=== PATIENT | female | born 1995 | race Caucasian/White ===

== ENCOUNTER 2017-12-30 07:27 | Emergency (ER) | payer OTHER, SELFPAY ==
[2017-12-30] MEDS ORDERED: ETOMIDATE 20 MG/10 ML VIAL IV ONE (07:28)
[2017-12-30] MEDS ORDERED: NA CHLORIDE 0.9% 1,000 ML ONE ×2 (07:34→08:43)
[2017-12-30] MEDS ORDERED: RSI MEDICATION KIT IV ONE (07:35)
[2017-12-30] MEDS ORDERED: MIDAZOLAM HCL 2 MG/2 ML INJ ONE ×4 (07:36→11:16)
[2017-12-30] MEDS ORDERED: ROCURONIUM 50 MG/5 ML VIAL IV ONE (07:39)
--- NOTE | 2017-12-30 08:08 | ER ---
Nurse's Notes [facility] Name: Mitra Melendez Age: 22 yrs Sex: Female : 1995 Arrival Date: 12/30/2017 Time: 07:30 Bed 3 Private MD: Diagnosis: Altered mental status, unspecified;Abuse of non-psychoactive substances; related conditions, unspecified, first trimester;Respiratory failure, unspecified;Elevated white blood cell count;Hypokalemia;Pneumonia due to other specified bacteria-right lower lobe, aspiration Presentation: 12/30 07:30 Presenting complaint: EMS states: Found by PD unresponsive, snoring respirations, blood jl7 coming out of her mouth. Narcan on scene, no response. Appeared to have a seizure on the way over, 2 mg Lorazepam IV administered. Transition of care: patient was not received from another setting of care. Onset of symptoms was December 30, 2017. Care prior to arrival: Medication(s) given: Narcan \\T\\ 2 mg Ativan IV initiated. 20 GA, in the right antecubital area, Glucose check: 141. 07:30 Method Of Arrival: EMS: [facility] 7 07:30 Acuity: ELBERT 1 jl7 10:43 Initial Sepsis Screen: Does the patient meet any 2 criteria? HR > 90 bpm. No. Patient's tw2 initial sepsis screen is negative. Does the patient have a suspected source of infection? No. Patient's initial sepsis screen is negative. 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 - Social history:: Smoking status: unknown Patient uses street drugs, "synthetic marijuana" per mother at bedside at this time. - Family history:: not pertinent. Screenin:43 Abuse screen: Denies threats or abuse. Nutritional screening: No deficits noted. tw2 Tuberculosis screening: No symptoms or risk factors identified. Fall Risk None identified. Assessment: 07:30 General: Appears slender, unkempt, Behavior is unresponsive. Pain: Unable to use pain tw2 scale. Patient is unresponsive. Neuro: Level of Consciousness is unresponsive, Oriented to none. Cardiovascular: Heart tones S1 S2 Capillary refill < 3 seconds. Respiratory: Airway is compromised Respiratory effort is shallow, Respiratory pattern is snoring Sputum is blood streaked, Breath sounds are clear bilaterally. GI: Abdomen is flat, Bowel sounds present X 4 quads. : No signs and/or symptoms were reported regarding the genitourinary system. Derm: Skin is intact, is healthy with good turgor, Skin temperature is warm. 08:37 Reassessment: pt still moving around, agitated, propofol bumped up to 20 mcg/kg at this iw time. will continue to monitor. 09:00 Reassessment: Patient appears in no apparent distress at this time. Patient and/or tw2 family updated on plan of care and expected duration. Pain level reassessed. 10:05 Reassessment: pt appears agitated, see MAR for medications administered, will continue tw2 to monitor. 10:42 Reassessment: Patient appears in no apparent distress at this time. Patient and/or tw2 family updated on plan of care and expected duration. Pain level reassessed. 10:56 Reassessment: pt agitated, provider notified, medicated as ordered. pt pulled OG tube tw2 out, per provider do not replace at this time., will continue to monitor. 11:30 Reassessment: Patient appears in no apparent distress at this time. Patient and/or tw2 family updated on plan of care and expected duration. Pain level reassessed. Vital Signs: 07:30 BP 151 / 90; Pulse 145; Resp 15 S; Pulse Ox 91% on R/A; jl7 07:32 Temp 97.5(A); tw2 08:24 Weight 49.9 kg (R); tw2 08:38 BP 142 / 74; Pulse 119; Resp 20; Pulse Ox 96% on ETT vent; tw2 09:00 BP 111 / 58; Pulse 106; Resp 18; Pulse Ox 100% on 50% FiO2 ETT vent; tw2 09:35 BP 111 / 48; Pulse 111; Resp 18; Pulse Ox 100% on 50% FiO2 ETT vent; tw2 09:50 BP 113 / 51; Pulse 100; Resp 18; Pulse Ox 100% on 50% FiO2 ETT vent; tw2 10:00 BP 136 / 75; Pulse 100; Resp 18; Pulse Ox 100% on 50% FiO2 ETT vent; tw2 10:15 BP 104 / 52; Pulse 98; Resp 18; Pulse Ox 100% on 50% FiO2 ETT vent; tw2 10:39 BP 110 / 74; Pulse 93; Resp 18; Pulse Ox 100% on 50% FiO2 ETT vent; tw2 11:23 BP 126 / 76; Pulse 52; Resp 17; Pulse Ox 100% on 50% FiO2 ETT vent; tw2 08:38 SIMV, rate 14, 500 tidal, 50FIO2 tw2 ED Course: 07:30 Patient arrived in ED. tw2 07:30 Reyes Galeana, RN is Primary Nurse. jl7 07:30 Arm band placed on right wrist. jl7 07:30 Placed in gown. tw2 07:33 Triage completed. jl7 07:44 EKG done, by neurophysiology tech. reviewed by Chico Devi MD. tc 07:46 Chico Devi MD is Attending Physician. vipul 08:00 No provider procedures requiring assistance completed. Maintain EMS IV. Dressing tw2 intact. Good blood return noted. Site clean \\T\\ dry. Gauge \\T\\ site: 20 g RIGHT ac. 08:01 Szymanski cath inserted, using sterile technique, 18 Fr., by az, balloon inflated, to tw2 gravity drainage, urine specimen collected. OG 12 fr inserted by me, confirmed by auscultation, connected to low intermittent suction. 08:06 Asuncion Rosales MD is Hospitalizing Provider. vipul 08:08 Radiology exam delayed due to lab results not completed at this time. (HCG). aa4 08:08 X-ray completed. PT WAS UNRESPONSIVE. jb2 08:09 XRAY Chest (1 view) In Process Unspecified. EDMS 08:17 CT Head C Spine: sheild please In Process Unspecified. EDMS 09:02 transfer Awaiting: report called to Karen Wong RN at [facility]. tw2 09:31 Note: waiting for pt's bladder to be filled through szymanski- nurse to call when ready- hr.aa4 09:55 [address] Trimest Single 1St Fetus In Process Unspecified. EDMS 10:38 One-on-one care X 180 minutes. tw2 11:23 Patient transferred, IV remains in place. tw2 Administered Medications: 07:39 Drug: Versed 4 mg Route: IVP; Site: right antecubital; jl7 08:35 Follow up: Response: No adverse reaction iw 07:40 Drug: Etomidate 20 mg Route: IVP; Site: right antecubital; jl7 08:35 Follow up: Response: No adverse reaction iw 07:40 Drug: Rocuronium 30 mg Route: IVP; Site: right antecubital; jl7 08:36 Follow up: Response: No adverse reaction iw 08:00 Drug: NS 0.9% (30 ml/kg) 30 ml/kg Route: IV; Rate: bolus; Site: right antecubital; tw2 10:36 Follow up: Response: No adverse reaction; IV Status: Completed infusion; IV Intake: tw2 1500ml 08:22 CANCELLED (Duplicate Order): Rocephin - (cefTRIAXone) 1 grams IVPB once over 30 mins; vipul (mix in 50 mL NS) 08:25 Drug: Versed 4 mg Route: IVP; Site: left antecubital; iw 09:03 Follow up: Response: No adverse reaction tw2 08:29 CANCELLED (Duplicate Order): Versed 4 mg IVP once vipul 08:30 Drug: Propofol 5 mcg/kg/min Route: IV; Rate: calculated rate; Site: right antecubital; iw 11:30 Follow up: IV Status: Infusion continued upon transfer jl7 08:49 Drug: Potassium Chloride 20 mEq Route: IV; Rate: per protocol; Site: left antecubital; tw2 10:57 Follow up: Response: No adverse reaction; IV Status: Completed infusion tw2 08:54 Drug: Propofol 100 mg Route: IVP; Site: right antecubital; dm5 10:05 Follow up: Response: No adverse reaction tw2 09:05 Drug: Zosyn 3.375 grams Route: IVPB; Infused Over: 60 mins; Site: left antecubital; tw2 10:07 Follow up: Response: No adverse reaction; IV Status: Completed infusion tw2 09:10 Drug: Thiamine 100 mg Route: IV; Rate: bolus; Site: left antecubital; tw2 09:10 Follow up: Response: No adverse reaction; IV Status: Completed infusion tw2 10:05 Drug: Propofol 60 mg {Note: pt agitated and fighting vent.} Route: IVP; Site: right tw2 antecubital; 10:34 Follow up: Response: No adverse reaction; No change in condition tw2 10:15 Drug: Versed 4 mg Route: IVP; Site: left antecubital; tw2 10:35 Follow up: Response: No adverse reaction; No change in condition tw2 10:15 Drug: Propofol 30 mg Route: IVP; Site: right antecubital; tw2 10:35 Follow up: Response: No adverse reaction; Marked relief of symptoms tw2 10:26 Drug: NS 0.9% with KCl 20 mEq/L 1000 ml Route: IV; Rate: 125 ml/hr; Site: left tw2 antecubital; 11:21 Follow up: IV Status: Infusion continued upon transfer tw2 10:57 Drug: Propofol 30 mg Route: IVP; Site: right antecubital; tw2 11:10 Follow up: Response: No adverse reaction; Marked relief of symptoms tw2 11:20 Drug: Versed 4 mg Route: IVP; Site: left antecubital; tw2 11:22 Follow up: Response: No adverse reaction tw2 11:21 Drug: Propofol 30 mg Route: IVP; Site: right antecubital; tw2 11:22 Follow up: Response: No adverse reaction tw2 Point of Care Testing: Blood Glucose: 07:30 Blood Glucose: 205 mg/dL; jl7 Ranges: Intake: 10:36 IV: 1500ml; Total: 1500ml. tw2 Outcome: 08:08 Decision to Hospitalize by Provider. vipul 08:21 ER care complete, transfer ordered by . vipul 11:23 Transferred by ground EMS to [facility]. tw2 11:23 Condition: stable 11:23 Instructed on the need for transfer. 11:34 Patient left the ED. tw2 Addendum: 01/04/2018 10:42 Addendum: Culture Results: Positive blood culture. Phone call Attempt #1 called [facility] i w was notified that pt was discharged home shortly after being admitted. Signatures: Dispatcher [employer] Naomi Bro, RN RN dm5 Chico Devi MD MD cha Buechter, Jesse jb2 Ladonna Gross RN RN Rebecca Umanzor aa4 Sandra Chatterjee, director electrical engineering EKG Ttc Michelle Polanco RN RN tw2 Reyes Galeana RN RN jl7 Corrections: (The following items were deleted from the chart) 04/23 08:56 08:38 BP 142 / 74; Pulse 119bpm; Resp 20bpm; Pulse Ox 96% ET / Ventilator; SIMV, rate tw2 14, 500 tidal; iw 10:06 09:05 Zosyn 3.375 grams IVPB in left femoral over 60 mins tw2 tw2 11:00 10:56 Reassessment: pt agitated, provider notified, medicated as ordered. will continue tw2 to monitor tw2
--- NOTE | 2017-12-30 08:09 | EDPHYS ---
Physician Documentation [facility] Name: Mitra Melendez Age: 22 yrs Sex: Female : 1995 Arrival Date: 12/30/2017 Time: 07:30 Bed 3 Private MD: ED Physician Chico Devi HPI: 12/30 07:58 This 26 yrs old Female presents to ER via EMS with complaints of Unresponsive.vipul 07:58 The patient presents with confusion, decreased mental status, decreased responsiveness. vipul Onset: The symptoms/episode began/occurred just prior to arrival, this morning. Possible causes: unknown. Associated signs and symptoms: Pertinent positives: nausea. Current symptoms: In the emergency department the patient's symptoms are unchanged from the initial presentation. Patient's baseline: Neuro: alert and fully oriented. Unable to obtain HPI due to obtunded state. 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 - Social history:: Smoking status: unknown Patient uses street drugs, "synthetic marijuana" per mother at bedside at this time. - Family history:: not pertinent. ROS: 08:01 Respiratory: Positive for cough, shortness of breath, airway nprotected. vipul 08:01 Unable to obtain ROS due to obtunded state. 08:12 Eyes: Negative for injury, pain, redness, and discharge. vipul 08:12 ENT: Positive for difficulty handling secretions, difficulty swallowing. 08:12 Cardiovascular: Positive for palpitations. 08:12 Abdomen/GI: Negative for abdominal pain. 08:12 MS/extremity: Negative for acute changes. Exam: 08:01 Head/Face: Normocephalic, atraumatic. Eyes: Pupils equal round and reactive to light, vipul extra-ocular motions intact. Lids and lashes normal. Conjunctiva and sclera are non-icteric and not injected. Cornea within normal limits. Periorbital areas with no swelling, redness, or edema. Neck: Trachea midline, no thyromegaly or masses palpated, and no cervical lymphadenopathy. Supple, full range of motion without nuchal rigidity, or vertebral point tenderness. No Meningismus. Chest/axilla: Normal chest wall appearance and motion. Nontender with no deformity. No lesions are appreciated. Abdomen/GI: Soft, non-tender, with normal bowel sounds. No distension or tympany. No guarding or rebound. No evidence of tenderness throughout. Back: No spinal tenderness. No costovertebral tenderness. Full range of motion. Skin: Warm, dry with normal turgor. Normal color with no rashes, no lesions, and no evidence of cellulitis. MS/ Extremity: Pulses equal, no cyanosis. Neurovascular intact. Full, normal range of motion. 08:01 Cardiovascular: Rate: tachycardic, Rhythm: regular, Pulses: Pulses are 4+ in bilateral radial, brachial, femoral, popliteal, posterior tibial and and dorsalis pedis arteries.. Heart sounds: normal, Edema: is not appreciated, JVD: is not appreciated. Vital Signs: 07:30 BP 151 / 90; Pulse 145; Resp 15 S; Pulse Ox 91% on R/A; jl7 07:32 Temp 97.5(A); tw2 08:24 Weight 49.9 kg (R); tw2 08:38 BP 142 / 74; Pulse 119; Resp 20; Pulse Ox 96% on ETT vent; tw2 09:00 BP 111 / 58; Pulse 106; Resp 18; Pulse Ox 100% on 50% FiO2 ETT vent; tw2 09:35 BP 111 / 48; Pulse 111; Resp 18; Pulse Ox 100% on 50% FiO2 ETT vent; tw2 09:50 BP 113 / 51; Pulse 100; Resp 18; Pulse Ox 100% on 50% FiO2 ETT vent; tw2 10:00 BP 136 / 75; Pulse 100; Resp 18; Pulse Ox 100% on 50% FiO2 ETT vent; tw2 10:15 BP 104 / 52; Pulse 98; Resp 18; Pulse Ox 100% on 50% FiO2 ETT vent; tw2 10:39 BP 110 / 74; Pulse 93; Resp 18; Pulse Ox 100% on 50% FiO2 ETT vent; tw2 11:23 BP 126 / 76; Pulse 52; Resp 17; Pulse Ox 100% on 50% FiO2 ETT vent; tw2 08:38 SIMV, rate 14, 500 tidal, 50FIO2 tw2 Procedures: 08:15 Intubation: Ventilated with 100% NRB prior to procedure. Intubated orally using # 3 vipul Kane blade with 7.5 mm ETT. was successful on first attempt. Ventilated with Ambu bag. Placement verified by CXR, CO2 detector with (+) color change, auscultating bilateral breath sounds, O2 saturation after procedure was 100 %. MDM: 07:46 Patient medically screened. [facility] 08:04 Data reviewed: vital signs, nurses notes, EMS record, lab test result(s), EKG, [facility] radiologic studies, CT scan, plain films. 12/30 07:30 Order name: glucometer results - FOR PT WITH NO ID tw2 12/30 07:46 Order name: Basic Metabolic Panel; Complete Time: 08:40 [facility] 12/30 07:46 Order name: BNP; Complete Time: 08:40 [facility] 12/30 07:46 Order name: CBC with Diff; Complete Time: 09:36 [facility] 12/30 07:46 Order name: Ckmb; Complete Time: 08:40 [facility] 12/30 07:46 Order name: CPK; Complete Time: 08:40 [facility] 12/30 07:46 Order name: LFT's; Complete Time: 08:40 [facility] 12/30 07:46 Order name: Magnesium; Complete Time: 08:40 [facility] 12/30 07:46 Order name: PT-INR; Complete Time: 08:23 [facility] 12/30 07:46 Order name: Ptt, Activated; Complete Time: 08:23 [facility] 12/30 07:46 Order name: Troponin (emerg Dept Use Only); Complete Time: 08:40 [facility] 12/30 07:46 Order name: Urine Drug Screen; Complete Time: 08:40 [facility] 12/30 07:55 Order name: Acetaminophen [facility] 12/30 07:55 Order name: ETOH Level [facility] 12/30 07:46 Order name: XRAY Chest (1 view); Complete Time: 09:36 [facility] 12/30 07:55 Order name: Salicylate [facility] 12/30 07:55 Order name: Blood Culture Adult (2) [facility] 12/30 07:55 Order name: ABG; Complete Time: 09:36 [facility] 12/30 07:56 Order name: Lipase [facility] 12/30 08:00 Order name: CT Head C Spine: sheild please; Complete Time: 09:36 [facility] 12/30 08:04 Order name: Quantitative Hcg [facility] 12/30 08:04 Order name: Abo/rh Typing [facility] 12/30 08:06 Order name: Urine Dipstick--Ancillary (enter results); Complete Time: 08:23 12/30 08:06 Order name: Urine --Ancillary (enter results); Complete Time: 08:23 12/30 09:21 Order name: Manual Differential; Complete Time: 09:36 [facility] 12/30 09:55 Order name: 1St Trimest Single 1St Fetus [facility] 12/30 07:46 Order name: Urine Test (obtain specimen); Complete Time: 10:36 [facility] 12/30 07:46 Order name: EKG; Complete Time: 07:47 [facility] 12/30 07:46 Order name: Cardiac monitoring; Complete Time: 09:42 [facility] 12/30 07:46 Order name: EKG - Nurse/Tech; Complete Time: 09:42 [facility] 12/30 07:46 Order name: IV Saline Lock; Complete Time: 09:42 [facility] 12/30 07:46 Order name: Labs collected and sent; Complete Time: 09:42 [facility] 12/30 07:46 Order name: O2 Per Protocol; Complete Time: 09:42 [facility] 12/30 07:46 Order name: O2 Sat Monitoring; Complete Time: 09:42 [facility] 12/30 07:46 Order name: Urine Dipstick-Ancillary (obtain specimen); Complete Time: 09:42 [facility] 12/30 07:47 Order name: Glucose Level; Complete Time: 07:47 [facility] 12/30 07:47 Order name: Duenas; Complete Time: 08:06 [facility] 12/30 07:47 Order name: NG Tube; Complete Time: 08:06 [facility] 12/30 08:12 Order name: CONS Physician Consult [facility] 12/30 08:12 Order name: CONS Physician Consult [facility] 12/30 08:04 Order name: NPO; Complete Time: 08:06 [facility] Administered Medications: 07:39 Drug: Versed 4 mg Route: IVP; Site: right antecubital; jl7 08:35 Follow up: Response: No adverse reaction iw 07:40 Drug: Etomidate 20 mg Route: IVP; Site: right antecubital; jl7 08:35 Follow up: Response: No adverse reaction iw 07:40 Drug: Rocuronium 30 mg Route: IVP; Site: right antecubital; jl7 08:36 Follow up: Response: No adverse reaction iw 08:00 Drug: NS 0.9% (30 ml/kg) 30 ml/kg Route: IV; Rate: bolus; Site: right antecubital; tw2 10:36 Follow up: Response: No adverse reaction; IV Status: Completed infusion; IV Intake: tw2 1500ml 08:22 CANCELLED (Duplicate Order): Rocephin - (cefTRIAXone) 1 grams IVPB once over 30 mins; vipul (mix in 50 mL NS) 08:25 Drug: Versed 4 mg Route: IVP; Site: left antecubital; iw 09:03 Follow up: Response: No adverse reaction tw2 08:29 CANCELLED (Duplicate Order): Versed 4 mg IVP once vipul 08:30 Drug: Propofol 5 mcg/kg/min Route: IV; Rate: calculated rate; Site: right antecubital; iw 11:30 Follow up: IV Status: Infusion continued upon transfer jl7 08:49 Drug: Potassium Chloride 20 mEq Route: IV; Rate: per protocol; Site: left antecubital; tw2 10:57 Follow up: Response: No adverse reaction; IV Status: Completed infusion tw2 08:54 Drug: Propofol 100 mg Route: IVP; Site: right antecubital; dm5 10:05 Follow up: Response: No adverse reaction tw2 09:05 Drug: Zosyn 3.375 grams Route: IVPB; Infused Over: 60 mins; Site: left antecubital; tw2 10:07 Follow up: Response: No adverse reaction; IV Status: Completed infusion tw2 09:10 Drug: Thiamine 100 mg Route: IV; Rate: bolus; Site: left antecubital; tw2 09:10 Follow up: Response: No adverse reaction; IV Status: Completed infusion tw2 10:05 Drug: Propofol 60 mg {Note: pt agitated and fighting vent.} Route: IVP; Site: right tw2 antecubital; 10:34 Follow up: Response: No adverse reaction; No change in condition tw2 10:15 Drug: Versed 4 mg Route: IVP; Site: left antecubital; tw2 10:35 Follow up: Response: No adverse reaction; No change in condition tw2 10:15 Drug: Propofol 30 mg Route: IVP; Site: right antecubital; tw2 10:35 Follow up: Response: No adverse reaction; Marked relief of symptoms tw2 10:26 Drug: NS 0.9% with KCl 20 mEq/L 1000 ml Route: IV; Rate: 125 ml/hr; Site: left tw2 antecubital; 11:21 Follow up: IV Status: Infusion continued upon transfer tw2 10:57 Drug: Propofol 30 mg Route: IVP; Site: right antecubital; tw2 11:10 Follow up: Response: No adverse reaction; Marked relief of symptoms tw2 11:20 Drug: Versed 4 mg Route: IVP; Site: left antecubital; tw2 11:22 Follow up: Response: No adverse reaction tw2 11:21 Drug: Propofol 30 mg Route: IVP; Site: right antecubital; tw2 11:22 Follow up: Response: No adverse reaction tw2 Point of Care Testing: Blood Glucose: 07:30 Blood Glucose: 205 mg/dL; jl7 Ranges: Critical Glucose Levels:Adult <50 mg/dl or >400 mg/dl <40 mg/dl or >180 mg/dl Disposition: 18 08:21 Transfer ordered to [facility]. Diagnosis are Altered mental status, unspecified, Abuse of non-psychoactive substances, related conditions, unspecified, first trimester, Respiratory failure, unspecified, Elevated white blood cell count, Hypokalemia, Pneumonia due to other specified bacteria - right lower lobe, aspiration. - Reason for transfer: Higher level of care. - Accepting physician is to [facility], [facility]. - Condition is Fair. - Problem is new. - Symptoms have improved. Signatures: Dispatcher [employer] EDMS Naomi Lynch, RN RN dm5 Chico Devi MD MD cha Williams, Irene, RN DANI iw Michelle Polanco RN RN tw2 Reyes Galeana RN RN jl7 Corrections: (The following items were deleted from the chart) 07:47 07:46 URINE DRUG SCREEN+CHEM UR.LAB.BRZ ordered. EDMS EDMS 08:10 07:56 Head C Spine Cap Wo Con+CT.RAD.BRZ ordered. EDMS EDMS 08:22 07:55 Rocephin - (cefTRIAXone) 1 grams IVPB once over 30 mins; (mix in 50 mL NS) vipul ordered. vipul 08 08:24 Versed 4 mg IVP once ordered. tw2 vipul 09:54 08:04 Transvaginal Ob+US.RAD.BRZ ordered. EDMS EDMS 09:55 09:54 Matter Eval Tm 1 ordered. EDMS EDMS
[2017-12-30 08:18] LABS: Absolute Monocytes 1.5 K/uL (0.1-1.3); Absolute Neutrophil 15.9 K/uL (1.8-8.0); Basophils % 0.4 % (0-1.3); Eosinophils % 0.7 % (0-4.4); Lymphocytes % 22.1 % (15.3-44.8); MCH 30.5 pg (27.0-35.0); MCV 94.6 fL (80-100); MPV 9.4 fL (7.6-11.3); Monocytes % 6.7 % (3.3-12.3); RBC Red Blood Cell Count 4.12 M/uL (3.86-4.86)
[2017-12-30 08:21] LABS: Protime INR 0.92
[2017-12-30 08:21] LABS: Urine Blood 1+ (NEG); Urine Glucose NEGATIVE (NEG); Urine Protein 2+ (NEG); Urine Specific Gravity >1.030 (1.005-1.030)
[2017-12-30 08:22] LABS: Glucose Level 222 mg/dL (65-120)
[2017-12-30] MEDS ORDERED: PROPOFOL 1,000 MG/100 ML VIAL IV ONE (08:23)
[2017-12-30 08:28] LABS: ALT/SGPT 27 IU/L (10-60); AST/SGOT 36 IU/L (10-42); Albumin 4.4 g/dL (3.2-5.5); Alkaline Phosphatase 55 IU/L (42-121); BUN Blood Urea Nitrogen 15 mg/dL (6-20); Bilirubin Direct 0.2 mg/dL (0-0.2); Bilirubin Total 1.3 mg/dL (0.3-1.2); Creatine Phosphokinase 63 IU/L (22-269); Magnesium 2.2 mg/dL (1.8-2.5); Protein, Total 7.4 g/dL (6.0-8.3)
[2017-12-30 08:29] LABS: Barbiturates NEGATIVE; Benzodiazepines POSITIVE; Cocaine NEGATIVE; METHAMPHETAM NEGATIVE; Opiates NEGATIVE
[2017-12-30 08:30] LABS: Phencyclidine ND; THC Cannibis ND
[2017-12-30 08:31] LABS: CKMB Creatine Kinase MB 1.5 ng/ml (0.3-4.0)
[2017-12-30 08:32] LABS: Sodium Level 138 mEq/L (135-145)
[2017-12-30 08:33] LABS: Bicarbonate 13 mEq/L (21-31)
--- NOTE | 2017-12-30 08:42 | RAD REPORT ---
EXAM DESCRIPTION: CT - Head C Spine Mpr Wo Con - 12/30/2017 8:17 am CLINICAL HISTORY: Head and neck injury status post fall. Unresponsive COMPARISON: None. TECHNIQUE: Computed axial tomography of the head and cervical spine was obtained. Sagittal and coronal reconstruction was performed. All CT scans are performed using dose optimization technique as appropriate and may include automated exposure control or mA/KV adjustment according to patient size. FINDINGS: An intracranial bleed is not seen. The ventricles are normal in caliber. An extra-axial fl uid collection is not noted. A cervical fracture is not visualized. No dislocation is noted. Endotracheal nasogastric tubes have been placed IMPRESSION: No acute intracranial abnormality is seen. A cervical fracture is not visualized. If the patient continues to have symptoms to suggest intracra nial /spinal cord pathology then MRI would be recommended
[2017-12-30] MEDS ORDERED: KCL 20 MEQ/100 mL IVPB 20 MEQ/100 ML BAG IV ONE (08:43)
[2017-12-30] MEDS ORDERED: THIAMINE 200 MG/2 ML INJ ONE (09:06)
[2017-12-30] MEDS ORDERED: PIPER/TAZO/NS 3.375gm 3.375 GM/100 ML BAG ONE (09:06)
[2017-12-30 09:10] LABS: Arterial Blood Carboxyhemoglob 2.8 % (0-1.5); Blood Gas Oxyhemoglobin 87.1 % (94-97); Blood O2 Saturation 90.4 % (92-98.5)
--- NOTE | 2017-12-30 09:13 | RAD REPORT ---
EXAM DESCRIPTION: [place] Single View12/30/2017 8:11 am CLINICAL HISTORY: Shortness of breath COMPARISON: none FINDINGS: Endotracheal and nasogastric tubes are in good position. The right lung base is hazy. The left lung appears clear. The heart is normal size IMPRESSION: The right lung base is hazy perhaps secondary to aspiration
[2017-12-30 09:21] LABS: Blood Morphology Comment NOT SEEN (NOT SEEN); Platelet Estimate ADEQ
[2017-12-30 09:24] LABS: Lipase 15 U/L (22-51)
[2017-12-30 09:46] LABS: Salicylates Level < 4.0 mg/dl (<30)
--- NOTE | 2017-12-30 10:07 | EKG ---
Test Date: 2017-12-30 Test Time: 07:37:58 Auto Seat Cover Installer: KINSEY MEASUREMENT RESULTS: Intervals: Rate: 119 PA: QRSD: 86 QT: 320 QTc: 450 [place]: P: PA: QRS: 89 T: 65 INTERPRETIVE STATEMENTS: Sinus tachycardia Otherwise normal ECG No previous ECG available for comparison Electronically Signed On 12-30-17 10:06:55 CDT by Roberto Alvarez
[2017-12-30 10:08] LABS: Alcohol Serum/Plasma < 10 mg/dl
[2017-12-30] MEDS ORDERED: NS KCL 20MEQ 1,000 ML IV ONE (10:09)
--- NOTE | 2017-12-30 11:31 | RAD REPORT ---
EXAM DESCRIPTION: US - 1St Trimest Single 1St Fetus - 12/30/2017 10:15 am CLINICAL HISTORY: with abdominal pain. COMPARISON: None. TECHNIQUE: A limited examination was performed to assess for viability. FINDINGS: A single live intrauterine is in transverse presentation. Fuig-rump length crown-rump length 7.9 cm. The placenta is anterior. Amniotic fluid is within normal limits. Cardiac activity is 181 beats per minute. Cervical length measures 3.3 cm. A subchorionic bleed is not seen. A retroplacental hemorrhag e is not noted. A hypoechoic mass is present within the placenta measuring 3 cm. It is vascular. IMPRESSION: 1. A single live intrauterine in transverse presentation. 2. The estimated gestational age 13 weeks 6 days. 3. The amniotic fluid is within normal limits. A subchorionic/retroplacental bleed is not seen. 4. A 3 cm hypoechoic mass within the placenta may represent a chorioangioma 5. It is recommended that the patient have an ultrasound in approximately 5 weeks to reassess the mimi centa. At this time a survey could be obtained.
== END 2017-12-30 11:34 | disposition short-term general hospital (02) ==
LOC: EDBD 07:27 → ER 07:27 → MERGE 07:27 → ER 11:34
PROC: 0BH17EZ Insertion of Endotracheal Airway into Trachea, Via Natural or Artificial Opening (ICD-10-PCS; principal; 2017-12-30)
PROC: 5A1935Z Respiratory Ventilation, Less than 24 Consecutive Hours (ICD-10-PCS; 2017-12-30)
DX: J96.90 Respiratory failure, unspecified, unspecified whether with hypoxia or hypercapnia (principal); F55.8 Abuse of other non-psychoactive substances; J15.8 Pneumonia due to other specified bacteria; R41.82 Altered mental status, unspecified; D72.829 Elevated white blood cell count, unspecified; E87.6 Hypokalemia; Z3A.13 13 weeks gestation of pregnancy
CPT/HCPCS: 31500; 36415; 51702; 70450; 71045; 72125; 76801; 80048; 80076; 80307; 80320; 80329; 81003; 81025; 82550; 82553; 82805; 82962; 83690; 83735; 83880; 84484; 84702; 85025; 85610; 85730; 86900; 86901; 87040; 87205; 93005; 94002; 99291; J2250; J2543; J3411; J7030

== ENCOUNTER → 2018-02-26 | Day surgery (SDC) | payer OTHER ==
[~2018-02-26] MED LIST: BUPIVACAINE 0.5% PF 10 ML VIAL ONE; CEFAZOLIN/SWI 1gm 1 GM/10 ML SYR ONE; LIDOCAINE 1% MPF 5 ML VIAL ONE; MUPIROCIN 2% OINT 22GM TUBE TOP ONE; PROPOFOL 200 MG/20 ML VIAL IV ONE; Ringers Lactate 1,000 ML IV ONE
[2018-02-26 08:11] LABS: Absolute Lymphocytes (CBC) 1.3 K/uL (0.7-4.9); Absolute Monocytes 0.4 K/uL (0.1-1.3); Absolute Neutrophil 7.9 K/uL (1.8-8.0); Basophils % 0.2 % (0-1.3); Eosinophils % 1.7 % (0-4.4); Hematocrit 39.7 % (36.0-45.0); Lymphocytes % 13.4 % (15.3-44.8); MCH 30.7 pg (27.0-35.0); MCV 91.6 fL (80-100); MPV 9.1 fL (7.6-11.3); Monocytes % 3.8 % (3.3-12.3); RBC Red Blood Cell Count 4.33 M/uL (3.86-4.86)
[2018-02-26 08:14] LABS: BUN Blood Urea Nitrogen 14 mg/dL (7-18); Bicarbonate 23 mmol/L (21-32); Glucose Level 80 mg/dL (74-106); Potassium 3.8 mmol/L (3.5-5.1); Sodium Level 138 mmol/L (136-145)
--- NOTE | 2018-02-26 09:23 | P.BOP ---
Preoperative diagnosis: cellulitis, abscess left 4th finger Postoperative diagnosis: same Primary procedure: Incision and drainage with subQ debridement of left 4th finger abscess Estimated blood loss: 2cc Specimen: culture Findings: as above Anesthesia: MAC Complications: None Transferred to: Recovery Room Condition: Good
--- NOTE | 2018-02-26 20:02 | OP ---
Date of Procedure: 02/26/2018 Surgeon: Ilir Moses MD Preoperative Diagnosis: Cellulitis and abscess of left 4th finger. Postoperative Diagnosis: Cellulitis and abscess of left 4th finger. Procedure: Incision and drainage with subcutaneous debridement of a left 4th finger abscess about 2 x 2 cm. Estimated Blood Loss: Less than 2 cc. Specimen: Devitalized tissue and culture. Anesthesia: Sedation plus local anesthetic. Indications: This is the case of a 22-year-old patient with cellulitis of the left finger. She stat es, she was biting in that area, eventually developed this redness that is not improving and getting worse. The patient is 23 weeks . The area is tender, so we offered her incision and drainag e and debridement of the abscess with benefits and risks including, but are not limited to infection, bleeding, damage to adjacent structures, anesthesia complication, nonhealing wound, TN, and even jack th. She also understands this may not relieve any symptoms. She might need more than one surgical i ntervention. She understands she will require wound care. She has to keep this area clean until hea led, not putting this in dirty aguilar, only running water. She is also advised to discuss this case with her brick tosser. She is going to receive the Ultracet. She was advised the importance of cont rol over that Ultracet since she is going to be tender, and then after that, she can use just regular Tylenol. Once again, she was advised on this by the brick tosser. She understood and signed a cons ent. Description Of Procedure: The patient was brought to the operating room, placed in supine position. Anesthesia was done without complication. A time-out was called. Left hand was prepped and draped in usual sterile fashion. Using a knife and Bovie cauterizer, we proceeded to remove all the area of devitalized tissue that led us access into an abscess. The area was irrigated. Loculations were op ened and drained. Bone was not exposed. Tendon was not exposed. Area was irrigated. Hemostasis wa s obtained. Cultures previously obtained were sent. The area was covered with a wet-to-dry dressing . The patient tolerated the procedure well. The patient was sent to recovery in stable condition. YUMIKO/LADY Voice ID: [id number] Report ID: [id number]
--- NOTE | 2018-02-26 20:14 | DS ---
Diagnosis: Abscess and cellulitis of the left 4th finger. Procedure: Incision and drainage and subcutaneous debridement of the left 4th finger abscess. Disposition: Home. Activity: As tolerated. No heavy lifting. Followup: Follow up in my office in 1 week. Call for appointment at [phone]. Medications: Include Ultracet q.4 hours p.r.n. pain, Bactroban to the area twice a day. Discharge Instructions: She was advised to keep the area clean at all time, only running water to pu t in that finger, not just put in this on dirty water. She also understands the importance of narcot ics. She is going to be given Ultracet because of the pain, but trying to minimize the use of this i f possible. The patient's family will be helping with the dressing changes. Follow up in my office in 1 week. EARNEST Voice ID: [id number] Report ID: [id number]
== END | disposition home or self-care (01) ==
LOC: OR 07:28
PROVIDERS: ATTEND Surgery
PROC: 0JBK0ZZ Excision of Left Hand Subcutaneous Tissue and Fascia, Open Approach (ICD-10-PCS; 2018-02-26)
PROC: 0H9GXZZ Drainage of Left Hand Skin, External Approach (ICD-10-PCS; principal; 2018-02-26 09:15)
DX: L02.512 Cutaneous abscess of left hand (principal); L03.012 Cellulitis of left finger
CPT/HCPCS: 36415; 80048; 85025; 87070; 87075; 87205; 88304; 88305; J0690

== ENCOUNTER 2018-06-03 16:49 | Emergency (ER) | payer OTHER ==
--- OUTSIDE RECORDS SUMMARY | 2018-06-03 16:51 | XMS REPORT ---
:1995 Author Organization eClinicalWorks Care Team Providers Name Role Phone Reina Mitchellh Provider Role Unavailable Allergies, Adverse Reactions, Alerts Substance Reaction Event Type N.K.D.A. Info Not Available Non Drug Allergy Problems Problem Type Condition Code Onset Dates Condition Status Assessment 23 weeks gestation of Z3A.23 Active Assessment Paronychia of finger of left hand L03.012 Active Medications Medication Code System Code Instructions Start Date End Date Status Dosage [facility] [address] - Orally Once a Active 1 tablet 1 day Results No Known Results Summary Purpose eClinicalWorks Submission
[2018-06-03] MEDS ORDERED: ALBUTEROL 2.5 MG/3 ML NEB SOL ONE (17:33)
[2018-06-03] MEDS ORDERED: predniSONE 20 MG TAB ONE (17:33)
--- NOTE | 2018-06-03 17:55 | ER ---
Nurse's Notes [facility] Name: Mitra Melendez Age: 22 yrs Sex: Female : 1995 Arrival Date: 06/03/2018 Time: 16:51 Bed Treatment Private MD: Frankie De La Vega S Diagnosis: Bronchitis, not specified as acute or chronic Presentation: 06/03 17:03 Presenting complaint: Patient states: cough and sore throat x 2 days. 36 weeks hb . Transition of care: patient was not received from another setting of care. Onset of symptoms was June 02, 2018. Risk Assessment: Do you want to hurt yourself or someone else? Patient reports no desire to harm self or others. 17:03 Method Of Arrival: Ambulatory hb 17:03 Acuity: ELBERT 4 hb 18:17 Initial Sepsis Screen: Does the patient meet any 2 criteria? No. Patient's initial aj sepsis screen is negative. Does the patient have a suspected source of infection? No. Patient's initial sepsis screen is negative. Care prior to arrival: None. Historical: - Allergies: 17:05 No Known Allergies; hb - Home Meds: 17:05 Vitamin Oral [Active]; hb - PMHx: 17:05 None; hb - PSHx: 17:05 None; hb - Immunization history:: Adult Immunizations up to date. - Social history:: Smoking status: Patient uses tobacco products, smokes one-half pack cigarettes per day. - Ebola Screening: : No symptoms or risks identified at this time. Screenin:14 Abuse screen: Denies threats or abuse. Denies injuries from another. Nutritional aj screening: No deficits noted. Tuberculosis screening: No symptoms or risk factors identified. Fall Risk None identified. Assessment: 17:14 General: Appears in no apparent distress. comfortable, Behavior is calm, cooperative, aj appropriate for age. Pain: Denies pain. Neuro: Level of Consciousness is awake, alert, obeys commands, Oriented to person, place, time, situation, Appropriate for age. Respiratory: Reports cough that is Airway is patent Respiratory effort is even, unlabored, Respiratory pattern is regular, symmetrical, Breath sounds are coarse bilaterally. Breath sounds with crackles bilaterally. Breath sounds with wheezes bilaterally. EENT: Throat is clear Reports pain when swallowing. Derm: Skin is intact, is healthy with good turgor, Skin is pink, warm \T\ dry. normal. 18:15 Reassessment: Patient appears in no apparent distress at this time. No changes from aj previously documented assessment. Patient and/or family updated on plan of care and expected duration. Pain level reassessed. Patient is alert, oriented x 3, equal unlabored respirations, skin warm/dry/pink. Patient denies pain at this time. Patient states feeling better. Patient states symptoms have improved. Vital Signs: 17:04 BP 122 / 78; Pulse 113; Resp 16; Temp 98; Pulse Ox 97% on R/A; Weight 79.38 kg; Height hb 5 ft. 7 in. (170.18 cm); 18:03 BP 125 / 76; Pulse 111; Resp 20; Pulse Ox 99% on R/A; aj 17:04 Body Mass Index 27.41 (79.38 kg, 170.18 cm) hb ED Course: 16:51 Patient arrived in ED. sb2 16:52 Frankie De La Vega MD is Private Physician. sb2 16:53 Guerline Rollins FNP-C is [facility]. kb 16:53 Da Chavarria MD is Attending Physician. kb 17:04 Triage completed. hb 17:04 Arm band placed on right wrist. hb 17:09 Gavin Resendiz, RN is Primary Nurse. la1 17:09 Rebecca Samson, DANI is Primary Nurse. aj 17:14 Patient has correct armband on for positive identification. aj 17:14 No provider procedures requiring assistance completed. Patient did not have IV access aj during this emergency room visit. Administered Medications: 17:30 Drug: predniSONE 40 mg Route: PO; aj 18:18 Follow up: Response: Wheezing diminished aj 17:30 Drug: Albuterol 2.5 mg Route: Inhalation; aj Outcome: 17:54 Discharge ordered by MD. kb 18:17 Discharged to home ambulatory. aj 18:17 Condition: good 18:17 Discharge instructions given to patient, Instructed on discharge instructions, follow up and referral plans. Demonstrated understanding of instructions, follow-up care, medications, Prescriptions given X 2. 18:19 Patient left the ED. aj Signatures: Guerline Rollins FNP-C FNP-Rebecca Mendoza RN RN Gavin Resendiz RN RN la1 Denia Mcelroy RN RN Honey Del Valle sb2 Corrections: (The following items were deleted from the chart) 17:04 17:03 Presenting complaint: Patient states: cough and sore throat x 2 days hb hb 18:17 17:14 Respiratory: Reports cough that is Airway is patent Respiratory effort is even, aj unlabored, Respiratory pattern is regular, symmetrical, Breath sounds are clear bilaterally. aj
--- NOTE | 2018-06-03 17:55 | EDPHYS ---
Physician Documentation [facility] Name: Mitra Melendez Age: 22 yrs Sex: Female : 1995 Arrival Date: 06/03/2018 Time: 16:51 Bed Treatment Private MD: Frankie De La Vega S ED Physician Da Chavarria HPI: 06/03 17:08 This 22 yrs old Female presents to ER via Ambulatory with complaints of Sore kb Throat, Ear Pain. 17:08 The patient presents with sore throat. The patient describes throat pain as constant. kb Onset: The symptoms/episode began/occurred 2 day(s) ago. Severity of symptoms: At their worst the symptoms were moderate, in the emergency department the symptoms are unchanged. Modifying factors: The symptoms are alleviated by nothing, the symptoms are aggravated by swallowing, Patient's oral intake status: good. Associated signs and symptoms: Pertinent positives: cough, rhinorrhea, Sore throat. The patient has not experienced similar symptoms in the past. The patient has not recently seen a physician. Historical: - Allergies: 17:05 No Known Allergies; hb - Home Meds: 17:05 Vitamin Oral [Active]; hb - PMHx: 17:05 None; hb - PSHx: 17:05 None; hb - Immunization history:: Adult Immunizations up to date. - Social history:: Smoking status: Patient uses tobacco products, smokes one-half pack cigarettes per day. - Ebola Screening: : No symptoms or risks identified at this time. ROS: 17:07 Neck: Negative for injury, pain, and swelling, Cardiovascular: Negative for chest pain, kb palpitations, and edema, Abdomen/GI: Negative for abdominal pain, nausea, vomiting, diarrhea, and constipation, Back: Negative for injury and pain, : Negative for injury, bleeding, discharge, and swelling, MS/Extremity: Negative for injury and deformity, Skin: Negative for injury, rash, and discoloration, Neuro: Negative for headache, weakness, numbness, tingling, and seizure. 17:07 Constitutional: Positive for fatigue, malaise, Negative for body aches, chills, fever, poor PO intake, weight loss. 17:07 ENT: Positive for rhinorrhea, sinus congestion, sore throat. 17:07 Respiratory: Positive for cough, Negative for dyspnea on exertion, hemoptysis, orthopnea, pleurisy, shortness of breath, sputum production, wheezing. Exam: 17:07 Constitutional: This is a well developed, well nourished patient who is awake, alert, kb and in no acute distress. Head/Face: Normocephalic, atraumatic. ENT: Nares patent. No nasal discharge, no septal abnormalities noted. Tympanic membranes are normal and external auditory canals are clear. Oropharynx with no redness, swelling, or masses, exudates, or evidence of obstruction, uvula midline. Mucous membranes moist. Neck: Trachea midline, no thyromegaly or masses palpated, and no cervical lymphadenopathy. Supple, full range of motion without nuchal rigidity, or vertebral point tenderness. No Meningismus. Chest/axilla: Normal chest wall appearance and motion. Nontender with no deformity. No lesions are appreciated. Cardiovascular: Regular rate and rhythm with a normal S1 and S2. No gallops, murmurs, or rubs. Normal PMI, no JVD. No pulse deficits. Abdomen/GI: Soft, non-tender, with normal bowel sounds. No distension or tympany. No guarding or rebound. No evidence of tenderness throughout. Back: No spinal tenderness. No costovertebral tenderness. Full range of motion. Skin: Warm, dry with normal turgor. Normal color with no rashes, no lesions, and no evidence of cellulitis. MS/ Extremity: Pulses equal, no cyanosis. Neurovascular intact. Full, normal range of motion. Neuro: Awake and alert, GCS 15, oriented to person, place, time, and situation. Cranial nerves II-XII grossly intact. Motor strength 5/5 in all extremities. Sensory grossly intact. Cerebellar exam normal. Normal gait. 17:16 Respiratory: the patient does not display signs of respiratory distress, Respirations: kb normal, Breath sounds: wheezing: that is moderate, is heard diffusely. Vital Signs: 17:04 BP 122 / 78; Pulse 113; Resp 16; Temp 98; Pulse Ox 97% on R/A; Weight 79.38 kg; Height hb 5 ft. 7 in. (170.18 cm); 18:03 BP 125 / 76; Pulse 111; Resp 20; Pulse Ox 99% on R/A; aj 17:04 Body Mass Index 27.41 (79.38 kg, 170.18 cm) hb MDM: 17:00 Patient medically screened. kb 17:07 Data reviewed: vital signs, nurses notes. Data interpreted: Pulse oximetry: on room air kb is 97 %. Interpretation: normal. 17:54 Counseling: I had a detailed discussion with the patient and/or guardian regarding: the kb historical points, exam findings, and any diagnostic results supporting the discharge/admit diagnosis, lab results, the need for outpatient follow up, a family practitioner, to return to the emergency department if symptoms worsen or persist or if there are any questions or concerns that arise at home. 06/03 17:06 Order name: Flu kb 06/03 17:06 Order name: Strep kb 06/03 17:57 Order name: Throat Culture EDMS Administered Medications: 17:30 Drug: predniSONE 40 mg Route: PO; aj 18:18 Follow up: Response: Wheezing diminished aj 17:30 Drug: Albuterol 2.5 mg Route: Inhalation; aj Disposition: 06/03/18 17:54 Discharged to Home. Impression: Bronchitis, not specified as acute or chronic. - Condition is Stable. - Discharge Instructions: Acute Bronchitis, [id number]. - Prescriptions for Prednisone 20 mg Oral Tablet - take 1 tablet by ORAL route once daily for 5 days; 5 tablet. Albuterol Sulfate 90 mcg/actuation - inhale 1-2 puff by INHALATION route every 4-6 hours; 1 Inhaler. - Medication Reconciliation Form, Thank You Letter, Antibiotic Education, Prescription Opioid Use form. - Follow up: Emergency Department; When: As needed; Reason: Worsening of condition. Follow up: Private Physician; When: 2 - 3 days; Reason: Recheck today's complaints, Continuance of care, Re-evaluation by your physician. Addendum: 06/07/2018 16:55 Co-signature as Attending Physician, Da Chavarria MD. g s Signatures: Dispatcher [employer] EDWI Guerline Rollins, LESLY CLEMENT-Rebecca Mendoza RN RN aj Baxter, Heather, RN RN hb Starr, Gregory, MD MD gs Corrections: (The following items were deleted from the chart) 06/03 17:17 17:07 Constitutional: This is a well developed, well nourished patient who is awake, kb alert, and in no acute distress. Head/Face: Normocephalic, atraumatic. ENT: Nares patent. No nasal discharge, no septal abnormalities noted. Tympanic membranes are normal and external auditory canals are clear. Oropharynx with no redness, swelling, or masses, exudates, or evidence of obstruction, uvula midline. Mucous membranes moist. Neck: Trachea midline, no thyromegaly or masses palpated, and no cervical lymphadenopathy. Supple, full range of motion without nuchal rigidity, or vertebral point tenderness. No Meningismus. Chest/axilla: Normal chest wall appearance and motion. Nontender with no deformity. No lesions are appreciated. Cardiovascular: Regular rate and rhythm with a normal S1 and S2. No gallops, murmurs, or rubs. Normal PMI, no JVD. No pulse deficits. Respiratory: Lungs have equal breath sounds bilaterally, clear to auscultation and percussion. No rales, rhonchi or wheezes noted. No increased work of breathing, no retractions or nasal flaring. Abdomen/GI: Soft, non-tender, with normal bowel sounds. No distension or tympany. No guarding or rebound. No evidence of tenderness throughout. Back: No spinal tenderness. No costovertebral tenderness. Full range of motion. Skin: Warm, dry with normal turgor. Normal color with no rashes, no lesions, and no evidence of cellulitis. MS/ Extremity: Pulses equal, no cyanosis. Neurovascular intact. Full, normal range of motion. Neuro: Awake and alert, GCS 15, oriented to person, place, time, and situation. Cranial nerves II-XII grossly intact. Motor strength 5/5 in all extremities. Sensory grossly intact. Cerebellar exam normal. Normal gait. kb 18:19 17:54 06/03/2018 17:54 Discharged to Home. Impression: Bronchitis, not specified as aj acute or chronic. Condition is Stable. Discharge Instructions: Acute Bronchitis, [id number]. Prescriptions for Prednisone 20 mg Oral Tablet - take 1 tablet by ORAL route once daily for 5 days; 5 tablet, Albuterol Sulfate 90 mcg/actuation - inhale 1-2 puff by INHALATION route every 4-6 hours; 1 Inhaler. and Forms are Medication Reconciliation Form, Thank You Letter, Antibiotic Education, Prescription Opioid Use. Follow up: Emergency Department; When: As needed; Reason: Worsening of condition. Follow up: Private Physician; When: 2 - 3 days; Reason: Recheck today's complaints, Continuance of care, Re-evaluation by your physician. kb
== END 2018-06-03 18:19 | disposition home or self-care (01) ==
LOC: ER 16:49
DX: J40 Bronchitis, not specified as acute or chronic (principal); F17.210 Nicotine dependence, cigarettes, uncomplicated
CPT/HCPCS: 87070; 87081; 87804; 99284; J7512

== ENCOUNTER 2019-02-08 09:55 | Emergency (ER) | payer OTHER, SELFPAY ==
--- OUTSIDE RECORDS SUMMARY | 2019-02-08 09:57 | XMS REPORT ---
:1995 [facility] Address [address] [place] [address] Dr. [place] [address] [place] [id number] Care Team Providers Name Role Phone Unavailable Unavailable Unavailable Problems This patient has no known problems. Allergies, Adverse Reactions, Alerts This patient has no known allergies or adverse reactions. Medications This patient has no known medications.
--- OUTSIDE RECORDS SUMMARY | 2019-02-08 09:57 | XMS REPORT ---
[...] Instructions Start Date End Date Status Dosage [facility] [address] - Orally Once a Active 1 tablet 1 day Results No Known Results Summary Purpose eClinicalWorks Submission
[2019-02-08] MEDS ORDERED: IBUPROFEN 400 MG TAB ONE (10:41)
[2019-02-08] MEDS ORDERED: DEXAMETHASONE 10 MG/ML VIAL ONE (10:41)
--- NOTE | 2019-02-08 11:15 | ER ---
Nurse's Notes [facility] Name: Mitra Melendez Age: 23 yrs Sex: Female : 1995 Arrival Date: 02/08/2019 Time: 09:57 Bed 12 Private MD: Diagnosis: Acute pharyngitis Presentation: 02/08 10:03 Presenting complaint: Patient states: sore throat and fever that began 4 days ago. ss Transition of care: patient was not received from another setting of care. Onset of symptoms was February 05, 2019. Risk Assessment: Do you want to hurt yourself or someone else? Patient reports no desire to harm self or others. Initial Sepsis Screen: Does the patient meet any 2 criteria? No. Patient's initial sepsis screen is negative. Does the patient have a suspected source of infection? No. Patient's initial sepsis screen is negative. Care prior to arrival: None. 10:03 Method Of Arrival: Ambulatory ss 10:03 Acuity: ELBERT 4 ss SOFTWARE CLERK: 10:05 LMP N/A - Pt reports irregular mensus since taking Zoloft, but believes she had a ss period 1 month ago and is due for the next cycle any day now Historical: - Allergies: 10:05 No Known Allergies; ss - Home Meds: 10:05 Zoloft Oral [Active]; ss - PMHx: 10:05 Depression; ss - PSHx: 10:05 None; ss - Immunization history:: Adult Immunizations up to date. - Social history:: Smoking status: Patient uses tobacco products, smokes one pack cigarettes per day. - Ebola Screening: : Patient denies exposure to infectious person Patient denies travel to an Ebola-affected area in the 21 days before illness onset. Screenin:06 Abuse screen: Denies threats or abuse. Denies injuries from another. Nutritional ss screening: No deficits noted. Tuberculosis screening: Never had TB. Fall Risk None identified. Assessment: 10:06 General: Appears in no apparent distress. comfortable, Behavior is calm, cooperative, ss Reports fever for > 3 days, feeling ill for > 3 days. Pain: Complains of pain in throat Pain currently is 8 out of 10 on a pain scale. Quality of pain is described as aching, Pain began 4 days ago Is continuous. Neuro: Level of Consciousness is awake, alert, obeys commands, Oriented to person, place, time, situation. Cardiovascular: Capillary refill < 3 seconds is brisk in bilateral fingers. Respiratory: Airway is patent Respiratory effort is even, unlabored, Respiratory pattern is regular, symmetrical, Breath sounds are clear bilaterally. Denies cough, shortness of breath labored breathing. GI: Patient currently denies abdominal pain, diarrhea, nausea, vomiting. : No signs and/or symptoms were reported regarding the genitourinary system. Denies burning with urination, urinary frequency. EENT: Nares are clear Oral mucosa is moist. Throat is reddened. Derm: Skin is intact, is healthy with good turgor, Skin is dry, Skin is pink, warm \\T\\ dry. normal. Musculoskeletal: Circulation, motion, and sensation intact. Range of motion: intact in all extremities, Swelling absent. 11:02 Reassessment: strep swab recollected per livestock laborer as initial sample was reading ss "interference". Pt verbalizes understanding reasoning behind obtaining additional sample. Vital Signs: 10:05 BP 108 / 67; Pulse 85; Resp 16; Temp 97.9(TE); Pulse Ox 100% on R/A; Weight 76.2 kg; ss Height 5 ft. 7 in. (170.18 cm); Pain 8/10; 10:05 Body Mass Index 26.31 (76.20 kg, 170.18 cm) ED Course: 09:57 Patient arrived in ED. tw3 09:58 Guicho Long PA is PHCP. [facility] 09:58 Chico Devi MD is Attending Physician. [facility] 10:04 Triage completed. ss 10:05 Arm band placed on right wrist. ss 10:06 Patient has correct armband on for positive identification. Bed in low position. Call ss light in reach. 10:24 Samira Lewsi, DANI is Primary Nurse. ss 11:32 No provider procedures requiring assistance completed. Patient did not have IV access ss during this emergency room visit. Administered Medications: 10:31 Drug: Dexamethasone 10 mg Route: IM; Site: right deltoid; ss 11:17 Follow up: Response: No adverse reaction ss 10:31 Drug: Ibuprofen 800 mg Route: PO; ss 11:04 Follow up: Response: No adverse reaction; No adverse reaction, patient reports minimal ss decrease in pain Outcome: 11:15 Discharge ordered by . jmm 11:32 Discharged to home ambulatory. 11:32 Condition: good 11:32 Discharge instructions given to patient, Instructed on discharge instructions, follow up and referral plans. medication usage, Demonstrated understanding of instructions, follow-up care, medications, Prescriptions given X 1. 11:33 Patient left the ED. Signatures: Guicho Long PA PA jmm Smirch, Shelby, DANI RN Tutu, Mary tw3
--- NOTE | 2019-02-08 11:15 | EDPHYS ---
Physician Documentation [facility] Name: Mitra Melendez Age: 23 yrs Sex: Female : 1995 Arrival Date: 02/08/2019 Time: 09:57 Bed 12 Private MD: ED Physician Chico Devi HPI: 02/08 10:24 This 23 yrs old Female presents to ER via Ambulatory with complaints of Sore jmm Throat. 10:24 The patient presents with sore throat. The patient describes throat pain as raw. Onset: jmm The symptoms/episode began/occurred gradually, 4 day(s) ago. Associated signs and symptoms: Pertinent positives: fever. This is a 23 year old female with a history of depression that presents to the ED with complaints of sore throat and fever beginning 4 days ago. Denies vomiting, denies shortness of breath. . 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 - Social history:: Smoking status: Patient uses tobacco products, smokes one pack cigarettes per day. - Ebola Screening: : Patient denies exposure to infectious person Patient denies travel to an Ebola-affected area in the 21 days before illness onset. ROS: 10:24 Eyes: Negative for injury, pain, redness, and discharge. jmm 10:24 Cardiovascular: Negative for chest pain, palpitations, and edema, Respiratory: Negative for shortness of breath, cough, wheezing, and pleuritic chest pain, Abdomen/GI: Negative for abdominal pain, nausea, vomiting, diarrhea, and constipation. 10:24 Constitutional: Positive for fever. 10:24 ENT: Positive for sore throat. 10:24 All other systems are negative. Exam: 10:24 Constitutional: This is a well developed, well nourished patient who is awake, alert, jmm and in no acute distress. Head/Face: atraumatic. Eyes: EOMI, no conjunctival erythema appreciated 10:24 Cardiovascular: Regular rate and rhythm. No edema appreciated Respiratory: Normal respirations, no respiratory distress appreciated Abdomen/GI: Non distended, soft Back: Normal ROM Skin: General appearance color normal MS/ Extremity: Moves all extremities, no obvious deformities appreciated, no edema noted to the lower extremities Neuro: Awake and alert, normal gait 10:24 ENT: Posterior pharynx: Uvula: midline, erythema, that is moderate, peritonsillar mass, is not appreciated. 10:24 Neck: Lymph nodes: lymphadenopathy is appreciated, anterior cervical nodes. Vital Signs: 10:05 BP 108 / 67; Pulse 85; Resp 16; Temp 97.9(TE); Pulse Ox 100% on R/A; Weight 76.2 kg; ss Height 5 ft. 7 in. (170.18 cm); Pain 8/10; 10:05 Body Mass Index 26.31 (76.20 kg, 170.18 cm) ss MDM: 10:07 Patient medically screened. vipul 11:13 Data reviewed: vital signs, nurses notes. Counseling: I had a detailed discussion with emerson the patient and/or guardian regarding: the historical points, exam findings, and any diagnostic results supporting the discharge/admit diagnosis, lab results, the need for outpatient follow up, to return to the emergency department if symptoms worsen or persist or if there are any questions or concerns that arise at home. ED course: Patient is alert and non toxic in appearance in the ED. 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 Patient advised to follow up with pcp and otherwise given strict return precautions. Patient understood and agrees with the plan of care. . 02/08 10:18 Order name: Strep; Complete Time: 11:12 02/08 11:12 Order name: Throat Culture EDID 02/08 10:52 Order name: Labs collected and sent; Complete Time: 10:59 bd Administered Medications: 10:31 Drug: Dexamethasone 10 mg Route: IM; Site: right deltoid; 11:17 Follow up: Response: No adverse reaction ss 10:31 Drug: Ibuprofen 800 mg Route: PO; 11:04 Follow up: Response: No adverse reaction; No adverse reaction, patient reports minimal ss decrease in pain Disposition: 02/09 07:37 Co-signature as Attending Physician, Chico Devi MD I agree with the assessment and vipul plan of care. Disposition: 02/08/19 11:15 Discharged to Home. Impression: Acute pharyngitis. - Condition is Stable. - Discharge Instructions: Pharyngitis. - Prescriptions for Amoxicillin 875 mg Oral Tablet - take 1 tablet by ORAL route every 12 hours for 10 days; 20 tablet. - Medication Reconciliation Form, Thank You Letter, Antibiotic Education, Prescription Opioid Use form. - Follow up: Private Physician; When: 2 - 3 days; Reason: Recheck today's complaints, Continuance of care, Re-evaluation by your physician. Signatures: Dispatcher [employer] EDMS Jie Martinez Corey, MD MD cha Mickail, Joel, PA PA Samira Mccann, DANI RN ss Corrections: (The following items were deleted from the chart) 02/08 11:33 11:15 02/08/2019 11:15 Discharged to Home. Impression: Acute pharyngitis. Condition is ss Stable. Forms are Medication Reconciliation Form, Thank You Letter, Antibiotic Education, Prescription Opioid Use. Follow up: Private Physician; When: 2 - 3 days; Reason: Recheck today's complaints, Continuance of care, Re-evaluation by your physician. emerson
== END 2019-02-08 11:33 | disposition home or self-care (01) ==
LOC: ER 09:55
DX: J02.9 Acute pharyngitis, unspecified (principal); F32.9 Major depressive disorder, single episode, unspecified; F17.210 Nicotine dependence, cigarettes, uncomplicated
CPT/HCPCS: 87070; 87081; 96372; 99283; J1100

== ENCOUNTER 2020-02-11 14:52 | Emergency (ER) | payer MEDICAID, SELFPAY ==
--- OUTSIDE RECORDS SUMMARY | 2020-02-11 14:54 | XMS REPORT | Continuity of Care Document ---
:[address] [facility] t Address [address] [place] [address] Care Team Providers Name Role Phone Nacho Gil Attending Clinician Problems Condition Condition Condition Status Onset Resolution Last Treating Co mments Source Name Details Category Date Date Treatment Clinician Date 23 weeks 23 weeks Diagnosis Active [facility] gestation gestation [facility] - [facility] Memoria l [facility] Paronychia Paronychia Diagnosis Active [facility] of finger of finger Luke [facility] - of left of left Memoria hand hand l [facility] Allergies, Adverse Reactions, Alerts This patient has no known allergies or adverse reactions. Medications Ordered Filled Start Stop Current Ordering Indication Dosage Frequency Signature Comments Components Source Medication Medication Date Date Medication? Clinician (SIG) Name Name Yes Florencio [address] [facility] Procedures This patient has no known procedures. 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
--- OUTSIDE RECORDS SUMMARY | 2020-02-11 14:55 | XMS REPORT | Summary of Care ---
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 hemorrhoids azithromycin 500 mg Take 2 tablets 2 tablet 0 02/11/20200 Active tabletIndications: by mouth daily 0 Gonorrhea for 1 day. documented as of this encounter (statuses as of 02/11/2020) Active Problems Problem Noted Date Internal thrombosed hemorrhoids 02/09/2020 Vaginal discharge 10/16/2019 Chlamydia trachomatis infection of lower genitourinary sites 08/10/2019 Well woman exam 08/04/2018 Encounter for contraceptive management, unspecified ty pe 08/04/2018 Screening examination for venereal disease 08/04/2018 Tobacco use disorder 08/04/2018 documented as of this encounter (statuses as of 02/11/2020) Resolved Problems Problem Noted Date Resolved Date care and examination immediately after delivery 1 09/09/2017 08/04/2018 39 weeks gestation of 06/19/2018 08/04/20 18 (spontaneous vaginal delivery) 06/19/201808/04 Single live 06/19/2018 08/04/2018 Obstetric labial laceration, delivered, current 06/19/2018 08/04/2018 hospitalization Skin rash 06/19/2018 06/19/2018 Petechial rash 06/19/2018 08/04/2018 GBS (group B Streptococcus carrier), +RV culture, currently 06/05/2018 08/04/2018 Overview: Address in Labor and Delivery. History of drug overdose 05/08/2018 08/04/2018 Anomaly of heart of fetus affecting , antepartum, 0 05/08/2018 08/04/2018 single or unspecified fetus Anemia of mother in , antepartum 01/24/2018 08/04/2018 Drug overdose, intentional 12/30/2017 08/04/2018 13 weeks gestation of 12/30/2017 05/27/20 18 Supervision of high-risk with history of in 12/03/2017 05/27/2018 first trimester Dental caries 12/03/2017 08/04/2018 Family history of factor V Leiden mutation 12/03/2017 08/04/2018 Tobacco use during 11/11/2017 08/04/2018 History of miscarriage 11/11/2017 08/04/2018 Supervision of high risk in third trimester 201708/04/2018 Vaginal bleeding in patient at less than 20 weeks 0 11/11/2017 08/04/2018 gestation Missed period 05/01/2016 11/11/2017 Infertility counseling 05/01/2016 11/11/2017 Dyspareunia 05/01/2016 11/11/2017 Infertility, female 04/03/2016 11/11/2017 Underweight 04/03/2016 11/11/2017 documented as of this encounter (statuses as of 02/11/2020) Immunizations Name Administration Dates Next Due HPV9 09/17/2019, 08/05/2019, 06/19/2018 (Deferred: - no consent) Influenza Virus Vaccine Quad .5 mL 08/05/2019 IM 6+ MO Tdap 05/08/2018 documented as of this encounter Social History Tobacco Use Types Packs/Day Years Used Date Current Every Day Smoker Cigarettes 0.5 10 Sta rted: 10/04/2007 Smokeless Tobacco: Never Used Alcohol Use Drinks/Week oz/Week Comments No 0 Standard drinks or equivalent 0.0 Sex Assigned at Date Recorded Not on file Job Start Date Occupation Industry Not on file Not on file Not on file Travel History Travel Start Travel End No recent travel history available. COVID-19 Exposure Response Date Recorded In the last month, have you been in contact with No / Unsure 02/09/2020 2:55 PM CDT someone who was confirmed or suspected to have Coronavirus / COVID-19? documented as of this encounter Last Filed Vital Signs Not on filedocumented in this encounter Plan of Treatment Date Type Specialty Care Team Description 02/12/2020 Nurse Visit OB Satellites Visit, [facility] Nurse Health Maintenance Due Date Last Done Comments HPV VACCINES (3 - Female 02/03/2020 09/17/2019, 08/05/2019 3-dose series) Depression Screening 08/05/2020 08/05/2019 MENINGOCOCCAL B VACCINES (1 08/05/2020 Post poned from of 2 - Risk Bexsero 2-dose 12/15 (Insurance series) / Financial) CHLAMYDIA SCREENING 02/08/2021 02/09/2020, 10/16/2019, 08/05/2019, Additional history exists PAP SMEAR 08/04/2021 08/04/2018 DTaP,Tdap,and Td Vaccines 05/08/2028 05/08/2018 (2 - Td) INFLUENZA VACCINE Completed 08/05/2019 PNEUMOCOCCAL 0-64 YEARS Discontinued COMBINED SERIES documented as of this encounter Results Not on filedocumented in this encounter Visit Diagnoses Diagnosis Gonorrhea - Primary Gonococcal infection (acute) of lower ge nitourinary tract documented in this encounter Insurance Payer Benefit Plan Subscriber ID Effective Phone Address Typ e / Group Dates [facility] xxxxxxxxx 2019-Pres [phone] Medicaid WOMEN ent [address] [place] [address] documented as of this encounter Advance Directives Name Relationship Healthcare Agent Relationship Co mmunication Nabila Alejandro Primary healthcare agent [phone] ([place])
--- OUTSIDE RECORDS SUMMARY | 2020-02-11 14:55 | XMS REPORT | Summary of Care ---
:1995 Author Organization [facility] Address [address] [place] [address] Care Team Providers Name Role Phone Magalys Rice Primary Care Provider [phone] Reason for Visit Reason Comments Other Legal Blood Draw Encounter Details Date Type Department Care Team Description 12/31/2019 Emergency ADC-Emergency Depart ment Monica Sanchez MD [address] [place] [address] [address] [facility] [id number] [place] [address] [place] [address] [phone] Allergies No Known Allergiesdocumented as of this encounter (statuses as of 12/31/2019) Medications No known medicationsdocumented as of this encounter (statuses as of 12/31/2019) Active Problems Problem Noted Date Vaginal discharge 10/16/2019 Chlamydia trachomatis infection of lower genitourinary sites 08/10/2019 Well woman exam 08/04/2018 Encounter for contraceptive management, unspecified ty pe 08/04/2018 Screening examination for venereal disease 08/04/2018 Tobacco use disorder 08/04/2018 documented as of this encounter (statuses as of 12/31/2019) Resolved Problems Problem Noted Date Resolved Date [...] as of this encounter (statuses as of 12/31/2019) Immunizations Name Administration Dates Next Due HPV9 [...] Travel End No recent travel history available. documented as of this encounter Last Filed Vital Signs Not on filedocumented in this encounter Plan of Treatment Date Type Specialty Care Team Description 02/03/2020 Nurse Visit OB Satellites Visit, [facility] Nurse Health Maintenance Due Date Last Done Comments HPV VACCINES (3 - Female 02/03/2020 09/17/2019, 08/05/2019 3-dose series) MENINGOCOCCAL B VACCINES (1 08/05/2020 Post poned from of 2 - Risk Bexsero 2-dose 12/15 (Insurance series) / Financial) CHLAMYDIA SCREENING 10/16/2020 10/16/2019, 08/05/2019, 08/04/2018, Additional history exists PAP SMEAR 08/04/2021 08/04/2018 DTaP,Tdap,and Td Vaccines 05/08/2028 05/08/2018 (2 - Td) INFLUENZA VACCINE Completed 08/05/2019 PNEUMOCOCCAL 0-64 YEARS Discontinued COMBINED SERIES documented as of this encounter Results Not on filedocumented in this encounter Advance Directives Name Relationship Healthcare Agent Relationship Co mmunication Nabila [facility] Primary healthcare agent
--- OUTSIDE RECORDS SUMMARY | 2020-02-11 14:55 | XMS REPORT | Summary of Care ---
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
--- NOTE | 2020-02-11 18:01 | EDPHYS ---
Physician Documentation [facility] Name: Mitra Melendez Age: 24 yrs Sex: Female : 1995 Arrival Date: 02/11/2020 Time: 14:54 Bed 20 Private MD: ED Physician Brandon Stoll HPI: 02/10 18:26 This 24 yrs old Female presents to ER via Ambulatory with complaints of kdr Rectal Pain, Hemorrhoids. 18:26 The patient presents to the emergency department with pain in the rectal area, that is kdr moderate, that is severe. Onset: The symptoms/episode began/occurred Has been ongoing for weeks - has seen her PCP for this problem but was given medications that she could not afford and so she has not taken any medication. Context: the patient has had anal intercourse. Modifying factors: The symptoms are alleviated by nothing, The symptoms are aggravated by bowel movement, movement, sitting position. Associate signs and symptoms: The patient has no apparent associated signs or symptoms. The patient has not experienced similar symptoms in the past. The patient has been recently seen by a physician: the patient's primary care provider. 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 - Social history:: Smoking status: Patient reports the use of cigarette tobacco products, smokes one pack cigarettes per day. ROS: 18:26 Constitutional: Negative for fever, chills, and weight loss, Eyes: Negative for injury, kdr pain, redness, and discharge, ENT: Negative for injury, pain, and discharge, Neck: Negative for injury, pain, and swelling, Cardiovascular: Negative for chest pain, palpitations, and edema, Respiratory: Negative for shortness of breath, cough, wheezing, and pleuritic chest pain, Back: Negative for injury and pain, : Negative for injury, bleeding, discharge, and swelling, MS/Extremity: Negative for injury and deformity, Skin: Negative for injury, rash, and discoloration, Neuro: Negative for headache, weakness, numbness, tingling, and seizure activity. Psych: Negative for depression, anxiety, suicide ideation, homicidal ideation, and hallucinations, Allergy/Immunology: Negative for hives, rash, and allergies, Endocrine: Negative for neck swelling, polydipsia, polyuria, polyphagia, and marked weight changes, Hematologic/Lymphatic: Negative for swollen nodes, abnormal bleeding, and unusual bruising. 18:26 Abdomen/GI: Positive for rectal pain, Negative for black/tarry stool, rectal bleeding, bowel incontinence. Exam: 18:38 Constitutional: This is a well developed, well nourished patient who is awake, alert, kdr and in no acute distress. 18:38 Abdomen/GI: Palpation: Rectal exam: rectal tone normal, hemorrhoid(s), are not appreciated, mass, is not appreciated, swelling, is not appreciated, tenderness, that is moderate, that is severe, the exam is chaperoned by the nurse. Vital Signs: 15:08 BP 116 / 79; Pulse 100; Resp 16 S; Temp 98.4; Pulse Ox 96% on R/A; Weight 77.11 kg; iw Height 5 ft. 7 in. (170.18 cm); Pain 7/10; 18:03 BP 107 / 66; Pulse 87; Resp 16 S; Pulse Ox 100% on R/A; ca1 15:08 Body Mass Index 26.63 (77.11 kg, 170.18 cm) iw MDM: 18:00 Patient medically screened. kdr 18:39 Data reviewed: vital signs, nurses notes, lab test result(s), radiologic studies. kdr Counseling: I had a detailed discussion with the patient and/or guardian regarding: the historical points, exam findings, and any diagnostic results supporting the discharge/admit diagnosis, lab results, radiology results, the need for outpatient follow up. Administered Medications: 18:06 Drug: [place] 10 mg-325 mg 1 tabs {Note: rass - 0.} Route: PO; ca1 18:14 Follow up: Response: No adverse reaction; Pain is decreased ca1 Disposition: 02/11/20 18:00 Discharged to Home. Impression: Rectal pain/fissure, Hemorrhoids - internal. - Condition is Fair. - Discharge Instructions: How to Take a Sitz Bath, Hemorrhoids, [id number]. - Prescriptions for Anusol- HC 2.5 % Rectal Cream - Apply to affected area 1 application by TOPICAL route every 8 hours As needed; 30 gram. Tylenol- Codeine #3 300-30 mg Oral Tablet - take 2 tablets by ORAL route every 6 hours As needed; 15 tablet. - Medication Reconciliation Form, Thank You Letter form. - Follow up: Private Physician; When: 2 - 3 days; Reason: If symptoms return, Further diagnostic work-up, Recheck today's complaints, Continuance of care, Re-evaluation by your physician. - Problem is an ongoing problem. - Symptoms have improved. Signatures: Brandon Stoll MD MD kdr Ladonna Gross RN RN iw Acchanda, Bernadette RN RN ca1 Corrections: (The following items were deleted from the chart) 15:13 15:11 PMHx: Depression; [facility] 18:14 18:00 02/11/2020 18:00 Discharged to Home. Impression: Rectal pain/fissure; Hemorrhoids ca1 - internal. Condition is Fair. Forms are Medication Reconciliation Form, Thank You Letter, Antibiotic Education, Prescription Opioid Use. Follow up: Private Physician; When: 2 - 3 days; Reason: If symptoms return, Further diagnostic work-up, Recheck today's complaints, Continuance of care, Re-evaluation by your physician. Problem is an ongoing problem. Symptoms have improved. kdr
--- NOTE | 2020-02-11 18:01 | ER ---
Nurse's Notes [facility] Name: Mitra Melendez Age: 24 yrs Sex: Female : 1995 Arrival Date: 02/11/2020 Time: 14:54 Bed 20 Private MD: Diagnosis: Rectal pain/fissure;Hemorrhoids - internal Presentation: 02/10 15:08 Chief complaint: Patient states: was diagnosed with hemorrhoids a couple days ago, pain iw has gotten worse, was prescribed medication that she couldn't afford, has been taking OTC medication but pain is worsening, feels more swollen. Coronavirus screen: Proceed with normal triage. Patient denies a cough. Patient denies shortness of breath or difficulty breathing. Patient denies measured and/or subjective temperature greater than 100.4F prior to today's visit. Patient denies travel on a cruise ship or to a country the [facility] currently lists as an affected area. Patient denies contact with known and/or suspected case of COVID-19. Ebola Screen: Patient negative for fever greater than or equal to 101.5 degrees Fahrenheit, and additional compatible Ebola Virus Disease symptoms Patient denies exposure to infectious person. Patient denies travel to an Ebola-affected area in the 21 days before illness onset. No symptoms or risks identified at this time. Initial Sepsis Screen: Does the patient meet any 2 criteria? No. Patient's initial sepsis screen is negative. Does the patient have a suspected source of infection? No. Patient's initial sepsis screen is negative. Risk Assessment: Do you want to hurt yourself or someone else? Patient reports no desire to harm self or others. Onset of symptoms was January 23, 2020. 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 - Social history:: Smoking status: Patient reports the use of cigarette tobacco products, smokes one pack cigarettes per day. Screenin:45 Abuse screen: Denies threats or abuse. Denies injuries from another. Nutritional ca1 screening: No deficits noted. Tuberculosis screening: No symptoms or risk factors identified. Fall Risk None identified. Assessment: 17:45 General: Appears in no apparent distress. comfortable, Behavior is calm, cooperative, ca1 appropriate for age. Pain: Complains of pain in gluteal cleft Pain currently is 8 out of 10 on a pain scale. Quality of pain is described as pressure. Neuro: Level of Consciousness is awake, alert, obeys commands, Oriented to person, place, time, situation. Cardiovascular: Heart tones S1 S2 present Capillary refill < 3 seconds Patient's skin is warm and dry. Respiratory: Airway is patent Respiratory effort is even, unlabored, Respiratory pattern is regular, symmetrical. GI: Abdomen is round non-distended, Bowel sounds present X 4 quads. Abd is soft and non tender X 4 quads. GI: GI: hemorrhoids not visible. : No signs and/or symptoms were reported regarding the genitourinary system. EENT: No signs and/or symptoms were reported regarding the EENT system. Derm: Skin is intact, is healthy with good turgor, Skin is pink, warm \T\ dry. Musculoskeletal: Circulation, motion, and sensation intact. Capillary refill < 3 seconds. Vital Signs: 15:08 BP 116 / 79; Pulse 100; Resp 16 S; Temp 98.4; Pulse Ox 96% on R/A; Weight 77.11 kg; iw Height 5 ft. 7 in. (170.18 cm); Pain 7/10; 18:03 BP 107 / 66; Pulse 87; Resp 16 S; Pulse Ox 100% on R/A; ca1 15:08 Body Mass Index 26.63 (77.11 kg, 170.18 cm) iw ED Course: 14:54 Patient arrived in ED. as 15:08 Arm band placed on. iw 15:11 Triage completed. iw 15:25 Guerline Rollins FNP-C is PHCP. kb 15:25 Brandon Stoll MD is Attending Physician. kb 17:33 Brandon Stoll MD is Attending Physician. kdr 17:37 Bernadette Motley RN is Primary Nurse. ca1 17:45 Patient has correct armband on for positive identification. Placed in gown. Bed in low ca1 position. Call light in reach. Side rails up X 1. Pulse ox on. NIBP on. Warm blanket given. 18:06 No provider procedures requiring assistance completed. Patient did not have IV access ca1 during this emergency room visit. Administered Medications: 18:06 Drug: [place] 10 mg-325 mg 1 tabs {Note: rass - 0.} Route: PO; ca1 18:14 Follow up: Response: No adverse reaction; Pain is decreased ca1 Outcome: 18:00 Discharge ordered by . alin 18:14 Discharged to home ambulatory. ca1 18:14 Condition: stable 18:14 Discharge instructions given to patient, Instructed on discharge instructions, follow up and referral plans. no drinking with medication, no driving heavy equipment, medication usage, Demonstrated understanding of instructions, follow-up care, medications, Prescriptions given X 2. 18:14 Patient left the ED. ca1 Signatures: Guerline Rlolins, BULLION WEIGHER-C BULLION WEIGHER-Ckb Brandon Stoll MD MD kdr Martinez, Amelia as Williams, Irene, RN RN iw Bernadette Motley RN RN ca1 Corrections: (The following items were deleted from the chart) 15:12 15:08 Acuity: ELBERT 3 [facility] 15:13 15:11 PMHx: Depression; [facility]
[2020-02-11] MEDS ORDERED: HYDROCODONE/APAP 10/325 TAB ONE (18:12)
[2020-02-11 18:27] VITALS: TEMP 98.4
[2020-02-11 18:28] VITALS: BP 107/66; O2SAT 100
== END 2020-02-11 18:14 | disposition home or self-care (01) ==
LOC: ER 14:52
DX: K64.8 Other hemorrhoids (principal); K60.2 Anal fissure, unspecified; F17.210 Nicotine dependence, cigarettes, uncomplicated
CPT/HCPCS: 99283

== ENCOUNTER 2020-02-13 15:57 | Day surgery (SDC) | payer MEDICAID, SELFPAY ==
--- OUTSIDE RECORDS SUMMARY | 2020-02-13 16:00 | XMS REPORT | Continuity of Care Document ---
:1995 Author Organization [facility] t Address [address] [place] [address] Care Team Providers Name Role Phone Visit, Nurse Attending Clinician Unavailable Nacho Gil Attending Clinician Eneida Henderson Attending Clinician Problems Condition Condition Condition Status Onset Resolution Last Treating Co mments Source Name Details Category Date Date Treatment Clinician Date 23 weeks 23 weeks Diagnosis Active [facility] Paronychia Paronychia Diagnosis Active [facility] of finger of finger Luke s - of left of left Memoria hand hand l [facility] ent Clinics Allergies, Adverse Reactions, Alerts This patient has no known allergies or adverse reactions. Medications Ordered Filled Start Stop Current Ordering Indication Dosage Frequency Signature Comments Components Source Medication Medication Date Date Medication? Clinician (SIG) Name Name Yes Florencio [address] [facility] ent Clinics Procedures This patient has no known procedures. Encounters Start End Encounter Admission Attending Care Care Encounter Source Date/Time Date/Time Type Type Clinicians Facility Department ID 2020-02-12 2020-02-12 Nurse Visit, [facility] [id number] 12:56:01 13:27:54 Visit Lenoreelly QUALITY ASSURANCE COACH [id number] Nurse REGIONAL [id number] MATERNAL [id number] & CHILD [address] [place] [address] 2020-02-11 2020-02-11 Telephone KATINA Puckett [id number] 00:00:00 00:00:00 German Griffith QUALITY ASSURANCE COACH [id number] REGIONAL [id number] MATERNAL [id number] & CHILD [address] [facility] 2020-02-11 2020-02-11 Hammond Krystal [facility] [id number] 00:00:00 00:00:00 Magalys Monique QUALITY ASSURANCE COACH [id number] REGIONAL [id number] MATERNAL [id number] & CHILD 107 [facility] 2018-02-25 2018-02-25 Out[facility] [id number] [facility] 08:45:00 08:45:00 t Ardian Highlighter [facility] Family [facility] Medicine Outpati ent Clinics Results This patient has no known results.
--- OUTSIDE RECORDS SUMMARY | 2020-02-13 16:02 | XMS REPORT | Summary of Care ---
:1995 Author Organization [facility] Address [address] [place] [address] Care Team Providers Name Role Phone Magalys Rice [facility] Primary Care Provider [phone] Reason for Visit Reason Comments Rx Concern/Question Assessment Hemmorrhoids Encounter Details Date Type Department Care Team Description 02/11/2020 Telephone [facility]- Magalys Rice Rx Concern/Question; Estela Monique GEOVANNA Assessment [address] [facility] [address] [facility] (Hemmorrhoids) [place], [place] [id number] Allergies No Known Allergiesdocumented as of this [...] Description 02/12/2020 Nurse Visit [facility] Satellites Visit, [facility] Nurse Health Maintenance Due Date Last Done [...] Results Not on filedocumented in this encounter Insurance Payer Benefit Plan Subscriber ID Effective Phone Address Typ e / Group Dates [facility] xxxxxxxxx 2019-Pres [phone] Medicaid WOMEN ent [address] [place] [address] documented as of this encounter Advance Directives Name Relationship Healthcare Agent Relationship Co mmunication Nabila Alejandro Primary healthcare agent
--- OUTSIDE RECORDS SUMMARY | 2020-02-13 16:02 | XMS REPORT | Summary of Care ---
:1995 Author Organization [facility] Address [address] [place] [address] Care Team Providers Name Role Phone [facility] Care Provider [phone] Reason for Visit Reason Comments NURSE VISIT JOSEMANUEL Encounter Details Date Type Department Care Team Description 02/12/[address] [facility]- Angelina Puckett nda R, BREAKER UP [address] [place], [place] [id number] Gonorrhea (Primary Dx) [place] Visit, [facility] Nurse [address] [place] [address] Allergies No Known Allergiesdocumented as of this encounter (statuses as of 02/12/2020) Medications Medication Sig Dispensed Refills Start Date End Date Status hydrocortisone 25 mg Insert 1 30 Suppository 1 02/09/2020 Active suppositoryIndicatio Suppository into ns: Internal rectum 2 (two) thrombosed times daily. hemorrhoids azithromycin 500 mg Take 2 tablets 2 tablet 0 02/11/2020/0 Active tabletIndications: by mouth daily 0 Gonorrhea for 1 day. 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 documented as of this encounter Last Filed Vital Signs Vital Sign Reading Time Taken Comments Blood Pressure 121/80 02/12/2020 1:10 PM CDT Pulse 103 02/12/2020 1:10 PM CDT Temperature 36.4 C (97.6 F) 02/12/2020 1:10 PM CDT Respiratory Rate 16 02/12/2020 1:10 PM CDT Oxygen Saturation - - Inhaled Oxygen Concentration - - Weight 73.5 kg (162 lb 2 oz) 02/12/2020 1:10 PM CDT Height 170.2 cm (5' 7") 02/12/2020 1:10 PM CDT Body Mass Index 25.39 02/12/2020 1:10 PM CDT documented in this encounter Patient Instructions Patient InstructionsGia Santamaria LVN - 02/12/2020 1:00 PM CDT Patient Education Gonorrhea Gonorrhea is a bacterial infection that is transmitted sexually. Many women and some men who have gonorrhea don't have any signs or symptoms. If not treated,gonorrhea can cause a painful penile, vaginal, or rectal discharge. It can sometimes lead to swollen and painful joints or lifelong (permanent)damage to your reproductive organs. And in some cases it can make a man or woman unable to have children (infertile). If a woman has gonorrhea,she can infect her baby during childbirth. Healthcare provider talking to a female patient Gonorrhea is also called the clap or the drip. Symptoms In men: Pain or burning when urinating Watery,milky,or yellow discharge from the penis or anus In women: Yellow or white discharge from the vagina or anus Bleeding between periods Treatment Gonorrhea can be cured quickly with antibiotics. If you are being treated,your partner should alsobe checked by a healthcare provider. Dont have sex while you are being treated and for a week after. Prevention As with all sexually transmitted infections (STIs),knowing your partners sexual history is important. It's a ge step in preventing gonorrhea. Also know the signs and symptoms of the infection. And use latex condoms to reduce your risk. Resources [employer] STD Hotline, , www.[employer].org [facility], , www.cdc.gov/std Manolo last reviewed this educational content on 02/07/201919990794-7344 [employer]. [address] [place] [address]. All rights reserved. This information is not intended as a substitute for professional medical care. Always follow your healthcare professional's instructions. documented in this encounter Progress Notes Gia Santamaria LVN - 02/12/2020 1:00 PM CDTPatient here for gonorrhea treatment, per providers orders Rocephin 250mg given IM to right gluteus, tolerated well. Patient took Azithromycin in clinic, advised to remain abstinence for 2 weeks and RTC in 90 days for JOSEMANUEL, verbalized understanding. documented in this encounter Plan of Treatment Date Type Specialty Care Team Description 05/13/2020 Medical Coding Instructor Visit [facility] Lab, [facility] Health Maintenance Due Date Last Done Comments HPV VACCINES (3 - Female 04/13/2020 09/17/2019, 08/05/2019 Postponed from 3-dose series) 02/03/2020 (Alternative Guidelines) Depression Screening 08/05/2020 08/05/2019 MENINGOCOCCAL B VACCINES [...] ge nitourinary tract documented in this encounter Administered Medications Medication Order MAR Action Action Date Dose Rate Site cefTRIAXone (ROCEPHIN) Given 02/12/2020 1:29 PM 250 mg Right Upper Quad. 250 mg in lidocaine 1% CDT Gl uteus (PF) (XYLOCAINE) 1 mL injection 250 mg, Intramuscular, ONCE, 1 dose, Sat02/12/20 at 1430, 1 mL, Reason for Anti-Infective: Documented Infection, Documented Infection Site: Urine, Duration of Therapy: 7 days documented in this encounter Insurance Payer Benefit Plan Subscriber ID Effective Phone Address Typ e / Group Dates [facility] xxxxxxxxx 2019-Pres [phone] Medicaid WOMEN ent [address] [place] [address] documented as of this encounter Advance Directives Name Relationship Healthcare Agent Relationship Co mmunication Nabila Melendez Mother Primary healthcare agent
[2020-02-13 17:11] LABS: Absolute Lymphocytes (CBC) 1.7 K/uL (0.7-4.9); Basophils % 0.6 % (0-1.3); Hematocrit 44.7 % (36.0-45.0); Lymphocytes % 17.9 % (15.3-44.8); MPV 10.3 fL (7.6-11.3); RBC Red Blood Cell Count 5.18 M/uL (3.86-4.86)
[2020-02-13] MEDS ORDERED: MORPHINE 4 MG/ML SYR ONE (17:22)
[2020-02-13 17:52] LABS: BUN Blood Urea Nitrogen 12 mg/dL (7-18); Bicarbonate 25 mmol/L (21-32); Glucose Level 105 mg/dL (74-106); Potassium 3.3 mmol/L (3.5-5.1); Sodium Level 140 mmol/L (136-145)
[2020-02-13 17:56] LABS: Urine Blood NEGATIVE (NEG); Urine Glucose NEGATIVE (NEG); Urine Protein 1+ (NEG); Urine pH 5.5 (5.0-7.0)
[2020-02-13] MEDS ORDERED: NA CHLORIDE 0.9% 50 ML IV ONE (18:01)
[2020-02-13] MEDS ORDERED: CLINDAMYCIN 600MG/D5W 600 MG/50 ML BAG IV ONE (18:01)
--- NOTE | 2020-02-13 18:12 | EDPHYS ---
Physician Documentation [facility] Name: Mitra Melendez Age: 24 yrs Sex: Female : 1995 Arrival Date: 02/13/2020 Time: 16:01 Bed 14 Private MD: ED Physician John Benjamin HPI: 02/12 16:25 This 24 yrs old Female presents to ER via Ambulatory with complaints of rn Hemorrhoids. 16:25 The patient presents to the emergency department with pain in the rectal area. rn 16:25 Onset: The symptoms/episode began/occurred 1 week(s) ago. Context: the patient has no rn known special context relating to the rectal area complaint(s). Modifying factors: The symptoms are alleviated by nothing, The symptoms are aggravated by bowel movement, movement, sitting position. The patient has not experienced similar symptoms in the past. Reports thinks has hemorrhoid, seen here yesterday but medication not working, about 1 week of painful BM and touching area, + recurrent skin infections. NO fever. No blood in stool. . 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 - Social history:: Smoking status: Patient reports the use of cigarette tobacco products, smokes one pack cigarettes per day. Patient/guardian denies using alcohol, street drugs. - Family history:: not pertinent. - Hospitalizations: : No recent hospitalization is reported. ROS: 16:25 Constitutional: Negative for fever, chills, and weight loss, Abdomen/GI: Negative for rn abdominal pain, nausea, vomiting, diarrhea, and constipation, + perianal pain Exam: 16:25 Constitutional: This is a well developed, well nourished patient who is awake, alert, rn and in no acute distress. Abdomen/GI: soft, non-tender, 12 o' clock position of anus with fluctuant mass and tenderness, no bleeding Vital Signs: 16:09 BP 121 / 78; Pulse 108; Resp 17; Temp 98.3; Pulse Ox 99% ; Pain 9/10; ll1 MDM: 16:07 Patient medically screened. rn 18:02 ED course: Pt states last PO intake just before 1PM, is very anxious and wants to go rn smoke. Told her she cannot go outside to smoke and OR team on their way in. She states "I don't care", stormed outside with IV in her arm, code sauer called. . 18:09 Differential diagnosis: hemorrhoids, fissure, abscess. Data reviewed: vital signs, rn nurses notes, and as a result, I will admit patient. Counseling: I had a detailed discussion with the patient and/or guardian regarding: the historical points, exam findings, and any diagnostic results supporting the discharge/admit diagnosis, radiology results, the need for further work-up and treatment in the hospital. Response to treatment: There is no appreciated change of the patient's symptoms at this time, and as a result, I will admit patient. Admission orders: after a detailed discussion of the patient's condition and case, the admit orders are written by me. ED course: Pt with signs and symptoms of perirectal abscess, Dr. Clancy contacted, is coming in for surgery. PT NPO since 1pm. . 02/12 16:23 Order name: CBC with Diff; Complete Time: 17:40 rn 02/12 16:23 Order name: Basic Metabolic Panel; Complete Time: 17:57 02/12 16:23 Order name: CT Pelvis w cont; Complete Time: 18:23 02/12 17:03 Order name: Urine Dipstick--Ancillary (enter results); Complete Time: 17:57 02/12 17:03 Order name: Urine --Ancillary (enter results); Complete Time: 17:57 02/12 16:23 Order name: IV Start; Complete Time: 16:57 02/12 16:23 Order name: NPO; Complete Time: 17:11 rn 02/12 16:23 Order name: Urine Test (obtain specimen); Complete Time: 17:11 rn Administered Medications: 17:18 Drug: morphine 4 mg Route: IVP; Site: right wrist; vc 18:00 Follow up: Response: No adverse reaction; Pain is decreased vc 18:25 Drug: Clindamycin 600 mg Route: IVPB; Infused Over: 30 mins; Site: right wrist; vc Disposition: 02/13/20 18:11 Hospitalization ordered by Jose Guadalupe Clancy for Observation. Preliminary diagnosis is Rectal abscess. - Bed requested for Telemetry/MedSurg (observation). - Status is Observation. vc - Condition is Stable. - Problem is an ongoing problem. - Symptoms are unchanged. Signatures: Dispatcher [employer] Ermelinda Mccloud RN RN dw John Benjamin MD MD rn Calcote, Vanessa, RN RN vc Lewis, Lynsay, DANI RN ll1 Corrections: (The following items were deleted from the chart) 18:47 18:11 Hospitalization Ordered by Jose Guadalupe Clancy MD for Observation. Preliminary dw diagnosis is Rectal abscess. Bed requested for Telemetry/MedSurg (observation). Status is Observation. Condition is Stable. Problem is an ongoing problem. Symptoms are unchanged. rn 18:48 18:47 02/13/2020 18:11 Hospitalization Ordered by Jose Guadalupe Clancy MD for Observation. vc Preliminary diagnosis is Rectal abscess. Bed requested for Telemetry/MedSurg (observation). Status is Observation. Condition is Stable. Problem is an ongoing problem. Symptoms are unchanged. dw
--- NOTE | 2020-02-13 18:12 | ER ---
Nurse's Notes [facility] Name: Mitra Melendez Age: 24 yrs Sex: Female : 1995 Arrival Date: 02/13/2020 Time: 16:01 Bed 14 Private MD: Diagnosis: Rectal abscess Presentation: 02/12 16:09 Chief complaint: Patient states: States she was here last night for hemorrhoid pain. ll1 States pain is worse, and believes she has external hemorrhoids today. No fever. Coronavirus screen: Proceed with normal triage. Patient reports a cough. Patient denies shortness of breath or difficulty breathing. Patient denies measured and/or subjective temperature greater than 100.4F prior to today's visit. Patient denies travel on a cruise ship or to a country the [facility] currently lists as an affected area. Patient denies contact with known and/or suspected case of COVID-19. "smokers cough". Ebola Screen: Patient denies travel to an Ebola-affected area in the 21 days before illness onset. Initial Sepsis Screen: Does the patient meet any 2 criteria? HR > 90 bpm. No. Patient's initial sepsis screen is negative. Risk Assessment: Do you want to hurt yourself or someone else? Patient reports no desire to harm self or others. Onset of symptoms was February 11, 2020. 16:09 Method Of Arrival: Ambulatory ll1 16:09 Acuity: ELBERT 3 ss Triage Assessment: 16:05 General: Appears in no apparent distress. uncomfortable, Behavior is agitated, anxious. vc Pain: Complains of pain in perirectal. 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 - Social history:: Smoking status: Patient reports the use of cigarette tobacco products, smokes one pack cigarettes per day. Patient/guardian denies using alcohol, street drugs. - Family history:: not pertinent. - Hospitalizations: : No recent hospitalization is reported. Screenin:58 Abuse screen: Denies threats or abuse. Denies injuries from another. Nutritional ss screening: No deficits noted. Tuberculosis screening: Never had TB. Fall Risk None identified. Assessment: 16:08 General: Appears in no apparent distress. uncomfortable, Behavior is agitated, anxious. vc Pain: Complains of pain in perirectal. Neuro: Level of Consciousness is awake, alert, obeys commands, Oriented to person, place, time, situation. Cardiovascular: Patient's skin is warm and dry. Respiratory: Airway is patent Respiratory effort is even, unlabored, Respiratory pattern is regular, symmetrical. GI: No signs and/or symptoms were reported involving the gastrointestinal system. : No signs and/or symptoms were reported regarding the genitourinary system. Derm: Abscess located on perirectal. Musculoskeletal: Circulation, motion, and sensation intact. Range of motion: intact in all extremities. 16:45 Reassessment: Patient pacing around room, states she is going to smoke a cigarette, vc patient is educated on not being able to go smoke. Patient verbalizes understanding. 17:40 Reassessment: Patient appears in no apparent distress at this time. Patient and/or vc family updated on plan of care and expected duration. Pain level reassessed. Patient asks if she can go out and get something from her dad. Charge nurse at bedside speaking with patient. 18:40 Reassessment: Patient walked out of the ER to the parking lot. Patient brought back vc inside and informed if she leaves the ER again we will have to take her IV out. Patient verbalizes understanding and states that she was just scared. Vital Signs: 16:09 BP 121 / 78; Pulse 108; Resp 17; Temp 98.3; Pulse Ox 99% ; Pain 9/10; ll1 ED Course: 16:01 Patient arrived in ED. fj1 16:07 John Benjamin MD is Attending Physician. rn 16:13 Triage completed. ll1 16:13 Arm band placed on Patient placed in an exam room, on a stretcher. ll1 16:27 Laura Castillo RN is Primary Nurse. vc 16:37 Radiology exam delayed due to test not completed at this time. bq 16:58 Patient has correct armband on for positive identification. Bed in low position. Call ss light in reach. 16:58 Inserted saline lock: 20 gauge in right wrist, using aseptic technique. Blood collected.ss 17:46 CT Pelvis w cont In Process Unspecified. EDMS 18:11 Jose Guadalupe Clancy MD is Hospitalizing Provider. rn 18:45 No provider procedures requiring assistance completed. Patient admitted, IV remains in vc place. Administered Medications: 17:18 Drug: morphine 4 mg Route: IVP; Site: right wrist; vc 18:00 Follow up: Response: No adverse reaction; Pain is decreased vc 18:25 Drug: Clindamycin 600 mg Route: IVPB; Infused Over: 30 mins; Site: right wrist; vc Outcome: 18:11 Decision to Hospitalize by Provider. rn 18:45 Admitted to OR accompanied by nurse, via stretcher, with chart, Report called to OR vc nurse 18:45 Condition: good 18:45 Instructed on the need for admit. 18:48 Patient left the ED. vc Signatures: Dispatcher [employer] EDMS Hyacinth Moore Roman, MD MD rn Smirch, Shelby, RN RN ss Calcote, Vanessa, RN RN Link Donnelly fjIsmael Cash RN RN ll1 Corrections: (The following items were deleted from the chart) 16:21 16:09 Acuity: ELBERT 4 ll1 ss
--- NOTE | 2020-02-13 18:21 | RAD REPORT ---
EXAM DESCRIPTION: CT - Pelvis W/Cont - 02/13/2020 5:46 pm CLINICAL HISTORY: rectal pain, eval for perirectal abscess COMPARISON: No comparisons TECHNIQUE: Axial 5 millimeter thick images of the pelvis were obtained following IV contrast. No ora l contrast was administered. The CT scan was performed using dose optimization techniques as appropriate to a performed exam incl uding one or more of the following: Automated exposure control, adjustment of the mA and/or kV accord ing to patient size (this includes techniques or standardized protocols for targeted exams where dose is matched to indication/reason for exam) and use of iterative reconstruction technique. FINDINGS: In the soft tissues along the midline posterior to the anus there is a 17 x 10 x 10 millim eter low-density collection. In the soft tissues right lateral margin of the anus there is a second 1 5 x 9 x 9 millimeter low-density collection. Both show a thickened slightly irregular enhancing rim o r rind. No extension into the perirectal fatty tissues. Fat of the perineum is otherwise unremarkable. Uterus and ovaries show no suspicious findings. No bowel abnormality otherwise noted. No free air or free fluid. No bony abnormality. IMPRESSION: Two perirectal abscesses are present. A 17 x 10 x 10 millimeter collection is present posterior to the anus. A 15 x 9 x 9 abscess is presen t right lateral margin of the anus. No abnormalities extend to the perirectal fatty tissues of the lower pelvis.
[2020-02-13] MEDS ORDERED: Ringers Lactate 1,000 ML IV ONE (19:02)
[2020-02-13] MEDS ORDERED: SUCCINYLCHOLINE 20 MG/ML (10 ML) IV ONE (19:04)
[2020-02-13] MEDS ORDERED: MIDAZOLAM HCL 2 MG/2 ML INJ ONE (19:06)
[2020-02-13] MEDS ORDERED: propofoL 200 MG/20 ML VIAL IV ONE (19:06)
[2020-02-13] MEDS ORDERED: FENTANYL CITR 100 MCG/2 ML ONE (19:06)
--- NOTE | 2020-02-13 19:17 | P.HP ---
Date of Service: 02/13/20 PC: This 24-year-old female presents to the emergency room with perirectal pain for diagnosis and treatment. HPC: Patient had apparently been seen here yesterday. Was complaining of pain in the area. It was felt that the patient possibly had hemorrhoids. She was discharged home. Today she noticed pain eating crease, she now feel a mass in that area and she came back for re-evaluation. PMH: The history of Crohn's disease inflammatory bowel disease. 1 para 1 PSHx: Negative SOC: No known allergies SYS REVIEW: No cough, wheeze, shortness of breath. No chest pain or palpitations. No urinary complaints O/E awake alert uncomfortable HEENT: Not jaundice Chest: Chest movement equal bilaterally ABD: Soft nontender LOCO: Intact DATA: CT scan demonstrates 2 possible abscesses in the right buttock IMPRESSION: Perirectal abscess PLAN: Will take her the operating room for incision, drainage, sharp debridement of this abscess possible abscess sees. The risks of this procedure have been discussed. The possibility of bleeding, infection, need for further surgeries and procedures was described. Recurrence and scar formation were outlined. Inner stands and wants to proceed.
--- NOTE | 2020-02-13 19:26 | P.OP ---
Primary procedure: Incision, drainage, sharp debridement of perirectal abscess Anesthesia: General Estimated blood loss: Less than 10 cc Specimen: No Operative Technique: The patient brought the operating room placed supine on the table. After induction of adequate general anesthesia, the patient was placed lithotomy position. Attention was turned towards the perineal area. This was prepped with a Betadine solution. The patient was then draped in usual manner. On palpation on the right buttock we could feel this area fluctuance. It was injected with 1% lidocaine. A skin incision was made. This brought down through the skin and subcutaneous tissue. We encounter a large abscess that we were able to drain successfully. The area was then sharply debrided with a cutting surgical 11 blade. Admit it could hemostasis was ensured was now placed into the wound and brought out more laterally to keep the area open and draining in the postoperative period. The suture was tied on itself and cut. At the end of procedure she was in a stable condition when sent to the recovery room. Needle sponge instrument count were correct. Complications: None Drain(s): Other (A 2. Nylon) Transferred to: Recovery Room Condition: Good
[2020-02-13] MEDS ORDERED: KETOROLAC 30 MG/ML INJ ONE (20:04)
[2020-02-13] MEDS ORDERED: HYDROCODONE/APAP 7.5/325 MG TAB PO PRN (20:17)
[2020-02-13 20:22] VITALS: BP 114/68; TEMP 97.6; O2SAT 96
--- OUTSIDE RECORDS SUMMARY | 2020-02-18 13:56 | XMS REPORT | Continuity of Care Document ---
:1995 Author Organization [facility] t Address [address] [place] [address] Care Team Providers Name Role Phone Visit, Nurse Attending Clinician Unavailable Nacho Gil Attending Clinician AkinsiEneida Gross Attending Clinician Problems Condition Condition Condition Status Onset Resolution Last Treating Co mments Source Name Details Category Date Date Treatment Clinician Date 23 weeks 23 weeks Diagnosis Active [facility] Paronychia Paronychia Diagnosis Active [facility] of finger of finger Luke s - of left of left [facility] Allergies, Adverse Reactions, Alerts This patient has no known allergies or adverse reactions. Medications Ordered Filled Start Stop Current Ordering Indication Dosage Frequency Signature Comments Components Source Medication Medication Date Date Medication? Clinician (SIG) Name Name Yes Florencio [address] [facility] Clin[facility] Procedures This patient has no known procedures. Encounters Start End Encounter Admission Attending Care Care Encounter Source Date/Time Date/Time Type Type Clinicians Facility Department ID 2020-02-12 2020-02-12 Nurse Visit, KATINA [id number] 12:56:01 13:27:54 Visit Lenoreelly LEGAL FILE CLERK [id number] Nurse REGIONAL [id number] MATERNAL [id number] & CHILD [address] [place] [address] 2020-02-11 2020-02-11 Telephone KATINA Puckett [id number] 00:00:00 00:00:00 German Griffith LEGAL FILE CLERK [id number] REGIONAL [id number] MATERNAL [id number] & CHILD 107 [facility] 2020-02-11 2020-02-11 Telephone Krystal [facility] [id number] 00:00:00 00:00:00 Magalys Monique LEGAL FILE CLERK [id number] [facility] [id number] MATERNAL [id number] & CHILD 107 [facility] 2018-02-25 2018-02-25 [facility] [id number] [address] 08:45:00 08:45:00 t [employer] [place] [facility] Medicine Outpati ent Clinics Results This patient has no known results.
== END 2020-02-13 20:28 | disposition home or self-care (01) ==
LOC: 2ND 15:57 → ER 15:57 → 2ND 18:19 → ER 18:19 → 2ND 18:50 → UNDOADMIN 19:37 → 2ND 19:37 → ER 20:45
PROVIDERS: ATTEND Emergency Medicine
PROC: 0D9P0ZX Drainage of Rectum, Open Approach, Diagnostic (ICD-10-PCS; principal; 2020-02-13 19:00)
DX: K61.1 Rectal abscess (principal); F17.200 Nicotine dependence, unspecified, uncomplicated
CPT/HCPCS: 36415; 72193; 80048; 81003; 81025; 85025; 96374; 96375; 99285; J0330; J2250; J2704; J3010; J7120; Q9967

== ENCOUNTER 2020-04-15 17:07 | Inpatient (IN) | payer MEDICAID, SELFPAY ==
--- OUTSIDE RECORDS SUMMARY | 2020-04-15 17:10 | XMS REPORT | Continuity of Care Document ---
:1995 Author Organization [facility] t Address [address] [place] [address] Care Team Providers Name Role Phone Visit, Nurse Attending Clinician Unavailable Nacho Gil Attending Clinician Eneida Henderson Attending Clinician Problems Condition Condition Condition Status Onset Resolution Last Treating Co mments Source Name Details Category Date Date Treatment Clinician Date 23 weeks 23 weeks Diagnosis Active [facility] gestation gestation Luke s - [facility] Clinics Paronychia Paronychia Diagnosis Active [facility] of finger of finger Luke s - of left of left Memoria hand hand l [facility] ent Clinics Allergies, Adverse Reactions, Alerts This patient has no known allergies or adverse reactions. Medications Ordered Filled Start Stop Current Ordering Indication Dosage Frequency Signature Comments Components Source Medication Medication Date Date Medication? Clinician (SIG) Name Name Yes Florencio [address] [facility] Procedures This patient has no known procedures. Encounters Start End Encounter Admission Attending Care Care Encounter Source Date/Time Date/Time Type Type Clinicians Facility Department ID 2020-02-12 2020-02-12 Nurse Visit, [facility] [id number] 12:56:01 13:27:54 Visit Lenoreelly COOLING TOWER OPERATOR [id number] Nurse REGIONAL [id number] MATERNAL [id number] & CHILD [address] [place] [address] 2020-02-11 2020-02-11 Telephone KATINA Puckett [id number] 00:00:00 00:00:00 German Griffith COOLING TOWER OPERATOR [id number] REGIONAL [id number] MATERNAL [id number] & CHILD 107 [facility] 2020-02-11 2020-02-11 [place] Krystal [facility] [id number] 00:00:00 00:00:00 Magalys Monique COOLING TOWER OPERATOR [id number] REGIONAL [id number] MATERNAL [id number] & CHILD 107 [facility] 2018-02-25 2018-02-25 [id number] [facility] 08:45:00 08:45:00 t [employer] KARALIT [facility] Family Medicine Medicine Outpati ent Clinics Results This patient has no known results.
[2020-04-15 17:42] LABS: Protime INR 0.98
[2020-04-15 17:57] LABS: ALT/SGPT 23 U/L (12-78); AST/SGOT 14 U/L (15-37); Absolute Lymphocytes (CBC) 7.6 K/uL (0.7-4.9); Albumin 4.4 g/dL (3.4-5.0); Alkaline Phosphatase 93 U/L (45-117); BUN Blood Urea Nitrogen 17 mg/dL (7-18); Basophils % 0.5 % (0-1.3); Bilirubin Direct 0.1 mg/dL (0-0.2); Bilirubin Total 0.5 mg/dL (0.2-1.0); Glucose Level 351 mg/dL (74-106); Lymphocytes % 32.7 % (15.3-44.8); Potassium 4.2 mmol/L (3.5-5.1); Protein, Total 8.5 g/dL (6.4-8.2); RBC Red Blood Cell Count 5.12 M/uL (3.86-4.86); Sodium Level 139 mmol/L (136-145)
[2020-04-15 17:59] LABS: Bicarbonate 10 mmol/L (21-32)
[2020-04-15 18:00] LABS: Urine Blood 2+ (NEG); Urine Glucose 2+ (NEG); Urine Protein 3+ (NEG)
[2020-04-15] MEDS ORDERED: FOSPHENYTOIN PE 1,000 MG in NA CHLORIDE 0.9% 100 ML IV ONE (18:00)
--- NOTE | 2020-04-15 18:14 | RAD REPORT ---
EXAM DESCRIPTION: RAD - Chest Single View - 04/15/2020 5:58 pm CLINICAL HISTORY: POST ETT COMPARISON: None TECHNIQUE: AP portable chest image was obtained 04/15/2020 5:58 pm . FINDINGS: Endotracheal tube is in place. Tip is at the T5 level which is top of the aortic arch. Thi s is 2-3 cm above the emily. Right midlung field parenchymal opacification is present radiating towa rds the right hilum. Lung volumes are reduced. The right lung parenchymal finding could be right uppe r lobe atelectasis, aspiration or infiltrate. Malignancy would not be expected in a patient this age. Medial left base parenchymal opacification is present which could be atelectasis or infiltrate. Hear t and vasculature are normal. No measurable pleural effusion and no pneumothorax. No acute bony abnor mality seen. No acute aortic findings suspected. IMPRESSION: Endotracheal tube in good position 2-3 cm above the emily. Right midlung field opacification which could be right upper lobe atelectasis, infectious or aspirati on pneumonia. Suspected medial left base infiltrate or atelectasis.
--- NOTE | 2020-04-15 18:19 | RAD REPORT ---
EXAM DESCRIPTION: CT - CTHCSPWOC - 04/15/2020 6:06 pm CLINICAL HISTORY: AMS COMPARISON: No comparisons TECHNIQUE: Axial 5 mm thick images of the head were obtained. Axial 2 mm thick images of the cervic al spine were obtained with sagittal and coronal reconstruction images generated and reviewed. All CT scans are performed using dose optimization technique as appropriate and may include automated exposure control or mA/KV adjustment according to patient size. FINDINGS: No intracranial hemorrhage, mass, edema or acute intracranial finding. No suspicion for ac pokagon infarction. No anoxic injury. Gaviria matter -white matter differentiation is preserved. No cortical edema or sulcal effacement. Ventricles are normal range in size. Mastoid air cells and paranasal sin uses are clear. No globe or orbit abnormality seen. Cervical body height and alignment are normal. No disk space narrowing. No fracture or acute bony abn ormality. Central canal detail is inherently limited. No paraspinal mass or hematoma. Endotracheal tube is in place. Nasogastric tube has been placed but is curled in the oropharynx and n asopharyngeal region. Tip is in the right pyriform sinus. IMPRESSION: No cerebral edema, hemorrhage or other acute intracranial finding. Negative CT cervical spine examination for acute or significant finding. NG tube is curled in the oropharynx. Tip is in the right piriform sinus.
--- NOTE | 2020-04-15 18:19 | P.HP ---
Patient History Date of Service: 04/15/20 Reason for admission: Altered mental status History of Present Illness: Patient is a 24-year-old female with a past medical history of polysubstance abuse brought in by EMS after she was found down. He suspected that patient ingested an unknown amount of illicit drugs, synthetic marijuana suspected. She was intubated on site and brought into the ER. Initial vital signs significant for CVA tachycardia. During my assessment, patient was sedated and unable to provide a history. Her right pupils was less reactive to light. She will be admitted in the ICU. There is a CT head pending. Allergies No Known Drug Allergies Allergy (Unverified 01/24/15 02:21) Unknown No Allergy Information Availa Allergy (Uncoded 12/30/17 11:39) Unknown Home Medications: Hydrocodone 7.5/APAP 325 [[place] 7.5/325 mg] 1 tab PO Q6H PRN #10 tab 02/13/20 Physical Examination - Physical Exam General: Obese, Other (sedated) HEENT: Atraumatic, Normocephalic, Other (R pupil less reactive to light) Neck: Supple Respiratory: Clear to auscultation bilaterally, Normal air movement Cardiovascular: No edema, Regular rate/rhythm, Normal S1 S2, Other (tachycardic) Gastrointestinal: Normal bowel sounds, Soft and benign, Non-distended, No tenderness Musculoskeletal: No clubbing, No swelling, No contractures, No erythema, No tenderness, No warmth Integumentary: No rashes, No breakdown, No significant lesion, No tenderness/swelling, No erythema, No warmth, No cyanosis, Other (IO access in place) Neurological: Abnormal cranial nerve function - Studies Laboratory Data (last 24 hrs) 04/15/20 17:15: PT 11.6, INR 0.98, APTT 33.5 04/15/20 17:15: WBC 23.3 H*, Hgb 15.0, Hct 48.0 H, Plt Count 326 04/15/20 17:15: Sodium 139, Potassium 4.2, BUN 17, Creatinine 1.47 H, Glucose 351 H, Total Bilirubin 0.5, AST 14 L, ALT 23, Alkaline Phosphatase 93 Assessment and Plan - Problems (Diagnosis) (1) Toxic metabolic encephalopathy Current Visit: Yes Status: Acute (2) PATRICK (acute kidney injury) Current Visit: Yes Status: Acute (3) Polysubstance abuse Current Visit: Yes Status: Acute - Plan Assessment 24-year-old female with with multiple admissions for polysubstance abuse brought in by EMS for after mental status. Urine toxicology positive for benzodiazepines Toxic metabolic encephalopathy Acute kidney injury Tachycardia Plan: Admit to the ICU Start on propofol infusion and p.r.n. Versed for sedation EKG LR infusion Will consult crisis when mental status returns to baseline - Advance Directives Does patient have a Living Will: No Does patient have a Durable POA for Healthcare: No
[2020-04-15 18:28] LABS: Barbiturates NEGATIVE (NEGATIVE); Benzodiazepines POSITIVE (NEGATIVE); Cocaine NEGATIVE (NEGATIVE); METHAMPHETAM NEGATIVE (NEGATIVE); Methadone NEGATIVE (NEGATIVE); Opiates NEGATIVE (NEGATIVE); Phencyclidine NEGATIVE (NEGATIVE); THC Cannibis NEGATIVE (NEGATIVE)
[2020-04-15] MEDS ORDERED: propofoL 1,000 MG/100 ML VIAL IV ONE ×2 (18:38→20:59)
--- NOTE | 2020-04-15 18:42 | EDPHYS ---
Physician Documentation [facility] Name: Mitra Melendez Age: 24 yrs Sex: Female : 1995 Arrival Date: 04/15/2020 Time: 17:11 Bed 3 Private MD: ED Physician Brandon Stoll HPI: 04/15 17:16 This 24 yrs old Female presents to ER via Unassigned with complaints of AMS. kdr 17:16 The patient presents with decreased mental status, decreased responsiveness. Onset: The kdr symptoms/episode began/occurred just prior to arrival. Possible causes: CVA or TIA, drug use, alcohol, head injury, a direct blow. Associated signs and symptoms:. Current symptoms: In the emergency department the patient's symptoms The patient is intubated and unresponsive. Pupils are midline, 3 mm and nonreactive. Patient's baseline: Neuro: alert and fully oriented, Motor: no deficits, Ambulation: walks without assistance, Speech: normal for age, The patient has a previous history of chronic drug use. The patient has experienced similar episodes in the past, a few times. It is unknown whether or not the patient has recently seen a physician. See nursing notes for meds given by EMS EYEGLASS LENS GENERATOR - the patient was rapid sequenced in the field. SUPERVISOR ELECTRONICS TESTING: 18:14 LMP 04/15/2020 ks7 Historical: - Allergies: 17:26 No Known Allergies; ca1 - PMHx: 17:26 substance abuse; ca1 - PSHx: 17:26 None; ca1 - Immunization history:: Adult Immunizations unknown. - Social history:: Smoking status: unknown. ROS: 17:16 Constitutional: The patient was sedated and intubateed on arrival kdr 17:16 Unable to obtain ROS due to obtunded state. Exam: 17:20 Constitutional: This is a well developed, well nourished patient who is awake, alert, kdr and in no acute distress. Head/Face: Normocephalic, atraumatic. Neck: Trachea midline, no thyromegaly or masses palpated, and no cervical lymphadenopathy. Supple, full range of motion without nuchal rigidity, or vertebral point tenderness. No Meningismus. Chest/axilla: Normal chest wall appearance and motion. Nontender with no deformity. No lesions are appreciated. Cardiovascular: Regular rate and rhythm with a normal S1 and S2. No gallops, murmurs, or rubs. Normal PMI, no JVD. No pulse deficits. Respiratory: Lungs have equal breath sounds bilaterally, clear to auscultation and percussion. No rales, rhonchi or wheezes noted. No increased work of breathing, no retractions or nasal flaring. Abdomen/GI: Soft, non-tender, with normal bowel sounds. No distension or tympany. No guarding or rebound. No evidence of tenderness throughout. Back: No spinal tenderness. No costovertebral tenderness. Full range of motion. Skin: Warm, dry with normal turgor. Normal color with no rashes, no lesions, and no evidence of cellulitis. MS/ Extremity: Pulses equal, no cyanosis. Neurovascular intact. Full, normal range of motion. 18:39 ECG was reviewed by the Attending Physician. kdr Vital Signs: 17:09 BP 146 / 94; Pulse 144; Resp 20; Pulse Ox 99% on ETT vent; Pain 0/10; ks7 17:09 BP 128 / 82; Pulse 128; Resp 18; Pulse Ox 99% on ETT vent; Pain 0/10; ks7 17:13 BP 128 / 82; Pulse 145; Resp 16 A; Temp 96.6(A); Pulse Ox 98% on ETT vent; Weight 58.06 iw kg (R); 17:15 BP 131 / 76; Pulse 126; Resp 20 A; Pulse Ox 100% on ETT vent; ks7 17:30 BP 160 / 101; Pulse 139; Resp 20; Pulse Ox 94% ; Pain 0/10; ks7 17:45 BP 146 / 82; Pulse 134; Resp 20; Pulse Ox 90% on ETT vent; Pain 0/10; ks7 18:00 BP 134 / 70; Pulse 118; Resp 20; Pulse Ox 100% on ETT vent; Pain 0/10; ks7 18:15 BP 131 / 76; Pulse 120; Resp 20; Pulse Ox 100% on ETT vent; Pain 0/10; ks7 18:38 BP 109 / 78; Pulse 128; Resp 22; Pulse Ox 100% on ETT vent; Pain 0/10; ks7 19:45 BP 107 / 51; Pulse 115; Resp 22; Pulse Ox 98% on ETT vent; ea [place] Coma Score: 18:14 Eye Response: to pain(2). Verbal Response: none(1). Motor Response: none(1). Modifying ks7 Factors: Intubated. Total: 4. Ventilator: 17:15 Fi02: 100%; Rate: 14min; T.V.: 520ml; Peep: 5cm; Mode: CMV; ET tube: 6 mm (Oral); ks7 MDM: 18:41 Patient medically screened. kdr 18:41 Data reviewed: vital signs, nurses notes, lab test result(s), radiologic studies. kdr Counseling: I had a detailed discussion with the patient and/or guardian regarding: the historical points, exam findings, and any diagnostic results supporting the discharge/admit diagnosis, lab results, radiology results, the need for further work-up and treatment in the hospital. 04/15 17:15 Order name: Acetaminophen kdr 04/15 17:15 Order name: Basic Metabolic Panel [facility] 04/15 17:15 Order name: CBC with Diff kdr 04/15 17:15 Order name: ETOH Level [facility] 04/15 17:15 Order name: Hepatic Function kdr 04/15 17:15 Order name: PT-INR [facility] 04/15 17:15 Order name: Ptt, Activated kdr 04/15 17:15 Order name: Salicylate kdr 04/15 17:15 Order name: Urine Drug Screen [facility] 04/15 17:50 Order name: Urine Dipstick--Ancillary (enter results) eb 04/15 17:50 Order name: Urine --Ancillary (enter results) eb 04/15 17:55 Order name: Protime (+INR); Complete Time: 18:10 EDMS 04/15 17:55 Order name: PTT, Activated Partial Thromb; Complete Time: 18:10 EDMS 04/15 17:58 Order name: Alcohol Serum/Plasma; Complete Time: 18:10 EDMS 04/15 17:22 Order name: CT Head C Spine kdr 04/15 17:39 Order name: CXR XRAY iw 04/15 17:59 Order name: Basic Metabolic Panel; Complete Time: 18:10 EDMS 04/15 17:59 Order name: Liver (Hepatic) Function; Complete Time: 18:10 EDMS 04/15 17:59 Order name: Acetaminophen Level; Complete Time: 18:10 EDMS 04/15 18:01 Order name: Urine --Ancillary; Complete Time: 18:10 EDMS 04/15 18:01 Order name: Urine Dipstick-Ancillary; Complete Time: 18:10 EDMS 04/15 18:07 Order name: CBC with Automated Diff EDCT 04/15 18:15 Order name: RAD EDCT 04/15 18:18 Order name: Salicylates Level EDCT 04/15 18:21 Order name: CT EDCT 04/15 18:28 Order name: Urine Drug Screen EDCT 04/15 18:38 Order name: COVID-19 hb 04/15 19:34 Order name: CORONAVIRUS EDCT 04/15 17:15 Order name: EKG; Complete Time: 17:16 kdr 04/15 17:15 Order name: EKG - Nurse/Tech; Complete Time: 18:32 kdr 04/15 17:15 Order name: IV Saline Lock; Complete Time: 18:16 kdr 04/15 17:15 Order name: Labs collected and sent; Complete Time: 18:16 kdr 04/15 17:15 Order name: Urine Dipstick-Ancillary (obtain specimen); Complete Time: 18:16 kdr 04/15 17:15 Order name: Duenas; Complete Time: 18:32 kdr 04/15 17:15 Order name: NG Tube; Complete Time: 18:32 kdr 04/15 17:15 Order name: Urine Test (obtain specimen); Complete Time: 19:01 kdr EC:39 Rate is 128 beats/min. Rhythm is regular, Sinus tachycardia with No ectopy. QRS [employer] is kdr Normal. RI interval is normal. QRS interval is normal. QT interval is normal. Clinical impression: Sinus tachycardia. Administered Medications: 17:45 Drug: CEREbyx 1 grams Route: IVPB; Site: left antecubital; iw 18:30 Drug: Propofol 5 mcg/kg/min Route: IV; Rate: calculated rate; Site: left antecubital; iw 18:40 Follow up: Rate change 25 mcg/kg/min iw 18:33 Drug: Midazolam 2 mg Route: IVP; Site: left antecubital; ks7 Disposition: 04/15/20 18:41 Hospitalization ordered by Prince Maryjo for Inpatient Admission. Preliminary diagnosis are Altered mental status, unspecified, Epilepsy and recurrent seizures, Substance abuse. - Bed requested for Intensive Care Unit. - Status is Inpatient Admission. sg - Condition is Serious. - Problem is new. - Symptoms are unchanged. Signatures: Dispatcher [employer] EDMS Eric Zacarias RN RN sg Brandon Stoll MD MD kdr Ladonna Gross RN RN iw Gavin Resendiz, CONTINUOUS MINING MACHINE LODE MINER-C CONTINUOUS MINING MACHINE LODE MINER-Cla1 Bernadette Motley RN RN ca1 Allyssa Landis RN RN ks7 Corrections: (The following items were deleted from the chart) 20:09 18:41 Hospitalization Ordered by Prince Maryjo GAITAN for Inpatient Admission. Preliminary sg diagnosis is Altered mental status, unspecified; Epilepsy and recurrent seizures; Substance abuse. Bed requested for Intensive Care Unit. Status is Inpatient Admission. Condition is Serious. Problem is new. Symptoms are unchanged. kdr
--- NOTE | 2020-04-15 18:42 | ER ---
Nurse's Notes [facility] Name: Mitra Melendez Age: 24 yrs Sex: Female : 1995 Arrival Date: 04/15/2020 Time: 17:11 Bed 3 Private MD: Diagnosis: Altered mental status, unspecified;Epilepsy and recurrent seizures;Substance abuse Presentation: 04/15 17:13 Chief complaint: EMS states: Hx of substance abuse, synthetic weed. Seizing >30 ca1 minutes, Ativan 2mg given, Pt has minimal responsiveness, breathing at 2-4 breaths/minutes. Intubated and bagged on scene. Meds given: Succinylcholine 100mg. Rocuronium 30mg. Fentanyl 100mcg, Versed 5mg, Ketamine 150 mg. IO on R knee. Hx of previous seizure with smoking synthetic weed, hx of intubation related to synthetic weed abuse. Onset of symptoms was April 15, 2020. 17:13 Method Of Arrival: EMS: [place] [id number] 17:13 Method Of Arrival: EMS: [place] [address] 17:13 Acuity: ELBERT 1 ca1 17:13 Initial Sepsis Screen: Does the patient meet any 2 criteria? No. Patient's initial ca1 sepsis screen is negative. Does the patient have a suspected source of infection? No. Patient's initial sepsis screen is negative. Risk Assessment: Do you want to hurt yourself or someone else? Unable to obtain. 19:45 Ebola Screen: Unable to complete the Ebola screening because:. ea 19:45 Coronavirus screen: At this time, unable to obtain information related to travel ea outside the [place] 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 - Social history:: Smoking status: unknown. Screenin:14 Abuse screen: HITESH. Nutritional screening: No deficits noted. Tuberculosis screening: No ks7 symptoms or risk factors identified. Fall Risk None identified. Assessment: 18:13 Reassessment: spoke with pt's mother, Nabila Melendez ([phone]), updated on POC, iw mother states pt is known to smoke synthetic and crack, mother will call back for update in 2 hours. 18:14 General: Appears BIBA: unresponsive. 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 pt arrives ks7 intubated no sedation.. Behavior is unresponsive. Pain: Unable to use pain scale. Patient is intubated. Patient is unresponsive. Neuro: Level of Consciousness is unresponsive, Pupils are sluggish, Seizure activity reported prior to arrival. ems reports pt had seizure en route. Cardiovascular: Heart tones present ST. Respiratory: Breath sounds are diminished in right middle lobe, right lower lobe, right posterior middle lobe and right posterior lower lobe Breath sounds with wheezes in right middle lobe, right lower lobe, right posterior middle lobe and right posterior lower lobe. GI: Bowel sounds present X 4 quads. 19:24 Reassessment: pt bucking the vent. 2mg midazolam given IVP. ks7 Vital Signs: 17:09 BP 146 / 94; Pulse 144; Resp 20; Pulse Ox 99% on ETT vent; Pain 0/10; ks7 17:09 BP 128 / 82; Pulse 128; Resp 18; Pulse Ox 99% on ETT vent; Pain 0/10; ks7 17:13 BP 128 / 82; Pulse 145; Resp 16 A; Temp 96.6(A); Pulse Ox 98% on ETT vent; Weight 58.06 iw kg (R); 17:15 BP 131 / 76; Pulse 126; Resp 20 A; Pulse Ox 100% on ETT vent; ks7 17:30 BP 160 / 101; Pulse 139; Resp 20; Pulse Ox 94% ; Pain 0/10; ks7 17:45 BP 146 / 82; Pulse 134; Resp 20; Pulse Ox 90% on ETT vent; Pain 0/10; ks7 18:00 BP 134 / 70; Pulse 118; Resp 20; Pulse Ox 100% on ETT vent; Pain 0/10; ks7 18:15 BP 131 / 76; Pulse 120; Resp 20; Pulse Ox 100% on ETT vent; Pain 0/10; ks7 18:38 BP 109 / 78; Pulse 128; Resp 22; Pulse Ox 100% on ETT vent; Pain 0/10; ks7 19:45 BP 107 / 51; Pulse 115; Resp 22; Pulse Ox 98% on ETT vent; ea [place] Coma Score: 18:14 Eye Response: to pain(2). Verbal Response: none(1). Motor Response: none(1). Modifying ks7 Factors: Intubated. Total: 4. ED Course: 17:11 Patient arrived in ED. ca1 17:13 Brandon Stoll MD is Attending Physician. kdr 17:13 Arm band placed on right wrist. ca1 17:18 Triage completed. ca1 17:24 Initial lab(s) drawn, by me, sent to lab. Inserted saline lock: 20 gauge in left iw antecubital area, using aseptic technique. Blood collected. 17:40 Radiology exam delayed due to wanting to check tube placement prior to CT exam, nurse vm2 to call when ready. 18:[address] via stretcher. ks7 18:13 Allyssa Landis, DANI is Primary Nurse. ks7 18:14 Patient moved back from CT. ks7 18:14 Patient has correct armband on for positive identification. Placed in gown. Bed in low ks7 position. Call light in reach. Side rails up X2. 18:14 No provider procedures requiring assistance completed. Inserted intraosseous access ks7 tibial tuberosity. placed by EMS, flushed with 10 ml NS. 18:20 ditching machine operating engineer on. Pulse ox on. NIBP on. ks7 18:32 Acetaminophen Sent. ks7 18:32 Basic Metabolic Panel Sent. ks7 18:32 CBC with Diff Sent. ks7 18:32 PT-INR Sent. ks7 18:32 ETOH Level Sent. ks7 18:32 Hepatic Function Sent. ks7 18:32 Ptt, Activated Sent. ks7 18:32 Salicylate Sent. ks7 18:32 Urine Drug Screen Sent. ks7 18:33 CXR XRAY Sent. ks7 18:33 CT Head C Spine Sent. ks7 18:33 Urine --Ancillary (enter results) Sent. ks7 18:33 Urine Dipstick--Ancillary (enter results) Sent. ks7 18:41 Prince Sibley MD is Hospitalizing Provider. kdr Administered Medications: 17:45 Drug: CEREbyx 1 grams Route: IVPB; Site: left antecubital; iw 18:30 Drug: Propofol 5 mcg/kg/min Route: IV; Rate: calculated rate; Site: left antecubital; iw 18:40 Follow up: Rate change 25 mcg/kg/min iw 18:33 Drug: Midazolam 2 mg Route: IVP; Site: left antecubital; ks7 Output: 18:39 Urine: 750ml (Duenas); Total: 750ml. dh3 Ventilator: 17:15 Fi02: 100%; Rate: 14min; T.V.: 520ml; Peep: 5cm; Mode: CMV; ET tube: 6 mm (Oral); ks7 Outcome: 18:41 Decision to Hospitalize by Provider. kdr 20:09 Patient left the ED. sg 20:09 Admitted to ICU accompanied by nurse, accompanied by [facility], room 11, with oxygen, on ea monitor, with chart, Report called to Elsie LOUISE 20:09 Condition: stable Signatures: Eric Zacarias RN RN Brandon Stoll MD MD kdr Williams, Irene RN DANI Denia Mcelroy RN DAIN [place] [facility] Mery Robb 3 Laura Mo RN RN Bernadette Motley RN RN [facility] Allyssa Landis RN RN ks7 Corrections: (The following items were deleted from the chart) 18:17 17:13 BP 128 / 82; Pulse 145bpm; Resp 16bpm; Assisted; Pulse Ox 98% ET / Ventilator; iw 58.06 kg Reported; ca1 18:24 18:13 Reassessment: spoke with pt's mother, Nabila Melendez ([phone]), updated on iw POC, will call back for update in 2 hours, iw 18:31 18:22 BP 131 / 76; Pulse 126bpm; Resp 20bpm; Assisted; Pulse Ox 100% ET / Ventilator; iwks7 18:36 17:09 BP 128 / 82; Pulse 128bpm; Resp 18bpm; Pulse Ox 99% ET / Ventilator; Pain 0/10; ks7 ks7 18:48 17:13 Chief complaint: EMS states: Hx of substance abuse, synthetic weed. Seizing >30 ca1 minutes, Ativan 2mg given, Pt has minimal responsiveness, breathing at 2-4 breaths/minutes. Intubated on scene. Meds given: Succ 100mg. Rocuronium 30mg. Fentanyl 100mcg, Versed 5mg, Ketamine 150 mg. IO on R knee. Hx of previous seizure with smoking synthetic weed, hx of intubation related to synthetic weed abuse. ca1
[2020-04-15] MEDS ORDERED: Ringers Lactate 1,000 ML IV SCH (19:56)
[2020-04-15] MEDS ORDERED: NA CHLORIDE 0.9% 250 ML IV STA (20:21)
[2020-04-15 20:31] VITALS: BMI 25.1
[2020-04-15 20:55] LABS: Arterial Blood Carboxyhemoglob 1.7 % (0-1.5); Blood Gas Oxyhemoglobin 91.6 % (94-97)
[2020-04-15] MEDS ORDERED: NA CHLORIDE 0.9% 1,000 ML ONE (20:56)
[2020-04-15] MEDS ORDERED: NA CHLORIDE 0.9% 250 ML ONE (20:56)
[2020-04-15] MEDS: propofoL 1,000 MG/100 ML VIAL IV PRN (20:56)
[2020-04-15] MEDS: FENTANYL CITR 100 MCG/2 ML IV PRN (20:57)
[2020-04-15] MEDS: FAMOTIDINE 20 MG/2 ML VIAL IV SCH (20:57)
[2020-04-15] MEDS: NA CHLORIDE 0.9% 1,000 ML IV SCH (20:58)
[2020-04-15] MEDS ORDERED: FAMOTIDINE 20 MG/2 ML VIAL IV ONE (20:59)
[2020-04-15] MEDS ORDERED: FENTANYL CITR 100 MCG/2 ML ONE (21:04)
[2020-04-15 21:21] LABS: Blood Morphology Comment NOT SEEN (NOT SEEN); Platelet Estimate ADEQ
[2020-04-15] MEDS: MIDAZOLAM HCL 2 MG/2 ML INJ IV PRN (22:20)
[2020-04-15] MEDS ORDERED: MIDAZOLAM HCL 2 MG/2 ML INJ ONE (22:26)
[2020-04-15] MEDS: LORazepam 2 MG/ML VIAL IV PRN (23:33)
[2020-04-15] MEDS ORDERED: LORazepam 2 MG/ML VIAL ONE (23:40)
[2020-04-16] MEDS: HALOPERIDOL LACT 5 MG/ML INJ IV PRN ×2 (00:01→17:15)
[2020-04-16] MEDS: MIDAZOLAM HCL 2 MG/2 ML INJ IV PRN ×8 (00:01→20:55)
[2020-04-16] MEDS ORDERED: HALOPERIDOL LACT 5 MG/ML INJ ONE ×2 (00:10→17:14)
[2020-04-16] MEDS ORDERED: MIDAZOLAM HCL 2 MG/2 ML INJ ONE ×8 (00:10→20:51)
[2020-04-16] MEDS: FENTANYL CITR 100 MCG/2 ML IV PRN ×2 (01:12→08:40)
[2020-04-16] MEDS: propofoL 1,000 MG/100 ML VIAL IV PRN ×7 (01:12→21:18)
[2020-04-16] MEDS ORDERED: propofoL 1,000 MG/100 ML VIAL IV ONE ×3 (01:21→20:52)
[2020-04-16] MEDS ORDERED: FENTANYL CITR 100 MCG/2 ML ONE ×2 (01:21→08:50)
[2020-04-16] MEDS: NA CHLORIDE 0.9% 1,000 ML IV SCH (03:41)
[2020-04-16] MEDS ORDERED: NA CHLORIDE 0.9% 1,000 ML ONE (03:49)
[2020-04-16] MEDS: LORazepam 2 MG/ML VIAL IV PRN ×3 (05:01→17:08)
[2020-04-16] MEDS ORDERED: LORazepam 2 MG/ML VIAL ONE ×3 (05:08→17:14)
--- NOTE | 2020-04-16 07:18 | EKG ---
Test Date: 2020-04-15 Test Time: 17:20:27 Registration Rep: MURRAY Griffith MEASUREMENT RESULTS: Intervals: Rate: 128 AR: 148 QRSD: 86 QT: 308 QTc: 449 [place]: P: 61 AR: 148 QRS: 76 T: 89 INTERPRETIVE STATEMENTS: Sinus tachycardia Otherwise normal ECG No previous ECG available for comparison Electronically Signed On 04-16-20 07:17:45 CDT by Tanner Menjivar
[2020-04-16] MEDS: Ringers Lactate 1,000 ML IV SCH ×2 (08:00→17:09)
--- NOTE | 2020-04-16 08:03 | RAD REPORT ---
EXAM DESCRIPTION: RAD - Chest Single View - 04/16/2020 6:06 am CLINICAL HISTORY: Intubated, respiratory distress COMPARISON: Portable April 15 TECHNIQUE: AP portable chest image was obtained 04/16/2020 6:06 am . FINDINGS: NG tube has been repositioned and now extends well below the diaphragm. ET tube remains in good position. Right midlung field perihilar and peripheral opacification has cleared indicating that it was atelect asis. Patchy opacification remains in the medial left lung base obscured by the left heart border. Culp zy right lung base opacification is present. Lung volumes are low and motion is present degrading raheem ge quality. Heart size is upper normal. Medial right heart border is partially obscured. No pneumotho rax. IMPRESSION: NG tube has been repositioned and no extends well below the diaphragm. ET tube remains i n good position. Right midlung field atelectasis has cleared since earlier study. Patchy bilateral lung base opacification is present and may represent additional areas of atelectasis , aspiration pneumonia or infectious infiltrate.
[2020-04-16] MEDS ORDERED: Ringers Lactate 1,000 ML IV ONE ×2 (08:25→17:15)
[2020-04-16] MEDS ORDERED: FAMOTIDINE 20 MG/2 ML VIAL IV ONE ×2 (08:25→20:51)
[2020-04-16] MEDS: FAMOTIDINE 20 MG/2 ML VIAL IV SCH ×2 (09:04→20:55)
[2020-04-16 09:35] LABS: Absolute Lymphocytes (CBC) 0.9 K/uL (0.7-4.9); Basophils % 0.1 % (0-1.3); Hematocrit 39.5 % (36.0-45.0); MPV 9.3 fL (7.6-11.3); RBC Red Blood Cell Count 4.48 M/uL (3.86-4.86)
[2020-04-16 09:53] LABS: Potassium 4.3 mmol/L (3.5-5.1)
--- NOTE | 2020-04-16 11:30 | P.CNS ---
Date of Consult: 04/16/20 Reason for Consult: Respiratory failure Chief Complaint: Altered mental status History of Present Illness: Patient is 24 years of age with a history of polysubstance abuse was found to be altered patient has a history of synthetic marijuana use and was found to be unresponsive she was intubated in the emergency room continues to be very agitated requiring a lot of sedation for management all in all is at her extremities Allergies No Known Drug Allergies Allergy (Verified 04/15/20 20:40) Unknown No Allergy Information Availa Allergy (Uncoded 04/15/20 20:40) Unknown Home Medications: NK [No Home Meds] 04/16/20 - Past Medical/Surgical History Diabetic: No -: substance abuse - Social History Smoking Status: Unknown if ever smoked Place of Residence: Home Review of Systems is unable to be obtained Physical Examination Temp Pulse Resp BP Pulse Ox 98.4 F 115 H 14 109/93 H 99 04/16/20 04:00 04/16/20 06:00 04/16/20 06:00 04/16/20 06:00 04/16/20 06:00 General: Unresponsive Respiratory: Clear to auscultation bilaterally, Friction rub Cardiovascular: Normal S1 S2 Laboratory Data (last 24 hrs) 04/15/20 17:15: PT 11.6, INR 0.98, APTT 33.5 04/15/20 17:15: WBC 23.3 H*, Hgb 15.0, Hct 48.0 H, Plt Count 326 04/15/20 17:15: Sodium 139, Potassium 4.2, BUN 17, Creatinine 1.47 H, Glucose 351 H, Total Bilirubin 0.5, AST 14 L, ALT 23, Alkaline Phosphatase 93 - Problems (1) Respiratory failure Current Visit: Yes Status: Acute Plan: Patient is 24 years of age admitted with polysubstance abuse synthetic marijuana inhalation severe agitation unresponsiveness respiratory failure white count remains elevated possibility of aspiration chest x-ray shows haziness bilateral also has acute renal failure creatinine is elevated normal kidney function prior visit I have added Zosyn for the possibility of an aspiration sputum cultures continue with mechanical ventilation right now and sedation the try to wean her off tomorrow I have added CO donor and Haldol Qualifiers: Chronicity: acute Respiratory failure complication: hypoxia Qualified Code(s): J96.01 - Acute respiratory failure with hypoxia
[2020-04-16] MEDS: ZIPRASIDONE MESYLA 20 MG/VIAL IM PRN ×2 (11:48→17:09)
[2020-04-16] MEDS: WATER FOR INJ,STERILE 10 ML IM PRN ×2 (11:49→17:08)
--- NOTE | 2020-04-16 14:07 | P.PN ---
Subjective Date of Service: 04/16/20 Chief Complaint: Altered mental status Subjective: Improving (Patient is still on mechanical ventilation. Agitated earlier today, requiring multiple sedations. Unable to obtain ROS due to AMS) Physical Examination - Vital Signs Temperature: 98.4 F Blood Pressure: 109/93 Pulse: 115 Respirations: 14 Pulse Ox (%): 99 - Physical Exam General: Other (SEDATED) HEENT: Atraumatic, Normocephalic, PERRLA, EOMI Neck: Supple Respiratory: Clear to auscultation bilaterally, Normal air movement Cardiovascular: No edema, Normal pulses, Regular rate/rhythm, Normal S1 S2 Gastrointestinal: Normal bowel sounds, Soft and benign, Non-distended, No tenderness Musculoskeletal: No clubbing, No swelling, No contractures, No erythema, No tenderness, No warmth Integumentary: No rashes, No breakdown, No significant lesion, No tenderness/swelling, No erythema, No warmth, No cyanosis Neurological: Other (SEDATED) Urinary: Duenas catheter - Studies Laboratory Data (last 24 hrs) 04/15/20 17:15: PT 11.6, INR 0.98, APTT 33.5 04/15/20 17:15: WBC 23.3 H*, Hgb 15.0, Hct 48.0 H, Plt Count 326 04/15/20 17:15: Sodium 139, Potassium 4.2, BUN 17, Creatinine 1.47 H, Glucose 351 H, Total Bilirubin 0.5, AST 14 L, ALT 23, Alkaline Phosphatase 93 Assessment & Plan - Problems (Diagnosis) (1) Toxic metabolic encephalopathy Current Visit: Yes Status: Acute (2) PATRICK (acute kidney injury) Current Visit: Yes Status: Acute (3) Polysubstance abuse Current Visit: Yes Status: Acute Physician Review Additional Text: Assessment Patient is a 24 year old female without PMH admitted with toxic metabolic encephalopathy. She was found altered and seizing. There is suspicious of intentional ingestion of illicit substance, possible sythetic marijuana. She was intubated COUNSELLORS. Mother has confirmed that patient does not have any co-morbidities. Toxic metabolic encephalopathy Lactic acidosis Leukocytosis PATRICK PLAN: Continue mechanical ventilation Propofol infusion, and PRN versed Pulmonary also on board Started on zosyn for possible aspiration pneumonia There is a CT A/P due to recent hx of perineal abscess Will consult Surgery if warranted Continue daily SBT, CXR and ABG Nephrology consulted on 04/16 for persist PATRICK I will check for FeNa and obtain a renal US
--- NOTE | 2020-04-16 14:34 | RAD REPORT ---
EXAM DESCRIPTION: CT - CT CHEST,ABD,PELVIS W/O - 04/16/2020 2:19 pm CLINICAL HISTORY: ams, unresponsive, shortness of breath, abdominal pain COMPARISON: Chest Single View dated 04/16/2020 TECHNIQUE: Axial 5 millimeter thick images of the chest abdomen and pelvis were obtained following o ral contrast. The CT scan was performed using dose optimization techniques as appropriate to a performed exam incl uding one or more of the following: Automated exposure control, adjustment of the mA and/or kV accord ing to patient size (this includes techniques or standardized protocols for targeted exams where dose is matched to indication/reason for exam) and use of iterative reconstruction technique. FINDINGS: Endotracheal tube is in place. Tip is at the aortic arch level well above the emily. NG t ube is in place. Tip is curled in the antrum of the stomach. Dense consolidation is present in the right lower lobe sparing only a small portion of the superior s egment. Mildly large consolidation fills much of the left lower lobe extending from the medial aspect of the superior segment into the posterior gutter. Left upper lobe is spared. Patchy alveolar opacif ication present in the right upper lobe and right middle lobe. No pleural effusions or pneumothorax. No endobronchial lesion. No abnormal mediastinal or hilar mass or lymphadenopathy. Heart size is norm al. No pericardial effusion. No cavitation within the lung parenchyma. The liver, spleen, pancreas, kidneys and adrenal glands show no suspicious findings on noncontrast im aging. Patient may have punctate gallstones. An active gallbladder process is doubtful. No biliary tr ee dilatation. Urinary bladder is contracted around a Duenas catheter. No uterine or left ovarian abno rmality. Fullness of the right ovary is probably a small cyst. Significant right ovarian process is d oubtful. No fallopian tube dilatation. Oral CT contrast has reached the rectum. There is no dilated large or small bowel loop. No bowel wall thickening or mass. No extravasation of the contrast. No free air, free fluid or inflammatory strand ing. No bulky lymphadenopathy, mass or hernia. No bony abnormality. No suspicion for at a significant vascular process. IMPRESSION: Bilateral right greater than left consolidation involving majority of each lobe. Patchy infiltrates seen in the right upper lobe and right middle lobe. Given the history, bilateral aspiration pneumonia would be a primary consideration. None aspiration b acterial pneumonia remains a consideration. Given the current clinical environment, COVID-19 pneumonia is not excluded. However, this would not b e the most common presentation for that disease process. No acute or significant finding seen below the diaphragm.
[2020-04-16] MEDS ORDERED: PIPER/TAZO/NS 4.5gm 4.5 GM/100 ML BAG IVPB SCH (17:00)
[2020-04-16] MEDS: PIPER/TAZO/NS 3.375gm 3.375 GM/100 ML BAG IVPB SCH (17:10)
[2020-04-16] MEDS ORDERED: PIPER/TAZO/NS 3.375gm 3.375 GM/100 ML BAG ONE ×2 (17:15→20:51)
[2020-04-16] MEDS ORDERED: ZIPRASIDONE MESYLA 20 MG/VIAL IM ONE (17:15)
[2020-04-16] MEDS ORDERED: WATER FOR INJ,STERILE 10 ML ONE (17:15)
[2020-04-16] MEDS ORDERED: LABETALOL 20 MG/4ML SYRINGE IV ONE ×2 (18:03→18:17)
[2020-04-16] MEDS ORDERED: MIDAZOLAM HCL 2 MG/2 ML INJ IV PRN (19:10)
[2020-04-16] MEDS ORDERED: LABETALOL 20 MG/4ML SYRINGE IV PRN (19:13)
[2020-04-16] MEDS ORDERED: NA CHLORIDE 0.9% 0 ML IV ONE (21:25)
[2020-04-16] MEDS ORDERED: NA CHLORIDE 0.9% 100 ML ONE (21:55)
[2020-04-16] MEDS ORDERED: CISATRACURIUM INJECTION 2 MG/ML (10 ML Vial) IV ONE (21:55)
[2020-04-16 21:57] LABS: Potassium 5.5 mmol/L (3.5-5.1)
[2020-04-17] MEDS: PIPER/TAZO/NS 3.375gm 3.375 GM/100 ML BAG IVPB SCH ×3 (00:46→17:45)
[2020-04-17] MEDS: Ringers Lactate 1,000 ML IV SCH ×2 (00:46→07:49)
[2020-04-17] MEDS: MIDAZOLAM HCL 2 MG/2 ML INJ IV PRN ×8 (00:47→20:55)
[2020-04-17] MEDS: propofoL 1,000 MG/100 ML VIAL IV PRN ×6 (00:47→19:43)
[2020-04-17] MEDS ORDERED: MIDAZOLAM HCL 2 MG/2 ML INJ ONE ×9 (00:54→21:02)
[2020-04-17] MEDS ORDERED: propofoL 1,000 MG/100 ML VIAL IV ONE ×4 (00:54→18:03)
[2020-04-17] MEDS ORDERED: Ringers Lactate 1,000 ML IV ONE ×2 (00:54→07:51)
[2020-04-17 05:49] LABS: Absolute Lymphocytes (CBC) 1.8 K/uL (0.7-4.9); Basophils % 0.3 % (0-1.3); Hematocrit 39.8 % (36.0-45.0); Lymphocytes % 10.5 % (15.3-44.8); MPV 10.4 fL (7.6-11.3)
[2020-04-17 06:27] LABS: Magnesium 2.8 mg/dL (1.8-2.4); Potassium 5.2 mmol/L (3.5-5.1)
[2020-04-17] MEDS: WATER FOR INJ,STERILE 10 ML IM PRN (07:48)
[2020-04-17] MEDS: ZIPRASIDONE MESYLA 20 MG/VIAL IM PRN ×2 (07:48→17:55)
[2020-04-17] MEDS: FAMOTIDINE 20 MG/2 ML VIAL IV SCH ×2 (07:49→20:08)
[2020-04-17] MEDS ORDERED: WATER FOR INJ,STERILE 10 ML ONE ×2 (07:51→18:03)
[2020-04-17] MEDS ORDERED: FAMOTIDINE 20 MG/2 ML VIAL IV ONE ×2 (07:51→20:11)
[2020-04-17] MEDS ORDERED: ZIPRASIDONE MESYLA 20 MG/VIAL IM ONE ×2 (07:51→18:03)
[2020-04-17] MEDS ORDERED: PIPER/TAZO/NS 3.375gm 3.375 GM/100 ML BAG ONE ×2 (07:52→16:18)
--- NOTE | 2020-04-17 08:22 | RAD REPORT ---
EXAM DESCRIPTION: RAD - Chest Single View - 04/17/2020 6:41 am CLINICAL HISTORY: Intubated Chest pain. COMPARISON: Chest Single View dated 04/16/2020; Chest Single View dated 04/15/2020; CT CHEST,ABD,PELVIS W/O dated 04/16/2020 FINDINGS: Portable technique limits examination quality. Tip of the ET tube is above the emily. Enteric tube descends into the abdomen. Moderate right lower lobe and mild left retrocardiac consolidations are evident most compatible with pneumonia. Findings a ppear mildly progressive since comparative study.
[2020-04-17] MEDS: D5 0.45 NS 1,000 ML IV SCH ×3 (10:19→22:20)
[2020-04-17] MEDS ORDERED: D5 0.45 NS 1,000 ML IV ONE ×2 (10:20→18:01)
--- NOTE | 2020-04-17 11:41 | P.PN ---
Subjective Date of Service: 04/21/20 Chief Complaint: Respiratory failure aspiration pneumonia Patient's condition is stable still on a ventilator chest CT scan shows bilateral pneumonia right worse than left probably aspirated renal function is slightly worse although is improving hypernatremia Review of Systems is unable to be obtained Physical Examination - Vital Signs Temperature: 98.8 F Blood Pressure: 126/85 Pulse: 119 Respirations: 21 Pulse Ox (%): 93 - Physical Exam General: Unresponsive Respiratory: Clear to auscultation bilaterally Cardiovascular: No edema, Regular rate/rhythm Assessment & Plan - Problems (Diagnosis) (1) Respiratory failure Current Visit: Yes Status: Acute Plan: Patient admitted with respiratory failure secondary to aspiration pneumonia agree with changing to D5 water continue with present treatment vital signs stable patient is on assist-control ventilation 50% oxygen and 5 of peep has acidosis from renal failure Qualifiers: Chronicity: acute Respiratory failure complication: hypoxia Qualified Code(s): J96.01 - Acute respiratory failure with hypoxia
--- NOTE | 2020-04-17 11:43 | RAD REPORT ---
EXAM DESCRIPTION: US - Renal Ultrasound-Complete - 04/17/2020 8:24 am CLINICAL HISTORY: PATRICK Flank pain COMPARISON: No comparisons FINDINGS: Both kidneys are normal in size, shape and echotexture. The right kidney measures 12.7 x 5.9 x 4.3 cm. No hydronephrosis, focal mass or perinephric fluid. The left kidney measures 13.1 x 5.6 x 5.6 cm. No hydronephrosis, focal mass or perinephric fluid. The urinary bladder is incompletely distended without gross abnormality seen. IMPRESSION: Unremarkable renal sonogram.
[2020-04-17] MEDS ORDERED: LORazepam 2 MG/ML VIAL ONE ×3 (12:24→18:02)
[2020-04-17] MEDS: LORazepam 2 MG/ML VIAL IV PRN ×3 (12:25→17:54)
--- NOTE | 2020-04-17 12:47 | P.PN ---
Subjective Date of Service: 04/17/20 Chief Complaint: Respiratory failure aspiration pneumonia Subjective: Improving (Unable to obtain ROS. Still intubated.) Physical Examination - Vital Signs Temperature: 98.8 F Blood Pressure: 126/85 Pulse: 119 Respirations: 21 Pulse Ox (%): 93 - Physical Exam General: Other (sedated, intubated) HEENT: Atraumatic, Normocephalic, PERRLA, EOMI Neck: Supple Respiratory: Diminished, Other (no wheezing or crackles) Cardiovascular: No edema, Regular rate/rhythm, Normal S1 S2, Other (tachycardiac) Gastrointestinal: Normal bowel sounds, Soft and benign, Non-distended, No tenderness Musculoskeletal: No clubbing, No swelling, No contractures, No erythema, No tenderness, No warmth Integumentary: No rashes, No breakdown, No significant lesion, No tenderness/swelling, No erythema, No warmth, No cyanosis Neurological: Other (sedated) Urinary: Duenas catheter Assessment & Plan - Problems (Diagnosis) (1) Toxic metabolic encephalopathy Current Visit: Yes Status: Acute (2) PATRICK (acute kidney injury) Current Visit: Yes Status: Acute (3) Polysubstance abuse Current Visit: Yes Status: Acute Physician Review Additional Text: Assessment Patient is a 24 year old female without PMH except for tobacco smoking brought in by EMS after she was found altered and seizing. Intubated on site. Work up so far showing aspiration pneumonia. CT Head unremarkable. There was suspicious of intentional ingestion of illicit substance, possibly synthetic marijuana. Utox + benzodiazepines. Mother has confirmed that patient does not have any co-morbidities. Toxic metabolic encephalopathy Lactic acidosis Leukocytosis PATRICK Hypernatremia PLAN: Continue mechanical ventilation Propofol infusion, neuromuscular blockade as per Pulmonary PRN versed Started on free water replacement and D5 1/2 NS for hypernatremia Consult Neurology to address questionable seizure Continue zosyn (day 3) for possible aspiration pneumonia Low risk for MRSA Continue daily SBT, CXR and ABG Nephrology consulted on 04/16 for persist PATRICK
[2020-04-17] MEDS: CISATRACURIUM 40 MG in NS 100 ML IV PRN ×2 (13:15→19:43)
[2020-04-17] MEDS ORDERED: ENOXAPARIN 40 MG/0.4 ML SQ ONE (16:18)
[2020-04-17 16:29] LABS: Potassium 3.6 mmol/L (3.5-5.1)
[2020-04-17] MEDS: ENOXAPARIN 40 MG/0.4 ML SQ SCH (17:45)
[2020-04-17] MEDS: HALOPERIDOL LACT 5 MG/ML INJ IV PRN (17:54)
[2020-04-17] MEDS ORDERED: HALOPERIDOL LACT 5 MG/ML INJ ONE (18:02)
[2020-04-17] MEDS ORDERED: LABETALOL 20 MG/4ML SYRINGE IV ONE (18:03)
[2020-04-17] MEDS ORDERED: ACETAMINOPHEN 500 MG TAB ONE (18:29)
[2020-04-17] MEDS ORDERED: VANCOMYCIN 1.75 GM in NA CHLORIDE 0.9% 500 ML IVPB ONE (18:37)
[2020-04-17] MEDS ORDERED: VANCOMYCIN 1 GM/VIAL ONE (20:11)
[2020-04-17] MEDS ORDERED: NA CHLORIDE 0.9% 500 ML ONE (20:14)
[2020-04-17] MEDS: FENTANYL CITR 100 MCG/2 ML IV PRN (20:55)
[2020-04-17] MEDS ORDERED: FENTANYL CITR 100 MCG/2 ML ONE (21:02)
[2020-04-17] MEDS ORDERED: CISATRACURIUM INJECTION 2 MG/ML (10 ML Vial) IV ONE (22:01)
[2020-04-17] MEDS ORDERED: NA CHLORIDE 0.9% 100 ML ONE (22:01)
[2020-04-18] MEDS: PIPER/TAZO/NS 3.375gm 3.375 GM/100 ML BAG IVPB SCH ×3 (00:07→16:56)
[2020-04-18] MEDS ORDERED: PIPER/TAZO/NS 3.375gm 3.375 GM/100 ML BAG ONE ×2 (00:16→12:14)
[2020-04-18] MEDS: CISATRACURIUM 40 MG in NS 100 ML IV PRN ×4 (00:55→21:29)
[2020-04-18] MEDS: propofoL 1,000 MG/100 ML VIAL IV PRN ×3 (00:55→20:44)
[2020-04-18] MEDS: FENTANYL CITR 100 MCG/2 ML IV PRN ×2 (04:42→09:15)
[2020-04-18] MEDS: ZIPRASIDONE MESYLA 20 MG/VIAL IM PRN (04:43)
[2020-04-18] MEDS: WATER FOR INJ,STERILE 10 ML IM PRN (04:43)
[2020-04-18] MEDS ORDERED: FENTANYL CITR 100 MCG/2 ML ONE (04:50)
[2020-04-18] MEDS ORDERED: WATER FOR INJ,STERILE 10 ML ONE (04:51)
[2020-04-18] MEDS ORDERED: ZIPRASIDONE MESYLA 20 MG/VIAL IM ONE (04:51)
[2020-04-18 05:12] LABS: Magnesium 2.4 mg/dL (1.8-2.4); Potassium 3.4 mmol/L (3.5-5.1)
[2020-04-18 06:34] LABS: Blood Gas Oxyhemoglobin 86.6 % (94-97); Blood O2 Saturation 88.6 % (92-98.5)
[2020-04-18] MEDS: D5 0.45 NS 1,000 ML IV SCH ×3 (06:49→17:52)
[2020-04-18] MEDS ORDERED: D5 0.45 NS 1,000 ML IV ONE ×2 (06:58→12:14)
[2020-04-18] MEDS ORDERED: POTASSIUM 25 MEQ EFFERV TAB PO ONE (08:16)
[2020-04-18] MEDS: ENOXAPARIN 40 MG/0.4 ML SQ SCH (09:00)
[2020-04-18] MEDS: FAMOTIDINE 20 MG/2 ML VIAL IV SCH ×2 (09:00→20:44)
[2020-04-18] MEDS ORDERED: MIDAZOLAM HCL 2 MG/2 ML INJ ONE (09:55)
[2020-04-18] MEDS ORDERED: HALOPERIDOL LACT 5 MG/ML INJ ONE (09:56)
[2020-04-18] MEDS ORDERED: LORazepam 2 MG/ML VIAL ONE (09:56)
[2020-04-18] MEDS ORDERED: propofoL 1,000 MG/100 ML VIAL IV ONE ×3 (10:00→20:27)
--- NOTE | 2020-04-18 11:34 | RAD REPORT ---
EXAM DESCRIPTION: RAD - Chest Single View - 04/18/2020 5:56 am CLINICAL HISTORY: intubated Chest pain. COMPARISON: Chest Single View dated 04/17/2020; Chest Single View dated 04/16/2020; Chest Single View da francesca 04/15/2020 FINDINGS: Portable technique limits examination quality. Since 04/17/2020, little overall change is seen in the appearance of the chest. Tip of the ET tube is above the emily. Enteric tube descends into the upper abdomen. Right lung base pleural and parenchy mal opacification is unchanged.
[2020-04-18] MEDS ORDERED: POTASSIUM 25 MEQ EFFERV TAB ONE (12:13)
[2020-04-18] MEDS ORDERED: ENOXAPARIN 40 MG/0.4 ML SQ ONE (12:14)
[2020-04-18] MEDS ORDERED: FAMOTIDINE 20 MG/2 ML VIAL IV ONE ×2 (12:14→20:26)
[2020-04-18] MEDS: MIDAZOLAM HCL 2 MG/2 ML INJ IV PRN (12:30)
[2020-04-18] MEDS: LORazepam 2 MG/ML VIAL IV PRN (12:53)
--- NOTE | 2020-04-18 12:57 | P.PN ---
Date of Service: 04/18/20 Subjective Subjective: I was able to speak to the mother. She was really upset about what was going on with her daughter. She states she has not spoken to anyone at this time. She is taking care of patients 1-year-old daughter. According to the mother patient had a similar episode in 2018 when she was . She was intubated and remained on the ventilator for 2-3 days. She was extubated but she did return back to doing synthetic marijuana. I told her at this time we are concerned about her neurologic status. Will do imaging studies in the morning and I will contact her regarding the results of the imaging study. Patient on paralytics so unable really examine patient. She apparently becomes tachycardic and tachypneic as well as being agitated whenever they wean down the paralytics and sedatives. I will get a CT scan of the brain and the chest to further evaluate. Physical Examination - Vital Signs reviewed - Physical Exam General: Other (sedated, intubated) Respiratory: Diminished, Other (no wheezing or crackles) Cardiovascular: No edema, Regular rate/rhythm, Normal S1 S2, Other (tachycardiac) Gastrointestinal: Normal bowel sounds, Soft and benign, Non-distended, No tenderness Musculoskeletal: No clubbing, No swelling, No contractures, No erythema, No tend erness, No warmth Integumentary: No rashes, No breakdown, No significant lesion, No tenderness/swelling, No erythema, No warmth, No cyanosis Neurological: Other (sedated) Assessment & Plan - Problems (Diagnosis) (1) Toxic metabolic encephalopathy with respiratory failure secondary to drug OD Current Visit: Yes Status: Acute (2) PATRICK (acute kidney injury) Current Visit: Yes Status: Acute (3) Polysubstance abuse Current Visit: Yes Status: Acute (4) Lactic acidois Current Visit: Yes Status: Acute (5) Hypernatremia Current Visit: Yes Status: Acute PLAN: -Continue mechanical ventilation per Pulmonary -Propofol infusion as well as paralytics per Pulmonary; hopefully we can wean these off and reassess -CT of the brain and chest to evaluate for cerebral edema/anoxic brain injury as well as etiology for degree of hypoxemia -Started on free water replacement and D5 1/2 NS for hypernatremia; monitor Q 12 -Consult Neurology-patient may need EEG; will see how she wakes up once we stopped the paralytics & the sedatives -Continue Zosyn (day #4) for possible aspiration pneumonia -Continue daily SBT, CXR and ABG; these will be managed in conjunction with Pulmonary -Nephrology consultation appreciated
[2020-04-18] MEDS: VANCOMYCIN 1.5 GM in NA CHLORIDE 0.9% 500 ML IVPB SCH (15:11)
[2020-04-18] MEDS: HALOPERIDOL LACT 5 MG/ML INJ IV PRN (17:56)
[2020-04-18] MEDS ORDERED: VANCOMYCIN 1.5 GM in NA CHLORIDE 0.9% 500 ML IVPB SCH (20:00)
--- NOTE | 2020-04-18 21:28 | P.CNS ---
Date of Consult: 04/18/20 Reason for Consult: PATRICK Requesting Physician: Derrek Caraballo Chief Complaint: Respiratory failure aspiration pneumonia History of Present Illness: Patient is a 24-year-old female with a past medical history of polysubstance abuse brought in by EMS after she was found down. He suspected that patient ingested an unknown amount of illicit drugs, synthetic marijuana suspected. She was intubated on site and brought into the ER. Initial vital signs significant for CVA tachycardia. During my assessment, patient was sedated and unable to provide a history. Her right pupils was less reactive to light. She will be admitted in the ICU. There is a CT head pending. 17:16 This 24 yrs old Female presents to ER via Unassigned with complaints of AMS. kdr 17:16 The patient presents with decreased mental status, decreased responsiveness. Onset: The kdr symptoms/episode began/occurred just prior to arrival. Possible causes: CVA or TIA, drug use, alcohol, head injury, a direct blow. Associated signs and symptoms:. Current symptoms: In the emergency department the patient's symptoms The patient is intubated and unresponsive. Pupils are midline, 3 mm and nonreactive. Patient's baseline: Neuro: alert and fully oriented, Motor: no deficits, Ambulation: walks without assistance, Speech: normal for age, The patient has a previous history of chronic drug use. The patient has experienced similar episodes in the past, a few times. It is unknown whether or not the patient has recently seen a physician. 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 Allergies No Known Drug Allergies Allergy (Verified 04/15/20 20:40) Unknown No Allergy Information Availa Allergy (Uncoded 04/15/20 20:40) Unknown Home medications list reviewed: Yes Home Medications: NK [No Home Meds] 04/16/20 - Past Medical/Surgical History Diabetic: No -: substance abuse - Social History Smoking Status: Unknown if ever smoked Place of Residence: Home Review of Systems is unable to be obtained Physical Examination Temp Pulse Resp BP Pulse Ox 99.1 F 130 H 14 143/98 H 98 04/18/20 12:00 04/18/20 18:00 04/18/20 18:00 04/18/20 18:00 04/18/20 18:00 General: Comatose HEENT: Atraumatic Neck: Supple Respiratory: Clear to auscultation bilaterally Cardiovascular: Regular rate/rhythm Gastrointestinal: Soft and benign, Non-distended Musculoskeletal: No clubbing, No contractures Integumentary: No rashes, No cyanosis Neurological: Normal speech Blood work reviewed in the chart. Imagings Data: EXAM DESCRIPTION: RAD - Chest Single View - 04/18/2020 5:56 am CLINICAL HISTORY: intubated Chest pain. COMPARISON: Chest Single View dated 04/17/2020; Chest Single View dated 04/16/2020; Chest Single View dated 04/15/2020 FINDINGS: Portable technique limits examination quality. Since 04/17/2020, little overall change is seen in the appearance of the chest. Tip of the ET tube is above the emily. Enteric tube descends into the upper abdomen. Right lung base pleural and parenchymal opacification is unchanged. Conclusions/Impression: A/ PATRICK, improving. Proteinuria Hypernatremia Hyperkalemia/ Hypokalemia Acidosis Hypocalcemia Mild rhabdomyolysis Hyperglycemia Acute respiratory failure Toxic metabolic encephalopathy Polysubstance abuse P/ Continue current POC and Medications. Continue ventilatory support. Continue sedation. Continue abx. Continue IVF. Replete potassium. No NSAIDS. AM labs. Daily weight. Thank you kindly for the consultation.
[2020-04-19] MEDS: PIPER/TAZO/NS 3.375gm 3.375 GM/100 ML BAG IVPB SCH ×3 (00:14→17:00)
[2020-04-19] MEDS ORDERED: propofoL 1,000 MG/100 ML VIAL IV ONE ×4 (00:51→23:12)
[2020-04-19] MEDS: propofoL 1,000 MG/100 ML VIAL IV PRN ×6 (00:56→20:22)
[2020-04-19] MEDS: CISATRACURIUM 40 MG in NS 100 ML IV PRN (01:44)
[2020-04-19] MEDS ORDERED: D5 0.45 NS 1,000 ML IV ONE ×2 (03:23→20:54)
[2020-04-19] MEDS: D5 0.45 NS 1,000 ML IV SCH ×3 (03:41→20:47)
[2020-04-19 04:39] LABS: Basophils % 0.3 % (0-1.3); Hematocrit 37.2 % (36.0-45.0); Lymphocytes % 8.6 % (15.3-44.8); MPV 9.3 fL (7.6-11.3); RBC Red Blood Cell Count 4.16 M/uL (3.86-4.86)
[2020-04-19 04:58] LABS: Albumin 2.5 g/dL (3.4-5.0); Bilirubin Total 0.4 mg/dL (0.2-1.0); Magnesium 2.2 mg/dL (1.8-2.4); Phosphorus 2.7 mg/dL (2.5-4.9); Potassium 3.7 mmol/L (3.5-5.1); Protein, Total 6.3 g/dL (6.4-8.2)
[2020-04-19] MEDS ORDERED: KCL 20 MEQ/100 mL IVPB 20 MEQ/100 ML BAG IV SCH (06:00)
[2020-04-19] MEDS ORDERED: KCL 20 MEQ/100 mL IVPB 20 MEQ/100 ML BAG IV ONE (06:58)
--- NOTE | 2020-04-19 07:27 | RAD REPORT ---
EXAM DESCRIPTION: RAD - Chest Single View - 04/19/2020 6:03 am CLINICAL HISTORY: pneumonia, intubation COMPARISON: April 18 TECHNIQUE: AP portable chest image was obtained 04/19/2020 6:03 am . FINDINGS: Endotracheal tube and NG tube remain in place. NG tube tip is 2 cm above the emily. Bilateral pleural and parenchymal opacification remain. There has been no improvement from comparison . Heart size normal. No pneumothorax. IMPRESSION: Bilateral pleural and parenchymal opacification stable from prior imaging. NG tube extends below the diaphragm. ET tube remains in good position.
--- NOTE | 2020-04-19 08:22 | RAD REPORT ---
EXAM DESCRIPTION: CT - Head Brain Wo Cont - 04/19/2020 8:05 am CLINICAL HISTORY: Anoxic injury COMPARISON: Head C Spine Mpr Wo Con dated 04/15/2020 TECHNIQUE: Axial 5 mm thick images of the head were obtained without IV contrast. All CT scans are performed using dose optimization technique as appropriate and may include automated exposure control or mA/KV adjustment according to patient size. FINDINGS: No focal hemorrhage or mass identified. The iyer matter -white matter differentiation is d iminished compared to the prior study. Ventricles are slightly smaller. Basilar cisterns are still pr esent. No midline shift is present. A focal acute cortical based on vent is not identifiable. No abno rmal extra-axial fluid collections. Mastoid air cells are clear. Sphenoid sinus mucosal thickening present. No acute bony findings. IMPRESSION: Mild cerebral edema pattern compared April 15 imaging. No hemorrhage or focal mass lesion. No midline shift.
--- NOTE | 2020-04-19 08:28 | RAD REPORT ---
EXAM DESCRIPTION: CT - Chest For Pe Angio - 04/19/2020 8:05 am CLINICAL HISTORY: hypoxemia COMPARISON: CT CHEST,ABD,PELVIS W/O dated 04/16/2020; Head Brain Wo Cont dated 04/19/2020 TECHNIQUE: Dynamically enhanced 3 mm thick images of the chest were obtained during administration o f approximately 150mL Isovue 370 IV contrast. Coronal and oblique MIP reconstruction images were gene rated and reviewed. Exam utilizes a protocol to evaluate the pulmonary arterial tree. All CT scans are performed using dose optimization technique as appropriate and may include automated exposure control or mA/KV adjustment according to patient size. FINDINGS: No pulmonary emboli are identified. The aorta as imaged shows no acute or suspicious finding. No pericardial thickening or effusion. Bilateral lower lobe consolidation again noted. Air bronchograms are present throughout the opacified lower lobes. Small bilateral pleural effusions are present. Minimal airspace opacification present i n the posteroinferior aspect of each upper lobe. No pneumothorax. Endotracheal tube is in place. Tip is 1- 2 cm above the tracheal bifurcation. NG tube extends into the stomach. No mediastinal or hilar suspicious masses. No chest wall masses or abnormal axillary lymphadenopathy. No cardiomegaly or pericardial effusion. IMPRESSION: No pulmonary emboli identified. Bilateral lower lobe consolidation not substantially different from comparison. Small bilateral pleur al effusions are present as well.
[2020-04-19] MEDS: VANCOMYCIN 1.5 GM in NA CHLORIDE 0.9% 500 ML IVPB SCH (08:44)
--- NOTE | 2020-04-19 08:47 | P.PN ---
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 she has been required paralytic drugs including propofol for severe agitation Physical Examination - Vital Signs Temperature: 99.2 F Blood Pressure: 139/99 Pulse: 114 Respirations: 14 Pulse Ox (%): 98 - Physical Exam General: Unresponsive Cardiovascular: No edema, Regular rate/rhythm Assessment & Plan - Problems (Diagnosis) (1) Respiratory failure Current Visit: Yes Status: Acute Plan: Patient admitted with respiratory failure secondary to pneumonia CT scan shows bilateral consolidation in she also has marked cerebral edema clinically she is improving white count has decreased significantly renal function is now normal plan to try to wean her off from the ventilator when she is more awake blood cultures are negative negro virus tests is negative reduce ventilatory support Qualifiers: Chronicity: acute Respiratory failure complication: hypoxia Qualified Code(s): J96.01 - Acute respiratory failure with hypoxia
[2020-04-19] MEDS: FAMOTIDINE 20 MG/2 ML VIAL IV SCH ×2 (08:55→20:46)
[2020-04-19] MEDS: ENOXAPARIN 40 MG/0.4 ML SQ SCH (08:55)
[2020-04-19] MEDS ORDERED: ENOXAPARIN 40 MG/0.4 ML SQ ONE (09:00)
[2020-04-19] MEDS ORDERED: FAMOTIDINE 20 MG/2 ML VIAL IV ONE ×2 (09:00→20:54)
[2020-04-19] MEDS ORDERED: PIPER/TAZO/NS 3.375gm 3.375 GM/100 ML BAG ONE ×2 (09:00→15:49)
[2020-04-19] MEDS ORDERED: LORazepam 2 MG/ML VIAL ONE (19:35)
[2020-04-19] MEDS: LORazepam 2 MG/ML VIAL IV PRN (19:49)
[2020-04-19] MEDS: MIDAZOLAM HCL 2 MG/2 ML INJ IV PRN ×2 (20:46→23:03)
[2020-04-19] MEDS ORDERED: MIDAZOLAM HCL 2 MG/2 ML INJ ONE ×2 (20:54→23:12)
[2020-04-19] MEDS ORDERED: VANCOMYCIN 1.5 GM in NA CHLORIDE 0.9% 500 ML IVPB SCH (21:00)
[2020-04-19] MEDS ORDERED: NA CHLORIDE 0.9% 100 ML IV ONE (21:22)
[2020-04-19] MEDS ORDERED: CISATRACURIUM INJECTION 2 MG/ML (10 ML Vial) IV ONE (21:24)
[2020-04-20] MEDS ORDERED: CISATRACURIUM INJECTION 2 MG/ML (10 ML Vial) IV ONE (00:18)
[2020-04-20] MEDS: MIDAZOLAM HCL 2 MG/2 ML INJ IV PRN ×3 (00:26→06:04)
[2020-04-20] MEDS: propofoL 1,000 MG/100 ML VIAL IV PRN ×2 (00:27→03:55)
[2020-04-20] MEDS: PIPER/TAZO/NS 3.375gm 3.375 GM/100 ML BAG IVPB SCH ×3 (00:28→19:25)
[2020-04-20] MEDS ORDERED: MIDAZOLAM HCL 2 MG/2 ML INJ ONE ×3 (00:35→06:13)
[2020-04-20] MEDS ORDERED: NA CHLORIDE 0.9% 100 ML IV ONE (00:35)
[2020-04-20] MEDS ORDERED: propofoL 1,000 MG/100 ML VIAL IV ONE (03:56)
--- NOTE | 2020-04-20 08:43 | P.PN ---
Subjective Date of Service: 04/21/20 Chief Complaint: Respiratory failure aspiration pneumonia doing much better he is more alert responsive wants to be extubated Physical Examination - Vital Signs Temperature: 98.5 F Blood Pressure: 94/72 Pulse: 100 Respirations: 14 Pulse Ox (%): 99 Assessment & Plan - Problems (Diagnosis) (1) Respiratory failure Current Visit: Yes Status: Acute Plan: patient admitted with bilateral pneumonia secondary to aspiration currently doing well Dc all this sedation and paralytic agents wean off and extubated Qualifiers: Chronicity: acute Respiratory failure complication: hypoxia Qualified Code(s): J96.01 - Acute respiratory failure with hypoxia
--- NOTE | 2020-04-20 09:15 | P.PN ---
Date of Service: 04/19/20 Subjective Subjective: The patient's CT scan shows some cerebral edema. CT of the chest shows consolidated pneumonia; patient remains hypoxic. Patient is responses somewhat off of sedatives and paralytics. She is able to interact more appropriately today. Hopefully will be able to wean her off the ventilator and possibly extubate over the next 48 hrs. Will speak with mother as well as additional family member regarding patient's plan of care Physical Examination - Vital Signs reviewed - Physical Exam General: Other (sedated, intubated) Respiratory: Diminished, Other (no wheezing or crackles) Cardiovascular: No edema, Regular rate/rhythm, Normal S1 S2, Other (tachycardiac) Gastrointestinal: Normal bowel sounds, Soft and benign, Non-distended, No tenderness Musculoskeletal: No clubbing, No swelling, No contractures, No erythema, No tenderness, No warmth Integumentary: No rashes, No breakdown, No significant lesion, No tenderness/swelling, No erythema, No warmth, No cyanosis Neurological: Other (sedated) Assessment & Plan - Problems (Diagnosis) (1) Toxic metabolic encephalopathy with respiratory failure secondary to drug OD and aspiration pneumonia/hypoxemia Current Visit: Yes Status: Acute (2) PATRICK (acute kidney injury) Current Visit: Yes Status: Acute (3) Polysubstance abuse Current Visit: Yes Status: Acute (4) Lactic acidois Current Visit: Yes Status: Acute (5) Hypernatremia Current Visit: Yes Status: Acute PLAN: -Continue mechanical ventilation per Pulmonary -Propofol infusion as well as paralytics per Pulmonary; hopefully we can wean these off and reassess neurologic status -CT of the brain reveals mild cerebral edema; CT of the chest with consolidated pneumonia bilaterally -sodium level is improving. -awaiting neurology consultation. Patient will need further diagnostic studies during hospital stay. -Continue Zosyn (day #5) for possible aspiration pneumonia -renal function improving. Urine output adequate.
--- NOTE | 2020-04-20 09:19 | P.PN ---
Date of Service: 04/20/20 Subjective Subjective: Patient more responsive. However, she does get tachycardic and tachypneic. Continue monitoring closely and working on extubating her over the next couple of days. Physical Examination - Vital Signs reviewed - Physical Exam General: Other (sedated, intubated) Respiratory: Diminished, Other (no wheezing or crackles) Cardiovascular: No edema, Regular rate/rhythm, Normal S1 S2, Other (tachycardiac) Gastrointestinal: Normal bowel sounds, Soft and benign, Non-distended, No tenderness Musculoskeletal: No clubbing, No swelling, No contractures, No erythema, No tenderness, No warmth Integumentary: No rashes, No breakdown, No significant lesion, No tenderness/swelling, No erythema, No warmth, No cyanosis Neurological: Other (sedated) Assessment & Plan - Problems (Diagnosis) (1) Toxic metabolic encephalopathy with respiratory failure secondary to drug OD and aspiration pneumonia/hypoxemia Current Visit: Yes Status: Acute (2) PATRICK (acute kidney injury) Current Visit: Yes Status: Acute (3) Polysubstance abuse Current Visit: Yes Status: Acute (4) Lactic acidois Current Visit: Yes Status: Acute (5) Hypernatremia Current Visit: Yes Status: Acute PLAN: Continue with plan of care as mentioned below: -Continue mechanical ventilation per Pulmonary -Propofol infusion as well as paralytics per Pulmonary; hopefully we can wean these off and reassess neurologic status -CT of the brain reveals mild cerebral edema; CT of the chest with consolidated pneumonia bilaterally; continue supportive care as well as care with antibiotics -sodium level is improving. -awaiting neurology consultation. Patient will need further diagnostic studies during hospital stay. -Continue Zosyn (day #5) for possible aspiration pneumonia -renal function improving. Urine output adequate.
[2020-04-20] MEDS: ENOXAPARIN 40 MG/0.4 ML SQ SCH (10:21)
[2020-04-20] MEDS ORDERED: ENOXAPARIN 40 MG/0.4 ML SQ ONE (10:31)
[2020-04-20] MEDS ORDERED: PIPER/TAZO/NS 3.375gm 3.375 GM/100 ML BAG ONE (10:31)
[2020-04-21] MEDS: PIPER/TAZO/NS 3.375gm 3.375 GM/100 ML BAG IVPB SCH ×3 (01:09→17:05)
[2020-04-21] MEDS ORDERED: POTASSIUM 25 MEQ EFFERV TAB ONE (02:10)
[2020-04-21] MEDS: ENOXAPARIN 40 MG/0.4 ML SQ SCH (08:29)
[2020-04-21] MEDS ORDERED: ENOXAPARIN 40 MG/0.4 ML SQ ONE (08:39)
[2020-04-22] MEDS: PIPER/TAZO/NS 3.375gm 3.375 GM/100 ML BAG IVPB SCH ×2 (00:26→09:25)
[2020-04-22 09:07] VITALS: O2SAT 96
[2020-04-22] MEDS: ENOXAPARIN 40 MG/0.4 ML SQ SCH (09:25)
[2020-04-22 11:35] LABS: Basophils % 0.3 % (0-1.3); Hematocrit 32.7 % (36.0-45.0); MPV 9.3 fL (7.6-11.3)
[2020-04-22 11:48] LABS: BUN Blood Urea Nitrogen 9 mg/dL (7-18); Bicarbonate 23 mmol/L (21-32); Glucose Level 99 mg/dL (74-106); Sodium Level 146 mmol/L (136-145)
[2020-04-22 11:51] LABS: Potassium 2.3 mmol/L (3.5-5.1)
[2020-04-22] MEDS ORDERED: POTASSIUM 25 MEQ EFFERV TAB PO STA ×2 (12:52)
[2020-04-22] MEDS ORDERED: KCL 20 MEQ/100 mL IVPB 20 MEQ/100 ML BAG IV STA (12:53)
[2020-04-22] MEDS ORDERED: KCL 20 MEQ/100 mL IVPB 20 MEQ/100 ML BAG IV SCH (13:00)
[2020-04-22] MEDS ORDERED: NA CHLORIDE 0.9% 250 ML ONE (13:18)
[2020-04-22 13:39] VITALS: BP 122/77; TEMP 98
[2020-04-22] MEDS ORDERED: POTASSIUM 25 MEQ EFFERV TAB PO ONE (16:23)
--- NOTE | 2020-04-22 17:48 | CON ---
Reason For Consultation: Consultation was called because patient was found altered with blood at [place] of her head and blood in the mouth and suspected of using synthetic marijuana. History Of Present Illness: Ms. Melendez is a 24-year-old patient with a history of polysubsta nce abuse and depression, who was found down again with blood in the back of her head and mouth and w as unresponsive. She was found on April 15 and was intubated for ventilatory support and protection and brought to [facility] where she was found to be in tachycardia and admitted to the ICU. There was some pupillary asymmetry. She did have trauma to the head and cervical spine series, whic h showed no cerebral edema or other findings. Negative for cervical spine findings or other issues. However, there was a repeat CT scan, which was done on the that is 4 days after that showed mil d cerebral edema compared to April 15 study. However, clinically the patient improved significantl y and has been up and moving around and is appropriate, although she does have some features of pedro with flight of ideas and rapid speech that appears pressured. The workup for infection revealed no evidence of pneumonia. There were some small bilateral pleural effusions. No pulmonary emboli ident ified. Initially, her white blood cell count was elevated at 23,300, but then over 7 days steadily c naomy down and now is 9.1, which is normal. She did have, however, elevated neutrophils of 80.1 in her recent blood work. Her liver function studies showed slightly elevated AST of 60. Beta natriuretic peptide elevated at 15,505. Procalcitonin on the was elevated to 1.14 and lactic acid was elev ated at 7.3, which may have been consistent with either a seizure potentially or an infection. She d id have on sputum E. coli to grow. This was from 04/20 and she was put on antibiotics Zosyn 3.375 mg per 100 mL 8 hours. She did have electrolyte replacement and IV fluids and blood pressure managemen t along with DVT prophylaxis. Past Medical History: As indicated. Surgical History: None. Allergies: NO KNOWN DRUG ALLERGIES. Medications: At home, hydrocodone 7.5 mg every 6 hours as needed. Family History: Noncontributory. Review of Systems: Prior to the episode, she denied any known history of seizures, stroke, and trauma. Admits to multip le drug use and reported thoughts of social stressors and said she was seen by a psychiatrist and was followed by counselors for drug use. Physical Examination: Vital Signs: Blood pressure 122/77, pulse 89, respiratory rate 18, temperature 98.0, oxygen saturati on 96% on room air. Weight 175 pounds, height 5 feet 10 inches, BMI 25.1. General: Ms. Manriquez is in bed. She is in no acute distress. She is normocephalic, atraumatic. Scl erae anicteric. Oropharynx is moist and pink. Neck: Supple. Chest: Clear. Heart: Regular. Extremities: Show no edema, cyanosis, or clubbing. Neurological: She is alert and oriented to situation, place, and person. Follows all commands appro priately. No cranial nerve, motor, sensory, coordination or gait deficits. She does have as mention ed some flight of ideas and rapid pressured speech. Assessment: Ms. Melendez is a 24-year-old patient with a possible seizure potentially related to synthet ic marijuana use. Her urine drug screen was positive for benzodiazepines, which she may have receive d in the field, otherwise negative. She does have a psychiatric history and potentially has used oth er medications prescribed and illegal drugs. Plan: At this point, she is back to baseline, but she needs to be followed in a psychiatric facility to continue treatment to become free of illegal drugs. She likely had a provoked seizure and theref ore will not necessarily have diagnosis of epilepsy. However, she should not drive a car or operate heavy machinery for 90 days from April 15, 2020. After discharge, she may follow up with Dr. Az oconnell in clinic 1 month later, may have an EEG and full epilepsy workup at that point. No antiepileptic me dications at this time. LB/MODL Voice ID: [id number] Report ID: [id number]
[2020-04-22] MEDS ORDERED: ENSURE HIGH PROTEIN 237 ML CAN PO SCH (21:00)
--- NOTE | 2020-04-26 13:42 | P.PN ---
Date of Service: 04/21/20 Subjective Subjective: She continues to do well with no new complaint. Physical Examination - Vital Signs reviewed - Physical Exam General: Other (sedated, intubated) Respiratory: Diminished, Other (no wheezing or crackles) Cardiovascular: No edema, Regular rate/rhythm, Normal S1 S2, Other (tachycardiac) Gastrointestinal: Normal bowel sounds, Soft and benign, Non-distended, No tenderness Musculoskeletal: No clubbing, No swelling, No contractures, No erythema, No tenderness, No warmth Integumentary: No rashes, No breakdown, No significant lesion, No tenderness/swelling, No erythema, No warmth, No cyanosis Neurological: Other (sedated) Assessment & Plan - Problems (Diagnosis) (1) Toxic metabolic encephalopathy with respiratory failure secondary to drug OD and aspiration pneumonia/hypoxemia Current Visit: Yes Status: Acute (2) PATRICK (acute kidney injury) Current Visit: Yes Status: Acute (3) Polysubstance abuse Current Visit: Yes Status: Acute (4) Lactic acidois Current Visit: Yes Status: Acute (5) Hypernatremia Current Visit: Yes Status: Acute PLAN: Continue with plan of care as mentioned below: -Respiratory status is improved -Continue with antibiotic therapy -sodium level is improving. -awaiting neurology consultation. Patient will need further diagnostic studies during hospital stay. -Continue Zosyn -renal function improving. Urine output adequate.
--- NOTE | 2020-04-26 13:45 | P.DS ---
Discharge Date: 04/22/20 Disposition: ROUTINE DISCHARGE Discharge Condition: GOOD Reason for Admission: Respiratory failure aspiration pneumonia Consultations: Pulmonary Brief History of Present Illness: Patient is a 24-year-old female who was admitted after overdose. She apparently had multiple seizures after the overdose. She was placed on the mechanical ventilation. She was admitted for further evaluation. Hospital Course: Patient is clinically doing well with no new complaints. She has improved substantially. She will follow up as an outpatient for rehab for her addiction to synthetic marijuana. She is scheduled to go to [facility]. Vital Signs/Physical Exam: Temp Pulse Resp BP Pulse Ox 98.0 F 89 18 122/77 92 04/22/20 12:00 04/22/20 12:00 04/22/20 12:00 04/22/20 12:00 04/22/20 12:00 General: Alert, In no apparent distress, Oriented x3 Laboratory Data at Discharge: WBC 9.1 K/uL (4.3-10.9) D 04/22/20 11:23 Hgb 11.1 g/dL (12.0-15.0) L 04/22/20 11:23 Hct 32.7 % (36.0-45.0) L 04/22/20 11:23 Plt Count 204 K/uL (152-406) D 04/22/20 11:23 PT 11.6 SECONDS (9.5-12.5) 04/15/20 17:15 INR 0.98 04/15/20 17:15 APTT 33.5 SECONDS (24.3-36.9) 04/15/20 17:15 Sodium 146 mmol/L (136-145) H 04/22/20 11:23 Potassium 2.9 mmol/L (3.5-5.1) L* 04/22/20 15:32 BUN 9 mg/dL (7-18) 04/22/20 11:23 Creatinine 0.51 mg/dL (0.55-1.3) L 04/22/20 11:23 Glucose 99 mg/dL (74-106) 04/22/20 11:23 Phosphorus 2.7 mg/dL (2.5-4.9) 04/19/20 04:25 Magnesium Cancelled 04/19/20 05:00 Total Bilirubin 0.4 mg/dL (0.2-1.0) 04/19/20 04:25 AST 60 U/L (15-37) H 04/19/20 04:25 ALT 63 U/L (12-78) 04/19/20 04:25 Alkaline Phosphatase 117 U/L (45-117) 04/19/20 04:25 Home Medications: Amox/Clavulanate [Augmentin 875-125 Tab] 1 each PO BID #14 tab 04/22/20 Potassium Chloride [K-Dur] 20 meq PO DAILY #7 tab.er.prt 04/22/20 New Medications: Amox/Clavulanate [Augmentin 875-125 Tab] 1 each PO BID #14 tab Potassium Chloride [K-Dur] 20 meq PO DAILY #7 tab.er.prt Patient Discharge Instructions: OK TO DC IV AND DC HOME. FOLLOW-UP WITH PRIMARY CARE PROVIDER IN 1-2 DAYS. Return to the ER if any worsening in symptoms. [facility] CALL or TEXT DR. RIDDLE AT [phone] IF ANY QUESTIONS REGARDING HOSPITAL STAY. PLEASE CALL THE FLOOR AT [phone] IF ANY MEDICATION OR NURSING QUESTIONS. Diet: Regular Activity: Fall precautions Time spent managing pt's care (in minutes): 25
== END 2020-04-22 16:51 | disposition home or self-care (01) | DRG 917 ==
LOC: ER 17:07 → ERHOLD 17:42 → 2ND 04-21 15:52
PROVIDERS: ADMIT Internal Medicine; ATTEND Hospitalist
PROC: 5A1955Z Respiratory Ventilation, Greater than 96 Consecutive Hours (ICD-10-PCS; principal; 2020-04-15)
DX: T40.7X2A Poisoning by cannabis (derivatives), intentional self-harm, initial encounter (principal); G92 Toxic encephalopathy; J96.01 Acute respiratory failure with hypoxia; J69.0 Pneumonitis due to inhalation of food and vomit; R40.20 Unspecified coma; N17.9 Acute kidney failure, unspecified; E87.2 Acidosis; E87.0 Hyperosmolality and hypernatremia; M62.82 Rhabdomyolysis; F19.10 Other psychoactive substance abuse, uncomplicated; D72.829 Elevated white blood cell count, unspecified; E87.6 Hypokalemia; E83.51 Hypocalcemia; R00.0 Tachycardia, unspecified; R73.9 Hyperglycemia, unspecified; R80.9 Proteinuria, unspecified; E66.9 Obesity, unspecified; Z68.25 Body mass index [BMI] 25.0-25.9, adult; Z79.891 Long term (current) use of opiate analgesic; Z11.59 Encounter for screening for other viral diseases
CPT/HCPCS: 36415; 36680; 70450; 71045; 71250; 71275; 72125; 74176; 76770; 80048; 80053; 80076; 80307; 80320; 80329; 81003; 81025; 82550; 82570; 82805; 83605; 83735; 83880; 84100; 84132; 84145; 84300; 85025; 85379; 85610; 85730; 87040; 87070; 87077; 87186; 87205; 93005; 94002; 94003; 96374; 96375; 97112; 97116; 97161; 99291; J1630; J1650; J2250; J2543; J2704; J3010; J3370; J3480; J3486; J7030; J7040; J7050; J7120; J7799; Q2009; U0003

== ENCOUNTER 2020-06-05 13:07 | Emergency (ER) | payer OTHER, SELFPAY ==
--- OUTSIDE RECORDS SUMMARY | 2020-06-05 13:09 | XMS REPORT | Summary of Care ---
:1995 Author Organization [facility] Address [address] [place] [address] Care Team Providers Name Role Phone Magalys Rice [facility] Primary Care Provider [phone] Reason for Visit Reason Comments Assessment rash yeast Encounter Details Date Type Department Care Team Description 05/02/2020 Telephone [facility]- German Puckett As sessment (Estela woodruff FINANCIAL AID yeast) [address] [place] [address] [place] [id number] [place] [address] [phone] [id number] [phone] Allergies No Known Allergiesdocumented as of this encounter (statuses as of 05/02/2020) Medications Medication Sig Dispensed Refills Start Date End Date Status hydrocortisone 25 mg Insert 1 30 Suppository 1 02/09/2020 Active suppositoryIndicatio Suppository into ns: Internal rectum 2 (two) thrombosed times daily. 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 08/10/2019 Well woman exam 08/04/2018 Encounter for contraceptive management, unspecified ty pe 08/04/2018 Screening examination for venereal disease 08/04/2018 Tobacco use disorder 08/04/2018 documented as of this encounter (statuses as of 05/02/2020) Resolved Problems Problem Noted Date Resolved Date [...] as of this encounter (statuses as of 05/02/2020) Immunizations Name Administration Dates Next Due HPV9 09/17/2019, 08/05/2019, 06/19/2018 (Deferred: - no consent) Influenza Virus Vaccine Quad .5 mL 08/05/2019 IM 6+ MO TDAP 05/08/2018 documented as of this encounter Social History Tobacco Use Types Packs/Day Years Used Date Current Every Day Smoker Cigarettes 0.5 10 Sta rted: 10/04/2007 Smokeless Tobacco: Never Used Alcohol Use Drinks/Week oz/Week Comments No 0 Standard drinks or equivalent 0.0 Sex Assigned at Date Recorded Not on file documented as of this encounter Last Filed Vital Signs Not on filedocumented in this encounter Miscellaneous Notes Telephone Encounter - Melissa Narayan N - 05/02/2020 2:34 PM CDTTjosé miguelgurwinder Melendez is a 24 year old female Was in the hospital for about a week and has been out for about a week. Believes she has a yeast infection since they gave her antibiotics and said this would probably happen. Is having a lot of vaginal itching. Also has a rash. It started when she left the hospital. She has been using aloe vera which has helped, but it is not gone. Would like something for the yeast infection and some cream for the rash if possible. Please call. documented in this encounter Plan of Treatment Date Type Specialty Care Team Description 05/13/2020 Readiness Paraprofessional Visit [facility], [facility] Health Maintenance Due Date Last Done Comments HPV VACCINES (3 - 3-dose 02/03/2020 09/17/2019, 08/05/2019 series) INFLUENZA VACCINE (#1) 2020 08/05/2019 Depression Screening 08/05/2020 08/05/2019 MENINGOCOCCAL B VACCINES (1 08/05/2020 Post poned from of 2 - Risk Bexsero 2-dose 12/15 (Insurance series) / Financial) CHLAMYDIA SCREENING 02/08/2021 02/09/2020, 10/16/2019, 08/05/2019, Additional history exists PAP SMEAR 08/04/2021 08/04/2018 DTaP,Tdap,and Td Vaccines 05/08/2028 05/08/2018 (2 - Td) PNEUMOCOCCAL 0-64 YEARS Discontinued COMBINED SERIES documented as of this encounter Results Not on filedocumented in this encounter Insurance Payer Benefit Plan Subscriber ID Effective Phone Address Typ e / Group Dates [facility] [id number] 2019-Pres [phone] Medicaid WOMEN ent [address] [place] [address] documented as of this encounter Advance Directives Name Relationship Healthcare Agent Relationship Co mmunication [facility] Care Agent
--- OUTSIDE RECORDS SUMMARY | 2020-06-05 13:09 | XMS REPORT | Summary of Care ---
:1995 Author Organization [facility] Address [address] [place] [address] Care Team Providers Name Role Phone Magalys Rice [facility] Primary Care Provider [phone] Reason for Visit Reason Comments Assessment rash yeast Encounter Details Date Type Department Care Team Description 05/02/2020 Telephone [facility]- German Puckett As sessment (Estela woodruff DRILL SETUP OPERATOR yeast) [address] [place] [address] [place] [id number] [place] [address] [phone] [phone] Allergies No Known Allergiesdocumented as of this [...] this encounter Miscellaneous Notes Telephone Encounter - Lois Rome RN - 05/02/2020 3:14 PM CDTPt states she was on antibiotics and may now have a yeast infection. Pt has not tried anything. Pt will try Monistat OTC for 5 or 7 days. Pt will call back if no improvement or if new or worsening symptoms for provider visit. Pt verbalized understanding. LOIS ROME RN 05/02/2020 3:15 PM Telephone Encounter - Melissa Narayan - 05/02/2020 2:34 PM CDTTjosé miguelgurwinder Melendez [...] Date Type Specialty Care Team Description 05/13/2020 Tube Dispatcher Visit [facility], [facility] Health Maintenance Due Date Last Done Comments [...] Address Typ e / Group Dates [facility] [id number] 2019-Pres [phone] Medicaid WOMEN ent [address] [place] [address] documented as of this encounter Advance Directives Name Relationship Healthcare Agent Relationship Co mmunication [facility] Care Agent
--- OUTSIDE RECORDS SUMMARY | 2020-06-05 13:09 | XMS REPORT | Summary of Care ---
:1995 Author Organization [facility] Address [address] [place] [address] Care Team Providers Name Role Phone Magalys Rice [facility] Primary Care Provider [phone] Reason for Visit Reason Comments Assessment rash yeast Encounter Details Date Type Department Care Team Description 05/02/2020 Telephone [facility]- German Puckett As sessment (Estela woodruff AUTOMATION TENDER yeast) [address] [place] [address] [place] [id number] [place] [address] [phone] Allergies No Known Allergiesdocumented as of this [...] Date Type Specialty Care Team Description 05/13/2020 Deputy Clerk Visit [facility], [facility] Health Maintenance Due Date Last Done Comments [...] Address Typ e / Group Dates [facility] [id number] 2019-Pres [phone] Medicaid WOMEN ent [address] [place] [address] documented as of this encounter Advance Directives Name Relationship Healthcare Agent Relationship Co mmunication [facility] Care Agent
--- OUTSIDE RECORDS SUMMARY | 2020-06-05 13:09 | XMS REPORT | Continuity of Care Document ---
:1995 Author Organization [facility] t Address [address] [place] [address] Care Team Providers Name Role Phone Nacho Gil Attending Clinician Problems Condition Condition Condition Status Onset Resolution Last Treating Co mments Source Name Details Category Date Date Treatment Clinician Date 23 weeks 23 weeks Diagnosis Active [facility] gestation gestation [facility] - [facility] Paronychia Paronychia Diagnosis Active [facility] of finger of finger Luke s - of left of left Memoria hand hand l [facility] Allergies, Adverse Reactions, Alerts This patient has no known allergies or adverse reactions. Medications Ordered Filled Start Stop Current Ordering Indication Dosage Frequency Signature Comments Components Source Medication Medication Date Date Medication? Clinician (SIG) Name Name Yes Florencio [address] [facility] Procedures This patient has no known procedures. Encounters Start End Encounter Admission Attending Care Care Encounter Source Date/Time Date/Time Type Type Clinicians Facility Department ID 2020-05-02 2020-05-02 Telephone It[facility] [id number] 00:00:00 00:00:00 German Griffith MUTUEL [id number] [facility] [id number] MATERNAL [id number] & CHILD 107 [facility] 2018-02-25 2018-02-25 [facility] [id number] 08:45:00 08:45:00 t [place] [address] - [address] [facility] Results This patient has no known results.
[2020-06-05] MEDS ORDERED: KETOROLAC 30 MG/ML INJ ONE (13:57)
--- NOTE | 2020-06-05 14:32 | ER ---
Nurse's Notes [facility] Name: Mitra Melendez Age: 24 yrs Sex: Female : 1995 Arrival Date: 06/05/2020 Time: 13:10 Bed 17 Private MD: Diagnosis: Pain in left knee;Unspecified internal derangement of left knee Presentation: 06/05 13:33 Chief complaint: Patient states: Pain to left knee since last night, happened while ll1 skating. Reports left knee buckled. Coronavirus screen: Client denies travel out of the [place] in the last 14 days. At this time, the client does not indicate any symptoms associated with coronavirus-19. Ebola Screen: Patient denies travel to an Ebola-affected area in the 21 days before illness onset. Initial Sepsis Screen: Does the patient meet any 2 criteria? HR > 90 bpm. Risk Assessment: Do you want to hurt yourself or someone else? Patient reports no desire to harm self or others. Onset of symptoms was June 04, 2020. 13:33 Method Of Arrival: Ambulatory ll1 13:33 Acuity: ELBERT 4 ll1 Triage Assessment: 13:38 General: Appears in no apparent distress. uncomfortable, Behavior is cooperative, bp appropriate for age, anxious. Pain: Complains of pain in left knee. EENT: No deficits noted. Neuro: No deficits noted. Cardiovascular: No deficits noted. Respiratory: No deficits noted. GI: No signs and/or symptoms were reported involving the gastrointestinal system. : No signs and/or symptoms were reported regarding the genitourinary system. Derm: No deficits noted. Musculoskeletal: Reports pain in left knee. Injury Description: Bruise sustained to left knee. Historical: - Allergies: 13:34 No Known Allergies; ll1 - PMHx: 13:34 Substance Abuse; ll1 - PSHx: 13:34 None; ll1 - Immunization history:: Flu vaccine is up to date. - Social history:: Smoking status: Patient reports the use of cigarette tobacco products, smokes one pack cigarettes per day. Screenin:39 Abuse screen: Denies threats or abuse. Denies injuries from another. Nutritional bp screening: No deficits noted. Tuberculosis screening: No symptoms or risk factors identified. Fall Risk None identified. Assessment: 13:39 General: SEE TRIAGE NOTE. bp 15:05 Reassessment: PT D/C HOME WITH CRUTCHES, DX WITH LEFT KNEE INTERNAL DERANGEMENT. bp Vital Signs: 13:33 BP 110 / 67; Pulse 100; Resp 18; Temp 99.2; Pulse Ox 99% ; Pain 6/10; ll1 15:05 BP 117 / 59; Pulse 98; Resp 18; Temp 99; Pulse Ox 99% ; bp ED Course: 13:10 Patient arrived in ED. mr 13:23 ForeignElijah NP is PHCP. pm1 13:23 Brandon Stoll MD is Attending Physician. pm1 13:34 Triage completed. ll1 13:34 Arm band placed on Patient placed in an exam room, on a stretcher. ll1 13:37 Timothy Sawyer, RN is Primary Nurse. bp 13:39 Patient has correct armband on for positive identification. Bed in low position. Call bp light in reach. Side rails up X2. 15:05 No provider procedures requiring assistance completed. Patient did not have IV access bp during this emergency room visit. Administered Medications: 13:40 Drug: TORadol 60 mg Route: IM; Site: right gluteus; bp 15:04 Follow up: Response: Pain is decreased bp Outcome: 14:32 Discharge ordered by MD. pm1 15:05 Discharged to home ambulatory, with crutches. bp 15:05 Condition: stable 15:05 Discharge instructions given to patient, Instructed on discharge instructions, follow up and referral plans. crutch walking, Demonstrated understanding of instructions, follow-up care, medications, crutch walking, splint care. 15:08 Patient left the ED. bp Signatures: Miryam Watts Narcisa Gómezrick, SUSU DRAFTSPERSON pm1 Timothy Sawyer, RN RN bp Ismael Hubbard RN RN ll1
--- NOTE | 2020-06-05 14:33 | EDPHYS ---
Physician Documentation [facility] Name: Mitra Melendez Age: 24 yrs Sex: Female : 1995 Arrival Date: 06/05/2020 Time: 13:10 Bed 17 Private MD: ED Physician Brandon Stoll HPI: 06/05 14:28 This 24 yrs old Female presents to ER via Ambulatory with complaints of Left pm1 Knee Injury. 14:28 The patient presents with pain, swelling. The complaints affect the left knee. Context: pm1 resulted from left knee buckled while she was roller blading, the patient can partially bear weight, the patient is able to ambulate, with mild difficulty, Problem is a result from a previous injury: No. Onset: The symptoms/episode began/occurred last night. Modifying factors: The symptoms are alleviated by elevating leg, the symptoms are aggravated by weight bearing, bending knee. Associated signs and symptoms: Pertinent positives: swelling, Pertinent negatives calf tenderness, fever, nausea, numbness, tingling, vomiting. Treatment prior to arrival includes: over the counter medications. Severity of symptoms: in the emergency department the symptoms are unchanged. The patient has not recently seen a physician. Historical: - Allergies: 13:34 No Known Allergies; ll1 - PMHx: 13:34 Substance Abuse; ll1 - PSHx: 13:34 None; ll1 - Immunization history:: Flu vaccine is up to date. - Social history:: Smoking status: Patient reports the use of cigarette tobacco products, smokes one pack cigarettes per day. ROS: 14:28 Constitutional: Negative for fever, chills, and weight loss. pm1 14:28 Skin: Negative for injury, rash, and discoloration, Neuro: Negative for headache, weakness, numbness, tingling, and seizure. 14:28 MS/extremity: Positive for pain, swelling, tenderness, of the left knee, Negative for decreased range of motion, deformity. 14:28 All other systems are negative. Exam: 14:28 Constitutional: This is a well developed, well nourished patient who is awake, alert, pm1 and in no acute distress. Head/Face: Normocephalic, atraumatic. 14:28 Back: No spinal tenderness. No costovertebral tenderness. Full range of motion. Skin: Warm, dry with normal turgor. Normal color with no rashes, no lesions, and no evidence of cellulitis. 14:28 Cardiovascular: Exam negative for acute changes, Rate: normal, Rhythm: regular, Pulses: no pulse deficits are appreciated. 14:28 Respiratory: Exam negative for acute changes, respiratory distress, shortness of breath. 14:28 Musculoskeletal/extremity: Extremities: grossly normal except: noted in the left knee: ecchymosis, swelling, tenderness, There is no evidence of deformity, ROM: full active range of motion, full passive range of motion, Circulation is intact in all extremities. 14:28 Neuro: Exam negative for acute changes, Orientation: is normal, Motor: is normal, moves all fours, Sensation: is normal, no obvious gross deficits. Vital Signs: 13:33 BP 110 / 67; Pulse 100; Resp 18; Temp 99.2; Pulse Ox 99% ; Pain 6/10; ll1 15:05 BP 117 / 59; Pulse 98; Resp 18; Temp 99; Pulse Ox 99% ; bp MDM: 13:23 Patient medically screened. pm1 14:31 Data reviewed: vital signs. Data interpreted: Pulse oximetry: on room air is 99 %. pm1 Interpretation: normal. Counseling: I had a detailed discussion with the patient and/or guardian regarding: the historical points, exam findings, and any diagnostic results supporting the discharge/admit diagnosis, radiology results, the need for outpatient follow up, for definitive care, a orthopedic surgeon, to return to the emergency department if symptoms worsen or persist or if there are any questions or concerns that arise at home. 06/05 13:29 Order name: Knee Left 3 View XRAY pm1 06/05 14:45 Order name: RAD; Complete Time: 14:53 EDMS 06/05 13:29 Order name: Knee Immobilizer; Complete Time: 15:04 pm1 06/05 13:29 Order name: Crutches; Complete Time: 15:04 pm1 Administered Medications: 13:40 Drug: TORadol 60 mg Route: IM; Site: right gluteus; bp 15:04 Follow up: Response: Pain is decreased bp Disposition: 16:35 Co-signature as Attending Physician, Brandon Stoll MD I agree with the assessment and kdr plan of care. Disposition: 06/05/20 14:32 Discharged to Home. Impression: Pain in left knee, Unspecified internal derangement of left knee. - Condition is Stable. - Discharge Instructions: Crutch Use, Knee Immobilizer, Knee Pain. - Prescriptions for Diclofenac Sodium 75 mg Oral Tablet, Delayed Release (E.C.) - take 1 tablet by ORAL route 2 times per day As needed; 30 tablet. - Medication Reconciliation Form, Thank You Letter, Antibiotic Education, Prescription Opioid Use form. - Follow up: Emergency Department; When: As needed; Reason: Worsening of condition. Follow up: Private Physician; When: 2 - 3 days; Reason: Recheck today's complaints, Continuance of care, Re-evaluation by your physician. - Problem is new. - Symptoms have improved. Signatures: Dispatcher [employer] EDMS Brandon Stoll MD MD [facility] Elijah Carrasquillo NP SLINGER SEQUINS pm1 Timothy Sawyer RN RN bp Ismael Hubbard RN RN ll1 Corrections: (The following items were deleted from the chart) 15:08 14:32 06/05/2020 14:32 Discharged to Home. Impression: Pain in left knee; Unspecified bp internal derangement of left knee. Condition is Stable. Forms are Medication Reconciliation Form, Thank You Letter, Antibiotic Education, Prescription Opioid Use. Follow up: Emergency Department; When: As needed; Reason: Worsening of condition. Follow up: Private Physician; When: 2 - 3 days; Reason: Recheck today's complaints, Continuance of care, Re-evaluation by your physician. Problem is new. Symptoms have improved. pm1
--- NOTE | 2020-06-05 14:44 | RAD REPORT ---
EXAM DESCRIPTION: RAD - Knee Left 3 View - 06/05/2020 2:20 pm CLINICAL HISTORY: Pain;Swelling COMPARISON: No comparisons FINDINGS: No fracture, dislocation or periosteal reaction.Small joint effusion is present. No joint space narrowing. No soft tissue abnormality. IMPRESSION: Small joint effusion with no acute bone finding. Clinical concerns for internal derangement or occult bony injury could be further assessed with MR im aging.
[2020-06-05 15:23] VITALS: O2SAT 99
[2020-06-05 15:24] VITALS: BP 117/59; TEMP 99
== END 2020-06-05 15:08 | disposition home or self-care (01) ==
LOC: ER 13:07
DX: M23.92 Unspecified internal derangement of left knee (principal); F17.210 Nicotine dependence, cigarettes, uncomplicated
CPT/HCPCS: 96372; 99283

== ENCOUNTER 2020-07-13 15:16 | Emergency (ER) | payer SELFPAY ==
--- OUTSIDE RECORDS SUMMARY | 2020-07-13 15:22 | XMS REPORT | Continuity of Care Document ---
:1995 Author Organization [facility] t Address [address] [place] [address] Care Team Providers Name Role Phone Nacho Gil Attending Clinician Problems Condition Condition Condition Status Onset Resolution Last Treating Co mments Source Name Details Category Date Date Treatment Clinician Date 23 weeks 23 weeks Diagnosis Active [facility] Paronychia Paronychia Diagnosis Active [facility] of finger of finger Luke s - of left of left Memoria hand hand l [facility] Allergies, Adverse Reactions, Alerts This patient has no known allergies or adverse reactions. Medications Ordered Filled Start Stop Current Ordering Indication Dosage Frequency Signature Comments Components Source Medication Medication Date Date Medication? Clinician (SIG) Name Name Yes Florencio [address] [facility] Procedures This patient has no known procedures. Encounters Start End Encounter Admission Attending Care Care Encounter Source Date/Time Date/Time Type Type Clinicians Facility Department ID 2020-05-02 2020-05-02 Telephone Italo [facility] [id number] 00:00:00 00:00:00 German Griffith PATHOLOGY SECRETARY/TRANSCRIPTIONIST [id number] [facility] [id number] MATERNAL [id number] & CHILD 107 [facility] 2018-02-25 2018-02-25 [facility] [id number] 08:45:00 08:45:00 [place] [address] [facility] Results This patient has no known results.
--- NOTE | 2020-07-13 15:24 | ER ---
Nurse's Notes [facility] Name: Mitra Melendez Age: 24 yrs Sex: Female : 1995 Arrival Date: 07/13/2020 Time: 15:18 Bed 19 Private MD: Diagnosis: Inhalation of synthetic marijuana Presentation: 07/13 15:19 Chief complaint: EMS states: PT PULLED OVER FOR DRIVING UNDER INFLUENCE OF SYNTHETIC, bp OPTED TO GO TO ER WITH EMS VS SENIOR LIVING. Coronavirus screen: At this time, the client does not indicate any symptoms associated with coronavirus-19. Ebola Screen: No symptoms or risks identified at this time. Initial Sepsis Screen: Does the patient meet any 2 criteria? HR > 90 bpm. No. Patient's initial sepsis screen is negative. Does the patient have a suspected source of infection? No. Patient's initial sepsis screen is negative. Risk Assessment: Do you want to hurt yourself or someone else? Patient reports no desire to harm self or others. Onset of symptoms is unknown. 15:19 Method Of Arrival: EMS: [facility] bp 15:19 Acuity: ELBERT 4 bp Triage Assessment: 15:21 General: Appears in no apparent distress. comfortable, Behavior is cooperative, bp appropriate for age, anxious. Pain: Denies pain. EENT: No deficits noted. Neuro: Level of Consciousness is awake, alert, obeys commands, Oriented to person, place, time, situation, Appropriate for age. Cardiovascular: No deficits noted. Respiratory: No deficits noted. GI: No signs and/or symptoms were reported involving the gastrointestinal system. : No signs and/or symptoms were reported regarding the genitourinary system. Derm: No deficits noted. Musculoskeletal: No deficits noted. Historical: - Allergies: 15:21 No Known Allergies; bp - Home Meds: 15:21 None [Active]; bp - PMHx: 15:21 Substance Abuse; bp - Immunization history:: Adult Immunizations up to date. - Social history:: Smoking status: unknown. Screenin:20 Abuse screen: Denies threats or abuse. Denies injuries from another. Nutritional bp screening: No deficits noted. Tuberculosis screening: No symptoms or risk factors identified. Fall Risk None identified. Assessment: 15:22 General: PT REFUSING TREATMENT AND EVALUATION. PROVIDER AT B/S, COUNSELED PT TO REMAIN bp BUT PT REFUSED. PT LAST SEEN IN STABLE CONDITION, AOx4, NO ATAXIA, AMBULATORY WITH STEADY GAIT.. Vital Signs: 15:19 BP 102 / 60; Pulse 105; Resp 18; Temp 99; Pulse Ox 98% ; bp ED Course: 15:18 Patient arrived in ED. bp 15:20 Triage completed. bp 15:20 Patient has correct armband on for positive identification. Bed in low position. Call bp light in reach. Side rails up X2. 15:21 Arm band placed on. bp 15:23 Guerline Rollins FNP-C is PHCP. kb 15:23 John Benjamin MD is Attending Physician. kb 15:28 No provider procedures requiring assistance completed. Patient did not have IV access bp during this emergency room visit. Administered Medications: No medications were administered Outcome: 15:28 AMA AMA form signed bp 15:28 Condition: stable 15:28 Patient left the ED. bp Signatures: Guerline Rollins FNP-C FNP-Ckb Peltier, Brian, RN RN bp
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
[2020-07-13 15:57] VITALS: BP 102/60; TEMP 99; O2SAT 98
== END 2020-07-13 15:28 | disposition left against medical advice (07) ==
LOC: ER 15:16
DX: F12.90 Cannabis use, unspecified, uncomplicated (principal)
CPT/HCPCS: 99282

== ENCOUNTER 2020-09-22 12:13 | Emergency (ER) | payer SELFPAY ==
--- OUTSIDE RECORDS SUMMARY | 2020-09-22 12:24 | XMS REPORT | Continuity of Care Document ---
:1995 Author Organization [facility] t Address [address] [place] [address] Care Team Providers Name Role Phone Nacho Gil Attending Clinician Problems Condition Condition Condition Status Onset Resolution Last Treating Co mments Source Name Details Category Date Date Treatment Clinician Date 23 weeks 23 weeks Diagnosis Active [facility] gestation [facility] Paronychia Paronychia Diagnosis Active [facility] of finger of finger Luke s - of left of left Memoria hand hand l [facility] Allergies, Adverse Reactions, Alerts This patient has no known allergies or adverse reactions. Medications Ordered Filled Start Stop Current Ordering Indication Dosage Frequency Signature Comments Components Source Medication Medication Date Date Medication? Clinician (SIG) Name Name Yes Florencio [address] [facility] Procedures This patient has no known procedures. 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
--- NOTE | 2020-09-22 12:47 | EDPHYS ---
Physician Documentation [facility] Name: Mitra Melendez Age: 24 yrs Sex: Female : 1995 Arrival Date: 09/22/2020 Time: 12:14 Bed 18 Private MD: ED Physician Brandon Stoll HPI: 09/22 12:38 This 24 yrs old Female presents to ER via Ambulatory with complaints of STD jmm Exposure. 12:38 The patient presents with vaginal discharge. Onset: The symptoms/episode began/occurred jmm gradually, 3 day(s) ago. Modifying factors: The symptoms are alleviated by nothing, the symptoms are aggravated by nothing. Associated signs and symptoms: Pertinent negatives: dysuria, fever, urinary frequency. The patient has not experienced similar symptoms in the past. This is a 24 year old female with no chronic medical conditions that presents to the ED with complaints of vaginal discharge. Boyfriend recently treated for GC. Denies fever, pelvic pain, or abdominal pain. . 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 - Social history:: Smoking status: Patient reports the use of cigarette tobacco products, smokes one pack cigarettes per day. ROS: 12:38 Constitutional: Negative for fever, chills, and weight loss, Cardiovascular: Negative jmm for chest pain, palpitations, and edema, Respiratory: Negative for shortness of breath, cough, wheezing, and pleuritic chest pain. 12:38 : Positive for 12:38 All other systems are negative. Exam: 12:38 Constitutional: This is a well developed, well nourished patient who is awake, alert, jmm and in no acute distress. Head/Face: atraumatic. Eyes: EOMI, no conjunctival erythema appreciated ENT: Moist Mucus Membranes Neck: Trachea midline, Supple Chest/axilla: Normal chest wall appearance and motion. Cardiovascular: Regular rate and rhythm. No edema appreciated Respiratory: Normal respirations, no respiratory distress appreciated Abdomen/GI: Non distended, soft Back: Normal ROM Skin: General appearance color normal MS/ Extremity: Moves all extremities, no obvious deformities appreciated, no edema noted to the lower extremities Neuro: Awake and alert, normal gait Psych: Behavior is normal, Mood is normal, Patient is cooperative and pleasant Vital Signs: 12:17 BP 119 / 88; Pulse 113; Resp 17 S; Temp 97.5(TE); Pulse Ox 97% on R/A; Weight 63.5 kg ca1 (R); Height 5 ft. 7 in. (170.18 cm) (R); Pain 0/10; 13:05 BP 117 / 81; Pulse 95; Resp 17; Temp 97.8; Pulse Ox 98% ; bp 12:17 Body Mass Index 21.93 (63.50 kg, 170.18 cm) ca1 MDM: 12:31 Patient medically screened. m 12:38 Data reviewed: vital signs, nurses notes. Counseling: I had a detailed discussion with emerson the patient and/or guardian regarding: the historical points, exam findings, and any diagnostic results supporting the discharge/admit diagnosis, the need for outpatient follow up, to return to the emergency department if symptoms worsen or persist or if there are any questions or concerns that arise at home. ED course: I discussed the need for a pelvic exam. Patient refuses pelvic exam. Will return to the ED if symptoms worsen. . Administered Medications: 12:40 Drug: Rocephin (cefTRIAXone) 250 mg Route: IM; Site: right gluteus; bp 12:49 Follow up: Response: No adverse reaction bp 12:40 Drug: Flagyl 2 grams Route: PO; bp 12:48 Follow up: Response: No adverse reaction bp 12:40 Drug: AZITHromycin 1 grams Route: PO; bp 12:48 Follow up: Response: No adverse reaction bp Disposition: 13:26 Co-signature as Attending Physician, Brandon Stoll MD I agree with the assessment and kdr plan of care. Disposition: 09/22/20 12:47 Discharged to Home. Impression: Vaginal Discharge. - Condition is Stable. - Discharge Instructions: Sexually Transmitted Disease. - Medication Reconciliation Form, Thank You Letter, Antibiotic Education, Prescription Opioid Use form. - Follow up: Private Physician; When: 2 - 3 days; Reason: Recheck today's complaints, Continuance of care, Re-evaluation by your physician. Signatures: Rittger, Brandon, Guicho Flor MD, PA PA jmm Peltier, Brian, RN RN bp Bernadette Motley, RN RN ca1 Corrections: (The following items were deleted from the chart) 13:07 12:47 09/22/2020 12:47 Discharged to Home. Impression: Vaginal Discharge. Condition is bp Stable. Forms are Medication Reconciliation Form, Thank You Letter, Antibiotic Education, Prescription Opioid Use. Follow up: Private Physician; When: 2 - 3 days; Reason: Recheck today's complaints, Continuance of care, Re-evaluation by your physician. emerson
--- NOTE | 2020-09-22 12:47 | ER ---
Nurse's Notes [facility] Name: Mitra Melendez Age: 24 yrs Sex: Female : 1995 Arrival Date: 09/22/2020 Time: 12:14 Bed 18 Private MD: Diagnosis: Vaginal Discharge Presentation: 09/22 12:17 Chief complaint: Patient states: BF got treated for gonorrhea 3 days ago. Said I should ca1 get treated too. Reports whitish-yellowish vaginal discharge with odor. Had a bump at the vaginal opening but is gone now. Denies fever. Coronavirus screen: Client denies travel out of the [place] in the last 14 days. At this time, the client does not indicate any symptoms associated with coronavirus-19. Ebola Screen: Patient negative for fever greater than or equal to 101.5 degrees Fahrenheit, and additional compatible Ebola Virus Disease symptoms Patient denies exposure to infectious person. Patient denies travel to an Ebola-affected area in the 21 days before illness onset. No symptoms or risks identified at this time. Initial Sepsis Screen: Does the patient meet any 2 criteria? No. Patient's initial sepsis screen is negative. Does the patient have a suspected source of infection? No. Patient's initial sepsis screen is negative. Risk Assessment: Do you want to hurt yourself or someone else? Patient reports no desire to harm self or others. Onset of symptoms was September 22, 2020. 12:17 Method Of Arrival: Ambulatory ca1 12:17 Acuity: ELBERT 4 ca1 Triage Assessment: 12:15 General: Appears in no apparent distress. comfortable, Behavior is cooperative, bp appropriate for age, anxious. Pain: Denies pain. EENT: No deficits noted. Neuro: No deficits noted. Cardiovascular: No deficits noted. Respiratory: No deficits noted. GI: No signs and/or symptoms were reported involving the gastrointestinal system. : Reports discharge, vaginal itching. Derm: No deficits noted. Musculoskeletal: No deficits noted. 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 - Social history:: Smoking status: Patient reports the use of cigarette tobacco products, smokes one pack cigarettes per day. Screenin:51 Abuse screen: Denies threats or abuse. Denies injuries from another. Nutritional bp screening: No deficits noted. Tuberculosis screening: No symptoms or risk factors identified. Fall Risk None identified. Assessment: 12:15 General: SEE TRIAGE NOTE. bp 13:05 Reassessment: PT D/C HOME AMBULATORY, DX WITH VAGINAL D/C AND STD EXPOSURE. bp Vital Signs: 12:17 BP 119 / 88; Pulse 113; Resp 17 S; Temp 97.5(TE); Pulse Ox 97% on R/A; Weight 63.5 kg ca1 (R); Height 5 ft. 7 in. (170.18 cm) (R); Pain 0/10; 13:05 BP 117 / 81; Pulse 95; Resp 17; Temp 97.8; Pulse Ox 98% ; bp 12:17 Body Mass Index 21.93 (63.50 kg, 170.18 cm) ca1 ED Course: 12:14 Patient arrived in ED. as 12:15 Guicho Long PA is PHCP. max 12:15 Brandon Stoll MD is Attending Physician. emerson 12:16 Timothy Sawyer, DANI is Primary Nurse. bp 12:23 Triage completed. ca1 12:23 Arm band placed on right wrist. ca1 12:51 Patient has correct armband on for positive identification. Bed in low position. Call bp light in reach. Side rails up X2. 12:53 No provider procedures requiring assistance completed. Patient did not have IV access bp during this emergency room visit. Administered Medications: 12:40 Drug: Rocephin (cefTRIAXone) 250 mg Route: IM; Site: right gluteus; bp 12:49 Follow up: Response: No adverse reaction bp 12:40 Drug: Flagyl 2 grams Route: PO; bp 12:48 Follow up: Response: No adverse reaction bp 12:40 Drug: AZITHromycin 1 grams Route: PO; bp 12:48 Follow up: Response: No adverse reaction bp Outcome: 12:47 Discharge ordered by . jmm 13:05 Discharged to home ambulatory. bp 13:05 Condition: stable 13:05 Discharge instructions given to patient, Instructed on the need for admit, safe sex practices, Demonstrated understanding of instructions, follow-up care. 13:07 Patient left the ED. bp Signatures: Guicho Long PA PA jmm Martinez, Amelia as Peltier, Brian, RN RN bp Bernadette Motley RN RN ca1
[2020-09-22] MEDS ORDERED: metroNIDAZOLE 500 MG TABLET ONE (12:53)
[2020-09-22] MEDS ORDERED: AZITHROMYCIN 250 MG TAB ONE (12:53)
[2020-09-22] MEDS ORDERED: CEFTRIAXONE 500 MG/VIAL ONE (12:53)
[2020-09-22 13:15] VITALS: BP 117/81; TEMP 97.8; O2SAT 98
== END 2020-09-22 13:07 | disposition home or self-care (01) ==
LOC: ER 12:13
DX: N89.8 Other specified noninflammatory disorders of vagina (principal); F17.210 Nicotine dependence, cigarettes, uncomplicated
CPT/HCPCS: 96372; 99283; J0696

== ENCOUNTER 2020-10-10 08:45 | Emergency (ER) | payer SELFPAY ==
--- OUTSIDE RECORDS SUMMARY | 2020-10-10 09:14 | XMS REPORT | Continuity of Care Document ---
:1995 Author Organization [facility] t Address [address] [place] [address] Care Team Providers Name Role Phone Nacho [...] left of left [facility]oria hand hand l [facility] Allergies, Adverse Reactions, Alerts This patient has no known allergies or adverse reactions. Medications Ordered Filled Start Stop Current Ordering Indication Dosage Frequency Signature Comments Components Source Medication Medication Date Date Medication? Clinician (SIG) Name Name Yes Florencio [address] [facility] Procedures This patient has no known procedures. 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
--- NOTE | 2020-10-10 11:31 | ER ---
Nurse's Notes [facility] Name: Mitra Melendez Age: 24 yrs Sex: Female : 1995 Arrival Date: 10/10/2020 Time: 08:46 Bed 24 Private MD: Diagnosis: Contact with and (suspected) exposure to infections with a predominantly sexual mode of transmission Presentation: 10/10 09:39 Chief complaint: Patient states: I was treated for gonorrhea and chlamydia a couple iw weeks ago and then I had unprotected sex and got re-exposed , has a bump on right side of labia and it seems to be going away. Coronavirus screen: At this time, the client does not indicate any symptoms associated with coronavirus-19. Ebola Screen: Patient negative for fever greater than or equal to 101.5 degrees Fahrenheit, and additional compatible Ebola Virus Disease symptoms Patient denies exposure to infectious person. Patient denies travel to an Ebola-affected area in the 21 days before illness onset. No symptoms or risks identified at this time. Initial Sepsis Screen: Does the patient meet any 2 criteria? No. Patient's initial sepsis screen is negative. Does the patient have a suspected source of infection? No. Patient's initial sepsis screen is negative. Risk Assessment: Do you want to hurt yourself or someone else? Patient reports no desire to harm self or others. Onset of symptoms. 09:39 Method Of Arrival: Ambulatory iw 09:39 Acuity: ELBERT 4 iw Historical: - Allergies: 09:42 No Known Allergies; iw - Home Meds: 09:42 None [Active]; iw - PMHx: 09:42 Substance Abuse; iw - PSHx: 09:42 anal fissure surgery; iw - Immunization history:: Adult Immunizations. - Social history:: Smoking status: Patient reports the use of cigarette tobacco products, smokes one pack cigarettes per day. - Family history:: not pertinent. Screenin:11 Abuse screen: Denies threats or abuse. Denies injuries from another. Nutritional iw screening: No deficits noted. Tuberculosis screening: No symptoms or risk factors identified. Fall Risk None identified. Assessment: 11:00 General: Appears in no apparent distress. Behavior is calm, cooperative. Pain: Denies iw pain. Neuro: Level of Consciousness is awake, alert, obeys commands, Oriented to person, place, time, situation, Moves all extremities. Cardiovascular: Patient's skin is warm and dry. Respiratory: Respiratory effort is even, unlabored. :. Derm: Skin is intact, is healthy with good turgor. Musculoskeletal: Range of motion: intact in all extremities. 12:00 Reassessment: d/c pending IM injection completion. zb 12:11 General: Appears in no apparent distress. comfortable, Behavior is calm, cooperative, zb appropriate for age. Pain: Denies pain. Neuro: Level of Consciousness is awake, alert, obeys commands, Oriented to person, place, time, situation. Cardiovascular: Reports None. Respiratory: No deficits noted. GI: No deficits noted. : Parent/caregiver report the patient having exposure to STI. EENT: No signs and/or symptoms were reported regarding the EENT system. Derm: Skin is intact, Skin is dry, Skin is normal, Skin temperature is warm. 12:11 Musculoskeletal: No deficits noted. No signs and/or symptoms reported regarding the zb musculoskeletal system. Vital Signs: 09:39 BP 116 / 90; Pulse 110; Resp 16 S; Temp 98.6; Pulse Ox 98% on R/A; Weight 58.97 kg; iw Height 5 ft. 7 in. (170.18 cm); 12:25 BP 121 / 87; Pulse 93; Resp 16; Pulse Ox 95% on R/A; zb 09:39 Body Mass Index 20.36 (58.97 kg, 170.18 cm) iw ED Course: 08:46 Patient arrived in ED. ag5 09:42 Triage completed. iw 09:43 Arm band placed on. iw 10:53 Derrek Villalobos MD is Attending Physician. ma2 12:02 Chandrika Ng, DANI is Primary Nurse. zb 12:11 No provider procedures requiring assistance completed. Patient did not have IV access iw during this emergency room visit. 12:26 Patient has correct armband on for positive identification. Pulse ox on. NIBP on. zb Administered Medications: 12:09 Drug: AZITHromycin 1 grams Route: PO; zb 12:24 Follow up: Response: No adverse reaction zb 12:09 Drug: Rocephin (cefTRIAXone) 250 mg Route: IM; Site: left gluteus; zb 12:24 Follow up: Response: No adverse reaction zb Outcome: 11:31 Discharge ordered by . preston 12:26 Discharged to home ambulatory. zb 12: Condition: stable 12:26 Discharge instructions given to patient, significant other, Instructed on discharge instructions, follow up and referral plans. safe sex practices, Demonstrated understanding of instructions, follow-up care, sexual practices 12:27 Patient left the ED. sekou Signatures: Ladonna Gross RN RN iw Derrek Villalobos MD MD ma2 Migdalia Diana [facility] Chandrika Ng RN RN zb
--- NOTE | 2020-10-10 11:31 | EDPHYS ---
Physician Documentation [facility] Name: Mitra Melendez Age: 24 yrs Sex: Female : 1995 Arrival Date: 10/10/2020 Time: 08:46 Bed 24 Private MD: ED Physician Derrek Villalobos HPI: 10/10 11:28 This 24 yrs old Female presents to ER via Ambulatory with complaints of STD ma2 Exposure. 11:28 The patient presents with a possible exposure to a sexually transmitted disease. Onset: ma2 The symptoms/episode began/occurred gradually, 6 day(s) ago. Associated signs and symptoms: Pertinent negatives: cramping, dysuria, fever, hematuria. Severity of symptoms: At their worst the symptoms were very mild, in the emergency department the symptoms are unchanged. The patient has experienced a previous episode. Historical: - Allergies: 09:42 No Known Allergies; iw - Home Meds: 09:42 None [Active]; iw - PMHx: 09:42 Substance Abuse; iw - PSHx: 09:42 anal fissure surgery; iw - Immunization history:: Adult Immunizations. - Social history:: Smoking status: Patient reports the use of cigarette tobacco products, smokes one pack cigarettes per day. - Family history:: not pertinent. ROS: 11:28 Positive for vaginal discharge, Negative for urinary symptoms, hematuria, flank ma2 pain, acute changes. 11:28 Constitutional: Negative for fever, chills, and weight loss. 11:28 All other systems are negative. Exam: 11:28 Constitutional: This is a well developed, well nourished patient who is awake, alert, ma2 and in no acute distress. Head/Face: Normocephalic, atraumatic. Eyes: Pupils equal round and reactive to light, extra-ocular motions intact. Lids and lashes normal. Conjunctiva and sclera are non-icteric and not injected. Cornea within normal limits. Periorbital areas with no swelling, redness, or edema. ENT: Nares patent. No nasal discharge, no septal abnormalities noted. Tympanic membranes are normal and external auditory canals are clear. Oropharynx with no redness, swelling, or masses, exudates, or evidence of obstruction, uvula midline. Mucous membranes moist. Neck: Trachea midline, no thyromegaly or masses palpated, and no cervical lymphadenopathy. Supple, full range of motion without nuchal rigidity, or vertebral point tenderness. No Meningismus. Skin: Warm, dry with normal turgor. Normal color with no rashes, no lesions, and no evidence of cellulitis. MS/ Extremity: Pulses equal, no cyanosis. Neurovascular intact. Full, normal range of motion. Neuro: Awake and alert, GCS 15, oriented to person, place, time, and situation. Cranial nerves II-XII grossly intact. Motor strength 5/5 in all extremities. Sensory grossly intact. Cerebellar exam normal. Normal gait. Vital Signs: 09:39 BP 116 / 90; Pulse 110; Resp 16 S; Temp 98.6; Pulse Ox 98% on R/A; Weight 58.97 kg; iw Height 5 ft. 7 in. (170.18 cm); 12:25 BP 121 / 87; Pulse 93; Resp 16; Pulse Ox 95% on R/A; zb 09:39 Body Mass Index 20.36 (58.97 kg, 170.18 cm) iw MDM: 10:53 Patient medically screened. ma2 11:28 Differential diagnosis: dysmenorrhea, menorrhea, pelvic inflammatory disease, urinary ma2 tract infection, vaginosis. Data reviewed: vital signs, nurses notes. Counseling: I had a detailed discussion with the patient and/or guardian regarding: the historical points, exam findings, and any diagnostic results supporting the discharge/admit diagnosis, the presence of at least one elevated blood pressure reading (>120/80) during this emergency department visit, the need for outpatient follow up. Response to treatment: the patient's symptoms have markedly improved after treatment. Administered Medications: 12:09 Drug: AZITHromycin 1 grams Route: PO; zb 12:24 Follow up: Response: No adverse reaction zb 12:09 Drug: Rocephin (cefTRIAXone) 250 mg Route: IM; Site: left gluteus; zb 12:24 Follow up: Response: No adverse reaction zb Disposition: 10/10/20 11:31 Discharged to Home. Impression: Contact with and (suspected) exposure to infections with a predominantly sexual mode of transmission. - Condition is Stable. - Discharge Instructions: Sexually Transmitted Disease, Fuor-af-Stag. - Medication Reconciliation Form, Thank You Letter, Antibiotic Education, Prescription Opioid Use form. - Follow up: Private Physician; When: Tomorrow; Reason: Continuance of care. Signatures: Ladonna Gross RN Derrek Stewart MD MD ma2 Chandrika Ng RN RN zb Corrections: (The following items were deleted from the chart) 12:27 11:31 10/10/2020 11:31 Discharged to Home. Impression: Contact with and (suspected) zb exposure to infections with a predominantly sexual mode of transmission. Condition is Stable. Forms are Medication Reconciliation Form, Thank You Letter, Antibiotic Education, Prescription Opioid Use. Follow up: Private Physician; When: Tomorrow; Reason: Continuance of care. ma2
[2020-10-10] MEDS ORDERED: CEFTRIAXONE 250 MG/VIAL ONE (12:11)
[2020-10-10] MEDS ORDERED: AZITHROMYCIN 250 MG TAB ONE (12:13)
[2020-10-10 12:36] VITALS: TEMP 98.6
[2020-10-10 12:38] VITALS: BP 121/87; O2SAT 95
== END 2020-10-10 12:27 | disposition home or self-care (01) ==
LOC: ER 08:45
DX: Z20.2 Contact with and (suspected) exposure to infections with a predominantly sexual mode of transmission (principal); F17.210 Nicotine dependence, cigarettes, uncomplicated
CPT/HCPCS: 96372; 99283; J0696

== ENCOUNTER 2021-01-06 20:56 | Emergency (ER) | payer SELFPAY ==
--- OUTSIDE RECORDS SUMMARY | 2021-01-06 21:02 | XMS REPORT | Continuity of Care Document ---
:1995 Author Organization [facility] t Address [address] [place] [address] Care Team Providers Name Role Phone Nacho Gil Attending Clinician Problems Condition Condition Condition Status Onset Resolution Last Treating Co mments Source Name Details Category Date Date Treatment Clinician Date 23 weeks 23 weeks Diagnosis Active [facility] gestation gestation Luke s - of of Memoria l [facility] Paronychia Paronychia Diagnosis Active [facility] of finger of finger Luke s - of left of left Memoria hand hand l [facility] Allergies, Adverse Reactions, Alerts This patient has no known allergies or adverse reactions. Medications Ordered Filled Start Stop Current Ordering Indication Dosage Frequency Signature Comments Components Source Medication Medication Date Date Medication? Clinician (SIG) Name Name Yes Florencio [address] [facility] Procedures This patient has no known procedures. 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
--- NOTE | 2021-01-06 21:47 | ER ---
Nurse's Notes [facility] Name: Mitra Melendez Age: 25 yrs Sex: Female : 1995 Arrival Date: 01/06/2021 Time: 21:01 Bed 5 Private MD: Diagnosis: Local infection of the skin and subcutaneous tissue, unspecified Presentation: 01/06 21:08 Chief complaint: Patient states: Pt reports there is a bump on the right side of her ea labia, she squeezed it and pus came out of it. Pt reports there is a bump on the inner labia. Coronavirus screen: At this time, the client does not indicate any symptoms associated with coronavirus-19. Ebola Screen: No symptoms or risks identified at this time. Initial Sepsis Screen: Does the patient meet any 2 criteria? No. Patient's initial sepsis screen is negative. Does the patient have a suspected source of infection? No. Patient's initial sepsis screen is negative. Risk Assessment: Do you want to hurt yourself or someone else? Patient reports no desire to harm self or others. Onset of symptoms. 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 - Social history:: Smoking status: Patient reports the use of cigarette tobacco products, smokes one pack cigarettes per day. Screenin:13 Abuse screen: Denies threats or abuse. Nutritional screening: No deficits noted. ea Tuberculosis screening: No symptoms or risk factors identified. Fall Risk None identified. Assessment: 21:42 General: Appears comfortable, Behavior is calm, cooperative. Pain: Complains of pain in rv groin. Neuro: Level of Consciousness is awake, alert, obeys commands, Oriented to person, place, time, situation. Cardiovascular: Patient's skin is warm and dry. Respiratory: Airway is patent Respiratory effort is even, unlabored. 21:44 Reassessment: Patient appears in no apparent distress at this time. Patient and/or iw family updated on plan of care and expected duration. Pain level reassessed. Patient is alert, oriented x 3, equal unlabored respirations, skin warm/dry/pink. Vital Signs: 21:08 BP 101 / 74; Pulse 95; Resp 18; Temp 97.8; Pulse Ox 98% ; Weight 65.77 kg; Height 5 ft. ea 7 in. (170.18 cm); 21:08 Body Mass Index 22.71 (65.77 kg, 170.18 cm) ea ED Course: 21:01 Patient arrived in ED. am4 21:12 Triage completed. ea 21:13 Arm band placed on right wrist. Patient placed in an exam room, on a stretcher, on ea pulse oximetry. 21:30 Diego Menon PA is PHCP. jr8 21:30 Jovanny Vaughn MD is Attending Physician. jr8 21:38 Patient has correct armband on for positive identification. Bed in low position. Call rr5 light in reach. 21:42 Watson Lazo, DANI is Primary Nurse. rv 21:45 Assist provider with pelvic exam: chaperoned with Praveen Cortez during external pelvic exam. iw Patient did not have IV access during this emergency room visit. Administered Medications: No medications were administered Outcome: 21:46 Discharge ordered by MD. jr8 21:51 Discharged to home ambulatory. iw 21:51 Condition: good 21:51 Discharge instructions given to patient, Instructed on discharge instructions, follow up and referral plans. medication usage, Demonstrated understanding of instructions, follow-up care, medications, Prescriptions given X 1. 21:51 Patient left the ED. iw Signatures: Ladonna Gross RN RN Diego Menon PA PA jr8 Laura Mo RN RN Watson Lazo RN DANI Stef Rodrigues RN RN rr5 Ann Moses am4 Corrections: (The following items were deleted from the chart) 21:46 21:44 Reassessment: Patient appears in no apparent distress at this time. Patient iw and/or family updated on plan of care and expected duration. Pain level reassessed. Patient is alert, oriented x 3, equal unlabored respirations, skin warm/dry/pink. iw
--- NOTE | 2021-01-06 21:47 | EDPHYS ---
Physician Documentation [facility] Name: Mitra Melendez Age: 25 yrs Sex: Female : 1995 Arrival Date: 01/06/2021 Time: 21:01 Bed 5 Private MD: ED Physician Jovanny Vaughn HPI: 01/07 01:04 This 25 yrs old Female presents to ER via Ambulatory with complaints of jr8 Unknown bump on vaginal area. 01:04 Onset: The symptoms/episode began/occurred acutely, today. Severity of symptoms: At jr8 their worst the symptoms were mild in the emergency department the symptoms are unchanged. The patient has not experienced similar symptoms in the past. The patient has not recently seen a physician. Patient stated that she felt a "raw" feeling on her panty line. [place] region and felt a bump. Had a pustule that she popped. Has been painful ever since. 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 - Social history:: Smoking status: Patient reports the use of cigarette tobacco products, smokes one pack cigarettes per day. ROS: 01/07 01:04 Eyes: Negative for injury, pain, redness, and discharge, ENT: Negative for injury, jr8 pain, and discharge, Neck: Negative for injury, pain, and swelling, Cardiovascular: Negative for chest pain, palpitations, and edema, Respiratory: Negative for shortness of breath, cough, wheezing, and pleuritic chest pain, Abdomen/GI: Negative for abdominal pain, nausea, vomiting, diarrhea, and constipation, Back: Negative for injury and pain, MS/Extremity: Negative for injury and deformity, Neuro: Negative for headache, weakness, numbness, tingling, and seizure. Skin: Positive for pustules, of the pelvis. Exam: 01:04 Constitutional: This is a well developed, well nourished patient who is awake, alert, jr8 and in no acute distress. Cardiovascular: Regular rate and rhythm with a normal S1 and S2. No gallops, murmurs, or rubs. Normal PMI, no JVD. No pulse deficits. Respiratory: Lungs have equal breath sounds bilaterally, clear to auscultation and percussion. No rales, rhonchi or wheezes noted. No increased work of breathing, no retractions or nasal flaring. Abdomen/GI: Soft, non-tender, with normal bowel sounds. No distension or tympany. No guarding or rebound. No evidence of tenderness throughout. MS/ Extremity: Pulses equal, no cyanosis. Neurovascular intact. Full, normal range of motion. Neuro: Awake and alert, GCS 15, oriented to person, place, time, and situation. Motor strength 5/5 in all extremities. Sensory grossly intact. 01:04 : Pelvic Exam: External exam: Small papule noted right external labia. No exudate noted. No surrounding cellulitis. Vital Signs: 01/06 21:08 BP 101 / 74; Pulse 95; Resp 18; Temp 97.8; Pulse Ox 98% ; Weight 65.77 kg; Height 5 ft. ea 7 in. (170.18 cm); 21:08 Body Mass Index 22.71 (65.77 kg, 170.18 cm) ea MDM: 21:40 Patient medically screened. jr8 21:44 Data reviewed: vital signs, nurses notes, and as a result, I will discharge patient. jr8 Data interpreted: Pulse oximetry: on room air is 98 %. Interpretation: normal. Counseling: I had a detailed discussion with the patient and/or guardian regarding: the historical points, exam findings, and any diagnostic results supporting the discharge/admit diagnosis, the need for outpatient follow up, an OB/Gyne specialist, to return to the emergency department if symptoms worsen or persist or if there are any questions or concerns that arise at home. 21:44 ED course: Discussed with patient that the bump she popped is a follicular infection. jr8 No abscess now and no cellulitis. Will have her apply bactroban to region. If worse to come back. Patient good with this . Administered Medications: No medications were administered Disposition: 01/07 04:06 Co-signature as Attending Physician, Jovanny Vaughn MD. mh7 Disposition: 01/06/21 21:46 Discharged to Home. Impression: Local infection of the skin and subcutaneous tissue, unspecified. - Condition is Stable. - Discharge Instructions: Skin Abscess, Folliculitis. - Prescriptions for Bactroban 2 % Topical Ointment - Apply to affected area 1 application by TOPICAL route every 12 hours; 30 gram. - Medication Reconciliation Form, Thank You Letter, Antibiotic Education, Prescription Opioid Use form. - Follow up: Private Physician; When: As needed; Reason: Wound Recheck, Recheck today's complaints, Continuance of care, Re-evaluation by your physician. - Problem is new. - Symptoms have improved. Signatures: Ladonna Gross RN RN Diego Pascal PA PA jr8 Laura Mo RN RN ea Holmes, Maurice, MD MD mh7 Corrections: (The following items were deleted from the chart) 01/06 21:51 21:46 01/06/2021 21:46 Discharged to Home. Impression: Local infection of the skin and iw subcutaneous tissue, unspecified. Condition is Stable. Forms are Medication Reconciliation Form, Thank You Letter, Antibiotic Education, Prescription Opioid Use. Follow up: Private Physician; When: As needed; Reason: Wound Recheck, Recheck today's complaints, Continuance of care, Re-evaluation by your physician. Problem is new. Symptoms have improved. jr8
[2021-01-06 22:07] VITALS: BP 101/74; TEMP 97.8; O2SAT 98
== END 2021-01-06 21:51 | disposition home or self-care (01) ==
LOC: ER 20:56
DX: L08.9 Local infection of the skin and subcutaneous tissue, unspecified (principal); F17.210 Nicotine dependence, cigarettes, uncomplicated
CPT/HCPCS: 99283

== ENCOUNTER 2021-07-22 15:49 | Emergency (ER) | payer SELFPAY ==
[2021-07-22] MEDS ORDERED: SMZ./TMP. 800/160 MG TABLET ONE (16:18)
--- NOTE | 2021-07-22 16:21 | EDPHYS ---
Physician Documentation [facility] Name: Mitra Melendez Age: 25 yrs Sex: Female : 1995 Arrival Date: 07/22/2021 Time: 15:51 Bed 17 Private MD: ED Physician Chico Devi HPI: 07/22 16:19 This 25 yrs old Female presents to ER via Ambulatory with complaints of kb Pelvic Problem - lump. 16:19 The patient presents with an abscess of the left labia majora. Description: kb erythematous, swollen. Onset: The symptoms/episode began/occurred 4 day(s) ago. Possible cause(s): unknown. Associated signs and symptoms: Pertinent positives: erythema, swelling, Pertinent negatives: discharge, drainage, foreign body sensation, fever, headache, nausea, shortness of breath, vomiting. Modifying factors: the symptoms are alleviated by nothing, the symptoms are aggravated by squeezing the lesion and expressing the contents, touching. Severity of symptoms: At their worst the symptoms were mild, moderate, in the emergency department the symptoms are unchanged. The patient has not experienced similar symptoms in the past. The patient has not recently seen a physician. 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 - Social history:: Smoking status: Patient reports the use of cigarette tobacco products, smokes one pack cigarettes per day. Patient uses street drugs, marijuana. ROS: 16:16 Constitutional: Negative for fever, chills, and weight loss. kb 16:16 Skin: Positive for abscess, erythema, swelling, of the left labia majora. 16:16 All other systems are negative. Exam: 16:16 Constitutional: This is a well developed, well nourished patient who is awake, alert, kb and in no acute distress. Head/Face: Normocephalic, atraumatic. ENT: Moist Mucous membranes Respiratory: Respirations even and unlabored. No increased work of breathing, no retractions or nasal flaring. Abdomen/GI: Soft, non-tender. No distention MS/ Extremity: Pulses equal, no cyanosis. Neurovascular intact. Full, normal range of motion. Neuro: Awake and alert, GCS 15, oriented to person, place, time, and situation. Moves all extremities. Normal gait. Psych: Awake, alert, with orientation to person, place and time. Behavior, mood, and affect are within normal limits. 16:16 : Pelvic Exam: External exam: small abscess to left labia majora, inflamed lymphnode noted to left groin . 16:16 Skin: abscess, that is small, of the left labia majora, with induration. Vital Signs: 15:52 BP 117 / 76; Pulse 97; Resp 16; Temp 98.2; Pulse Ox 98% ; Weight 72.57 kg; Height 5 ft. vg1 7 in. (170.18 cm); Pain 0/10; 16:28 Pulse 88; Resp 16; ll1 15:52 Body Mass Index 25.06 (72.57 kg, 170.18 cm) vg1 MDM: 16:02 Patient medically screened. kb 16:15 Data reviewed: vital signs, nurses notes. Data interpreted: Pulse oximetry: on room air kb is 98 %. Interpretation: normal. Counseling: I had a detailed discussion with the patient and/or guardian regarding: the historical points, exam findings, and any diagnostic results supporting the discharge/admit diagnosis, the need for outpatient follow up, a family practitioner, to return to the emergency department if symptoms worsen or persist or if there are any questions or concerns that arise at home. Administered Medications: 16:22 Drug: Bactrim (trimethoprim-sulfamethoxazole) (160 mg-800 mg (DS) 1 tablet Route: PO; ll1 16:28 Follow up: Response: No adverse reaction ll1 Disposition: 07/23 03:44 Co-signature as Attending Physician, Chico Devi MD I agree with the assessment and vipul plan of care. Disposition Summary: 07/22/21 16:20 Discharge Ordered Location: Home kb Condition: Stable kb Diagnosis - Cutaneous abscess of left labia majora kb Followup: kb - With: Emergency Department - When: As needed - Reason: Worsening of condition Followup: kb - With: Private Physician - When: 2 - 3 days - Reason: Recheck today's complaints, Continuance of care, Re-evaluation by your physician Discharge Instructions: - Discharge Summary Sheet kb - Skin Abscess, [id number] kb Forms: - Medication Reconciliation Form kb - Thank You Letter kb - Antibiotic Education kb - Prescription Opioid Use kb Prescriptions: - Bactrim DS 800-160 mg Oral Tablet - take 1 tablet by ORAL route every 12 hours for 10 days; 20 tablet; Refills: 0, kb Product Selection Permitted Signatures: Guerline Rollins, GABBYC Chico Dawson MD MD cha Garcia, Victoria RN RN vg1 Ismael Hubbard RN RN ll1
--- NOTE | 2021-07-22 16:21 | ER ---
Nurse's Notes [facility] Name: Mitra Melendez Age: 25 yrs Sex: Female : 1995 Arrival Date: 07/22/2021 Time: 15:51 Bed 17 Private MD: Diagnosis: Cutaneous abscess of left labia majora Presentation: 07/22 15:52 Chief complaint: Patient states: States can feel a lump near the Left side of pelvis vg1 and states a lump on vagina. First noticed the lumps about four days ago. Denies [place]. Coronavirus screen: Vaccine status: Patient reports being unvaccinated. Client denies travel out of the [place] in the last 14 days. Ebola Screen: Patient negative for fever greater than or equal to 101.5 degrees Fahrenheit, and additional compatible Ebola Virus Disease symptoms. Initial Sepsis Screen: Does the patient meet any 2 criteria? No. Patient's initial sepsis screen is negative. Does the patient have a suspected source of infection? No. Patient's initial sepsis screen is negative. Risk Assessment: Do you want to hurt yourself or someone else? Patient reports no desire to harm self or others. Onset of symptoms was July 18, 2021. 15:52 Method Of Arrival: Ambulatory vg1 15:52 Acuity: ELBERT 4 vg1 Triage Assessment: 15:57 General: Appears in no apparent distress. uncomfortable, Behavior is calm, cooperative. vg1 Pain: Complains of pain in left inguinal area Pain currently is 0 out of 10 on a pain scale. at worst was 5 out of 10 on a pain scale. 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 - Social history:: Smoking status: Patient reports the use of cigarette tobacco products, smokes one pack cigarettes per day. Patient uses street drugs, marijuana. Screenin:06 Abuse screen: Denies threats or abuse. Nutritional screening: No deficits noted. ll1 Tuberculosis screening: No symptoms or risk factors identified. 16:06 Fall Risk None identified. Total Bains Fall Scale indicates No Risk (0-24 pts). ll1 Assessment: 16:29 Reassessment: No changes from previously documented assessment. Patient and/or family ll1 updated on plan of care and expected duration. Pain level reassessed. Patient is alert, oriented x 3, equal unlabored respirations, skin warm/dry/pink. Vital Signs: 15:52 BP 117 / 76; Pulse 97; Resp 16; Temp 98.2; Pulse Ox 98% ; Weight 72.57 kg; Height 5 ft. vg1 7 in. (170.18 cm); Pain 0/10; 16:28 Pulse 88; Resp 16; ll1 15:52 Body Mass Index 25.06 (72.57 kg, 170.18 cm) vg1 ED Course: 15:51 Patient arrived in ED. am2 15:57 Triage completed. vg1 15:57 Arm band placed on. vg1 15:59 Guerline Rollins FNP-C [facility]. kb 15:59 Chico Devi MD is Attending Physician. kb 16:05 Ismael Hubbard RN is Primary Nurse. ll1 16:06 Patient placed in an exam room, on a stretcher. ll1 16:06 Patient has correct armband on for positive identification. Bed in low position. Call ll1 light in reach. Side rails up X 1. Cardiac monitoring not applicable on this patient. 16:29 No provider procedures requiring assistance completed. Patient did not have IV access ll1 during this emergency room visit. Administered Medications: 16:22 Drug: Bactrim (trimethoprim-sulfamethoxazole) (160 mg-800 mg (DS) 1 tablet Route: PO; ll1 16:28 Follow up: Response: No adverse reaction ll1 Outcome: 16:20 Discharge ordered by . kb 16:29 Discharged to home ambulatory. ll1 16:29 Condition: stable 16:29 Discharge instructions given to patient, Instructed on discharge instructions, follow up and referral plans. medication usage, Demonstrated understanding of instructions, follow-up care, medications, Prescriptions given X 1. 16:30 Patient left the ED. ll1 Signatures: Guerline Rollins FNP-C FNP-Ckb Moreno, Amanda am2 Paradise Crum RN RN vg1 Ismael Hubbard RN RN 1
[2021-07-22 16:44] VITALS: BP 117/76; TEMP 98.2; O2SAT 98
--- OUTSIDE RECORDS SUMMARY | 2021-07-23 00:09 | XMS REPORT | Continuity of Care Document ---
:1995 Author Organization [facility] t Address [address] [place] [address] Care Team Providers Name Role Phone Eneida JACOBS Primary Care Physician Unavailable Stella CUELLAR Attending Clinician Unavailable Shanice CHEATHAM Attending Clinician Unavailable Eneida Henderson Attending Clinician Nacho Gil Attending Clinician Nacho PUCKETT Attending Clinician Unavailable Doctor Unassigned, Name Attending Clinician Unavailable Visit, Nurse Attending Clinician Unavailable Laura GAITAN S Attending Clinician Payers Payer Name Policy Type Policy Number Effective Date Expiration Date Justyn moctezuma [id number] 2019 00:00:00 Advance Directives Directive Decision Effective Termination Comments Source Date Date Healthcare Agents on N/A Univ [facility] FileNameRelationEn[facility] Agent Medical RelationshipCommunicationNovant Health / [facility] Care [phone] (Mobile) Problems Condition Condition Condition Status Onset Resolution Last Treating Co mments Source Name Details Category Date Date Treatment Clinician Date Nexplanon Nexplanon Disease Active Uni vers in place in place 3 ity of 00:00: [place] 00 [facility] Need for Need for Disease Active Unive rs HPV HPV 3- [place] [facility] Internal Internal Disease Active Unive rs thrombosed thrombosed 6 [place] [facility] Vaginal Vaginal Disease Active Univers discharge discharge 2-07 ity of 00:00: [place] 00 [facility] Chlamydia Chlamydia Disease Active 2018-09 Uni vers trachomati trachomati 2-02 it y of s s 00:00: [place] infection infection 00 [facility] Branch genitourin genitourin victorina sites victorina sites Screening Screening Disease Active 2017-09 Uni vers examinatio examinatio 10-04 it y of n for STD n [place] STD [place] ([place] (sexually [address] [facility] transmitte transmitte Br anch d disease) d disease) Tobacco Tobacco Disease Active 2017-09 Univers use use 10-04 ity of disorder disorder 00:00: [address] 23 weeks 23 weeks Diagnosis Active [facility] gestation gestation Luke [facility] - of of [facility] Paronychia Paronychia Diagnosis Active [facility] of finger of finger Luke s - of left of left Memoria hand hand l [facility] Clinics Allergies, Adverse Reactions, Alerts Allergy Allergy Status Severity Reaction(s) Onset Inactive Treating Comm ents Source Name Type Date Date Clinician NO KNOWN Drug Active Univers ALLERGIE Class ity of S [facility] Social History Social Habit Start Date Stop Date Quantity Comments Source History of tobacco 2007-10-04 Cigarette Smoker University of use 00:00:00 [facility] History SDOH University o f Alcohol Frequency [facility] History SDOH University o f Alcohol Std Drinks [facility] History SDOH University o f Alcohol Binge [facility] [place] Exposure to Not sure [place] of SARS-CoV-2 (event) [facility] Tobacco use and 2020-12-07 2020-12-07 Never used Universit y of exposure 00:00:00 00:00:00 [facility] Cigarettes smoked 2020-12-07 2020-12-07 Univers ity of current (pack per 00:00:00 00:00:00 [facility] ) - Reported Branch Cigarette 2020-12-07 2020-12-07 University of pack-years 00:00:00 00:00:00 [facility] Alcohol intake 2020-12-07 2020-12-07 Current drinker Unive rsity of 00:00:00 00:00:00 of alcohol [facility] (finding) Branch Alcohol Comment 2020-12-07 2020-12-07 socially Universit y of 00:00:00 00:00:00 [facility] Sex Assigned At [birth year] Universit y of 00:00:00 00:00:00 [facility] Smoking Status Start Date Stop Date Source Current every day smoker 2020-12-07 00:00:00 Uni versity of [facility] Medications Ordered Filled Start Stop Current Ordering Indication Dosage Frequency Signature Comments Components Source Medication Medication Date Date Medication? Clinician (SIG) Name Name nelda 2020- No [id number] 1000mg Take 2 Univers n 500 mg 12-08 tablets by ity of tablet 00:00: 04:59 mouth [place] 00 :00 daily for Medical 1 day. Gómez nelda 2020- No [id number] 1000mg Take 2 Univers n 500 mg 12-08 tablets by ity of tablet 00:00: 04:59 mouth [place] 00 :00 daily for Medical 1 day. Branch No known No Univers medications 12-07 ity of 09:53: [place] 46 [facility] cefTRIAXone 2019- No 250mg Univ ers (ROCEPHIN) 02-11 ity of 250 mg in 19:30: 18:29 [place] lidocaine 00 :00 Medical 1% (PF) Branch (XYLOCAINE) 1 mL injection cefTRIAXone No 250mg 250 mg, U nivers (ROCEPHIN) 02-11 Intramuscu it y of 250 mg in 19:30: 18:29 [place], ONCE, [place] lidocaine 00 :00 1 dose, Medical 1% (PF) 02/12/20 Branch (XYLOCAINE) at 1430, 1 1 mL mL
Reas injection on for Anti-Infec tive: Documented Infection< br>Documen francesca Infection Site: Urine
D uration of Therapy: 7 days brandinmarkromyci 2019- No [id number] 1000mg Take 2 Univers n 500 mg 02-10 tablets by ity of tablet 00:00: 04:59 mouth [place] 00 :00 daily for Medical 1 day. Branch azithromyci 2020- No [id number] 1000mg Take 2 Univers n 500 mg 6-04 06-06 tablets by ity of tablet 00:00: 04:59 mouth [place] 00 :00 daily for Medical 1 day. Branch azithromyci 2019-0 2020- No [id number] 1000mg Take 2 Univers n 500 mg 6-04 06-06 tablets by ity of tablet 00:00: 04:59 mouth [place] 00 :00 daily for Medical 1 day. Branch azithromyci 2019-0 2020- No [id number] 1000mg Take 2 Univers n 500 mg 6-04 06-06 tablets by ity of tablet 00:00: 04:59 mouth [place] 00 :00 daily for Medical 1 day. Branch hydrocortis 2019-0 Yes [id number] 25mg Insert 1 Univers one 25 mg 6-02 Suppositor ity of suppository 00:00[place] rectum 2 Medical (two) Branch times daily. hydrocortis 2019-0 Yes [id number] 25mg Insert 1 Univers one 25 mg 6-02 Suppositor ity of suppository 00:00: [place] 00 rectum 2 Medical (two) Branch times daily. hydrocortis 2019-0 Yes [id number] 25mg Insert 1 Univers one 25 mg 6-02 Suppositor ity of suppository 00:00: [place] rectum 2 Medical (two) Branch times daily. hydrocortis 2019-0 Yes [id number] 25mg Insert 1 Univers one 25 mg 6-02 Suppositor ity of suppository 00:00: [place] rectum 2 Medical (two) Branch times daily. hydrocortis 2019-0 Yes [id number] 25mg Insert 1 Univers one 25 mg 6-02 Suppositor ity of suppository 00:00: [place] rectum 2 Medical (two) Branch times daily. hydrocortis 2019-0 Yes [id number] 25mg Insert 1 Univers one 25 mg 6-02 Suppositor ity of suppository 00:00: [place] 00 rectum 2 Medical (two) Branch times daily. hydrocortis 2019-0 Yes [id number] 25mg Insert 1 Univers one 25 mg 6-02 Suppositor ity of suppository 00:00: [place] rectum 2 Medical (two) Branch times daily. hydrocortis Yes [id number] 25mg Insert 1 Univers one 25 mg 6-02 Suppositor ity of suppository 00:00: [place] 00 rectum 2 Medical (two) Branch times daily. hydrocortis No [id number] 25mg Insert 1 Univers one 25 mg 6-02 - Suppositor ity of suppository 00:00: 00:00 y into [place] 00 :00 rectum 2 Medical (two) Branch times daily. hydrocortis No [id number] 25mg Insert 1 Univers one 25 mg 6-12-07 Suppositor ity of suppository 00:00: 00:00 y into [place] 00 :00 rectum 2 Medical (two) Branch times daily. metroNIDAZO No [id number] 500mg Take 1 Univers LE 500 mg 10-19 tablet by ity of tablet 00:00: 05:59 mouth 2 [place] 00 :00 (two) Medical times Branch daily for 7 days. metroNIDAZO No [id number] 500mg Take 1 Univers LE 500 mg 2-18 tablet by ity of tablet 00:00: 05:59 mouth 2 [place] 00 :00 (two) Medical times Branch daily for 7 days. fluconazole No [id number] 150mg Take 1 Univers (DIFLUCAN) 2-10-20 tablet by ity of 150 mg 00:00: 05:59 [place] tablet 00 :00 now for 1 Medical dose. Branch fluconazole No [id number] 150mg Take 1 Univers (DIFLUCAN) 2-11 tablet by ity of 150 mg 00:00: 05:59 [place] tablet 00 :00 now for 1 Medical dose. Branch No known No Univers medications ity of [facility] No known No Univers medications ity of [facility] No known No Univers medications ity of [facility] Yes Florencio [address] [facility] Immunizations Ordered Filled Immunization Date Status Comments Sourc e Immunization Name Name HPV9 2020-12-07 Completed [facility] 00:00:00 [facility] HPV9 2020-12-07 Completed [facility] 00:00:00 [facility] HPV9 2020-12-07 Completed University of 00:00:00 [place] [facility] HPV9 2020-12-07 Completed University of 00:00:00 [place] [facility] HPV9 2020-12-07 Completed University of 00:00:00 [place] [facility] HPV9 2019-09-17 Completed University of 00:00:00 [facility] Branch HPV9 2019-09-17 Completed University of 00:00:00 [place] [facility] HPV9 2019-09-17 Completed University of 00:00:00 [place] [facility] HPV9 2019-09-17 Completed University of 00:00:00 [place] [facility] HPV9 2019-09-17 Completed University of 00:00:00 [place] [facility] HPV9 2019-09-17 Completed University of 00:00:00 [place] [facility] HPV9 2019-09-17 Completed University of 00:00:00 [place] [facility] HPV9 2019-09-17 Completed University of 00:00:00 [place] [facility] HPV9 2019-09-17 Completed University of 00:00:00 [place] [facility] HPV9 2019-09-17 Completed University of 00:00:00 [place] [facility] HPV9 2019-09-17 Completed University of 00:00:00 [place] [facility] HPV9 2019-09-17 Completed University of 00:00:00 [place] [facility] HPV9 2019-09-17 Completed University of 00:00:00 [place] [facility] HPV9 2019-09-17 Completed University of 00:00:00 [place] [facility] HPV9 2019-09-17 Completed University of 00:00:00 [facility] Branch HPV9 2019-09-17 Completed University of 00:00:00 [facility] Branch HPV9 2019-09-17 Completed University of 00:00:00 [facility] Branch HPV9 2019-09-17 Completed University of 00:00:00 [facility] HPV9 2019-08-05 Completed University of 00:00:00 [facility] Influenza Virus 2019-08-05 Completed Universit y of Vaccine Quad .5 mL 00:00:00 [facility] IM 6+ MO Branch HPV9 2019-08-05 Completed University of 00:00:00 [facility] Influenza Virus 2019-08-05 Completed Universit y of Vaccine Quad .5 mL 00:00:00 [facility] IM 6+ MO Branch HPV9 2019-08-05 Completed University of 00:00:00 [facility] Influenza Virus 2019-08-05 Completed Universit y of Vaccine Quad .5 mL 00:00:00 [place] [facility] IM 6+ MO Branch HPV9 2019-08-05 Completed University of 00:00:00 [facility] Influenza Virus 2019-08-05 Completed Universit y of Vaccine Quad .5 mL 00:00:00 [place] [facility] IM 6+ MO Branch HPV9 2019-08-05 Completed University of 00:00:00 [facility] Influenza Virus 2019-08-05 Completed Universit y of Vaccine Quad .5 mL 00:00:00 [place] [facility] IM 6+ MO Branch HPV9 2019-08-05 Completed University of 00:00:00 [facility] Influenza Virus 2019-08-05 Completed Universit y of Vaccine Quad .5 mL 00:00:00 [place] [facility] IM 6+ MO Branch HPV9 2019-08-05 Completed University of 00:00:00 [facility] Influenza Virus 2019-08-05 Completed Universit y of Vaccine Quad .5 mL 00:00:00 [place] [facility] 6+ MO Branch HPV9 2019-08-05 Completed University of 00:00:00 [facility] Influenza Virus 2019-08-05 Completed Universit y of Vaccine Quad .5 mL 00:00:00 [place] [facility] 6+ MO Branch HPV9 2019-08-05 Completed University of 00:00:00 [facility] Influenza Virus 2019-08-05 Completed Universit y of Vaccine Quad .5 mL 00:00:00 [place] [facility] 6+ MO Branch HPV9 2019-08-05 Completed University of 00:00:00 [facility] Influenza Virus 2019-08-05 Completed Universit y of Vaccine Quad .5 mL 00:00:00 [place] [facility] IM 6+ MO Branch HPV9 2019-08-05 Completed University of 00:00:00 [facility] Influenza Virus 2019-08-05 Completed Universit y of Vaccine Quad .5 mL 00:00:00 [place] [facility] IM 6+ MO Branch HPV9 2019-08-05 Completed University of 00:00:00 [facility] Influenza Virus 2019-08-05 Completed Universit y of Vaccine Quad .5 mL 00:00:00 [place] [facility] IM 6+ MO Branch HPV9 2019-08-05 Completed University of 00:00:00 [facility] Influenza Virus 2019-08-05 Completed Universit y of Vaccine Quad .5 mL 00:00:00 [place] [facility] IM 6+ MO Branch HPV9 2019-08-05 Completed University of 00:00: [facility] Influenza Virus 2019-08-05 Completed Universit y of Vaccine Quad .5 mL 00:00:00 [place] [facility] IM 6+ MO Branch HPV9 2019-08-05 Completed University of 00:00:00 [facility] Influenza Virus 2019-08-05 Completed Universit y of Vaccine Quad .5 mL 00:00:00 [place] [facility] IM 6+ MO Branch HPV9 2019-08-05 Completed University of 00:00:00 [facility] Influenza Virus 2019-08-05 Completed Universit y of Vaccine Quad .5 mL 00:00:00 [place] [facility] IM 6+ MO Branch HPV9 2019-08-05 Completed University of 00:00:00 [facility] Influenza Virus 2019-08-05 Completed Universit y of Vaccine Quad .5 mL 00:00:00 [place] [facility] 6+ MO Branch HPV9 2019-08-05 Completed University of 00:00:00 [facility] Influenza Virus 2019-08-05 Completed Universit y of Vaccine Quad .5 mL 00:00:00 [facility] 6+ MO Branch Tdap 2018-05-08 Completed University of 00:00:00 [facility] TDAP 2018-05-08 Completed University of 00:00:00 [facility] TDAP 2018-05-08 Completed University of 00:00:00 [facility] TDAP 2018-05-08 Completed University of 00:00:00 [facility] TDAP 2018-05-08 Completed University of 00:00:00 [facility] TDAP 2018-05-08 Completed University of 00:00:00 [facility] TDAP 2018-05-08 Completed University of 00:00:00 [place] [facility] [place] TDAP 2018-05-08 Completed University of 00:00:00 [place] [facility] TDAP 2018-05-08 Completed University of 00:00:00 [place] [facility] [place] TDAP 2018-05-08 Completed University of 00:00:00 [place] [facility] [place] Tdap 2018-05-08 Completed University of 00:00:00 [place] [facility] Tdap 2018-05-08 Completed University of 00:00:00 [place] [facility] [place] Tdap 2018-05-08 Completed University of 00:00:00 [facility] Tdap 2018-05-08 Completed University of 00:00:00 [facility] Tdap 2018-05-08 Completed University of 00:00:00 [facility] Tdap 2018-05-08 Completed University 00:00:00 [place] [facility] Tdap 2018-05-08 Completed University 00:00:00 [place] [facility] Tdap 2018-05-08 Completed University 00:00:00 [facility] Vital Signs Vital Name Observation Time Observation Value Comments Source Systolic blood 2020-12-07 14:40:00 109 mm[Hg] Univer sity of pressure [facility] Diastolic blood 2020-12-07 14:40:00 71 mm[Hg] Unive rsity of pressure [facility] Branch Heart rate 2020-12-07 14:40:00 89 /min Universi ty of [facility] Body temperature 2020-12-07 14:40:00 36.61 Mariella Univ ersity of [facility] Branch Respiratory rate 2020-12-07 14:40:00 16 /min Univ ersity of [facility] Body weight 2020-12-07 14:40:00 62.914 kg Universi ty of [facility] BMI 2020-12-07 14:40:00 21.72 kg/m2 Universi ty of [facility] Branch Systolic blood 2020-02-12 18:10:00 121 mm[Hg] Univer sity of pressure [place] [facility] Diastolic blood 2020-02-12 18:10:00 80 mm[Hg] Unive rsity of pressure [facility] Branch Heart rate 2020-02-12 18:10:00 103 /min Universi ty of [place] [facility] [place] Body temperature 2020-02-12 18:10:00 36.44 Mariella Univ ersity of [facility] Branch Respiratory rate 2020-02-12 18:10:00 16 /min Univ ersity of [facility] Branch Body height 2020-02-12 18:10:00 170.2 cm Universi ty of [place] [facility] Body weight 2020-02-12 18:10:00 73.539 kg Universi ty of [place] [facility] BMI 2020-02-12 18:10:00 25.39 kg/m2 Universi ty of [facility] Branch Systolic blood 2019-10-16 19:12:00 120 mm[Hg] Univer sity of pressure [place] [facility] Diastolic blood 2019-10-16 19:12:00 74 mm[Hg] Unive rsity of pressure [facility] Branch Heart rate 2019-10-16 19:12:00 96 /min Universi ty of [facility] Body temperature 2019-10-16 19:12:00 36.22 Mariella [facility] Respiratory rate 2019-10-16 19:12:00 16 /min [facility] Body height 2019-10-16 19:12:00 170.2 cm [facility] Body weight 2019-10-16 19:12:00 80.797 kg [facility] BMI 2019-10-16 19:12:00 27.90 kg/m2 [facility] Procedures Procedure Date / Time Performed Performing Clinician Jessica e GARDASIL 9 (HPV 9V) 2020-12-07 14:51:10 [facility] ASSIGNMENT OF BENEFITS 2020-12-07 14:12:37 Doctor Unassigned, No [facility] Encounters Start End Encounter Admission Attending Care Care Encounter Source Date/Time Date/Time Type Type Clinicians Facility Department ID 2021-07-06 Emergency [facility] [id number] Univers 18:46:07 [facility] 2021-08-08 2021-08-08 Outpatient R POLO [facility] [id number] Univers 09:30:00 09:30:00 SKYLER [id number] [facility] 2021-08-08 2021-08-08 Outpatient R POLO [facility] [id number] Univers 09:30:00 09:30:00 [facility] 2021-08-07 Outpatient Nacho CUELLAR [facility] [id number] Univers 14:30:00 14:30:00 SKYLER [id number] [facility] 2021-08-07 2021-08-07 Outpatient R POLO [facility] [id number] Univers 14:30:00 14:30:00 SKYLER [facility] 2021-07-20 2021-07-20 Outpatient R [facility] [id number] Univers 09:30:00 09:30:00 [id number] [facility] 2021-07-20 2021-07-20 Outpatient R LINDEN [facility] [id number] Univers 09:30:00 09:30:00 LORENZO villatoro o f [facility] 2021-07-14 2021-07-14 [facility] [id number] Univers 00:00:00 00:00:00 Magalys Monique RETAIL PLANNING MANAGER [id number] ity of REGIONAL [id number] [place] as MATERNAL [id number] [facility] CHILD [address] [place] [address] 2020-12-08 2020-12-08 Telephone [facility] [id number] 00:00:00 00:00:00 German R RETAIL PLANNING MANAGER [id number] REGIONAL [id number] MATERNAL [id number] & [address] 2020-12-08 2020-12-08 [facility] [id number] [facility] 00:00:00 00:00:00 [facility] RETAIL PLANNING MANAGER [id number] ity of REGIONAL [id number] [place] MATERNAL [id number] [facility] CHILD [address] [place] [address] 2020-12-07 2020-12-07 [facility] [id number] Univers 09:16:24 10:08:04 Visit Janethjackiegeorgina Nacho RETAIL PLANNING MANAGER [id number] ity of REGIONAL [id number] [place] MATERNAL [id number] [facility] CHILD [address] [place] [address] 2020-12-07 2020-12-07 Outpatient Nacho PUCKETT [facility] [id number] Univers 09:00:00 09:00:[id number] [facility] 2020-12-07 2020-12-07 Outpatient Nacho PUCKETT [facility] [id number] Univers 09:00:00 09:00:00 ALMAZA ity o f [facility] 2020-12-07 2020-12-07 Fabiano SOTO [id number] Univers 00:00:00 00:00:00 Only Unassigned, FRANCO [id number] ity of [facility] [id number] [place] as [id number] [address] 2020-05-13 2020-05-13 Outpatient R [facility] [id number] Univers 13:00:00 13:00:00 ity of [facility] 2020-05-02 2020-05-02 Telephone Wong [facility] [id number] Univers 00:00:00 00:00:00 German Griffith RETAIL PLANNING MANAGER [id number] ity of [facility] [id number] [place] MATERNAL [id number] Med ical & CHILD [address] [place] [address] 2020-02-12 2020-02-12 [facility] [id number] Univers 12:56:01 13:27:54 Visit German Puckett RETAIL PLANNING MANAGER [id number] ity of [id number] [place] MATERNAL [phone] Med ical & CHILD [address] [place] [address] 2020-02-12 2020-02-12 Outpatient [facility] [id number] Univers 13:00:00 13:00:00 ity of [facility] 2020-02-12 2020-02-12 [id number] Univers 13:00:00 13:00:00 GERMAN ity o f [facility] 2020-02-11 2020-02-11 Telephone Puckett, [facility] [id number] Univers 00:00:00 00:00:00 German Griffith RETAIL PLANNING MANAGER [id number] ity of [facility] [id number] [place] MATERNAL [phone] Med ical & CHILD [address] [place] [address] 2020-02-11 2020-02-11 Telephone Krystal [facility] [id number] Univers 00:00:00 00:00:00 Magalys Monique RETAIL PLANNING MANAGER [id number] ity of [facility] [id number] [place] MATERNAL [phone] Med ical & CHILD [address] [place] [address] 2020-02-09 2020-02-09 Outpatient R WONG [facility] [id number] Univers 14:00:00 14:00:00 GERMAN [id number] ity o f [facility] 2020-02-09 2020-02-09 Outpatient R WONG [facility] [id number] Univers 14:00:00 14:00:00 JANETHNDA ity o f [facility] [facility] 2020-02-03 2020-02-03 Outpatient R [facility] [id number] Univers 13:00:00 13:00:00 ity of [facility] 2019-12-31 2019-12-31 Emergency Yacaroline [facility] [id number] Univers 00:39:27 01:01:00 Monica Justyn [place] [id number] ity of [place] [id number] [facility] [id number] [address] 2019-10-19 2019-10-19 Telephone Wong [facility] [id number] Univers 00:00:00 00:00:00 Lizbetjohnnyyazmin R RETAIL PLANNING MANAGER [id number] ity of [facility] [id number] [place] as MATERNAL [id number] [facility] & CHILD [address] [place] [address] 2019-10-16 2019-10-16 Office Wong [facility] [id number] Univers 12:48:54 14:02:54 Visit German Griffith RETAIL PLANNING MANAGER [id number] ity of [facility] [id number] [place] as MATERNAL [phone] [facility] & CHILD [address] [place] [address] 2018-02-25 2018-02-25 [facility] [id number] 08:45:00 08:45:00 [facility] Medicine Outpati ent Clinics Results This patient has no known results.
== END 2021-07-22 16:30 | disposition home or self-care (01) ==
LOC: ER 15:49
DX: N76.4 Abscess of vulva (principal); F17.210 Nicotine dependence, cigarettes, uncomplicated
CPT/HCPCS: 99283

== ENCOUNTER 2021-07-26 13:57 | Emergency (ER) | payer SELFPAY ==
--- OUTSIDE RECORDS SUMMARY | 2021-07-26 14:02 | XMS REPORT | Continuity of Care Document ---
:1995 Author Organization [facility] t Address [address] [place] [address] Care Team Providers Name Role Phone Eneida [...] Effective Date Expiration Date Justyn moctezuma [id number] [id number] 2019 00:00:00 Advance Directives Directive Decision Effective Termination Comments Source Date Date Healthcare Agents on N/A Univ [facility] FileNameRelationBanner Agent Medical RelationshipCommunicationCounts include 234 beds at the [facility] Care [phone] (Mobile) Problems Condition Condition Condition Status Onset Resolution Last Treating Co mments Source Name Details Category Date Date Treatment Clinician Date Nexplanon Nexplanon Disease Active Uni vers in place in place 3 ity of 00:00: [place] 00 [facility] Need for Need for Disease Active Unive rs HPV HPV 3- [place] of [place] [facility] Internal Internal Disease Active Unive rs thrombosed thrombosed 6 it y of hemorrhoid [place] [facility] Vaginal Vaginal Disease Active Univers discharge discharge 2-07 ity of 00:00: [place] 00 [facility] Chlamydia Chlamydia Disease Active 2018-09 Uni vers trachomati trachomati 2-02 it y of s s 00:00: [place] infection infection 00 [facility] of lower of lower Branch genitourin genitourin victorina sites victorina sites Screening Screening Disease Active 2017-09 Uni vers examinatio examinatio 10-04 it y of n for STD n for STD [place] ([place] (sexually 00 [facility] transmitte transmitte Br anch d disease) d disease) Tobacco Tobacco Disease Active 2017-09 Univers use use 10-04 ity of disorder disorder 00:00: [address] 23 weeks 23 weeks Diagnosis Active [facility] gestation gestation Luke [facility] - [facility] Paronychia Paronychia Diagnosis Active [facility] of finger of finger Luke s - of left of left Memoria hand hand l [facility] Allergies, Adverse Reactions, Alerts Allergy Allergy Status Severity Reaction(s) Onset Inactive Treating Comm ents Source Name Type Date Date Clinician NO KNOWN Drug Active Univers ALLERGIE Class ity of S [facility] Social History Social Habit Start Date Stop Date Quantity Comments Source History of tobacco 2007-10-04 Cigarette Smoker University of use 00:00:00 [facility] History SDOH University o f Alcohol Frequency [facility] History SDOH University o f Alcohol Std Drinks [facility] History SDOH University o f Alcohol Binge [facility] [place] Exposure to Not sure [place] of SARS-CoV-2 (event) [facility] Tobacco use and 2020-12-07 2020-12-07 Never used Universit y of exposure 00:00:00 00:00:00 [facility] Cigarettes smoked 2020-12-07 2020-12-07 Univers ity of current (pack per 00:00:00 00:00:00 [facility] ) - Reported Branch Cigarette 2020-12-07 2020-12-07 University of pack-years 00:00:00 00:00:00 [facility] Alcohol intake 2020-12-07 2020-12-07 Current drinker Unive rsity of 00:00:00 00:00:00 of alcohol [facility] (finding) Branch Alcohol Comment 2020-12-07 2020-12-07 socially Universit y of 00:00:00 00:00:00 [facility] Sex Assigned At [birth year] Universit y of 00:00:00 00:00:00 [facility] Smoking Status Start Date Stop Date Source Current every day smoker 2020-12-07 00:00:00 Uni versity of [facility] Medications Ordered Filled Start Stop Current Ordering Indication Dosage Frequency Signature Comments Components Source Medication Medication Date Date Medication? Clinician (SIG) Name Name nelda 2020- No [id number] 1000mg Take 2 Univers n 500 mg 12-08 tablets by ity of tablet 00:00: 04:59 mouth [place] 00 :00 daily for Medical 1 day. Gómez nelda 2020- No [id number] 1000mg Take 2 Univers n 500 mg 12-08 tablets by ity of tablet 00:00: 04:59 mouth [place] 00 :00 daily for Medical 1 day. Branch No known No Univers medications 12-07 ity of 09:53: [place] 46 [facility] cefTRIAXone 2019- No 250mg Univ ers (ROCEPHIN) [...] of Therapy: 7 days brandinmarkromyci 2019- No [id number] 1000mg Take 2 Univers n 500 mg 02-10 tablets by ity of tablet 00:00: 04:59 mouth [place] 00 :00 daily for Medical 1 day. Branch azithromyci 2020- No [id number] 1000mg Take 2 Univers n 500 mg 6-04 06-06 tablets by ity of tablet 00:00: 04:59 mouth [place] 00 :00 daily for Medical 1 day. Branch azithromyci 2019-0 2020- No [id number] 1000mg Take 2 Univers n 500 mg 6-04 06-06 tablets by ity of tablet 00:00: 04:59 mouth [place] 00 :00 daily for Medical 1 day. Branch azithromyci 2019-0 2020- No [id number] 1000mg Take 2 Univers n 500 mg 6-04 06-06 tablets by ity of tablet 00:00: 04:59 mouth [place] 00 :00 daily for Medical 1 day. Branch hydrocortis 2019-0 Yes [id number] 25mg Insert 1 Univers one 25 mg 6-02 Suppositor ity of suppository 00:00[place] rectum 2 Medical (two) Branch times daily. hydrocortis 2019-0 Yes [id number] 25mg Insert 1 Univers one 25 mg 6-02 Suppositor ity of suppository 00:00[place] 00 rectum 2 Medical (two) Branch times daily. hydrocortis 2019-0 Yes [id number] 25mg Insert 1 Univers one 25 mg 6-02 Suppositor ity of suppository 00:00[place] 00 rectum 2 Medical (two) Branch times daily. hydrocortis 2019-0 Yes [id number] 25mg Insert 1 Univers one 25 mg 6-02 Suppositor ity of suppository 00:00[place] 00 rectum 2 Medical (two) Branch times daily. hydrocortis 2019-0 Yes [id number] 25mg Insert 1 Univers one 25 mg 6-02 Suppositor ity of suppository 00:00: [place] 00 rectum 2 Medical (two) Branch times daily. hydrocortis 2019-0 Yes [id number] 25mg Insert 1 Univers one 25 mg 6-02 Suppositor ity of suppository 00:00: [place] 00 rectum 2 Medical (two) Branch times daily. hydrocortis 2019-0 Yes [id number] 25mg Insert 1 Univers one 25 mg 6-02 Suppositor ity of suppository 00:00: [place] 00 rectum 2 Medical (two) Branch times daily. hydrocortis Yes [id number] 25mg Insert 1 Univers one 25 mg 6-02 Suppositor ity of suppository 00:00: [place] 00 rectum 2 Medical (two) Branch times daily. hydrocortis No [id number] 25mg Insert 1 Univers one 25 mg 6-02 - Suppositor ity of suppository 00:00: 00:00 y into [place] as 00 :00 rectum 2 Medical (two) Branch times daily. hydrocortis No [id number] 25mg Insert 1 Univers one 25 mg 6-12-07 Suppositor ity of suppository 00:00: 00:00 y into [place] as 00 :00 rectum 2 Medical (two) Branch times daily. metroNIDAZO No [id number] 500mg Take 1 Univers LE 500 mg 10-19 tablet by ity of tablet 00:00: 05:59 mouth 2 [place] 00 :00 (two) Medical times Branch daily for 7 days. metroNIDAZO No [id number] 500mg Take 1 Univers LE 500 mg 2-18 tablet by ity of tablet 00:00: 05:59 mouth 2 [place] 00 :00 (two) Medical times Branch daily for 7 days. fluconazole No [id number] 150mg Take 1 Univers (DIFLUCAN) 2-10-20 tablet by ity of 150 mg 00:00: 05:59 [place] tablet 00 :00 now for 1 Medical dose. Branch fluconazole No [id number] 150mg Take 1 Univers (DIFLUCAN) 2-11 tablet by ity of 150 mg 00:00: 05:59 [place] tablet 00 :00 now for 1 Medical dose. Branch No known No Univers medications ity of [facility] No known No Univers medications ity of [facility] No known No Univers medications ity of [facility] Yes Florencio [address] [facility] Immunizations Ordered Filled Immunization Date Status Comments Sourc e Immunization Name Name HPV9 2020-12-07 Completed [facility] 00:00:00 [facility] HPV9 2020-12-07 Completed [facility] 00:00:00 [facility] HPV9 2020-12-07 Completed University of 00:00:00 [place] [facility] HPV9 2020-12-07 Completed University of 00:00:00 [place] [facility] HPV9 2020-12-07 Completed University of 00:00:00 [place] [facility] HPV9 2019-09-17 Completed University of 00:00:00 [facility] HPV9 2019-09-17 Completed University of 00:00:00 [...] Branch HPV9 2019-09-17 Completed University of 00:00:00 [facility] HPV9 2019-09-17 Completed University of 00:00:00 [facility] HPV9 2019-09-17 Completed University of 00:00:00 [facility] HPV9 2019-09-17 Completed University of 00:00:00 [facility] HPV9 2019-08-05 Completed University of 00:00:00 [facility] Influenza Virus 2019-08-05 Completed Universit y of Vaccine Quad .5 mL 00:00:00 [facility] IM 6+ MO Branch HPV9 2019-08-05 Completed University of 00:00:00 [facility] Influenza Virus 2019-08-05 Completed Universit y of Vaccine Quad .5 mL 00:00:00 [facility] IM 6+ MO Branch HPV9 2019-08-05 Completed University of 00:00:00 [facility] Influenza Virus 2019-08-05 Completed Universit y of Vaccine Quad .5 mL 00:00:00 [place] [facility] IM 6+ MO Branch HPV9 2019-08-05 Completed University of 00:00:00 [facility] Influenza Virus 2019-08-05 Completed Universit y of Vaccine Quad .5 mL 00:00:00 [place] [facility] IM 6+ MO Branch HPV9 2019-08-05 Completed University of 00:00:00 [facility] Influenza Virus 2019-08-05 Completed Universit y of Vaccine Quad .5 mL 00:00:00 [place] [facility] IM 6+ MO Branch HPV9 2019-08-05 Completed University of 00:00:00 [facility] Influenza Virus 2019-08-05 Completed Universit y of Vaccine Quad .5 mL 00:00:00 [place] [facility] IM 6+ MO Branch HPV9 2019-08-05 Completed University of 00:00:00 [facility] Influenza Virus 2019-08-05 Completed Universit y of Vaccine Quad .5 mL 00:00:00 [place] [facility] 6+ MO Branch HPV9 2019-08-05 Completed University of 00:00:00 [facility] Influenza Virus 2019-08-05 Completed Universit y of Vaccine Quad .5 mL 00:00:00 [place] [facility] 6+ MO Branch HPV9 2019-08-05 Completed University of 00:00:00 [facility] Influenza Virus 2019-08-05 Completed Universit y of Vaccine Quad .5 mL 00:00:00 [place] [facility] 6+ MO Branch HPV9 2019-08-05 Completed University of 00:00:00 [facility] Influenza Virus 2019-08-05 Completed Universit y of Vaccine Quad .5 mL 00:00:00 [place] [facility] IM 6+ MO Branch HPV9 2019-08-05 Completed University of 00:00:00 [facility] Influenza Virus 2019-08-05 Completed Universit y of Vaccine Quad .5 mL 00:00:00 [place] [facility] IM 6+ MO Branch HPV9 2019-08-05 Completed University of 00:00:00 [facility] Influenza Virus 2019-08-05 Completed Universit y of Vaccine Quad .5 mL 00:00:00 [place] [facility] IM 6+ MO Branch HPV9 2019-08-05 Completed University of 00:00:00 [facility] Influenza Virus 2019-08-05 Completed Universit y of Vaccine Quad .5 mL 00:00:00 [place] [facility] IM 6+ MO Branch HPV9 2019-08-05 Completed University of 00:00: [facility] Influenza Virus 2019-08-05 Completed Universit y of Vaccine Quad .5 mL 00:00:00 [place] [facility] IM 6+ MO Branch HPV9 2019-08-05 Completed University of 00:00:00 [facility] Influenza Virus 2019-08-05 Completed Universit y of Vaccine Quad .5 mL 00:00:00 [place] [facility] IM 6+ MO Branch HPV9 2019-08-05 Completed University of 00:00:00 [facility] Influenza Virus 2019-08-05 Completed Universit y of Vaccine Quad .5 mL 00:00:00 [place] [facility] IM 6+ MO Branch HPV9 2019-08-05 Completed University of 00:00:00 [facility] Influenza Virus 2019-08-05 Completed Universit y of Vaccine Quad .5 mL 00:00:00 [place] [facility] 6+ MO Branch HPV9 2019-08-05 Completed University of 00:00:00 [facility] Influenza Virus 2019-08-05 Completed Universit y of Vaccine Quad .5 mL 00:00:00 [facility] 6+ MO Branch Tdap 2018-05-08 Completed University of 00:00:00 [facility] TDAP 2018-05-08 Completed University of 00:00:00 [facility] TDAP 2018-05-08 Completed University of 00:00:00 [facility] TDAP 2018-05-08 Completed University of 00:00:00 [facility] TDAP 2018-05-08 Completed University of 00:00:00 [facility] TDAP 2018-05-08 Completed University of 00:00:00 [facility] TDAP 2018-05-08 Completed University of 00:00:00 [place] [facility] TDAP 2018-05-08 Completed University of 00:00:00 [place] [facility] TDAP 2018-05-08 Completed University of 00:00:00 [place] [facility] [place] TDAP 2018-05-08 Completed University of 00:00:00 [place] [facility] [place] Tdap 2018-05-08 Completed University of 00:00:00 [place] [facility] Tdap 2018-05-08 Completed University of 00:00:00 [place] [facility] [place] Tdap 2018-05-08 Completed University of 00:00:00 [facility] Tdap 2018-05-08 Completed University of 00:00:00 [facility] Tdap 2018-05-08 Completed University of 00:00:00 [facility] Tdap 2018-05-08 Completed University 00:00:00 [place] [facility] Tdap 2018-05-08 Completed University 00:00:00 [place] [facility] Tdap 2018-05-08 Completed University 00:00:00 [facility] Vital Signs Vital Name Observation Time Observation Value Comments Source Systolic blood 2020-12-07 14:40:00 109 mm[Hg] Univer sity of pressure [facility] Diastolic blood 2020-12-07 14:40:00 71 mm[Hg] Unive rsity of pressure [facility] Heart rate 2020-12-07 14:40:00 89 /min Universi ty of [facility] Body temperature 2020-12-07 14:40:00 36.61 Mariella Univ ersity of [facility] Respiratory rate 2020-12-07 14:40:00 16 /min Univ ersity of [facility] Body weight 2020-12-07 14:40:00 62.914 kg Universi ty of [facility] BMI 2020-12-07 14:40:00 21.72 kg/m2 Universi ty of [facility] Systolic blood 2020-02-12 18:10:00 121 mm[Hg] Univer sity of pressure [place] [facility] Diastolic blood 2020-02-12 18:10:00 80 mm[Hg] Unive rsity of pressure [facility] Heart rate 2020-02-12 18:10:00 103 /min Universi ty of [place] [facility] [place] Body temperature 2020-02-12 18:10:00 36.44 Mariella Univ ersity of [facility] Respiratory rate 2020-02-12 18:10:00 16 /min Univ ersity of [facility] Body height 2020-02-12 18:10:00 170.2 cm Universi ty of [place] [facility] Body weight 2020-02-12 18:10:00 73.539 kg Universi ty of [place] [facility] BMI 2020-02-12 18:10:00 25.39 kg/m2 Universi ty of [facility] Systolic blood 2019-10-16 19:12:00 120 mm[Hg] Univer sity of pressure [place] [facility] Diastolic blood 2019-10-16 19:12:00 74 mm[Hg] Unive rsity of pressure [facility] Heart rate 2019-10-16 19:12:00 96 /min Universi ty of [facility] Body temperature 2019-10-16 19:12:00 36.22 Mariella [facility] Respiratory rate 2019-10-16 19:12:00 16 /min [facility] Body height 2019-10-16 19:12:00 170.2 cm [facility] Body weight 2019-10-16 19:12:00 80.797 kg [facility] BMI 2019-10-16 19:12:00 27.90 kg/m2 [facility] Procedures Procedure Date / Time Performed Performing Clinician Jessica e GARDASIL 9 (HPV 9V) 2020-12-07 14:51:10 German Puckett [facility] ASSIGNMENT OF BENEFITS 2020-12-07 14:12:37 Doctor Unassigned, No [facility] Encounters Start End Encounter Admission Attending Care Care Encounter Source Date/Time Date/Time Type Type Clinicians Facility Department ID 2021-07-06 Emergency [facility] [id number] Univers 18:46:07 [facility] [place] 2021-08-08 2021-08-08 Outpatient R POLO [facility] [id number] Univers 09:30:00 09:30:00 SKYLER [id number] [facility] [place] 2021-08-08 2021-08-08 Outpatient R POLO [facility] [id number] Univers 09:30:00 09:30:00 [facility] 2021-08-07 2021-08-07 Outpatient Nacho CUELLAR [facility] [id number] Univers 14:30:00 14:30:00 SKYLER [id number] [facility] [place] 2021-08-07 2021-08-07 Outpatient R POLO [facility] [id number] Univers 14:30:00 14:30:00 SKYLER [facility] [place] 2021-07-20 2021-07-20 Outpatient R [facility] [id number] Univers 09:30:00 09:30:00 [id number] [facility] 2021-07-20 2021-07-20 Outpatient R LINDEN [facility] [id number] Univers 09:30:00 09:30:00 LORENZO villatoro o f [facility] 2021-07-14 2021-07-14 [facility] [id number] Univers 00:00:00 00:00:00 Magalys Monique REGULATORY ANALYST [id number] ity of REGIONAL [id number] [place] as MATERNAL [id number] [facility] & CHILD [address] [place] [address] 2020-12-08 2020-12-08 Telephone [facility] [id number] 00:00:00 00:00:00 German R REGULATORY ANALYST [id number] REGIONAL [id number] MATERNAL [id number] & [address] 2020-12-08 2020-12-08 Critical access hospital [id number] [facility] 00:00:00 00:00:00 [facility] REGULATORY ANALYST [id number] ity of REGIONAL [id number] [place] as MATERNAL [id number] [facility] & CHILD [address] [place] [address] 2020-12-07 2020-12-07 [facility] [id number] Univers 09:16:24 10:08:04 Visit Janethjackiegeorgina Nacho REGULATORY ANALYST [id number] ity of REGIONAL [id number] [place] as MATERNAL [id number] [facility] & CHILD [address] [place] [address] 2020-12-07 2020-12-07 Outpatient Nacho PUCKETT [facility] [id number] Univers 09:00:00 09:00:00 GERMAN [id number] ity o [facility] 2020-12-07 2020-12-07 Outpatient Nacho PUCKETT [facility] [id number] Univers 09:00:00 09:00:00 ALMAZA ity o f [facility] 2020-12-07 2020-12-07 Fabiano SOTO [id number] Univers 00:00:00 00:00:00 Only Unassigned, FRANCO [id number] ity of [facility] [id number] [place] as [id number] [address] 2020-05-13 2020-05-13 Outpatient R [facility] [id number] Univers 13:00:00 13:00:00 ity of [facility] 2020-05-02 2020-05-02 Telephone Wong [facility] [id number] Univers 00:00:00 00:00:00 German Griffith REGULATORY ANALYST [id number] ity of [facility] [id number] [place] as MATERNAL [id number] Med ical & CHILD [address] [place] [address] 2020-02-12 2020-02-12 [facility] [id number] Univers 12:56:01 13:27:54 Visit German Puckett REGULATORY ANALYST [id number] ity of [id number] [place] as MATERNAL [id number] Med ical & CHILD [address] [place] [address] 2020-02-12 2020-02-12 Outpatient [facility] [id number] Univers 13:00:00 13:00:00 ity of [facility] 2020-02-12 2020-02-12 [facility] [id number] Univers 13:00:00 13:00:00 GERMAN ity o f [facility] 2020-02-11 2020-02-11 Telephone Puckett, [facility] [id number] Univers 00:00:00 00:00:00 German Griffith REGULATORY ANALYST [id number] ity of [facility] [id number] [place] as MATERNAL [id number] Med ical & CHILD [address] [place] [address] 2020-02-11 2020-02-11 Telephone Krystal [facility] [id number] Univers 00:00:00 00:00:00 Magalys Monique REGULATORY ANALYST [id number] ity of [facility] [id number] [place] as MATERNAL [id number] Med ical & CHILD [address] [place] [address] 2020-02-09 2020-02-09 Outpatient R WONG [facility] [id number] Univers 14:00:00 14:00:00 GERMAN [id number] ity o f [facility] 2020-02-09 2020-02-09 Outpatient R WONG [facility] [id number] Univers 14:00:00 14:00:00 JANETHNDA ity o f [facility] 2020-02-03 2020-02-03 Outpatient R [facility] [id number] Univers 13:00:00 13:00:00 ity of [facility] 2019-12-31 2019-12-31 Emergency Yacaroline [facility] [id number] Univers 00:39:27 01:01:00 Monica Justyn [place] [id number] ity of [place] [id number] [facility] [id number] [address] 2019-10-19 2019-10-19 Telephone Wong [facility] [id number] Univers 00:00:00 00:00:00 Lizbetjohnnyyazmin R REGULATORY ANALYST [id number] ity of [facility] [id number] [place] as MATERNAL [id number] [facility] & CHILD [address] [place] [address] 2019-10-16 2019-10-16 Office Wong [facility] [id number] Univers 12:48:54 14:02:54 Visit German Griffith REGULATORY ANALYST [id number] ity of [facility] [id number] [place] as MATERNAL [id number] [facility] & CHILD [address] [place] [address] 2018-02-25 2018-02-25 [facility] [id number] 08:45:00 08:45:00 [facility] Medicine Outpati ent Clinics Results This patient has no known results.
[2021-07-26] MEDS ORDERED: LIDOCAINE 1% MPF 5 ML VIAL ONE (14:16)
--- NOTE | 2021-07-26 14:35 | ER ---
Nurse's Notes [facility] Name: Mitra Melendez Age: 25 yrs Sex: Female : 1995 Arrival Date: 07/26/2021 Time: 14:01 Bed 6 Private MD: Derick Pugh E Diagnosis: Cutaneous abscess of groin-left labia majora Presentation: 07/26 14:10 Chief complaint: Patient states: abscess on left labia majora is getting worse. iw Coronavirus screen: At this time, the client does not indicate any symptoms associated with coronavirus-19. Ebola Screen: Patient negative for fever greater than or equal to 101.5 degrees Fahrenheit, and additional compatible Ebola Virus Disease symptoms Patient denies exposure to infectious person. Patient denies travel to an Ebola-affected area in the 21 days before illness onset. No symptoms or risks identified at this time. Initial Sepsis Screen: Does the patient meet any 2 criteria? No. Patient's initial sepsis screen is negative. Does the patient have a suspected source of infection? No. Patient's initial sepsis screen is negative. Risk Assessment: Do you want to hurt yourself or someone else? Patient reports no desire to harm self or others. Onset of symptoms was July 26, 2021. 14:10 Method Of Arrival: Ambulatory iw 14:10 Acuity: ELBERT 4 iw PIT HAND: 14:12 LMP 07/17/2021 ap3 Historical: - Allergies: 14:10 No Known Drug Allergies; tw2 - Home Meds: 14:10 None [Active]; iw - PMHx: 14:13 Substance Abuse; iw - PSHx: 14:10 None; iw - Immunization history:: Adult Immunizations. - Social history:: Smoking status: Patient reports the use of cigarette tobacco products, smokes one pack cigarettes per day. Patient uses alcohol, occasionally. street drugs, marijuana. Screenin:10 Abuse screen: Denies threats or abuse. Nutritional screening: No deficits noted. tw2 Tuberculosis screening: No symptoms or risk factors identified. Fall Risk None identified. Assessment: 14:10 General: Appears in no apparent distress. Behavior is cooperative. Pain: Complains of ap3 pain in left labia majora Alleviated by rest, heat application, Aggravated by increased activity, repositioning. Neuro: Level of Consciousness is awake, alert, obeys commands, Oriented to person, place, time, situation, Appropriate for age Moves all extremities. Gait is steady, Speech is normal. Cardiovascular: Patient's skin is warm and dry. Respiratory: Airway is patent Respiratory effort is even, unlabored, Respiratory pattern is regular, symmetrical. Derm: Abscess located on left labia majora is dime sized. Vital Signs: 14:09 BP 125 / 69; Pulse 84; Resp 16; Temp 97.8(TE); Pulse Ox 98% on R/A; Weight 72.57 kg; iw Height 5 ft. 7 in. (170.18 cm); 14:09 Body Mass Index 25.06 (72.57 kg, 170.18 cm) iw ED Course: 14:01 Patient arrived in ED. am2 14:01 Derick Pugh MD is Private Physician. am2 14:06 Guer[facility] Rollins [facility]C [facility] kb 14:06 John Benjamin MD is Attending Physician. kb 14:07 Rebecca Taveras, DANI is Primary Nurse. ap3 14:10 Triage completed. iw 14:10 Placed in gown. Bed in low position. Call light in reach. Pulse ox on. NIBP on. tw2 14:11 Arm band placed on right wrist. ap3 14:41 Assist provider with I \T\ D: of an abscess on left perineal Set up I\T\D tray. Performed ap 3 by Guerline GRACE Patient tolerated well. Patient did not have IV access during this emergency room visit. Administered Medications: 14:20 Drug: Lidocaine (1 %) 1 application {Note: administered by SUSU Cunha.} Volume: 5 ml; jl7 Route: Infiltration; Outcome: 14:35 Discharge ordered by . kb 14:41 Discharged to home ambulatory. ap3 14:41 Condition: good 14:41 Discharge instructions given to patient, Instructed on discharge instructions, follow up and referral plans. Demonstrated understanding of instructions, follow-up care. 14:41 Patient left the ED. ap3 Signatures: Guerline Rollins FNP-C FNP-Ladonna Rainey RN RN iw Michelle Polanco RN RN tw2 Reyes Galeana RN RN jl7 Rebecca Martinez am Rebecca Taveras RN RN ap3 Corrections: (The following items were deleted from the chart) 14:10 PMHx: Substance Abuse; 14:10 PMHx: None; 14:09 Temp 97.8F Temporal; 14:11 PMHx: Sunstance Abuse;
--- NOTE | 2021-07-26 14:35 | EDPHYS ---
Physician Documentation [facility] Name: Mitra Melendez Age: 25 yrs Sex: Female : 1995 Arrival Date: 07/26/2021 Time: 14:01 Bed 6 Private MD: Derick Pugh E ED Physician John Benjamin HPI: 07/26 14:21 This 25 yrs old Female presents to ER via Ambulatory with complaints of Skin kb Problem. 14:21 The patient presents with an abscess of the left labia majora. Description: kb erythematous, swollen, warm. Severity of symptoms: At their worst the symptoms were mild, moderate, in the emergency department the symptoms are unchanged. The patient has not experienced similar symptoms in the past. The patient has been recently seen at the [facility] Emergency Department, last week, for similar complaints was given a prescription for antibiotics. 14:21 Onset: The symptoms/episode began/occurred 8 day(s) ago. Possible cause(s): unknown. kb Associated signs and symptoms: Pertinent positives: erythema, swelling, Pertinent negatives: discharge, drainage, foreign body sensation, fever, headache, nausea, shortness of breath, vomiting. Modifying factors: the symptoms are alleviated by nothing, the symptoms are aggravated by pressure, squeezing the lesion and expressing the contents, touching. Pt was seen by me 4 days ago for abscess to left labia majora. No drainable abscess at the time so pt put on antibiotics. Pt states it has gotten bigger since then and more painful. 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 - Social history:: Smoking status: Patient reports the use of cigarette tobacco products, smokes one pack cigarettes per day. Patient uses alcohol, occasionally. street drugs, marijuana. ROS: 14:20 Constitutional: Negative for fever, chills, and weight loss. kb 14:20 Skin: Positive for abscess, of the left labia majora. 14:20 All other systems are negative. Exam: 14:20 Constitutional: This is a well developed, well nourished patient who is awake, alert, kb and in no acute distress. Head/Face: Normocephalic, atraumatic. ENT: Moist Mucous membranes Respiratory: Respirations even and unlabored. No increased work of breathing, no retractions or nasal flaring. MS/ Extremity: Pulses equal, no cyanosis. Neurovascular intact. Full, normal range of motion. Neuro: Awake and alert, GCS 15, oriented to person, place, time, and situation. Moves all extremities. Normal gait. Psych: Awake, alert, with orientation to person, place and time. Behavior, mood, and affect are within normal limits. 14:20 Skin: abscess, that is small, of the left labia majora, with fluctuance, that is mild, with induration. Vital Signs: 14:09 BP 125 / 69; Pulse 84; Resp 16; Temp 97.8(TE); Pulse Ox 98% on R/A; Weight 72.57 kg; iw Height 5 ft. 7 in. (170.18 cm); 14:09 Body Mass Index 25.06 (72.57 kg, 170.18 cm) iw Procedures: 14:35 I \T\ D: Incision and drainage was performed for an abscess of the left left labia majora kb Prepped with Betadine, Anesthetized with 1 ml's 1% Lidocaine. Incised with #11 blade. Drained moderate amount purulent fluid. Dressing: sterile 4x4 gauze, the patient tolerated the procedure well. MDM: 14:07 Patient medically screened. kb 14:19 Data reviewed: vital signs, nurses notes. Data interpreted: Pulse oximetry: on room air kb is 98 %. Interpretation: normal. Counseling: I had a detailed discussion with the patient and/or guardian regarding: the historical points, exam findings, and any diagnostic results supporting the discharge/admit diagnosis, the need for outpatient follow up, an OB/Gyne specialist, to return to the emergency department if symptoms worsen or persist or if there are any questions or concerns that arise at home. 07/26 14:40 Order name: Incision \T\ Drainage Setup; Complete Time: 14:40 jl7 Administered Medications: 14:20 Drug: Lidocaine (1 %) 1 application {Note: administered by SUSU Cunha.} Volume: 5 ml; jl7 Route: Infiltration; Disposition: 17:54 Co-signature as Attending Physician, John Benjamin MD I agree with the assessment and rn plan of care. Attestation: The patient's history, exam findings, diagnostics, and a summary of any interventions or procedures was reviewed in detail with Guerline GRACE. Disposition Summary: 07/26/21 14:35 Discharge Ordered Location: Home kb Condition: Stable kb Diagnosis - Cutaneous abscess of groin - left labia majora kb Followup: kb - With: Emergency Department - When: As needed - Reason: Worsening of condition Followup: kb - With: Private Physician - When: 2 - 3 days - Reason: Recheck today's complaints, Continuance of care, Re-evaluation by your physician Discharge Instructions: - Skin Abscess, [id number] kb - Incision and Drainage, Care After kb - Discharge Summary Sheet [facility] Forms: - Medication Reconciliation Form kb - Thank You Letter kb - Antibiotic Education kb - Prescription Opioid Use kb Signatures: Guerline Rollins FNP-C FNP-CkLadonna Huang, RN RN John Benjamin MD MD rn Wise, Tara RN RN 2 Reyes Galeana RN RN jl7 Rebecca Taveras RN RN ap3 Corrections: (The following items were deleted from the chart) 14:11 14:10 PMHx: Substance Abuse; 14:11 14:10 PMHx: None; [facility] 14:13 14:11 PMHx: Sunstance Abuse; [facility]
[2021-07-26 14:48] VITALS: BP 125/69; TEMP 97.8; O2SAT 98
== END 2021-07-26 14:41 | disposition home or self-care (01) ==
LOC: ER 13:57
PROC: 0U9MXZZ Drainage of Vulva, External Approach (ICD-10-PCS; principal; 2021-07-26)
DX: N76.4 Abscess of vulva (principal)
CPT/HCPCS: 99283

== ENCOUNTER 2022-01-30 08:41 | Emergency (ER) | payer SELFPAY ==
--- OUTSIDE RECORDS SUMMARY | 2022-01-30 08:44 | XMS REPORT | Continuity of Care Document ---
:1995 Author Organization [facility] t Address [address] [place] [address] Care Team Providers Name Role Phone Eneida JACOBS Primary Care Physician Unavailable Nacho PUCKETT Attending Clinician Unavailable Nacho Gil Attending Clinician Payers Payer Name Policy Type Policy Number Effective Date Expiration Date Justyn moctezuma [id number] 2019 00:00:00 Problems Condition Condition Condition Status Onset Resolution Last Treating Co mments Source Name Details Category Date Date Treatment Clinician Date BMI BMI Disease Active Univers 25.0-25.9, 25.0-25.9, 4-07 it y of adult adult 00:00: [place] 00 [facility] Branch Nexplanon Nexplanon Disease Active Uni vers in place in place 331 ity of 00:00: [place] 00 [facility] Branch Flu Flu Disease Active Univers vaccine vaccine 331 ity of need need 00:00: [place] 00 [facility] Branch Internal Internal Disease Active Unive rs thrombosed thrombosed 6-02 [place] hemorrh[place] [facility] Chlamydia Chlamydia Disease Active 2018-09 Uni vers trachomati trachomati 2-02 it y of s s 00:00: [place] infection infection 00 Medi brisa of lower of lower Branch genitourin genitourin victorina sites victorina sites Encounter Encounter Disease Active 2017-09 Uni vers for for 1- [place] of 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 [place] of 00 Medical implantabl implantabl Br anch e e subdermal subdermal contracept contracept giovanna giovanna Tobacco Tobacco Disease Active 2017-09 Univers use use 10-04 ity of disorder disorder 00:00: [place] [address] Medical Branch 23 weeks 23 weeks Diagnosis Active Com mon gestation gestation Spir it of of - [facility] Paronychia Paronychia Diagnosis Active Common of finger of finger Spir it of left of left - [facility] Allergies, Adverse Reactions, Alerts Allergy Allergy Status Severity Reaction(s) Onset Inactive Treating Comm ents Source Name Type Date Date Clinician NO KNOWN Drug Active Univers ALLERGIE Class ity of S [facility] Social History Social Habit Start Date Stop Date Quantity Comments Source History of 2007-10-04 Cigarette Smoker Universi ty of tobacco use 00:00:00 [place] [facility] [place] History SDOH University o f Alcohol Frequency [place] [facility] History SDOH University o f Alcohol Std [place] [facility] Drinks Branch History SDOH University o f Alcohol Binge [place] [facility] Exposure to Not sure University SARS-CoV-2 [facility] (event) Branch Alcohol intake 2021-12-14 2021-12-14 Current drinker Unive rsity of 00:00:00 00:00:00 of alcohol [place] [facility] (finding) Branch Alcohol Comment 2020-12-07 2020-12-07 socially Universit y of 00:00:00 00:00:00 [facility] Sex [birth year] Universit y of 00:00:00 00:00:00 [facility] Smoking Status Start Date Stop Date Source Current every day smoker 2020-12-07 00:00:00 Uni versity of [facility] Medications Ordered Filled Start Stop Current Ordering Indication Dosage Frequency Signature Comments Components Source Medication Medication Date Date Medication? Clinician (SIG) Name Name No known No Univers medications -07 ity of 09:03: [place] [address] Medical Branch Yes Florencio 1 tablet C ommon [facility] Immunizations Ordered Filled Immunization Date Status Comments Sour e Immunization Name Name Influenza Virus 2021-12-14 Completed Universit y of Vaccine Quad .5 mL 00:00:00 [facility] 6+ MO Branch HPV9 2020-12-07 Completed University of 00:00:00 [facility] HPV9 2019-09-17 Completed University of 00:00:00 [facility] HPV9 2019-08-05 Completed University of 00:00:00 [facility] Influenza [facility]05 [facility] 00:[facility]:00 [facility] IM 6+ MO Branch TDAP 2018-05-08 Completed [facility] 00:00:00 [facility] Vital Signs Vital Name Observation Time Observation Value Comments Source Systolic blood 2021-12-14 13:58:00 115 mm[Hg] Univer sity of pressure [facility] Diastolic blood 2021-12-14 13:58:00 65 mm[Hg] Unive rsity of [facility] Heart rate 2021-12-14 13:58:00 82 /min [facility] Body temperature 2021-12-14 13:58:00 36.5 Mariella [facility] Respiratory rate 2021-12-14 13:58:00 16 /min [facility] Body height 2021-12-14 13:58:00 170.2 cm [facility] Body weight 2021-12-14 13:58:00 74.39 kg [facility] BMI 2021-12-14 13:58:00 25.69 kg/m2 [facility] Procedures Procedure Date / Time Performed Performing Clinician Sourc e FLU VACC ([id number]), 2021-12-14 14:41:01 German Puckett versity of [place] 6+ MONTHS, IM, QUAD Medical Bran ch Encounters Start End Encounter Admission Attending Care Care Encounter Source Date/Time Date/Time Type Type Clinicians Facility Department ID 2021-12-14 2021-12-14 Outpatient KATINA ALEXANDRE [facility] [id number] Univers 08:45:00 10:01:04 GERMAN bloomy o f [facility] 2021-12-14 2021-12-14 Office Italo DEANDREI [id number] Univers 08:45:00 10:01:04 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 [id number] ity [facility] [id number] [place] as MATERNAL [id number] Med ical & CHILD [address] [place] [address] 2021-12-12 2021-12-12 Outpatient Nacho PUCKETT [facility] [id number] Univers 09:30:00 09:30:00 GERMAN villatoor o f [facility] 2020-12-08 2020-12-08 Telephone Italo [facility] [id number] 00:00:00 00:00:00 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
--- NOTE | 2022-01-30 09:08 | EDPHYS ---
Physician Documentation [facility] Name: Mitra Melendez Age: 26 yrs Sex: Female : 1995 Arrival Date: 01/30/2022 Time: 08:42 Bed 4 Private MD: ED Physician John Benjamin HPI: 01/30 08:59 This 26 yrs old Female presents to ER via Ambulatory with complaints of swelling in rn mouth. 09:00 The patient presents with an abscess of the mouth. Description: swollen. Onset: The rn symptoms/episode began/occurred 1 week(s) ago. Possible cause(s): unknown. Associated signs and symptoms: Pertinent positives: swelling, Pertinent negatives: discharge, drainage, erythema, fever. Modifying factors: the symptoms are alleviated by nothing. Severity of symptoms: At their worst the symptoms were mild, in the emergency department the symptoms are unchanged. The patient has not experienced similar symptoms in the past. The patient has not recently seen a physician. Pt reports swelling in mouth, began approx 1 week ago, after biting lip. Reports prone to staph infections and has had multiple abscesses in past. No fever. NO drainage. . Historical: - Allergies: 08:57 No Known Allergies; ss - PMHx: 08:57 Substance Abuse; ss - Immunization history:: Adult Immunizations up to date. - Social history:: Smoking status: Patient reports the use of cigarette tobacco products, smokes one pack cigarettes per day. - Family history:: not pertinent. - Hospitalizations: : No recent hospitalization is reported. ROS: 09:00 Constitutional: Negative for fever, chills, and weight loss, Eyes: Negative for injury, rn pain, redness, and discharge, ENT: + oral swelling lower lip Cardiovascular: Negative for chest pain, palpitations, and edema, Respiratory: Negative for shortness of breath, cough, wheezing, and pleuritic chest pain, Abdomen/GI: Negative for abdominal pain, nausea, vomiting, diarrhea, and constipation. Exam: 09:00 Constitutional: This is a well developed, well nourished patient who is awake, alert, rn and in no acute distress. ENT: Mucous membranes moist. 1 cm swelling inner lower lip with tenderness and head to it. No erythema. Vital Signs: 08:55 BP 116 / 74; Pulse 109; Resp 18; Temp 98.0; Pulse Ox 97% on R/A; Weight 74.84 kg; ss Height 5 ft. 7 in. (170.18 cm); 08:55 Body Mass Index 25.84 (74.84 kg, 170.18 cm) ss Procedures: 09:00 I \T\ D: Incision and drainage was performed for an abscess of the lower inner lip rn Incised with 18g needle. Drained small amount purulent fluid. serosanguinous fluid. the patient tolerated the procedure well. MDM: 08:48 Patient medically screened. rn 09:00 Differential diagnosis: abscess, canker sore. Data reviewed: vital signs, nurses notes, rn and as a result, I will discharge patient. Counseling: I had a detailed discussion with the patient and/or guardian regarding: the historical points, exam findings, and any diagnostic results supporting the discharge/admit diagnosis, the need for outpatient follow up, to return to the emergency department if symptoms worsen or persist or if there are any questions or concerns that arise at home. Response to treatment: the patient's symptoms have markedly improved after treatment. Special discussion: I discussed with the patient/guardian in detail that at this point there is no indication for admission to the hospital. It is understood, however, that if the symptoms persist or worsen the patient needs to return immediately for re-evaluation. 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
--- NOTE | 2022-01-30 09:08 | ER ---
Nurse's Notes [facility] Name: Mitra Melendez Age: 26 yrs Sex: Female : 1995 Arrival Date: 01/30/2022 Time: 08:42 Bed 4 Private MD: Diagnosis: Cellulitis and abscess of mouth Presentation: 01/30 08:55 Chief complaint: Patient states: bump inside lip, sinus congestion. Coronavirus screen: ss Client denies travel out of the [place] in the last 14 days. Ebola Screen: Patient denies exposure to infectious person. Patient denies travel to an Ebola-affected area in the 21 days before illness onset. Initial Sepsis Screen: Does the patient meet any 2 criteria? No. Patient's initial sepsis screen is negative. Does the patient have a suspected source of infection? No. Patient's initial sepsis screen is negative. Risk Assessment: Do you want to hurt yourself or someone else? Patient reports no desire to harm self or others. Onset of symptoms was January 2022. 08:55 Method Of Arrival: Ambulatory ss 08:55 Acuity: ELBERT 4 ss Triage Assessment: 09:00 General: Appears in no apparent distress. comfortable, Behavior is appropriate for age. bp Pain: Denies pain. EENT: Reports nasal congestion. Neuro: No deficits noted. Cardiovascular: No deficits noted. Respiratory: No deficits noted. GI: No signs and/or symptoms were reported involving the gastrointestinal system. : No signs and/or symptoms were reported regarding the genitourinary system. Derm: No deficits noted. Musculoskeletal: No deficits noted. Historical: - Allergies: 08:57 No Known Allergies; ss - PMHx: 08:57 Substance Abuse; ss - Immunization history:: Adult Immunizations up to date. - Social history:: Smoking status: Patient reports the use of cigarette tobacco products, smokes one pack cigarettes per day. - Family history:: not pertinent. - Hospitalizations: : No recent hospitalization is reported. Screenin:57 Abuse screen: Denies threats or abuse. Denies injuries from another. Nutritional ss screening: No deficits noted. Tuberculosis screening: Never had TB. Fall Risk None identified. Assessment: 08:57 General: Appears in no apparent distress. comfortable, Behavior is calm, cooperative. ss Pain: Complains of pain in inside L lower lip. Neuro: Level of Consciousness is awake, alert, obeys commands, Oriented to person, place, time, situation. Cardiovascular: Capillary refill < 3 seconds is brisk in bilateral fingers Patient's skin is warm and dry. Respiratory: Airway is patent Respiratory effort is even, unlabored, Respiratory pattern is regular, symmetrical. Respiratory: Reports cough that is. GI: Patient currently denies diarrhea, nausea, vomiting. : No signs and/or symptoms were reported regarding the genitourinary system. EENT: Nares are clear Oral mucosa is moist. Derm: Skin is intact, is healthy with good turgor, Skin is dry, Skin is pink, warm \T\ dry. normal. Vital Signs: 08:55 BP 116 / 74; Pulse 109; Resp 18; Temp 98.0; Pulse Ox 97% on R/A; Weight 74.84 kg; ss Height 5 ft. 7 in. (170.18 cm); 08:55 Body Mass Index 25.84 (74.84 kg, 170.18 cm) ED Course: 08:42 Patient arrived in ED. am2 08:42 John Benjamin MD is Attending Physician. rn 08:42 Krystyna Lunsford FNP [facility] 08:57 Triage completed. 08:57 Arm band placed on right wrist. 08:57 Patient has correct armband on for positive identification. Bed in low position. Call ss light in reach. Side rails up X 1. 08:57 No provider procedures requiring assistance completed. Patient did not have IV access ss during this emergency room visit. 09:02 Timothy Sawyer, RN is Primary Nurse. bp Administered Medications: No medications were administered Medication: 08:57 VIS not applicable for this client. Outcome: 09:07 Discharge ordered by . rn 09:13 Discharged to home ambulatory. 09:13 Condition: good 09:13 Discharge instructions given to patient, Instructed on discharge instructions, follow up and referral plans. medication usage, Demonstrated understanding of instructions, follow-up care, medications, Prescriptions given X 1. 09:14 Patient left the ED. Signatures: John Benjamin MD MD rn Smirch, Shelby, RN RN Rebecca Martinez am2 Timothy Sawyer RN RN bp Hadash, Jennifer, FNP [place] [id number]
[2022-01-30 09:37] VITALS: BP 116/74; TEMP 98; O2SAT 97
== END 2022-01-30 09:14 | disposition home or self-care (01) ==
LOC: ER 08:41
PROC: 0W930ZZ Drainage of Oral Cavity and Throat, Open Approach (ICD-10-PCS; principal; 2022-01-30)
DX: K12.2 Cellulitis and abscess of mouth (principal); F17.210 Nicotine dependence, cigarettes, uncomplicated
CPT/HCPCS: 99282

== ENCOUNTER 2022-02-13 21:02 | Emergency (ER) | payer SELFPAY ==
--- OUTSIDE RECORDS SUMMARY | 2022-02-13 21:06 | XMS REPORT | Continuity of Care Document ---
:1995 Author Organization [facility] t Address [address] [place] [address] Care Team Providers Name Role Phone Eneida JACOBS Primary Care Physician Unavailable Nacho PUCKETT Attending Clinician Unavailable Nacho Gil Attending Clinician Payers Payer Name Policy Type Policy Number Effective Date Expiration Date Justyn moctezuma [id number] 2019 00:00:00 Problems Condition Condition Condition Status Onset Resolution Last Treating Co mments Source Name Details Category Date Date Treatment Clinician Date BMI BMI Disease Active Univers 25.0-25.9, 25.0-25.9, 4-07 it y of adult adult 00:[facility]: [place] [facility] Nexplanon Nexplanon Disease Active Uni vers in place in place 331 ity of 00:00: [place] [facility] Flu Flu Disease Active Univers vaccine vaccine 331 ity of need need 00:00: [place] [facility] Internal Internal Disease Active Unive rs [...] use 10-04 ity of disorder disorder 00:00: [place] [address] Medical Branch 23 weeks 23 weeks Diagnosis Active Com mon gestation gestation Spir it of of - [facility] Paronychia Paronychia Diagnosis Active Common of finger of finger Spir it of left of left - [facility] hand hand [facility] Allergies, Adverse Reactions, Alerts Allergy Allergy Status Severity Reaction(s) Onset Inactive Treating Comm ents Source Name Type Date Date Clinician NO KNOWN Drug Active Univers ALLERGIE Class ity of [facility] Social History Social Habit Start Date Stop Date Quantity Comments Source History of 2007-10-04 Cigarette Smoker Universi ty of tobacco use 00:00:00 [facility] History SDOH University o f Alcohol Frequency [place] [facility] History SDOH University o f Alcohol Std [place] [facility] History SDOH University o f Alcohol Binge [place] [facility] Exposure to Not sure University SARS-CoV-2 [facility] (event) Branch Alcohol intake 2021-12-14 2021-12-14 Current drinker Unive rsity of 00:00:00 00:00:00 of alcohol [facility] (finding) [facility] Alcohol Comment 2020-12-07 2020-12-07 socially Universit y of 00:00:00 00:00:00 [facility] Sex Ass[birth year] Universit y of 00:00:00 00:00:00 [facility] Smoking Status Start Date Stop Date Source Current every day smoker 2020-12-07 00:00:[address] [facility] Medications Ordered Filled Start Stop Current Ordering Indication Dosage Frequency Signature Comments Components Source Medication Medication Date Date Medication? Clinician (SIG) Name Name No known No Univers medications -07 ity of 09:03: [place] [address] Medical Branch Yes Florencio 1 tablet C ommon [facility] Immunizations Ordered Filled Immunization Date Status Comments Sour e Immunization Name Name Influenza Virus 2021-12-14 Completed Universit y of Vaccine Quad .5 mL 00:00:00 [facility] 6+ MO Branch HPV9 2020-12-07 Completed University of 00:00:00 [facility] HPV9 2019-09-17 Completed University of 00:00:00 [facility] HPV9 2019-08-05 Completed University of 00:00:00 [facility] Influenza Virus 2019-08-05 [facility] .5 mL 00:00:00 [facility] IM 6+ MO Branch TDAP 2018-05-08 Completed [facility] 00:00:00 [facility] Vital Signs Vital Name Observation Time Observation Value Comments Source Systolic blood 2021-12-14 13:58:00 115 mm[Hg] Univer sity of pressure [facility] Diastolic blood 2021-12-14 13:58:00 65 mm[Hg] Unive rsity of [facility] Heart rate 2021-12-14 13:58:00 82 /min [facility] Body temperature 2021-12-14 13:58:00 36.5 [facility] Respiratory rate 2021-12-14 13:58:00 16 /min [facility] Body height 2021-12-14 13:58:00 170.2 cm [facility] Body weight 2021-12-14 13:58:00 74.39 kg [facility] BMI 2021-12-14 13:58:00 25.69 kg/m2 [facility] Procedures Procedure Date / Time Performed Performing Clinician Sourc e FLU VACC ([id number]), 2021-12-14 14:41:01 German Puckett versity of [place] 6+ MONTHS, IM, QUAD Medical Bran ch Encounters Start End Encounter Admission Attending Care Care Encounter Source Date/Time Date/Time Type Type Clinicians Facility Department ID 2021-12-14 2021-12-14 Outpatient KATINA ALEXANDRE [facility] [id number] Univers 08:45:00 10:01:04 [address] 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 2020-12-08 2020-12-08 Telephone Italo [facility] [id number] 00:00:00 00:00:00 German Griffith CLAIM APPROVER [id number] [employer] [id number] MATERNAL [id number] & CHILD [address] [place] [address] 2018-02-25 2018-02-25 Outpatient [facility] [id number] Common 08:45:00 08:45:00 [facility] [employer] [facility] Results This patient has no known results.
--- NOTE | 2022-02-13 23:19 | ER ---
Nurse's Notes [facility] Name: Mitra Melendez Age: 26 yrs Sex: Female : 1995 Arrival Date: 02/13/2022 Time: 21:04 Bed 9 Private MD: Diagnosis: Lower Lip Cyst Presentation: 02/13 21:06 Chief complaint: Patient states: I have a soar on my lip, I came about 2 weeks ago. It jb4 was lanced here, was given clindamycin. It is now back. Coronavirus screen: At this time, the client does not indicate any symptoms associated with coronavirus-19. Ebola Screen: No symptoms or risks identified at this time. Initial Sepsis Screen: Does the patient meet any 2 criteria? No. Patient's initial sepsis screen is negative. Does the patient have a suspected source of infection? No. Patient's initial sepsis screen is negative. Risk Assessment: Do you want to hurt yourself or someone else?. Onset of symptoms was February 13, 2022. Transition of care: patient was not received from another setting of care. 21:06 Method Of Arrival: Ambulatory jb4 21:06 Acuity: ELBERT 4 jb4 Historical: - Allergies: 21:08 No Known Allergies; jb4 - PMHx: 21:08 Substance Abuse; jb4 - PSHx: 21:08 anal fissure repair; jb4 - Immunization history:: Adult Immunizations up to date. - Social history:: Smoking status: Patient reports the use of cigarette tobacco products, smokes one pack cigarettes per day. Screenin:50 Abuse screen: Denies threats or abuse. Nutritional screening: No deficits noted. jb4 Tuberculosis screening: No symptoms or risk factors identified. Fall Risk None identified. Assessment: 21:49 General: Appears in no apparent distress. comfortable, Behavior is calm, cooperative, jb4 appropriate for age. Pain: Complains of pain in mouth Pain does not radiate. Pain currently is 4 out of 10 on a pain scale. Neuro: Level of Consciousness is awake, alert, obeys commands, Oriented to person, place, time, situation. Cardiovascular: Patient's skin is warm and dry. Respiratory: Airway is patent Respiratory effort is even, unlabored, Respiratory pattern is regular, symmetrical. Derm: Skin is intact, Skin is pink, warm \T\ dry. Musculoskeletal: Circulation, motion, and sensation intact. Range of motion: intact in all extremities. 23:48 Reassessment: Patient appears in no apparent distress at this time. Patient and/or jb4 family updated on plan of care and expected duration. Pain level reassessed. Patient is alert, oriented x 3, equal unlabored respirations, skin warm/dry/pink. Vital Signs: 21:06 BP 110 / 74; Pulse 104; Resp 16; Temp 98.7(O); Pulse Ox 99% on R/A; Weight 74.84 kg; jb4 Height 5 ft. 7 in. (170.18 cm) (R); Pain 8/10; 21:06 Body Mass Index 25.84 (74.84 kg, 170.18 cm) jb ED Course: 21:04 Patient arrived in ED. ja 21:08 Triage completed. jb4 21:08 Arm band placed on right wrist. [facility] 21:48 Jose Guadalupe Villatoro, RN is Primary Nurse. [facility] 21:49 [facility]icho Long PA [facility] 21:49 Jovanny Vaughn MD is Attending Physician. [facility] 21:50 Patient has correct armband on for positive identification. Bed in low position. Call jb light in reach. Side rails up X 1. 23:48 No provider procedures requiring assistance completed. Patient did not have IV access jb during this emergency room visit. Administered Medications: No medications were administered Medication: 23:48 VIS not applicable for this client. [facility] Outcome: 23:18 Discharge ordered by . [facility] 23:48 Discharged to home ambulatory. [facility] 23:48 Condition: stable 23:48 Discharge instructions given to patient, Instructed on discharge instructions, follow up and referral plans. Demonstrated understanding of instructions, follow-up care. 23:49 Patient left the ED. jb4 Addendum: 02/18/2022 07:30 Addendum: Culture Results: Positive wound culture. No further action required. Bacteria e b sensitive to prescribed antibiotic. Signatures: Guicho Long PA PA Jose Guadalupe Ulrich, RN RN jb4 Edith Kelley Jessica ja Corrections: (The following items were deleted from the chart) 02/13 21:09 21:06 Pulse 104bpm; Resp 16bpm; Pulse Ox 99% RA; Temp 98.7F Oral; 74.84 kg; Height 5 jb4 ft. 7 in. Reported; BMI: 25.8; Pain 8/10; jb4 21:09 21:08 PSHx: None; jb4 jb4
--- NOTE | 2022-02-13 23:19 | EDPHYS ---
Physician Documentation [facility] Name: Mitra Melendez Age: 26 yrs Sex: Female : 1995 Arrival Date: 02/13/2022 Time: 21:04 Bed 9 Private MD: ED Physician Jovanny Vaughn HPI: 02/13 23:12 This 26 yrs old Female presents to ER via Ambulatory with complaints of Sore on Lip. jmm 23:12 The patient presents with pain. Onset: The symptoms/episode began/occurred gradually, 1 jmm week(s) ago. Duration: The symptoms are continuous. Modifying factors: The symptoms are alleviated by nothing, the symptoms are aggravated by nothing. This is a 26 year old female with no chronic medical conditions that presents to the ED with complaints of swelling to her lower lip. Similar episode 1 week ago. Lesion was popped and patient was prescribed clindamycin. Denies fever. . Historical: - Allergies: 21:08 No Known Allergies; jb4 - PMHx: 21:08 Substance Abuse; jb4 - PSHx: 21:08 anal fissure repair; jb4 - Immunization history:: Adult Immunizations up to date. - Social history:: Smoking status: Patient reports the use of cigarette tobacco products, smokes one pack cigarettes per day. ROS: 23:12 Constitutional: Negative for fever, chills, and weight loss. jmm 23:12 Cardiovascular: Negative for chest pain, palpitations, and edema, Respiratory: Negative for shortness of breath, cough, wheezing, and pleuritic chest pain. 23:12 ENT: Positive for lip lesion. 23:12 All other systems are negative. Exam: 23:12 Constitutional: This is a well developed, well nourished patient who is awake, alert, jmm and in no acute distress. Head/Face: atraumatic. Eyes: EOMI, no conjunctival erythema appreciated 23:12 Neck: Trachea midline, Supple Chest/axilla: Normal chest wall appearance and motion. Cardiovascular: Regular rate and rhythm. No edema appreciated Respiratory: Normal respirations, no respiratory distress appreciated Abdomen/GI: Non distended, soft Back: Normal ROM Skin: General appearance color normal 23:12 ENT: cyst like lesion noted to the lower lip mucosa. 23:12 Musculoskeletal/extremity: ROM: intact in all extremities. 23:12 Skin: Appearance: Color: normal in color. 23:12 Neuro: Motor: is normal. 23:12 Psych: Behavior/mood is pleasant, cooperative. Vital Signs: 21:06 BP 110 / 74; Pulse 104; Resp 16; Temp 98.7(O); Pulse Ox 99% on R/A; Weight 74.84 kg; jb4 Height 5 ft. 7 in. (170.18 cm) (R); Pain 8/10; 21:06 Body Mass Index 25.84 (74.84 kg, 170.18 cm) jb4 Procedures: 23:15 Performed Cyst Aspiration . 18 gauge was used to aspirate approx .5 ml of yellow fluid. emerson MDM: 22:11 Patient medically screened. emerson 23:17 Data reviewed: vital signs, nurses notes. Counseling: I had a detailed discussion with eemrson the patient and/or guardian regarding: the historical points, exam findings, and any diagnostic results supporting the discharge/admit diagnosis, the need for outpatient follow up, to return to the emergency department if symptoms worsen or persist or if there are any questions or concerns that arise at home. 02/13 22:23 Order name: Wound Culture [facility] Administered Medications: No medications were administered Disposition: 02/14 06:36 Co-signature as Attending Physician, Jovanny Vaughn MD. [email or web address] Disposition Summary: 02/13/22 23:18 Discharge Ordered Location: Home [facility] Condition: Stable [facility] Diagnosis - Lower Lip Cyst [facility] Followup: [facility] - With: Private Physician - When: 2 - 3 days - Reason: Recheck today's complaints, Continuance of care, Re-evaluation by your physician Discharge Instructions: - Discharge Summary Sheet [facility] Forms: - Medication Reconciliation Form [facility] - Thank You Letter [facility] - Antibiotic Education [facility] - Prescription Opioid Use [facility] Prescriptions: - Peridex 0.12 % Mucous Membrane mouthwash - place 15 milliliter by MUCOUS MEMBRANE route 2 times per day after brushing max teeth, swish in mouth for 30 seconds then spit out; 1 bottle; Refills: 0, Product Selection Permitted - Augmentin 875-125 mg Oral Tablet - take 1 tablet by ORAL route every 12 hours for 10 days; 20 tablet; Refills: 0, [facility] Product Selection Permitted Signatures: Dispatcher [employer] Guicho Reeder PA PA jmm Bryson, James, RN RN jb4 Jovanny Vaughn MD MD [email or web address] Corrections: (The following items were deleted from the chart) 02/13 21:09 21:08 PSHx: None; jb4 jb4
[2022-02-14 00:19] VITALS: BP 110/74; TEMP 98.7; O2SAT 99
== END 2022-02-13 23:49 | disposition home or self-care (01) ==
LOC: ER 21:02
DX: K13.0 Diseases of lips (principal); F17.210 Nicotine dependence, cigarettes, uncomplicated
CPT/HCPCS: 87070; 87077; 87186; 87205; 99281

== ENCOUNTER 2022-07-15 13:10 | Emergency (ER) | payer SELFPAY ==
--- OUTSIDE RECORDS SUMMARY | 2022-07-15 13:14 | XMS REPORT | Continuity of Care Document ---
:1995 Author Organization [facility] t Address [facility] [place] [address] Care Team Providers Name Role Phone MAGALYS JACOBS Primary Care Physician Unavailable GERMAN BACK Attending Clinician Unavailable German Gil Attending Clinician Doctor Unassigned, [place] Attending Clinician Unavailable HEAVENLY CUELLAR Attending Clinician Unavailable Heavenly Sidhu Attending Clinician LORENZO CHEATHAM Attending Clinician Unavailable Magalys Henderson Attending Clinician [phone] [facility], [facility] Attending Clinician Unavailable Monica Sanchez MD Attending Clinician Payers Payer Name Policy Type Policy Number Effective Date Expiration Date S karisbam [facility] [id number] 2019 00:00:00 Problems Condition Condition Condition Status Onset Resolution Last Treating Co mments Source Name Details Category Date Date Treatment Clinician Date BMI BMI Disease Active Univers 25.0-25.9, 25.0-25.9, 4-07 it y of adult adult 00:00: [address] Nexplanon Nexplanon Disease Active Uni vers in place in place 12-07 ity of 00:00: [address] Flu Flu Disease Active Univers vaccine vaccine 12-07 ity of need need 00:00: [address] Internal Internal Disease Active Unive rs thrombosed thrombosed 02-08 [place] Chlamydia Chlamydia Disease Active 2018-09 Uni vers trachomati trachomati 2-02 it y of s s 00:00: [place] infection infection 00 Medi brisa of lower of lower Branch genitourin genitourin victorina sites victorina sites Encounter Encounter Disease Active 2017-09 Uni vers for for 10-04 ity of 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 [place] of 00 Medical implantabl implantabl Br anch e e subdermal subdermal contracept contracept giovanna giovanna Tobacco Tobacco Disease Active 2017-09 Univers use use 10-04 ity of disorder disorder 00:00: [place] 00 Medical Branch 23 weeks 23 weeks Diagnosis Active Com mon gestation gestation Spir it of of - [facility] Paronychia Paronychia Diagnosis Active Common of finger of finger Spir it of left of left - [facility] hand hand [facility] Allergies, Adverse Reactions, Alerts Allergy Allergy Status Severity Reaction(s) Onset Inactive Treating Comm ents Source Name Type Date Date Clinician NO KNOWN Drug Active Univers ALLERGIE Class ity of S [facility] Social History Social Habit Start Date Stop Date Quantity Comments Source History of 2007-10-04 Cigarette Smoker Universi ty of tobacco use 00:00:00 [facility] History SDOH University o f Alcohol Frequency [place] M edical Branch History SDOH University o f Alcohol Std [place] Medical Drinks Branch History SDWV University o f Alcohol Binge [place] Medic al Branch Exposure to Not sure University of SARS-CoV-2 [facility] (event) Branch Alcohol intake 2021-12-14 2021-12-14 Current drinker Unive rsity of 00:00:00 00:00:00 of alcohol [place] [facility] (finding) Branch Alcohol Comment 2020-12-07 2020-12-07 socially Universit y of 00:00:00 00:00:00 [facility] Sex Assigned At [birth year] Universit y of 00:00:00 00:00:00 [facility] Smoking Status Start Date Stop Date Source Current every day smoker 2020-12-07 00:00:00 Uni versity of [facility] Medications Ordered Filled Start Stop Current Ordering Indication Dosage Frequency Signature Comments Components Source Medication Medication Date Date Medication? Clinician (SIG) Name Name No known No Univers medications -07 ity of 09:03: [place] 50 Medical Branch Yes Florencio 1 tablet C ifeomaalfredo [facility] Immunizations Ordered Filled Immunization Date Status Comments Sourc e Immunization Name Name Influenza Virus 2021-12-14 Completed Universit y of Vaccine Quad .5 mL 00:00:00 [facility] IM 6+ MO Branch HPV9 2020-12-07 Completed University 00:00:00 [facility] HPV9 2019-09-17 Completed University 00:00:00 [facility] HPV9 2019-08-05 Completed University 00:00:00 [facility] Influenza Virus 2019-08-05 Completed Universit y of Vaccine Quad .5 mL 00:00:00 [facility] 6+ MO Branch TDAP 2018-05-08 Completed University 00:00:00 [facility] Vital Signs Vital Name Observation Time Observation Value Comments Source Systolic blood 2021-12-14 13:58:00 115 mm[Hg] Univer sity pressure [facility] Diastolic blood 2021-12-14 13:58:00 65 mm[Hg] [facility] 2021-12-14 13:58:00 82 /min [facility] Body temperature 2021-12-14 13:58:00 36.5 Mariella [facility] Respiratory rate 2021-12-14 13:58:00 16 /min [facility] Body height 2021-12-14 13:58:00 170.2 cm [facility] Body weight 2021-12-14 13:58:00 74.39 kg [facility] BMI 2021-12-14 13:58:00 25.69 kg/m2 [facility] Procedures Procedure Date / Time Performed Performing Clinician Souralexandra e FLU VACC ([id number]), 2021-12-14 14:41:01 German Back versity of [place] 6+ MONTHS, IM, QUAD Medical Bran ch Encounters Start End Encounter Admission Attending Care Care Encounter Source Date/Time Date/Time Type Type Clinicians Facility Department ID 2021-07-06 Emergency [facility] [id number] Univers 18:46:07 ity of [facility] 2021-12-14 2021-12-14 [facility] [id number] Univers 08:45:00 10:01:04 GERMAN villatoro o yoshi [facility] 2021-12-14 2021-12-14 [facility] [id number] Univers 08:45:00 10:01:04 Visit German Nacho LEAD CUSTOMER SERVICE REPRESENTATIVE [id number] ity of [facility] [id number] [place] as MATERNAL [id number] [facility] [address] [place] [address] 2021-12-14 2021-12-14 [facility]patient [facility] [id number] Univers 08:45:00 10:01:04 GERMAN [facility] 2021-12-14 2021-12-14 Orders Doctor SOTO [id number] Univers 00:00:00 00:00:00 Only Unassigned, FRANCO [id number] ity of [place] [id number] [place] as [phone] [address] 2021-12-12 2021-12-12 Outpatient Nacho BACK [facility] [id number] Univers 09:30:00 09:30:00 GERMAN villatoro o yoshi [facility] 2021-12-12 2021-12-12 Outpatient Nacho BACK [facility] [id number] Univers 09:30:00 09:30:00 GERMAN villatoro o yoshi [facility] 2021-12-12 2021-12-12 [facility] [id number] Univers 09:30:00 09:30:00 GERMAN villatoro o yoshi [facility] 2021-08-08 2021-08-08 Outpatient Nacho CUELLAR [facility] [id number] Univers 09:30:00 09:30:00 HEAVENLY butch [facility] 2021-08-07 2021-08-07 [facility] [id number] Univers 14:30:00 15:15:07 HEAVENLY villatoro [facility] 2021-08-07 2021-08-07 Office [facility] [id number] Univers 14:21:07 15:15:07 Visit Heavenly Stella LEAD CUSTOMER SERVICE REPRESENTATIVE [id number] it y of [facility] [id number] [place] as MATERNAL [phone] [facility] ical & CHILD [address] [place] [address] 2021-08-07 2021-08-07 Orders Doctor CHARLES [id number] Univers 00:00:00 00:00:00 Only Unassigned, FRANCO [id number] ity of [facility] [id number] [place] as [phone] [address] 2021-07-20 2021-07-20 Outpatient R LINDEN [facility] [id number] Univers 09:30:00 09:30:00 LORENZO ity o f [facility] 2021-07-14 2021-07-14 Telephone [facility] [id number] Univers 00:00:00 00:00:00 Magalys Monique LEAD CUSTOMER SERVICE REPRESENTATIVE [id number] ity of [facility] [id number] [place] MATERNAL [phone] [facility] & CHILD [address] [place] [address] 2020-12-08 2020-12-08 Telephone [facility] [id number] [facility] 00:00:00 00:00:00 German Griffith LEAD CUSTOMER SERVICE REPRESENTATIVE [id number] ity of [facility] [id number] [place] MATERNAL [phone] [facility] & CHILD [address] [place] [address] 2020-12-08 2020-12-08 Telephone [facility] [id number] 00:00:00 00:00:00 Sheryla R LEAD CUSTOMER SERVICE REPRESENTATIVE [id number] [facility] [id number] MATERNAL [phone] & [address] 2020-12-07 2020-12-07 Office [facility] [id number] Univers 09:16:24 10:08:04 Visit German Griffith LEAD CUSTOMER SERVICE REPRESENTATIVE [id number] ity of [facility] [id number] [place] MATERNAL [phone] Med ical & CHILD [address] [place] [address] 2020-12-07 2020-12-07 Outpatient R WONG [facility] [id number] Univers 09:00:00 09:00:00 ROSPERRYNDA ity o f [facility] 2020-12-07 2020-12-07 Orders Doctor CHARLES [id number] Univers 00:00:00 00:00:00 Only Unassigned, FRANCO [id number] ity of [facility] [id number] [place] as [id number] [address] 2020-05-02 2020-05-02 Telephone Wong [facility] [id number] Univers 00:00:00 00:00:00 German R LEAD CUSTOMER SERVICE REPRESENTATIVE [id number] ity of [facility] [id number] [place] MATERNAL [phone] Med ical & CHILD [address] [place] [address] 2020-02-12 2020-02-12 Nurse Visit, [facility] Nurse [facility] 1.2 .840.114 [id number] Univers 12:56:01 13:27:54 Visit German Back LEAD CUSTOMER SERVICE REPRESENTATIVE [id number] ity of [place] [id number] [place] MATERNAL [phone] [facility] ical & CHILD [address] [place] [address] 2020-02-12 2020-02-12 Outpatient R WONG PRANDREI [facility] [id number] Univers 13:00:00 13:00:00 JANETHNDA ity o f [facility] 2020-02-11 2020-02-11 Telephone Wong PRANDREI [id number] Univers 00:00:00 00:00:00 German Griffith LEAD CUSTOMER SERVICE REPRESENTATIVE [id number] ity of [facility] [id number] [place] MATERNAL [phone] [facility] ical & CHILD [address] [place] [address] 2020-02-11 2020-02-11 Telephone Krystal [facility] [id number] Univers 00:00:00 00:00:00 Magalys Monique LEAD CUSTOMER SERVICE REPRESENTATIVE [id number] ity of [facility] [id number] [place] MATERNAL [phone] [facility] [address] [place] [address] 2020-02-09 2020-02-09 [facility] [id number] Univers 14:00:00 14:00:00 ROSHUNDA ity o f [facility] 2020-02-03 2020-02-03 Outpatient R [facility] [id number] Univers 13:00:00 13:00:00 ity of [facility] 2019-12-31 2019-12-31 Emergency [facility] [id number] Univers 00:39:27 01:01:00 Brendaramin Justyn [place] [id number] ity of [id number] [phone] [address] 2019-10-19 2019-10-19 [facility] [id number] Univers 00:00:00 00:00:00 Rosbrenda Griffith LEAD CUSTOMER SERVICE REPRESENTATIVE [id number] ity of [facility] [id number] [place] MATERNAL [phone] [facility] & CHILD [address] [place] [address] 2019-10-16 2019-10-16 [facility] [id number] Univers 12:48:54 14:02:54 Visit German Griffith LEAD CUSTOMER SERVICE REPRESENTATIVE [id number] ity of [facility] [id number] [place] MATERNAL [phone] [facility] & CHILD [address] [place] [address] 2018-02-25 2018-02-25 Outpatient [id number] Common 08:45:00 08:45:00 Rebtel [facility] Results This patient has no known results.
[2022-07-15] MEDS ORDERED: BUPIVACAINE 0.5% PF 10 ML VIAL ONE (13:55)
[2022-07-15] MEDS ORDERED: LIDOCAINE 1% MPF 30 ML VIAL ONE (13:55)
--- NOTE | 2022-07-15 15:56 | ER ---
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 Coronavirus screen: At this time, the client does not indicate any symptoms associated with coronavirus-19. Ebola Screen: No symptoms or risks identified at this time. Risk Assessment: Do you want to hurt yourself or someone else? Patient reports no desire to harm self or others. Onset of symptoms was July 09, 2022. 13:19 Method Of Arrival: Ambulatory hb 13:19 Acuity: ELBERT 4 hb 16:54 Initial Sepsis Screen: Does the patient meet any 2 criteria? No. Patient's initial eh3 sepsis screen is negative. Does the patient have a suspected source of infection? No. Patient's initial sepsis screen is negative. Triage Assessment: 13:21 General: Appears in no apparent distress. Behavior is calm, cooperative. Neuro: Level hb of Consciousness is awake, alert, obeys commands, Oriented to person, place, time, situation. Cardiovascular: Patient's skin is warm and dry. Respiratory: Respiratory effort is even, unlabored, Respiratory pattern is regular, symmetrical. Historical: - Allergies: 13:20 No Known Drug Allergies; hb - PMHx: 13:20 Substance Abuse; hb - PSHx: 13:20 anal fissure repair; hb - Immunization history:: Adult Immunizations up to date. - Social history:: Smoking status: Patient reports the use of cigarette tobacco products, smokes one pack cigarettes per day. Screenin:49 Abuse screen: Denies threats or abuse. Denies injuries from another. Nutritional eh3 screening: No deficits noted. Tuberculosis screening: No symptoms or risk factors identified. Fall Risk None identified. Assessment: 13:49 General: Appears in no apparent distress. comfortable, Behavior is calm, cooperative, eh3 appropriate for age. Pain: Complains of pain in groin Pain does not radiate. Pain currently is 7 out of 10 on a pain scale. Quality of pain is described as burning, pressure, tender. Neuro: Level of Consciousness is awake, alert, obeys commands, Oriented to person, place, time, situation. Cardiovascular: Capillary refill < 3 seconds Patient's skin is warm and dry. Respiratory: Airway is patent Respiratory effort is even, unlabored, Respiratory pattern is regular, symmetrical. GI: Abdomen is flat, non-distended. : cyst on inner R labia, abscess on L groin Reports pain. EENT: No signs and/or symptoms were reported regarding the EENT system. Derm: Abscess. Musculoskeletal: No signs and/or symptoms reported regarding the musculoskeletal system. 15:00 Reassessment: Patient and/or family updated on plan of care and expected duration. Pain eh3 level reassessed. Patient is alert, oriented x 3, equal unlabored respirations, skin warm/dry/pink. 16:00 Reassessment: Patient and/or family updated on plan of care and expected duration. Pain eh3 level reassessed. Patient is alert, oriented x 3, equal unlabored respirations, skin warm/dry/pink. Vital Signs: 13:19 BP 127 / 85; Pulse 102; Resp 16; Temp 98; Pulse Ox 99% on R/A; Weight 74.84 kg; Height hb 5 ft. 7 in. (170.18 cm); Pain 6/10; 13:49 BP 134 / 83; Pulse 88; Resp 18; Temp 98.5(O); Pulse Ox 96% on R/A; eh3 15:00 BP 128 / 82; Pulse 85; Resp 16; Pulse Ox 98% on R/A; eh3 16:00 BP 132 / 82; Pulse 86; Resp 16; Pulse Ox 98% on R/A; eh3 13:19 Body Mass Index 25.84 (74.84 kg, 170.18 cm) hb ED Course: 13:12 Patient arrived in ED. rg4 13:16 Chico Crabtree PA is PHCP. cp 13:16 Cory Christianson DO is Attending Physician. cp 13:20 Triage completed. hb 13:21 Arm band placed on. hb 13:26 Rachel Ibarra, RN is Primary Nurse. eh3 13:49 Patient has correct armband on for positive identification. Placed in gown. Bed in low eh3 position. Call light in reach. Side rails up X2. Pulse ox on. NIBP on. Door closed. Noise minimized. Warm blanket given. 15:30 Assist provider with I \T\ D: of an abscess on left perineal Set up I\T\D tray. Performed eh 3 by Chico KHAN Wound packed. iodoform gauze, Dressing with tape nonstick dressing Patient tolerated well. 16:45 GC (GONORR/CHLAMYDIA) Probe Sent. eh3 16:45 Wet Prep Sent. eh3 16:53 Patient did not have IV access during this emergency room visit. eh3 Administered Medications: 13:58 Drug: Lidocaine (1 %) 10 ml {Note: administered by PA. Keke} Volume: 20 ml; eh3 Route: Infiltration; 13:58 Drug: Marcaine (bupivacaine) (0.5 %) 10 ml {Note: administered by PA. Keke} eh3 Volume: 10 ml; Route: Infiltration; 16:28 Drug: Rocephin (cefTRIAXone) 250 mg Route: IM; Site: right deltoid; eh3 16:44 Follow up: Response: No adverse reaction eh3 16:28 Drug: Zithromax (azithromycin) 1 grams Route: PO; eh3 16:44 Follow up: Response: No adverse reaction eh3 Medication: 16:54 VIS not applicable for this client. eh3 Outcome: 15:55 Discharge ordered by MD. starr 16:51 Patient left the ED. eh3 16:54 Discharged to home ambulatory. eh3 16:54 Condition: stable 16:54 Discharge instructions given to patient, Instructed on discharge instructions, follow up and referral plans. medication usage, safe sex practices, wound care, Demonstrated understanding of instructions, follow-up care, medications, wound care, Prescriptions given X 4. Signatures: Chico Crabtree PA PA cp Baxter, Heather, RN RN Sherry Garduno 4 Rachel Ibarra RN RN eh3 Corrections: (The following items were deleted from the chart) 21:09 16:53 Assist provider with I \T\ D: of an abscess on left perineal Set up I\T\D tray. eh 3 Performed by Chico KHAN Wound packed. iodoform gauze, Dressing with tape nonstick dressing Patient tolerated well. eh3 21:09 16:30 Assist provider with I \T\ D: of an abscess on left perineal Set up I\T\D tray. eh 3 Performed by Chico KHAN Wound packed. iodoform gauze, Dressing with tape nonstick dressing Patient tolerated well. eh3 21:10 16:00 Assist provider with I \T\ D: of an abscess on left perineal Set up I\T\D tray. eh 3 Performed by Ch[place] KHAN Wound packed. iodoform gauze, Dressing with tape nonstick dressing Patient tolerated well. eh3
--- NOTE | 2022-07-15 15:56 | EDPHYS ---
Physician Documentation [facility] Name: Mitra Melendez Age: 26 yrs Sex: Female : 1995 Arrival Date: 07/15/2022 Time: 13:12 Bed 27 Private MD: ED Physician Cory Christianson HPI: 07/15 14:00 This 26 yrs old Female presents to ER via Ambulatory with complaints of Abscess. cp 14:00 The patient presents with genitalia rash and abscess to left perineum. cp 14:00 Onset: The symptoms/episode began/occurred patient reports noticing rash 2 days ago and cp abscess times 1 week. Associated signs and symptoms: Pertinent negatives: constipation, diarrhea, dysuria, fever, vaginal bleeding, abdominal pain. Severity of symptoms: in the emergency department the symptoms are unchanged, despite home interventions. The patient is sexually active, reportedly has a single partner, does not use protection during intercourse. The patient's method of control includes nothing. Historical: - Allergies: 13:20 No Known Drug Allergies; hb - PMHx: 13:20 Substance Abuse; hb - PSHx: 13:20 anal fissure repair; hb - Immunization history:: Adult Immunizations up to date. - Social history:: Smoking status: Patient reports the use of cigarette tobacco products, smokes one pack cigarettes per day. ROS: 14:05 Constitutional: Negative for body aches, chills, fever, poor PO intake. cp 14:05 Respiratory: Negative for cough, shortness of breath, wheezing. 14:05 Abdomen/GI: Negative for abdominal pain, nausea, vomiting, and diarrhea. 14:05 : Positive for of the genitalia rash and abscess to left perineum, Negative for urinary symptoms, vaginal bleeding. 14:05 Neuro: Negative for altered mental status, headache, weakness. 14:05 All other systems are negative. Exam: 14:10 Constitutional: The patient appears in no acute distress, alert, awake, comfortable, cp non-toxic, well developed, well nourished. 14:10 Head/Face: Normocephalic, atraumatic. cp 14:10 Chest/axilla: Inspection: normal. 14:10 Cardiovascular: Rate: normal. 14:10 Respiratory: the patient does not display signs of respiratory distress, Respirations: normal, no use of accessory muscles, no retractions. 14:10 Abdomen/GI: Inspection: abdomen appears normal, Palpation: abdomen is soft and non-tender, in all quadrants. 14:10 : Pelvic Exam: External exam: small dime size area of erythema with group vesicular lesions noted mid right inner labia majora, Speculum exam: no bleeding is noted, no cervicitis, os that is closed, bimanual exam reveals no cervical motion tenderness, discharge, malodorous, white, the nurse was present for the exam, small abscess with mild erythema noted to left lower perineum, Sexual behavior: the patient is sexually active, and reports a single partner, method of control is none. Vital Signs: 13:19 BP 127 / 85; Pulse 102; Resp 16; Temp 98; Pulse Ox 99% on R/A; Weight 74.84 kg; Height hb 5 ft. 7 in. (170.18 cm); Pain 6/10; 13:49 BP 134 / 83; Pulse 88; Resp 18; Temp 98.5(O); Pulse Ox 96% on R/A; eh3 15:00 BP 128 / 82; Pulse 85; Resp 16; Pulse Ox 98% on R/A; eh3 16:00 BP 132 / 82; Pulse 86; Resp 16; Pulse Ox 98% on R/A; eh3 13:19 Body Mass Index 25.84 (74.84 kg, 170.18 cm) hb Procedures: 16:00 I \T\ D: Incision and drainage was performed for an abscess of the left lower perineum cp Prepped with Betadine, Anesthetized with 4 ccs of 1% lidocaine w/o epi and 0.5% marcaine. Incised with #11 blade. Drained small amount purulent fluid. Packed with iodoform gauze, Dressing: sterile 4x4 gauze, the patient tolerated the procedure well. MDM: 13:25 Patient medically screened. cp 15:55 Data reviewed: vital signs, nurses notes, lab test result(s). cp 15:55 Differential diagnosis: pelvic inflammatory disease, urinary tract infection, cp vaginosis, std. Counseling: I had a detailed discussion with the patient and/or guardian regarding: the historical points, exam findings, and any diagnostic results supporting the discharge/admit diagnosis, lab results, the need for outpatient follow up, an OB/Gyne specialist, to return to the emergency department if symptoms worsen or persist or if there are any questions or concerns that arise at home. 07/15 15:49 Order name: Wet Prep; Complete Time: 16:20 cp 07/15 15:49 Order name: GC (GONORR/CHLAMYDIA) Probe cp 07/15 13:36 Order name: Pelvic Exam Setup; Complete Time: 14:01 cp 07/15 13:36 Order name: I\T\D Setup; Complete Time: 14:01 cp 07/15 15:14 Order name: Wound dressing; Complete Time: 15:26 cp Administered Medications: 13:58 Drug: Lidocaine (1 %) 10 ml {Note: administered by PA. Keke} Volume: 20 ml; eh3 Route: Infiltration; 13:58 Drug: Marcaine (bupivacaine) (0.5 %) 10 ml {Note: administered by PA. Keke} eh3 Volume: 10 ml; Route: Infiltration; 16:28 Drug: Rocephin (cefTRIAXone) 250 mg Route: IM; Site: right deltoid; eh3 16:44 Follow up: Response: No adverse reaction eh3 16:28 Drug: Zithromax (azithromycin) 1 grams Route: PO; eh3 16:44 Follow up: Response: No adverse reaction eh3 Disposition: 16:56 Co-signature as Attending Physician, Cory ZAVALA was immediately available onsite ms3 in the emergency department for consultation in the care of the patient. 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 cp Followup: cp - With: Private Physician - When: 48 Hours - Reason: Recheck today's complaints Discharge Instructions: - Discharge Summary Sheet cp - Skin Abscess cp - Genital Herpes cp - Incision and Drainage, Care After cp Forms: - Medication Reconciliation Form cp - Thank You Letter cp - Antibiotic Education cp - Prescription Opioid Use cp Prescriptions: - Acyclovir 200 mg Oral Capsule - take 1 capsule by ORAL route 5 times per day; 50 capsule; Refills: 0, Product cp Selection Permitted - Ibuprofen 800 mg Oral Tablet - take 1 tablet by ORAL route every 8 hours As needed take with food; 30 tablet; cp Refills: 0, Product Selection Permitted - Doxycycline Hyclate 100 mg Oral Tablet - take 1 tablet by ORAL route every 12 hours; 20 tablet; Refills: 0, Product cp Selection Permitted - Metronidazole 500 mg Oral Tablet - take 1 tablet by ORAL route every 8 hours; 30 tablet; Refills: 0, Product cp Selection Permitted Signatures: Dispatcher [employer] EDMS Chico Crabtree PA PA cp Baxter, Heather, RN RN Cory Christianson, DO ms3 Rachel Ibarra RN RN eh3 Corrections: (The following items were deleted from the chart) 07/16 16:10 16:04 : Positive for of the genitalia rash and abscess to left perineum, Negative for cp urinary symptoms, vaginal bleeding, cp 16:10 16:04 Constitutional: Negative for body aches, chills, fever, poor PO intake, cp cp 16:10 16:04 Respiratory: Negative for cough, shortness of breath, wheezing, cp cp 16:10 16:04 Abdomen/GI: Negative for abdominal pain, nausea, vomiting, and diarrhea, cp cp 16:10 16:04 Neuro: Negative for altered mental status, headache, weakness, cp cp 16:10 16:04 All other systems are negative, cp cp
[2022-07-15] MEDS ORDERED: CEFTRIAXONE 250 MG/VIAL ONE (16:31)
[2022-07-15] MEDS ORDERED: AZITHROMYCIN 1 GM PACKET ONE (16:31)
[2022-07-15 17:04] VITALS: BP 134/83; TEMP 98.5; O2SAT 96
[2022-07-18 11:54] LABS: C.trachomatis RNA,TMA Not Detected (Not Detected)
== END 2022-07-15 16:51 | disposition home or self-care (01) ==
LOC: ER 13:10
PROC: 0W9N0ZZ Drainage of Female Perineum, Open Approach (ICD-10-PCS; principal; 2022-07-15)
DX: L02.215 Cutaneous abscess of perineum (principal); A60.09 Herpesviral infection of other urogenital tract
CPT/HCPCS: 87210; 87490; 87590; 96372; 99284; J0696

== ENCOUNTER 2022-07-16 11:55 | Emergency (ER) | payer SELFPAY ==
--- OUTSIDE RECORDS SUMMARY | 2022-07-16 11:58 | XMS REPORT | Continuity of Care Document ---
:1995 Author Organization [facility] t Address [address] [place] [address] Care Team Providers Name Role Phone MAGALYS JACOBS Primary Care Physician Unavailable MAGALYS JACOBS Attending Clinician Unavailable GERMAN BACK Attending Clinician Unavailable German Gil Attending Clinician Doctor Unassigned, [place] Attending Clinician Unavailable HEAVENLY CUELLAR Attending Clinician Unavailable Heavenly Sidhu Attending Clinician LORENZO CHEATHAM Attending Clinician Unavailable Magalys Henderson Attending Clinician [phone] [facility] Unavailable Monica Sanchez MD Attending Clinician Payers Payer Name Policy Type Policy Number Effective Date Expiration Date Justyn moctezuma [facility] [id number] 2019 00:00:00 Problems Condition Condition Condition Status Onset Resolution Last Treating Co mments Source Name Details Category Date Date Treatment Clinician Date BMI BMI Disease Active Univers 25.0-25.9, 25.0-25.9, 4-07 it y of adult adult 00:00: [address] Nexplanon Nexplanon Disease Active Uni vers in place in place 3 ity of 00:00: [address] Flu Flu Disease Active Univers vaccine vaccine 3 ity of need need 00:00: [address] Internal Internal Disease Active Unive rs thrombosed thrombosed 02-08 [place] Chlamydia Chlamydia Disease Active 2018-09 Uni vers trachomati trachomati 2- it y of s s 00:00: [place] [...] use 10-04 ity of disorder disorder 00:00: [place] 00 Medical Branch 23 weeks 23 weeks Diagnosis Active Com mon gestation gestation Spir it of of - [facility] Paronychia Paronychia Diagnosis Active Common of finger of finger Spir it of left of left - [facility] hand hand [facility] Allergies, Adverse Reactions, Alerts Allergy Allergy Status Severity Reaction(s) Onset Inactive Treating Comm ents Source Name Type Date Date Clinician NO KNOWN Drug Active Univers ALLERGIE Class ity of S [facility] Social History Social Habit Start Date Stop Date Quantity Comments Source History of 2007-10-04 Cigarette Smoker Universi ty of tobacco use 00:00:00 [place] [facility] [place] History SDOH University o f Alcohol Frequency [facility] edical Branch History SDOH University o f Alcohol Std [place] [facility] Drinks Branch History [facility] University o f Alcohol Binge [place] Medic al Branch Exposure to Not sure University of SARS-CoV-2 [facility] (event) Branch Alcohol intake 2021-12-14 2021-12-14 Current drinker Unive rsity of 00:00:00 00:00:00 of alcohol [facility] (finding) Branch Alcohol Comment 2020-12-07 2020-12-07 socially Universit y of 00:00:00 00:00:00 [facility] Sex Ass[birth year] Universit y of 00:00:00 00:00:00 [facility] Smoking Status Start Date Stop Date Source Current every day smoker 2020-12-07 00:00:00 Uni versity of [facility] Medications Ordered Filled Start Stop Current Ordering Indication Dosage Frequency Signature Comments Components Source Medication Medication Date Date Medication? Clinician (SIG) Name Name No known No Univers medications 4-07 ity of 09:03: [place] 50 [facility] Branch Yes Florencio 1 tablet C samra [facility] Immunizations Ordered Filled Immunization Date Status Comments Sourc e Immunization Name Name Influenza Virus 2021-12-14 Completed Universit y of Vaccine Quad .5 mL 00:00:00 [facility] IM 6+ [place] Branch HPV9 2020-12-07 Completed University 00:00:00 [facility] HPV9 2019-09-17 Completed University of 00:00:00 [facility] HPV9 2019-08-05 Completed University of 00:00:00 [facility] Influenza Virus 2019-08-05 Completed Universit y of Vaccine Quad .5 mL 00:00:00 [facility] 6+ [place] Branch TDAP 2018-05-08 Completed University 00:00:00 [facility] Vital Signs Vital Name Observation Time Observation Value Comments Source Systolic blood 2021-12-14 13:58:00 115 mm[Hg] Univer sity of pressure [facility] Diastolic blood 2021-12-14 13:58:00 65 mm[Hg] Unive rsity [facility] Heart rate 2021-12-14 13:58:00 82 /min [facility] Body temperature 2021-12-14 13:58:00 36.5 [facility]ella [facility] Respiratory rate 2021-12-14 13:58:00 16 /min [facility] Body height 2021-12-14 13:58:00 170.2 cm [facility] Body weight 2021-12-14 13:58:00 74.39 kg [facility] BMI 2021-12-14 13:58:00 25.69 kg/m2 [facility] Procedures Procedure Date / Time Performed Performing Clinician Jessica e FLU VACC ([id number]), 2021-12-14 14:41:01 German Back Uni versity of [place] 6+ MONTHS, IM, QUAD Medical Bran ch Encounters Start End Encounter Admission Attending Care Care Encounter Source Date/Time Date/Time Type Type Clinicians Facility Department ID 2021-07-06 Emergency [facility] [id number] Univers 18:46:07 ity [facility] 2021-12-14 2021-12-14 Outpatient Nacho BACK [facility] [id number] Univers 08:45:00 10:01:04 GERMAN [facility] 2021-12-14 2021-12-14 [facility] [id number] Univers 08:45:00 10:01:04 Visit Lizbetyazmin Griffith LABORATORY TECH [id number] ity [facility] [id number] [place] as MATERNAL [phone] [facility] ical & CHILD [address] [place] [address] 2021-12-14 2021-12-14 [facility] [id number] Univers 08:45:00 10:01:04 GERMAN [facility] 2021-12-14 2021-12-14 Orders Doctor CHARLES [id number] Univers 00:00:00 00:00:00 Only Unassigned, FRANCO [id number] ity of [place] [id number] [place] as [phone] [address] 2021-12-12 2021-12-12 Outpatient Nacho BACK [facility] [id number] Univers 09:30:00 09:30:00 GERMAN [facility] 2021-12-12 2021-12-12 Outpatient Nacho BACK [facility] [id number] Univers 09:30:00 09:30:00 JANETHSHERWINGeorgina wolfbutch o [facility] 2021-12-12 2021-12-12 Outpatient Nacho BACK [facility] [id number] Univers 09:30:00 09:30:00 GERMAN [facility] 2021-08-08 2021-08-08 Outpatient Nacho CUELLAR [facility] [id number] Univers 09:30:00 09:30:00 HEAVENLY [facility] 2021-08-07 2021-08-07 Outpatient Nacho CUELLAR [facility] [id number] Univers 14:30:00 15:15:07 HEAVENLY [facility] 2021-08-072021-08-07 [facility] [id number] Univers 14:21:07 15:15:07 Visit Heavenly Douglas LABORATORY TECH [id number] [facility] [id number] [place] MATERNAL [phone] [facility] ical & CHILD [address] [place] [address] 2021-08-07 2021-08-07 Orders Doctor CHARLES [id number] Univers 00:00:00 00:00:00 Only Unassigned, FRANCO [id number] ity of [place] [facility] [id number] [place] as [phone] [address] 2021-07-20 2021-07-20 Outpatient R LINDEN [facility] [id number] Univers 09:30:00 09:30:00 LORENZO bloomy o f [facility] 2021-07-14 2021-07-14 [facility] [id number] Univers 00:00:00 00:00:00 Magalys Monique LABORATORY TECH [id number] [facility] [id number] [place] MATERNAL [phone] [facility] & CHILD [address] [place] [address] 2020-12-08 2020-12-08 [facility] [id number] Univers 00:00:00 00:00:00 German Griffith LABORATORY TECH [id number] [facility] [id number] [place] MATERNAL [phone] [facility] & CHILD [address] [place] [address] 2020-12-08 2020-12-08 [facility] [id number] 00:00:00 00:00:00 German R LABORATORY TECH [id number] [facility] [id number] MATERNAL [phone] & CHILD [address] [place] [address] 2020-12-07 2020-12-07 [facility] [id number] Univers 09:16:24 10:08:04 Visit Janethyazmin Griffith LABORATORY TECH [id number] ity of REGIONAL [id number] [place] as MATERNAL [id number] [facility] ical & CHILD [address] [place] [address] 2020-12-07 2020-12-07 [facility] [id number] Univers 09:00:00 09:00:00 JANETHNDA ity o f [facility] 2020-12-07 2020-12-07 Orders Doctor CHARLES [id number] Univers 00:00:00 00:00:00 Only Unassigned, FRANCO [id number] ity of [place] [facility] [id number] [place] as [id number] [address] 2020-05-02 2020-05-02 Telephone [facility] [id number] Univers 00:00:00 00:00:00 Janethnda R LABORATORY TECH [id number] [facility] [id number] [place] MATERNAL [id number] [facility] ical & CHILD [address] [place] [address] 2020-02-12 2020-02-12 Nurse Visit, [facility] Nurse [facility] 1.2 [id number] Univers 12:56:01 13:27:54 Visit Lizbet Backbrenda Griffith LABORATORY TECH [id number] [facility] [id number] [place] MATERNAL [phone] [facility] ical & CHILD [address] [place] [address] 2020-02-12 2020-02-12 [facility] [id number] Univers 13:00:00 13:00:00 JANETHNDA itbutch o f [facility] 2020-02-11 2020-02-11 Telephone [facility] [id number] Univers 00:00:00 00:00:00 Sherylgeorgina R LABORATORY TECH [id number] [facility] [id number] [place] MATERNAL [phone] [facility] ical & CHILD [address] [place] [address] 2020-02-11 2020-02-11 Telephone Krystal [facility] [id number] Univers 00:00:00 00:00:00 Magalys Monique LABORATORY TECH [id number] [facility] [id number] [place] MATERNAL [phone] [facility] & [facility]ILD [address] [place] [address] 2020-02-09 2020-02-09 [facility] [id number] Univers 14:00:00 14:00:00 ROSHUNDA ity o f [facility] 2020-02-03 2020-02-03 Outpatient R [facility] [id number] Univers 13:00:00 13:00:00 ity of [facility] 2019-12-31 2019-12-31 Emergency Laura [facility] [id number] Univers 00:39:27 01:01:00 Monica Justyn [place] [id number] ity of [place] [id number] [place] [facility] [id number] [address] 2019-10-19 2019-10-19 Telephone Wong [facility] [id number] Univers 00:00:00 00:00:00 German Griffith LABORATORY TECH [id number] [facility] [id number] [place] MATERNAL [phone] [facility] & CHILD [address] [place] [address] 2019-10-16 2019-10-16 Office Wong [facility] [id number] Univers 12:48:54 14:02:54 Visit German Griffith LABORATORY TECH [id number] [facility] [id number] [place] MATERNAL [id number] [facility] & CHILD [address] [place] [address] 2018-02-25 2018-02-25 Outpatient Brazosiris Mathewt 14 [id number] Common 08:45:00 08:45:00 t [facility] it [facility] Results This patient has no known results.
--- NOTE | 2022-07-16 12:24 | ER ---
Nurse's Notes [facility] Name: Mitra Melendez Age: 26 yrs Sex: Female : 1995 Arrival Date: 07/16/2022 Time: 11:57 Bed 15 Private MD: Diagnosis: Abscess Presentation: 07/16 12:03 Chief complaint: Patient states: Pt reports being at this ER yesterday - had abscess ld1 packed under buttocks. Pt reports having vaginal abscess - was told it was herpes. Pt seeking second opinion - concerned it is not herpes. Coronavirus screen: At this time, the client does not indicate any symptoms associated with coronavirus-19. Ebola Screen: No symptoms or risks identified at this time. Initial Sepsis Screen: Does the patient meet any 2 criteria? No. Patient's initial sepsis screen is negative. Does the patient have a suspected source of infection? No. Patient's initial sepsis screen is negative. Risk Assessment: Do you want to hurt yourself or someone else? Patient reports no desire to harm self or others. Onset of symptoms was July 16, 2022. 12:03 Method Of Arrival: Ambulatory ld1 12:03 Acuity: ELBERT 4 ld1 Triage Assessment: 12:05 General: Appears in no apparent distress. comfortable, Behavior is calm, cooperative, ld1 appropriate for age. Pain: Denies pain. EENT: No signs and/or symptoms were reported regarding the EENT system. Neuro: Level of Consciousness is awake, alert, obeys commands, Oriented to person, place, time, situation, Appropriate for age. Cardiovascular: Capillary refill < 3 seconds Patient's skin is warm and dry. Respiratory: Airway is patent Respiratory effort is even, unlabored. GI: Abdomen is flat, non-distended. : No signs and/or symptoms were reported regarding the genitourinary system. Derm: No signs and/or symptoms reported regarding the dermatologic system. Musculoskeletal: No signs and/or symptoms reported regarding the musculoskeletal system. 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 - Social history:: Smoking status: Patient reports the use of cigarette tobacco products, smokes one pack cigarettes per day. Patient/guardian denies using alcohol. Screenin:09 Abuse screen: Denies threats or abuse. Nutritional screening: No deficits noted. ll1 Tuberculosis screening: No symptoms or risk factors identified. Fall Risk Total Bains Fall Scale indicates No Risk (0-24 pts). Assessment: 12:22 Reassessment: No changes from previously documented assessment. Miguel CLEMENT at 1 bedside. 12:32 Reassessment: No changes from previously documented assessment. Patient and/or family ll1 updated on plan of care and expected duration. Pain level reassessed. Vital Signs: 12:03 BP 121 / 91; Pulse 113; Resp 18; Temp 98.6(TE); Pulse Ox 98% on R/A; Weight 74.84 kg; ld1 Height 5 ft. 4 in. (162.56 cm); Pain 0/10; 12:03 Body Mass Index 28.32 (74.84 kg, 162.56 cm) 1 ED Course: 11:57 Patient arrived in ED. mr 12:05 Triage completed. ld1 12:05 Arm band placed on right wrist. ld1 12:07 [facility] Lunsford [facility] 7 12:07 Jhon Benjamin MD is Attending Physician. 7 12:09 Ismael Hubbard, DANI is Primary Nurse. ll1 12:09 Patient placed in an exam room, on a stretcher. ll1 12:32 Patient has correct armband on for positive identification. Bed in low position. Call ll1 light in reach. Side rails up X 1. Cardiac monitoring not applicable on this patient. 12:32 No provider procedures requiring assistance completed. Patient did not have IV access ll1 during this emergency room visit. Administered Medications: No medications were administered Medication: 12:09 VIS not applicable for this client. 1 Outcome: 12:23 Discharge ordered by . [facility] 12:32 Discharged to home ambulatory. 1 12:32 Condition: stable 12:32 Discharge instructions given to patient, Instructed on discharge instructions, follow up and referral plans. Demonstrated understanding of instructions, follow-up care. 12:32 Patient left the ED. 1 Signatures: Miryam Watts mr Ismael Hubbard, RN RN ll1 Marilou Vazquez RN RN ld1 Krystyna Lunsford, ELECTRONIC INDUCTION HARDENER ELECTRONIC INDUCTION HARDENER [id number]
--- NOTE | 2022-07-16 12:24 | EDPHYS ---
Physician Documentation [facility] Name: Mitra Melendez Age: 26 yrs Sex: Female : 1995 Arrival Date: 07/16/2022 Time: 11:57 Bed 15 Private MD: ED Physician John Benjamin HPI: 07/16 12:05 This 26 yrs old Female presents to ER via Ambulatory with complaints of Abscess jh7 Recheck, Vaginal problem. 12:05 Patient presents to ED for recheck of: abscess. The affected area is on the buttocks. jh7 Patient presents for a second opinion on genital herpes diagnosis yesterday. She states that she was told to get her abscess rechecked within 24 hours as well.. 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 - Social history:: Smoking status: Patient reports the use of cigarette tobacco products, smokes one pack cigarettes per day. Patient/guardian denies using alcohol. ROS: 12:05 Constitutional: Negative for fever, chills, and weight loss, Eyes: Negative for injury, jh7 pain, redness, and discharge, ENT: Negative for injury, pain, and discharge, Neck: Negative for injury, pain, and swelling, Cardiovascular: Negative for chest pain, palpitations, and edema, Respiratory: Negative for shortness of breath, cough, wheezing, and pleuritic chest pain, Back: Negative for injury and pain, MS/Extremity: Negative for injury and deformity, Neuro: Negative for headache, weakness, numbness, tingling, and seizure. 12:05 Skin: Positive for abscess. 12:05 All other systems are negative. Exam: 12:05 Constitutional: This is a well developed, well nourished patient who is awake, alert, jh7 and in no acute distress. Head/Face: Normocephalic, atraumatic. Cardiovascular: Regular rate and rhythm with a normal S1 and S2. No gallops, murmurs, or rubs. Normal PMI, no JVD. No pulse deficits. Respiratory: Lungs have equal breath sounds bilaterally, clear to auscultation and percussion. No rales, rhonchi or wheezes noted. No increased work of breathing, no retractions or nasal flaring. MS/ Extremity: Pulses equal, no cyanosis. Neurovascular intact. Full, normal range of motion. Neuro: Awake and alert, GCS 15, oriented to person, place, time, and situation. Normal gait. 12:05 : Pelvic Exam: External exam: 1 isolated ulceration present on right inner labia.. 12:05 Skin: Wound recheck: Abscess: the wound has not changed, the packing is in place. Vital Signs: 12:03 BP 121 / 91; Pulse 113; Resp 18; Temp 98.6(TE); Pulse Ox 98% on R/A; Weight 74.84 kg; ld1 Height 5 ft. 4 in. (162.56 cm); Pain 0/10; 12:03 Body Mass Index 28.32 (74.84 kg, 162.56 cm) ld1 MDM: 12:07 Patient medically screened. [facility] 12:15 Differential diagnosis: abscess, genital herpes, skin sore. Data reviewed: vital signs, [facility] nurses notes. Data interpreted: Pulse oximetry: is 98 %. Interpretation: normal. Counseling: I had a detailed discussion with the patient and/or guardian regarding: the historical points, exam findings, and any diagnostic results supporting the discharge/admit diagnosis, to return to the emergency department if symptoms worsen or persist or if there are any questions or concerns that arise at home. Special discussion: The patient was very upset with the possible genital herpes diagnosis. 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 Also advised her to remove the packing of the abscess tomorrow, continue Epsom salt soaks, and prescribed antibiotics.. Administered Medications: No medications were administered Disposition: 17:41 Co-signature as Attending Physician, John Benjamin MD. rn Disposition Summary: 07/16/22 12:23 Discharge Ordered Location: [place] [id number] Problem: new [facility] Symptoms: are unchanged [facility] Condition: Stable [facility] Diagnosis - Abscess [facility] Followup: [facility] - With: Private Physician - When: 2 - 3 days - Reason: Recheck today's complaints Discharge Instructions: - Discharge Summary Sheet [facility] - Skin Abscess [facility] Forms: - Medication Reconciliation Form 7 - Thank You Letter 7 - Antibiotic Education [facility] Signatures: John Benjamin MD MD rn Dibbern, Lauren, RN RN ld1 Krystyna Lunsford, TYPING SECRETARY TYPING SECRETARY [facility]
[2022-07-16 12:36] VITALS: BP 121/91; TEMP 98.6; O2SAT 98
== END 2022-07-16 12:32 | disposition home or self-care (01) ==
LOC: ER 11:55
DX: L02.31 Cutaneous abscess of buttock (principal); F17.210 Nicotine dependence, cigarettes, uncomplicated
CPT/HCPCS: 99281

== ENCOUNTER 2023-04-20 19:16 | Emergency (ER) | payer OTHER ==
--- OUTSIDE RECORDS SUMMARY | 2023-04-20 19:32 | XMS REPORT | Continuity of Care Document ---
:1995 Author Organization [facility] t Address [address] [place] [address] [place] [id number] Care Team Providers Name Role Phone PCP, PATIENT DOES NOT HAVE A Primary Care Physician UnavailMARCIA Vazquez Attending Clinician Unavailable Damaris GAITAN, Marcia Wu Attending Clinician Nurse, [facility] Attending Clinician Unavailable Leia Everett RN Attending Clinician Unavailable Mariza, Juan Carlos Velazco Attending Clinician Unavailable Doctor Unassigned, [place] Attending Clinician Unavailable RAMIREZ SANCHEZ Attending Clinician Unavailable Ramirez Sanchez MD Attending Clinician EDITA DYE Attending Clinician Unavailable Edita Dye CNM Attending Clinician GERMAN BACK Attending Clinician Unavailable SURJIT JACOBS Attending Clinician Unavailable Krystal Surjit AUSTIN Attending Clinician [phone] German Gil Attending Clinician SKYLER CUELLAR Attending Clinician Unavailable Skyler Sidhu Attending Clinician LORENZO CHEATHAM Attending Clinician Unavailable [facility]ony[facility], [facility] Attending Clinician Unavailable Monica Sanchez MD Attending Clinician Payers Payer Name Policy Type Policy Number Effective Date Expiration Date Justyn [employer] [id number] 2023 00:00:00 Problems Condition Condition Condition Status Onset Resolution Last Treating Co mments Source Name Details Category Date Date Treatment Clinician Date GDM GDM Disease Active Univers (gestation (gestation 8-11 it y of al al 00:00: [place] diabetes diabetes 00 Medica l mellitus), mellitus), Br anch class A1 class A1 High-risk High-risk Disease Active Uni vers 8-11 [place] 00 [facility] Family Family Disease Active Univers history of history of 8-11 [place] of congenital [place] heart 00 Medical disease disease Branch Normal Normal Disease Active Univers 7-14 ity of in first in first 00:00: [place] trimester trimester 00 [facility] Branch Nausea and Nausea and Disease Active U nivers vomiting vomiting 7-14 ity of during during 00:00: [place] 00 [facility] prior to prior to Branch 22 weeks 22 weeks gestation gestation History of History of Disease Active U nivers anxiety anxiety 4-13 ity of and and 00:00: [place] depression depression 00 [facility] BMI BMI Disease Active Univers 25.0-25.9, 25.0-25.9, 4-07 it y of adult adult 00:00: [place] 00 [facility] Branch BMI BMI Disease Active Univers 25.0-25.9, 25.0-25.9, 4-07 it y of adult adult 00:00: [place] 00 [facility] Branch Nexplanon Nexplanon Disease Active Uni vers in place in place 3-31 ity of 00:00: [place] [facility] Branch Flu Flu Disease Active Univers vaccine vaccine 3-31 ity of need need 00:00: [place] 00 Medical Branch Internal Internal Disease Active Unive rs thrombosed thrombosed 6-02 it y of hemorrhoid hemorrh[place] Chlamydia Chlamydia Disease Active 2018-09 Uni vers trachomati trachomati 2-02 it y of s s 00:00: [place] infection infection 00 [facility] of lower of lower Branch genitourin genitourin victorina sites victorina sites Encounter Encounter Disease Active 2017-09 Uni vers for for 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 of 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 00:[place] ce of ce of 00 Medical implantabl implantabl Br anch e e subdermal subdermal contracept contracept giovanna giovanna Tobacco Tobacco Disease Active 2017-09 Univers use use 10-04 ity of disorder disorder 00:00: [address] 23 weeks 23 weeks Diagnosis Active Com mon gestation gestation Spir it of of - [facility] Paronychia Paronychia Diagnosis Active Common of finger of finger Spir it of left of left - [facility] hand [facility] Allergies, Adverse Reactions, Alerts Allergy Allergy Status Severity Reaction(s) Onset Inactive Treating Comm ents Source Name Type Date Date Clinician NO KNOWN Drug Active Univers ALLERGIE Class ity of S [facility] Social History Social Habit Start Date Stop Date Quantity Comments Source ASSERTION 2023-01-09 University of 00:00:00 [facility] History of tobacco 2007-10-04 Cigarette Smoker University of use 00:00:00 [facility] History [facility] University o f Alcohol [facility] University o f Alcohol Std Drinks [facility] History [facility] University o f Alcohol Binge [facility] [place] Gender identity Universit y of [facility] Sexual orientation Univer sity of [facility] Alcohol intake 2023-04-19 2023-04-19 Ex-drinker University of 00:00:00 00:00:00 (finding) [facility] Alcohol Comment 2023-03-22 2023-03-22 qquit when fund Univ ersity of 00:00:00 00:00:00 out was [facility] Cigarettes smoked 2023-03-22 2023-03-22 Univers ity of current (pack per 00:00:00 00:00:00 [facility] ) - Reported Branch Cigarette 2023-03-22 2023-03-22 University of pack-years 00:00:00 00:00:00 [facility] Tobacco use and 2023-03-22 2023-03-22 Smokeless Universit y of exposure 00:00:00 00:00:00 tobacco non-user [facility] d[facility] [place] Exposure to 2022-12-10 2022-12-20 Not sure University of SARS-CoV-2 (event) 00:00:00 14:24:00 [facility] History of Social 2022-12-20 2022-12-20 Univers ity of function 00:00:00 00:00:00 [facility] Sex [birth year] Universit y of 00:00:00 00:00:00 [facility] Smoking Status Start Date Stop Date Source Smokes tobacco daily 2023-03-22 00:00:00 Univers ity of [facility] Medications Ordered Filled Start Stop Current Ordering Indication Dosage Frequency Signature Comments Components Source Medication Medication Date Date Medication? Clinician (SIG) Name Name Blood-Gluco Yes Check Unive rs se Meter 7-19 glucose 4 ity of Kit 00:00: times a day. Medical Branch blood sugar Yes Check Unive rs diagnostic 7-19 gluocose 4 ity of (BLOOD 00:00: times a [place] GLUCOSE day Medical TEST) strip Branch Lancets Yes Check Univers Misc 7-19 glucose 4 ity of 00:00: times a Medical Branch Alcohol Yes Apply to Univer s Swabs 7-19 area(s) 4 ity of (ALCOHOL 00:00: (four) [place] PADS) PadM 00 times Medical daily. Branch Blood-Gluco Yes Check Unive rs se Meter 7-19 glucose 4 ity of Kit 00:00: times a . Medical Branch blood sugar Yes Check Unive rs diagnostic 7-19 gluocose 4 ity of (BLOOD 00:00: times a [place] GLUCOSE day Medical TEST) strip Branch Lancets Yes Check Univers Misc 7-19 glucose 4 ity of 00:00: times a Medical Branch Alcohol 2022-0 Yes Apply to Univer s Swabs 7-19 area(s) 4 ity of (ALCOHOL 00:00: (four) [place] PADS) PadM 00 times Medical daily. Branch Blood-Gluco Yes Check Unive rs se Meter 7-19 glucose 4 ity of Kit 00:00: times a day. Medical Branch blood sugar Yes Check Unive rs diagnostic 7-19 gluocose 4 ity of (BLOOD 00:00: times a [place] GLUCOSE 00 day Medical TEST) strip Branch Lancets Yes Check Univers Misc 7-19 glucose 4 ity of 00:00: times a day Medical Branch Alcohol 2022-0 Yes Apply to Univer s Swabs 7-19 area(s) 4 ity of (ALCOHOL 00:00: (four) [place] PADS) PadM 00 times Medical daily. Branch Blood-Gluco 2022-0 Yes Check Unive rs se Meter 7-19 glucose 4 ity of Kit 00:00: times a day. Medical Branch blood sugar 0 Yes Check Unive rs diagnostic 7-19 gluocose 4 ity of (BLOOD 00:00: times a [place] GLUCOSE day Medical TEST) strip Branch Lancets 2022-0 Yes Check Univers Misc 7-19 glucose 4 ity of 00:00: times a day Medical Branch Alcohol 2022-0 Yes Apply to Univer s Swabs 7-19 area(s) 4 ity of (ALCOHOL 00:00: (four) [place] PADS) PadM 00 times Medical daily. Branch Blood-Gluco 2022-0 Yes Check Unive rs se Meter 7-19 glucose 4 ity of Kit 00:00: times a day. Medical Branch blood sugar 0 Yes Check Unive rs diagnostic 7-19 gluocose 4 ity of (BLOOD 00:00: times a [place] GLUCOSE day Medical TEST) strip Branch Lancets 0 Yes Check Univers Misc 7-19 glucose 4 ity of 00:00: times a day Medical Branch Alcohol 2022-0 Yes Apply to Univer s Swabs 7-19 area(s) 4 ity of (ALCOHOL 00:00: (four) [place] PADS) PadM 00 times Medical daily. Branch Blood-Gluco 2022-0 Yes Check Unive rs se Meter 7-19 glucose 4 ity of Kit 00:00: times a day. Medical Branch blood sugar 0 Yes Check Unive rs diagnostic 7-19 gluocose 4 ity of (BLOOD 00:00: times a [place] GLUCOSE day Medical TEST) strip Branch Lancets 2022-0 Yes Check Univers Misc 7-19 glucose 4 ity of 00:00: times a [place] day Medical Branch Alcohol 3-0 Yes Apply to Univer s Swabs 7-19 area(s) 4 ity of (ALCOHOL 00:00: (four) [place] PADS) PadM 00 times Medical daily. Branch Blood-Gluco 2022-0 Yes Check Unive rs se Meter 7-19 glucose 4 ity of Kit 00:00: times a day. Medical Branch blood sugar 0 Yes Check Unive rs diagnostic 7-19 gluocose 4 ity of (BLOOD 00:00: times a [place] GLUCOSE 00 day Medical TEST) strip Branch Lancets 2022-0 Yes Check Univers Misc 7-19 glucose 4 ity of 00:00: times a day Medical Branch Alcohol 2022-0 Yes Apply to Univer s Swabs 7-19 area(s) 4 ity of (ALCOHOL 00:00: (four) [place] PADS) PadM 00 times Medical daily. Branch Blood-Gluco 2022- Yes Check Unive rs se Meter 7-19 glucose 4 ity of Kit 00:00: times a . Medical Branch blood sugar 2022-0 Yes Check Unive rs diagnostic 7-19 gluocose 4 ity of (BLOOD 00:00: times a [place] GLUCOSE 00 day Medical TEST) strip Branch Lancets 0 Yes Check Univers Misc 7-19 glucose 4 ity of 00:00: times a day Medical Branch Alcohol 2022-0 Yes Apply to Univer s Swabs 7-19 area(s) 4 ity of (ALCOHOL 00:00: (four) [place] PADS) PadM 00 times Medical daily. Branch PNV 2022-0 Yes Take by Univers no.95/giancarlo 7-14 mouth. ity of us 09:00: [place] fum/folic 18 Medical ac Branch ( ORAL) PNV 2022-0 Yes Take by Univers no.95/giancarlo 7-14 mouth. ity of us 09:00: [place] fum/folic 18 Medical ac Branch ( ORAL) PNV 2022-0 Yes Take by Univers no.95/giancarlo 7-14 mouth. ity of us 09:00: [place] fum/folic 18 Medical ac Branch ( ORAL) PNV 2022-0 Yes Take by Univers no.95/giancarlo 7-14 mouth. ity of us 09:00: [place] fum/folic 18 Medical ac Branch ( ORAL) PNV 2022-0 Yes Take by Univers no.95/giancarlo 7-14 mouth. ity of us 09:00: [place] fum/folic 18 Medical ac Branch ( ORAL) PNV 2022-0 Yes Take by Univers no.95/giancarlo 7-14 mouth. ity of us 09:00: [place] fum/folic 18 Medical ac Branch ( ORAL) PNV 2022-0 Yes Take by Univers no.95/giancarlo 7-14 mouth. ity of us 09:00: [place] fum/folic 18 Medical ac Branch ( ORAL) PNV 2022-0 Yes Take by Univers no.95/giancarlo 7-14 mouth. ity of us 09:00: [place] fum/folic 18 Medical ac Branch ( ORAL) PNV 2022-0 Yes Take by Univers no.95/giancarlo 7-14 mouth. ity of us 09:00: [place] fum/folic 18 Medical ac Branch ( ORAL) PNV 2022-0 Yes Take by Univers no.95/giancarlo 7-14 mouth. ity of us 09:00: [place] fum/folic 18 Medical ac Branch ( ORAL) PNV 2022-0 Yes Take by Univers no.95/giancarlo 7-14 mouth. ity of us 09:00: [place] fum/folic 18 Medical ac Branch ( ORAL) PNV 2022-0 Yes Take by Univers no.95/giancarlo 7-14 mouth. ity of us 09:00: [place] fum/folic 18 Medical ac Branch ( ORAL) PNV 2022-0 Yes Take by Univers no.95/giancarlo 7-14 mouth. ity of us 09:00: [place] fum/folic 18 Medical ac Branch ( ORAL) PNV 2022-0 Yes Take by Univers no.95/giancarlo 7-14 mouth. ity of us 09:00: [place] fum/folic 18 Medical ac Branch ( ORAL) PNV 2022-0 Yes Take by Univers no.95/giancarlo 7-14 mouth. ity of us 09:00: [place] fum/folic 18 Medical ac Branch ( ORAL) PNV 2022-0 Yes Take by Univers no.95/giancarlo 7-14 mouth. ity of us 09:00: [place] fum/folic 18 Medical ac Branch ( ORAL) pyridoxine, 2022-0 Yes [id number] 25mg Take 1 Univers VITAMIN 7-14 tablet by ity of B-6, 00:00: mouth [place] (VITAMIN 00 every 6 Medical B-6) 25 mg (six) Branch tablet hours as needed for Nausea and Vomiting (N/V). doxylamine 0 Yes [id number] 25mg Take 1 U nivers (UNISOM, 7-14 tablet by ity of DOXYLAMINE, 00:00: [place] 25 mg 00 bedtime as Medica l tablet needed for Branch Nausea and Vomiting (N/V). metoclopram 2023-0 Yes [id number] 10mg Take 1 Univers nabila HCl 10 7-14 tablet by ity of mg tablet 00:00: mouth [place] 00 every 6 Medical (six) Branch hours as needed for Nausea and Vomiting (N/V). pyridoxine, 2022-0 Yes [id number] 25mg Take 1 Univers VITAMIN 7-14 tablet by ity of B-6, 00:00: mouth [place] (VITAMIN 00 every 6 Medical B-6) 25 mg (six) Branch tablet hours as needed for Nausea and Vomiting (N/V). doxylamine 2022-0 Yes [id number] 25mg Take 1 U nivers (UNISOM, 7-14 tablet by ity of DOXYLAMINE, 00:00: [place] 25 mg 00 bedtime as Medica l tablet needed for Branch Nausea and Vomiting (N/V). metoclopram 2022-0 Yes [id number] 10mg Take 1 Univers nabila HCl 10 7-14 tablet by ity of mg tablet 00:00: mouth [place] 00 every 6 Medical (six) Branch hours as needed for Nausea and Vomiting (N/V). pyridoxine, 2022-0 Yes [id number] 25mg Take 1 Univers VITAMIN 7-14 tablet by ity of B-6, 00:00: mouth [place] (VITAMIN 00 every 6 Medical B-6) 25 mg (six) Branch tablet hours as needed for Nausea and Vomiting (N/V). doxylamine 3-0 Yes [id number] 25mg Take 1 U nivers (UNISOM, 7-14 tablet by ity of DOXYLAMINE, 00:[place]: [place] 25 mg 00 bedtime as Medica l tablet needed for Branch Nausea and Vomiting (N/V). metoclopram 2023-0 Yes [id number] 10mg Take 1 Univers nabila HCl 10 7-14 tablet by ity of mg tablet 00:00: mouth [place] 00 every 6 Medical (six) Branch hours as needed for Nausea and Vomiting (N/V). pyridoxine, 2022-0 Yes [id number] 25mg Take 1 Univers VITAMIN 7-14 tablet by ity of B-6, 00:00: mouth [place] (VITAMIN 00 every 6 Medical B-6) 25 mg (six) Branch tablet hours as needed for Nausea and Vomiting (N/V). doxylamine 2022-0 Yes [id number] 25mg Take 1 U nivers (UNISOM, 7-14 tablet by ity of DOXYLAMINE, 00:[place]: [place] 25 mg 00 bedtime as Medica l tablet needed for Branch Nausea and Vomiting (N/V). metoclopram 2022-0 Yes [id number] 10mg Take 1 Univers nabila HCl 10 7-14 tablet by ity of mg tablet 00:00: mouth [place] 00 every 6 Medical (six) Branch hours as needed for Nausea and Vomiting (N/V). pyridoxine, 2022-0 Yes [id number] 25mg Take 1 Univers VITAMIN 7-14 tablet by ity of B-6, 00:00: mouth [place] (VITAMIN 00 every 6 Medical B-6) 25 mg (six) Branch tablet hours as needed for Nausea and Vomiting (N/V). doxylamine 2022-0 Yes [id number] 25mg Take 1 U nivers (UNISOM, 7-14 tablet by ity of DOXYLAMINE, 00:[place]: [place] 25 mg 00 bedtime as Medica l tablet needed for Branch Nausea and Vomiting (N/V). metoclopram 2022-0 Yes [id number] 10mg Take 1 Univers nabila HCl 10 7-14 tablet by ity of mg tablet 00:00: mouth [place] 00 every 6 Medical (six) Branch hours as needed for Nausea and Vomiting (N/V). pyridoxine, 2022-0 Yes [id number] 25mg Take 1 Univers VITAMIN 7-14 tablet by ity of B-6, 00:00: mouth [place] (VITAMIN 00 every 6 Medical B-6) 25 mg (six) Branch tablet hours as needed for Nausea and Vomiting (N/V). doxylamine 2022-0 Yes [id number] 25mg Take 1 U nivers (UNISOM, 7-14 tablet by ity of DOXYLAMINE, 00:00: [place] 25 mg 00 bedtime as Medica l tablet needed for Branch Nausea and Vomiting (N/V). metoclopram 2023-0 Yes [id number] 10mg Take 1 Univers nabila HCl 10 7-14 tablet by ity of mg tablet 00:00: mouth [place] 00 every 6 Medical (six) Branch hours as needed for Nausea and Vomiting (N/V). pyridoxine, 3-0 Yes [id number] 25mg Take 1 Univers VITAMIN 7-14 tablet by ity of B-6, 00:00: mouth [place] (VITAMIN 00 every 6 Medical B-6) 25 mg (six) Branch tablet hours as needed for Nausea and Vomiting (N/V). doxylamine 2023-0 Yes [id number] 25mg Take 1 U nivers (UNISOM, 7-14 tablet by ity of DOXYLAMINE, 00:00: [place] 25 mg 00 bedtime as Medica l tablet needed for Branch Nausea and Vomiting (N/V). metoclopram 3-0 Yes [id number] 10mg Take 1 Univers nabila HCl 10 7-14 tablet by ity of mg tablet 00:00: mouth [place] 00 every 6 Medical (six) Branch hours as needed for Nausea and Vomiting (N/V). pyridoxine, 3-0 Yes [id number] 25mg Take 1 Univers VITAMIN 7-14 tablet by ity of B-6, 00:00: mouth [place] (VITAMIN 00 every 6 Medical B-6) 25 mg (six) Branch tablet hours as needed for Nausea and Vomiting (N/V). doxylamine 3-0 Yes [id number] 25mg Take 1 U nivers (UNISOM, 7-14 tablet by ity of DOXYLAMINE, 00:00: [place] 25 mg 00 bedtime as Medica l tablet needed for Branch Nausea and Vomiting (N/V). metoclopram 3-0 Yes [id number] 10mg Take 1 Univers nabila HCl 10 7-14 tablet by ity of mg tablet 00:00: mouth [place] 00 every 6 Medical (six) Branch hours as needed for Nausea and Vomiting (N/V). pyridoxine, 2023-0 Yes [id number] 25mg Take 1 Univers VITAMIN 7-14 tablet by ity of B-6, 00:00: mouth [place] (VITAMIN 00 every 6 Medical B-6) 25 mg (six) Branch tablet hours as needed for Nausea and Vomiting (N/V). doxylamine 2023-0 Yes [id number] 25mg Take 1 U nivers (UNISOM, 7-14 tablet by ity of DOXYLAMINE, 00:[place]: [place] 25 mg 00 bedtime as Medica l tablet needed for Branch Nausea and Vomiting (N/V). metoclopram 2023-0 Yes [id number] 10mg Take 1 Univers nabila HCl 10 7-14 tablet by ity of mg tablet 00:00: mouth [place] 00 every 6 Medical (six) Branch hours as needed for Nausea and Vomiting (N/V). pyridoxine, 3-0 Yes [id number] 25mg Take 1 Univers VITAMIN 7-14 tablet by ity of B-6, 00:00: mouth [place] (VITAMIN 00 every 6 Medical B-6) 25 mg (six) Branch tablet hours as needed for Nausea and Vomiting (N/V). doxylamine 2023-0 Yes [id number] 25mg Take 1 U nivers (UNISOM, 7-14 tablet by ity of DOXYLAMINE, 00:[place]: [place] 25 mg 00 bedtime as Medica l tablet needed for Branch Nausea and Vomiting (N/V). metoclopram 2023-0 Yes [id number] 10mg Take 1 Univers nabila HCl 10 7-14 tablet by ity of mg tablet 00:00: mouth [place] 00 every 6 Medical (six) Branch hours as needed for Nausea and Vomiting (N/V). pyridoxine, 3-0 Yes [id number] 25mg Take 1 Univers VITAMIN 7-14 tablet by ity of B-6, 00:00: mouth [place] (VITAMIN 00 every 6 Medical B-6) 25 mg (six) Branch tablet hours as needed for Nausea and Vomiting (N/V). doxylamine 2023-0 Yes [id number] 25mg Take 1 U nivers (UNISOM, 7-14 tablet by ity of DOXYLAMINE, 00:[place]: [place] 25 mg 00 bedtime as Medica l tablet needed for Branch Nausea and Vomiting (N/V). metoclopram 2023-0 Yes [id number] 10mg Take 1 Univers nabila HCl 10 7-14 tablet by ity of mg tablet 00:00: mouth [place] 00 every 6 Medical (six) Branch hours as needed for Nausea and Vomiting (N/V). pyridoxine, 2022-0 Yes [id number] 25mg Take 1 Univers VITAMIN 7-14 tablet by ity of B-6, 00:00: mouth [place] (VITAMIN 00 every 6 Medical B-6) 25 mg (six) Branch tablet hours as needed for Nausea and Vomiting (N/V). doxylamine 2022-0 Yes [id number] 25mg Take 1 U nivers (UNISOM, 7-14 tablet by ity of DOXYLAMINE, 00:[place]: [place] 25 mg 00 bedtime as Medica l tablet needed for Branch Nausea and Vomiting (N/V). metoclopram 3-0 Yes [id number] 10mg Take 1 Univers nabila HCl 10 7-14 tablet by ity of mg tablet 00:00: mouth [place] 00 every 6 Medical (six) Branch hours as needed for Nausea and Vomiting (N/V). pyridoxine, 2022-0 Yes [id number] 25mg Take 1 Univers VITAMIN 7-14 tablet by ity of B-6, 00:00: mouth [place] (VITAMIN 00 every 6 Medical B-6) 25 mg (six) Branch tablet hours as needed for Nausea and Vomiting (N/V). doxylamine 2022-0 Yes [id number] 25mg Take 1 U nivers (UNISOM, 7-14 tablet by ity of DOXYLAMINE, 00:[place]: [place] 25 mg 00 bedtime as Medica l tablet needed for Branch Nausea and Vomiting (N/V). metoclopram 3-0 Yes [id number] 10mg Take 1 Univers nabila HCl 10 7-14 tablet by ity of mg tablet 00:00: mouth [place] 00 every 6 Medical (six) Branch hours as needed for Nausea and Vomiting (N/V). pyridoxine, 2023-0 Yes [id number] 25mg Take 1 Univers VITAMIN 7-14 tablet by ity of B-6, 00:00: mouth [place] (VITAMIN 00 every 6 Medical B-6) 25 mg (six) Branch tablet hours as needed for Nausea and Vomiting (N/V). doxylamine 2023-0 Yes [id number] 25mg Take 1 U nivers (UNISOM, 7-14 tablet by ity of DOXYLAMINE, 00:[place]: [place] 25 mg 00 bedtime as Medica l tablet needed for Branch Nausea and Vomiting (N/V). metoclopram 3-0 Yes [id number] 10mg Take 1 Univers nabila HCl 10 7-14 tablet by ity of mg tablet 00:00: mouth [place] 00 every 6 Medical (six) Branch hours as needed for Nausea and Vomiting (N/V). pyridoxine, 2022-0 Yes [id number] 25mg Take 1 Univers VITAMIN 7-14 tablet by ity of B-6, 00:00: mouth [place] (VITAMIN 00 every 6 Medical B-6) 25 mg (six) Branch tablet hours as needed for Nausea and Vomiting (N/V). doxylamine 2022-0 Yes [id number] 25mg Take 1 U nivers (UNISOM, 7-14 tablet by ity of DOXYLAMINE, 00:[place]: [place] 25 mg 00 bedtime as Medica l tablet needed for Branch Nausea and Vomiting (N/V). metoclopram 2022-0 Yes [id number] 10mg Take 1 Univers nabila HCl 10 7-14 tablet by ity of mg tablet 00:00: mouth [place] 00 every 6 Medical (six) Branch hours as needed for Nausea and Vomiting (N/V). ondansetron 2022- No 4mg 4 mg, [facility] ers (ZOFRAN-ODT 03-07 Oral, ity of ) 05:00: 03:55 ONCE, 1 [place] disintegrat 00 :00 dose, On Medi brisa ing tablet Kate Branch 4 mg 03/07/23 at 0000, [place] doxylamine- 2022-0 Yes [id number] 1{tbl} Take 1 Univers pyridoxine, 6-28 tablet by ity of vit B6, 00:00: mouth 4 [place] (DICLEGIS) 00 (four) Medical 10-10 mg times Branch per tablet daily as needed for Nausea and Vomiting (N/V). doxylamine- 2022-0 2022- No [id number] 1{tbl} Take 1 Univers pyridoxine, 6-28 07-14 tablet by it y of vit B6, 00:00: 00:00 mouth 4 [place] (DICLEGIS) 00 :00 (four) Medical 10-10 mg times Branch per tablet daily as needed for Nausea and Vomiting (N/V). doxylamine- 2022- No [id number] 1{tbl} Take 1 Univers pyridoxine, 628 07-14 tablet by it y of vit B6, 00:00: 00:00 mouth 4 [place] (DICLEGIS) 00 :00 (four) Medical 10-10 mg times Branch per tablet daily as needed for Nausea and Vomiting (N/V). No known 2021-09 No No known Unive rs medications 1-09 medication it y of 13:50: s [address] No known 2021-09 No No known Unive rs medications 1-09 medication it y of 13:50: s [address] No known 2021-09 No No known Unive rs medications 1-09 medication it y of 13:50: s [address] No known No Univers medications 4-07 ity of 09:03: [address] Yes Florencio 1 tablet C samra [facility] Immunizations Ordered Immunization Filled Immunization Date Status Commen ts Source Name Name Influenza Virus 2021-12-14 Completed Universit y of Vaccine [place] .5 mL IM 00:00:00 [place] as Medical 6+ MO Branch Influenza Virus 2021-12-14 Completed Universit y of Vaccine [place] .5 mL IM 00:00:00 [place] as Medical 6+ MO Branch Influenza Virus 2021-12-14 Completed Universit y of Vaccine [place] .5 mL IM 00:00:00 [place] as Medical 6+ MO Branch Influenza Virus 2021-12-14 Completed Universit y of Vaccine [place] .5 mL IM 00:00:00 [place] 6+ [place] Branch Influenza Virus 2021-12-14 Completed Universit y of Vaccine Quad .5 mL IM 00:00:00 [place] as Medical 6+ MO Branch Influenza Virus 2021-12-14 Completed Universit y of Vaccine Quad .5 mL IM 00:00:00 [place] as Medical 6+ MO Branch Influenza Virus 2021-12-14 Completed Universit y of Vaccine Quad .5 mL IM 00:00:00 [place] as Medical 6+ MO Branch Influenza Virus 2021-12-14 Completed Universit y of Vaccine [place] .5 mL IM 00:00:00 [place] as Medical 6+ MO Branch Influenza Virus 2021-12-14 Completed Universit y of Vaccine Quad .5 mL IM 00:00:00 [place] as Medical 6+ MO Branch Influenza Virus 2021-12-14 Completed Universit y of Vaccine [place] .5 mL IM 00:00:00 [place] as Medical 6+ MO Branch Influenza Virus 2021-12-14 Completed Universit y of Vaccine Quad .5 mL IM 00:00:00 [place] as Medical 6+ MO Branch Influenza Virus 2021-12-14 Completed Universit y of Vaccine [place] .5 mL IM 00:00:00 [place] as Medical 6+ MO Branch Influenza Virus 2021-12-14 Completed Universit y of Vaccine [place] .5 mL IM 00:00:00 [place] as Medical 6+ MO Branch Influenza Virus 2021-12-14 Completed Universit y of Vaccine Quad .5 mL IM 00:00:00 [place] as Medical 6+ MO Branch Influenza Virus 2021-12-14 Completed [facility] .5 mL IM 00:00[facility] Influenza Virus 2021-12-14 Completed [facility] .5 mL IM 00:00:00 [facility] Influenza Virus 2021-12-14 Completed [facility] .5 mL IM 00:00:00 [facility] Influenza Virus 2021-12-14 Completed [facility] .5 mL IM 00:00:00 [facility] Influenza Virus 2021-12-14 Completed [facility] .5 mL IM 00:00:00 [facility] Influenza Virus 2021-12-14 Completed [facility] .5 mL IM 00:00:00 [facility] Influenza Virus 2021-12-14 Completed [facility] .5 mL IM 00:00:00 [facility] Influenza Virus 2021-12-14 Completed [facility] .5 mL IM 00:00:00 [facility] Influenza Virus 2021-12-14 Completed [facility] .5 mL IM 00:00:00 [facility] Influenza Virus 2021-12-14 Completed [facility] .5 mL IM 00:00:00 [facility] HPV9 2020-12-07 Completed [facility] 00:00:00 [facility] HPV9 2020-12-07 Completed [facility] 00:00:00 [facility] HPV9 2020-12-07 Completed [facility] 00:00:00 [facility] HPV9 2020-12-07 Completed [facility] 00:00:00 [facility] HPV9 2020-12-07 Completed [facility] 00:00:00 [facility] HPV9 2020-12-07 Completed [facility] 00:00:00 [facility] HPV9 2020-12-07 Completed [facility] 00:00:00 [facility] HPV9 2020-12-07 Completed [facility] 00:00:00 [facility] HPV9 2020-12-07 Completed [facility] 00:00:00 [facility] HPV9 2020-12-07 Completed [facility] 00:00:00 [facility] HPV9 2020-12-07 Completed [facility] 00:00:00 [facility] HPV9 2020-12-07 Completed [facility] 00:00:00 [facility] HPV9 2020-12-07 Completed [facility] 00:00:00 [facility] HPV9 2020-12-07 Completed [facility] 00:00:00 [facility] HPV9 2020-12-07 Completed [facility] 00:00:00 [facility] HPV9 2020-12-07 Completed [facility] 00:00:00 [facility] HPV9 2020-12-07 Completed [facility] 00:00:00 [facility] HPV9 2020-12-07 Completed [facility] 00:00:00 [facility] HPV9 2020-12-07 Completed [facility] 00:00:00 [facility] HPV9 2020-12-07 Completed [facility] 00:00:00 [facility] HPV9 2020-12-07 Completed [facility] 00:00:00 [facility] HPV9 2020-12-07 Completed [facility] 00:00:00 [facility] HPV9 2020-12-07 Completed [facility] 00:00:00 [facility] HPV9 2020-12-07 Completed [facility] 00:00:00 [facility] HPV9 2019-09-17 Completed [facility] 00:00:00 [facility] HPV9 2019-09-17 Completed [facility] 00:00:00 [facility] HPV9 2019-09-17 Completed [facility] 00:00:00 [facility] HPV9 2019-09-17 Completed [facility] 00:00:00 [facility] HPV9 2019-09-17 Completed [facility] 00:00:00 [facility] HPV9 2019-09-17 Completed [facility] 00:00:00 [facility] HPV9 2019-09-17 Completed [facility] 00:00:00 [facility] HPV9 2019-09-17 Completed [facility] 00:00:00 [facility] HPV9 2019-09-17 Completed [facility] 00:00:00 [facility] HPV9 2019-09-17 Completed [facility] 00:00:00 [facility] HPV9 2019-09-17 Completed [facility] 00:00:00 [facility] HPV9 2019-09-17 Completed [facility] 00:00:00 [facility] HPV9 2019-09-17 Completed [facility] 00:00:00 [facility] HPV9 2019-09-17 Completed [facility] 00:00:00 [facility] HPV9 2019-09-17 Completed [facility] 00:00:00 [facility] HPV9 2019-09-17 Completed [facility] 00:00:00 [facility] HPV9 2019-09-17 Completed [facility] 00:00:00 [facility] HPV9 2019-09-17 Completed [facility] 00:00:00 [facility] HPV9 2019-09-17 Completed [facility] 00:00:00 [facility] HPV9 2019-09-17 Completed [facility] 00:00:00 [facility] HPV9 2019-09-17 Completed [facility] 00:00:00 [facility] HPV9 2019-09-17 Completed [facility] 00:00:00 [facility] HPV9 2019-09-17 Completed [facility] 00:00:00 [facility] HPV9 2019-09-17 Completed [facility] 00:00:00 [facility] HPV9 2019-08-05 Completed [facility] 00:00:00 [facility] Influenza Virus 2019-08-05 Completed [facility] .5 mL IM 00:00:00 [facility] HPV9 2019-08-05 Completed [facility] 00:00:00 [facility] Influenza Virus 2019-08-05 Completed [facility] .5 mL IM 00:00:00 [facility] HPV9 2019-08-05 Completed [facility] 00:00:00 [facility] Influenza Virus 2019-08-05 Completed [facility] .5 mL IM 00:00:00 [facility] HPV9 2019-08-05 Completed [facility] 00[facility]00:00 [facility] Influenza Virus 2019-08-05 Completed [facility] .5 mL IM 00:00:00 [facility] HPV9 2019-08-05 Completed [facility] 00:00:00 [facility] Influenza Virus 2019-08-05 Completed [facility] .5 mL IM 00:00:00 [facility] HPV9 2019-08-05 Completed [facility] 00:00:00 [facility] Influenza Virus 2019-08-05 Completed [facility] .5 mL IM 00:00:00 [facility] HPV9 2019-08-05 Completed [facility] 00:00:00 [facility] Influenza Virus 2019-08-05 Completed [facility] .5 mL IM 00:00:00 [facility] HPV9 2019-08-05 Completed [facility] 00:00:00 [facility] Influenza Virus 2019-08-05 Completed [facility] .5 mL IM 00:00:00 [facility] HPV9 2019-08-05 Completed [facility] 00[facility]00:00 [facility] Influenza Virus 2019-08-05 Completed [facility] .5 mL IM 00:00:00 [facility] HPV9 2019-08-05 Completed [facility] 00:00:00 [facility] Influenza Virus 2019-08-05 Completed [facility] .5 mL IM 00:00:00 [facility] HPV9 2019-08-05 Completed [facility] 00:00:00 [facility] Influenza Virus 2019-08-05 Completed [facility] .5 mL IM 00:00:00 [facility] HPV9 2019-08-05 Completed [facility] 00:00:00 [facility] Influenza Virus 2019-08-05 Completed [facility] .5 mL IM 00:00:00 [facility] HPV9 2019-08-05 Completed [facility] 00:00:00 [facility] Influenza Virus 2019-08-05 Completed [facility] .5 mL IM 00:00:00 [facility] HPV9 2019-08-05 Completed [facility] 00:00:00 [facility] Influenza Virus 2019-08-05 Completed [facility] .5 mL IM 00:00:00 [facility] HPV9 2019-08-05 Completed [facility] 00:00:00 [facility] Influenza Virus 2019-08-05 Completed [facility] .5 mL IM 00:00:00 [facility] HPV9 2019-08-05 Completed [facility] 00:00:00 [facility] Influenza Virus 2019-08-05 Completed [facility] .5 mL IM 00:00:00 [facility] HPV9 2019-08-05 Completed [facility] 00:00:00 [facility] Influenza Virus 2019-08-05 Completed [facility] .5 mL IM 00:00:00 [facility] HPV9 2019-08-05 Completed [facility] 00:00:00 [facility] Influenza Virus 2019-08-05 Completed [facility] .5 mL IM 00:00:00 [facility] HPV9 2019-08-05 Completed [facility] 00:00:00 [facility] Influenza Virus 2019-08-05 Completed [facility] .5 mL IM 00:00:00 [facility] HPV9 2019-08-05 Completed [facility] 00:00:00 [facility] Influenza Virus 2019-08-05 Completed [facility] .5 mL IM 00:00:00 [facility] HPV9 2019-08-05 Completed [facility] 00:00:00 [facility] Influenza Virus 2019-08-05 Completed [facility] .5 mL IM 00:00:00 [facility] HPV9 2019-08-05 Completed [facility] 00:00:00 [facility] Influenza Virus 2019-08-05 Completed [facility] .5 mL IM 00:00:00 [facility] HPV9 2019-08-05 Completed [facility] 00:00:00 [facility] Influenza Virus 2019-08-05 Completed [facility] .5 mL IM 00:00:00 [facility] HPV9 2019-08-05 Completed [facility] 00:00:00 [facility] Influenza Virus 2019-08-05 Completed [facility] .5 mL IM 00:00:00 [facility] TDAP 2018-05-08 Completed [facility] 00:00:00 [facility] TDAP 2018-05-08 [facility] 2018[facility]05-08 Com[facility] 00:00:00 [facility] TDAP 2018-05-08 Completed [facility] 2018-05-08 Com[facility] 00:00:00 [facility] 2018-05-08 Completed [facility] 00:00:00 [facility] 2018-05-08 Completed [facility] 00:00:00 [facility] 2018-05-08 Completed [facility] 00:00:00 [facility] 2018-05-08 Completed [facility] 00:00:00 [facility] 2018-05-08 Completed [facility] 00:00:00 [facility] 2018-05-08 Completed [facility] 00:00:00 [facility] 2018-05-08 Completed [facility] 00:00:00 [facility] 2018-05-08 Completed [facility] 00:00:00 [facility] 2018-05-08 Completed [facility] 00:00:00 [facility] 2018-05-08 Completed [facility] 00:00:00 [facility] 2018-05-08 Completed [facility] 00:00:00 [facility] TDAP 2018-05-08 Completed [facility] 00:00:00 [facility] TDAP 2018-05-08 Completed [facility] 00:00:00 [facility] 2018-05-08 Completed [facility] 00:00:00 [facility] 2018-05-08 Completed [facility] 00:00:00 [facility] TDAP 2018-05-08 Completed [facility] 2018-05-08 Completed [facility] 00:00:00 [facility] Meningococcal 2008-11-26 Completed [facility] Polysaccharide 00:00:00 [facility] (groups A, C, Y and Branc h W-135) conjugate vaccine (MCV4P) TDAP 2008-11-26 Completed [facility] 00:00:00 [facility] Varicella 2008-11-26 Completed [facility] of (varivax)(chicken 00:00:00 [facility] pox) [facility] Meningococcal 2008-11-26 Completed [facility] Polysaccharide 00:00:00 [facility] (groups A, C, Y and Branc h W-135) conjugate vaccine (MCV4P) TDAP 2008-11-26 Completed [facility] 00:00:00 [facility] Varicella 2008-11-26 Completed [facility] (varivax)(chicken 00:00:00 [place] [facility] pox) [facility] Meningococcal 2008-11-26 Completed [facility] Polysaccharide 00:00:00 [facility] (groups A, C, Y and Branc h W-135) conjugate vaccine (MCV4P) TDAP 2008-11-26 Completed [facility] 00:00:00 [facility] Varicella 2008-11-26 Completed [facility] (varivax)(chicken 00:00:00 [place] [facility] pox) [facility] Meningococcal 2008-11-26 Completed [facility] Polysaccharide 00:00:00 [facility] brisa (groups A, C, Y and Branc h W-135) conjugate vaccine (MCV4P) TDAP 2008-11-26 Completed [facility] 00:00:00 [facility] Varicella 2008-11-26 Completed [facility] (varivax)(chicken 00:00:00 [place] [facility] pox) [facility] Meningococcal 2008-11-26 Completed [facility] Polysaccharide 00:00:00 [facility] (groups A, C, Y and Branc h W-135) conjugate vaccine (MCV4P) TDAP 2008-11-26 Completed [facility] 00:00:00 [facility] Varicella 2008-11-26 Completed [facility] (varivax)(chicken 00:00:00 [place] [facility] pox) [facility] Meningococcal 2008-11-26 Completed [facility] Polysaccharide 00:00:00 [facility] (groups A, C, Y and Branc h W-135) conjugate vaccine (MCV4P) TDAP 2008-11-26 Completed [facility] 00:00:00 [facility] Varicella 2008-11-26 Completed [facility] (varivax)(chicken 00:00:00 [place] [facility] pox) [facility] Meningococcal 2008-11-26 Completed [facility] Polysaccharide 00:00:00 [place] [facility] (groups A, C, Y and Branc h W-135) conjugate vaccine (MCV4P) TDAP 2008-11-26 Completed [facility] 00:00:00 [facility] Varicella 2008-11-26 Completed [facility] (varivax)(chicken 00:00:00 [place] [facility] pox) [facility] Meningococcal 2008-11-26 Completed [facility] Polysaccharide 00:00:00 [place] [facility] (groups A, C, Y and Branc h W-135) conjugate vaccine (MCV4P) TDAP 2008-11-26 Completed [facility] 00:00:00 [facility] Varicella 2008-11-26 Completed [facility] (varivax)(chicken 00:00:00 [place] [facility] pox) [facility] Meningococcal 2008-11-26 Completed [facility] of Polysaccharide 00:00:00 [facility] brisa (groups A, C, Y and Branc h W-135) conjugate vaccine (MCV4P) TDAP 2008-11-26 Completed [facility] 00:00:00 [facility] Varicella 2008-11-26 Completed [facility] (varivax)(chicken 00:00:00 [place] [facility] pox) [facility] Meningococcal 2008-11-26 Completed [facility] of Polysaccharide 00:00:00 [facility] brisa (groups A, C, Y and Branc h W-135) conjugate vaccine (MCV4P) TDAP 2008-11-26 Completed [facility] 00:00:00 [facility] Varicella 2008-11-26 Completed [facility] (varivax)(chicken 00:00:00 [place] [facility] pox) [facility] Meningococcal 2008-11-26 Completed [facility] Polysaccharide 00:00:00 [place] [facility] (groups A, C, Y and Branc h W-135) conjugate vaccine (MCV4P) TDAP 2008-11-26 Completed [facility] 00:00:00 [facility] Varicella 2008-11-26 Completed [facility] (varivax)(chicken 00:00:00 [place] [facility] pox) [facility] Meningococcal 2008-11-26 Completed [facility] Polysaccharide 00:00:00 [place] [facility] (groups A, C, Y and Branc h W-135) conjugate vaccine (MCV4P) TDAP 2008-11-26 Completed [facility] 00:00:00 [facility] Varicella 2008-11-26 Completed [facility] (varivax)(chicken 00:00:00 [place] [facility] pox) [facility] Meningococcal 2008-11-26 Completed [facility] Polysaccharide 00:00:00 [facility] (groups A, C, Y and Branc h W-135) conjugate vaccine (MCV4P) TDAP 2008-11-26 Completed [facility] 00:00:00 [facility] Varicella 2008-11-26 Completed [facility] (varivax)(chicken 00:00:00 [place] [facility] pox) [facility] Meningococcal 2008-11-26 Completed [facility] Polysaccharide 00:00:00 [facility] (groups A, C, Y and Branc h W-135) conjugate vaccine (MCV4P) TDAP 2008-11-26 Completed [facility] 00:00:00 [facility] Varicella 2008-11-26 Completed [facility] (varivax)(chicken 00:00:00 [place] [facility] pox) [facility] Meningococcal 2008-11-26 Completed [facility] Polysaccharide 00:00:00 [place] [facility] (groups A, C, Y and Branc h W-135) conjugate vaccine (MCV4P) TDAP 2008-11-26 Completed [facility] 00:00:00 [facility] Varicella 2008-11-26 Completed [facility] (varivax)(chicken 00:00:00 [place] [facility] pox) [facility] Meningococcal 2008-11-26 Completed [facility] Polysaccharide 00:00:00 [facility] (groups A, C, Y and Branc h W-135) conjugate vaccine (MCV4P) TDAP 2008-11-26 Completed [facility] 00:00:00 [facility] Varicella 2008-11-26 Completed [facility] (varivax)(chicken 00:00:00 [place] [facility] pox) [facility] Meningococcal 2008-11-26 Completed [facility] Polysaccharide 00:00:00 [place] [facility] (groups A, C, Y and Branc h W-135) conjugate vaccine (MCV4P) TDAP 2008-11-26 Completed [facility] 00:00:00 [facility] Varicella 2008-11-26 Completed [facility] (varivax)(chicken 00:00:00 [place] [facility] pox) [facility] Meningococcal 2008-11-26 Completed [facility] Polysaccharide 00:00:00 [place] [facility] (groups A, C, Y and Branc h W-135) conjugate vaccine (MCV4P) TDAP 2008-11-26 Completed [facility] 00:00:00 [facility] Varicella 2008-11-26 Completed [facility] (varivax)(chicken 00:00:00 [place] [facility] pox) [facility] Meningococcal 2008-11-26 Completed [facility] of Polysaccharide 00:00:00 [facility] brisa (groups A, C, Y and Branc h W-135) conjugate vaccine (MCV4P) TDAP 2008-11-26 Completed [facility] 00:00:00 [facility] Varicella 2008-11-26 Completed [facility] (varivax)(chicken 00:00:00 [place] [facility] pox) [facility] MMR 2001-02-04 Completed [facility] of 00:00:00 [facility] IPV 2001-02-04 Completed [facility] of 00:00:00 [facility] DTaP, Unspecified 2001-02-04 Completed Univers ity of Formulation 00:00:00 [facility] MMR 2001-02-04 Completed [facility] of 00:00:00 [facility] IPV 2001-02-04 Completed [facility] of 00:00:00 [facility] DTaP, Unspecified 2001-02-04 Completed Univers ity of Formulation 00:00:00 [facility] MMR 2001-02-04 Completed [facility] of 00:00:00 [facility] IPV 2001-02-04 Completed [facility] of 00:00:00 [facility] DTaP, Unspecified 2001-02-04 Completed Univers ity of Formulation 00:00:00 [facility] MMR 2001-02-04 Completed [facility] of 00:00:00 [facility] IPV 2001-02-04 Completed [facility] of 00:00:00 [facility] DTaP, Unspecified 2001-02-04 Completed Univers ity of Formulation 00:00:00 [facility] MMR 2001-02-04 Completed [facility] of 00:00:00 [facility] IPV 2001-02-04 Completed [facility] of 00:00:00 [facility] DTaP, Unspecified 2001-02-04 Completed Univers ity of Formulation 00:00:00 [facility] MMR 2001-02-04 Completed [facility] of 00:00:00 [facility] IPV 2001-02-04 Completed [facility] of 00:00:00 [facility] DTaP, Unspecified 2001-02-04 Completed Univers ity of Formulation 00:00:00 [facility] MMR 2001-02-04 Completed [facility] of 00:00:00 [facility] IPV 2001-02-04 Completed [facility] 00:00:00 [facility] DTaP, Unspecified 2001-02-04 Completed Univers ity of Formulation 00:00:00 [facility] Branch MMR 2001-02-04 Completed [facility] 00:00:00 [facility] IPV 2001-02-04 Completed [facility] 00:00:00 [facility] DTaP, Unspecified 2001-02-04 Completed Univers ity of Formulation 00:00:00 [facility] MMR 2001-02-04 Completed [facility] of 00:00:00 [facility] IPV 2001-02-04 Completed [facility] 00:00:00 [facility] DTaP, Unspecified 2001-02-04 Completed Univers ity of Formulation 00:00:00 [facility] MMR 2001-02-04 Completed [facility] of 00:00:00 [facility] IPV 2001-02-04 Completed [facility] of 00:00:00 [facility] DTaP, Unspecified 2001-02-04 Completed Univers ity of Formulation 00:00:00 [facility] MMR 2001-02-04 Completed [facility] of 00:00:00 [facility] IPV 2001-02-04 Completed [facility] 00:00:00 [facility] DTaP, Unspecified 2001-02-04 Completed Univers ity of Formulation 00:00:00 [facility] MMR 2001-02-04 Completed [facility] 00:00:00 [facility] IPV 2001-02-04 Completed [facility] 00:00:00 [facility] DTaP, Unspecified 2001-02-04 Completed Univers ity of Formulation 00:00:00 [facility] MMR 2001-02-04 Completed [facility] of 00:00:00 [facility] IPV 2001-02-04 Completed [facility] of 00:00:00 [facility] DTaP, Unspecified 2001-02-04 Completed Univers ity of Formulation 00:00:00 [facility] MMR 2001-02-04 Completed [facility] 00:00:00 [facility] IPV 2001-02-04 Completed [facility] 00:00:00 [facility] DTaP, Unspecified 2001-02-04 Completed Univers ity of Formulation 00:00:00 [facility] MMR 2001-02-04 Completed [facility] 00:00:00 [facility] IPV 2001-02-04 Completed [facility] 00:00:00 [facility] DTaP, Unspecified 2001-02-04 Completed Univers ity of Formulation 00:00:00 [facility] MMR 2001-02-04 Completed [facility] 00:00:00 [facility] IPV 2001-02-04 Completed [facility] 00:00:00 [facility] DTaP, Unspecified 2001-02-04 Completed Univers ity of Formulation 00:00:00 [facility] MMR 2001-02-04 Completed [facility] 00:00:00 [facility] IPV 2001-02-04 Completed [facility] of 00:00:00 [facility] DTaP, Unspecified 2001-02-04 Completed [facility] ity of Formulation 00:00:00 [facility] MMR 2001-02-04 Completed [facility] of 00:00:00 [facility] IPV 2001-02-04 Completed [facility] of 00:00:00 [facility] DTaP, Unspecified 2001-02-04 Completed Univers ity of Formulation 00:00:00 [facility] MMR 2001-02-04 Completed [facility] of 00:00:00 [facility] IPV 2001-02-04 Completed [facility] of 00:00:00 [facility] DTaP, Unspecified 2001-02-04 Completed [facility] ity of Formulation 00:00:00 [facility] MMR 1998-07-29 Completed [facility] of 00:00:00 [facility] DPT/HIB 1998-07-29 Completed [facility] of 00:00:00 [facility] MMR 1998-07-29 Completed [facility] of 00:00:00 [facility] DPT/HIB 1998-07-29 Completed [facility] 00:00:00 [facility] MMR 1998-07-29 Completed [facility] 00:00:00 [facility] DPT/HIB 1998-07-29 Completed [facility] of 00:00:00 [facility] MMR 1998-07-29 Completed [facility] 00:00:00 [facility] DPT/HIB 1998-07-29 Completed [facility] 00:00:00 [facility] MMR 1998-07-29 Completed [facility] 00:00:00 [facility] DPT/HIB 1998-07-29 Completed [facility] 00:00:00 [facility] MMR 1998-07-29 Completed [facility] 00:00:00 [facility] DPT/HIB 1998-07-29 Completed [facility] 00:00:00 [facility] MMR 1998-07-29 Completed [facility] 00:00:00 [facility] DPT/HIB 1998-07-29 Completed [facility] of 00:00:00 [facility] MMR 1998-07-29 Completed [facility] 00:00:00 [facility] DPT/HIB 1998-07-29 Completed [facility] of 00:00:00 [facility] MMR 1998-07-29 Completed [facility] of 00:00:00 [facility] DPT/HIB 1998-07-29 Completed [facility] 00:00:00 [facility] [facility] 1998-07-29 Completed [facility] 00:00:00 [facility] DPT/HIB 1998-07-29 Completed [facility] 00:00:00 [facility] MMR 1998-07-29 Completed [facility] 00:00:00 [facility] DPT/HIB 1998-07-29 Completed [facility] 00:00:00 [facility] MMR 1998-07-29 Completed [facility] 00:00:00 [facility] DPT/HIB 1998-07-29 Completed [facility] 00:00:00 [facility] MMR 1998-07-29 Completed [facility] 00:00:00 [facility] DPT/HIB 1998-07-29 Completed [facility] 00:00:00 [facility] MMR 1998-07-29 Completed [facility] 00:00:00 [facility] DPT/HIB 1998-07-29 Completed [facility] 00:00:00 [facility] MMR 1998-07-29 Completed [facility] 00:00:00 [facility] DPT/HIB 1998-07-29 Completed [facility] 00:00:00 [facility] MMR 1998-07-29 Completed [facility] 00:00:00 [facility] DPT/HIB 1998-07-29 Completed [facility] 00:00:00 [facility] MMR 1998-07-29 Completed [facility] 00:00:00 [facility] DPT/HIB 1998-07-29 Completed [facility] 00:00:00 [facility] MMR 1998-07-29 Completed [facility] 00:00:00 [facility] DPT/HIB 1998-07-29 Completed [facility] 00:00:00 [facility] MMR 1998-07-29 Completed [facility] 00:00:00 [facility] DPT/HIB 1998-07-29 Completed [facility] 00:00:00 [facility] Poliovirus, Live, 1998-02-04 Completed [facility] Oral, Trivalent 00:00:00 [place] [facility] Varicella 1998-02-04 Completed [facility] of (varivax)(chicken 00:00:00 [facility] edical pox) Branch Poliovirus, Live, 1998-02-04 Completed [facility] Oral, Trivalent 00:00:00 [facility] Varicella 1998-02-04 Completed [facility] (varivax)(chicken 00:00:00 [place] [facility] Poliovirus, Live, 1998-02-04 Completed [facility] Oral, Trivalent 00:00:00 [place] [facility] Varicella 1998-02-04 Completed [facility] (varivax)(chicken 00:00:00 [place] [facility] Poliovirus, Live, 1998-02-04 Completed [facility] Oral, Trivalent 00:00:00 [place] [facility] Varicella 1998-02-04 Completed [facility] (varivax)(chicken 00:00:00 [place] [facility] Poliovirus, Live, 1998-02-04 Completed [facility] Oral, Trivalent 00:00:00 [facility] Varicella 1998-02-04 Completed [facility] (varivax)(chicken 00:00:00 [place] [facility] p[facility]) [facility] Poliovirus, Live, 1998-02-04 Completed [facility] Oral, Trivalent 00:00:00 [facility] ical Branch Varicella 1998-02-04 Completed [facility] (varivax)(chicken 00:00:00 [place] [facility] p[facility]) [facility] Poliovirus, Live, 1998-02-04 Completed [facility] Oral, Trivalent 00:00:00 [facility] ical Branch Varicella 1998-02-04 Completed [facility] (varivax)(chicken 00:00:00 [place] [facility] pox) [facility] Poliovirus, Live, 1998-02-04 Completed [facility] Oral, Trivalent 00:00:00 [facility] ical Branch Varicella 1998-02-04 Completed [facility] (varivax)(chicken 00:00:00 [place] [facility] pox) [facility] Poliovirus, Live, 1998-02-04 Completed [facility] Oral, Trivalent 00:00:00 [facility] ical [facility] Varicella 1998-02-04 Completed [facility] (varivax)(chicken 00:00:00 [place] [facility] p[facility]) [facility] Poliovirus, Live, 1998-02-04 Completed [facility] Oral, Trivalent 00:00:00 [facility] ical Branch Varicella 1998-02-04 Completed [facility] (varivax)(chicken 00:00:00 [place] [facility] p[facility] Poliovirus, Live, 1998-02-04 Completed [facility] Oral, Trivalent 00:00:00 [place] [facility] Varicella 1998-02-04 Completed [facility] (varivax)(chicken 00:00:00 [place] [facility] Poliovirus, Live, 1998-02-04 Completed [facility] Oral, Trivalent 00:00:00 [place] [facility] Varicella 1998-02-04 Completed [facility] (varivax)(chicken 00:00:00 [place] [facility] Poliovirus, Live, 1998-02-04 Completed [facility] Oral, Trivalent 00:00:00 [place] [facility] Varicella 1998-02-04 Completed [facility] (varivax)(chicken 00:00:00 [place] [facility] Poliovirus, Live, 1998-02-04 Completed [facility] Oral, Trivalent 00:00:00 [place] [facility] Varicella 1998-02-04 Completed [facility] (varivax)(chicken 00:00:00 [place] [facility] Poliovirus, Live, 1998-02-04 Completed [facility] Oral, Trivalent 00:00:00 [place] [facility] Varicella 1998-02-04 Completed [facility] (varivax)(chicken 00:00:00 [place] [facility] pox) [facility] Poliovirus, Live, 1998-02-04 Completed [facility] Oral, Trivalent 00:00:00 [place] [facility] Varicella 1998-02-04 Completed [facility] (varivax)(chicken 00:00:00 [place] [facility] Poliovirus, Live, 1998-02-04 Completed [facility] Oral, Trivalent 00:00:00 [place] [facility] Varicella 1998-02-04 Completed [facility] (varivax)(chicken 00:00:00 [place] [facility] Poliovirus, Live, 1998-02-04 Completed [facility] Oral, Trivalent 00:00:00 [place] [facility] Varicella 1998-02-04 Completed [facility] (varivax)(chicken 00:00:00 [place] [facility] Poliovirus, Live, 1998-02-04 Completed [facility] Oral, Trivalent 00:00:00 [place] [facility] Varicella 1998-02-04 Completed [facility] (varivax)(chicken 00:00:00 [place] [facility] pox) [facility] Hep B, Adol or Pedi 1997-10-28 Completed Unive rsity of Dosage 00:00:00 [facility] Hep B, Adol or Pedi 1997-10-28 Completed [facility]ive rsity of Dosage 00:00:00 [facility] Hep B, Adol or Pedi 1997-10-28 Completed [facility]ive rsity of Dosage 00:00:00 [facility] Hep B, Adol or Pedi 1997-10-28 Completed [facility]ive rs[facility] of Dosage 00:00:00 [facility] Hep B, Adol or Pedi 1997-10-28 Completed [facility]ive rsity of Dosage 00:00:00 [facility] Hep B, Adol or Pedi 1997-10-28 Completed [facility] rs[facility] of Dosage 00:00:00 [facility] Hep B, Adol or Pedi 1997-10-28 Completed [facility]ive rsity of Dosage 00:00:00 [facility] Hep B, Adol or Pedi 1997-10-28 Completed [facility]ive rsity of Dosage 00:00:00 [facility] Hep B, Adol or Pedi 1997-10-28 Completed [facility]ive rsity of Dosage 00:00:00 [facility] Hep B, Adol or Pedi 1997-10-28 Completed [facility]ive rsity of Dosage 00:00:00 [facility] Hep B, Adol or Pedi 1997-10-28 Completed [facility]ive rsity of Dosage 00:00:00 [facility] Hep B, Adol or Pedi 1997-10-28 Completed [facility]ive rsity of Dosage 00:00:00 [facility] Hep B, Adol or Pedi 1997-10-28 Completed [facility]ive rsity of Dosage 00:00:00 [facility] Hep B, Adol or Pedi 1997-10-28 Completed [facility] rsity of Dosage 00:00:00 [facility] Hep B, Adol or Pedi 1997-10-28 Completed [facility]ive rsity of Dosage 00:00:00 [facility] Hep B, Adol or Pedi 1997-10-28 Completed [facility]ive rsity of Dosage 00:00:00 [facility] Hep B, Adol or Pedi 1997-10-28 Completed [facility] rs[facility] of Dosage 00:00:00 [facility] Hep B, Adol or Pedi 1997-10-28 Completed [facility]ive rsity of Dosage 00:00:00 [facility] Hep B, Adol or Pedi 1997-10-28 Completed Unive rsity of Dosage 00:00:00 [facility] DTaP, Unspecified 1997-06-29 Completed Univers ity of Formulation 00:00:00 [facility] Hib-HbOC 1997-06-29 Completed [facility] 00:00:00 [facility] DTaP, Unspecified 1997-06-29 Completed [facility] it[facility] of Formulation 00:00:00 [facility] Hib-HbOC 1997-06-29 Completed [facility] 00:00:00 [facility] DTaP, Unspecified 1997-06-29 Completed [facility] of Formulation 00:00:00 [facility] Hib-HbOC 1997-06-29 Completed [facility] 00:00:00 [facility] DTaP, Unspecified 1997-06-29 Completed [facility] ity of Formulation 00:00:00 [facility] Hib-HbOC 1997-06-29 Completed [facility] 00:00:00 [facility] DTaP, Unspecified 1997-06-29 Completed [facility] ity of Formulation 00:00:00 [facility] Hib-HbOC 1997-06-29 Completed [facility] 00:00:00 [facility] DTaP, Unspecified 1997-06-29 Completed [facility] ity of Formulation 00:00:00 [facility] Hib-[facility] 1997-06-29 Completed [facility] 00:00:00 [facility] DTaP, Unspecified 1997-06-29 Completed [facility] ity of Formulation 00:00:00 [facility] Hib-HbO 1997-06-29 Completed [facility] 00:00:00 [facility] DTaP, Unspecified 1997-06-29 Completed [facility] ity of Formulation 00:00:00 [facility] Hib-HbOC 1997-06-29 Completed [facility] 00:00:00 [facility] DTaP, Unspecified 1997-06-29 Completed [facility] ity of Formulation 00:00:00 [facility] Hib-HbOC 1997-06-29 Completed [facility] 00:00:00 [facility] DTaP, Unspecified 1997-06-29 Completed [facility] ity of Formulation 00:00:00 [facility] Hib-HbOC 1997-06-29 Completed [facility] 00:00:00 [facility] DTaP, Unspecified 1997-06-29 Completed [facility] ity of Formulation 00:00:00 [facility] Hib-HbOC 1997-06-29 Completed [facility] 00:00:00 [facility] DTaP, Unspecified 1997-06-29 Completed Univers ity of Formulation 00:00:00 [facility] Hib-HbOC 1997-06-29 Completed [facility] 00:00:00 [facility] DTaP, Unspecified 1997-06-29 Completed [facility] ity of Formulation 00:00:00 [facility] Hib-HbOC 1997-06-29 Completed [facility] 00:00:00 [facility] DTaP, Unspecified 1997-06-29 Completed Univers ity of Formulation 00:00:00 [facility] Hib-HbOC 1997-06-29 Completed [facility] 00:00:00 [facility] DTaP, Unspecified 1997-06-29 Completed [facility] ity of Formulation 00:00:00 [facility] Hib-HbOC 1997-06-29 Completed [facility] 00:00:00 [facility] DTaP, Unspecified 1997-06-29 Completed [facility] ity of Formulation 00:00:00 [facility] Hib-HbOC 1997-06-29 Completed [facility] 00:00:00 [facility] DTaP, Unspecified 1997-06-29 Completed [facility] ity of Formulation 00:00:00 [facility] Hib-HbOC 1997-06-29 Completed [facility] 00:00:00 [facility] DTaP, Unspecified 1997-06-29 Completed [facility] ity of Formulation 00:00:00 [facility] Hib-HbOC 1997-06-29 Completed [facility] 00:00:00 [facility] DTaP, Unspecified 1997-06-29 Completed [facility] ity of Formulation 00:00:00 [facility] Hib-HbOC 1997-06-29 Completed [facility] 00:00:00 [facility] Hib-HbOC 1997-04-19 Completed [facility] 00:00:00 [facility] IPV 1997-04-19 Completed [facility] 00:00:00 [facility] DTaP, Unspecified 1997-04-19 Completed [facility]y of Formulation 00:00:00 [facility] Hib-HbOC 1997-04-19 Completed [facility] 00:00:00 [facility] IPV 1997-04-19 Completed [facility] 00:00:00 [facility] DTaP, Unspecified 1997-04-19 Completed [facility]y of Formulation 00:00:00 [facility] Hib-HbOC 1997-04-19 Completed [facility] 00:00:00 [facility] IPV 1997-04-19 Completed [facility] 00:00:00 [facility] DTaP, Unspecified 1997-04-19 Completed [facility] of Formulation 00:00:00 [facility] Hib-HbOC 1997-04-19 Completed [facility] 00:00:00 [facility] IPV 1997-04-19 Completed [facility] 00:00:00 [facility] DTaP, Unspecified 1997-04-19 Completed [facility] of Formulation 00:00:00 [facility] Hib-HbOC 1997-04-19 Completed [facility] 00:00:00 [facility] IPV 1997-04-19 Completed [facility] 00:00:00 [facility] DTaP, Unspecified 1997-04-19 Completed [facility] Formulation 00:00:00 [facility] Hib-HbOC 1997-04-19 Completed [facility] 00:00:00 [facility] IPV 1997-04-19 Completed [facility] 00:00:00 [facility] DTaP, Unspecified 1997-04-19 Completed [facility] of Formulation 00:00:00 [facility] Hib-HbOC 1997-04-19 Completed [facility] 00:00:00 [facility] IPV 1997-04-19 Completed [facility] 00:00:00 [facility] DTaP, Unspecified 1997-04-19 Completed [facility] Formulation 00:00:00 [facility] Hib-HbOC 1997-04-19 Completed [facility] 00:00:00 [facility] IPV 1997-04-19 Completed [facility] 00:00:00 [facility] DTaP, Unspecified 1997-04-19 Completed [facility] Formulation 00:00:00 [facility] Hib-HbOC 1997-04-19 Completed [facility] 00:00:00 [facility] IPV 1997-04-19 Completed [facility] 00:00:00 [facility] DTaP, Unspecified 1997-04-19 Completed [facility] of Formulation 00:00:00 [facility] Hib-HbOC 1997-04-19 Completed [facility] 00:00:00 [facility] IPV 1997-04-19 Completed [facility] 00:00:00 [facility] DTaP, Unspecified 1997-04-19 Completed [facility] of Formulation 00:00:00 [facility] Hib-HbOC 1997-04-19 Completed [facility] 00:00:00 [facility] IPV 1997-04-19 Completed [facility] 00:00:00 [facility] DTaP, Unspecified 1997-04-19 Completed [facility] of Formulation 00:00:00 [facility] Hib-HbOC 1997-04-19 Completed [facility] 00:00:00 [facility] IPV 1997-04-19 Completed [facility] 00:00:00 [facility] DTaP, Unspecified 1997-04-19 Completed [facility] Formulation 00:00:00 [facility] Hib-HbOC 1997-04-19 Completed [facility] 00:00:00 [facility] IPV 1997-04-19 Completed [facility] 00:00:00 [facility] DTaP, Unspecified 1997-04-19 Completed [facility] Formulation 00:00:00 [facility] Hib-HbOC 1997-04-19 Completed [facility] 00:00:00 [facility] IPV 1997-04-19 Completed [facility] 00:00:00 [facility] DTaP, Unspecified 1997-04-19 Completed [facility] Formulation 00:00:00 [facility] Hib-HbOC 1997-04-19 Completed [facility] 00:00:00 [facility] IPV 1997-04-19 Completed [facility] 00:00:00 [facility] DTaP, Unspecified 1997-04-19 Completed [facility] Formulation 00:00:00 [facility] Hib-HbOC 1997-04-19 Completed [facility] 00:00:00 [facility] IPV 1997-04-19 Completed [facility] 00:00:00 [facility] DTaP, Unspecified 1997-04-19 Completed [facility] of Formulation 00:00:00 [facility] Hib-HbOC 1997-04-19 Completed [facility] 00:00:00 [facility] IPV 1997-04-19 Completed [facility] 00:00:00 [facility] DTaP, Unspecified 1997-04-19 Completed [facility] Formulation 00:00:00 [facility] Hib-HbOC 1997-04-19 Completed [facility] 00:00:00 [facility] IPV 1997-04-19 Completed [facility] 00:00:00 [facility] DTaP, Unspecified 1997-04-19 Completed [facility] Formulation 00:00:00 [facility] Hib-HbOC 1997-04-19 Completed [facility] 00:00:00 [facility] IPV 1997-04-19 Completed [facility] 00:00:00 [facility] DTaP, Unspecified 1997-04-19 Completed [facility] Formulation 00:00:00 [facility] Hib-HbOC 1997-02-10 Completed [facility] 00:00:00 [facility] IPV 1997-02-10 Completed [facility] 00:00:00 [facility] DTaP, Unspecified 1997-02-10 Completed [facility] Formulation 00:00:00 [facility] Hib-HbOC 1997-02-10 Completed [facility] 00:00:00 [facility] IPV 1997-02-10 Completed [facility] 00:00:00 [facility] DTaP, Unspecified 1997-02-10 Completed [facility] Formulation 00:00:00 [facility] Hib-HbOC 1997-02-10 Completed [facility] 00:00:00 [facility] IPV 1997-02-10 Completed [facility] 00:00:00 [facility] DTaP, Unspecified 1997-02-10 Completed [facility] Formulation 00:00:00 [facility] Hib-HbOC 1997-02-10 Completed [facility] 00:00:00 [facility] IPV 1997-02-10 Completed [facility] 00:00:00 [facility] DTaP, Unspecified 1997-02-10 Completed [facility] Formulation 00:00:00 [facility] Hib-HbOC 1997-02-10 Completed [facility] 00:00:00 [facility] IPV 1997-02-10 Completed [facility] 00:00:00 [facility] DTaP, Unspecified 1997-02-10 Completed [facility] Formulation 00:00:00 [facility] Hib-HbOC 1997-02-10 Completed [facility] 00:00:00 [facility] IPV 1997-02-10 Completed [facility] 00:00:00 [facility] DTaP, Unspecified 1997-02-10 Completed [facility] Formulation 00:00:00 [facility] Hib-HbOC 1997-02-10 Completed [facility] 00:00:00 [facility] IPV 1997-02-10 Completed [facility] 00:00:00 [facility] DTaP, Unspecified 1997-02-10 Completed [facility] Formulation 00:00:00 [facility] Hib-HbOC 1997-02-10 Completed [facility] 00:00:00 [facility] IPV 1997-02-10 Completed [facility] 00:00:00 [facility] DTaP, Unspecified 1997-02-10 Completed [facility] Formulation 00:00:00 [facility] Hib-HbOC 1997-02-10 Completed [facility] 00:00:00 [facility] IPV 1997-02-10 Completed [facility] 00:00:00 [facility] DTaP, Unspecified 1997-02-10 Completed [facility] Formulation 00:00:00 [facility] Hib-HbOC 1997-02-10 Completed [facility] 00:00:00 [facility] IPV 1997-02-10 Completed [facility] 00:00:00 [facility] DTaP, Unspecified 1997-02-10 Completed [facility] Formulation 00:00:00 [facility] Hib-HbOC 1997-02-10 Completed [facility] 00:00:00 [facility] IPV 1997-02-10 Completed [facility] 00:00:00 [facility] DTaP, Unspecified 1997-02-10 Completed [facility] Formulation 00:00:00 [facility] Hib-HbOC 1997-02-10 Completed [facility] 00:00:00 [facility] IPV 1997-02-10 Completed [facility] 00:00:00 [facility] DTaP, Unspecified 1997-02-10 Completed [facility] Formulation 00:00:00 [facility] Hib-HbOC 1997-02-10 Completed [facility] 00:00:00 [facility] IPV 1997-02-10 Completed [facility] 00:00:00 [facility] DTaP, Unspecified 1997-02-10 Completed [facility] Formulation 00:00:00 [facility] Hib-HbOC 1997-02-10 Completed [facility] 00:00:00 [facility] IPV 1997-02-10 Completed [facility] 00:00:00 [facility] DTaP, Unspecified 1997-02-10 Completed [facility] Formulation 00:00:00 [facility] Hib-HbOC 1997-02-10 Completed [facility] 00:00:00 [facility] IPV 1997-02-10 Completed [facility] 00:00:00 [facility] DTaP, Unspecified 1997-02-10 Completed [facility] Formulation 00:00:00 [facility] Hib-HbOC 1997-02-10 Completed [facility] 00:00:00 [facility] IPV 1997-02-10 Completed [facility] 00:00:00 [facility] DTaP, Unspecified 1997-02-10 Completed [facility] Formulation 00:00:00 [facility] Hib-HbOC 1997-02-10 Completed [facility] 00:00:00 [facility] IPV 1997-02-10 Completed [facility] 00:00:00 [facility] DTaP, Unspecified 1997-02-10 Completed [facility] Formulation 00:00:00 [facility] Hib-HbOC 1997-02-10 Completed [facility] 00:00:00 [facility] IPV 1997-02-10 Completed [facility] 00:00:00 [facility] DTaP, Unspecified 1997-02-10 Completed [facility] Formulation 00:00:00 [facility] Hib-HbOC 1997-02-10 Completed [facility] 00:00:00 [facility] IPV 1997-02-10 Completed [facility] 00:00:00 [facility] DTaP, Unspecified 1997-02-10 Completed [facility] Formulation 00:00:00 [facility] Hep B, Adol or Pedi 1997-01-19 Completed Unive rsity of Dosage 00:00:00 [facility] Hep B, Adol or Pedi 1997-01-19 Completed Un[facility] rsity of Dosage 00:00:00 [facility] Hep B, Adol or Pedi 1997-01-19 Completed [facility] rs[facility] of Dosage 00:00:00 [facility] Hep B, Adol or Pedi 1997-01-19 Completed [facility] rs[facility] of Dosage 00:00:00 [facility] Hep B, Adol or Pedi 1997-01-19 Completed Unive rsity of Dosage 00:00:00 [facility] Hep B, Adol or Pedi 1997-01-19 Completed [facility] rs[facility] of Dosage 00:00:00 [facility] Hep B, Adol or Pedi 1997-01-19 Completed [facility] rs[facility] of Dosage 00:00:00 [facility] Hep B, Adol or Pedi 1997-01-19 Completed Un[facility] rsity of Dosage 00:00:00 [facility] Hep B, Adol or Pedi 1997-01-19 Completed [facility] of Dosage 00:00:00 [facility] Hep B, Adol or Pedi 1997-01-19 Completed [facility] of Dosage 00:00:00 [facility] Hep B, Adol or Pedi 1997-01-19 Completed [facility] of Dosage 00:00:00 [facility] Hep B, Adol or Pedi 1997-01-19 Completed [facility] of Dosage 00:00:00 [facility] Hep B, Adol or Pedi 1997-01-19 Completed [facility] rs[facility] of Dosage 00:00:00 [facility] Hep B, Adol or Pedi 1997-01-19 Completed [facility] of Dosage 00:00:00 [facility] Hep B, Adol or Pedi 1997-01-19 Completed [facility] of Dosage 00:00:00 [facility] Hep B, Adol or Pedi 1997-01-19 Completed [facility] of Dosage 00:00:00 [facility] Hep B, Adol or Pedi 1997-01-19 Completed [facility] of Dosage 00:00:00 [facility] Hep B, Adol or Pedi 1997-01-19 Completed [facility] of Dosage 00:00:00 [facility] Hep B, Adol or Pedi 1997-01-19 Completed [facility] of Dosage 00:00:00 [facility] Hep B, Adol or Pedi 1996 Completed [facility] of Dosage 00:00:00 [facility] Hep B, Adol or Pedi 1996 Completed [facility] of Dosage 00:00:00 [facility] Hep B, Adol or Pedi 1996 Completed [facility] of Dosage 00:00:00 [facility] Hep B, Adol or Pedi 1996 Completed [facility] of Dosage 00:00:00 [facility] Hep B, Adol or Pedi 1996 Completed [facility] of Dosage 00:00:00 [facility] Hep B, Adol or Pedi 1996 Completed [facility] of Dosage 00:00:00 [facility] Hep B, Adol or Pedi 1996 Completed [facility] of Dosage 00:00:00 [facility] Hep B, Adol or Pedi 1996 Completed [facility] of Dosage 00:00:00 [facility] Hep B, Adol or Pedi 1996 Completed [facility] of Dosage 00:00:00 [facility] Hep B, Adol or Pedi 1996 Completed [facility] of Dosage 00:00:00 [facility] Hep B, Adol or Pedi 1996 Completed Unive rsity of Dosage 00:00:00 [facility] Hep B, Adol or Pedi 1996 Completed Unive rsity of Dosage 00:00:00 [facility] Hep B, Adol or Pedi 1996 Completed Unive rsity of Dosage 00:00:00 [facility] Hep B, Adol or Pedi 1996 Completed Unive rsity of Dosage 00:00:00 [facility] Hep B, Adol or Pedi 1996 Completed Unive rsity of Dosage 00:00:00 [facility] Hep B, Adol or Pedi 1996 Completed Unive rsity of Dosage 00:00:00 [facility] Hep B, Adol or Pedi 1996 Completed Unive rsity of Dosage 00:00:00 [facility] Hep B, Adol or Pedi 1996 Completed Unive rsity of Dosage 00:00:00 [facility] Hep B, Adol or Pedi 1996 Completed Unive rsity of Dosage 00:00:00 [facility] Vital Signs Vital Name Observation Time Observation Value Comments Source Systolic blood 2023-04-19 15:37:00 125 mm[Hg] Univer sity of pressure [facility] Diastolic blood 2023-04-19 15:37:00 81 mm[Hg] Unive rsity of pressure [facility] Heart rate 2023-04-19 15:37:00 97 /min [facility] Body height 2023-04-19 15:37:00 170.2 cm [facility] Body weight 2023-04-19 15:37:00 71.487 kg [facility] BMI 2023-04-19 15:37:00 24.68 kg/m2 [facility] Systolic blood 2023-03-29 19:30:00 113 mm[Hg] Univer sity of pressure [facility] Diastolic blood 2023-03-29 19:30:00 69 mm[Hg] Unive rsity of pressure [facility] Heart rate 2023-03-29 19:30:00 88 /min [facility] Respiratory rate 2023-03-29 19:30:00 18 /min [facility] Body weight 2023-03-29 19:30:00 69.4 kg [facility] BMI 2023-03-29 19:30:00 23.96 kg/m2 [facility] Systolic blood 2023-03-22 13:59:00 111 mm[Hg] Univer sity of pressure [facility] Diastolic blood 2023-03-22 13:59:00 73 mm[Hg] Unive rsity of pressure [facility] Heart rate 2023-03-22 13:59:00 73 /min [facility] Body temperature 2023-03-22 13:59:00 36.56 Mariella [facility] Body height 2023-03-22 13:59:00 170.2 cm [facility] [place] [facility] [place] Body weight 2023-03-22 13:59:00 70.897 kg [facility] BMI 2023-03-22 13:59:00 24.48 kg/m2 [facility] Systolic blood 2023-03-07 02:54:00 125 mm[Hg] Univer sity of pressure [facility] Diastolic blood 2023-03-07 02:54:00 84 mm[Hg] Unive rsity of pressure [facility] Branch Heart rate 2023-03-07 02:54:00 107 /min [facility] Body temperature 2023-03-07 02:54:00 37 Mariella Univ ersity of [facility] Respiratory rate 2023-03-07 02:54:00 18 /min [facility] [place] Body height 2023-03-07 02:54:00 170.2 cm [facility] Body weight 2023-03-07 02:54:00 74.844 kg [facility] BMI 2023-03-07 02:54:00 25.84 kg/m2 [facility] [place] Oxygen saturation in 2023-03-07 02:54:00 97 /min University Arterial blood by [facility] Pulse oximetry Branch Systolic blood 2022-12-20 19:25:00 121 mm[Hg] Univer sity of pressure [facility] Diastolic blood 2022-12-20 19:25:00 73 mm[Hg] Unive rsity of pressure [facility] Heart rate 2022-12-20 19:25:00 91 /min [facility] Body temperature 2022-12-20 19:25:00 37 Mariella [facility] Respiratory rate 2022-12-20 19:25:00 18 /min [facility] Body height 2022-12-20 19:25:00 170.2 cm [facility] Body weight 2022-12-20 19:25:00 72.15 kg [facility] BMI 2022-12-20 19:25:00 24.91 kg/m2 [facility] Systolic blood 2022-07-18 19:19:00 129 mm[Hg] Univer sity of pressure [facility] Diastolic blood 2022-07-18 19:19:00 87 mm[Hg] Unive rsity of pressure [facility] Heart rate 2022-07-18 19:19:00 101 /min [facility] Body temperature 2022-07-18 19:19:00 36.67 Mariella [facility] Respiratory rate 2022-07-18 19:19:00 18 /min [facility] Body height 2022-07-18 19:19:00 170.2 cm [facility] Body weight 2022-07-18 19:19:00 73.71 kg [facility] BMI 2022-07-18 19:19:00 25.45 kg/m2 [facility] Systolic blood 2021-12-14 13:58:00 115 mm[Hg] Univer sity of pressure [facility] Diastolic blood 2021-12-14 13:58:00 65 mm[Hg] Unive rsity of pressure [facility] Heart rate 2021-12-14 13:58:00 82 /min [facility] Body temperature 2021-12-14 13:58:00 36.5 Mariella [facility] Respiratory rate 2021-12-14 13:58:00 16 /min [facility] Body height 2021-12-14 13:58:00 170.2 cm [facility] Body weight 2021-12-14 13:58:00 74.39 kg [facility] BMI 2021-12-14 13:58:00 25.69 kg/m2 [facility] Procedures Procedure Date / Time Performing Clinician Source Performed POCT URINALYSIS W/O 2023-04-19 00:00:00 Marcia Ocampo [facility] SPECIFIC [facility] GLYCOSYLATED HEMOGLOBIN 2023-03-27 16:12:00 Marcia Ocampo [facility] (A1C) [facility] <14 WEEKS US 2023-03-22 15:38:34 Marcia Ocampo [facility] SCANNED LAB RESULTS 2023-03-22 05:01:00 [facility] W/O 2023-03-22 00:00:00 Marcia Ocampo [facility] URINALYSIS 2023-03-07 03:08:00 Ramirez Sanchez [facility] POCT TEST 2023-03-07 03:07:00 Ramirez Sanhcez [facility] NOTICE OF PRIVACY 2023-03-07 02:49:46 Doctor Unassigned, No [facility] PRACTICES [facility] CONSENT/REFUSAL FOR 2023-03-07 02:47:26 [facility] ASSIGNMENT OF BENEFITS 2022-12-20 19:06:39 Doctor Unassigned, No [facility] FLU VACC ([phone]), 2021-12-14 14:41:01 German Back [facility] [place] 6+ MONTHS, IM, QUAD [facility] ch Encounters Start End Encounter Admission Attending Care Care Encounter Source Date/Time Date/Time Type Type Clinicians Facility Department ID 2021-07-06 Emergency [facility] [id number] Univers [facility] 2023-05-17 2023-05-17 Outpatient R MARCIA OCAMPO [facility] [id number] Univers 11:15:00 11:15:00 [facility] 2023-04-30 2023-04-30 Outpatient R [facility] [id number] Univers 07:30:00 07:30:00 ity of [facility] 2023-04-19 2023-04-19 Routine Marcia Ocampo [facility] 1.2.840.114 [id number] Univers 11:00:00 11:06:57 Bryce CHANG 350.1.13.10 i ty of Visit [facility] 4.2.7.2.686 [facility] s [facility] [id number] [address] 2023-04-19 2023-04-19 Outpatient R DAMARIS [facility] [id number] Univers 11:00:00 11:06:57 ity of [facility] 2023-04-01 2023-04-01 Telephone Marcia Ocampo [facility] 1.2.840.114 [id number] Univers 00:00:00 00:00:00 Bryce CHANG 350.1.13.10 it y of PEDIATRIC 4.2.7.2.686 [facility] [id number] [address] 2023-03-29 2023-03-29 Nurse Nurse, [facility] 1.2.840.114 [id number] Univers 14:00:00 14:47:28 Visit Marcia Ocampo Bryce LIANG 350.1.13.10 ity of [place] 4.2.7.2.686 [facility] s PROFESSIO [phone] Ca dical [address] 2023-03-29 2023-03-29 Outpatient R DAMARIS MARCIA [facility] [id number] Univers 14:00:00 14:47:28 ity [facility] 2023-03-29 2023-03-29 Telephone Karlos ALANDREI [facility] 1.2.840.114 [id number] Univers 00:00:00 00:00:00 Leia CHANG 350.1.13.10 it y of PEDIATRIC 4.2.7.2.[address] [facility] [id number] [address] 2023-03-27 2023-03-27 [facility] Operator [facility], Juan Carlos - Juan A [facility] 1.2.840.1 [id number] Univers 13:00:00 13:00:00 Visit Ocampo, Marcia Cam HEALTH 350.1.13.10 ity of [place] 4.2.7.2.686 [place] ANGELA?BLEA [id number] Ca soila [address] OFFICE [facility] 2023-03-27 2023-03-27 Outpatient R MARCIA OCAMPO [facility] [id number] Univers 13:00:00 11:28:09 ity [facility] 2023-03-27 2023-03-27 Outpatient R [facility] [id number] Univers 11:00:00 11:00:00 ity of [facility] 2023-03-26 2023-03-26 Outpatient R MARCIA OCAMPO [facility] [id number] Univers 08:00:00 10:57:52 ity [facility] 2023-03-26 2023-03-26 Dixonac Operator Lab, [facility] 1.2.840.1 [id number] Univers 08:00:00 10:57:52 Visit Marcia Ocampo [employer] 350.1.13.10 ity of [place] 4.2.7.2.686 [place] ANGELA?BLEA [phone] Ca soila [address] 2023-03-26 2023-03-26 Case Marcia Ocampo [facility] 1.2.138.648 [id number] Univers 00:00:00 00:00:00 Management Cam [place] 350.1.13.10 it[place].2.686 [place] [id number] [address] 2023-03-26 2023-03-26 Telephone Marcia Ocampo [facility] 1.2.840.114 [id number] Univers 00:00:00 00:00:00 Cam CHARLENE 350.1.13.10 it y [place] [id number] [address] 2023-03-25 2023-03-25 Telephone Marcia Ocampo [facility] 1.2.840.114 [id number] Univers 00:00:00 00:00:00 Cam [place] 350.1.13.10 i ty of [place].7.2.686 [place] [phone] Ca dical NAL [address] [place] [address] 2023-03-25 2023-03-25 Telephone Marcia Ocampo [facility] 1.2.840.114 [id number] Univers 00:00:00 00:00:00 Bryce CHANG 350.1.13.10 it y of [place]2.[place] [id number] [address] 2023-03-23 2023-03-23 Case Marcia Ocampo [facility] 1.2.651.170 [id number] Univers 00:00:00 00:00:00 Management Cam GARTH 350.1.13.10 it[place] of [place].7.2.686 [place] [phone] [address] 2023-03-22 2023-03-22 Dixon[facility] Operator Lab, Ang - [facility] 1.2.840.1 14 [id number] Univers 10:45:00 11:00:00 Visit Marcia Ocampo Bryce [facility] 350.1.13.10 ity of [place] 4.2.7.2.686 [place] ANGELA?BLEA [phone] [address] OFFICE [facility] 2023-03-22 2023-03-22 Outpatient R MARCIA OCAMPO [facility] [id number] Univers 09:00:00 09:34:31 ity of [facility] 2023-03-22 2023-03-22 Initial Marcia Ocampo [facility] 1.2.840.114 [id number] Univers 09:00:00 09:34:31 Cam CHARLENE 350.1.13.10 i ty of Visit [place] [id number] [address] 2023-03-22 2023-03-22 Orders Doctor CHARLES 1.2.840.114 [id number] Univers 00:00:00 00:00:00 Only Unassigned, FRANCO 350.1.13.10 ity of [place] [facility] 4.2.7.2.686 [place] as [id number] [address] 2023-03-06 2023-03-06 Emergency X VASUT, [facility] ERT [id number] Univers 21:58:00 23:40:00 RAMIREZ [facility] 2023-03-06 2023-03-06 Emergency Vasut, [facility] 1.2.682.105 [id number] Univers 21:58:00 23:40:00 Ramirez Chu ABERDE[place] 350.1.13.10 i ty of [place] 4.2.7.2.686 [facility] [phone] [facility] [address] [place] 2023-03-06 2023-03-06 Outpatient R ИВАН [facility] [id number] Univers 13:00:00 13:00:00 [facility]ist [facility] 2022-12-20 2022-12-20 Outpatient [facility] [id number] Univers 14:30:00 15:15:47 EDITAMethodist [facility] 2022-12-20 2022-12-20 Office [facility] 1.2.840.114 [id number] Univers 14:30:00 15:15:47 Visit Edita Stanford [employer] 350.1.13.10 i ty of [facility] 4.2.7.2.686 [place] as MATERNAL [id number] [facility] ical & CHILD [address] [place] [address] 2022-12-20 2022-12-20 Orders Doctor CHARLES 1.2.840.114 [id number] Univers 00:00:00 00:00:00 Only Unassigned, FRANCO 350.1.13.10 ity of [place] [facility] 4.2.7.2.686 [place] as [id number] [facility] [address] [place] 2022-12-14 2022-12-14 Outpatient R [facility] [id number] Univers 09:15:00 09:15:00 SURJIT belle [facility] 2022-07-18 2022-07-18 Outpatient R [facility] [id number] Univers 13:00:00 13:45:54 SURJIT belle [facility] 2022-07-18 2022-07-18 Office [facility] 1.2.175.266 [id number] Univers 13:00:00 13:45:54 Visit Surjit C [employer] 350.1.13.10 ity of [facility] 4.2.7.2.686 [place] MATERNAL [id number] [facility] ical & [address] 2021-12-14 2021-12-14 Outpatient [facility] [id number] Univers 08:45:00 10:01:04 [facility] villatoro o [facility] 2021-12-14 2021-12-14 [facility] 1.2.840.114 [id number] Univers 08:45:00 10:01:04 Visit Lizbetbrenda Griffith [employer]PER[employer] 350.1.13.10 ity of [facility] 4.2.7.2.686 [place] MATERNAL [id number] [facility] & CHILD [address] [place] [address] 2021-12-14 2021-12-14 Outpatient [facility] [id number] Univers 08:45:00 10:01:04 LIZBETLYUBOV villatoro o [facility] 2021-12-14 2021-12-14 Orders Doctor SOTO 1.2.840.114 [id number] Univers 00:00:00 00:00:00 Only Unassigned, FRANCO 350.1.13.10 ity of [place] [facility] 4.2.7.2.686 [place] as [phone] [address] 2021-12-12 2021-12-12 Outpatient Ncaho BACK [facility] [id number] Univers 09:30:00 09:30:00 GERMAN villatoro o [facility] 2021-12-12 2021-12-12 Outpatient Nacho [facility] [id number] Univers 09:30:00 09:30:00 GERMAN villatoro o [facility] 2021-12-12 2021-12-12 Outpatient Nacho BACK [facility] [id number] Univers 09:30:00 09:30:00 GERMAN waters [facility] 2021-08-08 2021-08-08 Outpatient Nacho [facility] [id number] Univers 09:30:00 09:30:00 SKYLER villatoro [facility] 2021-08-07 2021-08-07 [facility] [id number] Univers 14:30:00 15:15:07 SKYLER villatoro [facility] 2021-08-07 2021-08-07 Office [facility] [id number] Univers 14:21:07 15:15:07 Visit Skyler Stella [employer] SUPER[employer] 350.1.13.10 it y of [facility] 4.2.7.2.686 [place] as MATERNAL [phone] Med ical & CHILD [address] [place] [address] 2021-08-07 2021-08-07 Orders Doctor CHARLES 1.2.840.114 [id number] [facility] 00:00:00 00:00:00 Only Unassigned, FRANCO 350.1.13.10 ity of [place] [facility] 4.2.7.2.686 [place] as [id number] [address] 2021-07-20 2021-07-20 Outpatient R LINDEN [facility] [id number] Univers 09:30:00 09:30:00 LORENZO bloombutch o f [facility] 2021-07-14 2021-07-14 Telephone [facility] 1.2.840.114 [id number] Univers 00:00:00 00:00:00 Surjit Monique [employer] SUPER[employer] 350.1.13.10 ity of [facility] 4.2.7.2.686 [place] MATERNAL [phone] Med ical & CHILD [address] [place] [address] 2020-12-08 2020-12-08 Telephone [facility] 1.2.120.748 [id number] 00:00:00 00:00:00 Sheryla R [employer]PER[employer] 350.1.13.10 [facility] 4.2.7.2.686 MATERNAL [phone] & CHILD [address] [place] [address] 2020-12-08 2020-12-08 [facility]phone [facility] [id number] Univers 00:00:00 00:00:00 Sheryla R [employer]PER[employer] 350.1.13.10 ity of [facility] 4.2.7.2.686 [place] MATERNAL [id number] [facility] ical & CHILD [address] [place] [address] 2020-12-07 2020-12-07 Office Wong ALANDREI 1.2.840.114 [id number] Univers 09:16:24 10:08:04 Visit German Griffith [employer] SUPERVISOR 350.1.13.10 ity of [facility] 4.2.7.2.686 [place] MATERNAL [id number] [facility] ical & CHILD [address] [place] [address] 2020-12-07 2020-12-07 Outpatient R WONG [facility] [id number] Univers 09:00:00 09:00:00 GERMAN belle [facility] 2020-12-07 2020-12-07 Orders Doctor CHARLES 1.2.840.114 [id number] Univers 00:00:00 00:00:00 Only Unassigned, FRANCO 350.1.13.10 ity of [place] [facility] 4.2.7.2.686 [place] as [phone] [address] 2020-05-02 2020-05-02 Telephone Wong [facility] [id number] Univers 00:00:00 00:00:00 German Griffith [employer] SUPERVISOR 350.1.13.10 ity of [facility] 4.2.7.2.686 [place] MATERNAL [phone] [facility] & CHILD [address] [place] [address] 2020-02-12 2020-02-12 [facility] 1.2 .840.114 [id number] Univers 12:56:01 13:27:54 Visit BackGerman [employer] SUPERVISOR 350.1.13.10 ity of [facility] 4.2.7.2.686 [place] as MATERNAL [phone] [facility] & CHILD [address] [place] [address] 2020-02-12 2020-02-12 Outpatient R WONG ALANDREI [facility] [id number] Univers 13:00:00 13:00:00 GERMAN belle [facility] 2020-02-11 2020-02-11 Telephone Wong ALANDREI 1.2.501.342 [id number] Univers 00:00:00 00:00:00 Rosjohnnynda R [employer] SUPERVISOR 350.1.13.10 ity of [facility] 4.2.7.2.686 [place] MATERNAL [id number] [facility] ical & CHILD [address] [place] [address] 2020-02-11 2020-02-11 Telephone [facility] 1.2.840.114 [id number] Univers 00:00:00 00:00:00 Surjit Monique [employer] SUPERVISOR 350.1.13.10 ity of [facility] 4.2.7.2.686 [place] MATERNAL [id number] [facility] & CHILD [address] [place] [address] 2020-02-09 2020-02-09 Outpatient R WONG [facility] [id number] Univers 14:00:00 14:00:00 GERMAN ity o f [facility] 2020-02-03 2020-02-03 Outpatient R [facility] [id number] Univers 13:00:00 13:00:00 ity of [facility] 2019-12-31 2019-12-31 Emergency [facility] [id number] Univers 00:39:27 01:01:00 Monica Justyn Downing 350.1.13.10 ity [facility] 4.2.7.2.686 [facility] [phone] [address] 2019-10-19 2019-10-19 [facility]phone [facility] [id number] Univers 00:00:00 00:00:00 Rosjohnnynda R [employer] SUPERVISOR 350.1.13.10 ity of [facility] 4.2.7.2.686 [place] MATERNAL [phone] [facility] & CHILD [address] [place] [address] 2019-10-16 2019-10-16 Office [facility] 1.2.840.114 [id number] Univers 12:48:54 14:02:54 Visit Sheryla R [employer] SUPERVISOR 350.1.13.10 ity of [facility] 4.2.7.2.686 [place] MATERNAL [phone] [facility] & CHILD [address] [place] [address] 2018-02-25 2018-02-25 Outpatient [facility] [id number] Common 08:45:00 08:45:00 Gozent [facility] it [facility] Results Test Description Test Time Test Comments Results Result Comments Source POCT URINALYSIS W/O SPECIFIC GRAVITY 2023-04-19 15:36:00 Test Item Value Reference Range Interpretation Comme nts POCT PH U (test code = 3254) n/a 5-8 POCT U LEUK EST (test code = 3263) n/a Negative - Negative POCT U NIT (test code = 3262) n/a Negative - Negative POCT U PROT (test code = 3259) Negative Negative - Negative POCT U GLU (test code = 3256) Normal Negative - Negative POCT U KETONE (test code = 3258) n/a Negative - Negative POCT U BLD (test code = 3257) n/a Negative - Negative [facility]A1C)2023-03-27 20:21:55 Test Item Value Reference Range Interpretation Comments HGB A1C (test code = 4.8 % 4.0-5.7 4548-4) ESTEPHANIA (test code = ESTEPHANIA) Reference RangesNormal: <5.7%Prediabetes: 5.7 - 6.4%Diabetes: > 6.5% Lab Interpretation (test Normal code = 86684-8) [facility] URINALYSIS W/O SPECIFIC [id number] 14:01:00 Test Item Value Reference Range Interpretation Comments POCT PH U (test code = 3254) n/a 5-8 POCT U LEUK EST (test code = n/a Negative - Negative 3263) POCT U NIT (test code = 3262) n/a Negative - Negative POCT U PROT (test code = 3259) Negative Negative - Negative POCT U GLU (test code = 3256) Normal Negative - Negative POCT U KETONE (test code = 3258) n/a Negative - Negative POCT U BLD (test code = 3257) n/a Negative - Negative [facility] [id number] 03:07:00 Test Item Value Reference Range Interpretation Comments POCT PREG (test code = 1605) Positive On board controls acceptable with Yes C Line (test code = 3574) POCT PREG LOT # (test code = [id number]) POCT PREG TEST DATE (test 06/14/2024 code = 3576) Lab Interpretation (test code = Normal 75948-4) [facility] Notes Date/Time Note Provider Source 2023-04-19 [facility] 11:00:00-00:00 Images from the original note were not included. Age: [age] year old GA: 16w2d Doing well without concerns today History of depression/anxiety - was on Sertraline about 5 to 6 years ago. Curr ently not on any medication -EPDS 0. Denies SI/HI today. -We will continue to monitor. History of drug use in the past -History of intentional overdose on synthetic ma rijuana in 2018 -Has stopped using marijuana since 03/24/23 -Will get UDS at next visit Family history of factor V Leiden mutation -Patient tested negative for factor V Leiden mut ation A1DM -Hemoglobin A1c 4.8 on 03/27/2023 -Glucose log reviewed, controlled -Continue diabetic diet New OB labs within normal limits Panorama low risk female Horizon negative Maternal serum AFP ordered Anatomy scan ordered Follow-up in 4 weeks for visit Electronically signed by Marcia Ocampo MD at 12:00 PM CDT 2023-04-01 Formatting of this note might be differe nt from the original. Linsey Artis MA [facility] 14:27:08-00:00 Fax received from [employer] requesting a prior authorization for the test strips. Spoke with pharmacy and confirmed all the supplies have been picked up at no charge, PA not required. 2023-03-29 Formatting of this note might be differe nt from the original. Leia Everett RN [facility] 16:16:43-00:00 Prema results received via fax. Panorama- low risk, female Horizon- negative for 14 out of 14 diseases Spoke with patient, name and verified. Patient informed of results including gender. Results signed, will scan and upload a copy to E the medical center. Leia Everett RN 03/29/2023 4:17 PM Electronically signed by Leia Everett RN at 0 03/29/2023 4:17 PM CDT 2023-03-27 Formatting of this note is different from the or iginal. [facility] 13:00:00-00:00 Images from the original note were not included. Venipuncture collection perf ormed by clean technique on the right anticubitus. Total of 1 attempts were made. Slight pressure and a bandage/dressing were applied to the site(s). The patient experienced no complications. The follow ing specimens were processed according to instructions and sent to [facility] laboratories per lab order on 03/27/2023 LT BLUE SST RED LAV 1 PPT DK GREEN (LiHep) DK GREEN (SodH) JAMIL DK BLUE (K2) DK BLUE (S) ACD Blood Culture NIPT/NTD Electronically signed by Abdias Ramírez at 03/09 11:13 AM CDT 2023-03-27 Formatting of this note might be differe nt from the original. Edith Mills [facility] 09:17:43-00:00 Name and verified. Pt ad vised of results and plan of care as stated below per provider. 3 hr abnormal: hba1c ordered. Please give patient an appointment for diabetic teaching with RN. 2000 kcal diab RN etic diet. Keep appointment with me as scheduled on 04/19/23 and bring glucose log then. Pt verbalized understanding. Appts made for lab and nurse visit. Glucose supplies sent to pharmacy. EDITH MILLS RN 03/27/2023 9:18 AM 2023-03-26 Formatting of this note might be differe nt from the original. Taurus Parker [facility] 16:49:12-00:00 Pt called and would like teresa eone to go over her results with her. Please advise Electronically signed by Taurus Parker at 03/09 4:49 PM CDT
--- NOTE | 2023-04-20 20:59 | ER ---
Nurse's Notes [facility] Name: Mitra Melendez Age: 27 yrs Sex: Female : 1995 Arrival Date: 04/20/2023 Time: 19:16 Bed 12 Private MD: Diagnosis: Cutaneous abscess of buttock;Cutaneous abscess of groin Presentation: 04/20 19:25 Chief complaint: Patient states: abscess on left inner buttock reports frequent ss episodes requiring antibiotics and I \T\ D currently 16 weeks . Coronavirus screen: Vaccine status: Patient reports being unvaccinated. Ebola Screen: Patient negative for fever greater than or equal to 101.5 degrees Fahrenheit, and additional compatible Ebola Virus Disease symptoms. Initial Sepsis Screen: Does the patient meet any 2 criteria? No. Patient's initial sepsis screen is negative. Does the patient have a suspected source of infection? Yes: Skin breakdown/wound. Risk Assessment: Do you want to hurt yourself or someone else? Patient reports no desire to harm self or others. Note pt reports area has been inflamed x 3 months. Onset of symptoms. 19:25 Method Of Arrival: Ambulatory ss 19:25 Acuity: ELBERT 3 ss Triage Assessment: 19:29 General: Appears in no apparent distress. comfortable, Behavior is calm, cooperative. ss Pain: Complains of pain in left gluteus amara. 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 - Social history:: Smoking status: Patient reports the use of cigarette tobacco products, smokes one pack cigarettes per day. Screenin:40 Abuse screen: Denies threats or abuse. Denies injuries from another. Nutritional eb1 screening: No deficits noted. Tuberculosis screening: No symptoms or risk factors identified. 21:41 [facility] ED Fall Risk Assessment (Adult) Score/Fall Risk Level 0 - 2 = Low Risk eb1 Oriented to surroundings, Maintained a safe environment. Assessment: 20:52 General: Appears in no apparent distress. uncomfortable, well groomed, well developed, eb1 well nourished, Behavior is calm, cooperative, appropriate for age, Denies fever, feeling ill, fatigue, chills. Pain: Complains of pain in groin Pain currently is 6 out of 10 on a pain scale. Neuro: No deficits noted. Cardiovascular: No deficits noted. Respiratory: No deficits noted. GI: No deficits noted. No signs and/or symptoms were reported involving the gastrointestinal system. : No deficits noted. No signs and/or symptoms were reported regarding the genitourinary system. EENT: No deficits noted. No signs and/or symptoms were reported regarding the EENT system. Derm: No deficits noted. No signs and/or symptoms reported regarding the dermatologic system. Musculoskeletal: No deficits noted. No signs and/or symptoms reported regarding the musculoskeletal system. 21:40 Reassessment: Patient appears in no apparent distress at this time. Patient and/or eb1 family updated on plan of care and expected duration. Pain level reassessed. Patient states feeling better. Patient states symptoms have improved. Vital Signs: 19:25 BP 143 / 76; Pulse 106; Resp 16; Temp 98(O); Pulse Ox 99% on R/A; Weight 70.31 kg (R); ss Height 5 ft. 7 in. ; Pain 7/10; 19:25 Body Mass Index 24.28 (70.31 kg, 170.18 cm) ss 19:25 Pain Scale: Adult ss ED Course: 19:25 Patient arrived in ED. ss 19:27 Karni Cantu MD is Attending Physician. sd2 19:28 Triage completed. ss 21:40 Arm band placed on right wrist. eb1 21:40 No provider procedures requiring assistance completed. eb1 21:41 Patient has correct armband on for positive identification. Bed in low position. Call eb1 light in reach. Side rails up X2. 21:41 Patient did not have IV access during this emergency room visit. eb1 21:42 Provided Education on: returning to ED if she begins having fevers or chills. Take eb1 antibiotics with food.. Administered Medications: 21:33 Drug: Clindamycin PO 300 mg Route: PO; eb1 Medication: 21:42 VIS not applicable for this client. eb1 Outcome: 20:59 Discharge ordered by . sd2 21:41 Discharged to home ambulatory. eb1 21:41 Condition: good 21:41 Discharge instructions given to patient, Instructed on discharge instructions, Demonstrated understanding of instructions, follow-up care, medications, Prescriptions given X 1. 21:42 Patient left the ED. eb1 Signatures: Samira Crespo RN RN ss Heavenly Ty RN RN eb1 Karin Cantu MD MD sd2
--- NOTE | 2023-04-20 21:00 | EDPHYS ---
Physician Documentation [facility] Name: Mitra Melendez Age: 27 yrs Sex: Female : 1995 Arrival Date: 04/20/2023 Time: 19:16 Bed 12 Private MD: ED Physician Karin Cantu HPI: 04/20 20:53 This 27 yrs old Female presents to ER via Ambulatory with complaints of abscess. sd2 20:53 27 yo F presents with CC of left gluteal abscess that has been present for 2-3 months. sd2 Has extensive history of abscesses with Staph. States the area has become more irritated recently. She is also 16 weeks and states her OB told her to stop shaving the area which she did but it has not improved. Denies fevers, vomiting or other systemic symptoms. Also has a small abscess to her right inner thigh area. . 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 - Social history:: Smoking status: Patient reports the use of cigarette tobacco products, smokes one pack cigarettes per day. ROS: 20:53 Constitutional: Negative for fever, chills, and weight loss, Eyes: Negative for injury, sd2 pain, redness, and discharge, ENT: Negative for injury, pain, and discharge, Cardiovascular: Negative for chest pain, palpitations, and edema, Respiratory: Negative for shortness of breath, cough, wheezing. Abdomen/GI: Negative for abdominal pain, nausea, vomiting, diarrhea. Skin: Negative for injury, rash, and discoloration, Positive for abscess Exam: 20:53 Constitutional: This is a well developed, well nourished patient who is awake, alert, sd2 and in no acute distress. Head/Face: Normocephalic, atraumatic. Eyes: EOMI, normal conjunctiva bilaterally Abdomen/GI: Soft, non-tender, with normal bowel sounds. No guarding or rebound. No evidence of tenderness throughout. Pelvic Exam: Normal external genitalia aside from small indurated area noted to R inner thigh and left gluteal area with 3x3 cm area of induration with no associated erythema or fluctuance. Skin: Warm, dry with normal turgor. See Pelvic exam. MS/ Extremity: Pulses equal, no cyanosis. Neurovascular intact. Full, normal range of motion. Ambulatory without difficulty. Psych: Awake, alert, with orientation to person, place and time. Behavior, mood, and affect are within normal limits. Vital Signs: 19:25 BP 143 / 76; Pulse 106; Resp 16; Temp 98(O); Pulse Ox 99% on R/A; Weight 70.31 kg (R); ss Height 5 ft. 7 in. ; Pain 7/10; 19:25 Body Mass Index 24.28 (70.31 kg, 170.18 cm) ss 19:25 Pain Scale: Adult ss MDM: 20:53 Patient medically screened. sd2 20:53 Differential Diagnosis abscess, cellulitis, folliculitis among others. Data reviewed: sd2 vital signs, nurses notes. Care significantly affected by the following chronic conditions: Staph. Care significantly affected by the following Social Determinants of Health: Misuse of alcohol and/or drugs. Counseling: I had a detailed discussion with the patient and/or guardian regarding: the historical points, exam findings, and any diagnostic results supporting the discharge/admit diagnosis, the need for outpatient follow up, to return to the emergency department if symptoms worsen or persist or if there are any questions or concerns that arise at home. ED course: Patient's clinical exam is not consistent with a clearly drainable abscess. I did offer I\T\D but the patient is in favor of trying antibiotics alone first. Neither abscess has any significant fluctuance to indicate a need for emergent I\T\D at this time. She has no systemic symptoms to indicate sepsis or worsening of infection. She is comfortable with plan for discharge and outpt follow up with her OBGYN. Verbalizes understanding of discharge plan and strict return precautions.. Administered Medications: 21:33 Drug: Clindamycin PO 300 mg Route: PO; eb1 Disposition Summary: 04/20/23 20:59 Discharge Ordered Location: Home sd2 Problem: an ongoing problem sd2 Symptoms: are unchanged sd2 Condition: Stable sd2 Diagnosis - Cutaneous abscess of buttock sd2 - Cutaneous abscess of groin sd2 Followup: sd2 - With: Private Physician - When: 2 - 3 days - Reason: Wound Recheck, Recheck today's complaints, Continuance of care, Re-evaluation by your physician Discharge Instructions: - Discharge Summary Sheet sd2 - Skin Abscess sd2 Forms: - Medication Reconciliation Form sd2 - Thank You Letter sd2 - Antibiotic Education sd2 - Prescription Opioid Use sd2 - Patient Portal Instructions sd2 - Leadership Thank You Letter sd2 Prescriptions: - Clindamycin HCl 300 mg Oral Capsule - take 1 capsule by ORAL route every 6 hours for 10 days; 40 capsule; Refills: 0, sd2 Product Selection Permitted Signatures: Samira Crespo, RN Heavenly Moser RN RN eb1 Karin Cantu MD MD sd2
[2023-04-20 21:48] VITALS: BP 143/76; TEMP 98; O2SAT 99
== END 2023-04-20 21:42 | disposition home or self-care (01) ==
LOC: ER 19:16
DX: O99.712 Diseases of the skin and subcutaneous tissue complicating pregnancy, second trimester (principal); L02.31 Cutaneous abscess of buttock; L02.214 Cutaneous abscess of groin; O99.332 Smoking (tobacco) complicating pregnancy, second trimester; F17.210 Nicotine dependence, cigarettes, uncomplicated; Z3A.16 16 weeks gestation of pregnancy
CPT/HCPCS: 99283

== ENCOUNTER → 2023-09-05 | Emergency (ER) | payer OTHER ==
[~2023-09-05] MED LIST changes: -BUPIVACAINE 0.5% PF 10 ML VIAL ONE; -CEFAZOLIN/SWI 1gm 1 GM/10 ML SYR ONE; +DIPHENHYDRAMINE 50 MG/ML VIAL ONE; -LIDOCAINE 1% MPF 5 ML VIAL ONE; +METOCLOPRAMIDE 10 MG/2mL INJ ONE; -MUPIROCIN 2% OINT 22GM TUBE TOP ONE; +NA CHLORIDE 0.9% 1,000 ML ONE; -PROPOFOL 200 MG/20 ML VIAL IV ONE; -Ringers Lactate 1,000 ML IV ONE
--- OUTSIDE RECORDS SUMMARY | 2023-09-05 14:43 | XMS REPORT | Continuity of Care Document ---
Author Name Unknown Address [address] [place] [address] [facility] thconnect Address [address] [place] [address] Care Team Providers Care Vice President Of Communications Name Role Phone [email or web address] Attending Clinician German Mcdaniel Attending Clinician [phone] [email or web address] Admitting Clinician Raphaela ble Problems Condition Name Condition Details Condition Category Status Onset Date Resolution Date Last Treatment Date Treating Clinician Comments Source Paronychia of finger of left hand Paronychia of finger of left hand Diagnosis Active [facility] 23 weeks gestation of 23 weeks gestation of Diagnosis Active [facility] Medications Ordered Medication Name Filled Medication Name Start Date Stop Date Current Medication? Ordering Clinician Indication Dosage Frequency Signature (SIG) Comments Components Source Yes Florencio Mitchell 1 tablet [facility] Encounters Start Date/Time End Date/Time Encounter Type Admission Type Attending Clinicians Care Facility Care Department Encounter ID Source 2023-07-10 00:00:00 2023-07-10 00:00:00 Outpatient [email or web address] PRIV PRIV [id number] [facility] 2023-06-17 09:16:42 2023-06-17 09:16:42 Outpatient SFA SFA [id number] John Beckman 2020-12-08 00:00:00 2020-12-08 00:00:00 Telephone German Puckett [facility] CREDIT COUNSELOR [facility] [id number] 2018-02-25 08:45:00 2018-02-25 08:45:00 Outpatient Quincy friedman [facility] Medicine Erin [facility] Medicine [id number] [facility]
[2023-09-05 15:56] LABS: Absolute Lymphocytes (CBC) 0.2 K/uL (0.7-4.9); Lymphocytes % 2.6 % (15.3-44.8); MPV 9.1 fL (7.6-11.3); Platelets 134 thou/uL (152-406); RBC Red Blood Cell Count 3.89 M/uL (3.86-4.86)
[2023-09-05 16:05] LABS: Bilirubin Total 0.7 mg/dL (0.2-1.0); Potassium 3.7 mEq/L (3.5-5.1); Protein, Total 7.1 g/dL (6.4-8.2)
[2023-09-05 16:13] LABS: SARS-COV-2 RT PCR POSITIVE (NEGATIVE)
[2023-09-05 17:18] LABS: Blood Morphology Comment NOT SEEN (NOT SEEN); Platelet Estimate DECR; White Blood Cell Scan OK (OK)
--- NOTE | 2023-09-05 17:19 | EDPHYS ---
Physician Documentation [facility] Name: Mitra Melendez Age: 27 yrs Sex: Female : 1995 Arrival Date: 09/05/2023 Time: 14:39 Bed 13 Private MD: ED Physician Mike Sandhu HPI: 09/05 15:23 This 27 yrs old Female presents to ER via Ambulatory with complaints of 36 ec2 wks , Flu Symptoms. 15:23 Patient arrives today for URI signs and symptoms. Patient reports she been having cough ec2 and congestion along with decreased p.o. intake with associated nausea and vomiting. Patient reports that she is approximately 36 weeks . Denies any abdominal pain, denies any vaginal bleeding. Patient reports no urinary complaints. Reports that she has not taken any medications at all for the symptoms.. Historical: - Allergies: 15:04 No Known Allergies; cm10 - PMHx: 15:04 Substance Abuse; cm10 - PSHx: 15:04 anal fissure repair; cm10 - Immunization history:: Adult Immunizations unknown. - Social history:: Smoking status: unknown. ROS: 15:23 Constitutional: as per hpi ec2 Exam: 15:23 Constitutional: GEN: NAD Head: atraumatic Eyes: EOMI Ears: External ears are ec2 normal. CV: Tachycardia LUNGS: no respiratory distress, no wheezes, no rales, no rhonchi ABD: non-distended, soft, gravid uterus. SKIN: no evidence of rashes MSK: no evidence of trauma NEURO: moves all extremities equally Vital Signs: 15:03 BP 109 / 72; Pulse 136; Resp 18; Temp 98.7(O); Pulse Ox 95% on R/A; Weight 79.83 kg; cm10 Height 5 ft. 7 in. ; Pain 6/10; 17:18 BP 107 / 67; Pulse 108; Resp 18; Temp 98.4; Pulse Ox 96% on R/A; ph 17:18 Pulse 114; ec2 15:03 Body Mass Index 27.57 (79.83 kg, 170.18 cm) cm10 15:03 Pain Scale: Adult cm10 MDM: 14:55 Patient medically screened. ec2 15:23 Data reviewed: vital signs. ED course: Patient arrives today for evaluation of URI ec2 signs and symptoms. Examination remarkable for well-appearing nontoxic individual who is tachycardic otherwise in no acute respiratory distress. Will obtain lab work, viral studies and reassess the patient. Suspect viral process causing the patient's symptoms. Will give the patient crystalloid as well as antiemetic.. 16:04 ED course: CBC is reassuring.. ec2 16:21 ED course: Patient is positive for COVID. Metabolic profile with appropriate ec2 electrolytes and renal function. CBC is reassuring. . 17:16 ED course: Patient with improving vital signs after crystalloid administration. Patient ec2 with appropriate heart tones as well. Will discharge home and have her follow-up with primary care doctor. I discussed Paxlovid and ultimately will defer management after informed discussion with patient. Return precautions given.. 09/05 15:08 Order name: COVID-19/FLU A+B/RSV; Complete Time: 16:21 cm10 09/05 15:11 Order name: CBC with Diff; Complete Time: 17:19 ec2 09/05 15:11 Order name: CMP; Complete Time: 16:21 ec2 09/05 17:18 Order name: CBC Smear Scan; Complete Time: 17:19 EDMS 09/05 14:49 Order name: Heart Tones; Complete Time: 17:21 ec2 09/05 16:21 Order name: Vital Signs; Complete Time: 17:19 ec2 Administered Medications: 15:47 Drug: NS 0.9% IV 1000 ml IV at 1 bolus Per protocol; 1000 mL bolus Route: IV; Rate: 1 hb bolus; Site: left hand; 17:43 Follow up: Response: No adverse reaction; IV Status: Completed infusion; IV Intake: ph 1000ml 15:47 Drug: metoCLOPramide IVP 10 mg IVP once; over 1 to 2 minutes Route: IVP; Site: left hb hand; 17:43 Follow up: Response: No adverse reaction ph 15:47 Drug: diphenhydrAMINE IVP 12.5 mg IVP once Route: IVP; Site: left hand; hb 17:43 Follow up: Response: No adverse reaction ph Disposition Summary: 09/05/23 17:18 Discharge Ordered Notes: Location: Home ec2 Condition: Stable ec2 Diagnosis - SARS-associated coronavirus as the cause of diseases classified elsewhere ec2 Followup: ec2 - With: Private Physician - When: - Reason: Recheck today's complaints Discharge Instructions: - Discharge Summary Sheet ec2 - COVID-19 ec2 Forms: - Medication Reconciliation Form ec2 - Thank You Letter ec2 - Antibiotic Education ec2 - Prescription Opioid Use ec2 - Patient Portal Instructions ec2 - Leadership Thank You Letter ec2 Signatures: Dispatcher [employer] Denia Juarez RN RN Carmen Moses RN RN cm10 Mike Sandhu MD MD 2 Kerry Ibarra RN ph Corrections: (The following items were deleted from the chart) 15:30 15:30 Patient medically screened. ec2 ec2
--- NOTE | 2023-09-05 17:19 | ER ---
Nurse's Notes [facility] Name: Mitra Melendez Age: 27 yrs Sex: Female : 1995 Arrival Date: 09/05/2023 Time: 14:39 Bed 13 Private MD: Diagnosis: SARS-associated coronavirus as the cause of diseases classified elsewhere Presentation: 09/05 15:03 Chief complaint: Patient states: Cough, body aches and headache onset yesterday. Pt cm10 states that she was recently around kids that had RSV. Coronavirus screen: Vaccine status: Patient reports being unvaccinated. Client denies travel out of the [place] in the last 14 days. Ebola Screen: Patient denies travel to an Ebola-affected area in the 21 days before illness onset. No symptoms or risks identified at this time. Initial Sepsis Screen: Does the patient meet any 2 criteria? No. Patient's initial sepsis screen is negative. Does the patient have a suspected source of infection? No. Patient's initial sepsis screen is negative. Risk Assessment: Do you want to hurt yourself or someone else? Patient reports no desire to harm self or others. Onset of symptoms was September 05, 2023. 15:03 Method Of Arrival: Ambulatory cm10 15:03 Acuity: ELBERT 3 cm10 Historical: - Allergies: 15:04 No Known Allergies; cm10 - PMHx: 15:04 Substance Abuse; cm10 - PSHx: 15:04 anal fissure repair; cm10 - Immunization history:: Adult Immunizations unknown. - Social history:: Smoking status: unknown. Screenin:35 [facility] ED Fall Risk Assessment (Adult) Score/Fall Risk Level 0 - 2 = Low Risk hb Oriented to surroundings, Maintained a safe environment, Educated pt \T\ family on fall prevention, incl call for assistance when getting out of bed. Abuse screen: Denies threats or abuse. Denies injuries from another. Nutritional screening: No deficits noted. Tuberculosis screening: No symptoms or risk factors identified. Assessment: 15:35 General: Appears in no apparent distress. Behavior is calm, cooperative. Pain: Pain hb currently is 6 out of 10 on a pain scale. Neuro: Level of Consciousness is awake, alert, obeys commands, Oriented to person, place, time, situation. Cardiovascular: Patient's skin is warm and dry. Respiratory: Respiratory effort is even, unlabored, Respiratory pattern is regular, symmetrical. GI: Reports nausea, vomiting. : No signs and/or symptoms were reported regarding the genitourinary system. EENT: No signs and/or symptoms were reported regarding the EENT system. Derm: Skin is healthy with good turgor, Skin is dry, Skin is pale. Musculoskeletal: Reports body aches. Vital Signs: 15:03 BP 109 / 72; Pulse 136; Resp 18; Temp 98.7(O); Pulse Ox 95% on R/A; Weight 79.83 kg; cm10 Height 5 ft. 7 in. ; Pain 6/10; 17:18 BP 107 / 67; Pulse 108; Resp 18; Temp 98.4; Pulse Ox 96% on R/A; ph 17:18 Pulse 114; ec2 15:03 Body Mass Index 27.57 (79.83 kg, 170.18 cm) cm10 15:03 Pain Scale: Adult cm10 Vitals: 17:18 Heart Tones 158 bpm. ph ED Course: 14:42 Patient arrived in ED. mr 14:47 Mike Sandhu MD is Attending Physician. ec2 15:04 Triage completed. cm10 15:05 Arm band placed on Patient placed in an exam room, on a stretcher. cm10 15:08 COVID-19/FLU A+B/RSV Sent. cm10 15:35 Patient has correct armband on for positive identification. Provided Education on: hb tests, result times. 15:35 No provider procedures requiring assistance completed. hb 15:36 Missed attempt(s): 22 gauge in right antecubital area. Bleeding controlled, band aid hb applied, catheter tip intact. 15:37 Kerry Ibarra, RN is Primary Nurse. ph 15:40 CMP Sent. hb 15:40 CBC with Diff Sent. hb 15:40 Inserted saline lock: 22 gauge in left hand, using aseptic technique. Blood collected. hb 15:47 COVID-19/FLU A+B/RSV Sent. hb 17:43 IV discontinued, intact, bleeding controlled, No redness/swelling at site. Pressure ph dressing applied. Administered Medications: 15:47 Drug: NS 0.9% IV 1000 ml IV at 1 bolus Per protocol; 1000 mL bolus Route: IV; Rate: 1 hb bolus; Site: left hand; 17:43 Follow up: Response: No adverse reaction; IV Status: Completed infusion; IV Intake: ph 1000ml 15:47 Drug: metoCLOPramide IVP 10 mg IVP once; over 1 to 2 minutes Route: IVP; Site: left hb hand; 17:43 Follow up: Response: No adverse reaction ph 15:47 Drug: diphenhydrAMINE IVP 12.5 mg IVP once Route: IVP; Site: left hand; 17:43 Follow up: Response: No adverse reaction ph Medication: 15:35 VIS not applicable for this client. hb Intake: 17:43 IV: 1000ml; Total: 1000ml. ph Outcome: 17:18 Discharge ordered by . ec2 17:43 Discharged to home ambulatory, ph 17:43 Condition: good 17:43 Discharge instructions given to patient, Instructed on discharge instructions, follow up and referral plans. Demonstrated understanding of instructions, follow-up care, 17:44 Patient left the ED. ph Signatures: Miryam Watts, Reg Reg mr Kerry Ibarra, DANI LOUISE Denia Mcelroy RN RN Carmen Moses RN RN cm10 Mike Sandhu MD MD ec2
[2023-09-05 18:50] VITALS: BP 107/67; TEMP 98.4; O2SAT 96
== END ==
LOC: ER 14:39
DX: O98.513 Other viral diseases complicating pregnancy, third trimester (principal); Z3A.36 36 weeks gestation of pregnancy
CPT/HCPCS: 96361; 85025; 36415; 80053; 0241U; 96375; 96374; 99284; J2765; J1200; J7030

== ENCOUNTER 2024-08-15 16:34 | Emergency (ER) | payer OTHER ==
--- OUTSIDE RECORDS SUMMARY | 2024-08-15 16:42 | XMS REPORT | Continuity of Care Document ---
Author Name Unknown Address [address] [facility] [address] [place] [address] [facility] Address [address] [place] [address] Care Team Providers Care Wood Cut Engraver Name Role Phone PCP, PATIENT DOES NOT HAVE A Primary Care Physic katlin Unavailable MARCIA OCAMPO Attending Clinician Unavailable CARITO PICHARDO Attending Clinician Unavailable Marcia Ocampo MD Attending Clinician [phone] Doctor Unassigned, [place] Attending Clinician U suailable Sachin William MD Attending Clinicia n Darius GAITAN, Loreta Attending Clinician [phone] Po, [facility] Attending Clinician Unavailabl e Lab, Ang - Db Attending Clinician Unavailable LEONA PRIETO Attending Clinician Unav ailable Ultrasound, [facility] Attending Clinician UnavailLeona Escalera MD Attending Clinician + [email or web address]_S Attending Clinician UnavailMarine Jo MD Attending Clinician [phone] MARINE WORTHINGTON Attending Clinician Unavailable MARINE WORTHINGTON Attending Clinician Unavailable ATUL SENA Attending Clinician Unavailable Atul Sena DO Attending Clinician [phone] Gretel GAITAN, Martell Attending Clinician [phone] Marely Ly RN Attending Clinician Unavailabl e Nurse, [facility] Attending Clinician Un available Leia Everett RN Attending Clinician UnavailRAMIREZ Back Attending Clinician Unavailable Ramirez Sanchez MD Attending Clinician [phone] EDITA DYE Attending Clinician Unavaila Edita Junior CNM Attending Clinician [phone] GERMAN BACK Attending Clinician Unavailab SURJIT Catalan Attending Clinician Unavail able Krystal WHCNPSurjit Attending Clinician + German Gil Attending Clinician + [phone] SKYLER CUELLAR Attending Clinician Unavailtamia Cuellar MEDIA RELATIONS INTERN, Skyler Douglas Attending Clinician [phone] LORENZO CHEATHAM Attending Clinician Unavail able Visit, [facility] Attending Clinician Mikkiva dennys Sanchez MD, Monica Alejandra Attending Clinician [phone] MARCIA OCAMPO Admitting Clinician Unavailable [email or web address] Admitting Clinician Unavaila guillermo Payers Payer Name Policy Type Policy Number Effective Date Expirati on Date Source [place] [employer] [id number] 2023 00:00:00 Problems Condition Name Condition Details Condition Category Status Onset Date Resolution Date Last Treatment Date Treating Clinician Comments Source 39 weeks gestation of 39 weeks gestation of Disease Active 09-25 00:00: 00 [facility] Liveborn , of [place]ke[place] , born in hospital by vaginal delivery Liveborn , of [place]kew , born in hospital by vaginal delivery Disease Active 09-25 00:00: 00 [facility] 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 test for herpes simplex virus (HSV) antibody Disease Active 05-17 00:00: 00 [facility] GDM (gestation al diabetes mellitus), class A1 GDM (gestation al diabetes mellitus), class A1 Disease Active 04-19 00:00: 00 [facility] High-risk in third trimester High-risk in third trimester Disease Active 04-19 00:00: 00 [facility] Family history of congenital heart disease Family history of congenital heart disease Disease Active 8-11 00:00: 00 [facility] History of gestationa l diabetes mellitus (GDM) History of gestationa l diabetes mellitus (GDM) Disease Active 8-11 00:00: 00 [facility] Normal in first trimester Normal in first trimester Disease Active 7-14 00:00: 00 [facility] Nausea and vomiting during prior to 22 weeks gestation Nausea and vomiting during prior to 22 weeks gestation Disease Active 7-14 00:00: 00 [facility] History of anxiety and depression History of anxiety and depression Disease Active 4-13 00:00: 00 [facility] BMI 25.0-25.9, adult BMI 25.0-25.9, adult Disease Active 4-07 00:00: 00 [facility] BMI 25.0-25.9, adult BMI 25.0-25.9, adult Disease Active 4-07 00:00: 00 [facility] Nexplanon in place Nexplanon in place Disease Active 3- 00:00: 00 [facility] Flu vaccine need Flu vaccine need Disease Active 3-31 00:00: 00 [facility] Internal thrombosed hemorrhoid s Internal thrombosed hemorrhoid s Disease Active 0 6- 00:00: 00 [facility] Chlamydia trachomati s infection of lower genitourin victorina sites Chlamydia trachomati s infection of lower genitourin victorina sites Disease Active 2018-09 2 00:00: 00 [facility] Encounter for surveillan ce of implantabl e subdermal contracept giovanna Encounter for surveillan ce of implantabl e subdermal contracept giovanna Disease Active 2017-09 00:00: 00 [facility] Tobacco use disorder Tobacco use disorder Disease Active 2017-09 00:00: 00 [facility] 23 weeks gestation of 23 weeks gestation of Diagnosis Active [facility] Paronychia of finger of left hand Paronychia of finger of left hand Diagnosis Active [facility] Allergies, Adverse Reactions, Alerts Allergy Name Allergy Type Status Severity Reaction(s) Onset Date Inactive Date Treating Clinician Comments Source NO KNOWN ALLERGIE S Drug Class Active [facility] Social History Social Habit Start Date Stop Date Quantity Comments Source ASSERTION 2023-01-09 00:00:00 [facility] History of tobacco use 2007-10-04 00:00:00 Cigarette Smoker [facility] History SDOH Alcohol Frequency [facility] History SDOH Alcohol Std Drinks [facility] History SDOH Alcohol Binge [facility] Alcohol intake 2023-12-04 00:00:00 2023-12-04 00:00:00 Ex-drinker (finding) [facility] History of Social function 2023-11-06 00:00:00 2023-11-06 00:00:00 [facility] Alcohol Comment 2023-03-22 00:00:00 2023-03-22 00:00:00 qquit when fund out was [facility] Cigarettes smoked current (pack per day) - Reported 2023-03-22 00:00:00 2023-03-22 00:00:00 [facility] Cigarette pack-years 2023-03-22 00:00:00 2023-03-22 00:00:00 [facility] Tobacco use and exposure 2023-03-22 00:00:00 2023-03-22 00:00:00 Smokeless tobacco non-user [facility] Exposure to SARS-CoV-2 (event) 2022-12-10 00:00:00 2022-12-20 14:24:00 Not sure [facility] Sex Assigned At 1995 00:00:00 1995 00:00:00 [facility] Smoking Status Start Date Stop Date Source Smokes tobacco daily 2023-03-22 00:00:00 [facility] Medications Ordered Medication Name Filled Medication Name Start Date Stop Date Current Medication? Ordering Clinician Indication Dosage Frequency Signature (SIG) Comments Components Source sulfamethox azole-trime thoprim (BACTRIM DS) 800-160 mg per tablet 12-03 00:00: 00 12-07 04:59 :00 No [id number] 1{tbl} Take 1 tablet by mouth in the morning and 1 tablet in the evening. Do all this for 3 days. [facility] sulfamethox azole-trime thoprim (BACTRIM DS) 800-160 mg per tablet 11-18 00:00: 00 11-24 04:59 :00 No [id number] 1{tbl} Take 1 tablet by mouth in the morning and 1 tablet in the evening. Do all this for 5 days. [facility] cephALEXin 500 mg capsule 11-12 00:00: 00 11-18 00:00 :00 No [id number] 500mg Take 1 capsule by mouth 4 (four) times daily for 10 days. [facility] etonogestre L (NEXPLANON) implant 68 mg 00:15: 00 11-06 23:46 :00 No [id number] 68mg [facility] metoclopram nabila HCl (REGLAN) tablet 10 mg 09-26 20:15: 00 09-26 19:35 :00 No 10mg 10 mg, Oral, ONCE, 1 dose, On Sat09/26/23 at 1415, Routine [facility] PNV no.95/giancarlo us fum/folic ac ( ORAL) 09-26 07:35: 16 09-26 00:00 :00 No Take by mouth. [facility] rho(D) immune globulin (RHOGAM) syringe 300 mcg 09-26 06:03: 58 Yes 300ug 300 mcg, Intramuscu lar, ONCE, For 1 dose, Conditiona l, Routine [facility] witch Kamryn (TUCKS) 50 % topical pad 09-26 06:03: 53 Yes Topical, Q4HPRN, Starting on Sat09/26/23 at 0003, Until Discontinu ed, Routine, rectal/hem orrhoidal pain [facility] HYDROcodone -acetaminop hen (NORCO 5) 5-325 mg tablet 1 tablet 09-26 06:03: 53 Yes 1{tbl} 1 tablet, Oral, Q6HPRN, Starting on Sat09/26/23 at 0003, Until Discontinu ed, Routine, Pain (scale 7-10) [facility] ibuprofen (IBU) tablet 600 mg 09-26 06:03: 53 Yes 600mg 600 mg, Oral, Q6HPRN, Starting on Sat09/26/23 at 0003, Until Discontinu ed, Routine, Pain (scale 4-6) [facility] acetaminoph en (TYLENOL) tablet 650 mg 09-26 06:03: 53 Yes 650mg 650 mg, Oral, Q6HPRN, Starting on Sat09/26/23 at 0003, Until Discontinu ed, Routine, Pain (scale 1-3) [facility] diphenhydrA MINE (BENADRYL) tablet 25 mg 09-26 06:03: 53 Yes 25mg 25 mg, Oral, Q6HPRN, Starting on Sat09/26/23 at 2, Until Discontinu ed, Routine, Sleep, Itching [facility] ondansetron (ZOFRAN (PF)) injection 4 mg 09-26 06:03: 53 Yes 4mg 4 mg, Slow IV Push, Q8HPRN, Starting on Sat09/26/23 at 2, Until Discontinu ed, Routine, Nausea and Vomiting (N/V) [facility] simethicone (GAS RELIEF (SIMETHICON E)) chewable tablet 160 mg 09-26 06:03: 53 Yes 160mg 160 mg, Oral, PC+HSPRN, Starting on Sat09/26/23 at 0003, Until Discontinu ed, Routine, Gas [facility] docusate (COLACE) capsule 200 mg 09-26 06:03: 53 Yes 200mg 200 mg, Oral, QDAILYPRN, Starting on Sat09/26/23 at 0003, Until Discontinu ed, Routine, Constipati on [facility] magnesium hydroxide (MILK OF MAGNESIA) 400 mg/5 mL suspension 30 mL 09-26 06:03: 53 Yes 30mL 30 mL, Oral, QDAILYPRN, Starting on Sat09/26/23 at 0003, Until Discontinu ed, Routine, Constipati on [facility] benzocaine- menthol (DERMOPLAST ) 20-0.5 % topical spray 09-26 06:03: 53 Yes Topical, PRN, Starting on Sat09/26/23 at 0003, Until Discontinu ed, Routine, Perineum discomfort [facility] vitamin w/FA tablet 09-26 00:00: 00 11-06 00:00 :00 No [id number] 1{tbl} Take 1 tablet by mouth in the morning. [facility] docusate 100 mg capsule 09-26 00:00: 00 11-06 00:00 :00 No [id number] 200mg Take 2 capsules by mouth once daily as needed for Constipati on. [facility] ferrous sulfate 325 mg (65 mg iron) tablet 09-26 00:00: 00 11-06 00:00 :00 No [id number] 325mg Take 1 tablet by mouth in the morning and 1 tablet in the evening. [facility] ibuprofen 600 mg tablet 09-26 00:00: 00 11-06 00:00 :00 No [id number] 600mg Take 1 tablet by mouth every 6 (six) hours as needed (Pain). Take with food or milk. [facility] PNV no.95/giancarlo us fum/folic ac ( ORAL) 09-25 23:18: 46 Yes Take by mouth. [facility] fentaNYL-ro pivacaine 2 mcg/mL-0.1 % (PF) in NS 200 mL epidural infusion RTU 09-25 16:57: 00 Yes Epidural, CONTINUOUS PRN, Starting on Sat09/25/23 at 1057, Until Discontinu ed, Routine, Intra-op [facility] lidocaine-e pinephrine (XYLOCAINE W/EPINEPHRI NE) 1.5 %-1:200,000 injection 09-25 16:49: 00 Yes Intraderma l, ONCE INTRA PROCEDURE, Starting on Sat09/25/23 at 1049, Until Discontinu ed, Routine, Intra-op [facility] acyclovir (ZOVIRAX) tablet 400 mg 09-25 14:00: 00 09-26 06:03 :57 No 400mg 400 mg, Oral, TID, First dose on Sat09/25/23 at 0800, Until Discontinu ed, BALTA [facility] lactated ringers IV infusion 500 mL 09-25 12:32: 53 09-26 06:03 :56 No 500mL at 999 mL/hr, 500 mL, IV Infusion, PRN - SEE INSTRUCTIO NS, Starting on Sat09/25/23 at 0632, Until Kate 09/26/23 at 0003, Routine [facility] FENTanyl PF (SUBLIMAZE (PF)) injection 100 mcg 09-25 12:32: 53 09-26 06:03 :57 No 100ug 100 mcg, Slow IV Push, Q1HPRN, Starting on Sat09/25/23 at 0632, Until Kate 09/26/23 at 0003, Routine, contractio n pain without an epidural and SVE < 8 cm and Cat I strip [facility] oxytocin (PITOCIN) 30 units in NS 500 mL IV infusion 09-25 12:32: 53 09-26 06:03 :57 No 2mU/min at 2-40 mL/hr, IV Infusion, TITRATE, Starting on Sat09/25/23 at 0632, Until Kate 09/26/23 at 0003, BALTA [facility] D5W-LR IV infusion 1,000 mL 09-25 12:32: 53 09-26 06:03 :56 No 1000mL at 1-125 mL/hr, IV Infusion, TITRATE, Starting on Sat09/25/23 at 0632, Until Kate 09/26/23 at 0003, Routine [facility] PNV no.95/giancarlo us fum/folic ac ( ORAL) 1-12 14:40: 57 Yes Take by mouth. [facility] nirmatrelvi r-ritonavir (PAXLOVID) 300 mg (150 mg x 2)-100 mg tablet 2022-09 2-29 00:00: 00 Yes 3{tbl} Take 3 tablets by mouth in the morning and 3 tablets in the evening. [facility] PNV no.95/giancarlo us fum/folic ac ( ORAL) 2022-09 2-15 13:12: 22 Yes Take by mouth. [facility] acyclovir 400 mg tablet 2022-09 2 00:00: 00 09-26 00:00 :00 No [id number] 400mg Take 1 tablet by mouth in the morning and 1 tablet at noon and 1 tablet in the evening. [facility] blood sugar diagnostic (BLOOD GLUCOSE TEST) strip 2022-09 0- 00:00: 00 09-26 00:00 :00 No Check gluocose 4 times a day [facility] sulfamethox azole-trime thoprim (BACTRIM DS) 800-160 mg per tablet 9-08 00:00: 00 05-28 04:59 :00 No [id number] 1{tbl} Take 1 tablet by mouth in the morning and 1 tablet in the evening. Do all this for 10 days. [facility] cephALEXin (KEFLEX) 500 mg capsule 05-06 00:00: 00 05-14 04:59 :00 No [id number] 500mg Take 1 capsule by mouth in the morning and 1 capsule at noon and 1 capsule in the evening. Do all this for 7 days. [facility] Blood-Gluco se Meter Kit 03-27 00:00: 00 09-26 00:00 :00 No Check glucose 4 times a day. [facility] Lancets Misc 03-27 00:00: 00 09-26 00:00 :00 No Check glucose 4 times a day [facility] Alcohol Swabs (ALCOHOL PADS) PadM 03-27 00:00: 00 09-26 00:00 :00 No Apply to area(s) 4 (four) times daily. [facility] blood sugar diagnostic (BLOOD GLUCOSE TEST) strip 03-27 00:00: 00 07-09 00:00 :00 No Check gluocose 4 times a day [facility] PNV no.95/giancarlo us fum/folic ac ( ORAL) 03-22 09:00: 18 Yes Take by mouth. [facility] pyridoxine, VITAMIN B-6, (VITAMIN B-6) 25 mg tablet 03-22 00:00: 00 09-26 00:00 :00 No [id number] 25mg Take 1 tablet by mouth every 6 (six) hours as needed for Nausea and Vomiting (N/V). [facility] doxylamine (UNISOM, DOXYLAMINE, ) 25 mg tablet 03-22 00:00: 00 09-26 00:00 :00 No [id number] 25mg Take 1 tablet by mouth at bedtime as needed for Nausea and Vomiting (N/V). [facility] metoclopram nabila HCl 10 mg tablet 03-22 00:00: 00 09-26 00:00 :00 No [id number] 10mg Take 1 tablet by mouth every 6 (six) hours as needed for Nausea and Vomiting (N/V). [facility] ondansetron (ZOFRAN-ODT ) disintegrat ing tablet 4 mg 03-07 05:00: 00 03-07 03:55 :00 No 4mg 4 mg, Oral, ONCE, 1 dose, On Kate 03/07/23 at 0000, BALTA [facility] doxylamine- pyridoxine, vit B6, (DICLEGIS) 10-10 mg per tablet 03-06 00:00: 00 03-22 00:00 :00 No [id number] 1{tbl} Take 1 tablet by mouth 4 (four) times daily as needed for Nausea and Vomiting (N/V). [facility] No known medications 2021-09 13:50: 57 No No known medication s [facility] No known medications 12-14 09:03: 50 No [facility] Yes Florencio Mitchell 1 tablet [facility] Immunizations Ordered Immunization Name Filled Immunization Name Date Status Comments Source Influenza Virus Vaccine Quad .5 mL IM 6+ MO 2021-12-14 00:00:00 Completed [facility] Influenza Virus Vaccine Quad .5 mL IM 6+ MO 2021-12-14 00:00:00 Completed [facility] Influenza Virus Vaccine Quad .5 mL IM 6+ MO 2021-12-14 00:00:00 Completed [facility] Influenza Virus Vaccine Quad .5 mL IM 6+ MO 2021-12-14 00:00:00 Completed [facility] Influenza Virus Vaccine Quad .5 mL IM 6+ MO 2021-12-14 00:00:00 Completed [facility] Influenza Virus Vaccine Quad .5 mL IM 6+ MO 2021-12-14 00:00:00 Completed [facility] Influenza Virus Vaccine Quad .5 mL IM 6+ MO 2021-12-14 00:00:00 Completed [facility] Influenza Virus Vaccine Quad .5 mL IM 6+ MO 2021-12-14 00:00:00 Completed [facility] Influenza Virus Vaccine Quad .5 mL IM 6+ MO 2021-12-14 00:00:00 Completed [facility] Influenza Virus Vaccine Quad .5 mL IM 6+ MO (FLUZONE/FLULAVAL/FL UARIX) 2021-12-14 00:00:00 Completed [facility] Influenza Virus Vaccine Quad .5 mL IM 6+ MO (FLUZONE/FLULAVAL/FL UARIX) 2021-12-14 00:00:00 Completed [facility] Influenza Virus Vaccine Quad .5 mL IM 6+ MO 2021-12-14 00:00:00 Completed [facility] Influenza Virus Vaccine Quad .5 mL IM 6+ MO 2021-12-14 00:00:00 Completed [facility] Influenza Virus Vaccine Quad .5 mL IM 6+ MO 2021-12-14 00:00:00 Completed [facility] Influenza Virus Vaccine Quad .5 mL IM 6+ MO 2021-12-14 00:00:00 Completed [facility] Influenza Virus Vaccine Quad .5 mL IM 6+ MO 2021-12-14 00:00:00 Completed [facility] Influenza Virus Vaccine Quad .5 mL IM 6+ MO 2021-12-14 00:00:00 Completed [facility] Influenza Virus Vaccine Quad .5 mL IM 6+ MO 2021-12-14 00:00:00 Completed [facility] Influenza Virus Vaccine Quad .5 mL IM 6+ MO 2021-12-14 00:00:00 Completed [facility] Influenza Virus Vaccine Quad .5 mL IM 6+ MO 2021-12-14 00:00:00 Completed [facility] Influenza Virus Vaccine Quad .5 mL IM 6+ MO 2021-12-14 00:00:00 Completed [facility] Influenza Virus Vaccine Quad .5 mL IM 6+ MO 2021-12-14 00:00:00 Completed [facility] Influenza Virus Vaccine Quad .5 mL IM 6+ MO 2021-12-14 00:00:00 Completed [facility] Influenza Virus Vaccine Quad .5 mL IM 6+ MO 2021-12-14 00:00:00 Completed [facility] Influenza Virus Vaccine Quad .5 mL IM 6+ MO 2021-12-14 00:00:00 Completed [facility] HPV9 2020-12-07 00:00:00 Completed [facility] HPV9 2020-12-07 00:00:00 Completed [facility] HPV9 2020-12-07 00:00:00 Completed [facility] HPV9 2020-12-07 00:00:00 Completed [facility] HPV9 2020-12-07 00:00:00 Completed [facility] HPV9 2020-12-07 00:00:00 Completed [facility] HPV9 2020-12-07 00:00:00 Completed [facility] HPV9 2020-12-07 00:00:00 Completed [facility] HPV9 2020-12-07 00:00:00 Completed [facility] HPV9 2020-12-07 00:00:00 Completed [facility] HPV9 2020-12-07 00:00:00 Completed [facility] HPV9 2020-12-07 00:00:00 Completed [facility] HPV9 2020-12-07 00:00:00 Completed [facility] HPV9 2020-12-07 00:00:00 Completed [facility] HPV9 2020-12-07 00:00:00 Completed [facility] HPV9 2020-12-07 00:00:00 Completed [facility] HPV9 2020-12-07 00:00:00 Completed [facility] HPV9 2020-12-07 00:00:00 Completed [facility] HPV9 2020-12-07 00:00:00 Completed [facility] HPV9 2020-12-07 00:00:00 Completed [facility] HPV9 2020-12-07 00:00:00 Completed [facility] HPV9 2020-12-07 00:00:00 Completed [facility] HPV9 2020-12-07 00:00:00 Completed [facility] HPV9 2020-12-07 00:00:00 Completed [facility] HPV9 2020-12-07 00:00:00 Completed [facility] HPV9 2019-09-17 00:00:00 Completed [facility] HPV9 2019-09-17 00:00:00 Completed [facility] HPV9 2019-09-17 00:00:00 Completed [facility] HPV9 2019-09-17 00:00:00 Completed [facility] HPV9 2019-09-17 00:00:00 Completed [facility] HPV9 2019-09-17 00:00:00 Completed [facility] HPV9 2019-09-17 00:00:00 Completed [facility] HPV9 2019-09-17 00:00:00 Completed [facility] HPV9 2019-09-17 00:00:00 Completed [facility] HPV9 2019-09-17 00:00:00 Completed [facility] HPV9 2019-09-17 00:00:00 Completed [facility] HPV9 2019-09-17 00:00:00 Completed [facility] HPV9 2019-09-17 00:00:00 Completed [facility] HPV9 2019-09-17 00:00:00 Completed [facility] HPV9 2019-09-17 00:00:00 Completed [facility] HPV9 2019-09-17 00:00:00 Completed [facility] HPV9 2019-09-17 00:00:00 Completed [facility] HPV9 2019-09-17 00:00:00 Completed [facility] HPV9 2019-09-17 00:00:00 Completed [facility] HPV9 2019-09-17 00:00:00 Completed [facility] HPV9 2019-09-17 00:00:00 Completed [facility] HPV9 2019-09-17 00:00:00 Completed [facility] HPV9 2019-09-17 00:00:00 Completed [facility] HPV9 2019-09-17 00:00:00 Completed [facility] HPV9 2019-09-17 00:00:00 Completed [facility] HPV9 2019-08-05 00:00:00 Completed [facility] Influenza Virus Vaccine Quad .5 mL IM 6+ MO 2019-08-05 00:00:00 Completed [facility] HPV9 2019-08-05 00:00:00 Completed [facility] Influenza Virus Vaccine Quad .5 mL IM 6+ MO 2019-08-05 00:00:00 Completed [facility] HPV9 2019-08-05 00:00:00 Completed [facility] Influenza Virus Vaccine Quad .5 mL IM 6+ MO 2019-08-05 00:00:00 Completed [facility] HPV9 2019-08-05 00:00:00 Completed [facility] Influenza Virus Vaccine Quad .5 mL IM 6+ MO 2019-08-05 00:00:00 Completed [facility] HPV9 2019-08-05 00:00:00 Completed [facility] Influenza Virus Vaccine Quad .5 mL IM 6+ MO 2019-08-05 00:00:00 Completed [facility] HPV9 2019-08-05 00:00:00 Completed [facility] Influenza Virus Vaccine Quad .5 mL IM 6+ MO 2019-08-05 00:00:00 Completed [facility] HPV9 2019-08-05 00:00:00 Completed [facility] Influenza Virus Vaccine Quad .5 mL IM 6+ MO 2019-08-05 00:00:00 Completed [facility] HPV9 2019-08-05 00:00:00 Completed [facility] Influenza Virus Vaccine Quad .5 mL IM 6+ MO 2019-08-05 00:00:00 Completed [facility] HPV9 2019-08-05 00:00:00 Completed [facility] Influenza Virus Vaccine Quad .5 mL IM 6+ MO 2019-08-05 00:00:00 Completed [facility] HPV9 2019-08-05 00:00:00 Completed [facility] Influenza Virus Vaccine Quad .5 mL IM 6+ MO (FLUZONE/FLULAVAL/FL UARIX) 2019-08-05 00:00:00 Completed [facility] HPV9 2019-08-05 00:00:00 Completed [facility] Influenza Virus Vaccine Quad .5 mL IM 6+ MO (FLUZONE/FLULAVAL/FL UARIX) 2019-08-05 00:00:00 Completed [facility] HPV9 2019-08-05 00:00:00 Completed [facility] Influenza Virus Vaccine Quad .5 mL IM 6+ MO 2019-08-05 00:00:00 Completed [facility] HPV9 2019-08-05 00:00:00 Completed [facility] Influenza Virus Vaccine Quad .5 mL IM 6+ MO 2019-08-05 00:00:00 Completed [facility] HPV9 2019-08-05 00:00:00 Completed [facility] Influenza Virus Vaccine Quad .5 mL IM 6+ MO 2019-08-05 00:00:00 Completed [facility] HPV9 2019-08-05 00:00:00 Completed [facility] Influenza Virus Vaccine Quad .5 mL IM 6+ MO 2019-08-05 00:00:00 Completed [facility] HPV9 2019-08-05 00:00:00 Completed [facility] Influenza Virus Vaccine Quad .5 mL IM 6+ MO 2019-08-05 00:00:00 Completed [facility] HPV9 2019-08-05 00:00:00 Completed [facility] Influenza Virus Vaccine Quad .5 mL IM 6+ MO 2019-08-05 00:00:00 Completed [facility] HPV9 2019-08-05 00:00:00 Completed [facility] Influenza Virus Vaccine Quad .5 mL IM 6+ MO 2019-08-05 00:00:00 Completed [facility] HPV9 2019-08-05 00:00:00 Completed [facility] Influenza Virus Vaccine Quad .5 mL IM 6+ MO 2019-08-05 00:00:00 Completed [facility] HPV9 2019-08-05 00:00:00 Completed [facility] Influenza Virus Vaccine Quad .5 mL IM 6+ MO 2019-08-05 00:00:00 Completed [facility] HPV9 2019-08-05 00:00:00 Completed [facility] Influenza Virus Vaccine Quad .5 mL IM 6+ MO 2019-08-05 00:00:00 Completed [facility] HPV9 2019-08-05 00:00:00 Completed [facility] Influenza Virus Vaccine Quad .5 mL IM 6+ MO 2019-08-05 00:00:00 Completed [facility] HPV9 2019-08-05 00:00:00 Completed [facility] Influenza Virus Vaccine Quad .5 mL IM 6+ MO 2019-08-05 00:00:00 Completed [facility] HPV9 2019-08-05 00:00:00 Completed [facility] Influenza Virus Vaccine Quad .5 mL IM 6+ MO 2019-08-05 00:00:00 Completed [facility] HPV9 2019-08-05 00:00:00 Completed [facility] Influenza Virus Vaccine Quad .5 mL IM 6+ MO 2019-08-05 00:00:00 Completed [facility] TDAP 2018-05-08 00:00:00 Completed [facility] TDAP 2018-05-08 00:00:00 Completed [facility] TDAP 2018-05-08 00:00:00 Completed [facility] TDAP 2018-05-08 00:00:00 Completed [facility] TDAP 2018-05-08 00:00:00 Completed [facility] TDAP 2018-05-08 00:00:00 Completed [facility] TDAP 2018-05-08 00:00:00 Completed [facility] TDAP 2018-05-08 00:00:00 Completed [facility] TDAP 2018-05-08 00:00:00 Completed [facility] TDAP 2018-05-08 00:00:00 Completed [facility] TDAP 2018-05-08 00:00:00 Completed [facility] TDAP 2018-05-08 00:00:00 Completed [facility] TDAP 2018-05-08 00:00:00 Completed [facility] TDAP 2018-05-08 00:00:00 Completed [facility] TDAP 2018-05-08 00:00:00 Completed [facility] TDAP 2018-05-08 00:00:00 Completed [facility] TDAP 2018-05-08 00:00:00 Completed [facility] TDAP 2018-05-08 00:00:00 Completed [facility] TDAP 2018-05-08 00:00:00 Completed [facility] TDAP 2018-05-08 00:00:00 Completed [facility] TDAP 2018-05-08 00:00:00 Completed [facility] TDAP 2018-05-08 00:00:00 Completed [facility] TDAP 2018-05-08 00:00:00 Completed [facility] TDAP 2018-05-08 00:00:00 Completed [facility] TDAP 2018-05-08 00:00:00 Completed [facility] Varicella (varivax)(chicken pox) 2008-11-26 00:00:00 Completed [facility] Meningococcal Polysaccharide (groups A, C, Y and W-135) conjugate vaccine (MCV4P) 2008-11-26 00:00:00 Completed [facility] TDAP 2008-11-26 00:00:00 Completed [facility] Varicella (varivax)(chicken pox) 2008-11-26 00:00:00 Completed [facility] Meningococcal Polysaccharide (groups A, C, Y and W-135) conjugate vaccine (MCV4P) 2008-11-26 00:00:00 Completed [facility] TDAP 2008-11-26 00:00:00 Completed [facility] Varicella (varivax)(chicken pox) 2008-11-26 00:00:00 Completed [facility] Meningococcal Polysaccharide (groups A, C, Y and W-135) conjugate vaccine (MCV4P) 2008-11-26 00:00:00 Completed [facility] TDAP 2008-11-26 00:00:00 Completed [facility] Varicella (varivax)(chicken pox) 2008-11-26 00:00:00 Completed [facility] Meningococcal Polysaccharide (groups A, C, Y and W-135) conjugate vaccine (MCV4P) 2008-11-26 00:00:00 Completed [facility] TDAP 2008-11-26 00:00:00 Completed [facility] Varicella (varivax)(chicken pox) 2008-11-26 00:00:00 Completed [facility] Meningococcal Polysaccharide (groups A, C, Y and W-135) conjugate vaccine (MCV4P) 2008-11-26 00:00:00 Completed [facility] TDAP 2008-11-26 00:00:00 Completed [facility] Varicella (varivax)(chicken pox) 2008-11-26 00:00:00 Completed [facility] Meningococcal Polysaccharide (groups A, C, Y and W-135) conjugate vaccine (MCV4P) 2008-11-26 00:00:00 Completed [facility] TDAP 2008-11-26 00:00:00 Completed [facility] Varicella (varivax)(chicken pox) 2008-11-26 00:00:00 Completed [facility] Meningococcal Polysaccharide (groups A, C, Y and W-135) conjugate vaccine (MCV4P) 2008-11-26 [facility] Varicella (varivax)(chicken pox) 2008-11-26 00:00:00 Completed [facility] Meningococcal Polysaccharide (groups A, C, Y and W-135) conjugate vaccine (MCV4P) 2008-11-26 00:00:00 Completed [facility] TDAP 2008-11-26 00:00:00 Completed [facility] Varicella (varivax)(chicken pox) 2008-11-26 00:00:00 Completed [facility] Meningococcal Polysaccharide (groups A, C, Y and W-135) conjugate vaccine (MCV4P) 2008-11-26 00:00:00 Completed [facility] TDAP 2008-11-26 00:00:00 Completed [facility] Varicella (varivax)(chicken pox) 2008-11-26 00:00:00 Completed [facility] Meningococcal Polysaccharide (groups A, C, Y and W-135) conjugate vaccine (MCV4P) 2008-11-26 00:00:00 Completed [facility] TDAP 2008-11-26 00:00:00 Completed [facility] Varicella (varivax)(chicken pox) 2008-11-26 00:00:00 Completed [facility] Meningococcal Polysaccharide (groups A, C, Y and W-135) conjugate vaccine (MCV4P) 2008-11-26 00:00:00 Completed [facility] TDAP 2008-11-26 00:00:00 Completed [facility] Varicella (varivax)(chicken pox) 2008-11-26 00:00:00 Completed [facility] Meningococcal Polysaccharide (groups A, C, Y and W-135) conjugate vaccine (MCV4P) 2008-11-26 00:00:00 Completed [facility] TDAP 2008-11-26 00:00:00 Completed [facility] Varicella (varivax)(chicken pox) 2008-11-26 00:00:00 Completed [facility] Meningococcal Polysaccharide (groups A, C, Y and W-135) conjugate vaccine (MCV4P) 2008-11-26 00:00:00 Completed [facility] TDAP 2008-11-26 00:00:00 Completed [facility] Varicella (varivax)(chicken pox) 2008-11-26 00:00:00 Completed [facility] Meningococcal Polysaccharide (groups A, C, Y and W-135) conjugate vaccine (MCV4P) 2008-11-26 00:00:00 Completed [facility] TDAP 2008-11-26 00:00:00 Completed [facility] Varicella (varivax)(chicken pox) 2008-11-26 00:00:00 Completed [facility] Meningococcal Polysaccharide (groups A, C, Y and W-135) conjugate vaccine (MCV4P) 2008-11-26 00:00:00 Completed [facility] TDAP 2008-11-26 00:00:00 Completed [facility] Varicella (varivax)(chicken pox) 2008-11-26 00:00:00 Completed [facility] Meningococcal Polysaccharide (groups A, C, Y and W-135) conjugate vaccine (MCV4P) 2008-11-26 00:00:00 Completed [facility] TDAP 2008-11-26 00:00:00 Completed [facility] Varicella (varivax)(chicken pox) 2008-11-26 00:00:00 Completed [facility] Meningococcal Polysaccharide (groups A, C, Y and W-135) conjugate vaccine (MCV4P) 2008-11-26 00:00:00 Completed [facility] TDAP 2008-11-26 00:00:00 Completed [facility] Varicella (varivax)(chicken pox) 2008-11-26 00:00:00 Completed [facility] Meningococcal Polysaccharide (groups A, C, Y and W-135) conjugate vaccine (MCV4P) 2008-11-26 00:00:00 Completed [facility] TDAP 2008-11-26 00:00:00 Completed [facility] Varicella (varivax)(chicken pox) 2008-11-26 00:00:00 Completed [facility] Meningococcal Polysaccharide (groups A, C, Y and W-135) conjugate vaccine (MCV4P) 2008-11-26 00:00:00 Completed [facility] TDAP 2008-11-26 00:00:00 Completed [facility] Varicella (varivax)(chicken pox) 2008-11-26 00:00:00 Completed [facility] Meningococcal Polysaccharide (groups A, C, Y and W-135) conjugate vaccine (MCV4P) 2008-11-26 00:00:00 Completed [facility] TDAP 2008-11-26 00:00:00 Completed [facility] Varicella (varivax)(chicken pox) 2008-11-26 00:00:00 Completed [facility] Meningococcal Polysaccharide (groups A, C, Y and W-135) conjugate vaccine (MCV4P) 2008-11-26 00:00:00 Completed [facility] TDAP 2008-11-26 00:00:00 Completed [facility] Varicella (varivax)(chicken pox) 2008-11-26 00:00:00 Completed [facility] Meningococcal Polysaccharide (groups A, C, Y and W-135) conjugate vaccine (MCV4P) 2008-11-26 00:00:00 Completed [facility] TDAP 2008-11-26 00:00:00 Completed [facility] MMR 2001-02-04 00:00:00 Completed [facility] IPV 2001-02-04 00:00:00 Completed [facility] DTaP, Unspecified Formulation 2001-02-04 00:00:00 Completed [facility] MMR 2001-02-04 00:00:00 Completed [facility] IPV 2001-02-04 00:00:00 Completed [facility] DTaP, Unspecified Formulation 2001-02-04 00:00:00 Completed [facility] MMR 2001-02-04 00:00:00 Completed [facility] IPV 2001-02-04 00:00:00 Completed [facility] DTaP, Unspecified Formulation 2001-02-04 00:00:00 Completed [facility] MMR 2001-02-04 00:00:00 Completed [facility] IPV 2001-02-04 00:00:00 Completed [facility] DTaP, Unspecified Formulation 2001-02-04 00:00:00 Completed [facility] MMR 2001-02-04 00:00:00 Completed [facility] IPV 2001-02-04 00:00:00 Completed [facility] DTaP, Unspecified Formulation 2001-02-04 00:00:00 Completed [facility] MMR 2001-02-04 00:00:00 Completed [facility] IPV 2001-02-04 00:00:00 Completed [facility] DTaP, Unspecified Formulation 2001-02-04 00:00:00 Completed [facility] MMR 2001-02-04 00:00:00 Completed [facility] IPV 2001-02-04 00:00:00 Completed [facility] DTaP, Unspecified Formulation 2001-02-04 00:00:00 Completed [facility] MMR 2001-02-04 00:00:00 Completed [facility] IPV 2001-02-04 00:00:00 Completed [facility] DTaP, Unspecified Formulation 2001-02-04 00:00:00 Completed [facility] MMR 2001-02-04 00:00:00 Completed [facility] IPV 2001-02-04 00:00:00 Completed [facility] DTaP, Unspecified Formulation 2001-02-04 00:00:00 Completed [facility] MMR 2001-02-04 00:00:00 Completed [facility] IPV 2001-02-04 00:00:00 Completed [facility] DTaP, Unspecified Formulation 2001-02-04 00:00:00 Completed [facility] MMR 2001-02-04 00:00:00 Completed [facility] IPV 2001-02-04 00:00:00 Completed [facility] DTaP, Unspecified Formulation 2001-02-04 00:00:00 Completed [facility] MMR 2001-02-04 00:00:00 Completed [facility] IPV 2001-02-04 00:00:00 Completed [facility] DTaP, Unspecified Formulation 2001-02-04 00:00:00 Completed [facility] MMR 2001-02-04 00:00:00 Completed [facility] IPV 2001-02-04 00:00:00 Completed [facility] DTaP, Unspecified Formulation 2001-02-04 00:00:00 Completed [facility] MMR 2001-02-04 00:00:00 Completed [facility] IPV 2001-02-04 00:00:00 Completed [facility] DTaP, Unspecified Formulation 2001-02-04 00:00:00 Completed [facility] MMR 2001-02-04 00:00:00 Completed [facility] IPV 2001-02-04 00:00:00 Completed [facility] DTaP, Unspecified Formulation 2001-02-04 00:00:00 Completed [facility] MMR 2001-02-04 00:00:00 Completed [facility] IPV 2001-02-04 00:00:00 Completed [facility] DTaP, Unspecified Formulation 2001-02-04 00:00:00 Completed [facility] MMR 2001-02-04 00:00:00 Completed [facility] IPV 2001-02-04 00:00:00 Completed [facility] DTaP, Unspecified Formulation 2001-02-04 00:00:00 Completed [facility] MMR 2001-02-04 00:00:00 Completed [facility] IPV 2001-02-04 00:00:00 Completed [facility] DTaP, Unspecified Formulation 2001-02-04 00:00:00 Completed [facility] MMR 2001-02-04 00:00:00 Completed [facility] IPV 2001-02-04 00:00:00 Completed [facility] DTaP, Unspecified Formulation 2001-02-04 00:00:00 Completed [facility] MMR 2001-02-04 00:00:00 Completed [facility] IPV 2001-02-04 00:00:00 Completed [facility] DTaP, Unspecified Formulation 2001-02-04 00:00:00 Completed [facility] MMR 2001-02-04 00:00:00 Completed [facility] IPV 2001-02-04 00:00:00 Completed [facility] DTaP, Unspecified Formulation 2001-02-04 00:00:00 Completed [facility] MMR 2001-02-04 00:00:00 Completed [facility] IPV 2001-02-04 00:00:00 Completed [facility] DTaP, Unspecified Formulation 2001-02-04 00:00:00 Completed [facility] MMR 1998-07-29 00:00:00 Completed [facility] DPT/HIB 1998-07-29 00:00:00 Completed [facility] MMR 1998-07-29 00:00:00 Completed [facility] DPT/HIB 1998-07-29 00:00:00 Completed [facility] MMR 1998-07-29 00:00:00 Completed [facility] DPT/HIB 1998-07-29 00:00:00 Completed [facility] MMR 1998-07-29 00:00:00 Completed [facility] DPT/HIB 1998-07-29 00:00:00 Completed [facility] MMR 1998-07-29 00:00:00 Completed [facility] DPT/HIB 1998-07-29 00:00:00 Completed [facility] MMR 1998-07-29 00:00:00 Completed [facility] DPT/HIB 1998-07-29 00:00:00 Completed [facility] MMR 1998-07-29 00:00:00 Completed [facility] DPT/HIB 1998-07-29 00:00:00 Completed [facility] MMR 1998-07-29 00:00:00 Completed [facility] DPT/HIB 1998-07-29 00:00:00 Completed [facility] MMR 1998-07-29 00:00:00 Completed [facility] DPT/HIB 1998-07-29 00:00:00 Completed [facility] MMR 1998-07-29 00:00:00 Completed [facility] DPT/HIB 1998-07-29 00:00:00 Completed [facility] MMR 1998-07-29 00:00:00 Completed [facility] DPT/HIB 1998-07-29 00:00:00 Completed [facility] MMR 1998-07-29 00:00:00 Completed [facility] DPT/HIB 1998-07-29 00:00:00 Completed [facility] MMR 1998-07-29 00:00:00 Completed [facility] DPT/HIB 1998-07-29 00:00:00 Completed [facility] MMR 1998-07-29 00:00:00 Completed [facility] DPT/HIB 1998-07-29 00:00:00 Completed [facility] MMR 1998-07-29 00:00:00 Completed [facility] DPT/HIB 1998-07-29 00:00:00 Completed [facility] MMR 1998-07-29 00:00:00 Completed [facility] DPT/HIB 1998-07-29 00:00:00 Completed [facility] MMR 1998-07-29 00:00:00 Completed [facility] DPT/HIB 1998-07-29 00:00:00 Completed [facility] MMR 1998-07-29 00:00:00 Completed [facility] DPT/HIB 1998-07-29 00:00:00 Completed [facility] MMR 1998-07-29 00:00:00 Completed [facility] DPT/HIB 1998-07-29 00:00:00 Completed [facility] MMR 1998-07-29 00:00:00 Completed [facility] DPT/HIB 1998-07-29 00:00:00 Completed [facility] MMR 1998-07-29 00:00:00 Completed [facility] DPT/HIB 1998-07-29 00:00:00 Completed [facility] MMR 1998-07-29 00:00:00 Completed [facility] DPT/HIB 1998-07-29 00:00:00 Completed [facility] Poliovirus, Live, Oral, Trivalent 1998-02-04 00:00:00 Completed [facility] Varicella (varivax)(chicken pox) 1998-02-04 00:00:00 Completed [facility] Poliovirus, Live, Oral, Trivalent 1998-02-04 00:00:00 Completed [facility] Varicella (varivax)(chicken pox) 1998-02-04 00:00:00 Completed [facility] Poliovirus, Live, Oral, Trivalent 1998-02-04 00:00:00 Completed [facility] Varicella (varivax)(chicken pox) 1998-02-04 00:00:00 Completed [facility] Poliovirus, Live, Oral, Trivalent 1998-02-04 00:00:00 Completed [facility] Varicella (varivax)(chicken pox) 1998-02-04 00:00:00 Completed [facility] Poliovirus, Live, Oral, Trivalent 1998-02-04 00:00:00 Completed [facility] Varicella (varivax)(chicken pox) 1998-02-04 00:00:00 Completed [facility] Poliovirus, Live, Oral, Trivalent 1998-02-04 00:00:00 Completed [facility] Varicella (varivax)(chicken pox) 1998-02-04 00:00:00 Completed [facility] Poliovirus, Live, Oral, Trivalent 1998-02-04 00:00:00 Completed [facility] Varicella (varivax)(chicken pox) 1998-02-04 00:00:00 Completed [facility] Poliovirus, Live, Oral, Trivalent 1998-02-04 00:00:00 Completed [facility] Varicella (varivax)(chicken pox) 1998-02-04 00:00:00 Completed [facility] Poliovirus, Live, Oral, Trivalent 1998-02-04 00:00:00 Completed [facility] Varicella (varivax)(chicken pox) 1998-02-04 00:00:00 Completed [facility] Poliovirus, Live, Oral, Trivalent 1998-02-04 00:00:00 Completed [facility] Varicella (varivax)(chicken pox) 1998-02-04 00:00:00 Completed [facility] Poliovirus, Live, Oral, Trivalent 1998-02-04 00:00:00 Completed [facility] Varicella (varivax)(chicken pox) 1998-02-04 00:00:00 Completed [facility] Poliovirus, Live, Oral, Trivalent 1998-02-04 00:00:00 Completed [facility] Varicella (varivax)(chicken pox) 1998-02-04 00:00:00 Completed [facility] Poliovirus, Live, Oral, Trivalent 1998-02-04 00:00:00 Completed [facility] Varicella (varivax)(chicken pox) 1998-02-04 00:00:00 Completed [facility] Poliovirus, Live, Oral, Trivalent 1998-02-04 00:00:00 Completed [facility] Varicella (varivax)(chicken pox) 1998-02-04 00:00:00 Completed [facility] Poliovirus, Live, Oral, Trivalent 1998-02-04 00:00:00 Completed [facility] Varicella (varivax)(chicken pox) 1998-02-04 00:00:00 Completed [facility] Poliovirus, Live, Oral, Trivalent 1998-02-04 00:00:00 Completed [facility] Varicella (varivax)(chicken pox) 1998-02-04 00:00:00 Completed [facility] Poliovirus, Live, Oral, Trivalent 1998-02-04 00:00:00 Completed [facility] Varicella (varivax)(chicken pox) 1998-02-04 00:00:00 Completed [facility] Poliovirus, Live, Oral, Trivalent 1998-02-04 00:00:00 Completed [facility] Varicella (varivax)(chicken pox) 1998-02-04 00:00:00 Completed [facility] Poliovirus, Live, Oral, Trivalent 1998-02-04 00:00:00 Completed [facility] Varicella (varivax)(chicken pox) 1998-02-04 00:00:00 Completed [facility] Poliovirus, Live, Oral, Trivalent 1998-02-04 00:00:00 Completed [facility] Varicella (varivax)(chicken pox) 1998-02-04 00:00:00 Completed [facility] Poliovirus, Live, Oral, Trivalent 1998-02-04 00:00:00 Completed [facility] Varicella (varivax)(chicken pox) 1998-02-04 00:00:00 Completed [facility] Poliovirus, Live, Oral, Trivalent 1998-02-04 00:00:00 Completed [facility] Varicella (varivax)(chicken pox) 1998-02-04 00:00:00 Completed [facility] Hep B, Adol or Pedi Dosage 1997-10-28 00:00:00 Completed [facility] Hep B, Adol or Pedi Dosage 1997-10-28 00:00:00 Completed [facility] Hep B, Adol or Pedi Dosage 1997-10-28 00:00:00 Completed [facility] Hep B, Adol or Pedi Dosage 1997-10-28 00:00:00 Completed [facility] Hep B, Adol or Pedi Dosage 1997-10-28 00:00:00 Completed [facility] Hep B, Adol or Pedi Dosage 1997-10-28 00:00:00 Completed [facility] Hep B, Adol or Pedi Dosage 1997-10-28 00:00:00 Completed [facility] Hep B, Adol or Pedi Dosage 1997-10-28 00:00:00 Completed [facility] Hep B, Adol or Pedi Dosage 1997-10-28 00:00:00 Completed [facility] Hep B, Adol or Pedi Dosage 1997-10-28 00:00:00 Completed [facility] Hep B, Adol or Pedi Dosage 1997-10-28 00:00:00 Completed [facility] Hep B, Adol or Pedi Dosage 1997-10-28 00:00:00 Completed [facility] Hep B, Adol or Pedi Dosage 1997-10-28 00:00:00 Completed [facility] Hep B, Adol or Pedi Dosage 1997-10-28 00:00:00 Completed [facility] Hep B, Adol or Pedi Dosage 1997-10-28 00:00:00 Completed [facility] Hep B, Adol or Pedi Dosage 1997-10-28 00:00:00 Completed [facility] Hep B, Adol or Pedi Dosage 1997-10-28 00:00:00 Completed [facility] Hep B, Adol or Pedi Dosage 1997-10-28 00:00:00 Completed [facility] Hep B, Adol or Pedi Dosage 1997-10-28 00:00:00 Completed [facility] Hep B, Adol or Pedi Dosage 1997-10-28 00:00:00 Completed [facility] Hep B, Adol or Pedi Dosage 1997-10-28 00:00:00 Completed [facility] Hep B, Adol or Pedi Dosage 1997-10-28 00:00:00 Completed [facility] DTaP, Unspecified Formulation 1997-06-29 00:00:00 Completed [facility] Hib-HbOC 1997-06-29 00:00:00 Completed [facility] DTaP, Unspecified Formulation 1997-06-29 00:00:00 Completed [facility] Hib-HbOC 1997-06-29 00:00:00 Completed [facility] DTaP, Unspecified Formulation 1997-06-29 00:00:00 Completed [facility] Hib-HbOC 1997-06-29 00:00:00 Completed [facility] DTaP, Unspecified Formulation 1997-06-29 00:00:00 Completed [facility] Hib-HbOC 1997-06-29 00:00:00 Completed [facility] DTaP, Unspecified Formulation 1997-06-29 00:00:00 Completed [facility] Hib-HbOC 1997-06-29 00:00:00 Completed [facility] DTaP, Unspecified Formulation 1997-06-29 00:00:00 Completed [facility] Hib-HbOC 1997-06-29 00:00:00 Completed [facility] DTaP, Unspecified Formulation 1997-06-29 00:00:00 Completed [facility] Hib-HbOC 1997-06-29 00:00:00 Completed [facility] DTaP, Unspecified Formulation 1997-06-29 00:00:00 Completed [facility] Hib-HbOC 1997-06-29 00:00:00 Completed [facility] DTaP, Unspecified Formulation 1997-06-29 00:00:00 Completed [facility] Hib-HbOC 1997-06-29 00:00:00 Completed [facility] DTaP, Unspecified Formulation 1997-06-29 00:00:00 Completed [facility] Hib-HbOC 1997-06-29 00:00:00 Completed [facility] DTaP, Unspecified Formulation 1997-06-29 00:00:00 Completed [facility] Hib-HbOC 1997-06-29 00:00:00 Completed [facility] DTaP, Unspecified Formulation 1997-06-29 00:00:00 Completed [facility] Hib-HbOC 1997-06-29 00:00:00 Completed [facility] DTaP, Unspecified Formulation 1997-06-29 00:00:00 Completed [facility] Hib-HbOC 1997-06-29 00:00:00 Completed [facility] DTaP, Unspecified Formulation 1997-06-29 00:00:00 Completed [facility] Hib-HbOC 1997-06-29 00:00:00 Completed [facility] DTaP, Unspecified Formulation 1997-06-29 00:00:00 Completed [facility] Hib-HbOC 1997-06-29 00:00:00 Completed [facility] DTaP, Unspecified Formulation 1997-06-29 00:00:00 Completed [facility] Hib-HbOC 1997-06-29 00:00:00 Completed [facility] DTaP, Unspecified Formulation 1997-06-29 00:00:00 Completed [facility] Hib-HbOC 1997-06-29 00:00:00 Completed [facility] DTaP, Unspecified Formulation 1997-06-29 00:00:00 Completed [facility] Hib-HbOC 1997-06-29 00:00:00 Completed [facility] DTaP, Unspecified Formulation 1997-06-29 00:00:00 Completed [facility] Hib-HbOC 1997-06-29 00:00:00 Completed [facility] DTaP, Unspecified Formulation 1997-06-29 00:00:00 Completed [facility] Hib-HbOC 1997-06-29 00:00:00 Completed [facility] DTaP, Unspecified Formulation 1997-06-29 00:00:00 Completed [facility] Hib-HbOC 1997-06-29 00:00:00 Completed [facility] DTaP, Unspecified Formulation 1997-06-29 00:00:00 Completed [facility] Hib-HbOC 1997-06-29 00:00:00 Completed [facility] Hib-HbOC 1997-04-19 00:00:00 Completed [facility] IPV 1997-04-19 00:00:00 Completed [facility] DTaP, Unspecified Formulation 1997-04-19 00:00:00 Completed [facility] Hib-HbOC 1997-04-19 00:00:00 Completed [facility] IPV 1997-04-19 00:00:00 Completed [facility] DTaP, Unspecified Formulation 1997-04-19 00:00:00 Completed [facility] Hib-HbOC 1997-04-19 00:00:00 Completed [facility] IPV 1997-04-19 00:00:00 Completed [facility] DTaP, Unspecified Formulation 1997-04-19 00:00:00 Completed [facility] Hib-HbOC 1997-04-19 00:00:00 Completed [facility] IPV 1997-04-19 00:00:00 Completed [facility] DTaP, Unspecified Formulation 1997-04-19 00:00:00 Completed [facility] Hib-HbOC 1997-04-19 00:00:00 Completed [facility] IPV 1997-04-19 00:00:00 Completed [facility] DTaP, Unspecified Formulation 1997-04-19 00:00:00 Completed [facility] Hib-HbOC 1997-04-19 00:00:00 Completed [facility] IPV 1997-04-19 00:00:00 Completed [facility] DTaP, Unspecified Formulation 1997-04-19 00:00:00 Completed [facility] Hib-HbOC 1997-04-19 00:00:00 Completed [facility] IPV 1997-04-19 00:00:00 Completed [facility] DTaP, Unspecified Formulation 1997-04-19 00:00:00 Completed [facility] Hib-HbOC 1997-04-19 00:00:00 Completed [facility] IPV 1997-04-19 00:00:00 Completed [facility] DTaP, Unspecified Formulation 1997-04-19 00:00:00 Completed [facility] Hib-HbOC 1997-04-19 00:00:00 Completed [facility] IPV 1997-04-19 00:00:00 Completed [facility] DTaP, Unspecified Formulation 1997-04-19 00:00:00 Completed [facility] Hib-HbOC 1997-04-19 00:00:00 Completed [facility] IPV 1997-04-19 00:00:00 Completed [facility] DTaP, Unspecified Formulation 1997-04-19 00:00:00 Completed [facility] Hib-HbOC 1997-04-19 00:00:00 Completed [facility] IPV 1997-04-19 00:00:00 Completed [facility] DTaP, Unspecified Formulation 1997-04-19 00:00:00 Completed [facility] Hib-HbOC 1997-04-19 00:00:00 Completed [facility] IPV 1997-04-19 00:00:00 Completed [facility] DTaP, Unspecified Formulation 1997-04-19 00:00:00 Completed [facility] Hib-HbOC 1997-04-19 00:00:00 Completed [facility] IPV 1997-04-19 00:00:00 Completed [facility] DTaP, Unspecified Formulation 1997-04-19 00:00:00 Completed [facility] Hib-HbOC 1997-04-19 00:00:00 Completed [facility] IPV 1997-04-19 00:00:00 Completed [facility] DTaP, Unspecified Formulation 1997-04-19 00:00:00 Completed [facility] Hib-HbOC 1997-04-19 00:00:00 Completed [facility] IPV 1997-04-19 00:00:00 Completed [facility] DTaP, Unspecified Formulation 1997-04-19 00:00:00 Completed [facility] Hib-HbOC 1997-04-19 00:00:00 Completed [facility] IPV 1997-04-19 00:00:00 Completed [facility] DTaP, Unspecified Formulation 1997-04-19 00:00:00 Completed [facility] Hib-HbOC 1997-04-19 00:00:00 Completed [facility] IPV 1997-04-19 00:00:00 Completed [facility] DTaP, Unspecified Formulation 1997-04-19 00:00:00 Completed [facility] Hib-HbOC 1997-04-19 00:00:00 Completed [facility] IPV 1997-04-19 00:00:00 Completed [facility] DTaP, Unspecified Formulation 1997-04-19 00:00:00 Completed [facility] Hib-HbOC 1997-04-19 00:00:00 Completed [facility] IPV 1997-04-19 00:00:00 Completed [facility] DTaP, Unspecified Formulation 1997-04-19 00:00:00 Completed [facility] Hib-HbOC 1997-04-19 00:00:00 Completed [facility] IPV 1997-04-19 00:00:00 Completed [facility] DTaP, Unspecified Formulation 1997-04-19 00:00:00 Completed [facility] Hib-HbOC 1997-04-19 00:00:00 Completed [facility] IPV 1997-04-19 00:00:00 Completed [facility] DTaP, Unspecified Formulation 1997-04-19 00:00:00 Completed [facility] Hib-HbOC 1997-04-19 00:00:00 Completed [facility] IPV 1997-04-19 00:00:00 Completed [facility] DTaP, Unspecified Formulation 1997-04-19 00:00:00 Completed [facility] Hib-HbOC 1997-02-10 00:00:00 Completed [facility] IPV 1997-02-10 00:00:00 Completed [facility] DTaP, Unspecified Formulation 1997-02-10 00:00:00 Completed [facility] Hib-HbOC 1997-02-10 00:00:00 Completed [facility] IPV 1997-02-10 00:00:00 Completed [facility] DTaP, Unspecified Formulation 1997-02-10 00:00:00 Completed [facility] Hib-HbOC 1997-02-10 00:00:00 Completed [facility] IPV 1997-02-10 00:00:00 Completed [facility] DTaP, Unspecified Formulation 1997-02-10 00:00:00 Completed [facility] Hib-HbOC 1997-02-10 00:00:00 Completed [facility] IPV 1997-02-10 00:00:00 Completed [facility] DTaP, Unspecified Formulation 1997-02-10 00:00:00 Completed [facility] Hib-HbOC 1997-02-10 00:00:00 Completed [facility] IPV 1997-02-10 00:00:00 Completed [facility] DTaP, Unspecified Formulation 1997-02-10 00:00:00 Completed [facility] Hib-HbOC 1997-02-10 00:00:00 Completed [facility] IPV 1997-02-10 00:00:00 Completed [facility] DTaP, Unspecified Formulation 1997-02-10 00:00:00 Completed [facility] Hib-HbOC 1997-02-10 00:00:00 Completed [facility] IPV 1997-02-10 00:00:00 Completed [facility] DTaP, Unspecified Formulation 1997-02-10 00:00:00 Completed [facility] Hib-HbOC 1997-02-10 00:00:00 Completed [facility] IPV 1997-02-10 00:00:00 Completed [facility] DTaP, Unspecified Formulation 1997-02-10 00:00:00 Completed [facility] Hib-HbOC 1997-02-10 00:00:00 Completed [facility] IPV 1997-02-10 00:00:00 Completed [facility] DTaP, Unspecified Formulation 1997-02-10 00:00:00 Completed [facility] Hib-HbOC 1997-02-10 00:00:00 Completed [facility] IPV 1997-02-10 00:00:00 Completed [facility] DTaP, Unspecified Formulation 1997-02-10 00:00:00 Completed [facility] Hib-HbOC 1997-02-10 00:00:00 Completed [facility] IPV 1997-02-10 00:00:00 Completed [facility] DTaP, Unspecified Formulation 1997-02-10 00:00:00 Completed [facility] Hib-HbOC 1997-02-10 00:00:00 Completed [facility] IPV 1997-02-10 00:00:00 Completed [facility] DTaP, Unspecified Formulation 1997-02-10 00:00:00 Completed [facility] Hib-HbOC 1997-02-10 00:00:00 Completed [facility] IPV 1997-02-10 00:00:00 Completed [facility] DTaP, Unspecified Formulation 1997-02-10 00:00:00 Completed [facility] Hib-HbOC 1997-02-10 00:00:00 Completed [facility] IPV 1997-02-10 00:00:00 Completed [facility] DTaP, Unspecified Formulation 1997-02-10 00:00:00 Completed [facility] Hib-HbOC 1997-02-10 00:00:00 Completed [facility] IPV 1997-02-10 00:00:00 Completed [facility] DTaP, Unspecified Formulation 1997-02-10 00:00:00 Completed [facility] Hib-HbOC 1997-02-10 00:00:00 Completed [facility] IPV 1997-02-10 00:00:00 Completed [facility] DTaP, Unspecified Formulation 1997-02-10 00:00:00 Completed [facility] Hib-HbOC 1997-02-10 00:00:00 Completed [facility] IPV 1997-02-10 00:00:00 Completed [facility] DTaP, Unspecified Formulation 1997-02-10 00:00:00 Completed [facility] Hib-HbOC 1997-02-10 00:00:00 Completed [facility] IPV 1997-02-10 00:00:00 Completed [facility] DTaP, Unspecified Formulation 1997-02-10 00:00:00 Completed [facility] Hib-HbOC 1997-02-10 00:00:00 Completed [facility] IPV 1997-02-10 00:00:00 Completed [facility] DTaP, Unspecified Formulation 1997-02-10 00:00:00 Completed [facility] Hib-HbOC 1997-02-10 00:00:00 Completed [facility] IPV 1997-02-10 00:00:00 Completed [facility] DTaP, Unspecified Formulation 1997-02-10 00:00:00 Completed [facility] Hib-HbOC 1997-02-10 00:00:00 Completed [facility] IPV 1997-02-10 00:00:00 Completed [facility] DTaP, Unspecified Formulation 1997-02-10 00:00:00 Completed [facility] Hib-HbOC 1997-02-10 00:00:00 Completed [facility] IPV 1997-02-10 00:00:00 Completed [facility] DTaP, Unspecified Formulation 1997-02-10 00:00:00 Completed [facility] Hep B, Adol or Pedi Dosage 1997-01-19 00:00:00 Completed [facility] Hep B, Adol or Pedi Dosage 1997-01-19 00:00:00 Completed [facility] Hep B, Adol or Pedi Dosage 1997-01-19 00:00:00 Completed [facility] Hep B, Adol or Pedi Dosage 1997-01-19 00:00:00 Completed [facility] Hep B, Adol or Pedi Dosage 1997-01-19 00:00:00 Completed [facility] Hep B, Adol or Pedi Dosage 1997-01-19 00:00:00 Completed [facility] Hep B, Adol or Pedi Dosage 1997-01-19 00:00:00 Completed [facility] Hep B, Adol or Pedi Dosage 1997-01-19 00:00:00 Completed [facility] Hep B, Adol or Pedi Dosage 1997-01-19 00:00:00 Completed [facility] Hep B, Adol or Pedi Dosage 1997-01-19 00:00:00 Completed [facility] Hep B, Adol or Pedi Dosage 1997-01-19 00:00:00 Completed [facility] Hep B, Adol or Pedi Dosage 1997-01-19 00:00:00 Completed [facility] Hep B, Adol or Pedi Dosage 1997-01-19 00:00:00 Completed [facility] Hep B, Adol or Pedi Dosage 1997-01-19 00:00:00 Completed [facility] Hep B, Adol or Pedi Dosage 1997-01-19 00:00:00 Completed [facility] Hep B, Adol or Pedi Dosage 1997-01-19 00:00:00 Completed [facility] Hep B, Adol or Pedi Dosage 1997-01-19 00:00:00 Completed [facility] Hep B, Adol or Pedi Dosage 1997-01-19 00:00:00 Completed [facility] Hep B, Adol or Pedi Dosage 1997-01-19 00:00:00 Completed [facility] Hep B, Adol or Pedi Dosage 1997-01-19 00:00:00 Completed [facility] Hep B, Adol or Pedi Dosage 1997-01-19 00:00:00 Completed [facility] Hep B, Adol or Pedi Dosage 1997-01-19 00:00:00 Completed [facility] Hep B, Adol or Pedi Dosage 1996 00:00:00 Completed [facility] Hep B, Adol or Pedi Dosage 1996 00:00:00 Completed [facility] Hep B, Adol or Pedi Dosage 1996 00:00:00 Completed [facility] Hep B, Adol or Pedi Dosage 1996 00:00:00 Completed [facility] Hep B, Adol or Pedi Dosage 1996 00:00:00 Completed [facility] Hep B, Adol or Pedi Dosage 1996 00:00:00 Completed [facility] Hep B, Adol or Pedi Dosage 1996 00:00:00 Completed [facility] Hep B, Adol or Pedi Dosage 1996 00:00:00 Completed [facility] Hep B, Adol or Pedi Dosage 1996 00:00:00 Completed [facility] Hep B, Adol or Pedi Dosage 1996 00:00:00 Completed [facility] Hep B, Adol or Pedi Dosage 1996 00:00:00 Completed [facility] Hep B, Adol or Pedi Dosage 1996 00:00:00 Completed [facility] Hep B, Adol or Pedi Dosage 1996 00:00:00 Completed [facility] Hep B, Adol or Pedi Dosage 1996 00:00:00 Completed [facility] Hep B, Adol or Pedi Dosage 1996 00:00:00 Completed [facility] Hep B, Adol or Pedi Dosage 1996 00:00:00 Completed [facility] Hep B, Adol or Pedi Dosage 1996 00:00:00 Completed [facility] Hep B, Adol or Pedi Dosage 1996 00:00:00 Completed [facility] Hep B, Adol or Pedi Dosage 1996 00:00:00 Completed [facility] Hep B, Adol or Pedi Dosage 1996 00:00:00 Completed [facility] Hep B, Adol or Pedi Dosage 1996 00:00:00 Completed [facility] Hep B, Adol or Pedi Dosage 1996 00:00:00 Completed [facility] TDAP Unknown Completed [facility] HPV9 Unknown Completed [facility] Influenza Virus Vaccine Quad .5 mL IM 6+ MO (FLUZONE/FLULAVAL/FL UARIX) Unknown Completed [facility] DTaP, Unspecified Formulation Unknown Completed [facility] DPT/HIB Unknown Completed [facility] Hep B, Adol or Pedi Dosage Unknown Completed [facility] Hib-HbOC Unknown Completed [facility] Meningococcal Polysaccharide (groups A, C, Y and W-135) conjugate vaccine (MCV4P) Unknown Completed [facility] MMR Unknown Completed [facility] IPV Unknown Completed [facility] Poliovirus, Live, Oral, Trivalent Unknown Completed [facility] Varicella (varivax)(chicken pox) Unknown Completed [facility] TDAP Unknown Completed [facility] HPV9 Unknown Completed [facility] Influenza Virus Vaccine Quad .5 mL IM 6+ MO (FLUZONE/FLULAVAL/FL UARIX) Unknown Completed [facility] DTaP, Unspecified Formulation Unknown Completed [facility] DPT/HIB Unknown Completed [facility] Hep B, Adol or Pedi Dosage Unknown Completed [facility] Hib-HbOC Unknown Completed [facility] Meningococcal Polysaccharide (groups A, C, Y and W-135) conjugate vaccine (MCV4P) Unknown Completed [facility] MMR Unknown Completed [facility] IPV Unknown Completed [facility] Poliovirus, Live, Oral, Trivalent Unknown Completed [facility] Varicella (varivax)(chicken pox) Unknown Completed [facility] TDAP Unknown Completed [facility] HPV9 Unknown Completed [facility] Influenza Virus Vaccine Quad .5 mL IM 6+ MO (FLUZONE/FLULAVAL/FL UARIX) Unknown Completed [facility] DTaP, Unspecified Formulation Unknown Completed [facility] DPT/HIB Unknown Completed [facility] Hep B, Adol or Pedi Dosage Unknown Completed [facility] Hib-HbOC Unknown Completed [facility] Meningococcal Polysaccharide (groups A, C, Y and W-135) conjugate vaccine (MCV4P) Unknown Completed [facility] MMR Unknown Completed [facility] IPV Unknown Completed [facility] Poliovirus, Live, Oral, Trivalent Unknown Completed [facility] Varicella (varivax)(chicken pox) Unknown Completed [facility] TDAP Unknown Completed [facility] HPV9 Unknown Completed [facility] Influenza Virus Vaccine Quad .5 mL IM 6+ MO (FLUZONE/FLULAVAL/FL UARIX) Unknown Completed [facility] DTaP, Unspecified Formulation Unknown Completed [facility] DPT/HIB Unknown Completed [facility] Hep B, Adol or Pedi Dosage Unknown Completed [facility] Hib-HbOC Unknown Completed [facility] Meningococcal Polysaccharide (groups A, C, Y and W-135) conjugate vaccine (MCV4P) Unknown Completed [facility] MMR Unknown Completed [facility] IPV Unknown Completed [facility] Poliovirus, Live, Oral, Trivalent Unknown Completed [facility] Varicella (varivax)(chicken pox) Unknown Completed [facility] TDAP Unknown Completed [facility] HPV9 Unknown Completed [facility] Influenza Virus Vaccine Quad .5 mL IM 6+ MO (FLUZONE/FLULAVAL/FL UARIX) Unknown Completed [facility] DTaP, Unspecified Formulation Unknown Completed [facility] DPT/HIB Unknown Completed [facility] Hep B, Adol or Pedi Dosage Unknown Completed [facility] Hib-HbOC Unknown Completed [facility] Meningococcal Polysaccharide (groups A, C, Y and W-135) conjugate vaccine (MCV4P) Unknown Completed [facility] MMR Unknown Completed [facility] IPV Unknown Completed [facility] Poliovirus, Live, Oral, Trivalent Unknown Completed [facility] Varicella (varivax)(chicken pox) Unknown Completed [facility] TDAP Unknown Completed [facility] HPV9 Unknown Completed [facility] Influenza Virus Vaccine Quad .5 mL IM 6+ MO (FLUZONE/FLULAVAL/FL UARIX) Unknown Completed [facility] DTaP, Unspecified Formulation Unknown Completed [facility] DPT/HIB Unknown Completed [facility] Hep B, Adol or Pedi Dosage Unknown Completed [facility] Hib-HbOC Unknown Completed [facility] Meningococcal Polysaccharide (groups A, C, Y and W-135) conjugate vaccine (MCV4P) Unknown Completed [facility] MMR Unknown Completed [facility] IPV Unknown Completed [facility] Poliovirus, Live, Oral, Trivalent Unknown Completed [facility] Varicella (varivax)(chicken pox) Unknown Completed [facility] TDAP Unknown Completed [facility] HPV9 Unknown Completed [facility] Influenza Virus Vaccine Quad .5 mL IM 6+ MO (FLUZONE/FLULAVAL/FL UARIX) Unknown Completed [facility] DTaP, Unspecified Formulation Unknown Completed [facility] DPT/HIB Unknown Completed [facility] Hep B, Adol or Pedi Dosage Unknown Completed [facility] Hib-HbOC Unknown Completed [facility] Meningococcal Polysaccharide (groups A, C, Y and W-135) conjugate vaccine (MCV4P) Unknown Completed [facility] MMR Unknown Completed [facility] IPV Unknown Completed [facility] Poliovirus, Live, Oral, Trivalent Unknown Completed [facility] Varicella (varivax)(chicken pox) Unknown Completed [facility] TDAP Unknown Completed [facility] HPV9 Unknown Completed [facility] Influenza Virus Vaccine Quad .5 mL IM 6+ MO (FLUZONE/FLULAVAL/FL UARIX) Unknown Completed [facility] DTaP, Unspecified Formulation Unknown Completed [facility] DPT/HIB Unknown Completed [facility] Hep B, Adol or Pedi Dosage Unknown Completed [facility] Hib-HbOC Unknown Completed [facility] Meningococcal Polysaccharide (groups A, C, Y and W-135) conjugate vaccine (MCV4P) Unknown Completed [facility] MMR Unknown Completed [facility] IPV Unknown Completed [facility] Poliovirus, Live, Oral, Trivalent Unknown Completed [facility] Varicella (varivax)(chicken pox) Unknown Completed [facility] TDAP Unknown Completed [facility] HPV9 Unknown Completed [facility] Influenza Virus Vaccine Quad .5 mL IM 6+ MO (FLUZONE/FLULAVAL/FL UARIX) Unknown Completed [facility] DTaP, Unspecified Formulation Unknown Completed [facility] DPT/HIB Unknown Completed [facility] Hep B, Adol or Pedi Dosage Unknown Completed [facility] Hib-HbOC Unknown Completed [facility] Meningococcal Polysaccharide (groups A, C, Y and W-135) conjugate vaccine (MCV4P) Unknown Completed [facility] MMR Unknown Completed [facility] IPV Unknown Completed [facility] Poliovirus, Live, Oral, Trivalent Unknown Completed [facility] Varicella (varivax)(chicken pox) Unknown Completed [facility] TDAP Unknown Completed [facility] HPV9 Unknown Completed [facility] Influenza Virus Vaccine Quad .5 mL IM 6+ MO (FLUZONE/FLULAVAL/FL UARIX) Unknown Completed [facility] DTaP, Unspecified Formulation Unknown Completed [facility] DPT/HIB Unknown Completed [facility] Hep B, Adol or Pedi Dosage Unknown Completed [facility] Hib-HbOC Unknown Completed [facility] Meningococcal Polysaccharide (groups A, C, Y and W-135) conjugate vaccine (MCV4P) Unknown Completed [facility] MMR Unknown Completed [facility] IPV Unknown Completed [facility] Poliovirus, Live, Oral, Trivalent Unknown Completed [facility] Varicella (varivax)(chicken pox) Unknown Completed [facility] TDAP Unknown Completed [facility] HPV9 Unknown Completed [facility] Influenza Virus Vaccine Quad .5 mL IM 6+ MO (FLUZONE/FLULAVAL/FL UARIX) Unknown Completed [facility] DTaP, Unspecified Formulation Unknown Completed [facility] DPT/HIB Unknown Completed [facility] Hep B, Adol or Pedi Dosage Unknown Completed [facility] Hib-HbOC Unknown Completed [facility] Meningococcal Polysaccharide (groups A, C, Y and W-135) conjugate vaccine (MCV4P) Unknown Completed [facility] MMR Unknown Completed [facility] IPV Unknown Completed [facility] Poliovirus, Live, Oral, Trivalent Unknown Completed [facility] Varicella (varivax)(chicken pox) Unknown Completed [facility] TDAP Unknown Completed [facility] HPV9 Unknown Completed [facility] Influenza Virus Vaccine Quad .5 mL IM 6+ MO (FLUZONE/FLULAVAL/FL UARIX) Unknown Completed [facility] DTaP, Unspecified Formulation Unknown Completed [facility] DPT/HIB Unknown Completed [facility] Hep B, Adol or Pedi Dosage Unknown Completed [facility] Hib-HbOC Unknown Completed [facility] Meningococcal Polysaccharide (groups A, C, Y and W-135) conjugate vaccine (MCV4P) Unknown Completed [facility] MMR Unknown Completed [facility] IPV Unknown Completed [facility] Poliovirus, Live, Oral, Trivalent Unknown Completed [facility] Varicella (varivax)(chicken pox) Unknown Completed [facility] TDAP Unknown Completed [facility] HPV9 Unknown Completed [facility] Influenza Virus Vaccine Quad .5 mL IM 6+ MO (FLUZONE/FLULAVAL/FL UARIX) Unknown Completed [facility] DTaP, Unspecified Formulation Unknown Completed [facility] DPT/HIB Unknown Completed [facility] Hep B, Adol or Pedi Dosage Unknown Completed [facility] Hib-HbOC Unknown Completed [facility] Meningococcal Polysaccharide (groups A, C, Y and W-135) conjugate vaccine (MCV4P) Unknown Completed [facility] MMR Unknown Completed [facility] IPV Unknown Completed [facility] Poliovirus, Live, Oral, Trivalent Unknown Completed [facility] Varicella (varivax)(chicken pox) Unknown Completed [facility] TDAP Unknown Completed [facility] HPV9 Unknown Completed [facility] Influenza Virus Vaccine Quad .5 mL IM 6+ MO (FLUZONE/FLULAVAL/FL UARIX) Unknown Completed [facility] DTaP, Unspecified Formulation Unknown Completed [facility] DPT/HIB Unknown Completed [facility] Hep B, Adol or Pedi Dosage Unknown Completed [facility] Hib-HbOC Unknown Completed [facility] Meningococcal Polysaccharide (groups A, C, Y and W-135) conjugate vaccine (MCV4P) Unknown Completed [facility] MMR Unknown Completed [facility] IPV Unknown Completed [facility] Poliovirus, Live, Oral, Trivalent Unknown Completed [facility] Varicella (varivax)(chicken pox) Unknown Completed [facility] TDAP Unknown Completed [facility] HPV9 Unknown Completed [facility] Influenza Virus Vaccine Quad .5 mL IM 6+ MO (FLUZONE/FLULAVAL/FL UARIX) Unknown Completed [facility] DTaP, Unspecified Formulation Unknown Completed [facility] DPT/HIB Unknown Completed [facility] Hep B, Adol or Pedi Dosage Unknown Completed [facility] Hib-HbOC Unknown Completed [facility] Meningococcal Polysaccharide (groups A, C, Y and W-135) conjugate vaccine (MCV4P) Unknown Completed [facility] MMR Unknown Completed [facility] IPV Unknown Completed [facility] Poliovirus, Live, Oral, Trivalent Unknown Completed [facility] Varicella (varivax)(chicken pox) Unknown Completed [facility] DPT/HIB Unknown Completed [facility] Meningococcal Polysaccharide (groups A, C, Y and W-135) conjugate vaccine (MCV4P) Unknown Completed [facility] Poliovirus, Live, Oral, Trivalent Unknown Completed [facility] TDAP Unknown Completed [facility] HPV9 Unknown Completed [facility] Influenza Virus Vaccine Quad .5 mL IM 6+ MO (FLUZONE/FLULAVAL/FL UARIX) Unknown Completed [facility] DTaP, Unspecified Formulation Unknown Completed [facility] Hep B, Adol or Pedi Dosage Unknown Completed [facility] Hib-HbOC Unknown Completed [facility] MMR Unknown Completed [facility] IPV Unknown Completed [facility] Varicella (varivax)(chicken pox) Unknown Completed [facility] TDAP Unknown Completed [facility] HPV9 Unknown Completed [facility] Influenza Virus Vaccine Quad .5 mL IM 6+ MO (FLUZONE/FLULAVAL/FL UARIX) Unknown Completed [facility] DTaP, Unspecified Formulation Unknown Completed [facility] DPT/HIB Unknown Completed [facility] Hep B, Adol or Pedi Dosage Unknown Completed [facility] Hib-HbOC Unknown Completed [facility] Meningococcal Polysaccharide (groups A, C, Y and W-135) conjugate vaccine (MCV4P) Unknown Completed [facility] MMR Unknown Completed [facility] IPV Unknown Completed [facility] Poliovirus, Live, Oral, Trivalent Unknown Completed [facility] Varicella (varivax)(chicken pox) Unknown Completed [facility] TDAP Unknown Completed [facility] HPV9 Unknown Completed [facility] Influenza Virus Vaccine Quad .5 mL IM 6+ MO (FLUZONE/FLULAVAL/FL UARIX) Unknown Completed [facility] DTaP, Unspecified Formulation Unknown Completed [facility] DPT/HIB Unknown Completed [facility] Hep B, Adol or Pedi Dosage Unknown Completed [facility] Hib-HbOC Unknown Completed [facility] Meningococcal Polysaccharide (groups A, C, Y and W-135) conjugate vaccine (MCV4P) Unknown Completed [facility] MMR Unknown Completed [facility] IPV Unknown Completed [facility] Poliovirus, Live, Oral, Trivalent Unknown Completed [facility] Varicella (varivax)(chicken pox) Unknown Completed [facility] TDAP Unknown Completed [facility] HPV9 Unknown Completed [facility] Influenza Virus Vaccine Quad .5 mL IM 6+ MO (FLUZONE/FLULAVAL/FL UARIX) Unknown Completed [facility] DTaP, Unspecified Formulation Unknown Completed [facility] DPT/HIB Unknown Completed [facility] Hep B, Adol or Pedi Dosage Unknown Completed [facility] Hib-HbOC Unknown Completed [facility] Meningococcal Polysaccharide (groups A, C, Y and W-135) conjugate vaccine (MCV4P) Unknown Completed [facility] MMR Unknown Completed [facility] IPV Unknown Completed [facility] Poliovirus, Live, Oral, Trivalent Unknown Completed [facility] Varicella (varivax)(chicken pox) Unknown Completed [facility] TDAP Unknown Completed [facility] HPV9 Unknown Completed [facility] Influenza Virus Vaccine Quad .5 mL IM 6+ MO (FLUZONE/FLULAVAL/FL UARIX) Unknown Completed [facility] DTaP, Unspecified Formulation Unknown Completed [facility] DPT/HIB Unknown Completed [facility] Hep B, Adol or Pedi Dosage Unknown Completed [facility] Hib-HbOC Unknown Completed [facility] Meningococcal Polysaccharide (groups A, C, Y and W-135) conjugate vaccine (MCV4P) Unknown Completed [facility] MMR Unknown Completed [facility] IPV Unknown Completed [facility] Poliovirus, Live, Oral, Trivalent Unknown Completed [facility] Varicella (varivax)(chicken pox) Unknown Completed [facility] DPT/HIB Unknown Completed [facility] Meningococcal Polysaccharide (groups A, C, Y and W-135) conjugate vaccine (MCV4P) Unknown Completed [facility] Poliovirus, Live, Oral, Trivalent Unknown Completed [facility] TDAP Unknown Completed [facility] HPV9 Unknown Completed [facility] Influenza Virus Vaccine Quad .5 mL IM 6+ MO (FLUZONE/FLULAVAL/FL UARIX) Unknown Completed [facility] DTaP, Unspecified Formulation Unknown Completed [facility] Hep B, Adol or Pedi Dosage Unknown Completed [facility] Hib-HbOC Unknown Completed [facility] MMR Unknown Completed [facility] IPV Unknown Completed [facility] Varicella (varivax)(chicken pox) Unknown Completed [facility] DTaP, Unspecified Formulation Unknown Completed [facility] DPT/HIB Unknown Completed [facility] Hep B, Adol or Pedi Dosage Unknown Completed [facility] Hib-HbOC Unknown Completed [facility] Meningococcal Polysaccharide (groups A, C, Y and W-135) conjugate vaccine (MCV4P) Unknown Completed [facility] MMR Unknown Completed [facility] IPV Unknown Completed [facility] Poliovirus, Live, Oral, Trivalent Unknown Completed [facility] Varicella (varivax)(chicken pox) Unknown Completed [facility] TDAP Unknown Completed [facility] HPV9 Unknown Completed [facility] Influenza Virus Vaccine Quad .5 mL IM 6+ MO (FLUZONE/FLULAVAL/FL UARIX) Unknown Completed [facility] TDAP Unknown Completed [facility] HPV9 Unknown Completed [facility] Influenza Virus Vaccine Quad .5 mL IM 6+ MO (FLUZONE/FLULAVAL/FL UARIX) Unknown Completed [facility] DTaP, Unspecified Formulation Unknown Completed [facility] DPT/HIB Unknown Completed [facility] Hep B, Adol or Pedi Dosage Unknown Completed [facility] Hib-HbOC Unknown Completed [facility] Meningococcal Polysaccharide (groups A, C, Y and W-135) conjugate vaccine (MCV4P) Unknown Completed [facility] MMR Unknown Completed [facility] IPV Unknown Completed [facility] Poliovirus, Live, Oral, Trivalent Unknown Completed [facility] Varicella (varivax)(chicken pox) Unknown Completed [facility] TDAP Unknown Completed [facility] HPV9 Unknown Completed [facility] Influenza Virus Vaccine Quad .5 mL IM 6+ MO (FLUZONE/FLULAVAL/FL UARIX) Unknown Completed [facility] DTaP, Unspecified Formulation Unknown Completed [facility] DPT/HIB Unknown Completed [facility] Hep B, Adol or Pedi Dosage Unknown Completed [facility] Hib-HbOC Unknown Completed [facility] Meningococcal Polysaccharide (groups A, C, Y and W-135) conjugate vaccine (MCV4P) Unknown Completed [facility] MMR Unknown Completed [facility] IPV Unknown Completed [facility] Poliovirus, Live, Oral, Trivalent Unknown Completed [facility] Varicella (varivax)(chicken pox) Unknown Completed [facility] TDAP Unknown Completed [facility] HPV9 Unknown Completed [facility] Influenza Virus Vaccine Quad .5 mL IM 6+ MO (FLUZONE/FLULAVAL/FL UARIX) Unknown Completed [facility] DTaP, Unspecified Formulation Unknown Completed [facility] DPT/HIB Unknown Completed [facility] Hep B, Adol or Pedi Dosage Unknown Completed [facility] Hib-HbOC Unknown Completed [facility] Meningococcal Polysaccharide (groups A, C, Y and W-135) conjugate vaccine (MCV4P) Unknown Completed [facility] MMR Unknown Completed [facility] IPV Unknown Completed [facility] Poliovirus, Live, Oral, Trivalent Unknown Completed [facility] Varicella (varivax)(chicken pox) Unknown Completed [facility] DPT/HIB Unknown Completed [facility] Meningococcal Polysaccharide (groups A, C, Y and W-135) conjugate vaccine (MCV4P) Unknown Completed [facility] Poliovirus, Live, Oral, Trivalent Unknown Completed [facility] TDAP Unknown Completed [facility] HPV9 Unknown Completed [facility] Influenza Virus Vaccine Quad .5 mL IM 6+ MO (FLUZONE/FLULAVAL/FL UARIX) Unknown Completed [facility] DTaP, Unspecified Formulation Unknown Completed [facility] Hep B, Adol or Pedi Dosage Unknown Completed [facility] Hib-HbOC Unknown Completed [facility] MMR Unknown Completed [facility] IPV Unknown Completed [facility] Varicella (varivax)(chicken pox) Unknown Completed [facility] Vital Signs Vital Name Observation Time Observation Value Comments S ource Systolic blood pressure 2023-12-04 19:21:00 108 mm[Hg] [facility] Diastolic blood pressure 2023-12-04 19:21:00 69 mm[Hg] [facility] Heart rate 2023-12-04 19:21:00 75 /min [facility] Body temperature 2023-12-04 19:21:00 36.78 Mariella [facility] Respiratory rate 2023-12-04 19:21:00 18 /min [facility] Body height 2023-12-04 19:21:00 167.6 cm [facility] Body weight 2023-12-04 19:21:00 73.483 kg [facility] BMI 2023-12-04 19:21:00 26.15 kg/m2 [facility] Systolic blood pressure 2023-11-13 22:30:00 130 mm[Hg] [facility] Diastolic blood pressure 2023-11-13 22:30:00 80 mm[Hg] [facility] Heart rate 2023-11-13 22:30:00 93 /min [facility] Body temperature 2023-11-13 22:30:00 36.11 Mariella [facility] Body height 2023-11-13 22:30:00 170.2 cm [facility] Body weight 2023-11-13 22:30:00 72.303 kg [facility] BMI 2023-11-13 22:30:00 24.97 kg/m2 [facility] Systolic blood pressure 2023-11-06 21:08:00 110 mm[Hg] [facility] Diastolic blood pressure 2023-11-06 21:08:00 68 mm[Hg] [facility] Heart rate 2023-11-06 21:08:00 75 /min [facility] Body temperature 2023-11-06 21:08:00 36.61 Mariella [facility] Respiratory rate 2023-11-06 21:08:00 17 /min [facility] Body height 2023-11-06 21:08:00 170.2 cm [facility] Body weight 2023-11-06 21:08:00 75.116 kg [facility] BMI 2023-11-06 21:08:00 25.94 kg/m2 [facility] Systolic blood pressure 2023-10-25 19:24:00 106 mm[Hg] [facility] Diastolic blood pressure 2023-10-25 19:24:00 71 mm[Hg] [facility] Heart rate 2023-10-25 19:24:00 87 /min [facility] Body temperature 2023-10-25 19:24:00 36.72 Mariella [facility] Respiratory rate 2023-10-25 19:24:00 16 /min [facility] Body height 2023-10-25 19:24:00 170.2 cm [facility] Body weight 2023-10-25 19:24:00 75.297 kg [facility] BMI 2023-10-25 19:24:00 26.00 kg/m2 [facility] Systolic blood pressure 2023-09-27 15:00:00 106 mm[Hg] [facility] Diastolic blood pressure 2023-09-27 15:00:00 64 mm[Hg] [facility] Heart rate 2023-09-27 15:00:00 61 /min [facility] Body temperature 2023-09-27 15:00:00 36.33 Mariella [facility] Respiratory rate 2023-09-27 15:00:00 18 /min [facility] Oxygen saturation in Arterial blood by Pulse oximetry 2023-09-27 15:00:00 98 /min [facility] Body height 2023-09-25 14:00:00 170.2 cm [facility] Body weight 2023-09-25 14:00:00 80.74 kg [facility] BMI 2023-09-25 14:00:00 27.88 kg/m2 [facility] Systolic blood pressure 2023-09-20 20:39:00 104 mm[Hg] [facility] Diastolic blood pressure 2023-09-20 20:39:00 66 mm[Hg] [facility] Heart rate 2023-09-20 20:39:00 89 /min [facility] Respiratory rate 2023-09-20 20:39:00 18 /min [facility] Body height 2023-09-20 20:39:00 170.2 cm [facility] Body weight 2023-09-20 20:39:00 80.287 kg [facility] BMI 2023-09-20 20:39:00 27.72 kg/m2 [facility] Systolic blood pressure 2023-09-13 16:29:00 107 mm[Hg] [facility] Diastolic blood pressure 2023-09-13 16:29:00 72 mm[Hg] [facility] Heart rate 2023-09-13 16:29:00 98 /min [facility] Respiratory rate 2023-09-13 16:29:00 18 /min [facility] Body height 2023-09-13 16:29:00 170.2 cm [facility] Body weight 2023-09-13 16:29:00 77.565 kg [facility] BMI 2023-09-13 16:29:00 26.78 kg/m2 [facility] Systolic blood pressure 2023-08-23 19:08:00 126 mm[Hg] [facility] Diastolic blood pressure 2023-08-23 19:08:00 84 mm[Hg] [facility] Heart rate 2023-08-23 19:08:00 99 /min [facility] 2023-08-23 19:08:00 18 /min [facility] Body height 2023-08-23 19:08:00 170.2 [facility] 2023-08-23 19:08:00 78.019 [facility] BMI 2023-08-23 19:08:00 26.94 kg/m2 [facility] Systolic blood pressure 2023-08-09 18:33:00 120 mm[Hg] [facility] Diastolic blood pressure 2023-08-09 18:33:00 70 mm[Hg] [facility] Heart rate 2023-08-09 18:33:00 71 /min [facility] 2023-08-09 18:33:00 18 /min [facility] Body height 2023-08-09 18:33:00 170.2 cm [facility] Body weight 2023-08-09 18:33:00 78.926 [facility] BMI 2023-08-09 18:33:00 27.25 kg/m2 [facility] Systolic blood pressure 2023-07-19 17:08:00 126 mm[Hg] [facility] Diastolic blood pressure 2023-07-19 17:08:00 82 mm[Hg] [facility] Heart rate 2023-07-19 17:08:00 94 /min [facility] Res[facility] 2023-07-19 17:08:00 18 /min [facility] Body height 2023-07-19 17:08:00 170.2 cm [facility] Body weight 2023-07-19 17:08:00 79.379 [facility] BMI 2023-07-19 17:08:00 27.41 kg/m2 [facility] Systolic blood pressure 2023-06-14 16:26:00 114 mm[Hg] [facility] Diastolic blood pressure 2023-06-14 16:26:00 75 mm[Hg] [facility] Heart rate 2023-06-14 16:26:00 75 /min [facility] Respiratory rate 2023-06-14 16:26:00 18 /min [facility] Body height 2023-06-14 16:26:00 170.2 cm [facility] Body weight 2023-06-14 16:26:00 75.297 kg [facility] BMI 2023-06-14 16:26:00 26.00 kg/m2 [facility] Systolic blood pressure 2023-05-17 16:06:00 119 mm[Hg] [facility] Diastolic blood pressure 2023-05-17 16:06:00 73 mm[Hg] [facility] Heart rate 2023-05-17 16:06:00 116 /min [facility] Respiratory rate 2023-05-17 16:06:00 18 /min [facility] Body height 2023-05-17 16:06:00 170.2 cm [facility] Body weight 2023-05-17 16:06:00 73.029 kg [facility] BMI 2023-05-17 16:06:00 25.22 kg/m2 [facility] Systolic blood pressure 2023-05-07 01:50:00 115 mm[Hg] [facility] Diastolic blood pressure 2023-05-07 01:50:00 70 mm[Hg] [facility] Heart rate 2023-05-07 01:50:00 93 /min [facility] Body temperature 2023-05-07 01:50:00 37.28 Mariella [facility] Respiratory rate 2023-05-07 01:50:00 16 /min [facility] Body height 2023-05-07 01:50:00 170.2 cm [facility] Body weight 2023-05-07 01:50:00 68.947 kg [facility] BMI 2023-05-07 01:50:00 23.81 kg/m2 [facility] Oxygen saturation in Arterial blood by Pulse oximetry 2023-05-07 01:50:00 96 /min [facility] Systolic blood pressure 2023-04-19 15:37:00 125 mm[Hg] [facility] Diastolic blood pressure 2023-04-19 15:37:00 81 mm[Hg] [facility] Heart rate 2023-04-19 15:37:00 97 /min [facility] Body height 2023-04-19 15:37:00 170.2 cm [facility] Body weight 2023-04-19 15:37:00 71.487 kg [facility] BMI 2023-04-19 15:37:00 24.68 kg/m2 [facility] Systolic blood pressure 2023-03-29 19:30:00 113 mm[Hg] [facility] Diastolic blood pressure 2023-03-29 19:30:00 69 mm[Hg] [facility] Heart rate 2023-03-29 19:30:00 88 /min [facility] Respiratory rate 2023-03-29 19:30:00 18 /min [facility] Body weight 2023-03-29 19:30:00 69.4 kg [facility] BMI 2023-03-29 19:30:00 23.96 kg/m2 [facility] Systolic blood pressure 2023-03-22 13:59:00 111 mm[Hg] [facility] Diastolic blood pressure 2023-03-22 13:59:00 73 mm[Hg] [facility] Heart rate 2023-03-22 13:59:00 73 /min [facility] Body temperature 2023-03-22 13:59:00 36.56 Mariella [facility] Body height 2023-03-22 13:59:00 170.2 cm [facility] Body weight 2023-03-22 13:59:00 70.897 kg [facility] BMI 2023-03-22 13:59:00 24.48 kg/m2 [facility] Systolic blood pressure 2023-03-07 02:54:00 125 mm[Hg] [facility] Diastolic blood pressure 2023-03-07 02:54:00 84 mm[Hg] [facility] Heart rate 2023-03-07 02:54:00 107 /min [facility] Body temperature 2023-03-07 02:54:00 37 Mariella [facility] Respiratory rate 2023-03-07 02:54:00 18 /min [facility] Body height 2023-03-07 02:54:00 170.2 cm [facility] Body weight 2023-03-07 02:54:00 74.844 kg [facility] BMI 2023-03-07 02:54:00 25.84 kg/m2 [facility] Oxygen saturation in Arterial blood by Pulse oximetry 2023-03-07 02:54:00 97 /min [facility] Systolic blood pressure 2022-12-20 19:25:00 121 mm[Hg] [facility] Diastolic blood pressure 2022-12-20 19:25:00 73 mm[Hg] [facility] Heart rate 2022-12-20 19:25:00 91 /min [facility] Body temperature 2022-12-20 19:25:00 37 Mariella [facility] Respiratory rate 2022-12-20 19:25:00 18 /min [facility] Body height 2022-12-20 19:25:00 170.2 cm [facility] Body weight 2022-12-20 19:25:00 72.15 kg [facility] BMI 2022-12-20 19:25:00 24.91 kg/m2 [facility] Systolic blood pressure 2022-07-18 19:19:00 129 mm[Hg] [facility] Diastolic blood pressure 2022-07-18 19:19:00 87 mm[Hg] [facility] Heart rate 2022-07-18 19:19:00 101 /min [facility] Body temperature 2022-07-18 19:19:00 36.67 Mariella [facility] Respiratory rate 2022-07-18 19:19:00 18 /min [facility] Body height 2022-07-18 19:19:00 170.2 cm [facility] Body weight 2022-07-18 19:19:00 73.71 kg [facility] BMI 2022-07-18 19:19:00 25.45 kg/m2 [facility] Systolic blood pressure 2021-12-14 13:58:00 115 mm[Hg] [facility] Diastolic blood pressure 2021-12-14 13:58:00 65 mm[Hg] [facility] Heart rate 2021-12-14 13:58:00 82 /min [facility] Body temperature 2021-12-14 13:58:00 36.5 Mariella [facility] Respiratory rate 2021-12-14 13:58:00 16 /min [facility] Body height 2021-12-14 13:58:00 170.2 cm [facility] Body weight 2021-12-14 13:58:00 74.39 kg [facility] BMI 2021-12-14 13:58:00 25.69 kg/m2 [facility] Procedures Procedure Date / Time Performed Performing Clinician Source CONSENT FOR CONTRACEPTION 2023-11-06 06:01:00 Doctor Unassigned, [place] [facility] POCT TEST 2023-11-06 00:00:00 Marcia Ocampo [facility] CBC WITH DIFF 2023-09-26 10:41:00 Marcia Ocampo [facility] POCT GLUCOSE (AUTOMATED) 2023-09-26 03:25:00 Marcia Ocampo [facility] POCT GLUCOSE (AUTOMATED) 2023-09-26 00:48:00 Marcai Ocampo [facility] POCT GLUCOSE (AUTOMATED) 2023-09-25 19:41:00 Marcia Ocampo [facility] CENTRAL NEURAXIAL BLOCK 2023-09-25 16:25:00 Sachin Garza [facility] POCT GLUCOSE (AUTOMATED) 2023-09-25 15:03[facility]00 [facility] 2023-09-25 14:08[facility] IMMUNE GLOBULIN 2023-09-25 14:08:00 DamarisMarcia [facility] CBC WITH DIFF 2023-09-24 18:37:00 DamarisMarcia [facility] ASSIGNMENT OF BENEFITS 2023-09-24 18:12:12 Docto r Unassigned, [place] [facility] CONSENT/REFUSAL FOR DIAGNOSIS AND TREATMENT 2023-09-24 18:11:48 Doctor Unassigned, [place] [facility] PHYSICIAN ORDERS 2023-09-20 06:01:00 Doctor Unas signed, [place] [facility] CBC WITH DIFF 2023-09-13 17:53:00 DamarisMarcia [facility] DSU PRE-OP 2023-09-13 06:01:00 Doctor Unass igned, [place] [facility] POCT URINALYSIS W/O SPECIFIC GRAVITY 2023-09-13 00:00:00 [facility] ULTRASOUND 2023-09-12 20:34:00 Damaris [facility] POCT URINALYSIS W/O SPECIFIC GRAVITY 2023-08-23 00:00:00 Damaris [facility] TDAP VACCINE, >11 YRS, IM 2023-08-09 18:28:34 Damaris [facility] SECOND AND THIRD TRIMESTER ULTRASOUND 2023-08-09 15:44:00 Damaris [facility] POCT URINALYSIS W/O SPECIFIC GRAVITY 2023-08-09 00:00:00 Damaris [facility] POCT URINALYSIS W/O SPECIFIC GRAVITY 2023-07-19 00:00:00 Damaris [facility] POCT URINALYSIS W/O SPECIFIC GRAVITY 2023-06-14 00:00:00 Damaris [facility] SECOND AND THIRD TRIMESTER ULTRASOUND 2023-05-29 17:25:00 Damaris [facility] SECOND AND THIRD TRIMESTER ULTRASOUND 2023-05-29 17:10:00 Marcia Ocampo [facility] POCT URINALYSIS W/O SPECIFIC GRAVITY 2023-05-17 00:00:00 Marcia Ocampo [facility] ASSIGNMENT OF BENEFITS 2023-05-07 03:00:45 Docto r Unassigned, [place] [facility] NE INCISION & DRAINAGE ABSCESS COMPLICATED/MULTIPLE 2023-05-07 02:54:06 Atul Sena [facility] CONSENT/REFUSAL FOR DIAGNOSIS AND TREATMENT 2023-05-07 01:48:05 Doctor Unassigned, [place] [facility] POCT URINALYSIS W/O SPECIFIC GRAVITY 2023-04-19 00:00:00 Marcia Ocampo [facility] GLYCOSYLATED HEMOGLOBIN (A1C) 2023-03-27 16:12:00 Marcia Ocampo [facility] <14 WEEKS US LIMITED 2023-03-22 15:38:34 Damaris Marcia [facility] SCANNED LAB RESULTS 2023-03-22 05:01:00 Doctor Leisa pierce, [place] [facility] POCT URINALYSIS W/O SPECIFIC GRAVITY 2023-03-22 00:00:00 Damaris Marcia [facility] URINALYSIS 2023-03-07 03:08:00 Ramirez Sanchez [facility] POCT TEST 2023-03-07 03:07:00 Ramirez Sanchez [facility] NOTICE OF PRIVACY PRACTICES 2023-03-07 02:49:46 Doctor Unassigned, [place] [facility] CONSENT/REFUSAL FOR DIAGNOSIS AND TREATMENT 2023-03-07 02:47:26 Doctor Unassigned, [place] [facility] ASSIGNMENT OF BENEFITS 2022-12-20 19:06:39 Docto r Unassigned, [place] [facility] FLU VACC ([id number]), 6+ MONTHS, IM, QUAD 2021-12-14 14:41:01 German Back [facility] Encounters Start Date/Time End Date/Time Encounter Type Admission Type Attending Clinicians Care Facility Care Department Encounter ID Source 2021-07-06 18:46:[address] [facility] [id number] [facility] 2024-01-31 08:00:00 2024-01-31 08:00:00 Outpatient R MARCIA OCAMPO [facility] [id number] [facility] 2023-12-20 11:30:00 2023-12-20 11:30:00 Outpatient R CARITO PICHARDO [facility] [id number] [facility] 2023-12-18 13:30:00 2023-12-18 13:30:00 Outpatient R RAFICARITO CHU [facility] [id number] [facility] 2023-12-04 14:00:00 2023-12-04 14:37:15 Outpatient R RAFICARITO CHU [facility] [id number] [facility] 2023-12-04 14:00:00 2023-12-04 14:37:15 Office Visit MelvinaCarito [facility] 1.2.840.114 350.1.13.10 4.2.7.2.686 [id number] [facility] 2023-12-03 14:00:00 2023-12-03 14:00:00 Outpatient R CARITO PICHARDO [facility] [id number] [facility] 2023-11-29 13:45:00 2023-11-29 13:45:00 Outpatient R MARCIA OCAMPO [facility] [id number] [facility] 2023-11-19 00:00:00 2023-11-19 00:00:00 Refill RafiCarito chu [facility] 1.2.840.114 350.1.13.10 4.2.7.2.686 [id number] 134 [id number] [facility] 2023-11-13 16:00:00 2023-11-13 16:44:43 Outpatient MARCIA STEWART [facility] [id number] [facility] 2023-11-13 16:00:00 2023-11-13 16:44:43 [facility] 1.2.840.114 350.1.13.10 4.2.7.2.686 [id number] [facility] 2023-11-13 00:00:00 2023-11-13 00:00:00 Telephone Marcia Ocampo [facility] 1.2.840.114 350.1.13.10 4.2.7.2.686 [id number] [facility] 2023-11-06 15:15:00 2023-11-06 15:36:47 Outpatient R MARCIA OCAMPO [facility] [id number] [facility] 2023-11-06 15:15:00 2023-11-06 15:36:47 Office Visit Marcia Ocampo [facility] 1.2.840.114 350.1.13.10 4.2.7.2.686 [id number] [facility] 2023-11-06 00:00:00 2023-11-06 00:00:00 Orders Only Doctor Unassigned, [place] [facility] 1.2.840.114 350.1.13.10 4.2.7.2.686 [id number] [facility] 2023-11-01 00:00:00 2023-11-01 00:00:00 Telephone DamarisMarcia [facility] 1.2.840.114 350.1.13.10 4.2.7.2.686 [id number] [facility] 2023-10-25 13:15:00 2023-10-25 13:41:03 Outpatient R MARCIA OCAMPO [facility] [id number] [facility] 2023-10-25 13:15:00 2023-10-25 13:41:03 Routine Visit OcampoMarcia [facility] 1.2.840.114 350.1.13.10 4.2.7.2.686 [id number] [facility] 2023-10-11 15:15:00 2023-10-11 15:15:00 Outpatient R MARCIA OCAMPO [facility] [id number] [facility] 2023-09-25 06:27:00 2023-09-27 10:00:00 Inpatient P MARCIA OCAMPO [facility] [id number] [facility] 2023-09-25 06:27:00 2023-09-27 10:00:00 Hospital Encounter Marcia Ocampo [facility] 1.2.840.114 350.1.13.10 4.2.7.2.686 [id number] [facility] 2023-09-25 10:31:00 2023-09-26 02:10:00 Anesthesia Event Sachin Garcia, [facility] 1.2.840.114 350.1.13.10 4.2.7.2.686 [id number] [facility] 2023-09-24 12:15:00 2023-09-24 12:30:00 Bookkeeper Receptionist Visit Pob, Adc Lab Main Marcia Ocampo [facility] 1.2.840.114 350.1.13.10 4.2.7.2.686 [id number] [facility] 2023-09-24 12:15:00 2023-09-24 12:15:00 Outpatient R MARCIA OCAMPO [facility] [id number] [facility] 2023-09-20 14:45:00 2023-09-20 15:06:34 Outpatient R MARCIA OCAMPO [facility] [id number] [facility] 2023-09-20 14:45:00 2023-09-20 15:06:34 Routine Visit Marcia Ocampo [facility] 1.2840.114 350.1.13.10 4.2.7.2.686 [id number] [facility] 2023-09-20 00:00:00 2023-09-20 00:00:00 Orders Only Doctor Unassigned, [place] [facility] 1.2840.114 350.1.13.10 4.2.7.2.686 [id number] [facility] 2023-09-16 09:30:00 2023-09-16 09:30:00 Outpatient R [facility] [id number] [facility] 2023-09-13 11:30:00 2023-09-13 12:27:12 Bookkeeper Receptionist Visit Lab, Ang - Db [facility] 1.2840.114 350.1.13.10 4.2.7.2.686 [id number] [facility] 2023-09-13 11:30:00 2023-09-13 11:30:00 Outpatient R DAMARIS [facility] [id number] [facility] 2023-09-13 10:30:00 2023-09-13 10:44:17 Routine Visit Marcia Ocampo [facility] 1.20.114 350.1.13.10 4.2.7.2.686 [id number] [facility] 2023-09-13 00:00:00 2023-09-13 00:00:00 Orders Only Doctor Unassigned, [place] [facility] 1.2840.114 350.1.13.10 4.2.7.2.686 [id number] [facility] 2023-09-12 14:45:00 2023-09-12 14:51:15 Outpatient P LEONA PRIETO [facility] [id number] [facility] 2023-09-12 14:45:00 2023-09-12 14:51:15 Bookkeeper Receptionist Visit Ultrasound, Joslyn PrietoLeona Abdi [facility] SPECIAL TRACKWORK [facility] 1.2.840.114 350.1.13.10 4.2.7.2.686 [id number] [facility] 2023-09-06 15:15:00 2023-09-06 15:15:00 Outpatient R MARCIA OCAMPO [facility] [id number] [facility] 2023-09-06 00:00:00 2023-09-06 00:00:[address] [facility] 1.2.840.114 350.1.13.10 4.2.7.2.686 [id number] [facility] 2023-08-23 13:15:00 2023-08-23 13:20:59 Outpatient R MARCIA OCAMPO [facility] [id number] [facility] 2023-08-23 13:15:00 2023-08-23 13:20:59 Routine Visit Marcia Ocampo [facility] 1.2.840.114 350.1.13.10 4.2.7.2.686 [id number] [facility] 2023-08-09 12:45:00 2023-08-09 12:48:32 Routine Visit Marcia Ocampo [facility] 1.2.840.114 350.1.13.10 4.2.7.2.686 [id number] [facility] 2023-08-09 09:30:00 2023-08-09 09:53:53 Outpatient P CONNERLEONA [facility] [id number] [facility] 2023-08-09 09:30:00 2023-08-09 09:53:53 Bookkeeper Receptionist Visit Ultrasound, Joslyn PrietoLeona Ikuvdianesatish [facility] SPECIAL TRACKWORK [facility] 1.114 350.1.13.10 4.2.7.2.686 [id number] [facility] 2023-08-08 10:45:00 2023-08-08 11:22:36 Outpatient R DAMARIS [facility] [id number] [facility] 2023-08-08 10:45:00 2023-08-08 11:00:00 Bookkeeper Receptionist Visit Lab, Juan Carlos Ocampo [facility] MEDICAL OFFICE [facility] 1.114 350.1.13.10 4.2.7.2.686 [id number] [facility] 2023-07-22 09:15:00 2023-07-22 09:15:00 Outpatient R [facility] [id number] [facility] 2023-07-19 11:15:00 2023-07-19 11:25:44 Outpatient R DAMARIS [facility] [id number] [facility] 2023-07-19 11:15:00 2023-07-19 11:25:44 [facility]ine [facility] 1.114 350.1.13.10 4.2.7.2.686 [id number] [facility] 2023-07-10 00:00:00 2023-07-10 00:00:00 Outpatient GC_GCBZW_Ka joea_S [facility] [id number] [facility] 2023-07-09 00:00:00 2023-07-09 00:00:00 Telephone Damaris [facility] 1.114 350.1.13.10 4.2.7.2.686 [id number] [facility] 2023-06-17 09:16:42 2023-06-17 09:16:42 Outpatient [facility] [id number] John Beckman 2023-06-14 11:30:00 2023-06-14 11:40:45 Outpatient R DAMARIS MARCIA [facility] [id number] [facility] 2023-06-14 11:30:00 2023-06-14 11:40:45 Routine Visit [facility] 1..114 350.1.13.10 4.2.7.2.686 [id number] [facility] 2023-05-29 10:45:00 2023-05-29 12:00:00 Bookkeeper Receptionist Visit Ultrasound, Marine Arciniega [facility] SPECIAL TRACKWORK [facility] 1..114 350.1.13.10 4.2.7.2.686 [id number] [facility] 2023-05-29 10:45:00 2023-05-29 10:45:00 Outpatient P MARINE [facility] [id number] [facility] 2023-05-23 00:00:00 2023-05-23 00:00:00 Telephone [facility] 1..114 350.1.13.10 4.2.7.2.686 [id number] [facility] 2023-05-17 11:15:00 2023-05-17 11:27:00 Outpatient R DAMARIS [facility] [id number] [facility] 2023-05-17 11:15:00 2023-05-17 11:27:00 Routine Visit [facility] 1..114 350.1.13.10 4.2.7.2.686 [id number] [facility] 2023-05-07 00:00:00 2023-05-07 00:00:00 Telephone Marcia Ocampo [facility] 1.840.114 350.1.13.10 4.2.7.2.686 [id number] [facility] 2023-05-06 21:13:00 2023-05-06 22:09:00 Emergency X [facility] E[facility] [id number] [facility] 2023-05-06 21:13:00 2023-05-06 22:09:00 Emergency Atul Sena [facility] 1.840.114 350.1.13.10 4.2.7.2.686 [id number] [facility] 2023-05-06 07:30:00 2023-05-06 07:36:11 Outpatient R DAMARIS MARCIA [facility] [id number] [facility] 2023-05-06 07:30:00 2023-05-06 07:36:11 Bookkeeper Receptionist [facility] 1..840.114 350.1.13.10 4.2.7.2.686 [id number] [facility] 2023-04-30 07:30:00 2023-04-30 07:30:00 Outpatient R [facility] [id number] [facility] 2023-04-21 00:00:00 2023-04-21 00:00:00 Nurse Triage Marely Ly [facility] 1.840.114 350.1.13.10 4.2.7.2.686 [id number] [facility] 2023-04-19 11:00:00 2023-04-19 11:06:57 [facility].0.114 350.1.13.10 4.2.7.2.686 [id number] [facility] 2023-04-19 11:00:00 2023-04-19 11:06:57 [facility] [id number] [facility] [facility]:00:00 2023-04-01 00:00:00 [facility] 1.2.114 350.1.13.10 4.2.7.2.686 [id number] 134 [id number] [facility] 2023-03-29 14:00:00 2023-03-29 14:47:28 Nurse Visit Nurse, [facility] 1.84.114 350.1.13.10 4.2.7.2.686 [id number] 134 [id number] [facility] 2023-03-29 14:00:00 2023-03-29 14:47:28 Outpatient R [facility] [id number] [facility] 2023-03-29 00:00:00 2023-03-29 00:00:00 Telephone Leia Everett [facility] 1.114 350.1.13.10 4.2.7.2.686 [id number] 134 [id number] [facility] 2023-03-27 13:00:00 2023-03-27 13:00:00 Bookkeeper Receptionist Visit Lab, Juan Carlos - Juan A Ocampo [facility] 1.84.114 350.1.13.10 4.2.7.2.686 [id number] [facility] 2023-03-27 13:00:00 2023-03-27 11:28:09 Outpatient R [facility] [id number] [facility] 2023-03-27 11:00:00 2023-03-27 11:00:00 Outpatient R [facility] [id number] [facility] 2023-03-26 08:00:00 2023-03-26 10:57:52 Outpatient R MARCIA OCAMPO [facility] [id number] [facility] 2023-03-26 08:00:00 2023-03-26 10:57:52 Bookkeeper Receptionist Visit Lab, Ang - Db Marcia Ocampo Critical access hospital?[facility] MEDICAL OFFICE BUILDING 1.2840.114 350.1.13.10 4.2.7.2.686 [id number] 353 [id number] [facility] 2023-03-26 00:00:00 2023-03-26 00:00:00 Case Management Damaris [facility] 1.2840.114 350.1.13.10 4.2.7.2.686 [id number] 134 [id number] [facility] 2023-03-26 00:00:00 2023-03-26 00:00:00 Telephone Damaris [facility] 1.2.840.114 350.1.13.10 4.2.7.2.686 [id number] 134 [id number] [facility] 2023-03-25 00:00:00 2023-03-25 00:00:00 Telephone Marcia Ocampo [facility] BUILDING 1.2840.114 350.1.13.10 4.2.7.2.686 [id number] 134 [id number] [facility] 2023-03-25 00:00:00 2023-03-25 00:00:00 Telephone Damaris [facility] 1.2840.114 350.1.13.10 4.2.7.2.686 [id number] 134 [id number] [facility] 2023-03-23 00:00:00 2023-03-23 00:00:00 Case Management Marcia Ocampo [facility]ESS[facility] NAL BUILDING 1.20.114 350.1.13.10 4.2.7.2.686 [id number] 134 [id number] [facility] 2023-03-22 10:45:00 2023-03-22 11:00:00 Bookkeeper Receptionist Visit Lab, Juan Carlos - Juan A Marcia Ocampo Critical access hospital?[facility] 1..114 350.1.13.10 4.2.7.2.686 [id number] 353 [id number] [facility] 2023-03-22 09:00:00 2023-03-22 09:34:31 Outpatient R [facility] [id number] [facility] 2023-03-22 09:00:00 2023-03-22 09:34:31 Initial Visit Marcia Ocampo Bryce [facility] 1.0.114 350.1.13.10 4.2.7.2.686 [id number] 134 [id number] [facility] 2023-03-22 00:00:00 2023-03-22 00:00:00 Orders Only Doctor Unassigned, [place] [facility] 1.2840.114 350.1.13.10 4.2.7.2.686 [id number] [id number] [facility] 2023-03-06 21:58:00 2023-03-06 23:40:00 Emergency X RAMIREZ SANCHEZ [facility] ERT [id number] [facility] 2023-03-06 21:58:00 2023-03-06 23:40:00 Emergency Ramirez Sanchez [facility] 1.2840.114 350.1.13.10 4.2.7.2.686 [id number] [facility] 2023-03-06 13:00:00 2023-03-06 13:00:00 Outpatient R EDITA DYE [facility] [id number] [facility] 2022-12-20 14:30:00 2022-12-20 15:15:47 Outpatient R EDITA DYE [facility] [id number] [facility] 2022-12-20 14:30:00 2022-12-20 15:15:47 Office Visit Edita Dye [facility] SPECIAL [facility] MATERNAL & CHILD [facility] 1..840.114 350.1.13.10 4.2.7.2.686 [id number] [facility] 2022-12-20 00:00:00 2022-12-20 00:00:00 Orders Only Doctor Unassigned, [place] [facility] 1.840.114 350.1.13.10 4.2.7.2.686 [id number] [id number] [facility] 2022-12-14 09:15:00 2022-12-14 09:15:00 Outpatient R SURJIT RICE [facility] [id number] [facility] 2022-07-18 13:00:00 2022-07-18 13:45:54 Outpatient R SURJIT RICE [facility] [id number] [facility] 2022-07-18 13:00:00 2022-07-18 13:45:54 Office Visit Surjit Rice [facility] & CHILD [facility] 1.840.114 350.1.13.10 4.2.7.2.686 [id number] [facility] 2021-12-14 08:45:00 2021-12-14 10:01:04 Outpatient R GERMAN BACK [facility] [id number] [facility] 2021-12-14 08:45:00 2021-12-14 10:01:04 Office Visit German Back [facility] SPECIAL [facility] & CHILD [facility] 1.840.114 350.1.13.10 4.2.7.2.686 [id number] 107 [id number] [facility] 2021-12-14 08:45:00 2021-12-14 10:01:04 Outpatient GERMAN ALEXANDRE [facility] [id number] [facility] 2021-12-14 00:00:00 2021-12-14 00:00:00 Orders Only Doctor Unassigned, [place] [facility] 1.840.114 350.1.13.10 4.2.7.2.686 [id number] [id number] [facility] 2021-12-12 09:30:00 2021-12-12 09:30:00 Outpatient GERMAN ALEXANDRE [facility] [id number] [facility] 2021-12-12 09:30:00 2021-12-12 09:30:00 Outpatient GERMAN ALEXANDRE [facility] [id number] [facility] 2021-12-12 09:30:00 2021-12-12 09:30:00 Outpatient GERMAN ALEXANDRE [facility] [id number] [facility] 2021-08-08 09:30:00 2021-08-08 09:30:00 Outpatient SKYLER YARBROUGH [facility] [id number] [facility] 2021-08-07 14:30:00 2021-08-07 15:15:07 Outpatient SKYLER YARBROUGH [facility] [id number] [facility] 2021-08-07 14:21:07 2021-08-07 15:15:07 Office Visit Skyler Cuellar [facility] MATERNAL & CHILD [facility] 1.840.114 350.1.13.10 4.2.7.2.686 [id number] 107 [id number] [facility] 2021-08-07 00:00:00 2021-08-07 00:00:00 Orders Only Doctor Unassigned, [place] [facility] 1.2.840.114 350.1.13.10 4.2.7.2.686 [id number] [id number] [facility] 2021-07-20 09:30:00 2021-07-20 09:30:00 Outpatient LORENZO LAGOS [facility] [id number] [facility] 2021-07-14 00:00:00 2021-07-14 00:00:00 Telephone Surjit Rice [facility] & CHILD [facility] 1.2.840.114 350.1.13.10 4.2.7.2.686 [id number] 107 [id number] [facility] 2020-12-08 00:00:00 2020-12-08 00:00:00 Telephone German Back [facility] SPECIAL [facility] MATERNAL & CHILD [facility] 1.2.840.114 350.1.13.10 4.2.7.2.686 [id number] 107 [id number] [facility] 2020-12-08 00:00:00 2020-12-08 00:00:00 Telephone German Back [facility] & CHILD [facility] 1.2.840.114 350.1.13.10 4.2.7.2.686 [id number] 2020-12-07 09:16:24 2020-12-07 10:08:04 Office Visit German Back [facility] SPECIAL [facility]WORK [facility] & CHILD [facility] 1.2.840.114 350.1.13.10 4.2.7.2.686 [id number] 107 [id number] [facility] 2020-12-07 09:00:00 2020-12-07 09:00:00 Outpatient R GERMAN BACK [facility] [id number] [facility] 2020-12-07 00:00:00 2020-12-07 00:00:00 Orders Only Doctor Unassigned, [place] [facility] 1.2.840.114 350.1.13.10 4.2.7.2.686 [id number] [id number] [facility] 2020-05-02 00:00:00 2020-05-02 00:00:00 Telephone German Back [facility] SPECIAL [facility] & CHILD [facility] 1.2.840.114 350.1.13.10 4.2.7.2.686 [id number] 107 [id number] [facility] 2020-02-12 12:56:01 2020-02-12 13:27:54 Nurse Visit Visit, [facility] Mary[facility] Nurse German Back [facility] SPECIAL TR[facility]WORK [facility] CHILD [facility] 1.2840.114 350.1.13.10 4.2.7.2.686 [id number] 107 [id number] [facility] 2020-02-12 13:00:00 2020-02-12 13:00:00 Outpatient EGRMAN ALEXANDRE [facility] [id number] [facility] 2020-02-11 00:00:00 2020-02-11 00:00:00 Telephone German Back [facility] SPECIAL [facility] & CHILD [facility] 1.2.840.114 350.1.13.10 4.2.7.2.686 [id number] [facility] 2020-02-11 00:00:00 2020-02-11 00:00:00 Telephone Surjit Rice [facility] SPECIAL [facility] & CHILD [facility] 1.2.840.114 350.1.13.10 4.2.7.2.686 [id number] 107 [id number] [facility] 2020-02-09 14:00:00 2020-02-09 14:00:00 Outpatient R GERMAN BACK [facility] [id number] [facility] 2020-02-03 13:00:00 2020-02-03 13:00:00 Outpatient R [facility] [id number] [facility] 2019-12-31 00:39:27 2019-12-31 01:01:00 Emergency Monica Sanchez [facility] 1.2.840.114 350.1.13.10 4.2.7.2.686 [id number] [facility] 2019-10-19 00:00:00 2019-10-19 00:00:00 Telephone German Back [facility] SPECIAL TR[facility]WORK [facility] MATERNAL & CHILD [facility] 1.2.840.114 350.1.13.10 4.2.7.2.686 [id number] [facility] 2019-10-16 12:48:54 2019-10-16 14:02:54 Office Visit German Back [facility] SPECIAL TRACKWORK [facility] MATERNAL & CHILD [facility] 1.2.840.114 350.1.13.10 4.2.7.2.686 [id number] [facility] 2018-02-25 08:45:00 2018-02-25 08:45:00 Outpatient [facility] Medicine [facility] Medicine [id number] [facility] Results Test Description Test Time Test Comments Results Result Co mments Source [facility] [id number] 21:06:00* Test Item Value Reference Range Interpretation Comme nts POCT PREG (test code = 1605) Negative On board controls acceptable with C Line (test code = 3574) Yes POCT PREG LOT # (test code = 3575) POCT PREG TEST DATE ( test code = 3576) [facility]D) IMMUNE [id number] 15:17:58* Test Item Value Reference Range Interpretation Comme nts RHIG CANDIDATE? (test code = 5188) No- see comment Patient is not a candidate for RhIg- Patient is Rh Positive.Performed at [facility] Laboratory Services - [facility] Blood [address] [place] [id number] Free: [phone] No. [id number] [facility]CBC with [id number] 11:15:54* Test Item Value Reference Range Interpretation Comme nts WBC (test code = 6690-2) 14.04 See_Comment H [Automated message] The system which generated this result transmitted reference range: 4.30 - 11.10 10*3/?L. The reference range was not used to interpret this result as normal/abnormal. RBC (test code = 789-8) 3.87 See_Comment L [Automated message] The system which generated this result transmitted reference range: 3.93 - 5.25 10*6/?L. The reference range was not used to interpret this result as normal/abnormal. HGB (test code = 718-7) 12.2 g/dL 11.6-15.0 HCT (test code = 4544-3) 35.2 % 35.7-45.2 L MCV (test code = 787-2) 91.0 fL 80.6-95.5 MCH (test code = 785-6) 31.5 pg 25.9-32.8 MCHC (test code = 786-4) 34.7 g/dL 31.6-35.1 RDW-SD (test code = 17978-1) 42.5 fL 39.0-49.9 RDW-CV (test code = 788-0) 13.1 % 12.0-15.5 PLT (test code = 777-3) 174 See_Comment [Automated message] The system which generated this result transmitted reference range: 166 - 358 10*3/?L. The reference range was not used to interpret this result as normal/abnormal. MPV (test code = 29221-2) 11.3 fL 9.5-12.9 NRBC/100 WBC (test code = 1330010528) 0.0 See_Comment [Automated message] The system which generated this result transmitted reference range: 0.0 - 10.0 /100 WBCs. The reference range was not used to interpret this result as normal/abnormal. NRBC x10^3 (test code = 6452345726) See_Comment [Automated message] The system which generated this result transmitted reference range: 10*3/?L. The reference range was not used to interpret this result as normal/abnormal. GRAN MAT (NEUT) % (test code = 770-8) 86.4 % IMM GRAN % (test code = 4675321494) 0.60 % LYMPH % (test code = 736-9) 6.9 % MONO % (test code = 5905-5) 5.1 % EOS % (test code = 713-8) 0.8 % BASO % (test code = 706-2) 0.2 % GRAN MAT x10^3(ANC) (test code = 9538496077) 12.14 10*3/uL 1.88-7.09 H IMM GRAN x10^3 (test code = 7890458940) 0.08 10*3/uL 0.00-0.06 H LYMPH x10^3 (test code = 731-0) 0.97 10*3/uL 1.32-3.29 L MONO x10^3 (test code = 742-7) 0.71 10*3/uL 0.33-0.92 EOS x10^3 (test code = 711-2) 0.11 10*3/uL 0.03-0.39 BASO x10^3 (test code = 704-7) 0.03 10*3/uL 0.01-0.07 Lab Interpretation (test code = 70277-1) Abnormal [facility] GLUCOSE (AUTOMATED)2023-09-26 03:26:13* Test Item Value Reference Range Interpretation Comme nts POCT GLU (test code = 4131365085) 86 mg/dL 70-110 Lab Interpretation (test cod e = 83717-9) Normal [facility] GLUCOSE (AUTOMATED)2023-09-26 00:49:14* Test Item Value Reference Range Interpretation Comme nts POCT GLU (test code = 3803315497) 79 mg/dL 70-110 Lab Interpretation (test cod e = 81794-1) Normal [facility] GLUCOSE (AUTOMATED)2023-09-25 19:43:12* Test Item Value Reference Range Interpretation Comme nts POCT GLU (test code = 3209976396) 98 mg/dL 70-110 Lab Interpretation (test cod e = 42739-5) Normal [facility] [id number] 16:25:00 Sachin William MD ? ? 09/25/2023 11:00 AM Central Neuraxial Block Date/Time: 09/25/2023 10:25 AM Performed by: Sachin William MDAuthorized by: Sachin William MD ?Patient Location: OBEnd Time: 09/25/2023 10:59 AMReason for Block: OB request, Patient request, Laboranalgesia, Surgical anesthesia and Post-op pain managementStaff: ?Anesthesiologist: Sachin William MD ?Performed by: anesthesiologistPreanesthetic Checklist: patient identified, IV checked, risks and benefits explained, monitors and equipment checked, timeout performed, pre-op evaluation, site marked and anesthesia consentProcedure: ?Type of Neuraxial: Epidural ?Epidural Description:DPE ? Sterility Prep cap, drape, gloves, hand hygiene and mask ? ?Sedation Level no sedation ?Prep:Betadine and patient draped ? ?Monitoring: heart rate, continuous pulse ox, heart rate / tocoand NIBP ?Location: lumbar (1-5) ?Lumbar: L4-L5 ?Approach: midline ? ?Technique: catheter and YANETH sa line ?Guidance with: landmark technique}Epidural/Spinal [place] and/or Catheter: ?Epidural/Spinal Kit: BBraun ?Needle Type: Tuohy ?Needle Gauge: 17 G ?Needle Length: 3.5 in (8.89 cm) ?Needle Insertion Depth: 5 ?Catheter Type: multiport ? ?Catheter Size: 19 G ? ?Catheter at Skin Depth: 9 ?Number of Attempts: 1 ?Test Dose: lidocaine 1.5% with epinephrine 1-to-200,000 and negative ? ?Dose: 3 cc ? ?Catheter Securement Method: surgical tape and TegadermAssessment: ?Block Outcome: patient tolerated procedure well ? ?Procedure Assessment: patient tolerated procedure well with no complicationsNotes: ? DPE. Some blood aspirated at 10 cm catheter depth. . Flushed syringe with 3 ml of saline and pulled catheter to 9 cm. Aspirated with no more heme aspirated. Negative test dose [facility] [id number] 16:25:00 Sachin William MD ? ? 09/25/2023 11:00 AM Central Neuraxial Block Date/Time: 09/25/2023 10:25 AM Performed by: Sachin William MDAuthorized by: Sachin William MD ?Patient Location: OBEnd Time: 09/25/2023 10:59 AMReason for Block: OB request, Patient request, Laboranalgesia, Surgical anesthesia and Post-op pain managementStaff: ?Anesthesiologist: Sachin William MD ?Performed by: anesthesiologistPreanesthetic Checklist: patient identified, IV checked, risks and benefits explained, monitors and equipment checked, timeout performed, pre-op evaluation, site marked and anesthesia consentProcedure: ?Type of Neuraxial: Epidural ?Epidural Description:DPE ? Sterility Prep cap, drape, gloves, hand hygiene and mask ? ?Sedation Level no sedation ?Prep:Betadine and patient draped ? ?Monitoring: heart rate, continuous pulse ox, heart rate / tocoand NIBP ?Location: lumbar (1-5) ?Lumbar: L4-L5 ?Approach: midline ? ?Technique: catheter and YANETH sa line ?Guidance with: landmark technique}Epidural/Spinal [place] and/or Catheter: ?Epidural/Spinal Kit: Melun ?Needle Type: Tuohy ?Needle Gauge: 17 G ?Needle Length: 3.5 in (8.89 cm) ?Needle Insertion Depth: 5 ?Catheter Type: multiport ? ?Catheter Size: 19 G ? ?Catheter at Skin Depth: 9 ?Number of Attempts: 1 ?Test Dose: lidocaine 1.5% with epinephrine 1-to-200,000 and negative ? ?Dose: 3 cc ? ?Catheter Securement Method: surgical tape and TegadermAssessment: ?Block Outcome: patient tolerated procedure well ? ?Procedure Assessment: patient tolerated procedure well with no complicationsNotes: ? DPE. Some blood aspirated at 10 cm catheter depth. . Flushed syringe with 3 ml of saline and pulled catheter to 9 cm. Aspirated with no more heme aspirated. Negative test dose [facility]23-[facility] 15:04:40* Test Item Value Reference Range Interpretation Comme nts POCT GLU (test code = 5280686769) 116 mg/dL 70-110 H Lab Interpretation (test cod e = 12928-8) Abnormal [facility] Hospital[facility] and Screen - ONCE [id number] 15:00:00* Test Item Value Reference Range Interpretation Comme nts ABO & RH (test code = 20) O POSITIVE IAT (test code = 1185) Negative [facility] Hospital[facility]bc with [id number] 18:44:22* Test Item Value Reference Range Interpretation Comme nts WBC (test code = 6690-2) 8.10 See_Comment [Automated messa ge] The system which generated this result transmitted reference range: 4.30 - 11.10 10*3/?L. The reference range was not used to interpret this result as normal/abnormal. RBC (test code = 789-8) 3.99 See_Comment [Automated messa ge] The system which generated this result transmitted reference range: 3.93 - 5.25 10*6/?L. The reference range was not used to interpret this result as normal/abnormal. HGB (test code = 718-7) 12.6 g/dL 11.6-15.0 HCT (test code = 4544-3) 36.4 % 35.7-45.2 MCV (test code = 787-2) 91.2 fL 80.6-95.5 MCH (test code = 785-6) 31.6 pg 25.9-32.8 MCHC (test code = 786-4) 34.6 g/dL 31.6-35.1 RDW-SD (test code = 63396-2) 42.4 fL 39.0-49.9 RDW-CV (test code = 788-0) 12.9 % 12.0-15.5 PLT (test code = 777-3) 197 See_Comment [Automated messa ge] The system which generated this result transmitted reference range: 166 - 358 10*3/?L. The reference range was not used to interpret this result as normal/abnormal. MPV (test code = 14841-7) 11.4 fL 9.5-12.9 NRBC/100 WBC (test code = 9103956316) 0.0 See_Comment [Automated me ssage] The system which generated this result transmitted reference range: 0.0 - 10.0 /100 WBCs. The reference range was not used to interpret this result as normal/abnormal. NRBC x10^3 (test code = 0621221572) See_Comment [Automated messa ge] The system which generated this result transmitted reference range: 10*3/?L. The reference range was not used to interpret this result as normal/abnormal. GRAN MAT (NEUT) % (test code = 770-8) 78.2 % IMM GRAN % (test code = 8267405847) 0.50 % LYMPH % (test code = 736-9) 15.3 % MONO % (test code = 5905-5) 4.4 % EOS % (test code = 713-8) 1.2 % BASO % (test code = 706-2) 0.4 % GRAN MAT x10^3(ANC) (test code = 0058679794) 6.33 10*3/uL 1.88-7.09 IMM GRAN x10^3 (test code = 5468569071) 0.04 10*3/uL 0.00-0.06 LYMPH x10^3 (test code = 731-0) 1.24 10*3/uL 1.32-3.29 L MONO x10^3 (test code = 742-7) 0.36 10*3/uL 0.33-0.92 EOS x10^3 (test code = 711-2) 0.10 10*3/uL 0.03-0.39 BASO x10^3 (test code = 704-7) 0.03 10*3/uL 0.01-0.07 Lab Interpretation (test code = 14747-9) Abnormal [facility] with [id number] 18:44:22* Test Item Value Reference Range Interpretation Comme nts WBC (test code = 6690-2) 8.10 See_Comment [Automated messa ge] The system which generated this result transmitted reference range: 4.30 - 11.10 10*3/?L. The reference range was not used to interpret this result as normal/abnormal. RBC (test code = 789-8) 3.99 See_Comment [Automated messa ge] The system which generated this result transmitted reference range: 3.93 - 5.25 10*6/?L. The reference range was not used to interpret this result as normal/abnormal. HGB (test code = 718-7) 12.6 g/dL 11.6-15.0 HCT (test code = 4544-3) 36.4 % 35.7-45.2 MCV (test code = 787-2) 91.2 fL 80.6-95.5 MCH (test code = 785-6) 31.6 pg 25.9-32.8 MCHC (test code = 786-4) 34.6 g/dL 31.6-35.1 RDW-SD (test code = 87384-6) 42.4 fL 39.0-49.9 RDW-CV (test code = 788-0) 12.9 % 12.0-15.5 PLT (test code = 777-3) 197 See_Comment [Automated [employer] ge] The system which generated this result transmitted reference range: 166 - 358 10*3/?L. The reference range was not used to interpret this result as normal/abnormal. MPV (test code = 71666-7) 11.4 fL 9.5-12.9 NRBC/100 WBC (test code = 2225669894) 0.0 See_Comment [Automated [employer] ssage] The system which generated this result transmitted reference range: 0.0 - 10.0 /100 WBCs. The reference range was not used to interpret this result as normal/abnormal. NRBC x10^3 (test code = 1258446057) See_Comment [Automated [employer]] The system which generated this result transmitted reference range: 10*3/?L. The reference range was not used to interpret this result as normal/abnormal. GRAN MAT (NEUT) % (test code = 770-8) 78.2 % IMM GRAN % (test code = 9129129279) 0.50 % LYMPH % (test code = 736-9) 15.3 % MONO % (test code = 5905-5) 4.4 % EOS % (test code = 713-8) 1.2 % BASO % (test code = 706-2) 0.4 % GRAN MAT x10^3(ANC) (test code = 4330549174) 6.33 10*3/uL 1.88-7.09 IMM GRAN x10^3 (test code = [id number]) 0.04 10*3/uL 0.00-0.06 LYMPH x10^3 (test code = 731-0) 1.24 10*3/uL 1.32-3.29 L MONO x10^3 (test code = 742-7) 0.36 10*3/uL 0.33-0.92 EOS x10^3 (test code = 711-2) 0.10 10*3/uL 0.03-0.39 BASO x10^3 (test code = 704-7) 0.03 10*3/uL 0.01-0.07 Lab Interpretation (test code = 79708-0) Abnormal [facility] with [id number] 20:29:26* Test Item Value Reference Range Interpretation Comme nts WBC (test code = 6690-2) 8.96 See_Comment [Automated messa ge] The system which generated this result transmitted reference range: 4.30 - 11.10 10*3/?L. The reference range was not used to interpret this result as normal/abnormal. RBC (test code = 789-8) 4.20 See_Comment [Automated messa ge] The system which generated this result transmitted reference range: 3.93 - 5.25 10*6/?L. The reference range was not used to interpret this result as normal/abnormal. HGB (test code = 718-7) 13.0 g/dL 11.6-15.0 HCT (test code = 4544-3) 38.4 % 35.7-45.2 MCV (test code = 787-2) 91.4 fL 80.6-95.5 MCH (test code = 785-6) 31.0 pg 25.9-32.8 MCHC (test code = 786-4) 33.9 g/dL 31.6-35.1 RDW-SD (test code = 53007-8) 41.6 fL 39.0-49.9 RDW-CV (test code = 788-0) 12.6 % 12.0-15.5 PLT (test code = 777-3) 181 See_Comment [Automated messa ge] The system which generated this result transmitted reference range: 166 - 358 10*3/?L. The reference range was not used to interpret this result as normal/abnormal. MPV (test code = 27265-5) 11.8 fL 9.5-12.9 NRBC/100 WBC (test code = 2811066582) 0.0 See_Comment [Automated [employer] ssage] The system which generated this result transmitted reference range: 0.0 - 10.0 /100 WBCs. The reference range was not used to interpret this result as normal/abnormal. NRBC x10^3 (test code = 2937018548) See_Comment [Automated messa ge] The system which generated this result transmitted reference range: 10*3/?L. The reference range was not used to interpret this result as normal/abnormal. GRAN MAT (NEUT) % (test code = 770-8) 79.2 % IMM GRAN % (test code = 7694368847) 0.90 % LYMPH % (test code = 736-9) 14.8 % MONO % (test code = 5905-5) 4.2 % EOS % (test code = 713-8) 0.6 % BASO % (test code = 706-2) 0.3 % GRAN MAT x10^3(ANC) (test code = 2174171678) 7.09 10*3/uL 1.88-7.09 IMM GRAN x10^3 (test code = 9113097028) 0.08 10*3/uL 0.00-0.06 H LYMPH x10^3 (test code = 731-0) 1.33 10*3/uL 1.32-3.29 MONO x10^3 (test code = 742-7) 0.38 10*3/uL 0.33-0.92 EOS x10^3 (test code = 711-2) 0.05 10*3/uL 0.03-0.39 BASO x10^3 (test code = 704-7) 0.03 10*3/uL 0.01-0.07 Lab Interpretation (test code = 68479-2) Abnormal [facility] Urinalysis w/o Specific [id number] 16:37:00* Test Item Value Reference Range Interpretation Comme nts POCT PH U (test code = 3254) N/A 5-8 POCT U LEUK EST (test code = 3263) N/A Negative - Negative POCT U NIT (test code = 3262) N/A Negative - Negati ve POCT U PROT (test code = 3259) Negative Negative - Negat giovanna POCT U GLU (test code = 3256) Negative Negative - Negati ve POCT U KETONE (test code = 3258) N/A Negative - Neg ative POCT U BLD (test code = 3257) N/A Negative - Negati ve [facility] Urinalysis w/o Specific [id number] 19:09:00* Test Item Value Reference Range Interpretation Comme nts POCT PH U (test code = 3254) N/A 5-8 POCT U LEUK EST (test code = 3263) N/A Negative - Negative POCT U NIT (test code = 3262) N/A Negative - Negati ve POCT U PROT (test code = 3259) Negative Negative - Negat giovanna POCT U GLU (test code = 3256) Negative Negative - Negati ve POCT U KETONE (test code = 3258) N/A Negative - Neg ative POCT U BLD (test code = 3257) N/A Negative - Negati ve [facility] URINALYSIS W/O SPECIFIC [id number] 18:37:00* Test Item Value Reference Range Interpretation Comme nts POCT PH U (test code = 3254) N/A 5-8 POCT U LEUK EST (test code = 3263) N/A Negative - Negative POCT U NIT (test code = 3262) N/A Negative - Negati ve POCT U PROT (test code = 3259) Trace Negative - Negat giovanna POCT U GLU (test code = 3256) Negative Negative - Negati ve POCT U KETONE (test code = 3258) N/A Negative - Neg ative POCT U BLD (test code = 3257) N/A Negative - Negati ve [facility] URINALYSIS W/O SPECIFIC [id number] 17:15:00* Test Item Value Reference Range Interpretation Comme nts POCT PH U (test code = 3254) N/A 5-8 POCT U LEUK EST (test code = 3263) N/A Negative - Negative POCT U NIT (test code = 3262) N/A Negative - Negati ve POCT U PROT (test code = 3259) Negative Negative - Negat giovanna POCT U GLU (test code = 3256) Negative Negative - Negati ve POCT U KETONE (test code = 3258) N/A Negative - Neg ative POCT U BLD (test code = 3257) N/A Negative - Negati ve [facility] URINALYSIS W/O SPECIFIC [id number] 16:55:00* Test Item Value Reference Range Interpretation Comme nts POCT PH U (test code = 3254) 6 mg/dl 5-8 POCT U LEUK EST (test code = 3263) Negative Negative - Negative POCT U NIT (test code = 3262) Negative Negative - Negati ve POCT U PROT (test code = 3259) Negative Negative - Negat giovanna POCT U GLU (test code = 3256) Negative Negative - Negati ve POCT U KETONE (test code = 3258) Negative Negative - Neg ative POCT U BLD (test code = 3257) Negative Negative - Negati ve [facility] URINALYSIS W/O SPECIFIC [id number] 16:05:00* Test Item Value Reference Range Interpretation Comme nts POCT PH U (test code = 3254) N/A 5-8 POCT U LEUK EST (test code = 3263) N/A Negative - Negative POCT U NIT (test code = 3262) N/A Negative - Negati ve POCT U PROT (test code = 3259) Negative Negative - Negat giovanna POCT U GLU (test code = 3256) Negative Negative - Negati ve POCT U KETONE (test code = 3258) N/A Negative - Neg ative POCT U BLD (test code = 3257) N/A Negative - Negati ve [facility] URINALYSIS W/O SPECIFIC [id number] 15:36:00* Test Item Value Reference Range Interpretation Comme nts POCT PH U (test code = 3254) n/a 5-8 POCT U LEUK EST (test code = 3263) n/a Negative - Negative POCT U NIT (test code = 3262) n/a Negative - Negati ve POCT U PROT (test code = 3259) Negative Negative - Negat giovanna POCT U GLU (test code = 3256) Normal Negative - Negati ve POCT U KETONE (test code = 3258) n/a Negative - Neg ative POCT U BLD (test code = 3257) n/a Negative - Negati ve [facility] 20:21:55* Test Item Value Reference Range Interpretation Comme nts HGB A1C (test code = 4548-4) 4.8 % 4.0-5.7 ESTEPHANIA (test code = ESTEPHANIA) Reference RangesNormal: <5.7%Prediabetes: 5.7 - 6.4%Diabetes: > 6.5% Lab Interpretation (test code = 16797-1) Normal [facility] URINALYSIS W/O SPECIFIC [id number] 14:01:00* Test Item Value Reference Range Interpretation Comme nts POCT PH U (test code = 3254) n/a 5-8 POCT U LEUK EST (test code = 3263) n/a Negative - Negative POCT U NIT (test code = 3262) n/a Negative - Negati ve POCT U PROT (test code = 3259) Negative Negative - Negat giovanna POCT U GLU (test code = 3256) Normal Negative - Negati ve POCT U KETONE (test code = 3258) n/a Negative - Neg ative POCT U BLD (test code = 3257) n/a Negative - Negati ve [facility] [id number] 03:07:00* Test Item Value Reference Range Interpretation Comme nts POCT PREG (test code = 1605) Positive On board controls acceptable with C Line (test code = 3574) Yes POCT PREG LOT # (test code = 3578) [id number] POCT PREG TEST DATE ( test code = 3576) 06/14/2024 Lab Interpretation (test cod e = 09652-0) Normal [facility] History and Physical Notes Date/Time Note Provider Source 2023-09-25 09:08:38 TRIAGE HISTORY & PHYSICAL IDENTIFYING DATA Artemio Melendez is 27 year old, /White, 39w0d, female with COREY 10/02/2023, by Last Menstrual Period. : 1995 Primary Care Physician: PATIENT DOES NOT HAVE A PCP CHIEF COMPLAINT Induction at 39 weeks HISTORY OF PRESENT ILLNESS Artemio Melendez is a 27 year old female @ 39w0d +FM. No VB, LOF, or CTX. No pre-eclampsia sx or other complaints. PAST OBSTETRIC HISTORY OB History Para Term AB Living 5 1 1 0 3 1 SAB IAB Ectopic Multiple Live Births 3 0 0 0 1 # Outcome Date GA Lbr [place]/2nd Weight Sex Delivery Anes PTL Lv 5 Current 4 Term 06/19/18 39w0d 2840 g M VAGINAL None ENA 3 SAB 2014 2 SAB 11/11/13 1 SAB PAST MEDICAL HISTORY Problem list: Patient Active Problem List Diagnosis Date Noted 39 weeks gestation of 09/25/2023 Positive test for herpes simplex virus (HSV) antibody 05/17/2023 GDM (gestational diabetes mellitus), class A1 04/19/2023 High-risk in third trimester 04/19/2023 Family history of congenital heart disease 04/19/2023 Nausea and vomiting during prior to 22 weeks gestation 03/22/2023 History of anxiety and depression 12/20/2022 Tobacco use disorder 08/04/2018 Operations: Past Surgical History: Procedure Laterality Date NE FISSURECTOMY INCL SPHINCTEROTOMY WHEN PERFORMED Past Medical History: Diagnosis Date Anemia of mother in , antepartum 01/24/2018 resolved Anxiety Managed by [facility] clinic, managing without medication Chlamydia 2010, 2013 treated Depression managed by [facility] clinic, ongoing, managing without medication Family history of factor V Leiden mutation 12/03/2017 pt tested negative for Factor V Female infertility denies any issues. 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 CURRENT HEALTH STATUS Medications: Current Facility-Administered Medications Medication Dose Route Frequency Last Rate Last Admin acyclovir (ZOVIRAX) tablet 400 mg 400 mg Oral TID 400 mg at 09/25/23 0811 carboprost (HEMABATE) injection 250 mcg 250 mcg Intramuscular Q2HPRN D5W-LR IV infusion 1,000 mL 1,000 mL IV Infusion TITRATE 125 mL/hr at 09/25/23 0819 1,000 mL at 09/25/23 0819 dextrose 50 % in water (D50W) injection 25 mL 25 mL Slow IV Push PRN FENTanyl PF (SUBLIMAZE (PF)) injection 100 mcg 100 mcg Slow IV Push Q1HPRN 100 mcg at 09/25/23 0912 glucagon (GLUCAGEN DIAGNOSTIC KIT) injection 1 mg 1 mg Intramuscular PRN lactated ringers IV infusion 500 mL 500 mL IV Infusion ONCE lactated ringers IV infusion 500 mL 500 mL IV Infusion PRN - SEE INSTRUCTIONS lactated ringers IV infusion 500 mL 500 mL IV Infusion PRN - SEE INSTRUCTIONS lidocaine 1% (PF) (XYLOCAINE) injection 0.3 mL 0.3 mL Infiltration PRN - SEE INSTRUCTIONS methylergonovine (METHERGINE) injection 0.2 mg 0.2 mg Intramuscular Q4HPRN miSOPROStoL (CYTOTEC) tablet 200 mcg 200 mcg Rectal PRN ondansetron (ZOFRAN (PF)) injection 4 mg 4 mg Slow IV Push Q8HPRN oxytocin (PITOCIN) 30 units in NS 500 mL IV infusion 600 mL/hr IV Infusion PRN oxytocin (PITOCIN) 30 units in NS 500 mL IV infusion 2-40 tal-units/min IV Infusion TITRATE 4 mL/hr at 09/25/23 0934 4 tal-units/min at 09/25/23 0934 Sliding Scale Insulin Subcutaneous SEE-INSTRUCTIONS sodium citrate-citric acid (BICITRA) 500-334 mg/5 mL solution 30 mL 30 mL Oral PRE-PROCEDURE ONCE sodium citrate-citric acid (BICITRA) 500-334 mg/5 mL solution 30 mL 30 mL Oral PRE-PROCEDURE ONCE terbutaline (BRETHINE) injection 0.25 mg 0.25 mg Subcutaneous PRN tranexamic acid (CYKLOKAPRON) 1,000 mg in NaCl 0.9% (NS) 250 mL piggyback 1,000 mg IV Piggyback PRN Allergies and drug reactions: Patient has no known allergies. HOME MEDICATIONS Medications Prior to Admission Medication Sig Dispense Refill Last Dose acyclovir 400 mg tablet Take 1 tablet by mouth in the morning and 1 tablet at noon and 1 tablet in the evening. 60 tablet 2 Taking blood sugar diagnostic (BLOOD GLUCOSE TEST) strip Check gluocose 4 times a day 100 Strip 2 misc Alcohol Swabs (ALCOHOL PADS) PadM Apply to area(s) 4 (four) times daily. 100 Each 3 misc Blood-Glucose Meter Kit Check glucose 4 times a day. 1 Kit 0 misc Lancets Misc Check glucose 4 times a day 100 Each 3 Misc doxylamine (UNISOM, DOXYLAMINE,) 25 mg tablet Take 1 tablet by mouth at bedtime as needed for Nausea and Vomiting (N/V). 30 tablet 0 PRN metoclopramide HCl 10 mg tablet Take 1 tablet by mouth every 6 (six) hours as needed for Nausea and Vomiting (N/V). 30 tablet 0 PRN PNV no.95/ferrous fum/folic ac ( ORAL) Take by mouth. Taking pyridoxine, VITAMIN B-6, (VITAMIN B-6) 25 mg tablet Take 1 tablet by mouth every 6 (six) hours as needed for Nausea and Vomiting (N/V). 120 tablet 0 PRN SOCIAL HISTORY Tobacco History: Social History Tobacco Use Smoking Status Every Day Packs/day: 1.00 Years: 10.00 Additional pack years: 0.00 Total pack years: 10.00 Types: Cigarettes Start date: 10/04/2007 Passive exposure: Never Smokeless Tobacco Never Drug History: Social History Substance and Sexual Activity Drug Use Yes Types: Marijuana Comment: daily Alcohol History: Social History Substance and Sexual Activity Alcohol Use Not Currently Comment: qquit when fund out was FAMILY HISTORY Family History Problem Relation Age of Onset No Significant Medical Problems Mother Kidney disease Father Other - see comments Father liver disease Arthritis Father Asthma Father Breast Cancer Maternal Grandmother 80 Heart Maternal Grandmother No Significant Medical Problems Paternal Uncle Blood clots Diabetes Maternal Grandfather defects NoFHx Colon Cancer NoFHx Ovarian Cancer NoFHx Uterine Cancer NoFHx Cancer NoFHx Depression NoFHx Genetic NoFHx High cholesterol NoFHx Hypertension NoFHx Mental retardation NoFHx Neurological NoFHx Osteoporosis NoFHx Psychiatry NoFHx REVIEW OF SYSTEMS General: negative Constitutional: negative Eyes: negative ENT/Mouth: negative Cardiovascular: negative Respiratory: negative Gastrointestinal:negative Genitourinary: negative Musculoskeletal: negative Skin/breast: negative Neurological: negative Psychiatric: negative Endocrine: negative Hemat/Lymph: negative Allergic/Immuno:none VITAL SIGNS BP: (116)/(65) Temp: -- Temp source: -- Pulse: [97] Resp: [16] SpO2: [97 %] Height: [170.2 cm (5' 7")] Weight: [80.7 kg (178 lb)] BMI (calculated): [27.88] PHYSICAL EXAMINATIONS Gen: alert and oriented, well appearing, no distress CV: RRR, normal S1/S2, no m/r/g Resp: normal work of breathing, lungs CTAB Abd: gravid, soft, NTTP Ext: no calf tenderness or edema : SVE fingertip/thick/high REVIEW OF LABORATORY, PATHOLOGY, AND RADIOLOGY DATA Lab results: Type & Screen HIV Hep B Syphilis Chlamydia ABO & RH Date Value Ref Range Status 08/08/2023 O Positive Final HIV Ag-Ab Multiplex Date Value Ref Range Status 05/08/2018 Non-reactive Non-reactive Final No components found for: "HBSHBSAG" Syphilis IgG/IgM Date Value Ref Range Status 12/07/2020 Non-reactive Non-reactive Final C. trachomatis Nucleic Acid Date Value Ref Range Status 09/13/2023 Negative Negative Final IAT Date Value Ref Range Status 08/08/2023 Negative Final Varicella Rubella Glucose Group B Strep CBC VZV IgG antibody Date Value Ref Range Status 03/22/2023 Positive Negative Final Rubella screen IgG Date Value Ref Range Status 03/22/2023 Positive Negative Final GLUC 1 HR Date Value Ref Range Status 03/26/2023 214 (H) 120 - 170 mg/dL Final No results found for: "CGBS" HGB Date Value Ref Range Status 09/24/2023 12.6 11.6 - 15.0 g/dL Final HCT Date Value Ref Range Status 09/24/2023 36.4 35.7 - 45.2 % Final PLT Date Value Ref Range Status 09/24/2023 197 166 - 358 10*3/?L Final Active Hospital Problems Diagnosis Date Noted 39 weeks gestation of 09/25/2023 Positive test for herpes simplex virus (HSV) antibody 05/17/2023 GDM (gestational diabetes mellitus), class A1 04/19/2023 High-risk in third trimester 04/19/2023 History of anxiety and depression 12/20/2022 Resolved Hospital Problems No resolved problems to display. Present on Admission: 39 weeks gestation of GDM (gestational diabetes mellitus), class A1 High-risk in third trimester History of anxiety and depression Positive test for herpes simplex virus (HSV) antibody Placenta Accreta Screening Screening outcome: A positive screening outcome indicates a history of prior delivery or prior uterine surgery, AND the presence of either a placenta low lying/previa or ultrasound suspicion of PASD in the current . Negative screening. ASSESSMENT AND PLAN Artemio Melendez is a 27 year old female @ 39w0d here for an elective induction. Induction - FB in placed. pitocin per protocol - Cephalic presentation confirmed - GBS negative -EFW 5 pounds 14 ounces on 09/12/2023 HSV 2 IgG positive -Denies prodromal symptoms or vision -Normal exam -On suppression A1 DM -FSBG 116. FSBG and SSI per protocol PVT of Dr. Ocampo, please see OB Summary for more details Marcia Ocampo MD 09/25/2023 9:59 AM [facility] Procedure Notes Date/Time Note Provider Source 2023-09-25 10:59:01 Associated Order(s): Central Neuraxial Block Central Neuraxial Block Date/Time: 09/25/2023 10:25 AM Performed by: Sachin William MD Authorized by: Sachin William MD Patient Location: OB End Time: 09/25/2023 10:59 AM Reason for Block: OB request, Patient request, Labor analgesia, Surgical anesthesia and Post-op pain management Staff: Anesthesiologist: Sachin William MD Performed by: anesthesiologist Preanesthetic Checklist: patient identified, IV checked, risks and benefits explained, monitors and equipment checked, timeout performed, pre-op evaluation, site marked and anesthesia consent Procedure: Type of Neuraxial: Epidural Epidural Description: DPE Sterility Prep cap, drape, gloves, hand hygiene and mask Sedation Level no sedation Prep: Betadine and patient draped Monitoring: heart rate, continuous pulse ox, heart rate / toco and NIBP Location: lumbar (1-5) Lumbar: L4-L5 Approach: midline Technique: catheter and YANETH saline Guidance with: landmark technique} Epidural/Spinal [place] and/or Catheter: Epidural/Spinal Kit: BBraun Needle Type: Tuohy Needle Gauge: 17 G Needle Length: 3.5 in (8.89 cm) Needle Insertion Depth: 5 Catheter Type: multiport Catheter Size: 19 G Catheter at Skin Depth: 9 Number of Attempts: 1 Test Dose: lidocaine 1.5% with epinephrine 1-to-200,000 and negative Dose: 3 cc Catheter Securement Method: surgical tape and Tegaderm Assessment: Block Outcome: patient tolerated procedure well Procedure Assessment: patient tolerated procedure well with no complications Notes: DPE. Some blood aspirated at 10 cm catheter depth. . Flushed syringe with 3 ml of saline and pulled catheter to 9 cm. Aspirated with no more heme aspirated. Negative test dose [facility] 2023-09-25 10:01:52 Procedure(s): INSERT CERVICAL DILATOR Pre-Procedure Diagnose(s): 39 weeks gestation of ; GDM, class A1 Post-Procedure Diagnose(s): 39 weeks gestation of ; GDM, class A1 Duenas bulb inserted in a sterile manner and inflated with 60 cc of normal saline without complications. Patient tolerated the procedure well. Marcia Ocampo MD #[id number] 09/25/2023 10:02 AM [facility] 3D FUTURE VISION II [facility]
[2024-08-15 17:16] LABS: Absolute Monocytes 0.6 K/uL (0.1-1.3); Absolute Neutrophil 14.2 K/uL (1.8-8.0); Basophils % 0.3 % (0-1.3); Hematocrit 42.8 % (36.0-45.0); Hemoglobin 14.5 g/dL (12.0-15.0); MCH 30.3 pg (27.0-35.0); MCHC 33.9 g/dL (32.0-36.0); MCV 89.5 fL (80-100); Monocytes % 3.7 % (3.3-12.3); Platelets 245 thou/uL (152-406); RBC Red Blood Cell Count 4.78 M/uL (3.86-4.86); Red Cell Distribution Width 12.9 % (12.1-15.2)
[2024-08-15] MEDS ORDERED: NA CHLORIDE 0.9% 1,000 ML ONE (17:16)
[2024-08-15] MEDS ORDERED: FAMOTIDINE 20 MG/2 ML VIAL IV ONE (17:16)
[2024-08-15] MEDS ORDERED: MORPHINE 4 MG/ML SYR ONE (17:16)
[2024-08-15] MEDS ORDERED: PROMETHAZINE INJ 25 MG/ML AMP ONE (17:16)
[2024-08-15] MEDS ORDERED: ONDANSETRON 4 MG/2 ML VIAL ONE (17:16)
[2024-08-15 17:17] LABS: Specific Gravity > 1.030 (1.005-1.030); Sqamous Epithelial 20-50 /HPF (None Seen); Urine Bacteria None Seen /HPF (<20); Urine Bilirubin 1+ (Negative); Urine Blood Negative (Negative); Urine Clarity Extremely Turbid (Clear); Urine Color Yellow (Yellow); Urine Culture Reflex Order NOT NEEDED; Urine Glucose TRACE (Negative); Urine Ketones 4+ (Over) (Negative); Urine Microscopic Reflex YN ORDER UMIC; Urine Mucus 4+ /HPF (None Seen); Urine Nitrite NEGATIVE (Negative); Urine Protein 2+ (Negative); Urine RBC <5 /HPF (None Seen); Urine Urobilinogen 2+ (Normal); Urine WBC <5 /HPF (<5); Urine pH 6.5 (5.0-7.0)
[2024-08-15 17:19] LABS: Specific Gravity > 1.030 (1.005-1.030)
[2024-08-15 17:32] LABS: ALT/SGPT 16 U/L (13-56); Albumin 4.3 g/dL (3.4-5.0); Albumin/Globulin Ratio 1.1 (1.1-1.8); Alkaline Phosphatase 67 U/L (45-117); Anion Gap 12.4 mEq/L (5.0-15.0); BUN Blood Urea Nitrogen 20 mg/dL (7-18); Bicarbonate 22 mEq/L (21-32); Bilirubin Total 1.3 mg/dL (0.2-1.0); Glomerular Filtration Rate 108 ml/min (=/>90); Glucose Level 164 mg/dL (74-106); Lipase 12 U/L (13-75); Magnesium 1.9 mg/dL (1.6-2.4); Potassium 3.4 mEq/L (3.5-5.1); Protein, Total 8.3 g/dL (6.4-8.2); Sodium Level 136 mEq/L (136-145)
[2024-08-15 17:35] LABS: AST/SGOT < 10 U/L (15-37)
--- NOTE | 2024-08-15 18:45 | RAD REPORT ---
EXAMINATION: CT ABDOMEN AND PELVIS WITH CONTRAST CLINICAL INDICATION: Female, 28 years old.ABD PAIN TECHNIQUE: CT abdomen and pelvis was performed, after the administration of IV contrast, [facility]. Axial, sagittal and coronal reconstructions were obtained. One or more of the following dose reduction techniques were used: Automated exposure control, adjustment of the mA and/o r kV according to patient size, and/or iterative reconstruction. Unless otherwise specified, incidental findings do not require dedicated imaging follow-up. [id number]. COMPARISON: No prior exam. FINDINGS: LOWER CHEST: The visualized lung bases are clear. LIVER: Normal in size and contour. No focal lesion. GALLBLADDER/BILE DUCT: No biliary ductal dilatation.? PANCREAS: No significant abnormality. SPLEEN: Normal size. No focal lesion. ADRENALS: Normal; no mass. KIDNEYS AND URETERS: Normal size and contour. No hydronephrosis. GASTROINTESTINAL TRACT: Stomach is non-dilated. Small bowel has normal course and caliber. The colon appears diffusely thickened. The appendix is normal. PERITONEUM: Mild pelvic free fluid LYMPH NODES: No lymphadenopathy. ABDOMINAL AORTA AND OTHER VESSELS: Normal caliber aorta and IVC. URINARY BLADDER: Normal contour. REPRODUCTIVE ORGANS: No pathologic process MUSCULOSKELETAL: No acute or suspicious osseous abnormality. ADDITIONAL FINDINGS: None. IMPRESSION: Diffuse colonic wall thickening concerning for a pancolitis.
[2024-08-15] MEDS ORDERED: POTASSIUM CL SA 10 MEQ TAB PO ONE (19:00)
--- NOTE | 2024-08-15 19:16 | ER ---
Nurse's Notes [facility] Name: Mitra Melendez Age: 28 yrs Sex: Female : 1995 Arrival Date: 08/15/2024 Time: 16:34 Bed 18 Private MD: Diagnosis: Other specified noninfective gastroenteritis and colitis;Cyclical vomiting, not intractable Presentation: 08/15 16:41 Chief complaint: Patient states: n/v x3 days with epigastric pain. Coronavirus screen: kc At this time, the client does not indicate any symptoms associated with coronavirus-19. Ebola Screen: No symptoms or risks identified at this time. Initial Sepsis Screen: Does the patient meet any 2 criteria? No. Patient's initial sepsis screen is negative. Does the patient have a suspected source of infection? No. Patient's initial sepsis screen is negative. Risk Assessment: Do you want to hurt yourself or someone else? Patient reports no desire to harm self or others. Onset of symptoms was August 15, 2024. 16:41 Method Of Arrival: Ambulatory [facility] 16:41 Acuity: ELBERT 3 6 Triage Assessment: 16:46 General: Appears in no apparent distress. uncomfortable, well developed, Behavior is kc6 cooperative, restless. Pain: Complains of pain in epigastric area Pain currently is 8 out of 10 on a pain scale. Neuro: Reports dizziness, weakness. GI: Reports upper abdominal pain, diarrhea, epigastric pain, intolerance of fluids, intolerance of food, nausea, vomiting, Patient currently denies diarrhea. Derm: No signs and/or symptoms reported regarding the dermatologic system. Skin is intact, is healthy with good turgor, Skin is dry, Skin is pale, Skin temperature is warm. MEDICAL CLAIMS SPECIALIST: 16:44 LMP N/A - control method, Not [facility] Historical: - Allergies: 16:44 Bactrim; kc6 - PMHx: 16:44 Substance Abuse; kc6 - PSHx: 16:44 anal fissure repair; kc6 - Immunization history:: Adult Immunizations up to date. - Infectious Disease History:: Denies. - Social history:: Smoking status: Patient reports the use of cigarette tobacco products, smokes one pack cigarettes per day. Screenin:00 [facility] ED Fall Risk Assessment (Adult) History of falling in the last 3 months, jb4 including since admission No falls in past 3 months (0 pts) Confusion or Disorientation No (0 pts) Intoxicated or Sedated No (0 pts) Impaired Gait No (0 pts) Mobility Assist Device Used No (0 pt) Altered Elimination No (0 pt) Score/Fall Risk Level 0 - 2 = Low Risk Oriented to surroundings, Maintained a safe environment. Abuse screen: Denies threats or abuse. Nutritional screening: No deficits noted. Tuberculosis screening: No symptoms or risk factors identified. Assessment: 17:15 General: Appears in no apparent distress. uncomfortable, Behavior is. Pain: Complains jb4 of pain in abdomen Pain does not radiate. Pain currently is 9 out of 10 on a pain scale. Neuro: Level of Consciousness is awake, alert, obeys commands, Oriented to person, place, time, situation. Cardiovascular: Patient's skin is warm and dry. Respiratory: Airway is patent Respiratory effort is even, unlabored, Respiratory pattern is regular, symmetrical. GI: Abdomen is flat, non-distended, Pt is actively vomiting bile. Derm: Skin is intact, Skin is pink, warm \T\ dry. Musculoskeletal: Circulation, motion, and sensation intact. Range of motion: intact in all extremities. 18:00 Reassessment: Patient appears in no apparent distress at this time. Patient and/or jb4 family updated on plan of care and expected duration. Pain level reassessed. Patient is alert, oriented x 3, equal unlabored respirations, skin warm/dry/pink. 19:29 Reassessment: Patient appears in no apparent distress at this time. Patient and/or jb4 family updated on plan of care and expected duration. Pain level reassessed. Patient is alert, oriented x 3, equal unlabored respirations, skin warm/dry/pink. Patient states feeling better. Vital Signs: 16:41 BP 127 / 80; Pulse 80; Resp 17 S; Temp 97.6(O); Pulse Ox 100% on R/A; Weight 68.04 kg kc6 (R); Height 5 ft. 7 in. (R); Pain 8/10; 17:00 BP 128 / 82; Pulse 72; Resp 16; Pulse Ox 99% on R/A; jb4 18:00 BP 109 / 77; Pulse 87; Resp 16; Pulse Ox 100% on R/A; jb4 19:00 BP 100 / 61; Pulse 83; Resp 16; Pulse Ox 98% on R/A; jb4 16:41 Body Mass Index 23.49 (68.04 kg, 170.18 cm) kc6 16:41 Pain Scale: Adult kc6 ED Course: 16:37 Patient arrived in ED. mg5 16:44 Triage completed. kc6 16:44 Chico Crabtree PA is PHCP. cp 16:44 John Benjamin MD is Attending Physician. cp 16:44 Arm band placed on. kc6 16:57 Inserted saline lock: 20 gauge in right wrist, using aseptic technique. Blood kc6 collected. Flushed with 10 mL NS. 18:21 PHCP role handed off by Chico Crabtree PA dr5 18:21 Fidencio Pandey FNP-C is PHCP. dr5 18:30 CT Abd/Pelvis - IV Contrast Only In Process Unspecified. EDMS 19:00 Patient has correct armband on for positive identification. Bed in low position. Call jb4 light in reach. Side rails up X 1. Provided Education on: discharge instructions. 19:00 No provider procedures requiring assistance completed. IV discontinued, intact, jb4 bleeding controlled, No redness/swelling at site. Pressure dressing applied. Administered Medications: 17:30 Drug: Famotidine IVP 20 mg IVP once; dilute with 10 mL 0.9% NaCl; give over 2 minutes jb4 Route: IVP; Site: right wrist; 17:30 Drug: NS 0.9% IV 1000 ml IV at 1 bolus Per protocol; to be given as a bolus over 60 jb4 minutes {Note: administered with Promethazine in bag..} Route: IV; Rate: 1 bolus; Site: right wrist; 17:30 Drug: Promethazine IVP 25 mg IVP once; place in IV fluids please {Note: administered in jb4 NS bolus.} Route: IVP; Site: right wrist; 17:31 Drug: Ondansetron IVP 4 mg IVP once; over 2 minutes Route: IVP; Site: right wrist; jb4 17:31 Drug: morphine IVP or IV 4 mg IVP once over 4 mins Route: IVP; Infused Over: 4 mins; jb4 Site: right wrist; 18:55 Not Given (Physician Discretion): ns 0.9% 1000 ml IV at 1 bolus Per protocol; to be jb4 given as a bolus over 60 minutes 19:17 Drug: Potassium Chloride PO 40 mEq PO once Route: PO; jb4 Medication: 19:00 VIS not applicable for this client. jb4 Outcome: 19:16 Discharge ordered by . dr5 19:36 Discharged to home ambulatory, jb4 19:36 Condition: stable 19:36 Discharge instructions given to patient, Instructed on discharge instructions, follow up and referral plans. medication usage, Demonstrated understanding of instructions, follow-up care, medications, Prescriptions given X 2, 19:36 Patient left the ED. jb4 Signatures: Dispatcher [employer] EDMS Chico Crabtree PA PA cp Bryson, James RN RN jb4 Lindsay Hickman RN RN kc6 Halle Evans mg5 Fidencio Pandey, RACQUEL-C SAMPLING EXPERT-[id number] Corrections: (The following items were deleted from the chart) 16:45 16:44 Allergies: No Known Allergies; abby kc6
--- NOTE | 2024-08-15 19:16 | EDPHYS ---
Physician Documentation [facility] Name: Mitra Melendez Age: 28 yrs Sex: Female : 1995 Arrival Date: 08/15/2024 Time: 16:34 Bed 18 Private MD: ED Physician John Benjamin HPI: 08/15 16:55 This 28 yrs old Female presents to ER via Ambulatory with complaints of cp Nausea/Vomiting, Abdominal Pain. 16:55 The patient presents to the emergency department with nausea, with "dry heaves", cp vomiting, that is continuous, abdominal pain, of the upper abdomen, described as constant, and does not radiate. Onset: The symptoms/episode began/occurred 3 day(s) ago. Possible causes: unknown. Associated signs and symptoms: Pertinent positives: anorexia, Pertinent negatives: constipation, diarrhea, fever, GI bleeding. Severity of symptoms: in the emergency department the symptoms are unchanged despite home interventions. PHLEBOTOMY PROGRAM COORDINATOR: 16:44 LMP N/A - control method, Not kc6 Historical: - Allergies: 16:44 Bactrim; kc6 - PMHx: 16:44 Substance Abuse; kc6 - PSHx: 16:44 anal fissure repair; kc6 - Immunization history:: Adult Immunizations up to date. - Infectious Disease History:: Denies. - Social history:: Smoking status: Patient reports the use of cigarette tobacco products, smokes one pack cigarettes per day. ROS: 17:00 Constitutional: Negative for body aches, chills, fever, poor PO intake, cp 17:00 Eyes: Negative for injury, pain, redness, and discharge, cp 17:00 Cardiovascular: Negative for chest pain, 17:00 Respiratory: Negative for cough, shortness of breath, wheezing, 17:00 Abdomen/GI: Positive for abdominal pain, nausea and vomiting, anorexia, Negative for diarrhea, constipation, hematemesis, Exam: 17:05 Constitutional: The patient appears in no acute distress, alert, awake, non-toxic, well cp developed, well nourished, uncomfortable, 17:05 Head/Face: Normocephalic, atraumatic. cp 17:05 Eyes: Periorbital structures: appear normal, Conjunctiva: normal, no exudate, no injection, Sclera: no appreciated abnormality, Lids and lashes: appear normal, bilaterally, 17:05 ENT: External ear(s): are unremarkable, Nose: is normal, Mouth: Lips: moist, Oral mucosa: moist, Posterior pharynx: Airway: no evidence of obstruction, patent, 17:05 Chest/axilla: Inspection: normal, 17:05 Cardiovascular: Rate: normal, Rhythm: regular, 17:05 Respiratory: the patient does not display signs of respiratory distress, Respirations: normal, no use of accessory muscles, no retractions, labored breathing, is not present, Breath sounds: are clear throughout, no decreased breath sounds, no stridor, no wheezing, 17:05 Abdomen/GI: Inspection: abdomen appears normal, Bowel sounds: active, all quadrants, Palpation: soft, in all quadrants, severe abdominal tenderness, in the epigastric area, right upper quadrant and left upper quadrant, voluntary guarding, is elicited in the epigastric area, right upper quadrant and left upper quadrant, 17:05 Back: CVA tenderness, is absent, 17:05 Neuro: Orientation: to person, place \\T\\ time. Mentation: is normal, Vital Signs: 16:41 BP 127 / 80; Pulse 80; Resp 17 S; Temp 97.6(O); Pulse Ox 100% on R/A; Weight 68.04 kg kc6 (R); Height 5 ft. 7 in. (R); Pain 8/10; 17:00 BP 128 / 82; Pulse 72; Resp 16; Pulse Ox 99% on R/A; jb4 18:00 BP 109 / 77; Pulse 87; Resp 16; Pulse Ox 100% on R/A; jb4 19:00 BP 100 / 61; Pulse 83; Resp 16; Pulse Ox 98% on R/A; jb4 16:41 Body Mass Index 23.49 (68.04 kg, 170.18 cm) kc6 16:41 Pain Scale: Adult kc6 MDM: 16:44 Medical Screening Exam initiated cp 19:18 Differential diagnosis: Nonspecific abd pain, gastritis, diverticulitis, viral dr5 gastroenteritis, gastroenteritis. Data reviewed: vital signs, nurses notes. Consideration of Admission/Observation Escalation of care including admission/observation considered. Pt passed PO challenge.. 19:20 Transition of care: Care assumed from [place] KHAN. ED course: Pt passed PO challenge. dr5 Discussed cannabinoid hyperemesis and cannabinoid cessation. Will cover possible infectious colitis with Augmentin. Zofran sent for vomiting. Pt is feeling much better on discharge. PCP follow up recommended.. 08/15 16:52 Order name: CBC with Diff cp 08/15 17:39 Interpretation: Normal except: WBC 15.80; PATTI% 90.0; LYM% 6.0; NEUT A 14.2. cp 08/15 16:52 Order name: CMP; Complete Time: 17:39 cp 08/15 17:39 Interpretation: Normal except: K 3.4; GLUC 164; BUN 20; AST < 10; BILIT 1.3; CA 10.5; cp TP 8.3; GLOB 4.0. 08/15 16:52 Order name: Lipase; Complete Time: 17:39 cp 08/15 16:52 Order name: Test, Urine; Complete Time: 17:39 cp 08/15 16:52 Order name: Urinalysis w/ reflexes; Complete Time: 17:39 cp 08/15 16:52 Order name: Magnesium; Complete Time: 17:39 cp 08/15 17:40 Order name: CT Abd/Pelvis - IV Contrast Only; Complete Time: 18:48 cp 08/15 16:52 Order name: IV Saline Lock; Complete Time: 16:57 cp 08/15 16:52 Order name: Labs collected and sent; Complete Time: 16:57 cp Administered Medications: 17:30 Drug: Famotidine IVP 20 mg IVP once; dilute with 10 mL 0.9% NaCl; give over 2 minutes jb4 Route: IVP; Site: right wrist; 17:30 Drug: NS 0.9% IV 1000 ml IV at 1 bolus Per protocol; to be given as a bolus over 60 jb4 minutes {Note: administered with Promethazine in bag..} Route: IV; Rate: 1 bolus; Site: right wrist; 17:30 Drug: Promethazine IVP 25 mg IVP once; place in IV fluids please {Note: administered in jb4 NS bolus.} Route: IVP; Site: right wrist; 17:31 Drug: Ondansetron IVP 4 mg IVP once; over 2 minutes Route: IVP; Site: right wrist; jb4 17:31 Drug: morphine IVP or IV 4 mg IVP once over 4 mins Route: IVP; Infused Over: 4 mins; jb4 Site: right wrist; 18:55 Not Given (Physician Discretion): ns 0.9% 1000 ml IV at 1 bolus Per protocol; to be jb4 given as a bolus over 60 minutes 19:17 Drug: Potassium Chloride PO 40 mEq PO once Route: PO; jb4 Disposition: 19:42 Co-signature as Attending Physician, John Benjamin MD I reviewed the patient's care rn provided by the Advanced Practice Provider and agree with the diagnosis and treatment plan. Disposition Summary: 08/15/24 19:16 Discharge Ordered Notes: Location: Home dr5 Condition: Stable dr5 Diagnosis - Other specified noninfective gastroenteritis and colitis dr5 - Cyclical vomiting, not intractable dr5 Followup: dr5 - With: Emergency Department - When: - Reason: Worsening of condition Followup: dr5 - With: Private Physician - When: 1 - 2 days - Reason: Recheck today's complaints, Continuance of care, Re-evaluation by your physician Discharge Instructions: - Discharge Summary Sheet dr5 - Cannabinoid Hyperemesis Syndrome dr5 Forms: - Medication Reconciliation Form dr5 - Antibiotic Education dr5 - Patient Portal Instructions dr5 - Leadership Thank You Letter dr5 Prescriptions: - Augmentin 875-125 mg Oral Tablet - take 1 tablet ORAL route every 12 hours for 10 days; 20 tablet; Refills: 0, dr5 Product Selection Permitted - Zofran 4 mg Oral Tablet - take 1 tablet ORAL route every 12 hours As needed; 20 tablet; Refills: 0, dr5 Product Selection Permitted Signatures: Dispatcher [employer] EDMS John Benjamin MD MD rn Page, Corey, PA PA cp Bryson, James, RN RN jb4 Lindsay Hickman RN RN kc6 Fidencio Pandey, RACQUEL-C UNLOADING CHECKER-Cdr5 Corrections: (The following items were deleted from the chart) 16:45 16:44 Allergies: No Known Allergies; kc6 kc6 18:58 17:41 SARS-COV-2 Antigen Rapid+I.LAB.BRZ ordered. EDMS EDMS 18:58 17:41 Influenza Screen (A \\T\\ B)+BA.LAB.BRZ ordered. EDMS EDMS 19:19 19:16 Mild hyperemesis gravidarum dr5 dr5
[2024-08-15 21:21] LABS: Platelet Estimate ADEQ; White Blood Cell Scan OK (OK)
[2024-08-15 21:22] LABS: Blood Morphology Comment NOT SEEN (NOT SEEN)
[2024-08-15 22:28] VITALS: TEMP 97.6
[2024-08-15 22:41] VITALS: BP 100/61; O2SAT 98
== END 2024-08-15 19:36 | disposition home or self-care (01) ==
LOC: ER 16:34
DX: A08.39 Other viral enteritis (principal); F17.210 Nicotine dependence, cigarettes, uncomplicated
CPT/HCPCS: 85025; 81001; 36415; 83735; 81025; 83690; 80053; 74177; 96375; 96374; 99284; Q9967; J2550; J2405; J7030

== ENCOUNTER 2024-08-16 05:07 | Emergency (ER) | payer OTHER ==
--- OUTSIDE RECORDS SUMMARY | 2024-08-16 05:16 | XMS REPORT | Continuity of Care Document ---
Author Name Unknown Address [address] [facility] [address] [place] [address] [facility] Address [address] [facility] [address] [place] [address] Care Team Providers Care Sale Professional Digital Marketing Name Role Phone PCP, PATIENT DOES NOT HAVE A Primary Care Physic katlin Unavailable MARCIA OCAMPO Attending Clinician Unavailable CARITO PICHARDO Attending Clinician Unavailable Marcia Ocampo MD Attending Clinician [phone] Doctor Unassigned, [place] Attending Clinician U suailable Sachin Willima MD Attending Clinicia n Darius GAITAN, Loreta Attending Clinician [phone] Po, [facility] Main Attending Clinician Unavailabl e Lab, Ang - Db Attending Clinician Unavailable LEONA PRIETO Attending Clinician Unav ailable Ultrasound, [facility] Attending Clinician UnavailLeona Escalera MD Attending Clinician + [email or web address]_S Attending Clinician UnavailMarine Jo MD Attending Clinician [phone] MARINE WORTHINGTON Attending Clinician Unavailable MARINE WORTHINGTON Attending Clinician Unavailable ATUL SENA Attending Clinician Unavailable Atul Sena DO Attending Clinician [phone] Gretel GAITAN, Martell Attending Clinician [phone] Marely Ly RN Attending Clinician Unavailabl e Nurse, [facility] Attending Clinician Un available Leia Everett RN Attending Clinician UnavailRAMIREZ Back Attending Clinician Unavailable Ramirze Sanchez MD Attending Clinician [phone] EDITA DYE Attending Clinician Unavaila Edita Junior CNM Attending Clinician [phone] GERMAN BACK Attending Clinician Unavailab SURJIT Catalan Attending Clinician Unavail able Krystal WHCNPSurjit Attending Clinician + German Gil Attending Clinician + [phone] SKYLER CUELLAR Attending Clinician Unavailtamia Cuellar TANK TENDER, Skyler Douglas Attending Clinician [phone] LORENZO CHEATHAM Attending Clinician Unavail able Visit, [facility] Nurse Attending Clinician Mikkiva dennys Sanchez MD, Monica Alejandra Attending Clinician [phone] MARCIA OCAMPO Admitting Clinician Unavailable [email or web address] Admitting Clinician Unavaila guillermo Payers Payer Name Policy Type Policy Number Effective Date Expirati on Date Source [place] [employer] [id number] 2023 00:00:00 Problems Condition Name Condition Details Condition Category Status Onset Date Resolution Date Last Treatment Date Treating Clinician Comments Source 39 weeks gestation of 39 weeks gestation of Disease Active 09-25 00:00: 00 [facility] Liveborn , of [place] , born in hospital by vaginal delivery Liveborn , of [place] , born in hospital by vaginal delivery Disease Active 09-25 00:00: 00 [facility] 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 test for herpes simplex virus (HSV) antibody Disease Active 05-17 00:00: 00 [facility] GDM (gestation al diabetes mellitus), class A1 GDM (gestation al diabetes mellitus), class A1 Disease Active 04-19 00:00: 00 [facility] High-risk in third trimester High-risk in third trimester Disease Active 04-19 00:00: 00 [facility] Family history of congenital heart disease Family history of congenital heart disease Disease Active 8-11 00:00: 00 [facility] History of gestationa l diabetes mellitus (GDM) History of gestationa l diabetes mellitus (GDM) Disease Active 8-11 00:00: 00 [facility] Normal in first trimester Normal in first trimester Disease Active 7-14 00:00: 00 [facility] Nausea and vomiting during prior to 22 weeks gestation Nausea and vomiting during prior to 22 weeks gestation Disease Active 7-14 00:00: 00 [facility] History of anxiety and depression History of anxiety and depression Disease Active 4-13 00:00: 00 [facility] BMI 25.0-25.9, adult BMI 25.0-25.9, adult Disease Active 4-07 00:00: 00 [facility] BMI 25.0-25.9, adult BMI 25.0-25.9, adult Disease Active 4-07 00:00: 00 [facility] Nexplanon in place Nexplanon in place Disease Active 3- 00:00: 00 [facility] Flu vaccine need Flu vaccine need Disease Active 3-31 00:00: 00 [facility] Internal thrombosed hemorrhoid s Internal thrombosed hemorrhoid s Disease Active 0 6- 00:00: 00 [facility] Chlamydia trachomati s infection of lower genitourin victorina sites Chlamydia trachomati s infection of lower genitourin victorina sites Disease Active 2018-09 2 00:00: 00 [facility] Encounter for surveillan ce of implantabl e subdermal contracept giovanna Encounter for surveillan ce of implantabl e subdermal contracept giovanna Disease Active 2017-09 00:00: 00 [facility] Tobacco use disorder Tobacco use disorder Disease Active 2017-09 00:00: 00 [facility] 23 weeks gestation of 23 weeks gestation of Diagnosis Active [facility] Paronychia of finger of left hand Paronychia of finger of left hand Diagnosis Active [facility] Allergies, Adverse Reactions, Alerts Allergy Name Allergy Type Status Severity Reaction(s) Onset Date Inactive Date Treating Clinician Comments Source NO KNOWN ALLERGIE S Drug Class Active [facility] Social History Social Habit Start Date Stop Date Quantity Comments Source ASSERTION 2023-01-09 00:00:00 [facility] History of tobacco use 2007-10-04 00:00:00 Cigarette Smoker [facility] History SDOH Alcohol Frequency [facility] History SDOH Alcohol Std Drinks [facility] History SDOH Alcohol Binge [facility] Alcohol intake 2023-12-04 00:00:00 2023-12-04 00:00:00 Ex-drinker (finding) [facility] History of Social function 2023-11-06 00:00:00 2023-11-06 00:00:00 [facility] Alcohol Comment 2023-03-22 00:00:00 2023-03-22 00:00:00 qquit when fund out was [facility] Cigarettes smoked current (pack per day) - Reported 2023-03-22 00:00:00 2023-03-22 00:00:00 [facility] Cigarette pack-years 2023-03-22 00:00:00 2023-03-22 00:00:00 [facility] Tobacco use and exposure 2023-03-22 00:00:00 2023-03-22 00:00:00 Smokeless tobacco non-user [facility] Exposure to SARS-CoV-2 (event) 2022-12-10 00:00:00 2022-12-20 14:24:00 Not sure [facility] Sex Assigned At 1995 00:00:00 1995 00:00:00 [facility] Smoking Status Start Date Stop Date Source Smokes tobacco daily 2023-03-22 00:00:00 [facility] Medications Ordered Medication Name Filled Medication Name Start Date Stop Date Current Medication? Ordering Clinician Indication Dosage Frequency Signature (SIG) Comments Components Source sulfamethox azole-trime thoprim (BACTRIM DS) 800-160 mg per tablet 12-03 00:00: 00 12-07 04:59 :00 No [id number] 1{tbl} Take 1 tablet by mouth in the morning and 1 tablet in the evening. Do all this for 3 days. [facility] sulfamethox azole-trime thoprim (BACTRIM DS) 800-160 mg per tablet 11-18 00:00: 00 11-24 04:59 :00 No [id number] 1{tbl} Take 1 tablet by mouth in the morning and 1 tablet in the evening. Do all this for 5 days. [facility] cephALEXin 500 mg capsule 11-12 00:00: 00 11-18 00:00 :00 No [id number] 500mg Take 1 capsule by mouth 4 (four) times daily for 10 days. [facility] etonogestre L (NEXPLANON) implant 68 mg 00:15: 00 11-06 23:46 :00 No [id number] 68mg [facility] metoclopram nabila HCl (REGLAN) tablet 10 mg 09-26 20:15: 00 09-26 19:35 :00 No 10mg 10 mg, Oral, ONCE, 1 dose, On Sat09/26/23 at 1415, Routine [facility] PNV no.95/giancarlo us fum/folic ac ( ORAL) 09-26 07:35: 16 09-26 00:00 :00 No Take by mouth. [facility] rho(D) immune globulin (RHOGAM) syringe 300 mcg 09-26 06:03: 58 Yes 300ug 300 mcg, Intramuscu lar, ONCE, For 1 dose, Conditiona l, Routine [facility] witch Kamryn (TUCKS) 50 % topical pad 09-26 06:03: 53 Yes Topical, Q4HPRN, Starting on Sat09/26/23 at 0003, Until Discontinu ed, Routine, rectal/hem orrhoidal pain [facility] HYDROcodone -acetaminop hen (NORCO 5) 5-325 mg tablet 1 tablet 09-26 06:03: 53 Yes 1{tbl} 1 tablet, Oral, Q6HPRN, Starting on Sat09/26/23 at 0003, Until Discontinu ed, Routine, Pain (scale 7-10) [facility] ibuprofen (IBU) tablet 600 mg 09-26 06:03: 53 Yes 600mg 600 mg, Oral, Q6HPRN, Starting on Sat09/26/23 at 0003, Until Discontinu ed, Routine, Pain (scale 4-6) [facility] acetaminoph en (TYLENOL) tablet 650 mg 09-26 06:03: 53 Yes 650mg 650 mg, Oral, Q6HPRN, Starting on Sat09/26/23 at 0003, Until Discontinu ed, Routine, Pain (scale 1-3) [facility] diphenhydrA MINE (BENADRYL) tablet 25 mg 09-26 06:03: 53 Yes 25mg 25 mg, Oral, Q6HPRN, Starting on Sat09/26/23 at 2, Until Discontinu ed, Routine, Sleep, Itching [facility] ondansetron (ZOFRAN (PF)) injection 4 mg 09-26 06:03: 53 Yes 4mg 4 mg, Slow IV Push, Q8HPRN, Starting on Sat09/26/23 at 2, Until Discontinu ed, Routine, Nausea and Vomiting (N/V) [facility] simethicone (GAS RELIEF (SIMETHICON E)) chewable tablet 160 mg 09-26 06:03: 53 Yes 160mg 160 mg, Oral, PC+HSPRN, Starting on Sat09/26/23 at 0003, Until Discontinu ed, Routine, Gas [facility] docusate (COLACE) capsule 200 mg 09-26 06:03: 53 Yes 200mg 200 mg, Oral, QDAILYPRN, Starting on Sat09/26/23 at 0003, Until Discontinu ed, Routine, Constipati on [facility] magnesium hydroxide (MILK OF MAGNESIA) 400 mg/5 mL suspension 30 mL 09-26 06:03: 53 Yes 30mL 30 mL, Oral, QDAILYPRN, Starting on Sat09/26/23 at 0003, Until Discontinu ed, Routine, Constipati on [facility] benzocaine- menthol (DERMOPLAST ) 20-0.5 % topical spray 09-26 06:03: 53 Yes Topical, PRN, Starting on Sat09/26/23 at 0003, Until Discontinu ed, Routine, Perineum discomfort [facility] vitamin w/FA tablet 09-26 00:00: 00 11-06 00:00 :00 No [id number] 1{tbl} Take 1 tablet by mouth in the morning. [facility] docusate 100 mg capsule 09-26 00:00: 00 11-06 00:00 :00 No [id number] 200mg Take 2 capsules by mouth once daily as needed for Constipati on. [facility] ferrous sulfate 325 mg (65 mg iron) tablet 09-26 00:00: 00 11-06 00:00 :00 No [id number] 325mg Take 1 tablet by mouth in the morning and 1 tablet in the evening. [facility] ibuprofen 600 mg tablet 09-26 00:00: 00 11-06 00:00 :00 No [id number] 600mg Take 1 tablet by mouth every 6 (six) hours as needed (Pain). Take with food or milk. [facility] PNV no.95/giancarlo us fum/folic ac ( ORAL) 09-25 23:18: 46 Yes Take by mouth. [facility] fentaNYL-ro pivacaine 2 mcg/mL-0.1 % (PF) in NS 200 mL epidural infusion RTU 09-25 16:57: 00 Yes Epidural, CONTINUOUS PRN, Starting on Sat09/25/23 at 1057, Until Discontinu ed, Routine, Intra-op [facility] lidocaine-e pinephrine (XYLOCAINE W/EPINEPHRI NE) 1.5 %-1:200,000 injection 09-25 16:49: 00 Yes Intraderma l, ONCE INTRA PROCEDURE, Starting on Sat09/25/23 at 1049, Until Discontinu ed, Routine, Intra-op [facility] acyclovir (ZOVIRAX) tablet 400 mg 09-25 14:00: 00 09-26 06:03 :57 No 400mg 400 mg, Oral, TID, First dose on Sat09/25/23 at 0800, Until Discontinu ed, BALTA [facility] lactated ringers IV infusion 500 mL 09-25 12:32: 53 09-26 06:03 :56 No 500mL at 999 mL/hr, 500 mL, IV Infusion, PRN - SEE INSTRUCTIO NS, Starting on Sat09/25/23 at 0632, Until Kate 09/26/23 at 0003, Routine [facility] FENTanyl PF (SUBLIMAZE (PF)) injection 100 mcg 09-25 12:32: 53 09-26 06:03 :57 No 100ug 100 mcg, Slow IV Push, Q1HPRN, Starting on Sat09/25/23 at 0632, Until Kate 09/26/23 at 0003, Routine, contractio n pain without an epidural and SVE < 8 cm and Cat I strip [facility] oxytocin (PITOCIN) 30 units in NS 500 mL IV infusion 09-25 12:32: 53 09-26 06:03 :57 No 2mU/min at 2-40 mL/hr, IV Infusion, TITRATE, Starting on Sat09/25/23 at 0632, Until Kate 09/26/23 at 0003, BALTA [facility] D5W-LR IV infusion 1,000 mL 09-25 12:32: 53 09-26 06:03 :56 No 1000mL at 1-125 mL/hr, IV Infusion, TITRATE, Starting on Sat09/25/23 at 0632, Until Kate 09/26/23 at 0003, Routine [facility] PNV no.95/giancarlo us fum/folic ac ( ORAL) 1-12 14:40: 57 Yes Take by mouth. [facility] nirmatrelvi r-ritonavir (PAXLOVID) 300 mg (150 mg x 2)-100 mg tablet 2022-09 2-29 00:00: 00 Yes 3{tbl} Take 3 tablets by mouth in the morning and 3 tablets in the evening. [facility] PNV no.95/giancarlo us fum/folic ac ( ORAL) 2022-09 2-15 13:12: 22 Yes Take by mouth. [facility] acyclovir 400 mg tablet 2022-09 2 00:00: 00 09-26 00:00 :00 No [id number] 400mg Take 1 tablet by mouth in the morning and 1 tablet at noon and 1 tablet in the evening. [facility] blood sugar diagnostic (BLOOD GLUCOSE TEST) strip 2022-09 0- 00:00: 00 09-26 00:00 :00 No Check gluocose 4 times a day [facility] sulfamethox azole-trime thoprim (BACTRIM DS) 800-160 mg per tablet 9-08 00:00: 00 05-28 04:59 :00 No [id number] 1{tbl} Take 1 tablet by mouth in the morning and 1 tablet in the evening. Do all this for 10 days. [facility] cephALEXin (KEFLEX) 500 mg capsule 05-06 00:00: 00 05-14 04:59 :00 No [id number] 500mg Take 1 capsule by mouth in the morning and 1 capsule at noon and 1 capsule in the evening. Do all this for 7 days. [facility] Blood-Gluco se Meter Kit 03-27 00:00: 00 09-26 00:00 :00 No Check glucose 4 times a day. [facility] Lancets Misc 03-27 00:00: 00 09-26 00:00 :00 No Check glucose 4 times a day [facility] Alcohol Swabs (ALCOHOL PADS) PadM 03-27 00:00: 00 09-26 00:00 :00 No Apply to area(s) 4 (four) times daily. [facility] blood sugar diagnostic (BLOOD GLUCOSE TEST) strip 03-27 00:00: 00 07-09 00:00 :00 No Check gluocose 4 times a day [facility] PNV no.95/giancarlo us fum/folic ac ( ORAL) 03-22 09:00: 18 Yes Take by mouth. [facility] pyridoxine, VITAMIN B-6, (VITAMIN B-6) 25 mg tablet 03-22 00:00: 00 09-26 00:00 :00 No [id number] 25mg Take 1 tablet by mouth every 6 (six) hours as needed for Nausea and Vomiting (N/V). [facility] doxylamine (UNISOM, DOXYLAMINE, ) 25 mg tablet 03-22 00:00: 00 09-26 00:00 :00 No [id number] 25mg Take 1 tablet by mouth at bedtime as needed for Nausea and Vomiting (N/V). [facility] metoclopram nabila HCl 10 mg tablet 03-22 00:00: 00 09-26 00:00 :00 No [id number] 10mg Take 1 tablet by mouth every 6 (six) hours as needed for Nausea and Vomiting (N/V). [facility] ondansetron (ZOFRAN-ODT ) disintegrat ing tablet 4 mg 03-07 05:00: 00 03-07 03:55 :00 No 4mg 4 mg, Oral, ONCE, 1 dose, On Kate 03/07/23 at 0000, BALTA [facility] doxylamine- pyridoxine, vit B6, (DICLEGIS) 10-10 mg per tablet 03-06 00:00: 00 03-22 00:00 :00 No [id number] 1{tbl} Take 1 tablet by mouth 4 (four) times daily as needed for Nausea and Vomiting (N/V). [facility] No known medications 2021-09 13:50: 57 No No known medication s [facility] No known medications 12-14 09:03: 50 No [facility] Yes Florencio Mitchell 1 tablet [facility] Immunizations Ordered Immunization Name Filled Immunization Name Date Status Comments Source Influenza Virus Vaccine Quad .5 mL IM 6+ MO 2021-12-14 00:00:00 Completed [facility] Influenza Virus Vaccine Quad .5 mL IM 6+ MO 2021-12-14 00:00:00 Completed [facility] Influenza Virus Vaccine Quad .5 mL IM 6+ MO 2021-12-14 00:00:00 Completed [facility] Influenza Virus Vaccine Quad .5 mL IM 6+ MO 2021-12-14 00:00:00 Completed [facility] Influenza Virus Vaccine Quad .5 mL IM 6+ MO 2021-12-14 00:00:00 Completed [facility] Influenza Virus Vaccine Quad .5 mL IM 6+ MO 2021-12-14 00:00:00 Completed [facility] Influenza Virus Vaccine Quad .5 mL IM 6+ MO 2021-12-14 00:00:00 Completed [facility] Influenza Virus Vaccine Quad .5 mL IM 6+ MO 2021-12-14 00:00:00 Completed [facility] Influenza Virus Vaccine Quad .5 mL IM 6+ MO 2021-12-14 00:00:00 Completed [facility] Influenza Virus Vaccine Quad .5 mL IM 6+ MO (FLUZONE/FLULAVAL/FL UARIX) 2021-12-14 00:00:00 Completed [facility] Influenza Virus Vaccine Quad .5 mL IM 6+ MO (FLUZONE/FLULAVAL/FL UARIX) 2021-12-14 00:00:00 Completed [facility] Influenza Virus Vaccine Quad .5 mL IM 6+ MO 2021-12-14 00:00:00 Completed [facility] Influenza Virus Vaccine Quad .5 mL IM 6+ MO 2021-12-14 00:00:00 Completed [facility] Influenza Virus Vaccine Quad .5 mL IM 6+ MO 2021-12-14 00:00:00 Completed [facility] Influenza Virus Vaccine Quad .5 mL IM 6+ MO 2021-12-14 00:00:00 Completed [facility] Influenza Virus Vaccine Quad .5 mL IM 6+ MO 2021-12-14 00:00:00 Completed [facility] Influenza Virus Vaccine Quad .5 mL IM 6+ MO 2021-12-14 00:00:00 Completed [facility] Influenza Virus Vaccine Quad .5 mL IM 6+ MO 2021-12-14 00:00:00 Completed [facility] Influenza Virus Vaccine Quad .5 mL IM 6+ MO 2021-12-14 00:00:00 Completed [facility] Influenza Virus Vaccine Quad .5 mL IM 6+ MO 2021-12-14 00:00:00 Completed [facility] Influenza Virus Vaccine Quad .5 mL IM 6+ MO 2021-12-14 00:00:00 Completed [facility] Influenza Virus Vaccine Quad .5 mL IM 6+ MO 2021-12-14 00:00:00 Completed [facility] Influenza Virus Vaccine Quad .5 mL IM 6+ MO 2021-12-14 00:00:00 Completed [facility] Influenza Virus Vaccine Quad .5 mL IM 6+ MO 2021-12-14 00:00:00 Completed [facility] Influenza Virus Vaccine Quad .5 mL IM 6+ MO 2021-12-14 00:00:00 Completed [facility] HPV9 2020-12-07 00:00:00 Completed [facility] HPV9 2020-12-07 00:00:00 Completed [facility] HPV9 2020-12-07 00:00:00 Completed [facility] HPV9 2020-12-07 00:00:00 Completed [facility] HPV9 2020-12-07 00:00:00 Completed [facility] HPV9 2020-12-07 00:00:00 Completed [facility] HPV9 2020-12-07 00:00:00 Completed [facility] HPV9 2020-12-07 00:00:00 Completed [facility] HPV9 2020-12-07 00:00:00 Completed [facility] HPV9 2020-12-07 00:00:00 Completed [facility] HPV9 2020-12-07 00:00:00 Completed [facility] HPV9 2020-12-07 00:00:00 Completed [facility] HPV9 2020-12-07 00:00:00 Completed [facility] HPV9 2020-12-07 00:00:00 Completed [facility] HPV9 2020-12-07 00:00:00 Completed [facility] HPV9 2020-12-07 00:00:00 Completed [facility] HPV9 2020-12-07 00:00:00 Completed [facility] HPV9 2020-12-07 00:00:00 Completed [facility] HPV9 2020-12-07 00:00:00 Completed [facility] HPV9 2020-12-07 00:00:00 Completed [facility] HPV9 2020-12-07 00:00:00 Completed [facility] HPV9 2020-12-07 00:00:00 Completed [facility] HPV9 2020-12-07 00:00:00 Completed [facility] HPV9 2020-12-07 00:00:00 Completed [facility] HPV9 2020-12-07 00:00:00 Completed [facility] HPV9 2019-09-17 00:00:00 Completed [facility] HPV9 2019-09-17 00:00:00 Completed [facility] HPV9 2019-09-17 00:00:00 Completed [facility] HPV9 2019-09-17 00:00:00 Completed [facility] HPV9 2019-09-17 00:00:00 Completed [facility] HPV9 2019-09-17 00:00:00 Completed [facility] HPV9 2019-09-17 00:00:00 Completed [facility] HPV9 2019-09-17 00:00:00 Completed [facility] HPV9 2019-09-17 00:00:00 Completed [facility] HPV9 2019-09-17 00:00:00 Completed [facility] HPV9 2019-09-17 00:00:00 Completed [facility] HPV9 2019-09-17 00:00:00 Completed [facility] HPV9 2019-09-17 00:00:00 Completed [facility] HPV9 2019-09-17 00:00:00 Completed [facility] HPV9 2019-09-17 00:00:00 Completed [facility] HPV9 2019-09-17 00:00:00 Completed [facility] HPV9 2019-09-17 00:00:00 Completed [facility] HPV9 2019-09-17 00:00:00 Completed [facility] HPV9 2019-09-17 00:00:00 Completed [facility] HPV9 2019-09-17 00:00:00 Completed [facility] HPV9 2019-09-17 00:00:00 Completed [facility] HPV9 2019-09-17 00:00:00 Completed [facility] HPV9 2019-09-17 00:00:00 Completed [facility] HPV9 2019-09-17 00:00:00 Completed [facility] HPV9 2019-09-17 00:00:00 Completed [facility] HPV9 2019-08-05 00:00:00 Completed [facility] Influenza Virus Vaccine Quad .5 mL IM 6+ MO 2019-08-05 00:00:00 Completed [facility] HPV9 2019-08-05 00:00:00 Completed [facility] Influenza Virus Vaccine Quad .5 mL IM 6+ MO 2019-08-05 00:00:00 Completed [facility] HPV9 2019-08-05 00:00:00 Completed [facility] Influenza Virus Vaccine Quad .5 mL IM 6+ MO 2019-08-05 00:00:00 Completed [facility] HPV9 2019-08-05 00:00:00 Completed [facility] Influenza Virus Vaccine Quad .5 mL IM 6+ MO 2019-08-05 00:00:00 Completed [facility] HPV9 2019-08-05 00:00:00 Completed [facility] Influenza Virus Vaccine Quad .5 mL IM 6+ MO 2019-08-05 00:00:00 Completed [facility] HPV9 2019-08-05 00:00:00 Completed [facility] Influenza Virus Vaccine Quad .5 mL IM 6+ MO 2019-08-05 00:00:00 Completed [facility] HPV9 2019-08-05 00:00:00 Completed [facility] Influenza Virus Vaccine Quad .5 mL IM 6+ MO 2019-08-05 00:00:00 Completed [facility] HPV9 2019-08-05 00:00:00 Completed [facility] Influenza Virus Vaccine Quad .5 mL IM 6+ MO 2019-08-05 00:00:00 Completed [facility] HPV9 2019-08-05 00:00:00 Completed [facility] Influenza Virus Vaccine Quad .5 mL IM 6+ MO 2019-08-05 00:00:00 Completed [facility] HPV9 2019-08-05 00:00:00 Completed [facility] Influenza Virus Vaccine Quad .5 mL IM 6+ MO (FLUZONE/FLULAVAL/FL UARIX) 2019-08-05 00:00:00 Completed [facility] HPV9 2019-08-05 00:00:00 Completed [facility] Influenza Virus Vaccine Quad .5 mL IM 6+ MO (FLUZONE/FLULAVAL/FL UARIX) 2019-08-05 00:00:00 Completed [facility] HPV9 2019-08-05 00:00:00 Completed [facility] Influenza Virus Vaccine Quad .5 mL IM 6+ MO 2019-08-05 00:00:00 Completed [facility] HPV9 2019-08-05 00:00:00 Completed [facility] Influenza Virus Vaccine Quad .5 mL IM 6+ MO 2019-08-05 00:00:00 Completed [facility] HPV9 2019-08-05 00:00:00 Completed [facility] Influenza Virus Vaccine Quad .5 mL IM 6+ MO 2019-08-05 00:00:00 Completed [facility] HPV9 2019-08-05 00:00:00 Completed [facility] Influenza Virus Vaccine Quad .5 mL IM 6+ MO 2019-08-05 00:00:00 Completed [facility] HPV9 2019-08-05 00:00:00 Completed [facility] Influenza Virus Vaccine Quad .5 mL IM 6+ MO 2019-08-05 00:00:00 Completed [facility] HPV9 2019-08-05 00:00:00 Completed [facility] Influenza Virus Vaccine Quad .5 mL IM 6+ MO 2019-08-05 00:00:00 Completed [facility] HPV9 2019-08-05 00:00:00 Completed [facility] Influenza Virus Vaccine Quad .5 mL IM 6+ MO 2019-08-05 00:00:00 Completed [facility] HPV9 2019-08-05 00:00:00 Completed [facility] Influenza Virus Vaccine Quad .5 mL IM 6+ MO 2019-08-05 00:00:00 Completed [facility] HPV9 2019-08-05 00:00:00 Completed [facility] Influenza Virus Vaccine Quad .5 mL IM 6+ MO 2019-08-05 00:00:00 Completed [facility] HPV9 2019-08-05 00:00:00 Completed [facility] Influenza Virus Vaccine Quad .5 mL IM 6+ MO 2019-08-05 00:00:00 Completed [facility] HPV9 2019-08-05 00:00:00 Completed [facility] Influenza Virus Vaccine Quad .5 mL IM 6+ MO 2019-08-05 00:00:00 Completed [facility] HPV9 2019-08-05 00:00:00 Completed [facility] Influenza Virus Vaccine Quad .5 mL IM 6+ MO 2019-08-05 00:00:00 Completed [facility] HPV9 2019-08-05 00:00:00 Completed [facility] Influenza Virus Vaccine Quad .5 mL IM 6+ MO 2019-08-05 00:00:00 Completed [facility] HPV9 2019-08-05 00:00:00 Completed [facility] Influenza Virus Vaccine Quad .5 mL IM 6+ MO 2019-08-05 00:00:00 Completed [facility] TDAP 2018-05-08 00:00:00 Completed [facility] TDAP 2018-05-08 00:00:00 Completed [facility] TDAP 2018-05-08 00:00:00 Completed [facility] TDAP 2018-05-08 00:00:00 Completed [facility] TDAP 2018-05-08 00:00:00 Completed [facility] TDAP 2018-05-08 00:00:00 Completed [facility] TDAP 2018-05-08 00:00:00 Completed [facility] TDAP 2018-05-08 00:00:00 Completed [facility] TDAP 2018-05-08 00:00:00 Completed [facility] TDAP 2018-05-08 00:00:00 Completed [facility] TDAP 2018-05-08 00:00:00 Completed [facility] TDAP 2018-05-08 00:00:00 Completed [facility] TDAP 2018-05-08 00:00:00 Completed [facility] TDAP 2018-05-08 00:00:00 Completed [facility] TDAP 2018-05-08 00:00:00 Completed [facility] TDAP 2018-05-08 00:00:00 Completed [facility] TDAP 2018-05-08 00:00:00 Completed [facility] TDAP 2018-05-08 00:00:00 Completed [facility] TDAP 2018-05-08 00:00:00 Completed [facility] TDAP 2018-05-08 00:00:00 Completed [facility] TDAP 2018-05-08 00:00:00 Completed [facility] TDAP 2018-05-08 00:00:00 Completed [facility] TDAP 2018-05-08 00:00:00 Completed [facility] TDAP 2018-05-08 00:00:00 Completed [facility] TDAP 2018-05-08 00:00:00 Completed [facility] Varicella (varivax)(chicken pox) 2008-11-26 00:00:00 Completed [facility] Meningococcal Polysaccharide (groups A, C, Y and W-135) conjugate vaccine (MCV4P) 2008-11-26 00:00:00 Completed [facility] TDAP 2008-11-26 00:00:00 Completed [facility] Varicella (varivax)(chicken pox) 2008-11-26 00:00:00 Completed [facility] Meningococcal Polysaccharide (groups A, C, Y and W-135) conjugate vaccine (MCV4P) 2008-11-26 00:00:00 Completed [facility] TDAP 2008-11-26 00:00:00 Completed [facility] Varicella (varivax)(chicken pox) 2008-11-26 00:00:00 Completed [facility] Meningococcal Polysaccharide (groups A, C, Y and W-135) conjugate vaccine (MCV4P) 2008-11-26 00:00:00 Completed [facility] TDAP 2008-11-26 00:00:00 Completed [facility] Varicella (varivax)(chicken pox) 2008-11-26 00:00:00 Completed [facility] Meningococcal Polysaccharide (groups A, C, Y and W-135) conjugate vaccine (MCV4P) 2008-11-26 00:00:00 Completed [facility] TDAP 2008-11-26 00:00:00 Completed [facility] Varicella (varivax)(chicken pox) 2008-11-26 00:00:00 Completed [facility] Meningococcal Polysaccharide (groups A, C, Y and W-135) conjugate vaccine (MCV4P) 2008-11-26 00:00:00 Completed [facility] TDAP 2008-11-26 00:00:00 Completed [facility] Varicella (varivax)(chicken pox) 2008-11-26 00:00:00 Completed [facility] Meningococcal Polysaccharide (groups A, C, Y and W-135) conjugate vaccine (MCV4P) 2008-11-26 00:00:00 Completed [facility] TDAP 2008-11-26 00:00:00 Completed [facility] Varicella (varivax)(chicken pox) 2008-11-26 00:00:00 Completed [facility] Meningococcal Polysaccharide (groups A, C, Y and W-135) conjugate vaccine (MCV4P) 2008-11-26 [facility] [facility] Varicella (varivax)(chicken pox) 2008-11-26 00:00:00 Completed [facility] Meningococcal Polysaccharide (groups A, C, Y and W-135) conjugate vaccine (MCV4P) 2008-11-26 00:00:00 Completed [facility] TDAP 2008-11-26 00:00:00 Completed [facility] Varicella (varivax)(chicken pox) 2008-11-26 00:00:00 Completed [facility] Meningococcal Polysaccharide (groups A, C, Y and W-135) conjugate vaccine (MCV4P) 2008-11-26 00:00:00 Completed [facility] TDAP 2008-11-26 00:00:00 Completed [facility] Varicella (varivax)(chicken pox) 2008-11-26 00:00:00 Completed [facility] Meningococcal Polysaccharide (groups A, C, Y and W-135) conjugate vaccine (MCV4P) 2008-11-26 00:00:00 Completed [facility] TDAP 2008-11-26 00:00:00 Completed [facility] Varicella (varivax)(chicken pox) 2008-11-26 00:00:00 Completed [facility] Meningococcal Polysaccharide (groups A, C, Y and W-135) conjugate vaccine (MCV4P) 2008-11-26 00:00:00 Completed [facility] TDAP 2008-11-26 00:00:00 Completed [facility] Varicella (varivax)(chicken pox) 2008-11-26 00:00:00 Completed [facility] Meningococcal Polysaccharide (groups A, C, Y and W-135) conjugate vaccine (MCV4P) 2008-11-26 00:00:00 Completed [facility] TDAP 2008-11-26 00:00:00 Completed [facility] Varicella (varivax)(chicken pox) 2008-11-26 00:00:00 Completed [facility] Meningococcal Polysaccharide (groups A, C, Y and W-135) conjugate vaccine (MCV4P) 2008-11-26 00:00:00 Completed [facility] TDAP 2008-11-26 00:00:00 Completed [facility] Varicella (varivax)(chicken pox) 2008-11-26 00:00:00 Completed [facility] Meningococcal Polysaccharide (groups A, C, Y and W-135) conjugate vaccine (MCV4P) 2008-11-26 00:00:00 Completed [facility] TDAP 2008-11-26 00:00:00 Completed [facility] Varicella (varivax)(chicken pox) 2008-11-26 00:00:00 Completed [facility] Meningococcal Polysaccharide (groups A, C, Y and W-135) conjugate vaccine (MCV4P) 2008-11-26 00:00:00 Completed [facility] TDAP 2008-11-26 00:00:00 Completed [facility] Varicella (varivax)(chicken pox) 2008-11-26 00:00:00 Completed [facility] Meningococcal Polysaccharide (groups A, C, Y and W-135) conjugate vaccine (MCV4P) 2008-11-26 00:00:00 Completed [facility] TDAP 2008-11-26 00:00:00 Completed [facility] Varicella (varivax)(chicken pox) 2008-11-26 00:00:00 Completed [facility] Meningococcal Polysaccharide (groups A, C, Y and W-135) conjugate vaccine (MCV4P) 2008-11-26 00:00:00 Completed [facility] TDAP 2008-11-26 00:00:00 Completed [facility] Varicella (varivax)(chicken pox) 2008-11-26 00:00:00 Completed [facility] Meningococcal Polysaccharide (groups A, C, Y and W-135) conjugate vaccine (MCV4P) 2008-11-26 00:00:00 Completed [facility] TDAP 2008-11-26 00:00:00 Completed [facility] Varicella (varivax)(chicken pox) 2008-11-26 00:00:00 Completed [facility] Meningococcal Polysaccharide (groups A, C, Y and W-135) conjugate vaccine (MCV4P) 2008-11-26 00:00:00 Completed [facility] TDAP 2008-11-26 00:00:00 Completed [facility] Varicella (varivax)(chicken pox) 2008-11-26 00:00:00 Completed [facility] Meningococcal Polysaccharide (groups A, C, Y and W-135) conjugate vaccine (MCV4P) 2008-11-26 00:00:00 Completed [facility] TDAP 2008-11-26 00:00:00 Completed [facility] Varicella (varivax)(chicken pox) 2008-11-26 00:00:00 Completed [facility] Meningococcal Polysaccharide (groups A, C, Y and W-135) conjugate vaccine (MCV4P) 2008-11-26 00:00:00 Completed [facility] TDAP 2008-11-26 00:00:00 Completed [facility] Varicella (varivax)(chicken pox) 2008-11-26 00:00:00 Completed [facility] Meningococcal Polysaccharide (groups A, C, Y and W-135) conjugate vaccine (MCV4P) 2008-11-26 00:00:00 Completed [facility] TDAP 2008-11-26 00:00:00 Completed [facility] MMR 2001-02-04 00:00:00 Completed [facility] IPV 2001-02-04 00:00:00 Completed [facility] DTaP, Unspecified Formulation 2001-02-04 00:00:00 Completed [facility] MMR 2001-02-04 00:00:00 Completed [facility] IPV 2001-02-04 00:00:00 Completed [facility] DTaP, Unspecified Formulation 2001-02-04 00:00:00 Completed [facility] MMR 2001-02-04 00:00:00 Completed [facility] IPV 2001-02-04 00:00:00 Completed [facility] DTaP, Unspecified Formulation 2001-02-04 00:00:00 Completed [facility] MMR 2001-02-04 00:00:00 Completed [facility] IPV 2001-02-04 00:00:00 Completed [facility] DTaP, Unspecified Formulation 2001-02-04 00:00:00 Completed [facility] MMR 2001-02-04 00:00:00 Completed [facility] IPV 2001-02-04 00:00:00 Completed [facility] DTaP, Unspecified Formulation 2001-02-04 00:00:00 Completed [facility] MMR 2001-02-04 00:00:00 Completed [facility] IPV 2001-02-04 00:00:00 Completed [facility] DTaP, Unspecified Formulation 2001-02-04 00:00:00 Completed [facility] MMR 2001-02-04 00:00:00 Completed [facility] IPV 2001-02-04 00:00:00 Completed [facility] DTaP, Unspecified Formulation 2001-02-04 00:00:00 Completed [facility] MMR 2001-02-04 00:00:00 Completed [facility] IPV 2001-02-04 00:00:00 Completed [facility] DTaP, Unspecified Formulation 2001-02-04 00:00:00 Completed [facility] MMR 2001-02-04 00:00:00 Completed [facility] IPV 2001-02-04 00:00:00 Completed [facility] DTaP, Unspecified Formulation 2001-02-04 00:00:00 Completed [facility] MMR 2001-02-04 00:00:00 Completed [facility] IPV 2001-02-04 00:00:00 Completed [facility] DTaP, Unspecified Formulation 2001-02-04 00:00:00 Completed [facility] MMR 2001-02-04 00:00:00 Completed [facility] IPV 2001-02-04 00:00:00 Completed [facility] DTaP, Unspecified Formulation 2001-02-04 00:00:00 Completed [facility] MMR 2001-02-04 00:00:00 Completed [facility] IPV 2001-02-04 00:00:00 Completed [facility] DTaP, Unspecified Formulation 2001-02-04 00:00:00 Completed [facility] MMR 2001-02-04 00:00:00 Completed [facility] IPV 2001-02-04 00:00:00 Completed [facility] DTaP, Unspecified Formulation 2001-02-04 00:00:00 Completed [facility] MMR 2001-02-04 00:00:00 Completed [facility] IPV 2001-02-04 00:00:00 Completed [facility] DTaP, Unspecified Formulation 2001-02-04 00:00:00 Completed [facility] MMR 2001-02-04 00:00:00 Completed [facility] IPV 2001-02-04 00:00:00 Completed [facility] DTaP, Unspecified Formulation 2001-02-04 00:00:00 Completed [facility] MMR 2001-02-04 00:00:00 Completed [facility] IPV 2001-02-04 00:00:00 Completed [facility] DTaP, Unspecified Formulation 2001-02-04 00:00:00 Completed [facility] MMR 2001-02-04 00:00:00 Completed [facility] IPV 2001-02-04 00:00:00 Completed [facility] DTaP, Unspecified Formulation 2001-02-04 00:00:00 Completed [facility] MMR 2001-02-04 00:00:00 Completed [facility] IPV 2001-02-04 00:00:00 Completed [facility] DTaP, Unspecified Formulation 2001-02-04 00:00:00 Completed [facility] MMR 2001-02-04 00:00:00 Completed [facility] IPV 2001-02-04 00:00:00 Completed [facility] DTaP, Unspecified Formulation 2001-02-04 00:00:00 Completed [facility] MMR 2001-02-04 00:00:00 Completed [facility] IPV 2001-02-04 00:00:00 Completed [facility] DTaP, Unspecified Formulation 2001-02-04 00:00:00 Completed [facility] MMR 2001-02-04 00:00:00 Completed [facility] IPV 2001-02-04 00:00:00 Completed [facility] DTaP, Unspecified Formulation 2001-02-04 00:00:00 Completed [facility] MMR 2001-02-04 00:00:00 Completed [facility] IPV 2001-02-04 00:00:00 Completed [facility] DTaP, Unspecified Formulation 2001-02-04 00:00:00 Completed [facility] MMR 1998-07-29 00:00:00 Completed [facility] DPT/HIB 1998-07-29 00:00:00 Completed [facility] MMR 1998-07-29 00:00:00 Completed [facility] DPT/HIB 1998-07-29 00:00:00 Completed [facility] MMR 1998-07-29 00:00:00 Completed [facility] DPT/HIB 1998-07-29 00:00:00 Completed [facility] MMR 1998-07-29 00:00:00 Completed [facility] DPT/HIB 1998-07-29 00:00:00 Completed [facility] MMR 1998-07-29 00:00:00 Completed [facility] DPT/HIB 1998-07-29 00:00:00 Completed [facility] MMR 1998-07-29 00:00:00 Completed [facility] DPT/HIB 1998-07-29 00:00:00 Completed [facility] MMR 1998-07-29 00:00:00 Completed [facility] DPT/HIB 1998-07-29 00:00:00 Completed [facility] MMR 1998-07-29 00:00:00 Completed [facility] DPT/HIB 1998-07-29 00:00:00 Completed [facility] MMR 1998-07-29 00:00:00 Completed [facility] DPT/HIB 1998-07-29 00:00:00 Completed [facility] MMR 1998-07-29 00:00:00 Completed [facility] DPT/HIB 1998-07-29 00:00:00 Completed [facility] MMR 1998-07-29 00:00:00 Completed [facility] DPT/HIB 1998-07-29 00:00:00 Completed [facility] MMR 1998-07-29 00:00:00 Completed [facility] DPT/HIB 1998-07-29 00:00:00 Completed [facility] MMR 1998-07-29 00:00:00 Completed [facility] DPT/HIB 1998-07-29 00:00:00 Completed [facility] MMR 1998-07-29 00:00:00 Completed [facility] DPT/HIB 1998-07-29 00:00:00 Completed [facility] MMR 1998-07-29 00:00:00 Completed [facility] DPT/HIB 1998-07-29 00:00:00 Completed [facility] MMR 1998-07-29 00:00:00 Completed [facility] DPT/HIB 1998-07-29 00:00:00 Completed [facility] MMR 1998-07-29 00:00:00 Completed [facility] DPT/HIB 1998-07-29 00:00:00 Completed [facility] MMR 1998-07-29 00:00:00 Completed [facility] DPT/HIB 1998-07-29 00:00:00 Completed [facility] MMR 1998-07-29 00:00:00 Completed [facility] DPT/HIB 1998-07-29 00:00:00 Completed [facility] MMR 1998-07-29 00:00:00 Completed [facility] DPT/HIB 1998-07-29 00:00:00 Completed [facility] MMR 1998-07-29 00:00:00 Completed [facility] DPT/HIB 1998-07-29 00:00:00 Completed [facility] MMR 1998-07-29 00:00:00 Completed [facility] DPT/HIB 1998-07-29 00:00:00 Completed [facility] Poliovirus, Live, Oral, Trivalent 1998-02-04 00:00:00 Completed [facility] Varicella (varivax)(chicken pox) 1998-02-04 00:00:00 Completed [facility] Poliovirus, Live, Oral, Trivalent 1998-02-04 00:00:00 Completed [facility] Varicella (varivax)(chicken pox) 1998-02-04 00:00:00 Completed [facility] Poliovirus, Live, Oral, Trivalent 1998-02-04 00:00:00 Completed [facility] Varicella (varivax)(chicken pox) 1998-02-04 00:00:00 Completed [facility] Poliovirus, Live, Oral, Trivalent 1998-02-04 00:00:00 Completed [facility] Varicella (varivax)(chicken pox) 1998-02-04 00:00:00 Completed [facility] Poliovirus, Live, Oral, Trivalent 1998-02-04 00:00:00 Completed [facility] Varicella (varivax)(chicken pox) 1998-02-04 00:00:00 Completed [facility] Poliovirus, Live, Oral, Trivalent 1998-02-04 00:00:00 Completed [facility] Varicella (varivax)(chicken pox) 1998-02-04 00:00:00 Completed [facility] Poliovirus, Live, Oral, Trivalent 1998-02-04 00:00:00 Completed [facility] Varicella (varivax)(chicken pox) 1998-02-04 00:00:00 Completed [facility] Poliovirus, Live, Oral, Trivalent 1998-02-04 00:00:00 Completed [facility] Varicella (varivax)(chicken pox) 1998-02-04 00:00:00 Completed [facility] Poliovirus, Live, Oral, Trivalent 1998-02-04 00:00:00 Completed [facility] Varicella (varivax)(chicken pox) 1998-02-04 00:00:00 Completed [facility] Poliovirus, Live, Oral, Trivalent 1998-02-04 00:00:00 Completed [facility] Varicella (varivax)(chicken pox) 1998-02-04 00:00:00 Completed [facility] Poliovirus, Live, Oral, Trivalent 1998-02-04 00:00:00 Completed [facility] Varicella (varivax)(chicken pox) 1998-02-04 00:00:00 Completed [facility] Poliovirus, Live, Oral, Trivalent 1998-02-04 00:00:00 Completed [facility] Varicella (varivax)(chicken pox) 1998-02-04 00:00:00 Completed [facility] Poliovirus, Live, Oral, Trivalent 1998-02-04 00:00:00 Completed [facility] Varicella (varivax)(chicken pox) 1998-02-04 00:00:00 Completed [facility] Poliovirus, Live, Oral, Trivalent 1998-02-04 00:00:00 Completed [facility] Varicella (varivax)(chicken pox) 1998-02-04 00:00:00 Completed [facility] Poliovirus, Live, Oral, Trivalent 1998-02-04 00:00:00 Completed [facility] Varicella (varivax)(chicken pox) 1998-02-04 00:00:00 Completed [facility] Poliovirus, Live, Oral, Trivalent 1998-02-04 00:00:00 Completed [facility] Varicella (varivax)(chicken pox) 1998-02-04 00:00:00 Completed [facility] Poliovirus, Live, Oral, Trivalent 1998-02-04 00:00:00 Completed [facility] Varicella (varivax)(chicken pox) 1998-02-04 00:00:00 Completed [facility] Poliovirus, Live, Oral, Trivalent 1998-02-04 00:00:00 Completed [facility] Varicella (varivax)(chicken pox) 1998-02-04 00:00:00 Completed [facility] Poliovirus, Live, Oral, Trivalent 1998-02-04 00:00:00 Completed [facility] Varicella (varivax)(chicken pox) 1998-02-04 00:00:00 Completed [facility] Poliovirus, Live, Oral, Trivalent 1998-02-04 00:00:00 Completed [facility] Varicella (varivax)(chicken pox) 1998-02-04 00:00:00 Completed [facility] Poliovirus, Live, Oral, Trivalent 1998-02-04 00:00:00 Completed [facility] Varicella (varivax)(chicken pox) 1998-02-04 00:00:00 Completed [facility] Poliovirus, Live, Oral, Trivalent 1998-02-04 00:00:00 Completed [facility] Varicella (varivax)(chicken pox) 1998-02-04 00:00:00 Completed [facility] Hep B, Adol or Pedi Dosage 1997-10-28 00:00:00 Completed [facility] Hep B, Adol or Pedi Dosage 1997-10-28 00:00:00 Completed [facility] Hep B, Adol or Pedi Dosage 1997-10-28 00:00:00 Completed [facility] Hep B, Adol or Pedi Dosage 1997-10-28 00:00:00 Completed [facility] Hep B, Adol or Pedi Dosage 1997-10-28 00:00:00 Completed [facility] Hep B, Adol or Pedi Dosage 1997-10-28 00:00:00 Completed [facility] Hep B, Adol or Pedi Dosage 1997-10-28 00:00:00 Completed [facility] Hep B, Adol or Pedi Dosage 1997-10-28 00:00:00 Completed [facility] Hep B, Adol or Pedi Dosage 1997-10-28 00:00:00 Completed [facility] Hep B, Adol or Pedi Dosage 1997-10-28 00:00:00 Completed [facility] Hep B, Adol or Pedi Dosage 1997-10-28 00:00:00 Completed [facility] Hep B, Adol or Pedi Dosage 1997-10-28 00:00:00 Completed [facility] Hep B, Adol or Pedi Dosage 1997-10-28 00:00:00 Completed [facility] Hep B, Adol or Pedi Dosage 1997-10-28 00:00:00 Completed [facility] Hep B, Adol or Pedi Dosage 1997-10-28 00:00:00 Completed [facility] Hep B, Adol or Pedi Dosage 1997-10-28 00:00:00 Completed [facility] Hep B, Adol or Pedi Dosage 1997-10-28 00:00:00 Completed [facility] Hep B, Adol or Pedi Dosage 1997-10-28 00:00:00 Completed [facility] Hep B, Adol or Pedi Dosage 1997-10-28 00:00:00 Completed [facility] Hep B, Adol or Pedi Dosage 1997-10-28 00:00:00 Completed [facility] Hep B, Adol or Pedi Dosage 1997-10-28 00:00:00 Completed [facility] Hep B, Adol or Pedi Dosage 1997-10-28 00:00:00 Completed [facility] DTaP, Unspecified Formulation 1997-06-29 00:00:00 Completed [facility] Hib-HbOC 1997-06-29 00:00:00 Completed [facility] DTaP, Unspecified Formulation 1997-06-29 00:00:00 Completed [facility] Hib-HbOC 1997-06-29 00:00:00 Completed [facility] DTaP, Unspecified Formulation 1997-06-29 00:00:00 Completed [facility] Hib-HbOC 1997-06-29 00:00:00 Completed [facility] DTaP, Unspecified Formulation 1997-06-29 00:00:00 Completed [facility] Hib-HbOC 1997-06-29 00:00:00 Completed [facility] DTaP, Unspecified Formulation 1997-06-29 00:00:00 Completed [facility] Hib-HbOC 1997-06-29 00:00:00 Completed [facility] DTaP, Unspecified Formulation 1997-06-29 00:00:00 Completed [facility] Hib-HbOC 1997-06-29 00:00:00 Completed [facility] DTaP, Unspecified Formulation 1997-06-29 00:00:00 Completed [facility] Hib-HbOC 1997-06-29 00:00:00 Completed [facility] DTaP, Unspecified Formulation 1997-06-29 00:00:00 Completed [facility] Hib-HbOC 1997-06-29 00:00:00 Completed [facility] DTaP, Unspecified Formulation 1997-06-29 00:00:00 Completed [facility] Hib-HbOC 1997-06-29 00:00:00 Completed [facility] DTaP, Unspecified Formulation 1997-06-29 00:00:00 Completed [facility] Hib-HbOC 1997-06-29 00:00:00 Completed [facility] DTaP, Unspecified Formulation 1997-06-29 00:00:00 Completed [facility] Hib-HbOC 1997-06-29 00:00:00 Completed [facility] DTaP, Unspecified Formulation 1997-06-29 00:00:00 Completed [facility] Hib-HbOC 1997-06-29 00:00:00 Completed [facility] DTaP, Unspecified Formulation 1997-06-29 00:00:00 Completed [facility] Hib-HbOC 1997-06-29 00:00:00 Completed [facility] DTaP, Unspecified Formulation 1997-06-29 00:00:00 Completed [facility] Hib-HbOC 1997-06-29 00:00:00 Completed [facility] DTaP, Unspecified Formulation 1997-06-29 00:00:00 Completed [facility] Hib-HbOC 1997-06-29 00:00:00 Completed [facility] DTaP, Unspecified Formulation 1997-06-29 00:00:00 Completed [facility] Hib-HbOC 1997-06-29 00:00:00 Completed [facility] DTaP, Unspecified Formulation 1997-06-29 00:00:00 Completed [facility] Hib-HbOC 1997-06-29 00:00:00 Completed [facility] DTaP, Unspecified Formulation 1997-06-29 00:00:00 Completed [facility] Hib-HbOC 1997-06-29 00:00:00 Completed [facility] DTaP, Unspecified Formulation 1997-06-29 00:00:00 Completed [facility] Hib-HbOC 1997-06-29 00:00:00 Completed [facility] DTaP, Unspecified Formulation 1997-06-29 00:00:00 Completed [facility] Hib-HbOC 1997-06-29 00:00:00 Completed [facility] DTaP, Unspecified Formulation 1997-06-29 00:00:00 Completed [facility] Hib-HbOC 1997-06-29 00:00:00 Completed [facility] DTaP, Unspecified Formulation 1997-06-29 00:00:00 Completed [facility] Hib-HbOC 1997-06-29 00:00:00 Completed [facility] Hib-HbOC 1997-04-19 00:00:00 Completed [facility] IPV 1997-04-19 00:00:00 Completed [facility] DTaP, Unspecified Formulation 1997-04-19 00:00:00 Completed [facility] Hib-HbOC 1997-04-19 00:00:00 Completed [facility] IPV 1997-04-19 00:00:00 Completed [facility] DTaP, Unspecified Formulation 1997-04-19 00:00:00 Completed [facility] Hib-HbOC 1997-04-19 00:00:00 Completed [facility] IPV 1997-04-19 00:00:00 Completed [facility] DTaP, Unspecified Formulation 1997-04-19 00:00:00 Completed [facility] Hib-HbOC 1997-04-19 00:00:00 Completed [facility] IPV 1997-04-19 00:00:00 Completed [facility] DTaP, Unspecified Formulation 1997-04-19 00:00:00 Completed [facility] Hib-HbOC 1997-04-19 00:00:00 Completed [facility] IPV 1997-04-19 00:00:00 Completed [facility] DTaP, Unspecified Formulation 1997-04-19 00:00:00 Completed [facility] Hib-HbOC 1997-04-19 00:00:00 Completed [facility] IPV 1997-04-19 00:00:00 Completed [facility] DTaP, Unspecified Formulation 1997-04-19 00:00:00 Completed [facility] Hib-HbOC 1997-04-19 00:00:00 Completed [facility] IPV 1997-04-19 00:00:00 Completed [facility] DTaP, Unspecified Formulation 1997-04-19 00:00:00 Completed [facility] Hib-HbOC 1997-04-19 00:00:00 Completed [facility] IPV 1997-04-19 00:00:00 Completed [facility] DTaP, Unspecified Formulation 1997-04-19 00:00:00 Completed [facility] Hib-HbOC 1997-04-19 00:00:00 Completed [facility] IPV 1997-04-19 00:00:00 Completed [facility] DTaP, Unspecified Formulation 1997-04-19 00:00:00 Completed [facility] Hib-HbOC 1997-04-19 00:00:00 Completed [facility] IPV 1997-04-19 00:00:00 Completed [facility] DTaP, Unspecified Formulation 1997-04-19 00:00:00 Completed [facility] Hib-HbOC 1997-04-19 00:00:00 Completed [facility] IPV 1997-04-19 00:00:00 Completed [facility] DTaP, Unspecified Formulation 1997-04-19 00:00:00 Completed [facility] Hib-HbOC 1997-04-19 00:00:00 Completed [facility] IPV 1997-04-19 00:00:00 Completed [facility] DTaP, Unspecified Formulation 1997-04-19 00:00:00 Completed [facility] Hib-HbOC 1997-04-19 00:00:00 Completed [facility] IPV 1997-04-19 00:00:00 Completed [facility] DTaP, Unspecified Formulation 1997-04-19 00:00:00 Completed [facility] Hib-HbOC 1997-04-19 00:00:00 Completed [facility] IPV 1997-04-19 00:00:00 Completed [facility] DTaP, Unspecified Formulation 1997-04-19 00:00:00 Completed [facility] Hib-HbOC 1997-04-19 00:00:00 Completed [facility] IPV 1997-04-19 00:00:00 Completed [facility] DTaP, Unspecified Formulation 1997-04-19 00:00:00 Completed [facility] Hib-HbOC 1997-04-19 00:00:00 Completed [facility] IPV 1997-04-19 00:00:00 Completed [facility] DTaP, Unspecified Formulation 1997-04-19 00:00:00 Completed [facility] Hib-HbOC 1997-04-19 00:00:00 Completed [facility] IPV 1997-04-19 00:00:00 Completed [facility] DTaP, Unspecified Formulation 1997-04-19 00:00:00 Completed [facility] Hib-HbOC 1997-04-19 00:00:00 Completed [facility] IPV 1997-04-19 00:00:00 Completed [facility] DTaP, Unspecified Formulation 1997-04-19 00:00:00 Completed [facility] Hib-HbOC 1997-04-19 00:00:00 Completed [facility] IPV 1997-04-19 00:00:00 Completed [facility] DTaP, Unspecified Formulation 1997-04-19 00:00:00 Completed [facility] Hib-HbOC 1997-04-19 00:00:00 Completed [facility] IPV 1997-04-19 00:00:00 Completed [facility] DTaP, Unspecified Formulation 1997-04-19 00:00:00 Completed [facility] Hib-HbOC 1997-04-19 00:00:00 Completed [facility] IPV 1997-04-19 00:00:00 Completed [facility] DTaP, Unspecified Formulation 1997-04-19 00:00:00 Completed [facility] Hib-HbOC 1997-04-19 00:00:00 Completed [facility] IPV 1997-04-19 00:00:00 Completed [facility] DTaP, Unspecified Formulation 1997-04-19 00:00:00 Completed [facility] Hib-HbOC 1997-02-10 00:00:00 Completed [facility] IPV 1997-02-10 00:00:00 Completed [facility] DTaP, Unspecified Formulation 1997-02-10 00:00:00 Completed [facility] Hib-HbOC 1997-02-10 00:00:00 Completed [facility] IPV 1997-02-10 00:00:00 Completed [facility] DTaP, Unspecified Formulation 1997-02-10 00:00:00 Completed [facility] Hib-HbOC 1997-02-10 00:00:00 Completed [facility] IPV 1997-02-10 00:00:00 Completed [facility] DTaP, Unspecified Formulation 1997-02-10 00:00:00 Completed [facility] Hib-HbOC 1997-02-10 00:00:00 Completed [facility] IPV 1997-02-10 00:00:00 Completed [facility] DTaP, Unspecified Formulation 1997-02-10 00:00:00 Completed [facility] Hib-HbOC 1997-02-10 00:00:00 Completed [facility] IPV 1997-02-10 00:00:00 Completed [facility] DTaP, Unspecified Formulation 1997-02-10 00:00:00 Completed [facility] Hib-HbOC 1997-02-10 00:00:00 Completed [facility] IPV 1997-02-10 00:00:00 Completed [facility] DTaP, Unspecified Formulation 1997-02-10 00:00:00 Completed [facility] Hib-HbOC 1997-02-10 00:00:00 Completed [facility] IPV 1997-02-10 00:00:00 Completed [facility] DTaP, Unspecified Formulation 1997-02-10 00:00:00 Completed [facility] Hib-HbOC 1997-02-10 00:00:00 Completed [facility] IPV 1997-02-10 00:00:00 Completed [facility] DTaP, Unspecified Formulation 1997-02-10 00:00:00 Completed [facility] Hib-HbOC 1997-02-10 00:00:00 Completed [facility] IPV 1997-02-10 00:00:00 Completed [facility] DTaP, Unspecified Formulation 1997-02-10 00:00:00 Completed [facility] Hib-HbOC 1997-02-10 00:00:00 Completed [facility] IPV 1997-02-10 00:00:00 Completed [facility] DTaP, Unspecified Formulation 1997-02-10 00:00:00 Completed [facility] Hib-HbOC 1997-02-10 00:00:00 Completed [facility] IPV 1997-02-10 00:00:00 Completed [facility] DTaP, Unspecified Formulation 1997-02-10 00:00:00 Completed [facility] Hib-HbOC 1997-02-10 00:00:00 Completed [facility] IPV 1997-02-10 00:00:00 Completed [facility] DTaP, Unspecified Formulation 1997-02-10 00:00:00 Completed [facility] Hib-HbOC 1997-02-10 00:00:00 Completed [facility] IPV 1997-02-10 00:00:00 Completed [facility] DTaP, Unspecified Formulation 1997-02-10 00:00:00 Completed [facility] Hib-HbOC 1997-02-10 00:00:00 Completed [facility] IPV 1997-02-10 00:00:00 Completed [facility] DTaP, Unspecified Formulation 1997-02-10 00:00:00 Completed [facility] Hib-HbOC 1997-02-10 00:00:00 Completed [facility] IPV 1997-02-10 00:00:00 Completed [facility] DTaP, Unspecified Formulation 1997-02-10 00:00:00 Completed [facility] Hib-HbOC 1997-02-10 00:00:00 Completed [facility] IPV 1997-02-10 00:00:00 Completed [facility] DTaP, Unspecified Formulation 1997-02-10 00:00:00 Completed [facility] Hib-HbOC 1997-02-10 00:00:00 Completed [facility] IPV 1997-02-10 00:00:00 Completed [facility] DTaP, Unspecified Formulation 1997-02-10 00:00:00 Completed [facility] Hib-HbOC 1997-02-10 00:00:00 Completed [facility] IPV 1997-02-10 00:00:00 Completed [facility] DTaP, Unspecified Formulation 1997-02-10 00:00:00 Completed [facility] Hib-HbOC 1997-02-10 00:00:00 Completed [facility] IPV 1997-02-10 00:00:00 Completed [facility] DTaP, Unspecified Formulation 1997-02-10 00:00:00 Completed [facility] Hib-HbOC 1997-02-10 00:00:00 Completed [facility] IPV 1997-02-10 00:00:00 Completed [facility] DTaP, Unspecified Formulation 1997-02-10 00:00:00 Completed [facility] Hib-HbOC 1997-02-10 00:00:00 Completed [facility] IPV 1997-02-10 00:00:00 Completed [facility] DTaP, Unspecified Formulation 1997-02-10 00:00:00 Completed [facility] Hib-HbOC 1997-02-10 00:00:00 Completed [facility] IPV 1997-02-10 00:00:00 Completed [facility] DTaP, Unspecified Formulation 1997-02-10 00:00:00 Completed [facility] Hep B, Adol or Pedi Dosage 1997-01-19 00:00:00 Completed [facility] Hep B, Adol or Pedi Dosage 1997-01-19 00:00:00 Completed [facility] Hep B, Adol or Pedi Dosage 1997-01-19 00:00:00 Completed [facility] Hep B, Adol or Pedi Dosage 1997-01-19 00:00:00 Completed [facility] Hep B, Adol or Pedi Dosage 1997-01-19 00:00:00 Completed [facility] Hep B, Adol or Pedi Dosage 1997-01-19 00:00:00 Completed [facility] Hep B, Adol or Pedi Dosage 1997-01-19 00:00:00 Completed [facility] Hep B, Adol or Pedi Dosage 1997-01-19 00:00:00 Completed [facility] Hep B, Adol or Pedi Dosage 1997-01-19 00:00:00 Completed [facility] Hep B, Adol or Pedi Dosage 1997-01-19 00:00:00 Completed [facility] Hep B, Adol or Pedi Dosage 1997-01-19 00:00:00 Completed [facility] Hep B, Adol or Pedi Dosage 1997-01-19 00:00:00 Completed [facility] Hep B, Adol or Pedi Dosage 1997-01-19 00:00:00 Completed [facility] Hep B, Adol or Pedi Dosage 1997-01-19 00:00:00 Completed [facility] Hep B, Adol or Pedi Dosage 1997-01-19 00:00:00 Completed [facility] Hep B, Adol or Pedi Dosage 1997-01-19 00:00:00 Completed [facility] Hep B, Adol or Pedi Dosage 1997-01-19 00:00:00 Completed [facility] Hep B, Adol or Pedi Dosage 1997-01-19 00:00:00 Completed [facility] Hep B, Adol or Pedi Dosage 1997-01-19 00:00:00 Completed [facility] Hep B, Adol or Pedi Dosage 1997-01-19 00:00:00 Completed [facility] Hep B, Adol or Pedi Dosage 1997-01-19 00:00:00 Completed [facility] Hep B, Adol or Pedi Dosage 1997-01-19 00:00:00 Completed [facility] Hep B, Adol or Pedi Dosage 1996 00:00:00 Completed [facility] Hep B, Adol or Pedi Dosage 1996 00:00:00 Completed [facility] Hep B, Adol or Pedi Dosage 1996 00:00:00 Completed [facility] Hep B, Adol or Pedi Dosage 1996 00:00:00 Completed [facility] Hep B, Adol or Pedi Dosage 1996 00:00:00 Completed [facility] Hep B, Adol or Pedi Dosage 1996 00:00:00 Completed [facility] Hep B, Adol or Pedi Dosage 1996 00:00:00 Completed [facility] Hep B, Adol or Pedi Dosage 1996 00:00:00 Completed [facility] Hep B, Adol or Pedi Dosage 1996 00:00:00 Completed [facility] Hep B, Adol or Pedi Dosage 1996 00:00:00 Completed [facility] Hep B, Adol or Pedi Dosage 1996 00:00:00 Completed [facility] Hep B, Adol or Pedi Dosage 1996 00:00:00 Completed [facility] Hep B, Adol or Pedi Dosage 1996 00:00:00 Completed [facility] Hep B, Adol or Pedi Dosage 1996 00:00:00 Completed [facility] Hep B, Adol or Pedi Dosage 1996 00:00:00 Completed [facility] Hep B, Adol or Pedi Dosage 1996 00:00:00 Completed [facility] Hep B, Adol or Pedi Dosage 1996 00:00:00 Completed [facility] Hep B, Adol or Pedi Dosage 1996 00:00:00 Completed [facility] Hep B, Adol or Pedi Dosage 1996 00:00:00 Completed [facility] Hep B, Adol or Pedi Dosage 1996 00:00:00 Completed [facility] Hep B, Adol or Pedi Dosage 1996 00:00:00 Completed [facility] Hep B, Adol or Pedi Dosage 1996 00:00:00 Completed [facility] TDAP Unknown Completed [facility] HPV9 Unknown Completed [facility] Influenza Virus Vaccine Quad .5 mL IM 6+ MO (FLUZONE/FLULAVAL/FL UARIX) Unknown Completed [facility] DTaP, Unspecified Formulation Unknown Completed [facility] DPT/HIB Unknown Completed [facility] Hep B, Adol or Pedi Dosage Unknown Completed [facility] Hib-HbOC Unknown Completed [facility] Meningococcal Polysaccharide (groups A, C, Y and W-135) conjugate vaccine (MCV4P) Unknown Completed [facility] MMR Unknown Completed [facility] IPV Unknown Completed [facility] Poliovirus, Live, Oral, Trivalent Unknown Completed [facility] Varicella (varivax)(chicken pox) Unknown Completed [facility] TDAP Unknown Completed [facility] HPV9 Unknown Completed [facility] Influenza Virus Vaccine Quad .5 mL IM 6+ MO (FLUZONE/FLULAVAL/FL UARIX) Unknown Completed [facility] DTaP, Unspecified Formulation Unknown Completed [facility] DPT/HIB Unknown Completed [facility] Hep B, Adol or Pedi Dosage Unknown Completed [facility] Hib-HbOC Unknown Completed [facility] Meningococcal Polysaccharide (groups A, C, Y and W-135) conjugate vaccine (MCV4P) Unknown Completed [facility] MMR Unknown Completed [facility] IPV Unknown Completed [facility] Poliovirus, Live, Oral, Trivalent Unknown Completed [facility] Varicella (varivax)(chicken pox) Unknown Completed [facility] TDAP Unknown Completed [facility] HPV9 Unknown Completed [facility] Influenza Virus Vaccine Quad .5 mL IM 6+ MO (FLUZONE/FLULAVAL/FL UARIX) Unknown Completed [facility] DTaP, Unspecified Formulation Unknown Completed [facility] DPT/HIB Unknown Completed [facility] Hep B, Adol or Pedi Dosage Unknown Completed [facility] Hib-HbOC Unknown Completed [facility] Meningococcal Polysaccharide (groups A, C, Y and W-135) conjugate vaccine (MCV4P) Unknown Completed [facility] MMR Unknown Completed [facility] IPV Unknown Completed [facility] Poliovirus, Live, Oral, Trivalent Unknown Completed [facility] Varicella (varivax)(chicken pox) Unknown Completed [facility] TDAP Unknown Completed [facility] HPV9 Unknown Completed [facility] Influenza Virus Vaccine Quad .5 mL IM 6+ MO (FLUZONE/FLULAVAL/FL UARIX) Unknown Completed [facility] DTaP, Unspecified Formulation Unknown Completed [facility] DPT/HIB Unknown Completed [facility] Hep B, Adol or Pedi Dosage Unknown Completed [facility] Hib-HbOC Unknown Completed [facility] Meningococcal Polysaccharide (groups A, C, Y and W-135) conjugate vaccine (MCV4P) Unknown Completed [facility] MMR Unknown Completed [facility] IPV Unknown Completed [facility] Poliovirus, Live, Oral, Trivalent Unknown Completed [facility] Varicella (varivax)(chicken pox) Unknown Completed [facility] TDAP Unknown Completed [facility] HPV9 Unknown Completed [facility] Influenza Virus Vaccine Quad .5 mL IM 6+ MO (FLUZONE/FLULAVAL/FL UARIX) Unknown Completed [facility] DTaP, Unspecified Formulation Unknown Completed [facility] DPT/HIB Unknown Completed [facility] Hep B, Adol or Pedi Dosage Unknown Completed [facility] Hib-HbOC Unknown Completed [facility] Meningococcal Polysaccharide (groups A, C, Y and W-135) conjugate vaccine (MCV4P) Unknown Completed [facility] MMR Unknown Completed [facility] IPV Unknown Completed [facility] Poliovirus, Live, Oral, Trivalent Unknown Completed [facility] Varicella (varivax)(chicken pox) Unknown Completed [facility] TDAP Unknown Completed [facility] HPV9 Unknown Completed [facility] Influenza Virus Vaccine Quad .5 mL IM 6+ MO (FLUZONE/FLULAVAL/FL UARIX) Unknown Completed [facility] DTaP, Unspecified Formulation Unknown Completed [facility] DPT/HIB Unknown Completed [facility] Hep B, Adol or Pedi Dosage Unknown Completed [facility] Hib-HbOC Unknown Completed [facility] Meningococcal Polysaccharide (groups A, C, Y and W-135) conjugate vaccine (MCV4P) Unknown Completed [facility] MMR Unknown Completed [facility] IPV Unknown Completed [facility] Poliovirus, Live, Oral, Trivalent Unknown Completed [facility] Varicella (varivax)(chicken pox) Unknown Completed [facility] TDAP Unknown Completed [facility] HPV9 Unknown Completed [facility] Influenza Virus Vaccine Quad .5 mL IM 6+ MO (FLUZONE/FLULAVAL/FL UARIX) Unknown Completed [facility] DTaP, Unspecified Formulation Unknown Completed [facility] DPT/HIB Unknown Completed [facility] Hep B, Adol or Pedi Dosage Unknown Completed [facility] Hib-HbOC Unknown Completed [facility] Meningococcal Polysaccharide (groups A, C, Y and W-135) conjugate vaccine (MCV4P) Unknown Completed [facility] MMR Unknown Completed [facility] IPV Unknown Completed [facility] Poliovirus, Live, Oral, Trivalent Unknown Completed [facility] Varicella (varivax)(chicken pox) Unknown Completed [facility] TDAP Unknown Completed [facility] HPV9 Unknown Completed [facility] Influenza Virus Vaccine Quad .5 mL IM 6+ MO (FLUZONE/FLULAVAL/FL UARIX) Unknown Completed [facility] DTaP, Unspecified Formulation Unknown Completed [facility] DPT/HIB Unknown Completed [facility] Hep B, Adol or Pedi Dosage Unknown Completed [facility] Hib-HbOC Unknown Completed [facility] Meningococcal Polysaccharide (groups A, C, Y and W-135) conjugate vaccine (MCV4P) Unknown Completed [facility] MMR Unknown Completed [facility] IPV Unknown Completed [facility] Poliovirus, Live, Oral, Trivalent Unknown Completed [facility] Varicella (varivax)(chicken pox) Unknown Completed [facility] TDAP Unknown Completed [facility] HPV9 Unknown Completed [facility] Influenza Virus Vaccine Quad .5 mL IM 6+ MO (FLUZONE/FLULAVAL/FL UARIX) Unknown Completed [facility] DTaP, Unspecified Formulation Unknown Completed [facility] DPT/HIB Unknown Completed [facility] Hep B, Adol or Pedi Dosage Unknown Completed [facility] Hib-HbOC Unknown Completed [facility] Meningococcal Polysaccharide (groups A, C, Y and W-135) conjugate vaccine (MCV4P) Unknown Completed [facility] MMR Unknown Completed [facility] IPV Unknown Completed [facility] Poliovirus, Live, Oral, Trivalent Unknown Completed [facility] Varicella (varivax)(chicken pox) Unknown Completed [facility] TDAP Unknown Completed [facility] HPV9 Unknown Completed [facility] Influenza Virus Vaccine Quad .5 mL IM 6+ MO (FLUZONE/FLULAVAL/FL UARIX) Unknown Completed [facility] DTaP, Unspecified Formulation Unknown Completed [facility] DPT/HIB Unknown Completed [facility] Hep B, Adol or Pedi Dosage Unknown Completed [facility] Hib-HbOC Unknown Completed [facility] Meningococcal Polysaccharide (groups A, C, Y and W-135) conjugate vaccine (MCV4P) Unknown Completed [facility] MMR Unknown Completed [facility] IPV Unknown Completed [facility] Poliovirus, Live, Oral, Trivalent Unknown Completed [facility] Varicella (varivax)(chicken pox) Unknown Completed [facility] TDAP Unknown Completed [facility] HPV9 Unknown Completed [facility] Influenza Virus Vaccine Quad .5 mL IM 6+ MO (FLUZONE/FLULAVAL/FL UARIX) Unknown Completed [facility] DTaP, Unspecified Formulation Unknown Completed [facility] DPT/HIB Unknown Completed [facility] Hep B, Adol or Pedi Dosage Unknown Completed [facility] Hib-HbOC Unknown Completed [facility] Meningococcal Polysaccharide (groups A, C, Y and W-135) conjugate vaccine (MCV4P) Unknown Completed [facility] MMR Unknown Completed [facility] IPV Unknown Completed [facility] Poliovirus, Live, Oral, Trivalent Unknown Completed [facility] Varicella (varivax)(chicken pox) Unknown Completed [facility] TDAP Unknown Completed [facility] HPV9 Unknown Completed [facility] Influenza Virus Vaccine Quad .5 mL IM 6+ MO (FLUZONE/FLULAVAL/FL UARIX) Unknown Completed [facility] DTaP, Unspecified Formulation Unknown Completed [facility] DPT/HIB Unknown Completed [facility] Hep B, Adol or Pedi Dosage Unknown Completed [facility] Hib-HbOC Unknown Completed [facility] Meningococcal Polysaccharide (groups A, C, Y and W-135) conjugate vaccine (MCV4P) Unknown Completed [facility] MMR Unknown Completed [facility] IPV Unknown Completed [facility] Poliovirus, Live, Oral, Trivalent Unknown Completed [facility] Varicella (varivax)(chicken pox) Unknown Completed [facility] TDAP Unknown Completed [facility] HPV9 Unknown Completed [facility] Influenza Virus Vaccine Quad .5 mL IM 6+ MO (FLUZONE/FLULAVAL/FL UARIX) Unknown Completed [facility] DTaP, Unspecified Formulation Unknown Completed [facility] DPT/HIB Unknown Completed [facility] Hep B, Adol or Pedi Dosage Unknown Completed [facility] Hib-HbOC Unknown Completed [facility] Meningococcal Polysaccharide (groups A, C, Y and W-135) conjugate vaccine (MCV4P) Unknown Completed [facility] MMR Unknown Completed [facility] IPV Unknown Completed [facility] Poliovirus, Live, Oral, Trivalent Unknown Completed [facility] Varicella (varivax)(chicken pox) Unknown Completed [facility] TDAP Unknown Completed [facility] HPV9 Unknown Completed [facility] Influenza Virus Vaccine Quad .5 mL IM 6+ MO (FLUZONE/FLULAVAL/FL UARIX) Unknown Completed [facility] DTaP, Unspecified Formulation Unknown Completed [facility] DPT/HIB Unknown Completed [facility] Hep B, Adol or Pedi Dosage Unknown Completed [facility] Hib-HbOC Unknown Completed [facility] Meningococcal Polysaccharide (groups A, C, Y and W-135) conjugate vaccine (MCV4P) Unknown Completed [facility] MMR Unknown Completed [facility] IPV Unknown Completed [facility] Poliovirus, Live, Oral, Trivalent Unknown Completed [facility] Varicella (varivax)(chicken pox) Unknown Completed [facility] TDAP Unknown Completed [facility] HPV9 Unknown Completed [facility] Influenza Virus Vaccine Quad .5 mL IM 6+ MO (FLUZONE/FLULAVAL/FL UARIX) Unknown Completed [facility] DTaP, Unspecified Formulation Unknown Completed [facility] DPT/HIB Unknown Completed [facility] Hep B, Adol or Pedi Dosage Unknown Completed [facility] Hib-HbOC Unknown Completed [facility] Meningococcal Polysaccharide (groups A, C, Y and W-135) conjugate vaccine (MCV4P) Unknown Completed [facility] MMR Unknown Completed [facility] IPV Unknown Completed [facility] Poliovirus, Live, Oral, Trivalent Unknown Completed [facility] Varicella (varivax)(chicken pox) Unknown Completed [facility] DPT/HIB Unknown Completed [facility] Meningococcal Polysaccharide (groups A, C, Y and W-135) conjugate vaccine (MCV4P) Unknown Completed [facility] Poliovirus, Live, Oral, Trivalent Unknown Completed [facility] TDAP Unknown Completed [facility] HPV9 Unknown Completed [facility] Influenza Virus Vaccine Quad .5 mL IM 6+ MO (FLUZONE/FLULAVAL/FL UARIX) Unknown Completed [facility] DTaP, Unspecified Formulation Unknown Completed [facility] Hep B, Adol or Pedi Dosage Unknown Completed [facility] Hib-HbOC Unknown Completed [facility] MMR Unknown Completed [facility] IPV Unknown Completed [facility] Varicella (varivax)(chicken pox) Unknown Completed [facility] TDAP Unknown Completed [facility] HPV9 Unknown Completed [facility] Influenza Virus Vaccine Quad .5 mL IM 6+ MO (FLUZONE/FLULAVAL/FL UARIX) Unknown Completed [facility] DTaP, Unspecified Formulation Unknown Completed [facility] DPT/HIB Unknown Completed [facility] Hep B, Adol or Pedi Dosage Unknown Completed [facility] Hib-HbOC Unknown Completed [facility] Meningococcal Polysaccharide (groups A, C, Y and W-135) conjugate vaccine (MCV4P) Unknown Completed [facility] MMR Unknown Completed [facility] IPV Unknown Completed [facility] Poliovirus, Live, Oral, Trivalent Unknown Completed [facility] Varicella (varivax)(chicken pox) Unknown Completed [facility] TDAP Unknown Completed [facility] HPV9 Unknown Completed [facility] Influenza Virus Vaccine Quad .5 mL IM 6+ MO (FLUZONE/FLULAVAL/FL UARIX) Unknown Completed [facility] DTaP, Unspecified Formulation Unknown Completed [facility] DPT/HIB Unknown Completed [facility] Hep B, Adol or Pedi Dosage Unknown Completed [facility] Hib-HbOC Unknown Completed [facility] Meningococcal Polysaccharide (groups A, C, Y and W-135) conjugate vaccine (MCV4P) Unknown Completed [facility] MMR Unknown Completed [facility] IPV Unknown Completed [facility] Poliovirus, Live, Oral, Trivalent Unknown Completed [facility] Varicella (varivax)(chicken pox) Unknown Completed [facility] TDAP Unknown Completed [facility] HPV9 Unknown Completed [facility] Influenza Virus Vaccine Quad .5 mL IM 6+ MO (FLUZONE/FLULAVAL/FL UARIX) Unknown Completed [facility] DTaP, Unspecified Formulation Unknown Completed [facility] DPT/HIB Unknown Completed [facility] Hep B, Adol or Pedi Dosage Unknown Completed [facility] Hib-HbOC Unknown Completed [facility] Meningococcal Polysaccharide (groups A, C, Y and W-135) conjugate vaccine (MCV4P) Unknown Completed [facility] MMR Unknown Completed [facility] IPV Unknown Completed [facility] Poliovirus, Live, Oral, Trivalent Unknown Completed [facility] Varicella (varivax)(chicken pox) Unknown Completed [facility] TDAP Unknown Completed [facility] HPV9 Unknown Completed [facility] Influenza Virus Vaccine Quad .5 mL IM 6+ MO (FLUZONE/FLULAVAL/FL UARIX) Unknown Completed [facility] DTaP, Unspecified Formulation Unknown Completed [facility] DPT/HIB Unknown Completed [facility] Hep B, Adol or Pedi Dosage Unknown Completed [facility] Hib-HbOC Unknown Completed [facility] Meningococcal Polysaccharide (groups A, C, Y and W-135) conjugate vaccine (MCV4P) Unknown Completed [facility] MMR Unknown Completed [facility] IPV Unknown Completed [facility] Poliovirus, Live, Oral, Trivalent Unknown Completed [facility] Varicella (varivax)(chicken pox) Unknown Completed [facility] DPT/HIB Unknown Completed [facility] Meningococcal Polysaccharide (groups A, C, Y and W-135) conjugate vaccine (MCV4P) Unknown Completed [facility] Poliovirus, Live, Oral, Trivalent Unknown Completed [facility] TDAP Unknown Completed [facility] HPV9 Unknown Completed [facility] Influenza Virus Vaccine Quad .5 mL IM 6+ MO (FLUZONE/FLULAVAL/FL UARIX) Unknown Completed [facility] DTaP, Unspecified Formulation Unknown Completed [facility] Hep B, Adol or Pedi Dosage Unknown Completed [facility] Hib-HbOC Unknown Completed [facility] MMR Unknown Completed [facility] IPV Unknown Completed [facility] Varicella (varivax)(chicken pox) Unknown Completed [facility] DTaP, Unspecified Formulation Unknown Completed [facility] DPT/HIB Unknown Completed [facility] Hep B, Adol or Pedi Dosage Unknown Completed [facility] Hib-HbOC Unknown Completed [facility] Meningococcal Polysaccharide (groups A, C, Y and W-135) conjugate vaccine (MCV4P) Unknown Completed [facility] MMR Unknown Completed [facility] IPV Unknown Completed [facility] Poliovirus, Live, Oral, Trivalent Unknown Completed [facility] Varicella (varivax)(chicken pox) Unknown Completed [facility] TDAP Unknown Completed [facility] HPV9 Unknown Completed [facility] Influenza Virus Vaccine Quad .5 mL IM 6+ MO (FLUZONE/FLULAVAL/FL UARIX) Unknown Completed [facility] TDAP Unknown Completed [facility] HPV9 Unknown Completed [facility] Influenza Virus Vaccine Quad .5 mL IM 6+ MO (FLUZONE/FLULAVAL/FL UARIX) Unknown Completed [facility] DTaP, Unspecified Formulation Unknown Completed [facility] DPT/HIB Unknown Completed [facility] Hep B, Adol or Pedi Dosage Unknown Completed [facility] Hib-HbOC Unknown Completed [facility] Meningococcal Polysaccharide (groups A, C, Y and W-135) conjugate vaccine (MCV4P) Unknown Completed [facility] MMR Unknown Completed [facility] IPV Unknown Completed [facility] Poliovirus, Live, Oral, Trivalent Unknown Completed [facility] Varicella (varivax)(chicken pox) Unknown Completed [facility] TDAP Unknown Completed [facility] HPV9 Unknown Completed [facility] Influenza Virus Vaccine Quad .5 mL IM 6+ MO (FLUZONE/FLULAVAL/FL UARIX) Unknown Completed [facility] DTaP, Unspecified Formulation Unknown Completed [facility] DPT/HIB Unknown Completed [facility] Hep B, Adol or Pedi Dosage Unknown Completed [facility] Hib-HbOC Unknown Completed [facility] Meningococcal Polysaccharide (groups A, C, Y and W-135) conjugate vaccine (MCV4P) Unknown Completed [facility] MMR Unknown Completed [facility] IPV Unknown Completed [facility] Poliovirus, Live, Oral, Trivalent Unknown Completed [facility] Varicella (varivax)(chicken pox) Unknown Completed [facility] TDAP Unknown Completed [facility] HPV9 Unknown Completed [facility] Influenza Virus Vaccine Quad .5 mL IM 6+ MO (FLUZONE/FLULAVAL/FL UARIX) Unknown Completed [facility] DTaP, Unspecified Formulation Unknown Completed [facility] DPT/HIB Unknown Completed [facility] Hep B, Adol or Pedi Dosage Unknown Completed [facility] Hib-HbOC Unknown Completed [facility] Meningococcal Polysaccharide (groups A, C, Y and W-135) conjugate vaccine (MCV4P) Unknown Completed [facility] MMR Unknown Completed [facility] IPV Unknown Completed [facility] Poliovirus, Live, Oral, Trivalent Unknown Completed [facility] Varicella (varivax)(chicken pox) Unknown Completed [facility] DPT/HIB Unknown Completed [facility] Meningococcal Polysaccharide (groups A, C, Y and W-135) conjugate vaccine (MCV4P) Unknown Completed [facility] Poliovirus, Live, Oral, Trivalent Unknown Completed [facility] TDAP Unknown Completed [facility] HPV9 Unknown Completed [facility] Influenza Virus Vaccine Quad .5 mL IM 6+ MO (FLUZONE/FLULAVAL/FL UARIX) Unknown Completed [facility] DTaP, Unspecified Formulation Unknown Completed [facility] Hep B, Adol or Pedi Dosage Unknown Completed [facility] Hib-HbOC Unknown Completed [facility] MMR Unknown Completed [facility] IPV Unknown Completed [facility] Varicella (varivax)(chicken pox) Unknown Completed [facility] Vital Signs Vital Name Observation Time Observation Value Comments S ource Systolic blood pressure 2023-12-04 19:21:00 108 mm[Hg] [facility] Diastolic blood pressure 2023-12-04 19:21:00 69 mm[Hg] [facility] Heart rate 2023-12-04 19:21:00 75 /[facility] Body temperature 2023-12-04 19:21:00 36.78 Mariella [facility] Respiratory rate 2023-12-04 19:21:00 18 /min [facility] Body height 2023-12-04 19:21:00 167.6 cm [facility] Body weight 2023-12-04 19:21:00 73.483 kg [facility] BMI 2023-12-04 19:21:00 26.15 kg/m2 [facility] Systolic blood pressure 2023-11-13 22:30:00 130 mm[Hg] [facility] Diastolic blood pressure 2023-11-13 22:30:00 80 mm[Hg] [facility] Heart rate 2023-11-13 22:30:00 93 /min [facility] Body temperature 2023-11-13 22:30:00 36.11 Mariella [facility] Body height 2023-11-13 22:30:00 170.2 cm [facility] Body weight 2023-11-13 22:30:00 72.303 kg [facility] BMI 2023-11-13 22:30:00 24.97 kg/m2 [facility] Systolic blood pressure 2023-11-06 21:08:00 110 mm[Hg] [facility] Diastolic blood pressure 2023-11-06 21:08:00 68 mm[Hg] [facility] Heart rate 2023-11-06 21:08:00 75 /min [facility] Body temperature 2023-11-06 21:08:00 36.61 Mariella [facility] Respiratory rate 2023-11-06 21:08:00 17 /min [facility] Body height 2023-11-06 21:08:00 170.2 cm [facility] Body weight 2023-11-06 21:08:00 75.116 kg [facility] BMI 2023-11-06 21:08:00 25.94 kg/m2 [facility] Systolic blood pressure 2023-10-25 19:24:00 106 mm[Hg] [facility] Diastolic blood pressure 2023-10-25 19:24:00 71 mm[Hg] [facility] Heart rate 2023-10-25 19:24:00 87 /min [facility] Body temperature 2023-10-25 19:24:00 36.72 Mariella [facility] Respiratory rate 2023-10-25 19:24:00 16 /min [facility] Body height 2023-10-25 19:24:00 170.2 cm [facility] Body weight 2023-10-25 19:24:00 75.297 kg [facility] BMI 2023-10-25 19:24:00 26.00 kg/m2 [facility] Systolic blood pressure 2023-09-27 15:00:00 106 mm[Hg] [facility] Diastolic blood pressure 2023-09-27 15:00:00 64 mm[Hg] [facility] Heart rate 2023-09-27 15:00:00 61 /min [facility] Body temperature 2023-09-27 15:00:00 36.33 Mariella [facility] Respiratory rate 2023-09-27 15:00:00 18 /min [facility] Oxygen saturation in Arterial blood by Pulse oximetry 2023-09-27 15:00:00 98 /min [facility] Body height 2023-09-25 14:00:00 170.2 cm [facility] Body weight 2023-09-25 14:00:00 80.74 kg [facility] BMI 2023-09-25 14:00:00 27.88 kg/m2 [facility] Systolic blood pressure 2023-09-20 20:39:00 104 mm[Hg] [facility] Diastolic blood pressure 2023-09-20 20:39:00 66 mm[Hg] [facility] Heart rate 2023-09-20 20:39:00 89 /min [facility] Respiratory rate 2023-09-20 20:39:00 18 /min [facility] Body height 2023-09-20 20:39:00 170.2 cm [facility] Body weight 2023-09-20 20:39:00 80.287 kg [facility] BMI 2023-09-20 20:39:00 27.72 kg/m2 [facility] Systolic blood pressure 2023-09-13 16:29:00 107 mm[Hg] [facility] Diastolic blood pressure 2023-09-13 16:29:00 72 mm[Hg] [facility] Heart rate 2023-09-13 16:29:00 98 /min [facility] Respiratory rate 2023-09-13 16:29:00 18 /min [facility] Body height 2023-09-13 16:29:00 170.2 cm [facility] Body weight 2023-09-13 16:29:00 77.565 kg [facility] BMI 2023-09-13 16:29:00 26.78 kg/m2 [facility] Systolic blood pressure 2023-08-23 19:08:00 126 mm[Hg] [facility] Diastolic blood pressure 2023-08-23 19:08:00 84 mm[Hg] [place] [facility] Heart rate 2023-08-23 19:08:00 99 /min [facility] 2023-08-23 19:08:00 18 /min [facility] Body height 2023-08-23 19:08:00 [facility].2 [facility] 2023-08-23 19:08:00 78.019 [facility] BMI 2023-08-23 19:08:00 26.94 kg/m2 [facility] Systolic blood pressure 2023-08-09 18:33:00 120 mm[Hg] [place] [facility] Diastolic blood pressure 2023-08-09 18:33:00 70 mm[Hg] [facility] Heart rate 2023-08-09 18:33:00 71 /min [facility] Respiratory rate 2023-08-09 18:33:00 18 /min [facility] Body height 2023-08-09 18:33:00 170.2 cm [facility] Body weight 2023-08-09 18:33:00 78.926 kg [facility] BMI 2023-08-09 18:33:00 27.25 kg/m2 [facility] Systolic blood pressure 2023-07-19 17:08:00 126 mm[Hg] [facility] Diastolic blood pressure 2023-07-19 17:08:00 82 mm[Hg] [facility] Heart rate 2023-07-19 17:08:00 94 /min [facility] Respiratory rate 2023-07-19 17:08:00 18 /min [facility] Body height 2023-07-19 17:08:00 170.2 cm [facility] Body weight 2023-07-19 17:08:00 79.379 [facility] BMI 2023-07-19 17:08:00 27.41 kg/m2 [facility] Systolic blood pressure 2023-06-14 16:26:00 114 mm[Hg] [place] [facility] Diastolic blood pressure 2023-06-14 16:26:00 75 mm[Hg] [facility] Heart rate 2023-06-14 16:26:00 75 /min [facility] Respiratory rate 2023-06-14 16:26:00 18 /min [facility] Body height 2023-06-14 16:26:00 170.2 cm [facility] Body weight 2023-06-14 16:26:00 75.297 kg [facility] BMI 2023-06-14 16:26:00 26.00 kg/m2 [facility] Systolic blood pressure 2023-05-17 16:06:00 119 mm[Hg] [facility] Diastolic blood pressure 2023-05-17 16:06:00 73 mm[Hg] [facility] Heart rate 2023-05-17 16:06:00 116 /min [facility] Respiratory rate 2023-05-17 16:06:00 18 /min [facility] Body height 2023-05-17 16:06:00 170.2 cm [facility] Body weight 2023-05-17 16:06:00 73.029 kg [facility] BMI 2023-05-17 16:06:00 25.22 kg/m2 [facility] Systolic blood pressure 2023-05-07 01:50:00 115 mm[Hg] [facility] Diastolic blood pressure 2023-05-07 01:50:00 70 mm[Hg] [facility] Heart rate 2023-05-07 01:50:00 93 /min [facility] Body temperature 2023-05-07 01:50:00 37.28 Mariella [facility] Respiratory rate 2023-05-07 01:50:00 16 /min [facility] Body height 2023-05-07 01:50:00 170.2 cm [facility] Body weight 2023-05-07 01:50:00 68.947 kg [facility] BMI 2023-05-07 01:50:00 23.81 kg/m2 [facility] Oxygen saturation in Arterial blood by Pulse oximetry 2023-05-07 01:50:00 96 /min [facility] Systolic blood pressure 2023-04-19 15:37:00 125 mm[Hg] [facility] Diastolic blood pressure 2023-04-19 15:37:00 81 mm[Hg] [facility] Heart rate 2023-04-19 15:37:00 97 /min [facility] Body height 2023-04-19 15:37:00 170.2 cm [facility] Body weight 2023-04-19 15:37:00 71.487 kg [facility] BMI 2023-04-19 15:37:00 24.68 kg/m2 [facility] Systolic blood pressure 2023-03-29 19:30:00 113 mm[Hg] [facility] Diastolic blood pressure 2023-03-29 19:30:00 69 mm[Hg] [facility] Heart rate 2023-03-29 19:30:00 88 /min [facility] Respiratory rate 2023-03-29 19:30:00 18 /min [facility] Body weight 2023-03-29 19:30:00 69.4 kg [facility] BMI 2023-03-29 19:30:00 23.96 kg/m2 [facility] Systolic blood pressure 2023-03-22 13:59:00 111 mm[Hg] [facility] Diastolic blood pressure 2023-03-22 13:59:00 73 mm[Hg] [facility] Heart rate 2023-03-22 13:59:00 73 /min [facility] Body temperature 2023-03-22 13:59:00 36.56 Mariella [facility] Body height 2023-03-22 13:59:00 170.2 cm [facility] Body weight 2023-03-22 13:59:00 70.897 kg [facility] BMI 2023-03-22 13:59:00 24.48 kg/m2 [facility] Systolic blood pressure 2023-03-07 02:54:00 125 mm[Hg] [facility] Diastolic blood pressure 2023-03-07 02:54:00 84 mm[Hg] [facility] Heart rate 2023-03-07 02:54:00 107 /min [facility] Body temperature 2023-03-07 02:54:00 37 Mariella [facility] Respiratory rate 2023-03-07 02:54:00 18 /min [facility] Body height 2023-03-07 02:54:00 170.2 cm [facility] Body weight 2023-03-07 02:54:00 74.844 kg [facility] BMI 2023-03-07 02:54:00 25.84 kg/m2 [facility] Oxygen saturation in Arterial blood by Pulse oximetry 2023-03-07 02:54:00 97 /min [facility] Systolic blood pressure 2022-12-20 19:25:00 121 mm[Hg] [facility] Diastolic blood pressure 2022-12-20 19:25:00 73 mm[Hg] [facility] Heart rate 2022-12-20 19:25:00 91 /min [facility] Body temperature 2022-12-20 19:25:00 37 Mariella [facility] Respiratory rate 2022-12-20 19:25:00 18 /min [facility] Body height 2022-12-20 19:25:00 170.2 cm [facility] Body weight 2022-12-20 19:25:00 72.15 kg [facility] BMI 2022-12-20 19:25:00 24.91 kg/m2 [facility] Systolic blood pressure 2022-07-18 19:19:00 129 mm[Hg] [facility] Diastolic blood pressure 2022-07-18 19:19:00 87 mm[Hg] [facility] Heart rate 2022-07-18 19:19:00 101 /min [facility] Body temperature 2022-07-18 19:19:00 36.67 Mariella [facility] Respiratory rate 2022-07-18 19:19:00 18 /min [facility] Body height 2022-07-18 19:19:00 170.2 cm [facility] Body weight 2022-07-18 19:19:00 73.71 kg [facility] BMI 2022-07-18 19:19:00 25.45 kg/m2 [facility] Systolic blood pressure 2021-12-14 13:58:00 115 mm[Hg] [facility] Diastolic blood pressure 2021-12-14 13:58:00 65 mm[Hg] [place] [facility] Heart rate 2021-12-14 13:58:00 82 /min [facility] Body temperature 2021-12-14 13:58:00 36.5 Mariella [facility] Respiratory rate 2021-12-14 13:58:00 16 /min [facility] Body height 2021-12-14 13:58:00 170.2 cm [facility] Body weight 2021-12-14 13:58:00 74.39 kg [facility] BMI 2021-12-14 13:58:00 25.69 kg/m2 [facility] Procedures Procedure Date / Time Performed Performing Clinician Source CONSENT FOR CONTRACEPTION 2023-11-06 06:01:00 Doctor Unassigned, [place] [facility] POCT TEST 2023-11-06 00:00:00 Marcia Ocampo [facility] CBC WITH DIFF 2023-09-26 10:41:00 Marcia Ocampo [facility] POCT GLUCOSE (AUTOMATED) 2023-09-26 03:25:00 Marcia Ocampo [facility] POCT GLUCOSE (AUTOMATED) 2023-09-26 00:48:00 Marcia Ocampo [facility] POCT GLUCOSE (AUTOMATED) 2023-09-25 19:41:00 Marcia Ocampo [facility] CENTRAL NEURAXIAL BLOCK 2023-09-25 16:25:00 Sachin Garza [facility] POCT GLUCOSE (AUTOMATED) 2023-09-25 15:03[facility] 2023-09-25 14:08[facility]BULIN 2023-09-25 14:08:00 DamarisMarcia [facility] CBC WITH DIFF 2023-09-24 18:37:[address] [facility] ASSIGNMENT OF BENEFITS 2023-09-24 18:12:12 Docto r Unassigned, [place] [facility] CONSENT/REFUSAL FOR DIAGNOSIS AND TREATMENT 2023-09-24 18:11:48 Doctor Unassigned, [facility] PHYSICIAN ORDERS 2023-09-20 06:01:00 Doctor Unas signed, [facility] CBC WITH DIFF 2023-09-13 17:53:[address] [facility] DSU PRE-OP 2023-09-13 06:01:00 Doctor Unass igned, [facility] POCT URINALYSIS W/O SPECIFIC GRAVITY 2023-09-13 00:00:00 [facility] ULTRASOUND 2023-09-12 20:34:00 Damaris [facility] POCT URINALYSIS W/O SPECIFIC GRAVITY 2023-08-23 00:00:00 Damaris [facility] TDAP VACCINE, >11 YRS, IM 2023-08-09 18:28:34 Damaris [facility] SECOND AND THIRD TRIMESTER ULTRASOUND 2023-08-09 15:44:00 Damaris [facility] POCT URINALYSIS W/O SPECIFIC GRAVITY 2023-08-09 00:00:00 Damaris [facility] POCT URINALYSIS W/O SPECIFIC GRAVITY 2023-07-19 00:00:00 Damaris [facility] POCT URINALYSIS W/O SPECIFIC GRAVITY 2023-06-14 00:00:00 Damaris [facility] SECOND AND THIRD TRIMESTER ULTRASOUND 2023-05-29 17:25:00 Damaris [facility] SECOND AND THIRD TRIMESTER ULTRASOUND 2023-05-29 17:10:00 Marcia Ocampo [facility] POCT URINALYSIS W/O SPECIFIC GRAVITY 2023-05-17 00:00:00 Marcia Ocampo [facility] ASSIGNMENT OF BENEFITS 2023-05-07 03:00:45 Docto r Unassigned, [facility] CA INCISION & DRAINAGE ABSCESS COMPLICATED/MULTIPLE 2023-05-07 02:54:06 Atul Sena [facility] CONSENT/REFUSAL FOR DIAGNOSIS AND TREATMENT 2023-05-07 01:48:05 Doctor Unassigned, [facility] POCT URINALYSIS W/O SPECIFIC GRAVITY 2023-04-19 00:00:00 Marcia Ocampo [facility] GLYCOSYLATED HEMOGLOBIN (A1C) 2023-03-27 16:12:00 Marcia Ocampo [facility] <14 WEEKS US LIMITED 2023-03-22 15:38:34 Damaris Marcia [facility] SCANNED LAB RESULTS 2023-03-22 05:01:00 Doctor Leisa pierce, [facility] POCT URINALYSIS W/O SPECIFIC GRAVITY 2023-03-22 00:00:00 Damaris Marcia [facility] URINALYSIS 2023-03-07 03:08:00 Ramirez Sanchez [facility] POCT TEST 2023-03-07 03:07:00 Ramirez Sanchez [facility] NOTICE OF PRIVACY PRACTICES 2023-03-07 02:49:46 Doctor Unassigned, [facility] CONSENT/REFUSAL FOR DIAGNOSIS AND TREATMENT 2023-03-07 02:47:26 Doctor Unassigned, [facility] ASSIGNMENT OF BENEFITS 2022-12-20 19:06:39 Docto r Unassigned, [facility] FLU VACC ([id number]), 6+ MONTHS, IM, QUAD 2021-12-14 14:41:01 German Back [facility] Encounters Start Date/Time End Date/Time Encounter Type Admission Type Attending Clinicians Care Facility Care Department Encounter ID Source 2021-07-06 18:46:07 Emergency [facility] [id number] [facility] 2024-01-31 08:00:00 2024-01-31 08:00:00 Outpatient R MARCIA OCAMPO [facility] [id number] [facility] 2023-12-20 11:30:00 2023-12-20 11:30:00 Outpatient R CARITO PICHARDO [facility] [id number] [facility] 2023-12-18 13:30:00 2023-12-18 13:30:00 Outpatient R RAFICARITO CHU [facility] [id number] [facility] 2023-12-04 14:00:00 2023-12-04 14:37:15 Outpatient R RAFICARITO CHU [facility] [id number] [facility] 2023-12-04 14:00:00 2023-12-04 14:37:15 Office Visit MelvinaCarito [facility] 1.2.840.114 350.1.13.10 4.2.7.2.686 [id number] [facility] 2023-12-03 14:00:00 2023-12-03 14:00:00 Outpatient R CARITO PICHARDO [facility] [id number] [facility] 2023-11-29 13:45:00 2023-11-29 13:45:00 Outpatient R MARCIA OCAMPO [facility] [id number] [facility] 2023-11-19 00:00:00 2023-11-19 00:00:00 Refill RafiCarito chu [facility] 1.2.840.114 350.1.13.10 4.2.7.2.686 [id number] 134 [id number] [facility] 2023-11-13 16:00:00 2023-11-13 16:44:43 Outpatient MARCIA STEWART [facility] [id number] [facility] 2023-11-13 16:00:00 2023-11-13 16:44:43 [facility] 1.2.840.114 350.1.13.10 4.2.7.2.686 [id number] 134 [id number] [facility] 2023-11-13 00:00:00 2023-11-13 00:00:00 Telephone Marcia Ocampo [facility] BUILDING 1.2.840.114 350.1.13.10 4.2.7.2.686 [id number] 134 [id number] [facility] 2023-11-06 15:15:00 2023-11-06 15:36:47 Outpatient R MARCIA OCAMPO [facility] [id number] [facility] 2023-11-06 15:15:00 2023-11-06 15:36:47 Office Visit Marcia Ocampo [facility] 1.2.840.114 350.1.13.10 4.2.7.2.686 [id number] [facility] 2023-11-06 00:00:00 2023-11-06 00:00:00 Orders Only Doctor Unassigned, [place] [facility] 1.2.840.114 350.1.13.10 4.2.7.2.686 [id number] [facility] 2023-11-01 00:00:00 2023-11-01 00:00:00 Telephone DamarisMarcia [facility] 1.2.840.114 350.1.13.10 4.2.7.2.686 [id number] 134 [id number] [facility] 2023-10-25 13:15:00 2023-10-25 13:41:03 Outpatient R MARCIA OCAMPO [facility] [id number] [facility] 2023-10-25 13:15:00 2023-10-25 13:41:03 Routine Visit OcampoMarcia [facility] 1.2.840.114 350.1.13.10 4.2.7.2.686 [id number] 134 [id number] [facility] 2023-10-11 15:15:00 2023-10-11 15:15:00 Outpatient R MARCIA OCAMPO [facility] [id number] [facility] 2023-09-25 06:27:00 2023-09-27 10:00:00 Inpatient P MARCIA OCAMPO [facility] ZAKI [id number] [facility] 2023-09-25 06:27:00 2023-09-27 10:00:00 Hospital Encounter Marcia Ocampo [facility] 1.2.840.114 350.1.13.10 4.2.7.2.686 [id number] [facility] 2023-09-25 10:31:00 2023-09-26 02:10:00 Anesthesia Event Sachin Garcia, [facility] 1.2.840.114 350.1.13.10 4.2.7.2.686 [id number] [facility] 2023-09-24 12:15:00 2023-09-24 12:30:00 Health Associate Visit Pob, Adc Lab Main Marcia Ocampo [facility] PROFESSIO [facility] 1.2.840.114 350.1.13.10 4.2.7.2.686 [id number] [facility] 2023-09-24 12:15:00 2023-09-24 12:15:00 Outpatient R MARCIA OCAMPO [facility] [id number] [facility] 2023-09-20 14:45:00 2023-09-20 15:06:34 Outpatient R MARCIA OCAMPO [facility] [id number] [facility] 2023-09-20 14:45:00 2023-09-20 15:06:34 Routine Visit Marcia Ocampo [facility] 1.2840.114 350.1.13.10 4.2.7.2.686 [id number] [facility] 2023-09-20 00:00:00 2023-09-20 00:00:00 Orders Only Doctor Unassigned, [place] [facility] 1.2840.114 350.1.13.10 4.2.7.2.686 [id number] [facility] 2023-09-16 09:30:00 2023-09-16 09:30:00 Outpatient R [facility] [id number] [facility] 2023-09-13 11:30:00 2023-09-13 12:27:12 Health Associate Visit Lab, Ang - Db [facility] 1.2840.114 350.1.13.10 4.2.7.2.686 [id number] [facility] 2023-09-13 11:30:00 2023-09-13 11:30:00 Outpatient R DAMARIS [facility] [id number] [facility] 2023-09-13 10:30:00 2023-09-13 10:44:17 Routine Visit Marcia Ocampo [facility] 1.20.114 350.1.13.10 4.2.7.2.686 [id number] 134 [id number] [facility] 2023-09-13 00:00:00 2023-09-13 00:00:00 Orders Only Doctor Unassigned, [place] [facility] 1.2840.114 350.1.13.10 4.2.7.2.686 [id number] [facility] 2023-09-12 14:45:00 2023-09-12 14:51:15 Outpatient P LEONA PRIETO [facility] [id number] [facility] 2023-09-12 14:45:00 2023-09-12 14:51:15 Health Associate Visit Ultrasound, Joslyn PrietoLeona Abdi [facility] INVENTORY CONTROL SUPERVISOR [facility] 1.2.840.114 350.1.13.10 4.2.7.2.686 [id number] [facility] 2023-09-06 15:15:00 2023-09-06 15:15:00 Outpatient R MARCIA OCAMPO [facility] [id number] [facility] 2023-09-06 00:00:00 2023-09-06 00:00:00 Telephone [facility] 1.2.840.114 350.1.13.10 4.2.7.2.686 [id number] 134 [id number] [facility] 2023-08-23 13:15:00 2023-08-23 13:20:59 Outpatient R MARCIA OCAMPO [facility] [id number] [facility] 2023-08-23 13:15:00 2023-08-23 13:20:59 Routine Visit Marcia Ocampo [facility] 1.2.840.114 350.1.13.10 4.2.7.2.686 [id number] 134 [id number] [facility] 2023-08-09 12:45:00 2023-08-09 12:48:32 Routine Visit Marcia Ocampo [facility] 1.2.840.114 350.1.13.10 4.2.7.2.686 [id number] 134 [id number] [facility] 2023-08-09 09:30:00 2023-08-09 09:53:53 Outpatient P CONNERLEONA [facility] [id number] [facility] 2023-08-09 09:30:00 2023-08-09 09:53:53 Health Associate Visit Ultrasound, Joslyn PrietoLeona Ikuvdianesatish [facility] INVENTORY CONTROL SUPERVISOR [facility] 1.114 350.1.13.10 4.2.7.2.686 [id number] [facility] 2023-08-08 10:45:00 2023-08-08 11:22:36 Outpatient R DAMARIS [facility] [id number] [facility] 2023-08-08 10:45:00 2023-08-08 11:00:00 Health Associate Visit Lab, Juan Carlos Ocampo [facility] MEDICAL OFFICE [facility] 1.114 350.1.13.10 4.2.7.2.686 [id number] [facility] 2023-07-22 09:15:00 2023-07-22 09:15:00 Outpatient R [facility] [id number] [facility] 2023-07-19 11:15:00 2023-07-19 11:25:44 Outpatient R DAMARIS [facility] [id number] [facility] 2023-07-19 11:15:00 2023-07-19 11:25:44 Routine Visit [facility] 1.114 350.1.13.10 4.2.7.2.686 [id number] 134 [id number] [facility] 2023-07-10 00:00:00 2023-07-10 00:00:00 Outpatient GC_GCBZW_Ka joea_S [facility] [id number] [facility] 2023-07-09 00:00:00 2023-07-09 00:00:00 Telephone Damaris [facility] 1.114 350.1.13.10 4.2.7.2.686 [id number] 134 [id number] [facility] 2023-06-17 09:16:42 2023-06-17 09:16:42 Outpatient [facility] [id number] John Beckman 2023-06-14 11:30:00 2023-06-14 11:40:45 Outpatient R DAMARIS MARCIA [facility] [id number] [facility] 2023-06-14 11:30:00 2023-06-14 11:40:45 Routine Visit [facility] 1..114 350.1.13.10 4.2.7.2.686 [id number] [facility] 2023-05-29 10:45:00 2023-05-29 12:00:00 Health Associate Visit Ultrasound, Marine Arciniega [facility] INVENTORY CONTROL SUPERVISOR [facility] 1..114 350.1.13.10 4.2.7.2.686 [id number] [facility] 2023-05-29 10:45:00 2023-05-29 10:45:00 Outpatient P [facility]INE [facility] [id number] [facility] 2023-05-23 00:00:00 2023-05-23 00:00:00 Telephone [facility] 1..114 350.1.13.10 4.2.7.2.686 [id number] 134 [id number] [facility] 2023-05-17 11:15:00 2023-05-17 11:27:00 Outpatient R DAMARIS [facility] [id number] [facility] 2023-05-17 11:15:00 2023-05-17 11:27:00 Routine Visit [facility] 1..114 350.1.13.10 4.2.7.2.686 [id number] [facility] 2023-05-07 00:00:00 2023-05-07 00:00:00 Telephone Marcia Ocampo [facility] 1.840.114 350.1.13.10 4.2.7.2.686 [id number] [facility] 2023-05-06 21:13:00 2023-05-06 22:09:00 Emergency X [facility] ERT [id number] [facility] 2023-05-06 21:13:00 2023-05-06 22:09:00 Emergency Atul Sena [facility] 1.840.114 350.1.13.10 4.2.7.2.686 [id number] [facility] 2023-05-06 07:30:00 2023-05-06 07:36:11 Outpatient R DAMARIS MACRIA [facility] [id number] [facility] 2023-05-06 07:30:00 2023-05-06 07:36:11 Health Associate [facility] MED[facility] OFF[facility] BUILDING 1..840.114 350.1.13.10 4.2.7.2.686 [id number] [facility] 2023-04-30 07:30:00 2023-04-30 07:30:00 Outpatient R [facility] [id number] [facility] 2023-04-21 00:00:00 2023-04-21 00:00:00 Nurse Triage Marely Ly [facility] 1.840.114 350.1.13.10 4.2.7.2.686 [id number] [facility] 2023-04-19 11:00:00 2023-04-19 11:06:57 [facility] 1.0.114 350.1.13.10 4.2.7.2.686 [id number] 134 [id number] [facility] 2023-04-19 11:00:00 2023-04-19 11:06:57 Outpatient R OCAMPO [facility] [id number] [facility] 2023-04-01 00:00:00 2023-04-01 00:00:00 [facility] 1.2.114 350.1.13.10 4.2.7.2.686 [id number] 134 [id number] [facility] 2023-03-29 14:00:00 2023-03-29 14:47:28 [facility] 1.84.114 350.1.13.10 4.2.7.2.686 [id number] 134 [id number] [facility] 2023-03-29 14:00:00 2023-03-29 14:47:28 Outpatient R DAMARIS [facility] [id number] [facility] 2023-03-29 00:00:00 2023-03-29 00:00:00 Telephone Leia Everett [facility] 1.114 350.1.13.10 4.2.7.2.686 [id number] 134 [id number] [facility] 2023-03-27 13:00:00 2023-03-27 13:00:00 Health Associate Visit Lab, Juan Carlos - Juan A Ocampo [facility] MED[facility] OFF[facility] BUILDING 1.84.114 350.1.13.10 4.2.7.2.686 [id number] [facility] 2023-03-27 13:00:00 2023-03-27 11:28:09 Outpatient R DAMARIS [facility] [id number] [facility] 2023-03-27 11:00:00 2023-03-27 11:00:00 Outpatient R [facility] [id number] [facility] 2023-03-26 08:00:00 2023-03-26 10:57:52 Outpatient R MARCIA OCAMPO [facility] [id number] [facility] 2023-03-26 08:00:00 2023-03-26 10:57:52 Health Associate Visit Lab, Ang - Db Marcia Ocampo [facility] MEDICAL OFFICE BUILDING 1.2840.114 350.1.13.10 4.2.7.2.686 [id number] [facility] 2023-03-26 00:00:00 2023-03-26 00:00:00 Case Management Damaris [facility] 1.2840.114 350.1.13.10 4.2.7.2.686 [id number] 134 [id number] [facility] 2023-03-26 00:00:00 2023-03-26 00:00:00 Telephone Damaris [facility] 1.2.840.114 350.1.13.10 4.2.7.2.686 [id number] 134 [id number] [facility] 2023-03-25 00:00:00 2023-03-25 00:00:00 Telephone Marcia Ocampo [facility] BUILDING 1.2840.114 350.1.13.10 4.2.7.2.686 [id number] 134 [id number] [facility] 2023-03-25 00:00:00 2023-03-25 00:00:00 Telephone Damaris [facility] 1.2840.114 350.1.13.10 4.2.7.2.686 [id number] 134 [id number] [facility] 2023-03-23 00:00:00 2023-03-23 00:00:00 Case Management Marcia Ocampo [facility] PROFESSIO NAL BUILDING 1.20.114 350.1.13.10 4.2.7.2.686 [id number] 134 [id number] [facility] 2023-03-22 10:45:00 2023-03-22 11:00:00 Health Associate Visit Lab, Juan Carlos - Juan A Marcia Ocampo [facility] 1..114 350.1.13.10 4.2.7.2.686 [id number] [facility] 2023-03-22 09:00:00 2023-03-22 09:34:31 Outpatient R DAMARIS [facility] [id number] [facility] 2023-03-22 09:00:00 2023-03-22 09:34:31 Initial Visit Marcia Ocampo Bryce [facility] 1.0.114 350.1.13.10 4.2.7.2.686 [id number] 134 [id number] [facility] 2023-03-22 00:00:00 2023-03-22 00:00:00 Orders Only Doctor Unassigned, [place] [facility] 1.2840.114 350.1.13.10 4.2.7.2.686 [id number] [facility] 2023-03-06 21:58:00 2023-03-06 23:40:00 Emergency X RAMIREZ SANCHEZ [facility] ERT [id number] [facility] 2023-03-06 21:58:00 2023-03-06 23:40:00 Emergency Ramirez Sanchez [facility] 1.2840.114 350.1.13.10 4.2.7.2.686 [id number] [facility] 2023-03-06 13:00:00 2023-03-06 13:00:00 Outpatient R EDITA DYE [facility] [id number] [facility] 2022-12-20 14:30:00 2022-12-20 15:15:47 Outpatient R EDITA DYE [facility] [id number] [facility] 2022-12-20 14:30:00 2022-12-20 15:15:47 Office Visit Edita Dye [facility] INVENTORY CONTROL SUPERVISOR [facility] MATERNAL & CHILD [facility] 1..840.114 350.1.13.10 4.2.7.2.686 [id number] [facility] 2022-12-20 00:00:00 2022-12-20 00:00:00 Orders Only Doctor Unassigned, [place] [facility] 1.840.114 350.1.13.10 4.2.7.2.686 [id number] [facility] 2022-12-14 09:15:00 2022-12-14 09:15:00 Outpatient R SURJIT RICE [facility] [id number] [facility] 2022-07-18 13:00:00 2022-07-18 13:45:54 Outpatient R SURJIT RICE [facility] [id number] [facility] 2022-07-18 13:00:00 2022-07-18 13:45:54 Office Visit Surjit Rice [facility] INVENTORY CONTROL SUPERVISOR [facility] & CHILD [facility] 1.840.114 350.1.13.10 4.2.7.2.686 [id number] [facility] 2021-12-14 08:45:00 2021-12-14 10:01:04 Outpatient R GERMAN BACK [facility] [id number] [facility] 2021-12-14 08:45:00 2021-12-14 10:01:04 Office Visit German Back [facility] INVENTORY CONTROL SUPERVISOR [facility] & CHILD [facility] 1.840.114 350.1.13.10 4.2.7.2.686 [id number] [facility] 2021-12-14 08:45:00 2021-12-14 10:01:04 Outpatient GERMAN ALEXANDRE [facility] [id number] [facility] 2021-12-14 00:00:00 2021-12-14 00:00:00 Orders Only Doctor Unassigned, [place] [facility] 1.840.114 350.1.13.10 4.2.7.2.686 [id number] [facility] 2021-12-12 09:30:00 2021-12-12 09:30:00 Outpatient GERMAN ALEXANDRE [facility] [id number] [facility] 2021-12-12 09:30:00 2021-12-12 09:30:00 Outpatient GERMAN ALEXANDRE [facility] [id number] [facility] 2021-12-12 09:30:00 2021-12-12 09:30:00 Outpatient GERMAN ALEXANDRE [facility] [id number] [facility] 2021-08-08 09:30:00 2021-08-08 09:30:00 Outpatient SKYLER YARBROUGH [facility] [id number] [facility] 2021-08-07 14:30:00 2021-08-07 15:15:07 Outpatient SKYLER YARBROUGH [facility] [id number] [facility] 2021-08-07 14:21:07 2021-08-07 15:15:07 Office Visit Skyler Cuellar [facility] INVENTORY CONTROL SUPERVISOR [facility] MATERNAL & CHILD [facility] 1.840.114 350.1.13.10 4.2.7.2.686 [id number] [facility] 2021-08-07 00:00:00 2021-08-07 00:00:00 Orders Only Doctor Unassigned, [place] [facility] 1.2.840.114 350.1.13.10 4.2.7.2.686 [id number] [facility] 2021-07-20 09:30:00 2021-07-20 09:30:00 Outpatient LORENZO LAGOS [facility] [id number] [facility] 2021-07-14 00:00:00 2021-07-14 00:00:00 Telephone Surjit Rice [facility] INVENTORY CONTROL SUPERVISOR [facility] & CHILD [facility] 1.2.840.114 350.1.13.10 4.2.7.2.686 [id number] [facility] 2020-12-08 00:00:00 2020-12-08 00:00:00 Telephone German Back [facility] INVENTORY CONTROL SUPERVISOR [facility] MATER[facility] & CHILD [facility] 1.2.840.114 350.1.13.10 4.2.7.2.686 [id number] 107 [id number] [facility] 2020-12-08 00:00:00 2020-12-08 00:00:00 Telephone German Back [facility] INVENTORY CONTROL SUPERVISOR [facility] & CHILD [facility] 1.2.840.114 350.1.13.10 4.2.7.2.686 [id number] 2020-12-07 09:16:24 2020-12-07 10:08:04 Office Visit German Back [facility] INVENTORY CONTROL SUPERVISOR [facility]ILD [facility] 1.2.840.114 350.1.13.10 4.2.7.2.686 [id number] 107 [id number] [facility] 2020-12-07 09:00:00 2020-12-07 09:00:00 Outpatient R GERMAN BACK [facility] [id number] [facility] 2020-12-07 00:00:00 2020-12-07 00:00:00 Orders Only Doctor Unassigned, [place] [facility] 1.2.840.114 350.1.13.10 4.2.7.2.686 [id number] [facility] 2020-05-02 00:00:00 2020-05-02 00:00:00 Telephone [place] Back [facility] INVENTORY CONTROL SUPERVISOR [facility] & CHILD [facility] 1.2.840.114 350.1.13.10 4.2.7.2.686 [id number] 107 [id number] [facility] 2020-02-12 12:56:01 2020-02-12 13:27:54 [facility] [place] Back [facility] INVENTORY CONTROL SUPERVISOR [facility] CHILD [facility] 1.2840.114 350.1.13.10 4.2.7.2.686 [id number] 107 [id number] [facility] 2020-02-12 13:00:00 2020-02-12 13:00:00 Outpatient GERMAN ALEXANDRE [facility] [id number] [facility] 2020-02-11 00:00:00 2020-02-11 00:00:00 Telephone German Back [facility] INVENTORY CONTROL SUPERVISOR [facility] & [facility]ILD [facility] 1.2.840.114 350.1.13.10 4.2.7.2.686 [id number] 107 [id number] [facility] 2020-02-11 00:00:00 2020-02-11 00:00:00 Telephone Surjit Rice [facility] INVENTORY CONTROL SUPERVISOR [facility]ILD [facility] 1.2.840.114 350.1.13.10 4.2.7.2.686 [id number] [facility] 2020-02-09 14:00:00 2020-02-09 14:00:00 Outpatient R GERMAN BACK [facility] [id number] [facility] 2020-02-03 13:00:00 2020-02-03 13:00:00 Outpatient R [facility] [id number] [facility] 2019-12-31 00:39:27 2019-12-31 01:01:00 Emergency [facility] [id number] [id number] [facility] 2019-10-19 00:00:00 2019-10-19 00:00:00 Telephone [place] Back [facility] INVENTORY CONTROL SUPERVISOR [facility] MATERNAL & CHILD [facility]ALTH [facility] [id number] [id number] [facility] 2019-10-16 12:48:54 2019-10-16 14:02:54 Office Visit German Back [facility] INVENTORY CONTROL SUPERVISOR [facility] MATERNAL & CHILD [facility] [id number] [id number] [id number] [id number] [facility] 2018-02-25 08:45:00 2018-02-25 08:45:00 [facility] Medicine [id number] [facility] Results Test Description Test Time Test Comments Results Result Co mments Source [id number] 21:06:00* Test Item Value Reference Range Interpretation Comme nts POCT PREG (test code = 1605) Negative On board controls acceptable with C Line (test code = 3574) Yes POCT PREG LOT # (test code = 3575) POCT PREG TEST DATE ( test code = 3576) [facility] IMMUNE [id number] 15:17:58* Test Item Value Reference Range Interpretation Comme nts RHIG CANDIDATE? (test code = 5188) No- see comment Patient is not a candidate for RhIg- Patient is Rh Positive.Performed at [facility] Laboratory Services - [facility] [address] [place] [id number] Free: [phone] No. [id number] [facility] with [id number] 11:15:54* Test Item Value Reference Range Interpretation [...] 34.7 g/dL 31.6-35.1 RDW-SD (test code = 79727-1) 42.5 fL 39.0-49.9 RDW-CV (test code = 788-0) 13.1 % 12.0-15.5 PLT (test code = 777-3) 174 See_Comment [Automated message] The system which generated this result transmitted reference range: 166 - 358 10*3/?L. The reference range was not used to interpret this result as normal/abnormal. MPV (test code = 45665-1) 11.3 fL 9.5-12.9 NRBC/100 WBC (test code = 9966242239) 0.0 See_Comment [Automated message] The system which generated this result transmitted reference range: 0.0 - 10.0 /100 WBCs. The reference range was not used to interpret this result as normal/abnormal. NRBC x10^3 (test code = 8237464222) See_Comment [Automated message] The system which generated this result transmitted reference range: 10*3/?L. The reference range was not used to interpret this result as normal/abnormal. GRAN MAT (NEUT) % (test code = 770-8) 86.4 % IMM GRAN % (test code = 7963051009) 0.60 % LYMPH % (test code = 736-9) 6.9 % MONO % (test code = 5905-5) 5.1 % EOS % (test code = 713-8) 0.8 % BASO % (test code = 706-2) 0.2 % GRAN MAT x10^3(ANC) (test code = 2824016507) 12.14 10*3/uL 1.88-7.09 H IMM GRAN x10^3 (test code = 3049055411) 0.08 10*3/uL 0.00-0.06 H LYMPH x10^3 (test code = 731-0) 0.97 10*3/uL 1.32-3.29 L MONO x10^3 (test code = 742-7) 0.71 10*3/uL 0.33-0.92 EOS x10^3 (test code = 711-2) 0.11 10*3/uL 0.03-0.39 BASO x10^3 (test code = 704-7) 0.03 10*3/uL 0.01-0.07 Lab Interpretation (test code = 31048-2) Abnormal [facility] GLUCOSE (AUTOMATED)2023-09-26 03:26:13* Test Item Value Reference Range Interpretation Comme nts POCT GLU (test code = 8753135934) 86 mg/dL 70-110 Lab Interpretation (test cod e = 78864-0) Normal [facility] GLUCOSE (AUTOMATED)2023-09-26 00:49:14* Test Item Value Reference Range Interpretation Comme nts POCT GLU (test code = 1798230563) 79 mg/dL 70-110 Lab Interpretation (test cod e = 07383-1) Normal [facility] GLUCOSE (AUTOMATED)2023-09-25 19:43:12* Test Item Value Reference Range Interpretation Comme nts POCT GLU (test code = 5215258233) 98 mg/dL 70-110 Lab Interpretation (test cod e = 62661-4) Normal [facility] [id number] 16:25:00 Sachin William MD ? ? 09/25/2023 [...] YANETH sa line ?Guidance with: landmark technique}Epidural/Spinal [place] and/or Catheter: ?Epidural/Spinal Kit: BBraun ?Needle Type: [...] no more heme aspirated. Negative test dose [facility] [id number] 16:25:00 Sachin William MD ? ? 09/25/2023 [...] L4-L5 ?Approach: midline ? ?Technique: catheter and YANTEH sa line ?Guidance with: landmark technique}Epidural/Spinal [place] and/or Catheter: ?Epidural/Spinal Kit: Melun ?Needle Type: [...] no more heme aspirated. Negative test dose [facility]2023-09-25 15:04:40* Test Item Value Reference Range Interpretation Comme nts POCT GLU (test code = 9790513317) 116 mg/dL 70-110 H Lab Interpretation (test cod e = 37321-2) Abnormal [facility] Screen - ONCE [id number] 15:00:00* Test Item Value Reference Range Interpretation Comme nts ABO & RH (test code = 20) O POSITIVE IAT (test code = 1185) Negative [facility] with [id number] 18:44:22* Test Item Value Reference Range Interpretation [...] 34.6 g/dL 31.6-35.1 RDW-SD (test code = 35850-1) 42.4 fL 39.0-49.9 RDW-CV (test code = 788-0) 12.9 % 12.0-15.5 PLT (test code = 777-3) 197 See_Comment [Automated messa ge] The system which generated this result transmitted reference range: 166 - 358 10*3/?L. The reference range was not used to interpret this result as normal/abnormal. MPV (test code = 57789-0) 11.4 fL 9.5-12.9 NRBC/100 WBC (test code = 7519716431) 0.0 See_Comment [Automated me ssage] The system which generated this result transmitted reference range: 0.0 - 10.0 /100 WBCs. The reference range was not used to interpret this result as normal/abnormal. NRBC x10^3 (test code = 0504579957) See_Comment [Automated messa ge] The system which generated this result transmitted reference range: 10*3/?L. The reference range was not used to interpret this result as normal/abnormal. GRAN MAT (NEUT) % (test code = 770-8) 78.2 % IMM GRAN % (test code = 4643195570) 0.50 % LYMPH % (test code = 736-9) 15.3 % MONO % (test code = 5905-5) 4.4 % EOS % (test code = 713-8) 1.2 % BASO % (test code = 706-2) 0.4 % GRAN MAT x10^3(ANC) (test code = 1753420332) 6.33 10*3/uL 1.88-7.09 IMM GRAN x10^3 (test code = 6616620357) 0.04 10*3/uL 0.00-0.06 LYMPH x10^3 (test code = 731-0) 1.24 10*3/uL 1.32-3.29 L MONO x10^3 (test code = 742-7) 0.36 10*3/uL 0.33-0.92 EOS x10^3 (test code = 711-2) 0.10 10*3/uL 0.03-0.39 BASO x10^3 (test code = 704-7) 0.03 10*3/uL 0.01-0.07 Lab Interpretation (test code = 22806-5) Abnormal [facility] with [id number] 18:44:22* Test Item Value Reference Range Interpretation [...] 34.6 g/dL 31.6-35.1 RDW-SD (test code = 33340-5) 42.4 fL 39.0-49.9 RDW-CV (test code = 788-0) 12.9 % 12.0-15.5 PLT (test code = 777-3) 197 See_Comment [Automated HBCSa ge] The system which generated this result transmitted reference range: 166 - 358 10*3/?L. The reference range was not used to interpret this result as normal/abnormal. MPV (test code = 34468-3) 11.4 fL 9.5-12.9 NRBC/100 WBC (test code = 8383883245) 0.0 See_Comment [Automated [employer] ssage] The system which generated this result transmitted reference range: 0.0 - 10.0 /100 WBCs. The reference range was not used to interpret this result as normal/abnormal. NRBC x10^3 (test code = 3581050303) See_Comment [Automated HBCSa ge] The system which generated this result transmitted reference range: 10*3/?L. The reference range was not used to interpret this result as normal/abnormal. GRAN MAT (NEUT) % (test code = 770-8) 78.2 % IMM GRAN % (test code = 2279717251) 0.50 % LYMPH % (test code = 736-9) 15.3 % MONO % (test code = 5905-5) 4.4 % EOS % (test code = 713-8) 1.2 % BASO % (test code = 706-2) 0.4 % GRAN MAT x10^3(ANC) (test code = 3402820589) 6.33 10*3/uL 1.88-7.09 IMM GRAN x10^3 (test code = 8176744121) 0.04 10*3/uL 0.00-0.06 LYMPH x10^3 (test code = 731-0) 1.24 10*3/uL 1.32-3.29 L MONO x10^3 (test code = 742-7) 0.36 10*3/uL 0.33-0.92 EOS x10^3 (test code = 711-2) 0.10 10*3/uL 0.03-0.39 BASO x10^3 (test code = 704-7) 0.03 10*3/uL 0.01-0.07 Lab Interpretation (test code = 67188-0) Abnormal [facility] with [id number] 20:29:26* Test Item Value Reference Range Interpretation [...] 33.9 g/dL 31.6-35.1 RDW-SD (test code = 87131-3) 41.6 fL 39.0-49.9 RDW-CV (test code = 788-0) 12.6 % 12.0-15.5 PLT (test code = 777-3) 181 See_Comment [Automated messa ge] The system which generated this result transmitted reference range: 166 - 358 10*3/?L. The reference range was not used to interpret this result as normal/abnormal. MPV (test code = 71980-2) 11.8 fL 9.5-12.9 NRBC/100 WBC (test code = 2344108301) 0.0 See_Comment [Automated [employer] ssage] The system which generated this result transmitted reference range: 0.0 - 10.0 /100 WBCs. The reference range was not used to interpret this result as normal/abnormal. NRBC x10^3 (test code = 9012658515) See_Comment [Automated messa ge] The system which generated this result transmitted reference range: 10*3/?L. The reference range was not used to interpret this result as normal/abnormal. GRAN MAT (NEUT) % (test code = 770-8) 79.2 % IMM GRAN % (test code = 6650497132) 0.90 % LYMPH % (test code = 736-9) 14.8 % MONO % (test code = 5905-5) 4.2 % EOS % (test code = 713-8) 0.6 % BASO % (test code = 706-2) 0.3 % GRAN MAT x10^3(ANC) (test code = 9907582247) 7.09 10*3/uL 1.88-7.09 IMM GRAN x10^3 (test code = 1351364399) 0.08 10*3/uL 0.00-0.06 H LYMPH x10^3 (test code = 731-0) 1.33 10*3/uL 1.32-3.29 MONO x10^3 (test code = 742-7) 0.38 10*3/uL 0.33-0.92 EOS x10^3 (test code = 711-2) 0.05 10*3/uL 0.03-0.39 BASO x10^3 (test code = 704-7) 0.03 10*3/uL 0.01-0.07 Lab Interpretation (test code = 27173-9) Abnormal [facility] Urinalysis w/o Specific [id number] 16:37:00* Test Item Value Reference Range Interpretation [...] = 3257) N/A Negative - Negati ve [facility] Urinalysis w/o Specific [id number] 19:09:00* Test Item Value Reference Range Interpretation [...] = 3257) N/A Negative - Negati ve [facility] URINALYSIS W/O SPECIFIC [id number] 18:37:00* Test Item Value Reference Range Interpretation [...] = 3257) N/A Negative - Negati ve [facility] URINALYSIS W/O SPECIFIC [id number] 17:15:00* Test Item Value Reference Range Interpretation [...] = 3257) N/A Negative - Negati ve [facility] URINALYSIS W/O SPECIFIC [id number] 16:55:00* Test Item Value Reference Range Interpretation [...] = 3257) Negative Negative - Negati ve [facility] URINALYSIS W/O SPECIFIC [id number] 16:05:00* Test Item Value Reference Range Interpretation [...] = 3257) N/A Negative - Negati ve [facility] URINALYSIS W/O SPECIFIC [id number] 15:36:00* Test Item Value Reference Range Interpretation [...] = 3257) n/a Negative - Negati ve [facility]A1C)2023-03-27 20:21:55* Test Item Value Reference Range Interpretation Comme nts HGB A1C (test code = 4548-4) 4.8 % 4.0-5.7 ESTEPHANIA (test code = ESTEPHANIA) Reference RangesNormal: <5.7%Prediabetes: 5.7 - 6.4%Diabetes: > 6.5% Lab Interpretation (test code = 74408-6) Normal [facility] URINALYSIS W/O SPECIFIC [id number] 14:01:00* Test Item Value Reference Range Interpretation [...] = 3257) n/a Negative - Negati ve [facility] [id number] 03:07:00* Test Item Value Reference Range Interpretation Comme nts POCT PREG (test code = 1605) Positive On board controls acceptable with C Line (test code = 3574) Yes POCT PREG LOT # (test code = 3576) [id number] POCT PREG TEST DATE ( test code = 3576) 06/14/2024 Lab Interpretation (test cod e = 60843-9) Normal [facility] History and Physical Notes Date/Time Note Provider [...] Operations: Past Surgical History: Procedure Laterality Date CA FISSURECTOMY INCL SPHINCTEROTOMY WHEN PERFORMED Past Medical History: Diagnosis Date Anemia of mother in , antepartum 01/24/2018 resolved Anxiety Managed by [facility], managing without medication Chlamydia 2010, 2013 treated Depression managed by [facility], ongoing, managing without medication Family history [...] details Marcia Ocampo MD 09/25/2023 9:59 AM [facility] Procedure Notes Date/Time Note Provider Source 2023-09-25 10:59:01 Associated Order(s): Central Neuraxial Block Central Neuraxial Block Date/Time: 09/25/2023 10:25 AM Performed by: Sachin William MD Authorized by: Sachin Willaim MD Patient Location: OB End Time: 09/25/2023 [...] YANETH saline Guidance with: landmark technique} Epidural/Spinal [place] and/or Catheter: Epidural/Spinal Kit: BBraun Needle Type: [...] no more heme aspirated. Negative test dose . [facility] [employer] 2023-09-25 10:01:52 Procedure(s): INSERT CERVICAL DILATOR Pre-Procedure Diagnose(s): 39 weeks gestation of ; GDM, class A1 Post-Procedure Diagnose(s): 39 weeks gestation of ; GDM, class A1 Duenas bulb inserted in a sterile manner and inflated with 60 cc of normal saline without complications. Patient tolerated the procedure well. Marcia Ocampo MD #[id number] 09/25/2023 10:02 AM . [facility]
[2024-08-16] MEDS ORDERED: HALOPERIDOL LACT 5 MG/ML INJ ONE (06:05)
[2024-08-16] MEDS ORDERED: NA CHLORIDE 0.9% 500 ML ONE (06:06)
[2024-08-16 06:09] LABS: Absolute Lymphocytes (CBC) 1.3 K/uL (0.7-4.9); Absolute Monocytes 0.8 K/uL (0.1-1.3); Absolute Neutrophil 11.7 K/uL (1.8-8.0); Basophils % 0.2 % (0-1.3); Eosinophils % 0.2 % (0-4.4); Hematocrit 38.8 % (36.0-45.0); Hemoglobin 12.8 g/dL (12.0-15.0); Lymphocytes % 9.3 % (15.3-44.8); MCV 90.9 fL (80-100); Monocytes % 5.8 % (3.3-12.3); Neutrophils % 84.5 % (41.7-73.7); Platelets 213 thou/uL (152-406); RBC Red Blood Cell Count 4.27 M/uL (3.86-4.86); Red Cell Distribution Width 12.7 % (12.1-15.2)
[2024-08-16 06:42] LABS: Albumin 3.7 g/dL (3.4-5.0); Albumin/Globulin Ratio 1.2 (1.1-1.8); Alkaline Phosphatase 55 U/L (45-117); Anion Gap 7.7 mEq/L (5.0-15.0); BUN Blood Urea Nitrogen 16 mg/dL (7-18); Bicarbonate 24 mEq/L (21-32); Globulin 3.2 g/dL (2.3-3.5); Glomerular Filtration Rate 127 ml/min (=/>90); Glucose Level 112 mg/dL (74-106); Potassium 3.7 mEq/L (3.5-5.1); Protein, Total 6.9 g/dL (6.4-8.2); Sodium Level 139 mEq/L (136-145)
[2024-08-16 06:43] LABS: ALT/SGPT < 14 U/L (13-56); AST/SGOT < 10 U/L (15-37)
--- NOTE | 2024-08-16 06:47 | EDPHYS ---
Physician Documentation [facility] Name: Mitra Melendez Age: 28 yrs Sex: Female : 1995 Arrival Date: 08/16/2024 Time: 05:07 Bed 8 Private MD: ED Physician Mike Sandhu HPI: 08/16 05:37 This 28 yrs old Female presents to ER via Ambulatory with complaints of ec2 Vomiting. 05:37 Patient was seen yesterday and prescribed antiemetic as well as antibiotic due to ec2 concern for pancolitis. Patient reports that she is a daily marijuana smoker. Patient reports otherwise no significant medical problems. She indicates that bathing and hot showers improves her abdominal discomfort.. 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 - Infectious Disease History:: Denies. - Social history:: Smoking status: Patient reports the use of cigarette tobacco products, smokes one pack cigarettes per day. ROS: 05:37 Constitutional: as per hpi ec2 Exam: 05:37 Constitutional: GEN: NAD Head: atraumatic Eyes: EOMI Ears: External ears are ec2 normal. CV: regular rate LUNGS: no respiratory distress ABD: non-distended SKIN: no evidence of rashes MSK: no evidence of trauma Vital Signs: 05:22 BP 109 / 70; Pulse 86; Resp 14; Temp 98.4; Pulse Ox 94% ; Weight 68.04 kg; Height 5 ft. vc1 7 in. ; Pain 6/10; 05:30 BP 117 / 75; Pulse 65; Resp 18; Pulse Ox 96% on R/A; al5 06:00 BP 98 / 54; Pulse 64; Resp 17; Pulse Ox 95% on R/A; al5 06:55 BP 102 / 65; Pulse 65; Resp 16; Pulse Ox 98% on R/A; al5 05:22 Body Mass Index 23.49 (68.04 kg, 170.18 cm) vc1 05:22 Pain Scale: Adult vc1 MDM: 05:25 Medical Screening Exam initiated ec2 05:37 Data reviewed: vital signs, nurses notes. ED course: Patient arrives today for ec2 evaluation of persistent nausea and vomiting after being seen yesterday. External workup shows CT imaging as well as lab work that is nonactionable. Will reestablish IV access, give the patient Haldol for likely hyperemesis cannabinoid. Patient had a urine test that was negative earlier. Additionally patient had a CT abdomen pelvis that showed pancolitis.. 05:42 ED course: EKG independently reviewed and interpreted by me, shows normal sinus rhythm, ec2 rate of 73, no acute ST segment elevation, intervals are nonactionable.. 06:47 ED course: On reassessment patient with marked improvement in symptoms. Will discharge ec2 home and have the patient follow-up PCP. Will prescribe the patient capsaicin cream and I instructed her on marijuana cessation.. 08/16 05:32 Order name: CBC with Diff; Complete Time: 06:12 ec2 08/16 05:32 Order name: CMP; Complete Time: 06:45 ec2 08/16 05:32 Order name: IV; Complete Time: 06:03 ec2 08/16 05:32 Order name: EKG - Nurse/Tech; Complete Time: 06:03 ec2 Administered Medications: 06:10 Drug: NS 0.9% IV 500 ml IV at bolus once; to be given as a bolus over 30 minutes Route: al5 IV; Rate: bolus; Site: left hand; 06:55 Follow up: Response: No adverse reaction; IV Status: Completed infusion; IV Intake: al5 500ml 06:10 Drug: Haloperidol IVP 5 mg IVP once Route: IVP; Site: left hand; al5 06:55 Follow up: Response: No adverse reaction; Marked relief of symptoms al5 Disposition Summary: 08/16/24 06:47 Discharge Ordered Notes: Location: Home ec2 Condition: Stable ec2 Diagnosis - Hyperemesis Cannabinoid ec2 Followup: ec2 - With: Private Physician - When: - Reason: Re-evaluation by your physician Discharge Instructions: - Discharge Summary Sheet ec2 - Cannabinoid Hyperemesis Syndrome ec2 Forms: - Medication Reconciliation Form ec2 - Antibiotic Education ec2 - Prescription Opioid Use ec2 - Patient Portal Instructions ec2 - Leadership Thank You Letter ec2 Prescriptions: - capsaicin 0.075 % Topical cream - apply 1 application TOPICAL route once do not wash area for at least 30 min ec2 after application; 42.5 gram tube; Refills: 0, Product Selection Permitted Signatures: Dispatcher [employer] Laura Hua RN RN vc1 Mike Sandhu MD MD ec2 Rebecca Navarro RN RN al5
--- NOTE | 2024-08-16 06:47 | ER ---
Nurse's Notes [facility] Name: Mitra Melendez Age: 28 yrs Sex: Female : 1995 Arrival Date: 08/16/2024 Time: 05:07 Bed 8 Private MD: Diagnosis: Hyperemesis Cannabinoid Presentation: 08/16 05:22 Chief complaint: Patient states: "CAN'T STOP THROWING UP. I CAME LAST NIGHT AND THEY vc1 SAID MY INTESTINES ARE SWOLLEN. THEY PRESCRIBED ME AN ANTIBIOTIC AND ZOFRAN BUT I WAS DISCHARGED TO LATE TO GET THEM. MY STOMACH HURTS SO BAD AND I CAN'T POOP'. Coronavirus screen: Client denies travel out of the [place] in the last 14 days. At this time, the client does not indicate any symptoms associated with coronavirus-19. Ebola Screen: Patient negative for fever greater than or equal to 101.5 degrees Fahrenheit, and additional compatible Ebola Virus Disease symptoms Patient denies exposure to infectious person. Patient denies travel to an Ebola-affected area in the 21 days before illness onset. No symptoms or risks identified at this time. Initial Sepsis Screen: Does the patient meet any 2 criteria? No. Patient's initial sepsis screen is negative. Does the patient have a suspected source of infection? No. Patient's initial sepsis screen is negative. Risk Assessment: Do you want to hurt yourself or someone else? Patient reports no desire to harm self or others. Onset of symptoms is unknown. Activity prior to arrival: vomiting. 05:22 Method Of Arrival: Ambulatory vc1 05:22 Acuity: ELBERT 4 vc1 Triage Assessment: 05:26 General: Appears in no apparent distress. uncomfortable, ill, unkempt, Behavior is vc1 calm, cooperative, appropriate for age. Pain: Complains of pain in epigastric area, umbilical area, right upper quadrant and left upper quadrant Pain currently is 6 out of 10 on a pain scale. Quality of pain is described as pressure, sharp. EENT: No deficits noted. No signs and/or symptoms were reported regarding the EENT system. Neuro: Level of Consciousness is awake, alert, obeys commands, Oriented to person, place, time, situation, Appropriate for age. Cardiovascular: Capillary refill < 3 seconds. Respiratory: Airway is patent Respiratory effort is even, unlabored, Respiratory pattern is regular, symmetrical. GI: Reports upper abdominal pain, epigastric pain, nausea, vomiting. : No deficits noted. No signs and/or symptoms were reported regarding the genitourinary system. Derm: Skin is intact, is healthy with good turgor, Skin is dry, Skin is normal, Skin temperature is warm. Musculoskeletal: Circulation, motion, and sensation intact. Range of motion: intact in all extremities. 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 - Infectious Disease History:: Denies. - Social history:: Smoking status: Patient reports the use of cigarette tobacco products, smokes one pack cigarettes per day. Screenin:35 [facility] ED Fall Risk Assessment (Adult) History of falling in the last 3 months, al5 including since admission No falls in past 3 months (0 pts) Confusion or Disorientation No (0 pts) Intoxicated or Sedated No (0 pts) Impaired Gait No (0 pts) Mobility Assist Device Used No (0 pt) Altered Elimination No (0 pt) Score/Fall Risk Level 0 - 2 = Low Risk Oriented to surroundings, Maintained a safe environment, Hourly rounding (assess needs \\T\\ fall precautionary measures) done. Abuse screen: Denies threats or abuse. Denies injuries from another. Nutritional screening: No deficits noted. Tuberculosis screening: No symptoms or risk factors identified. Assessment: 05:34 General: Appears in no apparent distress. uncomfortable, Behavior is calm, cooperative. al5 Pain: Complains of pain in abdomen. Neuro: Level of Consciousness is awake, alert, obeys commands, Oriented to person, place, time, situation. Cardiovascular: Capillary refill < 3 seconds Patient's skin is warm and dry. Respiratory: Airway is patent Respiratory effort is even, unlabored, Respiratory pattern is regular, symmetrical. GI: Abdomen is flat, non-distended, Reports lower abdominal pain, upper abdominal pain, intolerance of fluids, intolerance of food, nausea, vomiting. : No signs and/or symptoms were reported regarding the genitourinary system. EENT: No signs and/or symptoms were reported regarding the EENT system. Derm: Skin is intact, is healthy with good turgor, Skin is pink, warm \\T\\ dry. normal. Musculoskeletal: No signs and/or symptoms reported regarding the musculoskeletal system. 06:12 Reassessment: Patient appears in no apparent distress at this time. No changes from al5 previously documented assessment. Patient and/or family updated on plan of care and expected duration. Pain level reassessed. Patient is alert, oriented x 3, equal unlabored respirations, skin warm/dry/pink. 06:55 Reassessment: Patient appears in no apparent distress at this time. Patient and/or al5 family updated on plan of care and expected duration. Pain level reassessed. Patient is alert, oriented x 3, equal unlabored respirations, skin warm/dry/pink. Patient states feeling better. Patient states symptoms have improved. Vital Signs: 05:22 BP 109 / 70; Pulse 86; Resp 14; Temp 98.4; Pulse Ox 94% ; Weight 68.04 kg; Height 5 ft. vc1 7 in. ; Pain 6/10; 05:30 BP 117 / 75; Pulse 65; Resp 18; Pulse Ox 96% on R/A; al5 06:00 BP 98 / 54; Pulse 64; Resp 17; Pulse Ox 95% on R/A; al5 06:55 BP 102 / 65; Pulse 65; Resp 16; Pulse Ox 98% on R/A; al5 05:22 Body Mass Index 23.49 (68.04 kg, 170.18 cm) vc1 05:22 Pain Scale: Adult vc1 ED Course: 05:11 Patient arrived in ED. gm2 05:11 Mike Sandhu MD is Attending Physician. ec2 05:25 Triage completed. vc1 05:25 Arm band placed on right wrist. vc1 05:34 Rebecca Navarro RN is Primary Nurse. al5 05:35 Patient has correct armband on for positive identification. Bed in low position. Call al5 light in reach. Side rails up X 1. Provided Education on: plan of care. 05:36 No provider procedures requiring assistance completed. al5 06:03 CMP Sent. kmf 06:03 CBC with Diff Sent. kmf 06:03 Initial lab(s) drawn, by sc, sent to lab. kmf 06:04 Inserted saline lock: 22 gauge in left hand, using aseptic technique. Blood collected. kmf Flushed with 10 mL NS. Administered Medications: 06:10 Drug: NS 0.9% IV 500 ml IV at bolus once; to be given as a bolus over 30 minutes Route: al5 IV; Rate: bolus; Site: left hand; 06:55 Follow up: Response: No adverse reaction; IV Status: Completed infusion; IV Intake: al5 500ml 06:10 Drug: Haloperidol IVP 5 mg IVP once Route: IVP; Site: left hand; al5 06:55 Follow up: Response: No adverse reaction; Marked relief of symptoms al5 Medication: 05:35 VIS not applicable for this client. al5 Intake: 06:55 IV: 500ml; Total: 500ml. al5 Outcome: 06:47 Discharge ordered by . [email or web address] 06:56 Patient left the ED. al5 Signatures: Laura Castillo RN RN vc1 Mike Sandhu MD MD ec2 Krystina Key [facility] Rebecca Navarro RN RN al5
[2024-08-16 11:33] VITALS: TEMP 98.4
[2024-08-16 11:45] VITALS: BP 102/65; O2SAT 98
== END 2024-08-16 06:56 | disposition home or self-care (01) ==
LOC: ER 05:07
DX: F12.188 Cannabis abuse with other cannabis-induced disorder (principal)
CPT/HCPCS: 96361; 85025; 36415; 80053; 96374; 99284; J1630; J7040; 93005

== ENCOUNTER 2024-09-25 20:37 | Emergency (ER) | payer OTHER ==
--- OUTSIDE RECORDS SUMMARY | 2024-09-25 20:46 | XMS REPORT | Continuity of Care Document ---
Author Name Unknown Address [address] [facility] [address] [place] [address] [facility] Address [address] [facility] [address] [place] [address] Care Team Providers Care Academic Affairs Assistant Name Role Phone PCP, PATIENT DOES NOT HAVE A Primary Care Physic katlin Unavailable MARCIA OCAMPO Attending Clinician Unavailable CARITO PICHARDO Attending Clinician Unavailable Marcia Ocampo MD Attending Clinician [phone] Doctor Unassigned, [place] Attending Clinician U suailable Sachin William MD Attending Clinicia n Darius GAITAN, Loreta Attending Clinician [phone] Po, [facility] Lab Main Attending Clinician Unavailabl e Lab, Ang - Db Attending Clinician Unavailable LEONA PRIETO Attending Clinician Unav ailable Ultrasound, [facility] Attending Clinician UnavailLeona Escalera MD Attending Clinician + [email or web address]_S Attending Clinician UnavailMarine Jo MD Attending Clinician [phone] MARINE WORTHINGTON Attending Clinician Unavailable MARIEN WORTHINGTON Attending Clinician Unavailable ATUL SENA Attending Clinician Unavailable Atul Sena DO Attending Clinician [phone] Gretel GAITAN, Martell Attending Clinician [phone] Marely Ly RN Attending Clinician Unavailabl e Nurse, [facility] Attending Clinician Un available Leia Everett RN Attending Clinician UnavailRAMIREZ Back Attending Clinician Unavailable Ramirez Sanchez MD Attending Clinician [phone] EDITA DYE Attending Clinician Unavaila Edita Junior CNM Attending Clinician [phone] GERMAN BACK Attending Clinician Unavailab SURJIT Catalan Attending Clinician Unavail able Krystal WHCNPSurjit Attending Clinician + German Gil Attending Clinician + [phone] SKYLER CUELLAR Attending Clinician Unavailtamia Cuellar TEAM PSYCHOLOGIST, Skyler Douglas Attending Clinician [phone] LORENZO CHEATHAM Attending Clinician Unavail able Visit, [facility] Nurse Attending Clinician Mikkiva dennys Sanchez MD, Monica Alejandra Attending Clinician [phone] MARCIA OCAMPO Admitting Clinician Unavailable [email or web address] Admitting Clinician Unavaila guillermo Payers Payer Name Policy Type Policy Number Effective Date Expirati on Date Source [place] [employer] [id number] 2023 00:00:00 Problems Condition Name Condition Details Condition Category Status Onset Date Resolution Date Last Treatment Date Treating Clinician Comments Source 39 weeks gestation of 39 weeks gestation of Disease Active 09-25 00:00: 00 [facility] Liveborn , of [place] , born in hospital by vaginal delivery Liveborn , of [place] , born in hospital by vaginal delivery Disease Active 09-25 00:00: 00 [facility] 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 test for herpes simplex virus (HSV) antibody Disease Active 05-17 00:00: 00 [facility] GDM (gestation al diabetes mellitus), class A1 GDM (gestation al diabetes mellitus), class A1 Disease Active 04-19 00:00: 00 [facility] High-risk in third trimester High-risk in third trimester Disease Active 04-19 00:00: 00 [facility] Family history of congenital heart disease Family history of congenital heart disease Disease Active 8-11 00:00: 00 [facility] History of gestationa l diabetes mellitus (GDM) History of gestationa l diabetes mellitus (GDM) Disease Active 8-11 00:00: 00 [facility] Normal in first trimester Normal in first trimester Disease Active 7-14 00:00: 00 [facility] Nausea and vomiting during prior to 22 weeks gestation Nausea and vomiting during prior to 22 weeks gestation Disease Active 7-14 00:00: 00 [facility] History of anxiety and depression History of anxiety and depression Disease Active 4-13 00:00: 00 [facility] BMI 25.0-25.9, adult BMI 25.0-25.9, adult Disease Active 4-07 00:00: 00 [facility] BMI 25.0-25.9, adult BMI 25.0-25.9, adult Disease Active 4-07 00:00: 00 [facility] Nexplanon in place Nexplanon in place Disease Active 3- 00:00: 00 [facility] Flu vaccine need Flu vaccine need Disease Active 3-31 00:00: 00 [facility] Internal thrombosed hemorrhoid s Internal thrombosed hemorrhoid s Disease Active 0 6- 00:00: 00 [facility] Chlamydia trachomati s infection of lower genitourin victorina sites Chlamydia trachomati s infection of lower genitourin victorina sites Disease Active 2018-09 2 00:00: 00 [facility] Encounter for surveillan ce of implantabl e subdermal contracept giovanna Encounter for surveillan ce of implantabl e subdermal contracept giovanna Disease Active 2017-09 00:00: 00 [facility] Tobacco use disorder Tobacco use disorder Disease Active 2017-09 00:00: 00 [facility] 23 weeks gestation of 23 weeks gestation of Diagnosis Active [facility] Paronychia of finger of left hand Paronychia of finger of left hand Diagnosis Active [facility] Allergies, Adverse Reactions, Alerts Allergy Name Allergy Type Status Severity Reaction(s) Onset Date Inactive Date Treating Clinician Comments Source NO KNOWN ALLERGIE S Drug Class Active [facility] Social History Social Habit Start Date Stop Date Quantity Comments Source ASSERTION 2023-01-09 00:00:00 [facility] History of tobacco use 2007-10-04 00:00:00 Cigarette Smoker [facility] History SDOH Alcohol Frequency [facility] History SDOH Alcohol Std Drinks [facility] History SDOH Alcohol Binge [facility] Alcohol intake 2023-12-04 00:00:00 2023-12-04 00:00:00 Ex-drinker (finding) [facility] History of Social function 2023-11-06 00:00:00 2023-11-06 00:00:00 [facility] Alcohol Comment 2023-03-22 00:00:00 2023-03-22 00:00:00 qquit when fund out was [facility] Cigarettes smoked current (pack per day) - Reported 2023-03-22 00:00:00 2023-03-22 00:00:00 [facility] Cigarette pack-years 2023-03-22 00:00:00 2023-03-22 00:00:00 [facility] Tobacco use and exposure 2023-03-22 00:00:00 2023-03-22 00:00:00 Smokeless tobacco non-user [facility] Exposure to SARS-CoV-2 (event) 2022-12-10 00:00:00 2022-12-20 14:24:00 Not sure [facility] Sex Assigned At 1995 00:00:00 1995 00:00:00 [facility] Smoking Status Start Date Stop Date Source Smokes tobacco daily 2023-03-22 00:00:00 [facility] Medications Ordered Medication Name Filled Medication Name Start Date Stop Date Current Medication? Ordering Clinician Indication Dosage Frequency Signature (SIG) Comments Components Source sulfamethox azole-trime thoprim (BACTRIM DS) 800-160 mg per tablet 12-03 00:00: 00 12-07 04:59 :00 No [id number] 1{tbl} Take 1 tablet by mouth in the morning and 1 tablet in the evening. Do all this for 3 days. [facility] sulfamethox azole-trime thoprim (BACTRIM DS) 800-160 mg per tablet 11-18 00:00: 00 11-24 04:59 :00 No [id number] 1{tbl} Take 1 tablet by mouth in the morning and 1 tablet in the evening. Do all this for 5 days. [facility] cephALEXin 500 mg capsule 11-12 00:00: 00 11-18 00:00 :00 No [id number] 500mg Take 1 capsule by mouth 4 (four) times daily for 10 days. [facility] etonogestre L (NEXPLANON) implant 68 mg 00:15: 00 11-06 23:46 :00 No [id number] 68mg [facility] metoclopram nabila HCl (REGLAN) tablet 10 mg 09-26 20:15: 00 09-26 19:35 :00 No 10mg 10 mg, Oral, ONCE, 1 dose, On Sat09/26/23 at 1415, Routine [facility] PNV no.95/giancarlo us fum/folic ac ( ORAL) 09-26 07:35: 16 09-26 00:00 :00 No Take by mouth. [facility] rho(D) immune globulin (RHOGAM) syringe 300 mcg 09-26 06:03: 58 Yes 300ug 300 mcg, Intramuscu lar, ONCE, For 1 dose, Conditiona l, Routine [facility] witch Kamryn (TUCKS) 50 % topical pad 09-26 06:03: 53 Yes Topical, Q4HPRN, Starting on Sat09/26/23 at 0003, Until Discontinu ed, Routine, rectal/hem orrhoidal pain [facility] HYDROcodone -acetaminop hen (NORCO 5) 5-325 mg tablet 1 tablet 09-26 06:03: 53 Yes 1{tbl} 1 tablet, Oral, Q6HPRN, Starting on Sat09/26/23 at 0003, Until Discontinu ed, Routine, Pain (scale 7-10) [facility] ibuprofen (IBU) tablet 600 mg 09-26 06:03: 53 Yes 600mg 600 mg, Oral, Q6HPRN, Starting on Sat09/26/23 at 0003, Until Discontinu ed, Routine, Pain (scale 4-6) [facility] acetaminoph en (TYLENOL) tablet 650 mg 09-26 06:03: 53 Yes 650mg 650 mg, Oral, Q6HPRN, Starting on Sat09/26/23 at 0003, Until Discontinu ed, Routine, Pain (scale 1-3) [facility] diphenhydrA MINE (BENADRYL) tablet 25 mg 09-26 06:03: 53 Yes 25mg 25 mg, Oral, Q6HPRN, Starting on Sat09/26/23 at 2, Until Discontinu ed, Routine, Sleep, Itching [facility] ondansetron (ZOFRAN (PF)) injection 4 mg 09-26 06:03: 53 Yes 4mg 4 mg, Slow IV Push, Q8HPRN, Starting on Sat09/26/23 at 2, Until Discontinu ed, Routine, Nausea and Vomiting (N/V) [facility] simethicone (GAS RELIEF (SIMETHICON E)) chewable tablet 160 mg 09-26 06:03: 53 Yes 160mg 160 mg, Oral, PC+HSPRN, Starting on Sat09/26/23 at 0003, Until Discontinu ed, Routine, Gas [facility] docusate (COLACE) capsule 200 mg 09-26 06:03: 53 Yes 200mg 200 mg, Oral, QDAILYPRN, Starting on Sat09/26/23 at 0003, Until Discontinu ed, Routine, Constipati on [facility] magnesium hydroxide (MILK OF MAGNESIA) 400 mg/5 mL suspension 30 mL 09-26 06:03: 53 Yes 30mL 30 mL, Oral, QDAILYPRN, Starting on Sat09/26/23 at 0003, Until Discontinu ed, Routine, Constipati on [facility] benzocaine- menthol (DERMOPLAST ) 20-0.5 % topical spray 09-26 06:03: 53 Yes Topical, PRN, Starting on Sat09/26/23 at 0003, Until Discontinu ed, Routine, Perineum discomfort [facility] vitamin w/FA tablet 09-26 00:00: 00 11-06 00:00 :00 No [id number] 1{tbl} Take 1 tablet by mouth in the morning. [facility] docusate 100 mg capsule 09-26 00:00: 00 11-06 00:00 :00 No [id number] 200mg Take 2 capsules by mouth once daily as needed for Constipati on. [facility] ferrous sulfate 325 mg (65 mg iron) tablet 09-26 00:00: 00 11-06 00:00 :00 No [id number] 325mg Take 1 tablet by mouth in the morning and 1 tablet in the evening. [facility] ibuprofen 600 mg tablet 09-26 00:00: 00 11-06 00:00 :00 No [id number] 600mg Take 1 tablet by mouth every 6 (six) hours as needed (Pain). Take with food or milk. [facility] PNV no.95/giancarlo us fum/folic ac ( ORAL) 09-25 23:18: 46 Yes Take by mouth. [facility] fentaNYL-ro pivacaine 2 mcg/mL-0.1 % (PF) in NS 200 mL epidural infusion RTU 09-25 16:57: 00 Yes Epidural, CONTINUOUS PRN, Starting on Sat09/25/23 at 1057, Until Discontinu ed, Routine, Intra-op [facility] lidocaine-e pinephrine (XYLOCAINE W/EPINEPHRI NE) 1.5 %-1:200,000 injection 09-25 16:49: 00 Yes Intraderma l, ONCE INTRA PROCEDURE, Starting on Sat09/25/23 at 1049, Until Discontinu ed, Routine, Intra-op [facility] acyclovir (ZOVIRAX) tablet 400 mg 09-25 14:00: 00 09-26 06:03 :57 No 400mg 400 mg, Oral, TID, First dose on Sat09/25/23 at 0800, Until Discontinu ed, BALTA [facility] lactated ringers IV infusion 500 mL 09-25 12:32: 53 09-26 06:03 :56 No 500mL at 999 mL/hr, 500 mL, IV Infusion, PRN - SEE INSTRUCTIO NS, Starting on Sat09/25/23 at 0632, Until Kate 09/26/23 at 0003, Routine [facility] FENTanyl PF (SUBLIMAZE (PF)) injection 100 mcg 09-25 12:32: 53 09-26 06:03 :57 No 100ug 100 mcg, Slow IV Push, Q1HPRN, Starting on Sat09/25/23 at 0632, Until Kate 09/26/23 at 0003, Routine, contractio n pain without an epidural and SVE < 8 cm and Cat I strip [facility] oxytocin (PITOCIN) 30 units in NS 500 mL IV infusion 09-25 12:32: 53 09-26 06:03 :57 No 2mU/min at 2-40 mL/hr, IV Infusion, TITRATE, Starting on Sat09/25/23 at 0632, Until Kate 09/26/23 at 0003, BALTA [facility] D5W-LR IV infusion 1,000 mL 09-25 12:32: 53 09-26 06:03 :56 No 1000mL at 1-125 mL/hr, IV Infusion, TITRATE, Starting on Sat09/25/23 at 0632, Until Kate 09/26/23 at 0003, Routine [facility] PNV no.95/giancarlo us fum/folic ac ( ORAL) 1-12 14:40: 57 Yes Take by mouth. [facility] nirmatrelvi r-ritonavir (PAXLOVID) 300 mg (150 mg x 2)-100 mg tablet 2022-09 2-29 00:00: 00 Yes 3{tbl} Take 3 tablets by mouth in the morning and 3 tablets in the evening. [facility] PNV no.95/giancarlo us fum/folic ac ( ORAL) 2022-09 2-15 13:12: 22 Yes Take by mouth. [facility] acyclovir 400 mg tablet 2022-09 2 00:00: 00 09-26 00:00 :00 No [id number] 400mg Take 1 tablet by mouth in the morning and 1 tablet at noon and 1 tablet in the evening. [facility] blood sugar diagnostic (BLOOD GLUCOSE TEST) strip 2022-09 0- 00:00: 00 09-26 00:00 :00 No Check gluocose 4 times a day [facility] sulfamethox azole-trime thoprim (BACTRIM DS) 800-160 mg per tablet 9-08 00:00: 00 05-28 04:59 :00 No [id number] 1{tbl} Take 1 tablet by mouth in the morning and 1 tablet in the evening. Do all this for 10 days. [facility] cephALEXin (KEFLEX) 500 mg capsule 05-06 00:00: 00 05-14 04:59 :00 No [id number] 500mg Take 1 capsule by mouth in the morning and 1 capsule at noon and 1 capsule in the evening. Do all this for 7 days. [facility] Blood-Gluco se Meter Kit 03-27 00:00: 00 09-26 00:00 :00 No Check glucose 4 times a day. [facility] Lancets Misc 03-27 00:00: 00 09-26 00:00 :00 No Check glucose 4 times a day [facility] Alcohol Swabs (ALCOHOL PADS) PadM 03-27 00:00: 00 09-26 00:00 :00 No Apply to area(s) 4 (four) times daily. [facility] blood sugar diagnostic (BLOOD GLUCOSE TEST) strip 03-27 00:00: 00 07-09 00:00 :00 No Check gluocose 4 times a day [facility] PNV no.95/giancarlo us fum/folic ac ( ORAL) 03-22 09:00: 18 Yes Take by mouth. [facility] pyridoxine, VITAMIN B-6, (VITAMIN B-6) 25 mg tablet 03-22 00:00: 00 09-26 00:00 :00 No [id number] 25mg Take 1 tablet by mouth every 6 (six) hours as needed for Nausea and Vomiting (N/V). [facility] doxylamine (UNISOM, DOXYLAMINE, ) 25 mg tablet 03-22 00:00: 00 09-26 00:00 :00 No [id number] 25mg Take 1 tablet by mouth at bedtime as needed for Nausea and Vomiting (N/V). [facility] metoclopram nabila HCl 10 mg tablet 03-22 00:00: 00 09-26 00:00 :00 No [id number] 10mg Take 1 tablet by mouth every 6 (six) hours as needed for Nausea and Vomiting (N/V). [facility] ondansetron (ZOFRAN-ODT ) disintegrat ing tablet 4 mg 03-07 05:00: 00 03-07 03:55 :00 No 4mg 4 mg, Oral, ONCE, 1 dose, On Kate 03/07/23 at 0000, BALTA [facility] doxylamine- pyridoxine, vit B6, (DICLEGIS) 10-10 mg per tablet 03-06 00:00: 00 03-22 00:00 :00 No [id number] 1{tbl} Take 1 tablet by mouth 4 (four) times daily as needed for Nausea and Vomiting (N/V). [facility] No known medications 2021-09 13:50: 57 No No known medication s [facility] No known medications 12-14 09:03: 50 No [facility] Yes Florencio Mitchell 1 tablet [facility] Immunizations Ordered Immunization Name Filled Immunization Name Date Status Comments Source Influenza Virus Vaccine Quad .5 mL IM 6+ MO 2021-12-14 00:00:00 Completed [facility] Influenza Virus Vaccine Quad .5 mL IM 6+ MO 2021-12-14 00:00:00 Completed [facility] Influenza Virus Vaccine Quad .5 mL IM 6+ MO 2021-12-14 00:00:00 Completed [facility] Influenza Virus Vaccine Quad .5 mL IM 6+ MO 2021-12-14 00:00:00 Completed [facility] Influenza Virus Vaccine Quad .5 mL IM 6+ MO 2021-12-14 00:00:00 Completed [facility] Influenza Virus Vaccine Quad .5 mL IM 6+ MO 2021-12-14 00:00:00 Completed [facility] Influenza Virus Vaccine Quad .5 mL IM 6+ MO 2021-12-14 00:00:00 Completed [facility] Influenza Virus Vaccine Quad .5 mL IM 6+ MO 2021-12-14 00:00:00 Completed [facility] Influenza Virus Vaccine Quad .5 mL IM 6+ MO 2021-12-14 00:00:00 Completed [facility] Influenza Virus Vaccine Quad .5 mL IM 6+ MO (FLUZONE/FLULAVAL/FL UARIX) 2021-12-14 00:00:00 Completed [facility] Influenza Virus Vaccine Quad .5 mL IM 6+ MO (FLUZONE/FLULAVAL/FL UARIX) 2021-12-14 00:00:00 Completed [facility] Influenza Virus Vaccine Quad .5 mL IM 6+ MO 2021-12-14 00:00:00 Completed [facility] Influenza Virus Vaccine Quad .5 mL IM 6+ MO 2021-12-14 00:00:00 Completed [facility] Influenza Virus Vaccine Quad .5 mL IM 6+ MO 2021-12-14 00:00:00 Completed [facility] Influenza Virus Vaccine Quad .5 mL IM 6+ MO 2021-12-14 00:00:00 Completed [facility] Influenza Virus Vaccine Quad .5 mL IM 6+ MO 2021-12-14 00:00:00 Completed [facility] Influenza Virus Vaccine Quad .5 mL IM 6+ MO 2021-12-14 00:00:00 Completed [facility] Influenza Virus Vaccine Quad .5 mL IM 6+ MO 2021-12-14 00:00:00 Completed [facility] Influenza Virus Vaccine Quad .5 mL IM 6+ MO 2021-12-14 00:00:00 Completed [facility] Influenza Virus Vaccine Quad .5 mL IM 6+ MO 2021-12-14 00:00:00 Completed [facility] Influenza Virus Vaccine Quad .5 mL IM 6+ MO 2021-12-14 00:00:00 Completed [facility] Influenza Virus Vaccine Quad .5 mL IM 6+ MO 2021-12-14 00:00:00 Completed [facility] Influenza Virus Vaccine Quad .5 mL IM 6+ MO 2021-12-14 00:00:00 Completed [facility] Influenza Virus Vaccine Quad .5 mL IM 6+ MO 2021-12-14 00:00:00 Completed [facility] Influenza Virus Vaccine Quad .5 mL IM 6+ MO 2021-12-14 00:00:00 Completed [facility] HPV9 2020-12-07 00:00:00 Completed [facility] HPV9 2020-12-07 00:00:00 Completed [facility] HPV9 2020-12-07 00:00:00 Completed [facility] HPV9 2020-12-07 00:00:00 Completed [facility] HPV9 2020-12-07 00:00:00 Completed [facility] HPV9 2020-12-07 00:00:00 Completed [facility] HPV9 2020-12-07 00:00:00 Completed [facility] HPV9 2020-12-07 00:00:00 Completed [facility] HPV9 2020-12-07 00:00:00 Completed [facility] HPV9 2020-12-07 00:00:00 Completed [facility] HPV9 2020-12-07 00:00:00 Completed [facility] HPV9 2020-12-07 00:00:00 Completed [facility] HPV9 2020-12-07 00:00:00 Completed [facility] HPV9 2020-12-07 00:00:00 Completed [facility] HPV9 2020-12-07 00:00:00 Completed [facility] HPV9 2020-12-07 00:00:00 Completed [facility] HPV9 2020-12-07 00:00:00 Completed [facility] HPV9 2020-12-07 00:00:00 Completed [facility] HPV9 2020-12-07 00:00:00 Completed [facility] HPV9 2020-12-07 00:00:00 Completed [facility] HPV9 2020-12-07 00:00:00 Completed [facility] HPV9 2020-12-07 00:00:00 Completed [facility] HPV9 2020-12-07 00:00:00 Completed [facility] HPV9 2020-12-07 00:00:00 Completed [facility] HPV9 2020-12-07 00:00:00 Completed [facility] HPV9 2019-09-17 00:00:00 Completed [facility] HPV9 2019-09-17 00:00:00 Completed [facility] HPV9 2019-09-17 00:00:00 Completed [facility] HPV9 2019-09-17 00:00:00 Completed [facility] HPV9 2019-09-17 00:00:00 Completed [facility] HPV9 2019-09-17 00:00:00 Completed [facility] HPV9 2019-09-17 00:00:00 Completed [facility] HPV9 2019-09-17 00:00:00 Completed [facility] HPV9 2019-09-17 00:00:00 Completed [facility] HPV9 2019-09-17 00:00:00 Completed [facility] HPV9 2019-09-17 00:00:00 Completed [facility] HPV9 2019-09-17 00:00:00 Completed [facility] HPV9 2019-09-17 00:00:00 Completed [facility] HPV9 2019-09-17 00:00:00 Completed [facility] HPV9 2019-09-17 00:00:00 Completed [facility] HPV9 2019-09-17 00:00:00 Completed [facility] HPV9 2019-09-17 00:00:00 Completed [facility] HPV9 2019-09-17 00:00:00 Completed [facility] HPV9 2019-09-17 00:00:00 Completed [facility] HPV9 2019-09-17 00:00:00 Completed [facility] HPV9 2019-09-17 00:00:00 Completed [facility] HPV9 2019-09-17 00:00:00 Completed [facility] HPV9 2019-09-17 00:00:00 Completed [facility] HPV9 2019-09-17 00:00:00 Completed [facility] HPV9 2019-09-17 00:00:00 Completed [facility] HPV9 2019-08-05 00:00:00 Completed [facility] Influenza Virus Vaccine Quad .5 mL IM 6+ MO 2019-08-05 00:00:00 Completed [facility] HPV9 2019-08-05 00:00:00 Completed [facility] Influenza Virus Vaccine Quad .5 mL IM 6+ MO 2019-08-05 00:00:00 Completed [facility] HPV9 2019-08-05 00:00:00 Completed [facility] Influenza Virus Vaccine Quad .5 mL IM 6+ MO 2019-08-05 00:00:00 Completed [facility] HPV9 2019-08-05 00:00:00 Completed [facility] Influenza Virus Vaccine Quad .5 mL IM 6+ MO 2019-08-05 00:00:00 Completed [facility] HPV9 2019-08-05 00:00:00 Completed [facility] Influenza Virus Vaccine Quad .5 mL IM 6+ MO 2019-08-05 00:00:00 Completed [facility] HPV9 2019-08-05 00:00:00 Completed [facility] Influenza Virus Vaccine Quad .5 mL IM 6+ MO 2019-08-05 00:00:00 Completed [facility] HPV9 2019-08-05 00:00:00 Completed [facility] Influenza Virus Vaccine Quad .5 mL IM 6+ MO 2019-08-05 00:00:00 Completed [facility] HPV9 2019-08-05 00:00:00 Completed [facility] Influenza Virus Vaccine Quad .5 mL IM 6+ MO 2019-08-05 00:00:00 Completed [facility] HPV9 2019-08-05 00:00:00 Completed [facility] Influenza Virus Vaccine Quad .5 mL IM 6+ MO 2019-08-05 00:00:00 Completed [facility] HPV9 2019-08-05 00:00:00 Completed [facility] Influenza Virus Vaccine Quad .5 mL IM 6+ MO (FLUZONE/FLULAVAL/FL UARIX) 2019-08-05 00:00:00 Completed [facility] HPV9 2019-08-05 00:00:00 Completed [facility] Influenza Virus Vaccine Quad .5 mL IM 6+ MO (FLUZONE/FLULAVAL/FL UARIX) 2019-08-05 00:00:00 Completed [facility] HPV9 2019-08-05 00:00:00 Completed [facility] Influenza Virus Vaccine Quad .5 mL IM 6+ MO 2019-08-05 00:00:00 Completed [facility] HPV9 2019-08-05 00:00:00 Completed [facility] Influenza Virus Vaccine Quad .5 mL IM 6+ MO 2019-08-05 00:00:00 Completed [facility] HPV9 2019-08-05 00:00:00 Completed [facility] Influenza Virus Vaccine Quad .5 mL IM 6+ MO 2019-08-05 00:00:00 Completed [facility] HPV9 2019-08-05 00:00:00 Completed [facility] Influenza Virus Vaccine Quad .5 mL IM 6+ MO 2019-08-05 00:00:00 [facility] [place] [facility]9 2019-08-05 00:00:00 Completed [facility] [place] Influenza Virus Vaccine Quad .5 mL IM 6+ MO 2019-08-05 00:00:00 Completed [facility] [place] HPV9 2019-08-05 00:00:00 Completed [facility] [place] Influenza Virus Vaccine Quad .5 mL IM 6+ MO 2019-08-05 00:00:00 Completed [facility] [place] HPV9 2019-08-05 00:00:00 Completed [facility] [place] Influenza Virus Vaccine Quad .5 mL IM 6+ MO 2019-08-05 00:00:00 Completed [facility] [place] HPV9 2019-08-05 00:00:00 Completed [facility] [place] Influenza Virus Vaccine Quad .5 mL IM 6+ MO 2019-08-05 00:00:00 Completed [facility] [place] HPV9 2019-08-05 00:00:00 Completed [facility] [place] Influenza Virus Vaccine Quad .5 mL IM 6+ MO 2019-08-05 00:00:00 Completed [facility] [place] HPV9 2019-08-05 00:00:00 Completed [facility] [place] Influenza Virus Vaccine Quad .5 mL IM 6+ MO 2019-08-05 00:00:00 Completed [facility] [place] HPV9 2019-08-05 00:00:00 Completed [facility] [place] Influenza Virus Vaccine Quad .5 mL IM 6+ MO 2019-08-05 00:00:00 Completed [facility] [place] HPV9 2019-08-05 00:00:00 Completed [facility] [place] Influenza Virus Vaccine Quad .5 mL IM 6+ MO 2019-08-05 00:00:00 Completed [facility] [place] HPV9 2019-08-05 00:00:00 Completed [facility] [place] Influenza Virus Vaccine Quad .5 mL IM 6+ MO 2019-08-05 00:00:00 Completed [facility] [place] HPV9 2019-08-05 00:00:00 Completed [facility] [place] Influenza Virus Vaccine Quad .5 mL IM 6+ MO 2019-08-05 00:00:00 Completed [facility] [place] TDAP 2018-05-08 00:00:00 Completed [facility] [place] TDAP 2018-05-08 00:00:00 Completed [facility] [place] TDAP 2018-05-08 00:00:00 Completed [facility] [place] TDAP 2018-05-08 00:00:00 Completed [facility] [place] TDAP 2018-05-08 00:00:00 Completed [facility] [place] TDAP 2018-05-08 00:00:00 Completed [facility] [place] TDAP 2018-05-08 00:00:00 Completed [facility] [place] TDAP 2018-05-08 00:00:00 Completed [facility] [place] TDAP 2018-05-08 00:00:00 Completed [facility] [place] TDAP 2018-05-08 00:00:00 Completed [facility] [place] TDAP 2018-05-08 00:00:00 Completed [facility] [place] TDAP 2018-05-08 00:00:00 Completed [facility] [place] TDAP 2018-05-08 00:00:00 Completed [facility] [place] TDAP 2018-05-08 00:00:00 Completed [facility] [place] TDAP 2018-05-08 00:00:00 Completed [facility] [place] TDAP 2018-05-08 00:00:00 Completed [facility] [place] TDAP 2018-05-08 00:00:00 Completed [facility] [place] TDAP 2018-05-08 00:00:00 Completed [facility] [place] TDAP 2018-05-08 00:00:00 Completed [facility] [place] TDAP 2018-05-08 00:00:00 Completed [facility] [place] TDAP 2018-05-08 00:00:00 Completed [facility] [place] TDAP 2018-05-08 00:00:00 Completed [facility] [place] TDAP 2018-05-08 00:00:00 Completed [facility] [place] TDAP 2018-05-08 00:00:00 Completed [facility] [place] TDAP 2018-05-08 00:00:00 Completed [facility] [place] Varicella (varivax)(chicken pox) 2008-11-26 00:00:00 Completed [facility] [place] Meningococcal Polysaccharide (groups A, C, Y and W-135) conjugate vaccine (MCV4P) 2008-11-26 00:00:00 Completed [facility] [place] TDAP 2008-11-26 00:00:00 Completed [facility] [place] Varicella (varivax)(chicken pox) 2008-11-26 00:00:00 Completed [facility] [place] Meningococcal Polysaccharide (groups A, C, Y and W-135) conjugate vaccine (MCV4P) 2008-11-26 00:00:00 Completed [facility] [place] TDAP 2008-11-26 00:00:00 Completed [facility] [place] Varicella (varivax)(chicken pox) 2008-11-26 00:00:00 Completed [facility] [place] Meningococcal Polysaccharide (groups A, C, Y and W-135) conjugate vaccine (MCV4P) 2008-11-26 00:00:00 Completed [facility] [place] TDAP 2008-11-26 00:00:00 Completed [facility] [place] Varicella (varivax)(chicken pox) 2008-11-26 00:00:00 Completed [facility] [place] Meningococcal Polysaccharide (groups A, C, Y and W-135) conjugate vaccine (MCV4P) 2008-11-26 00:00:00 Completed [facility] [place] TDAP 2008-11-26 00:00:00 Completed [facility] [place] Varicella (varivax)(chicken pox) 2008-11-26 00:00:00 Completed [facility] [place] Meningococcal Polysaccharide (groups A, C, Y and W-135) conjugate vaccine (MCV4P) 2008-11-26 00:00:00 Completed [facility] [place] TDAP 2008-11-26 00:00:00 Completed [facility] [place] Varicella (varivax)(chicken pox) 2008-11-26 00:00:00 Completed [facility] [place] Meningococcal Polysaccharide (groups A, C, Y and W-135) conjugate vaccine (MCV4P) 2008-11-26 00:00:00 Completed [facility] [place] TDAP 2008-11-26 00:00:00 Completed [facility] [place] Varicella (varivax)(chicken pox) 2008-11-26 00:00:00 Completed [facility] [place] Meningococcal Polysaccharide (groups A, C, Y and W-135) conjugate vaccine (MCV4P) 2008[facility]11[facility]26 [facility] [place] Varicella (varivax)(chicken pox) 2008-11-26 00:00:00 Completed [facility] [place] Meningococcal Polysaccharide (groups A, C, Y and W-135) conjugate vaccine (MCV4P) 2008-11-26 00:00:00 Completed [facility] [place] TDAP 2008-11-26 00:00:00 Completed [facility] [place] Varicella (varivax)(chicken pox) 2008-11-26 00:00:00 Completed [facility] [place] Meningococcal Polysaccharide (groups A, C, Y and W-135) conjugate vaccine (MCV4P) 2008-11-26 00:00:00 Completed [facility] [place] TDAP 2008-11-26 00:00:00 Completed [facility] [place] Varicella (varivax)(chicken pox) 2008-11-26 00:00:00 Completed [facility] [place] Meningococcal Polysaccharide (groups A, C, Y and W-135) conjugate vaccine (MCV4P) 2008-11-26 00:00:00 Completed [facility] [place] TDAP 2008-11-26 00:00:00 Completed [facility] [place] Varicella (varivax)(chicken pox) 2008-11-26 00:00:00 Completed [facility] [place] Meningococcal Polysaccharide (groups A, C, Y and W-135) conjugate vaccine (MCV4P) 2008-11-26 00:00:00 Completed [facility] [place] TDAP 2008-11-26 00:00:00 Completed [facility] [place] Varicella (varivax)(chicken pox) 2008-11-26 00:00:00 Completed [facility] [place] Meningococcal Polysaccharide (groups A, C, Y and W-135) conjugate vaccine (MCV4P) 2008-11-26 00:00:00 Completed [facility] [place] TDAP 2008-11-26 00:00:00 Completed [facility] [place] Varicella (varivax)(chicken pox) 2008-11-26 00:00:00 Completed [facility] [place] Meningococcal Polysaccharide (groups A, C, Y and W-135) conjugate vaccine (MCV4P) 2008-11-26 00:00:00 Completed [facility] [place] TDAP 2008-11-26 00:00:00 Completed [facility] [place] Varicella (varivax)(chicken pox) 2008-11-26 00:00:00 Completed [facility] [place] Meningococcal Polysaccharide (groups A, C, Y and W-135) conjugate vaccine (MCV4P) 2008-11-26 00:00:00 Completed [facility] [place] TDAP 2008-11-26 00:00:00 Completed [facility] [place] Varicella (varivax)(chicken pox) 2008-11-26 00:00:00 Completed [facility] [place] Meningococcal Polysaccharide (groups A, C, Y and W-135) conjugate vaccine (MCV4P) 2008-11-26 00:00:00 Completed [facility] [place] TDAP 2008-11-26 00:00:00 Completed [facility] [place] Varicella (varivax)(chicken pox) 2008-11-26 00:00:00 Completed [facility] [place] Meningococcal Polysaccharide (groups A, C, Y and W-135) conjugate vaccine (MCV4P) 2008-11-26 00:00:00 Completed [facility] [place] TDAP 2008-11-26 00:00:00 Completed [facility] [place] Varicella (varivax)(chicken pox) 2008-11-26 00:00:00 Completed [facility] [place] Meningococcal Polysaccharide (groups A, C, Y and W-135) conjugate vaccine (MCV4P) 2008-11-26 00:00:00 Completed [facility] [place] TDAP 2008-11-26 00:00:00 Completed [facility] [place] Varicella (varivax)(chicken pox) 2008-11-26 00:00:00 Completed [facility] [place] Meningococcal Polysaccharide (groups A, C, Y and W-135) conjugate vaccine (MCV4P) 2008-11-26 00:00:00 Completed [facility] [place] TDAP 2008-11-26 00:00:00 Completed [facility] [place] Varicella (varivax)(chicken pox) 2008-11-26 00:00:00 Completed [facility] [place] Meningococcal Polysaccharide (groups A, C, Y and W-135) conjugate vaccine (MCV4P) 2008-11-26 00:00:00 Completed [facility] [place] TDAP 2008-11-26 00:00:00 Completed [facility] [place] Varicella (varivax)(chicken pox) 2008-11-26 00:00:00 Completed [facility] [place] Meningococcal Polysaccharide (groups A, C, Y and W-135) conjugate vaccine (MCV4P) 2008-11-26 00:00:00 Completed [facility] [place] TDAP 2008-11-26 00:00:00 Completed [facility] [place] Varicella (varivax)(chicken pox) 2008-11-26 00:00:00 Completed [facility] [place] Meningococcal Polysaccharide (groups A, C, Y and W-135) conjugate vaccine (MCV4P) 2008-11-26 00:00:00 Completed [facility] [place] TDAP 2008-11-26 00:00:00 Completed [facility] [place] Varicella (varivax)(chicken pox) 2008-11-26 00:00:00 Completed [facility] [place] Meningococcal Polysaccharide (groups A, C, Y and W-135) conjugate vaccine (MCV4P) 2008-11-26 00:00:00 Completed [facility] [place] TDAP 2008-11-26 00:00:00 Completed [facility] MMR 2001-02-04 00:00:00 Completed [facility] [place] IPV 2001-02-04 00:00:00 Completed [facility] [place] DTaP, Unspecified Formulation 2001-02-04 00:00:00 Completed [facility] [place] MMR 2001-02-04 00:00:00 Completed [facility] [place] IPV 2001-02-04 00:00:00 Completed [facility] [place] DTaP, Unspecified Formulation 2001-02-04 00:00:00 Completed [facility] [place] MMR 2001-02-04 00:00:00 Completed [facility] [place] IPV 2001-02-04 00:00:00 Completed [facility] [place] DTaP, Unspecified Formulation 2001-02-04 00:00:00 Completed [facility] [place] MMR 2001-02-04 00:00:00 Completed [facility] [place] IPV 2001-02-04 00:00:00 Completed [facility] [place] DTaP, Unspecified Formulation 2001-02-04 00:00:00 Completed [facility] [place] MMR 2001-02-04 00:00:00 Completed [facility] [place] IPV 2001-02-04 00:00:00 Completed [facility] [place] DTaP, Unspecified Formulation 2001-02-04 00:00:00 Completed [facility] [place] MMR 2001-02-04 00:00:00 Completed [facility] [place] IPV 2001-02-04 00:00:00 Completed [facility] [place] DTaP, Unspecified Formulation 2001-02-04 00:00:00 Completed [facility] [place] MMR 2001-02-04 00:00:00 Completed [facility] [place] IPV 2001-02-04 00:00:00 Completed [facility] [place] DTaP, Unspecified Formulation 2001-02-04 00:00:00 Completed [facility] [place] MMR 2001-02-04 00:00:00 Completed [facility] [place] IPV 2001-02-04 00:00:00 Completed [facility] [place] DTaP, Unspecified Formulation 2001-02-04 00:00:00 Completed [facility] [place] MMR 2001-02-04 00:00:00 Completed [facility] [place] IPV 2001-02-04 00:00:00 Completed [facility] [place] DTaP, Unspecified Formulation 2001-02-04 00:00:00 Completed [facility] [place] MMR 2001-02-04 00:00:00 Completed [facility] [place] IPV 2001-02-04 00:00:00 Completed [facility] [place] DTaP, Unspecified Formulation 2001-02-04 00:00:00 Completed [facility] [place] MMR 2001-02-04 00:00:00 Completed [facility] [place] IPV 2001-02-04 00:00:00 Completed [facility] [place] DTaP, Unspecified Formulation 2001-02-04 00:00:00 Completed [facility] [place] MMR 2001-02-04 00:00:00 Completed [facility] [place] IPV 2001-02-04 00:00:00 Completed [facility] [place] DTaP, Unspecified Formulation 2001-02-04 00:00:00 Completed [facility] [place] MMR 2001-02-04 00:00:00 Completed [facility] [place] IPV 2001-02-04 00:00:00 Completed [facility] [place] DTaP, Unspecified Formulation 2001-02-04 00:00:00 Completed [facility] [place] MMR 2001-02-04 00:00:00 Completed [facility] [place] IPV 2001-02-04 00:00:00 Completed [facility] [place] DTaP, Unspecified Formulation 2001-02-04 00:00:00 Completed [facility] [place] MMR 2001-02-04 00:00:00 Completed [facility] [place] IPV 2001-02-04 00:00:00 Completed [facility] [place] DTaP, Unspecified Formulation 2001-02-04 00:00:00 Completed [facility] [place] MMR 2001-02-04 00:00:00 Completed [facility] IPV 2001-02-04 00:00:00 Completed [facility] DTaP, Unspecified Formulation 2001-02-04 00:00:00 Completed [facility] [place] MMR 2001-02-04 00:00:00 Completed [facility] [place] IPV 2001-02-04 00:00:00 Completed [facility] [place] DTaP, Unspecified Formulation 2001-02-04 00:00:00 Completed [facility] MMR 2001-02-04 00:00:00 Completed [facility] IPV 2001-02-04 00:00:00 Completed [facility] DTaP, Unspecified Formulation 2001-02-04 00:00:00 Completed [facility] MMR 2001-02-04 00:00:00 Completed [facility] IPV 2001-02-04 00:00:00 Completed [facility] DTaP, Unspecified Formulation 2001-02-04 00:00:00 Completed [facility] MMR 2001-02-04 00:00:00 Completed [facility] IPV 2001-02-04 00:00:00 Completed [facility] DTaP, Unspecified Formulation 2001-02-04 00:00:00 Completed [facility] MMR 2001-02-04 00:00:00 Completed [facility] IPV 2001-02-04 00:00:00 Completed [facility] DTaP, Unspecified Formulation 2001-02-04 00:00:00 Completed [facility] MMR 2001-02-04 00:00:00 Completed [facility] IPV 2001-02-04 00:00:00 Completed [facility] DTaP, Unspecified Formulation 2001-02-04 00:00:00 Completed [facility] [place] MMR 1998-07-29 00:00:00 Completed [facility] DPT/HIB 1998-07-29 00:00:00 Completed [facility] MMR 1998-07-29 00:00:00 Completed [facility] DPT/HIB 1998-07-29 00:00:00 Completed [facility] MMR 1998-07-29 00:00:00 Completed [facility] DPT/HIB 1998-07-29 00:00:00 Completed [facility] MMR 1998-07-29 00:00:00 Completed [facility] DPT/HIB 1998-07-29 00:00:00 Completed [facility] MMR 1998-07-29 00:00:00 Completed [facility] DPT/HIB 1998-07-29 00:00:00 Completed [facility] MMR 1998-07-29 00:00:00 Completed [facility] DPT/HIB 1998-07-29 00:00:00 Completed [facility] MMR 1998-07-29 00:00:00 Completed [facility] DPT/HIB 1998-07-29 00:00:00 Completed [facility] MMR 1998-07-29 00:00:00 Completed [facility] DPT/HIB 1998-07-29 00:00:00 Completed [facility] MMR 1998-07-29 00:00:00 Completed [facility] DPT/HIB 1998-07-29 00:00:00 Completed [facility] MMR 1998-07-29 00:00:00 Completed [facility] DPT/HIB 1998-07-29 00:00:00 Completed [facility] [place] MMR 1998-07-29 00:00:00 Completed [facility] DPT/HIB 1998-07-29 00:00:00 Completed [facility] [place] MMR 1998-07-29 00:00:00 Completed [facility] DPT/HIB 1998-07-29 00:00:00 Completed [facility] [place] MMR 1998-07-29 00:00:00 Completed [facility] DPT/HIB 1998-07-29 00:00:00 Completed [facility] MMR 1998-07-29 00:00:00 Completed [facility] DPT/HIB 1998-07-29 00:00:00 Completed [facility] MMR 1998-07-29 00:00:00 Completed [facility] DPT/HIB 1998-07-29 00:00:00 Completed [facility] MMR 1998-07-29 00:00:00 Completed [facility] DPT/HIB 1998-07-29 00:00:00 Completed [facility] MMR 1998-07-29 00:00:00 Completed [facility] DPT/HIB 1998-07-29 00:00:00 Completed [facility] MMR 1998-07-29 00:00:00 Completed [facility] DPT/HIB 1998-07-29 00:00:00 Completed [facility] [place] MMR 1998-07-29 00:00:00 Completed [facility] DPT/HIB 1998-07-29 00:00:00 Completed [facility] MMR 1998-07-29 00:00:00 Completed [facility] DPT/HIB 1998-07-29 00:00:00 Completed [facility] MMR 1998-07-29 00:00:00 Completed [facility] DPT/HIB 1998-07-29 00:00:00 Completed [facility] MMR 1998-07-29 00:00:00 Completed [facility] DPT/HIB 1998-07-29 00:00:00 Completed [facility] [place] Poliovirus, Live, Oral, Trivalent 1998-02-04 00:00:00 Completed [facility] [place] Varicella (varivax)(chicken pox) 1998-02-04 00:00:00 Completed [facility] [place] Poliovirus, Live, Oral, Trivalent 1998-02-04 00:00:00 Completed [facility] [place] Varicella (varivax)(chicken pox) 1998-02-04 00:00:00 Completed [facility] [place] Poliovirus, Live, Oral, Trivalent 1998-02-04 00:00:00 Completed [facility] [place] Varicella (varivax)(chicken pox) 1998-02-04 00:00:00 Completed [facility] [place] Poliovirus, Live, Oral, Trivalent 1998-02-04 00:00:00 Completed [facility] [place] Varicella (varivax)(chicken pox) 1998-02-04 00:00:00 Completed [facility] [place] Poliovirus, Live, Oral, Trivalent 1998-02-04 00:00:00 Completed [facility] [place] Varicella (varivax)(chicken pox) 1998-02-04 00:00:00 Completed [facility] [place] Poliovirus, Live, Oral, Trivalent 1998-02-04 00:00:00 Completed [facility] [place] Varicella (varivax)(chicken pox) 1998-02-04 00:00:00 Completed [facility] [place] Poliovirus, Live, Oral, Trivalent 1998-02-04 00:00:00 Completed [facility] [place] Varicella (varivax)(chicken pox) 1998-02-04 00:00:00 Completed [facility] [place] Poliovirus, Live, Oral, Trivalent 1998-02-04 00:00:00 Completed [facility] [place] Varicella (varivax)(chicken pox) 1998-02-04 00:00:00 Completed [facility] [place] Poliovirus, Live, Oral, Trivalent 1998-02-04 00:00:00 Completed [facility] [place] Varicella (varivax)(chicken pox) 1998-02-04 00:00:00 Completed [facility] [place] Poliovirus, Live, Oral, Trivalent 1998-02-04 00:00:00 Completed [facility] [place] Varicella (varivax)(chicken pox) 1998-02-04 00:00:00 Completed [facility] [place] Poliovirus, Live, Oral, Trivalent 1998-02-04 00:00:00 Completed [facility] [place] Varicella (varivax)(chicken pox) 1998-02-04 00:00:00 Completed [facility] Poliovirus, Live, Oral, Trivalent 1998-02-04 00:00:00 Completed [facility] [place] Varicella (varivax)(chicken pox) 1998-02-04 00:00:00 Completed [facility] Poliovirus, Live, Oral, Trivalent 1998-02-04 00:00:00 Completed [facility] [place] Varicella (varivax)(chicken pox) 1998-02-04 00:00:00 Completed [facility] [place] Poliovirus, Live, Oral, Trivalent 1998-02-04 00:00:00 Completed [facility] [place] Varicella (varivax)(chicken pox) 1998-02-04 00:00:00 Completed [facility] Poliovirus, Live, Oral, Trivalent 1998-02-04 00:00:00 Completed [facility] Varicella (varivax)(chicken pox) 1998-02-04 00:00:00 Completed [facility] Poliovirus, Live, Oral, Trivalent 1998-02-04 00:00:00 Completed [facility] Varicella (varivax)(chicken pox) 1998-02-04 00:00:00 Completed [facility] Poliovirus, Live, Oral, Trivalent 1998-02-04 00:00:00 Completed [facility] Varicella (varivax)(chicken pox) 1998-02-04 00:00:00 Completed [facility] Poliovirus, Live, Oral, Trivalent 1998-02-04 00:00:00 Completed [facility] Varicella (varivax)(chicken pox) 1998-02-04 00:00:00 Completed [facility] Poliovirus, Live, Oral, Trivalent 1998-02-04 00:00:00 Completed [facility] Varicella (varivax)(chicken pox) 1998-02-04 00:00:00 Completed [facility] Poliovirus, Live, Oral, Trivalent 1998-02-04 00:00:00 Completed [facility] Varicella (varivax)(chicken pox) 1998-02-04 00:00:00 Completed [facility] Poliovirus, Live, Oral, Trivalent 1998-02-04 00:00:00 Completed [facility] Varicella (varivax)(chicken pox) 1998-02-04 00:00:00 Completed [facility] Poliovirus, Live, Oral, Trivalent 1998-02-04 00:00:00 Completed [facility] Varicella (varivax)(chicken pox) 1998-02-04 00:00:00 Completed [facility] Hep B, Adol or Pedi Dosage 1997-10-28 00:00:00 Completed [facility] Hep B, Adol or Pedi Dosage 1997-10-28 00:00:00 Completed [facility] Hep B, Adol or Pedi Dosage 1997-10-28 00:00:00 Completed [facility] Hep B, Adol or Pedi Dosage 1997-10-28 00:00:00 Completed [facility] Hep B, Adol or Pedi Dosage 1997-10-28 00:00:00 Completed [facility] Hep B, Adol or Pedi Dosage 1997-10-28 00:00:00 Completed [facility] Hep B, Adol or Pedi Dosage 1997-10-28 00:00:00 Completed [facility] Hep B, Adol or Pedi Dosage 1997-10-28 00:00:00 Completed [facility] Hep B, Adol or Pedi Dosage 1997-10-28 00:00:00 Completed [facility] Hep B, Adol or Pedi Dosage 1997-10-28 00:00:00 Completed [facility] Hep B, Adol or Pedi Dosage 1997-10-28 00:00:00 Completed [facility] Hep B, Adol or Pedi Dosage 1997-10-28 00:00:00 Completed [facility] Hep B, Adol or Pedi Dosage 1997-10-28 00:00:00 Completed [facility] Hep B, Adol or Pedi Dosage 1997-10-28 00:00:00 Completed [facility] Hep B, Adol or Pedi Dosage 1997-10-28 00:00:00 Completed [facility] Hep B, Adol or Pedi Dosage 1997-10-28 00:00:00 Completed [facility] Hep B, Adol or Pedi Dosage 1997-10-28 00:00:00 Completed [facility] Hep B, Adol or Pedi Dosage 1997-10-28 00:00:00 Completed [facility] Hep B, Adol or Pedi Dosage 1997-10-28 00:00:00 Completed [facility] Hep B, Adol or Pedi Dosage 1997-10-28 00:00:00 Completed [facility] Hep B, Adol or Pedi Dosage 1997-10-28 00:00:00 Completed [facility] Hep B, Adol or Pedi Dosage 1997-10-28 00:00:00 Completed [facility] DTaP, Unspecified Formulation 1997-06-29 00:00:00 Completed [facility] Hib-HbOC 1997-06-29 00:00:00 Completed [facility] DTaP, Unspecified Formulation 1997-06-29 00:00:00 Completed [facility] Hib-HbOC 1997-06-29 00:00:00 Completed [facility] DTaP, Unspecified Formulation 1997-06-29 00:00:00 Completed [facility] Hib-HbOC 1997-06-29 00:00:00 Completed [facility] DTaP, Unspecified Formulation 1997-06-29 00:00:00 Completed [facility] Hib-HbOC 1997-06-29 00:00:00 Completed [facility] DTaP, Unspecified Formulation 1997-06-29 00:00:00 Completed [facility] Hib-HbOC 1997-06-29 00:00:00 Completed [facility] DTaP, Unspecified Formulation 1997-06-29 00:00:00 Completed [facility] Hib-HbOC 1997-06-29 00:00:00 Completed [facility] DTaP, Unspecified Formulation 1997-06-29 00:00:00 Completed [facility] Hib-HbOC 1997-06-29 00:00:00 Completed [facility] DTaP, Unspecified Formulation 1997-06-29 00:00:00 Completed [facility] Hib-HbOC 1997-06-29 00:00:00 Completed [facility] DTaP, Unspecified Formulation 1997-06-29 00:00:00 Completed [facility] Hib-HbOC 1997-06-29 00:00:00 Completed [facility] DTaP, Unspecified Formulation 1997-06-29 00:00:00 Completed [facility] Hib-HbOC 1997-06-29 00:00:00 Completed [facility] DTaP, Unspecified Formulation 1997-06-29 00:00:00 Completed [facility] Hib-HbOC 1997-06-29 00:00:00 Completed [facility] DTaP, Unspecified Formulation 1997-06-29 00:00:00 Completed [facility] Hib-HbOC 1997-06-29 00:00:00 Completed [facility] DTaP, Unspecified Formulation 1997-06-29 00:00:00 Completed [facility] Hib-HbOC 1997-06-29 00:00:00 Completed [facility] DTaP, Unspecified Formulation 1997-06-29 00:00:00 Completed [facility] Hib-HbOC 1997-06-29 00:00:00 Completed [facility] DTaP, Unspecified Formulation 1997-06-29 00:00:00 Completed [facility] Hib-HbOC 1997-06-29 00:00:00 Completed [facility] DTaP, Unspecified Formulation 1997-06-29 00:00:00 Completed [facility] Hib-HbOC 1997-06-29 00:00:00 Completed [facility] DTaP, Unspecified Formulation 1997-06-29 00:00:00 Completed [facility] Hib-HbOC 1997-06-29 00:00:00 Completed [facility] DTaP, Unspecified Formulation 1997-06-29 00:00:00 Completed [facility] Hib-HbOC 1997-06-29 00:00:00 Completed [facility] DTaP, Unspecified Formulation 1997-06-29 00:00:00 Completed [facility] Hib-HbOC 1997-06-29 00:00:00 Completed [facility] DTaP, Unspecified Formulation 1997-06-29 00:00:00 Completed [facility] Hib-HbOC 1997-06-29 00:00:00 Completed [facility] DTaP, Unspecified Formulation 1997-06-29 00:00:00 Completed [facility] Hib-HbOC 1997-06-29 00:00:00 Completed [facility] DTaP, Unspecified Formulation 1997-06-29 00:00:00 Completed [facility] Hib-HbOC 1997-06-29 00:00:00 Completed [facility] Hib-HbOC 1997-04-19 00:00:00 Completed [facility] IPV 1997-04-19 00:00:00 Completed [facility] DTaP, Unspecified Formulation 1997-04-19 00:00:00 Completed [facility] Hib-HbOC 1997-04-19 00:00:00 Completed [facility] IPV 1997-04-19 00:00:00 Completed [facility] DTaP, Unspecified Formulation 1997-04-19 00:00:00 Completed [facility] Hib-HbOC 1997-04-19 00:00:00 Completed [facility] IPV 1997-04-19 00:00:00 Completed [facility] DTaP, Unspecified Formulation 1997-04-19 00:00:00 Completed [facility] Hib-HbOC 1997-04-19 00:00:00 Completed [facility] IPV 1997-04-19 00:00:00 Completed [facility] DTaP, Unspecified Formulation 1997-04-19 00:00:00 Completed [facility] Hib-HbOC 1997-04-19 00:00:00 Completed [facility] IPV 1997-04-19 00:00:00 Completed [facility] DTaP, Unspecified Formulation 1997-04-19 00:00:00 Completed [facility] Hib-HbOC 1997-04-19 00:00:00 Completed [facility] IPV 1997-04-19 00:00:00 Completed [facility] DTaP, Unspecified Formulation 1997-04-19 00:00:00 Completed [facility] Hib-HbOC 1997-04-19 00:00:00 Completed [facility] IPV 1997-04-19 00:00:00 Completed [facility] DTaP, Unspecified Formulation 1997-04-19 00:00:00 Completed [facility] Hib-HbOC 1997-04-19 00:00:00 Completed [facility] IPV 1997-04-19 00:00:00 Completed [facility] DTaP, Unspecified Formulation 1997-04-19 00:00:00 Completed [facility] Hib-HbOC 1997-04-19 00:00:00 Completed [facility] IPV 1997-04-19 00:00:00 Completed [facility] DTaP, Unspecified Formulation 1997-04-19 00:00:00 Completed [facility] Hib-HbOC 1997-04-19 00:00:00 Completed [facility] IPV 1997-04-19 00:00:00 Completed [facility] DTaP, Unspecified Formulation 1997-04-19 00:00:00 Completed [facility] Hib-HbOC 1997-04-19 00:00:00 Completed [facility] IPV 1997-04-19 00:00:00 Completed [facility] DTaP, Unspecified Formulation 1997-04-19 00:00:00 Completed [facility] Hib-HbOC 1997-04-19 00:00:00 Completed [facility] IPV 1997-04-19 00:00:00 Completed [facility] DTaP, Unspecified Formulation 1997-04-19 00:00:00 Completed [facility] Hib-HbOC 1997-04-19 00:00:00 Completed [facility] IPV 1997-04-19 00:00:00 Completed [facility] DTaP, Unspecified Formulation 1997-04-19 00:00:00 Completed [facility] Hib-HbOC 1997-04-19 00:00:00 Completed [facility] IPV 1997-04-19 00:00:00 Completed [facility] DTaP, Unspecified Formulation 1997-04-19 00:00:00 Completed [facility] Hib-HbOC 1997-04-19 00:00:00 Completed [facility] IPV 1997-04-19 00:00:00 Completed [facility] DTaP, Unspecified Formulation 1997-04-19 00:00:00 Completed [facility] Hib-HbOC 1997-04-19 00:00:00 Completed [facility] IPV 1997-04-19 00:00:00 Completed [facility] DTaP, Unspecified Formulation 1997-04-19 00:00:00 Completed [facility] Hib-HbOC 1997-04-19 00:00:00 Completed [facility] IPV 1997-04-19 00:00:00 Completed [facility] DTaP, Unspecified Formulation 1997-04-19 00:00:00 Completed [facility] Hib-HbOC 1997-04-19 00:00:00 Completed [facility] IPV 1997-04-19 00:00:00 Completed [facility] DTaP, Unspecified Formulation 1997-04-19 00:00:00 Completed [facility] Hib-HbOC 1997-04-19 00:00:00 Completed [facility] IPV 1997-04-19 00:00:00 Completed [facility] DTaP, Unspecified Formulation 1997-04-19 00:00:00 Completed [facility] Hib-HbOC 1997-04-19 00:00:00 Completed [facility] IPV 1997-04-19 00:00:00 Completed [facility] DTaP, Unspecified Formulation 1997-04-19 00:00:00 Completed [facility] Hib-HbOC 1997-04-19 00:00:00 Completed [facility] IPV 1997-04-19 00:00:00 Completed [facility] DTaP, Unspecified Formulation 1997-04-19 00:00:00 Completed [facility] Hib-HbOC 1997-04-19 00:00:00 Completed [facility] IPV 1997-04-19 00:00:00 Completed [facility] DTaP, Unspecified Formulation 1997-04-19 00:00:00 Completed [facility] Hib-HbOC 1997-02-10 00:00:00 Completed [facility] IPV 1997-02-10 00:00:00 Completed [facility] DTaP, Unspecified Formulation 1997-02-10 00:00:00 Completed [facility] Hib-HbOC 1997-02-10 00:00:00 Completed [facility] IPV 1997-02-10 00:00:00 Completed [facility] DTaP, Unspecified Formulation 1997-02-10 00:00:00 Completed [facility] Hib-HbOC 1997-02-10 00:00:00 Completed [facility] IPV 1997-02-10 00:00:00 Completed [facility] DTaP, Unspecified Formulation 1997-02-10 00:00:00 Completed [facility] Hib-HbOC 1997-02-10 00:00:00 Completed [facility] IPV 1997-02-10 00:00:00 Completed [facility] DTaP, Unspecified Formulation 1997-02-10 00:00:00 Completed [facility] Hib-HbOC 1997-02-10 00:00:00 Completed [facility] IPV 1997-02-10 00:00:00 Completed [facility] DTaP, Unspecified Formulation 1997-02-10 00:00:00 Completed [facility] Hib-HbOC 1997-02-10 00:00:00 Completed [facility] IPV 1997-02-10 00:00:00 Completed [facility] DTaP, Unspecified Formulation 1997-02-10 00:00:00 Completed [facility] Hib-HbOC 1997-02-10 00:00:00 Completed [facility] IPV 1997-02-10 00:00:00 Completed [facility] DTaP, Unspecified Formulation 1997-02-10 00:00:00 Completed [facility] Hib-HbOC 1997-02-10 00:00:00 Completed [facility] IPV 1997-02-10 00:00:00 Completed [facility] DTaP, Unspecified Formulation 1997-02-10 00:00:00 Completed [facility] Hib-HbOC 1997-02-10 00:00:00 Completed [facility] IPV 1997-02-10 00:00:00 Completed [facility] DTaP, Unspecified Formulation 1997-02-10 00:00:00 Completed [facility] Hib-HbOC 1997-02-10 00:00:00 Completed [facility] IPV 1997-02-10 00:00:00 Completed [facility] DTaP, Unspecified Formulation 1997-02-10 00:00:00 Completed [facility] Hib-HbOC 1997-02-10 00:00:00 Completed [facility] IPV 1997-02-10 00:00:00 Completed [facility] DTaP, Unspecified Formulation 1997-02-10 00:00:00 Completed [facility] Hib-HbOC 1997-02-10 00:00:00 Completed [facility] IPV 1997-02-10 00:00:00 Completed [facility] DTaP, Unspecified Formulation 1997-02-10 00:00:00 Completed [facility] Hib-HbOC 1997-02-10 00:00:00 Completed [facility] IPV 1997-02-10 00:00:00 Completed [facility] DTaP, Unspecified Formulation 1997-02-10 00:00:00 Completed [facility] Hib-HbOC 1997-02-10 00:00:00 Completed [facility] IPV 1997-02-10 00:00:00 Completed [facility] DTaP, Unspecified Formulation 1997-02-10 00:00:00 Completed [facility] Hib-HbOC 1997-02-10 00:00:00 Completed [facility] IPV 1997-02-10 00:00:00 Completed [facility] DTaP, Unspecified Formulation 1997-02-10 00:00:00 Completed [facility] Hib-HbOC 1997-02-10 00:00:00 Completed [facility] IPV 1997-02-10 00:00:00 Completed [facility] DTaP, Unspecified Formulation 1997-02-10 00:00:00 Completed [facility] Hib-HbOC 1997-02-10 00:00:00 Completed [facility] IPV 1997-02-10 00:00:00 Completed [facility] DTaP, Unspecified Formulation 1997-02-10 00:00:00 Completed [facility] Hib-HbOC 1997-02-10 00:00:00 Completed [facility] IPV 1997-02-10 00:00:00 Completed [facility] DTaP, Unspecified Formulation 1997-02-10 00:00:00 Completed [facility] Hib-HbOC 1997-02-10 00:00:00 Completed [facility] IPV 1997-02-10 00:00:00 Completed [facility] DTaP, Unspecified Formulation 1997-02-10 00:00:00 Completed [facility] Hib-HbOC 1997-02-10 00:00:00 Completed [facility] IPV 1997-02-10 00:00:00 Completed [facility] DTaP, Unspecified Formulation 1997-02-10 00:00:00 Completed [facility] Hib-HbOC 1997-02-10 00:00:00 Completed [facility] IPV 1997-02-10 00:00:00 Completed [facility] DTaP, Unspecified Formulation 1997-02-10 00:00:00 Completed [facility] Hib-HbOC 1997-02-10 00:00:00 Completed [facility] IPV 1997-02-10 00:00:00 Completed [facility] DTaP, Unspecified Formulation 1997-02-10 00:00:00 Completed [facility] Hep B, Adol or Pedi Dosage 1997-01-19 00:00:00 Completed [facility] Hep B, Adol or Pedi Dosage 1997-01-19 00:00:00 Completed [facility] Hep B, Adol or Pedi Dosage 1997-01-19 00:00:00 Completed [facility] Hep B, Adol or Pedi Dosage 1997-01-19 00:00:00 Completed [facility] Hep B, Adol or Pedi Dosage 1997-01-19 00:00:00 Completed [facility] Hep B, Adol or Pedi Dosage 1997-01-19 00:00:00 Completed [facility] Hep B, Adol or Pedi Dosage 1997-01-19 00:00:00 Completed [facility] Hep B, Adol or Pedi Dosage 1997-01-19 00:00:00 Completed [facility] Hep B, Adol or Pedi Dosage 1997-01-19 00:00:00 Completed [facility] Hep B, Adol or Pedi Dosage 1997-01-19 00:00:00 Completed [facility] Hep B, Adol or Pedi Dosage 1997-01-19 00:00:00 Completed [facility] Hep B, Adol or Pedi Dosage 1997-01-19 00:00:00 Completed [facility] Hep B, Adol or Pedi Dosage 1997-01-19 00:00:00 Completed [facility] Hep B, Adol or Pedi Dosage 1997-01-19 00:00:00 Completed [facility] Hep B, Adol or Pedi Dosage 1997-01-19 00:00:00 Completed [facility] Hep B, Adol or Pedi Dosage 1997-01-19 00:00:00 Completed [facility] Hep B, Adol or Pedi Dosage 1997-01-19 00:00:00 Completed [facility] Hep B, Adol or Pedi Dosage 1997-01-19 00:00:00 Completed [facility] Hep B, Adol or Pedi Dosage 1997-01-19 00:00:00 Completed [facility] Hep B, Adol or Pedi Dosage 1997-01-19 00:00:00 Completed [facility] Hep B, Adol or Pedi Dosage 1997-01-19 00:00:00 Completed [facility] Hep B, Adol or Pedi Dosage 1997-01-19 00:00:00 Completed [facility] Hep B, Adol or Pedi Dosage 1996 00:00:00 Completed [facility] Hep B, Adol or Pedi Dosage 1996 00:00:00 Completed [facility] Hep B, Adol or Pedi Dosage 1996 00:00:00 Completed [facility] Hep B, Adol or Pedi Dosage 1996 00:00:00 Completed [facility] Hep B, Adol or Pedi Dosage 1996 00:00:00 Completed [facility] Hep B, Adol or Pedi Dosage 1996 00:00:00 Completed [facility] Hep B, Adol or Pedi Dosage 1996 00:00:00 Completed [facility] Hep B, Adol or Pedi Dosage 1996 00:00:00 Completed [facility] Hep B, Adol or Pedi Dosage 1996 00:00:00 Completed [facility] Hep B, Adol or Pedi Dosage 1996 00:00:00 Completed [facility] Hep B, Adol or Pedi Dosage 1996 00:00:00 Completed [facility] Hep B, Adol or Pedi Dosage 1996 00:00:00 Completed [facility] Hep B, Adol or Pedi Dosage 1996 00:00:00 Completed [facility] Hep B, Adol or Pedi Dosage 1996 00:00:00 Completed [facility] Hep B, Adol or Pedi Dosage 1996 00:00:00 Completed [facility] Hep B, Adol or Pedi Dosage 1996 00:00:00 Completed [facility] Hep B, Adol or Pedi Dosage 1996 00:00:00 Completed [facility] Hep B, Adol or Pedi Dosage 1996 00:00:00 Completed [facility] Hep B, Adol or Pedi Dosage 1996 00:00:00 Completed [facility] Hep B, Adol or Pedi Dosage 1996 00:00:00 Completed [facility] Hep B, Adol or Pedi Dosage 1996 00:00:00 Completed [facility] Hep B, Adol or Pedi Dosage 1996 00:00:00 Completed [facility] TDAP Unknown Completed [facility] HPV9 Unknown Completed [facility] Influenza Virus Vaccine Quad .5 mL IM 6+ MO (FLUZONE/FLULAVAL/FL UARIX) Unknown Completed [facility] DTaP, Unspecified Formulation Unknown Completed [facility] DPT/HIB Unknown Completed [facility] Hep B, Adol or Pedi Dosage Unknown Completed [facility] Hib-HbOC Unknown Completed [facility] Meningococcal Polysaccharide (groups A, C, Y and W-135) conjugate vaccine (MCV4P) Unknown Completed [facility] MMR Unknown Completed [facility] IPV Unknown Completed [facility] Poliovirus, Live, Oral, Trivalent Unknown Completed [facility] Varicella (varivax)(chicken pox) Unknown Completed [facility] TDAP Unknown Completed [facility] HPV9 Unknown Completed [facility] Influenza Virus Vaccine Quad .5 mL IM 6+ MO (FLUZONE/FLULAVAL/FL UARIX) Unknown Completed [facility] DTaP, Unspecified Formulation Unknown Completed [facility] DPT/HIB Unknown Completed [facility] Hep B, Adol or Pedi Dosage Unknown Completed [facility] Hib-HbOC Unknown Completed [facility] Meningococcal Polysaccharide (groups A, C, Y and W-135) conjugate vaccine (MCV4P) Unknown Completed [facility] MMR Unknown Completed [facility] IPV Unknown Completed [facility] Poliovirus, Live, Oral, Trivalent Unknown Completed [facility] Varicella (varivax)(chicken pox) Unknown Completed [facility] TDAP Unknown Completed [facility] HPV9 Unknown Completed [facility] Influenza Virus Vaccine Quad .5 mL IM 6+ MO (FLUZONE/FLULAVAL/FL UARIX) Unknown Completed [facility] DTaP, Unspecified Formulation Unknown Completed [facility] DPT/HIB Unknown Completed [facility] Hep B, Adol or Pedi Dosage Unknown Completed [facility] Hib-HbOC Unknown Completed [facility] Meningococcal Polysaccharide (groups A, C, Y and W-135) conjugate vaccine (MCV4P) Unknown Completed [facility] MMR Unknown Completed [facility] IPV Unknown Completed [facility] Poliovirus, Live, Oral, Trivalent Unknown Completed [facility] Varicella (varivax)(chicken pox) Unknown Completed [facility] TDAP Unknown Completed [facility] HPV9 Unknown Completed [facility] Influenza Virus Vaccine Quad .5 mL IM 6+ MO (FLUZONE/FLULAVAL/FL UARIX) Unknown Completed [facility] DTaP, Unspecified Formulation Unknown Completed [facility] DPT/HIB Unknown Completed [facility] Hep B, Adol or Pedi Dosage Unknown Completed [facility] Hib-HbOC Unknown Completed [facility] Meningococcal Polysaccharide (groups A, C, Y and W-135) conjugate vaccine (MCV4P) Unknown Completed [facility] MMR Unknown Completed [facility] IPV Unknown Completed [facility] Poliovirus, Live, Oral, Trivalent Unknown Completed [facility] Varicella (varivax)(chicken pox) Unknown Completed [facility] TDAP Unknown Completed [facility] HPV9 Unknown Completed [facility] Influenza Virus Vaccine Quad .5 mL IM 6+ MO (FLUZONE/FLULAVAL/FL UARIX) Unknown Completed [facility] DTaP, Unspecified Formulation Unknown Completed [facility] DPT/HIB Unknown Completed [facility] Hep B, Adol or Pedi Dosage Unknown Completed [facility] Hib-HbOC Unknown Completed [facility] Meningococcal Polysaccharide (groups A, C, Y and W-135) conjugate vaccine (MCV4P) Unknown Completed [facility] MMR Unknown Completed [facility] IPV Unknown Completed [facility] Poliovirus, Live, Oral, Trivalent Unknown Completed [facility] Varicella (varivax)(chicken pox) Unknown Completed [facility] TDAP Unknown Completed [facility] HPV9 Unknown Completed [facility] Influenza Virus Vaccine Quad .5 mL IM 6+ MO (FLUZONE/FLULAVAL/FL UARIX) Unknown Completed [facility] DTaP, Unspecified Formulation Unknown Completed [facility] DPT/HIB Unknown Completed [facility] Hep B, Adol or Pedi Dosage Unknown Completed [facility] Hib-HbOC Unknown Completed [facility] Meningococcal Polysaccharide (groups A, C, Y and W-135) conjugate vaccine (MCV4P) Unknown Completed [facility] MMR Unknown Completed [facility] IPV Unknown Completed [facility] Poliovirus, Live, Oral, Trivalent Unknown Completed [facility] Varicella (varivax)(chicken pox) Unknown Completed [facility] TDAP Unknown Completed [facility] HPV9 Unknown Completed [facility] Influenza Virus Vaccine Quad .5 mL IM 6+ MO (FLUZONE/FLULAVAL/FL UARIX) Unknown Completed [facility] DTaP, Unspecified Formulation Unknown Completed [facility] DPT/HIB Unknown Completed [facility] Hep B, Adol or Pedi Dosage Unknown Completed [facility] Hib-HbOC Unknown Completed [facility] Meningococcal Polysaccharide (groups A, C, Y and W-135) conjugate vaccine (MCV4P) Unknown Completed [facility] MMR Unknown Completed [facility] IPV Unknown Completed [facility] Poliovirus, Live, Oral, Trivalent Unknown Completed [facility] Varicella (varivax)(chicken pox) Unknown Completed [facility] TDAP Unknown Completed [facility] HPV9 Unknown Completed [facility] Influenza Virus Vaccine Quad .5 mL IM 6+ MO (FLUZONE/FLULAVAL/FL UARIX) Unknown Completed [facility] DTaP, Unspecified Formulation Unknown Completed [facility] DPT/HIB Unknown Completed [facility] Hep B, Adol or Pedi Dosage Unknown Completed [facility] Hib-HbOC Unknown Completed [facility] Meningococcal Polysaccharide (groups A, C, Y and W-135) conjugate vaccine (MCV4P) Unknown Completed [facility] MMR Unknown Completed [facility] IPV Unknown Completed [facility] Poliovirus, Live, Oral, Trivalent Unknown Completed [facility] Varicella (varivax)(chicken pox) Unknown Completed [facility] TDAP Unknown Completed [facility] HPV9 Unknown Completed [facility] Influenza Virus Vaccine Quad .5 mL IM 6+ MO (FLUZONE/FLULAVAL/FL UARIX) Unknown Completed [facility] DTaP, Unspecified Formulation Unknown Completed [facility] DPT/HIB Unknown Completed [facility] Hep B, Adol or Pedi Dosage Unknown Completed [facility] Hib-HbOC Unknown Completed [facility] Meningococcal Polysaccharide (groups A, C, Y and W-135) conjugate vaccine (MCV4P) Unknown Completed [facility] MMR Unknown Completed [facility] IPV Unknown Completed [facility] Poliovirus, Live, Oral, Trivalent Unknown Completed [facility] Varicella (varivax)(chicken pox) Unknown Completed [facility] TDAP Unknown Completed [facility] HPV9 Unknown Completed [facility] Influenza Virus Vaccine Quad .5 mL IM 6+ MO (FLUZONE/FLULAVAL/FL UARIX) Unknown Completed [facility] DTaP, Unspecified Formulation Unknown Completed [facility] DPT/HIB Unknown Completed [facility] Hep B, Adol or Pedi Dosage Unknown Completed [facility] Hib-HbOC Unknown Completed [facility] Meningococcal Polysaccharide (groups A, C, Y and W-135) conjugate vaccine (MCV4P) Unknown Completed [facility] MMR Unknown Completed [facility] IPV Unknown Completed [facility] Poliovirus, Live, Oral, Trivalent Unknown Completed [facility] Varicella (varivax)(chicken pox) Unknown Completed [facility] TDAP Unknown Completed [facility] HPV9 Unknown Completed [facility] Influenza Virus Vaccine Quad .5 mL IM 6+ MO (FLUZONE/FLULAVAL/FL UARIX) Unknown Completed [facility] DTaP, Unspecified Formulation Unknown Completed [facility] DPT/HIB Unknown Completed [facility] Hep B, Adol or Pedi Dosage Unknown Completed [facility] Hib-HbOC Unknown Completed [facility] Meningococcal Polysaccharide (groups A, C, Y and W-135) conjugate vaccine (MCV4P) Unknown Completed [facility] MMR Unknown Completed [facility] IPV Unknown Completed [facility] [facility] Poliovirus, Live, Oral, Trivalent Unknown Completed [facility] Varicella (varivax)(chicken pox) Unknown Completed [facility] TDAP Unknown Completed [facility] HPV9 Unknown Completed [facility] Influenza Virus Vaccine Quad .5 mL IM 6+ MO (FLUZONE/FLULAVAL/FL UARIX) Unknown Completed [facility] DTaP, Unspecified Formulation Unknown Completed [facility] DPT/HIB Unknown Completed [facility] Hep B, Adol or Pedi Dosage Unknown Completed [facility] Hib-HbOC Unknown Completed [facility] Meningococcal Polysaccharide (groups A, C, Y and W-135) conjugate vaccine (MCV4P) Unknown Completed [facility] MMR Unknown Completed [facility] IPV Unknown Completed [facility] Poliovirus, Live, Oral, Trivalent Unknown Completed [facility] Varicella (varivax)(chicken pox) Unknown Completed [facility] TDAP Unknown Completed [facility] HPV9 Unknown Completed [facility] Influenza Virus Vaccine Quad .5 mL IM 6+ MO (FLUZONE/FLULAVAL/FL UARIX) Unknown Completed [facility] DTaP, Unspecified Formulation Unknown Completed [facility] DPT/HIB Unknown Completed [facility] Hep B, Adol or Pedi Dosage Unknown Completed [facility] Hib-HbOC Unknown Completed [facility] Meningococcal Polysaccharide (groups A, C, Y and W-135) conjugate vaccine (MCV4P) Unknown Completed [facility] MMR Unknown Completed [facility] IPV Unknown Completed [facility] Poliovirus, Live, Oral, Trivalent Unknown Completed [facility] Varicella (varivax)(chicken pox) Unknown Completed [facility] TDAP Unknown Completed [facility] HPV9 Unknown Completed [facility] Influenza Virus Vaccine Quad .5 mL IM 6+ MO (FLUZONE/FLULAVAL/FL UARIX) Unknown Completed [facility] DTaP, Unspecified Formulation Unknown Completed [facility] DPT/HIB Unknown Completed [facility] Hep B, Adol or Pedi Dosage Unknown Completed [facility] Hib-HbOC Unknown Completed [facility] Meningococcal Polysaccharide (groups A, C, Y and W-135) conjugate vaccine (MCV4P) Unknown Completed [facility] MMR Unknown Completed [facility] IPV Unknown Completed [facility] Poliovirus, Live, Oral, Trivalent Unknown Completed [facility] Varicella (varivax)(chicken pox) Unknown Completed [facility] TDAP Unknown Completed [facility] HPV9 Unknown Completed [facility] Influenza Virus Vaccine Quad .5 mL IM 6+ MO (FLUZONE/FLULAVAL/FL UARIX) Unknown Completed [facility] DTaP, Unspecified Formulation Unknown Completed [facility] DPT/HIB Unknown Completed [facility] Hep B, Adol or Pedi Dosage Unknown Completed [facility] Hib-HbOC Unknown Completed [facility] Meningococcal Polysaccharide (groups A, C, Y and W-135) conjugate vaccine (MCV4P) Unknown Completed [facility] MMR Unknown Completed [facility] IPV Unknown Completed [facility] Poliovirus, Live, Oral, Trivalent Unknown Completed [facility] Varicella (varivax)(chicken pox) Unknown Completed [facility] DPT/HIB Unknown Completed [facility] Meningococcal Polysaccharide (groups A, C, Y and W-135) conjugate vaccine (MCV4P) Unknown Completed [facility] Poliovirus, Live, Oral, Trivalent Unknown Completed [facility] TDAP Unknown Completed [facility] HPV9 Unknown Completed [facility] Influenza Virus Vaccine Quad .5 mL IM 6+ MO (FLUZONE/FLULAVAL/FL UARIX) Unknown Completed [facility] DTaP, Unspecified Formulation Unknown Completed [facility] Hep B, Adol or Pedi Dosage Unknown Completed [facility] Hib-HbOC Unknown Completed [facility] MMR Unknown Completed [facility] IPV Unknown Completed [facility] Varicella (varivax)(chicken pox) Unknown Completed [facility] TDAP Unknown Completed [facility] HPV9 Unknown Completed [facility] Influenza Virus Vaccine Quad .5 mL IM 6+ MO (FLUZONE/FLULAVAL/FL UARIX) Unknown Completed [facility] DTaP, Unspecified Formulation Unknown Completed [facility] DPT/HIB Unknown Completed [facility] Hep B, Adol or Pedi Dosage Unknown Completed [facility] Hib-HbOC Unknown Completed [facility] Meningococcal Polysaccharide (groups A, C, Y and W-135) conjugate vaccine (MCV4P) Unknown Completed [facility] MMR Unknown Completed [facility] IPV Unknown Completed [facility] Poliovirus, Live, Oral, Trivalent Unknown Completed [facility] Varicella (varivax)(chicken pox) Unknown Completed [facility] TDAP Unknown Completed [facility] HPV9 Unknown Completed [facility] Influenza Virus Vaccine Quad .5 mL IM 6+ MO (FLUZONE/FLULAVAL/FL UARIX) Unknown Completed [facility] DTaP, Unspecified Formulation Unknown Completed [facility] DPT/HIB Unknown Completed [facility] Hep B, Adol or Pedi Dosage Unknown Completed [facility] Hib-HbOC Unknown Completed [facility] Meningococcal Polysaccharide (groups A, C, Y and W-135) conjugate vaccine (MCV4P) Unknown Completed [facility] MMR Unknown Completed [facility] IPV Unknown Completed [facility] Poliovirus, Live, Oral, Trivalent Unknown Completed [facility] Varicella (varivax)(chicken pox) Unknown Completed [facility] TDAP Unknown Completed [facility] HPV9 Unknown Completed [facility] Influenza Virus Vaccine Quad .5 mL IM 6+ MO (FLUZONE/FLULAVAL/FL UARIX) Unknown Completed [facility] DTaP, Unspecified Formulation Unknown Completed [facility] DPT/HIB Unknown Completed [facility] Hep B, Adol or Pedi Dosage Unknown Completed [facility] Hib-HbOC Unknown Completed [facility] Meningococcal Polysaccharide (groups A, C, Y and W-135) conjugate vaccine (MCV4P) Unknown Completed [facility] MMR Unknown Completed [facility] IPV Unknown Completed [facility] Poliovirus, Live, Oral, Trivalent Unknown Completed [facility] Varicella (varivax)(chicken pox) Unknown Completed [facility] TDAP Unknown Completed [facility] HPV9 Unknown Completed [facility] Influenza Virus Vaccine Quad .5 mL IM 6+ MO (FLUZONE/FLULAVAL/FL UARIX) Unknown Completed [facility] DTaP, Unspecified Formulation Unknown Completed [facility] DPT/HIB Unknown Completed [facility] Hep B, Adol or Pedi Dosage Unknown Completed [facility] Hib-HbOC Unknown Completed [facility] Meningococcal Polysaccharide (groups A, C, Y and W-135) conjugate vaccine (MCV4P) Unknown Completed [facility] MMR Unknown Completed [facility] IPV Unknown Completed [facility] Poliovirus, Live, Oral, Trivalent Unknown Completed [facility] Varicella (varivax)(chicken pox) Unknown Completed [facility] DPT/HIB Unknown Completed [facility] Meningococcal Polysaccharide (groups A, C, Y and W-135) conjugate vaccine (MCV4P) Unknown Completed [facility] Poliovirus, Live, Oral, Trivalent Unknown Completed [facility] TDAP Unknown Completed [facility] HPV9 Unknown Completed [facility] Influenza Virus Vaccine Quad .5 mL IM 6+ MO (FLUZONE/FLULAVAL/FL UARIX) Unknown Completed [facility] DTaP, Unspecified Formulation Unknown Completed [facility] Hep B, Adol or Pedi Dosage Unknown Completed [facility] Hib-HbOC Unknown Completed [facility] MMR Unknown Completed [facility] IPV Unknown Completed [facility] Varicella (varivax)(chicken pox) Unknown Completed [facility] DTaP, Unspecified Formulation Unknown Completed [facility] DPT/HIB Unknown Completed [facility] Hep B, Adol or Pedi Dosage Unknown Completed [facility] Hib-HbOC Unknown Completed [facility] Meningococcal Polysaccharide (groups A, C, Y and W-135) conjugate vaccine (MCV4P) Unknown Completed [facility] MMR Unknown Completed [facility] IPV Unknown Completed [facility] Poliovirus, Live, Oral, Trivalent Unknown Completed [facility] Varicella (varivax)(chicken pox) Unknown Completed [facility] TDAP Unknown Completed [facility] HPV9 Unknown Completed [facility] Influenza Virus Vaccine Quad .5 mL IM 6+ MO (FLUZONE/FLULAVAL/FL UARIX) Unknown Completed [facility] TDAP Unknown Completed [facility] HPV9 Unknown Completed [facility] Influenza Virus Vaccine Quad .5 mL IM 6+ MO (FLUZONE/FLULAVAL/FL UARIX) Unknown Completed [facility] DTaP, Unspecified Formulation Unknown Completed [facility] DPT/HIB Unknown Completed [facility] Hep B, Adol or Pedi Dosage Unknown Completed [facility] Hib-HbOC Unknown Completed [facility] Meningococcal Polysaccharide (groups A, C, Y and W-135) conjugate vaccine (MCV4P) Unknown Completed [facility] MMR Unknown Completed [facility] IPV Unknown Completed [facility] Poliovirus, Live, Oral, Trivalent Unknown Completed [facility] Varicella (varivax)(chicken pox) Unknown Completed [facility] TDAP Unknown Completed [facility] HPV9 Unknown Completed [facility] Influenza Virus Vaccine Quad .5 mL IM 6+ MO (FLUZONE/FLULAVAL/FL UARIX) Unknown Completed [facility] DTaP, Unspecified Formulation Unknown Completed [facility] DPT/HIB Unknown Completed [facility] Hep B, Adol or Pedi Dosage Unknown Completed [facility] Hib-HbOC Unknown Completed [facility] Meningococcal Polysaccharide (groups A, C, Y and W-135) conjugate vaccine (MCV4P) Unknown Completed [facility] MMR Unknown Completed [facility] IPV Unknown Completed [facility] Poliovirus, Live, Oral, Trivalent Unknown Completed [facility] Varicella (varivax)(chicken pox) Unknown Completed [facility] TDAP Unknown Completed [facility] HPV9 Unknown Completed [facility] Influenza Virus Vaccine Quad .5 mL IM 6+ MO (FLUZONE/FLULAVAL/FL UARIX) Unknown Completed [facility] DTaP, Unspecified Formulation Unknown Completed [facility] DPT/HIB Unknown Completed [facility] Hep B, Adol or Pedi Dosage Unknown Completed [facility] Hib-HbOC Unknown Completed [facility] Meningococcal Polysaccharide (groups A, C, Y and W-135) conjugate vaccine (MCV4P) Unknown Completed [facility] MMR Unknown Completed [facility] IPV Unknown Completed [facility] Poliovirus, Live, Oral, Trivalent Unknown Completed [facility] Varicella (varivax)(chicken pox) Unknown Completed [facility] DPT/HIB Unknown Completed [facility] Meningococcal Polysaccharide (groups A, C, Y and W-135) conjugate vaccine (MCV4P) Unknown Completed [facility] Poliovirus, Live, Oral, Trivalent Unknown Completed [facility] TDAP Unknown Completed [facility] HPV9 Unknown Completed [facility] Influenza Virus Vaccine Quad .5 mL IM 6+ MO (FLUZONE/FLULAVAL/FL UARIX) Unknown Completed [facility] DTaP, Unspecified Formulation Unknown Completed [facility] Hep B, Adol or Pedi Dosage Unknown Completed [facility] Hib-HbOC Unknown Completed [facility] MMR Unknown Completed [facility] IPV Unknown Completed [facility] Varicella (varivax)(chicken pox) Unknown Completed [facility] Vital Signs Vital Name Observation Time Observation Value Comments S ource Systolic blood pressure 2023-12-04 19:21:00 108 mm[Hg] [facility] Diastolic blood pressure 2023-12-04 19:21:00 69 mm[Hg] [facility] Heart rate 2023-12-04 19:21:00 75 /min [facility] Body temperature 2023-12-04 19:21:00 36.78 Mariella [facility] Respiratory rate 2023-12-04 19:21:00 18 /min [facility] Body height 2023-12-04 19:21:00 167.6 cm [facility] Body weight 2023-12-04 19:21:00 73.483 kg [facility] BMI 2023-12-04 19:21:00 26.15 kg/m2 [facility] Systolic blood pressure 2023-11-13 22:30:00 130 mm[Hg] [facility] Diastolic blood pressure 2023-11-13 22:30:00 80 mm[Hg] [facility] Heart rate 2023-11-13 22:30:00 93 /min [facility] Body temperature 2023-11-13 22:30:00 36.11 Mariella [facility] Body height 2023-11-13 22:30:00 170.2 cm [facility] Body weight 2023-11-13 22:30:00 72.303 kg [facility] BMI 2023-11-13 22:30:00 24.97 kg/m2 [facility] Systolic blood pressure 2023-11-06 21:08:00 110 mm[Hg] [facility] Diastolic blood pressure 2023-11-06 21:08:00 68 mm[Hg] [facility] Heart rate 2023-11-06 21:08:00 75 /min [facility] Body temperature 2023-11-06 21:08:00 36.61 Mariella [facility] Respiratory rate 2023-11-06 21:08:00 17 /min [facility] Body height 2023-11-06 21:08:00 170.2 cm [facility] Body weight 2023-11-06 21:08:00 75.116 kg [facility] BMI 2023-11-06 21:08:00 25.94 kg/m2 [facility] Systolic blood pressure 2023-10-25 19:24:00 106 mm[Hg] [facility] Diastolic blood pressure 2023-10-25 19:24:00 71 mm[Hg] [facility] Heart rate 2023-10-25 19:24:00 87 /min [facility] Body temperature 2023-10-25 19:24:00 36.72 Mariella [facility] Respiratory rate 2023-10-25 19:24:00 16 /min [facility] Body height 2023-10-25 19:24:00 170.2 cm [facility] Body weight 2023-10-25 19:24:00 75.297 kg [facility] BMI 2023-10-25 19:24:00 26.00 kg/m2 [facility] Systolic blood pressure 2023-09-27 15:00:00 106 mm[Hg] [facility] Diastolic blood pressure 2023-09-27 15:00:00 64 mm[Hg] [facility] Heart rate 2023-09-27 15:00:00 61 /min [facility] Body temperature 2023-09-27 15:00:00 36.33 Mariella [facility] Respiratory rate 2023-09-27 15:00:00 18 /min [facility] Oxygen saturation in Arterial blood by Pulse oximetry 2023-09-27 15:00:00 98 /min [facility] Body height 2023-09-25 14:00:00 170.2 cm [facility] Body weight 2023-09-25 14:00:00 80.74 kg [facility] BMI 2023-09-25 14:00:00 27.88 kg/m2 [facility] Systolic blood pressure 2023-09-20 20:39:00 104 mm[Hg] [facility] Diastolic blood pressure 2023-09-20 20:39:00 66 mm[Hg] [facility] Heart rate 2023-09-20 20:39:00 89 /min [facility] Respiratory rate 2023-09-20 20:39:00 18 /min [facility] Body height 2023-09-20 20:39:00 170.2 cm [facility] Body weight 2023-09-20 20:39:00 80.287 kg [facility] BMI 2023-09-20 20:39:00 27.72 kg/m2 [facility] Systolic blood pressure 2023-09-13 16:29:00 107 mm[Hg] [facility] Diastolic blood pressure 2023-09-13 16:29:00 72 mm[Hg] [facility] Heart rate 2023-09-13 16:29:00 98 /min [facility] Respiratory rate 2023-09-13 16:29:00 18 /min [facility] Body height 2023-09-13 16:29:00 170.2 cm [facility] Body weight 2023-09-13 16:29:00 77.565 kg [facility] BMI 2023-09-13 16:29:00 26.78 kg/m2 [facility] Systolic blood pressure 2023-08-23 19:08:00 126 mm[Hg] [facility] Diastolic blood pressure 2023-08-23 19:08:00 84 mm[Hg] [place] [facility] Heart rate 2023-08-23 19:08:00 99 /min [facility] 2023-08-23 19:08:00 18 /min [facility] Body height 2023-08-23 19:08:00 170.2 cm [facility] 2023-08-23 19:08:00 78.019 [facility] 2023-08-23 19:08:00 26.94 kg/m2 [facility] Sy[facility]olic blood pressure 2023-08-09 18:33:00 120 mm[Hg] [place] [facility] Diastolic blood pressure 2023-08-09 18:33:00 70 mm[Hg] [facility] Heart rate 2023-08-09 18:33:00 71 /min [facility] Res[facility] 2023-08-09 18:33:00 18 /min [facility] Body height 2023-08-09 18:33:00 170.2 cm [facility] 2023-08-09 18:33:00 78.926 kg [facility] BMI 2023-08-09 18:33:00 27.25 kg/m2 [facility] Systolic blood pressure 2023-07-19 17:08:00 126 mm[Hg] [facility] Diastolic blood pressure 2023-07-19 17:08:00 82 mm[Hg] [facility] Heart rate 2023-07-19 17:08:00 94 /min [facility] Respiratory [facility] 2023-07-19 17:08:00 18 /min [facility] Body height 2023-07-19 17:08:00 170.2 cm [facility] 2023-07-19 17:08:00 79.379 [facility] BMI 2023-07-19 17:08:00 27.41 kg/m2 [facility] Systolic blood pressure 2023-06-14 16:26:00 114 mm[Hg] [place] [facility] Diastolic blood pressure 2023-06-14 16:26:00 75 mm[Hg] [facility] Heart rate 2023-06-14 16:26:00 75 /min [facility] Respiratory rate 2023-06-14 16:26:00 18 /min [facility] Body height 2023-06-14 16:26:00 170.2 cm [facility] Body weight 2023-06-14 16:26:00 75.297 kg [facility] BMI 2023-06-14 16:26:00 26.00 kg/m2 [facility] Systolic blood pressure 2023-05-17 16:06:00 119 mm[Hg] [facility] Diastolic blood pressure 2023-05-17 16:06:00 73 mm[Hg] [facility] Heart rate 2023-05-17 16:06:00 116 /min [facility] Respiratory rate 2023-05-17 16:06:00 18 /min [facility] Body height 2023-05-17 16:06:00 170.2 cm [facility] Body weight 2023-05-17 16:06:00 73.029 kg [facility] BMI 2023-05-17 16:06:00 25.22 kg/m2 [facility] Systolic blood pressure 2023-05-07 01:50:00 115 mm[Hg] [facility] Diastolic blood pressure 2023-05-07 01:50:00 70 mm[Hg] [facility] Heart rate 2023-05-07 01:50:00 93 /min [facility] Body temperature 2023-05-07 01:50:00 37.28 Mariella [facility] Respiratory rate 2023-05-07 01:50:00 16 /min [facility] Body height 2023-05-07 01:50:00 170.2 cm [facility] Body weight 2023-05-07 01:50:00 68.947 kg [facility] BMI 2023-05-07 01:50:00 23.81 kg/m2 [facility] Oxygen saturation in Arterial blood by Pulse oximetry 2023-05-07 01:50:00 96 /min [facility] Systolic blood pressure 2023-04-19 15:37:00 125 mm[Hg] [facility] Diastolic blood pressure 2023-04-19 15:37:00 81 mm[Hg] [facility] Heart rate 2023-04-19 15:37:00 97 /min [facility] Body height 2023-04-19 15:37:00 170.2 cm [facility] Body weight 2023-04-19 15:37:00 71.487 kg [facility] BMI 2023-04-19 15:37:00 24.68 kg/m2 [facility] Systolic blood pressure 2023-03-29 19:30:00 113 mm[Hg] [facility] Diastolic blood pressure 2023-03-29 19:30:00 69 mm[Hg] [facility] Heart rate 2023-03-29 19:30:00 88 /min [facility] Respiratory rate 2023-03-29 19:30:00 18 /min [facility] Body weight 2023-03-29 19:30:00 69.4 kg [facility] BMI 2023-03-29 19:30:00 23.96 kg/m2 [facility] Systolic blood pressure 2023-03-22 13:59:00 111 mm[Hg] [facility] Diastolic blood pressure 2023-03-22 13:59:00 73 mm[Hg] [facility] Heart rate 2023-03-22 13:59:00 73 /min [facility] Body temperature 2023-03-22 13:59:00 36.56 Mariella [facility] Body height 2023-03-22 13:59:00 170.2 cm [facility] Body weight 2023-03-22 13:59:00 70.897 kg [facility] BMI 2023-03-22 13:59:00 24.48 kg/m2 [facility] Systolic blood pressure 2023-03-07 02:54:00 125 mm[Hg] [facility] Diastolic blood pressure 2023-03-07 02:54:00 84 mm[Hg] [facility] Heart rate 2023-03-07 02:54:00 107 /min [facility] Body temperature 2023-03-07 02:54:00 37 Mariella [facility] Respiratory rate 2023-03-07 02:54:00 18 /min [facility] Body height 2023-03-07 02:54:00 170.2 cm [facility] Body weight 2023-03-07 02:54:00 74.844 kg [facility] BMI 2023-03-07 02:54:00 25.84 kg/m2 [facility] Oxygen saturation in Arterial blood by Pulse oximetry 2023-03-07 02:54:00 97 /min [facility] Systolic blood pressure 2022-12-20 19:25:00 121 mm[Hg] [facility] Diastolic blood pressure 2022-12-20 19:25:00 73 mm[Hg] [facility] Heart rate 2022-12-20 19:25:00 91 /min [facility] Body temperature 2022-12-20 19:25:00 37 Mariella [facility] Respiratory rate 2022-12-20 19:25:00 18 /min [facility] Body height 2022-12-20 19:25:00 170.2 cm [facility] Body weight 2022-12-20 19:25:00 72.15 kg [facility] BMI 2022-12-20 19:25:00 24.91 kg/m2 [facility] Systolic blood pressure 2022-07-18 19:19:00 129 mm[Hg] [facility] Diastolic blood pressure 2022-07-18 19:19:00 87 mm[Hg] [facility] Heart rate 2022-07-18 19:19:00 101 /min [facility] Body temperature 2022-07-18 19:19:00 36.67 Mariella [facility] Respiratory rate 2022-07-18 19:19:00 18 /min [facility] Body height 2022-07-18 19:19:00 170.2 cm General acute hospital Body weight 2022-07-18 19:19:00 73.71 kg General acute hospital BMI 2022-07-18 19:19:00 25.45 kg/m2 General acute hospital Systolic blood pressure 2021-12-14 13:58:00 115 mm[Hg] [facility] Diastolic blood pressure 2021-12-14 13:58:00 65 mm[Hg] [place] [facility] Heart rate 2021-12-14 13:58:00 82 /min [facility] Body temperature 2021-12-14 13:58:00 36.5 Mariella [facility] Respiratory rate 2021-12-14 13:58:00 16 /min [facility] Body height 2021-12-14 13:58:00 170.2 cm General acute hospital Body weight 2021-12-14 13:58:00 74.39 kg General acute hospital BMI 2021-12-14 13:58:00 25.69 kg/m2 [facility] acute hospital Procedures Procedure Date / Time Performed Performing Clinician Source CONSENT FOR CONTRACEPTION 2023-11-06 06:01:00 Doctor Unassigned, [facility] POCT TEST 2023-11-06 00:00:00 Marcia Ocampo [facility] CBC WITH DIFF 2023-09-26 10:41:00 Marcia Ocmapo [facility] POCT GLUCOSE (AUTOMATED) 2023-09-26 03:25:00 Mracia Ocampo [facility] POCT GLUCOSE (AUTOMATED) 2023-09-26 00:48:00 Marcia Ocampo [facility] POCT GLUCOSE (AUTOMATED) 2023-09-25 19:41:00 Marcia Ocampo [facility] CENTRAL NEURAXIAL BLOCK 2023-09-25 16:25:00 Sachin Garza [facility] POCT GLUCOSE (AUTOMATED) 2023-09-25 15:03:00 [facility]ULIN [facility] 2023-09-25 14:08:00 [facility] IMMUNE GLOBULIN 2023-09-25 14:08:00 DamarisMarcia [facility] CBC WITH DIFF 2023-09-24 18:37:00 DamarisMarcia [facility] ASSIGNMENT OF BENEFITS 2023-09-24 18:12:12 Docto r Unassigned, [facility] CONSENT/REFUSAL FOR DIAGNOSIS AND TREATMENT 2023-09-24 18:11:48 Doctor Unassigned, [facility] PHYSICIAN ORDERS 2023-09-20 06:01:00 Doctor Unas signed, [facility] CBC WITH DIFF 2023-09-13 17:53:00 DamarisMarcia [facility] DSU PRE-OP 2023-09-13 06:01:00 Doctor Unass igned, [facility] POCT URINALYSIS W/O SPECIFIC GRAVITY 2023-09-13 00:00:00 [facility]IRD [facility]IMESTER ULTRASOUND 2023-09-12 20:34:00 Damaris [facility] POCT URINALYSIS W/O SPECIFIC GRAVITY 2023-08-23 00:00:00 Damaris [facility] TDAP VACCINE, >11 YRS, IM 2023-08-09 18:28:34 Damaris [facility] SECOND AND THIRD TRIMESTER ULTRASOUND 2023-08-09 15:44:00 Damaris [facility] POCT URINALYSIS W/O SPECIFIC GRAVITY 2023-08-09 00:00:00 Damaris [facility] POCT URINALYSIS W/O SPECIFIC GRAVITY 2023-07-19 00:00:00 Damaris [facility] POCT URINALYSIS W/O SPECIFIC GRAVITY 2023-06-14 00:00:00 Damaris [facility] SECOND AND THIRD TRIMESTER ULTRASOUND 2023-05-29 17:25:00 Damaris [facility] SECOND AND THIRD TRIMESTER ULTRASOUND 2023-05-29 17:10:00 Marcia Ocampo [facility] POCT URINALYSIS W/O SPECIFIC GRAVITY 2023-05-17 00:00:00 Marcia Ocampo [facility] ASSIGNMENT OF BENEFITS 2023-05-07 03:00:45 Docto r Unassigned, [facility] NV INCISION & DRAINAGE ABSCESS COMPLICATED/MULTIPLE 2023-05-07 02:54:06 Atul Sena [facility] CONSENT/REFUSAL FOR DIAGNOSIS AND TREATMENT 2023-05-07 01:48:05 Doctor Unassigned, [facility] POCT URINALYSIS W/O SPECIFIC GRAVITY 2023-04-19 00:00:00 Marcia Ocampo [facility] GLYCOSYLATED HEMOGLOBIN (A1C) 2023-03-27 16:12:00 Marcia Ocampo [facility] <14 WEEKS US LIMITED 2023-03-22 15:38:34 Damaris Marcia [facility] SCANNED LAB RESULTS 2023-03-22 05:01:00 Doctor Leisa pierce, [facility] POCT URINALYSIS W/O SPECIFIC GRAVITY 2023-03-22 00:00:00 Damaris Marcia [facility] URINALYSIS 2023-03-07 03:08:00 Ramirez Sanchez [facility] POCT TEST 2023-03-07 03:07:00 Ramirez Sanchez [facility] NOTICE OF PRIVACY PRACTICES 2023-03-07 02:49:46 Doctor Unassigned, [facility] CONSENT/REFUSAL FOR DIAGNOSIS AND TREATMENT 2023-03-07 02:47:26 Doctor Unassigned, [facility] ASSIGNMENT OF BENEFITS 2022-12-20 19:06:39 Docto r Unassigned, [facility] FLU VACC ([id number]), 6+ MONTHS, IM, QUAD 2021-12-14 14:41:01 German Back [facility] Encounters Start Date/Time End Date/Time Encounter Type Admission Type Attending Clinicians Care Facility Care Department Encounter ID Source 2021-07-06 18:46:07 Emergency [facility] [id number] [facility] 2024-01-31 08:00:00 2024-01-31 08:00:00 Outpatient R MARCIA OCAMPO [facility] [id number] [facility] 2023-12-20 11:30:00 2023-12-20 11:30:00 Outpatient R CARITO PICHARDO [facility] [id number] [facility] 2023-12-18 13:30:00 2023-12-18 13:30:00 Outpatient R RAFICARITO CHU [facility] [id number] [facility] 2023-12-04 14:00:00 2023-12-04 14:37:15 Outpatient R RAFICARITO CHU [facility] [id number] [facility] 2023-12-04 14:00:00 2023-12-04 14:37:15 Office Visit MelvinaCarito [facility] 1.2.840.114 350.1.13.10 4.2.7.2.686 [id number] 134 [id number] [facility] 2023-12-03 14:00:00 2023-12-03 14:00:00 Outpatient R CARITO PICHARDO [facility] [id number] [facility] 2023-11-29 13:45:00 2023-11-29 13:45:00 Outpatient R MARCIA OCAMPO [facility] [id number] [facility] 2023-11-19 00:00:00 2023-11-19 00:00:00 Refill RafiCarito chu [facility] 1.2.840.114 350.1.13.10 4.2.7.2.686 [id number] 134 [id number] [facility] 2023-11-13 16:00:00 2023-11-13 16:44:43 Outpatient MARCIA STEWART [facility] [id number] [facility] 2023-11-13 16:00:00 2023-11-13 16:44:43 Office Visit Marcia Ocampo [facility] 1.2.840.114 350.1.13.10 4.2.7.2.686 [id number] 134 [id number] [facility] 2023-11-13 00:00:00 2023-11-13 00:00:00 Telephone Marcia Ocampo [facility] BUILDING 1.2.840.114 350.1.13.10 4.2.7.2.686 [id number] [facility] 2023-11-06 15:15:00 2023-11-06 15:36:47 Outpatient R MARCIA OCAMPO [facility] [id number] [facility] 2023-11-06 15:15:00 2023-11-06 15:36:47 Office Visit Marcia Ocampo [facility] 1.2.840.114 350.1.13.10 4.2.7.2.686 [id number] 134 [id number] [facility] 2023-11-06 00:00:00 2023-11-06 00:00:00 Orders Only Doctor Unassigned, [facility] 1.2.840.114 350.1.13.10 4.2.7.2.686 [id number] [facility] 2023-11-01 00:00:00 2023-11-01 00:00:00 Telephone DamarisMarcia [facility] 1.2.840.114 350.1.13.10 4.2.7.2.686 [id number] 134 [id number] [facility] 2023-10-25 13:15:00 2023-10-25 13:41:03 Outpatient R MARCIA OCAMPO [facility] [id number] [facility] 2023-10-25 13:15:00 2023-10-25 13:41:03 Routine Visit OcampoMarcia [facility] 1.2.840.114 350.1.13.10 4.2.7.2.686 [id number] [facility] 2023-10-11 15:15:00 2023-10-11 15:15:00 Outpatient R MARCIA OCAMPO [facility] [id number] [facility] 2023-09-25 06:27:00 2023-09-27 10:00:00 Inpatient P MARCIA OCAMPO [facility] [id number] [facility] 2023-09-25 06:27:00 2023-09-27 10:00:00 Hospital Encounter Marcia Ocampo [facility] 1.2.840.114 350.1.13.10 4.2.7.2.686 [id number] [facility] 2023-09-25 10:31:00 2023-09-26 02:10:00 Anesthesia Event Sachin Garcia, [facility] 1.2.840.114 350.1.13.10 4.2.7.2.686 [id number] [facility] 2023-09-24 12:15:00 2023-09-24 12:30:00 Pollution Control Technician Visit Pob, Adc Lab Main Marcia Ocampo [facility] 1.2.840.114 350.1.13.10 4.2.7.2.686 [id number] [facility] 2023-09-24 12:15:00 2023-09-24 12:15:00 Outpatient R MARCIA OCAMPO [facility] [id number] [facility] 2023-09-20 14:45:00 2023-09-20 15:06:34 Outpatient R MARCIA OCAMPO [facility] [id number] [facility] 2023-09-20 14:45:00 2023-09-20 15:06:34 Routine Visit Marcia Ocampo [facility] 1.2840.114 350.1.13.10 4.2.7.2.686 [id number] 134 [id number] [facility] 2023-09-20 00:00:00 2023-09-20 00:00:00 Orders Only Doctor Unassigned, [facility] 1.2840.114 350.1.13.10 4.2.7.2.686 [id number] [facility] 2023-09-16 09:30:00 2023-09-16 09:30:00 Outpatient R [facility] [id number] [facility] 2023-09-13 11:30:00 2023-09-13 12:27:12 Pollution Control Technician Visit Lab, Ang - Db [facility] 1.2840.114 350.1.13.10 4.2.7.2.686 [id number] [facility] 2023-09-13 11:30:00 2023-09-13 11:30:00 Outpatient R DAMARIS [facility] [id number] [facility] 2023-09-13 10:30:00 2023-09-13 10:44:17 Routine Visit Marcia Ocampo [facility] 1.20.114 350.1.13.10 4.2.7.2.686 [id number] 134 [id number] [facility] 2023-09-13 00:00:00 2023-09-13 00:00:00 Orders Only Doctor Unassigned, [facility] 1.2840.114 350.1.13.10 4.2.7.2.686 [id number] [facility] 2023-09-12 14:45:00 2023-09-12 14:51:15 Outpatient P LEONA PRIETO [facility] [id number] [facility] 2023-09-12 14:45:00 2023-09-12 14:51:15 Pollution Control Technician Visit Ultrasound, Joslyn PrietoLeona Abdi [facility] 1.2.840.114 350.1.13.10 4.2.7.2.686 [id number] [facility] 2023-09-06 15:15:00 2023-09-06 15:15:00 Outpatient R MARCIA OCAMPO [facility] [id number] [facility] 2023-09-06 00:00:00 2023-09-06 00:00:00 [facility]phone [facility] 1.2.840.114 350.1.13.10 4.2.7.2.686 [id number] 134 [id number] [facility] 2023-08-23 13:15:00 2023-08-23 13:20:59 Outpatient R MARCIA OCAMPO [facility] [id number] [facility] 2023-08-23 13:15:00 2023-08-23 13:20:59 Routine Visit Marcia Ocampo [facility] 1.2.840.114 350.1.13.10 4.2.7.2.686 [id number] 134 [id number] [facility] 2023-08-09 12:45:00 2023-08-09 12:48:32 Routine Visit Marcia Ocampo [facility] 1.2.840.114 350.1.13.10 4.2.7.2.686 [id number] 134 [id number] [facility] 2023-08-09 09:30:00 2023-08-09 09:53:53 Outpatient P CONNERLEONA [facility] [id number] [facility] 2023-08-09 09:30:00 2023-08-09 09:53:53 Pollution Control Technician Visit Ultrasound, Joslyn PrietoLeona Ikuvdianesatish [facility] [employer] 1.114 350.1.13.10 4.2.7.2.686 [id number] [facility] 2023-08-08 10:45:00 2023-08-08 11:22:36 Outpatient R DAMARIS [facility] [id number] [facility] 2023-08-08 10:45:00 2023-08-08 11:00:00 Pollution Control Technician Visit Lab, Juan Carlos Ocampo [facility] MEDICAL OFFICE [facility] 1.114 350.1.13.10 4.2.7.2.686 [id number] [facility] 2023-07-22 09:15:00 2023-07-22 09:15:00 Outpatient R [facility] [id number] [facility] 2023-07-19 11:15:00 2023-07-19 11:25:44 Outpatient R DAMARIS [facility] [id number] [facility] 2023-07-19 11:15:00 2023-07-19 11:25:44 [facility]ine [facility] 1.114 350.1.13.10 4.2.7.2.686 [id number] 134 [id number] [facility] 2023-07-10 00:00:00 2023-07-10 00:00:00 Outpatient GC_GCBZW_Ka joea_S [facility] [id number] [facility] 2023-07-09 00:00:00 2023-07-09 00:00:00 Telephone Damaris [facility] 1.114 350.1.13.10 4.2.7.2.686 [id number] [facility] 2023-06-17 09:16:42 2023-06-17 09:16:42 Outpatient [facility] [id number] John Beckman 2023-06-14 11:30:00 2023-06-14 11:40:45 Outpatient R DAMARIS MARCIA [facility] [id number] [facility] 2023-06-14 11:30:00 2023-06-14 11:40:45 [facility]ine [facility] 1..114 350.1.13.10 4.2.7.2.686 [id number] [facility] 2023-05-29 10:45:00 2023-05-29 12:00:00 Pollution Control Technician Visit Ultrasound, Marine Arciniega [facility] 1..114 350.1.13.10 4.2.7.2.686 [id number] [facility] 2023-05-29 10:45:00 2023-05-29 10:45:00 Outpatient P MARINE [facility] [id number] [facility] 2023-05-23 00:00:00 2023-05-23 00:00:00 Telephone [facility] 1..114 350.1.13.10 4.2.7.2.686 [id number] 134 [id number] [facility] 2023-05-17 11:15:00 2023-05-17 11:27:00 Outpatient R DAMARIS [facility] [id number] [facility] 2023-05-17 11:15:00 2023-05-17 11:27:00 Routine Visit [facility] 1..114 350.1.13.10 4.2.7.2.686 [id number] 134 [id number] [facility] 2023-05-07 00:00:00 2023-05-07 00:00:00 Telephone Marcia Ocampo [facility] 1.840.114 350.1.13.10 4.2.7.2.686 [id number] [facility] 2023-05-06 21:13:00 2023-05-06 22:09:00 Emergency X [facility] [id number] [facility] 2023-05-06 21:13:00 2023-05-06 22:09:00 Emergency Atul Sena [facility] 1.840.114 350.1.13.10 4.2.7.2.686 [id number] [facility] 2023-05-06 07:30:00 2023-05-06 07:36:11 Outpatient R DAMARIS MARCIA [facility] [id number] [facility] 2023-05-06 07:30:00 2023-05-06 07:36:11 Pollution Control Technician Visit Lab, [facility] MEDICAL OFF[facility] BUILD[facility] 1..840.114 350.1.13.10 4.2.7.2.686 [id number] [facility] 2023-04-30 07:30:00 2023-04-30 07:30:00 Outpatient R [facility] [id number] [facility] 2023-04-21 00:00:00 2023-04-21 00:00:00 Nurse Triage Marely Ly [facility] 1.840.114 350.1.13.10 4.2.7.2.686 [id number] [facility] 2023-04-19 11:00:00 2023-04-19 11:06:57 [facility].114 350.1.13.10 4.2.7.2.686 [id number] 134 [id number] [facility] 2023-04-19 11:00:00 2023-04-19 11:06:57 Outpatient R OCAMPO [facility] [id number] [facility] 2023-04-01 00:00:00 2023-04-01 00:00:00 [facility] 1.2.114 350.1.13.10 4.2.7.2.686 [id number] 134 [id number] [facility] 2023-03-29 14:00:00 2023-03-29 14:47:28 Nurse Visit Nurse, [facility] 1.84.114 350.1.13.10 4.2.7.2.686 [id number] 134 [id number] [facility] 2023-03-29 14:00:00 2023-03-29 14:47:28 Outpatient R DAMARIS [facility] [id number] [facility] 2023-03-29 00:00:00 2023-03-29 00:00:00 Telephone Leia Everett [facility] 1.114 350.1.13.10 4.2.7.2.686 [id number] 134 [id number] [facility] 2023-03-27 13:00:00 2023-03-27 13:00:00 Pollution Control Technician Visit Lab, Juan Carlos - Juan A Ocampo [facility] BUILDING 1.84.114 350.1.13.10 4.2.7.2.686 [id number] [facility] 2023-03-27 13:00:00 2023-03-27 11:28:09 Outpatient R DAMARIS [facility] [id number] [facility] 2023-03-27 11:00:00 2023-03-27 11:00:00 Outpatient R [facility] [id number] [facility] 2023-03-26 08:00:00 2023-03-26 10:57:52 Outpatient R MARCIA OCAMPO [facility] [id number] [facility] 2023-03-26 08:00:00 2023-03-26 10:57:52 Pollution Control Technician Visit Lab, Ang - Db Marcia Ocampo [facility] MEDICAL OFFICE BUILDING 1.2840.114 350.1.13.10 4.2.7.2.686 [id number] [facility] 2023-03-26 00:00:00 2023-03-26 00:00:00 Case Management Damaris [facility] 1.2840.114 350.1.13.10 4.2.7.2.686 [id number] 134 [id number] [facility] 2023-03-26 00:00:00 2023-03-26 00:00:00 Telephone Damaris [facility] 1.2.840.114 350.1.13.10 4.2.7.2.686 [id number] 134 [id number] [facility] 2023-03-25 00:00:00 2023-03-25 00:00:00 Telephone Marcia Ocampo [facility] BUILDING 1.2840.114 350.1.13.10 4.2.7.2.686 [id number] [facility] 2023-03-25 00:00:00 2023-03-25 00:00:00 Telephone Damaris [facility] 1.2840.114 350.1.13.10 4.2.7.2.686 [id number] 134 [id number] [facility] 2023-03-23 00:00:00 2023-03-23 00:00:00 Case Management Marcia Ocampo [facility] BUILD[facility] 1.20.114 350.1.13.10 4.2.7.2.686 [id number] 134 [id number] [facility] 2023-03-22 10:45:00 2023-03-22 11:00:00 Pollution Control Technician Visit Lab, Juan Carlos - Juan A Marcia Ocampo [facility] 1..114 350.1.13.10 4.2.7.2.686 [id number] [facility] 2023-03-22 09:00:00 2023-03-22 09:34:31 Outpatient R DAMARIS [facility] [id number] [facility] 2023-03-22 09:00:00 2023-03-22 09:34:31 Initial Visit Marcia Ocampo [facility] 1.0.114 350.1.13.10 4.2.7.2.686 [id number] 134 [id number] [facility] 2023-03-22 00:00:00 2023-03-22 00:00:00 Orders Only Doctor Unassigned, [facility] 1.2840.114 350.1.13.10 4.2.7.2.686 [id number] [facility] 2023-03-06 21:58:00 2023-03-06 23:40:00 Emergency X RAMIREZ SANCHEZ [facility] ERT [id number] [facility] 2023-03-06 21:58:00 2023-03-06 23:40:00 Emergency Ramirez Sanchez [facility] 1.2840.114 350.1.13.10 4.2.7.2.686 [id number] [facility] 2023-03-06 13:00:00 2023-03-06 13:00:00 Outpatient R EDITA DYE [facility] [id number] [facility] 2022-12-20 14:30:00 2022-12-20 15:15:47 Outpatient R EDITA DYE [facility] [id number] [facility] 2022-12-20 14:30:00 2022-12-20 15:15:47 Office Visit Edita Dye [facility] 1..840.114 350.1.13.10 4.2.7.2.686 [id number] [facility] 2022-12-20 00:00:00 2022-12-20 00:00:00 Orders Only Doctor Unassigned, [facility] 1.840.114 350.1.13.10 4.2.7.2.686 [id number] [facility] 2022-12-14 09:15:00 2022-12-14 09:15:00 Outpatient R SURJIT RICE [facility] [id number] [facility] 2022-07-18 13:00:00 2022-07-18 13:45:54 Outpatient R SURJIT RICE [facility] [id number] [facility] 2022-07-18 13:00:00 2022-07-18 13:45:54 Office Visit Surjit Rice [facility] [employer] [facility] 1.840.114 350.1.13.10 4.2.7.2.686 [id number] [facility] 2021-12-14 08:45:00 2021-12-14 10:01:04 Outpatient R GERMAN BACK [facility] [id number] [facility] 2021-12-14 08:45:00 2021-12-14 10:01:04 Office Visit German Back [facility] [employer] [facility] 1.840.114 350.1.13.10 4.2.7.2.686 [id number] [facility] 2021-12-14 08:45:00 2021-12-14 10:01:04 Outpatient GERMAN ALEXANDRE [facility] [id number] [facility] 2021-12-14 00:00:00 2021-12-14 00:00:00 Orders Only Doctor Unassigned, [facility] 1.840.114 350.1.13.10 4.2.7.2.686 [id number] [facility] 2021-12-12 09:30:00 2021-12-12 09:30:00 Outpatient GERMAN ALEXANDRE [facility] [id number] [facility] 2021-12-12 09:30:00 2021-12-12 09:30:00 Outpatient [facility] [id number] [facility] 2021-12-12 09:30:00 2021-12-12 09:30:00 Outpatient [facility] [id number] [facility] 2021-08-08 09:30:00 2021-08-08 09:30:00 Outpatient SKYLER [facility]BROUGH [facility] [id number] [facility] 2021-08-07 14:30:00 2021-08-07 15:15:07 Outpatient [facility] [id number] [facility] 2021-08-07 14:21:07 2021-08-07 15:15:07 Office Visit Skyler Cuellar [facility] [employer] [facility] 1.840.114 350.1.13.10 4.2.7.2.686 [id number] [facility] 2021-08-07 00:00:00 2021-08-07 00:00:00 Orders Only Doctor Unassigned, [facility] 1.2.840.114 350.1.13.10 4.2.7.2.686 [id number] [facility] 2021-07-20 09:30:00 2021-07-20 09:30:00 Outpatient LORENZO LAGOS [facility] [id number] [facility] 2021-07-14 00:00:00 2021-07-14 00:00:00 Telephone Surjit Rice [facility] [employer] [facility] 1.2.840.114 350.1.13.10 4.2.7.2.686 [id number] 107 [id number] [facility] 2020-12-08 00:00:00 2020-12-08 00:00:00 Telephone [place] Back [facility] [employer] [facility] 1.2.840.114 350.1.13.10 4.2.7.2.686 [id number] 107 [id number] [facility] 2020-12-08 00:00:00 2020-12-08 00:00:00 Telephone [place] Back [facility] [employer] [facility] 1.2.840.114 350.1.13.10 4.2.7.2.686 [id number] 107 [id number] 2020-12-07 09:16:24 2020-12-07 10:08:04 Office Visit German Back [facility] [employer] [facility] 1.2.840.114 350.1.13.10 4.2.7.2.686 [id number] 107 [id number] [facility] 2020-12-07 09:00:00 2020-12-07 09:00:00 Outpatient R [facility] [id number] [facility] 2020-12-07 00:00:00 2020-12-07 00:00:00 Orders Only Doctor Unassigned, [facility] 1.2.840.114 350.1.13.10 4.2.7.2.686 [id number] [facility] 2020-05-02 00:00:00 2020-05-02 00:00:00 Telephone [place] Back [facility] [employer] [facility] [facility] [id number] 350.1.13.10 4.2.7.2.686 [id number] [facility] 2020-02-12 12:56:01 2020-02-12 13:27:54 [facility], [facility] German Back [facility] [employer] [facility] CHILD [facility] [id number] 350.1.13.10 4.2.7.2.686 [id number] [facility] 2020-02-12 13:00:00 2020-02-12 13:00:00 Outpatient [facility] [id number] [facility] 2020-02-11 00:00:00 2020-02-11 00:00:00 Telephone German Back [facility] [employer] FITTER [facility] CHILD [facility] [id number] 350.1.13.10 4.2.7.2.686 [id number] [facility] 2020-02-11 00:00:00 2020-02-11 00:00:00 Telephone Surjit Rice [facility] [employer] FITTER [facility] 1.2.840.114 350.1.13.10 4.2.7.2.686 [id number] [facility] 2020-02-09 14:00:00 2020-02-09 14:00:00 Outpatient R GERMAN BACK [facility] [id number] [facility] 2020-02-03 13:00:00 2020-02-03 13:00:00 Outpatient R [facility] [id number] [facility] 2019-12-31 00:39:27 2019-12-31 01:01:00 Emergency Monica Sanchez [facility] [id number] 350.1.13.10 4.2.7.2.686 [id number] [facility] 2019-10-19 00:00:00 2019-10-19 00:00:00 Telephone German Back [facility] [employer] FITTER [facility] 1.2.840.114 350.1.13.10 4.2.7.2.686 [id number] [facility] 2019-10-16 12:48:54 2019-10-16 14:02:54 Office Visit German Back [facility] [employer] FITTER [facility] 1.2.840.114 350.1.13.10 4.2.7.2.686 [id number] [facility] 2018-02-25 08:45:00 2018-02-25 08:45:[address] [facility] Medicine [facility] Medicine [id number] [facility] Results Test Description Test Time Test Comments Results Result Co mments Source [facility] [id number] 21:06:00* Test Item Value Reference Range Interpretation Comme nts POCT PREG (test code = 1605) Negative On board controls acceptable with C Line (test code = 3574) Yes POCT PREG LOT # (test code = 3575) POCT PREG TEST DATE ( test code = 3576) [facility] ([facility] IMMUNE [id number] 15:17:58* Test Item Value Reference Range Interpretation Comme nts RHIG CANDIDATE? (test code = 5188) No- see comment Patient is not a candidate for RhIg- Patient is Rh Positive.Performed at [facility] Laboratory Services - [facility] Blood [address] [place] [id number] Free: [phone] No. [id number] [facility] with [id number] 11:15:54* Test Item Value Reference Range Interpretation [...] 34.7 g/dL 31.6-35.1 RDW-SD (test code = 47110-4) 42.5 fL 39.0-49.9 RDW-CV (test code = 788-0) 13.1 % 12.0-15.5 PLT (test code = 777-3) 174 See_Comment [Automated message] The system which generated this result transmitted reference range: 166 - 358 10*3/?L. The reference range was not used to interpret this result as normal/abnormal. MPV (test code = 86517-4) 11.3 fL 9.5-12.9 NRBC/100 WBC (test code = 0683635007) 0.0 See_Comment [Automated message] The system which generated this result transmitted reference range: 0.0 - 10.0 /100 WBCs. The reference range was not used to interpret this result as normal/abnormal. NRBC x10^3 (test code = 7603528304) See_Comment [Automated message] The system which generated this result transmitted reference range: 10*3/?L. The reference range was not used to interpret this result as normal/abnormal. GRAN MAT (NEUT) % (test code = 770-8) 86.4 % IMM GRAN % (test code = 4096257460) 0.60 % LYMPH % (test code = 736-9) 6.9 % MONO % (test code = 5905-5) 5.1 % EOS % (test code = 713-8) 0.8 % BASO % (test code = 706-2) 0.2 % GRAN MAT x10^3(ANC) (test code = 1457872509) 12.14 10*3/uL 1.88-7.09 H IMM GRAN x10^3 (test code = 3300854954) 0.08 10*3/uL 0.00-0.06 H LYMPH x10^3 (test code = 731-0) 0.97 10*3/uL 1.32-3.29 L MONO x10^3 (test code = 742-7) 0.71 10*3/uL 0.33-0.92 EOS x10^3 (test code = 711-2) 0.11 10*3/uL 0.03-0.39 BASO x10^3 (test code = 704-7) 0.03 10*3/uL 0.01-0.07 Lab Interpretation (test code = 53922-5) Abnormal [facility] GLUCOSE (AUTOMATED)2023-09-26 03:26:13* Test Item Value Reference Range Interpretation Comme nts POCT GLU (test code = 8309509848) 86 mg/dL 70-110 Lab Interpretation (test cod e = 48342-4) Normal [facility] GLUCOSE (AUTOMATED)2023-09-26 00:49:14* Test Item Value Reference Range Interpretation Comme nts POCT GLU (test code = 5266301073) 79 mg/dL 70-110 Lab Interpretation (test cod e = 70108-9) Normal [facility] GLUCOSE (AUTOMATED)2023-09-25 19:43:12* Test Item Value Reference Range Interpretation Comme nts POCT GLU (test code = 9789821369) 98 mg/dL 70-110 Lab Interpretation (test cod e = 42352-5) [facility] [id number] 16:25:00 Sachin William MD ? ? 09/25/2023 11:00 AM Central Neuraxial Block Date/Time: 09/25/2023 10:25 AM Performed by: Sachin Willaim MDAuthorized by: Sachin William MD ?Patient Location: [...] YANETH sa line ?Guidance with: landmark technique}Epidural/Spinal [place] and/or Catheter: ?Epidural/Spinal Kit: BBraun ?Needle Type: [...] no more heme aspirated. Negative test dose [facility] [id number] 16:25:00 Sachin William MD ? ? 09/25/2023 [...] YANETH sa line ?Guidance with: landmark technique}Epidural/Spinal [place] and/or Catheter: ?Epidural/Spinal Kit: Melun ?Needle Type: [...] no more heme aspirated. Negative test dose [facility]2023-09-25 15:04:40* Test Item Value Reference Range Interpretation Comme nts POCT GLU (test code = 2693539736) 116 mg/dL 70-110 H Lab Interpretation (test cod e = 41684-5) Abnormal [facility] and Screen - ONCE [id number] 15:00:00* Test Item Value Reference Range Interpretation Comme nts ABO & RH (test code = 20) O POSITIVE IAT (test code = 1185) Negative [facility]and[facility]bc with [id number] 18:44:22* Test Item Value Reference Range Interpretation [...] 34.6 g/dL 31.6-35.1 RDW-SD (test code = 52453-9) 42.4 fL 39.0-49.9 RDW-CV (test code = 788-0) 12.9 % 12.0-15.5 PLT (test code = 777-3) 197 See_Comment [Automated messa ge] The system which generated this result transmitted reference range: 166 - 358 10*3/?L. The reference range was not used to interpret this result as normal/abnormal. MPV (test code = 87686-2) 11.4 fL 9.5-12.9 NRBC/100 WBC (test code = 2853343885) 0.0 See_Comment [Automated me ssage] The system which generated this result transmitted reference range: 0.0 - 10.0 /100 WBCs. The reference range was not used to interpret this result as normal/abnormal. NRBC x10^3 (test code = 2235319161) See_Comment [Automated messa ge] The system which generated this result transmitted reference range: 10*3/?L. The reference range was not used to interpret this result as normal/abnormal. GRAN MAT (NEUT) % (test code = 770-8) 78.2 % IMM GRAN % (test code = 5383165812) 0.50 % LYMPH % (test code = 736-9) 15.3 % MONO % (test code = 5905-5) 4.4 % EOS % (test code = 713-8) 1.2 % BASO % (test code = 706-2) 0.4 % GRAN MAT x10^3(ANC) (test code = 6683448614) 6.33 10*3/uL 1.88-7.09 IMM GRAN x10^3 (test code = 5662875699) 0.04 10*3/uL 0.00-0.06 LYMPH x10^3 (test code = 731-0) 1.24 10*3/uL 1.32-3.29 L MONO x10^3 (test code = 742-7) 0.36 10*3/uL 0.33-0.92 EOS x10^3 (test code = 711-2) 0.10 10*3/uL 0.03-0.39 BASO x10^3 (test code = 704-7) 0.03 10*3/uL 0.01-0.07 Lab Interpretation (test code = 32086-5) Abnormal [facility] with [id number] 18:44:22* Test Item Value Reference Range Interpretation [...] 34.6 g/dL 31.6-35.1 RDW-SD (test code = 46757-6) 42.4 fL 39.0-49.9 RDW-CV (test code = 788-0) 12.9 % 12.0-15.5 PLT (test code = 777-3) 197 See_Comment [Automated [employer]] The system which generated this result transmitted reference range: 166 - 358 10*3/?L. The reference range was not used to interpret this result as normal/abnormal. MPV (test code = 76076-5) 11.4 fL 9.5-12.9 NRBC/100 WBC (test code = 9374737498) 0.0 See_Comment [Automated [employer] ssage] The system which generated this result transmitted reference range: 0.0 - 10.0 /100 WBCs. The reference range was not used to interpret this result as normal/abnormal. NRBC x10^3 (test code = 9682694009) See_Comment [Automated [employer]] The system which generated this result transmitted reference range: 10*3/?L. The reference range was not used to interpret this result as normal/abnormal. GRAN MAT (NEUT) % (test code = 770-8) 78.2 % IMM GRAN % (test code = 7180508673) 0.50 % LYMPH % (test code = 736-9) 15.3 % MONO % (test code = 5905-5) 4.4 % EOS % (test code = 713-8) 1.2 % BASO % (test code = 706-2) 0.4 % GRAN MAT x10^3(ANC) (test code = 2668299942) 6.33 10*3/uL 1.88-7.09 IMM GRAN x10^3 (test code = 3398208674) 0.04 10*3/uL 0.00-0.06 LYMPH x10^3 (test code = 731-0) 1.24 10*3/uL 1.32-3.29 L MONO x10^3 (test code = 742-7) 0.36 10*3/uL 0.33-0.92 EOS x10^3 (test code = 711-2) 0.10 10*3/uL 0.03-0.39 BASO x10^3 (test code = 704-7) 0.03 10*3/uL 0.01-0.07 Lab Interpretation (test code = 60397-4) Abnormal [facility] with [id number] 20:29:26* Test Item Value Reference Range Interpretation [...] 33.9 g/dL 31.6-35.1 RDW-SD (test code = 94801-4) 41.6 fL 39.0-49.9 RDW-CV (test code = 788-0) 12.6 % 12.0-15.5 PLT (test code = 777-3) 181 See_Comment [Automated messa ge] The system which generated this result transmitted reference range: 166 - 358 10*3/?L. The reference range was not used to interpret this result as normal/abnormal. MPV (test code = 23846-4) 11.8 fL 9.5-12.9 NRBC/100 WBC (test code = 3030934309) 0.0 See_Comment [Automated [employer] ssage] The system which generated this result transmitted reference range: 0.0 - 10.0 /100 WBCs. The reference range was not used to interpret this result as normal/abnormal. NRBC x10^3 (test code = 5095355729) See_Comment [Automated messa ge] The system which generated this result transmitted reference range: 10*3/?L. The reference range was not used to interpret this result as normal/abnormal. GRAN MAT (NEUT) % (test code = 770-8) 79.2 % IMM GRAN % (test code = 5334831588) 0.90 % LYMPH % (test code = 736-9) 14.8 % MONO % (test code = 5905-5) 4.2 % EOS % (test code = 713-8) 0.6 % BASO % (test code = 706-2) 0.3 % GRAN MAT x10^3(ANC) (test code = 9019733292) 7.09 10*3/uL 1.88-7.09 IMM GRAN x10^3 (test code = 4773194905) 0.08 10*3/uL 0.00-0.06 H LYMPH x10^3 (test code = 731-0) 1.33 10*3/uL 1.32-3.29 MONO x10^3 (test code = 742-7) 0.38 10*3/uL 0.33-0.92 EOS x10^3 (test code = 711-2) 0.05 10*3/uL 0.03-0.39 BASO x10^3 (test code = 704-7) 0.03 10*3/uL 0.01-0.07 Lab Interpretation (test code = 38838-4) Abnormal [facility] Urinalysis w/o Specific [id number] 16:37:00* Test Item Value Reference Range Interpretation [...] = 3257) N/A Negative - Negati ve [facility] Urinalysis w/o Specific [id number] 19:09:00* Test Item Value Reference Range Interpretation [...] = 3257) N/A Negative - Negati ve [facility] URINALYSIS W/O SPECIFIC [id number] 18:37:00* Test Item Value Reference Range Interpretation [...] = 3257) N/A Negative - Negati ve [facility] URINALYSIS W/O SPECIFIC [id number] 17:15:00* Test Item Value Reference Range Interpretation [...] = 3257) N/A Negative - Negati ve [facility] URINALYSIS W/O SPECIFIC [id number] 16:55:00* Test Item Value Reference Range Interpretation [...] = 3257) Negative Negative - Negati ve [facility] URINALYSIS W/O SPECIFIC [id number] 16:05:00* Test Item Value Reference Range Interpretation [...] = 3257) N/A Negative - Negati ve [facility] URINALYSIS W/O SPECIFIC [id number] 15:36:00* Test Item Value Reference Range Interpretation [...] = 3257) n/a Negative - Negati ve [facility]YCOSYL[facility] HEMOGLOBIN (A1C)2023-03-27 20:21:55* Test Item Value Reference Range Interpretation Comme nts HGB A1C (test code = 4548-4) 4.8 % 4.0-5.7 ESTEPHANIA (test code = ESTEPHANIA) Reference RangesNormal: <5.7%Prediabetes: 5.7 - 6.4%Diabetes: > 6.5% Lab Interpretation (test code = 48684-3) Normal [facility] URINALYSIS W/O SPECIFIC [id number] 14:01:00* Test Item Value Reference Range Interpretation [...] = 3257) n/a Negative - Negati ve [facility] [id number] 03:07:00* Test Item Value Reference Range Interpretation Comme nts POCT PREG (test code = 1605) Positive On board controls acceptable with C Line (test code = 3574) Yes POCT PREG LOT # (test code = 3576) [id number] POCT PREG TEST DATE ( test code = 3576) 06/14/2024 Lab Interpretation (test cod e = 24141-4) Normal [facility] History and Physical Notes Date/Time Note Provider [...] Operations: Past Surgical History: Procedure Laterality Date NV FISSURECTOMY INCL SPHINCTEROTOMY WHEN PERFORMED Past Medical History: Diagnosis Date Anemia of mother in , antepartum 01/24/2018 resolved Anxiety Managed by [facility], managing without medication Chlamydia 2010, 2013 treated Depression managed by [facility], ongoing, managing without medication Family history [...] details Marcia Ocampo MD 09/25/2023 9:59 AM [facility] Procedure Notes Date/Time Note Provider Source 2023-09-25 10:59:01 Associated Order(s): Central Neuraxial Block Central Neuraxial Block Date/Time: 09/25/2023 10:25 AM Performed by: Sachin William MD Authorized by: Sachin iWlliam MD Patient Location: OB End Time: 09/25/2023 [...] YANETH saline Guidance with: landmark technique} Epidural/Spinal [place] and/or Catheter: Epidural/Spinal Kit: BBraun Needle Type: [...] no more heme aspirated. Negative test dose [facility] Face++ 2023-09-25 10:01:52 Procedure(s): INSERT CERVICAL DILATOR Pre-Procedure Diagnose(s): 39 weeks gestation of ; GDM, class A1 Post-Procedure Diagnose(s): 39 weeks gestation of ; GDM, class A1 Duenas bulb inserted in a sterile manner and inflated with 60 cc of normal saline without complications. Patient tolerated the procedure well. Marcia Ocampo MD #[id number] 09/25/2023 10:02 AM [facility] creads [facility]
--- NOTE | 2024-09-25 21:47 | RAD REPORT ---
EXAM: Hand Left 3 View HISTORY: PAIN COMPARISON: None FINDINGS: Bones: No acute fracture identified. Alignment:On the oblique view, the thumb appears to be dislocated at the first carpal metacarpal join t. Degenerative changes:None significant. Other: n/a IMPRESSION: No left hand fracture. Question dislocation of the thumb at the first carpometacarpal joint.
[2024-09-25] MEDS ORDERED: LIDOCAINE 1% MPF 5 ML VIAL ONE (22:10)
[2024-09-25] MEDS ORDERED: HYDROCODONE/APAP 5/325 MG TAB ONE (22:11)
--- NOTE | 2024-09-25 23:33 | EDPHYS ---
Physician Documentation [facility] Name: Mitra Melendez Age: 28 yrs Sex: Female : 1995 Arrival Date: 09/25/2024 Time: 20:37 Bed 8 Private MD: ED Physician Uli Small HPI: 09/26 00:19 This 28 yrs old Female presents to ER via Ambulatory with complaints of Hand Injury, sb4 abscesses. 00:19 Patient presents today with 2 complaints. States that she fell on her left hand few sb4 days ago and has had pain in her wrist and her hand since. She also is complaining of 2 abscesses-1 on her left inguinal region and another on her right inner gluteus. States that she gets these abscesses frequently and requires I\T\D and antibiotics. Is not sure why she gets them. She does not get them in her axilla. States that they do improve when she wears different types of underwear and takes warm baths. 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 - Infectious Disease History:: Denies. - Social history:: Smoking status: Patient reports the use of cigarette tobacco products, smokes one pack cigarettes per day. ROS: 09/26 00:19 Constitutional: Negative for fever, chills, and weight loss, sb4 MS/extremity: Positive for injury or acute deformity, decreased range of motion, pain, swelling, tenderness, of the left hand, Skin: Positive for abscess, of the groin, All other systems are negative, Exam: 00:19 Constitutional: This is a well developed, well nourished patient who is awake, alert, sb4 and in no acute distress. Head/Face: Normocephalic, atraumatic. Eyes: Extra-ocular motions intact. Periorbital areas with no swelling, redness, or edema. ENT: Mucous membranes moist. 00:19 Skin: abscess, that is small, approximately 1 cm(s), of the left femoral area, with induration, 00:22 Musculoskeletal/extremity: swelling noted to dorsum of left hand, 2nd and 3rd sb4 metacarpal. pain with ROM of left wrist. no deformity noted. no bruising. sensation and pulses intact. 00:22 Skin: abscess, that is small, approximately 1 cm(s), of the right gluteal fold, Vital Signs: 09/25 21:03 BP 131 / 81; Pulse 88; Resp 16; Temp 98.1; Pulse Ox 98% ; Weight 72.57 kg; Height 5 ft. me1 7 in. ; Pain 5/10; 22:30 BP 106 / 64; Pulse 79; Resp 18 S; Pulse Ox 98% on R/A; ha1 23:10 BP 99 / 68; Pulse 80; Resp 17 S; Pulse Ox 100% on R/A; ha1 23:46 BP 122 / 82; Pulse 78; Resp 18 S; Pulse Ox 100% on R/A; ha1 21:03 Body Mass Index 25.06 (72.57 kg, 170.18 cm) me1 21:03 Pain Scale: Adult me1 Procedures: 09/26 00:25 I \T\ D: Incision and drainage was performed for an abscess of the left left femoral area sb4 Prepped with Betadine, Anesthetized with 1 ml's 1% Lidocaine. Incised with 18 gauge. Drained small amount serosanguinous fluid. Dressing: bandaid the patient tolerated the procedure well. 00:25 I \T\ D: Incision and drainage was performed for an abscess of the right right gluteal sb4 fold Prepped with Betadine, Anesthetized with 1 ml's 1% Lidocaine. Incised with 18 gauage. Drained small amount serosanguinous fluid. Dressing: bandaid the patient tolerated the procedure well. MDM: 09/25 21:11 Medical Screening Exam initiated sb4 09/26 00:25 Data reviewed: vital signs, nurses notes, radiologic studies, and as a result, I will sb4 discharge patient. Counseling: I had a detailed discussion with the patient and/or guardian regarding the historical points, exam findings, and any diagnostic results supporting the discharge/admit diagnosis, the need for outpatient follow up, for definitive care, to return to the emergency department if symptoms worsen or persist or if there are any questions or concerns that arise at home. 00:26 Differential diagnosis: closed fracture, contusion, sprain, strain, abscess, sb4 cellulitis, HSV, HPV. 09/25 21:12 Order name: Hand Left 3 View XRAY; Complete Time: 21:49 sb4 09/25 22:00 Order name: Wrist Splint: with thumb; Complete Time: 22:23 sb4 Administered Medications: 09/25 22:26 Drug: HYDROcodone-acetaminophen PO 5 mg-325 mg 1 tabs PO once Route: PO; ha1 23:14 Follow up: Response: No adverse reaction; Marked relief of symptoms; Pain is decreased; ha1 RASS: Alert and Calm (0) 23:00 Drug: Lidocaine Infiltration (1 %) 5 ml 5 ml Infiltration once; to bedside {Note: ha1 administered by Mago .} Volume: 5 ml; Route: Infiltration; 23:46 Follow up: Response: No adverse reaction ha1 23:30 Drug: Clindamycin PO 300 mg PO once Route: PO; ha1 23:44 Follow up: Response: No adverse reaction ha1 Disposition: 09/26 01:04 Co-signature as Attending Physician, Uli Small MD I reviewed the patient's care rt provided by the Advanced Practice Provider and agree with the diagnosis and treatment plan. Disposition Summary: 09/25/24 23:32 Discharge Ordered Notes: Location: Home sb4 Problem: new sb4 Symptoms: have improved sb4 Condition: Stable sb4 Diagnosis - Cutaneous abscess of groin sb4 - Sprain of other part of left wrist and hand sb4 Followup: sb4 - With: Private Physician - When: As needed - Reason: Recheck today's complaints, Re-evaluation by your physician Discharge Instructions: - Discharge Summary Sheet sb4 - Skin Abscess, Mdqk-tt-Hcvu sb4 - Hand Contusion, Cxjb-au-Odye sb4 - Incision and Drainage, Care After sb4 - Wrist Sprain, Adult sb4 Forms: - Antibiotic Education sb4 - Patient Portal Instructions sb4 - Leadership Thank You Letter sb4 Prescriptions: - Clindamycin HCl 300 mg Oral Capsule - take 1 capsule ORAL route every 6 hours for 10 days; 40 capsule; Refills: 0, sb4 Product Selection Permitted Signatures: Dispatcher [employer] Eli Beverly RN RN ha1 Mago Ng PA-C PA-C sb4 Uli Small MD MD rt Lori Mariscal RN RN me1 Corrections: (The following items were deleted from the chart) 09/25 21:29 21:13 Wrist Left 3 View+RAD.RAD.BRZ ordered. EDMS EDMS
--- NOTE | 2024-09-25 23:33 | ER ---
Nurse's Notes [facility] Name: Mitra Melendez Age: 28 yrs Sex: Female : 1995 Arrival Date: 09/25/2024 Time: 20:37 Bed 8 Private MD: Diagnosis: Cutaneous abscess of groin;Sprain of other part of left wrist and hand Presentation: 09/25 21:03 Chief complaint: Patient states: fell on 09/21/24 and has had some left hand pain and me1 swelling since. 01/16. Also has some red, raised and warm areas x2 on her panty line, she is concerned they are abscesses. Coronavirus screen: Vaccine status: Patient reports being unvaccinated. Ebola Screen: No symptoms or risks identified at this time. Initial Sepsis Screen: Does the patient meet any 2 criteria? No. Patient's initial sepsis screen is negative. Does the patient have a suspected source of infection? No. Patient's initial sepsis screen is negative. Risk Assessment: Do you want to hurt yourself or someone else? Patient reports no desire to harm self or others. Onset of symptoms was September 21, 2024. 21:03 Method Of Arrival: Ambulatory tn1 21:03 Acuity: ELBERT 4 me1 Triage Assessment: 21:08 General: Appears in no apparent distress. well groomed, well developed, well nourished, me1 Behavior is calm, cooperative, appropriate for age, Reports left hand pain and red, raised, warm areas x 2 to pantyline, concern for abscess. Pain: Complains of pain in left hand Pain does not radiate. Pain currently is 5 out of 10 on a pain scale. Quality of pain is described as sharp, Pain began gradually, 2-3 days ago. Is continuous, Aggravated by increased activity. EENT: No signs and/or symptoms were reported regarding the EENT system. Neuro: Level of Consciousness is awake, alert, obeys commands, Oriented to person, place, time, situation, Appropriate for age. Cardiovascular: Patient's skin is warm and dry. Respiratory: Airway is patent Respiratory effort is even, unlabored, Respiratory pattern is regular, symmetrical. GI: No signs and/or symptoms were reported involving the gastrointestinal system. : No signs and/or symptoms were reported regarding the genitourinary system. Derm: Wound noted groin Wound is red, raised, warm areas x 2. Musculoskeletal: Reports pain in left hand. Injury Description: fell and now has pain/swelling to left hand and wrist. MEDICAL MANAGEMENT SPECIALIST: 21:07 LMP N/A - control method, Not me1 Historical: - Allergies: 21:07 Bactrim; me1 - PMHx: 21:07 Substance Abuse; me1 - PSHx: 21:07 anal fissure repair; me1 - Immunization history:: Adult Immunizations up to date. - Infectious Disease History:: Denies. - Social history:: Smoking status: Patient reports the use of cigarette tobacco products, smokes one pack cigarettes per day. Screenin:04 [facility] ED Fall Risk Assessment (Adult) History of falling in the last 3 months, ha1 including since admission No falls in past 3 months (0 pts) Confusion or Disorientation No (0 pts) Intoxicated or Sedated No (0 pts) Impaired Gait No (0 pts) Mobility Assist Device Used No (0 pt) Altered Elimination No (0 pt) Score/Fall Risk Level 0 - 2 = Low Risk Oriented to surroundings, Maintained a safe environment, Educated pt \T\ family on fall prevention, incl call for assistance when getting out of bed, Hourly rounding (assess needs \T\ fall precautionary measures) done. Abuse screen: Denies threats or abuse. Denies injuries from another. Nutritional screening: No deficits noted. Tuberculosis screening: No symptoms or risk factors identified. Assessment: 21:35 General: Appears uncomfortable, Behavior is cooperative. Pain: Complains of pain in ha1 pelvis and groin and left hand Pain does not radiate. Pain currently is 9 out of 10 on a pain scale. Quality of pain is described as aching, sharp. Neuro: Level of Consciousness is awake, alert, obeys commands, Oriented to person, place, time, situation. Cardiovascular: Capillary refill < 3 seconds Patient's skin is warm and dry. Respiratory: Airway is patent Respiratory effort is even, unlabored, Respiratory pattern is regular, symmetrical. GI: No signs and/or symptoms were reported involving the gastrointestinal system. : Reports POSSIBLE ABSCESS ON THE INGUINAL AREA. 22:30 Reassessment: Patient and/or family updated on plan of care and expected duration. Pain ha1 level reassessed. Patient is alert, oriented x 3, equal unlabored respirations, skin warm/dry/pink. 23:30 Reassessment: Patient and/or family updated on plan of care and expected duration. Pain ha1 level reassessed. Patient is alert, oriented x 3, equal unlabored respirations, skin warm/dry/pink. Patient states feeling better. Patient states symptoms have improved. Vital Signs: 21:03 BP 131 / 81; Pulse 88; Resp 16; Temp 98.1; Pulse Ox 98% ; Weight 72.57 kg; Height 5 ft. me1 7 in. ; Pain 5/10; 22:30 BP 106 / 64; Pulse 79; Resp 18 S; Pulse Ox 98% on R/A; ha1 23:10 BP 99 / 68; Pulse 80; Resp 17 S; Pulse Ox 100% on R/A; ha1 23:46 BP 122 / 82; Pulse 78; Resp 18 S; Pulse Ox 100% on R/A; ha1 21:03 Body Mass Index 25.06 (72.57 kg, 170.18 cm) me1 21:03 Pain Scale: Adult me1 ED Course: 20:41 Patient arrived in ED. gm2 20:46 Mago Ng PA-C is PHCP. sb4 20:46 Uli Small MD is Attending Physician. sb4 21:07 Triage completed. me1 21:07 Arm band placed on Patient placed in an exam room. me1 21:29 Hand Left 3 View XRAY In Process Unspecified. EDMS 21:30 Patient has correct armband on for positive identification. Placed in gown. Bed in low ha1 position. Call light in reach. Side rails up X 1. 22:24 Velcro wrist splint applied to left wrist. 23:47 Provided Education on: medication administration and wound care . ha1 23:47 No provider procedures requiring assistance completed. Patient did not have IV access ha1 during this emergency room visit. Administered Medications: 22:26 Drug: HYDROcodone-acetaminophen PO 5 mg-325 mg 1 tabs PO once Route: PO; ha1 23:14 Follow up: Response: No adverse reaction; Marked relief of symptoms; Pain is decreased; ha1 RASS: Alert and Calm (0) 23:00 Drug: Lidocaine Infiltration (1 %) 5 ml 5 ml Infiltration once; to bedside {Note: ha1 administered by Mago .} Volume: 5 ml; Route: Infiltration; 23:46 Follow up: Response: No adverse reaction ha1 23:30 Drug: Clindamycin PO 300 mg PO once Route: PO; ha1 23:44 Follow up: Response: No adverse reaction ha1 Medication: 22:04 VIS not applicable for this client. ha1 Outcome: 23:32 Discharge ordered by . [email or web address] 23:47 Discharged to home ambulatory, ha1 23:47 Condition: stable 23:47 Discharge instructions given to patient, Instructed on discharge instructions, follow up and referral plans. medication usage, Demonstrated understanding of instructions, follow-up care, medications, wound care, Prescriptions given X 1, 23:48 Patient left the ED. ha1 Signatures: Dispatcher [employer] EDMS Eli Mcintosh RN RN ha1 Mago Ng, PA-C PA-C sb4 Lori Mariscal RN RN tn1 Krystina Key 2 Judit Blanton
[2024-09-26 00:19] VITALS: TEMP 98.1
[2024-09-26 00:20] VITALS: O2SAT 100
[2024-09-26 00:21] VITALS: BP 122/82
== END 2024-09-25 23:48 | disposition home or self-care (01) ==
LOC: ER 20:37
PROC: 0Y9 Anatomical Regions, Lower Extremities, Drainage (ICD-10-PCS; principal; 2024-09-25)
PROC: 0H98XZZ Drainage of Buttock Skin, External Approach (ICD-10-PCS; 2024-09-25)
DX: L02.214 Cutaneous abscess of groin (principal); S63.8X2A Sprain of other part of left wrist and hand, initial encounter
CPT/HCPCS: 73130; 99284; 10060; J2003

== ENCOUNTER 2024-10-19 13:35 | Emergency (ER) | payer OTHER, SELFPAY ==
--- OUTSIDE RECORDS SUMMARY | 2024-10-19 13:46 | XMS REPORT | Continuity of Care Document ---
Author Name Unknown Address [address] [facility] [address] [place] [address] [facility] Address [address] [facility] [address] [place] [address] Care Team Providers Care Engineering Job Titles Name Role Phone PCP, PATIENT DOES NOT HAVE A Primary Care Physic katlin Unavailable MARCIA OCAMPO Attending Clinician Unavailable CARITO PICHARDO Attending Clinician Unavailable Marcia Ocampo MD Attending Clinician [phone] Doctor Unassigned, Binger Attending Clinician U navailable Sachin William MD Attending Clinicia n Darius GAITAN, Loreta Attending Clinician [phone] Po, [facility] Lab Main Attending Clinician Unavailabl e Lab, Ang - Db Attending Clinician Unavailable LEONA PRIETO Attending Clinician Unav ailable Ultrasound, [facility] Attending Clinician UnavailLeona Escalera MD Attending Clinician + [email or web address]_S Attending Clinician UnavailMarine Jo MD Attending Clinician [phone] MARINE WORTHINGTON Attending Clinician Unavailable MARINE WORTHINGTON Attending Clinician Unavailable ATUL SENA Attending Clinician Unavailable Atul Sena DO Attending Clinician [phone] Gretel GAITAN, Martell Attending Clinician [phone] Marely Ly RN Attending Clinician Unavailabl e Nurse, [facility] Attending Clinician Un available Leia Everett RN Attending Clinician UnavailRAMIREZ Back Attending Clinician Unavailable Ramirez Sanchez MD Attending Clinician [phone] EDITA DYE Attending Clinician Unavaila Edita Junior CNM Attending Clinician [phone] GERMAN BACK Attending Clinician Unavailab SURJIT Catalan Attending Clinician Unavail able Krystal WHCNPSurjit Attending Clinician + German Gil Attending Clinician + [phone] SKYLER CUELLAR Attending Clinician Unavailtamia Cuellar CONFECTIONERY MAKER, Skyler Douglas Attending Clinician [phone] LORENZO CHEATHAM Attending Clinician Unavail able Visit, [facility] Nurse Attending Clinician Mikkiva dennys Sanchez MD, Monica Alejandra Attending Clinician [phone] MARCIA OCAMPO Admitting Clinician Unavailable [email or web address] Admitting Clinician Unavaila guillermo Payers Payer Name Policy Type Policy Number Effective Date Expirati on Date Source [place] [employer] [id number] 2023 00:00:00 Problems Condition Name Condition Details Condition Category Status Onset Date Resolution Date Last Treatment Date Treating Clinician Comments Source 39 weeks gestation of 39 weeks gestation of Disease Active 09-25 00:00: 00 [facility] Liveborn , of [place]ke[place] , born in hospital by vaginal delivery Liveborn infant, of [place]kew , born in hospital by vaginal delivery Disease Active 09-25 00:00: 00 [facility] 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 test for herpes simplex virus (HSV) antibody Disease Active 05-17 00:00: 00 [facility] GDM (gestation al diabetes mellitus), class A1 GDM (gestation al diabetes mellitus), class A1 Disease Active 04-19 00:00: 00 [facility] High-risk in third trimester High-risk in third trimester Disease Active 04-19 00:00: 00 [facility] Family history of congenital heart disease Family history of congenital heart disease Disease Active 8-11 00:00: 00 [facility] History of gestationa l diabetes mellitus (GDM) History of gestationa l diabetes mellitus (GDM) Disease Active 8-11 00:00: 00 [facility] Normal in first trimester Normal in first trimester Disease Active 7-14 00:00: 00 [facility] Nausea and vomiting during prior to 22 weeks gestation Nausea and vomiting during prior to 22 weeks gestation Disease Active 7-14 00:00: 00 [facility] History of anxiety and depression History of anxiety and depression Disease Active 4-13 00:00: 00 [facility] BMI 25.0-25.9, adult BMI 25.0-25.9, adult Disease Active 4-07 00:00: 00 [facility] BMI 25.0-25.9, adult BMI 25.0-25.9, adult Disease Active 4-07 00:00: 00 [facility] Nexplanon in place Nexplanon in place Disease Active 3- 00:00: 00 [facility] Flu vaccine need Flu vaccine need Disease Active 3-31 00:00: 00 [facility] Internal thrombosed hemorrhoid s Internal thrombosed hemorrhoid s Disease Active 0 6- 00:00: 00 [facility] Chlamydia trachomati s infection of lower genitourin victorina sites Chlamydia trachomati s infection of lower genitourin victorina sites Disease Active 2018-09 2 00:00: 00 [facility] Encounter for surveillan ce of implantabl e subdermal contracept giovanna Encounter for surveillan ce of implantabl e subdermal contracept giovanna Disease Active 2017-09 00:00: 00 [facility] Tobacco use disorder Tobacco use disorder Disease Active 2017-09 00:00: 00 [facility] 23 weeks gestation of 23 weeks gestation of Diagnosis Active [facility] Paronychia of finger of left hand Paronychia of finger of left hand Diagnosis Active [facility] Allergies, Adverse Reactions, Alerts Allergy Name Allergy Type Status Severity Reaction(s) Onset Date Inactive Date Treating Clinician Comments Source NO KNOWN ALLERGIE S Drug Class Active [facility] Social History Social Habit Start Date Stop Date Quantity Comments Source ASSERTION 2023-01-09 00:00:00 [facility] History of tobacco use 2007-10-04 00:00:00 Cigarette Smoker [facility] History SDOH Alcohol Frequency [facility] History SDOH Alcohol Std Drinks [facility] History SDOH Alcohol Binge [facility] Alcohol intake 2023-12-04 00:00:00 2023-12-04 00:00:00 Ex-drinker (finding) [facility] History of Social function 2023-11-06 00:00:00 2023-11-06 00:00:00 [facility] Alcohol Comment 2023-03-22 00:00:00 2023-03-22 00:00:00 qquit when fund out was [facility] Cigarettes smoked current (pack per day) - Reported 2023-03-22 00:00:00 2023-03-22 00:00:00 [facility] Cigarette pack-years 2023-03-22 00:00:00 2023-03-22 00:00:00 [facility] Tobacco use and exposure 2023-03-22 00:00:00 2023-03-22 00:00:00 Smokeless tobacco non-user [facility] Exposure to SARS-CoV-2 (event) 2022-12-10 00:00:00 2022-12-20 14:24:00 Not sure [facility] Sex Assigned At 1995 00:00:00 1995 00:00:00 [facility] Smoking Status Start Date Stop Date Source Smokes tobacco daily 2023-03-22 00:00:00 [facility] Medications Ordered Medication Name Filled Medication Name Start Date Stop Date Current Medication? Ordering Clinician Indication Dosage Frequency Signature (SIG) Comments Components Source sulfamethox azole-trime thoprim (BACTRIM DS) 800-160 mg per tablet 12-03 00:00: 00 12-07 04:59 :00 No [id number] 1{tbl} Take 1 tablet by mouth in the morning and 1 tablet in the evening. Do all this for 3 days. [facility] sulfamethox azole-trime thoprim (BACTRIM DS) 800-160 mg per tablet 11-18 00:00: 00 11-24 04:59 :00 No [id number] 1{tbl} Take 1 tablet by mouth in the morning and 1 tablet in the evening. Do all this for 5 days. [facility] cephALEXin 500 mg capsule 11-12 00:00: 00 11-18 00:00 :00 No [id number] 500mg Take 1 capsule by mouth 4 (four) times daily for 10 days. [facility] etonogestre L (NEXPLANON) implant 68 mg 00:15: 00 11-06 23:46 :00 No [id number] 68mg [facility] metoclopram nabila HCl (REGLAN) tablet 10 mg 09-26 20:15: 00 09-26 19:35 :00 No 10mg 10 mg, Oral, ONCE, 1 dose, On Sat09/26/23 at 1415, Routine [facility] PNV no.95/giancarlo us fum/folic ac ( ORAL) 09-26 07:35: 16 09-26 00:00 :00 No Take by mouth. [facility] rho(D) immune globulin (RHOGAM) syringe 300 mcg 09-26 06:03: 58 Yes 300ug 300 mcg, Intramuscu lar, ONCE, For 1 dose, Conditiona l, Routine [facility] witch Kamryn (TUCKS) 50 % topical pad 09-26 06:03: 53 Yes Topical, Q4HPRN, Starting on Sat09/26/23 at 0003, Until Discontinu ed, Routine, rectal/hem orrhoidal pain [facility] HYDROcodone -acetaminop hen (NORCO 5) 5-325 mg tablet 1 tablet 09-26 06:03: 53 Yes 1{tbl} 1 tablet, Oral, Q6HPRN, Starting on Sat09/26/23 at 0003, Until Discontinu ed, Routine, Pain (scale 7-10) [facility] ibuprofen (IBU) tablet 600 mg 09-26 06:03: 53 Yes 600mg 600 mg, Oral, Q6HPRN, Starting on Sat09/26/23 at 0003, Until Discontinu ed, Routine, Pain (scale 4-6) [facility] acetaminoph en (TYLENOL) tablet 650 mg 09-26 06:03: 53 Yes 650mg 650 mg, Oral, Q6HPRN, Starting on Sat09/26/23 at 0003, Until Discontinu ed, Routine, Pain (scale 1-3) [facility] diphenhydrA MINE (BENADRYL) tablet 25 mg 09-26 06:03: 53 Yes 25mg 25 mg, Oral, Q6HPRN, Starting on Sat09/26/23 at 2, Until Discontinu ed, Routine, Sleep, Itching [facility] ondansetron (ZOFRAN (PF)) injection 4 mg 09-26 06:03: 53 Yes 4mg 4 mg, Slow IV Push, Q8HPRN, Starting on Sat09/26/23 at 2, Until Discontinu ed, Routine, Nausea and Vomiting (N/V) [facility] simethicone (GAS RELIEF (SIMETHICON E)) chewable tablet 160 mg 09-26 06:03: 53 Yes 160mg 160 mg, Oral, PC+HSPRN, Starting on Sat09/26/23 at 0003, Until Discontinu ed, Routine, Gas [facility] docusate (COLACE) capsule 200 mg 09-26 06:03: 53 Yes 200mg 200 mg, Oral, QDAILYPRN, Starting on Sat09/26/23 at 0003, Until Discontinu ed, Routine, Constipati on [facility] magnesium hydroxide (MILK OF MAGNESIA) 400 mg/5 mL suspension 30 mL 09-26 06:03: 53 Yes 30mL 30 mL, Oral, QDAILYPRN, Starting on Sat09/26/23 at 0003, Until Discontinu ed, Routine, Constipati on [facility] benzocaine- menthol (DERMOPLAST ) 20-0.5 % topical spray 09-26 06:03: 53 Yes Topical, PRN, Starting on Sat09/26/23 at 0003, Until Discontinu ed, Routine, Perineum discomfort [facility] vitamin w/FA tablet 09-26 00:00: 00 11-06 00:00 :00 No [id number] 1{tbl} Take 1 tablet by mouth in the morning. [facility] docusate 100 mg capsule 09-26 00:00: 00 11-06 00:00 :00 No [id number] 200mg Take 2 capsules by mouth once daily as needed for Constipati on. [facility] ferrous sulfate 325 mg (65 mg iron) tablet 09-26 00:00: 00 11-06 00:00 :00 No [id number] 325mg Take 1 tablet by mouth in the morning and 1 tablet in the evening. [facility] ibuprofen 600 mg tablet 09-26 00:00: 00 11-06 00:00 :00 No [id number] 600mg Take 1 tablet by mouth every 6 (six) hours as needed (Pain). Take with food or milk. [facility] PNV no.95/giancarlo us fum/folic ac ( ORAL) 09-25 23:18: 46 Yes Take by mouth. [facility] fentaNYL-ro pivacaine 2 mcg/mL-0.1 % (PF) in NS 200 mL epidural infusion RTU 09-25 16:57: 00 Yes Epidural, CONTINUOUS PRN, Starting on Sat09/25/23 at 1057, Until Discontinu ed, Routine, Intra-op [facility] lidocaine-e pinephrine (XYLOCAINE W/EPINEPHRI NE) 1.5 %-1:200,000 injection 09-25 16:49: 00 Yes Intraderma l, ONCE INTRA PROCEDURE, Starting on Sat09/25/23 at 1049, Until Discontinu ed, Routine, Intra-op [facility] acyclovir (ZOVIRAX) tablet 400 mg 09-25 14:00: 00 09-26 06:03 :57 No 400mg 400 mg, Oral, TID, First dose on Sat09/25/23 at 0800, Until Discontinu ed, BALTA [facility] lactated ringers IV infusion 500 mL 09-25 12:32: 53 09-26 06:03 :56 No 500mL at 999 mL/hr, 500 mL, IV Infusion, PRN - SEE INSTRUCTIO NS, Starting on Sat09/25/23 at 0632, Until Kate 09/26/23 at 0003, Routine [facility] FENTanyl PF (SUBLIMAZE (PF)) injection 100 mcg 09-25 12:32: 53 09-26 06:03 :57 No 100ug 100 mcg, Slow IV Push, Q1HPRN, Starting on Sat09/25/23 at 0632, Until Kate 09/26/23 at 0003, Routine, contractio n pain without an epidural and SVE < 8 cm and Cat I strip [facility] oxytocin (PITOCIN) 30 units in NS 500 mL IV infusion 09-25 12:32: 53 09-26 06:03 :57 No 2mU/min at 2-40 mL/hr, IV Infusion, TITRATE, Starting on Sat09/25/23 at 0632, Until Kate 09/26/23 at 0003, BALTA [facility] D5W-LR IV infusion 1,000 mL 09-25 12:32: 53 09-26 06:03 :56 No 1000mL at 1-125 mL/hr, IV Infusion, TITRATE, Starting on Sat09/25/23 at 0632, Until Kate 09/26/23 at 0003, Routine [facility] PNV no.95/giancarlo us fum/folic ac ( ORAL) 1-12 14:40: 57 Yes Take by mouth. [facility] nirmatrelvi r-ritonavir (PAXLOVID) 300 mg (150 mg x 2)-100 mg tablet 2022-09 2-29 00:00: 00 Yes 3{tbl} Take 3 tablets by mouth in the morning and 3 tablets in the evening. [facility] PNV no.95/giancarlo us fum/folic ac ( ORAL) 2022-09 2-15 13:12: 22 Yes Take by mouth. [facility] acyclovir 400 mg tablet 2022-09 2 00:00: 00 09-26 00:00 :00 No [id number] 400mg Take 1 tablet by mouth in the morning and 1 tablet at noon and 1 tablet in the evening. [facility] blood sugar diagnostic (BLOOD GLUCOSE TEST) strip 2022-09 0- 00:00: 00 09-26 00:00 :00 No Check gluocose 4 times a day [facility] sulfamethox azole-trime thoprim (BACTRIM DS) 800-160 mg per tablet 9-08 00:00: 00 05-28 04:59 :00 No [id number] 1{tbl} Take 1 tablet by mouth in the morning and 1 tablet in the evening. Do all this for 10 days. [facility] cephALEXin (KEFLEX) 500 mg capsule 05-06 00:00: 00 05-14 04:59 :00 No [id number] 500mg Take 1 capsule by mouth in the morning and 1 capsule at noon and 1 capsule in the evening. Do all this for 7 days. [facility] Blood-Gluco se Meter Kit 03-27 00:00: 00 09-26 00:00 :00 No Check glucose 4 times a day. [facility] Lancets Misc 03-27 00:00: 00 09-26 00:00 :00 No Check glucose 4 times a day [facility] Alcohol Swabs (ALCOHOL PADS) PadM 03-27 00:00: 00 09-26 00:00 :00 No Apply to area(s) 4 (four) times daily. [facility] blood sugar diagnostic (BLOOD GLUCOSE TEST) strip 03-27 00:00: 00 07-09 00:00 :00 No Check gluocose 4 times a day [facility] PNV no.95/giancarlo us fum/folic ac ( ORAL) 03-22 09:00: 18 Yes Take by mouth. [facility] pyridoxine, VITAMIN B-6, (VITAMIN B-6) 25 mg tablet 03-22 00:00: 00 09-26 00:00 :00 No [id number] 25mg Take 1 tablet by mouth every 6 (six) hours as needed for Nausea and Vomiting (N/V). [facility] doxylamine (UNISOM, DOXYLAMINE, ) 25 mg tablet 03-22 00:00: 00 09-26 00:00 :00 No [id number] 25mg Take 1 tablet by mouth at bedtime as needed for Nausea and Vomiting (N/V). [facility] metoclopram nabila HCl 10 mg tablet 03-22 00:00: 00 09-26 00:00 :00 No [id number] 10mg Take 1 tablet by mouth every 6 (six) hours as needed for Nausea and Vomiting (N/V). [facility] ondansetron (ZOFRAN-ODT ) disintegrat ing tablet 4 mg 03-07 05:00: 00 03-07 03:55 :00 No 4mg 4 mg, Oral, ONCE, 1 dose, On Kate 03/07/23 at 0000, BALTA [facility] doxylamine- pyridoxine, vit B6, (DICLEGIS) 10-10 mg per tablet 03-06 00:00: 00 03-22 00:00 :00 No [id number] 1{tbl} Take 1 tablet by mouth 4 (four) times daily as needed for Nausea and Vomiting (N/V). [facility] No known medications 2021-09 13:50: 57 No No known medication s [facility] No known medications 12-14 09:03: 50 No [facility] Yes Florencio Mitchell 1 tablet [facility] Immunizations Ordered Immunization Name Filled Immunization Name Date Status Comments Source Influenza Virus Vaccine Quad .5 mL IM 6+ MO 2021-12-14 00:00:00 Completed [facility] Influenza Virus Vaccine Quad .5 mL IM 6+ MO 2021-12-14 00:00:00 Completed [facility] Influenza Virus Vaccine Quad .5 mL IM 6+ MO 2021-12-14 00:00:00 Completed [facility] Influenza Virus Vaccine Quad .5 mL IM 6+ MO 2021-12-14 00:00:00 Completed [facility] Influenza Virus Vaccine Quad .5 mL IM 6+ MO 2021-12-14 00:00:00 Completed [facility] Influenza Virus Vaccine Quad .5 mL IM 6+ MO 2021-12-14 00:00:00 Completed [facility] Influenza Virus Vaccine Quad .5 mL IM 6+ MO 2021-12-14 00:00:00 Completed [facility] Influenza Virus Vaccine Quad .5 mL IM 6+ MO 2021-12-14 00:00:00 Completed [facility] Influenza Virus Vaccine Quad .5 mL IM 6+ MO 2021-12-14 00:00:00 Completed [facility] Influenza Virus Vaccine Quad .5 mL IM 6+ MO (FLUZONE/FLULAVAL/FL UARIX) 2021-12-14 00:00:00 Completed [facility] Influenza Virus Vaccine Quad .5 mL IM 6+ MO (FLUZONE/FLULAVAL/FL UARIX) 2021-12-14 00:00:00 Completed [facility] Influenza Virus Vaccine Quad .5 mL IM 6+ MO 2021-12-14 00:00:00 Completed [facility] Influenza Virus Vaccine Quad .5 mL IM 6+ MO 2021-12-14 00:00:00 Completed [facility] Influenza Virus Vaccine Quad .5 mL IM 6+ MO 2021-12-14 00:00:00 Completed [facility] Influenza Virus Vaccine Quad .5 mL IM 6+ MO 2021-12-14 00:00:00 Completed [facility] Influenza Virus Vaccine Quad .5 mL IM 6+ MO 2021-12-14 00:00:00 Completed [facility] Influenza Virus Vaccine Quad .5 mL IM 6+ MO 2021-12-14 00:00:00 Completed [facility] Influenza Virus Vaccine Quad .5 mL IM 6+ MO 2021-12-14 00:00:00 Completed [facility] Influenza Virus Vaccine Quad .5 mL IM 6+ MO 2021-12-14 00:00:00 Completed [facility] Influenza Virus Vaccine Quad .5 mL IM 6+ MO 2021-12-14 00:00:00 Completed [facility] Influenza Virus Vaccine Quad .5 mL IM 6+ MO 2021-12-14 00:00:00 Completed [facility] Influenza Virus Vaccine Quad .5 mL IM 6+ MO 2021-12-14 00:00:00 Completed [facility] Influenza Virus Vaccine Quad .5 mL IM 6+ MO 2021-12-14 00:00:00 Completed [facility] Influenza Virus Vaccine Quad .5 mL IM 6+ MO 2021-12-14 00:00:00 Completed [facility] Influenza Virus Vaccine Quad .5 mL IM 6+ MO 2021-12-14 00:00:00 Completed [facility] HPV9 2020-12-07 00:00:00 Completed [facility] HPV9 2020-12-07 00:00:00 Completed [facility] HPV9 2020-12-07 00:00:00 Completed [facility] HPV9 2020-12-07 00:00:00 Completed [facility] HPV9 2020-12-07 00:00:00 Completed [facility] HPV9 2020-12-07 00:00:00 Completed [facility] HPV9 2020-12-07 00:00:00 Completed [facility] HPV9 2020-12-07 00:00:00 Completed [facility] HPV9 2020-12-07 00:00:00 Completed [facility] HPV9 2020-12-07 00:00:00 Completed [facility] HPV9 2020-12-07 00:00:00 Completed [facility] HPV9 2020-12-07 00:00:00 Completed [facility] HPV9 2020-12-07 00:00:00 Completed [facility] HPV9 2020-12-07 00:00:00 Completed [facility] HPV9 2020-12-07 00:00:00 Completed [facility] HPV9 2020-12-07 00:00:00 Completed [facility] HPV9 2020-12-07 00:00:00 Completed [facility] HPV9 2020-12-07 00:00:00 Completed [facility] HPV9 2020-12-07 00:00:00 Completed [facility] HPV9 2020-12-07 00:00:00 Completed [facility] HPV9 2020-12-07 00:00:00 Completed [facility] HPV9 2020-12-07 00:00:00 Completed [facility] HPV9 2020-12-07 00:00:00 Completed [facility] HPV9 2020-12-07 00:00:00 Completed [facility] HPV9 2020-12-07 00:00:00 Completed [facility] HPV9 2019-09-17 00:00:00 Completed [facility] HPV9 2019-09-17 00:00:00 Completed [facility] HPV9 2019-09-17 00:00:00 Completed [facility] HPV9 2019-09-17 00:00:00 Completed [facility] HPV9 2019-09-17 00:00:00 Completed [facility] HPV9 2019-09-17 00:00:00 Completed [facility] HPV9 2019-09-17 00:00:00 Completed [facility] HPV9 2019-09-17 00:00:00 Completed [facility] HPV9 2019-09-17 00:00:00 Completed [facility] HPV9 2019-09-17 00:00:00 Completed [facility] HPV9 2019-09-17 00:00:00 Completed [facility] HPV9 2019-09-17 00:00:00 Completed [facility] HPV9 2019-09-17 00:00:00 Completed [facility] HPV9 2019-09-17 00:00:00 Completed [facility] HPV9 2019-09-17 00:00:00 Completed [facility] HPV9 2019-09-17 00:00:00 Completed [facility] HPV9 2019-09-17 00:00:00 Completed [facility] HPV9 2019-09-17 00:00:00 Completed [facility] HPV9 2019-09-17 00:00:00 Completed [facility] HPV9 2019-09-17 00:00:00 Completed [facility] HPV9 2019-09-17 00:00:00 Completed [facility] HPV9 2019-09-17 00:00:00 Completed [facility] HPV9 2019-09-17 00:00:00 Completed [facility] HPV9 2019-09-17 00:00:00 Completed [facility] HPV9 2019-09-17 00:00:00 Completed [facility] HPV9 2019-08-05 00:00:00 Completed [facility] Influenza Virus Vaccine Quad .5 mL IM 6+ MO 2019-08-05 00:00:00 Completed [facility] HPV9 2019-08-05 00:00:00 Completed [facility] Influenza Virus Vaccine Quad .5 mL IM 6+ MO 2019-08-05 00:00:00 Completed [facility] HPV9 2019-08-05 00:00:00 Completed [facility] Influenza Virus Vaccine Quad .5 mL IM 6+ MO 2019-08-05 00:00:00 Completed [facility] HPV9 2019-08-05 00:00:00 Completed [facility] Influenza Virus Vaccine Quad .5 mL IM 6+ MO 2019-08-05 00:00:00 Completed [facility] HPV9 2019-08-05 00:00:00 Completed [facility] Influenza Virus Vaccine Quad .5 mL IM 6+ MO 2019-08-05 00:00:00 Completed [facility] HPV9 2019-08-05 00:00:00 Completed [facility] Influenza Virus Vaccine Quad .5 mL IM 6+ MO 2019-08-05 00:00:00 Completed [facility] HPV9 2019-08-05 00:00:00 Completed [facility] Influenza Virus Vaccine Quad .5 mL IM 6+ MO 2019-08-05 00:00:00 Completed [facility] HPV9 2019-08-05 00:00:00 Completed [facility] Influenza Virus Vaccine Quad .5 mL IM 6+ MO 2019-08-05 00:00:00 Completed [facility] HPV9 2019-08-05 00:00:00 Completed [facility] Influenza Virus Vaccine Quad .5 mL IM 6+ MO 2019-08-05 00:00:00 Completed [facility] HPV9 2019-08-05 00:00:00 Completed [facility] Influenza Virus Vaccine Quad .5 mL IM 6+ MO (FLUZONE/FLULAVAL/FL UARIX) 2019-08-05 00:00:00 Completed [facility] HPV9 2019-08-05 00:00:00 Completed [facility] Influenza Virus Vaccine Quad .5 mL IM 6+ MO (FLUZONE/FLULAVAL/FL UARIX) 2019-08-05 00:00:00 Completed [facility] HPV9 2019-08-05 00:00:00 Completed [facility] Influenza Virus Vaccine Quad .5 mL IM 6+ MO 2019-08-05 00:00:00 Completed [facility] HPV9 2019-08-05 00:00:00 Completed [facility] Influenza Virus Vaccine Quad .5 mL IM 6+ MO 2019-08-05 00:00:00 Completed [facility] HPV9 2019-08-05 00:00:00 Completed [facility] Influenza Virus Vaccine Quad .5 mL IM 6+ MO 2019-08-05 00:00:00 Completed [facility] HPV9 2019-08-05 00:00:00 Completed [facility] Influenza Virus Vaccine Quad .5 mL IM 6+ MO 2019-08-05 00:00:00 Completed [facility] HPV9 2019-08-05 00:00:00 Completed [facility] Influenza Virus Vaccine Quad .5 mL IM 6+ MO 2019-08-05 00:00:00 Completed [facility] HPV9 2019-08-05 00:00:00 Completed [facility] Influenza Virus Vaccine Quad .5 mL IM 6+ MO 2019-08-05 00:00:00 Completed [facility] HPV9 2019-08-05 00:00:00 Completed [facility] Influenza Virus Vaccine Quad .5 mL IM 6+ MO 2019-08-05 00:00:00 Completed [facility] HPV9 2019-08-05 00:00:00 Completed [facility] Influenza Virus Vaccine Quad .5 mL IM 6+ MO 2019-08-05 00:00:00 Completed [facility] HPV9 2019-08-05 00:00:00 Completed [facility] Influenza Virus Vaccine Quad .5 mL IM 6+ MO 2019-08-05 00:00:00 Completed [facility] HPV9 2019-08-05 00:00:00 Completed [facility] Influenza Virus Vaccine Quad .5 mL IM 6+ MO 2019-08-05 00:00:00 Completed [facility] HPV9 2019-08-05 00:00:00 Completed [facility] Influenza Virus Vaccine Quad .5 mL IM 6+ MO 2019-08-05 00:00:00 Completed [facility] HPV9 2019-08-05 00:00:00 Completed [facility] Influenza Virus Vaccine Quad .5 mL IM 6+ MO 2019-08-05 00:00:00 Completed [facility] HPV9 2019-08-05 00:00:00 Completed [facility] Influenza Virus Vaccine Quad .5 mL IM 6+ MO 2019-08-05 00:00:00 Completed [facility] HPV9 2019-08-05 00:00:00 Completed [facility] Influenza Virus Vaccine Quad .5 mL IM 6+ MO 2019-08-05 00:00:00 Completed [facility] TDAP 2018-05-08 00:00:00 Completed [facility] TDAP 2018-05-08 00:00:00 Completed [facility] TDAP 2018-05-08 00:00:00 Completed [facility] TDAP 2018-05-08 00:00:00 Completed [facility] TDAP 2018-05-08 00:00:00 Completed [facility] TDAP 2018-05-08 00:00:00 Completed [facility] TDAP 2018-05-08 00:00:00 Completed [facility] TDAP 2018-05-08 00:00:00 Completed [facility] TDAP 2018-05-08 00:00:00 Completed [facility] TDAP 2018-05-08 00:00:00 Completed [facility] TDAP 2018-05-08 00:00:00 Completed [facility] TDAP 2018-05-08 00:00:00 Completed [facility] TDAP 2018-05-08 00:00:00 Completed [facility] TDAP 2018-05-08 00:00:00 Completed [facility] TDAP 2018-05-08 00:00:00 Completed [facility] TDAP 2018-05-08 00:00:00 Completed [facility] TDAP 2018-05-08 00:00:00 Completed [facility] TDAP 2018-05-08 00:00:00 Completed [facility] TDAP 2018-05-08 00:00:00 Completed [facility] TDAP 2018-05-08 00:00:00 Completed [facility] TDAP 2018-05-08 00:00:00 Completed [facility] TDAP 2018-05-08 00:00:00 Completed [facility] TDAP 2018-05-08 00:00:00 Completed [facility] TDAP 2018-05-08 00:00:00 Completed [facility] TDAP 2018-05-08 00:00:00 Completed [facility] Varicella (varivax)(chicken pox) 2008-11-26 00:00:00 Completed [facility] Meningococcal Polysaccharide (groups A, C, Y and W-135) conjugate vaccine (MCV4P) 2008-11-26 00:00:00 Completed [facility] TDAP 2008-11-26 00:00:00 Completed [facility] Varicella (varivax)(chicken pox) 2008-11-26 00:00:00 Completed [facility] Meningococcal Polysaccharide (groups A, C, Y and W-135) conjugate vaccine (MCV4P) 2008-11-26 00:00:00 Completed [facility] TDAP 2008-11-26 00:00:00 Completed [facility] Varicella (varivax)(chicken pox) 2008-11-26 00:00:00 Completed [facility] Meningococcal Polysaccharide (groups A, C, Y and W-135) conjugate vaccine (MCV4P) 2008-11-26 00:00:00 Completed [facility] TDAP 2008-11-26 00:00:00 Completed [facility] Varicella (varivax)(chicken pox) 2008-11-26 00:00:00 Completed [facility] Meningococcal Polysaccharide (groups A, C, Y and W-135) conjugate vaccine (MCV4P) 2008-11-26 00:00:00 Completed [facility] TDAP 2008-11-26 00:00:00 Completed [facility] Varicella (varivax)(chicken pox) 2008-11-26 00:00:00 Completed [facility] Meningococcal Polysaccharide (groups A, C, Y and W-135) conjugate vaccine (MCV4P) 2008-11-26 00:00:00 Completed [facility] TDAP 2008-11-26 00:00:00 Completed [facility] Varicella (varivax)(chicken pox) 2008-11-26 00:00:00 Completed [facility] Meningococcal Polysaccharide (groups A, C, Y and W-135) conjugate vaccine (MCV4P) 2008-11-26 00:00:00 Completed [facility] TDAP 2008-11-26 00:00:00 Completed [facility] Varicella (varivax)(chicken pox) 2008-11-26 00:00:00 Completed [facility] Meningococcal Polysaccharide (groups A, C, Y and W-135) conjugate vaccine (MCV4P) 2008-11-26 [facility] Varicella (varivax)(chicken pox) 2008-11-26 00:00:00 Completed [facility] Meningococcal Polysaccharide (groups A, C, Y and W-135) conjugate vaccine (MCV4P) 2008-11-26 00:00:00 Completed [facility] TDAP 2008-11-26 00:00:00 Completed [facility] Varicella (varivax)(chicken pox) 2008-11-26 00:00:00 Completed [facility] Meningococcal Polysaccharide (groups A, C, Y and W-135) conjugate vaccine (MCV4P) 2008-11-26 00:00:00 Completed [facility] TDAP 2008-11-26 00:00:00 Completed [facility] Varicella (varivax)(chicken pox) 2008-11-26 00:00:00 Completed [facility] Meningococcal Polysaccharide (groups A, C, Y and W-135) conjugate vaccine (MCV4P) 2008-11-26 00:00:00 Completed [facility] TDAP 2008-11-26 00:00:00 Completed [facility] Varicella (varivax)(chicken pox) 2008-11-26 00:00:00 Completed [facility] Meningococcal Polysaccharide (groups A, C, Y and W-135) conjugate vaccine (MCV4P) 2008-11-26 00:00:00 Completed [facility] TDAP 2008-11-26 00:00:00 Completed [facility] Varicella (varivax)(chicken pox) 2008-11-26 00:00:00 Completed [facility] Meningococcal Polysaccharide (groups A, C, Y and W-135) conjugate vaccine (MCV4P) 2008-11-26 00:00:00 Completed [facility] TDAP 2008-11-26 00:00:00 Completed [facility] Varicella (varivax)(chicken pox) 2008-11-26 00:00:00 Completed [facility] Meningococcal Polysaccharide (groups A, C, Y and W-135) conjugate vaccine (MCV4P) 2008-11-26 00:00:00 Completed [facility] TDAP 2008-11-26 00:00:00 Completed [facility] Varicella (varivax)(chicken pox) 2008-11-26 00:00:00 Completed [facility] Meningococcal Polysaccharide (groups A, C, Y and W-135) conjugate vaccine (MCV4P) 2008-11-26 00:00:00 Completed [facility] TDAP 2008-11-26 00:00:00 Completed [facility] Varicella (varivax)(chicken pox) 2008-11-26 00:00:00 Completed [facility] Meningococcal Polysaccharide (groups A, C, Y and W-135) conjugate vaccine (MCV4P) 2008-11-26 00:00:00 Completed [facility] TDAP 2008-11-26 00:00:00 Completed [facility] Varicella (varivax)(chicken pox) 2008-11-26 00:00:00 Completed [facility] Meningococcal Polysaccharide (groups A, C, Y and W-135) conjugate vaccine (MCV4P) 2008-11-26 00:00:00 Completed [facility] TDAP 2008-11-26 00:00:00 Completed [facility] Varicella (varivax)(chicken pox) 2008-11-26 00:00:00 Completed [facility] Meningococcal Polysaccharide (groups A, C, Y and W-135) conjugate vaccine (MCV4P) 2008-11-26 00:00:00 Completed [facility] TDAP 2008-11-26 00:00:00 Completed [facility] Varicella (varivax)(chicken pox) 2008-11-26 00:00:00 Completed [facility] Meningococcal Polysaccharide (groups A, C, Y and W-135) conjugate vaccine (MCV4P) 2008-11-26 00:00:00 Completed [facility] TDAP 2008-11-26 00:00:00 Completed [facility] Varicella (varivax)(chicken pox) 2008-11-26 00:00:00 Completed [facility] Meningococcal Polysaccharide (groups A, C, Y and W-135) conjugate vaccine (MCV4P) 2008-11-26 00:00:00 Completed [facility] TDAP 2008-11-26 00:00:00 Completed [facility] Varicella (varivax)(chicken pox) 2008-11-26 00:00:00 Completed [facility] Meningococcal Polysaccharide (groups A, C, Y and W-135) conjugate vaccine (MCV4P) 2008-11-26 00:00:00 Completed [facility] TDAP 2008-11-26 00:00:00 Completed [facility] Varicella (varivax)(chicken pox) 2008-11-26 00:00:00 Completed [facility] Meningococcal Polysaccharide (groups A, C, Y and W-135) conjugate vaccine (MCV4P) 2008-11-26 00:00:00 Completed [facility] TDAP 2008-11-26 00:00:00 Completed [facility] Varicella (varivax)(chicken pox) 2008-11-26 00:00:00 Completed [facility] Meningococcal Polysaccharide (groups A, C, Y and W-135) conjugate vaccine (MCV4P) 2008-11-26 00:00:00 Completed [facility] TDAP 2008-11-26 00:00:00 Completed [facility] MMR 2001-02-04 00:00:00 Completed [facility] IPV 2001-02-04 00:00:00 Completed [facility] DTaP, Unspecified Formulation 2001-02-04 00:00:00 Completed [facility] MMR 2001-02-04 00:00:00 Completed [facility] IPV 2001-02-04 00:00:00 Completed [facility] DTaP, Unspecified Formulation 2001-02-04 00:00:00 Completed [facility] MMR 2001-02-04 00:00:00 Completed [facility] IPV 2001-02-04 00:00:00 Completed [facility] DTaP, Unspecified Formulation 2001-02-04 00:00:00 Completed [facility] MMR 2001-02-04 00:00:00 Completed [facility] IPV 2001-02-04 00:00:00 Completed [facility] DTaP, Unspecified Formulation 2001-02-04 00:00:00 Completed [facility] MMR 2001-02-04 00:00:00 Completed [facility] IPV 2001-02-04 00:00:00 Completed [facility] DTaP, Unspecified Formulation 2001-02-04 00:00:00 Completed [facility] MMR 2001-02-04 00:00:00 Completed [facility] IPV 2001-02-04 00:00:00 Completed [facility] DTaP, Unspecified Formulation 2001-02-04 00:00:00 Completed [facility] MMR 2001-02-04 00:00:00 Completed [facility] IPV 2001-02-04 00:00:00 Completed [facility] DTaP, Unspecified Formulation 2001-02-04 00:00:00 Completed [facility] MMR 2001-02-04 00:00:00 Completed [facility] IPV 2001-02-04 00:00:00 Completed [facility] DTaP, Unspecified Formulation 2001-02-04 00:00:00 Completed [facility] MMR 2001-02-04 00:00:00 Completed [facility] IPV 2001-02-04 00:00:00 Completed [facility] DTaP, Unspecified Formulation 2001-02-04 00:00:00 Completed [facility] MMR 2001-02-04 00:00:00 Completed [facility] IPV 2001-02-04 00:00:00 Completed [facility] DTaP, Unspecified Formulation 2001-02-04 00:00:00 Completed [facility] MMR 2001-02-04 00:00:00 Completed [facility] IPV 2001-02-04 00:00:00 Completed [facility] DTaP, Unspecified Formulation 2001-02-04 00:00:00 Completed [facility] MMR 2001-02-04 00:00:00 Completed [facility] IPV 2001-02-04 00:00:00 Completed [facility] DTaP, Unspecified Formulation 2001-02-04 00:00:00 Completed [facility] MMR 2001-02-04 00:00:00 Completed [facility] IPV 2001-02-04 00:00:00 Completed [facility] DTaP, Unspecified Formulation 2001-02-04 00:00:00 Completed [facility] MMR 2001-02-04 00:00:00 Completed [facility] IPV 2001-02-04 00:00:00 Completed [facility] DTaP, Unspecified Formulation 2001-02-04 00:00:00 Completed [facility] MMR 2001-02-04 00:00:00 Completed [facility] IPV 2001-02-04 00:00:00 Completed [facility] DTaP, Unspecified Formulation 2001-02-04 00:00:00 Completed [facility] MMR 2001-02-04 00:00:00 Completed [facility] IPV 2001-02-04 00:00:00 Completed [facility] DTaP, Unspecified Formulation 2001-02-04 00:00:00 Completed [facility] MMR 2001-02-04 00:00:00 Completed [facility] IPV 2001-02-04 00:00:00 Completed [facility] DTaP, Unspecified Formulation 2001-02-04 00:00:00 Completed [facility] MMR 2001-02-04 00:00:00 Completed [facility] IPV 2001-02-04 00:00:00 Completed [facility] DTaP, Unspecified Formulation 2001-02-04 00:00:00 Completed [facility] MMR 2001-02-04 00:00:00 Completed [facility] IPV 2001-02-04 00:00:00 Completed [facility] DTaP, Unspecified Formulation 2001-02-04 00:00:00 Completed [facility] MMR 2001-02-04 00:00:00 Completed [facility] IPV 2001-02-04 00:00:00 Completed [facility] DTaP, Unspecified Formulation 2001-02-04 00:00:00 Completed [facility] MMR 2001-02-04 00:00:00 Completed [facility] IPV 2001-02-04 00:00:00 Completed [facility] DTaP, Unspecified Formulation 2001-02-04 00:00:00 Completed [facility] MMR 2001-02-04 00:00:00 Completed [facility] IPV 2001-02-04 00:00:00 Completed [facility] DTaP, Unspecified Formulation 2001-02-04 00:00:00 Completed [facility] MMR 1998-07-29 00:00:00 Completed [facility] DPT/HIB 1998-07-29 00:00:00 Completed [facility] MMR 1998-07-29 00:00:00 Completed [facility] DPT/HIB 1998-07-29 00:00:00 Completed [facility] MMR 1998-07-29 00:00:00 Completed [facility] DPT/HIB 1998-07-29 00:00:00 Completed [facility] MMR 1998-07-29 00:00:00 Completed [facility] DPT/HIB 1998-07-29 00:00:00 Completed [facility] MMR 1998-07-29 00:00:00 Completed [facility] DPT/HIB 1998-07-29 00:00:00 Completed [facility] MMR 1998-07-29 00:00:00 Completed [facility] DPT/HIB 1998-07-29 00:00:00 Completed [facility] MMR 1998-07-29 00:00:00 Completed [facility] DPT/HIB 1998-07-29 00:00:00 Completed [facility] MMR 1998-07-29 00:00:00 Completed [facility] DPT/HIB 1998-07-29 00:00:00 Completed [facility] MMR 1998-07-29 00:00:00 Completed [facility] DPT/HIB 1998-07-29 00:00:00 Completed [facility] MMR 1998-07-29 00:00:00 Completed [facility] DPT/HIB 1998-07-29 00:00:00 Completed [facility] MMR 1998-07-29 00:00:00 Completed [facility] DPT/HIB 1998-07-29 00:00:00 Completed [facility] MMR 1998-07-29 00:00:00 Completed [facility] DPT/HIB 1998-07-29 00:00:00 Completed [facility] MMR 1998-07-29 00:00:00 Completed [facility] DPT/HIB 1998-07-29 00:00:00 Completed [facility] MMR 1998-07-29 00:00:00 Completed [facility] DPT/HIB 1998-07-29 00:00:00 Completed [facility] MMR 1998-07-29 00:00:00 Completed [facility] DPT/HIB 1998-07-29 00:00:00 Completed [facility] MMR 1998-07-29 00:00:00 Completed [facility] DPT/HIB 1998-07-29 00:00:00 Completed [facility] MMR 1998-07-29 00:00:00 Completed [facility] DPT/HIB 1998-07-29 00:00:00 Completed [facility] MMR 1998-07-29 00:00:00 Completed [facility] DPT/HIB 1998-07-29 00:00:00 Completed [facility] MMR 1998-07-29 00:00:00 Completed [facility] DPT/HIB 1998-07-29 00:00:00 Completed [facility] MMR 1998-07-29 00:00:00 Completed [facility] DPT/HIB 1998-07-29 00:00:00 Completed [facility] MMR 1998-07-29 00:00:00 Completed [facility] DPT/HIB 1998-07-29 00:00:00 Completed [facility] MMR 1998-07-29 00:00:00 Completed [facility] DPT/HIB 1998-07-29 00:00:00 Completed [facility] Poliovirus, Live, Oral, Trivalent 1998-02-04 00:00:00 Completed [facility] Varicella (varivax)(chicken pox) 1998-02-04 00:00:00 Completed [facility] Poliovirus, Live, Oral, Trivalent 1998-02-04 00:00:00 Completed [facility] Varicella (varivax)(chicken pox) 1998-02-04 00:00:00 Completed [facility] Poliovirus, Live, Oral, Trivalent 1998-02-04 00:00:00 Completed [facility] Varicella (varivax)(chicken pox) 1998-02-04 00:00:00 Completed [facility] Poliovirus, Live, Oral, Trivalent 1998-02-04 00:00:00 Completed [facility] Varicella (varivax)(chicken pox) 1998-02-04 00:00:00 Completed [facility] Poliovirus, Live, Oral, Trivalent 1998-02-04 00:00:00 Completed [facility] Varicella (varivax)(chicken pox) 1998-02-04 00:00:00 Completed [facility] Poliovirus, Live, Oral, Trivalent 1998-02-04 00:00:00 Completed [facility] Varicella (varivax)(chicken pox) 1998-02-04 00:00:00 Completed [facility] Poliovirus, Live, Oral, Trivalent 1998-02-04 00:00:00 Completed [facility] Varicella (varivax)(chicken pox) 1998-02-04 00:00:00 Completed [facility] Poliovirus, Live, Oral, Trivalent 1998-02-04 00:00:00 Completed [facility] Varicella (varivax)(chicken pox) 1998-02-04 00:00:00 Completed [facility] Poliovirus, Live, Oral, Trivalent 1998-02-04 00:00:00 Completed [facility] Varicella (varivax)(chicken pox) 1998-02-04 00:00:00 Completed [facility] Poliovirus, Live, Oral, Trivalent 1998-02-04 00:00:00 Completed [facility] Varicella (varivax)(chicken pox) 1998-02-04 00:00:00 Completed [facility] Poliovirus, Live, Oral, Trivalent 1998-02-04 00:00:00 Completed [facility] Varicella (varivax)(chicken pox) 1998-02-04 00:00:00 Completed [facility] Poliovirus, Live, Oral, Trivalent 1998-02-04 00:00:00 Completed [facility] Varicella (varivax)(chicken pox) 1998-02-04 00:00:00 Completed [facility] Poliovirus, Live, Oral, Trivalent 1998-02-04 00:00:00 Completed [facility] Varicella (varivax)(chicken pox) 1998-02-04 00:00:00 Completed [facility] Poliovirus, Live, Oral, Trivalent 1998-02-04 00:00:00 Completed [facility] Varicella (varivax)(chicken pox) 1998-02-04 00:00:00 Completed [facility] Poliovirus, Live, Oral, Trivalent 1998-02-04 00:00:00 Completed [facility] Varicella (varivax)(chicken pox) 1998-02-04 00:00:00 Completed [facility] Poliovirus, Live, Oral, Trivalent 1998-02-04 00:00:00 Completed [facility] Varicella (varivax)(chicken pox) 1998-02-04 00:00:00 Completed [facility] Poliovirus, Live, Oral, Trivalent 1998-02-04 00:00:00 Completed [facility] Varicella (varivax)(chicken pox) 1998-02-04 00:00:00 Completed [facility] Poliovirus, Live, Oral, Trivalent 1998-02-04 00:00:00 Completed [facility] Varicella (varivax)(chicken pox) 1998-02-04 00:00:00 Completed [facility] Poliovirus, Live, Oral, Trivalent 1998-02-04 00:00:00 Completed [facility] Varicella (varivax)(chicken pox) 1998-02-04 00:00:00 Completed [facility] Poliovirus, Live, Oral, Trivalent 1998-02-04 00:00:00 Completed [facility] Varicella (varivax)(chicken pox) 1998-02-04 00:00:00 Completed [facility] Poliovirus, Live, Oral, Trivalent 1998-02-04 00:00:00 Completed [facility] Varicella (varivax)(chicken pox) 1998-02-04 00:00:00 Completed [facility] Poliovirus, Live, Oral, Trivalent 1998-02-04 00:00:00 Completed [facility] Varicella (varivax)(chicken pox) 1998-02-04 00:00:00 Completed [facility] Hep B, Adol or Pedi Dosage 1997-10-28 00:00:00 Completed [facility] Hep B, Adol or Pedi Dosage 1997-10-28 00:00:00 Completed [facility] Hep B, Adol or Pedi Dosage 1997-10-28 00:00:00 Completed [facility] Hep B, Adol or Pedi Dosage 1997-10-28 00:00:00 Completed [facility] Hep B, Adol or Pedi Dosage 1997-10-28 00:00:00 Completed [facility] Hep B, Adol or Pedi Dosage 1997-10-28 00:00:00 Completed [facility] Hep B, Adol or Pedi Dosage 1997-10-28 00:00:00 Completed [facility] Hep B, Adol or Pedi Dosage 1997-10-28 00:00:00 Completed [facility] Hep B, Adol or Pedi Dosage 1997-10-28 00:00:00 Completed [facility] Hep B, Adol or Pedi Dosage 1997-10-28 00:00:00 Completed [facility] Hep B, Adol or Pedi Dosage 1997-10-28 00:00:00 Completed [facility] Hep B, Adol or Pedi Dosage 1997-10-28 00:00:00 Completed [facility] Hep B, Adol or Pedi Dosage 1997-10-28 00:00:00 Completed [facility] Hep B, Adol or Pedi Dosage 1997-10-28 00:00:00 Completed [facility] Hep B, Adol or Pedi Dosage 1997-10-28 00:00:00 Completed [facility] Hep B, Adol or Pedi Dosage 1997-10-28 00:00:00 Completed [facility] Hep B, Adol or Pedi Dosage 1997-10-28 00:00:00 Completed [facility] Hep B, Adol or Pedi Dosage 1997-10-28 00:00:00 Completed [facility] Hep B, Adol or Pedi Dosage 1997-10-28 00:00:00 Completed [facility] Hep B, Adol or Pedi Dosage 1997-10-28 00:00:00 Completed [facility] Hep B, Adol or Pedi Dosage 1997-10-28 00:00:00 Completed [facility] Hep B, Adol or Pedi Dosage 1997-10-28 00:00:00 Completed [facility] DTaP, Unspecified Formulation 1997-06-29 00:00:00 Completed [facility] Hib-HbOC 1997-06-29 00:00:00 Completed [facility] DTaP, Unspecified Formulation 1997-06-29 00:00:00 Completed [facility] Hib-HbOC 1997-06-29 00:00:00 Completed [facility] DTaP, Unspecified Formulation 1997-06-29 00:00:00 Completed [facility] Hib-HbOC 1997-06-29 00:00:00 Completed [facility] DTaP, Unspecified Formulation 1997-06-29 00:00:00 Completed [facility] Hib-HbOC 1997-06-29 00:00:00 Completed [facility] DTaP, Unspecified Formulation 1997-06-29 00:00:00 Completed [facility] Hib-HbOC 1997-06-29 00:00:00 Completed [facility] DTaP, Unspecified Formulation 1997-06-29 00:00:00 Completed [facility] Hib-HbOC 1997-06-29 00:00:00 Completed [facility] DTaP, Unspecified Formulation 1997-06-29 00:00:00 Completed [facility] Hib-HbOC 1997-06-29 00:00:00 Completed [facility] DTaP, Unspecified Formulation 1997-06-29 00:00:00 Completed [facility] Hib-HbOC 1997-06-29 00:00:00 Completed [facility] DTaP, Unspecified Formulation 1997-06-29 00:00:00 Completed [facility] Hib-HbOC 1997-06-29 00:00:00 Completed [facility] DTaP, Unspecified Formulation 1997-06-29 00:00:00 Completed [facility] Hib-HbOC 1997-06-29 00:00:00 Completed [facility] DTaP, Unspecified Formulation 1997-06-29 00:00:00 Completed [facility] Hib-HbOC 1997-06-29 00:00:00 Completed [facility] DTaP, Unspecified Formulation 1997-06-29 00:00:00 Completed [facility] Hib-HbOC 1997-06-29 00:00:00 Completed [facility] DTaP, Unspecified Formulation 1997-06-29 00:00:00 Completed [facility] Hib-HbOC 1997-06-29 00:00:00 Completed [facility] DTaP, Unspecified Formulation 1997-06-29 00:00:00 Completed [facility] Hib-HbOC 1997-06-29 00:00:00 Completed [facility] DTaP, Unspecified Formulation 1997-06-29 00:00:00 Completed [facility] Hib-HbOC 1997-06-29 00:00:00 Completed [facility] DTaP, Unspecified Formulation 1997-06-29 00:00:00 Completed [facility] Hib-HbOC 1997-06-29 00:00:00 Completed [facility] DTaP, Unspecified Formulation 1997-06-29 00:00:00 Completed [facility] Hib-HbOC 1997-06-29 00:00:00 Completed [facility] DTaP, Unspecified Formulation 1997-06-29 00:00:00 Completed [facility] Hib-HbOC 1997-06-29 00:00:00 Completed [facility] DTaP, Unspecified Formulation 1997-06-29 00:00:00 Completed [facility] Hib-HbOC 1997-06-29 00:00:00 Completed [facility] DTaP, Unspecified Formulation 1997-06-29 00:00:00 Completed [facility] Hib-HbOC 1997-06-29 00:00:00 Completed [facility] DTaP, Unspecified Formulation 1997-06-29 00:00:00 Completed [facility] Hib-HbOC 1997-06-29 00:00:00 Completed [facility] DTaP, Unspecified Formulation 1997-06-29 00:00:00 Completed [facility] Hib-HbOC 1997-06-29 00:00:00 Completed [facility] Hib-HbOC 1997-04-19 00:00:00 Completed [facility] IPV 1997-04-19 00:00:00 Completed [facility] DTaP, Unspecified Formulation 1997-04-19 00:00:00 Completed [facility] Hib-HbOC 1997-04-19 00:00:00 Completed [facility] IPV 1997-04-19 00:00:00 Completed [facility] DTaP, Unspecified Formulation 1997-04-19 00:00:00 Completed [facility] Hib-HbOC 1997-04-19 00:00:00 Completed [facility] IPV 1997-04-19 00:00:00 Completed [facility] DTaP, Unspecified Formulation 1997-04-19 00:00:00 Completed [facility] Hib-HbOC 1997-04-19 00:00:00 Completed [facility] IPV 1997-04-19 00:00:00 Completed [facility] DTaP, Unspecified Formulation 1997-04-19 00:00:00 Completed [facility] Hib-HbOC 1997-04-19 00:00:00 Completed [facility] IPV 1997-04-19 00:00:00 Completed [facility] DTaP, Unspecified Formulation 1997-04-19 00:00:00 Completed [facility] Hib-HbOC 1997-04-19 00:00:00 Completed [facility] IPV 1997-04-19 00:00:00 Completed [facility] DTaP, Unspecified Formulation 1997-04-19 00:00:00 Completed [facility] Hib-HbOC 1997-04-19 00:00:00 Completed [facility] IPV 1997-04-19 00:00:00 Completed [facility] DTaP, Unspecified Formulation 1997-04-19 00:00:00 Completed [facility] Hib-HbOC 1997-04-19 00:00:00 Completed [facility] IPV 1997-04-19 00:00:00 Completed [facility] DTaP, Unspecified Formulation 1997-04-19 00:00:00 Completed [facility] Hib-HbOC 1997-04-19 00:00:00 Completed [facility] IPV 1997-04-19 00:00:00 Completed [facility] DTaP, Unspecified Formulation 1997-04-19 00:00:00 Completed [facility] Hib-HbOC 1997-04-19 00:00:00 Completed [facility] IPV 1997-04-19 00:00:00 Completed [facility] DTaP, Unspecified Formulation 1997-04-19 00:00:00 Completed [facility] Hib-HbOC 1997-04-19 00:00:00 Completed [facility] IPV 1997-04-19 00:00:00 Completed [facility] DTaP, Unspecified Formulation 1997-04-19 00:00:00 Completed [facility] Hib-HbOC 1997-04-19 00:00:00 Completed [facility] IPV 1997-04-19 00:00:00 Completed [facility] DTaP, Unspecified Formulation 1997-04-19 00:00:00 Completed [facility] Hib-HbOC 1997-04-19 00:00:00 Completed [facility] IPV 1997-04-19 00:00:00 Completed [facility] DTaP, Unspecified Formulation 1997-04-19 00:00:00 Completed [facility] Hib-HbOC 1997-04-19 00:00:00 Completed [facility] IPV 1997-04-19 00:00:00 Completed [facility] DTaP, Unspecified Formulation 1997-04-19 00:00:00 Completed [facility] Hib-HbOC 1997-04-19 00:00:00 Completed [facility] IPV 1997-04-19 00:00:00 Completed [facility] DTaP, Unspecified Formulation 1997-04-19 00:00:00 Completed [facility] Hib-HbOC 1997-04-19 00:00:00 Completed [facility] IPV 1997-04-19 00:00:00 Completed [facility] DTaP, Unspecified Formulation 1997-04-19 00:00:00 Completed [facility] Hib-HbOC 1997-04-19 00:00:00 Completed [facility] IPV 1997-04-19 00:00:00 Completed [facility] DTaP, Unspecified Formulation 1997-04-19 00:00:00 Completed [facility] Hib-HbOC 1997-04-19 00:00:00 Completed [facility] IPV 1997-04-19 00:00:00 Completed [facility] DTaP, Unspecified Formulation 1997-04-19 00:00:00 Completed [facility] Hib-HbOC 1997-04-19 00:00:00 Completed [facility] IPV 1997-04-19 00:00:00 Completed [facility] DTaP, Unspecified Formulation 1997-04-19 00:00:00 Completed [facility] Hib-HbOC 1997-04-19 00:00:00 Completed [facility] IPV 1997-04-19 00:00:00 Completed [facility] DTaP, Unspecified Formulation 1997-04-19 00:00:00 Completed [facility] Hib-HbOC 1997-04-19 00:00:00 Completed [facility] IPV 1997-04-19 00:00:00 Completed [facility] DTaP, Unspecified Formulation 1997-04-19 00:00:00 Completed [facility] Hib-HbOC 1997-04-19 00:00:00 Completed [facility] IPV 1997-04-19 00:00:00 Completed [facility] DTaP, Unspecified Formulation 1997-04-19 00:00:00 Completed [facility] Hib-HbOC 1997-02-10 00:00:00 Completed [facility] IPV 1997-02-10 00:00:00 Completed [facility] DTaP, Unspecified Formulation 1997-02-10 00:00:00 Completed [facility] Hib-HbOC 1997-02-10 00:00:00 Completed [facility] IPV 1997-02-10 00:00:00 Completed [facility] DTaP, Unspecified Formulation 1997-02-10 00:00:00 Completed [facility] Hib-HbOC 1997-02-10 00:00:00 Completed [facility] IPV 1997-02-10 00:00:00 Completed [facility] DTaP, Unspecified Formulation 1997-02-10 00:00:00 Completed [facility] Hib-HbOC 1997-02-10 00:00:00 Completed [facility] IPV 1997-02-10 00:00:00 Completed [facility] DTaP, Unspecified Formulation 1997-02-10 00:00:00 Completed [facility] Hib-HbOC 1997-02-10 00:00:00 Completed [facility] IPV 1997-02-10 00:00:00 Completed [facility] DTaP, Unspecified Formulation 1997-02-10 00:00:00 Completed [facility] Hib-HbOC 1997-02-10 00:00:00 Completed [facility] IPV 1997-02-10 00:00:00 Completed [facility] DTaP, Unspecified Formulation 1997-02-10 00:00:00 Completed [facility] Hib-HbOC 1997-02-10 00:00:00 Completed [facility] IPV 1997-02-10 00:00:00 Completed [facility] DTaP, Unspecified Formulation 1997-02-10 00:00:00 Completed [facility] Hib-HbOC 1997-02-10 00:00:00 Completed [facility] IPV 1997-02-10 00:00:00 Completed [facility] DTaP, Unspecified Formulation 1997-02-10 00:00:00 Completed [facility] Hib-HbOC 1997-02-10 00:00:00 Completed [facility] IPV 1997-02-10 00:00:00 Completed [facility] DTaP, Unspecified Formulation 1997-02-10 00:00:00 Completed [facility] Hib-HbOC 1997-02-10 00:00:00 Completed [facility] IPV 1997-02-10 00:00:00 Completed [facility] DTaP, Unspecified Formulation 1997-02-10 00:00:00 Completed [facility] Hib-HbOC 1997-02-10 00:00:00 Completed [facility] IPV 1997-02-10 00:00:00 Completed [facility] DTaP, Unspecified Formulation 1997-02-10 00:00:00 Completed [facility] Hib-HbOC 1997-02-10 00:00:00 Completed [facility] IPV 1997-02-10 00:00:00 Completed [facility] DTaP, Unspecified Formulation 1997-02-10 00:00:00 Completed [facility] Hib-HbOC 1997-02-10 00:00:00 Completed [facility] IPV 1997-02-10 00:00:00 Completed [facility] DTaP, Unspecified Formulation 1997-02-10 00:00:00 Completed [facility] Hib-HbOC 1997-02-10 00:00:00 Completed [facility] IPV 1997-02-10 00:00:00 Completed [facility] DTaP, Unspecified Formulation 1997-02-10 00:00:00 Completed [facility] Hib-HbOC 1997-02-10 00:00:00 Completed [facility] IPV 1997-02-10 00:00:00 Completed [facility] DTaP, Unspecified Formulation 1997-02-10 00:00:00 Completed [facility] Hib-HbOC 1997-02-10 00:00:00 Completed [facility] IPV 1997-02-10 00:00:00 Completed [facility] DTaP, Unspecified Formulation 1997-02-10 00:00:00 Completed [facility] Hib-HbOC 1997-02-10 00:00:00 Completed [facility] IPV 1997-02-10 00:00:00 Completed [facility] DTaP, Unspecified Formulation 1997-02-10 00:00:00 Completed [facility] Hib-HbOC 1997-02-10 00:00:00 Completed [facility] IPV 1997-02-10 00:00:00 Completed [facility] DTaP, Unspecified Formulation 1997-02-10 00:00:00 Completed [facility] Hib-HbOC 1997-02-10 00:00:00 Completed [facility] IPV 1997-02-10 00:00:00 Completed [facility] DTaP, Unspecified Formulation 1997-02-10 00:00:00 Completed [facility] Hib-HbOC 1997-02-10 00:00:00 Completed [facility] IPV 1997-02-10 00:00:00 Completed [facility] DTaP, Unspecified Formulation 1997-02-10 00:00:00 Completed [facility] Hib-HbOC 1997-02-10 00:00:00 Completed [facility] IPV 1997-02-10 00:00:00 Completed [facility] DTaP, Unspecified Formulation 1997-02-10 00:00:00 Completed [facility] Hib-HbOC 1997-02-10 00:00:00 Completed [facility] IPV 1997-02-10 00:00:00 Completed [facility] DTaP, Unspecified Formulation 1997-02-10 00:00:00 Completed [facility] Hep B, Adol or Pedi Dosage 1997-01-19 00:00:00 Completed [facility] Hep B, Adol or Pedi Dosage 1997-01-19 00:00:00 Completed [facility] Hep B, Adol or Pedi Dosage 1997-01-19 00:00:00 Completed [facility] Hep B, Adol or Pedi Dosage 1997-01-19 00:00:00 Completed [facility] Hep B, Adol or Pedi Dosage 1997-01-19 00:00:00 Completed [facility] Hep B, Adol or Pedi Dosage 1997-01-19 00:00:00 Completed [facility] Hep B, Adol or Pedi Dosage 1997-01-19 00:00:00 Completed [facility] Hep B, Adol or Pedi Dosage 1997-01-19 00:00:00 Completed [facility] Hep B, Adol or Pedi Dosage 1997-01-19 00:00:00 Completed [facility] Hep B, Adol or Pedi Dosage 1997-01-19 00:00:00 Completed [facility] Hep B, Adol or Pedi Dosage 1997-01-19 00:00:00 Completed [facility] Hep B, Adol or Pedi Dosage 1997-01-19 00:00:00 Completed [facility] Hep B, Adol or Pedi Dosage 1997-01-19 00:00:00 Completed [facility] Hep B, Adol or Pedi Dosage 1997-01-19 00:00:00 Completed [facility] Hep B, Adol or Pedi Dosage 1997-01-19 00:00:00 Completed [facility] Hep B, Adol or Pedi Dosage 1997-01-19 00:00:00 Completed [facility] Hep B, Adol or Pedi Dosage 1997-01-19 00:00:00 Completed [facility] Hep B, Adol or Pedi Dosage 1997-01-19 00:00:00 Completed [facility] Hep B, Adol or Pedi Dosage 1997-01-19 00:00:00 Completed [facility] Hep B, Adol or Pedi Dosage 1997-01-19 00:00:00 Completed [facility] Hep B, Adol or Pedi Dosage 1997-01-19 00:00:00 Completed [facility] Hep B, Adol or Pedi Dosage 1997-01-19 00:00:00 Completed [facility] Hep B, Adol or Pedi Dosage 1996 00:00:00 Completed [facility] Hep B, Adol or Pedi Dosage 1996 00:00:00 Completed [facility] Hep B, Adol or Pedi Dosage 1996 00:00:00 Completed [facility] Hep B, Adol or Pedi Dosage 1996 00:00:00 Completed [facility] Hep B, Adol or Pedi Dosage 1996 00:00:00 Completed [facility] Hep B, Adol or Pedi Dosage 1996 00:00:00 Completed [facility] Hep B, Adol or Pedi Dosage 1996 00:00:00 Completed [facility] Hep B, Adol or Pedi Dosage 1996 00:00:00 Completed [facility] Hep B, Adol or Pedi Dosage 1996 00:00:00 Completed [facility] Hep B, Adol or Pedi Dosage 1996 00:00:00 Completed [facility] Hep B, Adol or Pedi Dosage 1996 00:00:00 Completed [facility] Hep B, Adol or Pedi Dosage 1996 00:00:00 Completed [facility] Hep B, Adol or Pedi Dosage 1996 00:00:00 Completed [facility] Hep B, Adol or Pedi Dosage 1996 00:00:00 Completed [facility] Hep B, Adol or Pedi Dosage 1996 00:00:00 Completed [facility] Hep B, Adol or Pedi Dosage 1996 00:00:00 Completed [facility] Hep B, Adol or Pedi Dosage 1996 00:00:00 Completed [facility] Hep B, Adol or Pedi Dosage 1996 00:00:00 Completed [facility] Hep B, Adol or Pedi Dosage 1996 00:00:00 Completed [facility] Hep B, Adol or Pedi Dosage 1996 00:00:00 Completed [facility] Hep B, Adol or Pedi Dosage 1996 00:00:00 Completed [facility] Hep B, Adol or Pedi Dosage 1996 00:00:00 Completed [facility] TDAP Unknown Completed [facility] HPV9 Unknown Completed [facility] Influenza Virus Vaccine Quad .5 mL IM 6+ MO (FLUZONE/FLULAVAL/FL UARIX) Unknown Completed [facility] DTaP, Unspecified Formulation Unknown Completed [facility] DPT/HIB Unknown Completed [facility] Hep B, Adol or Pedi Dosage Unknown Completed [facility] Hib-HbOC Unknown Completed [facility] Meningococcal Polysaccharide (groups A, C, Y and W-135) conjugate vaccine (MCV4P) Unknown Completed [facility] MMR Unknown Completed [facility] IPV Unknown Completed [facility] Poliovirus, Live, Oral, Trivalent Unknown Completed [facility] Varicella (varivax)(chicken pox) Unknown Completed [facility] TDAP Unknown Completed [facility] HPV9 Unknown Completed [facility] Influenza Virus Vaccine Quad .5 mL IM 6+ MO (FLUZONE/FLULAVAL/FL UARIX) Unknown Completed [facility] DTaP, Unspecified Formulation Unknown Completed [facility] DPT/HIB Unknown Completed [facility] Hep B, Adol or Pedi Dosage Unknown Completed [facility] Hib-HbOC Unknown Completed [facility] Meningococcal Polysaccharide (groups A, C, Y and W-135) conjugate vaccine (MCV4P) Unknown Completed [facility] MMR Unknown Completed [facility] IPV Unknown Completed [facility] Poliovirus, Live, Oral, Trivalent Unknown Completed [facility] Varicella (varivax)(chicken pox) Unknown Completed [facility] TDAP Unknown Completed [facility] HPV9 Unknown Completed [facility] Influenza Virus Vaccine Quad .5 mL IM 6+ MO (FLUZONE/FLULAVAL/FL UARIX) Unknown Completed [facility] DTaP, Unspecified Formulation Unknown Completed [facility] DPT/HIB Unknown Completed [facility] Hep B, Adol or Pedi Dosage Unknown Completed [facility] Hib-HbOC Unknown Completed [facility] Meningococcal Polysaccharide (groups A, C, Y and W-135) conjugate vaccine (MCV4P) Unknown Completed [facility] MMR Unknown Completed [facility] IPV Unknown Completed [facility] Poliovirus, Live, Oral, Trivalent Unknown Completed [facility] Varicella (varivax)(chicken pox) Unknown Completed [facility] TDAP Unknown Completed [facility] HPV9 Unknown Completed [facility] Influenza Virus Vaccine Quad .5 mL IM 6+ MO (FLUZONE/FLULAVAL/FL UARIX) Unknown Completed [facility] DTaP, Unspecified Formulation Unknown Completed [facility] DPT/HIB Unknown Completed [facility] Hep B, Adol or Pedi Dosage Unknown Completed [facility] Hib-HbOC Unknown Completed [facility] Meningococcal Polysaccharide (groups A, C, Y and W-135) conjugate vaccine (MCV4P) Unknown Completed [facility] MMR Unknown Completed [facility] IPV Unknown Completed [facility] Poliovirus, Live, Oral, Trivalent Unknown Completed [facility] Varicella (varivax)(chicken pox) Unknown Completed [facility] TDAP Unknown Completed [facility] HPV9 Unknown Completed [facility] Influenza Virus Vaccine Quad .5 mL IM 6+ MO (FLUZONE/FLULAVAL/FL UARIX) Unknown Completed [facility] DTaP, Unspecified Formulation Unknown Completed [facility] DPT/HIB Unknown Completed [facility] Hep B, Adol or Pedi Dosage Unknown Completed [facility] Hib-HbOC Unknown Completed [facility] Meningococcal Polysaccharide (groups A, C, Y and W-135) conjugate vaccine (MCV4P) Unknown Completed [facility] MMR Unknown Completed [facility] IPV Unknown Completed [facility] Poliovirus, Live, Oral, Trivalent Unknown Completed [facility] Varicella (varivax)(chicken pox) Unknown Completed [facility] TDAP Unknown Completed [facility] HPV9 Unknown Completed [facility] Influenza Virus Vaccine Quad .5 mL IM 6+ MO (FLUZONE/FLULAVAL/FL UARIX) Unknown Completed [facility] DTaP, Unspecified Formulation Unknown Completed [facility] DPT/HIB Unknown Completed [facility] Hep B, Adol or Pedi Dosage Unknown Completed [facility] Hib-HbOC Unknown Completed [facility] Meningococcal Polysaccharide (groups A, C, Y and W-135) conjugate vaccine (MCV4P) Unknown Completed [facility] MMR Unknown Completed [facility] IPV Unknown Completed [facility] Poliovirus, Live, Oral, Trivalent Unknown Completed [facility] Varicella (varivax)(chicken pox) Unknown Completed [facility] TDAP Unknown Completed [facility] HPV9 Unknown Completed [facility] Influenza Virus Vaccine Quad .5 mL IM 6+ MO (FLUZONE/FLULAVAL/FL UARIX) Unknown Completed [facility] DTaP, Unspecified Formulation Unknown Completed [facility] DPT/HIB Unknown Completed [facility] Hep B, Adol or Pedi Dosage Unknown Completed [facility] Hib-HbOC Unknown Completed [facility] Meningococcal Polysaccharide (groups A, C, Y and W-135) conjugate vaccine (MCV4P) Unknown Completed [facility] MMR Unknown Completed [facility] IPV Unknown Completed [facility] Poliovirus, Live, Oral, Trivalent Unknown Completed [facility] Varicella (varivax)(chicken pox) Unknown Completed [facility] TDAP Unknown Completed [facility] HPV9 Unknown Completed [facility] Influenza Virus Vaccine Quad .5 mL IM 6+ MO (FLUZONE/FLULAVAL/FL UARIX) Unknown Completed [facility] DTaP, Unspecified Formulation Unknown Completed [facility] DPT/HIB Unknown Completed [facility] Hep B, Adol or Pedi Dosage Unknown Completed [facility] Hib-HbOC Unknown Completed [facility] Meningococcal Polysaccharide (groups A, C, Y and W-135) conjugate vaccine (MCV4P) Unknown Completed [facility] MMR Unknown Completed [facility] IPV Unknown Completed [facility] Poliovirus, Live, Oral, Trivalent Unknown Completed [facility] Varicella (varivax)(chicken pox) Unknown Completed [facility] TDAP Unknown Completed [facility] HPV9 Unknown Completed [facility] Influenza Virus Vaccine Quad .5 mL IM 6+ MO (FLUZONE/FLULAVAL/FL UARIX) Unknown Completed [facility] DTaP, Unspecified Formulation Unknown Completed [facility] DPT/HIB Unknown Completed [facility] Hep B, Adol or Pedi Dosage Unknown Completed [facility] Hib-HbOC Unknown Completed [facility] Meningococcal Polysaccharide (groups A, C, Y and W-135) conjugate vaccine (MCV4P) Unknown Completed [facility] MMR Unknown Completed [facility] IPV Unknown Completed [facility] Poliovirus, Live, Oral, Trivalent Unknown Completed [facility] Varicella (varivax)(chicken pox) Unknown Completed [facility] TDAP Unknown Completed [facility] HPV9 Unknown Completed [facility] Influenza Virus Vaccine Quad .5 mL IM 6+ MO (FLUZONE/FLULAVAL/FL UARIX) Unknown Completed [facility] DTaP, Unspecified Formulation Unknown Completed [facility] DPT/HIB Unknown Completed [facility] Hep B, Adol or Pedi Dosage Unknown Completed [facility] Hib-HbOC Unknown Completed [facility] Meningococcal Polysaccharide (groups A, C, Y and W-135) conjugate vaccine (MCV4P) Unknown Completed [facility] MMR Unknown Completed [facility] IPV Unknown Completed [facility] Poliovirus, Live, Oral, Trivalent Unknown Completed [facility] Varicella (varivax)(chicken pox) Unknown Completed [facility] TDAP Unknown Completed [facility] HPV9 Unknown Completed [facility] Influenza Virus Vaccine Quad .5 mL IM 6+ MO (FLUZONE/FLULAVAL/FL UARIX) Unknown Completed [facility] DTaP, Unspecified Formulation Unknown Completed [facility] DPT/HIB Unknown Completed [facility] Hep B, Adol or Pedi Dosage Unknown Completed [facility] Hib-HbOC Unknown Completed [facility] Meningococcal Polysaccharide (groups A, C, Y and W-135) conjugate vaccine (MCV4P) Unknown Completed [facility] MMR Unknown Completed [facility] IPV Unknown Completed [facility] Poliovirus, Live, Oral, Trivalent Unknown Completed [facility] Varicella (varivax)(chicken pox) Unknown Completed [facility] TDAP Unknown Completed [facility] HPV9 Unknown Completed [facility] Influenza Virus Vaccine Quad .5 mL IM 6+ MO (FLUZONE/FLULAVAL/FL UARIX) Unknown Completed [facility] DTaP, Unspecified Formulation Unknown Completed [facility] DPT/HIB Unknown Completed [facility] Hep B, Adol or Pedi Dosage Unknown Completed [facility] Hib-HbOC Unknown Completed [facility] Meningococcal Polysaccharide (groups A, C, Y and W-135) conjugate vaccine (MCV4P) Unknown Completed [facility] MMR Unknown Completed [facility] IPV Unknown Completed [facility] Poliovirus, Live, Oral, Trivalent Unknown Completed [facility] Varicella (varivax)(chicken pox) Unknown Completed [facility] TDAP Unknown Completed [facility] HPV9 Unknown Completed [facility] Influenza Virus Vaccine Quad .5 mL IM 6+ MO (FLUZONE/FLULAVAL/FL UARIX) Unknown Completed [facility] DTaP, Unspecified Formulation Unknown Completed [facility] DPT/HIB Unknown Completed [facility] Hep B, Adol or Pedi Dosage Unknown Completed [facility] Hib-HbOC Unknown Completed [facility] Meningococcal Polysaccharide (groups A, C, Y and W-135) conjugate vaccine (MCV4P) Unknown Completed [facility] MMR Unknown Completed [facility] IPV Unknown Completed [facility] Poliovirus, Live, Oral, Trivalent Unknown Completed [facility] Varicella (varivax)(chicken pox) Unknown Completed [facility] TDAP Unknown Completed [facility] HPV9 Unknown Completed [facility] Influenza Virus Vaccine Quad .5 mL IM 6+ MO (FLUZONE/FLULAVAL/FL UARIX) Unknown Completed [facility] DTaP, Unspecified Formulation Unknown Completed [facility] DPT/HIB Unknown Completed [facility] Hep B, Adol or Pedi Dosage Unknown Completed [facility] Hib-HbOC Unknown Completed [facility] Meningococcal Polysaccharide (groups A, C, Y and W-135) conjugate vaccine (MCV4P) Unknown Completed [facility] MMR Unknown Completed [facility] IPV Unknown Completed [facility] Poliovirus, Live, Oral, Trivalent Unknown Completed [facility] Varicella (varivax)(chicken pox) Unknown Completed [facility] TDAP Unknown Completed [facility] HPV9 Unknown Completed [facility] Influenza Virus Vaccine Quad .5 mL IM 6+ MO (FLUZONE/FLULAVAL/FL UARIX) Unknown Completed [facility] DTaP, Unspecified Formulation Unknown Completed [facility] DPT/HIB Unknown Completed [facility] Hep B, Adol or Pedi Dosage Unknown Completed [facility] Hib-HbOC Unknown Completed [facility] Meningococcal Polysaccharide (groups A, C, Y and W-135) conjugate vaccine (MCV4P) Unknown Completed [facility] MMR Unknown Completed [facility] IPV Unknown Completed [facility] Poliovirus, Live, Oral, Trivalent Unknown Completed [facility] Varicella (varivax)(chicken pox) Unknown Completed [facility] DPT/HIB Unknown Completed [facility] Meningococcal Polysaccharide (groups A, C, Y and W-135) conjugate vaccine (MCV4P) Unknown Completed [facility] Poliovirus, Live, Oral, Trivalent Unknown Completed [facility] TDAP Unknown Completed [facility] HPV9 Unknown Completed [facility] Influenza Virus Vaccine Quad .5 mL IM 6+ MO (FLUZONE/FLULAVAL/FL UARIX) Unknown Completed [facility] DTaP, Unspecified Formulation Unknown Completed [facility] Hep B, Adol or Pedi Dosage Unknown Completed [facility] Hib-HbOC Unknown Completed [facility] MMR Unknown Completed [facility] IPV Unknown Completed [facility] Varicella (varivax)(chicken pox) Unknown Completed [facility] TDAP Unknown Completed [facility] HPV9 Unknown Completed [facility] Influenza Virus Vaccine Quad .5 mL IM 6+ MO (FLUZONE/FLULAVAL/FL UARIX) Unknown Completed [facility] DTaP, Unspecified Formulation Unknown Completed [facility] DPT/HIB Unknown Completed [facility] Hep B, Adol or Pedi Dosage Unknown Completed [facility] Hib-HbOC Unknown Completed [facility] Meningococcal Polysaccharide (groups A, C, Y and W-135) conjugate vaccine (MCV4P) Unknown Completed [facility] MMR Unknown Completed [facility] IPV Unknown Completed [facility] Poliovirus, Live, Oral, Trivalent Unknown Completed [facility] Varicella (varivax)(chicken pox) Unknown Completed [facility] TDAP Unknown Completed [facility] HPV9 Unknown Completed [facility] Influenza Virus Vaccine Quad .5 mL IM 6+ MO (FLUZONE/FLULAVAL/FL UARIX) Unknown Completed [facility] DTaP, Unspecified Formulation Unknown Completed [facility] DPT/HIB Unknown Completed [facility] Hep B, Adol or Pedi Dosage Unknown Completed [facility] Hib-HbOC Unknown Completed [facility] Meningococcal Polysaccharide (groups A, C, Y and W-135) conjugate vaccine (MCV4P) Unknown Completed [facility] MMR Unknown Completed [facility] IPV Unknown Completed [facility] Poliovirus, Live, Oral, Trivalent Unknown Completed [facility] Varicella (varivax)(chicken pox) Unknown Completed [facility] TDAP Unknown Completed [facility] HPV9 Unknown Completed [facility] Influenza Virus Vaccine Quad .5 mL IM 6+ MO (FLUZONE/FLULAVAL/FL UARIX) Unknown Completed [facility] DTaP, Unspecified Formulation Unknown Completed [facility] DPT/HIB Unknown Completed [facility] Hep B, Adol or Pedi Dosage Unknown Completed [facility] Hib-HbOC Unknown Completed [facility] Meningococcal Polysaccharide (groups A, C, Y and W-135) conjugate vaccine (MCV4P) Unknown Completed [facility] MMR Unknown Completed [facility] IPV Unknown Completed [facility] Poliovirus, Live, Oral, Trivalent Unknown Completed [facility] Varicella (varivax)(chicken pox) Unknown Completed [facility] TDAP Unknown Completed [facility] HPV9 Unknown Completed [facility] Influenza Virus Vaccine Quad .5 mL IM 6+ MO (FLUZONE/FLULAVAL/FL UARIX) Unknown Completed [facility] DTaP, Unspecified Formulation Unknown Completed [facility] DPT/HIB Unknown Completed [facility] Hep B, Adol or Pedi Dosage Unknown Completed [facility] Hib-HbOC Unknown Completed [facility] Meningococcal Polysaccharide (groups A, C, Y and W-135) conjugate vaccine (MCV4P) Unknown Completed [facility] MMR Unknown Completed [facility] IPV Unknown Completed [facility] Poliovirus, Live, Oral, Trivalent Unknown Completed [facility] Varicella (varivax)(chicken pox) Unknown Completed [facility] DPT/HIB Unknown Completed [facility] Meningococcal Polysaccharide (groups A, C, Y and W-135) conjugate vaccine (MCV4P) Unknown Completed [facility] Poliovirus, Live, Oral, Trivalent Unknown Completed [facility] TDAP Unknown Completed [facility] HPV9 Unknown Completed [facility] Influenza Virus Vaccine Quad .5 mL IM 6+ MO (FLUZONE/FLULAVAL/FL UARIX) Unknown Completed [facility] DTaP, Unspecified Formulation Unknown Completed [facility] Hep B, Adol or Pedi Dosage Unknown Completed [facility] Hib-HbOC Unknown Completed [facility] MMR Unknown Completed [facility] IPV Unknown Completed [facility] Varicella (varivax)(chicken pox) Unknown Completed [facility] DTaP, Unspecified Formulation Unknown Completed [facility] DPT/HIB Unknown Completed [facility] Hep B, Adol or Pedi Dosage Unknown Completed [facility] Hib-HbOC Unknown Completed [facility] Meningococcal Polysaccharide (groups A, C, Y and W-135) conjugate vaccine (MCV4P) Unknown Completed [facility] MMR Unknown Completed [facility] IPV Unknown Completed [facility] Poliovirus, Live, Oral, Trivalent Unknown Completed [facility] Varicella (varivax)(chicken pox) Unknown Completed [facility] TDAP Unknown Completed [facility] HPV9 Unknown Completed [facility] Influenza Virus Vaccine Quad .5 mL IM 6+ MO (FLUZONE/FLULAVAL/FL UARIX) Unknown Completed [facility] TDAP Unknown Completed [facility] HPV9 Unknown Completed [facility] Influenza Virus Vaccine Quad .5 mL IM 6+ MO (FLUZONE/FLULAVAL/FL UARIX) Unknown Completed [facility] DTaP, Unspecified Formulation Unknown Completed [facility] DPT/HIB Unknown Completed [facility] Hep B, Adol or Pedi Dosage Unknown Completed [facility] Hib-HbOC Unknown Completed [facility] Meningococcal Polysaccharide (groups A, C, Y and W-135) conjugate vaccine (MCV4P) Unknown Completed [facility] MMR Unknown Completed [facility] IPV Unknown Completed [facility] Poliovirus, Live, Oral, Trivalent Unknown Completed [facility] Varicella (varivax)(chicken pox) Unknown Completed [facility] TDAP Unknown Completed [facility] HPV9 Unknown Completed [facility] Influenza Virus Vaccine Quad .5 mL IM 6+ MO (FLUZONE/FLULAVAL/FL UARIX) Unknown Completed [facility] DTaP, Unspecified Formulation Unknown Completed [facility] DPT/HIB Unknown Completed [facility] Hep B, Adol or Pedi Dosage Unknown Completed [facility] Hib-HbOC Unknown Completed [facility] Meningococcal Polysaccharide (groups A, C, Y and W-135) conjugate vaccine (MCV4P) Unknown Completed [facility] MMR Unknown Completed [facility] IPV Unknown Completed [facility] Poliovirus, Live, Oral, Trivalent Unknown Completed [facility] Varicella (varivax)(chicken pox) Unknown Completed [facility] TDAP Unknown Completed [facility] HPV9 Unknown Completed [facility] Influenza Virus Vaccine Quad .5 mL IM 6+ MO (FLUZONE/FLULAVAL/FL UARIX) Unknown Completed [facility] DTaP, Unspecified Formulation Unknown Completed [facility] DPT/HIB Unknown Completed [facility] Hep B, Adol or Pedi Dosage Unknown Completed [facility] Hib-HbOC Unknown Completed [facility] Meningococcal Polysaccharide (groups A, C, Y and W-135) conjugate vaccine (MCV4P) Unknown Completed [facility] MMR Unknown Completed [facility] IPV Unknown Completed [facility] Poliovirus, Live, Oral, Trivalent Unknown Completed [facility] Varicella (varivax)(chicken pox) Unknown Completed [facility] DPT/HIB Unknown Completed [facility] Meningococcal Polysaccharide (groups A, C, Y and W-135) conjugate vaccine (MCV4P) Unknown Completed [facility] Poliovirus, Live, Oral, Trivalent Unknown Completed [facility] TDAP Unknown Completed [facility] HPV9 Unknown Completed [facility] Influenza Virus Vaccine Quad .5 mL IM 6+ MO (FLUZONE/FLULAVAL/FL UARIX) Unknown Completed [facility] DTaP, Unspecified Formulation Unknown Completed [facility] Hep B, Adol or Pedi Dosage Unknown Completed [facility] Hib-HbOC Unknown Completed [facility] MMR Unknown Completed [facility] IPV Unknown Completed [facility] Varicella (varivax)(chicken pox) Unknown Completed [facility] Vital Signs Vital Name Observation Time Observation Value Comments S ource Systolic blood pressure 2023-12-04 19:21:00 108 mm[Hg] [facility] Diastolic blood pressure 2023-12-04 19:21:00 69 mm[Hg] [facility] Heart rate 2023-12-04 19:21:00 75 /min [facility] Body temperature 2023-12-04 19:21:00 36.78 Mariella [facility] Respiratory rate 2023-12-04 19:21:00 18 /min [facility] Body height 2023-12-04 19:21:00 167.6 cm [facility] Body weight 2023-12-04 19:21:00 73.483 kg [facility] BMI 2023-12-04 19:21:00 26.15 kg/m2 [facility] Systolic blood pressure 2023-11-13 22:30:00 130 mm[Hg] [facility] Diastolic blood pressure 2023-11-13 22:30:00 80 mm[Hg] [facility] Heart rate 2023-11-13 22:30:00 93 /min [facility] Body temperature 2023-11-13 22:30:00 36.11 Mariella [facility] Body height 2023-11-13 22:30:00 170.2 cm [facility] Body weight 2023-11-13 22:30:00 72.303 kg [facility] BMI 2023-11-13 22:30:00 24.97 kg/m2 [facility] Systolic blood pressure 2023-11-06 21:08:00 110 mm[Hg] [facility] Diastolic blood pressure 2023-11-06 21:08:00 68 mm[Hg] [facility] Heart rate 2023-11-06 21:08:00 75 /min [facility] Body temperature 2023-11-06 21:08:00 36.61 Mariella [facility] Respiratory rate 2023-11-06 21:08:00 17 /min [facility] Body height 2023-11-06 21:08:00 170.2 cm [facility] Body weight 2023-11-06 21:08:00 75.116 kg [facility] BMI 2023-11-06 21:08:00 25.94 kg/m2 [facility] Systolic blood pressure 2023-10-25 19:24:00 106 mm[Hg] [facility] Diastolic blood pressure 2023-10-25 19:24:00 71 mm[Hg] [facility] Heart rate 2023-10-25 19:24:00 87 /min [facility] Body temperature 2023-10-25 19:24:00 36.72 Mariella [facility] Respiratory rate 2023-10-25 19:24:00 16 /min [facility] Body height 2023-10-25 19:24:00 170.2 cm [facility] Body weight 2023-10-25 19:24:00 75.297 kg [facility] BMI 2023-10-25 19:24:00 26.00 kg/m2 [facility] Systolic blood pressure 2023-09-27 15:00:00 106 mm[Hg] [facility] Diastolic blood pressure 2023-09-27 15:00:00 64 mm[Hg] [facility] Heart rate 2023-09-27 15:00:00 61 /min [facility] Body temperature 2023-09-27 15:00:00 36.33 Mariella [facility] Respiratory rate 2023-09-27 15:00:00 18 /min [facility] Oxygen saturation in Arterial blood by Pulse oximetry 2023-09-27 15:00:00 98 /min [facility] Body height 2023-09-25 14:00:00 170.2 cm [facility] Body weight 2023-09-25 14:00:00 80.74 kg [facility] BMI 2023-09-25 14:00:00 27.88 kg/m2 [facility] Systolic blood pressure 2023-09-20 20:39:00 104 mm[Hg] [facility] Diastolic blood pressure 2023-09-20 20:39:00 66 mm[Hg] [facility] Heart rate 2023-09-20 20:39:00 89 /min [facility] Respiratory rate 2023-09-20 20:39:00 18 /min [facility] Body height 2023-09-20 20:39:00 170.2 cm [facility] Body weight 2023-09-20 20:39:00 80.287 kg [facility] BMI 2023-09-20 20:39:00 27.72 kg/m2 [facility] Systolic blood pressure 2023-09-13 16:29:00 107 mm[Hg] [facility] Diastolic blood pressure 2023-09-13 16:29:00 72 mm[Hg] [facility] Heart rate 2023-09-13 16:29:00 98 /min [facility] Respiratory rate 2023-09-13 16:29:00 18 /min [facility] Body height 2023-09-13 16:29:00 170.2 cm [facility] Body weight 2023-09-13 16:29:00 77.565 kg [facility] BMI 2023-09-13 16:29:00 26.78 kg/m2 [facility] Systolic blood pressure 2023-08-23 19:08:00 126 mm[Hg] [facility] Diastolic blood pressure 2023-08-23 19:08:00 84 mm[Hg] [place] [facility] Heart rate 2023-08-23 19:08:00 99 /min [facility] 2023-08-23 19:08:00 18 /min [facility] Body height 2023-08-23 19:08:00 170.2 cm [facility] weight 2023-08-23 19:08:00 78.019 kg [facility] BMI 2023-08-23 19:08:00 26.94 kg/m2 [facility] Systolic blood pressure 2023-08-09 18:33:00 120 mm[Hg] [place] [facility] Diastolic blood pressure 2023-08-09 18:33:00 70 mm[Hg] [facility] Heart rate 2023-08-09 18:33:00 71 /min [facility] Respiratory rate 2023-08-09 18:33:00 18 /min [facility] Body height 2023-08-09 18:33:00 170.2 cm [facility] Body weight 2023-08-09 18:33:00 78.926 kg [facility] BMI 2023-08-09 18:33:00 27.25 kg/m2 [facility] Systolic blood pressure 2023-07-19 17:08:00 126 mm[Hg] [facility] Diastolic blood pressure 2023-07-19 17:08:00 82 mm[Hg] [facility] Heart rate 2023-07-19 17:08:00 94 /min [facility] Respiratory rate 2023-07-19 17:08:00 18 /min [facility] Body height 2023-07-19 17:08:00 170.2 cm [facility] Body weight 2023-07-19 17:08:00 79.379 kg [facility] BMI 2023-07-19 17:08:00 27.41 kg/m2 [facility] Systolic blood pressure 2023-06-14 16:26:00 114 mm[Hg] [place] [facility] Diastolic blood pressure 2023-06-14 16:26:00 75 mm[Hg] [facility] Heart rate 2023-06-14 16:26:00 75 /min [facility] Respiratory rate 2023-06-14 16:26:00 18 /min [facility] Body height 2023-06-14 16:26:00 170.2 cm [facility] Body weight 2023-06-14 16:26:00 75.297 kg [facility] BMI 2023-06-14 16:26:00 26.00 kg/m2 [facility] Systolic blood pressure 2023-05-17 16:06:00 119 mm[Hg] [facility] Diastolic blood pressure 2023-05-17 16:06:00 73 mm[Hg] [facility] Heart rate 2023-05-17 16:06:00 116 /min [facility] Respiratory rate 2023-05-17 16:06:00 18 /min [facility] Body height 2023-05-17 16:06:00 170.2 cm [facility] Body weight 2023-05-17 16:06:00 73.029 kg [facility] BMI 2023-05-17 16:06:00 25.22 kg/m2 [facility] Systolic blood pressure 2023-05-07 01:50:00 115 mm[Hg] [facility] Diastolic blood pressure 2023-05-07 01:50:00 70 mm[Hg] [facility] Heart rate 2023-05-07 01:50:00 93 /min [facility] Body temperature 2023-05-07 01:50:00 37.28 Mariella [facility] Respiratory rate 2023-05-07 01:50:00 16 /min [facility] Body height 2023-05-07 01:50:00 170.2 cm [facility] Body weight 2023-05-07 01:50:00 68.947 kg [facility] BMI 2023-05-07 01:50:00 23.81 kg/m2 [facility] Oxygen saturation in Arterial blood by Pulse oximetry 2023-05-07 01:50:00 96 /min [facility] Systolic blood pressure 2023-04-19 15:37:00 125 mm[Hg] [facility] Diastolic blood pressure 2023-04-19 15:37:00 81 mm[Hg] [facility] Heart rate 2023-04-19 15:37:00 97 /min [facility] Body height 2023-04-19 15:37:00 170.2 cm [facility] Body weight 2023-04-19 15:37:00 71.487 kg [facility] BMI 2023-04-19 15:37:00 24.68 kg/m2 [facility] Systolic blood pressure 2023-03-29 19:30:00 113 mm[Hg] [facility] Diastolic blood pressure 2023-03-29 19:30:00 69 mm[Hg] [facility] Heart rate 2023-03-29 19:30:00 88 /min [facility] Respiratory rate 2023-03-29 19:30:00 18 /min [facility] Body weight 2023-03-29 19:30:00 69.4 kg [facility] BMI 2023-03-29 19:30:00 23.96 kg/m2 [facility] Systolic blood pressure 2023-03-22 13:59:00 111 mm[Hg] [facility] Diastolic blood pressure 2023-03-22 13:59:00 73 mm[Hg] [facility] Heart rate 2023-03-22 13:59:00 73 /min [facility] Body temperature 2023-03-22 13:59:00 36.56 Mariella [facility] Body height 2023-03-22 13:59:00 170.2 cm [facility] Body weight 2023-03-22 13:59:00 70.897 kg [facility] BMI 2023-03-22 13:59:00 24.48 kg/m2 [facility] Systolic blood pressure 2023-03-07 02:54:00 125 mm[Hg] [facility] Diastolic blood pressure 2023-03-07 02:54:00 84 mm[Hg] [facility] Heart rate 2023-03-07 02:54:00 107 /min [facility] Body temperature 2023-03-07 02:54:00 37 Mariella [facility] Respiratory rate 2023-03-07 02:54:00 18 /min [facility] Body height 2023-03-07 02:54:00 170.2 cm [facility] Body weight 2023-03-07 02:54:00 74.844 kg [facility] BMI 2023-03-07 02:54:00 25.84 kg/m2 [facility] Oxygen saturation in Arterial blood by Pulse oximetry 2023-03-07 02:54:00 97 /min [facility] Systolic blood pressure 2022-12-20 19:25:00 121 mm[Hg] [facility] Diastolic blood pressure 2022-12-20 19:25:00 73 mm[Hg] [facility] Heart rate 2022-12-20 19:25:00 91 /min [facility] Body temperature 2022-12-20 19:25:00 37 Mariella [facility] Respiratory rate 2022-12-20 19:25:00 18 /min [facility] Body height 2022-12-20 19:25:00 170.2 cm [facility] Body weight 2022-12-20 19:25:00 72.15 kg [facility] BMI 2022-12-20 19:25:00 24.91 kg/m2 [facility] Systolic blood pressure 2022-07-18 19:19:00 129 mm[Hg] [facility] Diastolic blood pressure 2022-07-18 19:19:00 87 mm[Hg] [facility] Heart rate 2022-07-18 19:19:00 101 /min [facility] Body temperature 2022-07-18 19:19:00 36.67 Mariella [facility] Respiratory rate 2022-07-18 19:19:00 18 /min [facility] Body height 2022-07-18 19:19:00 170.2 cm [facility] Body weight 2022-07-18 19:19:00 73.71 kg [facility] BMI 2022-07-18 19:19:00 25.45 kg/m2 [facility] Systolic blood pressure 2021-12-14 13:58:00 115 mm[Hg] [facility] Diastolic blood pressure 2021-12-14 13:58:00 65 mm[Hg] [place] [facility] Heart rate 2021-12-14 13:58:00 82 /min [facility] Body temperature 2021-12-14 13:58:00 36.5 Mariella [facility] Respiratory rate 2021-12-14 13:58:00 16 /min [facility] Body height 2021-12-14 13:58:00 170.2 cm [facility] Body weight 2021-12-14 13:58:00 74.39 kg [facility] BMI 2021-12-14 13:58:00 25.69 kg/m2 [facility] Procedures Procedure Date / Time Performed Performing Clinician Source CONSENT FOR CONTRACEPTION 2023-11-06 06:01:00 Doctor Unassigned, [facility] POCT TEST 2023-11-06 00:00:00 Marcia Ocampo [facility] CBC WITH DIFF 2023-09-26 10:41:00 Marcia Ocampo [facility] POCT GLUCOSE (AUTOMATED) 2023-09-26 03:25:00 Marcia Ocampo [facility] POCT GLUCOSE (AUTOMATED) 2023-09-26 00:48:00 Marcia Ocampo [facility] POCT GLUCOSE (AUTOMATED) 2023-09-25 19:41:00 Marcia Ocampo [facility] CENTRAL NEURAXIAL BLOCK 2023-09-25 16:25:00 Sachin Garza [facility] POCT GLUCOSE (AUTOMATED) 2023-09-25 [facility]:03[facility]23-09-25 [facility] 2023-09-25 14:08:00 DamarisMarcia [facility] CBC WITH DIFF 2023-09-24 18:37:00 DamarsiMarcia [facility] ASSIGNMENT OF BENEFITS 2023-09-24 18:12:12 Docto r Unassigned, [facility] CONSENT/REFUSAL FOR DIAGNOSIS AND TREATMENT 2023-09-24 18:11:48 Doctor Unassigned, [facility] PHYSICIAN ORDERS 2023-09-20 06:01:00 Doctor Unas signed, [facility] CBC WITH DIFF 2023-09-13 17:53:00 DamarisMarcia [facility] DSU PRE-OP 2023-09-13 06:01:00 Doctor Unass igned, [facility] POCT URINALYSIS W/O SPECIFIC GRAVITY 2023-09-13 00:00:00 [facility]AS[facility] 2023-09-12 20:34:00 Damaris [facility] POCT URINALYSIS W/O SPECIFIC GRAVITY 2023-08-23 00:00:00 Damaris [facility] TDAP VACCINE, >11 YRS, IM 2023-08-09 18:28:34 Damaris [facility] SECOND AND THIRD TRIMESTER ULTRASOUND 2023-08-09 15:44:00 Damaris [facility] POCT URINALYSIS W/O SPECIFIC GRAVITY 2023-08-09 00:00:00 Damaris [facility] POCT URINALYSIS W/O SPECIFIC GRAVITY 2023-07-19 00:00:00 Damaris [facility] POCT URINALYSIS W/O SPECIFIC GRAVITY 2023-06-14 00:00:00 Damaris [facility] SECOND AND THIRD TRIMESTER ULTRASOUND 2023-05-29 17:25:00 Damaris [facility] SECOND AND THIRD TRIMESTER ULTRASOUND 2023-05-29 17:10:00 Marcia Ocampo [facility] POCT URINALYSIS W/O SPECIFIC GRAVITY 2023-05-17 00:00:00 Marcia Ocampo [facility] ASSIGNMENT OF BENEFITS 2023-05-07 03:00:45 Docto r Unassigned, [facility] DC INCISION & DRAINAGE ABSCESS COMPLICATED/MULTIPLE 2023-05-07 02:54:06 Atul Sena [facility] CONSENT/REFUSAL FOR DIAGNOSIS AND TREATMENT 2023-05-07 01:48:05 Doctor Unassigned, [facility] POCT URINALYSIS W/O SPECIFIC GRAVITY 2023-04-19 00:00:00 Marcia Ocampo [facility] GLYCOSYLATED HEMOGLOBIN (A1C) 2023-03-27 16:12:00 Marcia Ocampo [facility] <14 WEEKS US LIMITED 2023-03-22 15:38:34 Damaris Marcia [facility] SCANNED LAB RESULTS 2023-03-22 05:01:00 Doctor Leisa pierce, [facility] POCT URINALYSIS W/O SPECIFIC GRAVITY 2023-03-22 00:00:00 Damaris Marcia [facility] URINALYSIS 2023-03-07 03:08:00 Ramirez Sancehz [facility] POCT TEST 2023-03-07 03:07:00 Ramirez Sanchez [facility] NOTICE OF PRIVACY PRACTICES 2023-03-07 02:49:46 Doctor Unassigned, [facility] CONSENT/REFUSAL FOR DIAGNOSIS AND TREATMENT 2023-03-07 02:47:26 Doctor Unassigned, [facility] ASSIGNMENT OF BENEFITS 2022-12-20 19:06:39 Docto r Unassigned, [facility] FLU VACC ([phone]), 6+ MONTHS, IM, QUAD 2021-12-14 14:41:01 [facility] Encounters Start Date/Time End Date/Time Encounter Type Admission Type Attending Clinicians Care Facility Care Department Encounter ID Source 2021-07-06 18:46:[address] [facility] [id number] [facility] 2024-01-31 08:00:00 2024-01-31 08:00:00 Outpatient R MARCIA OCAMPO [facility] [id number] [facility] 2023-12-20 11:30:00 2023-12-20 11:30:00 Outpatient R CARITO PICHARDO [facility] [id number] [facility] 2023-12-18 13:30:00 2023-12-18 13:30:00 Outpatient R RAFICARITO CHU [facility] [id number] [facility] 2023-12-04 14:00:00 2023-12-04 14:37:15 Outpatient R RAFICARITO [facility] [id number] [facility] 2023-12-04 14:00:00 2023-12-04 14:37:15 Office Visit MelvinaCarito [facility] 1.2.840.114 350.1.13.10 4.2.7.2.686 [id number] 134 [id number] [facility] 2023-12-03 14:00:00 2023-12-03 14:00:00 Outpatient R CARITO PICHARDO [facility] [id number] [facility] 2023-11-29 13:45:00 2023-11-29 13:45:00 Outpatient R MARCIA OCAMPO [facility] [id number] [facility] 2023-11-19 00:00:00 2023-11-19 00:00:00 Refill RafiCarito chu [facility] 1.2.840.114 350.1.13.10 4.2.7.2.686 [id number] [facility] 2023-11-13 16:00:00 2023-11-13 16:44:[address] [facility] [id number] [facility] 2023-11-13 16:00:00 2023-11-13 16:44:43 [facility] 1.2.840.114 350.1.13.10 4.2.7.2.686 [id number] 134 [id number] [facility] 2023-11-13 00:00:00 2023-11-13 00:00:00 Telephone Marcia Ocampo [facility] BUILDING 1.2.840.114 350.1.13.10 4.2.7.2.686 [id number] [facility] 2023-11-06 15:15:00 2023-11-06 15:36:47 Outpatient R MARCIA OCAMPO [facility] [id number] [facility] 2023-11-06 15:15:00 2023-11-06 15:36:47 Office Visit Marcia Ocampo [facility] 1.2.840.114 350.1.13.10 4.2.7.2.686 [id number] 134 [id number] [facility] 2023-11-06 00:00:00 2023-11-06 00:00:00 Orders Only Doctor Unassigned, [facility] 1.2.840.114 350.1.13.10 4.2.7.2.686 [id number] [facility] 2023-11-01 00:00:00 2023-11-01 00:00:00 Telephone DamarisMarcia [facility] 1.2.840.114 350.1.13.10 4.2.7.2.686 [id number] 134 [id number] [facility] 2023-10-25 13:15:00 2023-10-25 13:41:03 Out[address]ARCIA [address] [facility] [id number] [facility] 2023-10-25 13:15:00 2023-10-25 13:41:03 Routine Visit OcampoMarcia [facility] 1.2.840.114 350.1.13.10 4.2.7.2.686 [id number] 134 [id number] [facility] 2023-10-11 15:15:00 2023-10-11 15:15:00 Outpatient R MARCIA OCAMPO [facility] [id number] [facility] 2023-09-25 06:27:00 2023-09-27 10:00:00 Inpatient P MARCIA OCAMPO [facility] ZAK[facility] [id number] [facility] 2023-09-25 06:27:00 2023-09-27 10:00:00 Hospital Encounter Marcia Ocampo [facility] 1.2.840.114 350.1.13.10 4.2.7.2.686 [id number] [facility] 2023-09-25 10:31:00 2023-09-26 02:10:00 Anesthesia Event Sachin Garcia, [facility] 1.2.840.114 350.1.13.10 4.2.7.2.686 [id number] [facility] 2023-09-24 12:15:00 2023-09-24 12:30:00 Patent Prosecution Attorney Visit Pob, Adc Lab Main Marcia Ocampo [facility] 1.2.840.114 350.1.13.10 4.2.7.2.686 [id number] [facility] 2023-09-24 12:15:00 2023-09-24 12:15:00 Outpatient R MARCIA OCAMPO [facility] [id number] [facility] 2023-09-20 14:45:00 2023-09-20 15:06:34 Outpatient R MARCIA OC[address] [facility] [id number] [facility] 2023-09-20 14:45:00 2023-09-20 15:06:34 Routine Visit Marcia Ocampo [facility] 1.2840.114 350.1.13.10 4.2.7.2.686 [id number] [facility] 2023-09-20 00:00:00 2023-09-20 00:00:00 Orders Only Doctor Unassigned, [facility] 1.2840.114 350.1.13.10 4.2.7.2.686 [id number] [facility] 2023-09-16 09:30:00 2023-09-16 09:30:[address] [facility] [id number] [facility] 2023-09-13 11:30:00 2023-09-13 12:27:12 Patent Prosecution Attorney Visit Lab, Ang - Db [facility] MEDICAL OFFICE BUILDING 1.2840.114 350.1.13.10 4.2.7.2.686 [id number] [facility] 2023-09-13 11:30:00 2023-09-13 11:30:00 Outpatient R DAMARIS [facility] [id number] [facility] 2023-09-13 10:30:00 2023-09-13 10:44:17 Routine Visit Marcia Ocampo [facility] 1.20.114 350.1.13.10 4.2.7.2.686 [id number] [facility] 2023-09-13 00:00:00 2023-09-13 00:00:00 Orders Only Doctor Unassigned, B[facility] 1.2840.114 350.1.13.10 4.2.7.2.686 [id number] [facility] 2023-09-12 14:45:00 2023-09-12 14:51:15 Outpatient P LEONA PRIETO [facility] [id number] [facility] 2023-09-12 14:45:00 2023-09-12 14:51:15 Patent Prosecution Attorney Visit Ultrasound, Joslny PrietoLeona Abdi [facility] CHIEF AIRPORT GUIDE [facility] 1.2.840.114 350.1.13.10 4.2.7.2.686 [id number] [facility] 2023-09-06 15:15:00 2023-09-06 15:15:00 Outpatient R MARCIA OCAMPO [facility] [id number] [facility] 2023-09-06 00:00:00 2023-09-06 00:00:[address] [facility] 1.2.840.114 350.1.13.10 4.2.7.2.686 [id number] [facility] 2023-08-23 13:15:00 2023-08-23 13:20:59 Outpatient R MARCIA OC[address]PO [facility] [id number] [facility] 2023-08-23 13:15:00 2023-08-23 13:20:59 Routine Visit Marcia Ocampo [facility] 1.2.840.114 350.1.13.10 4.2.7.2.686 [id number] 134 [id number] [facility] 2023-08-09 12:45:00 2023-08-09 12:48:32 Routine Visit Marcia Ocampo [facility] 1.2.840.114 350.1.13.10 4.2.7.2.686 [id number] 134 [id number] [facility] 2023-08-09 09:30:00 2023-08-09 09:53:[address] [facility] [id number] [facility] 2023-08-09 09:30:00 2023-08-09 09:53:53 Patent Prosecution Attorney Visit Ultrasound, Joslyn PrietoLeona Ikuvdianesatish [facility] CHIEF AIRPORT GUIDE [facility] 1.114 350.1.13.10 4.2.7.2.686 [id number] [facility] 2023-08-08 10:45:00 2023-08-08 11:22:36 Outpatient R DAMARIS [facility] [id number] [facility] 2023-08-08 10:45:00 2023-08-08 11:00:00 Patent Prosecution Attorney Visit Lab, Juan Carlos Ocampo [facility]?RILEY [facility] MEDICAL OFFICE [facility] 1.114 350.1.13.10 4.2.7.2.686 [id number] [facility] 2023-07-22 09:15:00 2023-07-22 09:15:[address] [facility] [id number] [facility] 2023-07-19 11:15:00 2023-07-19 11:25:44 Outpatient R DAM[facility]IS [facility] [id number] [facility] 2023-07-19 11:15:00 2023-07-19 11:25:44 Routine Visit [facility] 1.114 350.1.13.10 4.2.7.2.686 [id number] 134 [id number] [facility] 2023-07-10 00:00:00 2023-07-10 00:00:00 Outpatient GC_GCBZW_Ka joea_S [facility] [id number] [facility] 2023-07-09 00:00:00 2023-07-09 00:00:00 Telephone Damaris [facility] 1.114 350.1.13.10 4.2.7.2.686 [id number] 134 [id number] [facility] 2023-06-17 09:16:42 2023-06-17 09:16:42 Outpatient SFA [id number] John Beckman 2023-06-14 11:30:00 2023-06-14 11:40:45 Outpatient R DAM[address]IS MARCIA [facility] [id number] [facility] 2023-06-14 11:30:00 2023-06-14 11:40:45 Routine Visit [facility] 1..114 350.1.13.10 4.2.7.2.686 [id number] [facility] 2023-05-29 10:45:00 2023-05-29 12:00:00 Patent Prosecution Attorney Visit Ultrasound, Marine Arciniega [facility] CHIEF AIRPORT GUIDE [facility] 1..114 350.1.13.10 4.2.7.2.686 [id number] [facility] 2023-05-29 10:45:00 2023-05-29 10:45:00 Outpatient P MARINE [facility] [id number] [facility] 2023-05-23 00:00:00 2023-05-23 00:00:[address] [facility] 1..114 350.1.13.10 4.2.7.2.686 [id number] [facility] 2023-05-17 11:15:00 2023-05-17 11:27:00 Outpatient R [facility] [id number] [facility] 2023-05-17 11:15:00 2023-05-17 11:27:00 Routine Visit [facility] 1..114 350.1.13.10 4.2.7.2.686 [id number] [facility] 2023-05-07 00:00:00 2023-05-07 00:00:00 Telephone Marcia Ocampo [facility] 1.840.114 350.1.13.10 4.2.7.2.686 [id number] 134 [id number] [facility] 2023-05-06 21:13:00 2023-05-06 22:09:00 Emergency X [facility] ERT [id number] [facility] 2023-05-06 21:13:00 2023-05-06 22:09:00 Emergency Atul Sena [facility] 1.840.114 350.1.13.10 4.2.7.2.686 [id number] [facility] 2023-05-06 07:30:00 2023-05-06 07:36:11 Outpatient [address]IS MARCIA [facility] [id number] [facility] 2023-05-06 07:30:00 2023-05-06 07:36:11 Patent Prosecution Attorney Visit Lab, [facility] MEDICAL OFFICE BUILDING 1..840.114 350.1.13.10 4.2.7.2.686 [id number] [facility] 2023-04-30 07:30:00 2023-04-30 07:30:[address] [facility] [id number] [facility] 2023-04-21 00:00:00 2023-04-21 00:00:00 Nurse Triage Marely Ly [facility] 1.840.114 350.1.13.10 4.2.7.2.686 [id number] [facility] 2023-04-19 11:00:00 2023-04-19 11:06:57 [facility] 1.0.114 350.1.13.10 4.2.7.2.686 [id number] 134 [id number] [facility] 2023-04-19 11:00:00 2023-04-19 11:06:57 Outpatient R OCAMPO [facility] [id number] [facility] 2023-04-01 00:00:00 2023-04-01 00:00:[address] [facility] 1.2.114 350.1.13.10 4.2.7.2.686 [id number] 134 [id number] [facility] 2023-03-29 14:00:00 2023-03-29 14:47:28 Nurse Visit Nurse, [facility] 1.84.114 350.1.13.10 4.2.7.2.686 [id number] 134 [id number] [facility] 2023-03-29 14:00:00 2023-03-29 14:47:28 Outpatient R DAM[facility] [id number] [facility] 2023-03-29 00:00:00 2023-03-29 00:00:00 Telephone Leia Everett [facility] 1.114 350.1.13.10 4.2.7.2.686 [id number] [facility] 2023-03-27 13:00:00 2023-03-27 13:00:00 Patent Prosecution Attorney Visit Lab, Juan Carlos - Juan A Ocampo [facility] MEDICAL OFFICE BUILDING 1.84.114 350.1.13.10 4.2.7.2.686 [id number] [facility] 2023-03-27 13:00:00 2023-03-27 11:28:09 Outpatient R [facility] [id number] [facility] 2023-03-27 11:00:00 2023-03-27 11:00:[address] [facility] [id number] [facility] 2023-03-26 08:00:00 2023-03-26 10:57:52 Outpatient R MARCIA OCAMPO [facility] [id number] [facility] 2023-03-26 08:00:00 2023-03-26 10:57:52 Patent Prosecution Attorney Visit Lab, Ang - Db Marcia Ocampo [facility]?RILEY [facility] MEDICAL OFFICE BUILDING 1.2840.114 350.1.13.10 4.2.7.2.686 [id number] [facility] 2023-03-26 00:00:00 2023-03-26 00:00:00 Case Management Damaris [facility] 1.2840.114 350.1.13.10 4.2.7.2.686 [id number] [facility] 2023-03-26 00:00:00 2023-03-26 00:00:00 Telephone Damaris [facility] 1.2.840.114 350.1.13.10 4.2.7.2.686 [id number] 134 [id number] [facility] 2023-03-25 00:00:00 2023-03-25 00:00:00 Telephone Marcia Ocampo [facility] BUILDING 1.2840.114 350.1.13.10 4.2.7.2.686 [id number] 134 [id number] [facility] 2023-03-25 00:00:00 2023-03-25 00:00:00 Telephone Damaris [facility] 1.2840.114 350.1.13.10 4.2.7.2.686 [id number] 134 [id number] [facility] 2023-03-23 00:00:00 2023-03-23 00:00:00 Case Management Marcia Ocampo [facility] PROFESSIO NAL BUILDING 1.20.114 350.1.13.10 4.2.7.2.686 [id number] [facility] 2023-03-22 10:45:00 2023-03-22 11:00:00 Patent Prosecution Attorney Visit Lab, Juan Carlos - Juan A Marcia Ocampo [facility]LEY [facility] OFF[facility] BUILDING 1..114 350.1.13.10 4.2.7.2.686 [id number] [facility] 2023-03-22 09:00:00 2023-03-22 09:34:31 Outpatient R [facility] [id number] [facility] 2023-03-22 09:00:00 2023-03-22 09:34:31 Initial Visit Marcia Ocampo [facility] 1.0.114 350.1.13.10 4.2.7.2.686 [id number] 134 [id number] [facility] 2023-03-22 00:00:00 2023-03-22 00:00:00 Orders Only Doctor Unassigned, Binger [facility] 1.2840.114 350.1.13.10 4.2.7.2.686 [id number] [facility] 2023-03-06 21:58:00 2023-03-06 23:40:00 Emergency X RAMIREZ SANCHEZ [facility] ERT [id number] [facility] 2023-03-06 21:58:00 2023-03-06 23:40:00 Emergency Ramirez Sanchez [facility] 1.2840.114 350.1.13.10 4.2.7.2.686 [id number] [facility] 2023-03-06 13:00:00 2023-03-06 13:00:[address] [facility] [id number] [facility] 2022-12-20 14:30:00 2022-12-20 15:15:47 Out[address] R [address] [facility] [id number] [facility] 2022-12-20 14:30:00 2022-12-20 15:15:47 Office Visit Edita Dye [facility] CHIEF AIRPORT GUIDE [facility] MATERNAL & CH[facility] 1..840.114 350.1.13.10 4.2.7.2.686 [id number] [facility] 2022-12-20 00:00:00 2022-12-20 00:00:00 Orders Only Doctor Unassigned, Binger [facility] 1.840.114 350.1.13.10 4.2.7.2.686 [id number] [facility] 2022-12-14 09:15:00 2022-12-14 09:15:00 [address] RICE [facility] [id number] [facility] 2022-07-18 13:00:00 2022-07-18 13:45:54 Outpatient R [address]IT RICE [facility] [id number] [facility] 2022-07-18 13:00:00 2022-07-18 13:45:54 Office Visit Surjit Rice [facility] CHIEF AIRPORT GUIDE [facility] 1.840.114 350.1.13.10 4.2.7.2.686 [id number] [facility] 2021-12-14 08:45:00 2021-12-14 10:01:04 Outpatient R GERMAN BACK [facility] [id number] [facility] 2021-12-14 08:45:00 2021-12-14 10:01:04 Office Visit German Back [facility] CHIEF AIRPORT GUIDE [facility] 1.840.114 350.1.13.10 4.2.7.2.686 [id number] [facility] 2021-12-14 08:45:00 2021-12-14 10:01:[address] [facility] [id number] [facility] 2021-12-14 00:00:00 2021-12-14 00:00:00 Orders Only Doctor Unassigned, Binger [facility] 1.840.114 350.1.13.10 4.2.7.2.686 [id number] [facility] 2021-12-12 09:30:00 2021-12-12 09:30:[address] [facility] [id number] [facility] 2021-12-12 09:30:00 2021-12-12 09:30:[address] [facility] [id number] [facility] 2021-12-12 09:30:00 2021-12-12 09:30:[address] [facility] [id number] [facility] 2021-08-08 09:30:00 2021-08-08 09:30:[address] [id number] [facility] 2021-08-07 14:30:00 2021-08-07 15:15:[address] [id number] [facility] 2021-08-07 14:21:07 2021-08-07 15:15:07 Office Visit Skyler Cuellar [facility] CHIEF AIRPORT GUIDE [facility] MATERNAL & CH[facility] 1.840.114 350.1.13.10 4.2.7.2.686 [id number] [facility] 2021-08-07 00:00:00 2021-08-07 00:00:00 Orders Only Doctor Unassigned, Binger [facility] 1.2.840.114 350.1.13.10 4.2.7.2.686 [id number] [facility] 2021-07-20 09:30:00 2021-07-20 09:30:[address] [facility] [id number] [facility] 2021-07-14 00:00:00 2021-07-14 00:00:00 Telephone Surjit Rice [facility] [employer] [facility] 1.2.840.114 350.1.13.10 4.2.7.2.686 [id number] 107 [id number] [facility] 2020-12-08 00:00:00 2020-12-08 00:00:00 Telephone German Back [facility] [employer] [employer] [facility] 1.2.840.114 350.1.13.10 4.2.7.2.686 [id number] 107 [id number] [facility] 2020-12-08 00:00:00 2020-12-08 00:00:00 Telephone German Back [facility] [employer] [employer] [facility] 1.2.840.114 350.1.13.10 4.2.7.2.686 [id number] 107 [id number] 2020-12-07 09:16:24 2020-12-07 10:08:04 Office Visit German Back [facility] [employer] [employer] [facility] 1.2.840.114 350.1.13.10 4.2.7.2.686 [id number] 107 [id number] [facility] 2020-12-07 09:00:00 2020-12-07 09:00:00 Outpatient R GERMAN BACK [facility] [id number] [facility] 2020-12-07 00:00:00 2020-12-07 00:00:00 Orders Only Doctor Unassigned, [facility]inger [facility] 1.2.840.114 350.1.13.10 4.2.7.2.686 [id number] [facility] 2020-05-02 00:00:00 2020-05-02 00:00:00 Telephone [place] Back [facility] [employer] [employer] [facility] 1.2.840.114 350.1.13.10 4.2.7.2.686 [id number] 107 [id number] [facility] 2020-02-12 12:56:01 2020-02-12 13:27:54 [facility] [place] [facility] [employer] [facility] 1.2840.114 350.1.13.10 4.2.7.2.686 [id number] 107 [id number] [facility] 2020-02-12 13:00:00 2020-02-12 13:00:[address] [facility] [id number] [facility] 2020-02-11 00:00:00 2020-02-11 00:00:00 Telephone German Back [facility] [employer] [employer] [facility] 1.2.840.114 350.1.13.10 4.2.7.2.686 [id number] 107 [id number] [facility] 2020-02-11 00:00:00 2020-02-11 00:00:00 Telephone Surjit Rice [facility] [employer] [facility] 1.2.840.114 350.1.13.10 4.2.7.2.686 [id number] 107 [id number] [facility] 2020-02-09 14:00:00 2020-02-09 14:00:00 Outpatient R [facility] [id number] [facility] 2020-02-03 13:00:00 2020-02-03 13:00:[address] [facility] [id number] [facility] 2019-12-31 00:39:27 2019-12-31 01:01:00 Emergency Monica Sanchez [facility] [id number] [facility] 2019-10-19 00:00:00 2019-10-19 00:00:00 Telephone [place] [facility] [employer] [employer] [facility] [id number] [facility] 2019-10-16 12:48:54 2019-10-16 14:02:54 Office Visit [facility] [employer] [facility] [id number] [facility] 2018-02-25 08:45:00 2018-02-25 08:45:00 [facility] Medicine [id number] [facility] Results Test Description Test Time Test Comments Results Result Co mments Source [facility] [id number] 21:06:00* Test Item Value Reference Range Interpretation Comme nts POCT PREG (test code = 1605) Negative On board controls acceptable with C Line (test code = 3574) Yes POCT PREG LOT # (test code = 3575) POCT PREG TEST DATE ( test code = 3576) [facility] IMMUNE [id number] 15:17:58* Test Item Value Reference Range Interpretation Comme nts RHIG CANDIDATE? (test code = 5188) No- see comment Patient is not a candidate for RhIg- Patient is Rh Positive.Performed at [facility] Laboratory Services - [facility] Blood [address] [place] [id number] Free: [phone] No. [id number] [facility] with [id number] 11:15:54* Test Item Value Reference Range Interpretation [...] 34.7 g/dL 31.6-35.1 RDW-SD (test code = 70881-2) 42.5 fL 39.0-49.9 RDW-CV (test code = 788-0) 13.1 % 12.0-15.5 PLT (test code = 777-3) 174 See_Comment [Automated message] The system which generated this result transmitted reference range: 166 - 358 10*3/?L. The reference range was not used to interpret this result as normal/abnormal. MPV (test code = 56436-0) 11.3 fL 9.5-12.9 NRBC/100 WBC (test code = 7742846071) 0.0 See_Comment [Automated message] The system which generated this result transmitted reference range: 0.0 - 10.0 /100 WBCs. The reference range was not used to interpret this result as normal/abnormal. NRBC x10^3 (test code = 3485355005) See_Comment [Automated message] The system which generated this result transmitted reference range: 10*3/?L. The reference range was not used to interpret this result as normal/abnormal. GRAN MAT (NEUT) % (test code = 770-8) 86.4 % IMM GRAN % (test code = 5883832233) 0.60 % LYMPH % (test code = 736-9) 6.9 % MONO % (test code = 5905-5) 5.1 % EOS % (test code = 713-8) 0.8 % BASO % (test code = 706-2) 0.2 % GRAN MAT x10^3(ANC) (test code = 8299328048) 12.14 10*3/uL 1.88-7.09 H IMM GRAN x10^3 (test code = 8663998984) 0.08 10*3/uL 0.00-0.06 H LYMPH x10^3 (test code = 731-0) 0.97 10*3/uL 1.32-3.29 L MONO x10^3 (test code = 742-7) 0.71 10*3/uL 0.33-0.92 EOS x10^3 (test code = 711-2) 0.11 10*3/uL 0.03-0.39 BASO x10^3 (test code = 704-7) 0.03 10*3/uL 0.01-0.07 Lab Interpretation (test code = 28428-2) Abnormal [facility] GLUCOSE (AUTOMATED)2023-09-26 03:26:13* Test Item Value Reference Range Interpretation Comme nts POCT GLU (test code = 7362173709) 86 mg/dL 70-110 Lab Interpretation (test cod e = 91123-5) Normal [facility] GLUCOSE (AUTOMATED)2023-09-26 00:49:14* Test Item Value Reference Range Interpretation Comme nts POCT GLU (test code = 1043998293) 79 mg/dL 70-110 Lab Interpretation (test cod e = 08027-2) Normal [facility] GLUCOSE (AUTOMATED)2023-09-25 19:43:12* Test Item Value Reference Range Interpretation Comme nts POCT GLU (test code = 1177086916) 98 mg/dL 70-110 Lab Interpretation (test cod e = 58922-3) [facility] [id number] 16:25:00 Sachin William MD ? ? 09/25/2023 [...] YANETH sa line ?Guidance with: landmark technique}Epidural/Spinal [place] and/or Catheter: ?Epidural/Spinal Kit: BBraun ?Needle Type: [...] no more heme aspirated. Negative test dose [facility] [id number] 16:25:00 Sachin William MD ? ? 09/25/2023 [...] YANETH sa line ?Guidance with: landmark technique}Epidural/Spinal [place] and/or Catheter: ?Epidural/Spinal Kit: Melun ?Needle Type: [...] no more heme aspirated. Negative test dose [facility]2023-09-25 15:04:40* Test Item Value Reference Range Interpretation Comme nts POCT GLU (test code = 0894738726) 116 mg/dL 70-110 H Lab Interpretation (test cod e = 94038-9) [facility]normal [facility] Screen - ONCE [id number] 15:00:00* Test Item Value Reference Range Interpretation Comme nts ABO & RH (test code = 20) O POSITIVE IAT (test code = 1185) Negative [facility] with [id number] 18:44:22* Test Item Value Reference Range Interpretation [...] 34.6 g/dL 31.6-35.1 RDW-SD (test code = 45047-8) 42.4 fL 39.0-49.9 RDW-CV (test code = 788-0) 12.9 % 12.0-15.5 PLT (test code = 777-3) 197 See_Comment [Automated messa ge] The system which generated this result transmitted reference range: 166 - 358 10*3/?L. The reference range was not used to interpret this result as normal/abnormal. MPV (test code = 86702-6) 11.4 fL 9.5-12.9 NRBC/100 WBC (test code = 1683636306) 0.0 See_Comment [Automated me ssage] The system which generated this result transmitted reference range: 0.0 - 10.0 /100 WBCs. The reference range was not used to interpret this result as normal/abnormal. NRBC x10^3 (test code = 6164337945) See_Comment [Automated messa ge] The system which generated this result transmitted reference range: 10*3/?L. The reference range was not used to interpret this result as normal/abnormal. GRAN MAT (NEUT) % (test code = 770-8) 78.2 % IMM GRAN % (test code = 5327507025) 0.50 % LYMPH % (test code = 736-9) 15.3 % MONO % (test code = 5905-5) 4.4 % EOS % (test code = 713-8) 1.2 % BASO % (test code = 706-2) 0.4 % GRAN MAT x10^3(ANC) (test code = 1277702907) 6.33 10*3/uL 1.88-7.09 IMM GRAN x10^3 (test code = 7586561209) 0.04 10*3/uL 0.00-0.06 LYMPH x10^3 (test code = 731-0) 1.24 10*3/uL 1.32-3.29 L MONO x10^3 (test code = 742-7) 0.36 10*3/uL 0.33-0.92 EOS x10^3 (test code = 711-2) 0.10 10*3/uL 0.03-0.39 BASO x10^3 (test code = 704-7) 0.03 10*3/uL 0.01-0.07 Lab Interpretation (test code = 76120-9) Abnormal [facility] with [id number] 18:44:22* Test Item Value Reference Range Interpretation [...] 34.6 g/dL 31.6-35.1 RDW-SD (test code = 98375-0) 42.4 fL 39.0-49.9 RDW-CV (test code = 788-0) 12.9 % 12.0-15.5 PLT (test code = 777-3) 197 See_Comment [Automated [employer] ge] The system which generated this result transmitted reference range: 166 - 358 10*3/?L. The reference range was not used to interpret this result as normal/abnormal. MPV (test code = 81629-5) 11.4 fL 9.5-12.9 NRBC/100 WBC (test code = 6123331759) 0.0 See_Comment [Automated [employer] ssage] The system which generated this result transmitted reference range: 0.0 - 10.0 /100 WBCs. The reference range was not used to interpret this result as normal/abnormal. NRBC x10^3 (test code = 9183410511) See_Comment [Automated [employer]] The system which generated this result transmitted reference range: 10*3/?L. The reference range was not used to interpret this result as normal/abnormal. GRAN MAT (NEUT) % (test code = 770-8) 78.2 % IMM GRAN % (test code = 8058953066) 0.50 % LYMPH % (test code = 736-9) 15.3 % MONO % (test code = 5905-5) 4.4 % EOS % (test code = 713-8) 1.2 % BASO % (test code = 706-2) 0.4 % GRAN MAT x10^3(ANC) (test code = 0043005405) 6.33 10*3/uL 1.88-7.09 IMM GRAN x10^3 (test code = 4174123312) 0.04 10*3/uL 0.00-0.06 LYMPH x10^3 (test code = 731-0) 1.24 10*3/uL 1.32-3.29 L MONO x10^3 (test code = 742-7) 0.36 10*3/uL 0.33-0.92 EOS x10^3 (test code = 711-2) 0.10 10*3/uL 0.03-0.39 BASO x10^3 (test code = 704-7) 0.03 10*3/uL 0.01-0.07 Lab Interpretation (test code = 03375-0) Abnormal [facility] with [id number] 20:29:26* Test Item Value Reference Range Interpretation [...] 33.9 g/dL 31.6-35.1 RDW-SD (test code = 65528-4) 41.6 fL 39.0-49.9 RDW-CV (test code = 788-0) 12.6 % 12.0-15.5 PLT (test code = 777-3) 181 See_Comment [Automated messa ge] The system which generated this result transmitted reference range: 166 - 358 10*3/?L. The reference range was not used to interpret this result as normal/abnormal. MPV (test code = 33676-2) 11.8 fL 9.5-12.9 NRBC/100 WBC (test code = 5701740057) 0.0 See_Comment [Automated [employer] ssage] The system which generated this result transmitted reference range: 0.0 - 10.0 /100 WBCs. The reference range was not used to interpret this result as normal/abnormal. NRBC x10^3 (test code = 1438743066) See_Comment [Automated messa ge] The system which generated this result transmitted reference range: 10*3/?L. The reference range was not used to interpret this result as normal/abnormal. GRAN MAT (NEUT) % (test code = 770-8) 79.2 % IMM GRAN % (test code = 6239643218) 0.90 % LYMPH % (test code = 736-9) 14.8 % MONO % (test code = 5905-5) 4.2 % EOS % (test code = 713-8) 0.6 % BASO % (test code = 706-2) 0.3 % GRAN MAT x10^3(ANC) (test code = 7490265316) 7.09 10*3/uL 1.88-7.09 IMM GRAN x10^3 (test code = 2165356769) 0.08 10*3/uL 0.00-0.06 H LYMPH x10^3 (test code = 731-0) 1.33 10*3/uL 1.32-3.29 MONO x10^3 (test code = 742-7) 0.38 10*3/uL 0.33-0.92 EOS x10^3 (test code = 711-2) 0.05 10*3/uL 0.03-0.39 BASO x10^3 (test code = 704-7) 0.03 10*3/uL 0.01-0.07 Lab Interpretation (test code = 92249-4) Abnormal [facility] Urinalysis w/o Specific [id number] 16:37:00* Test Item Value Reference Range Interpretation [...] = 3257) N/A Negative - Negati ve [facility] Urinalysis w/o Specific [id number] 19:09:00* Test Item Value Reference Range Interpretation [...] = 3257) N/A Negative - Negati ve [facility] URINALYSIS W/O SPECIFIC [id number] 18:37:00* Test Item Value Reference Range Interpretation [...] = 3257) N/A Negative - Negati ve [facility] URINALYSIS W/O SPECIFIC [id number] 17:15:00* Test Item Value Reference Range Interpretation [...] = 3257) N/A Negative - Negati ve [facility] URINALYSIS W/O SPECIFIC [id number] 16:55:00* Test Item Value Reference Range Interpretation [...] = 3257) Negative Negative - Negati ve [facility] URINALYSIS W/O SPECIFIC [id number] 16:05:00* Test Item Value Reference Range Interpretation [...] = 3257) N/A Negative - Negati ve [facility] URINALYSIS W/O SPECIFIC [id number] 15:36:00* Test Item Value Reference Range Interpretation [...] = 3257) n/a Negative - Negati ve [facility] (A1C)2023-03-27 20:21:55* Test Item Value Reference Range Interpretation Comme nts HGB A1C (test code = 4548-4) 4.8 % 4.0-5.7 ESTEPHANIA (test code = ESTEPHANIA) Reference RangesNormal: <5.7%Prediabetes: 5.7 - 6.4%Diabetes: > 6.5% Lab Interpretation (test code = 85770-7) Normal [facility] URINALYSIS W/O SPECIFIC [id number] 14:01:00* Test Item Value Reference Range Interpretation Comme nts POCT PH U (test code = 3254) n/a 5-8 POCT U LEUK EST (test code = 3263) n/a Negative - Negative POCT U NIT (test code = 3262) n/a Negative - Negati ve POCT U PROT (test code = 3259) Negative Negative - Negat gioavnna POCT U GLU (test code = 3256) Normal Negative - Negati ve POCT U KETONE (test code = 3258) n/a Negative - Neg ative POCT U BLD (test code = 3257) n/a Negative - Negati ve [facility] [id number] 03:07:00* Test Item Value Reference Range Interpretation Comme nts POCT PREG (test code = 1605) Positive On board controls acceptable with C Line (test code = 3574) Yes POCT PREG LOT # (test code = 3577) [id number] POCT PREG TEST DATE ( test code = 3576) 06/14/2024 Lab Interpretation (test cod e = 16886-2) Normal [facility] History and Physical Notes Date/Time Note Provider Source 2023-09-25 09:08:38 TRIAGE HISTORY & PHYSICAL IDENTIFYING DATA Artemio Clinton is 27 year old, /White, 39w0d, female with COREY 10/02/2023, by Last Menstrual Period. : 1995 Primary Care Physician: PATIENT DOES NOT HAVE A PCP CHIEF COMPLAINT Induction at 39 weeks HISTORY OF PRESENT ILLNESS Artemio Clinton is a 27 year old female @ [...] Operations: Past Surgical History: Procedure Laterality Date DC FISSURECTOMY INCL SPHINCTEROTOMY WHEN PERFORMED Past Medical History: Diagnosis Date Anemia of mother in , antepartum 01/24/2018 resolved Anxiety Managed by [facility], managing without medication Chlamydia 2010, 2013 treated Depression managed by [facility], ongoing, managing without medication Family history [...] . Negative screening. ASSESSMENT AND PLAN Artemio Clinton is a 27 year old female @ [...] details Marcia Ocampo MD 09/25/2023 9:59 AM [facility] Procedure Notes Date/Time Note Provider Source 2023-09-25 [...] YANETH saline Guidance with: landmark technique} Epidural/Spinal [place] and/or Catheter: Epidural/Spinal Kit: BBraun Needle Type: [...] no more heme aspirated. Negative test dose [facility] Kredits 2023-09-25 10:01:52 Procedure(s): INSERT CERVICAL DILATOR Pre-Procedure Diagnose(s): 39 weeks gestation of ; GDM, class A1 Post-Procedure Diagnose(s): 39 weeks gestation of ; GDM, class A1 Duenas bulb inserted in a sterile manner and inflated with 60 cc of normal saline without complications. Patient tolerated the procedure well. Marcia Ocampo MD #[id number] 09/25/2023 10:02 AM [facility]
--- NOTE | 2024-10-19 13:54 | EDPHYS ---
Physician Documentation [facility] Name: Mitra Melendez Age: 28 yrs Sex: Female : 1995 Arrival Date: 10/19/2024 Time: 13:35 Bed DX3 Private MD: ED Physician John Benjamin HPI: 10/19 14:05 This 28 yrs old Female presents to ER via Ambulatory with complaints of Sore Throat. sb4 14:05 The patient presents with sore throat. Sore throat and painful swallowing x 2 days. sb4 States that she was sick with flu a last week but has gotten over that. Is not sure if she has had a fever or not. Denies any nausea or vomiting. Historical: - Allergies: 13:52 Bactrim; aa5 13:53 Clindamycin (itching ); aa5 - PMHx: 13:52 Substance Abuse; aa5 - PSHx: 13:52 anal fissure repair; aa5 - Immunization history:: Adult Immunizations unknown. - Infectious Disease History:: Denies. - Social history:: Smoking status: Patient reports the use of cigarette tobacco products. ROS: 14:05 Constitutional: Negative for fever, chills, and weight loss, sb4 14:05 ENT: Positive for sore throat, 14:05 All other systems are negative, Exam: 14:05 Constitutional: This is a well developed, well nourished patient who is awake, alert, sb4 and in no acute distress. Head/Face: Normocephalic, atraumatic. Eyes: Extra-ocular motions intact. Periorbital areas with no swelling, redness, or edema. Respiratory: No increased work of breathing, no retractions or nasal flaring. Skin: Warm, dry with normal turgor. Normal color with no rashes, no lesions, and no evidence of cellulitis. 14:05 ENT: Posterior pharynx: Tonsils: bilaterally enlarged, with erythema, with exudate, no ulcerations, Vital Signs: 13:51 BP 111 / 86; Pulse 105; Resp 18 S; Temp 97.8(TE); Pulse Ox 100% on R/A; Weight 68.04 kg aa5 (R); Height 5 ft. 7 in. (R); 13:51 Body Mass Index 23.49 (68.04 kg, 170.18 cm) aa5 MDM: 13:44 Medical Screening Exam initiated sb4 14:05 Data reviewed: vital signs, nurses notes, and as a result, I will discharge patient. sb4 Test considered but Not performed: Labs: Strep swab not indicated, diagnosis based on physical examination. Counseling: I had a detailed discussion with the patient and/or guardian regarding the historical points, exam findings, and any diagnostic results supporting the discharge/admit diagnosis, the need for outpatient follow up, for definitive care, to return to the emergency department if symptoms worsen or persist or if there are any questions or concerns that arise at home. Administered Medications: 15:00 Drug: Viscous Lidocaine Mucous Membrane Liquid (4 %) 5 ml Mucous Membrane once; swallow iw Route: Mucous Membrane; Disposition: 18:11 Co-signature as Attending Physician, John Benjamin MD I reviewed the patient's care rn provided by the Advanced Practice Provider and agree with the diagnosis and treatment plan. Disposition Summary: 10/19/24 13:54 Discharge Ordered Notes: Location: Home sb4 Problem: new sb4 Symptoms: are unchanged sb4 Condition: Stable sb4 Diagnosis - Streptococcal pharyngitis sb4 Followup: sb4 - With: Emergency Department - When: As needed - Reason: Trouble breathing, Worsening of condition Discharge Instructions: - Discharge Summary Sheet sb4 - Strep Throat, Adult, Eouy-pw-Wfix sb4 Forms: - Antibiotic Education sb4 - Patient Portal Instructions sb4 - Leadership Thank You Letter sb4 Prescriptions: - Amoxicillin 875 mg Oral Tablet - take 1 tablet ORAL route every 12 hours for 10 days; 20 tablet; Refills: 0, sb4 Product Selection Permitted Signatures: Ladonna Gross RN RN iw Nieto, Roman, MD MD rn Calderon, Audri, RN RN kate5 Mago Ng PA-C PALucy sb4
--- NOTE | 2024-10-19 13:54 | ER ---
Nurse's Notes [facility] Name: Mitra Melendez Age: 28 yrs Sex: Female : 1995 Arrival Date: 10/19/2024 Time: 13:35 Bed DX3 Private MD: Diagnosis: Streptococcal pharyngitis Presentation: 10/19 13:51 Chief complaint: Patient states: sore throat and difficulty swallowing that began 2 aa5 days ago, pt states "I though I was getting over the flu because my kids had the flu". Coronavirus screen: sore throat. Ebola Screen: Patient denies travel to an Ebola-affected area in the 21 days before illness onset. Initial Sepsis Screen: Does the patient meet any 2 criteria? HR > 90 bpm. Does the patient have a suspected source of infection? No. Patient's initial sepsis screen is negative. Risk Assessment: Do you want to hurt yourself or someone else? Patient reports no desire to harm self or others. Onset of symptoms was October 2024. 13:51 Acuity: ELBERT 4 aa5 13:51 Method Of Arrival: Ambulatory aa5 Triage Assessment: 14:50 General: Appears in no apparent distress. Behavior is calm, cooperative. iw Historical: - Allergies: 13:52 Bactrim; aa5 13:53 Clindamycin (itching ); aa5 - PMHx: 13:52 Substance Abuse; aa5 - PSHx: 13:52 anal fissure repair; aa5 - Immunization history:: Adult Immunizations unknown. - Infectious Disease History:: Denies. - Social history:: Smoking status: Patient reports the use of cigarette tobacco products. Screenin:30 [facility] ED Fall Risk Assessment (Adult) History of falling in the last 3 months, iw including since admission No falls in past 3 months (0 pts) Confusion or Disorientation No (0 pts) Intoxicated or Sedated No (0 pts) Impaired Gait No (0 pts) Mobility Assist Device Used No (0 pt) Altered Elimination No (0 pt) Score/Fall Risk Level 0 - 2 = Low Risk Oriented to surroundings, Maintained a safe environment. Abuse screen: Denies threats or abuse. Denies injuries from another. Nutritional screening: No deficits noted. Tuberculosis screening: No symptoms or risk factors identified. Assessment: 14:30 General: Appears in no apparent distress. Behavior is calm, cooperative. Pain: iw Complains of pain in throat. Neuro: Level of Consciousness is alert, obeys commands, Oriented to person, place, time, situation, Moves all extremities. Cardiovascular: Patient's skin is warm and dry. Respiratory: Airway is patent Respiratory effort is even, unlabored, GI: Abdomen is non-distended. EENT: Throat is reddened. Derm: Skin is intact, is healthy with good turgor, Skin is pink, warm \\T\\ dry. normal. Musculoskeletal: Range of motion: intact in all extremities. Vital Signs: 13:51 BP 111 / 86; Pulse 105; Resp 18 S; Temp 97.8(TE); Pulse Ox 100% on R/A; Weight 68.04 kg aa5 (R); Height 5 ft. 7 in. (R); 13:51 Body Mass Index 23.49 (68.04 kg, 170.18 cm) aa5 ED Course: 13:39 Patient arrived in ED. al6 13:40 Mago Ng [facility]C [facility]. sb4 13:40 John Benjamin MD is Attending Physician. sb4 13:51 Arm band placed on. aa5 13:52 Triage completed. aa5 14:32 Patient has correct armband on for positive identification. iw 14:49 Ladonna Gross, RN is Primary Nurse. iw 14:53 IV discontinued, intact, bleeding controlled, No redness/swelling at site. Pressure iw dressing applied. Administered Medications: 15:00 Drug: Viscous Lidocaine Mucous Membrane Liquid (4 %) 5 ml Mucous Membrane once; swallow iw Route: Mucous Membrane; Medication: 14:55 VIS not applicable for this client. iw Outcome: 13:54 Discharge ordered by . sb4 14:54 Discharged to home ambulatory, iw 14:54 Condition: good 14:54 Discharge instructions given to patient, Instructed on discharge instructions, follow up and referral plans. medication usage, Demonstrated understanding of instructions, follow-up care, medications, Prescriptions given X 1, 14:55 Patient left the ED. iw Signatures: Ladonna Gross, RN RN iw Dennise Whitfield RN RN aa5 Mago Ng PA-C PA-C sb4 Laura Fuchs al6 Corrections: (The following items were deleted from the chart) 13:53 13:51 BP 111 / 86; Pulse 105bpm; Resp 18bpm; Spontaneous; Pulse Ox 100% RA; Temp 97.8F aa5 Temporal; aa5 10/20 07:37 07:37 VIS not applicable for this client. iw iw 07:38 10/19 15:16 VIS not applicable for this client. iw iw
[2024-10-19] MEDS ORDERED: LIDOCAINE VISCOUS 2% 10ML ORAL SOLN ONE (14:49)
[2024-10-19 15:57] VITALS: BP 111/86; TEMP 97.8; O2SAT 100
== END 2024-10-19 14:55 | disposition home or self-care (01) ==
LOC: ER 13:35
DX: J02.0 Streptococcal pharyngitis (principal)
CPT/HCPCS: 99283

== ENCOUNTER 2024-11-23 21:00 | Emergency (ER) | payer OTHER, SELFPAY ==
--- OUTSIDE RECORDS SUMMARY | 2024-11-23 21:10 | XMS REPORT | Continuity of Care Document ---
Author Name Unknown Address [address] [place] [address] Organization [facility] [place] Address [address] [place] [address] Care Team Providers Care Alternative Financing Specialist Name Role Phone PCP, PATIENT DOES NOT HAVE A Primary Care Physic katlin Unavailable MARCIA OCAMPO Attending Clinician Unavailable CARITO PICHARDO Attending Clinician Unavailable Marcia Ocampo MD Attending Clinician [phone] Doctor Unassigned, [place] Attending Clinician U navailable Sachin William MD Attending Clinicia n Darius GAITAN, Loreta Attending Clinician [phone] Po, [facility] Lab Main Attending Clinician Unavailabl e Lab, Ang - Db Attending Clinician Unavailable LEONA PRIETO Attending Clinician Unav ailable Ultrasound, Ang-Mfm Attending Clinician UnavailLeona Escalera MD Attending Clinician + [email or web address] Attending Clinician UnavailMarine Jo MD Attending Clinician [phone] MARINE WORTHINGTON Attending Clinician Unavailable MARINE WORTHINGTON Attending Clinician Unavailable ATUL LEAL Attending Clinician Unavailable Atul Leal DO Attending Clinician [phone] Gretel GAITAN, Martell Attending Clinician [phone] Marely Ly RN Attending Clinician Unavailabl e Nurse, [facility] Attending Clinician Un available Leia Everett RN Attending Clinician UnavailRAMIREZ Back Attending Clinician Unavailable Ramirez Sanchez MD Attending Clinician [phone] EDITA OATES Attending Clinician Unavaila Edita Junior CNM Attending Clinician [phone] GERMAN BACK Attending Clinician Unavailab SURJIT Catalan Attending Clinician Unavail able Krystal WHCNPSurjit Attending Clinician + German Gil Attending Clinician + [phone] SKYLER CUELLAR Attending Clinician Unavailtamia Cuellar METAL BASE BLOCKER, Skyler Douglas Attending Clinician [phone] LORENZO CHEATHAM Attending Clinician Unavail able Visit, [facility] Nurse Attending Clinician Monica Bella MD Attending Clinician [phone] MARCIA OCAMPO Admitting Clinician Unavailable [email or web address] Admitting Clinician Unavaila guillermo Payers Payer Name Policy Type Policy Number Effective Date Expirati on Date Source [place] [employer] [id number] 2023 00:00:00 Problems Condition Name Condition Details Condition Category Status Onset Date Resolution Date Last Treatment Date Treating Clinician Comments Source 39 weeks gestation of 39 weeks gestation of Disease Active 09-25 00:00: 00 [facility] Liveborn infant, of [place] , born in hospital by vaginal delivery Liveborn , of [place] , born in hospital by vaginal delivery Disease Active 09-25 00:00: 00 [facility] 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 test for herpes simplex virus (HSV) antibody Disease Active 05-17 00:00: 00 [facility] GDM (gestation al diabetes mellitus), class A1 GDM (gestation al diabetes mellitus), class A1 Disease Active 04-19 00:00: 00 [facility] High-risk in third trimester High-risk in third trimester Disease Active 04-19 00:00: 00 [facility] Family history of congenital heart disease Family history of congenital heart disease Disease Active 8-11 00:00: 00 [facility] History of gestationa l diabetes mellitus (GDM) History of gestationa l diabetes mellitus (GDM) Disease Active 8-11 00:00: 00 [facility] Normal in first trimester Normal in first trimester Disease Active 7-14 00:00: 00 [facility] Nausea and vomiting during prior to 22 weeks gestation Nausea and vomiting during prior to 22 weeks gestation Disease Active 7-14 00:00: 00 [facility] History of anxiety and depression History of anxiety and depression Disease Active 4-13 00:00: 00 [facility] BMI 25.0-25.9, adult BMI 25.0-25.9, adult Disease Active 4-07 00:00: 00 [facility] BMI 25.0-25.9, adult BMI 25.0-25.9, adult Disease Active 407 00:00: 00 [facility] Nexplanon in place Nexplanon in place Disease Active 3- 00:00: 00 [facility] Flu vaccine need Flu vaccine need Disease Active 3-31 00:00: 00 [facility] Internal thrombosed hemorrhoid s Internal thrombosed hemorrhoid s Disease Active 0 6- 00:00: 00 [facility] Chlamydia trachomati s infection of lower genitourin victorina sites Chlamydia trachomati s infection of lower genitourin victorina sites Disease Active 2018-09 2 00:00: 00 [facility] Encounter for surveillan ce of implantabl e subdermal contracept giovanna Encounter for surveillan ce of implantabl e subdermal contracept giovanna Disease Active 2017-09 00:00: 00 [facility] Tobacco use disorder Tobacco use disorder Disease Active 2017-09 00:00: 00 [facility] 23 weeks gestation of 23 weeks gestation of Diagnosis Active [facility] Paronychia of finger of left hand Paronychia of finger of left hand Diagnosis Active [facility] Allergies, Adverse Reactions, Alerts Allergy Name Allergy Type Status Severity Reaction(s) Onset Date Inactive Date Treating Clinician Comments Source NO KNOWN ALLERGIE S Drug Class Active [facility] Social History Social Habit Start Date Stop Date Quantity Comments Source ASSERTION 2023-01-09 00:00:00 [facility] History of tobacco use 2007-10-04 00:00:[address] [facility] History SDOH Alcohol Frequency [facility] History SDOH Alcohol Std Drinks [facility] History SDOH Alcohol Binge [facility] Gender identity [facility] Alcohol intake 2023-12-04 00:00:00 2023-12-04 00:00:00 Ex-drinker (finding) [facility] History of Social function 2023-11-06 00:00:00 2023-11-06 00:00:00 [facility] Alcohol Comment 2023-03-22 00:00:00 2023-03-22 00:00:00 qquit when fund out was [facility] Cigarettes smoked current (pack per day) - Reported 2023-03-22 00:00:00 2023-03-22 00:00:00 [facility] Cigarette pack-years 2023-03-22 00:00:00 2023-03-22 00:00:00 [facility] Tobacco use and exposure 2023-03-22 00:00:00 2023-03-22 00:00:[address]okeless tobacco non-user [facility] Exposure to SARS-CoV-2 (event) 2022-12-10 00:00:00 2022-12-20 14:24:[address] [facility] Sex Assigned At 1995 00:00:00 1995 00:00:00 [facility] Smoking Status Start Date Stop Date Source Smokes tobacco daily 2023-03-22 00:00:00 [facility] Medications Ordered Medication Name Filled Medication Name Start Date Stop Date Current Medication? Ordering Clinician Indication Dosage Frequency Signature (SIG) Comments Components Source sulfamethox azole-trime thoprim (BACTRIM DS) 800-160 mg per tablet 12-03 00:00: 00 12-07 04:59 :00 No [id number] 1{tbl} Take 1 tablet by mouth in the morning and 1 tablet in the evening. Do all this for 3 days. [facility] sulfamethox azole-trime thoprim (BACTRIM DS) 800-160 mg per tablet 11-18 00:00: 00 11-24 04:59 :00 No [id number] 1{tbl} Take 1 tablet by mouth in the morning and 1 tablet in the evening. Do all this for 5 days. [facility] cephALEXin 500 mg capsule 11-12 00:00: 00 11-18 00:00 :00 No [id number] 500mg Take 1 capsule by mouth 4 (four) times daily for 10 days. [facility] etonogestre L (NEXPLANON) implant 68 mg 00:15: 00 11-06 23:46 :00 No [id number] 68mg [facility] metoclopram nabila HCl (REGLAN) tablet 10 mg 09-26 20:15: 00 09-26 19:35 :00 No 10mg 10 mg, Oral, ONCE, 1 dose, On Sat09/26/23 at 1415, Routine [facility] PNV no.95/giancarlo us fum/folic ac ( ORAL) 09-26 07:35: 16 09-26 00:00 :00 No Take by mouth. [facility] rho(D) immune globulin (RHOGAM) syringe 300 mcg 09-26 06:03: 58 Yes 300ug 300 mcg, Intramuscu lar, ONCE, For 1 dose, Conditiona l, Routine [facility] witch Kamryn (TUCKS) 50 % topical pad 09-26 06:03: 53 Yes Topical, Q4HPRN, Starting on Sat09/26/23 at 0003, Until Discontinu ed, Routine, rectal/hem orrhoidal pain [facility] HYDROcodone -acetaminop hen (NORCO 5) 5-325 mg tablet 1 tablet 09-26 06:03: 53 Yes 1{tbl} 1 tablet, Oral, Q6HPRN, Starting on Sat09/26/23 at 0003, Until Discontinu ed, Routine, Pain (scale 7-10) [facility] ibuprofen (IBU) tablet 600 mg 09-26 06:03: 53 Yes 600mg 600 mg, Oral, Q6HPRN, Starting on Sat09/26/23 at 0003, Until Discontinu ed, Routine, Pain (scale 4-6) [facility] acetaminoph en (TYLENOL) tablet 650 mg 09-26 06:03: 53 Yes 650mg 650 mg, Oral, Q6HPRN, Starting on Sat09/26/23 at 0003, Until Discontinu ed, Routine, Pain (scale 1-3) [facility] diphenhydrA MINE (BENADRYL) tablet 25 mg 09-26 06:03: 53 Yes 25mg 25 mg, Oral, Q6HPRN, Starting on Sat09/26/23 at 0003, Until Discontinu ed, Routine, Sleep, Itching [facility] ondansetron (ZOFRAN (PF)) injection 4 mg 09-26 06:03: 53 Yes 4mg 4 mg, Slow IV Push, Q8HPRN, Starting on Sat09/26/23 at 2, Until Discontinu ed, Routine, Nausea and Vomiting (N/V) [facility] simethicone (GAS RELIEF (SIMETHICON E)) chewable tablet 160 mg 09-26 06:03: 53 Yes 160mg 160 mg, Oral, PC+HSPRN, Starting on Sat09/26/23 at 0003, Until Discontinu ed, Routine, Gas [facility] docusate (COLACE) capsule 200 mg 09-26 06:03: 53 Yes 200mg 200 mg, Oral, QDAILYPRN, Starting on Sat09/26/23 at 0003, Until Discontinu ed, Routine, Constipati on [facility] magnesium hydroxide (MILK OF MAGNESIA) 400 mg/5 mL suspension 30 mL 09-26 06:03: 53 Yes 30mL 30 mL, Oral, QDAILYPRN, Starting on Sat09/26/23 at 0003, Until Discontinu ed, Routine, Constipati on [facility] benzocaine- menthol (DERMOPLAST ) 20-0.5 % topical spray 09-26 06:03: 53 Yes Topical, PRN, Starting on Sat09/26/23 at 0003, Until Discontinu ed, Routine, Perineum discomfort [facility] vitamin w/FA tablet 09-26 00:00: 00 11-06 00:00 :00 No [id number] 1{tbl} Take 1 tablet by mouth in the morning. [facility] docusate 100 mg capsule 09-26 00:00: 00 11-06 00:00 :00 No [id number] 200mg Take 2 capsules by mouth once daily as needed for Constipati on. [facility] ferrous sulfate 325 mg (65 mg iron) tablet 09-26 00:00: 00 11-06 00:00 :00 No [id number] 325mg Take 1 tablet by mouth in the morning and 1 tablet in the evening. [facility] ibuprofen 600 mg tablet 09-26 00:00: 00 11-06 00:00 :00 No [id number] 600mg Take 1 tablet by mouth every 6 (six) hours as needed (Pain). Take with food or milk. [facility] PNV no.95/giancarlo us fum/folic ac ( ORAL) 09-25 23:18: 46 Yes Take by mouth. [facility] fentaNYL-ro pivacaine 2 mcg/mL-0.1 % (PF) in NS 200 mL epidural infusion RTU 09-25 16:57: 00 Yes Epidural, CONTINUOUS PRN, Starting on Sat09/25/23 at 1057, Until Discontinu ed, Routine, Intra-op [facility] lidocaine-e pinephrine (XYLOCAINE W/EPINEPHRI NE) 1.5 %-1:200,000 injection 09-25 16:49: 00 Yes Intraderma l, ONCE INTRA PROCEDURE, Starting on Sat09/25/23 at 1049, Until Discontinu ed, Routine, Intra-op [facility] acyclovir (ZOVIRAX) tablet 400 mg 09-25 14:00: 00 09-26 06:03 :57 No 400mg 400 mg, Oral, TID, First dose on Sat09/25/23 at 0800, Until Discontinu ed, BALTA [facility] lactated ringers IV infusion 500 mL 09-25 12:32: 53 09-26 06:03 :56 No 500mL at 999 mL/hr, 500 mL, IV Infusion, PRN - SEE INSTRUCTIO NS, Starting on Sat09/25/23 at 0632, Until Kate 09/26/23 at 0003, Routine [facility] FENTanyl PF (SUBLIMAZE (PF)) injection 100 mcg 09-25 12:32: 53 09-26 06:03 :57 No 100ug 100 mcg, Slow IV Push, Q1HPRN, Starting on Sat09/25/23 at 0632, Until Kate 09/26/23 at 0003, Routine, contractio n pain without an epidural and SVE < 8 cm and Cat I strip [facility] oxytocin (PITOCIN) 30 units in NS 500 mL IV infusion 09-25 12:32: 53 09-26 06:03 :57 No 2mU/min at 2-40 mL/hr, IV Infusion, TITRATE, Starting on Sat09/25/23 at 0632, Until Kate 09/26/23 at 0003, BALTA [facility] D5W-LR IV infusion 1,000 mL 09-25 12:32: 53 09-26 06:03 :56 No 1000mL at 1-125 mL/hr, IV Infusion, TITRATE, Starting on Sat09/25/23 at 0632, Until Kate 09/26/23 at 0003, Routine [facility] PNV no.95/giancarlo us fum/folic ac ( ORAL) 1-12 14:40: 57 Yes Take by mouth. [facility] nirmatrelvi r-ritonavir (PAXLOVID) 300 mg (150 mg x 2)-100 mg tablet 2022-09 2-29 00:00: 00 Yes 3{tbl} Take 3 tablets by mouth in the morning and 3 tablets in the evening. [facility] PNV no.95/giancarlo us fum/folic ac ( ORAL) 2022-09 2-15 13:12: 22 Yes Take by mouth. [facility] acyclovir 400 mg tablet 2022-09 2- 00:00: 00 09-26 00:00 :00 No [id number] 400mg Take 1 tablet by mouth in the morning and 1 tablet at noon and 1 tablet in the evening. [facility] blood sugar diagnostic (BLOOD GLUCOSE TEST) strip 2022-09 0-31 00:00: 00 09-26 00:00 :00 No Check gluocose 4 times a day [facility] sulfamethox azole-trime thoprim (BACTRIM DS) 800-160 mg per tablet 908 00:00: 00 05-28 04:59 :00 No [id number] 1{tbl} Take 1 tablet by mouth in the morning and 1 tablet in the evening. Do all this for 10 days. [facility] cephALEXin (KEFLEX) 500 mg capsule 05-06 00:00: 00 05-14 04:59 :00 No [id number] 500mg Take 1 capsule by mouth in the morning and 1 capsule at noon and 1 capsule in the evening. Do all this for 7 days. [facility] Blood-Gluco se Meter Kit 03-27 00:00: 00 09-26 00:00 :00 No Check glucose 4 times a day. [facility] Lancets Misc 03-27 00:00: 00 09-26 00:00 :00 No Check glucose 4 times a day [facility] Alcohol Swabs (ALCOHOL PADS) PadM 03-27 00:00: 00 09-26 00:00 :00 No Apply to area(s) 4 (four) times daily. [facility] blood sugar diagnostic (BLOOD GLUCOSE TEST) strip 03-27 00:00: 00 07-09 00:00 :00 No Check gluocose 4 times a day [facility] PNV no.95/giancarlo us fum/folic ac ( ORAL) 03-22 09:00: 18 Yes Take by mouth. [facility] pyridoxine, VITAMIN B-6, (VITAMIN B-6) 25 mg tablet 03-22 00:00: 00 09-26 00:00 :00 No [id number] 25mg Take 1 tablet by mouth every 6 (six) hours as needed for Nausea and Vomiting (N/V). [facility] doxylamine (UNISOM, DOXYLAMINE, ) 25 mg tablet 03-22 00:00: 00 09-26 00:00 :00 No [id number] 25mg Take 1 tablet by mouth at bedtime as needed for Nausea and Vomiting (N/V). [facility] metoclopram nabila HCl 10 mg tablet 03-22 00:00: 00 09-26 00:00 :00 No [id number] 10mg Take 1 tablet by mouth every 6 (six) hours as needed for Nausea and Vomiting (N/V). [facility] ondansetron (ZOFRAN-ODT ) disintegrat ing tablet 4 mg 03-07 05:00: 00 03-07 03:55 :00 No 4mg 4 mg, Oral, ONCE, 1 dose, On Kate 03/07/23 at 0000, BALTA [facility] doxylamine- pyridoxine, vit B6, (DICLEGIS) 10-10 mg per tablet 03-06 00:00: 00 03-22 00:00 :00 No [id number] 1{tbl} Take 1 tablet by mouth 4 (four) times daily as needed for Nausea and Vomiting (N/V). [facility] No known medications 2021-09 13:50: 57 No No known medication s [facility] No known medications 12-14 09:03: 50 No [facility] Yes Florencio Mitchell 1 tablet [facility] Immunizations Ordered Immunization Name Filled Immunization Name Date Status Comments Source Influenza Virus Vaccine Quad .5 mL IM 6+ MO 2021-12-14 00:00:[address] [facility] Influenza Virus Vaccine Quad .5 mL IM 6+ MO 2021-12-14 00:00:[address] [facility] Influenza Virus Vaccine Quad .5 mL IM 6+ MO 2021-12-14 00:00:[address] [facility] Influenza Virus Vaccine Quad .5 mL IM 6+ MO 2021-12-14 00:00:[address] [facility] Influenza Virus Vaccine Quad .5 mL IM 6+ MO 2021-12-14 00:00:[address] [facility] Influenza Virus Vaccine Quad .5 mL IM 6+ MO 2021-12-14 00:00:[address] [facility] Influenza Virus Vaccine Quad .5 mL IM 6+ MO 2021-12-14 00:00:[address] [facility] Influenza Virus Vaccine Quad .5 mL IM 6+ MO 2021-12-14 00:00:[address] [facility] Influenza Virus Vaccine Quad .5 mL IM 6+ MO 2021-12-14 00:00:[address] [facility] Influenza Virus Vaccine Quad .5 mL IM 6+ MO (FLUZONE/FLULAVAL/FL UARIX) 2021-12-14 00:00:[address] [facility] Influenza Virus Vaccine Quad .5 mL IM 6+ MO (FLUZONE/FLULAVAL/FL UARIX) 2021-12-14 00:00:[address] [facility] Influenza Virus Vaccine Quad .5 mL IM 6+ MO 2021-12-14 00:00:[address] [facility] Influenza Virus Vaccine Quad .5 mL IM 6+ MO 2021-12-14 00:00:[address] [facility] Influenza Virus Vaccine Quad .5 mL IM 6+ MO 2021-12-14 00:00:[address] [facility] Influenza Virus Vaccine Quad .5 mL IM 6+ MO 2021-12-14 00:00:[address] [facility] Influenza Virus Vaccine Quad .5 mL IM 6+ MO 2021-12-14 00:00:[address] [facility] Influenza Virus Vaccine Quad .5 mL IM 6+ MO 2021-12-14 00:00:[address] [facility] Influenza Virus Vaccine Quad .5 mL IM 6+ MO 2021-12-14 00:00:[address] [facility] Influenza Virus Vaccine Quad .5 mL IM 6+ MO 2021-12-14 00:00:[address] [facility] Influenza Virus Vaccine Quad .5 mL IM 6+ MO 2021-12-14 00:00:[address] [facility] Influenza Virus Vaccine Quad .5 mL IM 6+ MO 2021-12-14 00:00:[address] [facility] Influenza Virus Vaccine Quad .5 mL IM 6+ MO 2021-12-14 00:00:[address] [facility] Influenza Virus Vaccine Quad .5 mL IM 6+ MO 2021-12-14 00:00:[address] [facility] Influenza Virus Vaccine Quad .5 mL IM 6+ MO 2021-12-14 00:00:[address] [facility] Influenza Virus Vaccine Quad .5 mL IM 6+ MO 2021-12-14 00:00:[address] [facility] HPV9 2020-12-07 00:00:[address] [facility] HPV9 2020-12-07 00:00:[address] [facility] HPV9 2020-12-07 00:00:[address] [facility] HPV9 2020-12-07 00:00:[address] [facility] HPV9 2020-12-07 00:00:[address] [facility] HPV9 2020-12-07 00:00:[address] [facility] HPV9 2020-12-07 00:00:[address] [facility] HPV9 2020-12-07 00:00:[address] [facility] HPV9 2020-12-07 00:00:[address] [facility] HPV9 2020-12-07 00:00:[address] [facility] HPV9 2020-12-07 00:00:[address] [facility] HPV9 2020-12-07 00:00:[address] [facility] HPV9 2020-12-07 00:00:[address] [facility] HPV9 2020-12-07 00:00:[address] [facility] HPV9 2020-12-07 00:00:[address] [facility] HPV9 2020-12-07 00:00:[address] [facility] HPV9 2020-12-07 00:00:[address] [facility] HPV9 2020-12-07 00:00:[address] [facility] HPV9 2020-12-07 00:00:[address] [facility] HPV9 2020-12-07 00:00:[address] [facility] HPV9 2020-12-07 00:00:[address] [facility] HPV9 2020-12-07 00:00:[address] [facility] HPV9 2020-12-07 00:00:[address] [facility] HPV9 2020-12-07 00:00:[address] [facility] HPV9 2020-12-07 00:00:[address] [facility] HPV9 2019-09-17 00:00:[address] [facility] HPV9 2019-09-17 00:00:[address] [facility] HPV9 2019-09-17 00:00:[address] [facility] HPV9 2019-09-17 00:00:[address] [facility] HPV9 2019-09-17 00:00:[address] [facility] HPV9 2019-09-17 00:00:[address] [facility] HPV9 2019-09-17 00:00:[address] [facility] HPV9 2019-09-17 00:00:[address] [facility] HPV9 2019-09-17 00:00:[address] [facility] HPV9 2019-09-17 00:00:[address] [facility] HPV9 2019-09-17 00:00:[address] [facility] HPV9 2019-09-17 00:00:[address] [facility] HPV9 2019-09-17 00:00:[address] [facility] HPV9 2019-09-17 00:00:[address] [facility] HPV9 2019-09-17 00:00:[address] [facility] HPV9 2019-09-17 00:00:[address] [facility] HPV9 2019-09-17 00:00:[address] [facility] HPV9 2019-09-17 00:00:[address] [facility] HPV9 2019-09-17 00:00:[address] [facility] HPV9 2019-09-17 00:00:[address] [facility] HPV9 2019-09-17 00:00:[address] [facility] HPV9 2019-09-17 00:00:[address] [facility] HPV9 2019-09-17 00:00:[address] [facility] HPV9 2019-09-17 00:00:[address] [facility] HPV9 2019-09-17 00:00:[address] [facility] HPV9 2019-08-05 00:00:[address] [facility] [facility] Influ[facility] Virus Vaccine Quad .5 mL IM 6+ MO 2019-08-05 00:00:[address] [facility] HPV9 2019-08-05 00:00:[address] [facility] Influenza Virus Vaccine Quad .5 mL IM 6+ MO 2019-08-05 00:00:[address] [facility] HPV9 2019-08-05 00:00:[address] [facility] Influenza Virus Vaccine Quad .5 mL IM 6+ MO 2019-08-05 00:00:[address] [facility] HPV9 2019-08-05 00:00:[address] [facility] Influenza Virus Vaccine Quad .5 mL IM 6+ MO 2019-08-05 00:00:[address] [facility] HPV9 2019-08-05 00:00:[address] [facility] Influenza Virus Vaccine Quad .5 mL IM 6+ MO 2019-08-05 00:00:[address] [facility] HPV9 2019-08-05 00:00:[address] [facility] Influenza Virus Vaccine Quad .5 mL IM 6+ MO 2019-08-05 00:00:[address] [facility] HPV9 2019-08-05 00:00:[address] [facility] Influenza Virus Vaccine Quad .5 mL IM 6+ MO 2019-08-05 00:00:[address] [facility] HPV9 2019-08-05 00:00:[address] [facility] Influenza Virus Vaccine Quad .5 mL IM 6+ MO 2019-08-05 00:00:[address] [facility] HPV9 2019-08-05 00:00:[address] [facility] Influenza Virus Vaccine Quad .5 mL IM 6+ MO 2019-08-05 00:00:[address] [facility] HPV9 2019-08-05 00:00:[address] [facility] Influenza Virus Vaccine Quad .5 mL IM 6+ MO (FLUZONE/FLULAVAL/FL UARIX) 2019-08-05 00:00:[address] [facility] HPV9 2019-08-05 00:00:[address] [facility] Influenza Virus Vaccine Quad .5 mL IM 6+ MO (FLUZONE/FLULAVAL/FL UARIX) 2019-08-05 00:00:[address] [facility] HPV9 2019-08-05 00:00:[address] [facility] Influenza Virus Vaccine Quad .5 mL IM 6+ MO 2019-08-05 00:00:[address] [facility] HPV9 2019-08-05 00:00:[address] [facility] Influenza Virus Vaccine Quad .5 mL IM 6+ MO 2019-08-05 00:00:[address] [facility] HPV9 2019-08-05 00:00:[address] [facility] Influenza Virus Vaccine Quad .5 mL IM 6+ MO 2019-08-05 00:00:[address] [facility] HPV9 2019-08-05 00:00:[address] [facility] Influenza Virus Vaccine Quad .5 mL IM 6+ MO 2019-08-05 00:00:[address] [facility] HPV9 2019-08-05 00:00:[address] [facility] Influenza Virus Vaccine Quad .5 mL IM 6+ MO 2019-08-05 00:00:[address] [facility] HPV9 2019-08-05 00:00:[address] [facility] Influenza Virus Vaccine Quad .5 mL IM 6+ MO 2019-08-05 00:00:[address] [facility] HPV9 2019-08-05 00:00:[address] [facility] Influenza Virus Vaccine Quad .5 mL IM 6+ MO 2019-08-05 00:00:[address] [facility] HPV9 2019-08-05 00:00:[address] [facility] Influenza Virus Vaccine Quad .5 mL IM 6+ MO 2019-08-05 00:00:[address] [facility] HPV9 2019-08-05 00:00:[address] [facility] Influenza Virus Vaccine Quad .5 mL IM 6+ MO 2019-08-05 00:00:[address] [facility] HPV9 2019-08-05 00:00:[address] [facility] Influenza Virus Vaccine Quad .5 mL IM 6+ MO 2019-08-05 00:00:[address] [facility] HPV9 2019-08-05 00:00:[address] [facility] Influenza Virus Vaccine Quad .5 mL IM 6+ MO 2019-08-05 00:00:[address] [facility] HPV9 2019-08-05 00:00:[address] [facility] Influenza Virus Vaccine Quad .5 mL IM 6+ MO 2019-08-05 00:00:[address] [facility] HPV9 2019-08-05 00:00:[address] [facility] Influenza Virus Vaccine Quad .5 mL IM 6+ MO 2019-08-05 00:00:[address] [facility] HPV9 2019-08-05 00:00:[address] [facility] Influenza Virus Vaccine Quad .5 mL IM 6+ MO 2019-08-05 00:00:[address] [facility] TDAP 2018-05-08 00:00:[address] [facility] TDAP 2018-05-08 00:00:[address] [facility] TDAP 2018-05-08 00:00:[address] [facility] TDAP 2018-05-08 00:00:[address] [facility] TDAP 2018-05-08 00:00:[address] [facility] TDAP 2018-05-08 00:00:[address] [facility] TDAP 2018-05-08 00:00:[address] [facility] TDAP 2018-05-08 00:00:[address] [facility] TDAP 2018-05-08 00:00:[address] [facility] TDAP 2018-05-08 00:00:[address] [facility] TDAP 2018-05-08 00:00:[address] [facility] TDAP 2018-05-08 00:00:[address] [facility] TDAP 2018-05-08 00:00:[address] [facility] TDAP 2018-05-08 00:00:[address] [facility] TDAP 2018-05-08 00:00:[address] [facility] TDAP 2018-05-08 00:00:[address] [facility] TDAP 2018-05-08 00:00:[address] [facility] TDAP 2018-05-08 00:00:[address] [facility] TDAP 2018-05-08 00:00:[address] [facility] TDAP 2018-05-08 00:00:[address] [facility] TDAP 2018-05-08 00:00:[address] [facility] TDAP 2018-05-08 00:00:[address] [facility] TDAP 2018-05-08 00:00:[address] [facility] TDAP 2018-05-08 00:00:[address] [facility] TDAP 2018-05-08 00:00:[address] [facility] TDAP 2008-11-26 00:00:[address] [facility] Varicella (varivax)(chicken pox) 2008-11-26 00:00:[address] [facility] Meningococcal Polysaccharide (groups A, C, Y and W-135) conjugate vaccine (MCV4P) 2008-11-26 00:00:[address] [facility] TDAP 2008-11-26 00:00:[address] [facility] Varicella (varivax)(chicken pox) 2008-11-26 00:00:[address] [facility] Meningococcal Polysaccharide (groups A, C, Y and W-135) conjugate vaccine (MCV4P) 2008-11-26 00:00:[address] [facility] TDAP 2008-11-26 00:00:[address] [facility] Varicella (varivax)(chicken pox) 2008-11-26 00:00:[address] [facility] Meningococcal Polysaccharide (groups A, C, Y and W-135) conjugate vaccine (MCV4P) 2008-11-26 00:00:[address] [facility] TDAP 2008-11-26 00:00:[address] [facility] Varicella (varivax)(chicken pox) 2008-11-26 00:00:[address] [facility] Meningococcal Polysaccharide (groups A, C, Y and W-135) conjugate vaccine (MCV4P) 2008-11-26 [facility] [facility] Varicella (varivax)(chicken pox) 2008-11-26 00:00:[address] [facility] Meningococcal Polysaccharide (groups A, C, Y and W-135) conjugate vaccine (MCV4P) 2008-11-26 [facility] [facility] Varicella (varivax)(chicken pox) 2008-11-26 00:00:[address] [facility] Meningococcal Polysaccharide (groups A, C, Y and W-135) conjugate vaccine (MCV4P) 2008-11-26 00:00:[address] [facility] TDAP 2008-11-26 00:00:[address] [facility] Varicella (varivax)(chicken pox) 2008-11-26 00:00:[address] [facility] Meningococcal Polysaccharide (groups A, C, Y and W-135) conjugate vaccine (MCV4P) 2008-11-26 00:00:[address] [facility] TDAP 2008-11-26 00:00:[address] [facility] Varicella (varivax)(chicken pox) 2008-11-26 00:00:[address] [facility] Meningococcal Polysaccharide (groups A, C, Y and W-135) conjugate vaccine (MCV4P) 2008-11-26 00:00:[address] [facility] TDAP 2008-11-26 00:00:[address] [facility] Varicella (varivax)(chicken pox) 2008-11-26 00:00:[address] [facility] Meningococcal Polysaccharide (groups A, C, Y and W-135) conjugate vaccine (MCV4P) 2008-11-26 00:00:[address] [facility] TDAP 2008-11-26 00:00:[address] [facility] Varicella (varivax)(chicken pox) 2008-11-26 00:00:[address] [facility] Meningococcal Polysaccharide (groups A, C, Y and W-135) conjugate vaccine (MCV4P) 2008-11-26 00:00:[address] [facility] TDAP 2008-11-26 00:00:[address] [facility] Varicella (varivax)(chicken pox) 2008-11-26 00:00:[address] [facility] Meningococcal Polysaccharide (groups A, C, Y and W-135) conjugate vaccine (MCV4P) 2008-11-26 00:00:[address] [facility] TDAP 2008-11-26 00:00:[address] [facility] Varicella (varivax)(chicken pox) 2008-11-26 00:00:[address] [facility] Meningococcal Polysaccharide (groups A, C, Y and W-135) conjugate vaccine (MCV4P) 2008-11-26 00:00:[address] [facility] TDAP 2008-11-26 00:00:[address] [facility] Varicella (varivax)(chicken pox) 2008-11-26 00:00:[address] [facility] Meningococcal Polysaccharide (groups A, C, Y and W-135) conjugate vaccine (MCV4P) 2008-11-26 00:00:[address] [facility] TDAP 2008-11-26 00:00:[address] [facility] Varicella (varivax)(chicken pox) 2008-11-26 00:00:[address] [facility] Meningococcal Polysaccharide (groups A, C, Y and W-135) conjugate vaccine (MCV4P) 2008-11-26 00:00:[address] [facility] TDAP 2008-11-26 00:00:[address] [facility] Varicella (varivax)(chicken pox) 2008-11-26 00:00:[address] [facility] Meningococcal Polysaccharide (groups A, C, Y and W-135) conjugate vaccine (MCV4P) 2008-11-26 00:00:[address] [facility] TDAP 2008-11-26 00:00:[address] [facility] Varicella (varivax)(chicken pox) 2008-11-26 00:00:[address] [facility] Meningococcal Polysaccharide (groups A, C, Y and W-135) conjugate vaccine (MCV4P) 2008-11-26 00:00:[address] [facility] TDAP 2008-11-26 00:00:[address] [facility] Varicella (varivax)(chicken pox) 2008-11-26 00:00:[address] [facility] Meningococcal Polysaccharide (groups A, C, Y and W-135) conjugate vaccine (MCV4P) 2008-11-26 00:00:[address] [facility] TDAP 2008-11-26 00:00:[address] [facility] Varicella (varivax)(chicken pox) 2008-11-26 00:00:[address] [facility] Meningococcal Polysaccharide (groups A, C, Y and W-135) conjugate vaccine (MCV4P) 2008-11-26 00:00:[address] [facility] TDAP 2008-11-26 00:00:[address] [facility] Varicella (varivax)(chicken pox) 2008-11-26 00:00:[address] [facility] Meningococcal Polysaccharide (groups A, C, Y and W-135) conjugate vaccine (MCV4P) 2008-11-26 00:00:[address] [facility] TDAP 2008-11-26 00:00:[address] [facility] Varicella (varivax)(chicken pox) 2008-11-26 00:00:[address] [facility] Meningococcal Polysaccharide (groups A, C, Y and W-135) conjugate vaccine (MCV4P) 2008-11-26 00:00:[address] [facility] TDAP 2008-11-26 00:00:[address] [facility] Varicella (varivax)(chicken pox) 2008-11-26 00:00:[address] [facility] Meningococcal Polysaccharide (groups A, C, Y and W-135) conjugate vaccine (MCV4P) 2008-11-26 00:00:[address] [facility] TDAP 2008-11-26 00:00:[address] [facility] Varicella (varivax)(chicken pox) 2008-11-26 00:00:[address] [facility] Meningococcal Polysaccharide (groups A, C, Y and W-135) conjugate vaccine (MCV4P) 2008-11-26 00:00:[address] [facility] MMR 2001-02-04 00:00:[address] [facility] IPV 2001-02-04 00:00:[address] [facility] DTaP, Unspecified Formulation 2001-02-04 00:00:[address] [facility] MMR 2001-02-04 00:00:[address] [facility] IPV 2001-02-04 00:00:[address] [facility] DTaP, Unspecified Formulation 2001-02-04 00:00:[address] [facility] MMR 2001-02-04 00:00:[address] [facility] IPV 2001-02-04 00:00:[address] [facility] DTaP, Unspecified Formulation 2001-02-04 00:00:[address] [facility] MMR 2001-02-04 00:00:[address] [facility] IPV 2001-02-04 00:00:[address] [facility] DTaP, Unspecified Formulation 2001-02-04 00:00:[address] [facility] MMR 2001-02-04 00:00:[address] [facility] IPV 2001-02-04 00:00:[address] [facility] DTaP, Unspecified Formulation 2001-02-04 00:00:[address] [facility] MMR 2001-02-04 00:00:[address] [facility] IPV 2001-02-04 00:00:[address] [facility] DTaP, Unspecified Formulation 2001-02-04 00:00:[address] [facility] MMR 2001-02-04 00:00:[address] [facility] IPV 2001-02-04 00:00:[address] [facility] DTaP, Unspecified Formulation 2001-02-04 00:00:[address] [facility] MMR 2001-02-04 00:00:[address] [facility] IPV 2001-02-04 00:00:[address] [facility] DTaP, Unspecified Formulation 2001-02-04 00:00:[address] [facility] MMR 2001-02-04 00:00:[address] [facility] IPV 2001-02-04 00:00:[address] [facility] DTaP, Unspecified Formulation 2001-02-04 00:00:[address] [facility] MMR 2001-02-04 00:00:[address] [facility] IPV 2001-02-04 00:00:[address] [facility] DTaP, Unspecified Formulation 2001-02-04 00:00:[address] [facility] MMR 2001-02-04 00:00:[address] [facility] IPV 2001-02-04 00:00:[address] [facility] DTaP, Unspecified Formulation 2001-02-04 00:00:[address] [facility] MMR 2001-02-04 00:00:[address] [facility] IPV 2001-02-04 00:00:[address] [facility] DTaP, Unspecified Formulation 2001-02-04 00:00:[address] [facility] MMR 2001-02-04 00:00:[address] [facility] IPV 2001-02-04 00:00:[address] [facility] DTaP, Unspecified Formulation 2001-02-04 00:00:[address] [facility] MMR 2001-02-04 00:00:[address] [facility] IPV 2001-02-04 00:00:[address] [facility] DTaP, Unspecified Formulation 2001-02-04 00:00:[address] [facility] MMR 2001-02-04 00:00:00 Completed [facility] IPV 2001-02-04 00:00:[address] [facility] DTaP, Unspecified Formulation 2001-02-04 00:00:[address] [facility] MMR 2001-02-04 00:00:[address] [facility] IPV 2001-02-04 00:00:[address] [facility] DTaP, Unspecified Formulation 2001-02-04 00:00:[address] [facility] MMR 2001-02-04 00:00:[address] [facility] IPV 2001-02-04 00:00:[address] [facility] DTaP, Unspecified Formulation 2001-02-04 00:00:[address] [facility] MMR 2001-02-04 00:00:[address] [facility] IPV 2001-02-04 00:00:[address] [facility] DTaP, Unspecified Formulation 2001-02-04 00:00:[address] [facility] MMR 2001-02-04 00:00:[address] [facility] IPV 2001-02-04 00:00:[address] [facility] DTaP, Unspecified Formulation 2001-02-04 00:00:[address] [facility] MMR 2001-02-04 00:00:[address] [facility] IPV 2001-02-04 00:00:[address] [facility] DTaP, Unspecified Formulation 2001-02-04 00:00:[address] [facility] MMR 2001-02-04 00:00:[address] [facility] IPV 2001-02-04 00:00:[address] [facility] DTaP, Unspecified Formulation 2001-02-04 00:00:[address] [facility] MMR 2001-02-04 00:00:[address] [facility] IPV 2001-02-04 00:00:[address] [facility] DTaP, Unspecified Formulation 2001-02-04 00:00:[address] [facility] MMR 1998-07-29 00:00:[address] [facility] DPT/HIB 1998-07-29 00:00:[address] [facility] MMR 1998-07-29 00:00:[address] [facility] DPT/HIB 1998-07-29 00:00:[address] [facility] MMR 1998-07-29 00:00:[address] [facility] DPT/HIB 1998-07-29 00:00:[address] [facility] MMR 1998-07-29 00:00:[address] [facility] DPT/HIB 1998-07-29 00:00:00 Completed [facility] MMR 1998-07-29 00:00:00 Completed [facility] DPT/HIB 1998-07-29 00:00:00 Completed [facility] MMR 1998-07-29 00:00:00 Completed [facility] DPT/HIB 1998-07-29 00:00:[address] [facility] MMR 1998-07-29 00:00:[address] [facility] DPT/HIB 1998-07-29 00:00:00 Completed [facility] MMR 1998-07-29 00:00:00 Completed [facility] DPT/HIB 1998-07-29 00:00:[address] [facility] MMR 1998-07-29 00:00:[address] [facility] DPT/HIB 1998-07-29 00[facility]00:[address] [facility] MMR 1998-07-29 00:00:[address] [facility] DPT/HIB 1998-07-29 00:00:[address] [facility] MMR 1998-07-29 00:00:00 Completed [facility] DPT/HIB 1998-07-29 00[facility]00:[address] [facility] MMR 1998-07-29 00:00:00 Completed [facility] [facility] DPT/HIB 1998-07-29 00:00:[address] [facility] MMR 1998-07-29 00:00:00 Completed [facility] DPT/HIB 1998-07-29 00:00:00 Completed [facility] MMR 1998-07-29 00:00:00 Completed [facility] DPT/HIB 1998-07-29 00:00:00 Completed [facility] MMR 1998-07-29 00:00:00 Completed [facility] DPT/HIB 1998-07-29 00:00:00 Completed [facility] MMR 1998-07-29 00:00:00 Completed [facility] DPT/HIB 1998-07-29 00:00:00 Completed [facility] MMR 1998-07-29 00:00:00 Completed [facility] DPT/HIB 1998-07-29 00:00:[address] [facility] MMR 1998-07-29 00:00:[address] [facility] DPT/HIB 1998-07-29 00:00:[address] [facility] MMR 1998-07-29 00:00:[address] [facility] DPT/HIB 1998-07-29 00:00:[address] [facility] MMR 1998-07-29 00:00:[address] [facility] DPT/HIB 1998-07-29 00:00:[address] [facility] MMR 1998-07-29 00:00:[address] [facility] DPT/HIB 1998-07-29 00:00:[address] [facility] MMR 1998-07-29 00:00:[address] [facility] DPT/HIB 1998-07-29 00:00:[address] [facility] Poliovirus, Live, Oral, Trivalent 1998-02-04 00:00:[address] [facility] Varicella (varivax)(chicken pox) 1998-02-04 00:00:[address] [facility] Poliovirus, Live, Oral, Trivalent 1998-02-04 00:00:[address] [facility] Varicella (varivax)(chicken pox) 1998-02-04 00:00:[address] [facility] Poliovirus, Live, Oral, Trivalent 1998-02-04 00:00:[address] [facility] Varicella (varivax)(chicken pox) 1998-02-04 00:00:[address] [facility] Poliovirus, Live, Oral, Trivalent 1998-02-04 00:00:[address] [facility] Varicella (varivax)(chicken pox) 1998-02-04 00:00:[address] [facility] Poliovirus, Live, Oral, Trivalent 1998-02-04 00:00:[address] [facility] Varicella (varivax)(chicken pox) 1998-02-04 00:00:[address] [facility] Poliovirus, Live, Oral, Trivalent 1998-02-04 00:00:[address] [facility] Varicella (varivax)(chicken pox) 1998-02-04 00:00:[address] [facility] Poliovirus, Live, Oral, Trivalent 1998-02-04 00:00:[address] [facility] Varicella (varivax)(chicken pox) 1998-02-04 00:00:[address] [facility] Poliovirus, Live, Oral, Trivalent 1998-02-04 00:00:[address] [facility] Varicella (varivax)(chicken pox) 1998-02-04 00:00:[address] [facility] Poliovirus, Live, Oral, Trivalent 1998-02-04 00:00:[address] [facility] Varicella (varivax)(chicken pox) 1998-02-04 00:00:[address] [facility] Poliovirus, Live, Oral, Trivalent 1998-02-04 00:00:[address] [facility] Varicella (varivax)(chicken pox) 1998-02-04 00:00:[address] [facility] Poliovirus, Live, Oral, Trivalent 1998-02-04 00:00:[address] [facility] Varicella (varivax)(chicken pox) 1998-02-04 00:00:[address] [facility] Poliovirus, Live, Oral, Trivalent 1998-02-04 00:00:[address] [facility] Varicella (varivax)(chicken pox) 1998-02-04 00:00:[address] [facility] Poliovirus, Live, Oral, Trivalent 1998-02-04 00:00:[address] [facility] Varicella (varivax)(chicken pox) 1998-02-04 00:00:[address] [facility] Poliovirus, Live, Oral, Trivalent 1998-02-04 00:00:[address] [facility] Varicella (varivax)(chicken pox) 1998-02-04 00:00:[address] [facility] Poliovirus, Live, Oral, Trivalent 1998-02-04 00:00:[address] [facility] Varicella (varivax)(chicken pox) 1998-02-04 00:00:[address] [facility] Poliovirus, Live, Oral, Trivalent 1998-02-04 00:00:[address] [facility] Varicella (varivax)(chicken pox) 1998-02-04 00:00:[address] [facility] Poliovirus, Live, Oral, Trivalent 1998-02-04 00:00:[address] [facility] Varicella (varivax)(chicken pox) 1998-02-04 00:00:[address] [facility] Poliovirus, Live, Oral, Trivalent 1998-02-04 00:00:[address] [facility] Varicella (varivax)(chicken pox) 1998-02-04 00:00:[address] [facility] Poliovirus, Live, Oral, Trivalent 1998-02-04 00:00:[address] [facility] Varicella (varivax)(chicken pox) 1998-02-04 00:00:[address] [facility] Poliovirus, Live, Oral, Trivalent 1998-02-04 00:00:[address] [facility] Varicella (varivax)(chicken pox) 1998-02-04 00:00:[address] [facility] Poliovirus, Live, Oral, Trivalent 1998-02-04 00:00:[address] [facility] Varicella (varivax)(chicken pox) 1998-02-04 00:00:[address] [facility] Poliovirus, Live, Oral, Trivalent 1998-02-04 00:00:[address] [facility] Varicella (varivax)(chicken pox) 1998-02-04 00:00:[address] [facility] Hep B, Adol or Pedi Dosage 1997-10-28 00:00:[address] [facility] Hep B, Adol or Pedi Dosage 1997-10-28 00:00:[address] [facility] Hep B, Adol or Pedi Dosage 1997-10-28 00:00:[address] [facility] Hep B, Adol or Pedi Dosage 1997-10-28 00:00:[address] [facility] Hep B, Adol or Pedi Dosage 1997-10-28 00:00:[address] [facility] Hep B, Adol or Pedi Dosage 1997-10-28 00:00:[address] [facility] Hep B, Adol or Pedi Dosage 1997-10-28 00:00:[address] [facility] Hep B, Adol or Pedi Dosage 1997-10-28 00:00:[address] [facility] Hep B, Adol or Pedi Dosage 1997-10-28 00:00:[address] [facility] Hep B, Adol or Pedi Dosage 1997-10-28 00:00:[address] [facility] Hep B, Adol or Pedi Dosage 1997-10-28 00:00:[address] [facility] Hep B, Adol or Pedi Dosage 1997-10-28 00:00:[address] [facility] Hep B, Adol or Pedi Dosage 1997-10-28 00:00:[address] [facility] Hep B, Adol or Pedi Dosage 1997-10-28 00:00:[address] [facility] Hep B, Adol or Pedi Dosage 1997-10-28 00:00:[address] [facility] Hep B, Adol or Pedi Dosage 1997-10-28 00:00:[address] [facility] Hep B, Adol or Pedi Dosage 1997-10-28 00:00:[address] [facility] Hep B, Adol or Pedi Dosage 1997-10-28 00:00:[address] [facility] Hep B, Adol or Pedi Dosage 1997-10-28 00:00:[address] [facility] Hep B, Adol or Pedi Dosage 1997-10-28 00:00:[address] [facility] Hep B, Adol or Pedi Dosage 1997-10-28 00:00:[address] [facility] Hep B, Adol or Pedi Dosage 1997-10-28 00:00:[address] [facility] DTaP, Unspecified Formulation 1997-06-29 00:00:[address] [facility] Hib-HbOC 1997-06-29 00:00:[address] [facility] DTaP, Unspecified Formulation 1997-06-29 00:00:[address] [facility] Hib-HbOC 1997-06-29 00:00:[address] [facility] DTaP, Unspecified Formulation 1997-06-29 00:00:[address] [facility] Hib-HbOC 1997-06-29 00:00:[address] [facility] DTaP, Unspecified Formulation 1997-06-29 00:00:[address] [facility] Hib-HbOC 1997-06-29 00:00:[address] [facility] DTaP, Unspecified Formulation 1997-06-29 00:00:[address] [facility] Hib-HbOC 1997-06-29 00:00:[address] [facility] DTaP, Unspecified Formulation 1997-06-29 00:00:[address] [facility] Hib-HbOC 1997-06-29 00:00:[address] [facility] DTaP, Unspecified Formulation 1997-06-29 00:00:[address] [facility] Hib-HbOC 1997-06-29 00:00:[address] [facility] DTaP, Unspecified Formulation 1997-06-29 00:00:[address] [facility] Hib-HbOC 1997-06-29 00:00:[address] [facility] DTaP, Unspecified Formulation 1997-06-29 00:00:[address] [facility] Hib-HbOC 1997-06-29 00:00:[address] [facility] DTaP, Unspecified Formulation 1997-06-29 00:00:[address] [facility] Hib-HbOC 1997-06-29 00:00:[address] [facility] DTaP, Unspecified Formulation 1997-06-29 00:00:[address] [facility] Hib-HbOC 1997-06-29 00:00:[address] [facility] DTaP, Unspecified Formulation 1997-06-29 00:00:[address] [facility] Hib-HbOC 1997-06-29 00:00:[address] [facility] DTaP, Unspecified Formulation 1997-06-29 00:00:[address] [facility] Hib-HbOC 1997-06-29 00:00:[address] [facility] DTaP, Unspecified Formulation 1997-06-29 00:00:[address] [facility] Hib-HbOC 1997-06-29 00:00:[address] [facility] DTaP, Unspecified Formulation 1997-06-29 00:00:[address] [facility] Hib-HbOC 1997-06-29 00:00:[address] [facility] DTaP, Unspecified Formulation 1997-06-29 00:00:[address] [facility] Hib-HbOC 1997-06-29 00:00:[address] [facility] DTaP, Unspecified Formulation 1997-06-29 00:00:[address] [facility] Hib-HbOC 1997-06-29 00:00:[address] [facility] DTaP, Unspecified Formulation 1997-06-29 00:00:[address] [facility] Hib-HbOC 1997-06-29 00:00:[address] [facility] DTaP, Unspecified Formulation 1997-06-29 00:00:[address] [facility] Hib-HbOC 1997-06-29 00:00:[address] [facility] DTaP, Unspecified Formulation 1997-06-29 00:00:[address] [facility] Hib-HbOC 1997-06-29 00:00:[address] [facility] DTaP, Unspecified Formulation 1997-06-29 00:00:[address] [facility] Hib-HbOC 1997-06-29 00:00:[address] [facility] DTaP, Unspecified Formulation 1997-06-29 00:00:[address] [facility] Hib-HbOC 1997-06-29 00:00:[address] [facility] Hib-HbOC 1997-04-19 00:00:[address] [facility] IPV 1997-04-19 00:00:[address] [facility] DTaP, Unspecified Formulation 1997-04-19 00:00:[address] [facility] Hib-HbOC 1997-04-19 00:00:[address] [facility] IPV 1997-04-19 00:00:[address] [facility] DTaP, Unspecified Formulation 1997-04-19 00:00:[address] [facility] Hib-HbOC 1997-04-19 00:00:[address] [facility] IPV 1997-04-19 00:00:[address] [facility] DTaP, Unspecified Formulation 1997-04-19 00:00:[address] [facility] Hib-HbOC 1997-04-19 00:00:[address] [facility] IPV 1997-04-19 00:00:[address] [facility] DTaP, Unspecified Formulation 1997-04-19 00:00:[address] [facility] Hib-HbOC 1997-04-19 00:00:[address] [facility] IPV 1997-04-19 00:00:[address] [facility] DTaP, Unspecified Formulation 1997-04-19 00:00:[address] [facility] Hib-HbOC 1997-04-19 00:00:[address] [facility] IPV 1997-04-19 00:00:[address] [facility] DTaP, Unspecified Formulation 1997-04-19 00:00:[address] [facility] Hib-HbOC 1997-04-19 00:00:[address] [facility] IPV 1997-04-19 00:00:[address] [facility] DTaP, Unspecified Formulation 1997-04-19 00:00:[address] [facility] Hib-HbOC 1997-04-19 00:00:[address] [facility] IPV 1997-04-19 00:00:[address] [facility] DTaP, Unspecified Formulation 1997-04-19 00:00:[address] [facility] Hib-HbOC 1997-04-19 00:00:[address] [facility] IPV 1997-04-19 00:00:[address] [facility] DTaP, Unspecified Formulation 1997-04-19 00:00:[address] [facility] Hib-HbOC 1997-04-19 00:00:[address] [facility] IPV 1997-04-19 00:00:[address] [facility] DTaP, Unspecified Formulation 1997-04-19 00:00:[address] [facility] Hib-HbOC 1997-04-19 00:00:[address] [facility] IPV 1997-04-19 00:00:[address] [facility] DTaP, Unspecified Formulation 1997-04-19 00:00:[address] [facility] Hib-HbOC 1997-04-19 00:00:[address] [facility] IPV 1997-04-19 00:00:[address] [facility] DTaP, Unspecified Formulation 1997-04-19 00:00:[address] [facility] Hib-HbOC 1997-04-19 00:00:[address] [facility] IPV 1997-04-19 00:00:[address] [facility] DTaP, Unspecified Formulation 1997-04-19 00:00:[address] [facility] Hib-HbOC 1997-04-19 00:00:[address] [facility] IPV 1997-04-19 00:00:[address] [facility] DTaP, Unspecified Formulation 1997-04-19 00:00:[address] [facility] Hib-HbOC 1997-04-19 00:00:[address] [facility] IPV 1997-04-19 00:00:[address] [facility] DTaP, Unspecified Formulation 1997-04-19 00:00:[address] [facility] Hib-HbOC 1997-04-19 00:00:[address] [facility] IPV 1997-04-19 00:00:[address] [facility] DTaP, Unspecified Formulation 1997-04-19 00:00:[address] [facility] Hib-HbOC 1997-04-19 00:00:[address] [facility] IPV 1997-04-19 00:00:[address] [facility] DTaP, Unspecified Formulation 1997-04-19 00:00:[address] [facility] Hib-HbOC 1997-04-19 00:00:[address] [facility] IPV 1997-04-19 00:00:[address] [facility] DTaP, Unspecified Formulation 1997-04-19 00:00:[address] [facility] Hib-HbOC 1997-04-19 00:00:[address] [facility] IPV 1997-04-19 00:00:[address] [facility] DTaP, Unspecified Formulation 1997-04-19 00:00:[address] [facility] Hib-HbOC 1997-04-19 00:00:[address] [facility] IPV 1997-04-19 00:00:[address] [facility] DTaP, Unspecified Formulation 1997-04-19 00:00:[address] [facility] Hib-HbOC 1997-04-19 00:00:[address] [facility] IPV 1997-04-19 00:00:[address] [facility] DTaP, Unspecified Formulation 1997-04-19 00:00:[address] [facility] Hib-HbOC 1997-04-19 00:00:[address] [facility] IPV 1997-04-19 00:00:[address] [facility] DTaP, Unspecified Formulation 1997-04-19 00:00:[address] [facility] Hib-HbOC 1997-02-10 00:00:[address] [facility] IPV 1997-02-10 00:00:[address] [facility] DTaP, Unspecified Formulation 1997-02-10 00:00:[address] [facility] Hib-HbOC 1997-02-10 00:00:[address] [facility] IPV 1997-02-10 00:00:[address] [facility] DTaP, Unspecified Formulation 1997-02-10 00:00:[address] [facility] Hib-HbOC 1997-02-10 00:00:[address] [facility] IPV 1997-02-10 00:00:[address] [facility] DTaP, Unspecified Formulation 1997-02-10 00:00:[address] [facility] Hib-HbOC 1997-02-10 00:00:[address] [facility] IPV 1997-02-10 00:00:[address] [facility] DTaP, Unspecified Formulation 1997-02-10 00:00:[address] [facility] Hib-HbOC 1997-02-10 00:00:[address] [facility] IPV 1997-02-10 00:00:[address] [facility] DTaP, Unspecified Formulation 1997-02-10 00:00:[address] [facility] Hib-HbOC 1997-02-10 00:00:[address] [facility] IPV 1997-02-10 00:00:[address] [facility] DTaP, Unspecified Formulation 1997-02-10 00:00:[address] [facility] Hib-HbOC 1997-02-10 00:00:[address] [facility] IPV 1997-02-10 00:00:[address] [facility] DTaP, Unspecified Formulation 1997-02-10 00:00:[address] [facility] Hib-HbOC 1997-02-10 00:00:[address] [facility] IPV 1997-02-10 00:00:[address] [facility] DTaP, Unspecified Formulation 1997-02-10 00:00:[address] [facility] Hib-HbOC 1997-02-10 00:00:[address] [facility] IPV 1997-02-10 00:00:[address] [facility] DTaP, Unspecified Formulation 1997-02-10 00:00:[address] [facility] Hib-HbOC 1997-02-10 00:00:[address] [facility] IPV 1997-02-10 00:00:[address] [facility] DTaP, Unspecified Formulation 1997-02-10 00:00:[address] [facility] Hib-HbOC 1997-02-10 00:00:[address] [facility] IPV 1997-02-10 00:00:[address] [facility] DTaP, Unspecified Formulation 1997-02-10 00:00:[address] [facility] Hib-HbOC 1997-02-10 00:00:[address] [facility] IPV 1997-02-10 00:00:[address] [facility] DTaP, Unspecified Formulation 1997-02-10 00:00:[address] [facility] Hib-HbOC 1997-02-10 00:00:[address] [facility] IPV 1997-02-10 00:00:[address] [facility] DTaP, Unspecified Formulation 1997-02-10 00:00:[address] [facility] Hib-HbOC 1997-02-10 00:00:[address] [facility] IPV 1997-02-10 00:00:[address] [facility] DTaP, Unspecified Formulation 1997-02-10 00:00:[address] [facility] Hib-HbOC 1997-02-10 00:00:[address] [facility] IPV 1997-02-10 00:00:[address] [facility] DTaP, Unspecified Formulation 1997-02-10 00:00:[address] [facility] Hib-HbOC 1997-02-10 00:00:[address] [facility] IPV 1997-02-10 00:00:[address] [facility] DTaP, Unspecified Formulation 1997-02-10 00:00:[address] [facility] Hib-HbOC 1997-02-10 00:00:[address] [facility] IPV 1997-02-10 00:00:[address] [facility] DTaP, Unspecified Formulation 1997-02-10 00:00:[address] [facility] Hib-HbOC 1997-02-10 00:00:[address] [facility] IPV 1997-02-10 00:00:[address] [facility] DTaP, Unspecified Formulation 1997-02-10 00:00:[address] [facility] Hib-HbOC 1997-02-10 00:00:[address] [facility] IPV 1997-02-10 00:00:[address] [facility] DTaP, Unspecified Formulation 1997-02-10 00:00:[address] [facility] Hib-HbOC 1997-02-10 00:00:[address] [facility] IPV 1997-02-10 00:00:[address] [facility] DTaP, Unspecified Formulation 1997-02-10 00:00:[address] [facility] Hib-HbOC 1997-02-10 00:00:[address] [facility] IPV 1997-02-10 00:00:[address] [facility] DTaP, Unspecified Formulation 1997-02-10 00:00:[address] [facility] Hib-HbOC 1997-02-10 00:00:[address] [facility] IPV 1997-02-10 00:00:[address] [facility] DTaP, Unspecified Formulation 1997-02-10 00:00:[address] [facility] Hep B, Adol or Pedi Dosage 1997-01-19 00:00:[address] [facility] Hep B, Adol or Pedi Dosage 1997-01-19 00:00:[address] [facility] Hep B, Adol or Pedi Dosage 1997-01-19 00:00:[address] [facility] Hep B, Adol or Pedi Dosage 1997-01-19 00:00:[address] [facility] Hep B, Adol or Pedi Dosage 1997-01-19 00:00:[address] [facility] Hep B, Adol or Pedi Dosage 1997-01-19 00:00:[address] [facility] Hep B, Adol or Pedi Dosage 1997-01-19 00:00:[address] [facility] Hep B, Adol or Pedi Dosage 1997-01-19 00:00:[address] [facility] Hep B, Adol or Pedi Dosage 1997-01-19 00:00:[address] [facility] Hep B, Adol or Pedi Dosage 1997-01-19 00:00:[address] [facility] Hep B, Adol or Pedi Dosage 1997-01-19 00:00:[address] [facility] Hep B, Adol or Pedi Dosage 1997-01-19 00:00:[address] [facility] Hep B, Adol or Pedi Dosage 1997-01-19 00:00:[address] [facility] Hep B, Adol or Pedi Dosage 1997-01-19 00:00:[address] [facility] Hep B, Adol or Pedi Dosage 1997-01-19 00:00:[address] [facility] Hep B, Adol or Pedi Dosage 1997-01-19 00:00:[address] [facility] Hep B, Adol or Pedi Dosage 1997-01-19 00:00:[address] [facility] Hep B, Adol or Pedi Dosage 1997-01-19 00:00:[address] [facility] Hep B, Adol or Pedi Dosage 1997-01-19 00:00:[address] [facility] Hep B, Adol or Pedi Dosage 1997-01-19 00:00:[address] [facility] Hep B, Adol or Pedi Dosage 1997-01-19 00:00:[address] [facility] Hep B, Adol or Pedi Dosage 1997-01-19 00:00:[address] [facility] Hep B, Adol or Pedi Dosage 1996 00:00:[address] [facility] Hep B, Adol or Pedi Dosage 1996 00:00:[address] [facility] Hep B, Adol or Pedi Dosage 1996 00:00:[address] [facility] Hep B, Adol or Pedi Dosage 1996 00:00:[address] [facility] Hep B, Adol or Pedi Dosage 1996 00:00:[address] [facility] Hep B, Adol or Pedi Dosage 1996 00:00:[address] [facility] Hep B, Adol or Pedi Dosage 1996 00:00:[address] [facility] Hep B, Adol or Pedi Dosage 1996 00:00:[address] [facility] Hep B, Adol or Pedi Dosage 1996 00:00:[address] [facility] Hep B, Adol or Pedi Dosage 1996 00:00:[address] [facility] Hep B, Adol or Pedi Dosage 1996 00:00:[address] [facility] Hep B, Adol or Pedi Dosage 1996 00:00:[address] [facility] Hep B, Adol or Pedi Dosage 1996 00:00:[address] [facility] Hep B, Adol or Pedi Dosage 1996 00:00:[address] [facility] Hep B, Adol or Pedi Dosage 1996 00:00:[address] [facility] Hep B, Adol or Pedi Dosage 1996 00:00:[address] [facility] Hep B, Adol or Pedi Dosage 1996 00:00:[address] [facility] Hep B, Adol or Pedi Dosage 1996 00:00:[address] [facility] Hep B, Adol or Pedi Dosage 1996 00:00:[address] [facility] Hep B, Adol or Pedi Dosage 1996 00:00:[address] [facility] Hep B, Adol or Pedi Dosage 1996 00:00:[address] [facility] Hep B, Adol or Pedi Dosage 1996 00:00:[address] [facility] TDAP Unknown Completed [facility] HPV[address] [facility] Influenza Virus Vaccine Quad .5 mL IM 6+ MO (FLUZONE/FLULAVAL/FL UARIX) Unknown Completed [facility] DTaP, Unspecified Formulation Unknown Completed [facility] DPT/HIB Unknown Completed [facility] Hep B, Adol or Pedi Dosage Unknown Completed [facility] Hib-HbOC Unknown Completed [facility] Meningococcal Polysaccharide (groups A, C, Y and W-135) conjugate vaccine (MCV4P) Unknown [facility]pleted [facility] MMR Unknown Completed [facility] IPV Unknown Completed [facility] Poliovirus, Live, Oral, Trivalent Unknown Completed [facility] Varicella (varivax)(chicken pox) Unknown Completed [facility] TDAP Unknown Completed [facility] HPV9 [address] [facility] Influenza Virus Vaccine Quad .5 mL IM 6+ MO (FLUZONE/FLULAVAL/FL UARIX) Unknown Completed [facility] DTaP, Unspecified Formulation Unknown Completed [facility] DPT/HIB Unknown Completed [facility] Hep B, Adol or Pedi Dosage Unknown Completed [facility] Hib-HbOC Unknown Completed [facility] Meningococcal Polysaccharide (groups A, C, Y and W-135) conjugate vaccine (MCV4P) Unknown Completed [facility] MMR Unknown Completed [facility] IPV Unknown Completed [facility] Poliovirus, Live, Oral, Trivalent Unknown Completed [facility] acute [facility] Varicella (varivax)(chicken pox) Unknown Completed [facility] TDAP Unknown Completed [facility] HPV9 [address] [facility] Influenza Virus Vaccine Quad .5 mL IM 6+ MO (FLUZONE/FLULAVAL/FL UARIX) Unknown Completed [facility] DTaP, Unspecified Formulation Unknown Completed [facility] DPT/HIB Unknown Completed [facility] Hep B, Adol or Pedi Dosage Unknown Completed [facility] Hib-HbOC Unknown Completed [facility] Meningococcal Polysaccharide (groups A, C, Y and W-135) conjugate vaccine (MCV4P) Unknown Completed [facility] MMR Unknown Completed [facility] IPV Unknown Completed [facility] Poliovirus, Live, Oral, Trivalent Unknown Completed [facility] acute [facility] Varicella (varivax)(chicken pox) Unknown Completed [facility] TDAP Unknown Completed [facility] HPV9 [address] [facility] Influenza Virus Vaccine Quad .5 mL IM 6+ MO (FLUZONE/FLULAVAL/FL UARIX) Unknown Completed [facility] DTaP, Unspecified Formulation Unknown Completed [facility] DPT/HIB Unknown Completed [facility] Hep B, Adol or Pedi Dosage Unknown Completed [facility] Hib-HbOC Unknown Completed [facility] Meningococcal Polysaccharide (groups A, C, Y and W-135) conjugate vaccine (MCV4P) Unknown Completed [facility] acute [facility] MMR Unknown Completed [facility] IPV Unknown Completed [facility] Poliovirus, Live, Oral, Trivalent Unknown Completed [facility] acute hospital Varicella (varivax)(chicken pox) Unknown Completed [facility] TDAP Unknown Completed [facility] HPV9 [address] [facility] Influenza Virus Vaccine Quad .5 mL IM 6+ MO (FLUZONE/FLULAVAL/FL UARIX) Unknown Completed [facility] DTaP, Unspecified Formulation Unknown Completed [facility] DPT/HIB Unknown Completed [facility] Hep B, Adol or Pedi Dosage Unknown Completed [facility] Hib-HbOC Unknown Completed [facility] Meningococcal Polysaccharide (groups A, C, Y and W-135) conjugate vaccine (MCV4P) Unknown Completed [facility] MMR Unknown Completed [facility] IPV Unknown Completed [facility] Poliovirus, Live, Oral, Trivalent Unknown Completed [facility] acute hospital Varicella (varivax)(chicken pox) Unknown Completed [facility] TDAP Unknown Completed [facility] HPV9 [address] [facility] Influenza Virus Vaccine Quad .5 mL IM 6+ MO (FLUZONE/FLULAVAL/FL UARIX) Unknown Completed [facility] DTaP, Unspecified Formulation Unknown Completed [facility] DPT/HIB Unknown Completed [facility] Hep B, Adol or Pedi Dosage Unknown Completed [facility] Hib-HbOC Unknown Completed [facility] Meningococcal Polysaccharide (groups A, C, Y and W-135) conjugate vaccine (MCV4P) Unknown Completed [facility] MMR Unknown Completed [facility] IPV Unknown Completed [facility] Poliovirus, Live, Oral, Trivalent Unknown Completed [facility] acute [facility] Varicella (varivax)(chicken pox) Unknown Completed [facility] TDAP Unknown Completed [facility] HPV9 [address] [facility] Influenza Virus Vaccine Quad .5 mL IM 6+ MO (FLUZONE/FLULAVAL/FL UARIX) Unknown Completed [facility] DTaP, Unspecified Formulation Unknown Completed [facility] DPT/HIB Unknown Completed [facility] Hep B, Adol or Pedi Dosage Unknown Completed [facility] Hib-HbOC Unknown Completed [facility] Meningococcal Polysaccharide (groups A, C, Y and W-135) conjugate vaccine (MCV4P) Unknown Completed [facility] acute [facility] MMR Unknown Completed [facility] IPV Unknown Completed [facility] Poliovirus, Live, Oral, Trivalent Unknown Completed [facility] acute hospital Varicella (varivax)(chicken pox) Unknown Completed [facility] TDAP Unknown Completed [facility] HPV9 [address] [facility] Influenza Virus Vaccine Quad .5 mL IM 6+ MO (FLUZONE/FLULAVAL/FL UARIX) Unknown Completed [facility] DTaP, Unspecified Formulation Unknown Completed [facility] DPT/HIB Unknown Completed [facility] Hep B, Adol or Pedi Dosage Unknown Completed [facility] Hib-HbOC Unknown Completed [facility] Meningococcal Polysaccharide (groups A, C, Y and W-135) conjugate vaccine (MCV4P) Unknown Completed [facility] acute [facility] MMR Unknown Completed [facility] IPV Unknown Completed [facility] Poliovirus, Live, Oral, Trivalent Unknown Completed [facility] acute hospital Varicella (varivax)(chicken pox) Unknown Completed [facility] TDAP Unknown Completed [facility] HPV9 [address] [facility] Influenza Virus Vaccine Quad .5 mL IM 6+ MO (FLUZONE/FLULAVAL/FL UARIX) Unknown Completed [facility] DTaP, Unspecified Formulation Unknown Completed [facility] DPT/HIB Unknown Completed [facility] Hep B, Adol or Pedi Dosage Unknown Completed [facility] Hib-HbOC Unknown Completed [facility] Meningococcal Polysaccharide (groups A, C, Y and W-135) conjugate vaccine (MCV4P) Unknown Completed [facility] acute [facility] MMR Unknown Completed [facility] IPV Unknown Completed [facility] Poliovirus, Live, Oral, Trivalent Unknown Completed [facility] acute hospital Varicella (varivax)(chicken pox) Unknown Completed [facility] TDAP Unknown Completed [facility] HPV9 [address] [facility] Influenza Virus Vaccine Quad .5 mL IM 6+ MO (FLUZONE/FLULAVAL/FL UARIX) Unknown Completed [facility] DTaP, Unspecified Formulation Unknown Completed [facility] DPT/HIB Unknown Completed [facility] Hep B, Adol or Pedi Dosage Unknown Completed [facility] Hib-HbOC Unknown Completed [facility] Meningococcal Polysaccharide (groups A, C, Y and W-135) conjugate vaccine (MCV4P) Unknown Completed [facility] acute [facility] MMR Unknown Completed [facility] IPV Unknown Completed [facility] Poliovirus, Live, Oral, Trivalent Unknown Completed [facility] acute hospital Varicella (varivax)(chicken pox) Unknown Completed [facility] TDAP Unknown Completed [facility] HPV9 [address] [facility] Influenza Virus Vaccine Quad .5 mL IM 6+ MO (FLUZONE/FLULAVAL/FL UARIX) Unknown Completed [facility] DTaP, Unspecified Formulation Unknown Completed [facility] DPT/HIB Unknown Completed [facility] Hep B, Adol or Pedi Dosage Unknown Completed [facility] Hib-HbOC Unknown Completed [facility] Meningococcal Polysaccharide (groups A, C, Y and W-135) conjugate vaccine (MCV4P) Unknown Completed [facility] acute [facility] MMR Unknown Completed [facility] IPV Unknown Completed [facility] Poliovirus, Live, Oral, Trivalent Unknown Completed [facility] acute hospital Varicella (varivax)(chicken pox) Unknown Completed [facility] TDAP Unknown Completed [facility] HPV9 [address] Com[address] [facility] Influenza Virus Vaccine Quad .5 mL IM 6+ MO (FLUZONE/FLULAVAL/FL UARIX) Unknown Completed [facility] DTaP, Unspecified Formulation Unknown Completed [facility] DPT/HIB Unknown Completed [facility] Hep B, Adol or Pedi Dosage Unknown Completed [facility] Hib-HbOC Unknown Completed [facility] Meningococcal Polysaccharide (groups A, C, Y and W-135) conjugate vaccine (MCV4P) Unknown Completed [facility] acute [facility] MMR Unknown Completed [facility] IPV Unknown Completed [facility] Poliovirus, Live, Oral, Trivalent Unknown Completed [facility] acute hospital Varicella (varivax)(chicken pox) Unknown Completed [facility] TDAP Unknown Completed [facility] HPV9 [address] [facility] Influenza Virus Vaccine Quad .5 mL IM 6+ MO (FLUZONE/FLULAVAL/FL UARIX) Unknown Completed [facility] DTaP, Unspecified Formulation Unknown Completed [facility] DPT/HIB Unknown Completed [facility] Hep B, Adol or Pedi Dosage Unknown Completed [facility] Hib-HbOC Unknown Completed [facility] Meningococcal Polysaccharide (groups A, C, Y and W-135) conjugate vaccine (MCV4P) Unknown Completed [facility] acute [facility] MMR Unknown Completed [facility] IPV Unknown Completed [facility] Poliovirus, Live, Oral, Trivalent Unknown Completed [facility] acute hospital Varicella (varivax)(chicken pox) Unknown Completed [facility] TDAP Unknown Completed [facility] HPV9 [address] [facility] Influenza Virus Vaccine Quad .5 mL IM 6+ MO (FLUZONE/FLULAVAL/FL UARIX) Unknown Completed [facility] DTaP, Unspecified Formulation Unknown Completed [facility] DPT/HIB Unknown Completed [facility] Hep B, Adol or Pedi Dosage Unknown Completed [facility] Hib-HbOC Unknown Completed [facility] Meningococcal Polysaccharide (groups A, C, Y and W-135) conjugate vaccine (MCV4P) Unknown Completed [facility] acute [facility] MMR Unknown Completed [facility] IPV Unknown Completed [facility] Poliovirus, Live, Oral, Trivalent Unknown Completed [facility] acute hospital Varicella (varivax)(chicken pox) Unknown Completed [facility] TDAP Unknown Completed [facility] HPV9 [address] Com[address] [facility] Influenza Virus Vaccine Quad .5 mL IM 6+ MO (FLUZONE/FLULAVAL/FL UARIX) Unknown Completed [facility] DTaP, Unspecified Formulation Unknown Completed [facility] DPT/HIB Unknown Completed [facility] Hep B, Adol or Pedi Dosage Unknown Completed [facility] Hib-HbOC Unknown Completed [facility] Meningococcal Polysaccharide (groups A, C, Y and W-135) conjugate vaccine (MCV4P) Unknown Completed [facility] acute [facility] MMR Unknown Completed [facility] IPV Unknown Completed [facility] Poliovirus, Live, Oral, Trivalent Unknown Completed [facility] Varicella (varivax)(chicken pox) Unknown Completed [facility] DPT/HIB Unknown Completed [facility] Meningococcal Polysaccharide (groups A, C, Y and W-135) conjugate vaccine (MCV4P) Unknown [facility]pleted [facility] Poliovirus, Live, Oral, Trivalent Unknown Completed [facility] TDAP Unknown Completed [facility] HPV[address] [facility] Influenza Virus Vaccine Quad .5 mL IM 6+ MO (FLUZONE/FLULAVAL/FL UARIX) Unknown Completed [facility] DTaP, Unspecified Formulation Unknown Completed [facility] Hep B, Adol or Pedi Dosage Unknown Completed [facility] Hib-HbOC Unknown Completed [facility] MMR Unknown Completed [facility] IPV Unknown Completed [facility] Varicella (varivax)(chicken pox) Unknown Completed [facility] TDAP Unknown Completed [facility] HPV9 [address] [facility] Influenza Virus Vaccine Quad .5 mL IM 6+ MO (FLUZONE/FLULAVAL/FL UARIX) Unknown Completed [facility] DTaP, Unspecified Formulation Unknown Completed [facility] DPT/HIB Unknown Completed [facility] Hep B, Adol or Pedi Dosage Unknown Completed [facility] Hib-HbOC Unknown Completed [facility] Meningococcal Polysaccharide (groups A, C, Y and W-135) conjugate vaccine (MCV4P) Unknown Completed [facility] MMR Unknown Completed [facility] IPV Unknown Completed [facility] Poliovirus, Live, Oral, Trivalent Unknown Completed [facility] Varicella (varivax)(chicken pox) Unknown Completed [facility] TDAP Unknown Completed [facility] HPV9 [address] [facility] Influenza Virus Vaccine Quad .5 mL IM 6+ MO (FLUZONE/FLULAVAL/FL UARIX) Unknown Completed [facility] DTaP, Unspecified Formulation Unknown Completed [facility] DPT/HIB Unknown Completed [facility] Hep B, Adol or Pedi Dosage Unknown Completed [facility] Hib-HbOC Unknown Completed [facility] Meningococcal Polysaccharide (groups A, C, Y and W-135) conjugate vaccine (MCV4P) Unknown Completed [facility] MMR Unknown Completed [facility] IPV Unknown Completed [facility] Poliovirus, Live, Oral, Trivalent Unknown Completed [facility] acute [facility] Varicella (varivax)(chicken pox) Unknown Completed [facility] TDAP Unknown Completed [facility] HPV9 [address] [facility] Influenza Virus Vaccine Quad .5 mL IM 6+ MO (FLUZONE/FLULAVAL/FL UARIX) Unknown Completed [facility] DTaP, Unspecified Formulation Unknown Completed [facility] DPT/HIB Unknown Completed [facility] Hep B, Adol or Pedi Dosage Unknown Completed [facility] Hib-HbOC Unknown Completed [facility] Meningococcal Polysaccharide (groups A, C, Y and W-135) conjugate vaccine (MCV4P) Unknown Completed [facility] MMR Unknown Completed [facility] IPV Unknown Completed [facility] Poliovirus, Live, Oral, Trivalent Unknown Completed [facility] acute [facility] Varicella (varivax)(chicken pox) Unknown Completed [facility] TDAP Unknown Completed [facility] HPV9 [address] [facility] Influenza Virus Vaccine Quad .5 mL IM 6+ MO (FLUZONE/FLULAVAL/FL UARIX) Unknown Completed [facility] DTaP, Unspecified Formulation Unknown Completed [facility] DPT/HIB Unknown Completed [facility] Hep B, Adol or Pedi Dosage Unknown Completed [facility] Hib-HbOC Unknown Completed [facility] Meningococcal Polysaccharide (groups A, C, Y and W-135) conjugate vaccine (MCV4P) Unknown Completed [facility] MMR Unknown Completed [facility] IPV Unknown Completed [facility] Poliovirus, Live, Oral, Trivalent Unknown Completed [facility] acute [facility] Varicella (varivax)(chicken pox) Unknown Completed [facility] DPT/HIB Unknown Completed [facility] Meningococcal Polysaccharide (groups A, C, Y and W-135) conjugate vaccine (MCV4P) Unknown Completed [facility] Poliovirus, Live, Oral, Trivalent Unknown Completed [facility] TDAP Unknown Completed [facility] HPV[address] [facility] Influenza Virus Vaccine Quad .5 mL IM 6+ MO (FLUZONE/FLULAVAL/FL UARIX) Unknown Completed [facility] DTaP, Unspecified Formulation Unknown Completed [facility] Hep B, Adol or Pedi Dosage Unknown Completed [facility] Hib-HbOC Unknown Completed [facility] MMR Unknown Completed [facility] IPV Unknown Completed [facility] Varicella (varivax)(chicken pox) Unknown Completed [facility] DTaP, Unspecified Formulation Unknown Completed [facility] DPT/HIB Unknown Completed [facility] Hep B, Adol or Pedi Dosage Unknown Completed [facility] Hib-HbOC Unknown Completed [facility] Meningococcal Polysaccharide (groups A, C, Y and W-135) conjugate vaccine (MCV4P) Unknown Completed [facility] MMR Unknown Completed [facility] IPV Unknown Completed [facility] Poliovirus, Live, Oral, Trivalent Unknown Completed [facility] acute [facility] Varicella (varivax)(chicken pox) Unknown Completed [facility] TDAP Unknown Completed [facility] HPV[address] [facility] Influenza Virus Vaccine Quad .5 mL IM 6+ MO (FLUZONE/FLULAVAL/FL UARIX) Unknown Completed [facility] TDAP Unknown Completed [facility] HPV[address] [facility] Influenza Virus Vaccine Quad .5 mL IM 6+ MO (FLUZONE/FLULAVAL/FL UARIX) Unknown Completed [facility] DTaP, Unspecified Formulation Unknown Completed [facility] DPT/HIB Unknown Completed [facility] Hep B, Adol or Pedi Dosage Unknown Completed [facility] Hib-HbOC Unknown Completed [facility] Meningococcal Polysaccharide (groups A, C, Y and W-135) conjugate vaccine (MCV4P) Unknown Completed [facility] MMR Unknown Completed [facility] IPV Unknown Completed [facility] Poliovirus, Live, Oral, Trivalent Unknown Completed [facility] acute [facility] Varicella (varivax)(chicken pox) Unknown Completed [facility] TDAP Unknown Completed [facility] HPV9 [address] [facility] Influenza Virus Vaccine Quad .5 mL IM 6+ MO (FLUZONE/FLULAVAL/FL UARIX) Unknown Completed [facility] DTaP, Unspecified Formulation Unknown Completed [facility] DPT/HIB Unknown Completed [facility] Hep B, Adol or Pedi Dosage Unknown Completed [facility] Hib-HbOC Unknown Completed [facility] Meningococcal Polysaccharide (groups A, C, Y and W-135) conjugate vaccine (MCV4P) Unknown Completed [facility] MMR Unknown Completed [facility] IPV Unknown Completed [facility] Poliovirus, Live, Oral, Trivalent Unknown Completed [facility] acute [facility] Varicella (varivax)(chicken pox) Unknown Completed [facility] TDAP Unknown Completed [facility] HPV[address] [facility] Influenza Virus Vaccine Quad .5 mL IM 6+ MO (FLUZONE/FLULAVAL/FL UARIX) Unknown Completed [facility] DTaP, Unspecified Formulation Unknown Completed [facility] DPT/HIB Unknown Completed [facility] Hep B, Adol or Pedi Dosage Unknown Completed [facility] Hib-HbOC Unknown Completed [facility] Meningococcal Polysaccharide (groups A, C, Y and W-135) conjugate vaccine (MCV4P) Unknown Completed [facility] MMR Unknown Completed [facility] IPV Unknown Completed [facility] Poliovirus, Live, Oral, Trivalent Unknown Completed [facility] acute [facility] Varicella (varivax)(chicken pox) Unknown Completed [facility] DPT/HIB Unknown Completed [facility] Meningococcal Polysaccharide (groups A, C, Y and W-135) conjugate vaccine (MCV4P) Unknown Completed [facility] Poliovirus, Live, Oral, Trivalent Unknown Completed [facility] TDAP Unknown Completed [facility] HPV[address] [facility] Influenza Virus Vaccine Quad .5 mL IM 6+ MO (FLUZONE/FLULAVAL/FL UARIX) Unknown Completed [facility] DTaP, Unspecified Formulation Unknown Completed [facility] Hep B, Adol or Pedi Dosage Unknown Completed [facility] Hib-HbOC Unknown Completed [facility] MMR Unknown Completed [facility] IPV Unknown Completed [facility] Varicella (varivax)(chicken pox) Unknown Completed [facility] Vital Signs Vital Name Observation Time Observation Value Comments S ource Systolic blood pressure 2023-12-04 19:21:00 108 mm[Hg] [facility] Diastolic blood pressure 2023-12-04 19:21:00 69 mm[Hg] [facility] acute hospital Heart rate 2023-12-04 19:21:00 75 /min [facility] Body temperature 2023-12-04 19:21:[address] [facility] Respiratory rate 2023-12-04 19:21:00 18 /min [facility] Body height 2023-12-04 19:21:00 167.6 cm [facility] Body weight 2023-12-04 19:21:00 73.483 kg [facility] BMI 2023-12-04 19:21:00 26.15 kg/m2 [facility] Systolic blood pressure 2023-11-13 22:30:00 130 mm[Hg] [facility] Diastolic blood pressure 2023-11-13 22:30:00 80 mm[Hg] [facility] acute hospital Heart rate 2023-11-13 22:30:00 93 /min [facility] Body temperature 2023-11-13 22:30:[address] [facility] Body height 2023-11-13 22:30:00 170.2 cm [facility] Body weight 2023-11-13 22:30:[address] [facility] BMI 2023-11-13 22:30:00 24.97 kg/m2 [facility] Systolic blood pressure 2023-11-06 21:08:00 110 mm[Hg] [facility] hospital Diastolic blood pressure 2023-11-06 21:08:00 68 mm[Hg] [facility] acute hospital Heart rate 2023-11-06 21:08:00 75 /min [facility] Body temperature 2023-11-06 21:08:[address] [facility] Respiratory rate 2023-11-06 21:08:00 17 /min [facility] Body height 2023-11-06 21:08:00 170.2 cm [facility] Body weight 2023-11-06 21:08:00 75.116 kg [facility] BMI 2023-11-06 21:08:00 25.94 kg/m2 [facility] Systolic blood pressure 2023-10-25 19:24:00 106 mm[Hg] [facility] Diastolic blood pressure 2023-10-25 19:24:00 71 mm[Hg] [facility] acute hospital Heart rate 2023-10-25 19:24:00 87 /min [facility] Body temperature 2023-10-25 19:24:[address] [facility] Respiratory rate 2023-10-25 19:24:00 16 /min [facility] Body height 2023-10-25 19:24:[address] [facility] Body weight 2023-10-25 19:24:[address] [facility] BMI 2023-10-25 19:24:00 26.00 kg/m2 [facility] Systolic blood pressure 2023-09-27 15:00:00 106 mm[Hg] [facility] acute hospital Diastolic blood pressure 2023-09-27 15:00:00 64 mm[Hg] [facility] acute hospital Heart rate 2023-09-27 15:00:00 61 /min [facility] Body temperature 2023-09-27 15:00:[address] [facility] Respiratory rate 2023-09-27 15:00:00 18 /min [facility] Oxygen saturation in Arterial blood by Pulse oximetry 2023-09-27 15:00:00 98 /min [facility] Body height 2023-09-25 14:00:[address] [facility] Body weight 2023-09-25 14:00:00 80.74 kg [facility] BMI 2023-09-25 14:00:00 27.88 kg/m2 [facility] Systolic blood pressure 2023-09-20 20:39:00 104 mm[Hg] [facility] acute hospital Diastolic blood pressure 2023-09-20 20:39:00 66 mm[Hg] [facility] acute hospital Heart rate 2023-09-20 20:39:00 89 /min [facility] Respiratory rate 2023-09-20 20:39:00 18 /min [facility] Body height 2023-09-20 20:39:[address] [facility] Body weight 2023-09-20 20:39:00 80.287 kg [facility] BMI 2023-09-20 20:39:00 27.72 kg/m2 [facility] Systolic blood pressure 2023-09-13 16:29:00 107 mm[Hg] [facility] acute hospital Diastolic blood pressure 2023-09-13 16:29:00 72 mm[Hg] [facility] acute hospital Heart rate 2023-09-13 16:29:00 98 /min [facility] Respiratory rate 2023-09-13 16:29:00 18 /min [facility] Body height 2023-09-13 16:29:00 170.2 cm [facility] Body weight 2023-09-13 16:29:00 77.565 kg [facility] BMI 2023-09-13 16:29:00 26.78 kg/m2 [facility] Systolic blood pressure 2023-08-23 19:08:00 126 mm[Hg] [facility] acute hospital Diastolic blood pressure 2023-08-23 19:08:00 84 mm[Hg] [facility] acute hospital Heart rate 2023-08-23 19:08:00 99 /min [facility] Respiratory rate 2023-08-23 19:08:00 18 /min [facility] Body height 2023-08-23 19:08:00 170.2 cm [facility] Body weight 2023-08-23 19:08:00 78.019 [facility] BMI 2023-08-23 19:08:00 26.94 kg/m2 [facility] Systolic blood pressure 2023-08-09 18:33:00 120 mm[Hg] [place] [facility] Diastolic blood pressure 2023-08-09 18:33:00 70 mm[Hg] [facility] acute hospital Heart rate 2023-08-09 18:33:00 71 /min [facility] Respiratory rate 2023-08-09 18:33:00 18 /min [facility] Body height 2023-08-09 18:33:00 170.2 cm [facility] Body weight 2023-08-09 18:33:00 78.926 [facility] BMI 2023-08-09 18:33:00 27.25 kg/m2 [facility] Systolic blood pressure 2023-07-19 17:08:00 126 mm[Hg] [facility] acute hospital Diastolic blood pressure 2023-07-19 17:08:00 82 mm[Hg] [facility] acute hospital Heart rate 2023-07-19 17:08:00 94 /min [facility] Respiratory rate 2023-07-19 17:08:00 18 /min [facility] Body height 2023-07-19 17:08:00 170.2 cm [facility] Body weight 2023-07-19 17:08:00 79.379 [facility] BMI 2023-07-19 17:08:00 27.41 kg/m2 [facility] Systolic blood pressure 2023-06-14 16:26:00 114 mm[Hg] [place] [facility] Diastolic blood pressure 2023-06-14 16:26:00 75 mm[Hg] [facility] acute hospital Heart rate 2023-06-14 16:26:00 75 /min [facility] Respiratory rate 2023-06-14 16:26:00 18 /min [facility] Body height 2023-06-14 16:26:00 170.2 cm [facility] Body weight 2023-06-14 16:26:[address] [facility] BMI 2023-06-14 16:26:00 26.00 kg/m2 [facility] Systolic blood pressure 2023-05-17 16:06:00 119 mm[Hg] [facility] acute hospital Diastolic blood pressure 2023-05-17 16:06:00 73 mm[Hg] [facility] acute hospital Heart rate 2023-05-17 16:06:00 116 /min [facility] Respiratory rate 2023-05-17 16:06:00 18 /min [facility] Body height 2023-05-17 16:06:[address] [facility] Body weight 2023-05-17 16:06:[address] [facility] BMI 2023-05-17 16:06:00 25.22 kg/m2 [facility] Systolic blood pressure 2023-05-07 01:50:00 115 mm[Hg] [facility] acute hospital Diastolic blood pressure 2023-05-07 01:50:00 70 mm[Hg] [facility] acute hospital Heart rate 2023-05-07 01:50:00 93 /min [facility] Body temperature 2023-05-07 01:50:[address] [facility] Respiratory rate 2023-05-07 01:50:00 16 /min [facility] Body height 2023-05-07 01:50:[address] [facility] Body weight 2023-05-07 01:50:[address] [facility] BMI 2023-05-07 01:50:00 23.81 kg/m2 [facility] Oxygen saturation in Arterial blood by Pulse oximetry 2023-05-07 01:50:00 96 /min [facility] Systolic blood pressure 2023-04-19 15:37:00 125 mm[Hg] [facility] acute hospital Diastolic blood pressure 2023-04-19 15:37:00 81 mm[Hg] [facility] acute hospital Heart rate 2023-04-19 15:37:00 97 /min [facility] Body height 2023-04-19 15:37:[address] [facility] Body weight 2023-04-19 15:37:[address] [facility] BMI 2023-04-19 15:37:00 24.68 kg/m2 [facility] Systolic blood pressure 2023-03-29 19:30:00 113 mm[Hg] [facility] acute hospital Diastolic blood pressure 2023-03-29 19:30:00 69 mm[Hg] [facility] acute hospital Heart rate 2023-03-29 19:30:00 88 /min [facility] Respiratory rate 2023-03-29 19:30:00 18 /min [facility] Body weight 2023-03-29 19:30:[address] [facility] BMI 2023-03-29 19:30:00 23.96 kg/m2 [facility] Systolic blood pressure 2023-03-22 13:59:00 111 mm[Hg] [facility] acute hospital Diastolic blood pressure 2023-03-22 13:59:00 73 mm[Hg] [facility] acute hospital Heart rate 2023-03-22 13:59:00 73 /min [facility] Body temperature 2023-03-22 13:59:[address] [facility] Body height 2023-03-22 13:59:[address] [facility] Body weight 2023-03-22 13:59:[address] [facility] BMI 2023-03-22 13:59:00 24.48 kg/m2 [facility] Systolic blood pressure 2023-03-07 02:54:00 125 mm[Hg] [facility] acute hospital Diastolic blood pressure 2023-03-07 02:54:00 84 mm[Hg] General acute hospital Heart rate 2023-03-07 02:54:00 107 /min [facility] Body temperature 2023-03-07 02:54:[address] [facility] Respiratory rate 2023-03-07 02:54:00 18 /min [facility] Body height 2023-03-07 02:54:00 170.2 cm [facility] Body weight 2023-03-07 02:54:00 74.844 kg [facility] BMI 2023-03-07 02:54:00 25.84 kg/m2 [facility] Oxygen saturation in Arterial blood by Pulse oximetry 2023-03-07 02:54:00 97 /min [facility] Systolic blood pressure 2022-12-20 19:25:00 121 mm[Hg] [facility] acute hospital Diastolic blood pressure 2022-12-20 19:25:00 73 mm[Hg] General acute hospital Heart rate 2022-12-20 19:25:00 91 /min [facility] Body temperature 2022-12-20 19:25:[address] [facility] Respiratory rate 2022-12-20 19:25:00 18 /min [facility] Body height 2022-12-20 19:25:00 170.2 cm [facility] Body weight 2022-12-20 19:25:00 72.15 kg [facility] BMI 2022-12-20 19:25:00 24.91 kg/m2 [facility] Systolic blood pressure 2022-07-18 19:19:00 129 mm[Hg] [facility] acute hospital Diastolic blood pressure 2022-07-18 19:19:00 87 mm[Hg] [facility] acute hospital Heart rate 2022-07-18 19:19:00 101 /min [facility] Body temperature 2022-07-18 19:19:[address] [facility] Respiratory rate 2022-07-18 19:19:00 18 /min [facility] Body height 2022-07-18 19:19:00 170.2 cm [facility] Body weight 2022-07-18 19:19:00 73.71 kg [facility] BMI 2022-07-18 19:19:00 25.45 kg/m2 [facility] Systolic blood pressure 2021-12-14 13:58:00 115 mm[Hg] General acute hospital Diastolic blood pressure 2021-12-14 13:58:00 65 mm[Hg] [place] [facility] [facility] Heart rate 2021-12-14 13:58:00 82 /min [facility] Body temperature 2021-12-14 13:58:[address] [facility] Respiratory rate 2021-12-14 13:58:00 16 /min [facility] Body height 2021-12-14 13:58:00 170.2 cm [facility] Body weight 2021-12-14 13:58:00 74.39 kg [facility] BMI 2021-12-14 13:58:00 25.69 kg/m2 [facility] Procedures Procedure Date / Time Performed Performing Clinician Source CONSENT FOR CONTRACEPTION 2023-11-06 06:01:00 Doctor Unassigned, [place] [facility] POCT TEST 2023-11-06 00:00:00 Marcia Ocampo [facility] CBC WITH DIFF 2023-09-26 10:41:00 Marcia Ocampo [facility] POCT GLUCOSE (AUTOMATED) 2023-09-26 03:25:00 Marcia Ocampo [facility] POCT GLUCOSE (AUTOMATED) 2023-09-26 00:48:00 Marcia Ocampo [facility] POCT GLUCOSE (AUTOMATED) 2023-09-25 19:41:00 Marcia Ocampo [facility] CENTRAL NEURAXIAL BLOCK 2023-09-25 16:25:[address] [facility] POCT GLUCOSE (AUTOMATED) 2023-09-25 15:03:00 [facility] INDIRECT ANTIGLOBULIN TEST 2023-09-25 14:08:00 [facility] RHO (D) IMMUNE GLOBULIN 2023-09-25 14:08:00 DamarisMarcia [facility] CBC WITH DIFF 2023-09-24 18:37:00 [facility] ASSIGNMENT OF BENEFITS 2023-09-24 18:12:12 Docto r Unassigned, [place] [facility] CONSENT/REFUSAL FOR DIAGNOSIS AND TREATMENT 2023-09-24 18:11:48 Doctor Unassigned, [place] [facility] PHYSICIAN ORDERS 2023-09-20 06:01:00 Doctor Unas signed, [place] [facility] CBC WITH DIFF 2023-09-13 17:53:00 DamarisMarcia Bryce [facility] DSU PRE-OP 2023-09-13 06:01:00 Doctor Unass igned, [place] [facility] POCT URINALYSIS W/O SPECIFIC GRAVITY 2023-09-13 00:00:00 [facility] SECOND AND THIRD TRIMESTER ULTRASOUND 2023-09-12 20:34:00 Damaris [facility] POCT URINALYSIS W/O SPECIFIC GRAVITY 2023-08-23 00:00:00 Damaris [facility] TDAP VACCINE, >11 YRS, IM 2023-08-09 18:28:34 Damaris [facility] SECOND AND THIRD TRIMESTER ULTRASOUND 2023-08-09 15:44:00 Damaris [facility] POCT URINALYSIS W/O SPECIFIC GRAVITY 2023-08-09 00:00:00 [facility] POCT URINALYSIS W/O SPECIFIC GRAVITY 2023-07-19 00:00:00 Damaris [facility] POCT URINALYSIS W/O SPECIFIC GRAVITY 2023-06-14 00:00:00 Damaris [facility] SECOND AND THIRD TRIMESTER ULTRASOUND 2023-05-29 17:25:00 Damaris [facility] SECOND AND THIRD TRIMESTER ULTRASOUND 2023-05-29 17:10:[address] [facility] POCT URINALYSIS W/O SPECIFIC GRAVITY 2023-05-17 00:00:[address] [facility] ASSIGNMENT OF BENEFITS 2023-05-07 03:00:45 Docto r Unassigned, [place] [facility] [place] INCISION & DRAINAGE ABSCESS COMPLICATED/MULTIPLE 2023-05-07 02:54:[address] [facility] CONSENT/REFUSAL FOR DIAGNOSIS AND TREATMENT 2023-05-07 01:48:05 Doctor Unassigned, [place] [facility] POCT URINALYSIS W/O SPECIFIC GRAVITY 2023-04-19 00:00:[address] [facility] GLYCOSYLATED HEMOGLOBIN (A1C) 2023-03-27 16:12:00 Marcia Ocampo [facility] <14 WEEKS US LIMITED 2023-03-22 15:38:34 Damaris Marcia [facility] SCANNED LAB RESULTS 2023-03-22 05:01:00 Doctor Leisa pierce, [place] [facility] POCT URINALYSIS W/O SPECIFIC GRAVITY 2023-03-22 00:00:00 Damaris Marcia [facility] URINALYSIS 2023-03-07 03:08:00 Ramirez Sanchez [facility] POCT TEST 2023-03-07 03:07:[address] [facility] NOTICE OF PRIVACY PRACTICES 2023-03-07 02:49:46 Doctor Unassigned, [place] [facility] CONSENT/REFUSAL FOR DIAGNOSIS AND TREATMENT 2023-03-07 02:47:26 Doctor Unassigned, [place] [facility] ASSIGNMENT OF BENEFITS 2022-12-20 19:06:39 Docto r Unassigned, [place] [facility] FLU VACC ([phone]), 6+ MONTHS, IM, QUAD 2021-12-14 14:41:[address] [facility] Encounters Start Date/Time End Date/Time Encounter Type Admission Type Attending Clinicians Care Facility Care Department Encounter ID Source 2021-07-06 18:46:07 Emergency [facility] [id number] [facility] 2024-11-03 09:36:03 2024-11-03 09:36:03 Outpatient [facility] [id number] John Beckman 2024-01-31 08:00:00 2024-01-31 08:00:00 Outpatient MARCIA STEWART [facility] [id number] [facility] 2023-12-20 11:30:00 2023-12-20 11:30:00 Outpatient R CARITO PICHARDO [facility] [id number] [facility] 2023-12-18 13:30:00 2023-12-18 13:30:00 Outpatient R CARITO PICHARDO [facility] [id number] [facility] 2023-12-04 14:00:00 2023-12-04 14:37:15 Outpatient R CARITO PICHARDO [facility] [id number] [facility] 2023-12-04 14:00:00 2023-12-04 14:37:15 Office Visit Carito Pichardo [facility] 1.2.840.114 350.1.13.10 4.2.7.2.686 [id number] [facility] 2023-12-03 14:00:00 2023-12-03 14:00:00 Outpatient CARITO BAGLEY [facility] [id number] [facility] 2023-11-29 13:45:00 2023-11-29 13:45:00 Outpatient MARCIA STEWART [facility] [id number] [facility] 2023-11-19 00:00:00 2023-11-19 00:00:00 Refill [facility] 1.2.840.114 350.1.13.10 4.2.7.2.686 [id number] 134 [id number] [facility] 2023-11-13 16:00:00 2023-11-13 16:44:43 Outpatient MARCIA STEWART [facility] [id number] [facility] 2023-11-13 16:00:00 2023-11-13 16:44:43 Office Visit Marcia Ocampo [facility]ESS[facility]AL [facility] 1.2.840.114 350.1.13.10 4.2.7.2.686 [id number] 134 [id number] [facility] 2023-11-13 00:00:00 2023-11-13 00:00:00 Telephone Marcia Ocampo [facility] BUILDING 1.2.840.114 350.1.13.10 4.2.7.2.686 [id number] 134 [id number] [facility] 2023-11-06 15:15:00 2023-11-06 15:36:47 Outpatient R OCAMPO MARCIA [facility] [id number] [facility] 2023-11-06 15:15:00 2023-11-06 15:36:47 Office Visit Marcia Ocampo [facility] 1.2840.114 350.1.13.10 4.2.7.2.686 [id number] 134 [id number] [facility] 2023-11-06 00:00:00 2023-11-06 00:00:00 Orders Only Doctor Unassigned, [place] [facility] 1.2840.114 350.1.13.10 4.2.7.2.686 [id number] [facility] 2023-11-01 00:00:00 2023-11-01 00:00:00 Telephone Damaris Marcia [facility] 1.2840.114 350.1.13.10 4.2.7.2.686 [id number] 134 [id number] [facility] 2023-10-25 13:15:00 2023-10-25 13:41:03 Outpatient R MARCIA OCAMPO [facility] [id number] [facility] 2023-10-25 13:15:00 2023-10-25 13:41:03 Routine Visit Marcia Ocampo [facility] 1.2.840.114 350.1.13.10 4.2.7.2.686 [id number] [facility] 2023-10-11 15:15:00 2023-10-11 15:15:00 Outpatient R MARCIA OCAMPO [facility] [id number] [facility] 2023-09-25 06:27:00 2023-09-27 10:00:00 Inpatient P MARCIA OCAMPO [facility] [id number] [facility] 2023-09-25 06:27:00 2023-09-27 10:00:00 Hospital Encounter Marcia Ocampo [facility] 1.2.840.114 350.1.13.10 4.2.7.2.686 [id number] [facility] 2023-09-25 10:31:00 2023-09-26 02:10:00 Anesthesia Event Sachin Garcia, [facility] 1.2.840.114 350.1.13.10 4.2.7.2.686 [id number] [facility] 2023-09-24 12:15:00 2023-09-24 12:30:00 Duplicating Machine Mechanic Visit Pob, Adc Lab Main Marcia Ocampo [facility] PROFESS[facility] 1.2.840.114 350.1.13.10 4.2.7.2.686 [id number] [facility] 2023-09-24 12:15:00 2023-09-24 12:15:00 Outpatient R DAMARIS MARCIA [facility] [id number] [facility] 2023-09-20 14:45:00 2023-09-20 15:06:34 Outpatient R DAMARIS [facility] [id number] [facility] 2023-09-20 14:45:00 2023-09-20 15:06:34 Routine Visit Ocampo [facility] 1.2.840.114 350.1.13.10 4.2.7.2.686 [id number] 134 [id number] [facility] 2023-09-20 00:00:00 2023-09-20 00:00:00 Orders Only Doctor Unassigned, [place] [facility] 1.2840.114 350.1.13.10 4.2.7.2.686 [id number] [facility] 2023-09-16 09:30:00 2023-09-16 09:30:00 Outpatient R [facility] [id number] [facility] 2023-09-13 11:30:00 2023-09-13 12:27:12 Duplicating Machine Mechanic Visit Lab, Ang - [facility] 1.20.114 350.1.13.10 4.2.7.2.686 [id number] [facility] 2023-09-13 11:30:00 2023-09-13 11:30:00 Outpatient R DAMARIS [facility] [id number] [facility] 2023-09-13 10:30:00 2023-09-13 10:44:17 Routine Visit Damaris [facility] 1.2840.114 350.1.13.10 4.2.7.2.686 [id number] [facility] 2023-09-13 00:00:00 2023-09-13 00:00:00 Orders Only Doctor Unassigned, [place] [facility] 1.2840.114 350.1.13.10 4.2.7.2.686 [id number] [facility] 2023-09-12 14:45:00 2023-09-12 14:51:15 Outpatient P CONNER DKButch [facility] [id number] [facility] 2023-09-12 14:45:00 2023-09-12 14:51:15 Duplicating Machine Mechanic Visit Ultrasound, Joslyn PrietoDkbutch Ikstacia [facility] FOOTBALL SCOUT [facility] MAT[facility]NAL [facility]ILD [facility] 1.2.840.114 350.1.13.10 4.2.7.2.686 [id number] [facility] 2023-09-06 15:15:00 2023-09-06 15:15:00 Outpatient R MARCIA OCAMPO [facility] [id number] [facility] 2023-09-06 00:00:00 2023-09-06 00:00:00 Telephone Damaris Marcia [facility] 1.20.114 350.1.13.10 4.2.7.2.686 [id number] 134 [id number] [facility] 2023-08-23 13:15:00 2023-08-23 13:20:59 Outpatient R MARCIA OCAMPO [facility] [id number] [facility] 2023-08-23 13:15:00 2023-08-23 13:20:59 Routine Visit Damaris Marcia [facility] 1.2.840.114 350.1.13.10 4.2.7.2.686 [id number] 134 [id number] [facility] 2023-08-09 12:45:00 2023-08-09 12:48:32 Routine Visit Damaris Marcia [facility] 1.2.840.114 350.1.13.10 4.2.7.2.686 [id number] [facility] 2023-08-09 09:30:00 2023-08-09 09:53:53 Outpatient P LEONA PRIETO [facility] [id number] [facility] 2023-08-09 09:30:00 2023-08-09 09:53:53 Duplicating Machine Mechanic Visit Ultrasound, Joslyn Leona Prieto Leegisatish [facility] FO[facility]BALL SCOUT [facility] 1..840.114 350.1.13.10 4.2.7.2.686 [id number] [facility] 2023-08-08 10:45:00 2023-08-08 11:22:36 Outpatient R DAMARIS MARCIA [facility] [id number] [facility] 2023-08-08 10:45:00 2023-08-08 11:00:00 Duplicating Machine Mechanic Visit Lab, Juan Carlos Ocampo [facility]LEY [facility] OFF[facility] 1..840.114 350.1.13.10 4.2.7.2.686 [id number] [facility] 2023-07-22 09:15:00 2023-07-22 09:15:00 Outpatient R [facility] [id number] [facility] 2023-07-19 11:15:00 2023-07-19 11:25:44 Outpatient R OCAMPOMARCIA [facility] [id number] [facility] 2023-07-19 11:15:00 2023-07-19 11:25:44 Routine Visit Damaris Marcia [facility] 1..840.114 350.1.13.10 4.2.7.2.686 [id number] [facility] 2023-07-10 00:00:00 2023-07-10 00:00:00 Outpatient GC_GCBZW_Ka diradhaa_S PRIV [facility] [id number] [facility] 2023-07-09 00:00:00 2023-07-09 00:00:00 Telephone Damaris [facility] 1.2.840.114 350.1.13.10 4.2.7.2.686 [id number] [facility] 2023-06-17 09:16:42 2023-06-17 09:16:[address] [facility] [id number] John Beckman 2023-06-14 11:30:00 2023-06-14 11:40:45 Outpatient R MARCIA OCAMPO [facility] [id number] [facility] 2023-06-14 11:30:00 2023-06-14 11:40:45 Routine Visit Damaris [facility] 1.2.840.114 350.1.13.10 4.2.7.2.686 [id number] [facility] 2023-05-29 10:45:00 2023-05-29 12:00:00 Duplicating Machine Mechanic Visit Ultrasound, Marine Arciniega [facility] FO[facility] SCOUT [facility] 1.2.840.114 350.1.13.10 4.2.7.2.686 [id number] [facility] 2023-05-29 10:45:00 2023-05-29 10:45:00 [facility] [id number] [facility] 2023-05-23 00:00:00 2023-05-23 00:00:00 Telephone Damaris Marcia [facility] 1.2.840.114 350.1.13.10 4.2.7.2.686 [id number] 134 [id number] [facility] 2023-05-17 11:15:00 2023-05-17 11:27:00 Outpatient R MARCIA OCAMPO [facility] [id number] [facility] 2023-05-17 11:15:00 2023-05-17 11:27:00 Routine Visit Marcia Ocampo [facility] 1.0.114 350.1.13.10 4.2.7.2.686 [id number] [facility] 2023-05-07 00:00:00 2023-05-07 00:00:00 Telephone Marcia Ocampo [facility] 1.840.114 350.1.13.10 4.2.7.2.686 [id number] [facility] 2023-05-06 21:13:00 2023-05-06 22:09:00 Emergency X ATUL LEAL [facility] [id number] [facility] 2023-05-06 21:13:00 2023-05-06 22:09:00 Emergency Atul Leal [facility] 1.0.114 350.1.13.10 4.2.7.2.686 [id number] [facility] 2023-05-06 07:30:00 2023-05-06 07:36:11 Outpatient R DAMARIS [facility] [id number] [facility] 2023-05-06 07:30:00 2023-05-06 07:36:11 Duplicating Machine Mechanic Visit Lab, Juan Carlos - Martell Diana [facility] BUILD[facility] 1.114 350.1.13.10 4.2.7.2.686 [id number] [facility] 2023-04-30 07:30:00 2023-04-30 07:30:00 Outpatient R [facility] [id number] [facility] 2023-04-21 00:00:00 2023-04-21 00:00:00 Nurse Triage Marely Ly [facility] 1..114 350.1.13.10 4.2.7.2.686 [id number] [facility] 2023-04-19 11:00:00 2023-04-19 11:06:57 Routine Visit Marcia Ocampo [facility] 1..114 350.1.13.10 4.2.7.2.686 [id number] [facility] 2023-04-19 11:00:00 2023-04-19 11:06:57 Outpatient R DAMARIS [facility] [id number] [facility] 2023-04-01 00:00:00 2023-04-01 00:00:00 Telephone Damaris [facility] 1..114 350.1.13.10 4.2.7.2.686 [id number] [facility] 2023-03-29 14:00:00 2023-03-29 14:47:28 Nurse Visit Nurse, [facility] 1..114 350.1.13.10 4.2.7.2.686 [id number] 134 [id number] [facility] 2023-03-29 14:00:00 2023-03-29 14:47:28 Outpatient R DAMARIS [facility] [id number] [facility] 2023-03-29 00:00:00 2023-03-29 00:00:00 Telephone Leia Everett [facility] 1..114 350.1.13.10 4.2.7.2.686 [id number] 134 [id number] [facility] 2023-03-27 13:00:00 2023-03-27 13:00:00 Duplicating Machine Mechanic Visit Lab, Juan Carlos Ocampo [facility] 1.84.114 350.1.13.10 4.2.7.2.686 [id number] [facility] 2023-03-27 13:00:00 2023-03-27 11:28:09 Outpatient R MARCIA OCAMPO [facility] [id number] [facility] 2023-03-27 11:00:00 2023-03-27 11:00:00 Outpatient R [facility] [id number] [facility] 2023-03-26 08:00:00 2023-03-26 10:57:52 Outpatient R MARCIA OCAMPO [facility] [id number] [facility] 2023-03-26 08:00:00 2023-03-26 10:57:52 Duplicating Machine Mechanic Visit Lab, Juan Carlos - Juan A Ocampo [facility] 1..840.114 350.1.13.10 4.2.7.2.686 [id number] [facility] 2023-03-26 00:00:00 2023-03-26 00:00:00 Case Management Ocampo [facility] 1..840.114 350.1.13.10 4.2.7.2.686 [id number] [facility] 2023-03-26 00:00:00 2023-03-26 00:00:00 Telephone Damaris [facility] 1.840.114 350.1.13.10 4.2.7.2.686 [id number] 134 [id number] [facility] 2023-03-25 00:00:00 2023-03-25 00:00:00 Telephone Damaris [facility] 1..840.114 350.1.13.10 4.2.7.2.686 [id number] [facility] 2023-03-25 00:00:00 2023-03-25 00:00:00 Telephone Ocampo [facility] 1.2.84.114 350.1.13.10 4.2.7.2.686 [id number] 134 [id number] [facility] 2023-03-23 00:00:00 2023-03-23 00:00:00 Case Management OcampoMarcia [facility] PROFESSIO NAL BUILDING 1.84.114 350.1.13.10 4.2.7.2.686 [id number] 134 [id number] [facility] 2023-03-22 10:45:00 2023-03-22 11:00:00 Duplicating Machine Mechanic Visit Lab, Ang - [facility] 1.84.114 350.1.13.10 4.2.7.2.686 [id number] [facility] 2023-03-22 09:00:00 2023-03-22 09:34:31 Outpatient R MARCIA OCAMPO [facility] [id number] [facility] 2023-03-22 09:00:00 2023-03-22 09:34:31 Initial Visit Marcia Ocampo [facility] 1.84.114 350.1.13.10 4.2.7.2.686 [id number] [facility] 2023-03-22 00:00:00 2023-03-22 00:00:00 Orders Only Doctor Unassigned, [place] [facility] 1.84.114 350.1.13.10 4.2.7.2.686 [id number] [facility] 2023-03-06 21:58:00 2023-03-06 23:40:00 Emergency X RAMIREZ SANCHEZ [facility] E[facility] [id number] [facility] 2023-03-06 21:58:00 2023-03-06 23:40:00 Emergency Ramirez Sanchez [facility] 1.2.840.114 350.1.13.10 4.2.7.2.686 [id number] [facility] 2023-03-06 13:00:00 2023-03-06 13:00:00 Outpatient R EDITA OATES [facility] [id number] [facility] 2022-12-20 14:30:00 2022-12-20 15:15:47 Outpatient R EDITA OATES [facility] [id number] [facility] 2022-12-20 14:30:00 2022-12-20 15:15:47 Office Visit Edita Oates [facility] FO[facility] SCOUT [facility] 1.2.840.114 350.1.13.10 4.2.7.2.686 [id number] [facility] 2022-12-20 00:00:00 2022-12-20 00:00:00 Orders Only Doctor Unassigned, [place] [facility] 1.840.114 350.1.13.10 4.2.7.2.686 [id number] [facility] 2022-12-14 09:15:00 2022-12-14 09:15:00 Outpatient SURJIT ARTEAGA [facility] [id number] [facility] 2022-07-18 13:00:00 2022-07-18 13:45:54 Outpatient R SURJIT RICE [facility] [id number] [facility] 2022-07-18 13:00:00 2022-07-18 13:45:54 Office Visit Surjit Rice [facility] SCOUT [facility] MATERNAL & CHILD [facility] 1.2.840.114 350.1.13.10 4.2.7.2.686 [id number] [facility] 2021-12-14 08:45:00 2021-12-14 10:01:04 Outpatient R BUZZ BACKCHAYA [facility] [id number] [facility] 2021-12-14 08:45:00 2021-12-14 10:01:04 Office Visit Back, German Griffith [facility] FO[facility] SCOUT [facility] & CHILD [facility] 1.2.840.114 350.1.13.10 4.2.7.2.686 [id number] [facility] 2021-12-14 08:45:00 2021-12-14 10:01:04 Outpatient Nacho BUZZ BACKCHAYA [facility] [id number] [facility] 2021-12-14 00:00:00 2021-12-14 00:00:00 Orders Only Doctor Unassigned, [place] [facility] 1.2.840.114 350.1.13.10 4.2.7.2.686 [id number] [facility] 2021-12-12 09:30:00 2021-12-12 09:30:00 Outpatient Nacho PUENTEE BUZZCHAYA [facility] [id number] [facility] 2021-12-12 09:30:00 2021-12-12 09:30:00 Outpatient Nacho PUENTEEGERMAN [facility] [id number] [facility] 2021-12-12 09:30:00 2021-12-12 09:30:00 Outpatient GERMAN ALEXANDRE [facility] [id number] [facility] 2021-08-08 09:30:00 2021-08-08 09:30:00 Outpatient SKYLER YARBROUGH [facility] [id number] [facility] 2021-08-07 14:30:00 2021-08-07 15:15:07 Outpatient SKYLER YARBROUGH [facility] [id number] [facility] 2021-08-07 14:21:07 2021-08-07 15:15:07 Office Visit Skyler Cuellar [facility] & CHILD [facility] 1.2.840.114 350.1.13.10 4.2.7.2.686 [id number] [facility] 2021-08-07 00:00:00 2021-08-07 00:00:00 Orders Only Doctor Unassigned, [place] [facility] 1.2.840.114 350.1.13.10 4.2.7.2.686 [id number] [facility] 2021-07-20 09:30:00 2021-07-20 09:30:00 Outpatient R LORENZO CHEATHAM [facility] [id number] [facility] 2021-07-14 00:00:00 2021-07-14 00:00:00 Telephone Surjit Rice [facility] CHILD [facility] 1.2.840.114 350.1.13.10 4.2.7.2.686 [id number] [facility] 2020-12-08 00:00:00 2020-12-08 00:00:00 Telephone German Back [facility] CHILD [facility] 1.2.840.114 350.1.13.10 4.2.7.2.686 [id number] 2020-12-08 00:00:00 2020-12-08 00:00:00 Telephone German Back [facility] & CHILD [facility] [id number] 350.1.13.10 4.2.7.2.686 [id number] [facility] 2020-12-07 09:16:24 2020-12-07 10:08:04 Office Visit German Back [facility] FOOTBALL SCOUT [facility] & CHILD [facility] 1.2.840.114 350.1.13.10 4.2.7.2.686 [id number] [facility] 2020-12-07 09:00:00 2020-12-07 09:00:00 Outpatient Nacho GERMAN BACK [facility] [id number] [facility] 2020-12-07 00:00:00 2020-12-07 00:00:00 Orders Only Doctor Unassigned, [place] [facility] 1.2840.114 350.1.13.10 4.2.7.2.686 [id number] [facility] 2020-05-02 00:00:00 2020-05-02 00:00:00 Telephone German Back [facility] FOOTB[facility] SCOUT [facility] & CHILD [facility] 1.2840.114 350.1.13.10 4.2.7.2.686 [id number] [facility] 2020-02-12 12:56:01 2020-02-12 13:27:54 Nurse Visit Visit, [facility] Nurse German Back [facility] FOOT[facility] SCOUT [facility] & CHILD [facility] 1..114 350.1.13.10 4.2.7.2.686 [id number] [facility] 2020-02-12 13:00:00 2020-02-12 13:00:00 Outpatient GERMAN ALEXANDRE [facility] [id number] [facility] 2020-02-11 00:00:00 2020-02-11 00:00:00 Telephone German Back [facility] FO[facility] SCOUT [facility] & CHILD [facility] 1.20.114 350.1.13.10 4.2.7.2.686 [id number] [facility] 2020-02-11 00:00:00 2020-02-11 00:00:00 Telephone Surjit Rice [facility] FO[facility] SCOUT [facility]NAL & CHILD [facility] 1.2840.114 350.1.13.10 4.2.7.2.686 [id number] [facility] 2020-02-09 14:00:00 2020-02-09 14:00:00 Outpatient R GERMAN BACK [facility] [id number] [facility] 2020-02-03 13:00:00 2020-02-03 13:00:00 Outpatient R [facility] [id number] [facility] 2019-12-31 00:39:27 2019-12-31 01:01:00 Emergency Monica Sanchez S [facility] 1.2.840.114 350.1.13.10 4.2.7.2.686 [id number] [facility] 2019-10-19 00:00:00 2019-10-19 00:00:00 Telephone German Back [facility] FO[facility] SCOUT [facility] MATERNAL & CHILD [facility] 1.2.840.114 350.1.13.10 4.2.7.2.686 [id number] [facility] 2019-10-16 12:48:54 2019-10-16 14:02:54 Office Visit German Back [facility] FO[facility] SCOUT [facility]NAL & CHILD [facility] 1.2.840.114 350.1.13.10 4.2.7.2.686 [id number] [facility] 2018-02-25 08:45:00 2018-02-25 08:45:00 [place] [facility] [facility] Medicine [id number] [facility] Results Test Description Test Time Test Comments Results Result Co mments Source [facility] [id number] 21:06:00* Test Item Value Reference Range Interpretation Comme nts POCT PREG (test code = 1605) Negative On board controls acceptable with C Line (test code = 3574) Yes POCT PREG LOT # (test code = 3575) POCT PREG TEST DATE ( test code = 3576) [facility] IMMUNE [id number] 15:17:58* Test Item Value Reference Range Interpretation Comme nts RHIG CANDIDATE? (test code = 5188) No- see comment Patient is not a candidate for RhIg- Patient is Rh Positive.Performed at [facility] Laboratory Services - [facility] Blood [id number] [place] [id number] Free: [phone] No. [id number] [facility] with [id number] 11:15:54* Test Item Value Reference Range Interpretation [...] 34.7 g/dL 31.6-35.1 RDW-SD (test code = 75225-6) 42.5 fL 39.0-49.9 RDW-CV (test code = 788-0) 13.1 % 12.0-15.5 PLT (test code = 777-3) 174 See_Comment [Automated message] The system which generated this result transmitted reference range: 166 - 358 10*3/?L. The reference range was not used to interpret this result as normal/abnormal. MPV (test code = 67726-1) 11.3 fL 9.5-12.9 NRBC/100 WBC (test code = 5620624301) 0.0 See_Comment [Automated message] The system which generated this result transmitted reference range: 0.0 - 10.0 /100 WBCs. The reference range was not used to interpret this result as normal/abnormal. NRBC x10^3 (test code = 6674026549) See_Comment [Automated message] The system which generated this result transmitted reference range: 10*3/?L. The reference range was not used to interpret this result as normal/abnormal. GRAN MAT (NEUT) % (test code = 770-8) 86.4 % IMM GRAN % (test code = 0913230320) 0.60 % LYMPH % (test code = 736-9) 6.9 % MONO % (test code = 5905-5) 5.1 % EOS % (test code = 713-8) 0.8 % BASO % (test code = 706-2) 0.2 % GRAN MAT x10^3(ANC) (test code = 3938004200) 12.14 10*3/uL 1.88-7.09 H IMM GRAN x10^3 (test code = 2637302549) 0.08 10*3/uL 0.00-0.06 H LYMPH x10^3 (test code = 731-0) 0.97 10*3/uL 1.32-3.29 L MONO x10^3 (test code = 742-7) 0.71 10*3/uL 0.33-0.92 EOS x10^3 (test code = 711-2) 0.11 10*3/uL 0.03-0.39 BASO x10^3 (test code = 704-7) 0.03 10*3/uL 0.01-0.07 Lab Interpretation (test code = 91034-2) Abnormal [facility] GLUCOSE (AUTOMATED)2023-09-26 03:26:13* Test Item Value Reference Range Interpretation Comme nts POCT GLU (test code = 4486499518) 86 mg/dL 70-110 Lab Interpretation (test cod e = 16993-6) Normal [facility] GLUCOSE (AUTOMATED)2023-09-26 00:49:14* Test Item Value Reference Range Interpretation Comme nts POCT GLU (test code = 7244112393) 79 mg/dL 70-110 Lab Interpretation (test cod e = 77891-8) Normal [facility]ATED)2023-09-25 19:43:12* Test Item Value Reference Range Interpretation Comme nts POCT GLU (test code = 3489615938) 98 mg/dL 70-110 Lab Interpretation (test cod e = 18375-2) Normal [facility] Neuraxial [id number] 16:25:00 Sachin William MD ? ? 09/25/2023 [...] YANETH sa line ?Guidance with: landmark technique}Epidural/Spinal Opp and/or Catheter: ?Epidural/Spinal Kit: BBraun ?Needle Type: [...] no more heme aspirated. Negative test dose [facility] Neuraxial [id number] 16:25:00 Sachin William MD ? ? 09/25/2023 [...] YANETH sa line ?Guidance with: landmark technique}Epidural/Spinal Opp and/or Catheter: ?Epidural/Spinal Kit: BBraun ?Needle Type: [...] Assessment: patient tolerated procedure well with no complicationsNotes:? DPE. Some blood aspirated at 10 cm catheter depth. . Flushed syringe with 3 ml of saline and pulled catheter to 9 cm. Aspirated with no more heme aspirated. Negative test dose [facility]PO[facility] GLUCOSE (AUTOMATED)2023-09-25 15:04:40* Test Item Value Reference Range Interpretation Comme nts POCT GLU (test code = 1130484807) 116 mg/dL 70-110 H Lab Interpretation (test cod e = 53772-8) Abnormal [facility] CenterType and Screen - ONCE [id number] 15:00:00* Test Item Value Reference Range Interpretation Comme nts ABO & RH (test code = 20) O POSITIVE IAT (test code = 1185) Negative [facility] CenterCbc with [id number] 18:44:22* Test Item Value Reference Range Interpretation Comme nts WBC (test code = 6690-2) 8.10 See_Comment [[employer]ated [employer]] The system which generated this result transmitted reference range: 4.30 - 11.10 10*3/?L. The reference range was not used to interpret this result as normal/abnormal. RBC (test code = 789-8) 3.99 See_Comment [[employer]] The system which generated this result transmitted [...] 34.6 g/dL 31.6-35.1 RDW-SD (test code = 25433-9) 42.4 fL 39.0-49.9 RDW-CV (test code = 788-0) 12.9 % 12.0-15.5 PLT (test code = 777-3) 197 See_Comment [[employer]] The system which generated this result transmitted reference range: 166 - 358 10*3/?L. The reference range was not used to interpret this result as normal/abnormal. MPV (test code = 51674-2) 11.4 fL 9.5-12.9 NRBC/100 WBC (test code = 7097251437) 0.0 See_Comment [Automated me ssage] The system which generated this result transmitted reference range: 0.0 - 10.0 /100 WBCs. The reference range was not used to interpret this result as normal/abnormal. NRBC x10^3 (test code = 3156999657) See_Comment [Automated messa ge] The system which generated this result transmitted reference range: 10*3/?L. The reference range was not used to interpret this result as normal/abnormal. GRAN MAT (NEUT) % (test code = 770-8) 78.2 % IMM GRAN % (test code = 1800358134) 0.50 % LYMPH % (test code = 736-9) 15.3 % MONO % (test code = 5905-5) 4.4 % EOS % (test code = 713-8) 1.2 % BASO % (test code = 706-2) 0.4 % GRAN MAT x10^3(ANC) (test code = 5071754182) 6.33 10*3/uL 1.88-7.09 IMM GRAN x10^3 (test code = 3283601451) 0.04 10*3/uL 0.00-0.06 LYMPH x10^3 (test code = 731-0) 1.24 10*3/uL 1.32-3.29 L MONO x10^3 (test code = 742-7) 0.36 10*3/uL 0.33-0.92 EOS x10^3 (test code = 711-2) 0.10 10*3/uL 0.03-0.39 BASO x10^3 (test code = 704-7) 0.03 10*3/uL 0.01-0.07 Lab Interpretation (test code = 11555-6) Abnormal [facility] with [id number] 18:44:22* Test Item Value Reference Range Interpretation Comme nts WBC (test code = 6690-2) 8.10 See_Comment [Automated messa ge] The system which generated this result transmitted reference range: 4.30 - 11.10 10*3/?L. The reference range was not used to interpret this result as normal/abnormal. RBC (test code = 789-8) 3.99 See_Comment [[employer] ge] The system which generated this result [...] 34.6 g/dL 31.6-35.1 RDW-SD (test code = 06310-1) 42.4 fL 39.0-49.9 RDW-CV (test code = 788-0) 12.9 % 12.0-15.5 PLT (test code = 777-3) 197 See_Comment [[employer] ge] The system which generated this result transmitted reference range: 166 - 358 10*3/?L. The reference range was not used to interpret this result as normal/abnormal. MPV (test code = 15852-4) 11.4 fL 9.5-12.9 NRBC/100 WBC (test code = 8990063647) 0.0 See_Comment [Automated [employer] ssage] The system which generated this result transmitted reference range: 0.0 - 10.0 /100 WBCs. The reference range was not used to interpret this result as normal/abnormal. NRBC x10^3 (test code = 8955532188) See_Comment [[employer] ge] The system which generated this result transmitted reference range: 10*3/?L. The reference range was not used to interpret this result as normal/abnormal. GRAN MAT (NEUT) % (test code = 770-8) 78.2 % IMM GRAN % (test code = 6145436527) 0.50 % LYMPH % (test code = 736-9) 15.3 % MONO % (test code = 5905-5) 4.4 % EOS % (test code = 713-8) 1.2 % BASO % (test code = 706-2) 0.4 % GRAN MAT x10^3(ANC) (test code = 7157892340) 6.33 10*3/uL 1.88-7.09 IMM GRAN x10^3 (test code = 8661653844) 0.04 10*3/uL 0.00-0.06 LYMPH x10^3 (test code = 731-0) 1.24 10*3/uL 1.32-3.29 L MONO x10^3 (test code = 742-7) 0.36 10*3/uL 0.33-0.92 EOS x10^3 (test code = 711-2) 0.10 10*3/uL 0.03-0.39 BASO x10^3 (test code = 704-7) 0.03 10*3/uL 0.01-0.07 Lab Interpretation (test code = 86400-2) Abnormal [facility] with [id number] 20:29:26* Test Item Value Reference Range Interpretation Comme nts WBC (test code = 6690-2) 8.96 See_Comment [[employer] ge] The system which generated this result transmitted reference range: 4.30 - 11.10 10*3/?L. The reference range was not used to interpret this result as normal/abnormal. RBC (test code = 789-8) 4.20 See_Comment [[employer] ge] The system which generated this result [...] 33.9 g/dL 31.6-35.1 RDW-SD (test code = 21632-4) 41.6 fL 39.0-49.9 RDW-CV (test code = 788-0) 12.6 % 12.0-15.5 PLT (test code = 777-3) 181 See_Comment [Automated messa ge] The system which generated this result transmitted reference range: 166 - 358 10*3/?L. The reference range was not used to interpret this result as normal/abnormal. MPV (test code = 84117-2) 11.8 fL 9.5-12.9 NRBC/100 WBC (test code = 4154632045) 0.0 See_Comment [Automated [employer] ssage] The system which generated this result transmitted reference range: 0.0 - 10.0 /100 WBCs. The reference range was not used to interpret this result as normal/abnormal. NRBC x10^3 (test code = 5645260070) See_Comment [Automated messa ge] The system which generated this result transmitted reference range: 10*3/?L. The reference range was not used to interpret this result as normal/abnormal. GRAN MAT (NEUT) % (test code = 770-8) 79.2 % IMM GRAN % (test code = 8465123010) 0.90 % LYMPH % (test code = 736-9) 14.8 % MONO % (test code = 5905-5) 4.2 % EOS % (test code = 713-8) 0.6 % BASO % (test code = 706-2) 0.3 % GRAN MAT x10^3(ANC) (test code = 2974286283) 7.09 10*3/uL 1.88-7.09 IMM GRAN x10^3 (test code = 1031902191) 0.08 10*3/uL 0.00-0.06 H LYMPH x10^3 (test code = 731-0) 1.33 10*3/uL 1.32-3.29 MONO x10^3 (test code = 742-7) 0.38 10*3/uL 0.33-0.92 EOS x10^3 (test code = 711-2) 0.05 10*3/uL 0.03-0.39 BASO x10^3 (test code = 704-7) 0.03 10*3/uL 0.01-0.07 Lab Interpretation (test code = 20139-6) Abnormal [facility] Urinalysis w/o Specific [id number] 16:37:00* Test Item Value Reference Range Interpretation [...] = 3257) N/A Negative - Negati ve [facility] Urinalysis w/o Specific [id number] 19:09:00* Test Item Value Reference Range Interpretation [...] = 3257) N/A Negative - Negati ve [facility] URINALYSIS W/O SPECIFIC [id number] 18:37:00* Test Item Value Reference Range Interpretation [...] = 3257) N/A Negative - Negati ve [facility] URINALYSIS W/O SPECIFIC [id number] 17:15:00* Test Item Value Reference Range Interpretation [...] = 3257) N/A Negative - Negati ve [facility] URINALYSIS W/O SPECIFIC [id number] 16:55:00* Test Item Value Reference Range Interpretation [...] = 3257) Negative [facility] [id number] 16:05:00* Test Item Value Reference Range Interpretation [...] = 3257) N/A Negative - Negati ve [facility] URINALYSIS W/O SPECIFIC [id number] 15:36:00* Test Item Value Reference Range Interpretation [...] = 3257) n/a Negative - Negati ve [facility] CenterGLYCOSYLATED HEMOGLOBIN (A1C)2023-03-27 20:21:55* Test Item Value Reference Range Interpretation Comme nts HGB A1C (test code = 4548-4) 4.8 % 4.0-5.7 ESTEPHANIA (test code = ESTEPHANIA) Reference RangesNormal: <5.7%Prediabetes: 5.7 - 6.4%Diabetes: > 6.5% Lab Interpretation (test code = 29120-9) Normal [facility] URINALYSIS W/O SPECIFIC [id number] 14:01:00* Test Item Value Reference Range Interpretation [...] = 3257) n/a Negative - Negati ve [facility] [id number] 03:07:00* Test Item Value Reference Range Interpretation Comme nts POCT PREG (test code = 1605) Positive On board controls acceptable with C Line (test code = 3574) Yes POCT PREG LOT # (test code = 3575) [id number] POCT PREG TEST DATE ( test code = 3576) 06/14/2024 Lab Interpretation (test cod e = 10503-3) Normal [facility] History and Physical Notes Date/Time [...] Operations: Past Surgical History: Procedure Laterality Date OK FISSURECTOMY INCL SPHINCTEROTOMY WHEN PERFORMED Past Medical History: Diagnosis Date Anemia of mother in , antepartum 01/24/2018 resolved Anxiety Managed by [facility], managing without medication Chlamydia 2010, 2013 treated Depression managed by [facility], ongoing, managing without medication Family history of factor V Leiden mutation 12/03/2017 pt tested negative for Factor V Female infertility denies any issues. 08/04/2018 GDM (gestational diabetes mellitus), class A1 04/19/2023 Gonorrhea 2015 treated History of substance abuse Seizures drug [...] details Marcia Ocampo MD 09/25/2023 9:59 AM [facility] Procedure Notes Date/Time Note Provider Source [...] YANETH saline Guidance with: landmark technique} Epidural/Spinal Opp and/or Catheter: Epidural/Spinal Kit: Misty Needle Type: Tuohy Needle Gauge: 17 G [...] no more heme aspirated. Negative test [facility] 2023-09-25 10:01:52 Procedure(s): INSERT CERVICAL DILATOR Pre-Procedure Diagnose(s): 39 weeks gestation of ; GDM, class A1 Post-Procedure Diagnose(s): 39 weeks gestation of ; GDM, class A1 Duenas bulb inserted in a sterile manner and inflated with 60 cc of normal saline without complications. Patient tolerated the procedure well. Marcia Ocampo MD #[id number] 09/25/2023 10:02 AM [facility] [employer] [facility] Notes Date/Time Note Provider Source 2023-11-13 08:49:28 Spoke with patient, states that she has had boil on left groin, ongoing 6 months, states that she has had it during . Boil is continuously draining yellowish discharge, feels warm to the touch and not healing. Has tried warm compresses with no relief. Patient stated provider is aware of boil, requesting antibiotics. Informed patient that I would notify provider to see if she wants to send in rx or have patient come in. Patient verbalized understanding. Patient specifically requested if abx sent in to not be prescribed clindamycin due to "when she takes it she can taste it all day." Leia Everett RN 11/13/2023 8:55 AM AD ROLLER Leia Everett RN [facility] 2023-11-13 08:13:52 Patient states she has had a boil that keeps draining. She has been putting hot compresses and is requesting an antibiotic. [facility]/pharmacy #[id number] - [place], [place] - [address] AT [facility] YL Flores [facility] 2023-11-01 10:04:03 Spoke with patient. Patient scheduled for nexplanon insertion with Dr. Ocampo 11/06/2023 Ryan Allen RN 11/01/2023 10:04 AM YL Allen RN [facility] 2023-11-01 08:29:28 Patient is calling stating she started period on 10/31. She states Dr. Ocampo told her to call and notify the nurse. She is requesting to get the nexplanon. She will go to [place] if needed. YL Flores [facility] 2023-09-27 10:09:38 Problem: Pain Goal: Control of pain at or below patient's documented comfort goal 09/27/2023 1009 by Lisseth Polanco RN Outcome: Adequate for discharge 09/27/2023 0851 by Lisseth Polanco RN Outcome: Progressing as expected Goal: Reduction in pain sensation 09/27/2023 1009 by Lisseth Polanco RN Outcome: Adequate for discharge 09/27/2023 0851 by Lisseth Polanco RN Outcome: Progressing as expected Problem: Discharge Planning - Goal: Adequate for discharge 09/27/2023 1009 by Lisseth Polanco RN Outcome: Adequate for discharge 09/27/2023 0851 by Lisseth Polanco RN Outcome: Progressing as expected Goal: Mood stable 09/27/2023 1009 by Lisseth Polanco RN Outcome: Adequate for discharge 09/27/2023 0851 by Lisseth Polanco RN Outcome: Progressing as expected Problem: Falls, Risk of Goal: Absence of falls 09/27/2023 1009 by Lisseth Polanco RN Outcome: Adequate for discharge 09/27/2023 0851 by Lisseth Polanco RN Outcome: Progressing as expected YL Polanco RN [facility] 2023-09-27 08:51:16 Problem: Pain Goal: Control of pain at or below patient's documented comfort goal Outcome: Progressing as expected Goal: Reduction in pain sensation Outcome: Progressing as expected Problem: Discharge Planning - Goal: Adequate for discharge Outcome: Progressing as expected Goal: Mood stable Outcome: Progressing as expected Problem: Falls, Risk of Goal: Absence of falls Outcome: Progressing as expected YL [facility] 2023-09-27 01:10:37 Problem: Pain Goal: Control of pain at or below patient's documented comfort goal Outcome: Progressing as expected Goal: Reduction in pain sensation Outcome: Progressing as expected Problem: Discharge Planning - Goal: Adequate for discharge Outcome: Progressing as expected Goal: Mood stable Outcome: Progressing as expected Problem: Falls, Risk of Goal: Absence of falls Outcome: Progressing as expected AD ROLLER Carmelina Landa RN [facility] 2023-09-26 09:54:20 Problem: Pain Goal: Control of pain at or below patient's documented comfort goal Outcome: Progressing as expected Goal: Reduction in pain sensation Outcome: Progressing as expected Problem: Discharge Planning - Goal: Adequate for discharge Outcome: Progressing as expected Goal: Mood stable Outcome: Progressing as expected YL Adamson RN [facility] 2023-09-26 07:06:23 Patient: Artemio Clinton Procedure Summary Date: 09/25/23 Room / Location: Anesthesia Start: 1031 Anesthesia Stop: 09/26/23 0210 Procedure: CENTRAL NEURAXIAL BLOCK Diagnosis: Scheduled Providers: Responsible Provider: Loreta Mccoy MD Anesthesia Type: Epidural ASA Status: 2 Anesthesia Type: Epidural Last vitals BP Temp Pulse Resp SpO2 There were no known notable events for this encounter. Anesthesia Post Evaluation Patient location during evaluation: bedside Patient participation: complete - patient participated Level of consciousness: awake and alert Pain management: satisfactory to patient Airway patency: patent Cardiovascular status: acceptable and blood pressure returned to baseline Respiratory status: acceptable and room air Hydration status: acceptable Comments: Good recovery from neuraxial block Fall precautions given AD ROLLER AN-ANESTHESIOLOGY ANESTHESIOLOGIST [facility] 2023-09-26 00:23:34 Problem: Discharge Planning - Goal: Adequate for discharge Outcome: Progressing as expected Problem: Discharge Planning - Goal: Mood stable Outcome: Progressing as expected YL Jose RN [facility] 2023-09-26 00:22:47 Problem: Intrapartum process (including labor pain) Goal: Absence of or reduction of complications of labor 09/26/202321 by Marisol Jose RN Outcome: Resolved 09/25/20231942 by Marisol Jose RN Outcome: Progressing as expected Goal: Able to cope with pain 09/26/202321 by Marisol Jose RN Outcome: Resolved 09/25/20231942 by Marisol Jose RN Outcome: Progressing as expected Goal: Adequate to move to next level of care 09/26/202321 by Marisol Jose RN Outcome: Resolved 09/25/20231942 by Marisol Jose RN Outcome: Progressing as expected Goal: Reduction in pain sensation 09/26/202321 by Marisol Jose RN Outcome: Resolved 09/25/20231942 by Marisol Jose RN Outcome: Progressing as expected [facility] 2023-09-25 23:43:00 DELIVERY BY SPONTANEOUS VAGINAL DELIVERY Delivery Date: 09/25/2023 Delivery Time: 11:05 PM Delivery Summary Artemio Clinton is a 27 year old female @ 39w0d. complicated with A1DM. 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 The patient was admitted to the Labor & Delivery unit for induction at 39 weeks. Delivery Physician: Marcia Ocampo MD Intrapartum Anesthesia/Analgesia: Epidural Mode of Delivery: Delivery of askew fetus with cephalic presentation Fetus Spontaneous vaginal delivery of head with cephalic position, right occipital anterior. As the head crowned and distended the perineum, no episiotomy was performed. A blue towel was used to protect the perineum as the head crowned and delivered. The other hand was used to exert pressure on the occiput to control the delivery of the head. The perineum was pushed with a towel-draped hand as the head and mouth was delivered over the perineum. The head was allowed to rotate externally to achieve natural body posture. Examination of neck revealed no umbilical cord. The shoulder was delivered by gentle downward traction applied to head and downward traction for the delivery of anterior shoulder. This was followed by upward traction with delivery of posterior shoulder and body. After the delivery of , bulb suction was performed from ororpharynx and nostril with removal of clear amniotic fluid. A normal, female was delivered. The umbilical cord was double clamped, cut and the was handed off the field to the circulating nurse Placenta Placenta was delivered spontaneously while the abdominal hand lifted the uterus cephalad and other hand keeping the umbilical cord slightly taut. Laceration: first degree labial laceration Laceration Repair: Minor - lacerations (perineum, sidewall, labial, vaginal floor and/or periurethral) were closed with continuous sutures. . Fourth Stage Fourth stage of labor was managed by uterine massage with abdominal hand and infusion 30 units of pitocin mixed with intravenous fluid. EBL: see I/O's Complications: None Weight: 2990 g 1 Minute 5 Minute 10 Minute Totals: 9 9 Marcia Ocampo MD 09/26/2023 7:47 AM [facility] 2023-09-25 19:44:09 Problem: Intrapartum process (including labor pain) Goal: Absence of or reduction of complications of labor Outcome: Progressing as expected Goal: Able to cope with pain Outcome: Progressing as expected Goal: Adequate to move to next level of care Outcome: Progressing as expected Goal: Reduction in pain sensation Outcome: Progressing as expected Problem: Pain Goal: Control of pain at or below patient's documented comfort goal Outcome: Progressing as expected Goal: Reduction in pain sensation Outcome: Progressing as expected [facility] 2023-09-25 11:00:52 Name/ MRN / Age / Gender: Artemio Clinton [id number] 27 year old female BMI: Estimated body mass index is 27.88 kg/m? as calculated from the following: Height as of this encounter: 1.702 m (5' 7"). Weight as of this encounter: 80.7 kg (178 lb). Allergies: Patient has no known allergies. Last Vitals: BP Readings from Last 1 Encounters: 09/25/23 113/71 Pulse Readings from Last 1 Encounters: 09/25/23 76 SpO2 Readings from Last 1 Encounters: 09/25/23 97% Date of Surgery: 09/25/2023 Surgeon: * No surgeons listed * Procedure: CENTRAL NEURAXIAL BLOCK OR Location: [place] [facility] OUT OF OR - OR LOCATION Anesthesia Preop Eval (physical exam) Anesthesia Preop: [id number] NPO Status Verified Anesthesia History (-) Hx of anesthetic complications Previous Anesthetics/Airways Cardiovascular Negative Cardiac ROS Pulmonary Negative Pulmonary ROS Neuro/Musculoskeletal Negative Neuro/Musculosketal ROS GI/Hepatic Negative GI/Hepatic ROS Hematology Negative Hematology ROS Comments: CBCWBC (10*3/?L) Date Value 09/24/2023 8.10 RBC (10*6/?L) Date Value 09/24/2023 3.99 PLT (10*3/?L) Date Value 09/24/2023 197 HGB (g/dL) Date Value 09/24/2023 12.6 HCT (%) Date Value 09/24/2023 36.4 Renal Negative Renal ROS Skin Negative Skin ROS (+) Current IV access and 20g Endo/Other Negative Endo/Other ROS Other FOOTBALL SCOUT Negative FOOTBALL SCOUT ROS (-) S/P BTL P: 1031 Pediatric Preoperative Medication Instructions Continue taking all prescribed medications except: SILVANA inhibitors, ARBs, diuretics, all oral diabetes medications Anticoagulant Therapy: Defer to surgeons Insulin: Take 1/2 dose the night prior to surgery. Hold on DOS. Phentermine: Alert [facility] anesthesiologist SGLT2 Inhibitors: "gliflozins" to be held for 3 days prior to elective surgeries GLP1 Agonosit: stop 7 days prior to surgery MAC Cases: Continue taking SILVANA inhibitors and ARBs ASA Classification ASA: 2 Current Medications: No outpatient medications have been marked as taking for the 09/25/23 encounter (Hospital Encounter). Previous Surgeries: Past Surgical History: Procedure Laterality Date OK FISSURECTOMY INCL SPHINCTEROTOMY WHEN PERFORMED Anesthesia Physical Exam General no apparent distress and alert and oriented x 3 Neuro/Psych neurological Nonfocal Dental no notable dental hx Abdominal GI exam normal (+) abdomen soft and benign Airway Mallampati score:II TM distance:> 5 cm Neck ROM: full Mouth opening:normal Extremity Normal extremity Pulmonary pulmonary exam normal and bilateral clear to auscultation Other Cardiovascular cardiovascular exam normalRhythm:Regular Rate: Normal Anesthesia Plan ASA Status: 2 Plan discussed during pre-op evaluation: General, Epidural and Spinal Anesthetic plan on DOS: Epidural Plan to include: IV induction Anesthesia plan discussed with: patient or c s s representative Post-Operative Analgesia: routine analgesia & antiemetics Recovery Plan: LDR Additional comments: AD ROLLER AN-ANESTHESIOLOGY ANESTHESIOLOGIST [facility] 2023-09-25 03:40:00 Pt called to explained that her induction is being postponed and to expect a phone call later for her to come in. Pt verbalized understanding. AD ROLLER Brook Sanchez RN [facility] 2023-09-24 12:15:00 Images from the original note were not included. Venipuncture collection performed by clean technique on the left hand. Total of 1 attempts were made. Slight pressure and a bandage/dressing were applied to the site(s). The patient experienced no complications. The following specimens were processed according to instructions and sent to [facility] laboratories per lab order on 09/24/2023 : LT BLUE SST 2 RED 1 LAV 1 PPT DK GREEN (LiHep) DK GREEN (SodH) JAMIL DK BLUE (K2) DK BLUE (S) ACD Blood Culture NIPT/NTD [facility] 2023-09-24 12:15:00 All winn do not have to draw TS. YL Martinez [facility] 2023-09-24 12:15:00 Addended by: ISAC MARTINEZ on: 09/24/2023 02:28 PM Modules accepted: Orders [facility] 2023-09-20 14:45:00 Age: [age] year old GA: 38w2d Doing well without concerns Irregular contractions -SVE fingertip/thick/high -Labor precautions given History of depression/anxiety - was on Sertraline about 5 to 6 years ago. Currently not on any medication -EPDS 0. Denies SI/HI today. -We will continue to monitor. 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 Venipuncture collection performed by clean technique on the right anticubitus. Total of 1 attempts were made. Slight pressure and a bandage/dressing were applied to the site(s). The patient experienced no complications. The following specimens were processed according to instructions and sent to [facility] laboratories per lab order on 09/13/2023 : LT BLUE SST RED LAV 1 PPT DK GREEN (LiHep) DK GREEN (SodH) JAMIL DK BLUE (K2) DK BLUE (S) ACD Blood Culture NIPT/NTD [facility] 2023-09-13 10:30:00 Age: [age] year old GA: 37w2d Doing well without concerns Had COVID infection. Took Paxlovid. Feels better now History of depression/anxiety - was on Sertraline about 5 to 6 years ago. Currently not on any medication -EPDS 0. Denies SI/HI today. -We will continue to monitor. 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 Ocampo talked about at your 36 week talk: 1. Go to Labor and Delivery when your contractions are 5-7 minutes apart and you have been able to time them for an hour. If you live more than 30 minutes from the hospital, then go when they are 10 minutes apart and you have been able to time them for an hour. 2. BUT, there are 4 reasons to go to Labor and Delivery REGARDLESS of what else is happening, whether you are roberto or not: 1. If your water breaks - - - it may be a gush or a constant trickle. If you are not sure, always come in to be checked. 2. Bleeding like your period. 3. If your baby's movements are less than 10 in an hour. If you are concerned this might be the case, drink a tall glass of cold fluids, lay down on your side on the couch or your bed and see how long it takes to note 10 movements - if less than 10, this needs to be evaluated immediately. 4. Contractions or Pain that is continuous. Normal labor contractions last only 45 seconds - 1 minute. Cephalic presentation GC/CT and GBS obtained, CBC ordered Zika precautions reviewed Contraception PP: We will discuss at next visit Delivery consent signed today RTC in 1 wk for PN [facility] 2023-09-06 15:36:01 Paxlovid 300 mg x 5 day sent in to pharmacy on file per Dr. Ocampo. Patient notified of rx sent in. Advised patient of importance of staying hydrated, taking otc safe medications for symptoms, monitoring FKC, and to monitor symptoms. Strong ER precautions given. Patient verbalized understanding. Leia Everett RN 09/06/2023 3:38 PM AD ROLLER Leia Everett RN [facility] 2023-09-06 11:02:38 Patient states that she tested positive for covid yesterday at [facility], c/o headache, sore throat, runny nose, body aches. Had elevated HR 140, HR 160 (at hospital yesterday). Patient states that she has had good movement today, did notice slightly less movement yesterday prior to going to hospital. Was given IV fluids at hospital. Denies having any vaginal bleeding. USN appt was rescheduled for 09/12/22. Advised patient I would talk to provider regarding appt. Leia Everett RN 09/06/2023 11:10 AM [facility] 2023-09-06 10:39:31 Pt calling says she felt sick and went to er yesterday tested positive for covid has appt later today AD ROLLER Altagracia Rome [facility] 2023-05-23 09:40:44 Formatting of this n ote might be different from the original. 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 Leia Everett RN 05/23/2023 9:40 AM Leia Everett RN [facility] 2023-05-23 09:34:23 Formatting of this n ote might be different from the original. Patient is needing a dental clearance for a filling. Her appointment is scheduled on 06/06/2023. She will be getting it done at [facility] in [place], she did not have the fax number. She will either like it faxed or she can pick it up. Adele Flores [facility] 2023-05-17 11:15:00 Formatting of this n ote might be different from the original. Images from the original note were not included. Age: [age] year old GA: 20w2d Left buttock abscess - First present to [place] [facility] on 04/21/23 and was prescribed Clindamycin. She completed clindamycin as prescribed. She re-presented to [facility] ER on 05/06/23 for the same problem. Patient had I&D in ER and was prescribed Keflex. States that she completed Keflex 3 days ago. - Reports that the area is painful again the next day after she took her last Keflex. - Have not done warm compresses yet. 3 cm lesion noted on the left buttock. No erythema. + induration. No fluctuant. Advise to avoid tight clothing and also to do warm compresses 3 times a day. If symptoms do not improve in 24 hours, patient can start Bactrim. History of depression/anxiety - was on Sertraline about 5 to 6 years ago. Currently not on any medication -EPDS 0. Denies SI/HI today. -We will continue to monitor. History of drug use in the past -History of intentional overdose on synthetic marijuana in 2018 -Has stopped using marijuana since 03/24/23 -UDS sent today Family history of factor V Leiden mutation -Patient tested negative for factor V Leiden mutation A1DM -Hemoglobin A1c 4.8 on 03/27/2023 -Glucose log reviewed, controlled -Continue diabetic diet HSV II IgG positive -Reports history of oral herpes. Denies hx of genital herpes. - Discussed prodromal symptoms and lesions - discussed starting acyclovir suppression at 35-36 wks. patient agree Maternal serum AFP neg Anatomy scan scheduled for 05/29/23 Follow-up in 4 weeks for visit [facility] 2023-05-07 12:49:05 Formatting of this n ote might be different from the original. Patient notified of lab results. 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 Advised patient Dr. Ocampo will go over in more detail at visit and answer any additional questions. Patient verbalized understanding. Leia Everett RN 05/07/2023 12:49 PM Leia Everett RN [facility] 2023-05-07 11:55:30 Formatting of this n ote might be different from the original. Pt would like a nurse to call her back and go over her labs with her. Jaja Fay [facility] 2023-05-06 21:59:11 Formatting of this n ote might be different from the original. Pt given printed and verbal discharge instructions regarding cutaneous abscess of buttock, encouraged hydration, 1 Prescriptions sent. Discussed antibiotic therapy and to take until all completed unless adverse reaction occurs - if occurs, discontinue medication and follow up with pcp/seek medical attention Pt verbalized understanding of instructions, pt awake alert oriented, resp reg unlabored, skin w/d, color appropriate for race, moves all ext well,pt encouraged to follow up with pcp Advised to seek medical attention for new/prolonged/worsening of symptoms, Symptoms improved. Awake, alert oriented, resp reg unlabored, skin w/d, pt leaving amb with steady gait, in no apparent distress, Nabila Andre RN [facility] 2023-05-06 20:50:00 Formatting of this n ote might be different from the original. Patient states: "I have this abscess 2 or 3 months ago on my left lower buttock, in between the butt cheeks. I was seen before in , prescribed with antibiotic, it shrank but when I completed my antibiotics on 05/02/23 it started to become bigger. I feel like it's a staph infection now because I have history of staph infections before, I just want it lanced this time." PMHx: Gestational DM, 18 weeks LMP 12/27/2022 Tiffanie Horton RN [facility] 2023-05-06 20:47:00 Associated Order(s): Incision and Drainage Images from the original note were not included. 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 No systemic symptoms. Took clindamycin preceding this visit. Requesting I&D. Past Medical History/Immunizations: Past Medical History: Diagnosis Date Anemia of mother in , antepartum 01/24/2018 resolved Anxiety Managed by [facility], managing without medication Chlamydia 2013 treated Depression managed by [facility], ongoing, managing without medication Family history of factor V Leiden mutation 12/03/2017 pt tested negative for Factor V Female infertility denies any issues. 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 Vaping Use Never used Alcohol Use Not Currently. Comments: qquit when fund out was Drug Use Yes; Marijuana. Comments: daily Sexual Activity Sexually active; Partners: Male; Control/Protection: None. Past Surgical History: Past Surgical History: Procedure Laterality Date [place] FISSURECTOMY INCL SPHINCTEROTOMY WHEN PERFORMED Review of Systems: Review of Systems Constitutional: Negative for fever. Gastrointestinal: Negative for abdominal pain, nausea and vomiting. Genitourinary: Negative for vaginal bleeding. Skin: Positive for color change. Physical Exam: ED Triage Vitals [05/06/232049] Weight 68.9 kg (152 lb) Actual or estimated Estimated by patient/family report Height 1.702 m (5' 7") BP 115/70 Pulse 93 Resp 16 Temp 37.3 ?C (99.1 ?F) Temp source Oral SpO2 96 % Measured on Room air Physical Exam Vitals and nursing note reviewed. Constitutional: General: She is not in acute distress. Appearance: She is well-developed. She is not diaphoretic. HENT: Head: Normocephalic and atraumatic. Right Ear: External ear normal. Left Ear: External ear normal. Nose: Nose normal. Eyes: General: No scleral icterus. Conjunctiva/sclera: Conjunctivae normal. Pupils: Pupils are equal, round, and reactive to light. Cardiovascular: Rate and Rhythm: Normal rate and regular rhythm. Heart sounds: Normal heart sounds. Pulmonary: Effort: Pulmonary effort is normal. Breath sounds: Normal breath sounds. Abdominal: General: Bowel sounds are normal. Palpations: Abdomen is soft. Tenderness: There is no abdominal tenderness. Musculoskeletal: General: Normal range of motion. Cervical back: Normal range of motion and neck supple. Skin: General: Skin is warm and dry. Findings: Abscess present. Comments: 3cm pointing abscess. Left buttock at crease. Neurological: Mental Status: She is alert and oriented to person, place, and time. Cranial Nerves: No cranial nerve deficit. Deep Tendon Reflexes: Reflexes are normal and symmetric. Psychiatric: Behavior: Behavior normal. Thought Content: Thought content normal. Radiology: No orders to display Lab Results: Lab Results - No data to display EKG: If EKG completed, see Procedure Note. Orders and Treatments: Orders Placed This Encounter Procedures Incision and Drainage Orders Placed This Encounter Medications cephALEXin (KEFLEX) 500 mg capsule First Provider Eval: ED Events Date/Time Event User Comments 05/06/232143 Medical Screening Begins ATUL LEAL -- 05/06/232143 First Provider Evaluation ATUL LEAL -- No notes of EC Admission Criteria type on file. ED COURSE Diagnosis/Impression as of 05/06/232154 Cutaneous abscess of buttock Procedures: Incision and Drainage Date/Time: 05/06/2023 9:54 PM Performed by: Atul Leal DO Authorized by: Atul Leal DO Consent: Consent obtained: Verbal Consent given by: Patient Risks, benefits, and alternatives were discussed: yes Risks discussed: Incomplete drainage, bleeding, pain and infection Alternatives discussed: No treatment and delayed treatment [place] protocol: Immediately prior to procedure, a time out was called: yes Patient identity confirmed: Arm band Location: Type: Abscess Location: Lower extremity Lower extremity location: Buttock Buttock location: L buttock Pre-procedure details: Skin preparation: Hibiclens Anesthesia: Anesthesia method: Local infiltration Local anesthetic: Lidocaine 1% WITH epi Procedure type: Complexity: Complex Procedure details: Needle aspiration: no Incision types: Stab incision Incision depth: Subcutaneous Wound management: Probed and deloculated and irrigated with saline Drainage: Purulent and serous Drainage amount: Scant Wound treatment: Wound left open Packing materials: None Post-procedure details: Procedure completion: Tolerated well, no immediate complications MDM: Medical Decision Making Artemio Clinton is a 27 year old female with cutaneous abscess. I&D. Keflex rx. No bathing. Showering only. Follow up with PCP or OB for reevaluation. Problems Addressed: Cutaneous abscess of buttock: acute illness or injury Risk Prescription drug management. Flowsheet Documentation: Scoring Tools: No data recorded Disposition/Condition: ED Disposition ED Disposition Disch - Home Condition Stable Comment -- Discharge Medications: Patient's Medications START taking these medications CEPHALEXIN (KEFLEX) 500 MG CAPSULE Take 1 capsule by mouth in the morning and 1 capsule at noon and 1 capsule in the evening. Do all this for 7 days. CONTINUE taking these medications which have NOT CHANGED ALCOHOL SWABS (ALCOHOL PADS) PADM Apply to area(s) 4 (four) times daily. BLOOD SUGAR DIAGNOSTIC (BLOOD GLUCOSE TEST) STRIP Check gluocose 4 times a day BLOOD-GLUCOSE METER KIT Check glucose 4 times a day. DOXYLAMINE (UNISOM, DOXYLAMINE,) 25 MG TABLET Take 1 tablet by mouth at bedtime as needed for Nausea and Vomiting (N/V). LANCETS MISC Check glucose 4 times a day METOCLOPRAMIDE HCL 10 MG TABLET Take 1 tablet by mouth every 6 (six) hours as needed for Nausea and Vomiting (N/V). PNV NO.95/FERROUS FUM/FOLIC AC ( ORAL) Take by mouth. PYRIDOXINE, VITAMIN B-6, (VITAMIN B-6) 25 MG TABLET Take 1 tablet by mouth every 6 (six) hours as needed for Nausea and Vomiting (N/V). START taking Modified Medications as Prescribed No medications on file STOP taking these medications No medications on file Follow-up: [facility] 2023-05-06 07:30:00 Formatting of this n ote is different from the original. Images from the original note were not included. Venipuncture collection performed by clean technique on the back of right hand. Total of 1 attempts were made. Slight pressure and a bandage/dressing were applied to the site(s). The patient experienced no complications. The following specimens were processed according to instructions and sent to [facility] laboratories per lab order on 05/06/2023 : LT BLUE SST 2 RED LAV PPT DK GREEN (LiHep) DK GREEN (SodH) JAMIL DK BLUE (K2) DK BLUE (S) ACD Blood Culture NIPT/NTD [facility] 2023-04-21 14:49:00 Formatting of this n ote might be different from the original. Regarding: Pt wants to know if she can take pepto bismol ----- Message from Terrell Oscar sent at 04/21/2023 2:48 PM CDT ----- Artemio Clinton is a 27 year old female Pt wants to know if she can take Pepto bismol for a stomach ache. Marely Ly RN [facility] 2023-04-21 14:49:00 Formatting of this n ote might be different from the original. [facility] Artemio Clinton is a 27 year old female Call back to patient, "my stomach is hurting bad". Patient states she feel like she needs to have a BM and has drank about 16 oz every 1.5 hours today. RN advised not to over hydrate. RN advised can take Tums, Mylanta or Maalox and if feels like she can't have a BM, can take milk of magnesia or Colace. Advised if pain is constant for 2 hours, she will need to go to the ER. RN gave ER warnings for abdominal pain, vaginal bleeding, tissue, urinary symptoms. Triage Assessment Last Clinic Visit: 04/19/23 visit, GDM Primary Symptom: upper abdominal pain Onset / Duration: 1 hour Location / Description: constant pain in the upper abdomen right under ribs "and feels like I have to go to the bathroom and knot in my stomach" Pain / Severity: 4/10 Associated Symptoms: denies nausea Fever / Method: denies Hydration: drank some coffee X 2 cups(which is not usual for patient) "and a lot of water", 16 oz every 1.5 hours, urinates X every 15 minutes- clear yellow urine BM this am and yesterday Treatment so far: none Effect on ADL's: some change Gestational Weeks: 16 4/ weeks Rupture Membranes: denies Bleeding / Spotting / Pads per hour: denies Movement: N/A Para / : EDC: 10/02/23 per [place] 03/22/23 Pre-existing condition / Immunocompromised: GDM Reason for Disposition Mild abdominal pain Protocols used: - Abdominal Pain Less Than 20 Weeks [id number] EM Soto, RN [facility] Access Center Triage Nurse T [facility] 2023-04-19 11:00:00 Formatting of this n ote might be different from the original. Images from the original note were not included. Age: [age] year old GA: 16w2d Doing well without concerns today History of depression/anxiety - was on Sertraline about 5 to 6 years ago. Currently not on any medication -EPDS 0. Denies SI/HI today. -We will continue to monitor. History of drug use in the past -History of intentional overdose on synthetic marijuana in 2018 -Has stopped using marijuana since 03/24/23 -Will get UDS at next visit Family history of factor V Leiden mutation -Patient tested negative for factor V Leiden mutation A1DM -Hemoglobin A1c 4.8 on 03/27/2023 -Glucose log reviewed, controlled -Continue diabetic diet New OB labs within normal limits Panorama low risk female Horizon negative Maternal serum AFP ordered Anatomy scan ordered Follow-up in 4 weeks for visit [facility] 2023-04-01 14:27:08 Formatting of this n ote might be different from the original. Fax received from [employer] requesting a prior authorization for the test strips. Spoke with pharmacy and confirmed all the supplies have been picked up at no charge, PA not required. Linsey Artis MA [facility] 2023-03-29 16:16:43 Formatting of this n ote might be different from the original. Prema results received via fax. Panorama- low risk, female Horizon- negative for 14 out of 14 diseases Spoke with patient, name and verified. Patient informed of results including gender. Results signed, will scan and upload a copy to [employer]. Leia Everett RN 03/29/2023 4:17 PM Leia Everett RN [facility] 2023-03-27 13:00:00 Formatting of this n ote is different from the original. Images from the original note were not included. Venipuncture collection performed by clean technique on the right anticubitus. Total of 1 attempts were made. Slight pressure and a bandage/dressing were applied to the site(s). The patient experienced no complications. The following specimens were processed according to instructions and sent to [facility] laboratories per lab order on 03/27/2023 LT BLUE SST RED LAV 1 PPT DK GREEN (LiHep) DK GREEN (SodH) JAMIL DK BLUE (K2) DK BLUE (S) ACD Blood Culture NIPT/NTD [facility] 2023-03-27 09:17:43 Formatting of this n ote might be different from the original. Name and verified. Pt advised of results and plan of care as stated below per provider. 3 hr abnormal: hba1c ordered. Please give patient an appointment for diabetic teaching with RN. 2000 kcal diabetic diet. Keep appointment with me as scheduled on 8/11/23 and bring glucose log then. Pt verbalized understanding. Appts made for lab and nurse visit. Glucose supplies sent to pharmacy. EDITH MILLS RN 03/27/2023 9:18 AM Edith Mills RN [facility] 2023-03-26 16:49:12 Formatting of this n ote might be different from the original. Pt called and would like someone to go over her results with her. Please advise Taurus Parker [facility]
--- NOTE | 2024-11-23 21:48 | ER ---
Nurse's Notes [facility] Name: Mitra Melendez Age: 28 yrs Sex: Female : 1995 Arrival Date: 11/23/2024 Time: 21:00 Bed 25 Private MD: Diagnosis: Pain in hand and fingers-left;Cutaneous abscess, furuncle and carbuncle of other sites-left suprapubic area Presentation: 11/23 21:19 Chief complaint: Patient states: I have and abscess along the left side of my panty bm8 line for 2 days and I hurt my hand a week ago. it hurts to clench into a fist. Coronavirus screen: At this time, the client does not indicate any symptoms associated with coronavirus-19. Ebola Screen: Patient negative for fever greater than or equal to 101.5 degrees Fahrenheit, and additional compatible Ebola Virus Disease symptoms Patient denies exposure to infectious person. Patient denies travel to an Ebola-affected area in the 21 days before illness onset. No symptoms or risks identified at this time. Initial Sepsis Screen: Does the patient meet any 2 criteria? No. Patient's initial sepsis screen is negative. Does the patient have a suspected source of infection? No. Patient's initial sepsis screen is negative. Risk Assessment: Do you want to hurt yourself or someone else? Patient reports no desire to harm self or others. Onset of symptoms was November 21, 2024. 21:19 Method Of Arrival: Ambulatory bm8 21:19 Acuity: ELBERT 3 bm8 Triage Assessment: 21:21 General: Appears in no apparent distress. comfortable, Behavior is calm, cooperative, bm8 appropriate for age. Pain: Complains of pain in left femoral area and left hand Pain currently is 5 out of 10 on a pain scale. EENT: No deficits noted. No signs and/or symptoms were reported regarding the EENT system. Cardiovascular: Capillary refill < 3 seconds in bilateral fingers Patient's skin is warm and dry. Respiratory: No deficits noted. Airway is patent Respiratory effort is even, unlabored. Derm: Abscess located on left femoral area is nickel sized. Musculoskeletal: Circulation, motion, and sensation intact. Capillary refill Swelling present in lateral aspect of left hand Reports pain in left hand Pain is 5 out of 10 on a pain scale. Injury Description: hand injury. 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 - Infectious Disease History:: Denies. - Social history:: Smoking status: Patient reports the use of cigarette tobacco products, smokes one pack cigarettes per day. Screenin:10 [facility] ED Fall Risk Assessment (Adult) History of falling in the last 3 months, jb4 including since admission No falls in past 3 months (0 pts) Confusion or Disorientation No (0 pts) Intoxicated or Sedated No (0 pts) Impaired Gait No (0 pts) Mobility Assist Device Used No (0 pt) Altered Elimination No (0 pt) Score/Fall Risk Level 0 - 2 = Low Risk Oriented to surroundings, Maintained a safe environment. Abuse screen: Denies threats or abuse. Nutritional screening: No deficits noted. Tuberculosis screening: No symptoms or risk factors identified. Assessment: 22:10 Reassessment: Patient appears in no apparent distress at this time. Patient and/or jb4 family updated on plan of care and expected duration. Pain level reassessed. Patient is alert, oriented x 3, equal unlabored respirations, skin warm/dry/pink. Vital Signs: 21:19 BP 120 / 85; Pulse 69; Resp 18; Temp 98.1; Pulse Ox 100% ; Weight 72.57 kg; Height 5 bm8 ft. 7 in. ; Pain 5/10; 21:19 Body Mass Index 25.06 (72.57 kg, 170.18 cm) bm8 21:19 Pain Scale: Adult bm8 ED Course: 21:02 Patient arrived in ED. jj6 21:02 Chico Crabtree PA is PHCP. cp 21:02 Mike Sandhu MD is Attending Physician. cp 21:21 Triage completed. bm8 21:23 Arm band placed on right wrist. bm8 22:10 Patient has correct armband on for positive identification. Bed in low position. Call jb4 light in reach. Side rails up X 1. Provided Education on: discharge instructions.. 22:10 No provider procedures requiring assistance completed. Patient did not have IV access jb4 during this emergency room visit. Administered Medications: No medications were administered Medication: 22:10 VIS not applicable for this client. jb4 Outcome: 21:48 Discharge ordered by . ro 22:10 Discharged to home ambulatory, jb4 22:10 Condition: stable 22:10 Discharge instructions given to patient, Instructed on discharge instructions, follow up and referral plans. medication usage, Demonstrated understanding of instructions, follow-up care, medications, Prescriptions given X 2, 22:12 Patient left the ED. jb4 Signatures: Chico Crabtree PA PA cp Bryson, James, RN RN jb4 Krystyna Rojasj6 Tai Robins, RN RN bm8
--- NOTE | 2024-11-23 21:48 | EDPHYS ---
Physician Documentation [facility] Name: Mitra Melendez Age: 28 yrs Sex: Female : 1995 Arrival Date: 11/23/2024 Time: 21:00 Bed 25 Private MD: ED Physician Mike Sandhu HPI: 11/23 21:15 This 28 yrs old Female presents to ER via Ambulatory with complaints of Abscess, Hand cp Injury. 21:15 the patient presents with a swollen area of the left pubic area. Description: swollen, cp tender. Onset: The symptoms/episode began/occurred 2 day(s) ago. Possible cause(s): shaving area. Associated signs and symptoms: Pertinent negatives: fever. Patient also c/o left hand pain times about 1 week. RHD. Patient reports bumping hand against hard object but no significant trauma. In past had pain to dorsal side left thumb that has resolved. 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 - Infectious Disease History:: Denies. - Social history:: Smoking status: Patient reports the use of cigarette tobacco products, smokes one pack cigarettes per day. ROS: 21:20 Constitutional: Negative for body aches, chills, fever, poor PO intake, cp 21:20 MS/extremity: Positive for pain, of the dorsal side of left hand, Negative for injury or acute deformity, decreased range of motion, paresthesias, 21:20 Skin: Positive for swelling, of the left pubic area, pain, Negative for rash, 21:20 All other systems are negative, Exam: 21:25 Constitutional: The patient appears in no acute distress, alert, awake, comfortable, cp non-toxic, well developed, well nourished, 21:25 Head/Face: Normocephalic, atraumatic. cp 21:25 Chest/axilla: Inspection: normal, 21:25 Cardiovascular: Rate: normal, 21:25 Respiratory: the patient does not display signs of respiratory distress, Respirations: normal, no use of accessory muscles, no retractions, labored breathing, is not present, 21:25 Abdomen/GI: Exam negative for discomfort, distension, guarding, Inspection: abdomen appears normal, 21:25 Musculoskeletal/extremity: Extremities: noted in the dorsal side of left hand: tenderness, pain, minimal swelling noted along distal extensor tendon area of left second and third metacarpal area, There is no evidence of erythema, cellulitis, ROM: full active range of motion, in the left hand, Perfusion: the extremity is normally perfused throughout, the left hand Sensation intact. 21:25 Skin: small boil/furuncle noted left pubic area with tenderness, no drainage expressed, mild erythema noted. Vital Signs: 21:19 BP 120 / 85; Pulse 69; Resp 18; Temp 98.1; Pulse Ox 100% ; Weight 72.57 kg; Height 5 bm8 ft. 7 in. ; Pain 5/10; 21:19 Body Mass Index 25.06 (72.57 kg, 170.18 cm) bm8 21:19 Pain Scale: Adult bm8 MDM: 21:12 Medical Screening Exam initiated cp 21:20 Differential diagnosis: abscess, allergic reaction, cellulitis, dermatitis, tendonitis, cp fracture. 21:47 Data reviewed: vital signs, nurses notes, and as a result, I will discharge patient. cp 21:47 Counseling: I had a detailed discussion with the patient and/or guardian regarding the cp historical points, exam findings, and any diagnostic results supporting the discharge/admit diagnosis, to return to the emergency department if symptoms worsen or persist or if there are any questions or concerns that arise at home. Administered Medications: No medications were administered Disposition: 11/24 19:31 Chart complete. cp Disposition Summary: 11/23/24 21:48 Discharge Ordered Notes: Location: Home cp Problem: new cp Symptoms: have improved cp Condition: Stable cp Diagnosis - Pain in hand and fingers - left cp - Cutaneous abscess, furuncle and carbuncle of other sites - left suprapubic area cp Followup: cp - With: Private Physician - When: 2 - 3 days - Reason: Worsening of condition Discharge Instructions: - Discharge Summary Sheet cp - Skin Abscess cp - Hand Pain cp Forms: - Medication Reconciliation Form cp - Antibiotic Education cp - Prescription Opioid Use cp - Patient Portal Instructions cp - Leadership Thank You Letter cp Prescriptions: - Cephalexin 500 mg Oral Capsule - take 1 capsule ORAL route every 6 hours for 10 days; 40 capsule; Refills: 0, cp Product Selection Permitted - Diclofenac Sodium 75 mg Oral Tablet Sustained Release - take 1 tablet ORAL route 2 times per day; 30 tablet; Refills: 0, Product cp Selection Permitted Signatures: Chico Crabtree PA PA cp McDonald, Brad RN RN bm8 Corrections: (The following items were deleted from the chart) 19:26 19:24 Skin: Positive for swelling, of the left pubic area, pain, Negative for rash, cp cp 19:26 19:24 MS/extremity: Positive for pain, of the dorsal side of left hand, Negative for cp injury or acute deformity, decreased range of motion, paresthesias, cp 19:26 19:24 Constitutional: Negative for body aches, chills, fever, poor PO intake, cp cp 19:26 19:24 All other systems are negative, cp cp
[2024-11-23 22:17] VITALS: BP 120/85; TEMP 98.1; O2SAT 100
== END 2024-11-23 22:12 | disposition home or self-care (01) ==
LOC: ER 21:00
DX: M79.642 Pain in left hand (principal); L02.818 Cutaneous abscess of other sites; L02.828 Furuncle of other sites; L02.838 Carbuncle of other sites
CPT/HCPCS: 99283

== ENCOUNTER 2024-12-27 14:55 | Emergency (ER) | payer OTHER, SELFPAY ==
--- OUTSIDE RECORDS SUMMARY | 2024-12-27 15:05 | XMS REPORT | Continuity of Care Document ---
Author Name Unknown Address [address] [facility] [address] [place] [address] Organization [facility] [place] Address [address] [facility] [place] [address] Care Team Providers Care Inspector [employer] Name Role Phone PCP, PATIENT DOES NOT HAVE A Primary Care Physic katlin Unavailable MARCIA OCAMPO Attending Clinician Unavailable CARITO PICHARDO Attending Clinician Unavailable Marcia Ocampo MD Attending Clinician [phone] Doctor Unassigned, [place] Attending Clinician U navailable Sachin William MD Attending Clinicia n Darius GAITAN, Loreta Attending Clinician [phone] Po, [facility] Lab Main Attending Clinician Unavailabl e Lab, Ang - Db Attending Clinician Unavailable LEONA PRIETO Attending Clinician Unav ailable Ultrasound, Ang-Mfm Attending Clinician UnavailLeona Escalera MD Attending Clinician + [email or web address] Attending Clinician UnavailMarine Jo MD Attending Clinician [phone] MARINE WORTHINGTON Attending Clinician Unavailable MARINE WORTHINGTON Attending Clinician Unavailable ATUL LEAL Attending Clinician Unavailable Atul Leal DO Attending Clinician [phone] Gretel GAITAN, Martell Attending Clinician [phone] Marely Ly RN Attending Clinician Unavailabl e Nurse, [facility] Attending Clinician Un available Leia Everett RN Attending Clinician UnavailRAMIREZ Back Attending Clinician Unavailable Ramirez Sanchez MD Attending Clinician [phone] EDITA OATES Attending Clinician Unavaila Edita Junior CNM Attending Clinician [phone] GERMAN BACK Attending Clinician Unavailab SURJIT Catalan Attending Clinician Unavail able Krystal WHCNPSurjit Attending Clinician + German Gil Attending Clinician + [phone] SKYLER CUELLAR Attending Clinician Unavailtamia Cuellar GLUE COOK, Skyler Douglas Attending Clinician [phone] LORENZO CHEATHAM Attending Clinician Unavail able Visit, [facility] Nurse Attending Clinician Monica Bella MD Attending Clinician [phone] MARCIA OCAMPO Admitting Clinician Unavailable [email or web address] Admitting Clinician Unavaila guillermo Payers Payer Name Policy Type Policy Number Effective Date Expirati on Date Source [place] [employer] [id number] 2023 00:00:00 Problems Condition Name Condition Details Condition Category Status Onset Date Resolution Date Last Treatment Date Treating Clinician Comments Source 39 weeks gestation of 39 weeks gestation of Disease Active 09-25 00:00: 00 [facility] Liveborn , of [place] , born in hospital by vaginal delivery Liveborn , of [place] , born in hospital by vaginal delivery Disease Active 09-25 00:00: 00 [facility] 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 test for herpes simplex virus (HSV) antibody Disease Active 05-17 00:00: 00 [facility] GDM (gestation al diabetes mellitus), class A1 GDM (gestation al diabetes mellitus), class A1 Disease Active 04-19 00:00: 00 [facility] High-risk in third trimester High-risk in third trimester Disease Active 04-19 00:00: 00 [facility] Family history of congenital heart disease Family history of congenital heart disease Disease Active 8-11 00:00: 00 [facility] History of gestationa l diabetes mellitus (GDM) History of gestationa l diabetes mellitus (GDM) Disease Active 8-11 00:00: 00 [facility] Normal in first trimester Normal in first trimester Disease Active 7-14 00:00: 00 [facility] Nausea and vomiting during prior to 22 weeks gestation Nausea and vomiting during prior to 22 weeks gestation Disease Active 7-14 00:00: 00 [facility] History of anxiety and depression History of anxiety and depression Disease Active 4-13 00:00: 00 [facility] BMI 25.0-25.9, adult BMI 25.0-25.9, adult Disease Active 4-07 00:00: 00 [facility] BMI 25.0-25.9, adult BMI 25.0-25.9, adult Disease Active 407 00:00: 00 [facility] Nexplanon in place Nexplanon in place Disease Active 3- 00:00: 00 [facility] Flu vaccine need Flu vaccine need Disease Active 3-31 00:00: 00 [facility] Internal thrombosed hemorrhoid s Internal thrombosed hemorrhoid s Disease Active 0 6- 00:00: 00 [facility] Chlamydia trachomati s infection of lower genitourin victorina sites Chlamydia trachomati s infection of lower genitourin victorina sites Disease Active 2018-09 2 00:00: 00 [facility] Encounter for surveillan ce of implantabl e subdermal contracept giovanna Encounter for surveillan ce of implantabl e subdermal contracept giovanna Disease Active 2017-09 00:00: 00 [facility] Tobacco use disorder Tobacco use disorder Disease Active 2017-09 00:00: 00 [facility] 23 weeks gestation of 23 weeks gestation of Diagnosis Active [facility] Paronychia of finger of left hand Paronychia of finger of left hand Diagnosis Active [facility] Allergies, Adverse Reactions, Alerts Allergy Name Allergy Type Status Severity Reaction(s) Onset Date Inactive Date Treating Clinician Comments Source NO KNOWN ALLERGIE S Drug Class Active [facility] Social History Social Habit Start Date Stop Date Quantity Comments Source ASSERTION 2023-01-09 00:00:00 [facility] History of tobacco use 2007-10-04 00:00:00 Cigarette Smoker [facility] History SDOH Alcohol Frequency [facility] History SDOH Alcohol Std Drinks [facility] History SDOH Alcohol Binge [facility] Alcohol intake 2023-12-04 00:00:00 2023-12-04 00:00:00 Ex-drinker (finding) [facility] History of Social function 2023-11-06 00:00:00 2023-11-06 00:00:00 [facility] Alcohol Comment 2023-03-22 00:00:00 2023-03-22 00:00:00 qquit when fund out was [facility] Cigarettes smoked current (pack per day) - Reported 2023-03-22 00:00:00 2023-03-22 00:00:00 [facility] Cigarette pack-years 2023-03-22 00:00:00 2023-03-22 00:00:00 [facility] Tobacco use and exposure 2023-03-22 00:00:00 2023-03-22 00:00:00 Smokeless tobacco non-user [facility] Exposure to SARS-CoV-2 (event) 2022-12-10 00:00:00 2022-12-20 14:24:00 Not sure [facility] Sex Assigned At 1995 00:00:00 1995 00:00:00 [facility] Smoking Status Start Date Stop Date Source Smokes tobacco daily 2023-03-22 00:00:00 [facility] Medications Ordered Medication Name Filled Medication Name Start Date Stop Date Current Medication? Ordering Clinician Indication Dosage Frequency Signature (SIG) Comments Components Source sulfamethox azole-trime thoprim (BACTRIM DS) 800-160 mg per tablet 12-03 00:00: 00 12-07 04:59 :00 No [id number] 1{tbl} Take 1 tablet by mouth in the morning and 1 tablet in the evening. Do all this for 3 days. [facility] sulfamethox azole-trime thoprim (BACTRIM DS) 800-160 mg per tablet 11-18 00:00: 00 11-24 04:59 :00 No [id number] 1{tbl} Take 1 tablet by mouth in the morning and 1 tablet in the evening. Do all this for 5 days. [facility] cephALEXin 500 mg capsule 11-12 00:00: 00 11-18 00:00 :00 No [id number] 500mg Take 1 capsule by mouth 4 (four) times daily for 10 days. [facility] etonogestre L (NEXPLANON) implant 68 mg 00:15: 00 11-06 23:46 :00 No [id number] [address]mg [facility] metoclopram nabila HCl (REGLAN) tablet 10 mg 09-26 20:15: 00 09-26 19:35 :00 No 10mg 10 mg, Oral, ONCE, 1 dose, On Sat09/26/23 at 1415, Routine [facility] PNV no.95/giancarlo us fum/folic ac ( ORAL) 09-26 07:35: 16 09-26 00:00 :00 No Take by mouth. [facility] rho(D) immune globulin (RHOGAM) syringe 300 mcg 09-26 06:03: 58 Yes 300ug 300 mcg, Intramuscu lar, ONCE, For 1 dose, Conditiona l, Routine [facility] witch Kamryn (TUCKS) 50 % topical pad 09-26 06:03: 53 Yes Topical, Q4HPRN, Starting on Sat09/26/23 at 0003, Until Discontinu ed, Routine, rectal/hem orrhoidal pain [facility] HYDROcodone -acetaminop hen (NORCO 5) 5-325 mg tablet 1 tablet 09-26 06:03: 53 Yes 1{tbl} 1 tablet, Oral, Q6HPRN, Starting on Sat09/26/23 at 0003, Until Discontinu ed, Routine, Pain (scale 7-10) [facility] ibuprofen (IBU) tablet 600 mg 09-26 06:03: 53 Yes 600mg 600 mg, Oral, Q6HPRN, Starting on Sat09/26/23 at 0003, Until Discontinu ed, Routine, Pain (scale 4-6) [facility] acetaminoph en (TYLENOL) tablet 650 mg 09-26 06:03: 53 Yes 650mg 650 mg, Oral, Q6HPRN, Starting on Sat09/26/23 at 0003, Until Discontinu ed, Routine, Pain (scale 1-3) [facility] diphenhydrA MINE (BENADRYL) tablet 25 mg 09-26 06:03: 53 Yes 25mg 25 mg, Oral, Q6HPRN, Starting on Sat09/26/23 at 0003, Until Discontinu ed, Routine, Sleep, Itching [facility] ondansetron (ZOFRAN (PF)) injection 4 mg 09-26 06:03: 53 Yes 4mg 4 mg, Slow IV Push, Q8HPRN, Starting on Sat09/26/23 at 2, Until Discontinu ed, Routine, Nausea and Vomiting (N/V) [facility] simethicone (GAS RELIEF (SIMETHICON E)) chewable tablet 160 mg 09-26 06:03: 53 Yes 160mg 160 mg, Oral, PC+HSPRN, Starting on Sat09/26/23 at 0003, Until Discontinu ed, Routine, Gas [facility] docusate (COLACE) capsule 200 mg 09-26 06:03: 53 Yes 200mg 200 mg, Oral, QDAILYPRN, Starting on Sat09/26/23 at 0003, Until Discontinu ed, Routine, Constipati on [facility] magnesium hydroxide (MILK OF MAGNESIA) 400 mg/5 mL suspension 30 mL 09-26 06:03: 53 Yes 30mL 30 mL, Oral, QDAILYPRN, Starting on Sat09/26/23 at 0003, Until Discontinu ed, Routine, Constipati on [facility] benzocaine- menthol (DERMOPLAST ) 20-0.5 % topical spray 09-26 06:03: 53 Yes Topical, PRN, Starting on Sat09/26/23 at 0003, Until Discontinu ed, Routine, Perineum discomfort [facility] vitamin w/FA tablet 09-26 00:00: 00 11-06 00:00 :00 No [id number] 1{tbl} Take 1 tablet by mouth in the morning. [facility] docusate 100 mg capsule 09-26 00:00: 00 11-06 00:00 :00 No [id number] 200mg Take 2 capsules by mouth once daily as needed for Constipati on. [facility] ferrous sulfate 325 mg (65 mg iron) tablet 09-26 00:00: 00 11-06 00:00 :00 No [id number] 325mg Take 1 tablet by mouth in the morning and 1 tablet in the evening. [facility] ibuprofen 600 mg tablet 09-26 00:00: 00 11-06 00:00 :00 No [id number] 600mg Take 1 tablet by mouth every 6 (six) hours as needed (Pain). Take with food or milk. [facility] PNV no.95/giancarlo us fum/folic ac ( ORAL) 09-25 23:18: 46 Yes Take by mouth. [facility] fentaNYL-ro pivacaine 2 mcg/mL-0.1 % (PF) in NS 200 mL epidural infusion RTU 09-25 16:57: 00 Yes Epidural, CONTINUOUS PRN, Starting on Sat09/25/23 at 1057, Until Discontinu ed, Routine, Intra-op [facility] lidocaine-e pinephrine (XYLOCAINE W/EPINEPHRI NE) 1.5 %-1:200,000 injection 09-25 16:49: 00 Yes Intraderma l, ONCE INTRA PROCEDURE, Starting on Sat09/25/23 at 1049, Until Discontinu ed, Routine, Intra-op [facility] acyclovir (ZOVIRAX) tablet 400 mg 09-25 14:00: 00 09-26 06:03 :57 No 400mg 400 mg, Oral, TID, First dose on Sat09/25/23 at 0800, Until Discontinu ed, BALTA [facility] lactated ringers IV infusion 500 mL 09-25 12:32: 53 09-26 06:03 :56 No 500mL at 999 mL/hr, 500 mL, IV Infusion, PRN - SEE INSTRUCTIO NS, Starting on Sat09/25/23 at 0632, Until Kate 09/26/23 at 0003, Routine [facility] FENTanyl PF (SUBLIMAZE (PF)) injection 100 mcg 09-25 12:32: 53 09-26 06:03 :57 No 100ug 100 mcg, Slow IV Push, Q1HPRN, Starting on Sat09/25/23 at 0632, Until Kate 09/26/23 at 0003, Routine, contractio n pain without an epidural and SVE < 8 cm and Cat I strip [facility] oxytocin (PITOCIN) 30 units in NS 500 mL IV infusion 09-25 12:32: 53 09-26 06:03 :57 No 2mU/min at 2-40 mL/hr, IV Infusion, TITRATE, Starting on Sat09/25/23 at 0632, Until Kate 09/26/23 at 0003, BALTA [facility] D5W-LR IV infusion 1,000 mL 09-25 12:32: 53 09-26 06:03 :56 No 1000mL at 1-125 mL/hr, IV Infusion, TITRATE, Starting on Sat09/25/23 at 0632, Until Kate 09/26/23 at 0003, Routine [facility] PNV no.95/giancarlo us fum/folic ac ( ORAL) 1-12 14:40: 57 Yes Take by mouth. [facility] nirmatrelvi r-ritonavir (PAXLOVID) 300 mg (150 mg x 2)-100 mg tablet 2022-09 2-29 00:00: 00 Yes 3{tbl} Take 3 tablets by mouth in the morning and 3 tablets in the evening. [facility] PNV no.95/giancarlo us fum/folic ac ( ORAL) 2022-09 2-15 13:12: 22 Yes Take by mouth. [facility] acyclovir 400 mg tablet 2022-09 2- 00:00: 00 09-26 00:00 :00 No [id number] 400mg Take 1 tablet by mouth in the morning and 1 tablet at noon and 1 tablet in the evening. [facility] blood sugar diagnostic (BLOOD GLUCOSE TEST) strip 2022-09 0-31 00:00: 00 09-26 00:00 :00 No Check gluocose 4 times a day [facility] sulfamethox azole-trime thoprim (BACTRIM DS) 800-160 mg per tablet 908 00:00: 00 05-28 04:59 :00 No [id number] 1{tbl} Take 1 tablet by mouth in the morning and 1 tablet in the evening. Do all this for 10 days. [facility] cephALEXin (KEFLEX) 500 mg capsule 05-06 00:00: 00 05-14 04:59 :00 No [id number] 500mg Take 1 capsule by mouth in the morning and 1 capsule at noon and 1 capsule in the evening. Do all this for 7 days. [facility] Blood-Gluco se Meter Kit 03-27 00:00: 00 09-26 00:00 :00 No Check glucose 4 times a day. [facility] Lancets Misc 03-27 00:00: 00 09-26 00:00 :00 No Check glucose 4 times a day [facility] Alcohol Swabs (ALCOHOL PADS) PadM 03-27 00:00: 00 09-26 00:00 :00 No Apply to area(s) 4 (four) times daily. [facility] blood sugar diagnostic (BLOOD GLUCOSE TEST) strip 03-27 00:00: 00 07-09 00:00 :00 No Check gluocose 4 times a day [facility] PNV no.95/giancarlo us fum/folic ac ( ORAL) 03-22 09:00: 18 Yes Take by mouth. [facility] pyridoxine, VITAMIN B-6, (VITAMIN B-6) 25 mg tablet 03-22 00:00: 00 09-26 00:00 :00 No [id number] 25mg Take 1 tablet by mouth every 6 (six) hours as needed for Nausea and Vomiting (N/V). [facility] doxylamine (UNISOM, DOXYLAMINE, ) 25 mg tablet 03-22 00:00: 00 09-26 00:00 :00 No [id number] 25mg Take 1 tablet by mouth at bedtime as needed for Nausea and Vomiting (N/V). [facility] metoclopram nabila HCl 10 mg tablet 03-22 00:00: 00 09-26 00:00 :00 No [id number] 10mg Take 1 tablet by mouth every 6 (six) hours as needed for Nausea and Vomiting (N/V). [facility] ondansetron (ZOFRAN-ODT ) disintegrat ing tablet 4 mg 03-07 05:00: 00 03-07 03:55 :00 No 4mg 4 mg, Oral, ONCE, 1 dose, On Kate 03/07/23 at 0000, BALTA [facility] doxylamine- pyridoxine, vit B6, (DICLEGIS) 10-10 mg per tablet 03-06 00:00: 00 03-22 00:00 :00 No [id number] 1{tbl} Take 1 tablet by mouth 4 (four) times daily as needed for Nausea and Vomiting (N/V). [facility] No known medications 2021-09 13:50: 57 No No known medication s [facility] No known medications 12-14 09:03: 50 No [facility] Yes Florencio Mitchell 1 tablet [facility] Immunizations Ordered Immunization Name Filled Immunization Name Date Status Comments Source Influenza Virus Vaccine Quad .5 mL IM 6+ MO 2021-12-14 00:00:00 Completed [facility] Influenza Virus Vaccine Quad .5 mL IM 6+ MO 2021-12-14 00:00:00 Completed [facility] Influenza Virus Vaccine Quad .5 mL IM 6+ MO 2021-12-14 00:00:00 Completed [facility] Influenza Virus Vaccine Quad .5 mL IM 6+ MO 2021-12-14 00:00:00 Completed [facility] Influenza Virus Vaccine Quad .5 mL IM 6+ MO 2021-12-14 00:00:00 Completed [facility] Influenza Virus Vaccine Quad .5 mL IM 6+ MO 2021-12-14 00:00:00 Completed [facility] Influenza Virus Vaccine Quad .5 mL IM 6+ MO 2021-12-14 00:00:00 Completed [facility] Influenza Virus Vaccine Quad .5 mL IM 6+ MO 2021-12-14 00:00:00 Completed [facility] Influenza Virus Vaccine Quad .5 mL IM 6+ MO 2021-12-14 00:00:00 Completed [facility] Influenza Virus Vaccine Quad .5 mL IM 6+ MO (FLUZONE/FLULAVAL/FL UARIX) 2021-12-14 00:00:00 Completed [facility] Influenza Virus Vaccine Quad .5 mL IM 6+ MO (FLUZONE/FLULAVAL/FL UARIX) 2021-12-14 00:00:00 Completed [facility] Influenza Virus Vaccine Quad .5 mL IM 6+ MO 2021-12-14 00:00:00 Completed [facility] Influenza Virus Vaccine Quad .5 mL IM 6+ MO 2021-12-14 00:00:00 Completed [facility] Influenza Virus Vaccine Quad .5 mL IM 6+ MO 2021-12-14 00:00:00 Completed [facility] Influenza Virus Vaccine Quad .5 mL IM 6+ MO 2021-12-14 00:00:00 Completed [facility] Influenza Virus Vaccine Quad .5 mL IM 6+ MO 2021-12-14 00:00:00 Completed [facility] Influenza Virus Vaccine Quad .5 mL IM 6+ MO 2021-12-14 00:00:00 Completed [facility] Influenza Virus Vaccine Quad .5 mL IM 6+ MO 2021-12-14 00:00:00 Completed [facility] Influenza Virus Vaccine Quad .5 mL IM 6+ MO 2021-12-14 00:00:00 Completed [facility] Influenza Virus Vaccine Quad .5 mL IM 6+ MO 2021-12-14 00:00:00 Completed [facility] Influenza Virus Vaccine Quad .5 mL IM 6+ MO 2021-12-14 00:00:00 Completed [facility] Influenza Virus Vaccine Quad .5 mL IM 6+ MO 2021-12-14 00:00:00 Completed [facility] Influenza Virus Vaccine Quad .5 mL IM 6+ MO 2021-12-14 00:00:00 Completed [facility] Influenza Virus Vaccine Quad .5 mL IM 6+ MO 2021-12-14 00:00:00 Completed [facility] Influenza Virus Vaccine Quad .5 mL IM 6+ MO 2021-12-14 00:00:00 Completed [facility] HPV9 2020-12-07 00:00:00 Completed [facility] HPV9 2020-12-07 00:00:00 Completed [facility] HPV9 2020-12-07 00:00:00 Completed [facility] HPV9 2020-12-07 00:00:00 Completed [facility] HPV9 2020-12-07 00:00:00 Completed [facility] HPV9 2020-12-07 00:00:00 Completed [facility] HPV9 2020-12-07 00:00:00 Completed [facility] HPV9 2020-12-07 00:00:00 Completed [facility] HPV9 2020-12-07 00:00:00 Completed [facility] HPV9 2020-12-07 00:00:00 Completed [facility] HPV9 2020-12-07 00:00:00 Completed [facility] HPV9 2020-12-07 00:00:00 Completed [facility] HPV9 2020-12-07 00:00:00 Completed [facility] HPV9 2020-12-07 00:00:00 Completed [facility] HPV9 2020-12-07 00:00:00 Completed [facility] HPV9 2020-12-07 00:00:00 Completed [facility] HPV9 2020-12-07 00:00:00 Completed [facility] HPV9 2020-12-07 00:00:00 Completed [facility] HPV9 2020-12-07 00:00:00 Completed [facility] HPV9 2020-12-07 00:00:00 Completed [facility] HPV9 2020-12-07 00:00:00 Completed [facility] HPV9 2020-12-07 00:00:00 Completed [facility] HPV9 2020-12-07 00:00:00 Completed [facility] HPV9 2020-12-07 00:00:00 Completed [facility] HPV9 2020-12-07 00:00:00 Completed [facility] HPV9 2019-09-17 00:00:00 Completed [facility] HPV9 2019-09-17 00:00:00 Completed [facility] HPV9 2019-09-17 00:00:00 Completed [facility] HPV9 2019-09-17 00:00:00 Completed [facility] HPV9 2019-09-17 00:00:00 Completed [facility] HPV9 2019-09-17 00:00:00 Completed [facility] HPV9 2019-09-17 00:00:00 Completed [facility] HPV9 2019-09-17 00:00:00 Completed [facility] HPV9 2019-09-17 00:00:00 Completed [facility] HPV9 2019-09-17 00:00:00 Completed [facility] HPV9 2019-09-17 00:00:00 Completed [facility] HPV9 2019-09-17 00:00:00 Completed [facility] HPV9 2019-09-17 00:00:00 Completed [facility] HPV9 2019-09-17 00:00:00 Completed [facility] HPV9 2019-09-17 00:00:00 Completed [facility] HPV9 2019-09-17 00:00:00 Completed [facility] HPV9 2019-09-17 00:00:00 Completed [facility] HPV9 2019-09-17 00:00:00 Completed [facility] HPV9 2019-09-17 00:00:00 Completed [facility] HPV9 2019-09-17 00:00:00 Completed [facility] HPV9 2019-09-17 00:00:00 Completed [facility] HPV9 2019-09-17 00:00:00 Completed [facility] HPV9 2019-09-17 00:00:00 Completed [facility] HPV9 2019-09-17 00:00:00 Completed [facility] HPV9 2019-09-17 00:00:00 Completed [facility] HPV9 2019-08-05 00:00:00 Completed [facility] Influenza Virus Vaccine Quad .5 mL IM 6+ MO 2019-08-05 00:00:00 Completed [facility] HPV9 2019-08-05 00:00:00 Completed [facility] Influenza Virus Vaccine Quad .5 mL IM 6+ MO 2019-08-05 00:00:00 Completed [facility] HPV9 2019-08-05 00:00:00 Completed [facility] Influenza Virus Vaccine Quad .5 mL IM 6+ MO 2019-08-05 00:00:00 Completed [facility] HPV9 2019-08-05 00:00:00 Completed [facility] Influenza Virus Vaccine Quad .5 mL IM 6+ MO 2019-08-05 00:00:00 Completed [facility] HPV9 2019-08-05 00:00:00 Completed [facility] Influenza Virus Vaccine Quad .5 mL IM 6+ MO 2019-08-05 00:00:00 Completed [facility] HPV9 2019-08-05 00:00:00 Completed [facility] Influenza Virus Vaccine Quad .5 mL IM 6+ MO 2019-08-05 00:00:00 Completed [facility] HPV9 2019-08-05 00:00:00 Completed [facility] Influenza Virus Vaccine Quad .5 mL IM 6+ MO 2019-08-05 00:00:00 Completed [facility] HPV9 2019-08-05 00:00:00 Completed [facility] Influenza Virus Vaccine Quad .5 mL IM 6+ MO 2019-08-05 00:00:00 Completed [facility] HPV9 2019-08-05 00:00:00 Completed [facility] Influenza Virus Vaccine Quad .5 mL IM 6+ MO 2019-08-05 00:00:00 Completed [facility] HPV9 2019-08-05 00:00:00 Completed [facility] Influenza Virus Vaccine Quad .5 mL IM 6+ MO (FLUZONE/FLULAVAL/FL UARIX) 2019-08-05 00:00:00 Completed [facility] HPV9 2019-08-05 00:00:00 Completed [facility] Influenza Virus Vaccine Quad .5 mL IM 6+ MO (FLUZONE/FLULAVAL/FL UARIX) 2019-08-05 00:00:00 Completed [facility] HPV9 2019-08-05 00:00:00 Completed [facility] Influenza Virus Vaccine Quad .5 mL IM 6+ MO 2019-08-05 00:00:00 Completed [facility] HPV9 2019-08-05 00:00:00 Completed [facility] Influenza Virus Vaccine Quad .5 mL IM 6+ MO 2019-08-05 00:00:00 Completed [facility] HPV9 2019-08-05 00:00:00 Completed [facility] Influenza Virus Vaccine Quad .5 mL IM 6+ MO 2019-08-05 00:00:00 Completed [facility] HPV9 2019-08-05 00:00:00 Completed [facility] Influenza Virus Vaccine Quad .5 mL IM 6+ MO 2019-08-05 00:00:00 Completed [facility] HPV9 2019-08-05 00:00:00 Completed [facility] Influenza Virus Vaccine Quad .5 mL IM 6+ MO 2019-08-05 00:00:00 Completed [facility] HPV9 2019-08-05 00:00:00 Completed [facility] Influenza Virus Vaccine Quad .5 mL IM 6+ MO 2019-08-05 00:00:00 Completed [facility] HPV9 2019-08-05 00:00:00 Completed [facility] Influenza Virus Vaccine Quad .5 mL IM 6+ MO 2019-08-05 00:00:00 Completed [facility] HPV9 2019-08-05 00:00:00 Completed [facility] Influenza Virus Vaccine Quad .5 mL IM 6+ MO 2019-08-05 00:00:00 Completed [facility] HPV9 2019-08-05 00:00:00 Completed [facility] Influenza Virus Vaccine Quad .5 mL IM 6+ MO 2019-08-05 00:00:00 Completed [facility] HPV9 2019-08-05 00:00:00 Completed [facility] Influenza Virus Vaccine Quad .5 mL IM 6+ MO 2019-08-05 00:00:00 Completed [facility] HPV9 2019-08-05 00:00:00 Completed [facility] Influenza Virus Vaccine Quad .5 mL IM 6+ MO 2019-08-05 00:00:00 Completed [facility] HPV9 2019-08-05 00:00:00 Completed [facility] Influenza Virus Vaccine Quad .5 mL IM 6+ MO 2019-08-05 00:00:00 Completed [facility] HPV9 2019-08-05 00:00:00 Completed [facility] Influenza Virus Vaccine Quad .5 mL IM 6+ MO 2019-08-05 00:00:00 Completed [facility] HPV9 2019-08-05 00:00:00 Completed [facility] Influenza Virus Vaccine Quad .5 mL IM 6+ MO 2019-08-05 00:00:00 Completed [facility] TDAP 2018-05-08 00:00:00 Completed [facility] TDAP 2018-05-08 00:00:00 Completed [facility] TDAP 2018-05-08 00:00:00 Completed [facility] TDAP 2018-05-08 00:00:00 Completed [facility] TDAP 2018-05-08 00:00:00 Completed [facility] TDAP 2018-05-08 00:00:00 Completed [facility] TDAP 2018-05-08 00:00:00 Completed [facility] TDAP 2018-05-08 00:00:00 Completed [facility] TDAP 2018-05-08 00:00:00 Completed [facility] TDAP 2018-05-08 00:00:00 Completed [facility] TDAP 2018-05-08 00:00:00 Completed [facility] TDAP 2018-05-08 00:00:00 Completed [facility] TDAP 2018-05-08 00:00:00 Completed [facility] TDAP 2018-05-08 00:00:00 Completed [facility] TDAP 2018-05-08 00:00:00 Completed [facility] TDAP 2018-05-08 00:00:00 Completed [facility] TDAP 2018-05-08 00:00:00 Completed [facility] TDAP 2018-05-08 00:00:00 Completed [facility] TDAP 2018-05-08 00:00:00 Completed [facility] TDAP 2018-05-08 00:00:00 Completed [facility] TDAP 2018-05-08 00:00:00 Completed [facility] TDAP 2018-05-08 00:00:00 Completed [facility] TDAP 2018-05-08 00:00:00 Completed [facility] TDAP 2018-05-08 00:00:00 Completed [facility] TDAP 2018-05-08 00:00:00 Completed [facility] TDAP 2008-11-26 00:00:00 Completed [facility] Varicella (varivax)(chicken pox) 2008-11-26 00:00:00 Completed [facility] Meningococcal Polysaccharide (groups A, C, Y and W-135) conjugate vaccine (MCV4P) 2008-11-26 00:00:00 Completed [facility] TDAP 2008-11-26 00:00:00 Completed [facility] Varicella (varivax)(chicken pox) 2008-11-26 00:00:00 Completed [facility] Meningococcal Polysaccharide (groups A, C, Y and W-135) conjugate vaccine (MCV4P) 2008-11-26 00:00:00 Completed [facility] TDAP 2008-11-26 00:00:00 Completed [facility] Varicella (varivax)(chicken pox) 2008-11-26 00:00:00 Completed [facility] Meningococcal Polysaccharide (groups A, C, Y and W-135) conjugate vaccine (MCV4P) 2008-11-26 00:00:00 Completed [facility] TDAP 2008-11-26 00:00:00 Completed [facility] Varicella (varivax)(chicken pox) 2008-11-26 00:00:00 Completed [facility] Meningococcal Polysaccharide (groups A, C, Y and W-135) conjugate vaccine (MCV4P) 2008-11-26 [facility] Com[facility] Varicella (varivax)(chicken pox) 2008-11-26 00:00:00 Completed [facility] Meningococcal Polysaccharide (groups A, C, Y and W-135) conjugate vaccine (MCV4P) 2008-11-26 00:00:00 [facility]:00:00 Completed [facility] Varicella (varivax)(chicken pox) 2008-11-26 00:00:00 Completed [facility] Meningococcal Polysaccharide (groups A, C, Y and W-135) conjugate vaccine (MCV4P) 2008-11-26 00:00:00 Completed [facility] TDAP 2008-11-26 00:00:00 Completed [facility] Varicella (varivax)(chicken pox) 2008-11-26 00:00:00 Completed [facility] Meningococcal Polysaccharide (groups A, C, Y and W-135) conjugate vaccine (MCV4P) 2008-11-26 00:00:00 Completed [facility] TDAP 2008-11-26 00:00:00 Completed [facility] Varicella (varivax)(chicken pox) 2008-11-26 00:00:00 Completed [facility] Meningococcal Polysaccharide (groups A, C, Y and W-135) conjugate vaccine (MCV4P) 2008-11-26 00:00:00 Completed [facility] TDAP 2008-11-26 00:00:00 Completed [facility] Varicella (varivax)(chicken pox) 2008-11-26 00:00:00 Completed [facility] Meningococcal Polysaccharide (groups A, C, Y and W-135) conjugate vaccine (MCV4P) 2008-11-26 00:00:00 Completed [facility] TDAP 2008-11-26 00:00:00 Completed [facility] Varicella (varivax)(chicken pox) 2008-11-26 00:00:00 Completed [facility] Meningococcal Polysaccharide (groups A, C, Y and W-135) conjugate vaccine (MCV4P) 2008-11-26 00:00:00 Completed [facility] TDAP 2008-11-26 00:00:00 Completed [facility] Varicella (varivax)(chicken pox) 2008-11-26 00:00:00 Completed [facility] Meningococcal Polysaccharide (groups A, C, Y and W-135) conjugate vaccine (MCV4P) 2008-11-26 00:00:00 Completed [facility] TDAP 2008-11-26 00:00:00 Completed [facility] Varicella (varivax)(chicken pox) 2008-11-26 00:00:00 Completed [facility] Meningococcal Polysaccharide (groups A, C, Y and W-135) conjugate vaccine (MCV4P) 2008-11-26 00:00:00 Completed [facility] TDAP 2008-11-26 00:00:00 Completed [facility] Varicella (varivax)(chicken pox) 2008-11-26 00:00:00 Completed [facility] Meningococcal Polysaccharide (groups A, C, Y and W-135) conjugate vaccine (MCV4P) 2008-11-26 00:00:00 Completed [facility] TDAP 2008-11-26 00:00:00 Completed [facility] Varicella (varivax)(chicken pox) 2008-11-26 00:00:00 Completed [facility] Meningococcal Polysaccharide (groups A, C, Y and W-135) conjugate vaccine (MCV4P) 2008-11-26 00:00:00 Completed [facility] TDAP 2008-11-26 00:00:00 Completed [facility] Varicella (varivax)(chicken pox) 2008-11-26 00:00:00 Completed [facility] Meningococcal Polysaccharide (groups A, C, Y and W-135) conjugate vaccine (MCV4P) 2008-11-26 00:00:00 Completed [facility] TDAP 2008-11-26 00:00:00 Completed [facility] Varicella (varivax)(chicken pox) 2008-11-26 00:00:00 Completed [facility] Meningococcal Polysaccharide (groups A, C, Y and W-135) conjugate vaccine (MCV4P) 2008-11-26 00:00:00 Completed [facility] TDAP 2008-11-26 00:00:00 Completed [facility] Varicella (varivax)(chicken pox) 2008-11-26 00:00:00 Completed [facility] Meningococcal Polysaccharide (groups A, C, Y and W-135) conjugate vaccine (MCV4P) 2008-11-26 00:00:00 Completed [facility] TDAP 2008-11-26 00:00:00 Completed [facility] Varicella (varivax)(chicken pox) 2008-11-26 00:00:00 Completed [facility] Meningococcal Polysaccharide (groups A, C, Y and W-135) conjugate vaccine (MCV4P) 2008-11-26 00:00:00 Completed [facility] TDAP 2008-11-26 00:00:00 Completed [facility] Varicella (varivax)(chicken pox) 2008-11-26 00:00:00 Completed [facility] Meningococcal Polysaccharide (groups A, C, Y and W-135) conjugate vaccine (MCV4P) 2008-11-26 00:00:00 Completed [facility] TDAP 2008-11-26 00:00:00 Completed [facility] Varicella (varivax)(chicken pox) 2008-11-26 00:00:00 Completed [facility] Meningococcal Polysaccharide (groups A, C, Y and W-135) conjugate vaccine (MCV4P) 2008-11-26 00:00:00 Completed [facility] TDAP 2008-11-26 00:00:00 Completed [facility] Varicella (varivax)(chicken pox) 2008-11-26 00:00:00 Completed [facility] Meningococcal Polysaccharide (groups A, C, Y and W-135) conjugate vaccine (MCV4P) 2008-11-26 00:00:00 Completed [facility] TDAP 2008-11-26 00:00:00 Completed [facility] Varicella (varivax)(chicken pox) 2008-11-26 00:00:00 Completed [facility] Meningococcal Polysaccharide (groups A, C, Y and W-135) conjugate vaccine (MCV4P) 2008-11-26 00:00:00 Completed [facility] MMR 2001-02-04 00:00:00 Completed [facility] IPV 2001-02-04 00:00:00 Completed [facility] DTaP, Unspecified Formulation 2001-02-04 00:00:00 Completed [facility] MMR 2001-02-04 00:00:00 Completed [facility] IPV 2001-02-04 00:00:00 Completed [facility] DTaP, Unspecified Formulation 2001-02-04 00:00:00 Completed [facility] MMR 2001-02-04 00:00:00 Completed [facility] IPV 2001-02-04 00:00:00 Completed [facility] DTaP, Unspecified Formulation 2001-02-04 00:00:00 Completed [facility] MMR 2001-02-04 00:00:00 Completed [facility] IPV 2001-02-04 00:00:00 Completed [facility] DTaP, Unspecified Formulation 2001-02-04 00:00:00 Completed [facility] MMR 2001-02-04 00:00:00 Completed [facility] IPV 2001-02-04 00:00:00 Completed [facility] DTaP, Unspecified Formulation 2001-02-04 00:00:00 Completed [facility] MMR 2001-02-04 00:00:00 Completed [facility] IPV 2001-02-04 00:00:00 Completed [facility] DTaP, Unspecified Formulation 2001-02-04 00:00:00 Completed [facility] MMR 2001-02-04 00:00:00 Completed [facility] IPV 2001-02-04 00:00:00 Completed [facility] DTaP, Unspecified Formulation 2001-02-04 00:00:00 Completed [facility] MMR 2001-02-04 00:00:00 Completed [facility] IPV 2001-02-04 00:00:00 Completed [facility] DTaP, Unspecified Formulation 2001-02-04 00:00:00 Completed [facility] MMR 2001-02-04 00:00:00 Completed [facility] IPV 2001-02-04 00:00:00 Completed [facility] DTaP, Unspecified Formulation 2001-02-04 00:00:00 Completed [facility] MMR 2001-02-04 00:00:00 Completed [facility] IPV 2001-02-04 00:00:00 Completed [facility] DTaP, Unspecified Formulation 2001-02-04 00:00:00 Completed [facility] MMR 2001-02-04 00:00:00 Completed [facility] IPV 2001-02-04 00:00:00 Completed [facility] DTaP, Unspecified Formulation 2001-02-04 00:00:00 Completed [facility] MMR 2001-02-04 00:00:00 Completed [facility] IPV 2001-02-04 00:00:00 Completed [facility] DTaP, Unspecified Formulation 2001-02-04 00:00:00 Completed [facility] MMR 2001-02-04 00:00:00 Completed [facility] IPV 2001-02-04 00:00:00 Completed [facility] DTaP, Unspecified Formulation 2001-02-04 00:00:00 Completed [facility] MMR 2001-02-04 00:00:00 Completed [facility] IPV 2001-02-04 00:00:00 Completed [facility] DTaP, Unspecified Formulation 2001-02-04 00:00:00 Completed [facility] MMR 2001-02-04 00:00:00 Completed [facility] IPV 2001-02-04 00:00:00 Completed [facility] DTaP, Unspecified Formulation 2001-02-04 00:00:00 Completed [facility] MMR 2001-02-04 00:00:00 Completed [facility] IPV 2001-02-04 00:00:00 Completed [facility] DTaP, Unspecified Formulation 2001-02-04 00:00:00 Completed [facility] MMR 2001-02-04 00:00:00 Completed [facility] IPV 2001-02-04 00:00:00 Completed [facility] DTaP, Unspecified Formulation 2001-02-04 00:00:00 Completed [facility] MMR 2001-02-04 00:00:00 Completed [facility] IPV 2001-02-04 00:00:00 Completed [facility] DTaP, Unspecified Formulation 2001-02-04 00:00:00 Completed [facility] MMR 2001-02-04 00:00:00 Completed [facility] IPV 2001-02-04 00:00:00 Completed [facility] DTaP, Unspecified Formulation 2001-02-04 00:00:00 Completed [facility] MMR 2001-02-04 00:00:00 Completed [facility] IPV 2001-02-04 00:00:00 Completed [facility] DTaP, Unspecified Formulation 2001-02-04 00:00:00 Completed [facility] MMR 2001-02-04 00:00:00 Completed [facility] IPV 2001-02-04 00:00:00 Completed [facility] DTaP, Unspecified Formulation 2001-02-04 00:00:00 Completed [facility] MMR 2001-02-04 00:00:00 Completed [facility] IPV 2001-02-04 00:00:00 Completed [facility] DTaP, Unspecified Formulation 2001-02-04 00:00:00 Completed [facility] MMR 1998-07-29 00:00:00 Completed [facility] DPT/HIB 1998-07-29 00:00:00 Completed [facility] MMR 1998-07-29 00:00:00 Completed [facility] DPT/HIB 1998-07-29 00:00:00 Completed [facility] MMR 1998-07-29 00:00:00 Completed [facility] DPT/HIB 1998-07-29 00:00:00 Completed [facility] MMR 1998-07-29 00:00:00 Completed [facility] DPT/HIB 1998-07-29 00:00:00 Completed [facility] MMR 1998-07-29 00:00:00 Completed [facility] DPT/HIB 1998-07-29 00:00:00 Completed [facility] MMR 1998-07-29 00:00:00 Completed [facility] DPT/HIB 1998-07-29 00:00:00 Completed [facility] MMR 1998-07-29 00:00:00 Completed [facility] DPT/HIB 1998-07-29 00:00:00 Completed [facility] MMR 1998-07-29 00:00:00 Completed [facility] DPT/HIB 1998-07-29 00:00:00 Completed [facility] MMR 1998-07-29 00:00:00 Completed [facility] DPT/HIB 1998-07-29 00:00:00 Completed [facility] MMR 1998-07-29 00:00:00 Completed [facility] DPT/HIB 1998-07-29 00:00:00 Completed [facility] MMR 1998-07-29 00:00:00 Completed [facility] DPT/HIB 1998-07-29 00:00:00 Completed [facility] MMR 1998-07-29 00:00:00 Completed [facility] DPT/HIB 1998-07-29 00:00:00 Completed [facility] MMR 1998-07-29 00:00:00 Completed [facility] DPT/HIB 1998-07-29 00:00:00 Completed [facility] MMR 1998-07-29 00:00:00 Completed [facility] DPT/HIB 1998-07-29 00:00:00 Completed [facility] MMR 1998-07-29 00:00:00 Completed [facility] DPT/HIB 1998-07-29 00:00:00 Completed [facility] MMR 1998-07-29 00:00:00 Completed [facility] DPT/HIB 1998-07-29 00:00:00 Completed [facility] MMR 1998-07-29 00:00:00 Completed [facility] DPT/HIB 1998-07-29 00:00:00 Completed [facility] MMR 1998-07-29 00:00:00 Completed [facility] DPT/HIB 1998-07-29 00:00:00 Completed [facility] MMR 1998-07-29 00:00:00 Completed [facility] DPT/HIB 1998-07-29 00:00:00 Completed [facility] MMR 1998-07-29 00:00:00 Completed [facility] DPT/HIB 1998-07-29 00:00:00 Completed [facility] MMR 1998-07-29 00:00:00 Completed [facility] DPT/HIB 1998-07-29 00:00:00 Completed [facility] MMR 1998-07-29 00:00:00 Completed [facility] DPT/HIB 1998-07-29 00:00:00 Completed [facility] Poliovirus, Live, Oral, Trivalent 1998-02-04 00:00:00 Completed [facility] Varicella (varivax)(chicken pox) 1998-02-04 00:00:00 Completed [facility] Poliovirus, Live, Oral, Trivalent 1998-02-04 00:00:00 Completed [facility] Varicella (varivax)(chicken pox) 1998-02-04 00:00:00 Completed [facility] Poliovirus, Live, Oral, Trivalent 1998-02-04 00:00:00 Completed [facility] Varicella (varivax)(chicken pox) 1998-02-04 00:00:00 Completed [facility] Poliovirus, Live, Oral, Trivalent 1998-02-04 00:00:00 Completed [facility] Varicella (varivax)(chicken pox) 1998-02-04 00:00:00 Completed [facility] Poliovirus, Live, Oral, Trivalent 1998-02-04 00:00:00 Completed [facility] Varicella (varivax)(chicken pox) 1998-02-04 00:00:00 Completed [facility] Poliovirus, Live, Oral, Trivalent 1998-02-04 00:00:00 Completed [facility] Varicella (varivax)(chicken pox) 1998-02-04 00:00:00 Completed [facility] Poliovirus, Live, Oral, Trivalent 1998-02-04 00:00:00 Completed [facility] Varicella (varivax)(chicken pox) 1998-02-04 00:00:00 Completed [facility] Poliovirus, Live, Oral, Trivalent 1998-02-04 00:00:00 Completed [facility] Varicella (varivax)(chicken pox) 1998-02-04 00:00:00 Completed [facility] Poliovirus, Live, Oral, Trivalent 1998-02-04 00:00:00 Completed [facility] Varicella (varivax)(chicken pox) 1998-02-04 00:00:00 Completed [facility] Poliovirus, Live, Oral, Trivalent 1998-02-04 00:00:00 Completed [facility] Varicella (varivax)(chicken pox) 1998-02-04 00:00:00 Completed [facility] Poliovirus, Live, Oral, Trivalent 1998-02-04 00:00:00 Completed [facility] Varicella (varivax)(chicken pox) 1998-02-04 00:00:00 Completed [facility] Poliovirus, Live, Oral, Trivalent 1998-02-04 00:00:00 Completed [facility] Varicella (varivax)(chicken pox) 1998-02-04 00:00:00 Completed [facility] Poliovirus, Live, Oral, Trivalent 1998-02-04 00:00:00 Completed [facility] Varicella (varivax)(chicken pox) 1998-02-04 00:00:00 Completed [facility] Poliovirus, Live, Oral, Trivalent 1998-02-04 00:00:00 Completed [facility] Varicella (varivax)(chicken pox) 1998-02-04 00:00:00 Completed [facility] Poliovirus, Live, Oral, Trivalent 1998-02-04 00:00:00 Completed [facility] Varicella (varivax)(chicken pox) 1998-02-04 00:00:00 Completed [facility] Poliovirus, Live, Oral, Trivalent 1998-02-04 00:00:00 Completed [facility] Varicella (varivax)(chicken pox) 1998-02-04 00:00:00 Completed [facility] Poliovirus, Live, Oral, Trivalent 1998-02-04 00:00:00 Completed [facility] Varicella (varivax)(chicken pox) 1998-02-04 00:00:00 Completed [facility] Poliovirus, Live, Oral, Trivalent 1998-02-04 00:00:00 Completed [facility] Varicella (varivax)(chicken pox) 1998-02-04 00:00:00 Completed [facility] Poliovirus, Live, Oral, Trivalent 1998-02-04 00:00:00 Completed [facility] Varicella (varivax)(chicken pox) 1998-02-04 00:00:00 Completed [facility] Poliovirus, Live, Oral, Trivalent 1998-02-04 00:00:00 Completed [facility] Varicella (varivax)(chicken pox) 1998-02-04 00:00:00 Completed [facility] Poliovirus, Live, Oral, Trivalent 1998-02-04 00:00:00 Completed [facility] Varicella (varivax)(chicken pox) 1998-02-04 00:00:00 Completed [facility] Poliovirus, Live, Oral, Trivalent 1998-02-04 00:00:00 Completed [facility] Varicella (varivax)(chicken pox) 1998-02-04 00:00:00 Completed [facility] Hep B, Adol or Pedi Dosage 1997-10-28 00:00:00 Completed [facility] Hep B, Adol or Pedi Dosage 1997-10-28 00:00:00 Completed [facility] Hep B, Adol or Pedi Dosage 1997-10-28 00:00:00 Completed [facility] Hep B, Adol or Pedi Dosage 1997-10-28 00:00:00 Completed [facility] Hep B, Adol or Pedi Dosage 1997-10-28 00:00:00 Completed [facility] Hep B, Adol or Pedi Dosage 1997-10-28 00:00:00 Completed [facility] Hep B, Adol or Pedi Dosage 1997-10-28 00:00:00 Completed [facility] Hep B, Adol or Pedi Dosage 1997-10-28 00:00:00 Completed [facility] Hep B, Adol or Pedi Dosage 1997-10-28 00:00:00 Completed [facility] Hep B, Adol or Pedi Dosage 1997-10-28 00:00:00 Completed [facility] Hep B, Adol or Pedi Dosage 1997-10-28 00:00:00 Completed [facility] Hep B, Adol or Pedi Dosage 1997-10-28 00:00:00 Completed [facility] Hep B, Adol or Pedi Dosage 1997-10-28 00:00:00 Completed [facility] Hep B, Adol or Pedi Dosage 1997-10-28 00:00:00 Completed [facility] Hep B, Adol or Pedi Dosage 1997-10-28 00:00:00 Completed [facility] Hep B, Adol or Pedi Dosage 1997-10-28 00:00:00 Completed [facility] Hep B, Adol or Pedi Dosage 1997-10-28 00:00:00 Completed [facility] Hep B, Adol or Pedi Dosage 1997-10-28 00:00:00 Completed [facility] Hep B, Adol or Pedi Dosage 1997-10-28 00:00:00 Completed [facility] Hep B, Adol or Pedi Dosage 1997-10-28 00:00:00 Completed [facility] Hep B, Adol or Pedi Dosage 1997-10-28 00:00:00 Completed [facility] Hep B, Adol or Pedi Dosage 1997-10-28 00:00:00 Completed [facility] DTaP, Unspecified Formulation 1997-06-29 00:00:00 Completed [facility] Hib-HbOC 1997-06-29 00:00:00 Completed [facility] DTaP, Unspecified Formulation 1997-06-29 00:00:00 Completed [facility] Hib-HbOC 1997-06-29 00:00:00 Completed [facility] DTaP, Unspecified Formulation 1997-06-29 00:00:00 Completed [facility] Hib-HbOC 1997-06-29 00:00:00 Completed [facility] DTaP, Unspecified Formulation 1997-06-29 00:00:00 Completed [facility] Hib-HbOC 1997-06-29 00:00:00 Completed [facility] DTaP, Unspecified Formulation 1997-06-29 00:00:00 Completed [facility] Hib-HbOC 1997-06-29 00:00:00 Completed [facility] DTaP, Unspecified Formulation 1997-06-29 00:00:00 Completed [facility] Hib-HbOC 1997-06-29 00:00:00 Completed [facility] DTaP, Unspecified Formulation 1997-06-29 00:00:00 Completed [facility] Hib-HbOC 1997-06-29 00:00:00 Completed [facility] DTaP, Unspecified Formulation 1997-06-29 00:00:00 Completed [facility] Hib-HbOC 1997-06-29 00:00:00 Completed [facility] DTaP, Unspecified Formulation 1997-06-29 00:00:00 Completed [facility] Hib-HbOC 1997-06-29 00:00:00 Completed [facility] DTaP, Unspecified Formulation 1997-06-29 00:00:00 Completed [facility] Hib-HbOC 1997-06-29 00:00:00 Completed [facility] DTaP, Unspecified Formulation 1997-06-29 00:00:00 Completed [facility] Hib-HbOC 1997-06-29 00:00:00 Completed [facility] DTaP, Unspecified Formulation 1997-06-29 00:00:00 Completed [facility] Hib-HbOC 1997-06-29 00:00:00 Completed [facility] DTaP, Unspecified Formulation 1997-06-29 00:00:00 Completed [facility] Hib-HbOC 1997-06-29 00:00:00 Completed [facility] DTaP, Unspecified Formulation 1997-06-29 00:00:00 Completed [facility] Hib-HbOC 1997-06-29 00:00:00 Completed [facility] DTaP, Unspecified Formulation 1997-06-29 00:00:00 Completed [facility] Hib-HbOC 1997-06-29 00:00:00 Completed [facility] DTaP, Unspecified Formulation 1997-06-29 00:00:00 Completed [facility] Hib-HbOC 1997-06-29 00:00:00 Completed [facility] DTaP, Unspecified Formulation 1997-06-29 00:00:00 Completed [facility] Hib-HbOC 1997-06-29 00:00:00 Completed [facility] DTaP, Unspecified Formulation 1997-06-29 00:00:00 Completed [facility] Hib-HbOC 1997-06-29 00:00:00 Completed [facility] DTaP, Unspecified Formulation 1997-06-29 00:00:00 Completed [facility] Hib-HbOC 1997-06-29 00:00:00 Completed [facility] DTaP, Unspecified Formulation 1997-06-29 00:00:00 Completed [facility] Hib-HbOC 1997-06-29 00:00:00 Completed [facility] DTaP, Unspecified Formulation 1997-06-29 00:00:00 Completed [facility] Hib-HbOC 1997-06-29 00:00:00 Completed [facility] DTaP, Unspecified Formulation 1997-06-29 00:00:00 Completed [facility] Hib-HbOC 1997-06-29 00:00:00 Completed [facility] Hib-HbOC 1997-04-19 00:00:00 Completed [facility] IPV 1997-04-19 00:00:00 Completed [facility] DTaP, Unspecified Formulation 1997-04-19 00:00:00 Completed [facility] Hib-HbOC 1997-04-19 00:00:00 Completed [facility] IPV 1997-04-19 00:00:00 Completed [facility] DTaP, Unspecified Formulation 1997-04-19 00:00:00 Completed [facility] Hib-HbOC 1997-04-19 00:00:00 Completed [facility] IPV 1997-04-19 00:00:00 Completed [facility] DTaP, Unspecified Formulation 1997-04-19 00:00:00 Completed [facility] Hib-HbOC 1997-04-19 00:00:00 Completed [facility] IPV 1997-04-19 00:00:00 Completed [facility] DTaP, Unspecified Formulation 1997-04-19 00:00:00 Completed [facility] Hib-HbOC 1997-04-19 00:00:00 Completed [facility] IPV 1997-04-19 00:00:00 Completed [facility] DTaP, Unspecified Formulation 1997-04-19 00:00:00 Completed [facility] Hib-HbOC 1997-04-19 00:00:00 Completed [facility] IPV 1997-04-19 00:00:00 Completed [facility] DTaP, Unspecified Formulation 1997-04-19 00:00:00 Completed [facility] Hib-HbOC 1997-04-19 00:00:00 Completed [facility] IPV 1997-04-19 00:00:00 Completed [facility] DTaP, Unspecified Formulation 1997-04-19 00:00:00 Completed [facility] Hib-HbOC 1997-04-19 00:00:00 Completed [facility] IPV 1997-04-19 00:00:00 Completed [facility] DTaP, Unspecified Formulation 1997-04-19 00:00:00 Completed [facility] Hib-HbOC 1997-04-19 00:00:00 Completed [facility] IPV 1997-04-19 00:00:00 Completed [facility] DTaP, Unspecified Formulation 1997-04-19 00:00:00 Completed [facility] Hib-HbOC 1997-04-19 00:00:00 Completed [facility] IPV 1997-04-19 00:00:00 Completed [facility] DTaP, Unspecified Formulation 1997-04-19 00:00:00 Completed [facility] Hib-HbOC 1997-04-19 00:00:00 Completed [facility] IPV 1997-04-19 00:00:00 Completed [facility] DTaP, Unspecified Formulation 1997-04-19 00:00:00 Completed [facility] Hib-HbOC 1997-04-19 00:00:00 Completed [facility] IPV 1997-04-19 00:00:00 Completed [facility] DTaP, Unspecified Formulation 1997-04-19 00:00:00 Completed [facility] Hib-HbOC 1997-04-19 00:00:00 Completed [facility] IPV 1997-04-19 00:00:00 Completed [facility] DTaP, Unspecified Formulation 1997-04-19 00:00:00 Completed [facility] Hib-HbOC 1997-04-19 00:00:00 Completed [facility] IPV 1997-04-19 00:00:00 Completed [facility] DTaP, Unspecified Formulation 1997-04-19 00:00:00 Completed [facility] Hib-HbOC 1997-04-19 00:00:00 Completed [facility] IPV 1997-04-19 00:00:00 Completed [facility] DTaP, Unspecified Formulation 1997-04-19 00:00:00 Completed [facility] Hib-HbOC 1997-04-19 00:00:00 Completed [facility] IPV 1997-04-19 00:00:00 Completed [facility] DTaP, Unspecified Formulation 1997-04-19 00:00:00 Completed [facility] Hib-HbOC 1997-04-19 00:00:00 Completed [facility] IPV 1997-04-19 00:00:00 Completed [facility] DTaP, Unspecified Formulation 1997-04-19 00:00:00 Completed [facility] Hib-HbOC 1997-04-19 00:00:00 Completed [facility] IPV 1997-04-19 00:00:00 Completed [facility] DTaP, Unspecified Formulation 1997-04-19 00:00:00 Completed [facility] Hib-HbOC 1997-04-19 00:00:00 Completed [facility] IPV 1997-04-19 00:00:00 Completed [facility] DTaP, Unspecified Formulation 1997-04-19 00:00:00 Completed [facility] Hib-HbOC 1997-04-19 00:00:00 Completed [facility] IPV 1997-04-19 00:00:00 Completed [facility] DTaP, Unspecified Formulation 1997-04-19 00:00:00 Completed [facility] Hib-HbOC 1997-04-19 00:00:00 Completed [facility] IPV 1997-04-19 00:00:00 Completed [facility] DTaP, Unspecified Formulation 1997-04-19 00:00:00 Completed [facility] Hib-HbOC 1997-04-19 00:00:00 Completed [facility] IPV 1997-04-19 00:00:00 Completed [facility] DTaP, Unspecified Formulation 1997-04-19 00:00:00 Completed [facility] Hib-HbOC 1997-02-10 00:00:00 Completed [facility] IPV 1997-02-10 00:00:00 Completed [facility] DTaP, Unspecified Formulation 1997-02-10 00:00:00 Completed [facility] Hib-HbOC 1997-02-10 00:00:00 Completed [facility] IPV 1997-02-10 00:00:00 Completed [facility] DTaP, Unspecified Formulation 1997-02-10 00:00:00 Completed [facility] Hib-HbOC 1997-02-10 00:00:00 Completed [facility] IPV 1997-02-10 00:00:00 Completed [facility] DTaP, Unspecified Formulation 1997-02-10 00:00:00 Completed [facility] Hib-HbOC 1997-02-10 00:00:00 Completed [facility] IPV 1997-02-10 00:00:00 Completed [facility] DTaP, Unspecified Formulation 1997-02-10 00:00:00 Completed [facility] Hib-HbOC 1997-02-10 00:00:00 Completed [facility] IPV 1997-02-10 00:00:00 Completed [facility] DTaP, Unspecified Formulation 1997-02-10 00:00:00 Completed [facility] Hib-HbOC 1997-02-10 00:00:00 Completed [facility] IPV 1997-02-10 00:00:00 Completed [facility] DTaP, Unspecified Formulation 1997-02-10 00:00:00 Completed [facility] Hib-HbOC 1997-02-10 00:00:00 Completed [facility] IPV 1997-02-10 00:00:00 Completed [facility] DTaP, Unspecified Formulation 1997-02-10 00:00:00 Completed [facility] Hib-HbOC 1997-02-10 00:00:00 Completed [facility] IPV 1997-02-10 00:00:00 Completed [facility] DTaP, Unspecified Formulation 1997-02-10 00:00:00 Completed [facility] Hib-HbOC 1997-02-10 00:00:00 Completed [facility] IPV 1997-02-10 00:00:00 Completed [facility] DTaP, Unspecified Formulation 1997-02-10 00:00:00 Completed [facility] Hib-HbOC 1997-02-10 00:00:00 Completed [facility] IPV 1997-02-10 00:00:00 Completed [facility] DTaP, Unspecified Formulation 1997-02-10 00:00:00 Completed [facility] Hib-HbOC 1997-02-10 00:00:00 Completed [facility] IPV 1997-02-10 00:00:00 Completed [facility] DTaP, Unspecified Formulation 1997-02-10 00:00:00 Completed [facility] Hib-HbOC 1997-02-10 00:00:00 Completed [facility] IPV 1997-02-10 00:00:00 Completed [facility] DTaP, Unspecified Formulation 1997-02-10 00:00:00 Completed [facility] Hib-HbOC 1997-02-10 00:00:00 Completed [facility] IPV 1997-02-10 00:00:00 Completed [facility] DTaP, Unspecified Formulation 1997-02-10 00:00:00 Completed [facility] Hib-HbOC 1997-02-10 00:00:00 Completed [facility] IPV 1997-02-10 00:00:00 Completed [facility] DTaP, Unspecified Formulation 1997-02-10 00:00:00 Completed [facility] Hib-HbOC 1997-02-10 00:00:00 Completed [facility] IPV 1997-02-10 00:00:00 Completed [facility] DTaP, Unspecified Formulation 1997-02-10 00:00:00 Completed [facility] Hib-HbOC 1997-02-10 00:00:00 Completed [facility] IPV 1997-02-10 00:00:00 Completed [facility] DTaP, Unspecified Formulation 1997-02-10 00:00:00 Completed [facility] Hib-HbOC 1997-02-10 00:00:00 Completed [facility] IPV 1997-02-10 00:00:00 Completed [facility] DTaP, Unspecified Formulation 1997-02-10 00:00:00 Completed [facility] Hib-HbOC 1997-02-10 00:00:00 Completed [facility] IPV 1997-02-10 00:00:00 Completed [facility] DTaP, Unspecified Formulation 1997-02-10 00:00:00 Completed [facility] Hib-HbOC 1997-02-10 00:00:00 Completed [facility] IPV 1997-02-10 00:00:00 Completed [facility] DTaP, Unspecified Formulation 1997-02-10 00:00:00 Completed [facility] Hib-HbOC 1997-02-10 00:00:00 Completed [facility] IPV 1997-02-10 00:00:00 Completed [facility] DTaP, Unspecified Formulation 1997-02-10 00:00:00 Completed [facility] Hib-HbOC 1997-02-10 00:00:00 Completed [facility] IPV 1997-02-10 00:00:00 Completed [facility] DTaP, Unspecified Formulation 1997-02-10 00:00:00 Completed [facility] Hib-HbOC 1997-02-10 00:00:00 Completed [facility] IPV 1997-02-10 00:00:00 Completed [facility] DTaP, Unspecified Formulation 1997-02-10 00:00:00 Completed [facility] Hep B, Adol or Pedi Dosage 1997-01-19 00:00:00 Completed [facility] Hep B, Adol or Pedi Dosage 1997-01-19 00:00:00 Completed [facility] Hep B, Adol or Pedi Dosage 1997-01-19 00:00:00 Completed [facility] Hep B, Adol or Pedi Dosage 1997-01-19 00:00:00 Completed [facility] Hep B, Adol or Pedi Dosage 1997-01-19 00:00:00 Completed [facility] Hep B, Adol or Pedi Dosage 1997-01-19 00:00:00 Completed [facility] Hep B, Adol or Pedi Dosage 1997-01-19 00:00:00 Completed [facility] Hep B, Adol or Pedi Dosage 1997-01-19 00:00:00 Completed [facility] Hep B, Adol or Pedi Dosage 1997-01-19 00:00:00 Completed [facility] Hep B, Adol or Pedi Dosage 1997-01-19 00:00:00 Completed [facility] Hep B, Adol or Pedi Dosage 1997-01-19 00:00:00 Completed [facility] Hep B, Adol or Pedi Dosage 1997-01-19 00:00:00 Completed [facility] Hep B, Adol or Pedi Dosage 1997-01-19 00:00:00 Completed [facility] Hep B, Adol or Pedi Dosage 1997-01-19 00:00:00 Completed [facility] Hep B, Adol or Pedi Dosage 1997-01-19 00:00:00 Completed [facility] Hep B, Adol or Pedi Dosage 1997-01-19 00:00:00 Completed [facility] Hep B, Adol or Pedi Dosage 1997-01-19 00:00:00 Completed [facility] Hep B, Adol or Pedi Dosage 1997-01-19 00:00:00 Completed [facility] Hep B, Adol or Pedi Dosage 1997-01-19 00:00:00 Completed [facility] Hep B, Adol or Pedi Dosage 1997-01-19 00:00:00 Completed [facility] Hep B, Adol or Pedi Dosage 1997-01-19 00:00:00 Completed [facility] Hep B, Adol or Pedi Dosage 1997-01-19 00:00:00 Completed [facility] Hep B, Adol or Pedi Dosage 1996 00:00:00 Completed [facility] Hep B, Adol or Pedi Dosage 1996 00:00:00 Completed [facility] Hep B, Adol or Pedi Dosage 1996 00:00:00 Completed [facility] Hep B, Adol or Pedi Dosage 1996 00:00:00 Completed [facility] Hep B, Adol or Pedi Dosage 1996 00:00:00 Completed [facility] Hep B, Adol or Pedi Dosage 1996 00:00:00 Completed [facility] Hep B, Adol or Pedi Dosage 1996 00:00:00 Completed [facility] Hep B, Adol or Pedi Dosage 1996 00:00:00 Completed [facility] Hep B, Adol or Pedi Dosage 1996 00:00:00 Completed [facility] Hep B, Adol or Pedi Dosage 1996 00:00:00 Completed [facility] Hep B, Adol or Pedi Dosage 1996 00:00:00 Completed [facility] Hep B, Adol or Pedi Dosage 1996 00:00:00 Completed [facility] Hep B, Adol or Pedi Dosage 1996 00:00:00 Completed [facility] Hep B, Adol or Pedi Dosage 1996 00:00:00 Completed [facility] Hep B, Adol or Pedi Dosage 1996 00:00:00 Completed [facility] Hep B, Adol or Pedi Dosage 1996 00:00:00 Completed [facility] Hep B, Adol or Pedi Dosage 1996 00:00:00 Completed [facility] Hep B, Adol or Pedi Dosage 1996 00:00:00 Completed [facility] Hep B, Adol or Pedi Dosage 1996 00:00:00 Completed [facility] Hep B, Adol or Pedi Dosage 1996 00:00:00 Completed [facility] Hep B, Adol or Pedi Dosage 1996 00:00:00 Completed [facility] Hep B, Adol or Pedi Dosage 1996 00:00:00 Completed [facility] TDAP Unknown Completed [facility] HPV9 Unknown Completed [facility] Influenza Virus Vaccine Quad .5 mL IM 6+ MO (FLUZONE/FLULAVAL/FL UARIX) Unknown Completed [facility] DTaP, Unspecified Formulation Unknown Completed [facility] DPT/HIB Unknown Completed [facility] Hep B, Adol or Pedi Dosage Unknown Completed [facility] Hib-HbOC Unknown Completed [facility] Meningococcal Polysaccharide (groups A, C, Y and W-135) conjugate vaccine (MCV4P) Unknown Completed [facility] MMR Unknown Completed [facility] IPV Unknown Completed [facility] Poliovirus, Live, Oral, Trivalent Unknown Completed [facility] Varicella (varivax)(chicken pox) Unknown Completed [facility] TDAP Unknown Completed [facility] HPV9 Unknown Completed [facility] Influenza Virus Vaccine Quad .5 mL IM 6+ MO (FLUZONE/FLULAVAL/FL UARIX) Unknown Completed [facility] DTaP, Unspecified Formulation Unknown Completed [facility] DPT/HIB Unknown Completed [facility] Hep B, Adol or Pedi Dosage Unknown Completed [facility] Hib-HbOC Unknown Completed [facility] Meningococcal Polysaccharide (groups A, C, Y and W-135) conjugate vaccine (MCV4P) Unknown Completed [facility] MMR Unknown Completed [facility] IPV Unknown Completed [facility] Poliovirus, Live, Oral, Trivalent Unknown Completed [facility] Varicella (varivax)(chicken pox) Unknown Completed [facility] TDAP Unknown Completed [facility] HPV9 Unknown Completed [facility] Influenza Virus Vaccine Quad .5 mL IM 6+ MO (FLUZONE/FLULAVAL/FL UARIX) Unknown Completed [facility] DTaP, Unspecified Formulation Unknown Completed [facility] DPT/HIB Unknown Completed [facility] Hep B, Adol or Pedi Dosage Unknown Completed [facility] Hib-HbOC Unknown Completed [facility] Meningococcal Polysaccharide (groups A, C, Y and W-135) conjugate vaccine (MCV4P) Unknown Completed [facility] MMR Unknown Completed [facility] IPV Unknown Completed [facility] Poliovirus, Live, Oral, Trivalent Unknown Completed [facility] Varicella (varivax)(chicken pox) Unknown Completed [facility] TDAP Unknown Completed [facility] HPV9 Unknown Completed [facility] Influenza Virus Vaccine Quad .5 mL IM 6+ MO (FLUZONE/FLULAVAL/FL UARIX) Unknown Completed [facility] DTaP, Unspecified Formulation Unknown Completed [facility] DPT/HIB Unknown Completed [facility] Hep B, Adol or Pedi Dosage Unknown Completed [facility] Hib-HbOC Unknown Completed [facility] Meningococcal Polysaccharide (groups A, C, Y and W-135) conjugate vaccine (MCV4P) Unknown Completed [facility] MMR Unknown Completed [facility] IPV Unknown Completed [facility] Poliovirus, Live, Oral, Trivalent Unknown Completed [facility] Varicella (varivax)(chicken pox) Unknown Completed [facility] TDAP Unknown Completed [facility] HPV9 Unknown Completed [facility] Influenza Virus Vaccine Quad .5 mL IM 6+ MO (FLUZONE/FLULAVAL/FL UARIX) Unknown Completed [facility] DTaP, Unspecified Formulation Unknown Completed [facility] DPT/HIB Unknown Completed [facility] Hep B, Adol or Pedi Dosage Unknown Completed [facility] Hib-HbOC Unknown Completed [facility] Meningococcal Polysaccharide (groups A, C, Y and W-135) conjugate vaccine (MCV4P) Unknown Completed [facility] MMR Unknown Completed [facility] IPV Unknown Completed [facility] Poliovirus, Live, Oral, Trivalent Unknown Completed [facility] Varicella (varivax)(chicken pox) Unknown Completed [facility] TDAP Unknown Completed [facility] HPV9 Unknown Completed [facility] Influenza Virus Vaccine Quad .5 mL IM 6+ MO (FLUZONE/FLULAVAL/FL UARIX) Unknown Completed [facility] DTaP, Unspecified Formulation Unknown Completed [facility] DPT/HIB Unknown Completed [facility] Hep B, Adol or Pedi Dosage Unknown Completed [facility] Hib-HbOC Unknown Completed [facility] Meningococcal Polysaccharide (groups A, C, Y and W-135) conjugate vaccine (MCV4P) Unknown Completed [facility] MMR Unknown Completed [facility] IPV Unknown Completed [facility] Poliovirus, Live, Oral, Trivalent Unknown Completed [facility] Varicella (varivax)(chicken pox) Unknown Completed [facility] TDAP Unknown Completed [facility] HPV9 Unknown Completed [facility] Influenza Virus Vaccine Quad .5 mL IM 6+ MO (FLUZONE/FLULAVAL/FL UARIX) Unknown Completed [facility] DTaP, Unspecified Formulation Unknown Completed [facility] DPT/HIB Unknown Completed [facility] Hep B, Adol or Pedi Dosage Unknown Completed [facility] Hib-HbOC Unknown Completed [facility] Meningococcal Polysaccharide (groups A, C, Y and W-135) conjugate vaccine (MCV4P) Unknown Completed [facility] MMR Unknown Completed [facility] IPV Unknown Completed [facility] Poliovirus, Live, Oral, Trivalent Unknown Completed [facility] Varicella (varivax)(chicken pox) Unknown Completed [facility] TDAP Unknown Completed [facility] HPV9 Unknown Completed [facility] Influenza Virus Vaccine Quad .5 mL IM 6+ MO (FLUZONE/FLULAVAL/FL UARIX) Unknown Completed [facility] DTaP, Unspecified Formulation Unknown Completed [facility] DPT/HIB Unknown Completed [facility] Hep B, Adol or Pedi Dosage Unknown Completed [facility] Hib-HbOC Unknown Completed [facility] Meningococcal Polysaccharide (groups A, C, Y and W-135) conjugate vaccine (MCV4P) Unknown Completed [facility] MMR Unknown Completed [facility] IPV Unknown Completed [facility] Poliovirus, Live, Oral, Trivalent Unknown Completed [facility] Varicella (varivax)(chicken pox) Unknown Completed [facility] TDAP Unknown Completed [facility] HPV9 Unknown Completed [facility] Influenza Virus Vaccine Quad .5 mL IM 6+ MO (FLUZONE/FLULAVAL/FL UARIX) Unknown Completed [facility] DTaP, Unspecified Formulation Unknown Completed [facility] DPT/HIB Unknown Completed [facility] Hep B, Adol or Pedi Dosage Unknown Completed [facility] Hib-HbOC Unknown Completed [facility] Meningococcal Polysaccharide (groups A, C, Y and W-135) conjugate vaccine (MCV4P) Unknown Completed [facility] MMR Unknown Completed [facility] IPV Unknown Completed [facility] Poliovirus, Live, Oral, Trivalent Unknown Completed [facility] Varicella (varivax)(chicken pox) Unknown Completed [facility] TDAP Unknown Completed [facility] HPV9 Unknown Completed [facility] Influenza Virus Vaccine Quad .5 mL IM 6+ MO (FLUZONE/FLULAVAL/FL UARIX) Unknown Completed [facility] DTaP, Unspecified Formulation Unknown Completed [facility] DPT/HIB Unknown Completed [facility] Hep B, Adol or Pedi Dosage Unknown Completed [facility] Hib-HbOC Unknown Completed [facility] Meningococcal Polysaccharide (groups A, C, Y and W-135) conjugate vaccine (MCV4P) Unknown Completed [facility] MMR Unknown Completed [facility] IPV Unknown Completed [facility] Poliovirus, Live, Oral, Trivalent Unknown Completed [facility] Varicella (varivax)(chicken pox) Unknown Completed [facility] TDAP Unknown Completed [facility] HPV9 Unknown Completed [facility] Influenza Virus Vaccine Quad .5 mL IM 6+ MO (FLUZONE/FLULAVAL/FL UARIX) Unknown Completed [facility] DTaP, Unspecified Formulation Unknown Completed [facility] DPT/HIB Unknown Completed [facility] Hep B, Adol or Pedi Dosage Unknown Completed [facility] Hib-HbOC Unknown Completed [facility] Meningococcal Polysaccharide (groups A, C, Y and W-135) conjugate vaccine (MCV4P) Unknown Completed [facility] MMR Unknown Completed [facility] IPV Unknown Completed [facility] Poliovirus, Live, Oral, Trivalent Unknown Completed [facility] Varicella (varivax)(chicken pox) Unknown Completed [facility] TDAP Unknown Completed [facility] HPV9 Unknown Completed [facility] Influenza Virus Vaccine Quad .5 mL IM 6+ MO (FLUZONE/FLULAVAL/FL UARIX) Unknown Completed [facility] DTaP, Unspecified Formulation Unknown Completed [facility] DPT/HIB Unknown Completed [facility] Hep B, Adol or Pedi Dosage Unknown Completed [facility] Hib-HbOC Unknown Completed [facility] Meningococcal Polysaccharide (groups A, C, Y and W-135) conjugate vaccine (MCV4P) Unknown Completed [facility] MMR Unknown Completed [facility] IPV Unknown Completed [facility] Poliovirus, Live, Oral, Trivalent Unknown Completed [facility] Varicella (varivax)(chicken pox) Unknown Completed [facility] TDAP Unknown Completed [facility] HPV9 Unknown Completed [facility] Influenza Virus Vaccine Quad .5 mL IM 6+ MO (FLUZONE/FLULAVAL/FL UARIX) Unknown Completed [facility] DTaP, Unspecified Formulation Unknown Completed [facility] DPT/HIB Unknown Completed [facility] Hep B, Adol or Pedi Dosage Unknown Completed [facility] Hib-HbOC Unknown Completed [facility] Meningococcal Polysaccharide (groups A, C, Y and W-135) conjugate vaccine (MCV4P) Unknown Completed [facility] MMR Unknown Completed [facility] IPV Unknown Completed [facility] Poliovirus, Live, Oral, Trivalent Unknown Completed [facility] Varicella (varivax)(chicken pox) Unknown Completed [facility] TDAP Unknown Completed [facility] HPV9 Unknown Completed [facility] Influenza Virus Vaccine Quad .5 mL IM 6+ MO (FLUZONE/FLULAVAL/FL UARIX) Unknown Completed [facility] DTaP, Unspecified Formulation Unknown Completed [facility] DPT/HIB Unknown Completed [facility] Hep B, Adol or Pedi Dosage Unknown Completed [facility] Hib-HbOC Unknown Completed [facility] Meningococcal Polysaccharide (groups A, C, Y and W-135) conjugate vaccine (MCV4P) Unknown Completed [facility] MMR Unknown Completed [facility] IPV Unknown Completed [facility] Poliovirus, Live, Oral, Trivalent Unknown Completed [facility] Varicella (varivax)(chicken pox) Unknown Completed [facility] TDAP Unknown Completed [facility] HPV9 Unknown Completed [facility] Influenza Virus Vaccine Quad .5 mL IM 6+ MO (FLUZONE/FLULAVAL/FL UARIX) Unknown Completed [facility] DTaP, Unspecified Formulation Unknown Completed [facility] DPT/HIB Unknown Completed [facility] Hep B, Adol or Pedi Dosage Unknown Completed [facility] Hib-HbOC Unknown Completed [facility] Meningococcal Polysaccharide (groups A, C, Y and W-135) conjugate vaccine (MCV4P) Unknown Completed [facility] MMR Unknown Completed [facility] IPV Unknown Completed [facility] Poliovirus, Live, Oral, Trivalent Unknown Completed [facility] Varicella (varivax)(chicken pox) Unknown Completed [facility] DPT/HIB Unknown Completed [facility] Meningococcal Polysaccharide (groups A, C, Y and W-135) conjugate vaccine (MCV4P) Unknown Completed [facility] Poliovirus, Live, Oral, Trivalent Unknown Completed [facility] TDAP Unknown Completed [facility] HPV9 Unknown Completed [facility] Influenza Virus Vaccine Quad .5 mL IM 6+ MO (FLUZONE/FLULAVAL/FL UARIX) Unknown Completed [facility] DTaP, Unspecified Formulation Unknown Completed [facility] Hep B, Adol or Pedi Dosage Unknown Completed [facility] Hib-HbOC Unknown Completed [facility] MMR Unknown Completed [facility] IPV Unknown Completed [facility] Varicella (varivax)(chicken pox) Unknown Completed [facility] TDAP Unknown Completed [facility] HPV9 Unknown Completed [facility] Influenza Virus Vaccine Quad .5 mL IM 6+ MO (FLUZONE/FLULAVAL/FL UARIX) Unknown Completed [facility] DTaP, Unspecified Formulation Unknown Completed [facility] DPT/HIB Unknown Completed [facility] Hep B, Adol or Pedi Dosage Unknown Completed [facility] Hib-HbOC Unknown Completed [facility] Meningococcal Polysaccharide (groups A, C, Y and W-135) conjugate vaccine (MCV4P) Unknown Completed [facility] MMR Unknown Completed [facility] IPV Unknown Completed [facility] Poliovirus, Live, Oral, Trivalent Unknown Completed [facility] Varicella (varivax)(chicken pox) Unknown Completed [facility] TDAP Unknown Completed [facility] HPV9 Unknown Completed [facility] Influenza Virus Vaccine Quad .5 mL IM 6+ MO (FLUZONE/FLULAVAL/FL UARIX) Unknown Completed [facility] DTaP, Unspecified Formulation Unknown Completed [facility] DPT/HIB Unknown Completed [facility] Hep B, Adol or Pedi Dosage Unknown Completed [facility] Hib-HbOC Unknown Completed [facility] Meningococcal Polysaccharide (groups A, C, Y and W-135) conjugate vaccine (MCV4P) Unknown Completed [facility] MMR Unknown Completed [facility] IPV Unknown Completed [facility] Poliovirus, Live, Oral, Trivalent Unknown Completed [facility] Varicella (varivax)(chicken pox) Unknown Completed [facility] TDAP Unknown Completed [facility] HPV9 Unknown Completed [facility] Influenza Virus Vaccine Quad .5 mL IM 6+ MO (FLUZONE/FLULAVAL/FL UARIX) Unknown Completed [facility] DTaP, Unspecified Formulation Unknown Completed [facility] DPT/HIB Unknown Completed [facility] Hep B, Adol or Pedi Dosage Unknown Completed [facility] Hib-HbOC Unknown Completed [facility] Meningococcal Polysaccharide (groups A, C, Y and W-135) conjugate vaccine (MCV4P) Unknown Completed [facility] MMR Unknown Completed [facility] IPV Unknown Completed [facility] Poliovirus, Live, Oral, Trivalent Unknown Completed [facility] Varicella (varivax)(chicken pox) Unknown Completed [facility] TDAP Unknown Completed [facility] HPV9 Unknown Completed [facility] Influenza Virus Vaccine Quad .5 mL IM 6+ MO (FLUZONE/FLULAVAL/FL UARIX) Unknown Completed [facility] DTaP, Unspecified Formulation Unknown Completed [facility] DPT/HIB Unknown Completed [facility] Hep B, Adol or Pedi Dosage Unknown Completed [facility] Hib-HbOC Unknown Completed [facility] Meningococcal Polysaccharide (groups A, C, Y and W-135) conjugate vaccine (MCV4P) Unknown Completed [facility] MMR Unknown Completed [facility] IPV Unknown Completed [facility] Poliovirus, Live, Oral, Trivalent Unknown Completed [facility] Varicella (varivax)(chicken pox) Unknown Completed [facility] DPT/HIB Unknown Completed [facility] Meningococcal Polysaccharide (groups A, C, Y and W-135) conjugate vaccine (MCV4P) Unknown Completed [facility] Poliovirus, Live, Oral, Trivalent Unknown Completed [facility] TDAP Unknown Completed [facility] HPV9 Unknown Completed [facility] Influenza Virus Vaccine Quad .5 mL IM 6+ MO (FLUZONE/FLULAVAL/FL UARIX) Unknown Completed [facility] DTaP, Unspecified Formulation Unknown Completed [facility] Hep B, Adol or Pedi Dosage Unknown Completed [facility] Hib-HbOC Unknown Completed [facility] MMR Unknown Completed [facility] IPV Unknown Completed [facility] Varicella (varivax)(chicken pox) Unknown Completed [facility] DTaP, Unspecified Formulation Unknown Completed [facility] DPT/HIB Unknown Completed [facility] Hep B, Adol or Pedi Dosage Unknown Completed [facility] Hib-HbOC Unknown Completed [facility] Meningococcal Polysaccharide (groups A, C, Y and W-135) conjugate vaccine (MCV4P) Unknown Completed [facility] MMR Unknown Completed [facility] IPV Unknown Completed [facility] Poliovirus, Live, Oral, Trivalent Unknown Completed [facility] Varicella (varivax)(chicken pox) Unknown Completed [facility] TDAP Unknown Completed [facility] HPV9 Unknown Completed [facility] Influenza Virus Vaccine Quad .5 mL IM 6+ MO (FLUZONE/FLULAVAL/FL UARIX) Unknown Completed [facility] TDAP Unknown Completed [facility] HPV9 Unknown Completed [facility] Influenza Virus Vaccine Quad .5 mL IM 6+ MO (FLUZONE/FLULAVAL/FL UARIX) Unknown Completed [facility] DTaP, Unspecified Formulation Unknown Completed [facility] DPT/HIB Unknown Completed [facility] Hep B, Adol or Pedi Dosage Unknown Completed [facility] Hib-HbOC Unknown Completed [facility] Meningococcal Polysaccharide (groups A, C, Y and W-135) conjugate vaccine (MCV4P) Unknown Completed [facility] MMR Unknown Completed [facility] IPV Unknown Completed [facility] Poliovirus, Live, Oral, Trivalent Unknown Completed [facility] Varicella (varivax)(chicken pox) Unknown Completed [facility] TDAP Unknown Completed [facility] HPV9 Unknown Completed [facility] Influenza Virus Vaccine Quad .5 mL IM 6+ MO (FLUZONE/FLULAVAL/FL UARIX) Unknown Completed [facility] DTaP, Unspecified Formulation Unknown Completed [facility] DPT/HIB Unknown Completed [facility] Hep B, Adol or Pedi Dosage Unknown Completed [facility] Hib-HbOC Unknown Completed [facility] Meningococcal Polysaccharide (groups A, C, Y and W-135) conjugate vaccine (MCV4P) Unknown Completed [facility] MMR Unknown Completed [facility] IPV Unknown Completed [facility] Poliovirus, Live, Oral, Trivalent Unknown Completed [facility] Varicella (varivax)(chicken pox) Unknown Completed [facility] TDAP Unknown Completed [facility] HPV9 Unknown Completed [facility] Influenza Virus Vaccine Quad .5 mL IM 6+ MO (FLUZONE/FLULAVAL/FL UARIX) Unknown Completed [facility] DTaP, Unspecified Formulation Unknown Completed [facility] DPT/HIB Unknown Completed [facility] Hep B, Adol or Pedi Dosage Unknown Completed [facility] Hib-HbOC Unknown Completed [facility] Meningococcal Polysaccharide (groups A, C, Y and W-135) conjugate vaccine (MCV4P) Unknown Completed [facility] MMR Unknown Completed [facility] IPV Unknown Completed [facility] Poliovirus, Live, Oral, Trivalent Unknown Completed [facility] Varicella (varivax)(chicken pox) Unknown Completed [facility] DPT/HIB Unknown Completed [facility] Meningococcal Polysaccharide (groups A, C, Y and W-135) conjugate vaccine (MCV4P) Unknown Completed [facility] Poliovirus, Live, Oral, Trivalent Unknown Completed [facility] TDAP Unknown Completed [facility] HPV9 Unknown Completed [facility] Influenza Virus Vaccine Quad .5 mL IM 6+ MO (FLUZONE/FLULAVAL/FL UARIX) Unknown Completed [facility] DTaP, Unspecified Formulation Unknown Completed [facility] Hep B, Adol or Pedi Dosage Unknown Completed [facility] Hib-HbOC Unknown Completed [facility] MMR Unknown Completed [facility] IPV Unknown Completed [facility] Varicella (varivax)(chicken pox) Unknown Completed [facility] Vital Signs Vital Name Observation Time Observation Value Comments S ource Systolic blood pressure 2023-12-04 19:21:00 108 mm[Hg] [facility] Diastolic blood pressure 2023-12-04 19:21:00 69 mm[Hg] [facility] Heart rate 2023-12-04 19:21:00 75 /min [facility] Body temperature 2023-12-04 19:21:00 36.78 Mariella [facility] Respiratory rate 2023-12-04 19:21:00 18 /min [facility] Body height 2023-12-04 19:21:00 167.6 cm [facility] Body weight 2023-12-04 19:21:00 73.483 kg [facility] BMI 2023-12-04 19:21:00 26.15 kg/m2 [facility] Systolic blood pressure 2023-11-13 22:30:00 130 mm[Hg] [facility] Diastolic blood pressure 2023-11-13 22:30:00 80 mm[Hg] [facility] Heart rate 2023-11-13 22:30:00 93 /min [facility] Body temperature 2023-11-13 22:30:00 36.11 Mariella [facility] Body height 2023-11-13 22:30:00 170.2 cm [facility] Body weight 2023-11-13 22:30:00 72.303 kg [facility] BMI 2023-11-13 22:30:00 24.97 kg/m2 [facility] Systolic blood pressure 2023-11-06 21:08:00 110 mm[Hg] [facility] Diastolic blood pressure 2023-11-06 21:08:00 68 mm[Hg] [facility] Heart rate 2023-11-06 21:08:00 75 /min Un[facility] Body temperature 2023-11-06 21:08:00 36.61 Mariella [facility] Respiratory rate 2023-11-06 21:08:00 17 /min [facility] Body height 2023-11-06 21:08:00 170.2 cm [facility] Body weight 2023-11-06 21:08:00 75.116 kg [facility] BMI 2023-11-06 21:08:00 25.94 kg/m2 [facility] Systolic blood pressure 2023-10-25 19:24:00 106 mm[Hg] [facility] Diastolic blood pressure 2023-10-25 19:24:00 71 mm[Hg] [facility] Heart rate 2023-10-25 19:24:00 87 /min Unive [facility] Body temperature 2023-10-25 19:24:00 36.72 Mariella [facility] Respiratory rate 2023-10-25 19:24:00 16 /min [facility] Body height 2023-10-25 19:24:00 170.2 cm [facility] Body weight 2023-10-25 19:24:00 75.297 kg [facility] BMI 2023-10-25 19:24:00 26.00 kg/m2 [facility] Systolic blood pressure 2023-09-27 15:00:00 106 mm[Hg] [facility] Diastolic blood pressure 2023-09-27 15:00:00 64 mm[Hg] [facility] Heart rate 2023-09-27 15:00:00 61 /min Un[facility] Body temperature 2023-09-27 15:00:00 36.33 Mariella [facility] Respiratory rate 2023-09-27 15:00:00 18 /min [facility] Oxygen saturation in Arterial blood by Pulse oximetry 2023-09-27 15:00:00 98 /min [facility] Body height 2023-09-25 14:00:00 170.2 cm [facility] Body weight 2023-09-25 14:00:00 80.74 kg [facility] BMI 2023-09-25 14:00:00 27.88 kg/m2 [facility] Systolic blood pressure 2023-09-20 20:39:00 104 mm[Hg] [facility] Diastolic blood pressure 2023-09-20 20:39:00 66 mm[Hg] [facility] Heart rate 2023-09-20 20:39:00 89 /min Un[facility] Respiratory rate 2023-09-20 20:39:00 18 /min [facility] Body height 2023-09-20 20:39:00 170.2 cm [facility] Body weight 2023-09-20 20:39:00 80.287 kg [facility] BMI 2023-09-20 20:39:00 27.72 kg/m2 [facility] Systolic blood pressure 2023-09-13 16:29:00 107 mm[Hg] [facility] Diastolic blood pressure 2023-09-13 16:29:00 72 mm[Hg] [facility] Heart rate 2023-09-13 16:29:00 98 /min [facility] [place] [facility] Respiratory rate 2023-09-13 16:29:00 18 /min [facility] Body height 2023-09-13 16:29:00 170.2 cm [facility] Body weight 2023-09-13 16:29:00 77.565 kg [facility] BMI 2023-09-13 16:29:00 26.78 kg/m2 [facility] Systolic blood pressure 2023-08-23 19:08:00 126 mm[Hg] [facility] Diastolic blood pressure 2023-08-23 19:08:00 84 mm[Hg] [facility] Heart rate 2023-08-23 19:08:00 99 /[facility] 2023-08-23 19:08:00 18 /min [facility] Body height 2023-08-23 19:08:00 170.2 [facility] weight 2023-08-23 19:08:00 78.019 [facility] BMI 2023-08-23 19:08:00 26.94 kg/m2 [facility] Systolic blood pressure 2023-08-09 18:33:00 120 mm[Hg] [place] [facility] Diastolic blood pressure 2023-08-09 18:33:00 70 mm[Hg] [facility] Heart rate 2023-08-09 18:33:00 71 /min [facility] Res[facility] 2023-08-09 18:33:00 18 /min [facility] Body height 2023-08-09 18:33:00 170.2 cm [facility] Body weight 2023-08-09 18:33:00 78.926 kg [facility] BMI 2023-08-09 18:33:00 27.25 kg/m2 [facility] Systolic blood pressure 2023-07-19 17:08:00 126 mm[Hg] [facility] Diastolic blood pressure 2023-07-19 17:08:00 82 mm[Hg] [facility] Heart rate 2023-07-19 17:08:00 94 /min [facility] Res[facility] 2023-07-19 17:08:00 18 /min [facility] Body height 2023-07-19 17:08:00 170.2 cm [facility] Body weight 2023-07-19 17:08:00 79.379 kg [facility] BMI 2023-07-19 17:08:00 27.41 kg/m2 [facility] Systolic blood pressure 2023-06-14 16:26:00 114 mm[Hg] [place] [facility] Diastolic blood pressure 2023-06-14 16:26:00 75 mm[Hg] [facility] Heart rate 2023-06-14 16:26:00 75 /min [facility] Respiratory rate 2023-06-14 16:26:00 18 /min [facility] Body height 2023-06-14 16:26:00 170.2 cm [facility] Body weight 2023-06-14 16:26:00 75.297 kg [facility] BMI 2023-06-14 16:26:00 26.00 kg/m2 [facility] Systolic blood pressure 2023-05-17 16:06:00 119 mm[Hg] [facility] Diastolic blood pressure 2023-05-17 16:06:00 73 mm[Hg] [facility] Heart rate 2023-05-17 16:06:00 116 /min Un[facility] Respiratory rate 2023-05-17 16:06:00 18 /min [facility] Body height 2023-05-17 16:06:00 170.2 cm [facility] Body weight 2023-05-17 16:06:00 73.029 kg [facility] BMI 2023-05-17 16:06:00 25.22 kg/m2 [facility] Systolic blood pressure 2023-05-07 01:50:00 115 mm[Hg] [facility] Diastolic blood pressure 2023-05-07 01:50:00 70 mm[Hg] [facility] Heart rate 2023-05-07 01:50:00 93 /min Un[facility] Body temperature 2023-05-07 01:50:00 37.28 Mariella [facility] Respiratory rate 2023-05-07 01:50:00 16 /min [facility] Body height 2023-05-07 01:50:00 170.2 cm [facility] Body weight 2023-05-07 01:50:00 68.947 kg [facility] BMI 2023-05-07 01:50:00 23.81 kg/m2 [facility] Oxygen saturation in Arterial blood by Pulse oximetry 2023-05-07 01:50:00 96 /min [facility] Systolic blood pressure 2023-04-19 15:37:00 125 mm[Hg] [facility] Diastolic blood pressure 2023-04-19 15:37:00 81 mm[Hg] [facility] Heart rate 2023-04-19 15:37:00 97 /min [facility] Body height 2023-04-19 15:37:00 170.2 cm [facility] Body weight 2023-04-19 15:37:00 71.487 kg [facility] BMI 2023-04-19 15:37:00 24.68 kg/m2 [facility] Systolic blood pressure 2023-03-29 19:30:00 113 mm[Hg] [facility] Diastolic blood pressure 2023-03-29 19:30:00 69 mm[Hg] [facility] Heart rate 2023-03-29 19:30:00 88 /min [facility] Respiratory rate 2023-03-29 19:30:00 18 /min [facility] Body weight 2023-03-29 19:30:00 69.4 kg [facility] BMI 2023-03-29 19:30:00 23.96 kg/m2 [facility] Systolic blood pressure 2023-03-22 13:59:00 111 mm[Hg] [facility] Diastolic blood pressure 2023-03-22 13:59:00 73 mm[Hg] [facility] Heart rate 2023-03-22 13:59:00 73 /min [facility] Body temperature 2023-03-22 13:59:00 36.56 Mariella [facility] Body height 2023-03-22 13:59:00 170.2 cm [facility] Body weight 2023-03-22 13:59:00 70.897 kg [facility] BMI 2023-03-22 13:59:00 24.48 kg/m2 [facility] Systolic blood pressure 2023-03-07 02:54:00 125 mm[Hg] [facility] Diastolic blood pressure 2023-03-07 02:54:00 84 mm[Hg] [facility] Heart rate 2023-03-07 02:54:00 107 /min Un[facility] Body temperature 2023-03-07 02:54:00 37 Mariella [facility] Respiratory rate 2023-03-07 02:54:00 18 /min [facility] Body height 2023-03-07 02:54:00 170.2 cm [facility] Body weight 2023-03-07 02:54:00 74.844 kg [facility] BMI 2023-03-07 02:54:00 25.84 kg/m2 [facility] Oxygen saturation in Arterial blood by Pulse oximetry 2023-03-07 02:54:00 97 /min [facility] Systolic blood pressure 2022-12-20 19:25:00 121 mm[Hg] [facility] Diastolic blood pressure 2022-12-20 19:25:00 73 mm[Hg] [facility] Heart rate 2022-12-20 19:25:00 91 /min [facility] Body temperature 2022-12-20 19:25:00 37 Mariella [facility] Respiratory rate 2022-12-20 19:25:00 18 /min [facility] Body height 2022-12-20 19:25:00 170.2 cm [facility] Body weight 2022-12-20 19:25:00 72.15 kg [facility] BMI 2022-12-20 19:25:00 24.91 kg/m2 [facility] Systolic blood pressure 2022-07-18 19:19:00 129 mm[Hg] [facility] Diastolic blood pressure 2022-07-18 19:19:00 87 mm[Hg] [facility] Heart rate 2022-07-18 19:19:00 101 /min Un[facility] Body temperature 2022-07-18 19:19:00 36.67 Mariella [facility] Respiratory rate 2022-07-18 19:19:00 18 /min [facility] Body height 2022-07-18 19:19:00 170.2 cm [facility] Body weight 2022-07-18 19:19:00 73.71 kg [facility] BMI 2022-07-18 19:19:00 25.45 kg/m2 [facility] Systolic blood pressure 2021-12-14 13:58:00 115 mm[Hg] [facility] Diastolic blood pressure 2021-12-14 13:58:00 65 mm[Hg] [place] [facility] Heart rate 2021-12-14 13:58:00 82 /min [facility] Body temperature 2021-12-14 13:58:00 36.5 Mariella [facility] Respiratory rate 2021-12-14 13:58:00 16 /min [facility] Body height 2021-12-14 13:58:00 170.2 cm [facility] Body weight 2021-12-14 13:58:00 74.39 kg [facility] BMI 2021-12-14 13:58:00 25.69 kg/m2 [facility] Procedures Procedure Date / Time Performed Performing Clinician Source CONSENT FOR CONTRACEPTION 2023-11-06 06:01:00 Doctor Unassigned, [place] [facility] POCT TEST 2023-11-06 00:00:00 Marcia Ocampo [facility] CBC WITH DIFF 2023-09-26 10:41:00 Marcia Ocampo [facility] POCT GLUCOSE (AUTOMATED) 2023-09-26 03:25:00 Marcia Ocampo [facility] POCT GLUCOSE (AUTOMATED) 2023-09-26 00:48:00 Marcia Ocampo [facility] POCT GLUCOSE (AUTOMATED) 2023-09-25 19:41:00 Marcia Ocampo [facility] CENTRAL NEURAXIAL BLOCK 2023-09-25 16:25:00 Sachin Garza [facility] POCT GLUCOSE (AUTOMATED) 2023-09-25 15:03[facility]00 [facility] 2023-09-25 14:08:00 [facility] IMMUNE GLOBULIN 2023-09-25 14:08:00 DamarisMarcia [facility] CBC WITH DIFF 2023-09-24 18:37:00 DamarisMarcia [facility] ASSIGNMENT OF BENEFITS 2023-09-24 18:12:12 Docto r Unassigned, [place] [facility] CONSENT/REFUSAL FOR DIAGNOSIS AND TREATMENT 2023-09-24 18:11:48 Doctor Unassigned, [place] [facility] PHYSICIAN ORDERS 2023-09-20 06:01:00 Doctor Unas signed, [place] [facility] CBC WITH DIFF 2023-09-13 17:53:00 DamarisMarcia Bryce [facility] DSU PRE-OP 2023-09-13 06:01:00 Doctor Unass igned, [place] [facility] POCT URINALYSIS W/O SPECIFIC GRAVITY 2023-09-13 00:00:00 [facility] TRIMESTER ULTRASOUND 2023-09-12 20:34:00 Damaris [facility] POCT URINALYSIS W/O SPECIFIC GRAVITY 2023-08-23 00:00:00 Damaris [facility] TDAP VACCINE, >11 YRS, IM 2023-08-09 18:28:34 Damaris [facility] SECOND AND THIRD TRIMESTER ULTRASOUND 2023-08-09 15:44:00 Damaris [facility] POCT URINALYSIS W/O SPECIFIC GRAVITY 2023-08-09 00:00:00 [facility]IN[facility]YS[facility] W/O SPECIFIC GRAVITY 2023-07-19 00:00:00 Damaris [facility] POCT URINALYSIS W/O SPECIFIC GRAVITY 2023-06-14 00:00:00 Damaris [facility] SECOND AND THIRD TRIMESTER ULTRASOUND 2023-05-29 17:25:00 Damaris [facility] SECOND AND THIRD TRIMESTER ULTRASOUND 2023-05-29 17:10:00 Marcia Ocampo [facility] POCT URINALYSIS W/O SPECIFIC GRAVITY 2023-05-17 00:00:00 Damaris Marciacarmen Wu [facility] ASSIGNMENT OF BENEFITS 2023-05-07 03:00:45 Docto r Unassigned, [place] [facility] IN INCISION & DRAINAGE ABSCESS COMPLICATED/MULTIPLE 2023-05-07 02:54:06 Atul Leal [facility] CONSENT/REFUSAL FOR DIAGNOSIS AND TREATMENT 2023-05-07 01:48:05 Doctor Unassigned, [place] [facility] POCT URINALYSIS W/O SPECIFIC GRAVITY 2023-04-19 00:00:00 Marcia Ocampo [facility] GLYCOSYLATED HEMOGLOBIN (A1C) 2023-03-27 16:12:00 Marcia Ocampo [facility] <14 WEEKS US LIMITED 2023-03-22 15:38:34 Damaris Marcia [facility] SCANNED LAB RESULTS 2023-03-22 05:01:00 Doctor Leisa pierce, [place] [facility] POCT URINALYSIS W/O SPECIFIC GRAVITY 2023-03-22 00:00:00 Damaris Marcia [facility] URINALYSIS 2023-03-07 03:08:00 Ramirez Sanchez [facility] POCT TEST 2023-03-07 03:07:00 Ramirez Sanchez [facility] NOTICE OF PRIVACY PRACTICES 2023-03-07 02:49:46 Doctor Unassigned, [place] [facility] CONSENT/REFUSAL FOR DIAGNOSIS AND TREATMENT 2023-03-07 02:47:26 Doctor Unassigned, [place] [facility] ASSIGNMENT OF BENEFITS 2022-12-20 19:06:39 Docto r Unassigned, [place] [facility] FLU VACC ([id number]), 6+ MONTHS, IM, QUAD 2021-12-14 14:41:01 German Back [facility] Encounters Start Date/Time End Date/Time Encounter Type Admission Type Attending Clinicians Care Facility Care Department Encounter ID Source 2021-07-06 18:46:07 Emergency [facility] [id number] [facility] 2024-11-03 09:36:03 2024-11-03 09:36:03 Outpatient [facility] [id number] John Beckman 2024-01-31 08:00:00 2024-01-31 08:00:00 Outpatient MARCIA STEWART [facility] [id number] [facility] 2023-12-20 11:30:00 2023-12-20 11:30:00 Outpatient R CARITO PICHARDO [facility] [id number] [facility] 2023-12-18 13:30:00 2023-12-18 13:30:00 Outpatient R CARITO PICHARDO [facility] [id number] [facility] 2023-12-04 14:00:00 2023-12-04 14:37:15 Outpatient R CARITO PICHARDO [facility] [id number] [facility] 2023-12-04 14:00:00 2023-12-04 14:37:15 Office Visit Car[facility] Pichardo [facility] [id number] [facility] 2023-12-03 14:00:00 2023-12-03 14:00:00 Outpatient CARITO BAGLEY [facility] [id number] [facility] 2023-11-29 13:45:00 2023-11-29 13:45:00 Outpatient MARCIA [facility] [id number] [facility] 2023-11-19 00:00:00 2023-11-19 00:00:00 [facility]ill [facility] 1.2.840.114 350.1.13.10 4.2.7.2.686 [id number] 134 [id number] [facility] 2023-11-13 16:00:00 2023-11-13 16:44:43 Outpatient MARCIA [facility] [id number] [facility] 2023-11-13 16:00:00 2023-11-13 16:44:43 Office Visit Marcia Ocampo [facility] PROFESSIO NAL BUILDING 1.2.840.114 350.1.13.10 4.2.7.2.686 [id number] 134 [id number] [facility] 2023-11-13 00:00:00 2023-11-13 00:00:00 Telephone Marcia Ocampo [facility] BUILDING 1.2.840.114 350.1.13.10 4.2.7.2.686 [id number] [facility] 2023-11-06 15:15:00 2023-11-06 15:36:47 Outpatient R OCAMPO MARCIA [facility] [id number] [facility] 2023-11-06 15:15:00 2023-11-06 15:36:47 Office Visit Marcia Ocampo [facility] 1.2840.114 350.1.13.10 4.2.7.2.686 [id number] 134 [id number] [facility] 2023-11-06 00:00:00 2023-11-06 00:00:00 Orders Only Doctor Unassigned, [place] [facility] 1.2840.114 350.1.13.10 4.2.7.2.686 [id number] [facility] 2023-11-01 00:00:00 2023-11-01 00:00:00 Telephone Damaris Marcia [facility] PRIMARY AND SPECIALTY CARE 1.2840.114 350.1.13.10 4.2.7.2.686 [id number] 134 [id number] [facility] 2023-10-25 13:15:00 2023-10-25 13:41:03 Outpatient R MARCIA OCAMPO [facility] [id number] [facility] 2023-10-25 13:15:00 2023-10-25 13:41:03 Routine Visit Marcia Ocampo [facility] PR[facility] SPECIALTY CARE 1.2.840.114 350.1.13.10 4.2.7.2.686 [id number] 134 [id number] [facility] 2023-10-11 15:15:00 2023-10-11 15:15:00 Outpatient R MARCIA OCAMPO [facility] [id number] [facility] 2023-09-25 06:27:00 2023-09-27 10:00:00 Inpatient P MARCIA OCAMPO [facility] [id number] [facility] 2023-09-25 06:27:00 2023-09-27 10:00:00 Hospital Encounter Marcia Ocampo [facility] 1.2.840.114 350.1.13.10 4.2.7.2.686 [id number] [facility] 2023-09-25 10:31:00 2023-09-26 02:10:00 Anesthesia Event Sachin Garcia, [facility] 1.2.840.114 350.1.13.10 4.2.7.2.686 [id number] [id number] [facility] 2023-09-24 12:15:00 2023-09-24 12:30:00 Food Supervisor Visit Pob, Adc Lab Main Marcia Ocampo [facility] PROF[facility]IO [facility] 1.2.840.114 350.1.13.10 4.2.7.2.686 [id number] [facility] 2023-09-24 12:15:00 2023-09-24 12:15:00 Outpatient R DAMARIS MARCIA [facility] [id number] [facility] 2023-09-20 14:45:00 2023-09-20 15:06:34 Outpatient R [facility] [id number] [facility] 2023-09-20 14:45:00 2023-09-20 15:06:34 Routine Visit Ocampo [facility] 1.2.840.114 350.1.13.10 4.2.7.2.686 [id number] 134 [id number] [facility] 2023-09-20 00:00:00 2023-09-20 00:00:00 Orders Only Doctor Unassigned, [place] [facility] 1.2840.114 350.1.13.10 4.2.7.2.686 [id number] [facility] 2023-09-16 09:30:00 2023-09-16 09:30:00 Outpatient R [facility] [id number] [facility] 2023-09-13 11:30:00 2023-09-13 12:27:12 Food Supervisor Visit Lab, Ang - [facility] 1.20.114 350.1.13.10 4.2.7.2.686 [id number] [facility] 2023-09-13 11:30:00 2023-09-13 11:30:00 Outpatient R [facility] [id number] [facility] 2023-09-13 10:30:00 2023-09-13 10:44:17 Routine Visit Damaris [facility] 1.2840.114 350.1.13.10 4.2.7.2.686 [id number] [facility] 2023-09-13 00:00:00 2023-09-13 00:00:00 Orders Only Doctor Unassigned, [place] [facility] 1.2840.114 350.1.13.10 4.2.7.2.686 [id number] [facility] 2023-09-12 14:45:00 2023-09-12 14:51:15 Outpatient P CONNER DKButch [facility] [id number] [facility] 2023-09-12 14:45:00 2023-09-12 14:51:15 Food Supervisor Visit Ultrasound, Joslyn PrietoDkbutch Ikstacia [facility] WIRE ROPE FABRICATION SUPERVISOR [facility] & [facility]ILD [facility] 1.2.840.114 350.1.13.10 4.2.7.2.686 [id number] [facility] 2023-09-06 15:15:00 2023-09-06 15:15:00 Outpatient R MARCIA OCAMPO [facility] [id number] [facility] 2023-09-06 00:00:00 2023-09-06 00:00:00 Telephone Damaris Marcia [facility] 1.20.114 350.1.13.10 4.2.7.2.686 [id number] 134 [id number] [facility] 2023-08-23 13:15:00 2023-08-23 13:20:59 Outpatient R MARCIA OCAMPO [facility] [id number] [facility] 2023-08-23 13:15:00 2023-08-23 13:20:59 Routine Visit Damaris Marcia [facility] 1.2.840.114 350.1.13.10 4.2.7.2.686 [id number] 134 [id number] [facility] 2023-08-09 12:45:00 2023-08-09 12:48:32 Routine Visit Damaris Marcia [facility] 1.2.840.114 350.1.13.10 4.2.7.2.686 [id number] [facility] 2023-08-09 09:30:00 2023-08-09 09:53:53 Outpatient P LEONA PRIETO [facility] [id number] [facility] 2023-08-09 09:30:00 2023-08-09 09:53:53 Food Supervisor Visit Ultrasound, Joslyn Leona Prieto Leegisatish [facility] WIRE ROPE FABRICATION SUPERVISOR [facility] 1..840.114 350.1.13.10 4.2.7.2.686 [id number] [facility] 2023-08-08 10:45:00 2023-08-08 11:22:36 Outpatient R DAMARIS MARCIA [facility] [id number] [facility] 2023-08-08 10:45:00 2023-08-08 11:00:00 Food Supervisor Visit Lab, Juan Carlos Ocampo [facility] 1..840.114 350.1.13.10 4.2.7.2.686 [id number] [facility] 2023-07-22 09:15:00 2023-07-22 09:15:00 Outpatient R [facility] [id number] [facility] 2023-07-19 11:15:00 2023-07-19 11:25:44 Outpatient R OCAMPOMARCIA [facility] [id number] [facility] 2023-07-19 11:15:00 2023-07-19 11:25:44 Routine Visit Damaris Marcia [facility] 1..840.114 350.1.13.10 4.2.7.2.686 [id number] 134 [id number] [facility] 2023-07-10 00:00:00 2023-07-10 00:00:00 Outpatient GC_GCBZW_Ka diradhaa_S PRIV [facility] [id number] [facility] 2023-07-09 00:00:00 2023-07-09 00:00:00 Telephone Damaris [facility] 1.2.840.114 350.1.13.10 4.2.7.2.686 [id number] 134 [id number] [facility] 2023-06-17 09:16:42 2023-06-17 09:16:42 Outpatient [facility] [id number] John Beckman 2023-06-14 11:30:00 2023-06-14 11:40:45 Outpatient R MARCIA OCAMPO [facility] [id number] [facility] 2023-06-14 11:30:00 2023-06-14 11:40:45 Routine Visit Damaris [facility] 1.2.840.114 350.1.13.10 4.2.7.2.686 [id number] 134 [id number] [facility] 2023-05-29 10:45:00 2023-05-29 12:00:00 Food Supervisor Visit Ultrasound, Marine Arciniega [facility] WIRE ROPE FABRICATION SUPERVISOR [facility] 1.2.840.114 350.1.13.10 4.2.7.2.686 [id number] [facility] 2023-05-29 10:45:00 2023-05-29 10:45:00 Outpatient [facility] [id number] [facility] 2023-05-23 00:00:00 2023-05-23 00:00:00 Telephone Damaris Marcia [facility] 1.2.840.114 350.1.13.10 4.2.7.2.686 [id number] 134 [id number] [facility] 2023-05-17 11:15:00 2023-05-17 11:27:00 Outpatient R MARCIA OCAMPO [facility] [id number] [facility] 2023-05-17 11:15:00 2023-05-17 11:27:00 Routine Visit Marcia Ocampo [facility] 1.0.114 350.1.13.10 4.2.7.2.686 [id number] 134 [id number] [facility] 2023-05-07 00:00:00 2023-05-07 00:00:00 Telephone Marcia Ocampo [facility] PEDIATRIC CLINIC 1.840.114 350.1.13.10 4.2.7.2.686 [id number] 134 [id number] [facility] 2023-05-06 21:13:00 2023-05-06 22:09:00 Emergency X ATUL LEAL [facility] [id number] [facility] 2023-05-06 21:13:00 2023-05-06 22:09:00 Emergency Atul Leal [facility] 1.0.114 350.1.13.10 4.2.7.2.686 [id number] [facility] 2023-05-06 07:30:00 2023-05-06 07:36:11 Outpatient R [facility] [id number] [facility] 2023-05-06 07:30:00 2023-05-06 07:36:11 Food Supervisor Visit Lab, Juan Carlos - Martell Diana [facility] BU[facility] 1.114 350.1.13.10 4.2.7.2.686 [id number] [facility] 2023-04-30 07:30:00 2023-04-30 07:30:00 Outpatient R [facility] [id number] [facility] 2023-04-21 00:00:00 2023-04-21 00:00:00 Nurse Triage Marely [facility] 1..114 350.1.13.10 4.2.7.2.686 [id number] [facility] 2023-04-19 11:00:00 2023-04-19 11:06:57 Routine Visit Marcia Ocampo [facility] 1..114 350.1.13.10 4.2.7.2.686 [id number] 134 [id number] [facility] 2023-04-19 11:00:00 2023-04-19 11:06:57 Outpatient R [facility] [id number] [facility] 2023-04-01 00:00:00 2023-04-01 00:00:00 Telephone Damaris [facility]IN[facility] 1..114 350.1.13.10 4.2.7.2.686 [id number] 134 [id number] [facility] 2023-03-29 14:00:00 2023-03-29 14:47:28 Nurse Visit [facility], [facility] 1..114 350.1.13.10 4.2.7.2.686 [id number] 134 [id number] [facility] 2023-03-29 14:00:00 2023-03-29 14:47:28 Outpatient R [facility] [id number] [facility] 2023-03-29 00:00:00 2023-03-29 00:00:00 Telephone Leia Everett [facility] 1..114 350.1.13.10 4.2.7.2.686 [id number] 134 [id number] [facility] 2023-03-27 13:00:00 2023-03-27 13:00:00 Food Supervisor Visit Lab, Juan Carlos Ocampo [facility] 1.84.114 350.1.13.10 4.2.7.2.686 [id number] 353 [id number] [facility] 2023-03-27 13:00:00 2023-03-27 11:28:09 Outpatient R MARCIA OCAMPO [facility] [id number] [facility] 2023-03-27 11:00:00 2023-03-27 11:00:00 Outpatient R [facility] [id number] [facility] 2023-03-26 08:00:00 2023-03-26 10:57:52 Outpatient R MARCIA OCAMPO [facility] [id number] [facility] 2023-03-26 08:00:00 2023-03-26 10:57:52 Food Supervisor Visit Lab, Juan Carlos - Juan A Ocampo [facility] 1..840.114 350.1.13.10 4.2.7.2.686 [id number] 353 [id number] [facility] 2023-03-26 00:00:00 2023-03-26 00:00:00 Case Management Ocampo [facility] 1..840.114 350.1.13.10 4.2.7.2.686 [id number] 134 [id number] [facility] 2023-03-26 00:00:00 2023-03-26 00:00:00 Telephone Damaris [facility] 1.840.114 350.1.13.10 4.2.7.2.686 [id number] 134 [id number] [facility] 2023-03-25 00:00:00 2023-03-25 00:00:00 Telephone Damaris [facility] 1..840.114 350.1.13.10 4.2.7.2.686 [id number] 134 [id number] [facility] 2023-03-25 00:00:00 2023-03-25 00:00:00 Telephone Ocampo [facility] 1.2.84.114 350.1.13.10 4.2.7.2.686 [id number] 134 [id number] [facility] 2023-03-23 00:00:00 2023-03-23 00:00:00 Case Management OcampoMarcia [facility] PROFESSIO NAL BUILDING 1.84.114 350.1.13.10 4.2.7.2.686 [id number] 134 [id number] [facility] 2023-03-22 10:45:00 2023-03-22 11:00:00 Food Supervisor Visit Lab, Ang - [facility] 1.84.114 350.1.13.10 4.2.7.2.686 [id number] [facility] 2023-03-22 09:00:00 2023-03-22 09:34:31 Outpatient R MARCIA OCAMPO [facility] [id number] [facility] 2023-03-22 09:00:00 2023-03-22 09:34:31 Initial Visit Marcia Ocampo [facility] 1.84.114 350.1.13.10 4.2.7.2.686 [id number] 134 [id number] [facility] 2023-03-22 00:00:00 2023-03-22 00:00:00 Orders Only Doctor Unassigned, [place] [facility] 1.84.114 350.1.13.10 4.2.7.2.686 [id number] [facility] 2023-03-06 21:58:00 2023-03-06 23:40:00 Emergency X RAMIREZ SANCHEZ [facility] ERT [id number] [facility] 2023-03-06 21:58:00 2023-03-06 23:40:00 Emergency Ramirez Sanchez [facility] 1.2.840.114 350.1.13.10 4.2.7.2.686 [id number] [facility] 2023-03-06 13:00:00 2023-03-06 13:00:00 Outpatient R EDITA OATES [facility] [id number] [facility] 2022-12-20 14:30:00 2022-12-20 15:15:47 Outpatient R EDITA OATES [facility] [id number] [facility] 2022-12-20 14:30:00 2022-12-20 15:15:47 Office Visit Edita Oates [facility] WIRE ROPE FABRICATION SUPERVISOR [facility] CHILD [facility] 1.2.840.114 350.1.13.10 4.2.7.2.686 [id number] [facility] 2022-12-20 00:00:00 2022-12-20 00:00:00 Orders Only Doctor Unassigned, [place] [facility] 1.840.114 350.1.13.10 4.2.7.2.686 [id number] [facility] 2022-12-14 09:15:00 2022-12-14 09:15:00 Outpatient SURJIT ARTEAGA [facility] [id number] [facility] 2022-07-18 13:00:00 2022-07-18 13:45:54 Outpatient R SURJIT RICE [facility] [id number] [facility] 2022-07-18 13:00:00 2022-07-18 13:45:54 Office Visit Surjit Rice [facility] WIRE ROPE FABRICATION SUPERVISOR [facility] MATERNAL & CHILD [facility] 1.2.840.114 350.1.13.10 4.2.7.2.686 [id number] 107 [id number] [facility] 2021-12-14 08:45:00 2021-12-14 10:01:04 Outpatient R BUZZ BACKCHAYA [facility] [id number] [facility] 2021-12-14 08:45:00 2021-12-14 10:01:04 Office Visit Back, German Griffith [facility] WIRE ROPE FABRICATION SUPERVISOR [facility] & CHILD [facility] 1.2.840.114 350.1.13.10 4.2.7.2.686 [id number] 107 [id number] [facility] 2021-12-14 08:45:00 2021-12-14 10:01:04 Outpatient Nacho BUZZ BACKCHAYA [facility] [id number] [facility] 2021-12-14 00:00:00 2021-12-14 00:00:00 Orders Only Doctor Unassigned, [place] [facility] 1.2.840.114 350.1.13.10 4.2.7.2.686 [id number] [facility] 2021-12-12 09:30:00 2021-12-12 09:30:00 Outpatient Nacho PUENTEE BUZZCHAYA [facility] [id number] [facility] 2021-12-12 09:30:00 2021-12-12 09:30:00 Outpatient Nacho PUENTEEGERMAN [facility] [id number] [facility] 2021-12-12 09:30:00 2021-12-12 09:30:00 Outpatient GERMAN ALEXANDRE [facility] [id number] [facility] 2021-08-08 09:30:00 2021-08-08 09:30:00 Outpatient SKYLER YARBROUGH [facility] [id number] [facility] 2021-08-07 14:30:00 2021-08-07 15:15:07 Outpatient SKYLER YARBROUGH [facility] [id number] [facility] 2021-08-07 14:21:07 2021-08-07 15:15:07 Office Visit Skyler Cuellar [facility] WIRE ROPE FABRICATION SUPERVISOR [facility] & CHILD [facility] 1.2.840.114 350.1.13.10 4.2.7.2.686 [id number] [facility] 2021-08-07 00:00:00 2021-08-07 00:00:00 Orders Only Doctor Unassigned, [place] [facility] 1.2.840.114 350.1.13.10 4.2.7.2.686 [id number] [facility] 2021-07-20 09:30:00 2021-07-20 09:30:00 Outpatient R LORENZO CHEATHAM [facility] [id number] [facility] 2021-07-14 00:00:00 2021-07-14 00:00:00 Telephone Surjit Rice [facility] WIRE ROPE FABRICATION SUPERVISOR [facility] CHILD [facility] 1.2.840.114 350.1.13.10 4.2.7.2.686 [id number] 107 [id number] [facility] 2020-12-08 00:00:00 2020-12-08 00:00:00 Telephone German Back [facility] WIRE ROPE FABRICATION SUPERVISOR [facility] CHILD [facility] 1.2.840.114 350.1.13.10 4.2.7.2.686 [id number] 107 [id number] 2020-12-08 00:00:00 2020-12-08 00:00:00 Telephone German Back [facility] WIRE ROPE FABRICATION SUPERVISOR [facility] & CHILD [facility] 1.2.840.114 350.1.13.10 4.2.7.2.686 [id number] 107 [id number] [facility] 2020-12-07 09:16:24 2020-12-07 10:08:04 Office Visit German Back [facility] WIRE ROPE FABRICATION SUPERVISOR [facility] & CHILD [facility] 1.2.840.114 350.1.13.10 4.2.7.2.686 [id number] 107 [id number] [facility] 2020-12-07 09:00:00 2020-12-07 09:00:00 Outpatient Nacho GERMAN BACK [facility] [id number] [facility] 2020-12-07 00:00:00 2020-12-07 00:00:00 Orders Only Doctor Unassigned, [place] [facility] 1.2840.114 350.1.13.10 4.2.7.2.686 [id number] [facility] 2020-05-02 00:00:00 2020-05-02 00:00:00 Telephone German Back [facility] WIRE ROPE FABRICATION SUPERVISOR [facility] MATERNAL & CHILD [facility] 1.2840.114 350.1.13.10 4.2.7.2.686 [id number] 107 [id number] [facility] 2020-02-12 12:56:01 2020-02-12 13:27:54 Nurse Visit Visit, [facility] Nurse German Back [facility] WIRE ROPE FABRICATION SUPERVISOR [facility] MATERNAL & CHILD [facility] 1..114 350.1.13.10 4.2.7.2.686 [id number] 107 [id number] [facility] 2020-02-12 13:00:00 2020-02-12 13:00:00 Outpatient GERMAN ALEXANDRE [facility] [id number] [facility] 2020-02-11 00:00:00 2020-02-11 00:00:00 Telephone German Back [facility] WIRE ROPE FABRICATION SUPERVISOR [facility] MATERNAL & CHILD [facility] 1.20.114 350.1.13.10 4.2.7.2.686 [id number] 107 [id number] [facility] 2020-02-11 00:00:00 2020-02-11 00:00:00 Telephone Surjit Rice [facility] WIRE ROPE FABRICATION SUPERVISOR [facility] MATERNAL & CHILD [facility] 1.2840.114 350.1.13.10 4.2.7.2.686 [id number] 107 [id number] [facility] 2020-02-09 14:00:00 2020-02-09 14:00:00 Outpatient R GERMAN BACK [facility] [id number] [facility] 2020-02-03 13:00:00 2020-02-03 13:00:00 Outpatient R [facility] [id number] [facility] 2019-12-31 00:39:27 2019-12-31 01:01:00 Emergency Monica Sanchez [facility] 1.2.840.114 350.1.13.10 4.2.7.2.686 [id number] [facility] 2019-10-19 00:00:00 2019-10-19 00:00:00 Telephone German Back [facility] WIRE ROPE FABRICATION SUPERVISOR [facility] MAT[facility] & CHILD [facility] 1.2.840.114 350.1.13.10 4.2.7.2.686 [id number] 107 [id number] [facility] 2019-10-16 12:48:54 2019-10-16 14:02:54 Office Visit German Back [facility] WIRE ROPE FABRICATION SUPERVISOR [facility] MATERNAL & CHILD [facility] 1.2.840.114 350.1.13.10 4.2.7.2.686 [id number] 107 [id number] [facility] 2018-02-25 08:45:00 2018-02-25 08:45:00 [facility] Medicine [id number] [facility] Results Test Description Test Time Test Comments Results Result Co mments Source [facility] [id number] 21:06:00* Test Item Value Reference Range Interpretation Comme nts POCT PREG (test code = 1605) Negative On board controls acceptable with C Line (test code = 3574) Yes POCT PREG LOT # (test code = 3575) POCT PREG TEST DATE ( test code = 3576) [facility] IMMUNE [id number] 15:17:58* Test Item Value Reference Range Interpretation Comme nts RHIG CANDIDATE? (test code = 5188) No- see comment Patient is not a candidate for RhIg- Patient is Rh Positive.Performed at [facility] Laboratory Services - [facility] Blood [id number] [place] [id number] Free: [phone] No. [id number] [facility] with [id number] 11:15:54* Test Item Value Reference Range Interpretation [...] 34.7 g/dL 31.6-35.1 RDW-SD (test code = 31958-8) 42.5 fL 39.0-49.9 RDW-CV (test code = 788-0) 13.1 % 12.0-15.5 PLT (test code = 777-3) 174 See_Comment [Automated message] The system which generated this result transmitted reference range: 166 - 358 10*3/?L. The reference range was not used to interpret this result as normal/abnormal. MPV (test code = 27438-3) 11.3 fL 9.5-12.9 NRBC/100 WBC (test code = 3370992375) 0.0 See_Comment [Automated message] The system which generated this result transmitted reference range: 0.0 - 10.0 /100 WBCs. The reference range was not used to interpret this result as normal/abnormal. NRBC x10^3 (test code = 3753417377) See_Comment [Automated message] The system which generated this result transmitted reference range: 10*3/?L. The reference range was not used to interpret this result as normal/abnormal. GRAN MAT (NEUT) % (test code = 770-8) 86.4 % IMM GRAN % (test code = 1444618783) 0.60 % LYMPH % (test code = 736-9) 6.9 % MONO % (test code = 5905-5) 5.1 % EOS % (test code = 713-8) 0.8 % BASO % (test code = 706-2) 0.2 % GRAN MAT x10^3(ANC) (test code = 2672942153) 12.14 10*3/uL 1.88-7.09 H IMM GRAN x10^3 (test code = 9124743218) 0.08 10*3/uL 0.00-0.06 H LYMPH x10^3 (test code = 731-0) 0.97 10*3/uL 1.32-3.29 L MONO x10^3 (test code = 742-7) 0.71 10*3/uL 0.33-0.92 EOS x10^3 (test code = 711-2) 0.11 10*3/uL 0.03-0.39 BASO x10^3 (test code = 704-7) 0.03 10*3/uL 0.01-0.07 Lab Interpretation (test code = 66109-6) Abnormal [facility] GLUCOSE (AUTOMATED)2023-09-26 03:26:13* Test Item Value Reference Range Interpretation Comme nts POCT GLU (test code = 1683950558) 86 mg/dL 70-110 Lab Interpretation (test cod e = 79192-8) Normal [facility] GLUCOSE (AUTOMATED)2023-09-26 00:49:14* Test Item Value Reference Range Interpretation Comme nts POCT GLU (test code = 0485675026) 79 mg/dL 70-110 Lab Interpretation (test cod e = 01505-4) [facility]2023-09-25 19:43:12* Test Item Value Reference Range Interpretation Comme nts POCT GLU (test code = 1800294450) 98 mg/dL 70-110 Lab Interpretation (test cod e = 23689-8) [facility] Ne[facility] [id number] 16:25:00 Sachin William MD ? ? 09/25/2023 11:00 AM Central Neuraxial Block Date/Time: 09/25/2023 10:25 AM Performed by: Sachin William MDAuthorized by: Sachin William MD ?Patient Location: OBEnd Time: 09/25/2023 10:59 AMReason for Block: OB request, Patient request, Laboranalgesia, Surgical anesthesia and Post-op pain managementStaff: ?Anesthesiologist: aSchin William MD ?Performed by: anesthesiologistPreanesthetic Checklist: patient [...] YANETH sa line ?Guidance with: landmark technique}Epidural/Spinal [place] and/or Catheter: ?Epidural/Spinal Kit: BBraun ?Needle Type: [...] no more heme aspirated. Negative test dose [facility] [id number] 16:25:00 Sachin William MD ? ? 09/25/2023 [...] YANETH sa line ?Guidance with: landmark technique}Epidural/Spinal [place] and/or Catheter: ?Epidural/Spinal Kit: BBraun ?Needle Type: [...] no more heme aspirated. Negative test dose [facility] (AUTOMATED)2023-09-25 15:04:40* Test Item Value Reference Range Interpretation Comme nts POCT GLU (test code = 1265224337) 116 mg/dL 70-110 H Lab Interpretation (test cod e = 16510-7) Abnormal [facility] and Screen - ONCE [id number] 15:00:00* Test Item Value Reference Range Interpretation Comme nts ABO & RH (test code = 20) O POSITIVE IAT (test code = 1185) Negative [facility] with [id number] 18:44:22* Test Item Value Reference Range Interpretation Comme nts WBC (test code = 6690-2) 8.10 See_Comment [Automated [email or web address]] The system which generated this result transmitted reference range: 4.30 - 11.10 10*3/?L. The reference range was not used to interpret this result as normal/abnormal. RBC (test code = 789-8) 3.99 See_Comment [Automated [email or web address]] The system which generated this result transmitted [...] 34.6 g/dL 31.6-35.1 RDW-SD (test code = 77121-9) 42.4 fL 39.0-49.9 RDW-CV (test code = 788-0) 12.9 % 12.0-15.5 PLT (test code = 777-3) 197 See_Comment [Automated [employer]] The system which generated this result transmitted reference range: 166 - 358 10*3/?L. The reference range was not used to interpret this result as normal/abnormal. MPV (test code = 48928-6) 11.4 fL 9.5-12.9 NRBC/100 WBC (test code = 6281620652) 0.0 See_Comment [Automated me ssage] The system which generated this result transmitted reference range: 0.0 - 10.0 /100 WBCs. The reference range was not used to interpret this result as normal/abnormal. NRBC x10^3 (test code = 2490660590) See_Comment [Automated messa ge] The system which generated this result transmitted reference range: 10*3/?L. The reference range was not used to interpret this result as normal/abnormal. GRAN MAT (NEUT) % (test code = 770-8) 78.2 % IMM GRAN % (test code = 3125748175) 0.50 % LYMPH % (test code = 736-9) 15.3 % MONO % (test code = 5905-5) 4.4 % EOS % (test code = 713-8) 1.2 % BASO % (test code = 706-2) 0.4 % GRAN MAT x10^3(ANC) (test code = 5161022961) 6.33 10*3/uL 1.88-7.09 IMM GRAN x10^3 (test code = 0816025679) 0.04 10*3/uL 0.00-0.06 LYMPH x10^3 (test code = 731-0) 1.24 10*3/uL 1.32-3.29 L MONO x10^3 (test code = 742-7) 0.36 10*3/uL 0.33-0.92 EOS x10^3 (test code = 711-2) 0.10 10*3/uL 0.03-0.39 BASO x10^3 (test code = 704-7) 0.03 10*3/uL 0.01-0.07 Lab Interpretation (test code = 88070-5) Abnormal [facility] with [id number] 18:44:22* Test Item Value Reference Range Interpretation Comme nts WBC (test code = 6690-2) 8.10 See_Comment [Automated messa ge] The system which generated this result transmitted reference range: 4.30 - 11.10 10*3/?L. The reference range was not used to interpret this result as normal/abnormal. RBC (test code = 789-8) 3.99 See_Comment [Automated [employer]] The system which generated this result [...] 34.6 g/dL 31.6-35.1 RDW-SD (test code = 65001-1) 42.4 fL 39.0-49.9 RDW-CV (test code = 788-0) 12.9 % 12.0-15.5 PLT (test code = 777-3) 197 See_Comment [Automated [employer]] The system which generated this result transmitted reference range: 166 - 358 10*3/?L. The reference range was not used to interpret this result as normal/abnormal. MPV (test code = 17998-7) 11.4 fL 9.5-12.9 NRBC/100 WBC (test code = 3192745422) 0.0 See_Comment [Automated [employer] ssage] The system which generated this result transmitted reference range: 0.0 - 10.0 /100 WBCs. The reference range was not used to interpret this result as normal/abnormal. NRBC x10^3 (test code = 7723841689) See_Comment [Automated [employer] ge] The system which generated this result transmitted reference range: 10*3/?L. The reference range was not used to interpret this result as normal/abnormal. GRAN MAT (NEUT) % (test code = 770-8) 78.2 % IMM GRAN % (test code = 8150428671) 0.50 % LYMPH % (test code = 736-9) 15.3 % MONO % (test code = 5905-5) 4.4 % EOS % (test code = 713-8) 1.2 % BASO % (test code = 706-2) 0.4 % GRAN MAT x10^3(ANC) (test code = 6394407026) 6.33 10*3/uL 1.88-7.09 IMM GRAN x10^3 (test code = 9821539097) 0.04 10*3/uL 0.00-0.06 LYMPH x10^3 (test code = 731-0) 1.24 10*3/uL 1.32-3.29 L MONO x10^3 (test code = 742-7) 0.36 10*3/uL 0.33-0.92 EOS x10^3 (test code = 711-2) 0.10 10*3/uL 0.03-0.39 BASO x10^3 (test code = 704-7) 0.03 10*3/uL 0.01-0.07 Lab Interpretation (test code = 75371-6) Abnormal [facility] with [id number] 20:29:26* Test Item Value Reference Range Interpretation Comme nts WBC (test code = 6690-2) 8.96 See_Comment [Automated [employer]] The system which generated this result transmitted reference range: 4.30 - 11.10 10*3/?L. The reference range was not used to interpret this result as normal/abnormal. RBC (test code = 789-8) 4.20 See_Comment [Automated [employer]] The system which generated this result [...] 33.9 g/dL 31.6-35.1 RDW-SD (test code = 74340-2) 41.6 fL 39.0-49.9 RDW-CV (test code = 788-0) 12.6 % 12.0-15.5 PLT (test code = 777-3) 181 See_Comment [Automated messa ge] The system which generated this result transmitted reference range: 166 - 358 10*3/?L. The reference range was not used to interpret this result as normal/abnormal. MPV (test code = 55448-9) 11.8 fL 9.5-12.9 NRBC/100 WBC (test code = 5769908792) 0.0 See_Comment [Automated [employer] ssage] The system which generated this result transmitted reference range: 0.0 - 10.0 /100 WBCs. The reference range was not used to interpret this result as normal/abnormal. NRBC x10^3 (test code = 8305258826) See_Comment [Automated messa ge] The system which generated this result transmitted reference range: 10*3/?L. The reference range was not used to interpret this result as normal/abnormal. GRAN MAT (NEUT) % (test code = 770-8) 79.2 % IMM GRAN % (test code = 4610606944) 0.90 % LYMPH % (test code = 736-9) 14.8 % MONO % (test code = 5905-5) 4.2 % EOS % (test code = 713-8) 0.6 % BASO % (test code = 706-2) 0.3 % GRAN MAT x10^3(ANC) (test code = 3325357105) 7.09 10*3/uL 1.88-7.09 IMM GRAN x10^3 (test code = 8835984436) 0.08 10*3/uL 0.00-0.06 H LYMPH x10^3 (test code = 731-0) 1.33 10*3/uL 1.32-3.29 MONO x10^3 (test code = 742-7) 0.38 10*3/uL 0.33-0.92 EOS x10^3 (test code = 711-2) 0.05 10*3/uL 0.03-0.39 BASO x10^3 (test code = 704-7) 0.03 10*3/uL 0.01-0.07 Lab Interpretation (test code = 53943-5) Abnormal [facility] Urinalysis w/o Specific [id number] 16:37:00* Test Item Value Reference Range Interpretation [...] = 3257) N/A Negative - Negati ve [facility] Urinalysis w/o Specific [id number] 19:09:00* Test Item Value Reference Range Interpretation [...] = 3257) N/A Negative - Negati ve [facility] URINALYSIS W/O SPECIFIC [id number] 18:37:00* Test Item Value Reference Range Interpretation [...] = 3257) N/A Negative - Negati ve [facility] URINALYSIS W/O SPECIFIC [id number] 17:15:00* Test Item Value Reference Range Interpretation [...] = 3257) N/A Negative - Negati ve [facility] URINALYSIS W/O SPECIFIC [id number] 16:55:00* Test Item Value Reference Range Interpretation [...] = 3257) Negative [facility] [id number] 16:05:00* Test Item Value Reference Range Interpretation [...] = 3257) N/A Negative - Negati ve [facility] URINALYSIS W/O SPECIFIC [id number] 15:36:00* Test Item Value Reference Range Interpretation [...] = 3257) n/a Negative - Negati ve [facility]way[facility]YCOSYLATED HEMOGLOBIN (A1C)2023-03-27 20:21:55* Test Item Value Reference Range Interpretation Comme nts HGB A1C (test code = 4548-4) 4.8 % 4.0-5.7 ESTEPHANIA (test code = ESTEPHANIA) Reference RangesNormal: <5.7%Prediabetes: 5.7 - 6.4%Diabetes: > 6.5% Lab Interpretation (test code = 31566-1) Normal [facility] URINALYSIS W/O SPECIFIC [id number] 14:01:00* Test Item Value Reference Range Interpretation [...] = 3257) n/a Negative - Negati ve [facility] [id number] 03:07:00* Test Item Value Reference Range Interpretation Comme nts POCT PREG (test code = 1605) Positive On board controls acceptable with C Line (test code = 3574) Yes POCT PREG LOT # (test code = 3575) [id number] POCT PREG TEST DATE ( test code = 3576) 06/14/2024 Lab Interpretation (test cod e = 69098-0) Normal [facility] History and Physical Notes Date/Time Note Provider [...] Operations: Past Surgical History: Procedure Laterality Date IN FISSURECTOMY INCL SPHINCTEROTOMY WHEN PERFORMED Past Medical History: Diagnosis Date Anemia of mother in , antepartum 01/24/2018 resolved Anxiety Managed by [facility], managing without medication Chlamydia 2010, 2013 treated Depression managed by [facility], ongoing, managing without medication Family history of [...] details Marcia Ocampo MD 09/25/2023 9:59 AM [facility] Procedure Notes Date/Time Note Provider [...] YANETH saline Guidance with: landmark technique} Epidural/Spinal [place] and/or Catheter: Epidural/Spinal Kit: Misty Needle Type: [...] no more heme aspirated. Negative test dose [facility] 2023-[facility] 10:01:52 Procedure(s): INSERT CERVICAL DILATOR Pre-Procedure Diagnose(s): 39 weeks gestation of ; GDM, class A1 Post-Procedure Diagnose(s): 39 weeks gestation of ; GDM, class A1 Duenas bulb inserted in a sterile manner and inflated with 60 cc of normal saline without complications. Patient tolerated the procedure well. Marcia Ocampo MD #[id number] 09/25/2023 10:02 AM [facility] Notes Date/Time Note Provider Source 2023-11-13 08:49:28 [...] day." Leia Everett RN 11/13/2023 8:55 AM KMAKER Leia Everett RN [facility] 2023-11-13 08:13:52 Patient states she has had a boil that keeps draining. She has been putting hot compresses and is requesting an antibiotic. [facility]/pharmacy #[id number] - [place], [place] - [address] AT [facility] YL Flores [facility] 2023-11-01 10:04:03 Spoke with patient. Patient scheduled for nexplanon insertion with Dr. Ocampo 11/06/2023 Ryan Allen RN 11/01/2023 10:04 AM YL Allen RN [facility] 2023-11-01 08:29:28 Patient is calling stating she started period on 10/31. She states Dr. Ocampo told her to call and notify the nurse. She is requesting to get the nexplanon. She will go to [place] if needed. YL Flores [facility] 2023-09-27 10:09:38 Problem: Pain Goal: [...] Outcome: Progressing as expected YL Polanco RN [facility] 2023-09-27 08:51:16 Problem: Pain Goal: Control of pain at or below patient's documented comfort goal Outcome: Progressing as expected Goal: Reduction in pain sensation Outcome: Progressing as expected Problem: Discharge Planning - Goal: Adequate for discharge Outcome: Progressing as expected Goal: Mood stable Outcome: Progressing as expected Problem: Falls, Risk of Goal: Absence of falls Outcome: Progressing as expected YL [facility] 2023-09-27 01:10:37 Problem: Pain Goal: Control of pain at or below patient's documented comfort goal Outcome: Progressing as expected Goal: Reduction in pain sensation Outcome: Progressing as expected Problem: Discharge Planning - Goal: Adequate for discharge Outcome: Progressing as expected Goal: Mood stable Outcome: Progressing as expected Problem: Falls, Risk of Goal: Absence of falls Outcome: Progressing as expected KMAKER Carmelina Landa RN [facility] 2023-09-26 09:54:20 Problem: Pain Goal: Control of pain at or below patient's documented comfort goal Outcome: Progressing as expected Goal: Reduction in pain sensation Outcome: Progressing as expected Problem: Discharge Planning - Goal: Adequate for discharge Outcome: Progressing as expected Goal: Mood stable Outcome: Progressing as expected YL Adamson RN [facility] 2023-09-26 07:06:23 Patient: Artemio Clinton [...] recovery from neuraxial block Fall precautions given KMAKER AN-ANESTHESIOLOGY ANESTHESIOLOGIST [facility] 2023-09-26 00:23:34 Problem: Discharge Planning - Goal: Adequate for discharge Outcome: Progressing as expected Problem: Discharge Planning - Goal: Mood stable Outcome: Progressing as expected YL Jose RN [facility] 2023-09-26 00:22:47 Problem: Intrapartum process [...] Marisol Jose RN Outcome: Progressing as expected [facility] 2023-09-25 23:43:00 DELIVERY BY SPONTANEOUS VAGINAL [...] shoulder and body. After the delivery of infant, bulb suction was performed from ororpharynx and [...] 9 Marcia Ocampo MD 09/26/2023 7:47 AM [facility] 2023-09-25 19:44:09 Problem: Intrapartum process (including [...] in pain sensation Outcome: Progressing as expected [facility] 2023-09-25 11:00:52 Name/ MRN / Age / Gender: Artemio Clinton [id number] 27 year old female BMI: Estimated body [...] Anesthesia Preop Eval (physical exam) Anesthesia Preop: Uphj-jm-Cufu NPO Status Verified Anesthesia History (-) Hx [...] and 20g Endo/Other Negative Endo/Other ROS Other WIRE ROPE FABRICATION SUPERVISOR Negative WIRE ROPE FABRICATION SUPERVISOR ROS (-) S/P BTL P: 1031 Pediatric Preoperative Medication Instructions Continue taking all prescribed medications except: SILVANA inhibitors, ARBs, diuretics, all oral diabetes medications Anticoagulant Therapy: Defer to surgeons Insulin: Take 1/2 dose the night prior to surgery. Hold on DOS. Phentermine: Alert [facility] anesthesiologist SGLT2 Inhibitors: "gliflozins" to be held for 3 days prior to elective surgeries GLP1 Agonosit: stop 7 days prior to surgery MAC Cases: Continue taking SILVANA inhibitors and ARBs ASA Classification ASA: 2 Current Medications: No outpatient medications have been marked as taking for the 09/25/23 encounter (Hospital Encounter). Previous Surgeries: Past Surgical History: Procedure Laterality Date IN FISSURECTOMY INCL SPHINCTEROTOMY WHEN PERFORMED Anesthesia Physical [...] induction Anesthesia plan discussed with: patient or insurance account representative Post-Operative Analgesia: routine analgesia & antiemetics Recovery Plan: LDR Additional comments: KMAKER AN-ANESTHESIOLOGY ANESTHESIOLOGIST [facility] 2023-09-25 03:40:00 Pt called to explained that her induction is being postponed and to expect a phone call later for her to come in. Pt verbalized understanding. KMAKER Brook Sanchez RN [facility] 2023-09-24 12:15:00 Images from the original note were not included. Venipuncture collection performed by clean technique on the left hand. Total of 1 attempts were made. Slight pressure and a bandage/dressing were applied to the site(s). The patient experienced no complications. The following specimens were processed according to instructions and sent to [facility] laboratories per lab order on 09/24/2023 : LT BLUE SST 2 RED 1 LAV 1 PPT DK GREEN (LiHep) DK GREEN (SodH) JAMIL DK BLUE (K2) DK BLUE (S) ACD Blood Culture NIPT/NTD [facility] 2023-09-24 12:15:00 All winn do not have to draw TS. YL Martinez [facility] 2023-09-24 12:15:00 Addended by: ISAC MARTINEZ on: 09/24/2023 02:28 PM Modules accepted: Orders [facility] 2023-09-20 14:45:00 Age: [age] year old [...] in 4 to 6 weeks for visit [facility] 2023-09-13 11:30:00 Images from the original note were not included. Venipuncture collection performed by clean technique on the right anticubitus. Total of 1 attempts were made. Slight pressure and a bandage/dressing were applied to the site(s). The patient experienced no complications. The following specimens were processed according to instructions and sent to [facility] laboratories per lab order on 09/13/2023 : LT BLUE SST RED LAV 1 PPT DK GREEN (LiHep) DK GREEN (SodH) JAMIL DK BLUE (K2) DK BLUE (S) ACD Blood Culture NIPT/NTD [facility] 2023-09-13 10:30:00 Age: [age] year old [...] today RTC in 1 wk for PN [facility] 2023-09-06 15:36:01 Paxlovid 300 mg x 5 day sent in to pharmacy on file per Dr. Ocampo. Patient notified of rx sent in. Advised patient of importance of staying hydrated, taking otc safe medications for symptoms, monitoring FKC, and to monitor symptoms. Strong ER precautions given. Patient verbalized understanding. Leia Everett RN 09/06/2023 3:38 PM KMAKER Leia Everett RN [facility] 2023-09-06 11:02:38 Patient states that she tested positive for covid yesterday at [facility], c/o headache, sore throat, runny nose, body [...] appt. Leia Everett RN 09/06/2023 11:10 AM [facility] 2023-09-06 10:39:31 Pt calling says she felt sick and went to er yesterday tested positive for covid has appt later today KMAKER Altagracia Rome [facility] 2023-05-23 09:40:44 Formatting of this n ote might be different from the original. 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 Leia Everett RN 05/23/2023 9:40 AM Leia Everett RN [facility] 2023-05-23 09:34:23 Formatting of this n ote might be different from the original. Patient is needing a dental clearance for a filling. Her appointment is scheduled on 06/06/2023. She will be getting it done at [facility] in [place], she did not have the fax number. She will either like it faxed or she can pick it up. Adele Flores [facility] 2023-05-17 11:15:00 Formatting of this n ote might be different from the original. Images from the original note were not included. Age: [age] year old GA: 20w2d Left buttock abscess - First present to [facility] [facility] ER on 04/21/23 and was prescribed Clindamycin. She completed clindamycin as prescribed. She re-presented to [facility] ER on 05/06/23 for the same problem. [...] 05/29/23 Follow-up in 4 weeks for visit [facility] 2023-05-07 12:49:05 Formatting of this n ote might be different from the original. Patient notified of lab results. 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 Advised patient Dr. Ocampo will go over in more detail at visit and answer any additional questions. Patient verbalized understanding. Leia Everett RN 05/07/2023 12:49 PM Leia Everett RN [facility] 2023-05-07 11:55:30 Formatting of this n ote might be different from the original. Pt would like a nurse to call her back and go over her labs with her. Jaja Fay [facility] 2023-05-06 21:59:11 Formatting of this [...] in no apparent distress, Nabila Andre RN [facility] 2023-05-06 20:50:00 Formatting of this [...] 18 weeks LMP 12/27/2022 Tiffanie Horton RN [facility] 2023-05-06 20:47:00 Associated Order(s): Incision and Drainage Images from the original note were not included. 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 Travel and Exposure Screening: Symptoms [...] , antepartum 01/24/2018 resolved Anxiety Managed by [facility], managing without medication Chlamydia 2013 treated Depression managed by [facility], ongoing, managing without medication Family history of [...] History: Past Surgical History: Procedure Laterality Date IN FISSURECTOMY INCL SPHINCTEROTOMY WHEN PERFORMED Review of [...] Alternatives discussed: No treatment and delayed treatment Spencer protocol: Immediately prior to procedure, a time [...] these medications No medications on file Follow-up: [facility] 2023-05-06 07:30:00 Formatting of this [...] processed according to instructions and sent to [facility] laboratories per lab order on 05/06/2023 : LT BLUE SST 2 RED LAV PPT DK GREEN (LiHep) DK GREEN (SodH) JAMIL DK BLUE (K2) DK BLUE (S) ACD Blood Culture NIPT/NTD [facility] 2023-04-21 14:49:00 Formatting of this n ote might be different from the original. Regarding: Pt wants to know if she can take pepto bismol ----- Message from Terrell Oscar sent at 04/21/2023 2:48 PM CDT ----- Artemio Clinton is a 27 year old female Pt wants to know if she can take Pepto bismol for a stomach ache. Marely Ly RN [facility] 2023-04-21 14:49:00 Formatting of this [...] - Abdominal Pain Less Than 20 Weeks VEE-ARUXV-PM EM Soto, RN [facility] Access Center Triage Nurse T [facility] 2023-04-19 11:00:00 Formatting of this [...] ordered Follow-up in 4 weeks for visit [facility] 2023-04-01 14:27:08 Formatting of this n ote might be different from the original. Fax received from [employer] requesting a prior authorization for the test strips. Spoke with pharmacy and confirmed all the supplies have been picked up at no charge, PA not required. Linsey Artis MA [facility] 2023-03-29 16:16:43 Formatting of this n ote might be different from the original. Prema results received via fax. Panorama- low risk, female Horizon- negative for 14 out of 14 diseases Spoke with patient, name and verified. Patient informed of results including gender. Results signed, will scan and upload a copy to [employer]. Leia Everett RN 03/29/2023 4:17 PM Leia Everett RN [facility] 2023-03-27 13:00:00 Formatting of this [...] processed according to instructions and sent to [facility] laboratories per lab order on 03/27/2023 LT BLUE SST RED LAV 1 PPT DK GREEN (LiHep) DK GREEN (SodH) JAMIL DK BLUE (K2) DK BLUE (S) ACD Blood Culture NIPT/NTD [facility] 2023-03-27 09:17:43 Formatting of this [...] RN 03/27/2023 9:18 AM Edith Mills RN [facility] 2023-03-26 16:49:12 Formatting of this n ote might be different from the original. Pt called and would like someone to go over her results with her. Please advise Taurus Parker [facility]
--- NOTE | 2024-12-27 17:02 | EDPHYS ---
Physician Documentation [facility] Name: Mitra Melendez Age: 29 yrs Sex: Female : 1995 Arrival Date: 12/27/2024 Time: 14:55 Bed 12 Private MD: ED Physician Chico Devi HPI: 12/27 17:13 This 29 yrs old Female presents to ER via Ambulatory with complaints of Abscess. sb4 17:13 The patient presents with an abscess of the right hamstring. Description: The affected sb4 area is small, swollen, tense, warm. 17:13 Onset: The symptoms/episode began/occurred 1 week(s) ago. Possible cause(s): unknown. sb4 The patient has experienced similar episodes in the past, multiple times. 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 - Infectious Disease History:: MRSA (w/in 1 year), . - Social history:: Smoking status: Patient reports the use of cigarette tobacco products, smokes one pack cigarettes per day. ROS: 17:15 Constitutional: Negative for fever, chills, and weight loss, sb4 17:15 Skin: Positive for abscess, of the right hamstring, 17:15 All other systems are negative, Exam: 17:15 Constitutional: This is a well developed, well nourished patient who is awake, alert, sb4 and in no acute distress. Head/Face: Normocephalic, atraumatic. Eyes: Extra-ocular motions intact. Periorbital areas with no swelling, redness, or edema. ENT: Mucous membranes moist. Respiratory: No increased work of breathing, no retractions or nasal flaring. 17:15 Skin: abscess, that is small, approximately 3 cm(s), of the right hamstring, with induration, Vital Signs: 15:31 BP 109 / 71; Pulse 95; Resp 16; Temp 98.1; Pulse Ox 100% ; Weight 72.57 kg; Height 5 ll1 ft. 7 in. ; Pain 6/10; 15:31 Body Mass Index 25.06 (72.57 kg, 170.18 cm) ll1 15:31 Pain Scale: Adult ll1 Procedures: 17:15 I \T\ D: Incision and drainage was performed for an abscess of the right upper right sb4 posterior thigh Prepped with Betadine, Anesthetized with nothing. Incised with 23 gauage. Drained small amount purulent fluid. bloody fluid. Dressing: bandaid the patient tolerated the procedure well. MDM: 15:32 Medical Screening Exam initiated sb4 17:16 Data reviewed: vital signs, nurses notes, and as a result, I will discharge patient. sb4 Counseling: I had a detailed discussion with the patient and/or guardian regarding the historical points, exam findings, and any diagnostic results supporting the discharge/admit diagnosis, the need for outpatient follow up, for definitive care, to return to the emergency department if symptoms worsen or persist or if there are any questions or concerns that arise at home. 12/27 15:52 Order name: Dawna neumann; Complete Time: 16:14 sb4 Administered Medications: No medications were administered Disposition Summary: 12/27/24 17:02 Discharge Ordered Notes: Location: Home sb4 Problem: new sb4 Symptoms: have improved sb4 Condition: Stable sb4 Diagnosis - Cutaneous abscess of right lower limb sb4 Followup: sb4 - With: Emergency Department - When: As needed - Reason: Fever > 102 F, Worsening of condition Discharge Instructions: - Discharge Summary Sheet sb4 - Skin Abscess, [id number] sb4 - Incision and Drainage, Care After sb4 Forms: - Antibiotic Education sb4 - Patient Portal Instructions sb4 - Leadership Thank You Letter sb4 Prescriptions: - Doxycycline Hyclate 100 mg Oral Tablet - take 1 tablet ORAL route every 12 hours; 20 tablet; Refills: 0, Product sb4 Selection Permitted Addendum: 12/29/2024 14:49 Co-signature as Attending Physician, Chico Devi MD I agree with the assessment and c barclay plan of care. Signatures: Chico Devi MD MD cha Lewis, Lynsay, RN RN ll1 Mago Ng PA-C PAJaymeC sb4 Corrections: (The following items were deleted from the chart) 12/27 17:15 17:13 Description: The affected area is small, sb4 sb4
--- NOTE | 2024-12-27 17:02 | ER ---
Nurse's Notes [facility] Name: Mitra Melendez Age: 29 yrs Sex: Female : 1995 Arrival Date: 12/27/2024 Time: 14:55 Bed 12 Private MD: Diagnosis: Cutaneous abscess of right lower limb Presentation: 12/27 15:31 Chief complaint: Patient states: Abscess to R lower buttocks area for 1 week. No fever ll1 or drainage. Coronavirus screen: Client denies travel out of the [place] in the last 14 days. At this time, the client does not indicate any symptoms associated with coronavirus-19. Ebola Screen: Patient denies travel to an Ebola-affected area in the 21 days before illness onset. Initial Sepsis Screen: Does the patient meet any 2 criteria? No. Patient's initial sepsis screen is negative. Does the patient have a suspected source of infection? No. Patient's initial sepsis screen is negative. Risk Assessment: Do you want to hurt yourself or someone else? Patient reports no desire to harm self or others. Onset of symptoms was December 21, 2024. 15:31 Method Of Arrival: Ambulatory ll1 15:31 Acuity: ELBERT 4 ll1 Triage Assessment: 15:32 General: Appears uncomfortable, Behavior is calm, cooperative, appropriate for age. ll1 Pain: Complains of pain in R buttocks Quality of pain is described as aching. Derm: Abscess located on R buttocks. 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 - Infectious Disease History:: MRSA (w/in 1 year), . - Social history:: Smoking status: Patient reports the use of cigarette tobacco products, smokes one pack cigarettes per day. Screenin:09 [facility] [place] ED Fall Risk Assessment (Adult) History of falling in the last 3 months, ll1 including since admission No falls in past 3 months (0 pts) Confusion or Disorientation No (0 pts) Intoxicated or Sedated No (0 pts) Impaired Gait No (0 pts) Mobility Assist Device Used No (0 pt) Altered Elimination No (0 pt) Score/Fall Risk Level 0 - 2 = Low Risk Maintained a safe environment, Hourly rounding (assess needs \T\ fall precautionary measures) done. Abuse screen: Denies threats or abuse. Nutritional screening: No deficits noted. Tuberculosis screening: No symptoms or risk factors identified. Assessment: 16:08 Reassessment: No changes from previously documented assessment. Patient and/or family ll1 updated on plan of care and expected duration. Pain level reassessed. Patient is alert, oriented x 3, equal unlabored respirations, skin warm/dry/pink. 17:08 Reassessment: No changes from previously documented assessment. Patient and/or family ll1 updated on plan of care and expected duration. Pain level reassessed. Patient is alert, oriented x 3, equal unlabored respirations, skin warm/dry/pink. Vital Signs: 15:31 BP 109 / 71; Pulse 95; Resp 16; Temp 98.1; Pulse Ox 100% ; Weight 72.57 kg; Height 5 ll1 ft. 7 in. ; Pain 6/10; 15:31 Body Mass Index 25.06 (72.57 kg, 170.18 cm) ll1 15:31 Pain Scale: Adult ll1 ED Course: 15:03 Patient arrived in ED. al6 15:05 Arm band placed on. ll1 15:20 Mago Ng PA-C is [facility]. sb4 15:20 Chico Devi MD is Attending Physician. sb4 15:32 Triage completed. ll1 15:43 Ismael Hubbard, RN is Primary Nurse. ll1 17:09 Patient has correct armband on for positive identification. Bed in low position. ll1 Provided Education on: finish all prescribed antibiotics. Cardiac monitoring not applicable on this patient. 17:09 No provider procedures requiring assistance completed. Patient did not have IV access ll1 during this emergency room visit. Administered Medications: No medications were administered Medication: 17:10 VIS not applicable for this client. ll1 Outcome: 17:02 Discharge ordered by . sb4 17:09 Discharged to home ambulatory, ll1 17:09 Condition: stable 17:09 Discharge instructions given to patient, Instructed on discharge instructions, follow up and referral plans. medication usage, Demonstrated understanding of instructions, follow-up care, medications, Prescriptions given X 1, 17:10 Patient left the ED. ll1 Signatures: Ismael Hubbard RN RN ll1 Mago Ng PA-C PA-C sb4 Laura Fuchs
[2024-12-27 17:53] VITALS: BP 109/71; TEMP 98.1; O2SAT 100
== END 2024-12-27 17:10 | disposition home or self-care (01) ==
LOC: ER 14:55
DX: L02.415 Cutaneous abscess of right lower limb (principal)
CPT/HCPCS: 99283

== ENCOUNTER 2025-01-13 07:10 | Emergency (ER) | payer OTHER ==
--- OUTSIDE RECORDS SUMMARY | 2025-01-13 07:22 | XMS REPORT | Continuity of Care Document ---
Author Name Unknown Address [address] [facility] [address] [place] [address] Organization [facility] [place] Address [address] 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 Name Role Phone PCP, PATIENT DOES NOT HAVE A Primary Care Physic katlin Unavailable MARCIA OCAMPO Attending Clinician Unavailable CARITO PICHARDO Attending Clinician Unavailable Marcia Ocampo MD Attending Clinician [phone] Doctor Unassigned, [place] Attending Clinician U navailable Sachin William MD Attending Clinicia n Darius GAITAN, Loreta Attending Clinician [phone] Po, [facility] Lab Main Attending Clinician Unavailabl e Lab, Ang - Db Attending Clinician Unavailable LEONA PRIETO Attending Clinician Unav ailable Ultrasound, Ang-Mfm Attending Clinician UnavailLeona Escalera MD Attending Clinician + [email or web address] Attending Clinician UnavailMarine Jo MD Attending Clinician [phone] MARINE WORTHINGTON Attending Clinician Unavailable MARINE WORTHINGTON Attending Clinician Unavailable ATUL LEAL Attending Clinician Unavailable Atul Leal DO Attending Clinician [phone] Gretel GAITAN, Martell Attending Clinician [phone] Marely Ly RN Attending Clinician Unavailabl e Nurse, [facility] Attending Clinician Un available Leia Everett RN Attending Clinician UnavailRAMIREZ Back Attending Clinician Unavailable Ramirez Sanchez MD Attending Clinician [phone] EDITA OATES Attending Clinician Unavaila Edita Junior CNM Attending Clinician [phone] GERMAN BACK Attending Clinician Unavailab SURJIT Catalan Attending Clinician Unavail able Krystal WHCNPSurjit Attending Clinician + German Gil Attending Clinician + [phone] SKYLER CUELLAR Attending Clinician Unavailtamia Cuellar ETHYLBENZENE OXIDIZER, Skyler Douglas Attending Clinician [phone] LORENZO CHEATHAM Attending Clinician Unavail able Visit, [facility] Nurse Attending Clinician Monica Bella MD Attending Clinician [phone] MARCIA OCAMPO Admitting Clinician Unavailable [email or web address] Admitting Clinician Unavaila guillermo Payers Payer Name Policy Type Policy Number Effective Date Expirati on Date Source [place] [employer] [id number] 2023 00:00:00 Problems Condition Name Condition Details Condition Category Status Onset Date Resolution Date Last Treatment Date Treating Clinician Comments Source 39 weeks gestation of 39 weeks gestation of Disease Active 09-25 00:00: 00 [facility] Liveborn infant, of [place]kew , born in hospital by vaginal delivery Liveborn infant, of askew , born in hospital by vaginal delivery Disease Active 09-25 00:00: 00 [facility] 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 test for herpes simplex virus (HSV) antibody Disease Active 05-17 00:00: 00 [facility] GDM (gestation al diabetes mellitus), class A1 GDM (gestation al diabetes mellitus), class A1 Disease Active 04-19 00:00: 00 [facility] High-risk in third trimester High-risk in third trimester Disease Active 04-19 00:00: 00 [facility] Family history of congenital heart disease Family history of congenital heart disease Disease Active 8-11 00:00: 00 [facility] History of gestationa l diabetes mellitus (GDM) History of gestationa l diabetes mellitus (GDM) Disease Active 8-11 00:00: 00 [facility] Normal in first trimester Normal in first trimester Disease Active 7-14 00:00: 00 [facility] Nausea and vomiting during prior to 22 weeks gestation Nausea and vomiting during prior to 22 weeks gestation Disease Active 7-14 00:00: 00 [facility] History of anxiety and depression History of anxiety and depression Disease Active 4-13 00:00: 00 [facility] BMI 25.0-25.9, adult BMI 25.0-25.9, adult Disease Active 4-07 00:00: 00 [facility] BMI 25.0-25.9, adult BMI 25.0-25.9, adult Disease Active 407 00:00: 00 [facility] Nexplanon in place Nexplanon in place Disease Active 3- 00:00: 00 [facility] Flu vaccine need Flu vaccine need Disease Active 3-31 00:00: 00 [facility] Internal thrombosed hemorrhoid s Internal thrombosed hemorrhoid s Disease Active 0 6- 00:00: 00 [facility] Chlamydia trachomati s infection of lower genitourin victorina sites Chlamydia trachomati s infection of lower genitourin victorina sites Disease Active 2018-09 2 00:00: 00 [facility] Encounter for surveillan ce of implantabl e subdermal contracept giovanna Encounter for surveillan ce of implantabl e subdermal contracept giovanna Disease Active 2017-09 00:00: 00 [facility] Tobacco use disorder Tobacco use disorder Disease Active 2017-09 00:00: 00 [facility] 23 weeks gestation of 23 weeks gestation of Diagnosis Active [facility] Paronychia of finger of left hand Paronychia of finger of left hand Diagnosis Active [facility] Allergies, Adverse Reactions, Alerts Allergy Name Allergy Type Status Severity Reaction(s) Onset Date Inactive Date Treating Clinician Comments Source NO KNOWN ALLERGIE S Drug Class Active [facility] Social History Social Habit Start Date Stop Date Quantity Comments Source ASSERTION 2023-01-09 00:00:00 [facility] History of tobacco use 2007-10-04 00:00:00 Cigarette Smoker [facility] History SDOH Alcohol Frequency [facility] History SDOH Alcohol Std Drinks [facility] History SDOH Alcohol Binge [facility] Alcohol intake 2023-12-04 00:00:00 2023-12-04 00:00:00 Ex-drinker (finding) [facility] History of Social function 2023-11-06 00:00:00 2023-11-06 00:00:00 [facility] Alcohol Comment 2023-03-22 00:00:00 2023-03-22 00:00:00 qquit when fund out was [facility] Cigarettes smoked current (pack per day) - Reported 2023-03-22 00:00:00 2023-03-22 00:00:00 [facility] Cigarette pack-years 2023-03-22 00:00:00 2023-03-22 00:00:00 [facility] Tobacco use and exposure 2023-03-22 00:00:00 2023-03-22 00:00:00 Smokeless tobacco non-user [facility] Exposure to SARS-CoV-2 (event) 2022-12-10 00:00:00 2022-12-20 14:24:00 Not sure [facility] Sex Assigned At 1995 00:00:00 1995 00:00:00 [facility] Smoking Status Start Date Stop Date Source Smokes tobacco daily 2023-03-22 00:00:00 [facility] Medications Ordered Medication Name Filled Medication Name Start Date Stop Date Current Medication? Ordering Clinician Indication Dosage Frequency Signature (SIG) Comments Components Source sulfamethox azole-trime thoprim (BACTRIM DS) 800-160 mg per tablet 12-03 00:00: 00 12-07 04:59 :00 No [id number] 1{tbl} Take 1 tablet by mouth in the morning and 1 tablet in the evening. Do all this for 3 days. [facility] sulfamethox azole-trime thoprim (BACTRIM DS) 800-160 mg per tablet 11-18 00:00: 00 11-24 04:59 :00 No [id number] 1{tbl} Take 1 tablet by mouth in the morning and 1 tablet in the evening. Do all this for 5 days. [facility] cephALEXin 500 mg capsule 11-12 00:00: 00 11-18 00:00 :00 No [id number] 500mg Take 1 capsule by mouth 4 (four) times daily for 10 days. [facility] etonogestre L (NEXPLANON) implant 68 mg 00:15: 00 11-06 23:46 :00 No [id number] 68mg [facility] metoclopram nabila HCl (REGLAN) tablet 10 mg 09-26 20:15: 00 09-26 19:35 :00 No 10mg 10 mg, Oral, ONCE, 1 dose, On Sat09/26/23 at 1415, Routine [facility] PNV no.95/giancarlo us fum/folic ac ( ORAL) 09-26 07:35: 16 09-26 00:00 :00 No Take by mouth. [facility] rho(D) immune globulin (RHOGAM) syringe 300 mcg 09-26 06:03: 58 Yes 300ug 300 mcg, Intramuscu lar, ONCE, For 1 dose, Conditiona l, Routine [facility] witch Kamryn (TUCKS) 50 % topical pad 09-26 06:03: 53 Yes Topical, Q4HPRN, Starting on Sat09/26/23 at 0003, Until Discontinu ed, Routine, rectal/hem orrhoidal pain [facility] HYDROcodone -acetaminop hen (NORCO 5) 5-325 mg tablet 1 tablet 09-26 06:03: 53 Yes 1{tbl} 1 tablet, Oral, Q6HPRN, Starting on Sat09/26/23 at 0003, Until Discontinu ed, Routine, Pain (scale 7-10) [facility] ibuprofen (IBU) tablet 600 mg 09-26 06:03: 53 Yes 600mg 600 mg, Oral, Q6HPRN, Starting on Sat09/26/23 at 0003, Until Discontinu ed, Routine, Pain (scale 4-6) [facility] acetaminoph en (TYLENOL) tablet 650 mg 09-26 06:03: 53 Yes 650mg 650 mg, Oral, Q6HPRN, Starting on Sat09/26/23 at 0003, Until Discontinu ed, Routine, Pain (scale 1-3) [facility] diphenhydrA MINE (BENADRYL) tablet 25 mg 09-26 06:03: 53 Yes 25mg 25 mg, Oral, Q6HPRN, Starting on Sat09/26/23 at 0003, Until Discontinu ed, Routine, Sleep, Itching [facility] ondansetron (ZOFRAN (PF)) injection 4 mg 09-26 06:03: 53 Yes 4mg 4 mg, Slow IV Push, Q8HPRN, Starting on Sat09/26/23 at 2, Until Discontinu ed, Routine, Nausea and Vomiting (N/V) [facility] simethicone (GAS RELIEF (SIMETHICON E)) chewable tablet 160 mg 09-26 06:03: 53 Yes 160mg 160 mg, Oral, PC+HSPRN, Starting on Sat09/26/23 at 0003, Until Discontinu ed, Routine, Gas [facility] docusate (COLACE) capsule 200 mg 09-26 06:03: 53 Yes 200mg 200 mg, Oral, QDAILYPRN, Starting on Sat09/26/23 at 0003, Until Discontinu ed, Routine, Constipati on [facility] magnesium hydroxide (MILK OF MAGNESIA) 400 mg/5 mL suspension 30 mL 09-26 06:03: 53 Yes 30mL 30 mL, Oral, QDAILYPRN, Starting on Sat09/26/23 at 0003, Until Discontinu ed, Routine, Constipati on [facility] benzocaine- menthol (DERMOPLAST ) 20-0.5 % topical spray 09-26 06:03: 53 Yes Topical, PRN, Starting on Sat09/26/23 at 0003, Until Discontinu ed, Routine, Perineum discomfort [facility] vitamin w/FA tablet 09-26 00:00: 00 11-06 00:00 :00 No [id number] 1{tbl} Take 1 tablet by mouth in the morning. [facility] docusate 100 mg capsule 09-26 00:00: 00 11-06 00:00 :00 No [id number] 200mg Take 2 capsules by mouth once daily as needed for Constipati on. [facility] ferrous sulfate 325 mg (65 mg iron) tablet 09-26 00:00: 00 11-06 00:00 :00 No [id number] 325mg Take 1 tablet by mouth in the morning and 1 tablet in the evening. [facility] ibuprofen 600 mg tablet 09-26 00:00: 00 11-06 00:00 :00 No [id number] 600mg Take 1 tablet by mouth every 6 (six) hours as needed (Pain). Take with food or milk. [facility] PNV no.95/giancarlo us fum/folic ac ( ORAL) 09-25 23:18: 46 Yes Take by mouth. [facility] fentaNYL-ro pivacaine 2 mcg/mL-0.1 % (PF) in NS 200 mL epidural infusion RTU 09-25 16:57: 00 Yes Epidural, CONTINUOUS PRN, Starting on Sat09/25/23 at 1057, Until Discontinu ed, Routine, Intra-op [facility] lidocaine-e pinephrine (XYLOCAINE W/EPINEPHRI NE) 1.5 %-1:200,000 injection 09-25 16:49: 00 Yes Intraderma l, ONCE INTRA PROCEDURE, Starting on Sat09/25/23 at 1049, Until Discontinu ed, Routine, Intra-op [facility] acyclovir (ZOVIRAX) tablet 400 mg 09-25 14:00: 00 09-26 06:03 :57 No 400mg 400 mg, Oral, TID, First dose on Sat09/25/23 at 0800, Until Discontinu ed, BALTA [facility] lactated ringers IV infusion 500 mL 09-25 12:32: 53 09-26 06:03 :56 No 500mL at 999 mL/hr, 500 mL, IV Infusion, PRN - SEE INSTRUCTIO NS, Starting on Sat09/25/23 at 0632, Until Kate 09/26/23 at 0003, Routine [facility] FENTanyl PF (SUBLIMAZE (PF)) injection 100 mcg 09-25 12:32: 53 09-26 06:03 :57 No 100ug 100 mcg, Slow IV Push, Q1HPRN, Starting on Sat09/25/23 at 0632, Until Kate 09/26/23 at 0003, Routine, contractio n pain without an epidural and SVE < 8 cm and Cat I strip [facility] oxytocin (PITOCIN) 30 units in NS 500 mL IV infusion 09-25 12:32: 53 09-26 06:03 :57 No 2mU/min at 2-40 mL/hr, IV Infusion, TITRATE, Starting on Sat09/25/23 at 0632, Until Kate 09/26/23 at 0003, BALTA [facility] D5W-LR IV infusion 1,000 mL 09-25 12:32: 53 09-26 06:03 :56 No 1000mL at 1-125 mL/hr, IV Infusion, TITRATE, Starting on Sat09/25/23 at 0632, Until Kate 09/26/23 at 0003, Routine [facility] PNV no.95/giancarlo us fum/folic ac ( ORAL) 1-12 14:40: 57 Yes Take by mouth. [facility] nirmatrelvi r-ritonavir (PAXLOVID) 300 mg (150 mg x 2)-100 mg tablet 2022-09 2-29 00:00: 00 Yes 3{tbl} Take 3 tablets by mouth in the morning and 3 tablets in the evening. [facility] PNV no.95/giancarlo us fum/folic ac ( ORAL) 2022-09 2-15 13:12: 22 Yes Take by mouth. [facility] acyclovir 400 mg tablet 2022-09 2- 00:00: 00 09-26 00:00 :00 No [id number] 400mg Take 1 tablet by mouth in the morning and 1 tablet at noon and 1 tablet in the evening. [facility] blood sugar diagnostic (BLOOD GLUCOSE TEST) strip 2022-09 0-31 00:00: 00 09-26 00:00 :00 No Check gluocose 4 times a day [facility] sulfamethox azole-trime thoprim (BACTRIM DS) 800-160 mg per tablet 908 00:00: 00 05-28 04:59 :00 No [id number] 1{tbl} Take 1 tablet by mouth in the morning and 1 tablet in the evening. Do all this for 10 days. [facility] cephALEXin (KEFLEX) 500 mg capsule 05-06 00:00: 00 05-14 04:59 :00 No [id number] 500mg Take 1 capsule by mouth in the morning and 1 capsule at noon and 1 capsule in the evening. Do all this for 7 days. [facility] Blood-Gluco se Meter Kit 03-27 00:00: 00 09-26 00:00 :00 No Check glucose 4 times a day. [facility] Lancets Misc 03-27 00:00: 00 09-26 00:00 :00 No Check glucose 4 times a day [facility] Alcohol Swabs (ALCOHOL PADS) PadM 03-27 00:00: 00 09-26 00:00 :00 No Apply to area(s) 4 (four) times daily. [facility] blood sugar diagnostic (BLOOD GLUCOSE TEST) strip 03-27 00:00: 00 07-09 00:00 :00 No Check gluocose 4 times a day [facility] PNV no.95/giancarlo us fum/folic ac ( ORAL) 03-22 09:00: 18 Yes Take by mouth. [facility] pyridoxine, VITAMIN B-6, (VITAMIN B-6) 25 mg tablet 03-22 00:00: 00 09-26 00:00 :00 No [id number] 25mg Take 1 tablet by mouth every 6 (six) hours as needed for Nausea and Vomiting (N/V). [facility] doxylamine (UNISOM, DOXYLAMINE, ) 25 mg tablet 03-22 00:00: 00 09-26 00:00 :00 No [id number] 25mg Take 1 tablet by mouth at bedtime as needed for Nausea and Vomiting (N/V). [facility] metoclopram nabila HCl 10 mg tablet 03-22 00:00: 00 09-26 00:00 :00 No [id number] 10mg Take 1 tablet by mouth every 6 (six) hours as needed for Nausea and Vomiting (N/V). [facility] ondansetron (ZOFRAN-ODT ) disintegrat ing tablet 4 mg 03-07 05:00: 00 03-07 03:55 :00 No 4mg 4 mg, Oral, ONCE, 1 dose, On Kate 03/07/23 at 0000, BALTA [facility] doxylamine- pyridoxine, vit B6, (DICLEGIS) 10-10 mg per tablet 03-06 00:00: 00 03-22 00:00 :00 No [id number] 1{tbl} Take 1 tablet by mouth 4 (four) times daily as needed for Nausea and Vomiting (N/V). [facility] No known medications 2021-09 13:50: 57 No No known medication s [facility] No known medications 12-14 09:03: 50 No [facility] Yes Florencio Mitchell 1 tablet [facility] Immunizations Ordered Immunization Name Filled Immunization Name Date Status Comments Source Influenza Virus Vaccine Quad .5 mL IM 6+ MO 2021-12-14 00:00:00 Completed [facility] Influenza Virus Vaccine Quad .5 mL IM 6+ MO 2021-12-14 00:00:00 Completed [facility] Influenza Virus Vaccine Quad .5 mL IM 6+ MO 2021-12-14 00:00:00 Completed [facility] Influenza Virus Vaccine Quad .5 mL IM 6+ MO 2021-12-14 00:00:00 Completed [facility] Influenza Virus Vaccine Quad .5 mL IM 6+ MO 2021-12-14 00:00:00 Completed [facility] Influenza Virus Vaccine Quad .5 mL IM 6+ MO 2021-12-14 00:00:00 Completed [facility] Influenza Virus Vaccine Quad .5 mL IM 6+ MO 2021-12-14 00:00:00 Completed [facility] Influenza Virus Vaccine Quad .5 mL IM 6+ MO 2021-12-14 00:00:00 Completed [facility] Influenza Virus Vaccine Quad .5 mL IM 6+ MO 2021-12-14 00:00:00 Completed [facility] Influenza Virus Vaccine Quad .5 mL IM 6+ MO (FLUZONE/FLULAVAL/FL UARIX) 2021-12-14 00:00:00 Completed [facility] Influenza Virus Vaccine Quad .5 mL IM 6+ MO (FLUZONE/FLULAVAL/FL UARIX) 2021-12-14 00:00:00 Completed [facility] Influenza Virus Vaccine Quad .5 mL IM 6+ MO 2021-12-14 00:00:00 Completed [facility] Influenza Virus Vaccine Quad .5 mL IM 6+ MO 2021-12-14 00:00:00 Completed [facility] Influenza Virus Vaccine Quad .5 mL IM 6+ MO 2021-12-14 00:00:00 Completed [facility] Influenza Virus Vaccine Quad .5 mL IM 6+ MO 2021-12-14 00:00:00 Completed [facility] Influenza Virus Vaccine Quad .5 mL IM 6+ MO 2021-12-14 00:00:00 Completed [facility] Influenza Virus Vaccine Quad .5 mL IM 6+ MO 2021-12-14 00:00:00 Completed [facility] Influenza Virus Vaccine Quad .5 mL IM 6+ MO 2021-12-14 00:00:00 Completed [facility] Influenza Virus Vaccine Quad .5 mL IM 6+ MO 2021-12-14 00:00:00 Completed [facility] Influenza Virus Vaccine Quad .5 mL IM 6+ MO 2021-12-14 00:00:00 Completed [facility] Influenza Virus Vaccine Quad .5 mL IM 6+ MO 2021-12-14 00:00:00 Completed [facility] Influenza Virus Vaccine Quad .5 mL IM 6+ MO 2021-12-14 00:00:00 Completed [facility] Influenza Virus Vaccine Quad .5 mL IM 6+ MO 2021-12-14 00:00:00 Completed [facility] Influenza Virus Vaccine Quad .5 mL IM 6+ MO 2021-12-14 00:00:00 Completed [facility] Influenza Virus Vaccine Quad .5 mL IM 6+ MO 2021-12-14 00:00:00 Completed [facility] HPV9 2020-12-07 00:00:00 Completed [facility] HPV9 2020-12-07 00:00:00 Completed [facility] HPV9 2020-12-07 00:00:00 Completed [facility] HPV9 2020-12-07 00:00:00 Completed [facility] HPV9 2020-12-07 00:00:00 Completed [facility] HPV9 2020-12-07 00:00:00 Completed [facility] HPV9 2020-12-07 00:00:00 Completed [facility] HPV9 2020-12-07 00:00:00 Completed [facility] HPV9 2020-12-07 00:00:00 Completed [facility] HPV9 2020-12-07 00:00:00 Completed [facility] HPV9 2020-12-07 00:00:00 Completed [facility] HPV9 2020-12-07 00:00:00 Completed [facility] HPV9 2020-12-07 00:00:00 Completed [facility] HPV9 2020-12-07 00:00:00 Completed [facility] HPV9 2020-12-07 00:00:00 Completed [facility] HPV9 2020-12-07 00:00:00 Completed [facility] HPV9 2020-12-07 00:00:00 Completed [facility] HPV9 2020-12-07 00:00:00 Completed [facility] HPV9 2020-12-07 00:00:00 Completed [facility] HPV9 2020-12-07 00:00:00 Completed [facility] HPV9 2020-12-07 00:00:00 Completed [facility] HPV9 2020-12-07 00:00:00 Completed [facility] HPV9 2020-12-07 00:00:00 Completed [facility] HPV9 2020-12-07 00:00:00 Completed [facility] HPV9 2020-12-07 00:00:00 Completed [facility] HPV9 2019-09-17 00:00:00 Completed [facility] HPV9 2019-09-17 00:00:00 Completed [facility] HPV9 2019-09-17 00:00:00 Completed [facility] HPV9 2019-09-17 00:00:00 Completed [facility] HPV9 2019-09-17 00:00:00 Completed [facility] HPV9 2019-09-17 00:00:00 Completed [facility] HPV9 2019-09-17 00:00:00 Completed [facility] HPV9 2019-09-17 00:00:00 Completed [facility] HPV9 2019-09-17 00:00:00 Completed [facility] HPV9 2019-09-17 00:00:00 Completed [facility] HPV9 2019-09-17 00:00:00 Completed [facility] HPV9 2019-09-17 00:00:00 Completed [facility] HPV9 2019-09-17 00:00:00 Completed [facility] HPV9 2019-09-17 00:00:00 Completed [facility] HPV9 2019-09-17 00:00:00 Completed [facility] HPV9 2019-09-17 00:00:00 Completed [facility] HPV9 2019-09-17 00:00:00 Completed [facility] HPV9 2019-09-17 00:00:00 Completed [facility] HPV9 2019-09-17 00:00:00 Completed [facility] HPV9 2019-09-17 00:00:00 Completed [facility] HPV9 2019-09-17 00:00:00 Completed [facility] HPV9 2019-09-17 00:00:00 Completed [facility] HPV9 2019-09-17 00:00:00 Completed [facility] HPV9 2019-09-17 00:00:00 Completed [facility] HPV9 2019-09-17 00:00:00 Completed [facility] HPV9 2019-08-05 00:00:00 Completed [facility] Influenza Virus Vaccine Quad .5 mL IM 6+ MO 2019-08-05 00:00:00 Completed [facility] HPV9 2019-08-05 00:00:00 Completed [facility] Influenza Virus Vaccine Quad .5 mL IM 6+ MO 2019-08-05 00:00:00 Completed [facility] HPV9 2019-08-05 00:00:00 Completed [facility] Influenza Virus Vaccine Quad .5 mL IM 6+ MO 2019-08-05 00:00:00 Completed [facility] HPV9 2019-08-05 00:00:00 Completed [facility] Influenza Virus Vaccine Quad .5 mL IM 6+ MO 2019-08-05 00:00:00 Completed [facility] HPV9 2019-08-05 00:00:00 Completed [facility] Influenza Virus Vaccine Quad .5 mL IM 6+ MO 2019-08-05 00:00:00 Completed [facility] [facility] HPV9 2019-08-05 00:00:00 Completed [facility] Influenza Virus Vaccine Quad .5 mL IM 6+ MO 2019-08-05 00:00:00 Completed [facility] HPV9 2019-08-05 00:00:00 Completed [facility] Influenza Virus Vaccine Quad .5 mL IM 6+ MO 2019-08-05 00:00:00 Completed [facility] HPV9 2019-08-05 00:00:00 Completed [facility] Influenza Virus Vaccine Quad .5 mL IM 6+ MO 2019-08-05 00:00:00 Completed [facility] HPV9 2019-08-05 00:00:00 Completed [facility] Influenza Virus Vaccine Quad .5 mL IM 6+ MO 2019-08-05 00:00:00 Completed [facility] HPV9 2019-08-05 00:00:00 Completed [facility] Influenza Virus Vaccine Quad .5 mL IM 6+ MO (FLUZONE/FLULAVAL/FL UARIX) 2019-08-05 00:00:00 Completed [facility] HPV9 2019-08-05 00:00:00 Completed [facility] Influenza Virus Vaccine Quad .5 mL IM 6+ MO (FLUZONE/FLULAVAL/FL UARIX) 2019-08-05 00:00:00 Completed [facility] HPV9 2019-08-05 00:00:00 Completed [facility] Influenza Virus Vaccine Quad .5 mL IM 6+ MO 2019-08-05 00:00:00 Completed [facility] HPV9 2019-08-05 00:00:00 Completed [facility] Influenza Virus Vaccine Quad .5 mL IM 6+ MO 2019-08-05 00:00:00 Completed [facility] HPV9 2019-08-05 00:00:00 Completed [facility] Influenza Virus Vaccine Quad .5 mL IM 6+ MO 2019-08-05 00:00:00 Completed [facility] HPV9 2019-08-05 00:00:00 Completed [facility] Influenza Virus Vaccine Quad .5 mL IM 6+ MO 2019-08-05 00:00:00 Completed [facility] HPV9 2019-08-05 00:00:00 Completed [facility] Influenza Virus Vaccine Quad .5 mL IM 6+ MO 2019-08-05 00:00:00 Completed [facility] HPV9 2019-08-05 00:00:00 Completed [facility] Influenza Virus Vaccine Quad .5 mL IM 6+ MO 2019-08-05 00:00:00 Completed [facility] HPV9 2019-08-05 00:00:00 Completed [facility] Influenza Virus Vaccine Quad .5 mL IM 6+ MO 2019-08-05 00:00:00 Completed [facility] HPV9 2019-08-05 00:00:00 Completed [facility] Influenza Virus Vaccine Quad .5 mL IM 6+ MO 2019-08-05 00:00:00 Completed [facility] HPV9 2019-08-05 00:00:00 Completed [facility] Influenza Virus Vaccine Quad .5 mL IM 6+ MO 2019-08-05 00:00:00 Completed [facility] HPV9 2019-08-05 00:00:00 Completed [facility] Influenza Virus Vaccine Quad .5 mL IM 6+ MO 2019-08-05 00:00:00 Completed [facility] HPV9 2019-08-05 00:00:00 Completed [facility] Influenza Virus Vaccine Quad .5 mL IM 6+ MO 2019-08-05 00:00:00 Completed [facility] HPV9 2019-08-05 00:00:00 Completed [facility] Influenza Virus Vaccine Quad .5 mL IM 6+ MO 2019-08-05 00:00:00 Completed [facility] HPV9 2019-08-05 00:00:00 Completed [facility] Influenza Virus Vaccine Quad .5 mL IM 6+ MO 2019-08-05 00:00:00 Completed [facility] HPV9 2019-08-05 00:00:00 Completed [facility] Influenza Virus Vaccine Quad .5 mL IM 6+ MO 2019-08-05 00:00:00 Completed [facility] TDAP 2018-05-08 00:00:00 Completed [facility] TDAP 2018-05-08 00:00:00 Completed [facility] TDAP 2018-05-08 00:00:00 Completed [facility] TDAP 2018-05-08 00:00:00 Completed [facility] TDAP 2018-05-08 00:00:00 Completed [facility] TDAP 2018-05-08 00:00:00 Completed [facility] TDAP 2018-05-08 00:00:00 Completed [facility] TDAP 2018-05-08 00:00:00 Completed [facility] TDAP 2018-05-08 00:00:00 Completed [facility] TDAP 2018-05-08 00:00:00 Completed [facility] TDAP 2018-05-08 00:00:00 Completed [facility] TDAP 2018-05-08 00:00:00 Completed [facility] TDAP 2018-05-08 00:00:00 Completed [facility] TDAP 2018-05-08 00:00:00 Completed [facility] TDAP 2018-05-08 00:00:00 Completed [facility] TDAP 2018-05-08 00:00:00 Completed [facility] TDAP 2018-05-08 00:00:00 Completed [facility] TDAP 2018-05-08 00:00:00 Completed [facility] TDAP 2018-05-08 00:00:00 Completed [facility] TDAP 2018-05-08 00:00:00 Completed [facility] TDAP 2018-05-08 00:00:00 Completed [facility] TDAP 2018-05-08 00:00:00 Completed [facility] TDAP 2018-05-08 00:00:00 Completed [facility] TDAP 2018-05-08 00:00:00 Completed [facility] TDAP 2018-05-08 00:00:00 Completed [facility] TDAP 2008-11-26 00:00:00 Completed [facility] Varicella (varivax)(chicken pox) 2008-11-26 00:00:00 Completed [facility] Meningococcal Polysaccharide (groups A, C, Y and W-135) conjugate vaccine (MCV4P) 2008-11-26 00:00:00 Completed [facility] TDAP 2008-11-26 00:00:00 Completed [facility] Varicella (varivax)(chicken pox) 2008-11-26 00:00:00 Completed [facility] Meningococcal Polysaccharide (groups A, C, Y and W-135) conjugate vaccine (MCV4P) 2008-11-26 00:00:00 Completed [facility] TDAP 2008-11-26 00:00:00 Completed [facility] Varicella (varivax)(chicken pox) 2008-11-26 00:00:00 Completed [facility] Meningococcal Polysaccharide (groups A, C, Y and W-135) conjugate vaccine (MCV4P) 2008-11-26 00:00:00 Completed [facility] TDAP 2008-11-26 00:00:00 Completed [facility] Varicella (varivax)(chicken pox) 2008-11-26 00:00:00 Completed [facility] Meningococcal Polysaccharide (groups A, C, Y and W-135) conjugate vaccine (MCV4P) 2008-11-26 [facility] Varicella (varivax)(chicken pox) 2008-11-26 00:00:00 Completed [facility] Meningococcal Polysaccharide (groups A, C, Y and W-135) conjugate vaccine (MCV4P) 2008-11-26 [facility] Varicella (varivax)(chicken pox) 2008-11-26 00:00:00 Completed [facility] Meningococcal Polysaccharide (groups A, C, Y and W-135) conjugate vaccine (MCV4P) 2008-11-26 00:00:00 Completed [facility] TDAP 2008-11-26 00:00:00 Completed [facility] Varicella (varivax)(chicken pox) 2008-11-26 00:00:00 Completed [facility] Meningococcal Polysaccharide (groups A, C, Y and W-135) conjugate vaccine (MCV4P) 2008-11-26 00:00:00 Completed [facility] TDAP 2008-11-26 00:00:00 Completed [facility] Varicella (varivax)(chicken pox) 2008-11-26 00:00:00 Completed [facility] Meningococcal Polysaccharide (groups A, C, Y and W-135) conjugate vaccine (MCV4P) 2008-11-26 00:00:00 Completed [facility] TDAP 2008-11-26 00:00:00 Completed [facility] Varicella (varivax)(chicken pox) 2008-11-26 00:00:00 Completed [facility] Meningococcal Polysaccharide (groups A, C, Y and W-135) conjugate vaccine (MCV4P) 2008-11-26 00:00:00 Completed [facility] TDAP 2008-11-26 00:00:00 Completed [facility] Varicella (varivax)(chicken pox) 2008-11-26 00:00:00 Completed [facility] Meningococcal Polysaccharide (groups A, C, Y and W-135) conjugate vaccine (MCV4P) 2008-11-26 00:00:00 Completed [facility] TDAP 2008-11-26 00:00:00 Completed [facility] Varicella (varivax)(chicken pox) 2008-11-26 00:00:00 Completed [facility] Meningococcal Polysaccharide (groups A, C, Y and W-135) conjugate vaccine (MCV4P) 2008-11-26 00:00:00 Completed [facility] TDAP 2008-11-26 00:00:00 Completed [facility] Varicella (varivax)(chicken pox) 2008-11-26 00:00:00 Completed [facility] Meningococcal Polysaccharide (groups A, C, Y and W-135) conjugate vaccine (MCV4P) 2008-11-26 00:00:00 Completed [facility] TDAP 2008-11-26 00:00:00 Completed [facility] Varicella (varivax)(chicken pox) 2008-11-26 00:00:00 Completed [facility] Meningococcal Polysaccharide (groups A, C, Y and W-135) conjugate vaccine (MCV4P) 2008-11-26 00:00:00 Completed [facility] TDAP 2008-11-26 00:00:00 Completed [facility] Varicella (varivax)(chicken pox) 2008-11-26 00:00:00 Completed [facility] Meningococcal Polysaccharide (groups A, C, Y and W-135) conjugate vaccine (MCV4P) 2008-11-26 00:00:00 Completed [facility] TDAP 2008-11-26 00:00:00 Completed [facility] Varicella (varivax)(chicken pox) 2008-11-26 00:00:00 Completed [facility] Meningococcal Polysaccharide (groups A, C, Y and W-135) conjugate vaccine (MCV4P) 2008-11-26 00:00:00 Completed [facility] TDAP 2008-11-26 00:00:00 Completed [facility] Varicella (varivax)(chicken pox) 2008-11-26 00:00:00 Completed [facility] Meningococcal Polysaccharide (groups A, C, Y and W-135) conjugate vaccine (MCV4P) 2008-11-26 00:00:00 Completed [facility] TDAP 2008-11-26 00:00:00 Completed [facility] Varicella (varivax)(chicken pox) 2008-11-26 00:00:00 Completed [facility] Meningococcal Polysaccharide (groups A, C, Y and W-135) conjugate vaccine (MCV4P) 2008-11-26 00:00:00 Completed [facility] TDAP 2008-11-26 00:00:00 Completed [facility] Varicella (varivax)(chicken pox) 2008-11-26 00:00:00 Completed [facility] Meningococcal Polysaccharide (groups A, C, Y and W-135) conjugate vaccine (MCV4P) 2008-11-26 00:00:00 Completed [facility] TDAP 2008-11-26 00:00:00 Completed [facility] Varicella (varivax)(chicken pox) 2008-11-26 00:00:00 Completed [facility] Meningococcal Polysaccharide (groups A, C, Y and W-135) conjugate vaccine (MCV4P) 2008-11-26 00:00:00 Completed [facility] TDAP 2008-11-26 00:00:00 Completed [facility] Varicella (varivax)(chicken pox) 2008-11-26 00:00:00 Completed [facility] Meningococcal Polysaccharide (groups A, C, Y and W-135) conjugate vaccine (MCV4P) 2008-11-26 00:00:00 Completed [facility] TDAP 2008-11-26 00:00:00 Completed [facility] Varicella (varivax)(chicken pox) 2008-11-26 00:00:00 Completed [facility] Meningococcal Polysaccharide (groups A, C, Y and W-135) conjugate vaccine (MCV4P) 2008-11-26 00:00:00 Completed [facility] TDAP 2008-11-26 00:00:00 Completed [facility] Varicella (varivax)(chicken pox) 2008-11-26 00:00:00 Completed [facility] Meningococcal Polysaccharide (groups A, C, Y and W-135) conjugate vaccine (MCV4P) 2008-11-26 00:00:00 Completed [facility] MMR 2001-02-04 00:00:00 Completed [facility] IPV 2001-02-04 00:00:00 Completed [facility] DTaP, Unspecified Formulation 2001-02-04 00:00:00 Completed [facility] MMR 2001-02-04 00:00:00 Completed [facility] IPV 2001-02-04 00:00:00 Completed [facility] DTaP, Unspecified Formulation 2001-02-04 00:00:00 Completed [facility] MMR 2001-02-04 00:00:00 Completed [facility] IPV 2001-02-04 00:00:00 Completed [facility] DTaP, Unspecified Formulation 2001-02-04 00:00:00 Completed [facility] MMR 2001-02-04 00:00:00 Completed [facility] IPV 2001-02-04 00:00:00 Completed [facility] DTaP, Unspecified Formulation 2001-02-04 00:00:00 Completed [facility] MMR 2001-02-04 00:00:00 Completed [facility] IPV 2001-02-04 00:00:00 Completed [facility] DTaP, Unspecified Formulation 2001-02-04 00:00:00 Completed [facility] MMR 2001-02-04 00:00:00 Completed [facility] IPV 2001-02-04 00:00:00 Completed [facility] DTaP, Unspecified Formulation 2001-02-04 00:00:00 Completed [facility] MMR 2001-02-04 00:00:00 Completed [facility] IPV 2001-02-04 00:00:00 Completed [facility] DTaP, Unspecified Formulation 2001-02-04 00:00:00 Completed [facility] MMR 2001-02-04 00:00:00 Completed [facility] IPV 2001-02-04 00:00:00 Completed [facility] DTaP, Unspecified Formulation 2001-02-04 00:00:00 Completed [facility] MMR 2001-02-04 00:00:00 Completed [facility] IPV 2001-02-04 00:00:00 Completed [facility] DTaP, Unspecified Formulation 2001-02-04 00:00:00 Completed [facility] MMR 2001-02-04 00:00:00 Completed [facility] IPV 2001-02-04 00:00:00 Completed [facility] DTaP, Unspecified Formulation 2001-02-04 00:00:00 Completed [facility] MMR 2001-02-04 00:00:00 Completed [facility] IPV 2001-02-04 00:00:00 Completed [facility] DTaP, Unspecified Formulation 2001-02-04 00:00:00 Completed [facility] MMR 2001-02-04 00:00:00 Completed [facility] IPV 2001-02-04 00:00:00 Completed [facility] DTaP, Unspecified Formulation 2001-02-04 00:00:00 Completed [facility] MMR 2001-02-04 00:00:00 Completed [facility] IPV 2001-02-04 00:00:00 Completed [facility] DTaP, Unspecified Formulation 2001-02-04 00:00:00 Completed [facility] MMR 2001-02-04 00:00:00 Completed [facility] IPV 2001-02-04 00:00:00 Completed [facility] DTaP, Unspecified Formulation 2001-02-04 00:00:00 Completed [facility] MMR 2001-02-04 00:00:00 Completed [facility] IPV 2001-02-04 00:00:00 Completed [facility] DTaP, Unspecified Formulation 2001-02-04 00:00:00 Completed [facility] MMR 2001-02-04 00:00:00 Completed [facility] IPV 2001-02-04 00:00:00 Completed [facility] DTaP, Unspecified Formulation 2001-02-04 00:00:00 Completed [facility] MMR 2001-02-04 00:00:00 Completed [facility] IPV 2001-02-04 00:00:00 Completed [facility] DTaP, Unspecified Formulation 2001-02-04 00:00:00 Completed [facility] MMR 2001-02-04 00:00:00 Completed [facility] IPV 2001-02-04 00:00:00 Completed [facility] DTaP, Unspecified Formulation 2001-02-04 00:00:00 Completed [facility] MMR 2001-02-04 00:00:00 Completed [facility] IPV 2001-02-04 00:00:00 Completed [facility] DTaP, Unspecified Formulation 2001-02-04 00:00:00 Completed [facility] MMR 2001-02-04 00:00:00 Completed [facility] IPV 2001-02-04 00:00:00 Completed [facility] DTaP, Unspecified Formulation 2001-02-04 00:00:00 Completed [facility] MMR 2001-02-04 00:00:00 Completed [facility] IPV 2001-02-04 00:00:00 Completed [facility] DTaP, Unspecified Formulation 2001-02-04 00:00:00 Completed [facility] MMR 2001-02-04 00:00:00 Completed [facility] IPV 2001-02-04 00:00:00 Completed [facility] DTaP, Unspecified Formulation 2001-02-04 00:00:00 Completed [facility] MMR 1998-07-29 00:00:00 Completed [facility] DPT/HIB 1998-07-29 00:00:00 Completed [facility] MMR 1998-07-29 00:00:00 Completed [facility] DPT/HIB 1998-07-29 00:00:00 Completed [facility] MMR 1998-07-29 00:00:00 Completed [facility] DPT/HIB 1998-07-29 00:00:00 Completed [facility] MMR 1998-07-29 00:00:00 Completed [facility] DPT/HIB 1998-07-29 00:00:00 Completed [facility] MMR 1998-07-29 00:00:00 Completed [facility] DPT/HIB 1998-07-29 00:00:00 Completed [facility] MMR 1998-07-29 00:00:00 Completed [facility] DPT/HIB 1998-07-29 00:00:00 Completed [facility] MMR 1998-07-29 00:00:00 Completed [facility] DPT/HIB 1998-07-29 00:00:00 Completed [facility] MMR 1998-07-29 00:00:00 Completed [facility] DPT/HIB 1998-07-29 00:00:00 Completed [facility] MMR 1998-07-29 00:00:00 Completed [facility] DPT/HIB 1998-07-29 00:00:00 Completed [facility] MMR 1998-07-29 00:00:00 Completed [facility] DPT/HIB 1998-07-29 00:00:00 Completed [facility] MMR 1998-07-29 00:00:00 Completed [facility] DPT/HIB 1998-07-29 00:00:00 Completed [facility] MMR 1998-07-29 00:00:00 Completed [facility] DPT/HIB 1998-07-29 00:00:00 Completed [facility] MMR 1998-07-29 00:00:00 Completed [facility] DPT/HIB 1998-07-29 00:00:00 Completed [facility] MMR 1998-07-29 00:00:00 Completed [facility] DPT/HIB 1998-07-29 00:00:00 Completed [facility] MMR 1998-07-29 00:00:00 Completed [facility] DPT/HIB 1998-07-29 00:00:00 Completed [facility] MMR 1998-07-29 00:00:00 Completed [facility] DPT/HIB 1998-07-29 00:00:00 Completed [facility] MMR 1998-07-29 00:00:00 Completed [facility] DPT/HIB 1998-07-29 00:00:00 Completed [facility] MMR 1998-07-29 00:00:00 Completed [facility] DPT/HIB 1998-07-29 00:00:00 Completed [facility] MMR 1998-07-29 00:00:00 Completed [facility] DPT/HIB 1998-07-29 00:00:00 Completed [facility] MMR 1998-07-29 00:00:00 Completed [facility] DPT/HIB 1998-07-29 00:00:00 Completed [facility] MMR 1998-07-29 00:00:00 Completed [facility] DPT/HIB 1998-07-29 00:00:00 Completed [facility] MMR 1998-07-29 00:00:00 Completed [facility] DPT/HIB 1998-07-29 00:00:00 Completed [facility] Poliovirus, Live, Oral, Trivalent 1998-02-04 00:00:00 Completed [facility] Varicella (varivax)(chicken pox) 1998-02-04 00:00:00 Completed [facility] Poliovirus, Live, Oral, Trivalent 1998-02-04 00:00:00 Completed [facility] Varicella (varivax)(chicken pox) 1998-02-04 00:00:00 Completed [facility] Poliovirus, Live, Oral, Trivalent 1998-02-04 00:00:00 Completed [facility] Varicella (varivax)(chicken pox) 1998-02-04 00:00:00 Completed [facility] Poliovirus, Live, Oral, Trivalent 1998-02-04 00:00:00 Completed [facility] Varicella (varivax)(chicken pox) 1998-02-04 00:00:00 Completed [facility] Poliovirus, Live, Oral, Trivalent 1998-02-04 00:00:00 Completed [facility] Varicella (varivax)(chicken pox) 1998-02-04 00:00:00 Completed [facility] Poliovirus, Live, Oral, Trivalent 1998-02-04 00:00:00 Completed [facility] Varicella (varivax)(chicken pox) 1998-02-04 00:00:00 Completed [facility] Poliovirus, Live, Oral, Trivalent 1998-02-04 00:00:00 Completed [facility] Varicella (varivax)(chicken pox) 1998-02-04 00:00:00 Completed [facility] Poliovirus, Live, Oral, Trivalent 1998-02-04 00:00:00 Completed [facility] Varicella (varivax)(chicken pox) 1998-02-04 00:00:00 Completed [facility] Poliovirus, Live, Oral, Trivalent 1998-02-04 00:00:00 Completed [facility] Varicella (varivax)(chicken pox) 1998-02-04 00:00:00 Completed [facility] Poliovirus, Live, Oral, Trivalent 1998-02-04 00:00:00 Completed [facility] Varicella (varivax)(chicken pox) 1998-02-04 00:00:00 Completed [facility] Poliovirus, Live, Oral, Trivalent 1998-02-04 00:00:00 Completed [facility] Varicella (varivax)(chicken pox) 1998-02-04 00:00:00 Completed [facility] Poliovirus, Live, Oral, Trivalent 1998-02-04 00:00:00 Completed [facility] Varicella (varivax)(chicken pox) 1998-02-04 00:00:00 Completed [facility] Poliovirus, Live, Oral, Trivalent 1998-02-04 00:00:00 Completed [facility] Varicella (varivax)(chicken pox) 1998-02-04 00:00:00 Completed [facility] Poliovirus, Live, Oral, Trivalent 1998-02-04 00:00:00 Completed [facility] Varicella (varivax)(chicken pox) 1998-02-04 00:00:00 Completed [facility] Poliovirus, Live, Oral, Trivalent 1998-02-04 00:00:00 Completed [facility] Varicella (varivax)(chicken pox) 1998-02-04 00:00:00 Completed [facility] Poliovirus, Live, Oral, Trivalent 1998-02-04 00:00:00 Completed [facility] Varicella (varivax)(chicken pox) 1998-02-04 00:00:00 Completed [facility] Poliovirus, Live, Oral, Trivalent 1998-02-04 00:00:00 Completed [facility] Varicella (varivax)(chicken pox) 1998-02-04 00:00:00 Completed [facility] Poliovirus, Live, Oral, Trivalent 1998-02-04 00:00:00 Completed [facility] Varicella (varivax)(chicken pox) 1998-02-04 00:00:00 Completed [facility] Poliovirus, Live, Oral, Trivalent 1998-02-04 00:00:00 Completed [facility] Varicella (varivax)(chicken pox) 1998-02-04 00:00:00 Completed [facility] Poliovirus, Live, Oral, Trivalent 1998-02-04 00:00:00 Completed [facility] Varicella (varivax)(chicken pox) 1998-02-04 00:00:00 Completed [facility] Poliovirus, Live, Oral, Trivalent 1998-02-04 00:00:00 Completed [facility] Varicella (varivax)(chicken pox) 1998-02-04 00:00:00 Completed [facility] Poliovirus, Live, Oral, Trivalent 1998-02-04 00:00:00 Completed [facility] Varicella (varivax)(chicken pox) 1998-02-04 00:00:00 Completed [facility] Hep B, Adol or Pedi Dosage 1997-10-28 00:00:00 Completed [facility] Hep B, Adol or Pedi Dosage 1997-10-28 00:00:00 Completed [facility] Hep B, Adol or Pedi Dosage 1997-10-28 00:00:00 Completed [facility] Hep B, Adol or Pedi Dosage 1997-10-28 00:00:00 Completed [facility] Hep B, Adol or Pedi Dosage 1997-10-28 00:00:00 Completed [facility] Hep B, Adol or Pedi Dosage 1997-10-28 00:00:00 Completed [facility] Hep B, Adol or Pedi Dosage 1997-10-28 00:00:00 Completed [facility] Hep B, Adol or Pedi Dosage 1997-10-28 00:00:00 Completed [facility] Hep B, Adol or Pedi Dosage 1997-10-28 00:00:00 Completed [facility] Hep B, Adol or Pedi Dosage 1997-10-28 00:00:00 Completed [facility] Hep B, Adol or Pedi Dosage 1997-10-28 00:00:00 Completed [facility] Hep B, Adol or Pedi Dosage 1997-10-28 00:00:00 Completed [facility] Hep B, Adol or Pedi Dosage 1997-10-28 00:00:00 Completed [facility] Hep B, Adol or Pedi Dosage 1997-10-28 00:00:00 Completed [facility] Hep B, Adol or Pedi Dosage 1997-10-28 00:00:00 Completed [facility] Hep B, Adol or Pedi Dosage 1997-10-28 00:00:00 Completed [facility] Hep B, Adol or Pedi Dosage 1997-10-28 00:00:00 Completed [facility] Hep B, Adol or Pedi Dosage 1997-10-28 00:00:00 Completed [facility] Hep B, Adol or Pedi Dosage 1997-10-28 00:00:00 Completed [facility] Hep B, Adol or Pedi Dosage 1997-10-28 00:00:00 Completed [facility] Hep B, Adol or Pedi Dosage 1997-10-28 00:00:00 Completed [facility] Hep B, Adol or Pedi Dosage 1997-10-28 00:00:00 Completed [facility] DTaP, Unspecified Formulation 1997-06-29 00:00:00 Completed [facility] Hib-HbOC 1997-06-29 00:00:00 Completed [facility] DTaP, Unspecified Formulation 1997-06-29 00:00:00 Completed [facility] Hib-HbOC 1997-06-29 00:00:00 Completed [facility] DTaP, Unspecified Formulation 1997-06-29 00:00:00 Completed [facility] Hib-HbOC 1997-06-29 00:00:00 Completed [facility] DTaP, Unspecified Formulation 1997-06-29 00:00:00 Completed [facility] Hib-HbOC 1997-06-29 00:00:00 Completed [facility] DTaP, Unspecified Formulation 1997-06-29 00:00:00 Completed [facility] Hib-HbOC 1997-06-29 00:00:00 Completed [facility] DTaP, Unspecified Formulation 1997-06-29 00:00:00 Completed [facility] Hib-HbOC 1997-06-29 00:00:00 Completed [facility] DTaP, Unspecified Formulation 1997-06-29 00:00:00 Completed [facility] Hib-HbOC 1997-06-29 00:00:00 Completed [facility] DTaP, Unspecified Formulation 1997-06-29 00:00:00 Completed [facility] Hib-HbOC 1997-06-29 00:00:00 Completed [facility] DTaP, Unspecified Formulation 1997-06-29 00:00:00 Completed [facility] Hib-HbOC 1997-06-29 00:00:00 Completed [facility] DTaP, Unspecified Formulation 1997-06-29 00:00:00 Completed [facility] Hib-HbOC 1997-06-29 00:00:00 Completed [facility] DTaP, Unspecified Formulation 1997-06-29 00:00:00 Completed [facility] Hib-HbOC 1997-06-29 00:00:00 Completed [facility] DTaP, Unspecified Formulation 1997-06-29 00:00:00 Completed [facility] Hib-HbOC 1997-06-29 00:00:00 Completed [facility] DTaP, Unspecified Formulation 1997-06-29 00:00:00 Completed [facility] Hib-HbOC 1997-06-29 00:00:00 Completed [facility] DTaP, Unspecified Formulation 1997-06-29 00:00:00 Completed [facility] Hib-HbOC 1997-06-29 00:00:00 Completed [facility] DTaP, Unspecified Formulation 1997-06-29 00:00:00 Completed [facility] Hib-HbOC 1997-06-29 00:00:00 Completed [facility] DTaP, Unspecified Formulation 1997-06-29 00:00:00 Completed [facility] Hib-HbOC 1997-06-29 00:00:00 Completed [facility] DTaP, Unspecified Formulation 1997-06-29 00:00:00 Completed [facility] Hib-HbOC 1997-06-29 00:00:00 Completed [facility] DTaP, Unspecified Formulation 1997-06-29 00:00:00 Completed [facility] Hib-HbOC 1997-06-29 00:00:00 Completed [facility] DTaP, Unspecified Formulation 1997-06-29 00:00:00 Completed [facility] Hib-HbOC 1997-06-29 00:00:00 Completed [facility] DTaP, Unspecified Formulation 1997-06-29 00:00:00 Completed [facility] Hib-HbOC 1997-06-29 00:00:00 Completed [facility] DTaP, Unspecified Formulation 1997-06-29 00:00:00 Completed [facility] Hib-HbOC 1997-06-29 00:00:00 Completed [facility] DTaP, Unspecified Formulation 1997-06-29 00:00:00 Completed [facility] Hib-HbOC 1997-06-29 00:00:00 Completed [facility] Hib-HbOC 1997-04-19 00:00:00 Completed [facility] IPV 1997-04-19 00:00:00 Completed [facility] DTaP, Unspecified Formulation 1997-04-19 00:00:00 Completed [facility] Hib-HbOC 1997-04-19 00:00:00 Completed [facility] IPV 1997-04-19 00:00:00 Completed [facility] DTaP, Unspecified Formulation 1997-04-19 00:00:00 Completed [facility] Hib-HbOC 1997-04-19 00:00:00 Completed [facility] IPV 1997-04-19 00:00:00 Completed [facility] DTaP, Unspecified Formulation 1997-04-19 00:00:00 Completed [facility] Hib-HbOC 1997-04-19 00:00:00 Completed [facility] IPV 1997-04-19 00:00:00 Completed [facility] DTaP, Unspecified Formulation 1997-04-19 00:00:00 Completed [facility] Hib-HbOC 1997-04-19 00:00:00 Completed [facility] IPV 1997-04-19 00:00:00 Completed [facility] DTaP, Unspecified Formulation 1997-04-19 00:00:00 Completed [facility] Hib-HbOC 1997-04-19 00:00:00 Completed [facility] IPV 1997-04-19 00:00:00 Completed [facility] DTaP, Unspecified Formulation 1997-04-19 00:00:00 Completed [facility] Hib-HbOC 1997-04-19 00:00:00 Completed [facility] IPV 1997-04-19 00:00:00 Completed [facility] DTaP, Unspecified Formulation 1997-04-19 00:00:00 Completed [facility] Hib-HbOC 1997-04-19 00:00:00 Completed [facility] IPV 1997-04-19 00:00:00 Completed [facility] DTaP, Unspecified Formulation 1997-04-19 00:00:00 Completed [facility] Hib-HbOC 1997-04-19 00:00:00 Completed [facility] IPV 1997-04-19 00:00:00 Completed [facility] DTaP, Unspecified Formulation 1997-04-19 00:00:00 Completed [facility] Hib-HbOC 1997-04-19 00:00:00 Completed [facility] IPV 1997-04-19 00:00:00 Completed [facility] DTaP, Unspecified Formulation 1997-04-19 00:00:00 Completed [facility] Hib-HbOC 1997-04-19 00:00:00 Completed [facility] IPV 1997-04-19 00:00:00 Completed [facility] DTaP, Unspecified Formulation 1997-04-19 00:00:00 Completed [facility] Hib-HbOC 1997-04-19 00:00:00 Completed [facility] IPV 1997-04-19 00:00:00 Completed [facility] DTaP, Unspecified Formulation 1997-04-19 00:00:00 Completed [facility] Hib-HbOC 1997-04-19 00:00:00 Completed [facility] IPV 1997-04-19 00:00:00 Completed [facility] DTaP, Unspecified Formulation 1997-04-19 00:00:00 Completed [facility] Hib-HbOC 1997-04-19 00:00:00 Completed [facility] IPV 1997-04-19 00:00:00 Completed [facility] DTaP, Unspecified Formulation 1997-04-19 00:00:00 Completed [facility] Hib-HbOC 1997-04-19 00:00:00 Completed [facility] IPV 1997-04-19 00:00:00 Completed [facility] DTaP, Unspecified Formulation 1997-04-19 00:00:00 Completed [facility] Hib-HbOC 1997-04-19 00:00:00 Completed [facility] IPV 1997-04-19 00:00:00 Completed [facility] DTaP, Unspecified Formulation 1997-04-19 00:00:00 Completed [facility] Hib-HbOC 1997-04-19 00:00:00 Completed [facility] IPV 1997-04-19 00:00:00 Completed [facility] DTaP, Unspecified Formulation 1997-04-19 00:00:00 Completed [facility] Hib-HbOC 1997-04-19 00:00:00 Completed [facility] IPV 1997-04-19 00:00:00 Completed [facility] DTaP, Unspecified Formulation 1997-04-19 00:00:00 Completed [facility] Hib-HbOC 1997-04-19 00:00:00 Completed [facility] IPV 1997-04-19 00:00:00 Completed [facility] DTaP, Unspecified Formulation 1997-04-19 00:00:00 Completed [facility] Hib-HbOC 1997-04-19 00:00:00 Completed [facility] IPV 1997-04-19 00:00:00 Completed [facility] DTaP, Unspecified Formulation 1997-04-19 00:00:00 Completed [facility] Hib-HbOC 1997-04-19 00:00:00 Completed [facility] IPV 1997-04-19 00:00:00 Completed [facility] DTaP, Unspecified Formulation 1997-04-19 00:00:00 Completed [facility] Hib-HbOC 1997-04-19 00:00:00 Completed [facility] IPV 1997-04-19 00:00:00 Completed [facility] DTaP, Unspecified Formulation 1997-04-19 00:00:00 Completed [facility] Hib-HbOC 1997-02-10 00:00:00 Completed [facility] IPV 1997-02-10 00:00:00 Completed [facility] DTaP, Unspecified Formulation 1997-02-10 00:00:00 Completed [facility] Hib-HbOC 1997-02-10 00:00:00 Completed [facility] IPV 1997-02-10 00:00:00 Completed [facility] DTaP, Unspecified Formulation 1997-02-10 00:00:00 Completed [facility] Hib-HbOC 1997-02-10 00:00:00 Completed [facility] IPV 1997-02-10 00:00:00 Completed [facility] DTaP, Unspecified Formulation 1997-02-10 00:00:00 Completed [facility] Hib-HbOC 1997-02-10 00:00:00 Completed [facility] IPV 1997-02-10 00:00:00 Completed [facility] DTaP, Unspecified Formulation 1997-02-10 00:00:00 Completed [facility] Hib-HbOC 1997-02-10 00:00:00 Completed [facility] IPV 1997-02-10 00:00:00 Completed [facility] DTaP, Unspecified Formulation 1997-02-10 00:00:00 Completed [facility] Hib-HbOC 1997-02-10 00:00:00 Completed [facility] IPV 1997-02-10 00:00:00 Completed [facility] DTaP, Unspecified Formulation 1997-02-10 00:00:00 Completed [facility] Hib-HbOC 1997-02-10 00:00:00 Completed [facility] IPV 1997-02-10 00:00:00 Completed [facility] DTaP, Unspecified Formulation 1997-02-10 00:00:00 Completed [facility] Hib-HbOC 1997-02-10 00:00:00 Completed [facility] IPV 1997-02-10 00:00:00 Completed [facility] DTaP, Unspecified Formulation 1997-02-10 00:00:00 Completed [facility] Hib-HbOC 1997-02-10 00:00:00 Completed [facility] IPV 1997-02-10 00:00:00 Completed [facility] DTaP, Unspecified Formulation 1997-02-10 00:00:00 Completed [facility] Hib-HbOC 1997-02-10 00:00:00 Completed [facility] IPV 1997-02-10 00:00:00 Completed [facility] DTaP, Unspecified Formulation 1997-02-10 00:00:00 Completed [facility] Hib-HbOC 1997-02-10 00:00:00 Completed [facility] IPV 1997-02-10 00:00:00 Completed [facility] DTaP, Unspecified Formulation 1997-02-10 00:00:00 Completed [facility] Hib-HbOC 1997-02-10 00:00:00 Completed [facility] IPV 1997-02-10 00:00:00 Completed [facility] DTaP, Unspecified Formulation 1997-02-10 00:00:00 Completed [facility] Hib-HbOC 1997-02-10 00:00:00 Completed [facility] IPV 1997-02-10 00:00:00 Completed [facility] DTaP, Unspecified Formulation 1997-02-10 00:00:00 Completed [facility] Hib-HbOC 1997-02-10 00:00:00 Completed [facility] IPV 1997-02-10 00:00:00 Completed [facility] DTaP, Unspecified Formulation 1997-02-10 00:00:00 Completed [facility] Hib-HbOC 1997-02-10 00:00:00 Completed [facility] IPV 1997-02-10 00:00:00 Completed [facility] DTaP, Unspecified Formulation 1997-02-10 00:00:00 Completed [facility] Hib-HbOC 1997-02-10 00:00:00 Completed [facility] IPV 1997-02-10 00:00:00 Completed [facility] DTaP, Unspecified Formulation 1997-02-10 00:00:00 Completed [facility] Hib-HbOC 1997-02-10 00:00:00 Completed [facility] IPV 1997-02-10 00:00:00 Completed [facility] DTaP, Unspecified Formulation 1997-02-10 00:00:00 Completed [facility] Hib-HbOC 1997-02-10 00:00:00 Completed [facility] IPV 1997-02-10 00:00:00 Completed [facility] DTaP, Unspecified Formulation 1997-02-10 00:00:00 Completed [facility] Hib-HbOC 1997-02-10 00:00:00 Completed [facility] IPV 1997-02-10 00:00:00 Completed [facility] DTaP, Unspecified Formulation 1997-02-10 00:00:00 Completed [facility] Hib-HbOC 1997-02-10 00:00:00 Completed [facility] IPV 1997-02-10 00:00:00 Completed [facility] DTaP, Unspecified Formulation 1997-02-10 00:00:00 Completed [facility] Hib-HbOC 1997-02-10 00:00:00 Completed [facility] IPV 1997-02-10 00:00:00 Completed [facility] DTaP, Unspecified Formulation 1997-02-10 00:00:00 Completed [facility] Hib-HbOC 1997-02-10 00:00:00 Completed [facility] IPV 1997-02-10 00:00:00 Completed [facility] DTaP, Unspecified Formulation 1997-02-10 00:00:00 Completed [facility] Hep B, Adol or Pedi Dosage 1997-01-19 00:00:00 Completed [facility] Hep B, Adol or Pedi Dosage 1997-01-19 00:00:00 Completed [facility] Hep B, Adol or Pedi Dosage 1997-01-19 00:00:00 Completed [facility] Hep B, Adol or Pedi Dosage 1997-01-19 00:00:00 Completed [facility] Hep B, Adol or Pedi Dosage 1997-01-19 00:00:00 Completed [facility] Hep B, Adol or Pedi Dosage 1997-01-19 00:00:00 Completed [facility] Hep B, Adol or Pedi Dosage 1997-01-19 00:00:00 Completed [facility] Hep B, Adol or Pedi Dosage 1997-01-19 00:00:00 Completed [facility] Hep B, Adol or Pedi Dosage 1997-01-19 00:00:00 Completed [facility] Hep B, Adol or Pedi Dosage 1997-01-19 00:00:00 Completed [facility] Hep B, Adol or Pedi Dosage 1997-01-19 00:00:00 Completed [facility] Hep B, Adol or Pedi Dosage 1997-01-19 00:00:00 Completed [facility] Hep B, Adol or Pedi Dosage 1997-01-19 00:00:00 Completed [facility] Hep B, Adol or Pedi Dosage 1997-01-19 00:00:00 Completed [facility] Hep B, Adol or Pedi Dosage 1997-01-19 00:00:00 Completed [facility] Hep B, Adol or Pedi Dosage 1997-01-19 00:00:00 Completed [facility] Hep B, Adol or Pedi Dosage 1997-01-19 00:00:00 Completed [facility] Hep B, Adol or Pedi Dosage 1997-01-19 00:00:00 Completed [facility] Hep B, Adol or Pedi Dosage 1997-01-19 00:00:00 Completed [facility] Hep B, Adol or Pedi Dosage 1997-01-19 00:00:00 Completed [facility] Hep B, Adol or Pedi Dosage 1997-01-19 00:00:00 Completed [facility] Hep B, Adol or Pedi Dosage 1997-01-19 00:00:00 Completed [facility] Hep B, Adol or Pedi Dosage 1996 00:00:00 Completed [facility] Hep B, Adol or Pedi Dosage 1996 00:00:00 Completed [facility] Hep B, Adol or Pedi Dosage 1996 00:00:00 Completed [facility] Hep B, Adol or Pedi Dosage 1996 00:00:00 Completed [facility] Hep B, Adol or Pedi Dosage 1996 00:00:00 Completed [facility] Hep B, Adol or Pedi Dosage 1996 00:00:00 Completed [facility] Hep B, Adol or Pedi Dosage 1996 00:00:00 Completed [facility] Hep B, Adol or Pedi Dosage 1996 00:00:00 Completed [facility] Hep B, Adol or Pedi Dosage 1996 00:00:00 Completed [facility] Hep B, Adol or Pedi Dosage 1996 00:00:00 Completed [facility] Hep B, Adol or Pedi Dosage 1996 00:00:00 Completed [facility] Hep B, Adol or Pedi Dosage 1996 00:00:00 Completed [facility] Hep B, Adol or Pedi Dosage 1996 00:00:00 Completed [facility] Hep B, Adol or Pedi Dosage 1996 00:00:00 Completed [facility] Hep B, Adol or Pedi Dosage 1996 00:00:00 Completed [facility] Hep B, Adol or Pedi Dosage 1996 00:00:00 Completed [facility] Hep B, Adol or Pedi Dosage 1996 00:00:00 Completed [facility] Hep B, Adol or Pedi Dosage 1996 00:00:00 Completed [facility] Hep B, Adol or Pedi Dosage 1996 00:00:00 Completed [facility] Hep B, Adol or Pedi Dosage 1996 00:00:00 Completed [facility] Hep B, Adol or Pedi Dosage 1996 00:00:00 Completed [facility] Hep B, Adol or Pedi Dosage 1996 00:00:00 Completed [facility] TDAP Unknown Completed [facility] HPV9 Unknown Completed [facility] Influenza Virus Vaccine Quad .5 mL IM 6+ MO (FLUZONE/FLULAVAL/FL UARIX) Unknown Completed [facility] DTaP, Unspecified Formulation Unknown Completed [facility] DPT/HIB Unknown Completed [facility] Hep B, Adol or Pedi Dosage Unknown Completed [facility] Hib-HbOC Unknown Completed [facility] Meningococcal Polysaccharide (groups A, C, Y and W-135) conjugate vaccine (MCV4P) Unknown Completed [facility] MMR Unknown Completed [facility] IPV Unknown Completed [facility] Poliovirus, Live, Oral, Trivalent Unknown Completed [facility] Varicella (varivax)(chicken pox) Unknown Completed [facility] TDAP Unknown Completed [facility] HPV9 Unknown Completed [facility] Influenza Virus Vaccine Quad .5 mL IM 6+ MO (FLUZONE/FLULAVAL/FL UARIX) Unknown Completed [facility] DTaP, Unspecified Formulation Unknown Completed [facility] DPT/HIB Unknown Completed [facility] Hep B, Adol or Pedi Dosage Unknown Completed [facility] Hib-HbOC Unknown Completed [facility] Meningococcal Polysaccharide (groups A, C, Y and W-135) conjugate vaccine (MCV4P) Unknown Completed [facility] MMR Unknown Completed [facility] IPV Unknown Completed [facility] Poliovirus, Live, Oral, Trivalent Unknown Completed [facility] Varicella (varivax)(chicken pox) Unknown Completed [facility] TDAP Unknown Completed [facility] HPV9 Unknown Completed [facility] Influenza Virus Vaccine Quad .5 mL IM 6+ MO (FLUZONE/FLULAVAL/FL UARIX) Unknown Completed [facility] DTaP, Unspecified Formulation Unknown Completed [facility] DPT/HIB Unknown Completed [facility] Hep B, Adol or Pedi Dosage Unknown Completed [facility] Hib-HbOC Unknown Completed [facility] Meningococcal Polysaccharide (groups A, C, Y and W-135) conjugate vaccine (MCV4P) Unknown Completed [facility] MMR Unknown Completed [facility] IPV Unknown Completed [facility] Poliovirus, Live, Oral, Trivalent Unknown Completed [facility] Varicella (varivax)(chicken pox) Unknown Completed [facility] TDAP Unknown Completed [facility] HPV9 Unknown Completed [facility] Influenza Virus Vaccine Quad .5 mL IM 6+ MO (FLUZONE/FLULAVAL/FL UARIX) Unknown Completed [facility] DTaP, Unspecified Formulation Unknown Completed [facility] DPT/HIB Unknown Completed [facility] Hep B, Adol or Pedi Dosage Unknown Completed [facility] Hib-HbOC Unknown Completed [facility] Meningococcal Polysaccharide (groups A, C, Y and W-135) conjugate vaccine (MCV4P) Unknown Completed [facility] MMR Unknown Completed [facility] IPV Unknown Completed [facility] Poliovirus, Live, Oral, Trivalent Unknown Completed [facility] Varicella (varivax)(chicken pox) Unknown Completed [facility] TDAP Unknown Completed [facility] HPV9 Unknown Completed [facility] Influenza Virus Vaccine Quad .5 mL IM 6+ MO (FLUZONE/FLULAVAL/FL UARIX) Unknown Completed [facility] DTaP, Unspecified Formulation Unknown Completed [facility] DPT/HIB Unknown Completed [facility] Hep B, Adol or Pedi Dosage Unknown Completed [facility] Hib-HbOC Unknown Completed [facility] Meningococcal Polysaccharide (groups A, C, Y and W-135) conjugate vaccine (MCV4P) Unknown Completed [facility] MMR Unknown Completed [facility] IPV Unknown Completed [facility] Poliovirus, Live, Oral, Trivalent Unknown Completed [facility] Varicella (varivax)(chicken pox) Unknown Completed [facility] TDAP Unknown Completed [facility] HPV9 Unknown Completed [facility] Influenza Virus Vaccine Quad .5 mL IM 6+ MO (FLUZONE/FLULAVAL/FL UARIX) Unknown Completed [facility] DTaP, Unspecified Formulation Unknown Completed [facility] DPT/HIB Unknown Completed [facility] Hep B, Adol or Pedi Dosage Unknown Completed [facility] Hib-HbOC Unknown Completed [facility] Meningococcal Polysaccharide (groups A, C, Y and W-135) conjugate vaccine (MCV4P) Unknown Completed [facility] MMR Unknown Completed [facility] IPV Unknown Completed [facility] Poliovirus, Live, Oral, Trivalent Unknown Completed [facility] Varicella (varivax)(chicken pox) Unknown Completed [facility] TDAP Unknown Completed [facility] HPV9 Unknown Completed [facility] Influenza Virus Vaccine Quad .5 mL IM 6+ MO (FLUZONE/FLULAVAL/FL UARIX) Unknown Completed [facility] DTaP, Unspecified Formulation Unknown Completed [facility] DPT/HIB Unknown Completed [facility] Hep B, Adol or Pedi Dosage Unknown Completed [facility] Hib-HbOC Unknown Completed [facility] Meningococcal Polysaccharide (groups A, C, Y and W-135) conjugate vaccine (MCV4P) Unknown Completed [facility] MMR Unknown Completed [facility] IPV Unknown Completed [facility] Poliovirus, Live, Oral, Trivalent Unknown Completed [facility] Varicella (varivax)(chicken pox) Unknown Completed [facility] TDAP Unknown Completed [facility] HPV9 Unknown Completed [facility] Influenza Virus Vaccine Quad .5 mL IM 6+ MO (FLUZONE/FLULAVAL/FL UARIX) Unknown Completed [facility] DTaP, Unspecified Formulation Unknown Completed [facility] DPT/HIB Unknown Completed [facility] Hep B, Adol or Pedi Dosage Unknown Completed [facility] Hib-HbOC Unknown Completed [facility] Meningococcal Polysaccharide (groups A, C, Y and W-135) conjugate vaccine (MCV4P) Unknown Completed [facility] MMR Unknown Completed [facility] IPV Unknown Completed [facility] Poliovirus, Live, Oral, Trivalent Unknown Completed [facility] Varicella (varivax)(chicken pox) Unknown Completed [facility] TDAP Unknown Completed [facility] HPV9 Unknown Completed [facility] Influenza Virus Vaccine Quad .5 mL IM 6+ MO (FLUZONE/FLULAVAL/FL UARIX) Unknown Completed [facility] DTaP, Unspecified Formulation Unknown Completed [facility] DPT/HIB Unknown Completed [facility] Hep B, Adol or Pedi Dosage Unknown Completed [facility] Hib-HbOC Unknown Completed [facility] Meningococcal Polysaccharide (groups A, C, Y and W-135) conjugate vaccine (MCV4P) Unknown Completed [facility] MMR Unknown Completed [facility] IPV Unknown Completed [facility] Poliovirus, Live, Oral, Trivalent Unknown Completed [facility] Varicella (varivax)(chicken pox) Unknown Completed [facility] TDAP Unknown Completed [facility] HPV9 Unknown Completed [facility] Influenza Virus Vaccine Quad .5 mL IM 6+ MO (FLUZONE/FLULAVAL/FL UARIX) Unknown Completed [facility] DTaP, Unspecified Formulation Unknown Completed [facility] DPT/HIB Unknown Completed [facility] Hep B, Adol or Pedi Dosage Unknown Completed [facility] Hib-HbOC Unknown Completed [facility] Meningococcal Polysaccharide (groups A, C, Y and W-135) conjugate vaccine (MCV4P) Unknown Completed [facility] MMR Unknown Completed [facility] IPV Unknown Completed [facility] Poliovirus, Live, Oral, Trivalent Unknown Completed [facility] Varicella (varivax)(chicken pox) Unknown Completed [facility] TDAP Unknown Completed [facility] HPV9 Unknown Completed [facility] Influenza Virus Vaccine Quad .5 mL IM 6+ MO (FLUZONE/FLULAVAL/FL UARIX) Unknown Completed [facility] DTaP, Unspecified Formulation Unknown Completed [facility] DPT/HIB Unknown Completed [facility] Hep B, Adol or Pedi Dosage Unknown Completed [facility] Hib-HbOC Unknown Completed [facility] Meningococcal Polysaccharide (groups A, C, Y and W-135) conjugate vaccine (MCV4P) Unknown Completed [facility] MMR Unknown Completed [facility] IPV Unknown Completed [facility] Poliovirus, Live, Oral, Trivalent Unknown Completed [facility] Varicella (varivax)(chicken pox) Unknown Completed [facility] TDAP Unknown Completed [facility] HPV9 Unknown Completed [facility] Influenza Virus Vaccine Quad .5 mL IM 6+ MO (FLUZONE/FLULAVAL/FL UARIX) Unknown Completed [facility] DTaP, Unspecified Formulation Unknown Completed [facility] DPT/HIB Unknown Completed [facility] Hep B, Adol or Pedi Dosage Unknown Completed [facility] Hib-HbOC Unknown Completed [facility] Meningococcal Polysaccharide (groups A, C, Y and W-135) conjugate vaccine (MCV4P) Unknown Completed [facility] MMR Unknown Completed [facility] IPV Unknown Completed [facility] Poliovirus, Live, Oral, Trivalent Unknown Completed [facility] Varicella (varivax)(chicken pox) Unknown Completed [facility] TDAP Unknown Completed [facility] HPV9 Unknown Completed [facility] Influenza Virus Vaccine Quad .5 mL IM 6+ MO (FLUZONE/FLULAVAL/FL UARIX) Unknown Completed [facility] DTaP, Unspecified Formulation Unknown Completed [facility] DPT/HIB Unknown Completed [facility] Hep B, Adol or Pedi Dosage Unknown Completed [facility] Hib-HbOC Unknown Completed [facility] Meningococcal Polysaccharide (groups A, C, Y and W-135) conjugate vaccine (MCV4P) Unknown Completed [facility] MMR Unknown Completed [facility] IPV Unknown Completed [facility] Poliovirus, Live, Oral, Trivalent Unknown Completed [facility] Varicella (varivax)(chicken pox) Unknown Completed [facility] TDAP Unknown Completed [facility] HPV9 Unknown Completed [facility] Influenza Virus Vaccine Quad .5 mL IM 6+ MO (FLUZONE/FLULAVAL/FL UARIX) Unknown Completed [facility] DTaP, Unspecified Formulation Unknown Completed [facility] DPT/HIB Unknown Completed [facility] Hep B, Adol or Pedi Dosage Unknown Completed [facility] Hib-HbOC Unknown Completed [facility] Meningococcal Polysaccharide (groups A, C, Y and W-135) conjugate vaccine (MCV4P) Unknown Completed [facility] MMR Unknown Completed [facility] IPV Unknown Completed [facility] Poliovirus, Live, Oral, Trivalent Unknown Completed [facility] Varicella (varivax)(chicken pox) Unknown Completed [facility] TDAP Unknown Completed [facility] HPV9 Unknown Completed [facility] Influenza Virus Vaccine Quad .5 mL IM 6+ MO (FLUZONE/FLULAVAL/FL UARIX) Unknown Completed [facility] DTaP, Unspecified Formulation Unknown Completed [facility] DPT/HIB Unknown Completed [facility] Hep B, Adol or Pedi Dosage Unknown Completed [facility] Hib-HbOC Unknown Completed [facility] Meningococcal Polysaccharide (groups A, C, Y and W-135) conjugate vaccine (MCV4P) Unknown Completed [facility] MMR Unknown Completed [facility] IPV Unknown Completed [facility] Poliovirus, Live, Oral, Trivalent Unknown Completed [facility] Varicella (varivax)(chicken pox) Unknown Completed [facility] DPT/HIB Unknown Completed [facility] Meningococcal Polysaccharide (groups A, C, Y and W-135) conjugate vaccine (MCV4P) Unknown Completed [facility] Poliovirus, Live, Oral, Trivalent Unknown Completed [facility] TDAP Unknown Completed [facility] HPV9 Unknown Completed [facility] Influenza Virus Vaccine Quad .5 mL IM 6+ MO (FLUZONE/FLULAVAL/FL UARIX) Unknown Completed [facility] DTaP, Unspecified Formulation Unknown Completed [facility] Hep B, Adol or Pedi Dosage Unknown Completed [facility] Hib-HbOC Unknown Completed [facility] MMR Unknown Completed [facility] IPV Unknown Completed [facility] Varicella (varivax)(chicken pox) Unknown Completed [facility] TDAP Unknown Completed [facility] HPV9 Unknown Completed [facility] Influenza Virus Vaccine Quad .5 mL IM 6+ MO (FLUZONE/FLULAVAL/FL UARIX) Unknown Completed [facility] DTaP, Unspecified Formulation Unknown Completed [facility] DPT/HIB Unknown Completed [facility] Hep B, Adol or Pedi Dosage Unknown Completed [facility] Hib-HbOC Unknown Completed [facility] Meningococcal Polysaccharide (groups A, C, Y and W-135) conjugate vaccine (MCV4P) Unknown Completed [facility] MMR Unknown Completed [facility] IPV Unknown Completed [facility] Poliovirus, Live, Oral, Trivalent Unknown Completed [facility] Varicella (varivax)(chicken pox) Unknown Completed [facility] TDAP Unknown Completed [facility] HPV9 Unknown Completed [facility] Influenza Virus Vaccine Quad .5 mL IM 6+ MO (FLUZONE/FLULAVAL/FL UARIX) Unknown Completed [facility] DTaP, Unspecified Formulation Unknown Completed [facility] DPT/HIB Unknown Completed [facility] Hep B, Adol or Pedi Dosage Unknown Completed [facility] Hib-HbOC Unknown Completed [facility] Meningococcal Polysaccharide (groups A, C, Y and W-135) conjugate vaccine (MCV4P) Unknown Completed [facility] MMR Unknown Completed [facility] IPV Unknown Completed [facility] Poliovirus, Live, Oral, Trivalent Unknown Completed [facility] Varicella (varivax)(chicken pox) Unknown Completed [facility] TDAP Unknown Completed [facility] HPV9 Unknown Completed [facility] Influenza Virus Vaccine Quad .5 mL IM 6+ MO (FLUZONE/FLULAVAL/FL UARIX) Unknown Completed [facility] DTaP, Unspecified Formulation Unknown Completed [facility] DPT/HIB Unknown Completed [facility] Hep B, Adol or Pedi Dosage Unknown Completed [facility] Hib-HbOC Unknown Completed [facility] Meningococcal Polysaccharide (groups A, C, Y and W-135) conjugate vaccine (MCV4P) Unknown Completed [facility] MMR Unknown Completed [facility] IPV Unknown Completed [facility] Poliovirus, Live, Oral, Trivalent Unknown Completed [facility] Varicella (varivax)(chicken pox) Unknown Completed [facility] TDAP Unknown Completed [facility] HPV9 Unknown Completed [facility] Influenza Virus Vaccine Quad .5 mL IM 6+ MO (FLUZONE/FLULAVAL/FL UARIX) Unknown Completed [facility] DTaP, Unspecified Formulation Unknown Completed [facility] DPT/HIB Unknown Completed [facility] Hep B, Adol or Pedi Dosage Unknown Completed [facility] Hib-HbOC Unknown Completed [facility] Meningococcal Polysaccharide (groups A, C, Y and W-135) conjugate vaccine (MCV4P) Unknown Completed [facility] MMR Unknown Completed [facility] IPV Unknown Completed [facility] Poliovirus, Live, Oral, Trivalent Unknown Completed [facility] Varicella (varivax)(chicken pox) Unknown Completed [facility] DPT/HIB Unknown Completed [facility] Meningococcal Polysaccharide (groups A, C, Y and W-135) conjugate vaccine (MCV4P) Unknown Completed [facility] Poliovirus, Live, Oral, Trivalent Unknown Completed [facility] TDAP Unknown Completed [facility] HPV9 Unknown Completed [facility] Influenza Virus Vaccine Quad .5 mL IM 6+ MO (FLUZONE/FLULAVAL/FL UARIX) Unknown Completed [facility] DTaP, Unspecified Formulation Unknown Completed [facility] Hep B, Adol or Pedi Dosage Unknown Completed [facility] Hib-HbOC Unknown Completed [facility] MMR Unknown Completed [facility] IPV Unknown Completed [facility] Varicella (varivax)(chicken pox) Unknown Completed [facility] DTaP, Unspecified Formulation Unknown Completed [facility] DPT/HIB Unknown Completed [facility] Hep B, Adol or Pedi Dosage Unknown Completed [facility] Hib-HbOC Unknown Completed [facility] Meningococcal Polysaccharide (groups A, C, Y and W-135) conjugate vaccine (MCV4P) Unknown Completed [facility] MMR Unknown Completed [facility] IPV Unknown Completed [facility] Poliovirus, Live, Oral, Trivalent Unknown Completed [facility] Varicella (varivax)(chicken pox) Unknown Completed [facility] TDAP Unknown Completed [facility] HPV9 Unknown Completed [facility] Influenza Virus Vaccine Quad .5 mL IM 6+ MO (FLUZONE/FLULAVAL/FL UARIX) Unknown Completed [facility] TDAP Unknown Completed [facility] HPV9 Unknown Completed [facility] Influenza Virus Vaccine Quad .5 mL IM 6+ MO (FLUZONE/FLULAVAL/FL UARIX) Unknown Completed [facility] DTaP, Unspecified Formulation Unknown Completed [facility] DPT/HIB Unknown Completed [facility] Hep B, Adol or Pedi Dosage Unknown Completed [facility] Hib-HbOC Unknown Completed [facility] Meningococcal Polysaccharide (groups A, C, Y and W-135) conjugate vaccine (MCV4P) Unknown Completed [facility] MMR Unknown Completed [facility] IPV Unknown Completed [facility] Poliovirus, Live, Oral, Trivalent Unknown Completed [facility] Varicella (varivax)(chicken pox) Unknown Completed [facility] TDAP Unknown Completed [facility] HPV9 Unknown Completed [facility] Influenza Virus Vaccine Quad .5 mL IM 6+ MO (FLUZONE/FLULAVAL/FL UARIX) Unknown Completed [facility] DTaP, Unspecified Formulation Unknown Completed [facility] DPT/HIB Unknown Completed [facility] Hep B, Adol or Pedi Dosage Unknown Completed [facility] Hib-HbOC Unknown Completed [facility] Meningococcal Polysaccharide (groups A, C, Y and W-135) conjugate vaccine (MCV4P) Unknown Completed [facility] MMR Unknown Completed [facility] IPV Unknown Completed [facility] Poliovirus, Live, Oral, Trivalent Unknown Completed [facility] Varicella (varivax)(chicken pox) Unknown Completed [facility] TDAP Unknown Completed [facility] HPV9 Unknown Completed [facility] Influenza Virus Vaccine Quad .5 mL IM 6+ MO (FLUZONE/FLULAVAL/FL UARIX) Unknown Completed [facility] DTaP, Unspecified Formulation Unknown Completed [facility] DPT/HIB Unknown Completed [facility] Hep B, Adol or Pedi Dosage Unknown Completed [facility] Hib-HbOC Unknown Completed [facility] Meningococcal Polysaccharide (groups A, C, Y and W-135) conjugate vaccine (MCV4P) Unknown Completed [facility] MMR Unknown Completed [facility] IPV Unknown Completed [facility] Poliovirus, Live, Oral, Trivalent Unknown Completed [facility] Varicella (varivax)(chicken pox) Unknown Completed [facility] DPT/HIB Unknown Completed [facility] Meningococcal Polysaccharide (groups A, C, Y and W-135) conjugate vaccine (MCV4P) Unknown Completed [facility] Poliovirus, Live, Oral, Trivalent Unknown Completed [facility] TDAP Unknown Completed [facility] HPV9 Unknown Completed [facility] Influenza Virus Vaccine Quad .5 mL IM 6+ MO (FLUZONE/FLULAVAL/FL UARIX) Unknown Completed [facility] DTaP, Unspecified Formulation Unknown Completed [facility] Hep B, Adol or Pedi Dosage Unknown Completed [facility] Hib-HbOC Unknown Completed [facility] MMR Unknown Completed [facility] IPV Unknown Completed [facility] Varicella (varivax)(chicken pox) Unknown Completed [facility] Vital Signs Vital Name Observation Time Observation Value Comments S ource Systolic blood pressure 2023-12-04 19:21:00 108 mm[Hg] [facility] Diastolic blood pressure 2023-12-04 19:21:00 69 mm[Hg] [facility] Heart rate 2023-12-04 19:21:00 75 /min [facility] Body temperature 2023-12-04 19:21:00 36.78 Mariella [facility] Respiratory rate 2023-12-04 19:21:00 18 /min [facility] Body height 2023-12-04 19:21:00 167.6 cm [facility] Body weight 2023-12-04 19:21:00 73.483 kg [facility] BMI 2023-12-04 19:21:00 26.15 kg/m2 [facility] Systolic blood pressure 2023-11-13 22:30:00 130 mm[Hg] [facility] Diastolic blood pressure 2023-11-13 22:30:00 80 mm[Hg] [facility] Heart rate 2023-11-13 22:30:00 93 /min [facility] Body temperature 2023-11-13 22:30:00 36.11 Mariella [facility] Body height 2023-11-13 22:30:00 170.2 cm [facility] Body weight 2023-11-13 22:30:00 72.303 kg [facility] BMI 2023-11-13 22:30:00 24.97 kg/m2 [facility] Systolic blood pressure 2023-11-06 21:08:00 110 mm[Hg] [facility] Diastolic blood pressure 2023-11-06 21:08:00 68 mm[Hg] [facility] Heart rate 2023-11-06 21:08:00 75 /min [facility] Body temperature 2023-11-06 21:08:00 36.61 Mariella [facility] Respiratory rate 2023-11-06 21:08:00 17 /min [facility] Body height 2023-11-06 21:08:00 170.2 cm [facility] Body weight 2023-11-06 21:08:00 75.116 kg [facility] BMI 2023-11-06 21:08:00 25.94 kg/m2 [facility] Systolic blood pressure 2023-10-25 19:24:00 106 mm[Hg] [facility] Diastolic blood pressure 2023-10-25 19:24:00 71 mm[Hg] [facility] Heart rate 2023-10-25 19:24:00 87 /min [facility]ive [facility] Body temperature 2023-10-25 19:24:00 36.72 Mariella [facility] Respiratory rate 2023-10-25 19:24:00 16 /min [facility] Body height 2023-10-25 19:24:00 170.2 cm [facility] Body weight 2023-10-25 19:24:00 75.297 kg [facility] BMI 2023-10-25 19:24:00 26.00 kg/m2 [facility] Systolic blood pressure 2023-09-27 15:00:00 106 mm[Hg] [facility] Diastolic blood pressure 2023-09-27 15:00:00 64 mm[Hg] [facility] Heart rate 2023-09-27 15:00:00 61 /min Unive [facility] Body temperature 2023-09-27 15:00:00 36.33 Mariella [facility] Respiratory rate 2023-09-27 15:00:00 18 /min [facility] Oxygen saturation in Arterial blood by Pulse oximetry 2023-09-27 15:00:00 98 /min [facility] Body height 2023-09-25 14:00:00 170.2 cm [facility] Body weight 2023-09-25 14:00:00 80.74 kg [facility] BMI 2023-09-25 14:00:00 27.88 kg/m2 [facility] Systolic blood pressure 2023-09-20 20:39:00 104 mm[Hg] [facility] Diastolic blood pressure 2023-09-20 20:39:00 66 mm[Hg] [facility] Heart rate 2023-09-20 20:39:00 89 /min Un[facility] Respiratory rate 2023-09-20 20:39:00 18 /min [facility] Body height 2023-09-20 20:39:00 170.2 cm [facility] Body weight 2023-09-20 20:39:00 80.287 kg [facility] BMI 2023-09-20 20:39:00 27.72 kg/m2 [facility] Systolic blood pressure 2023-09-13 16:29:00 107 mm[Hg] [facility] Diastolic blood pressure 2023-09-13 16:29:00 72 mm[Hg] [facility] Heart rate 2023-09-13 16:29:00 98 /min [facility] Respiratory rate 2023-09-13 16:29:00 18 /min [facility] Body height 2023-09-13 16:29:00 170.2 cm [facility] Body weight 2023-09-13 16:29:00 77.565 kg [facility] BMI 2023-09-13 16:29:00 26.78 kg/m2 [facility] Systolic blood pressure 2023-08-23 19:08:00 126 mm[Hg] [facility] Diastolic blood pressure 2023-08-23 19:08:00 84 mm[Hg] [facility] Heart rate 2023-08-23 19:08:00 99 /min [facility] 2023-08-23 19:08:00 18 /min [facility] Body height 2023-08-23 19:08:00 170.2 cm [facility] 2023-08-23 19:08:00 78.019 [facility] BMI 2023-08-23 19:08:00 26.94 kg/m2 [facility] Systolic blood pressure 2023-08-09 18:33:00 120 mm[Hg] Douglas o [facility] Diastolic blood pressure 2023-08-09 18:33:00 70 mm[Hg] [facility] Heart rate 2023-08-09 18:33:00 71 /min [facility] Res[facility] 2023-08-09 18:33:00 18 /min [facility] Body height 2023-08-09 18:33:00 170.2 cm [facility] Body weight 2023-08-09 18:33:00 78.926 kg [facility] BMI 2023-08-09 18:33:00 27.25 kg/m2 [facility] Systolic blood pressure 2023-07-19 17:08:00 126 mm[Hg] [facility] Diastolic blood pressure 2023-07-19 17:08:00 82 mm[Hg] [facility] Heart rate 2023-07-19 17:08:00 94 /min [facility] 2023-07-19 17:08:00 18 /min [facility] Body height 2023-07-19 17:08:00 170.2 cm [facility] Body weight 2023-07-19 17:08:00 79.379 kg [facility] BMI 2023-07-19 17:08:00 27.41 kg/m2 [facility] Systolic blood pressure 2023-06-14 16:26:00 114 mm[Hg] Douglas o [facility] Diastolic blood pressure 2023-06-14 16:26:00 75 mm[Hg] [facility] Heart rate 2023-06-14 16:26:00 75 /min [facility] Respiratory rate 2023-06-14 16:26:00 18 /min [facility] Body height 2023-06-14 16:26:00 170.2 cm [facility] Body weight 2023-06-14 16:26:00 75.297 kg [facility] BMI 2023-06-14 16:26:00 26.00 kg/m2 [facility] Systolic blood pressure 2023-05-17 16:06:00 119 mm[Hg] [facility] Diastolic blood pressure 2023-05-17 16:06:00 73 mm[Hg] [facility] Heart rate 2023-05-17 16:06:00 116 /min [facility] Respiratory rate 2023-05-17 16:06:00 18 /min [facility] Body height 2023-05-17 16:06:00 170.2 cm [facility] Body weight 2023-05-17 16:06:00 73.029 kg [facility] BMI 2023-05-17 16:06:00 25.22 kg/m2 [facility] Systolic blood pressure 2023-05-07 01:50:00 115 mm[Hg] [facility] Diastolic blood pressure 2023-05-07 01:50:00 70 mm[Hg] [facility] Heart rate 2023-05-07 01:50:00 93 /min [facility] Body temperature 2023-05-07 01:50:00 37.28 Mariella [facility] Respiratory rate 2023-05-07 01:50:00 16 /min [facility] Body height 2023-05-07 01:50:00 170.2 cm [facility] Body weight 2023-05-07 01:50:00 68.947 kg [facility] BMI 2023-05-07 01:50:00 23.81 kg/m2 [facility] Oxygen saturation in Arterial blood by Pulse oximetry 2023-05-07 01:50:00 96 /min [facility] Systolic blood pressure 2023-04-19 15:37:00 125 mm[Hg] [facility] Diastolic blood pressure 2023-04-19 15:37:00 81 mm[Hg] [facility] Heart rate 2023-04-19 15:37:00 97 /min [facility] Body height 2023-04-19 15:37:00 170.2 cm [facility] Body weight 2023-04-19 15:37:00 71.487 kg [facility] BMI 2023-04-19 15:37:00 24.68 kg/m2 [facility] Systolic blood pressure 2023-03-29 19:30:00 113 mm[Hg] [facility] Diastolic blood pressure 2023-03-29 19:30:00 69 mm[Hg] [facility] Heart rate 2023-03-29 19:30:00 88 /min [facility] Respiratory rate 2023-03-29 19:30:00 18 /min [facility] Body weight 2023-03-29 19:30:00 69.4 kg [facility] BMI 2023-03-29 19:30:00 23.96 kg/m2 [facility] Systolic blood pressure 2023-03-22 13:59:00 111 mm[Hg] [facility] Diastolic blood pressure 2023-03-22 13:59:00 73 mm[Hg] [facility] Heart rate 2023-03-22 13:59:00 73 /min [facility] Body temperature 2023-03-22 13:59:00 36.56 Mariella [facility] Body height 2023-03-22 13:59:00 170.2 cm [facility] Body weight 2023-03-22 13:59:00 70.897 kg [facility] BMI 2023-03-22 13:59:00 24.48 kg/m2 [facility] Systolic blood pressure 2023-03-07 02:54:00 125 mm[Hg] [facility] Diastolic blood pressure 2023-03-07 02:54:00 84 mm[Hg] [facility] Heart rate 2023-03-07 02:54:00 107 /min [facility] Body temperature 2023-03-07 02:54:00 37 Mariella [facility] Respiratory rate 2023-03-07 02:54:00 18 /min [facility] Body height 2023-03-07 02:54:00 170.2 cm [facility] Body weight 2023-03-07 02:54:00 74.844 kg [facility] BMI 2023-03-07 02:54:00 25.84 kg/m2 [facility] Oxygen saturation in Arterial blood by Pulse oximetry 2023-03-07 02:54:00 97 /min [facility] Systolic blood pressure 2022-12-20 19:25:00 121 mm[Hg] [facility] Diastolic blood pressure 2022-12-20 19:25:00 73 mm[Hg] [facility] Heart rate 2022-12-20 19:25:00 91 /min [facility] Body temperature 2022-12-20 19:25:00 37 Mariella [facility] Respiratory rate 2022-12-20 19:25:00 18 /min [facility] Body height 2022-12-20 19:25:00 170.2 cm [facility] Body weight 2022-12-20 19:25:00 72.15 kg [facility] BMI 2022-12-20 19:25:00 24.91 kg/m2 [facility] Systolic blood pressure 2022-07-18 19:19:00 129 mm[Hg] [facility] Diastolic blood pressure 2022-07-18 19:19:00 87 mm[Hg] [facility] Heart rate 2022-07-18 19:19:00 101 /min [facility] Body temperature 2022-07-18 19:19:00 36.67 Mariella [facility] Respiratory rate 2022-07-18 19:19:00 18 /min [facility] Body height 2022-07-18 19:19:00 170.2 cm [facility] Body weight 2022-07-18 19:19:00 73.71 kg [facility] BMI 2022-07-18 19:19:00 25.45 kg/m2 [facility] Systolic blood pressure 2021-12-14 13:58:00 115 mm[Hg] [facility] Diastolic blood pressure 2021-12-14 13:58:00 65 mm[Hg] Douglas o [facility] Heart rate 2021-12-14 13:58:00 82 /min [facility] Body temperature 2021-12-14 13:58:00 36.5 Mariella [facility] Respiratory rate 2021-12-14 13:58:00 16 /min [facility] Body height 2021-12-14 13:58:00 170.2 cm [facility] Body weight 2021-12-14 13:58:00 74.39 kg [facility] BMI 2021-12-14 13:58:00 25.69 kg/m2 [facility] Procedures Procedure Date / Time Performed Performing Clinician Source CONSENT FOR CONTRACEPTION 2023-11-06 06:01:00 Doctor Unassigned, [place] [facility] POCT TEST 2023-11-06 00:00:00 Marcia Ocampo [facility] CBC WITH DIFF 2023-09-26 10:41:00 Marcia Ocampo [facility] POCT GLUCOSE (AUTOMATED) 2023-09-26 03:25:00 Marcia Ocampo [facility] POCT GLUCOSE (AUTOMATED) 2023-09-26 00:48:00 Marcia Ocampo [facility] POCT GLUCOSE (AUTOMATED) 2023-09-25 19:41:00 Marcia Ocampo [facility] CENTRAL NEURAXIAL BLOCK 2023-09-25 16:25:00 Sachin Garza [facility] POCT GLUCOSE (AUTOMATED) 2023-09-25 15:03[facility]00 [facility] 2023-09-25 14:08[facility] IMMUNE GLOBULIN 2023-09-25 14:08:00 DamarisMarcia [facility] CBC WITH DIFF 2023-09-24 18:37:[address] [facility] ASSIGNMENT OF BENEFITS 2023-09-24 18:12:12 Docto r Unassigned, [place] [facility] CONSENT/REFUSAL FOR DIAGNOSIS AND TREATMENT 2023-09-24 18:11:48 Doctor Unassigned, [place] [facility] PHYSICIAN ORDERS 2023-09-20 06:01:00 Doctor Unas signed, [place] [facility] CBC WITH DIFF 2023-09-13 17:53:00 DamarisMarcia Bryce [facility] DSU PRE-OP 2023-09-13 06:01:00 Doctor Unass igned, [place] [facility] POCT URINALYSIS W/O SPECIFIC GRAVITY 2023-09-13 00:00:00 [facility]IMESTER ULTRASOUND 2023-09-12 20:34:[address] [facility] POCT URINALYSIS W/O SPECIFIC GRAVITY 2023-08-23 00:00:[address] [facility] TDAP VACCINE, >11 YRS, IM 2023-08-09 18:28:[address] [facility] SECOND AND THIRD TRIMESTER ULTRASOUND 2023-08-09 15:44:[address] [facility] POCT URINALYSIS W/O SPECIFIC GRAVITY 2023-08-09 00:00:00 [facility]IN[facility]YSIS W/O SPECIFIC GRAVITY 2023-07-19 00:00:[address] [facility] POCT URINALYSIS W/O SPECIFIC GRAVITY 2023-06-14 00:00:[address] [facility] SECOND AND THIRD TRIMESTER ULTRASOUND 2023-05-29 17:25:[address] [facility] SECOND AND THIRD TRIMESTER ULTRASOUND 2023-05-29 17:10:00 Marcia Ocampo [facility] POCT URINALYSIS W/O SPECIFIC GRAVITY 2023-05-17 00:00:00 Damaris Marciacarmen Wu [facility] ASSIGNMENT OF BENEFITS 2023-05-07 03:00:45 Docto r Unassigned, [place] [facility] ID INCISION & DRAINAGE ABSCESS COMPLICATED/MULTIPLE 2023-05-07 02:54:06 Atul Leal [facility] CONSENT/REFUSAL FOR DIAGNOSIS AND TREATMENT 2023-05-07 01:48:05 Doctor Unassigned, [place] [facility] POCT URINALYSIS W/O SPECIFIC GRAVITY 2023-04-19 00:00:00 Marcia Ocampo [facility] GLYCOSYLATED HEMOGLOBIN (A1C) 2023-03-27 16:12:00 Marcia Ocampo [facility] <14 WEEKS US LIMITED 2023-03-22 15:38:34 Damaris Marcia [facility] SCANNED LAB RESULTS 2023-03-22 05:01:00 Doctor Leisa pierce, [place] [facility] POCT URINALYSIS W/O SPECIFIC GRAVITY 2023-03-22 00:00:00 Damaris Marcia [facility] URINALYSIS 2023-03-07 03:08:00 Ramirez Sanchez [facility] POCT TEST 2023-03-07 03:07:00 Ramirez Sanchez [facility] NOTICE OF PRIVACY PRACTICES 2023-03-07 02:49:46 Doctor Unassigned, [place] [facility] CONSENT/REFUSAL FOR DIAGNOSIS AND TREATMENT 2023-03-07 02:47:26 Doctor Unassigned, [place] [facility] ASSIGNMENT OF BENEFITS 2022-12-20 19:06:39 Docto r Unassigned, [place] [facility] FLU VACC ([id number]), 6+ MONTHS, IM, QUAD 2021-12-14 14:41:01 German Back [facility] Encounters Start Date/Time End Date/Time Encounter Type Admission Type Attending Clinicians Care Facility Care Department Encounter ID Source 2021-07-06 18:46:07 Emergency [facility] [id number] [facility] 2024-11-03 09:36:03 2024-11-03 09:36:03 Outpatient [facility] [id number] John Beckman 2024-01-31 08:00:00 2024-01-31 08:00:00 Outpatient MARCIA STEWART [facility] [id number] [facility] 2023-12-20 11:30:00 2023-12-20 11:30:00 Outpatient R CARITO PICHARDO [facility] [id number] [facility] 2023-12-18 13:30:00 2023-12-18 13:30:00 Outpatient R CARITO PICHARDO [facility] [id number] [facility] 2023-12-04 14:00:00 2023-12-04 14:37:15 Outpatient R CARITO PICHARDO [facility] [id number] [facility] 2023-12-04 14:00:00 2023-12-04 14:37:15 Office Visit Carito Pichardo [facility] [id number] 350.1.13.10 [id number] [id number] 134 [id number] [facility] 2023-12-03 14:00:00 2023-12-03 14:00:00 Outpatient CARITO BAGLEY [facility] [id number] [facility] 2023-11-29 13:45:00 2023-11-29 13:45:00 Outpatient MARCIA STEWART [facility] [id number] [facility] 2023-11-19 00:00:00 2023-11-19 00:00:00 Refill [facility] [id number] 350.1.13.10 [id number] [id number] [facility] 2023-11-13 16:00:00 2023-11-13 16:44:43 Outpatient MARCIA STEWART [facility] [id number] [facility] 2023-11-13 16:00:00 2023-11-13 16:44:43 Office Visit Marcia Ocampo [facility] [id number] 350.1.13.10 4.2.7.2.686 [id number] [facility] 2023-11-13 00:00:00 2023-11-13 00:00:00 Telephone Marcia Ocampo [facility] [id number] 350.1.13.10 4.2.7.2.686 [id number] [facility] 2023-11-06 15:15:00 2023-11-06 15:36:47 Outpatient R OCAMPO MARCIA [facility] [id number] [facility] 2023-11-06 15:15:00 2023-11-06 15:36:47 Office Visit Marcia Ocampo [facility] [id number] 350.1.13.10 4.2.7.2.686 [id number] [facility] 2023-11-06 00:00:00 2023-11-06 00:00:00 Orders Only Doctor Unassigned, [place] [facility] [id number] 350.1.13.10 4.2.7.2.686 [id number] [facility] 2023-11-01 00:00:00 2023-11-01 00:00:[address] [facility] [id number] 350.1.13.10 4.2.7.2.686 [id number] [facility] 2023-10-25 13:15:00 2023-10-25 13:41:03 Outpatient R MARCIA OCAMPO [facility] [id number] [facility] 2023-10-25 13:15:00 2023-10-25 13:41:03 Routine Visit Marcia Ocampo [facility] [id number] 350.1.13.10 4.2.7.2.686 [id number] [facility] 2023-10-11 15:15:00 2023-10-11 15:15:00 Outpatient R MARCIA OCAMPO [facility] [id number] [facility] 2023-09-25 06:27:00 2023-09-27 10:00:00 Inpatient P MARCIA OCAMPO [facility] [id number] [facility] 2023-09-25 06:27:00 2023-09-27 10:00:00 Hospital Encounter Marcia Ocampo [facility] [id number] 350.1.13.10 4.2.7.2.686 [id number] [facility] 2023-09-25 10:31:00 2023-09-26 02:10:00 Anesthesia Event Sachin Garcia, [facility] [id number] 350.1.13.10 4.2.7.2.686 [id number] [place] [facility] 12:15:00 2023-09-24 12:30:00 Home Sales Service Professional Visit Pob, Adc Lab Main Marcia Ocampo [facility] 1.2.840.114 350.1.13.10 4.2.7.2.686 [id number] [facility] 2023-09-24 12:15:00 2023-09-24 12:15:00 Outpatient R DAMARIS MARCIA [facility] [id number] [facility] 2023-09-20 14:45:00 2023-09-20 15:06:34 Outpatient R DAMARIS [facility] [id number] [facility] 2023-09-20 14:45:00 2023-09-20 15:06:34 Routine Visit Ocampo [facility] 1.2.840.114 350.1.13.10 4.2.7.2.686 [id number] [facility] 2023-09-20 00:00:00 2023-09-20 00:00:00 Orders Only Doctor Unassigned, [place] [facility] 1.2840.114 350.1.13.10 4.2.7.2.686 [id number] 009 [id number] [facility] 2023-09-16 09:30:00 2023-09-16 09:30:00 Outpatient R [facility] [id number] [facility] 2023-09-13 11:30:00 2023-09-13 12:27:12 Home Sales Service Professional Visit Lab, Ang [facility] 1.20.114 350.1.13.10 4.2.7.2.686 [id number] [facility] 2023-09-13 11:30:00 2023-09-13 11:30:00 Outpatient R DAMARIS [facility] [id number] [facility] 2023-09-13 10:30:00 2023-09-13 10:44:17 Routine Visit Damaris [facility] 1.2840.114 350.1.13.10 4.2.7.2.686 [id number] [facility] 2023-09-13 00:00:00 2023-09-13 00:00:00 Orders Only Doctor Unassigned, [place] [facility] 1.2840.114 350.1.13.10 4.2.7.2.686 [id number] [facility] 2023-09-12 14:45:00 2023-09-12 14:51:15 Outpatient P CONNER DKButch [facility] [id number] [facility] 2023-09-12 14:45:00 2023-09-12 14:51:15 Home Sales Service Professional Visit Ultrasound, Joslyn PriteoDkbutch Ikstacia [facility] MEDICAL STAFF DIRECTOR [facility]NAL & [facility] 1.2.840.114 350.1.13.10 4.2.7.2.686 [id number] [facility] 2023-09-06 15:15:00 2023-09-06 15:15:00 Outpatient R MARCIA OCAMPO [facility] [id number] [facility] 2023-09-06 00:00:00 2023-09-06 00:00:00 Telephone Damaris Marcia [facility] 1.20.114 350.1.13.10 4.2.7.2.686 [id number] 134 [id number] [facility] 2023-08-23 13:15:00 2023-08-23 13:20:59 Outpatient R MARCIA OCAMPO [facility] [id number] [facility] 2023-08-23 13:15:00 2023-08-23 13:20:59 Routine Visit Damaris Marcia [facility] 1.2.840.114 350.1.13.10 4.2.7.2.686 [id number] 134 [id number] [facility] 2023-08-09 12:45:00 2023-08-09 12:48:32 Routine Visit Damaris Marcia [facility] 1.2.840.114 350.1.13.10 4.2.7.2.686 [id number] 134 [id number] [facility] 2023-08-09 09:30:00 2023-08-09 09:53:53 Outpatient P LEONA PRIETO [facility] [id number] [facility] 2023-08-09 09:30:00 2023-08-09 09:53:53 Home Sales Service Professional Visit Ultrasound, Joslyn Leona Prieto Leegisatish [facility] MEDICAL STAFF DIRECTOR [facility] MATERNAL & [facility] 1..840.114 350.1.13.10 4.2.7.2.686 [id number] [facility] 2023-08-08 10:45:00 2023-08-08 11:22:36 Outpatient R DAMARIS MARCIA [facility] [id number] [facility] 2023-08-08 10:45:00 2023-08-08 11:00:00 Home Sales Service Professional Visit Lab, Juan Carlos Ocampo [facility] 1..840.114 350.1.13.10 4.2.7.2.686 [id number] [facility] 2023-07-22 09:15:00 2023-07-22 09:15:00 Outpatient R [facility] [id number] [facility] 2023-07-19 11:15:00 2023-07-19 11:25:44 Outpatient R OCAMPOMARCIA [facility] [id number] [facility] 2023-07-19 11:15:00 2023-07-19 11:25:44 Routine Visit Damaris Marcia [facility] 1..840.114 350.1.13.10 4.2.7.2.686 [id number] 134 [id number] [facility] 2023-07-10 00:00:00 2023-07-10 00:00:00 Outpatient GC_GCBZW_Ka diradhaa_S [facility] [id number] [facility] 2023-07-09 00:00:00 2023-07-09 00:00:00 Telephone Damaris [facility] 1.2.840.114 350.1.13.10 4.2.7.2.686 [id number] 134 [id number] [facility] 2023-06-17 09:16:42 2023-06-17 09:16:42 Outpatient S[facility] [id number] John Beckman 2023-06-14 11:30:00 2023-06-14 11:40:45 Outpatient R MARCIA OCAMPO [facility] [id number] [facility] 2023-06-14 11:30:00 2023-06-14 11:40:45 Routine Visit Damaris [facility] 1.2.840.114 350.1.13.10 4.2.7.2.686 [id number] 134 [id number] [facility] 2023-05-29 10:45:00 2023-05-29 12:00:00 Home Sales Service Professional Visit Ultrasound, Marine Arciniega [facility] MEDICAL STAFF DIRECTOR [facility]NAL [facility] 1.2.840.114 350.1.13.10 4.2.7.2.686 [id number] [facility] 2023-05-29 10:45:00 2023-05-29 10:45:00 Outpatient [facility] [id number] [facility] 2023-05-23 00:00:00 2023-05-23 00:00:00 Telephone Damaris Marcia [facility] 1.2.840.114 350.1.13.10 4.2.7.2.686 [id number] 134 [id number] [facility] 2023-05-17 11:15:00 2023-05-17 11:27:00 Outpatient R MARCIA OCAMPO [facility] [id number] [facility] 2023-05-17 11:15:00 2023-05-17 11:27:00 Routine Visit Marcia Ocampo [facility] 1.0.114 350.1.13.10 4.2.7.2.686 [id number] 134 [id number] [facility] 2023-05-07 00:00:00 2023-05-07 00:00:00 Telephone Marcia Ocampo [facility] 1.840.114 350.1.13.10 4.2.7.2.686 [id number] 134 [id number] [facility] 2023-05-06 21:13:00 2023-05-06 22:09:00 Emergency X ATUL LEAL [facility] [id number] [facility] 2023-05-06 21:13:00 2023-05-06 22:09:00 Emergency [facility] 1.0.114 350.1.13.10 4.2.7.2.686 [id number] 084 [id number] [facility] 2023-05-06 07:30:00 2023-05-06 07:36:11 Outpatient R DAMARIS [facility] [id number] [facility] 2023-05-06 07:30:00 2023-05-06 07:36:11 Home Sales Service Professional Visit Lab, Juan Carlos - Martell Diana [facility] 1.114 350.1.13.10 4.2.7.2.686 [id number] [facility] 2023-04-30 07:30:00 2023-04-30 07:30:00 Outpatient R [facility] [id number] [facility] 2023-04-21 00:00:00 2023-04-21 00:00:00 Nurse Triage Marely Ly [facility] 1..114 350.1.13.10 4.2.7.2.686 [id number] [id number] [facility] 2023-04-19 11:00:00 2023-04-19 11:06:57 Routine Visit Marcia Ocampo [facility] 1..114 350.1.13.10 4.2.7.2.686 [id number] 134 [id number] [facility] 2023-04-19 11:00:00 2023-04-19 11:06:57 Outpatient R DAMARIS [facility] [id number] [facility] 2023-04-01 00:00:00 2023-04-01 00:00:00 Telephone Damaris [facility] 1..114 350.1.13.10 4.2.7.2.686 [id number] 134 [id number] [facility] 2023-03-29 14:00:00 2023-03-29 14:47:28 Nurse Visit [facility], Critical [facility]..114 350.1.13.10 4.2.7.2.686 [id number] 134 [id number] [facility] 2023-03-29 14:00:00 2023-03-29 14:47:28 Outpatient R DAMARIS [facility] [id number] [facility] 2023-03-29 00:00:00 2023-03-29 00:00:00 Telephone Leia Everett [facility] 1..114 350.1.13.10 4.2.7.2.686 [id number] 134 [id number] [facility] 2023-03-27 13:00:00 2023-03-27 13:00:00 Home Sales Service Professional Visit Lab, Juan Carlos Ocampo [facility] 1.84.114 350.1.13.10 4.2.7.2.686 [id number] [facility] 2023-03-27 13:00:00 2023-03-27 11:28:09 Outpatient R MARCIA OCAMPO [facility] [id number] [facility] 2023-03-27 11:00:00 2023-03-27 11:00:00 Outpatient R [facility] [id number] [facility] 2023-03-26 08:00:00 2023-03-26 10:57:52 Outpatient R MARCIA OCAMPO [facility] [id number] [facility] 2023-03-26 08:00:00 2023-03-26 10:57:52 Home Sales Service Professional Visit Lab, Juan Carlos - Juan A Ocampo [facility] 1..840.114 350.1.13.10 4.2.7.2.686 [id number] [facility] 2023-03-26 00:00:00 2023-03-26 00:00:00 Case Management Ocampo [facility] 1..840.114 350.1.13.10 4.2.7.2.686 [id number] 134 [id number] [facility] 2023-03-26 00:00:00 2023-03-26 00:00:00 Telephone Damaris [facility] 1.840.114 350.1.13.10 4.2.7.2.686 [id number] 134 [id number] [facility] 2023-03-25 00:00:00 2023-03-25 00:00:00 Telephone Damaris [facility] 1..840.114 350.1.13.10 4.2.7.2.686 [id number] 134 [id number] [facility] 2023-03-25 00:00:00 2023-03-25 00:00:00 Telephone Ocampo [facility] 1.2.84.114 350.1.13.10 4.2.7.2.686 [id number] 134 [id number] [facility] 2023-03-23 00:00:00 2023-03-23 00:00:00 Case Management OcampoMarcia [facility] 1.84.114 350.1.13.10 4.2.7.2.686 [id number] 134 [id number] [facility] 2023-03-22 10:45:00 2023-03-22 11:00:00 Home Sales Service Professional Visit Lab, Ang - [facility] 1.84.114 350.1.13.10 4.2.7.2.686 [id number] [facility] 2023-03-22 09:00:00 2023-03-22 09:34:31 Outpatient R MARCIA OCAMPO [facility] [id number] [facility] 2023-03-22 09:00:00 2023-03-22 09:34:31 Initial Visit Marcia Ocampo [facility] 1.84.114 350.1.13.10 4.2.7.2.686 [id number] 134 [id number] [facility] 2023-03-22 00:00:00 2023-03-22 00:00:00 Orders Only Doctor Unassigned, [place] [facility] 1.84.114 350.1.13.10 4.2.7.2.686 [id number] [facility] 2023-03-06 21:58:00 2023-03-06 23:40:00 Emergency X RAMIREZ SANCHEZ [facility] ERT [id number] [facility] 2023-03-06 21:58:00 2023-03-06 23:40:00 Emergency Ramirez [facility] 1.2.840.114 350.1.13.10 4.2.7.2.686 [id number] [id number] [facility] 2023-03-06 13:00:00 2023-03-06 13:00:00 Outpatient R EDITA OATES [facility] [id number] [facility] 2022-12-20 14:30:00 2022-12-20 15:15:47 Outpatient R EDITA OATES [facility] [id number] [facility] 2022-12-20 14:30:00 2022-12-20 15:15:47 Office Visit Edita Oates [facility] MEDICAL STAFF DIRECTOR [facility]NAL [facility] 1.2.840.114 350.1.13.10 4.2.7.2.686 [id number] [facility] 2022-12-20 00:00:00 2022-12-20 00:00:00 Orders Only Doctor Unassigned, [place] [facility] 1.840.114 350.1.13.10 4.2.7.2.686 [id number] [facility] 2022-12-14 09:15:00 2022-12-14 09:15:00 Outpatient SURJIT ARTEAGA [facility] [id number] [facility] 2022-07-18 13:00:00 2022-07-18 13:45:54 Outpatient R SURJIT RICE [facility] [id number] [facility] 2022-07-18 13:00:00 2022-07-18 13:45:54 Office Visit Surjit Rice [facility] MEDICAL STAFF DIRECTOR [facility] 1.2.840.114 350.1.13.10 4.2.7.2.686 [id number] [facility] 2021-12-14 08:45:00 2021-12-14 10:01:04 Outpatient R BUZZ BACKCHAYA [facility] [id number] [facility] 2021-12-14 08:45:00 2021-12-14 10:01:04 Office Visit Back, German Griffith [facility] MEDICAL STAFF DIRECTOR [facility] 1.2.840.114 350.1.13.10 4.2.7.2.686 [id number] 107 [id number] [facility] 2021-12-14 08:45:00 2021-12-14 10:01:04 Outpatient Nacho BUZZ BACKCHAYA [facility] [id number] [facility] 2021-12-14 00:00:00 2021-12-14 00:00:00 Orders Only Doctor Unassigned, [place] [facility] 1.2.840.114 350.1.13.10 4.2.7.2.686 [id number] [facility] 2021-12-12 09:30:00 2021-12-12 09:30:00 Outpatient Nacho PUENTEE BUZZCHAYA [facility] [id number] [facility] 2021-12-12 09:30:00 2021-12-12 09:30:00 Outpatient Nacho PUENTEEGERMAN [facility] [id number] [facility] 2021-12-12 09:30:00 2021-12-12 09:30:00 Outpatient GERMAN ALEXANDRE [facility] [id number] [facility] 2021-08-08 09:30:00 2021-08-08 09:30:00 Outpatient SKYLER YARBROUGH [facility] [id number] [facility] 2021-08-07 14:30:00 2021-08-07 15:15:07 Outpatient SKYLER YARBROUGH [facility] [id number] [facility] 2021-08-07 14:21:07 2021-08-07 15:15:07 Office Visit Skyler Cuellar [facility] MEDICAL STAFF DIRECTOR [facility] 1.2.840.114 350.1.13.10 4.2.7.2.686 [id number] [facility] 2021-08-07 00:00:00 2021-08-07 00:00:00 Orders Only Doctor Unassigned, [place] [facility] 1.2.840.114 350.1.13.10 4.2.7.2.686 [id number] [facility] 2021-07-20 09:30:00 2021-07-20 09:30:00 Outpatient R LORENZO CHEATHAM [facility] [id number] [facility] 2021-07-14 00:00:00 2021-07-14 00:00:00 Telephone Surjit Rice [facility] MEDICAL STAFF DIRECTOR [facility] 1.2.840.114 350.1.13.10 4.2.7.2.686 [id number] [facility] 2020-12-08 00:00:00 2020-12-08 00:00:00 Telephone German Back [facility] MEDICAL STAFF DIRECTOR [facility] 1.2.840.114 350.1.13.10 4.2.7.2.686 [id number] 2020-12-08 00:00:00 2020-12-08 00:00:00 Telephone German Back [facility] MEDICAL STAFF DIRECTOR [facility] 1.2.840.114 350.1.13.10 4.2.7.2.686 [id number] [facility] 2020-12-07 09:16:24 2020-12-07 10:08:04 Office Visit German Back [facility] MEDICAL STAFF DIRECTOR [facility] 1.2.840.114 350.1.13.10 4.2.7.2.686 [id number] 107 [id number] [facility] 2020-12-07 09:00:00 2020-12-07 09:00:00 Outpatient Nacho GERMAN BACK [facility] [id number] [facility] 2020-12-07 00:00:00 2020-12-07 00:00:00 Orders Only Doctor Unassigned, [place] [facility] 1.2840.114 350.1.13.10 4.2.7.2.686 [id number] [facility] 2020-05-02 00:00:00 2020-05-02 00:00:00 Telephone German Back [facility] MEDICAL STAFF DIRECTOR [facility]NAL [facility] 1.2840.114 350.1.13.10 4.2.7.2.686 [id number] 107 [id number] [facility] 2020-02-12 12:56:01 2020-02-12 13:27:54 Nurse Visit Visit, [facility] Nurse German aBck [facility] MEDICAL STAFF DIRECTOR [facility] 1..114 350.1.13.10 4.2.7.2.686 [id number] 107 [id number] [facility] 2020-02-12 13:00:00 2020-02-12 13:00:00 Outpatient GERMAN ALEXANDRE [facility] [id number] [facility] 2020-02-11 00:00:00 2020-02-11 00:00:00 Telephone German Back [facility] MEDICAL STAFF DIRECTOR [facility]NAL [facility] 1.20.114 350.1.13.10 4.2.7.2.686 [id number] [facility] 2020-02-11 00:00:00 2020-02-11 00:00:00 Telephone Surjit Rice [facility] MEDICAL STAFF DIRECTOR [facility] 1.2840.114 350.1.13.10 4.2.7.2.686 [id number] 107 [id number] [facility] 2020-02-09 14:00:00 2020-02-09 14:00:00 Outpatient R GERMAN BACK [facility] [id number] [facility] 2020-02-03 13:00:00 2020-02-03 13:00:00 Outpatient R [facility] [id number] [facility] 2019-12-31 00:39:27 2019-12-31 01:01:00 Emergency Monica Sanchez S [facility] 1.2.840.114 350.1.13.10 4.2.7.2.686 [id number] [id number] [facility] 2019-10-19 00:00:00 2019-10-19 00:00:00 Telephone German Back [facility] MEDICAL STAFF DIRECTOR [facility]NAL & [facility]ILD [facility] 1.2.840.114 350.1.13.10 4.2.7.2.686 [id number] 107 [id number] [facility] 2019-10-16 12:48:54 2019-10-16 14:02:54 Office Visit German Back [facility] MEDICAL STAFF DIRECTOR [facility] 1.2.840.114 350.1.13.10 4.2.7.2.686 [id number] 107 [id number] [facility] 2018-02-25 08:45:00 2018-02-25 08:45:00 Outpatient [facility] Medicine [id number] [facility] Results Test Description Test Time Test Comments Results Result Co mments Source [facility] [id number] 21:06:00* Test Item Value Reference Range Interpretation Comme nts POCT PREG (test code = 1605) Negative On board controls acceptable with C Line (test code = 3574) Yes POCT PREG LOT # (test code = 3575) POCT PREG TEST DATE ( test code = 3576) [facility] IMMUNE [id number] 15:17:58* Test Item Value Reference Range Interpretation Comme nts RHIG CANDIDATE? (test code = 5188) No- see comment Patient is not a candidate for RhIg- Patient is Rh Positive.Performed at [facility] Laboratory Services - [facility] Blood [id number] [place] [id number] Free: [phone] No. [id number] [facility] with [id number] 11:15:54* Test Item Value Reference Range Interpretation [...] 34.7 g/dL 31.6-35.1 RDW-SD (test code = 67941-3) 42.5 fL 39.0-49.9 RDW-CV (test code = 788-0) 13.1 % 12.0-15.5 PLT (test code = 777-3) 174 See_Comment [Automated message] The system which generated this result transmitted reference range: 166 - 358 10*3/?L. The reference range was not used to interpret this result as normal/abnormal. MPV (test code = 58027-9) 11.3 fL 9.5-12.9 NRBC/100 WBC (test code = 5365389150) 0.0 See_Comment [Automated message] The system which generated this result transmitted reference range: 0.0 - 10.0 /100 WBCs. The reference range was not used to interpret this result as normal/abnormal. NRBC x10^3 (test code = 5914286638) See_Comment [Automated message] The system which generated this result transmitted reference range: 10*3/?L. The reference range was not used to interpret this result as normal/abnormal. GRAN MAT (NEUT) % (test code = 770-8) 86.4 % IMM GRAN % (test code = 4297217136) 0.60 % LYMPH % (test code = 736-9) 6.9 % MONO % (test code = 5905-5) 5.1 % EOS % (test code = 713-8) 0.8 % BASO % (test code = 706-2) 0.2 % GRAN MAT x10^3(ANC) (test code = 2093478969) 12.14 10*3/uL 1.88-7.09 H IMM GRAN x10^3 (test code = 8596434996) 0.08 10*3/uL 0.00-0.06 H LYMPH x10^3 (test code = 731-0) 0.97 10*3/uL 1.32-3.29 L MONO x10^3 (test code = 742-7) 0.71 10*3/uL 0.33-0.92 EOS x10^3 (test code = 711-2) 0.11 10*3/uL 0.03-0.39 BASO x10^3 (test code = 704-7) 0.03 10*3/uL 0.01-0.07 Lab Interpretation (test code = 90164-5) Abnormal [facility] GLUCOSE (AUTOMATED)2023-09-26 03:26:13* Test Item Value Reference Range Interpretation Comme nts POCT GLU (test code = 1985929198) 86 mg/dL 70-110 Lab Interpretation (test cod e = 54044-9) Normal [facility] GLUCOSE (AUTOMATED)2023-09-26 00:49:14* Test Item Value Reference Range Interpretation Comme nts POCT GLU (test code = 6753261561) 79 mg/dL 70-110 Lab Interpretation (test cod e = 72752-0) [facility] 19:43:12* Test Item Value Reference Range Interpretation Comme nts POCT GLU (test code = 5026915147) 98 mg/dL 70-110 Lab Interpretation (test cod e = 52643-0) [facility] [id number] 16:25:00 Sachin William MD ? ? 09/25/2023 [...] YANETH sa line ?Guidance with: landmark technique}Epidural/Spinal [place] and/or Catheter: ?Epidural/Spinal Kit: BBraun ?Needle Type: [...] [facility] [id number] 16:25:00 Sachin William MD ? ? 09/25/2023 [...] YANETH sa line ?Guidance with: landmark technique}Epidural/Spinal [place] and/or Catheter: ?Epidural/Spinal Kit: BBraun ?Needle Type: [...] [facility]25 15:04:40* Test Item Value Reference Range Interpretation Comme nts POCT GLU (test code = 2385760092) 116 mg/dL 70-110 H Lab Interpretation (test cod e = 40516-2) [facility] - ONCE [id number] 15:00:00* Test Item Value Reference Range Interpretation Comme nts ABO & RH (test code = 20) O POSITIVE IAT (test code = 1185) Negative [facility] with [id number] 18:44:22* Test Item Value Reference Range Interpretation Comme nts WBC (test code = 6690-2) 8.10 See_Comment [Automated [employer]] The system which generated this result transmitted reference range: 4.30 - 11.10 10*3/?L. The reference range was not used to interpret this result as normal/abnormal. RBC (test code = 789-8) 3.99 See_Comment [Automated [employer]] The system which generated this result transmitted [...] 34.6 g/dL 31.6-35.1 RDW-SD (test code = 11655-0) 42.4 fL 39.0-49.9 RDW-CV (test code = 788-0) 12.9 % 12.0-15.5 PLT (test code = 777-3) 197 See_Comment [Automated [employer]] The system which generated this result transmitted reference range: 166 - 358 10*3/?L. The reference range was not used to interpret this result as normal/abnormal. MPV (test code = 32335-8) 11.4 fL 9.5-12.9 NRBC/100 WBC (test code = 9592463662) 0.0 See_Comment [Automated me ssage] The system which generated this result transmitted reference range: 0.0 - 10.0 /100 WBCs. The reference range was not used to interpret this result as normal/abnormal. NRBC x10^3 (test code = 6518154159) See_Comment [Automated messa ge] The system which generated this result transmitted reference range: 10*3/?L. The reference range was not used to interpret this result as normal/abnormal. GRAN MAT (NEUT) % (test code = 770-8) 78.2 % IMM GRAN % (test code = 6242622638) 0.50 % LYMPH % (test code = 736-9) 15.3 % MONO % (test code = 5905-5) 4.4 % EOS % (test code = 713-8) 1.2 % BASO % (test code = 706-2) 0.4 % GRAN MAT x10^3(ANC) (test code = 8561110451) 6.33 10*3/uL 1.88-7.09 IMM GRAN x10^3 (test code = 1752319017) 0.04 10*3/uL 0.00-0.06 LYMPH x10^3 (test code = 731-0) 1.24 10*3/uL 1.32-3.29 L MONO x10^3 (test code = 742-7) 0.36 10*3/uL 0.33-0.92 EOS x10^3 (test code = 711-2) 0.10 10*3/uL 0.03-0.39 BASO x10^3 (test code = 704-7) 0.03 10*3/uL 0.01-0.07 Lab Interpretation (test code = 96887-8) Abnormal [facility] with [id number] 18:44:22* Test Item Value Reference Range Interpretation Comme nts WBC (test code = 6690-2) 8.10 See_Comment [Automated messa ge] The system which generated this result transmitted reference range: 4.30 - 11.10 10*3/?L. The reference range was not used to interpret this result as normal/abnormal. RBC (test code = 789-8) 3.99 See_Comment [Automated [employer] ge] The system which generated this result [...] 34.6 g/dL 31.6-35.1 RDW-SD (test code = 88853-5) 42.4 fL 39.0-49.9 RDW-CV (test code = 788-0) 12.9 % 12.0-15.5 PLT (test code = 777-3) 197 See_Comment [Automated [employer] Techa ge] The system which generated this result transmitted reference range: 166 - 358 10*3/?L. The reference range was not used to interpret this result as normal/abnormal. MPV (test code = 70474-2) 11.4 fL 9.5-12.9 NRBC/100 WBC (test code = 1110723516) 0.0 See_Comment [Automated [employer] ssage] The system which generated this result transmitted reference range: 0.0 - 10.0 /100 WBCs. The reference range was not used to interpret this result as normal/abnormal. NRBC x10^3 (test code = 9672432546) See_Comment [Automated [employer] Techa ge] The system which generated this result transmitted reference range: 10*3/?L. The reference range was not used to interpret this result as normal/abnormal. GRAN MAT (NEUT) % (test code = 770-8) 78.2 % IMM GRAN % (test code = 3809295728) 0.50 % LYMPH % (test code = 736-9) 15.3 % MONO % (test code = 5905-5) 4.4 % EOS % (test code = 713-8) 1.2 % BASO % (test code = 706-2) 0.4 % GRAN MAT x10^3(ANC) (test code = 9391827321) 6.33 10*3/uL 1.88-7.09 IMM GRAN x10^3 (test code = 3389341376) 0.04 10*3/uL 0.00-0.06 LYMPH x10^3 (test code = 731-0) 1.24 10*3/uL 1.32-3.29 L MONO x10^3 (test code = 742-7) 0.36 10*3/uL 0.33-0.92 EOS x10^3 (test code = 711-2) 0.10 10*3/uL 0.03-0.39 BASO x10^3 (test code = 704-7) 0.03 10*3/uL 0.01-0.07 Lab Interpretation (test code = 32058-6) Abnormal [facility] with [id number] 20:29:26* Test Item Value Reference Range Interpretation Comme nts WBC (test code = 6690-2) 8.96 See_Comment [Automated [employer] Te[employer] ge] The system which generated this result transmitted reference range: 4.30 - 11.10 10*3/?L. The reference range was not used to interpret this result as normal/abnormal. RBC (test code = 789-8) 4.20 See_Comment [Automated [employer] Te[employer] ge] The system which generated this result [...] 33.9 g/dL 31.6-35.1 RDW-SD (test code = 56453-9) 41.6 fL 39.0-49.9 RDW-CV (test code = 788-0) 12.6 % 12.0-15.5 PLT (test code = 777-3) 181 See_Comment [Automated messa ge] The system which generated this result transmitted reference range: 166 - 358 10*3/?L. The reference range was not used to interpret this result as normal/abnormal. MPV (test code = 06924-9) 11.8 fL 9.5-12.9 NRBC/100 WBC (test code = 8689175632) 0.0 See_Comment [Automated [employer] ssage] The system which generated this result transmitted reference range: 0.0 - 10.0 /100 WBCs. The reference range was not used to interpret this result as normal/abnormal. NRBC x10^3 (test code = 8647071926) See_Comment [Automated messa ge] The system which generated this result transmitted reference range: 10*3/?L. The reference range was not used to interpret this result as normal/abnormal. GRAN MAT (NEUT) % (test code = 770-8) 79.2 % IMM GRAN % (test code = 7501965810) 0.90 % LYMPH % (test code = 736-9) 14.8 % MONO % (test code = 5905-5) 4.2 % EOS % (test code = 713-8) 0.6 % BASO % (test code = 706-2) 0.3 % GRAN MAT x10^3(ANC) (test code = 6711362808) 7.09 10*3/uL 1.88-7.09 IMM GRAN x10^3 (test code = 2449474706) 0.08 10*3/uL 0.00-0.06 H LYMPH x10^3 (test code = 731-0) 1.33 10*3/uL 1.32-3.29 MONO x10^3 (test code = 742-7) 0.38 10*3/uL 0.33-0.92 EOS x10^3 (test code = 711-2) 0.05 10*3/uL 0.03-0.39 BASO x10^3 (test code = 704-7) 0.03 10*3/uL 0.01-0.07 Lab Interpretation (test code = 85948-5) Abnormal [facility] Urinalysis w/o Specific [id number] 16:37:00* Test Item Value Reference Range Interpretation [...] = 3257) N/A Negative - Negati ve [facility] Urinalysis w/o Specific [id number] 19:09:00* Test Item Value Reference Range Interpretation [...] = 3257) N/A Negative - Negati ve [facility] URINALYSIS W/O SPECIFIC [id number] 18:37:00* Test Item Value Reference Range Interpretation [...] = 3257) N/A Negative - Negati ve [facility] URINALYSIS W/O SPECIFIC [id number] 17:15:00* Test Item Value Reference Range Interpretation [...] = 3257) N/A Negative - Negati ve [facility] URINALYSIS W/O SPECIFIC [id number] 16:55:00* Test Item Value Reference Range Interpretation [...] = 3257) Negative [facility] [id number] 16:05:00* Test Item Value Reference Range Interpretation [...] = 3257) N/A Negative - Negati ve [facility] URINALYSIS W/O SPECIFIC [id number] 15:36:00* Test Item Value Reference Range Interpretation [...] [facility] 20:21:55* Test Item Value Reference Range Interpretation Comme nts HGB A1C (test code = 4548-4) 4.8 % 4.0-5.7 ESTEPHANIA (test code = ESTEPHANIA) Reference RangesNormal: <5.7%Prediabetes: 5.7 - 6.4%Diabetes: > 6.5% Lab Interpretation (test code = 39111-8) Normal [facility] URINALYSIS W/O SPECIFIC [id number] 14:01:00* Test Item Value Reference Range Interpretation [...] = 3257) n/a Negative - Negati ve [facility] [id number] 03:07:00* Test Item Value Reference Range Interpretation Comme nts POCT PREG (test code = 1605) Positive On board controls acceptable with C Line (test code = 3574) Yes POCT PREG LOT # (test code = 3575) [id number] POCT PREG TEST DATE ( test code = 3576) 06/14/2024 Lab Interpretation (test cod e = 58185-8) Normal [facility] History and Physical Notes Date/Time Note Provider [...] Operations: Past Surgical History: Procedure Laterality Date ID FISSURECTOMY INCL SPHINCTEROTOMY WHEN PERFORMED Past Medical History: Diagnosis Date Anemia of mother in , antepartum 01/24/2018 resolved Anxiety Managed by [facility], managing without medication Chlamydia 2010, 2013 treated Depression managed by [facility], ongoing, managing without medication Family history [...] details Marcia Ocampo MD 09/25/2023 9:59 AM [facility] Procedure Notes Date/Time Note Provider Source [...] YANETH saline Guidance with: landmark technique} Epidural/Spinal [place] and/or Catheter: Epidural/Spinal Kit: Misty Needle Type: [...] more heme aspirated. Negative [facility] 10[facility]01:52 Procedure(s): INSERT CERVICAL DILATOR Pre-Procedure Diagnose(s): 39 weeks gestation of ; GDM, class A1 Post-Procedure Diagnose(s): 39 weeks gestation of ; GDM, class A1 Duenas bulb inserted in a sterile manner and inflated with 60 cc of normal saline without complications. Patient tolerated the procedure well. Marcia Ocampo MD #[id number] 09/25/2023 10:02 AM [facility] Notes Date/Time Note Provider Source 2023-11-13 [...] day." Leia Everett RN 11/13/2023 8:55 AM H ACCOMMODATION SUPPORT WORKER Leia Everett RN [facility] 2023-11-13 08:13:52 Patient states she has had a boil that keeps draining. She has been putting hot compresses and is requesting an antibiotic. [facility]/pharmacy #[id number] - [place], [place] - [address] AT [facility] YL Flores [facility] 2023-11-01 10:04:03 Spoke with patient. Patient scheduled for nexplanon insertion with Dr. Ocampo 11/06/2023 Ryan Allen RN 11/01/2023 10:04 AM YL Allen RN [facility] 2023-11-01 08:29:28 Patient is calling stating she started period on 10/31. She states Dr. Ocampo told her to call and notify the nurse. She is requesting to get the nexplanon. She will go to [place] if needed. LY Flores [facility] 2023-09-27 10:09:38 Problem: Pain Goal: Control of [...] Outcome: Progressing as expected YL Polanco RN [facility] 2023-09-27 08:51:16 Problem: Pain Goal: Control of pain at or below patient's documented comfort goal Outcome: Progressing as expected Goal: Reduction in pain sensation Outcome: Progressing as expected Problem: Discharge Planning - Goal: Adequate for discharge Outcome: Progressing as expected Goal: Mood stable Outcome: Progressing as expected Problem: Falls, Risk of Goal: Absence of falls Outcome: Progressing as expected YL [facility] 2023-09-27 01:10:37 Problem: Pain Goal: Control of pain at or below patient's documented comfort goal Outcome: Progressing as expected Goal: Reduction in pain sensation Outcome: Progressing as expected Problem: Discharge Planning - Goal: Adequate for discharge Outcome: Progressing as expected Goal: Mood stable Outcome: Progressing as expected Problem: Falls, Risk of Goal: Absence of falls Outcome: Progressing as expected H ACCOMMODATION SUPPORT WORKER Carmelina Landa RN [facility] 2023-09-26 09:54:20 Problem: Pain Goal: Control of pain at or below patient's documented comfort goal Outcome: Progressing as expected Goal: Reduction in pain sensation Outcome: Progressing as expected Problem: Discharge Planning - Goal: Adequate for discharge Outcome: Progressing as expected Goal: Mood stable Outcome: Progressing as expected YL Adamson RN [facility] 2023-09-26 07:06:23 Patient: Artemio Clinton Procedure Summary [...] recovery from neuraxial block Fall precautions given H ACCOMMODATION SUPPORT WORKER AN-ANESTHESIOLOGY ANESTHESIOLOGIST [facility] 2023-09-26 00:23:34 Problem: Discharge Planning - Goal: Adequate for discharge Outcome: Progressing as expected Problem: Discharge Planning - Goal: Mood stable Outcome: Progressing as expected YL Jose RN [facility] 2023-09-26 00:22:47 Problem: Intrapartum process (including labor [...] Marisol Jose RN Outcome: Progressing as expected [facility] 2023-09-25 23:43:00 DELIVERY BY SPONTANEOUS VAGINAL [...] cord was double clamped, cut and the infant was handed off the field to the [...] 9 Marcia Ocampo MD 09/26/2023 7:47 AM [facility] 2023-09-25 19:44:09 Problem: Intrapartum process (including [...] in pain sensation Outcome: Progressing as expected [facility] 2023-09-25 11:00:52 Name/ MRN / Age / Gender: Artemio Clinton [id number] 27 year old female BMI: Estimated body [...] Anesthesia Preop Eval (physical exam) Anesthesia Preop: [id number] NPO Status Verified Anesthesia History (-) Hx [...] and 20g Endo/Other Negative Endo/Other ROS Other MEDICAL STAFF DIRECTOR Negative MEDICAL STAFF DIRECTOR ROS (-) S/P BTL P: 1031 Pediatric Preoperative Medication Instructions Continue taking all prescribed medications except: SILVANA inhibitors, ARBs, diuretics, all oral diabetes medications Anticoagulant Therapy: Defer to surgeons Insulin: Take 1/2 dose the night prior to surgery. Hold on DOS. Phentermine: Alert [facility] anesthesiologist SGLT2 Inhibitors: "gliflozins" to be held for 3 days prior to elective surgeries GLP1 Agonosit: stop 7 days prior to surgery MAC Cases: Continue taking SILVANA inhibitors and ARBs ASA Classification ASA: 2 Current Medications: No outpatient medications have been marked as taking for the 09/25/23 encounter (Hospital Encounter). 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 Pt verbalized understanding. H ACCOMMODATION SUPPORT WORKER Brook Sanchez RN [facility] 2023-09-24 12:15:00 Images from the original note were not included. Venipuncture collection performed by clean technique on the left hand. Total of 1 attempts were made. Slight pressure and a bandage/dressing were applied to the site(s). The patient experienced no complications. The following specimens were processed according to instructions and sent to [facility] laboratories per lab order on 09/24/2023 : LT BLUE SST 2 RED 1 LAV 1 PPT DK GREEN (LiHep) DK GREEN (SodH) JAMIL DK BLUE (K2) DK BLUE (S) ACD Blood Culture NIPT/NTD [facility] 2023-09-24 12:15:00 All winn do not have to draw TS. YL Martinez [facility] 2023-09-24 12:15:00 Addended by: ISAC MARTINEZ on: 09/24/2023 02:28 PM Modules accepted: Orders [facility] 2023-09-20 14:45:00 Age: [age] year old [...] in 4 to 6 weeks for visit [facility] 2023-09-13 11:30:00 Images from the original note were not included. Venipuncture collection performed by clean technique on the right anticubitus. Total of 1 attempts were made. Slight pressure and a bandage/dressing were applied to the site(s). The patient experienced no complications. The following specimens were processed according to instructions and sent to [facility] laboratories per lab order on 09/13/2023 : LT BLUE SST RED LAV 1 PPT DK GREEN (LiHep) DK GREEN (SodH) JAMIL DK BLUE (K2) DK BLUE (S) ACD Blood Culture NIPT/NTD [facility] 2023-09-13 10:30:00 Age: [age] year old [...] today RTC in 1 wk for PN [facility] 2023-09-06 15:36:01 Paxlovid 300 mg x 5 day sent in to pharmacy on file per Dr. Ocampo. Patient notified of rx sent in. Advised patient of importance of staying hydrated, taking otc safe medications for symptoms, monitoring FKC, and to monitor symptoms. Strong ER precautions given. Patient verbalized understanding. Leia Everett RN 09/06/2023 3:38 PM H ACCOMMODATION SUPPORT WORKER Leia Everett RN [facility] 2023-09-06 11:02:38 Patient states that she tested positive for covid yesterday at [facility], c/o headache, sore throat, runny nose, body [...] appt. Leia Everett RN 09/06/2023 11:10 AM [facility] 2023-09-06 10:39:31 Pt calling says she felt sick and went to er yesterday tested positive for covid has appt later today H ACCOMMODATION SUPPORT WORKER Altagracia Rome [facility] 2023-05-23 09:40:44 Formatting of this n ote might be different from the original. Patient going to come picker tender dental clearance from [facility] today. Leia Everett RN 05/23/2023 9:40 AM Leia Everett RN [facility] 2023-05-23 09:34:23 Formatting of this n ote might be different from the original. Patient is needing a dental clearance for a filling. Her appointment is scheduled on 06/06/2023. She will be getting it done at [facility] in [place], she did not have the fax number. She will either like it faxed or she can pick it up. Adele Flores [facility] 2023-05-17 11:15:00 Formatting of this n ote might be different from the original. Images from the original note were not included. Age: [age] year old GA: 20w2d Left buttock abscess - First present to [facility] on 04/21/23 and was prescribed Clindamycin. She completed clindamycin as prescribed. She re-presented to [facility] ER on 05/06/23 for the same problem. [...] 05/29/23 Follow-up in 4 weeks for visit [facility] 2023-05-07 12:49:05 Formatting of this n ote might be different from the original. Patient notified of lab results. 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 Advised patient Dr. Ocampo will go over in more detail at visit and answer any additional questions. Patient verbalized understanding. Leia Everett RN 05/07/2023 12:49 PM Leia Everett RN [facility] 2023-05-07 11:55:30 Formatting of this n ote might be different from the original. Pt would like a nurse to call her back and go over her labs with her. Jaja Fay [facility] 2023-05-06 21:59:11 Formatting of this n ote [...] in no apparent distress, Nabila Andre RN [facility] 2023-05-06 20:50:00 Formatting of this n ote [...] 18 weeks LMP 12/27/2022 Tiffanie Horton RN [facility] 2023-05-06 20:47:00 Associated Order(s): Incision and Drainage Images from the original note were not included. 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 treatment: None Travel and Exposure Screening: Symptoms [...] , antepartum 01/24/2018 resolved Anxiety Managed by [facility], managing without medication Chlamydia 2013 treated Depression managed by [facility], ongoing, managing without medication Family history [...] History: Past Surgical History: Procedure Laterality Date ID FISSURECTOMY INCL SPHINCTEROTOMY WHEN PERFORMED Review of [...] Alternatives discussed: No treatment and delayed treatment [place] protocol: Immediately prior to procedure, a time [...] these medications No medications on file Follow-up: [facility] 2023-05-06 07:30:00 Formatting of this n ote [...] processed according to instructions and sent to [facility] laboratories per lab order on 05/06/2023 : LT BLUE SST 2 RED LAV PPT DK GREEN (LiHep) DK GREEN (SodH) JAMIL DK BLUE (K2) DK BLUE (S) ACD Blood Culture NIPT/NTD [facility] 2023-04-21 14:49:00 Formatting of this n ote might be different from the original. Regarding: Pt wants to know if she can take pepto bismol ----- Message from Terrell Oscar sent at 04/21/2023 2:48 PM CDT ----- Artemio Clinton is a 27 year old female Pt wants to know if she can take Pepto bismol for a stomach ache. Marely Ly RN [facility] 2023-04-21 14:49:00 Formatting of this n ote [...] - Abdominal Pain Less Than 20 Weeks [id number] EM Soto, RN [facility] Access Center Triage Nurse T [facility] 2023-04-19 11:00:00 Formatting of this n ote [...] ordered Follow-up in 4 weeks for visit [facility] 2023-04-01 14:27:08 Formatting of this n ote might be different from the original. Fax received from [employer] requesting a prior authorization for the test strips. Spoke with pharmacy and confirmed all the supplies have been picked up at no charge, PA not required. Linsey Artis MA [facility] 2023-03-29 16:16:43 Formatting of this n ote might be different from the original. Prema results received via fax. Panorama- low risk, female Horizon- negative for 14 out of 14 diseases Spoke with patient, name and verified. Patient informed of results including gender. Results signed, will scan and upload a copy to [employer]. Leia Everett RN 03/29/2023 4:17 PM Leia Everett RN [facility] 2023-03-27 13:00:00 Formatting of this n ote is different from the original. Images from the original note were not included. Venipuncture collection performed by clean technique on the right anticubitus. Total of 1 attempts were made. Slight pressure and a bandage/dressing were applied to the site(s). The patient experienced no complications. The following specimens were processed according to instructions and sent to [facility] laboratories per lab order on 03/27/2023 LT BLUE SST RED LAV 1 PPT DK GREEN (LiHep) DK GREEN (SodH) JAMIL DK BLUE (K2) DK BLUE (S) ACD Blood Culture NIPT/NTD [facility] 2023-03-27 09:17:43 Formatting of this n ote [...] RN 03/27/2023 9:18 AM Edith Mills RN [facility] 2023-03-26 16:49:12 Formatting of this n ote might be different from the original. Pt called and would like someone to go over her results with her. Please advise Taurus Parker [facility]
--- NOTE | 2025-01-13 07:30 | EDPHYS ---
Physician Documentation [facility] Name: Mitra Melendez Age: 29 yrs Sex: Female : 1995 Arrival Date: 01/13/2025 Time: 07:10 Bed 14 Private MD: ED Physician Uli Small HPI: 01/13 07:38 This 29 yrs old Female presents to ER via Ambulatory with complaints of Toothache. rt 07:38 For the past month, the patient has had a left-sided jaw pain after having extensive rt dental cleaning by dental hygienist students, states that she ate some beef jerky yesterday making the pain worse. States that the pain is worse in the morning. Denies pain to the teeth. Denies other acute complaints, symptoms are mild in severity, no other aggravating or alleviating factors.. 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 - Infectious Disease History:: Denies. - Social history:: Smoking status: Patient reports the use of cigarette tobacco products, smokes one pack cigarettes per day. - Family history:: not pertinent. ROS: 07:38 Constitutional: Negative for fever, chills, and weight loss, ENT: Negative for injury, rt pain, and discharge, Cardiovascular: Negative for chest pain, palpitations, and edema, Respiratory: Negative for shortness of breath, cough, wheezing, and pleuritic chest pain, Abdomen/GI: Negative for abdominal pain, nausea, vomiting, diarrhea, and constipation, Skin: Negative for injury, rash, and discoloration, Neuro: Negative for headache, weakness, numbness, tingling, and seizure, Exam: 07:38 Constitutional: This is a well developed, well nourished patient who is awake, alert, rt and in no acute distress. Head/Face: Normocephalic, atraumatic. Chest/axilla: Normal chest wall appearance and motion. Nontender with no deformity. No lesions are appreciated. Cardiovascular: Regular rate and rhythm with a normal S1 and S2. No gallops, murmurs, or rubs. Normal PMI, no JVD. No pulse deficits. Respiratory: Lungs have equal breath sounds bilaterally, clear to auscultation and percussion. No rales, rhonchi or wheezes noted. No increased work of breathing, no retractions or nasal flaring. Abdomen/GI: Soft, non-tender, with normal bowel sounds. No distension or tympany. No guarding or rebound. No evidence of tenderness throughout. Skin: Warm, dry with normal turgor. Normal color with no rashes, no lesions, and no evidence of cellulitis. MS/ Extremity: Pulses equal, no cyanosis. Neurovascular intact. Full, normal range of motion. 07:38 ENT: No dental caries, oropharyngeal edema, erythema, facial swelling. There is mild tenderness at the left TMJ with no clicking.. Vital Signs: 07:18 BP 110 / 85; Pulse 86; Resp 16; Temp 97.6(O); Pulse Ox 99% ; Weight 71.21 kg; Height 8 db ft. 7 in. ; Pain 6/10; 07:18 Body Mass Index 10.40 (71.21 kg, 261.62 cm) db 07:18 Pain Scale: Adult db MDM: 07:20 Medical Screening Exam initiated rt 07:38 Differential diagnosis: TMJ, dental pain. Data reviewed: vital signs, nurses notes. rt Test considered but Not performed: Other Details No signs of abscess, dislocation, CT scan not indicated. Counseling: I had a detailed discussion with the patient and/or guardian regarding the historical points, exam findings, and any diagnostic results supporting the discharge/admit diagnosis, the need for outpatient follow up. Administered Medications: 07:35 Drug: Ketorolac IM 30 mg IM once Route: IM; Site: right deltoid; db 07:49 Follow up: Response: No adverse reaction db Disposition Summary: 01/13/25 07:30 Discharge Ordered Notes: Location: Home rt Problem: new rt Symptoms: are unchanged rt Condition: Stable rt Diagnosis - Arthralgia of temporomandibular joint rt Followup: rt - With: Private Physician - When: 2 - 3 days - Reason: Discharge Instructions: - Discharge Summary Sheet rt - Temporomandibular Joint Syndrome rt Forms: - Medication Reconciliation Form rt - Antibiotic Education rt - Prescription Opioid Use rt - Patient Portal Instructions rt - Leadership Thank You Letter rt Prescriptions: - Diclofenac Sodium 75 mg Oral tablet, delayed release (enteric coated) - take 1 tablet ORAL route 2 times per day; 14 tablet; Refills: 0, Product rt Selection Permitted - Medrol (Gonzalo) 4 mg Oral Tablets, Dose Pack - take 1 tablet ORAL route as directed - follow package instructions; 1 packet; rt Refills: 0, Product Selection Permitted Signatures: Brynn Galicia RN RN db Uli Small MD MD rt Azael Talley RN RN rg5 Corrections: (The following items were deleted from the chart) 07:20 07:18 Social history: Smoking status: Patient denies any tobacco usage or history of. rg5 rg5
--- NOTE | 2025-01-13 07:30 | ER ---
Nurse's Notes [facility] Name: Mitra Melendez Age: 29 yrs Sex: Female : 1995 Arrival Date: 01/13/2025 Time: 07:10 Bed 14 Private MD: Diagnosis: Arthralgia of temporomandibular joint Presentation: 01/13 07:17 Coronavirus screen: Client denies travel out of the [place] in the last 14 days. At this rg5 time, the client does not indicate any symptoms associated with coronavirus-19. Ebola Screen: Patient negative for fever greater than or equal to 101.5 degrees Fahrenheit, and additional compatible Ebola Virus Disease symptoms Patient denies exposure to infectious person. Patient denies travel to an Ebola-affected area in the 21 days before illness onset. No symptoms or risks identified at this time. Initial Sepsis Screen: Does the patient meet any 2 criteria? No. Patient's initial sepsis screen is negative. Does the patient have a suspected source of infection? No. Patient's initial sepsis screen is negative. 07:17 Method Of Arrival: Ambulatory rg5 07:17 Chief complaint: Patient states: DENTAL PAIN WORSE YESTERDAY AFTER EATING BEEF JERKEY. db STATES DOES NOT WANT A "NARCOTIC:. NAD. 07:19 Risk Assessment: Do you want to hurt yourself or someone else? Patient reports no rg5 desire to harm self or others. Onset of symptoms was January 12, 2025. 07:19 Acuity: ELBERT 4 rg5 Triage Assessment: 07:20 General: Appears in no apparent distress. uncomfortable, Behavior is calm, cooperative. rg5 Pain: Complains of pain in mouth. EENT: Reports pain DENTAL PAIN. Neuro: Level of Consciousness is awake, alert, obeys commands, Oriented to person, place, time, situation. Respiratory: Airway is patent Respiratory effort is even, unlabored, Respiratory pattern is regular, symmetrical. 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 - Infectious Disease History:: Denies. - Social history:: Smoking status: Patient reports the use of cigarette tobacco products, smokes one pack cigarettes per day. - Family history:: not pertinent. Screenin:45 [facility] ED Fall Risk Assessment (Adult) History of falling in the last 3 months, db including since admission No falls in past 3 months (0 pts) Confusion or Disorientation No (0 pts) Intoxicated or Sedated No (0 pts) Impaired Gait No (0 pts) Mobility Assist Device Used No (0 pt) Altered Elimination No (0 pt) Score/Fall Risk Level 0 - 2 = Low Risk Oriented to surroundings, Maintained a safe environment. Abuse screen: Denies threats or abuse. Denies injuries from another. Nutritional screening: No deficits noted. Tuberculosis screening: No symptoms or risk factors identified. Assessment: 07:20 Reassessment: SEE TRIAGE FOR INITIAL ASSESSMENT. db 07:45 Reassessment: Patient appears in no apparent distress at this time. Patient and/or db family updated on plan of care and expected duration. Pain level reassessed. Patient is alert, oriented x 3, equal unlabored respirations, skin warm/dry/pink. Vital Signs: 07:18 BP 110 / 85; Pulse 86; Resp 16; Temp 97.6(O); Pulse Ox 99% ; Weight 71.21 kg; Height 8 db ft. 7 in. ; Pain 6/10; 07:18 Body Mass Index 10.40 (71.21 kg, 261.62 cm) db 07:18 Pain Scale: Adult db ED Course: 07:14 Patient arrived in ED. gl 07:15 Uli Small MD is Attending Physician. rt 07:15 Azael Talley RN is Primary Nurse. rg5 07:17 Arm band placed on Patient placed in an exam room. db 07:19 Triage completed. rg5 07:45 Patient has correct armband on for positive identification. Bed in low position. Call db light in reach. Side rails up X 1. Provided Education on: DISCHARGE AND FOLLOWUP. Pulse ox on. NIBP on. Warm blanket given. Pillow given. 07:45 No provider procedures requiring assistance completed. Patient did not have IV access db during this emergency room visit. Administered Medications: 07:35 Drug: Ketorolac IM 30 mg IM once Route: IM; Site: right deltoid; db 07:49 Follow up: Response: No adverse reaction db Medication: 07:45 VIS not applicable for this client. db Outcome: 07:30 Discharge ordered by . rt 07:45 Discharged to home ambulatory, db 07:45 Condition: stable 07:45 Discharge instructions given to patient, Instructed on discharge instructions, follow up and referral plans. Prescriptions given X 1, 07:49 Patient left the ED. db Signatures: Brynn Galicia RN RN db Uli Small MD MD rt Azael Talley RN RN rg5 Matilde Pike, Reg Reg gl Corrections: (The following items were deleted from the chart) 07:20 07:18 71.21 kg; Height 8 ft. 7 in.; BMI: 10.4; Pain 6/10, Adult; 5 [facility] 07:20 07:18 BP 110 / 85; Pulse 86bpm; Resp 16bpm; Pulse Ox 99%; 71.21 kg; Height 8 ft. 7 in.; 5 BMI: 10.4; Pain 6/10, Adult; [facility] 07:20 07:18 Social history: Smoking status: Patient denies any tobacco usage or history of. [place] [id number] 07:31 07:17 Chief complaint: Patient states: DENTAL PAIN WORSE YESTERDAY AFTER EATING BEEF db JERKEY. STATES DOES NOT WANT A "NARCOTIC" [facility] 07:31 07:17 Chief complaint: Patient states: DENTAL PAIN WORSE YESTERDAY AFTER EATING BEEF db JERKEY. STATES DOES NOT WANT A "NARCOTIC" :31 07:19 Onset of symptoms was January 12, 2025 [facility] : 07:18 BP 110 / 85; Pulse 86bpm; Resp 16bpm; Pulse Ox 99%; Temp 97.6F Oral; 71.21 kg; db Height 8 ft. 7 in.; BMI: 10.4; Pain 6/10, Adult; [facility] 07:32 07:17 Chief complaint: Patient states: DENTAL PAIN WORSE YESTERDAY AFTER EATING BEEF db JERKEY. STATES DOES NOT WANT A "NARCOTIC:. NAD 07:32 07:20 Arm band placed on Patient placed in an exam room, [facility] 07:33 07:21 Reassessment: SEE TRIAGE FOR INITIAL ASSESSMENT [facility]
[2025-01-13] MEDS ORDERED: KETOROLAC 30 MG/ML INJ ONE (07:37)
[2025-01-13 14:53] VITALS: BP 110/85; TEMP 97.6; O2SAT 99
== END 2025-01-13 07:49 | disposition home or self-care (01) ==
LOC: ER 07:10
DX: M26.622 Arthralgia of left temporomandibular joint (principal); F17.210 Nicotine dependence, cigarettes, uncomplicated
CPT/HCPCS: 96372; 99284

== ENCOUNTER 2025-06-07 07:57 | Emergency (ER) | payer OTHER ==
--- OUTSIDE RECORDS SUMMARY | 2025-06-07 08:12 | XMS REPORT | Continuity of Care Document ---
Author Name Unknown Address [address] [facility] [address] [place] [address] Organization [facility] [place] Address [address] [facility] [address] [place] [address] Care Team Providers Care [employer] Setter Name Role Phone PCP, PATIENT DOES NOT HAVE A Primary Care Physic katlin Unavailable MARCIA OCAMPO Attending Clinician Unavailable CARITO PICHARDO Attending Clinician Unavailable Marcia Ocampo MD Attending Clinician [phone] Doctor Unassigned, [place] Attending Clinician U Sachin Coates MD Attending Clinicia n Loreta Mccoy MD Attending Clinician [phone] Po, [facility] Lab Main Attending Clinician Unavailabl satish Lab, Ang - Db Attending Clinician Unavailable LEONA PRIETO Attending Clinician Unav ailable Ultrasound, LenoreMfmax Attending Clinician UnavailLeona Escalera MD Attending Clinician + Marine Olmstead MD Attending Clinician [phone] MARINE OLMSTEAD Attending Clinician Unavailable MARINE OLMSTEAD Attending Clinician Unavailable ATUL LEAL Attending Clinician Unavailable Atul Leal DO Attending Clinician [phone] Martell Majano MD Attending Clinician [phone] Marely Ly RN Attending Clinician Unavailabl e Nurse, [facility] Attending Clinician Un available Leia Everett RN Attending Clinician Unavailabl e RAMIREZ SANCHEZ Attending Clinician Unavailable Ramirez Sanchez MD Attending Clinician [phone] EDITA OATES Attending Clinician Unavailhien Oates CNM, Edita Stanford Attending Clinician GERMAN BACK Attending Clinician Unavailab le SURJIT RICE Attending Clinician Unavail able [place] WHCNPSurjit Attending Clinician + Italo MANAGER OF SELECTION AND ASSESSMENTGerman Attending Clinician + [phone] SKYLER CUELLAR Attending Clinician Unavailabl e Renato MANAGER OF SELECTION AND ASSESSMENT, Skyler Douglas Attending Clinician [phone] LORENZO CHEATHAM Attending Clinician Unavail able Latonya, [facility] Nurse Attending Clinician Manuela Sanchez MD, Monica Alejandra Attending Clinician [phone] MARCIA OCAMPO Admitting Clinician Unavailable Payers Payer Name Policy Type Policy Number Effective Date Expirati on Date Source [place] [employer] [id number] 2023 00:00:00 Problems Condition Name Condition Details Condition Category Status Onset Date Resolution Date Last Treatment Date Treating Clinician Comments Source 39 weeks gestation of 39 weeks gestation of Disease Active 09-25 00:00: 00 [facility] Liveborn infant, of [place]kew , born in hospital by vaginal delivery Liveborn infant, of askew , born in hospital by vaginal delivery Disease Active 17 00:00: 00 [facility] 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 test for herpes simplex virus (HSV) antibody Disease Active -08 00:00: 00 [facility] GDM (gestation al diabetes mellitus), class A1 GDM (gestation al diabetes mellitus), class A1 Disease Active 04-19 00:00: 00 [facility] High-risk in third trimester High-risk in third trimester Disease Active 04-19 00:00: 00 [facility] Family history of congenital heart disease Family history of congenital heart disease Disease Active 04-19 00:00: 00 [facility] History of gestationa l diabetes mellitus (GDM) History of gestationa l diabetes mellitus (GDM) Disease Active 8-11 00:00: 00 [facility] Normal in first trimester Normal in first trimester Disease Active 7-14 00:00: 00 [facility] Nausea and vomiting during prior to 22 weeks gestation Nausea and vomiting during prior to 22 weeks gestation Disease Active 7-14 00:00: 00 [facility] History of anxiety and depression History of anxiety and depression Disease Active 4-13 00:00: 00 [facility] BMI 25.0-25.9, adult BMI 25.0-25.9, adult Disease Active 4-07 00:00: 00 [facility] BMI 25.0-25.9, adult BMI 25.0-25.9, adult Disease Active 4-07 00:00: 00 [facility] Nexplanon in place Nexplanon in place Disease Active 3-31 00:00: 00 [facility] Flu vaccine need Flu vaccine need Disease Active 3-31 00:00: 00 [facility] Internal thrombosed hemorrhoid s Internal thrombosed hemorrhoid s Disease Active 6- 00:00: 00 [facility] Chlamydia trachomati s infection of lower genitourin victorina sites Chlamydia trachomati s infection of lower genitourin victorina sites Disease Active 2018-09 2- 00:00: 00 [facility] Encounter for surveillan ce of implantabl e subdermal contracept giovanna Encounter for surveillan ce of implantabl e subdermal contracept giovanna Disease Active 2017-09 00:00: 00 [facility] Tobacco use disorder Tobacco use disorder Disease Active 2017-09 00:00: 00 [facility] Paronychia of finger of left hand Paronychia of finger of left hand Diagnosis Active [facility] 23 weeks gestation of 23 weeks gestation of Diagnosis Active [facility] Allergies, Adverse Reactions, Alerts Allergy Name Allergy Type Status Severity Reaction(s) Onset Date Inactive Date Treating Clinician Comments Source NO KNOWN ALLERGIE S Drug Class Active [facility] Social History Social Habit Start Date Stop Date Quantity Comments Source ASSERTION 2023-01-09 00:00:00 [facility] History of tobacco use 2007-10-04 00:00:00 Cigarette Smoker [facility] History SDOH Alcohol Frequency [facility] History SDOH Alcohol Std Drinks [facility] History SDOH Alcohol Binge [facility] Alcohol intake 2023-12-04 00:00:00 2023-12-04 00:00:00 Ex-drinker (finding) [facility] History of Social function 2023-11-06 00:00:00 2023-11-06 00:00:00 [facility] Alcohol Comment 2023-03-22 00:00:00 2023-03-22 00:00:00 qquit when fund out was [facility] Cigarettes smoked current (pack per day) - Reported 2023-03-22 00:00:00 2023-03-22 00:00:00 [facility] Cigarette pack-years 2023-03-22 00:00:00 2023-03-22 00:00:00 [facility] Tobacco use and exposure 2023-03-22 00:00:00 2023-03-22 00:00:00 Smokeless tobacco non-user [facility] Exposure to SARS-CoV-2 (event) 2022-12-10 00:00:00 2022-12-20 14:24:00 Not sure [facility] Sex Assigned At 1995 00:00:00 1995 00:00:00 [facility] Smoking Status Start Date Stop Date Source Smokes tobacco daily 2023-03-22 00:00:00 [facility] Medications Ordered Medication Name Filled Medication Name Start Date Stop Date Current Medication? Ordering Clinician Indication Dosage Frequency Signature (SIG) Comments Components Source sulfamethox azole-trime thoprim (BACTRIM DS) 800-160 mg per tablet 12-03 00:00: 12-07 04:59 :00 No [id number] 1{tbl} Take 1 tablet by mouth in the morning and 1 tablet in the evening. Do all this for 3 days. [facility] sulfamethox azole-trime thoprim (BACTRIM DS) 800-160 mg per tablet 12 00:00: 00 11-24 04:59 :00 No [id number] 1{tbl} Take 1 tablet by mouth in the morning and 1 tablet in the evening. Do all this for 5 days. [facility] cephALEXin 500 mg capsule 11-12 00:00: 00 11-18 00:00 :00 No [id number] 500mg Take 1 capsule by mouth 4 (four) times daily for 10 days. [facility] etonogestre L (NEXPLANON) implant 68 mg 00:15: 00 11-06 23:46 :00 No [id number] 68mg [facility] metoclopram nabila HCl (REGLAN) tablet 10 mg 09-26 20:15: 00 09-26 19:35 :00 No 10mg 10 mg, Oral, ONCE, 1 dose, On Sat09/26/23 at 1415, Routine [facility] PNV no.95/giancarlo us fum/folic ac ( ORAL) 09-26 07:35: 16 09-26 00:00 :00 No Take by mouth. [facility] rho(D) immune globulin (RHOGAM) syringe 300 mcg 09-26 06:03: 58 Yes 300ug 300 mcg, Intramuscu lar, ONCE, For 1 dose, Conditiona l, Routine [facility] witch Kamryn (TUCKS) 50 % topical pad 09-26 06:03: 53 Yes Topical, Q4HPRN, Starting on Kate 09/26/23 at 0003, Until Discontinu ed, Routine, rectal/hem orrhoidal pain [facility] HYDROcodone -acetaminop hen (NORCO 5) 5-325 mg tablet 1 tablet 09-26 06:03: 53 Yes 1{tbl} 1 tablet, Oral, Q6HPRN, Starting on Sat09/26/23 at 0003, Until Discontinu ed, Routine, Pain (scale 7-10) [facility] ibuprofen (IBU) tablet 600 mg 09-26 06:03: 53 Yes 600mg 600 mg, Oral, Q6HPRN, Starting on Sat09/26/23 at 0003, Until Discontinu ed, Routine, Pain (scale 4-6) [facility] acetaminoph en (TYLENOL) tablet 650 mg 09-26 06:03: 53 Yes 650mg 650 mg, Oral, Q6HPRN, Starting on Sat09/26/23 at 0003, Until Discontinu ed, Routine, Pain (scale 1-3) [facility] diphenhydrA MINE (BENADRYL) tablet 25 mg 09-26 06:03: 53 Yes 25mg 25 mg, Oral, Q6HPRN, Starting on Sat09/26/23 at 0003, Until Discontinu ed, Routine, Sleep, Itching [facility] ondansetron (ZOFRAN (PF)) injection 4 mg 09-26 06:03: 53 Yes 4mg 4 mg, Slow IV Push, Q8HPRN, Starting on Sat09/26/23 at 0003, Until Discontinu ed, Routine, Nausea and Vomiting (N/V) [facility] simethicone (GAS RELIEF (SIMETHICON E)) chewable tablet 160 mg 09-26 06:03: 53 Yes 160mg 160 mg, Oral, PC+HSPRN, Starting on Sat09/26/23 at 0003, Until Discontinu ed, Routine, Gas [facility] docusate (COLACE) capsule 200 mg 09-26 06:03: 53 Yes 200mg 200 mg, Oral, QDAILYPRN, Starting on Sat09/26/23 at 0003, Until Discontinu ed, Routine, Constipati on [facility] magnesium hydroxide (MILK OF MAGNESIA) 400 mg/5 mL suspension 30 mL 09-26 06:03: 53 Yes 30mL 30 mL, Oral, QDAILYPRN, Starting on Sat09/26/23 at 0003, Until Discontinu ed, Routine, Constipati on [facility] benzocaine- menthol (DERMOPLAST ) 20-0.5 % topical spray 09-26 06:03: 53 Yes Topical, PRN, Starting on Sat09/26/23 at 0003, Until Discontinu ed, Routine, Perineum discomfort [facility] vitamin w/FA tablet 09-26 00:00: 00 11-06 00:00 :00 No [id number] 1{tbl} Take 1 tablet by mouth in the morning. [facility] docusate 100 mg capsule 09-26 00:00: 00 11-06 00:00 :00 No [id number] 200mg Take 2 capsules by mouth once daily as needed for Constipati on. [facility] ferrous sulfate 325 mg (65 mg iron) tablet 09-26 00:00: 00 11-06 00:00 :00 No [id number] 325mg Take 1 tablet by mouth in the morning and 1 tablet in the evening. [facility] ibuprofen 600 mg tablet 09-26 00:00: 00 11-06 00:00 :00 No [id number] 600mg Take 1 tablet by mouth every 6 (six) hours as needed (Pain). Take with food or milk. [facility] PNV no.95/giancarlo us fum/folic ac ( ORAL) 09-25 23:18: 46 Yes Take by mouth. [facility] fentaNYL-ro pivacaine 2 mcg/mL-0.1 % (PF) in NS 200 mL epidural infusion RTU 09-25 16:57: 00 Yes Epidural, CONTINUOUS PRN, Starting on Sat09/25/23 at 1057, Until Discontinu ed, Routine, Intra-op [facility] lidocaine-e pinephrine (XYLOCAINE W/EPINEPHRI NE) 1.5 %-1:200,000 injection 09-25 16:49: 00 Yes Intraderma l, ONCE INTRA PROCEDURE, Starting on Sat09/25/23 at 1049, Until Discontinu ed, Routine, Intra-op [facility] acyclovir (ZOVIRAX) tablet 400 mg 09-25 14:00: 00 09-26 06:03 :57 No 400mg 400 mg, Oral, TID, First dose on Sat09/25/23 at 0800, Until Discontinu ed, BALTA [facility] lactated ringers IV infusion 500 mL 09-25 12:32: 53 09-26 06:03 :56 No 500mL at 999 mL/hr, 500 mL, IV Infusion, PRN - SEE INSTRUCTIO NS, Starting on Sat09/25/23 at 0632, Until Kate 09/26/23 at 0003, Routine [facility] FENTanyl PF (SUBLIMAZE (PF)) injection 100 mcg 09-25 12:32: 53 09-26 06:03 :57 No 100ug 100 mcg, Slow IV Push, Q1HPRN, Starting on Sat09/25/23 at 0632, Until Kaet 09/26/23 at 0003, Routine, contractio n pain without an epidural and SVE < 8 cm and Cat I strip [facility] oxytocin (PITOCIN) 30 units in NS 500 mL IV infusion 09-25 12:32: 53 09-26 06:03 :57 No 2mU/min at 2-40 mL/hr, IV Infusion, TITRATE, Starting on Sat09/25/23 at 0632, Until Kate 09/26/23 at 0003, BALTA [facility] D5W-LR IV infusion 1,000 mL 09-25 12:32: 53 09-26 06:03 :56 No 1000mL at 1-125 mL/hr, IV Infusion, TITRATE, Starting on Sat09/25/23 at 0632, Until Kate 09/26/23 at 0003, Routine [facility] PNV no.95/giancarlo us fum/folic ac ( ORAL) 09-20 14:40: 57 Yes Take by mouth. [facility] nirmatrelvi r-ritonavir (PAXLOVID) 300 mg (150 mg x 2)-100 mg tablet 2022-09 2- 00:00: 00 Yes 3{tbl} Take 3 tablets by mouth in the morning and 3 tablets in the evening. [facility] PNV no.95/giancarlo us fum/folic ac ( ORAL) 2022-09 2 13:12: 22 Yes Take by mouth. [facility] acyclovir 400 mg tablet 2022-09 2 00:00: 00 09-26 00:00 :00 No [id number] 400mg Take 1 tablet by mouth in the morning and 1 tablet at noon and 1 tablet in the evening. [facility] blood sugar diagnostic (BLOOD GLUCOSE TEST) strip 2022-09 0-31 00:00: 00 09-26 00:00 :00 No Check gluocose 4 times a day [facility] sulfamethox azole-trime thoprim (BACTRIM DS) 800-160 mg per tablet 9-08 00:00: 00 05-28 04:59 :00 No [id number] 1{tbl} Take 1 tablet by mouth in the morning and 1 tablet in the evening. Do all this for 10 days. [facility] cephALEXin (KEFLEX) 500 mg capsule 8-28 00:00: 00 05-14 04:59 :00 No [id number] 500mg Take 1 capsule by mouth in the morning and 1 capsule at noon and 1 capsule in the evening. Do all this for 7 days. [facility] Blood-Gluco se Meter Kit 03-27 00:00: 00 09-26 00:00 :00 No Check glucose 4 times a day. [facility] Lancets Misc 03-27 00:00: 00 09-26 00:00 :00 No Check glucose 4 times a day [facility] Alcohol Swabs (ALCOHOL PADS) PadM 03-27 00:00: 00 09-26 00:00 :00 No Apply to area(s) 4 (four) times daily. [facility] blood sugar diagnostic (BLOOD GLUCOSE TEST) strip 03-27 00:00: 00 07-09 00:00 :00 No Check gluocose 4 times a day [facility] PNV no.95/giancarlo us fum/folic ac ( ORAL) 03-22 09:00: 18 Yes Take by mouth. [facility] pyridoxine, VITAMIN B-6, (VITAMIN B-6) 25 mg tablet 03-22 00:00: 00 09-26 00:00 :00 No [id number] 25mg Take 1 tablet by mouth every 6 (six) hours as needed for Nausea and Vomiting (N/V). [facility] doxylamine (UNISOM, DOXYLAMINE, ) 25 mg tablet 03-22 00:00: 00 09-26 00:00 :00 No [id number] 25mg Take 1 tablet by mouth at bedtime as needed for Nausea and Vomiting (N/V). [facility] metoclopram nabila HCl 10 mg tablet 03-22 00:00: 00 09-26 00:00 :00 No [id number] 10mg Take 1 tablet by mouth every 6 (six) hours as needed for Nausea and Vomiting (N/V). [facility] ondansetron (ZOFRAN-ODT ) disintegrat ing tablet 4 mg 03-07 05:00: 00 03-07 03:55 :00 No 4mg 4 mg, Oral, ONCE, 1 dose, On Kate 03/07/23 at 0000, BALTA [facility] doxylamine- pyridoxine, vit B6, (DICLEGIS) 10-10 mg per tablet 03-06 00:00: 00 03-22 00:00 :00 No [id number] 1{tbl} Take 1 tablet by mouth 4 (four) times daily as needed for Nausea and Vomiting (N/V). [facility] No known medications 2021-09 13:50: 57 No No known medication s [facility] No known medications 12-14 09:03: 50 No [facility] Yes Florencio Mitchell 1 tablet [facility] Immunizations Ordered Immunization Name Filled Immunization Name Date Status Comments Source Influenza Virus Vaccine Quad .5 mL IM 6+ MO 2021-12-14 00:00:00 Completed [facility] Influenza Virus Vaccine Quad .5 mL IM 6+ MO 2021-12-14 00:00:00 Completed [facility] Influenza Virus Vaccine Quad .5 mL IM 6+ MO 2021-12-14 00:00:00 Completed [facility] Influenza Virus Vaccine Quad .5 mL IM 6+ MO 2021-12-14 00:00:00 Completed [facility] Influenza Virus Vaccine Quad .5 mL IM 6+ MO 2021-12-14 00:00:00 Completed [facility] Influenza Virus Vaccine Quad .5 mL IM 6+ MO 2021-12-14 00:00:00 Completed [facility] Influenza Virus Vaccine Quad .5 mL IM 6+ MO 2021-12-14 00:00:00 Completed [facility] Influenza Virus Vaccine Quad .5 mL IM 6+ MO 2021-12-14 00:00:00 Completed [facility] Influenza Virus Vaccine Quad .5 mL IM 6+ MO 2021-12-14 00:00:00 Completed [facility] Influenza Virus Vaccine Quad .5 mL IM 6+ MO (FLUZONE/FLULAVAL/FL UARIX) 2021-12-14 00:00:00 Completed [facility] Influenza Virus Vaccine Quad .5 mL IM 6+ MO (FLUZONE/FLULAVAL/FL UARIX) 2021-12-14 00:00:00 Completed [facility] Influenza Virus Vaccine Quad .5 mL IM 6+ MO 2021-12-14 00:00:00 Completed [facility] Influenza Virus Vaccine Quad .5 mL IM 6+ MO 2021-12-14 00:00:00 Completed [facility] Influenza Virus Vaccine Quad .5 mL IM 6+ MO 2021-12-14 00:00:00 Completed [facility] Influenza Virus Vaccine Quad .5 mL IM 6+ MO 2021-12-14 00:00:00 Completed [facility] Influenza Virus Vaccine Quad .5 mL IM 6+ MO 2021-12-14 00:00:00 Completed [facility] Influenza Virus Vaccine Quad .5 mL IM 6+ MO 2021-12-14 00:00:00 Completed [facility] Influenza Virus Vaccine Quad .5 mL IM 6+ MO 2021-12-14 00:00:00 Completed [facility] Influenza Virus Vaccine Quad .5 mL IM 6+ MO 2021-12-14 00:00:00 Completed [facility] Influenza Virus Vaccine Quad .5 mL IM 6+ MO 2021-12-14 00:00:00 Completed [facility] Influenza Virus Vaccine Quad .5 mL IM 6+ MO 2021-12-14 00:00:00 Completed [facility] Influenza Virus Vaccine Quad .5 mL IM 6+ MO 2021-12-14 00:00:00 Completed [facility] Influenza Virus Vaccine Quad .5 mL IM 6+ MO 2021-12-14 00:00:00 Completed [facility] Influenza Virus Vaccine Quad .5 mL IM 6+ MO 2021-12-14 00:00:00 Completed [facility] Influenza Virus Vaccine Quad .5 mL IM 6+ MO 2021-12-14 00:00:00 Completed [facility] HPV9 2020-12-07 00:00:00 Completed [facility] HPV9 2020-12-07 00:00:00 Completed [facility] HPV9 2020-12-07 00:00:00 Completed [facility] HPV9 2020-12-07 00:00:00 Completed [facility] HPV9 2020-12-07 00:00:00 Completed [facility] HPV9 2020-12-07 00:00:00 Completed [facility] HPV9 2020-12-07 00:00:00 Completed [facility] HPV9 2020-12-07 00:00:00 Completed [facility] HPV9 2020-12-07 00:00:00 Completed [facility] HPV9 2020-12-07 00:00:00 Completed [facility] HPV9 2020-12-07 00:00:00 Completed [facility] HPV9 2020-12-07 00:00:00 Completed [facility] HPV9 2020-12-07 00:00:00 Completed [facility] HPV9 2020-12-07 00:00:00 Completed [facility] HPV9 2020-12-07 00:00:00 Completed [facility] HPV9 2020-12-07 00:00:00 Completed [facility] HPV9 2020-12-07 00:00:00 Completed [facility] HPV9 2020-12-07 00:00:00 Completed [facility] HPV9 2020-12-07 00:00:00 Completed [facility] HPV9 2020-12-07 00:00:00 Completed [facility] HPV9 2020-12-07 00:00:00 Completed [facility] HPV9 2020-12-07 00:00:00 Completed [facility] HPV9 2020-12-07 00:00:00 Completed [facility] HPV9 2020-12-07 00:00:00 Completed [facility] HPV9 2020-12-07 00:00:00 Completed [facility] HPV9 2019-09-17 00:00:00 Completed [facility] HPV9 2019-09-17 00:00:00 Completed [facility] HPV9 2019-09-17 00:00:00 Completed [facility] HPV9 2019-09-17 00:00:00 Completed [facility] HPV9 2019-09-17 00:00:00 Completed [facility] HPV9 2019-09-17 00:00:00 Completed [facility] HPV9 2019-09-17 00:00:00 Completed [facility] HPV9 2019-09-17 00:00:00 Completed [facility] HPV9 2019-09-17 00:00:00 Completed [facility] HPV9 2019-09-17 00:00:00 Completed [facility] HPV9 2019-09-17 00:00:00 Completed [facility] HPV9 2019-09-17 00:00:00 Completed [facility] HPV9 2019-09-17 00:00:00 Completed [facility] HPV9 2019-09-17 00:00:00 Completed [facility] HPV9 2019-09-17 00:00:00 Completed [facility] HPV9 2019-09-17 00:00:00 Completed [facility] HPV9 2019-09-17 00:00:00 Completed [facility] HPV9 2019-09-17 00:00:00 Completed [facility] HPV9 2019-09-17 00:00:00 Completed [facility] HPV9 2019-09-17 00:00:00 Completed [facility] HPV9 2019-09-17 00:00:00 Completed [facility] HPV9 2019-09-17 00:00:00 Completed [facility] HPV9 2019-09-17 00:00:00 Completed [facility] HPV9 2019-09-17 00:00:00 Completed [facility] HPV9 2019-09-17 00:00:00 Completed [facility] HPV9 2019-08-05 00:00:00 Completed [facility] Influenza Virus Vaccine Quad .5 mL IM 6+ MO 2019-08-05 00:00:00 Completed [facility] HPV9 2019-08-05 00:00:00 Completed [facility] Influenza Virus Vaccine Quad .5 mL IM 6+ MO 2019-08-05 00:00:00 Completed [facility] HPV9 2019-08-05 00:00:00 Completed [facility] Influenza Virus Vaccine Quad .5 mL IM 6+ MO 2019-08-05 00:00:00 Completed [facility] HPV9 2019-08-05 00:00:00 Completed [facility] Influenza Virus Vaccine Quad .5 mL IM 6+ MO 2019-08-05 00:00:00 Completed [facility] HPV9 2019-08-05 00:00:00 Completed [facility] Influenza Virus Vaccine Quad .5 mL IM 6+ MO 2019-08-05 00:00:00 Completed [facility] HPV9 2019-08-05 00:00:00 Completed [facility] Influenza Virus Vaccine Quad .5 mL IM 6+ MO 2019-08-05 00:00:00 Completed [facility] HPV9 2019-08-05 00:00:00 Completed [facility] Influenza Virus Vaccine Quad .5 mL IM 6+ MO 2019-08-05 00:00:00 Completed [facility] HPV9 2019-08-05 00:00:00 Completed [facility] Influenza Virus Vaccine Quad .5 mL IM 6+ MO 2019-08-05 00:00:00 Completed [facility] HPV9 2019-08-05 00:00:00 Completed [facility] Influenza Virus Vaccine Quad .5 mL IM 6+ MO 2019-08-05 00:00:00 Completed [facility] HPV9 2019-08-05 00:00:00 Completed [facility] Influenza Virus Vaccine Quad .5 mL IM 6+ MO (FLUZONE/FLULAVAL/FL UARIX) 2019-08-05 00:00:00 Completed [facility] HPV9 2019-08-05 00:00:00 Completed [facility] Influenza Virus Vaccine Quad .5 mL IM 6+ MO (FLUZONE/FLULAVAL/FL UARIX) 2019-08-05 00:00:00 Completed [facility] HPV9 2019-08-05 00:00:00 Completed [facility] Influenza Virus Vaccine Quad .5 mL IM 6+ MO 2019-08-05 00:00:00 Completed [facility] HPV9 2019-08-05 00:00:00 Completed [facility] Influenza Virus Vaccine Quad .5 mL IM 6+ MO 2019-08-05 00:00:00 Completed [facility] HPV9 2019-08-05 00:00:00 Completed [facility] Influenza Virus Vaccine Quad .5 mL IM 6+ MO 2019-08-05 00:00:00 Completed [facility] HPV9 2019-08-05 00:00:00 Completed [facility] Influenza Virus Vaccine Quad .5 mL IM 6+ MO 2019-08-05 00:00:00 Completed [facility] HPV9 2019-08-05 00:00:00 Completed [facility] Influenza Virus Vaccine Quad .5 mL IM 6+ MO 2019-08-05 00:00:00 Completed [facility] HPV9 2019-08-05 00:00:00 [facility] [facility] Influ[facility] Virus Vaccine Quad .5 mL IM 6+ MO 2019-08-05 00:00:00 Completed [facility] HPV9 2019-08-05 00:00:00 Completed [facility] Influenza Virus Vaccine Quad .5 mL IM 6+ MO 2019-08-05 00:00:00 Completed [facility] HPV9 2019-08-05 00:00:00 Completed [facility] Influenza Virus Vaccine Quad .5 mL IM 6+ MO 2019-08-05 00:00:00 Completed [facility] HPV9 2019-08-05 00:00:00 Completed [facility] Influenza Virus Vaccine Quad .5 mL IM 6+ MO 2019-08-05 00:00:00 Completed [facility] HPV9 2019-08-05 00:00:00 Completed [facility] Influenza Virus Vaccine Quad .5 mL IM 6+ MO 2019-08-05 00:00:00 Completed [facility] HPV9 2019-08-05 00:00:00 Completed [facility] Influenza Virus Vaccine Quad .5 mL IM 6+ MO 2019-08-05 00:00:00 Completed [facility] HPV9 2019-08-05 00:00:00 Completed [facility] Influenza Virus Vaccine Quad .5 mL IM 6+ MO 2019-08-05 00:00:00 Completed [facility] HPV9 2019-08-05 00:00:00 Completed [facility] Influenza Virus Vaccine Quad .5 mL IM 6+ MO 2019-08-05 00:00:00 Completed [facility] HPV9 2019-08-05 00:00:00 Completed [facility] Influenza Virus Vaccine Quad .5 mL IM 6+ MO 2019-08-05 00:00:00 Completed [facility] TDAP 2018-05-08 00:00:00 Completed [facility] TDAP 2018-05-08 00:00:00 Completed [facility] TDAP 2018-05-08 00:00:00 Completed [facility] TDAP 2018-05-08 00:00:00 Completed [facility] TDAP 2018-05-08 00:00:00 Completed [facility] TDAP 2018-05-08 00:00:00 Completed [facility] TDAP 2018-05-08 00:00:00 Completed [facility] TDAP 2018-05-08 00:00:00 Completed [facility] TDAP 2018-05-08 00:00:00 Completed [facility] TDAP 2018-05-08 00:00:00 Completed [facility] TDAP 2018-05-08 00:00:00 Completed [facility] TDAP 2018-05-08 00:00:00 Completed [facility] TDAP 2018-05-08 00:00:00 Completed [facility] TDAP 2018-05-08 00:00:00 Completed [facility] TDAP 2018-05-08 00:00:00 Completed [facility] TDAP 2018-05-08 00:00:00 Completed [facility] TDAP 2018-05-08 00:00:00 Completed [facility] TDAP 2018-05-08 00:00:00 Completed [facility] TDAP 2018-05-08 00:00:00 Completed [facility] TDAP 2018-05-08 00:00:00 Completed [facility] TDAP 2018-05-08 00:00:00 Completed [facility] TDAP 2018-05-08 00:00:00 Completed [facility] TDAP 2018-05-08 00:00:00 Completed [facility] TDAP 2018-05-08 00:00:00 Completed [facility] TDAP 2018-05-08 00:00:00 Completed [facility] Varicella (varivax)(chicken pox) 2008-11-26 00:00:00 Completed [facility] Meningococcal Polysaccharide (groups A, C, Y and W-135) conjugate vaccine (MCV4P) 2008-11-26 00:00:00 Completed [facility] TDAP 2008-11-26 00:00:00 Completed [facility] Varicella (varivax)(chicken pox) 2008-11-26 00:00:00 Completed [facility] Meningococcal Polysaccharide (groups A, C, Y and W-135) conjugate vaccine (MCV4P) 2008-11-26 00:00:00 Completed [facility] TDAP 2008-11-26 00:00:00 Completed [facility] Varicella (varivax)(chicken pox) 2008-11-26 00:00:00 Completed [facility] Meningococcal Polysaccharide (groups A, C, Y and W-135) conjugate vaccine (MCV4P) 2008-11-26 00:00:00 Completed [facility] TDAP 2008-11-26 00:00:00 Completed [facility] Varicella (varivax)(chicken pox) 2008-11-26 00:00:00 Completed [facility] Meningococcal Polysaccharide (groups A, C, Y and W-135) conjugate vaccine (MCV4P) 2008-11-26 00:00:00 Completed [facility] TDAP 2008-11-26 00:00:00 Completed [facility] Varicella (varivax)(chicken pox) 2008-11-26 00:00:00 Completed [facility] Meningococcal Polysaccharide (groups A, C, Y and W-135) conjugate vaccine (MCV4P) 2008-11-26 00:00:00 Completed [facility] TDAP 2008-11-26 00:00:00 Completed [facility] Varicella (varivax)(chicken pox) 2008-11-26 00:00:00 Completed [facility] Meningococcal Polysaccharide (groups A, C, Y and W-135) conjugate vaccine (MCV4P) 2008-11-26 00:00:00 Completed [facility] TDAP 2008-11-26 00:00:00 Completed [facility] Varicella (varivax)(chicken pox) 2008-11-26 00:00:00 Completed [facility] Meningococcal Polysaccharide (groups A, C, Y and W-135) conjugate vaccine (MCV4P) 2008-11-26 00:00:00 Completed [facility] TDAP 2008-11-26 00:00:00 Completed [facility] Varicella (varivax)(chicken pox) 2008-11-26 00:00:00 Completed [facility] Meningococcal Polysaccharide (groups A, C, Y and W-135) conjugate vaccine (MCV4P) 2008-11-26 00:00:00 Completed [facility] TDAP 2008-11-26 00:00:00 Completed [facility] Varicella (varivax)(chicken pox) 2008-11-26 00:00:00 Completed [facility] Meningococcal Polysaccharide (groups A, C, Y and W-135) conjugate vaccine (MCV4P) 2008-11-26 00:00:00 Completed [facility] TDAP 2008-11-26 00:00:00 Completed [facility] Varicella (varivax)(chicken pox) 2008-11-26 00:00:00 Completed [facility] Meningococcal Polysaccharide (groups A, C, Y and W-135) conjugate vaccine (MCV4P) 2008-11-26 00:00:00 Completed [facility] TDAP 2008-11-26 00:00:00 Completed [facility] Varicella (varivax)(chicken pox) 2008-11-26 00:00:00 Completed [facility] Meningococcal Polysaccharide (groups A, C, Y and W-135) conjugate vaccine (MCV4P) 2008-11-26 00:00:00 Completed [facility] TDAP 2008-11-26 00:00:00 Completed [facility] Varicella (varivax)(chicken pox) 2008-11-26 00:00:00 Completed [facility] Meningococcal Polysaccharide (groups A, C, Y and W-135) conjugate vaccine (MCV4P) 2008-11-26 00:00:00 Completed [facility] TDAP 2008-11-26 00:00:00 Completed [facility] Varicella (varivax)(chicken pox) 2008-11-26 00:00:00 Completed [facility] Meningococcal Polysaccharide (groups A, C, Y and W-135) conjugate vaccine (MCV4P) 2008-11-26 00:00:00 Completed [facility] TDAP 2008-11-26 00:00:00 Completed [facility] Varicella (varivax)(chicken pox) 2008-11-26 00:00:00 Completed [facility] Meningococcal Polysaccharide (groups A, C, Y and W-135) conjugate vaccine (MCV4P) 2008-11-26 00:00:00 Completed [facility] TDAP 2008-11-26 00:00:00 Completed [facility] Varicella (varivax)(chicken pox) 2008-11-26 00:00:00 Completed [facility] Meningococcal Polysaccharide (groups A, C, Y and W-135) conjugate vaccine (MCV4P) 2008-11-26 00:00:00 Completed [facility] TDAP 2008-11-26 00:00:00 Completed [facility] Varicella (varivax)(chicken pox) 2008-11-26 00:00:00 Completed [facility] Meningococcal Polysaccharide (groups A, C, Y and W-135) conjugate vaccine (MCV4P) 2008-11-26 00:00:00 Completed [facility] TDAP 2008-11-26 00:00:00 Completed [facility] Varicella (varivax)(chicken pox) 2008-11-26 00:00:00 Completed [facility] Meningococcal Polysaccharide (groups A, C, Y and W-135) conjugate vaccine (MCV4P) 2008-11-26 00:00:00 Completed [facility] TDAP 2008-11-26 00:00:00 Completed [facility] Varicella (varivax)(chicken pox) 2008-11-26 00:00:00 Completed [facility] Meningococcal Polysaccharide (groups A, C, Y and W-135) conjugate vaccine (MCV4P) 2008-11-26 00:00:00 Completed [facility] TDAP 2008-11-26 00:00:00 Completed [facility] Varicella (varivax)(chicken pox) 2008-11-26 00:00:00 Completed [facility] Meningococcal Polysaccharide (groups A, C, Y and W-135) conjugate vaccine (MCV4P) 2008-11-26 00:00:00 Completed [facility] TDAP 2008-11-26 00:00:00 Completed [facility] Varicella (varivax)(chicken pox) 2008-11-26 00:00:00 Completed [facility] Meningococcal Polysaccharide (groups A, C, Y and W-135) conjugate vaccine (MCV4P) 2008-11-26 00:00:00 Completed [facility] TDAP 2008-11-26 00:00:00 Completed [facility] Varicella (varivax)(chicken pox) 2008-11-26 00:00:00 Completed [facility] Meningococcal Polysaccharide (groups A, C, Y and W-135) conjugate vaccine (MCV4P) 2008-11-26 00:00:00 Completed [facility] TDAP 2008-11-26 00:00:00 Completed [facility] Varicella (varivax)(chicken pox) 2008-11-26 00:00:00 Completed [facility] Meningococcal Polysaccharide (groups A, C, Y and W-135) conjugate vaccine (MCV4P) 2008-11-26 00:00:00 Completed [facility] TDAP 2008-11-26 00:00:00 Completed [facility] MMR 2001-02-04 00:00:00 Completed [facility] IPV 2001-02-04 00:00:00 Completed [facility] DTaP, Unspecified Formulation 2001-02-04 00:00:00 Completed [facility] MMR 2001-02-04 00:00:00 Completed [facility] IPV 2001-02-04 00:00:00 Completed [facility] DTaP, Unspecified Formulation 2001-02-04 00:00:00 Completed [facility] MMR 2001-02-04 00:00:00 Completed [facility] IPV 2001-02-04 00:00:00 Completed [facility] DTaP, Unspecified Formulation 2001-02-04 00:00:00 Completed [facility] MMR 2001-02-04 00:00:00 Completed [facility] IPV 2001-02-04 00:00:00 Completed [facility] DTaP, Unspecified Formulation 2001-02-04 00:00:00 Completed [facility] MMR 2001-02-04 00:00:00 Completed [facility] IPV 2001-02-04 00:00:00 Completed [facility] DTaP, Unspecified Formulation 2001-02-04 00:00:00 Completed [facility] MMR 2001-02-04 00:00:00 Completed [facility] IPV 2001-02-04 00:00:00 Completed [facility] DTaP, Unspecified Formulation 2001-02-04 00:00:00 Completed [facility] MMR 2001-02-04 00:00:00 Completed [facility] IPV 2001-02-04 00:00:00 Completed [facility] DTaP, Unspecified Formulation 2001-02-04 00:00:00 Completed [facility] MMR 2001-02-04 00:00:00 Completed [facility] IPV 2001-02-04 00:00:00 Completed [facility] DTaP, Unspecified Formulation 2001-02-04 00:00:00 Completed [facility] MMR 2001-02-04 00:00:00 Completed [facility] IPV 2001-02-04 00:00:00 Completed [facility] DTaP, Unspecified Formulation 2001-02-04 00:00:00 Completed [facility] MMR 2001-02-04 00:00:00 Completed [facility] IPV 2001-02-04 00:00:00 Completed [facility] DTaP, Unspecified Formulation 2001-02-04 00:00:00 Completed [facility] MMR 2001-02-04 00:00:00 Completed [facility] IPV 2001-02-04 00:00:00 Completed [facility] DTaP, Unspecified Formulation 2001-02-04 00:00:00 Completed [facility] MMR 2001-02-04 00:00:00 Completed [facility] IPV 2001-02-04 00:00:00 Completed [facility] DTaP, Unspecified Formulation 2001-02-04 00:00:00 Completed [facility] MMR 2001-02-04 00:00:00 Completed [facility] IPV 2001-02-04 00:00:00 Completed [facility] DTaP, Unspecified Formulation 2001-02-04 00:00:00 Completed [facility] MMR 2001-02-04 00:00:00 Completed [facility] IPV 2001-02-04 00:00:00 Completed [facility] DTaP, Unspecified Formulation 2001-02-04 00:00:00 Completed [facility] MMR 2001-02-04 00:00:00 Completed [facility] IPV 2001-02-04 00:00:00 Completed [facility] DTaP, Unspecified Formulation 2001-02-04 00:00:00 Completed [facility] MMR 2001-02-04 00:00:00 Completed [facility] IPV 2001-02-04 00:00:00 Completed [facility] DTaP, Unspecified Formulation 2001-02-04 00:00:00 Completed [facility] MMR 2001-02-04 00:00:00 Completed [facility] IPV 2001-02-04 00:00:00 Completed [facility] DTaP, Unspecified Formulation 2001-02-04 00:00:00 Completed [facility] MMR 2001-02-04 00:00:00 Completed [facility] IPV 2001-02-04 00:00:00 Completed [facility] DTaP, Unspecified Formulation 2001-02-04 00:00:00 Completed [facility] MMR 2001-02-04 00:00:00 Completed [facility] IPV 2001-02-04 00:00:00 Completed [facility] DTaP, Unspecified Formulation 2001-02-04 00:00:00 Completed [facility] MMR 2001-02-04 00:00:00 Completed [facility] IPV 2001-02-04 00:00:00 Completed [facility] DTaP, Unspecified Formulation 2001-02-04 00:00:00 Completed [facility] MMR 2001-02-04 00:00:00 Completed [facility] IPV 2001-02-04 00:00:00 Completed [facility] DTaP, Unspecified Formulation 2001-02-04 00:00:00 Completed [facility] MMR 2001-02-04 00:00:00 Completed [facility] IPV 2001-02-04 00:00:00 Completed [facility] DTaP, Unspecified Formulation 2001-02-04 00:00:00 Completed [facility] MMR 1998-07-29 00:00:00 Completed [facility] DPT/HIB 1998-07-29 00:00:00 Completed [facility] MMR 1998-07-29 00:00:00 Completed [facility] DPT/HIB 1998-07-29 00:00:00 Completed [facility] MMR 1998-07-29 00:00:00 Completed [facility] DPT/HIB 1998-07-29 00:00:00 Completed [facility] MMR 1998-07-29 00:00:00 Completed [facility] DPT/HIB 1998-07-29 00:00:00 Completed [facility] MMR 1998-07-29 00:00:00 Completed [facility] DPT/HIB 1998-07-29 00:00:00 Completed [facility] MMR 1998-07-29 00:00:00 Completed [facility] DPT/HIB 1998-07-29 00:00:00 Completed [facility] MMR 1998-07-29 00:00:00 Completed [facility] DPT/HIB 1998-07-29 00:00:00 Completed [facility] MMR 1998-07-29 00:00:00 Completed [facility] DPT/HIB 1998-07-29 00:00:00 Completed [facility] MMR 1998-07-29 00:00:00 Completed [facility] DPT/HIB 1998-07-29 00:00:00 Completed [facility] MMR 1998-07-29 00:00:00 Completed [facility] DPT/HIB 1998-07-29 00:00:00 Completed [facility] MMR 1998-07-29 00:00:00 Completed [facility] DPT/HIB 1998-07-29 00:00:00 Completed [facility] MMR 1998-07-29 00:00:00 Completed [facility] DPT/HIB 1998-07-29 00:00:00 Completed [facility] MMR 1998-07-29 00:00:00 Completed [facility] DPT/HIB 1998-07-29 00:00:00 Completed [facility] MMR 1998-07-29 00:00:00 Completed [facility] DPT/HIB 1998-07-29 00:00:00 Completed [facility] MMR 1998-07-29 00:00:00 Completed [facility] DPT/HIB 1998-07-29 00:00:00 Completed [facility] MMR 1998-07-29 00:00:00 Completed [facility] DPT/HIB 1998-07-29 00:00:00 Completed [facility] MMR 1998-07-29 00:00:00 Completed [facility] DPT/HIB 1998-07-29 00:00:00 Completed [facility] MMR 1998-07-29 00:00:00 Completed [facility] DPT/HIB 1998-07-29 00:00:00 Completed [facility] MMR 1998-07-29 00:00:00 Completed [facility] DPT/HIB 1998-07-29 00:00:00 Completed [facility] MMR 1998-07-29 00:00:00 Completed [facility] DPT/HIB 1998-07-29 00:00:00 Completed [facility] MMR 1998-07-29 00:00:00 Completed [facility] DPT/HIB 1998-07-29 00:00:00 Completed [facility] MMR 1998-07-29 00:00:00 Completed [facility] DPT/HIB 1998-07-29 00:00:00 Completed [facility] Poliovirus, Live, Oral, Trivalent 1998-02-04 00:00:00 Completed [facility] Varicella (varivax)(chicken pox) 1998-02-04 00:00:00 Completed [facility] Poliovirus, Live, Oral, Trivalent 1998-02-04 00:00:00 Completed [facility] Varicella (varivax)(chicken pox) 1998-02-04 00:00:00 Completed [facility] Poliovirus, Live, Oral, Trivalent 1998-02-04 00:00:00 Completed [facility] Varicella (varivax)(chicken pox) 1998-02-04 00:00:00 Completed [facility] Poliovirus, Live, Oral, Trivalent 1998-02-04 00:00:00 Completed [facility] Varicella (varivax)(chicken pox) 1998-02-04 00:00:00 Completed [facility] Poliovirus, Live, Oral, Trivalent 1998-02-04 00:00:00 Completed [facility] Varicella (varivax)(chicken pox) 1998-02-04 00:00:00 Completed [facility] Poliovirus, Live, Oral, Trivalent 1998-02-04 00:00:00 Completed [facility] Varicella (varivax)(chicken pox) 1998-02-04 00:00:00 Completed [facility] Poliovirus, Live, Oral, Trivalent 1998-02-04 00:00:00 Completed [facility] Varicella (varivax)(chicken pox) 1998-02-04 00:00:00 Completed [facility] Poliovirus, Live, Oral, Trivalent 1998-02-04 00:00:00 Completed [facility] Varicella (varivax)(chicken pox) 1998-02-04 00:00:00 Completed [facility] Poliovirus, Live, Oral, Trivalent 1998-02-04 00:00:00 Completed [facility] Varicella (varivax)(chicken pox) 1998-02-04 00:00:00 Completed [facility] Poliovirus, Live, Oral, Trivalent 1998-02-04 00:00:00 Completed [facility] Varicella (varivax)(chicken pox) 1998-02-04 00:00:00 Completed [facility] Poliovirus, Live, Oral, Trivalent 1998-02-04 00:00:00 Completed [facility] Varicella (varivax)(chicken pox) 1998-02-04 00:00:00 Completed [facility] Poliovirus, Live, Oral, Trivalent 1998-02-04 00:00:00 Completed [facility] Varicella (varivax)(chicken pox) 1998-02-04 00:00:00 Completed [facility] Poliovirus, Live, Oral, Trivalent 1998-02-04 00:00:00 Completed [facility] Varicella (varivax)(chicken pox) 1998-02-04 00:00:00 Completed [facility] Poliovirus, Live, Oral, Trivalent 1998-02-04 00:00:00 Completed [facility] Varicella (varivax)(chicken pox) 1998-02-04 00:00:00 Completed [facility] Poliovirus, Live, Oral, Trivalent 1998-02-04 00:00:00 Completed [facility] Varicella (varivax)(chicken pox) 1998-02-04 00:00:00 Completed [facility] Poliovirus, Live, Oral, Trivalent 1998-02-04 00:00:00 Completed [facility] Varicella (varivax)(chicken pox) 1998-02-04 00:00:00 Completed [facility] Poliovirus, Live, Oral, Trivalent 1998-02-04 00:00:00 Completed [facility] Varicella (varivax)(chicken pox) 1998-02-04 00:00:00 Completed [facility] Poliovirus, Live, Oral, Trivalent 1998-02-04 00:00:00 Completed [facility] Varicella (varivax)(chicken pox) 1998-02-04 00:00:00 Completed [facility] Poliovirus, Live, Oral, Trivalent 1998-02-04 00:00:00 Completed [facility] Varicella (varivax)(chicken pox) 1998-02-04 00:00:00 Completed [facility] Poliovirus, Live, Oral, Trivalent 1998-02-04 00:00:00 Completed [facility] Varicella (varivax)(chicken pox) 1998-02-04 00:00:00 Completed [facility] Poliovirus, Live, Oral, Trivalent 1998-02-04 00:00:00 Completed [facility] Varicella (varivax)(chicken pox) 1998-02-04 00:00:00 Completed [facility] Poliovirus, Live, Oral, Trivalent 1998-02-04 00:00:00 Completed [facility] Varicella (varivax)(chicken pox) 1998-02-04 00:00:00 Completed [facility] Hep B, Adol or Pedi Dosage 1997-10-28 00:00:00 Completed [facility] Hep B, Adol or Pedi Dosage 1997-10-28 00:00:00 Completed [facility] Hep B, Adol or Pedi Dosage 1997-10-28 00:00:00 Completed [facility] Hep B, Adol or Pedi Dosage 1997-10-28 00:00:00 Completed [facility] Hep B, Adol or Pedi Dosage 1997-10-28 00:00:00 Completed [facility] Hep B, Adol or Pedi Dosage 1997-10-28 00:00:00 Completed [facility] Hep B, Adol or Pedi Dosage 1997-10-28 00:00:00 Completed [facility] Hep B, Adol or Pedi Dosage 1997-10-28 00:00:00 Completed [facility] Hep B, Adol or Pedi Dosage 1997-10-28 00:00:00 Completed [facility] Hep B, Adol or Pedi Dosage 1997-10-28 00:00:00 Completed [facility] Hep B, Adol or Pedi Dosage 1997-10-28 00:00:00 Completed [facility] Hep B, Adol or Pedi Dosage 1997-10-28 00:00:00 Completed [facility] Hep B, Adol or Pedi Dosage 1997-10-28 00:00:00 Completed [facility] Hep B, Adol or Pedi Dosage 1997-10-28 00:00:00 Completed [facility] Hep B, Adol or Pedi Dosage 1997-10-28 00:00:00 Completed [facility] Hep B, Adol or Pedi Dosage 1997-10-28 00:00:00 Completed [facility] Hep B, Adol or Pedi Dosage 1997-10-28 00:00:00 Completed [facility] Hep B, Adol or Pedi Dosage 1997-10-28 00:00:00 Completed [facility] Hep B, Adol or Pedi Dosage 1997-10-28 00:00:00 Completed [facility] Hep B, Adol or Pedi Dosage 1997-10-28 00:00:00 Completed [facility] Hep B, Adol or Pedi Dosage 1997-10-28 00:00:00 Completed [facility] Hep B, Adol or Pedi Dosage 1997-10-28 00:00:00 Completed [facility] DTaP, Unspecified Formulation 1997-06-29 00:00:00 Completed [facility] Hib-HbOC 1997-06-29 00:00:00 Completed [facility] DTaP, Unspecified Formulation 1997-06-29 00:00:00 Completed [facility] Hib-HbOC 1997-06-29 00:00:00 Completed [facility] DTaP, Unspecified Formulation 1997-06-29 00:00:00 Completed [facility] Hib-HbOC 1997-06-29 00:00:00 Completed [facility] DTaP, Unspecified Formulation 1997-06-29 00:00:00 Completed [facility] Hib-HbOC 1997-06-29 00:00:00 Completed [facility] DTaP, Unspecified Formulation 1997-06-29 00:00:00 Completed [facility] Hib-HbOC 1997-06-29 00:00:00 Completed [facility] DTaP, Unspecified Formulation 1997-06-29 00:00:00 Completed [facility] Hib-HbOC 1997-06-29 00:00:00 Completed [facility] DTaP, Unspecified Formulation 1997-06-29 00:00:00 Completed [facility] Hib-HbOC 1997-06-29 00:00:00 Completed [facility] DTaP, Unspecified Formulation 1997-06-29 00:00:00 Completed [facility] Hib-HbOC 1997-06-29 00:00:00 Completed [facility] DTaP, Unspecified Formulation 1997-06-29 00:00:00 Completed [facility] Hib-HbOC 1997-06-29 00:00:00 Completed [facility] DTaP, Unspecified Formulation 1997-06-29 00:00:00 Completed [facility] Hib-HbOC 1997-06-29 00:00:00 Completed [facility] DTaP, Unspecified Formulation 1997-06-29 00:00:00 Completed [facility] Hib-HbOC 1997-06-29 00:00:00 Completed [facility] DTaP, Unspecified Formulation 1997-06-29 00:00:00 Completed [facility] Hib-HbOC 1997-06-29 00:00:00 Completed [facility] DTaP, Unspecified Formulation 1997-06-29 00:00:00 Completed [facility] Hib-HbOC 1997-06-29 00:00:00 Completed [facility] DTaP, Unspecified Formulation 1997-06-29 00:00:00 Completed [facility] Hib-HbOC 1997-06-29 00:00:00 Completed [facility] DTaP, Unspecified Formulation 1997-06-29 00:00:00 Completed [facility] Hib-HbOC 1997-06-29 00:00:00 Completed [facility] DTaP, Unspecified Formulation 1997-06-29 00:00:00 Completed [facility] Hib-HbOC 1997-06-29 00:00:00 Completed [facility] DTaP, Unspecified Formulation 1997-06-29 00:00:00 Completed [facility] Hib-HbOC 1997-06-29 00:00:00 Completed [facility] DTaP, Unspecified Formulation 1997-06-29 00:00:00 Completed [facility] Hib-HbOC 1997-06-29 00:00:00 Completed [facility] DTaP, Unspecified Formulation 1997-06-29 00:00:00 Completed [facility] Hib-HbOC 1997-06-29 00:00:00 Completed [facility] DTaP, Unspecified Formulation 1997-06-29 00:00:00 Completed [facility] Hib-HbOC 1997-06-29 00:00:00 Completed [facility] DTaP, Unspecified Formulation 1997-06-29 00:00:00 Completed [facility] Hib-HbOC 1997-06-29 00:00:00 Completed [facility] DTaP, Unspecified Formulation 1997-06-29 00:00:00 Completed [facility] Hib-HbOC 1997-06-29 00:00:00 Completed [facility] Hib-HbOC 1997-04-19 00:00:00 Completed [facility] IPV 1997-04-19 00:00:00 Completed [facility] DTaP, Unspecified Formulation 1997-04-19 00:00:00 Completed [facility] Hib-HbOC 1997-04-19 00:00:00 Completed [facility] IPV 1997-04-19 00:00:00 Completed [facility] DTaP, Unspecified Formulation 1997-04-19 00:00:00 Completed [facility] Hib-HbOC 1997-04-19 00:00:00 Completed [facility] IPV 1997-04-19 00:00:00 Completed [facility] DTaP, Unspecified Formulation 1997-04-19 00:00:00 Completed [facility] Hib-HbOC 1997-04-19 00:00:00 Completed [facility] IPV 1997-04-19 00:00:00 Completed [facility] DTaP, Unspecified Formulation 1997-04-19 00:00:00 Completed [facility] Hib-HbOC 1997-04-19 00:00:00 Completed [facility] IPV 1997-04-19 00:00:00 Completed [facility] DTaP, Unspecified Formulation 1997-04-19 00:00:00 Completed [facility] Hib-HbOC 1997-04-19 00:00:00 Completed [facility] IPV 1997-04-19 00:00:00 Completed [facility] DTaP, Unspecified Formulation 1997-04-19 00:00:00 Completed [facility] Hib-HbOC 1997-04-19 00:00:00 Completed [facility] IPV 1997-04-19 00:00:00 Completed [facility] DTaP, Unspecified Formulation 1997-04-19 00:00:00 Completed [facility] Hib-HbOC 1997-04-19 00:00:00 Completed [facility] IPV 1997-04-19 00:00:00 Completed [facility] DTaP, Unspecified Formulation 1997-04-19 00:00:00 Completed [facility] Hib-HbOC 1997-04-19 00:00:00 Completed [facility] IPV 1997-04-19 00:00:00 Completed [facility] DTaP, Unspecified Formulation 1997-04-19 00:00:00 Completed [facility] Hib-HbOC 1997-04-19 00:00:00 Completed [facility] IPV 1997-04-19 00:00:00 Completed [facility] DTaP, Unspecified Formulation 1997-04-19 00:00:00 Completed [facility] Hib-HbOC 1997-04-19 00:00:00 Completed [facility] IPV 1997-04-19 00:00:00 Completed [facility] DTaP, Unspecified Formulation 1997-04-19 00:00:00 Completed [facility] Hib-HbOC 1997-04-19 00:00:00 Completed [facility] IPV 1997-04-19 00:00:00 Completed [facility] DTaP, Unspecified Formulation 1997-04-19 00:00:00 Completed [facility] Hib-HbOC 1997-04-19 00:00:00 Completed [facility] IPV 1997-04-19 00:00:00 Completed [facility] DTaP, Unspecified Formulation 1997-04-19 00:00:00 Completed [facility] Hib-HbOC 1997-04-19 00:00:00 Completed [facility] IPV 1997-04-19 00:00:00 Completed [facility] DTaP, Unspecified Formulation 1997-04-19 00:00:00 Completed [facility] Hib-HbOC 1997-04-19 00:00:00 Completed [facility] IPV 1997-04-19 00:00:00 Completed [facility] DTaP, Unspecified Formulation 1997-04-19 00:00:00 Completed [facility] Hib-HbOC 1997-04-19 00:00:00 Completed [facility] IPV 1997-04-19 00:00:00 Completed [facility] DTaP, Unspecified Formulation 1997-04-19 00:00:00 Completed [facility] Hib-HbOC 1997-04-19 00:00:00 Completed [facility] IPV 1997-04-19 00:00:00 Completed [facility] DTaP, Unspecified Formulation 1997-04-19 00:00:00 Completed [facility] Hib-HbOC 1997-04-19 00:00:00 Completed [facility] IPV 1997-04-19 00:00:00 Completed [facility] DTaP, Unspecified Formulation 1997-04-19 00:00:00 Completed [facility] Hib-HbOC 1997-04-19 00:00:00 Completed [facility] IPV 1997-04-19 00:00:00 Completed [facility] DTaP, Unspecified Formulation 1997-04-19 00:00:00 Completed [facility] Hib-HbOC 1997-04-19 00:00:00 Completed [facility] IPV 1997-04-19 00:00:00 Completed [facility] DTaP, Unspecified Formulation 1997-04-19 00:00:00 Completed [facility] Hib-HbOC 1997-04-19 00:00:00 Completed [facility] IPV 1997-04-19 00:00:00 Completed [facility] DTaP, Unspecified Formulation 1997-04-19 00:00:00 Completed [facility] Hib-HbOC 1997-04-19 00:00:00 Completed [facility] IPV 1997-04-19 00:00:00 Completed [facility] DTaP, Unspecified Formulation 1997-04-19 00:00:00 Completed [facility] Hib-HbOC 1997-02-10 00:00:00 Completed [facility] IPV 1997-02-10 00:00:00 Completed [facility] DTaP, Unspecified Formulation 1997-02-10 00:00:00 Completed [facility] Hib-HbOC 1997-02-10 00:00:00 Completed [facility] IPV 1997-02-10 00:00:00 Completed [facility] DTaP, Unspecified Formulation 1997-02-10 00:00:00 Completed [facility] Hib-HbOC 1997-02-10 00:00:00 Completed [facility] IPV 1997-02-10 00:00:00 Completed [facility] DTaP, Unspecified Formulation 1997-02-10 00:00:00 Completed [facility] Hib-HbOC 1997-02-10 00:00:00 Completed [facility] IPV 1997-02-10 00:00:00 Completed [facility] DTaP, Unspecified Formulation 1997-02-10 00:00:00 Completed [facility] Hib-HbOC 1997-02-10 00:00:00 Completed [facility] IPV 1997-02-10 00:00:00 Completed [facility] DTaP, Unspecified Formulation 1997-02-10 00:00:00 Completed [facility] Hib-HbOC 1997-02-10 00:00:00 Completed [facility] IPV 1997-02-10 00:00:00 Completed [facility] DTaP, Unspecified Formulation 1997-02-10 00:00:00 Completed [facility] Hib-HbOC 1997-02-10 00:00:00 Completed [facility] IPV 1997-02-10 00:00:00 Completed [facility] DTaP, Unspecified Formulation 1997-02-10 00:00:00 Completed [facility] Hib-HbOC 1997-02-10 00:00:00 Completed [facility] IPV 1997-02-10 00:00:00 Completed [facility] DTaP, Unspecified Formulation 1997-02-10 00:00:00 Completed [facility] Hib-HbOC 1997-02-10 00:00:00 Completed [facility] IPV 1997-02-10 00:00:00 Completed [facility] DTaP, Unspecified Formulation 1997-02-10 00:00:00 Completed [facility] Hib-HbOC 1997-02-10 00:00:00 Completed [facility] IPV 1997-02-10 00:00:00 Completed [facility] DTaP, Unspecified Formulation 1997-02-10 00:00:00 Completed [facility] Hib-HbOC 1997-02-10 00:00:00 Completed [facility] IPV 1997-02-10 00:00:00 Completed [facility] DTaP, Unspecified Formulation 1997-02-10 00:00:00 Completed [facility] Hib-HbOC 1997-02-10 00:00:00 Completed [facility] IPV 1997-02-10 00:00:00 Completed [facility] DTaP, Unspecified Formulation 1997-02-10 00:00:00 Completed [facility] Hib-HbOC 1997-02-10 00:00:00 Completed [facility] IPV 1997-02-10 00:00:00 Completed [facility] DTaP, Unspecified Formulation 1997-02-10 00:00:00 Completed [facility] Hib-HbOC 1997-02-10 00:00:00 Completed [facility] IPV 1997-02-10 00:00:00 Completed [facility] DTaP, Unspecified Formulation 1997-02-10 00:00:00 Completed [facility] Hib-HbOC 1997-02-10 00:00:00 Completed [facility] IPV 1997-02-10 00:00:00 Completed [facility] DTaP, Unspecified Formulation 1997-02-10 00:00:00 Completed [facility] Hib-HbOC 1997-02-10 00:00:00 Completed [facility] IPV 1997-02-10 00:00:00 Completed [facility] DTaP, Unspecified Formulation 1997-02-10 00:00:00 Completed [facility] Hib-HbOC 1997-02-10 00:00:00 Completed [facility] IPV 1997-02-10 00:00:00 Completed [facility] DTaP, Unspecified Formulation 1997-02-10 00:00:00 Completed [facility] Hib-HbOC 1997-02-10 00:00:00 Completed [facility] IPV 1997-02-10 00:00:00 Completed [facility] DTaP, Unspecified Formulation 1997-02-10 00:00:00 Completed [facility] Hib-HbOC 1997-02-10 00:00:00 Completed [facility] IPV 1997-02-10 00:00:00 Completed [facility] DTaP, Unspecified Formulation 1997-02-10 00:00:00 Completed [facility] Hib-HbOC 1997-02-10 00:00:00 Completed [facility] IPV 1997-02-10 00:00:00 Completed [facility] DTaP, Unspecified Formulation 1997-02-10 00:00:00 Completed [facility] Hib-HbOC 1997-02-10 00:00:00 Completed [facility] IPV 1997-02-10 00:00:00 Completed [facility] DTaP, Unspecified Formulation 1997-02-10 00:00:00 Completed [facility] Hib-HbOC 1997-02-10 00:00:00 Completed [facility] IPV 1997-02-10 00:00:00 Completed [facility] DTaP, Unspecified Formulation 1997-02-10 00:00:00 Completed [facility] Hep B, Adol or Pedi Dosage 1997-01-19 00:00:00 Completed [facility] Hep B, Adol or Pedi Dosage 1997-01-19 00:00:00 Completed [facility] Hep B, Adol or Pedi Dosage 1997-01-19 00:00:00 Completed [facility] Hep B, Adol or Pedi Dosage 1997-01-19 00:00:00 Completed [facility] Hep B, Adol or Pedi Dosage 1997-01-19 00:00:00 Completed [facility] Hep B, Adol or Pedi Dosage 1997-01-19 00:00:00 Completed [facility] Hep B, Adol or Pedi Dosage 1997-01-19 00:00:00 Completed [facility] Hep B, Adol or Pedi Dosage 1997-01-19 00:00:00 Completed [facility] Hep B, Adol or Pedi Dosage 1997-01-19 00:00:00 Completed [facility] Hep B, Adol or Pedi Dosage 1997-01-19 00:00:00 Completed [facility] Hep B, Adol or Pedi Dosage 1997-01-19 00:00:00 Completed [facility] Hep B, Adol or Pedi Dosage 1997-01-19 00:00:00 Completed [facility] Hep B, Adol or Pedi Dosage 1997-01-19 00:00:00 Completed [facility] Hep B, Adol or Pedi Dosage 1997-01-19 00:00:00 Completed [facility] Hep B, Adol or Pedi Dosage 1997-01-19 00:00:00 Completed [facility] Hep B, Adol or Pedi Dosage 1997-01-19 00:00:00 Completed [facility] Hep B, Adol or Pedi Dosage 1997-01-19 00:00:00 Completed [facility] Hep B, Adol or Pedi Dosage 1997-01-19 00:00:00 Completed [facility] Hep B, Adol or Pedi Dosage 1997-01-19 00:00:00 Completed [facility] Hep B, Adol or Pedi Dosage 1997-01-19 00:00:00 Completed [facility] Hep B, Adol or Pedi Dosage 1997-01-19 00:00:00 Completed [facility] Hep B, Adol or Pedi Dosage 1997-01-19 00:00:00 Completed [facility] Hep B, Adol or Pedi Dosage 1996 00:00:00 Completed [facility] Hep B, Adol or Pedi Dosage 1996 00:00:00 Completed [facility] Hep B, Adol or Pedi Dosage 1996 00:00:00 Completed [facility] Hep B, Adol or Pedi Dosage 1996 00:00:00 Completed [facility] Hep B, Adol or Pedi Dosage 1996 00:00:00 Completed [facility] Hep B, Adol or Pedi Dosage 1996 00:00:00 Completed [facility] Hep B, Adol or Pedi Dosage 1996 00:00:00 Completed [facility] Hep B, Adol or Pedi Dosage 1996 00:00:00 Completed [facility] Hep B, Adol or Pedi Dosage 1996 00:00:00 Completed [facility] Hep B, Adol or Pedi Dosage 1996 00:00:00 Completed [facility] Hep B, Adol or Pedi Dosage 1996 00:00:00 Completed [facility] Hep B, Adol or Pedi Dosage 1996 00:00:00 Completed [facility] Hep B, Adol or Pedi Dosage 1996 00:00:00 Completed [facility] Hep B, Adol or Pedi Dosage 1996 00:00:00 Completed [facility] Hep B, Adol or Pedi Dosage 1996 00:00:00 Completed [facility] Hep B, Adol or Pedi Dosage 1996 00:00:00 Completed [facility] Hep B, Adol or Pedi Dosage 1996 00:00:00 Completed [facility] Hep B, Adol or Pedi Dosage 1996 00:00:00 Completed [facility] Hep B, Adol or Pedi Dosage 1996 00:00:00 Completed [facility] Hep B, Adol or Pedi Dosage 1996 00:00:00 Completed [facility] Hep B, Adol or Pedi Dosage 1996 00:00:00 Completed [facility] Hep B, Adol or Pedi Dosage 1996 00:00:00 Completed [facility] TDAP Unknown Completed [facility] HPV9 Unknown Completed [facility] Influenza Virus Vaccine Quad .5 mL IM 6+ MO (FLUZONE/FLULAVAL/FL UARIX) Unknown Completed [facility] DTaP, Unspecified Formulation Unknown Completed [facility] DPT/HIB Unknown Completed [facility] Hep B, Adol or Pedi Dosage Unknown Completed [facility] Hib-HbOC Unknown Completed [facility] Meningococcal Polysaccharide (groups A, C, Y and W-135) conjugate vaccine (MCV4P) Unknown Completed [facility] MMR Unknown Completed [facility] IPV Unknown Completed [facility] Poliovirus, Live, Oral, Trivalent Unknown Completed [facility] Varicella (varivax)(chicken pox) Unknown Completed [facility] TDAP Unknown Completed [facility] HPV9 Unknown Completed [facility] Influenza Virus Vaccine Quad .5 mL IM 6+ MO (FLUZONE/FLULAVAL/FL UARIX) Unknown Completed [facility] DTaP, Unspecified Formulation Unknown Completed [facility] DPT/HIB Unknown Completed [facility] Hep B, Adol or Pedi Dosage Unknown Completed [facility] Hib-HbOC Unknown Completed [facility] Meningococcal Polysaccharide (groups A, C, Y and W-135) conjugate vaccine (MCV4P) Unknown Completed [facility] MMR Unknown Completed [facility] IPV Unknown Completed [facility] Poliovirus, Live, Oral, Trivalent Unknown Completed [facility] Varicella (varivax)(chicken pox) Unknown Completed [facility] TDAP Unknown Completed [facility] HPV9 Unknown Completed [facility] Influenza Virus Vaccine Quad .5 mL IM 6+ MO (FLUZONE/FLULAVAL/FL UARIX) Unknown Completed [facility] DTaP, Unspecified Formulation Unknown Completed [facility] DPT/HIB Unknown Completed [facility] Hep B, Adol or Pedi Dosage Unknown Completed [facility] Hib-HbOC Unknown Completed [facility] Meningococcal Polysaccharide (groups A, C, Y and W-135) conjugate vaccine (MCV4P) Unknown Completed [facility] MMR Unknown Completed [facility] IPV Unknown Completed [facility] Poliovirus, Live, Oral, Trivalent Unknown Completed [facility] Varicella (varivax)(chicken pox) Unknown Completed [facility] TDAP Unknown Completed [facility] HPV9 Unknown Completed [facility] Influenza Virus Vaccine Quad .5 mL IM 6+ MO (FLUZONE/FLULAVAL/FL UARIX) Unknown Completed [facility] DTaP, Unspecified Formulation Unknown Completed [facility] DPT/HIB Unknown Completed [facility] Hep B, Adol or Pedi Dosage Unknown Completed [facility] Hib-HbOC Unknown Completed [facility] Meningococcal Polysaccharide (groups A, C, Y and W-135) conjugate vaccine (MCV4P) Unknown Completed [facility] MMR Unknown Completed [facility] IPV Unknown Completed [facility] Poliovirus, Live, Oral, Trivalent Unknown Completed [facility] Varicella (varivax)(chicken pox) Unknown Completed [facility] TDAP Unknown Completed [facility] HPV9 Unknown Completed [facility] Influenza Virus Vaccine Quad .5 mL IM 6+ MO (FLUZONE/FLULAVAL/FL UARIX) Unknown Completed [facility] DTaP, Unspecified Formulation Unknown Completed [facility] DPT/HIB Unknown Completed [facility] Hep B, Adol or Pedi Dosage Unknown Completed [facility] Hib-HbOC Unknown Completed [facility] Meningococcal Polysaccharide (groups A, C, Y and W-135) conjugate vaccine (MCV4P) Unknown Completed [facility] MMR Unknown Completed [facility] IPV Unknown Completed [facility] Poliovirus, Live, Oral, Trivalent Unknown Completed [facility] Varicella (varivax)(chicken pox) Unknown Completed [facility] TDAP Unknown Completed [facility] HPV9 Unknown Completed [facility] Influenza Virus Vaccine Quad .5 mL IM 6+ MO (FLUZONE/FLULAVAL/FL UARIX) Unknown Completed [facility] DTaP, Unspecified Formulation Unknown Completed [facility] DPT/HIB Unknown Completed [facility] Hep B, Adol or Pedi Dosage Unknown Completed [facility] Hib-HbOC Unknown Completed [facility] Meningococcal Polysaccharide (groups A, C, Y and W-135) conjugate vaccine (MCV4P) Unknown Completed [facility] MMR Unknown Completed [facility] IPV Unknown Completed [facility] Poliovirus, Live, Oral, Trivalent Unknown Completed [facility] Varicella (varivax)(chicken pox) Unknown Completed [facility] TDAP Unknown Completed [facility] HPV9 Unknown Completed [facility] Influenza Virus Vaccine Quad .5 mL IM 6+ MO (FLUZONE/FLULAVAL/FL UARIX) Unknown Completed [facility] DTaP, Unspecified Formulation Unknown Completed [facility] DPT/HIB Unknown Completed [facility] Hep B, Adol or Pedi Dosage Unknown Completed [facility] Hib-HbOC Unknown Completed [facility] Meningococcal Polysaccharide (groups A, C, Y and W-135) conjugate vaccine (MCV4P) Unknown Completed [facility] MMR Unknown Completed [facility] IPV Unknown Completed [facility] Poliovirus, Live, Oral, Trivalent Unknown Completed [facility] Varicella (varivax)(chicken pox) Unknown Completed [facility] TDAP Unknown Completed [facility] HPV9 Unknown Completed [facility] Influenza Virus Vaccine Quad .5 mL IM 6+ MO (FLUZONE/FLULAVAL/FL UARIX) Unknown Completed [facility] DTaP, Unspecified Formulation Unknown Completed [facility] DPT/HIB Unknown Completed [facility] Hep B, Adol or Pedi Dosage Unknown Completed [facility] Hib-HbOC Unknown Completed [facility] Meningococcal Polysaccharide (groups A, C, Y and W-135) conjugate vaccine (MCV4P) Unknown Completed [facility] MMR Unknown Completed [facility] IPV Unknown Completed [facility] Poliovirus, Live, Oral, Trivalent Unknown Completed [facility] Varicella (varivax)(chicken pox) Unknown Completed [facility] TDAP Unknown Completed [facility] HPV9 Unknown Completed [facility] Influenza Virus Vaccine Quad .5 mL IM 6+ MO (FLUZONE/FLULAVAL/FL UARIX) Unknown Completed [facility] DTaP, Unspecified Formulation Unknown Completed [facility] DPT/HIB Unknown Completed [facility] Hep B, Adol or Pedi Dosage Unknown Completed [facility] Hib-HbOC Unknown Completed [facility] Meningococcal Polysaccharide (groups A, C, Y and W-135) conjugate vaccine (MCV4P) Unknown Completed [facility] MMR Unknown Completed [facility] IPV Unknown Completed [facility] Poliovirus, Live, Oral, Trivalent Unknown Completed [facility] Varicella (varivax)(chicken pox) Unknown Completed [facility] TDAP Unknown Completed [facility] HPV9 Unknown Completed [facility] Influenza Virus Vaccine Quad .5 mL IM 6+ MO (FLUZONE/FLULAVAL/FL UARIX) Unknown Completed [facility] DTaP, Unspecified Formulation Unknown Completed [facility] DPT/HIB Unknown Completed [facility] Hep B, Adol or Pedi Dosage Unknown Completed [facility] Hib-HbOC Unknown Completed [facility] Meningococcal Polysaccharide (groups A, C, Y and W-135) conjugate vaccine (MCV4P) Unknown Completed [facility] MMR Unknown Completed [facility] IPV Unknown Completed [facility] Poliovirus, Live, Oral, Trivalent Unknown Completed [facility] Varicella (varivax)(chicken pox) Unknown Completed [facility] TDAP Unknown Completed [facility] HPV9 Unknown Completed [facility] Influenza Virus Vaccine Quad .5 mL IM 6+ MO (FLUZONE/FLULAVAL/FL UARIX) Unknown Completed [facility] DTaP, Unspecified Formulation Unknown Completed [facility] DPT/HIB Unknown Completed [facility] Hep B, Adol or Pedi Dosage Unknown Completed [facility] Hib-HbOC Unknown Completed [facility] Meningococcal Polysaccharide (groups A, C, Y and W-135) conjugate vaccine (MCV4P) Unknown Completed [facility] MMR Unknown Completed [facility] IPV Unknown Completed [facility] Poliovirus, Live, Oral, Trivalent Unknown Completed [facility] Varicella (varivax)(chicken pox) Unknown Completed [facility] TDAP Unknown Completed [facility] HPV9 Unknown Completed [facility] Influenza Virus Vaccine Quad .5 mL IM 6+ MO (FLUZONE/FLULAVAL/FL UARIX) Unknown Completed [facility] DTaP, Unspecified Formulation Unknown Completed [facility] DPT/HIB Unknown Completed [facility] Hep B, Adol or Pedi Dosage Unknown Completed [facility] Hib-HbOC Unknown Completed [facility] Meningococcal Polysaccharide (groups A, C, Y and W-135) conjugate vaccine (MCV4P) Unknown Completed [facility] MMR Unknown Completed [facility] IPV Unknown Completed [facility] Poliovirus, Live, Oral, Trivalent Unknown Completed [facility] Varicella (varivax)(chicken pox) Unknown Completed [facility] TDAP Unknown Completed [facility] HPV9 Unknown Completed [facility] Influenza Virus Vaccine Quad .5 mL IM 6+ MO (FLUZONE/FLULAVAL/FL UARIX) Unknown Completed [facility] DTaP, Unspecified Formulation Unknown Completed [facility] DPT/HIB Unknown Completed [facility] Hep B, Adol or Pedi Dosage Unknown Completed [facility] Hib-HbOC Unknown Completed [facility] Meningococcal Polysaccharide (groups A, C, Y and W-135) conjugate vaccine (MCV4P) Unknown Completed [facility] MMR Unknown Completed [facility] IPV Unknown Completed [facility] Poliovirus, Live, Oral, Trivalent Unknown Completed [facility] Varicella (varivax)(chicken pox) Unknown Completed [facility] TDAP Unknown Completed [facility] HPV9 Unknown Completed [facility] Influenza Virus Vaccine Quad .5 mL IM 6+ MO (FLUZONE/FLULAVAL/FL UARIX) Unknown Completed [facility] DTaP, Unspecified Formulation Unknown Completed [facility] DPT/HIB Unknown Completed [facility] Hep B, Adol or Pedi Dosage Unknown Completed [facility] Hib-HbOC Unknown Completed [facility] Meningococcal Polysaccharide (groups A, C, Y and W-135) conjugate vaccine (MCV4P) Unknown Completed [facility] MMR Unknown Completed [facility] IPV Unknown Completed [facility] Poliovirus, Live, Oral, Trivalent Unknown Completed [facility] Varicella (varivax)(chicken pox) Unknown Completed [facility] TDAP Unknown Completed [facility] HPV9 Unknown Completed [facility] Influenza Virus Vaccine Quad .5 mL IM 6+ MO (FLUZONE/FLULAVAL/FL UARIX) Unknown Completed [facility] DTaP, Unspecified Formulation Unknown Completed [facility] DPT/HIB Unknown Completed [facility] Hep B, Adol or Pedi Dosage Unknown Completed [facility] Hib-HbOC Unknown Completed [facility] Meningococcal Polysaccharide (groups A, C, Y and W-135) conjugate vaccine (MCV4P) Unknown Completed [facility] MMR Unknown Completed [facility] IPV Unknown Completed [facility] Poliovirus, Live, Oral, Trivalent Unknown Completed [facility] Varicella (varivax)(chicken pox) Unknown Completed [facility] DPT/HIB Unknown Completed [facility] Meningococcal Polysaccharide (groups A, C, Y and W-135) conjugate vaccine (MCV4P) Unknown Completed [facility] Poliovirus, Live, Oral, Trivalent Unknown Completed [facility] TDAP Unknown Completed [facility] HPV9 Unknown Completed [facility] Influenza Virus Vaccine Quad .5 mL IM 6+ MO (FLUZONE/FLULAVAL/FL UARIX) Unknown Completed [facility] DTaP, Unspecified Formulation Unknown Completed [facility] Hep B, Adol or Pedi Dosage Unknown Completed [facility] Hib-HbOC Unknown Completed [facility] MMR Unknown Completed [facility] IPV Unknown Completed [facility] Varicella (varivax)(chicken pox) Unknown Completed [facility] TDAP Unknown Completed [facility] HPV9 Unknown Completed [facility] Influenza Virus Vaccine Quad .5 mL IM 6+ MO (FLUZONE/FLULAVAL/FL UARIX) Unknown Completed [facility] DTaP, Unspecified Formulation Unknown Completed [facility] DPT/HIB Unknown Completed [facility] Hep B, Adol or Pedi Dosage Unknown Completed [facility] Hib-HbOC Unknown Completed [facility] Meningococcal Polysaccharide (groups A, C, Y and W-135) conjugate vaccine (MCV4P) Unknown Completed [facility] MMR Unknown Completed [facility] IPV Unknown Completed [facility] Poliovirus, Live, Oral, Trivalent Unknown Completed [facility] Varicella (varivax)(chicken pox) Unknown Completed [facility] TDAP Unknown Completed [facility] HPV9 Unknown Completed [facility] Influenza Virus Vaccine Quad .5 mL IM 6+ MO (FLUZONE/FLULAVAL/FL UARIX) Unknown Completed [facility] DTaP, Unspecified Formulation Unknown Completed [facility] DPT/HIB Unknown Completed [facility] Hep B, Adol or Pedi Dosage Unknown Completed [facility] Hib-HbOC Unknown Completed [facility] Meningococcal Polysaccharide (groups A, C, Y and W-135) conjugate vaccine (MCV4P) Unknown Completed [facility] MMR Unknown Completed [facility] IPV Unknown Completed [facility] Poliovirus, Live, Oral, Trivalent Unknown Completed [facility] Varicella (varivax)(chicken pox) Unknown Completed [facility] TDAP Unknown Completed [facility] HPV9 Unknown Completed [facility] Influenza Virus Vaccine Quad .5 mL IM 6+ MO (FLUZONE/FLULAVAL/FL UARIX) Unknown Completed [facility] DTaP, Unspecified Formulation Unknown Completed [facility] DPT/HIB Unknown Completed [facility] Hep B, Adol or Pedi Dosage Unknown Completed [facility] Hib-HbOC Unknown Completed [facility] Meningococcal Polysaccharide (groups A, C, Y and W-135) conjugate vaccine (MCV4P) Unknown Completed [facility] MMR Unknown Completed [facility] IPV Unknown Completed [facility] Poliovirus, Live, Oral, Trivalent Unknown Completed [facility] Varicella (varivax)(chicken pox) Unknown Completed [facility] TDAP Unknown Completed [facility] HPV9 Unknown Completed [facility] Influenza Virus Vaccine Quad .5 mL IM 6+ MO (FLUZONE/FLULAVAL/FL UARIX) Unknown Completed [facility] DTaP, Unspecified Formulation Unknown Completed [facility] DPT/HIB Unknown Completed [facility] Hep B, Adol or Pedi Dosage Unknown Completed [facility] Hib-HbOC Unknown Completed [facility] Meningococcal Polysaccharide (groups A, C, Y and W-135) conjugate vaccine (MCV4P) Unknown Completed [facility] MMR Unknown Completed [facility] IPV Unknown Completed [facility] Poliovirus, Live, Oral, Trivalent Unknown Completed [facility] Varicella (varivax)(chicken pox) Unknown Completed [facility] DPT/HIB Unknown Completed [facility] Meningococcal Polysaccharide (groups A, C, Y and W-135) conjugate vaccine (MCV4P) Unknown Completed [facility] Poliovirus, Live, Oral, Trivalent Unknown Completed [facility] TDAP Unknown Completed [facility] HPV9 Unknown Completed [facility] Influenza Virus Vaccine Quad .5 mL IM 6+ MO (FLUZONE/FLULAVAL/FL UARIX) Unknown Completed [facility] DTaP, Unspecified Formulation Unknown Completed [facility] Hep B, Adol or Pedi Dosage Unknown Completed [facility] Hib-HbOC Unknown Completed [facility] MMR Unknown Completed [facility] IPV Unknown Completed [facility] Varicella (varivax)(chicken pox) Unknown Completed [facility] DTaP, Unspecified Formulation Unknown Completed [facility] DPT/HIB Unknown Completed [facility] Hep B, Adol or Pedi Dosage Unknown Completed [facility] Hib-HbOC Unknown Completed [facility] Meningococcal Polysaccharide (groups A, C, Y and W-135) conjugate vaccine (MCV4P) Unknown Completed [facility] MMR Unknown Completed [facility] IPV Unknown Completed [facility] Poliovirus, Live, Oral, Trivalent Unknown Completed [facility] Varicella (varivax)(chicken pox) Unknown Completed [facility] TDAP Unknown Completed [facility] HPV9 Unknown Completed [facility] Influenza Virus Vaccine Quad .5 mL IM 6+ MO (FLUZONE/FLULAVAL/FL UARIX) Unknown Completed [facility] TDAP Unknown Completed [facility] HPV9 Unknown Completed [facility] Influenza Virus Vaccine Quad .5 mL IM 6+ MO (FLUZONE/FLULAVAL/FL UARIX) Unknown Completed [facility] DTaP, Unspecified Formulation Unknown Completed [facility] DPT/HIB Unknown Completed [facility] Hep B, Adol or Pedi Dosage Unknown Completed [facility] Hib-HbOC Unknown Completed [facility] Meningococcal Polysaccharide (groups A, C, Y and W-135) conjugate vaccine (MCV4P) Unknown Completed [facility] MMR Unknown Completed [facility] IPV Unknown Completed [facility] Poliovirus, Live, Oral, Trivalent Unknown Completed [facility] Varicella (varivax)(chicken pox) Unknown Completed [facility] TDAP Unknown Completed [facility] HPV9 Unknown Completed [facility] Influenza Virus Vaccine Quad .5 mL IM 6+ MO (FLUZONE/FLULAVAL/FL UARIX) Unknown Completed [facility] DTaP, Unspecified Formulation Unknown Completed [facility] DPT/HIB Unknown Completed [facility] Hep B, Adol or Pedi Dosage Unknown Completed [facility] Hib-HbOC Unknown Completed [facility] Meningococcal Polysaccharide (groups A, C, Y and W-135) conjugate vaccine (MCV4P) Unknown Completed [facility] MMR Unknown Completed [facility] IPV Unknown Completed [facility] Poliovirus, Live, Oral, Trivalent Unknown Completed [facility] Varicella (varivax)(chicken pox) Unknown Completed [facility] TDAP Unknown Completed [facility] HPV9 Unknown Completed [facility] Influenza Virus Vaccine Quad .5 mL IM 6+ MO (FLUZONE/FLULAVAL/FL UARIX) Unknown Completed [facility] DTaP, Unspecified Formulation Unknown Completed [facility] DPT/HIB Unknown Completed [facility] Hep B, Adol or Pedi Dosage Unknown Completed [facility] Hib-HbOC Unknown Completed [facility] Meningococcal Polysaccharide (groups A, C, Y and W-135) conjugate vaccine (MCV4P) Unknown Completed [facility] MMR Unknown Completed [facility] IPV Unknown Completed [facility] Poliovirus, Live, Oral, Trivalent Unknown Completed [facility] Varicella (varivax)(chicken pox) Unknown Completed [facility] DPT/HIB Unknown Completed [facility] Meningococcal Polysaccharide (groups A, C, Y and W-135) conjugate vaccine (MCV4P) Unknown Completed [facility] Poliovirus, Live, Oral, Trivalent Unknown Completed [facility] TDAP Unknown Completed [facility] HPV9 Unknown Completed [facility] Influenza Virus Vaccine Quad .5 mL IM 6+ MO (FLUZONE/FLULAVAL/FL UARIX) Unknown Completed [facility] DTaP, Unspecified Formulation Unknown Completed [facility] Hep B, Adol or Pedi Dosage Unknown Completed [facility] Hib-HbOC Unknown Completed [facility] MMR Unknown Completed [facility] IPV Unknown Completed [facility] Varicella (varivax)(chicken pox) Unknown Completed [facility] Vital Signs Vital Name Observation Time Observation Value Comments S ource Systolic blood pressure 2023-12-04 19:21:00 108 mm[Hg] [facility] Diastolic blood pressure 2023-12-04 19:21:00 69 mm[Hg] [facility] Heart rate 2023-12-04 19:21:00 75 /min [facility] Body temperature 2023-12-04 19:21:00 36.78 Mariella [facility] Respiratory rate 2023-12-04 19:21:00 18 /min [facility] Body height 2023-12-04 19:21:00 167.6 cm [facility] Body weight 2023-12-04 19:21:00 73.483 kg [facility] BMI 2023-12-04 19:21:00 26.15 kg/m2 [facility] Systolic blood pressure 2023-11-13 22:30:00 130 mm[Hg] [facility] Diastolic blood pressure 2023-11-13 22:30:00 80 mm[Hg] [facility] Heart rate 2023-11-13 22:30:00 93 /min [facility] Body temperature 2023-11-13 22:30:00 36.11 Mariella [facility] Body height 2023-11-13 22:30:00 170.2 cm [facility] Body weight 2023-11-13 22:30:00 72.303 kg [facility] BMI 2023-11-13 22:30:00 24.97 kg/m2 [facility] Systolic blood pressure 2023-11-06 21:08:00 110 mm[Hg] [facility] Diastolic blood pressure 2023-11-06 21:08:00 68 mm[Hg] [facility] Heart rate 2023-11-06 21:08:00 75 /min [facility] Body temperature 2023-11-06 21:08:00 36.61 Mariella [facility] Respiratory rate 2023-11-06 21:08:00 17 /min [facility] Body height 2023-11-06 21:08:[address] [facility] Body weight 2023-11-06 21:08:00 75.116 kg [facility] BMI 2023-11-06 21:08:00 25.94 kg/m2 [facility] Systolic blood pressure 2023-10-25 19:24:00 106 mm[Hg] [facility] Diastolic blood pressure 2023-10-25 19:24:00 71 mm[Hg] [facility] Heart rate 2023-10-25 19:24:00 87 /min [facility] Body temperature 2023-10-25 19:24:00 36.72 Mariella [facility] Respiratory rate 2023-10-25 19:24:00 16 /min [facility] Body height 2023-10-25 19:24:00 170.2 cm [facility] Body weight 2023-10-25 19:24:00 75.297 kg [facility] BMI 2023-10-25 19:24:00 26.00 kg/m2 [facility] Systolic blood pressure 2023-09-27 15:00:00 106 mm[Hg] [facility] Diastolic blood pressure 2023-09-27 15:00:00 64 mm[Hg] [facility] Heart rate 2023-09-27 15:00:00 61 /min [facility] Body temperature 2023-09-27 15:00:00 36.33 Mariella [facility] Respiratory rate 2023-09-27 15:00:00 18 /min [facility] Oxygen saturation in Arterial blood by Pulse oximetry 2023-09-27 15:00:00 98 /min [facility] Body height 2023-09-25 14:00:[address] [facility] Body weight 2023-09-25 14:00:00 80.74 kg [facility] BMI 2023-09-25 14:00:00 27.88 kg/m2 [facility] Systolic blood pressure 2023-09-20 20:39:00 104 mm[Hg] [facility] Diastolic blood pressure 2023-09-20 20:39:00 66 mm[Hg] [facility] Heart rate 2023-09-20 20:39:00 89 /min [facility] Respiratory rate 2023-09-20 20:39:00 18 /min [facility] Body height 2023-09-20 20:39:[address] [facility] Body weight 2023-09-20 20:39:00 80.287 kg [facility] BMI 2023-09-20 20:39:00 27.72 kg/m2 [facility] Systolic blood pressure 2023-09-13 16:29:00 107 mm[Hg] [facility] Diastolic blood pressure 2023-09-13 16:29:00 72 mm[Hg] [facility] Heart rate 2023-09-13 16:29:00 98 /min [facility] Respiratory rate 2023-09-13 16:29:00 18 /min [facility] Body height 2023-09-13 16:29:[address] [facility] Body weight 2023-09-13 16:29:00 77.565 kg [facility] BMI 2023-09-13 16:29:00 26.78 kg/m2 [facility] Systolic blood pressure 2023-08-23 19:08:00 126 mm[Hg] [facility] Diastolic blood pressure 2023-08-23 19:08:00 84 mm[Hg] [facility] Heart rate 2023-08-23 19:08:00 99 /min [facility] Respiratory rate 2023-08-23 19:08:00 18 /min [facility] Body height 2023-08-23 19:08:00 170.2 cm [facility] Body weight 2023-08-23 19[facility]08:00 [facility] 2023-08-23 19:08:00 26.94 kg/m2 [facility] Systolic blood pressure 2023-08-09 18:33:00 120 mm[Hg] [place] [facility] Diastolic blood pressure 2023-08-09 18:33:00 70 mm[Hg] [facility] Heart rate 2023-08-09 18:33:00 71 /min [facility] Respiratory rate 2023-08-09 18:33:00 18 /min [facility] Body height 2023-08-09 18:33:00 170.2 cm [facility] Body weight 2023-08-09 18:33:00 78.926 [facility] 2023-08-09 18:33:00 27.25 kg/m2 [facility] Systolic blood pressure 2023-07-19 17:08:00 126 mm[Hg] [facility] Diastolic blood pressure 2023-07-19 17:08:00 82 mm[Hg] [facility] Heart rate 2023-07-19 17:08:00 94 /min [facility] Respiratory rate 2023-07-19 17:08:00 18 /min [facility] Body height 2023-07-19 17:08:00 170.2 cm Univ [facility] Body weight 2023-07-19 17:08:00 79.379 [facility] 2023-07-19 17:08:00 27.41 kg/m2 [facility] Systolic blood pressure 2023-06-14 16:26:00 114 mm[Hg] [facility] Diastolic blood pressure 2023-06-14 16:26:00 75 mm[Hg] [facility] Heart rate 2023-06-14 16:26:00 75 /min [facility] Respiratory rate 2023-06-14 16:26:00 18 /min [facility] Body height 2023-06-14 16:26:00 [facility].2 [facility] Body weight 2023-06-14 16:26:00 75.297 [facility] BMI 2023-06-14 16:26:00 26.00 kg/m2 [facility] Systolic blood pressure 2023-05-17 16:06:00 119 mm[Hg] [facility] Diastolic blood pressure 2023-05-17 16:06:00 73 mm[Hg] [facility] Heart rate 2023-05-17 16:06:00 116 /min [facility] 2023-05-17 16:06:00 18 /min [facility] Body height 2023-05-17 16:06:00 [facility].2 [facility] Body weight 2023-05-17 16:06:[address] [facility] BMI 2023-05-17 16:06:00 25.22 kg/m2 [facility] Systolic blood pressure 2023-05-07 01:50:00 115 mm[Hg] [facility] Diastolic blood pressure 2023-05-07 01:50:00 70 mm[Hg] [facility] Heart rate 2023-05-07 01:50:00 93 /min [facility] Body temperature 2023-05-07 01:50:00 37.28 Mariella [facility] Respiratory rate 2023-05-07 01:50:00 16 /min [facility] Body height 2023-05-07 01:50:00 [facility].2 [facility] Body weight 2023-05-07 01:50:00 68.947 kg [facility] BMI 2023-05-07 01:50:00 23.81 kg/m2 [facility] Oxygen saturation in Arterial blood by Pulse oximetry 2023-05-07 01:50:00 96 /min [facility] Systolic blood pressure 2023-04-19 15:37:00 125 mm[Hg] [facility] Diastolic blood pressure 2023-04-19 15:37:00 81 mm[Hg] [facility] Heart rate 2023-04-19 15:37:00 97 /min [facility] Body height 2023-04-19 15:37:[address] [facility] Body weight 2023-04-19 15:37:00 71.487 kg [facility] BMI 2023-04-19 15:37:00 24.68 kg/m2 [facility] Systolic blood pressure 2023-03-29 19:30:00 113 mm[Hg] [facility] Diastolic blood pressure 2023-03-29 19:30:00 69 mm[Hg] [facility] Heart rate 2023-03-29 19:30:00 88 /min [facility] Respiratory rate 2023-03-29 19:30:00 18 /min [facility] Body weight 2023-03-29 19:30:[address] [facility] BMI 2023-03-29 19:30:00 23.96 kg/m2 [facility] Systolic blood pressure 2023-03-22 13:59:00 111 mm[Hg] [facility] Diastolic blood pressure 2023-03-22 13:59:00 73 mm[Hg] [facility] Heart rate 2023-03-22 13:59:00 73 /min [facility] Body temperature 2023-03-22 13:59:00 36.56 Mariella [facility] Body height 2023-03-22 13:59:[address] [facility] Body weight 2023-03-22 13:59:00 70.897 kg [facility] BMI 2023-03-22 13:59:00 24.48 kg/m2 [facility] Systolic blood pressure 2023-03-07 02:54:00 125 mm[Hg] [facility] Diastolic blood pressure 2023-03-07 02:54:00 84 mm[Hg] [facility] Heart rate 2023-03-07 02:54:00 107 /min [facility] Body temperature 2023-03-07 02:54:00 37 Mariella [facility] Respiratory rate 2023-03-07 02:54:00 18 /min [facility] Body height 2023-03-07 02:54:[address] [facility] Body weight 2023-03-07 02:54:[address] [facility] BMI 2023-03-07 02:54:00 25.84 kg/m2 [facility] Oxygen saturation in Arterial blood by Pulse oximetry 2023-03-07 02:54:00 97 /min [facility] Systolic blood pressure 2022-12-20 19:25:00 121 mm[Hg] [facility] Diastolic blood pressure 2022-12-20 19:25:00 73 mm[Hg] [facility] Heart rate 2022-12-20 19:25:00 91 /min [facility] Body temperature 2022-12-20 19:25:00 37 Mariella [facility] Respiratory rate 2022-12-20 19:25:00 18 /min [facility] Body height 2022-12-20 19:25:00 170.2 cm [facility] Body weight 2022-12-20 19:25:00 72.15 kg [facility] BMI 2022-12-20 19:25:00 24.91 kg/m2 [facility] Systolic blood pressure 2022-07-18 19:19:00 129 mm[Hg] [facility] Diastolic blood pressure 2022-07-18 19:19:00 87 mm[Hg] [facility] Heart rate 2022-07-18 19:19:00 101 /min [facility] Body temperature 2022-07-18 19:19:00 36.67 Mariella [facility] Respiratory rate 2022-07-18 19:19:00 18 /min [facility] Body height 2022-07-18 19:19:[address] [facility] Body weight 2022-07-18 19:19:00 73.71 kg [facility] BMI 2022-07-18 19:19:00 25.45 kg/m2 [facility] Systolic blood pressure 2021-12-14 13:58:00 115 mm[Hg] [facility] Diastolic blood pressure 2021-12-14 13:58:00 65 mm[Hg] [facility] Heart rate 2021-12-14 13:58:00 82 /min [facility] Body temperature 2021-12-14 13:58:00 36.5 Mariella [facility] Respiratory rate 2021-12-14 13:58:00 16 /min [facility] Body height 2021-12-14 13:58:00 170.2 cm [facility] Body weight 2021-12-14 13:58:00 74.39 kg [facility] BMI 2021-12-14 13:58:00 25.69 kg/m2 [facility] Procedures Procedure Date / Time Performed Performing Clinician Source CONSENT FOR CONTRACEPTION 2023-11-06 06:01:00 Doctor Unassigned, [place] [facility] POCT TEST 2023-11-06 00:00:00 Damaris [facility] CBC WITH DIFF 2023-09-26 10:41[facility] 2023-09-26 03:25:00 Damaris [facility] POCT GLUCOSE (AUTOMATED) 2023-09-26 00:48:00 Damaris [facility] POCT GLUCOSE (AUTOMATED) 2023-09-25 19:41:00 Damaris [facility] CENTRAL NEURAXIAL BLOCK 2023-09-25 16:25:00 Sachin Garza [facility] POCT GLUCOSE (AUTOMATED) 2023-09-25 15:03:00 Marcia Ocampo [facility] HB INDIRECT ANTIGLOBULIN TEST 2023-09-25 14:08:00 Damaris [facility] RHO (D) IMMUNE GLOBULIN 2023-09-25 14:08:00 OcampoMarcia [facility] CBC WITH DIFF 2023-09-24 18:37:00 DamarisMarcia [facility] ASSIGNMENT OF BENEFITS 2023-09-24 18:12:12 Docto r Unassigned, [place] [facility] CONSENT/REFUSAL FOR DIAGNOSIS AND TREATMENT 2023-09-24 18:11:48 Doctor Unassigned, [place] [facility] PHYSICIAN ORDERS 2023-09-20 06:01:00 Doctor Unas signed, [place] [facility] CBC WITH DIFF 2023-09-13 17:53:00 DamarisMarcia Bryce [facility] DSU PRE-OP 2023-09-13 06:01:00 Doctor Unass igned, [place] [facility] POCT URINALYSIS W/O SPECIFIC GRAVITY 2023-09-13 00:00:00 [facility]IMESTER ULTRASOUND 2023-09-12 20:34:00 [facility] POCT URINALYSIS W/O SPECIFIC GRAVITY 2023-08-23 00:00:00 Damaris [facility] TDAP VACCINE, >11 YRS, IM 2023-08-09 18:28:34 Damaris [facility] SECOND AND THIRD TRIMESTER ULTRASOUND 2023-08-09 15:44:00 [facility] POCT [facility]INALYSIS W/O SPECIFIC GRAVITY 2023-08-09 00:00:00 Damaris Marcia [facility] POCT URINALYSIS W/O SPECIFIC GRAVITY 2023-07-19 00:00:00 Damaris [facility] POCT URINALYSIS W/O SPECIFIC GRAVITY 2023-06-14 00:00:00 Damaris [facility] SECOND AND THIRD TRIMESTER ULTRASOUND 2023-05-29 17:25:00 Damaris [facility] SECOND AND THIRD TRIMESTER ULTRASOUND 2023-05-29 17:10:00 Damaris [facility] POCT URINALYSIS W/O SPECIFIC GRAVITY 2023-05-17 00:00:00 Ocampo, [facility] ASSIGNMENT OF BENEFITS 2023-05-07 03:00:45 Jayant r Unassigned, [place] [facility] LA INCISION & DRAINAGE ABSCESS COMPLICATED/MULTIPLE 2023-05-07 02:54:06 Atul Leal [facility] CONSENT/REFUSAL FOR DIAGNOSIS AND TREATMENT 2023-05-07 01:48:05 Doctor Unassigned, [place] [facility] POCT URINALYSIS W/O SPECIFIC GRAVITY 2023-04-19 00:00:00 Marcia Ocampo [facility] GLYCOSYLATED HEMOGLOBIN (A1C) 2023-03-27 16:12:00 Marcia Ocampo [facility] <14 WEEKS US LIMITED 2023-03-22 15:38:34 Marcia Ocampo [facility] SCANNED LAB RESULTS 2023-03-22 05:01:00 Doctor Leisa pierce, [place] [facility] POCT URINALYSIS W/O SPECIFIC GRAVITY 2023-03-22 00:00:00 Marcia Ocampo [facility] URINALYSIS 2023-03-07 03:08:00 Ramirez Sanchez [facility] POCT TEST 2023-03-07 03:07:00 Ramirez Sanchez [facility] NOTICE OF PRIVACY PRACTICES 2023-03-07 02:49:46 Doctor Unassigned, [place] [facility] CONSENT/REFUSAL FOR DIAGNOSIS AND TREATMENT 2023-03-07 02:47:26 Doctor Unassigned, [place] [facility] ASSIGNMENT OF BENEFITS 2022-12-20 19:06:39 Docoseas r Unassigned, [place] [facility] FLU VACC ([phone]), 6+ MONTHS, IM, QUAD 2021-12-14 14:41:01 German Back [facility] Encounters Start Date/Time End Date/Time Encounter Type Admission Type Attending Clinicians Care Facility Care Department Encounter ID Source 2021-07-06 18:46:07 Emergency [facility] [id number] [facility] 2024-11-03 09:36:03 2024-11-03 09:36:03 Outpatient ABEL ROMAN [id number] John Beckman 2024-01-31 08:00:00 2024-01-31 08:00:00 Outpatient R MARCIA OCAMPO [facility] [id number] [facility] 2023-12-20 11:30:00 2023-12-20 11:30:00 Outpatient R CARITO PICHARDO [facility] [id number] [facility] 2023-12-18 13:30:00 2023-12-18 13:30:00 Outpatient R RAFICARITO FRANCO [facility] [id number] [facility] 2023-12-04 14:00:00 2023-12-04 14:37:15 Outpatient R RAFICARITO FRANCO [facility] [id number] [facility] 2023-12-04 14:00:00 2023-12-04 14:37:15 Office Visit MelvinaCarito [facility] 1.2.840.114 350.1.13.10 4.2.7.2.686 [id number] 134 [id number] [facility] 2023-12-03 14:00:00 2023-12-03 14:00:00 Outpatient R CARITO PICHARDO [facility] [id number] [facility] 2023-11-29 13:45:00 2023-11-29 13:45:00 Outpatient R MARCIA OCAMPO [facility] [id number] [facility] 2023-11-19 00:00:00 2023-11-19 00:00:00 Refill RafiCarito franco [facility] 1.2.840.114 350.1.13.10 4.2.7.2.686 [id number] [facility] 2023-11-13 16:00:00 2023-11-13 16:44:43 Outpatient MARCIA STEWART [facility] [id number] [facility] 2023-11-13 16:00:00 2023-11-13 16:44:43 Office Visit Mar[facility]camp[facility] BU[facility] 1.2.840.114 350.1.13.10 4.2.7.2.686 [id number] [facility] 2023-11-13 00:00:00 2023-11-13 00:00:00 Telephone Marcia Ocampo [facility] BUILDING 1.2.840.114 350.1.13.10 4.2.7.2.686 [id number] [facility] 2023-11-06 15:15:00 2023-11-06 15:36:47 Outpatient R MARCIA OCAMPO [facility] [id number] [facility] 2023-11-06 15:15:00 2023-11-06 15:36:47 Office Visit Marcia Ocampo [facility] 1.2.840.114 350.1.13.10 4.2.7.2.686 [id number] [facility] 2023-11-06 00:00:00 2023-11-06 00:00:00 Orders Only Doctor Unassigned, [place] [facility] 1.2.840.114 350.1.13.10 4.2.7.2.686 [id number] [facility] 2023-11-01 00:00:00 2023-11-01 00:00:00 Telephone DamarisMarcia [facility] 1.2.840.114 350.1.13.10 4.2.7.2.686 [id number] [facility] 2023-10-25 13:15:00 2023-10-25 13:41:03 Outpatient R MARCIA OCAMPO [facility] [id number] [facility] 2023-10-25 13:15:00 2023-10-25 13:41:03 Routine Visit OcampoMarcia [facility] 1.2.840.114 350.1.13.10 4.2.7.2.686 [id number] [facility] 2023-10-11 15:15:00 2023-10-11 15:15:00 Outpatient R MARCIA OCAMPO [facility] [id number] [facility] 2023-09-25 06:27:00 2023-09-27 10:00:00 Inpatient P MARCIA OCAMPO [facility] [id number] [facility] 2023-09-25 06:27:00 2023-09-27 10:00:00 Hospital Encounter Marcia Ocampo [facility] 1.2.840.114 350.1.13.10 4.2.7.2.686 [id number] [facility] 2023-09-25 10:31:00 2023-09-26 02:10:00 Anesthesia Event Sachin Garcia, [facility] 1.2.840.114 350.1.13.10 4.2.7.2.686 [id number] [facility] 2023-09-24 12:15:00 2023-09-24 12:30:00 Woods Laborer Visit Pob, Adc Lab Main Marcia Ocampo [facility] 1.2.840.114 350.1.13.10 4.2.7.2.686 [id number] [facility] 2023-09-24 12:15:00 2023-09-24 12:15:00 Outpatient R MARCIA OCAMPO [facility] [id number] [facility] 2023-09-20 14:45:00 2023-09-20 15:06:34 Outpatient R MARCIA OCAMPO [facility] [id number] [facility] 2023-09-20 14:45:00 2023-09-20 15:06:34 Routine Visit Marcia Ocampo [facility] 1.2840.114 350.1.13.10 4.2.7.2.686 [id number] [facility] 2023-09-20 00:00:00 2023-09-20 00:00:00 Orders Only Doctor Unassigned, [place] [facility] 1.2840.114 350.1.13.10 4.2.7.2.686 [id number] [facility] 2023-09-16 09:30:00 2023-09-16 09:30:00 Outpatient R [facility] [id number] [facility] 2023-09-13 11:30:00 2023-09-13 12:27:12 Woods Laborer Visit Lab, Ang - Db [facility] 1.2840.114 350.1.13.10 4.2.7.2.686 [id number] [facility] 2023-09-13 11:30:00 2023-09-13 11:30:00 Outpatient R DAMARIS [facility] [id number] [facility] 2023-09-13 10:30:00 2023-09-13 10:44:17 Routine Visit Marcia Ocampo [facility] 1.20.114 350.1.13.10 4.2.7.2.686 [id number] [facility] 2023-09-13 00:00:00 2023-09-13 00:00:00 Orders Only Doctor Unassigned, [place] [facility] 1.2840.114 350.1.13.10 4.2.7.2.686 [id number] [facility] 2023-09-12 14:45:00 2023-09-12 14:51:15 Outpatient P LEONA PRIETO [facility] [id number] [facility] 2023-09-12 14:45:00 2023-09-12 14:51:15 Woods Laborer Visit Ultrasound, Joslyn PrietoLeona Abdi [facility] STRIPPING [facility] [employer] 1.2.840.114 350.1.13.10 4.2.7.2.686 [id number] [facility] 2023-09-06 15:15:00 2023-09-06 15:15:00 Outpatient R MARCIA OCAMPO [facility] [id number] [facility] 2023-09-06 00:00:00 2023-09-06 00:00:[address] [facility] [address] 1.2.840.114 350.1.13.10 4.2.7.2.686 [id number] [facility] 2023-08-23 13:15:00 2023-08-23 13:20:59 Outpatient R MARCIA OCAMPO [facility] [id number] [facility] 2023-08-23 13:15:00 2023-08-23 13:20:59 Routine Visit Marcia Ocampo [facility] 1.2.840.114 350.1.13.10 4.2.7.2.686 [id number] 134 [id number] [facility] 2023-08-09 12:45:00 2023-08-09 12:48:32 Routine Visit Marcia Ocampo [facility] 1.2.840.114 350.1.13.10 4.2.7.2.686 [id number] [facility] 2023-08-09 09:30:00 2023-08-09 09:53:53 Outpatient P CONNERLEONA [facility] [id number] [facility] 2023-08-09 09:30:00 2023-08-09 09:53:53 Woods Laborer Visit Ultrasound, Joslyn Prieto Leona Moultonsatish [facility] STRIPPING [employer] [facility] 1.84.114 350.1.13.10 4.2.7.2.686 [id number] [facility] 2023-08-08 10:45:00 2023-08-08 11:22:36 Outpatient R MARCIA OCAMPO [facility] [id number] [facility] 2023-08-08 10:45:00 2023-08-08 11:00:00 Woods Laborer Visit [facility] MED[facility] 1.840.114 350.1.13.10 4.2.7.2.686 [id number] [facility] 2023-07-22 09:15:00 2023-07-22 09:15:00 Outpatient R [facility] [id number] [facility] 2023-07-19 11:15:00 2023-07-19 11:25:44 Outpatient R MARCIA OCAMPO [facility] [id number] [facility] 2023-07-19 11:15:00 2023-07-19 11:25:44 Routine Visit Damaris Marcia [facility] 1..114 350.1.13.10 4.2.7.2.686 [id number] [facility] 2023-07-09 00:00:00 2023-07-09 00:00:00 Telephone Damaris [facility] 1..114 350.1.13.10 4.2.7.2.686 [id number] [facility] 2023-06-17 09:16:42 2023-06-17 09:16:42 Outpatient ABEL ROMAN [id number] John Beckman 2023-06-14 11:30:00 2023-06-14 11:40:45 Outpatient R MARCIA OCAMPO [facility] [id number] [facility] 2023-06-14 11:30:00 2023-06-14 11:40:45 Routine Visit Marcia Ocampo [facility] 1.0.114 350.1.13.10 4.2.7.2.686 [id number] [facility] 2023-05-29 10:45:00 2023-05-29 12:00:00 Woods Laborer Visit Ultrasound, Marine Arciniega [facility] STRIPPING [employer] [facility] 1.2.114 350.1.13.10 4.2.7.2.686 [id number] [facility] 2023-05-29 10:45:00 2023-05-29 10:45:00 Outpatient P MARINE OLMSTEAD SANGEETA [facility] [id number] [facility] 2023-05-23 00:00:00 2023-05-23 00:00:00 Telephone Damaris Marcia [facility] 1.2.114 350.1.13.10 4.2.7.2.686 [id number] 134 [id number] [facility] 2023-05-17 11:15:00 2023-05-17 11:27:00 Outpatient R MARCIA OCAMPO [facility] [id number] [facility] 2023-05-17 11:15:00 2023-05-17 11:27:[address] [facility] 1.2.114 350.1.13.10 4.2.7.2.686 [id number] [facility] 2023-05-07 00:00:00 2023-05-07 00:00:00 Telephone Damaris [facility] 1.2.840.114 350.1.13.10 4.2.7.2.686 [id number] [facility] 2023-05-06 21:13:00 2023-05-06 22:09:00 Emergency X ATUL LEAL [facility] ERT [id number] [facility] 2023-05-06 21:13:00 2023-05-06 22:09:00 Emergency Atul Leal [facility] 1.840.114 350.1.13.10 4.2.7.2.686 [id number] [facility] 2023-05-06 07:30:00 2023-05-06 07:36:11 Outpatient R MARCIA OCAMPO [facility] [id number] [facility] 2023-05-06 07:30:00 2023-05-06 07:36:11 Woods Laborer Visit Lab, Martell Bravo Vien Cam [facility] 1.0.114 350.1.13.10 4.2.7.2.686 [id number] [facility] 2023-04-30 07:30:00 2023-04-30 07:30:00 Outpatient R [facility] [id number] [facility] 2023-04-21 00:00:00 2023-04-21 00:00:00 Nurse Triage Marely Ly [facility] 1.0.114 350.1.13.10 4.2.7.2.686 [id number] [facility] 2023-04-19 11:00:00 2023-04-19 11:06:57 Routine Visit Marcia Ocampo [facility] 1.840.114 350.1.13.10 4.2.7.2.686 [id number] [facility] 2023-04-19 11:00:00 2023-04-19 11:06:57 Outpatient R MARCIA OCAMPO [facility] [id number] [facility] 2023-04-01 00:00:00 2023-04-01 00:00:[address] [facility]AT[facility]IC CLINIC 1.2.840.114 350.1.13.10 4.2.7.2.686 [id number] 134 [id number] [facility] 2023-03-29 14:00:00 2023-03-29 14:47:28 Nurse Visit Nurse, [facility] Damaris [facility] NAL BUILDING 1..840.114 350.1.13.10 4.2.7.2.686 [id number] 134 [id number] [facility] 2023-03-29 14:00:00 2023-03-29 14:47:28 Outpatient R OCAMPO [facility] [id number] [facility] 2023-03-29 00:00:00 2023-03-29 00:00:00 Telephone Leia Everett [facility] 1.2.840.114 350.1.13.10 4.2.7.2.686 [id number] 134 [id number] [facility] 2023-03-27 13:00:00 2023-03-27 13:00:00 Woods Laborer Visit Lab, Juan Carlos Velazco Damaris [facility] ANGELA[facility] 1..840.114 350.1.13.10 4.2.7.2.686 [id number] [facility] 2023-03-27 13:00:00 2023-03-27 11:28:09 Outpatient R OCAMPO [facility] [id number] [facility] 2023-03-27 11:00:00 2023-03-27 11:00:00 Outpatient Nacho [facility] [id number] [facility] 2023-03-26 08:00:00 2023-03-26 10:57:52 Outpatient R MARCIA OCAMPO [facility] [id number] [facility] 2023-03-26 08:00:00 2023-03-26 10:57:52 Woods Laborer Visit Lab, Ang - Db Marcia Ocampo [facility] ANGELA[facility] 1.2.840.114 350.1.13.10 4.2.7.2.686 [id number] [facility] 2023-03-26 00:00:00 2023-03-26 00:00:00 Case Management Damaris [facility] BUILDING 1.2840.114 350.1.13.10 4.2.7.2.686 [id number] [facility] 2023-03-26 00:00:00 2023-03-26 00:00:[address] [facility] 1.2840.114 350.1.13.10 4.2.7.2.686 [id number] 134 [id number] [facility] 2023-03-25 00:00:00 2023-03-25 00:00:00 Telephone Marcia Ocampo [facility] BUILDING 1..840.114 350.1.13.10 4.2.7.2.686 [id number] [facility] 2023-03-25 00:00:00 2023-03-25 00:00:00 Telephone Damaris [facility] 1.2840.114 350.1.13.10 4.2.7.2.686 [id number] [facility] 2023-03-23 00:00:00 2023-03-23 00:00:00 Case Management Damaris [facility] BUILDING 1.2840.114 350.1.13.10 4.2.7.2.686 [id number] 134 [id number] [facility] 2023-03-22 10:45:00 2023-03-22 11:00:00 Woods Laborer Visit Lab, Ang - Arleen Huangen [facility]ce [facility] 1.84.114 350.1.13.10 4.2.7.2.686 [id number] [facility] 2023-03-22 09:00:00 2023-03-22 09:34:31 Outpatient R MARCIA OCAMPO [facility] [id number] [facility] 2023-03-22 09:00:00 2023-03-22 09:34:31 Initial Visit Arleen Ocampoen Bryce [facility] 1..114 350.1.13.10 4.2.7.2.686 [id number] [facility] 2023-03-22 00:00:00 2023-03-22 00:00:00 Orders Only Doctor Unassigned, [place] [facility] 1..114 350.1.13.10 4.2.7.2.686 [id number] [facility] 2023-03-06 21:58:00 2023-03-06 23:40:00 Emergency X RAMIREZ SANCHEZ [facility] ERT [id number] [facility] 2023-03-06 21:58:00 2023-03-06 23:40:00 Emergency Senait Sancheznt J [facility] 1..114 350.1.13.10 4.2.7.2.686 [id number] [facility] 2023-03-06 13:00:00 2023-03-06 13:00:00 Outpatient R EDITA OTAES [facility] [id number] [facility] 2022-12-20 14:30:00 2022-12-20 15:15:47 Outpatient R EDITA OATES [facility] [id number] [facility] 2022-12-20 14:30:00 2022-12-20 15:15:47 Office Visit Edita Oates [facility] STRIPPING SHOVEL OILER [facility] CHILD [facility] 1.84.114 350.1.13.10 4.2.7.2.686 [id number] [facility] 2022-12-20 00:00:00 2022-12-20 00:00:00 Orders Only Doctor Unassigned, [place] [facility] .114 350.1.13.10 4.2.7.2.686 [id number] [facility] 2022-12-14 09:15:00 2022-12-14 09:15:00 Outpatient R SURJIT RICE [facility] [id number] [facility] 2022-07-18 13:00:00 2022-07-18 13:45:54 Outpatient R SURJIT RICE [facility] [id number] [facility] 2022-07-18 13:00:00 2022-07-18 13:45:54 Office Visit Surjit Rice [facility] STRIPPING SHOVEL [facility]ILER [facility] CHILD [facility] .840.114 350.1.13.10 4.2.7.2.686 [id number] [facility] 2021-12-14 08:45:00 2021-12-14 10:01:04 Outpatient R GERMAN BACK [facility] [id number] [facility] 2021-12-14 08:45:00 2021-12-14 10:01:04 Office Visit German Back [facility] STRIPPING SHOVEL OILER [facility] CHILD [facility] 1.84.114 350.1.13.10 4.2.7.2.686 [id number] [facility] 2021-12-14 08:45:00 2021-12-14 10:01:04 Outpatient GERMAN ALEXANDRE [facility] [id number] [facility] 2021-12-14 00:00:00 2021-12-14 00:00:00 Orders Only Doctor Unassigned, [place] [facility] 1.840.114 350.1.13.10 4.2.7.2.686 [id number] [facility] 2021-12-12 09:30:00 2021-12-12 09:30:00 [facility] [id number] [facility] 2021-12-12 09:30:00 2021-12-12 09:30:00 Out[facility] [id number] [facility] 2021-12-12 09:30:00 2021-12-12 09:30:00 Outpatient [facility] [id number] [facility] 2021-08-08 09:30:00 2021-08-08 09:30:00 Outpatient SKYLER YARBROUGH [facility] [id number] [facility] 2021-08-07 14:30:00 2021-08-07 15:15:07 Outpatient SKYLER YARBROUGH [facility] [id number] [facility] 2021-08-07 14:21:07 2021-08-07 15:15:07 Office Visit Skyler Cuellar [facility] STRIPPING [facility] [employer] [facility] 1.840.114 350.1.13.10 4.2.7.2.686 [id number] 107 [id number] [facility] 2021-08-07 00:00:00 2021-08-07 00:00:00 Orders Only Doctor Unassigned, [place] [facility] 1.2.840.114 350.1.13.10 4.2.7.2.686 [id number] [facility] 2021-07-20 09:30:00 2021-07-20 09:30:00 Outpatient R LINDEN DEMETRIOMILADYS [facility] [id number] [facility] 2021-07-14 00:00:00 2021-07-14 00:00:00 Telephone Surjit Rice [facility] STR[facility] MATERNAL & CHILD [facility] 1.2.840.114 350.1.13.10 4.2.7.2.686 [id number] 107 [id number] [facility] 2020-12-08 00:00:00 2020-12-08 00:00:00 Telephone German Back [facility] STRIPPING [facility] CHILD [facility] 1.2.840.114 350.1.13.10 4.2.7.2.686 [id number] 107 [id number] [facility] 2020-12-08 00:00:00 2020-12-08 00:00:00 Telephone German Back [facility] STRIPPING [facility] CHILD [facility] 1.2.840.114 350.1.13.10 4.2.7.2.686 [id number] 107 [id number] 2020-12-07 09:16:24 2020-12-07 10:08:04 Office Visit German Back [facility] STRIPPING [facility] & CHILD [facility] 1.2.840.114 350.1.13.10 4.2.7.2.686 [id number] 107 [id number] [facility] 2020-12-07 09:00:00 2020-12-07 09:00:00 Outpatient R GERMAN BACK [facility] [id number] [facility] 2020-12-07 00:00:00 2020-12-07 00:00:00 Orders Only Doctor Unassigned, [place] [facility] 1.2.840.114 350.1.13.10 4.2.7.2.686 [id number] [facility] 2020-05-02 00:00:00 2020-05-02 00:00:00 Telephone German Back [facility] STRIP[facility] & CHILD [facility] 1.2840.114 350.1.13.10 4.2.7.2.686 [id number] 107 [id number] [facility] 2020-02-12 12:56:01 2020-02-12 13:27:54 [facility] Visit [facility] [place] [facility] STR[facility] & CHILD [facility] 1.2840.114 350.1.13.10 4.2.7.2.686 [id number] 107 [id number] [facility] 2020-02-12 13:00:00 2020-02-12 13:00:00 Outpatient GERMAN ALEXANDRE [facility] [id number] [facility] 2020-02-11 00:00:00 2020-02-11 00:00:00 Telephone [place] Back [facility] [facility] STRIP[facility] SHOVEL OILER [facility] & CHILD [facility] [id number] [id number] [facility] 2020-02-11 00:00:00 2020-02-11 00:00:00 Telephone Surjit Rice [facility] STRIP[facility] SHOVEL OILER [facility] & CHILD [facility] [id number] [facility] 2020-02-09 14:00:00 2020-02-09 14:00:00 Outpatient GERMAN ALEXANDRE [facility] [id number] [facility] 2020-02-03 13:00:00 2020-02-03 13:00:00 Outpatient Nacho [facility] [id number] [facility] 2019-12-31 00:39:27 2019-12-31 01:01:00 Emergency Monica Sanchez [facility] [id number] [facility] 2019-10-19 00:00:00 2019-10-19 00:00:00 Telephone Angelina Backyazmin Griffith [facility] STRIPPING SHOVEL OILER [facility]NAL & CHILD [facility] [id number] [facility] 2019-10-16 12:48:54 2019-10-16 14:02:54 Office Visit Angelina Backyazmin Griffith [facility] STRIPPING SHOVEL [facility] MATERNAL & CHILD [facility] [id number] [facility] 2018-02-25 08:45:00 2018-02-25 08:45:00 [facility]patient [facility] [id number] [facility] Results Test Description Test Time Test Comments Results Result Co mments Source [id number] 21:06:00* Test Item Value Reference Range Interpretation Comme [facility] POCT PREG (test code = 1605) Negative On board controls acceptable with C Line (test code = 3574) Yes POCT PREG LOT # (test code = 3575) POCT PREG TEST DATE ( test code = 3576) [facility] IMMUNE [id number] 15:17:58* Test Item Value Reference Range Interpretation Comme nts RHIG CANDIDATE? (test code = 5188) No- see comment Patient is not a candidate for RhIg- Patient is Rh Positive.Performed at [facility] Laboratory Services - [facility] Blood [address] [place] [id number] Free: [phone] No. [id number] [facility] with [id number] 11:15:54* Test Item Value Reference Range Interpretation [...] 34.7 g/dL 31.6-35.1 RDW-SD (test code = 50878-9) 42.5 fL 39.0-49.9 RDW-CV (test code = 788-0) 13.1 % 12.0-15.5 PLT (test code = 777-3) 174 See_Comment [Automated message] The system which generated this result transmitted reference range: 166 - 358 10*3/?L. The reference range was not used to interpret this result as normal/abnormal. MPV (test code = 50707-0) 11.3 fL 9.5-12.9 NRBC/100 WBC (test code = 4327368344) 0.0 See_Comment [Automated message] The system which generated this result transmitted reference range: 0.0 - 10.0 /100 WBCs. The reference range was not used to interpret this result as normal/abnormal. NRBC x10^3 (test code = 8839664306) See_Comment [Automated message] The system which generated this result transmitted reference range: 10*3/?L. The reference range was not used to interpret this result as normal/abnormal. GRAN MAT (NEUT) % (test code = 770-8) 86.4 % IMM GRAN % (test code = 9748011864) 0.60 % LYMPH % (test code = 736-9) 6.9 % MONO % (test code = 5905-5) 5.1 % EOS % (test code = 713-8) 0.8 % BASO % (test code = 706-2) 0.2 % GRAN MAT x10^3(ANC) (test code = 6406788050) 12.14 10*3/uL 1.88-7.09 H IMM GRAN x10^3 (test code = 5094098746) 0.08 10*3/uL 0.00-0.06 H LYMPH x10^3 (test code = 731-0) 0.97 10*3/uL 1.32-3.29 L MONO x10^3 (test code = 742-7) 0.71 10*3/uL 0.33-0.92 EOS x10^3 (test code = 711-2) 0.11 10*3/uL 0.03-0.39 BASO x10^3 (test code = 704-7) 0.03 10*3/uL 0.01-0.07 Lab Interpretation (test code = 00368-4) Abnormal [facility] GLUCOSE (AUTOMATED)2023-09-26 03:26:13* Test Item Value Reference Range Interpretation Comme nts POCT GLU (test code = 0387621224) 86 mg/dL 70-110 Lab Interpretation (test cod e = 15481-7) Normal [facility] GLUCOSE (AUTOMATED)2023-09-26 00:49:14* Test Item Value Reference Range Interpretation Comme nts POCT GLU (test code = 2615178949) 79 mg/dL 70-110 Lab Interpretation (test cod e = 15549-2) Normal [facility] GLUCOSE (AUTOMATED)2023-09-25 19:43:12* Test Item Value Reference Range Interpretation Comme nts POCT GLU (test code = 4362341928) 98 mg/dL 70-110 Lab Interpretation (test cod e = 13570-1) [facility] Rnaej2346-09-51 16:25:00 Sachin William MD ? ? 09/25/2023 [...] YANETH sa line ?Guidance with: landmark technique}Epidural/Spinal [place] and/or Catheter: ?Epidural/Spinal Kit: BBun ?Needle Type: Tuohy ?Needle Gauge: 17 G [...] no more heme aspirated. Negative test dose [facility] Yogvb8526-25-97 16:25:00 Sachin William MD ? ? 09/25/2023 [...] YANETH sa line ?Guidance with: landmark technique}Epidural/Spinal [place] and/or Catheter: ?Epidural/Spinal Kit: BBraun ?Needle Type: [...] more heme aspirated. Negative test dose [facility] GLUCOSE (AUTOMATED)2023-09-25 15:04:40* Test Item Value Reference Range Interpretation Comme nts POCT GLU (test code = 9627239040) 116 mg/dL 70-110 H Lab Interpretation (test cod e = 11218-3) [facility] - ONCE [id number] 15:00:00* Test Item Value Reference Range Interpretation Comme nts ABO & RH (test code = 20) O POSITIVE IAT (test code = 1185) Negative [facility] with [id number] 18:44:22* Test Item Value Reference Range Interpretation [...] 34.6 g/dL 31.6-35.1 RDW-SD (test code = 33244-2) 42.4 fL 39.0-49.9 RDW-CV (test code = 788-0) 12.9 % 12.0-15.5 PLT (test code = 777-3) 197 See_Comment [Automated messa ge] The system which generated this result transmitted reference range: 166 - 358 10*3/?L. The reference range was not used to interpret this result as normal/abnormal. MPV (test code = 30678-6) 11.4 fL 9.5-12.9 NRBC/100 WBC (test code = 5934255936) 0.0 See_Comment [Automated TRSB Groupe ssage] The system which generated this result transmitted reference range: 0.0 - 10.0 /100 WBCs. The reference range was not used to interpret this result as normal/abnormal. NRBC x10^3 (test code = 9738039199) See_Comment [Automated messa ge] The system which generated this result transmitted reference range: 10*3/?L. The reference range was not used to interpret this result as normal/abnormal. GRAN MAT (NEUT) % (test code = 770-8) 78.2 % IMM GRAN % (test code = 0795306111) 0.50 % LYMPH % (test code = 736-9) 15.3 % MONO % (test code = 5905-5) 4.4 % EOS % (test code = 713-8) 1.2 % BASO % (test code = 706-2) 0.4 % GRAN MAT x10^3(ANC) (test code = 7923123835) 6.33 10*3/uL 1.88-7.09 IMM GRAN x10^3 (test code = 3875587240) 0.04 10*3/uL 0.00-0.06 LYMPH x10^3 (test code = 731-0) 1.24 10*3/uL 1.32-3.29 L MONO x10^3 (test code = 742-7) 0.36 10*3/uL 0.33-0.92 EOS x10^3 (test code = 711-2) 0.10 10*3/uL 0.03-0.39 BASO x10^3 (test code = 704-7) 0.03 10*3/uL 0.01-0.07 Lab Interpretation (test code = 04505-5) Abnormal [facility] with [id number] 18:44:22* Test Item Value Reference Range Interpretation [...] 34.6 g/dL 31.6-35.1 RDW-SD (test code = 88430-2) 42.4 fL 39.0-49.9 RDW-CV (test code = 788-0) 12.9 % 12.0-15.5 PLT (test code = 777-3) 197 See_Comment [Automated messa ge] The system which generated this result transmitted reference range: 166 - 358 10*3/?L. The reference range was not used to interpret this result as normal/abnormal. MPV (test code = 70956-9) 11.4 fL 9.5-12.9 NRBC/100 WBC (test code = 0027563454) 0.0 See_Comment [Automated TRSB Groupe ssage] The system which generated this result transmitted reference range: 0.0 - 10.0 /100 WBCs. The reference range was not used to interpret this result as normal/abnormal. NRBC x10^3 (test code = 6331523601) See_Comment [Automated messa ge] The system which generated this result transmitted reference range: 10*3/?L. The reference range was not used to interpret this result as normal/abnormal. GRAN MAT (NEUT) % (test code = 770-8) 78.2 % IMM GRAN % (test code = 3953671544) 0.50 % LYMPH % (test code = 736-9) 15.3 % MONO % (test code = 5905-5) 4.4 % EOS % (test code = 713-8) 1.2 % BASO % (test code = 706-2) 0.4 % GRAN MAT x10^3(ANC) (test code = 4162472334) 6.33 10*3/uL 1.88-7.09 IMM GRAN x10^3 (test code = 7660103132) 0.04 10*3/uL 0.00-0.06 LYMPH x10^3 (test code = 731-0) 1.24 10*3/uL 1.32-3.29 L MONO x10^3 (test code = 742-7) 0.36 10*3/uL 0.33-0.92 EOS x10^3 (test code = 711-2) 0.10 10*3/uL 0.03-0.39 BASO x10^3 (test code = 704-7) 0.03 10*3/uL 0.01-0.07 Lab Interpretation (test code = 84833-4) Abnormal [facility] with [id number] 20:29:26* Test Item Value Reference Range Interpretation Comme nts WBC (test code = 6690-2) 8.96 See_Comment [Automated Glimpse.coma Gnodal] The system which generated this result transmitted reference range: 4.30 - 11.10 10*3/?L. The reference range was not used to interpret this result as normal/abnormal. RBC (test code = 789-8) 4.20 See_Comment [Automated Glimpse.coma Gnodal] The system which generated this result transmitted [...] 33.9 g/dL 31.6-35.1 RDW-SD (test code = 63444-8) 41.6 fL 39.0-49.9 RDW-CV (test code = 788-0) 12.6 % 12.0-15.5 PLT (test code = 777-3) 181 See_Comment [Automated Glimpse.coma Gnodal] The system which generated this result transmitted reference range: 166 - 358 10*3/?L. The reference range was not used to interpret this result as normal/abnormal. MPV (test code = 13786-4) 11.8 fL 9.5-12.9 NRBC/100 WBC (test code = 5633135127) 0.0 See_Comment [Automated me ssage] The system which generated this result transmitted reference range: 0.0 - 10.0 /100 WBCs. The reference range was not used to interpret this result as normal/abnormal. NRBC x10^3 (test code = 0779878922) See_Comment [Automated messa ge] The system which generated this result transmitted reference range: 10*3/?L. The reference range was not used to interpret this result as normal/abnormal. GRAN MAT (NEUT) % (test code = 770-8) 79.2 % IMM GRAN % (test code = 6053531151) 0.90 % LYMPH % (test code = 736-9) 14.8 % MONO % (test code = 5905-5) 4.2 % EOS % (test code = 713-8) 0.6 % BASO % (test code = 706-2) 0.3 % GRAN MAT x10^3(ANC) (test code = 8914268846) 7.09 10*3/uL 1.88-7.09 IMM GRAN x10^3 (test code = 7337019937) 0.08 10*3/uL 0.00-0.06 H LYMPH x10^3 (test code = 731-0) 1.33 10*3/uL 1.32-3.29 MONO x10^3 (test code = 742-7) 0.38 10*3/uL 0.33-0.92 EOS x10^3 (test code = 711-2) 0.05 10*3/uL 0.03-0.39 BASO x10^3 (test code = 704-7) 0.03 10*3/uL 0.01-0.07 Lab Interpretation (test code = 06573-5) Abnormal [facility] Urinalysis w/o Specific Gqiftzi0350-41-05 16:37:00* Test Item Value Reference Range Interpretation [...] = 3257) N/A Negative - Negati ve [facility] Urinalysis w/o Specific [id number] 19:09:00* Test Item Value Reference Range Interpretation [...] = 3257) N/A Negative - Negati ve [facility] URINALYSIS W/O SPECIFIC [id number] 18:37:00* Test Item Value Reference Range Interpretation [...] = 3257) N/A Negative - Negati ve [facility] URINALYSIS W/O SPECIFIC [id number] 17:15:00* Test Item Value Reference Range Interpretation [...] = 3257) N/A Negative - Negati ve [facility] URINALYSIS W/O SPECIFIC [id number] 16:55:00* Test Item Value Reference Range Interpretation [...] 3257) Negative Negative - Negati ve [facility] URINALYSIS W/O SPECIFIC [id number] 16:05:00* Test Item Value Reference Range Interpretation [...] = 3257) N/A Negative - Negati ve [facility] URINALYSIS W/O SPECIFIC [id number] 15:36:00* Test Item Value Reference Range Interpretation [...] = 3257) n/a Negative - Negati ve [facility]A1C)2023-03-27 20:21:55* Test Item Value Reference Range Interpretation Comme nts HGB A1C (test code = 4548-4) 4.8 % 4.0-5.7 ESTEPHANIA (test code = ESTEPHANIA) Reference RangesNormal: <5.7%Prediabetes: 5.7 - 6.4%Diabetes: > 6.5% Lab Interpretation (test code = 23529-3) Normal [facility] W/O SPECIFIC [id number] 14:01:00* Test Item Value Reference Range Interpretation [...] = 3257) n/a Negative - Negati ve [facility] [id number] 03:07:00* Test Item Value Reference Range Interpretation Comme nts POCT PREG (test code = 1605) Positive On board controls acceptable with C Line (test code = 3574) Yes POCT PREG LOT # (test code = 3575) [id number] POCT PREG TEST DATE ( test code = 3576) 06/14/2024 Lab Interpretation (test cod e = 47081-7) Normal [facility] History and Physical Notes Date/Time Note [...] Operations: Past Surgical History: Procedure Laterality Date LA FISSURECTOMY INCL SPHINCTEROTOMY WHEN PERFORMED Past Medical History: Diagnosis Date Anemia of mother in , antepartum 01/24/2018 resolved Anxiety Managed by [facility], managing without medication Chlamydia 2013 treated Depression managed by [facility], ongoing, managing without medication Family history of [...] details Marcia Ocampo MD 09/25/2023 9:59 AM [facility] Procedure Notes Date/Time Note Provider Source [...] YANETH saline Guidance with: landmark technique} Epidural/Spinal [place] and/or Catheter: Epidural/Spinal Kit: BBraun Needle Type: [...] no more heme aspirated. Negative test dose [facility] 2023-09-25 10:01:52 Procedure(s): INSERT CERVICAL DILATOR Pre-Procedure Diagnose(s): 39 weeks gestation of ; GDM, class A1 Post-Procedure Diagnose(s): 39 weeks gestation of ; GDM, class A1 Duenas bulb inserted in a sterile manner and inflated with 60 cc of normal saline without complications. Patient tolerated the procedure well. Marcia Ocampo MD #[id number] 09/25/2023 10:02 AM [facility] Notes Date/Time Note Provider Source 2023-11-13 [...] day." Leia Everett RN 11/13/2023 8:55 AM ING MACHINE OPERATOR Leia Everett RN [facility] 2023-11-13 08:13:52 Patient states she has had a boil that keeps draining. She has been putting hot compresses and is requesting an antibiotic. [facility]/pharmacy #[id number] - [place], [place] - [address] AT [facility] YL Flores [facility] 2023-11-01 10:04:03 Spoke with patient. Patient scheduled for nexplanon insertion with Dr. Ocampo 11/06/2023 Ryan Allen RN 11/01/2023 10:04 AM YL Allen RN [facility] 2023-11-01 08:29:28 Patient is calling stating she started period on 10/31. She states Dr. Ocampo told her to call and notify the nurse. She is requesting to get the nexplanon. She will go to [place] if needed. YL Flores [facility] 2023-09-27 10:09:38 Problem: Pain Goal: Control [...] Outcome: Progressing as expected YL Polanco RN [facility] 2023-09-27 08:51:16 Problem: Pain Goal: Control of pain at or below patient's documented comfort goal Outcome: Progressing as expected Goal: Reduction in pain sensation Outcome: Progressing as expected Problem: Discharge Planning - Goal: Adequate for discharge Outcome: Progressing as expected Goal: Mood stable Outcome: Progressing as expected Problem: Falls, Risk of Goal: Absence of falls Outcome: Progressing as expected [facility] 2023-09-27 01:10:37 Problem: Pain Goal: Control of pain at or below patient's documented comfort goal Outcome: Progressing as expected Goal: Reduction in pain sensation Outcome: Progressing as expected Problem: Discharge Planning - Goal: Adequate for discharge Outcome: Progressing as expected Goal: Mood stable Outcome: Progressing as expected Problem: Falls, Risk of Goal: Absence of falls Outcome: Progressing as expected YL Landa RN [facility] 2023-09-26 09:54:20 Problem: Pain Goal: Control of pain at or below patient's documented comfort goal Outcome: Progressing as expected Goal: Reduction in pain sensation Outcome: Progressing as expected Problem: Discharge Planning - Goal: Adequate for discharge Outcome: Progressing as expected Goal: Mood stable Outcome: Progressing as expected YL Adamson RN [facility] 2023-09-26 07:06:23 Patient: Artemio Clinton Procedure [...] recovery from neuraxial block Fall precautions given ING MACHINE OPERATOR AN-ANESTHESIOLOGY ANESTHESIOLOGIST [facility] 2023-09-26 00:23:34 Problem: Discharge Planning - Goal: Adequate for discharge Outcome: Progressing as expected Problem: Discharge Planning - Goal: Mood stable Outcome: Progressing as expected YL Jose RN [facility] 2023-09-26 00:22:47 Problem: Intrapartum process (including [...] to next level of care 09/26/202321 by Mraisol Jose RN Outcome: Resolved 09/25/20231942 by Marisol Jose RN Outcome: Progressing as expected Goal: Reduction in pain sensation 09/26/202321 by Marisol Jose RN Outcome: Resolved 09/25/20231942 by Marisol Jose RN Outcome: Progressing as expected [facility] 2023-09-25 23:43:00 DELIVERY BY SPONTANEOUS VAGINAL [...] 9 Marcia Ocampo MD 09/26/2023 7:47 AM [facility] 2023-09-25 19:44:09 Problem: Intrapartum process (including [...] in pain sensation Outcome: Progressing as expected [facility] 2023-09-25 11:00:52 Name/ MRN / Age / Gender: Artemio Clinton [id number] 27 year old female BMI: Estimated body [...] Anesthesia Preop Eval (physical exam) Anesthesia Preop: Zxcu-af-Bvjy NPO Status Verified Anesthesia History (-) Hx [...] and 20g Endo/Other Negative Endo/Other ROS Other STRIPPING SHOVEL OILER Negative STRIPPING SHOVEL OILER ROS (-) S/P BTL P: 1031 Pediatric Preoperative Medication Instructions Continue taking all prescribed medications except: SILVANA inhibitors, ARBs, diuretics, all oral diabetes medications Anticoagulant Therapy: Defer to surgeons Insulin: Take 1/2 dose the night prior to surgery. Hold on DOS. Phentermine: Alert [facility] anesthesiologist SGLT2 Inhibitors: "gliflozins" to be held for 3 days prior to elective surgeries GLP1 Agonosit: stop 7 days prior to surgery MAC Cases: Continue taking SILVANA inhibitors and ARBs ASA Classification ASA: 2 Current Medications: No outpatient medications have been marked as taking for the 09/25/23 encounter (Hospital Encounter). Previous Surgeries: Past Surgical History: Procedure Laterality Date LA FISSURECTOMY INCL SPHINCTEROTOMY WHEN PERFORMED Anesthesia Physical [...] induction Anesthesia plan discussed with: patient or circulation representative Post-Operative Analgesia: routine analgesia & antiemetics Recovery Plan: LDR Additional comments: [facility] AN-ANESTHESIOLOGY ANESTHESIOLOGIST [facility] 2023-09-25 03:40:00 Pt called to explained that her induction is being postponed and to expect a phone call later for her to come in. Pt verbalized understanding. YL Sanchez RN [facility] 2023-09-24 12:15:00 Images from the original [...] DK BLUE (S) ACD Blood Culture NIPT/NTD [facility] 2023-09-24 12:15:00 All winn do not have to draw TS. YL Martinez [facility] 2023-09-24 12:15:00 Addended by: ISAC MARTINEZ on: 09/24/2023 02:28 PM Modules accepted: Orders [facility] 2023-09-20 14:45:00 Age: [age] year old [...] in 4 to 6 weeks for visit [facility] 2023-09-13 11:30:00 Images from the original [...] DK BLUE (S) ACD Blood Culture NIPT/NTD [facility] 2023-09-13 10:30:00 Age: [age] year old [...] today RTC in 1 wk for PN ING MACHINE OPERATOR [facility] 2023-09-06 15:36:01 Paxlovid 300 mg x 5 day sent in to pharmacy on file per Dr. Ocampo. Patient notified of rx sent in. Advised patient of importance of staying hydrated, taking otc safe medications for symptoms, monitoring FKC, and to monitor symptoms. Strong ER precautions given. Patient verbalized understanding. Leia Everett RN 09/06/2023 3:38 PM [facility] Leia Everett RN [facility] 2023-09-06 11:02:38 Patient states that she tested positive for covid yesterday at [facility], c/o headache, sore throat, runny nose, [...] appt. Leia Everett RN 09/06/2023 11:10 AM ING MACHINE OPERATOR [facility] 2023-09-06 10:39:31 Pt calling says she felt sick and went to er yesterday tested positive for covid has appt later today ING MACHINE OPERATOR Altagracia Rome [facility] 2023-05-23 09:40:44 Formatting of this n ote might be different from the original. 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 Leia Everett RN 05/23/2023 9:40 AM Leia Everett RN [facility] 2023-05-23 09:34:23 Formatting of this n ote might be different from the original. Patient is needing a dental clearance for a filling. Her appointment is scheduled on 06/06/2023. She will be getting it done at [facility] in [place], she did not have the fax number. She will either like it faxed or she can pick it up. Adele Flores [facility] 2023-05-17 11:15:00 Formatting of this n ote might be different from the original. Images from the original note were not included. Age: [age] year old GA: 20w2d Left buttock abscess - First present to [place] [facility] on 04/21/23 and was prescribed Clindamycin. She completed clindamycin as prescribed. She re-presented to [facility] ER on 05/06/23 for the [...] 05/29/23 Follow-up in 4 weeks for visit [facility] 2023-05-07 12:49:05 Formatting of this n ote might be different from the original. Patient notified of lab results. 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 Advised patient Dr. Ocampo will go over in more detail at visit and answer any additional questions. Patient verbalized understanding. Leia Everett RN 05/07/2023 12:49 PM Leia Everett RN [facility] 2023-05-07 11:55:30 Formatting of this n ote might be different from the original. Pt would like a nurse to call her back and go over her labs with her. Jaja Fay [facility] 2023-05-06 21:59:11 Formatting of this n [...] in no apparent distress, Nabila Andre RN [facility] 2023-05-06 20:50:00 Formatting of this n [...] 18 weeks LMP 12/27/2022 Tiffanie Horton RN [facility] 2023-05-06 20:47:00 Associated Order(s): Incision and Drainage Images from the original note were not included. [facility] Emergency Department Note Patient Name: Artemio Clinton Date of : 1995 27 year old female Treatment Room: TX4/TX4 Primary Care Physician: PATIENT DOES NOT HAVE A PCP Patient Escorted by: Self [9] Mode of Arrival: Personal means [1] EMS Treatment Prior to ED Arrival: [employer] treatment: None Travel and Exposure Screening: Symptoms [...] , antepartum 01/24/2018 resolved Anxiety Managed by [facility], managing without medication Chlamydia 2010, 2013 treated Depression managed by [facility], ongoing, managing without medication Family history of [...] History: Past Surgical History: Procedure Laterality Date LA FISSURECTOMY INCL SPHINCTEROTOMY WHEN PERFORMED Review of [...] these medications No medications on file Follow-up: Electronically signed by: Atul Leal DO 05/06/23 2155 [facility] 2023-05-06 07:30:00 Formatting of this n ote [...] DK BLUE (S) ACD Blood Culture NIPT/NTD [facility] 2023-04-21 14:49:00 Formatting of this n ote might be different from the original. Regarding: Pt wants to know if she can take pepto bismol ----- Message from Terrell Oscar sent at 04/21/2023 2:48 PM CDT ----- Artemio Clinton is a 27 year old female Pt wants to know if she can take Pepto bismol for a stomach ache. Marely Ly RN [facility] 2023-04-21 14:49:00 Formatting of this n [...] on ADL's: some change Gestational Weeks: 16 4/7 weeks Rupture Membranes: denies Bleeding / Spotting / Pads per hour: denies Movement: N/A Para / : EDC: 10/02/23 per [place] 03/22/23 Pre-existing condition / Immunocompromised: GDM Reason for Disposition Mild abdominal pain Protocols used: - Abdominal Pain Less Than 20 Weeks [id number] EM Soto, RN [facility] Access Center Triage Nurse T [facility] 2023-04-19 11:00:00 Formatting of this n [...] ordered Follow-up in 4 weeks for visit [facility] 2023-04-01 14:27:08 Formatting of this n ote might be different from the original. Fax received from [facility] requesting a prior authorization for the test strips. Spoke with pharmacy and confirmed all the supplies have been picked up at no charge, PA not required. Linsey Artis MA [facility] 2023-03-29 16:16:43 Formatting of this n ote might be different from the original. Prema results received via fax. Panorama- low risk, female Horizon- negative for 14 out of 14 diseases Spoke with patient, name and verified. Patient informed of results including gender. Results signed, will scan and upload a copy to [facility]. Leia Everett RN 03/29/2023 4:17 PM Leia Everett RN [facility] 2023-03-27 13:00:00 Formatting of this n [...] DK BLUE (S) ACD Blood Culture NIPT/NTD [facility] 2023-03-27 09:17:43 Formatting of this n [...] RN 03/27/2023 9:18 AM Edith Mills RN [facility] 2023-03-26 16:49:12 Formatting of this n ote might be different from the original. Pt called and would like someone to go over her results with her. Please advise Taurus Parker [facility]
--- NOTE | 2025-06-07 08:15 | EDPHYS ---
Physician Documentation [facility] Name: Mitra Melendez Age: 29 yrs Sex: Female : 1995 Arrival Date: 06/07/2025 Time: 07:57 Bed 12 Private MD: ED Physician Jerilyn Mitchell HPI: 06/07 08:16 This 29 yrs old Female presents to ER via Unassigned with complaints of Vaginal Pain - sb4 bump. 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 She states that does not feel like her normal abscesses. It is not draining. She is concerned that it may be a genital herpes because she was told she had them when she was but has never had a flareup. Historical: - Allergies: 08:16 Bactrim; ss 08:16 Clindamycin (Itching); ss - PMHx: 08:16 Substance Abuse; ss - PSHx: 08:16 anal fissure repair; ss - Immunization history:: Adult Immunizations up to date. - Infectious Disease History:: Denies. - Social history:: Smoking status: Patient reports the use of cigarette tobacco products, smokes one-half pack cigarettes per day. ROS: 08:17 Positive for per HPI, sb4 08:17 Constitutional: Negative for fever, chills, and weight loss, 08:17 All other systems are negative, Exam: 08:17 Constitutional: This is a well developed, well nourished patient who is awake, alert, sb4 and in no acute distress. Head/Face: Normocephalic, atraumatic. Eyes: Extra-ocular motions intact. Periorbital areas with no swelling, redness, or edema. ENT: Mucous membranes moist. Respiratory: No increased work of breathing, no retractions or nasal flaring. 08:17 Skin: abscess, that is small, approximately .5 cm(s), of the right labia minora, 08:18 Skin: abscess, that is moderate sized, of the right femoral area, with induration, sb4 Vital Signs: 08:14 BP 128 / 81; Pulse 98; Resp 18; Temp 98.6(O); Pulse Ox 100% on R/A; Weight 86.64 kg; ss Height 5 ft. 7 in. ; Pain 4/10; 08:14 Body Mass Index 29.91 (86.64 kg, 170.18 cm) 08:14 Pain Scale: Adult ss MDM: 08:03 Medical Screening Exam initiated sb4 08:18 Data reviewed: vital signs, nurses notes, and as a result, I will discharge patient. sb4 Counseling: I had a detailed discussion with the patient and/or guardian regarding the historical points, exam findings, and any diagnostic results supporting the discharge/admit diagnosis, the need for outpatient follow up, for definitive care, to return to the emergency department if symptoms worsen or persist or if there are any questions or concerns that arise at home. 08:19 ED course: I was able to apply manual pressure and express fluid out of the small sb4 abscess. Patient feels better and tolerated well. Administered Medications: No medications were administered Disposition Summary: 06/07/25 08:14 Discharge Ordered Notes: Location: Home sb4 Problem: new sb4 Symptoms: have improved sb4 Condition: Stable sb4 Diagnosis - Folliculitis sb4 Followup: sb4 - With: Emergency Department - When: As needed - Reason: Trouble breathing, Worsening of condition Discharge Instructions: - Discharge Summary Sheet sb4 - Folliculitis sb4 Forms: - Antibiotic Education sb4 - Patient Portal Instructions sb4 - Leadership Thank You Letter sb4 Prescriptions: - Doxycycline Hyclate 100 mg Oral tablet - take 1 tablet ORAL route every 12 hours; 14 tablet; Refills: 0, Product sb4 Selection Permitted - Acyclovir 400 mg Oral Tablet - take 1 tablet ORAL route every 8 hours for 5 days; 15 tablet; Refills: 0, sb4 Product Selection Permitted Signatures: Samira Crespo, RN RN Mago Fernando PA-C PALucy sb4 Corrections: (The following items were deleted from the chart) 08:18 08:17 Constitutional: This is a well developed, well nourished patient who is awake, sb4 alert, and in no acute distress. Head/Face: Normocephalic, atraumatic. Eyes: Extra-ocular motions intact. Periorbital areas with no swelling, redness, or edema. ENT: Mucous membranes moist. Respiratory: No increased work of breathing, no retractions or nasal flaring. sb4
--- NOTE | 2025-06-07 08:23 | ER ---
Nurse's Notes [facility] Name: Mitra Melendez Age: 29 yrs Sex: Female : 1995 Arrival Date: 06/07/2025 Time: 07:57 Bed 12 Private MD: Diagnosis: Folliculitis Presentation: 06/07 08:14 Chief complaint: Patient states: "bumps" to labia x days. Coronavirus screen: Client ss denies travel out of the [place] in the last 14 days. Ebola Screen: Patient denies exposure to infectious person. Patient denies travel to an Ebola-affected area in the 21 days before illness onset. Initial Sepsis Screen: Does the patient meet any 2 criteria? No. Patient's initial sepsis screen is negative. Does the patient have a suspected source of infection? No. Patient's initial sepsis screen is negative. Risk Assessment: Do you want to hurt yourself or someone else? Patient reports no desire to harm self or others. Onset of symptoms was May 2025. 08:14 Method Of Arrival: Ambulatory ss 08:14 Acuity: ELBERT 4 ss Historical: - Allergies: 08:16 Bactrim; ss 08:16 Clindamycin (Itching); ss - PMHx: 08:16 Substance Abuse; ss - PSHx: 08:16 anal fissure repair; ss - Immunization history:: Adult Immunizations up to date. - Infectious Disease History:: Denies. - Social history:: Smoking status: Patient reports the use of cigarette tobacco products, smokes one-half pack cigarettes per day. Screenin:20 Abuse screen: Denies threats or abuse. Denies injuries from another. Nutritional ss screening: No deficits noted. Assessment: 08:20 General: Appears comfortable, Behavior is calm, cooperative. Pain: Complains of pain in ss right labia majora Pain currently is 4 out of 10 on a pain scale. Is continuous. Neuro: Level of Consciousness is awake, alert, obeys commands, Oriented to person, place, time, situation. Respiratory: Airway is patent Respiratory effort is even, unlabored, Respiratory pattern is regular, symmetrical. GI: Patient currently denies nausea. Derm: Skin is intact, is healthy with good turgor, Skin is dry, Skin is pink, warm \\T\\ dry. normal. Vital Signs: 08:14 BP 128 / 81; Pulse 98; Resp 18; Temp 98.6(O); Pulse Ox 100% on R/A; Weight 86.64 kg; ss Height 5 ft. 7 in. ; Pain 4/10; 08:14 Body Mass Index 29.91 (86.64 kg, 170.18 cm) ss 08:14 Pain Scale: Adult ss ED Course: 07:59 Patient arrived in ED. im 08:02 Mago Ng PA-C is PHCP. sb4 08:02 Jerilyn Mitchell MD is Attending Physician. sb4 08:02 Mago Ng PA-C is PHCP. sb4 08:02 Jerilyn Mitchell MD is Attending Physician. sb4 08:16 Triage completed. ss 08:16 Arm band placed on right wrist. ss 08:20 Samira Crespo, RN is Primary Nurse. ss 08:20 Patient has correct armband on for positive identification. ss 08:22 No provider procedures requiring assistance completed. Patient did not have IV access ss during this emergency room visit. Administered Medications: No medications were administered Medication: 08:20 VIS not applicable for this client. ss Outcome: 08:14 Discharge ordered by . sb4 08:22 Discharged to home ambulatory, ss 08:22 Condition: good 08:22 Discharge instructions given to patient, Instructed on discharge instructions, follow up and referral plans. medication usage, Demonstrated understanding of instructions, follow-up care, medications, Prescriptions given X 2, 08:22 Patient left the ED. ss Signatures: Samira Crespo RN RN Mago Ng PA-C PA-C sb4 Vilma Tubbs im
[2025-06-07 08:27] VITALS: BP 128/81; TEMP 98.6; O2SAT 100
== END 2025-06-07 08:22 | disposition home or self-care (01) ==
LOC: ER 07:57
DX: L73.8 Other specified follicular disorders (principal)
CPT/HCPCS: 99283